=== PATIENT | female | born 1945 | race African-American/Black ===

== ENCOUNTER 2018-04-27 01:27 | Inpatient (IN) | payer MEDICARE ==
--- NOTE | 2018-04-27 01:42 | ED ---
SOB HPI - General Chief Complaint: Shortness of Breath Stated Complaint: SOB/COPD Time Seen by Provider: 04/27/18 01:41 Source: patient Mode of arrival: wheelchair Limitations: no limitations - History of Present Illness Initial Comments: That he is a pleasant 72-year-old -[place] female with a history of COPD who presents to the emergency department today for evaluation of persistent wheezing and shortness of breath despite using breathing treatments at home. Approximate 2 weeks ago patient moved back to [place] from [facility]. She reports that prior to moving she was having trouble breathing and was diagnosed with COPD exacerbation she was prescribed a 5 day course of oral prednisone which she took with minimal improvement. She reports that since returning to [place] she's had persistent shortness of breath and wheezing. Today she began experiencing pleuritic like chest pain and pain with deep inspiration which prompted her to come to the ER for reevaluation. Chest pain. She denies any cardiac history. - Related Data Allergies Allergy/AdvReac Type Severity Reaction Status Date / Time levofloxacin Allergy Swelling Verified 04/27/18 01:38 Review of Systems ROS Statement: Those systems with pertinent positive or pertinent negative responses have been documented in the HPI. ROS Other: All systems not noted in ROS Statement are negative. Past Medical History Past Medical History: Asthma, COPD, Hyperlipidemia, Hypertension History of Any Multi-Drug Resistant Organisms: None Reported Past Surgical History: Back Surgery, Orthopedic Surgery Additional Past Surgical History / Comment(s): abdominal , shoulder Past Psychological History: Anxiety Smoking Status: Never smoker Past Alcohol Use History: None Reported Past Drug Use History: None Reported General Exam - General Exam Comments Initial Comments: Physical Exam GENERAL: Patient is well-developed and well-nourished. Patient is nontoxic and well-hydrated and is in no distress. HENT: Normocephalic, Atraumatic. EYES: PERRL, EOMI PULMONARY: Mild expiratory wheezing in all lung shea CARDIOVASCULAR: There is a regular rate and rhythm without any murmurs gallops or rubs. No lower extremity edema ABDOMEN: Soft and nontender with normal bowel sounds. SKIN: Skin is clear with no lesions or rashes and otherwise unremarkable. : Deferred NEUROLOGIC: Patient is alert and oriented x3. Moving all extremities spontaneously MUSCULOSKELETAL: Normal extremities with adequate strength and full range of motion. No lower extremity swelling or edema. No calf tenderness. PSYCHIATRIC: Normal psychiatric evaluation. Limitations: no limitations Limitations: no limitations Course Vital Signs 04/27/18 04/27/18 04/27/18 01:33 02:22 02:30 Temperature 98.6 F Pulse Rate 81 81 81 Respiratory 16 Rate Blood Pressure 156/85 O2 Sat by Pulse 100 Oximetry 04/27/18 04/27/18 04:30 04:48 Temperature 98.7 F Pulse Rate 87 Respiratory 16 22 Rate Blood Pressure 130/87 O2 Sat by Pulse 100 Oximetry Medical Decision Making - Medical Decision Making Patient was seen and evaluated history is obtained from patient and daughter at bedside This is 70-year-old female COPD who was recently [place] and has persistent symptoms despite compliance with a prednisone Dosepak Patient had 2 breathing treatments prior to arrival History and physical exam are concerning for COPD exacerbation with expiratory wheezing and all lung shea. Given patient's advanced age history of hypertension hyperlipidemia and being prescribed Lasix in the past I will order an EKG to evaluate for any acute cardiac events EKG was obtained at 1:55 AM, rate is 85 rhythm is sinus this revealed PVCs, there is normal axis there are normal intervals, NV 138, QRS 76, QTC 4:30 there are no acute ST elevations or depressions Chest x-ray with no acute findings aside labs were relatively unremarkable Patient had persistent wheezing after breathing treatments she still has subje ctive shortness of breath but was never hypoxic tachycardic or tachypneic At this time I feel the patient suffering from CHF as well as COPD. Given that the patient is new to the area does not have established primary care cardiology or pulmonology do feel would be dangerous to discharge her home. At this time I will place the patient in observation for CHF and COPD exacerbations. We'll order [id number] DuoNeb's dose of Lasix and consults to cardiology and pulmonology. - Lab Data Result diagrams: 04/27/18 01:56 04/27/18 01:56 Lab Results 04/27/18 04/27/18 04/27/18 Range/Units 01:56 01:56 01:56 WBC 7.7 (3.8-10.6) k/uL RBC 3.68 L (3.80-5.40) m/uL Hgb 11.6 (11.4-16.0) gm/dL Hct 36.8 (34.0-46.0) % MCV 100.1 H (80.0-100.0) fL MCH 31.6 (25.0-35.0) pg MCHC 31.6 (31.0-37.0) g/dL RDW 15.4 (11.5-15.5) % Plt Count 258 (150-450) k/uL Neutrophils % 90 % Lymphocytes % 5 % Monocytes % 4 % Eosinophils % 1 % Basophils % 0 % Neutrophils # 6.9 (1.3-7.7) k/uL Lymphocytes # 0.4 L (1.0-4.8) k/uL Monocytes # 0.3 (0-1.0) k/uL Eosinophils # 0.1 (0-0.7) k/uL Basophils # 0.0 (0-0.2) k/uL Macrocytosis Slight PT (9.0-12.0) sec INR (<1.2) APTT (22.0-30.0) sec Sodium 140 (137-145) mmol/L Potassium 3.7 (3.5-5.1) mmol/L Chloride 108 H (98-107) mmol/L Carbon Dioxide 23 (22-30) mmol/L Anion Gap 9 mmol/L BUN 17 (7-17) mg/dL Creatinine 1.02 (0.52-1.04) mg/dL Est GFR (CKD-EPI)AfAm 64 (>60 ml/min/1.73 sqM) Est GFR (CKD-EPI)NonAf 55 (>60 ml/min/1.73 sqM) Glucose 97 (74-99) mg/dL Calcium 10.6 H (8.4-10.2) mg/dL Total Bilirubin 0.4 (0.2-1.3) mg/dL AST 16 (14-36) U/L ALT 13 (9-52) U/L Alkaline Phosphatase 66 (38-126) U/L Troponin I (0.000-0.034) ng/mL NT-Pro-B Natriuret Pep 1290 pg/mL Total Protein 6.7 (6.3-8.2) g/dL Albumin 3.7 (3.5-5.0) g/dL 04/27/18 04/27/18 Range/Units 01:56 01:56 WBC (3.8-10.6) k/uL RBC (3.80-5.40) m/uL Hgb (11.4-16.0) gm/dL Hct (34.0-46.0) % MCV (80.0-100.0) fL MCH (25.0-35.0) pg MCHC (31.0-37.0) g/dL RDW (11.5-15.5) % Plt Count (150-450) k/uL Neutrophils % % Lymphocytes % % Monocytes % % Eosinophils % % Basophils % % Neutrophils # (1.3-7.7) k/uL Lymphocytes # (1.0-4.8) k/uL Monocytes # (0-1.0) k/uL Eosinophils # (0-0.7) k/uL Basophils # (0-0.2) k/uL Macrocytosis PT 9.9 (9.0-12.0) sec INR 0.9 (<1.2) APTT 23.1 (22.0-30.0) sec Sodium (137-145) mmol/L Potassium (3.5-5.1) mmol/L Chloride (98-107) mmol/L Carbon Dioxide (22-30) mmol/L Anion Gap mmol/L BUN (7-17) mg/dL Creatinine (0.52-1.04) mg/dL Est GFR (CKD-EPI)AfAm (>60 ml/min/1.73 sqM) Est GFR (CKD-EPI)NonAf (>60 ml/min/1.73 sqM) Glucose (74-99) mg/dL Calcium (8.4-10.2) mg/dL Total Bilirubin (0.2-1.3) mg/dL AST (14-36) U/L ALT (9-52) U/L Alkaline Phosphatase (38-126) U/L Troponin I <0.012 (0.000-0.034) ng/mL NT-Pro-B Natriuret Pep pg/mL Total Protein (6.3-8.2) g/dL Albumin (3.5-5.0) g/dL Disposition Clinical Impression: Congestive heart failure, Acute exacerbation of chronic obstructive airways disease Disposition: ADMITTED IP TO THIS HOSP Condition: Stable Is patient prescribed a controlled substance at d/c from ED?: No
[2018-04-27] MEDS ORDERED: IPRATROPIUM-ALBUTEROL 3 ML NEB INHALATION STA (02:00)
[2018-04-27 02:24] LABS: Basophils % (A) 0 %; Eosinophils # (A) 0.1 k/uL (0-0.7); Eosinophils % (A) 1 %; HCT 36.8 % (34.0-46.0); HGB 11.6 gm/dL (11.4-16.0); Lymphocytes # (A) 0.4 k/uL (1.0-4.8); Lymphocytes % (A) 5 %; MCH 31.6 pg (25.0-35.0); MCHC 31.6 g/dL (31.0-37.0); MCV 100.1 fL (80.0-100.0); Macrocytosis Slight; Monocytes # (A) 0.3 k/uL (0-1.0); Monocytes % (A) 4 %; Neutrophils # (A) 6.9 k/uL (1.3-7.7); Neutrophils % (A) 90 %; Platelet Count 258 k/uL (150-450); RBC 3.68 m/uL (3.80-5.40); RDW 15.4 % (11.5-15.5); WBC 7.7 k/uL (3.8-10.6)
--- NOTE | 2018-04-27 02:27 | XR ---
EXAM: XR Chest, 2 Views CLINICAL HISTORY: difficulty breathing TECHNIQUE: Frontal and lateral views of the chest. COMPARISON: No relevant prior studies available. FINDINGS: Lungs: No focal consolidative process. No evidence of failure or edema. Pleural space: Unremarkable. No pleural effusions. No pneumothorax. Heart: Unremarkable. No cardiomegaly. Mediastinum: Unremarkable. Bones/joints: Dextroscoliosis. Vasculature: Tortuous/ectatic thoracic aorta with atherosclerotic disease IMPRESSION: No focal consolidative process or pleural effusions. Tortuous/ectatic thoracic aorta with atherosclerotic disease. No evidence of edema or failure.
[2018-04-27 02:40] LABS: INR 0.9 (<1.2); Partial Thromboplastin Time 23.1 sec (22.0-30.0); Prothrombin Time 9.9 sec (9.0-12.0)
[2018-04-27 03:02] LABS: Albumin 3.7 g/dL (3.5-5.0); Calcium 10.6 mg/dL (8.4-10.2); Potassium 3.7 mmol/L (3.5-5.1); Total Bilirubin 0.4 mg/dL (0.2-1.3); Total Protein 6.7 g/dL (6.3-8.2)
[2018-04-27] MEDS ORDERED: LORazepam 0.5 MG TAB PO STA (06:08)
[2018-04-27] MEDS ORDERED: ACETAMINOPHEN TAB 325 MG TAB PO STA (06:08)
[2018-04-27] MEDS ORDERED: predniSONE 20 MG TAB PO SCH (09:00)
[2018-04-27] MEDS ORDERED: ALBUTEROL INHALER 60 PUFF/8 GM INHALER INHALATION PRN (11:42)
[2018-04-27] MEDS ORDERED: TIOTROPIUM BROMIDE INHALATION PRN (11:42)
[2018-04-27] MEDS: IPRATROPIUM-ALBUTEROL 3 ML NEB INHALATION PRN ×2 (11:58→16:16)
[2018-04-27] MEDS ORDERED: ASPIRIN-ACET-CAFF 250-250-65MG 1 EACH TAB PO PRN (13:00)
--- NOTE | 2018-04-27 14:20 | ECHOF ---
Referral Reason:CHF MEASUREMENTS -------- HEIGHT: 165.1 cm WEIGHT: 63.5 kg BP: 145/84 RVIDd: 2.8 cm (< 3.3) IVSd: 1.0 cm (0.6 - 1.1) LVIDd: 3.9 cm (3.9 - 5.3) LVPWd: 1.0 cm (0.6 - 1.1) IVSs: 1.4 cm LVIDs: 2.9 cm LVPWs: 1.5 cm LA Diam: 4.3 cm (2.7 - 3.8) LAESV Index (A-L): 24.61 ml/m Ao Diam: 3.7 cm (2.0 - 3.7) AV Cusp: 1.5 cm (1.5 - 2.6) LA Diam: 3.2 cm (2.7 - 3.8) MV EXCURSION: 15.618 mm (> 18.000) MV EF SLOPE: 60 mm/s (70 - 150) EPSS: 0.6 cm MV E Jonathan: 0.73 m/s MV DecT: 257 ms MV A Jonathan: 0.76 m/s MV E/A Ratio: 0.96 RAP: 5.00 mmHg RVSP: 27.81 mmHg FINDINGS -------- Sinus rhythm. This was a technically good study. LV size, wall thickness and systolic function are normal, with an EF greater than 55%. The left dimitri tricular size is normal. The right ventricle is normal in size. The left atrium is mildly dilated. LA is midly dilated 29-33ml/m2. The right atrial size is normal. There is mild aortic valve sclerosis. There is no evidence of aortic regurgitation. Mild mitral annular calcification present. Mild mitral regurgitation is present. Mild tricuspid regurgitation present. There is no evidence of pulmonary hypertension. The right v entricular systolic pressure, as measured by Doppler, is 27.81mmHg. There is no pulmonic regurgitation present. The aortic root size is normal. Echo free space represents a pericardial fat pad. CONCLUSIONS -------- 1. LV size, wall thickness and systolic function are normal, with an EF greater than 55%. 2. The left ventricular size is normal. 3. The right ventricle is normal in size. 4. The left atrium is mildly dilated. 5. LA is midly dilated 29-33ml/m2. 6. The right atrial size is normal. 7. There is mild aortic valve sclerosis. 8. Mild mitral annular calcification present. 9. Mild mitral regurgitation is present. 10. Mild tricuspid regurgitation present. 11. There is no evidence of pulmonary hypertension. 12. The right ventricular systolic pressure, as measured by Doppler, is 27.81mmHg. 13. There is no pulmonic regurgitation present. 14. The aortic root size is normal. 15. Echo free space represents a pericardial fat pad. SENIOR PROGRAM PLANNER: Angeline Rodrigues RDCS
--- NOTE | 2018-04-27 14:55 | P.CRDCN ---
History of Present Illness History of present illness: This is a pleasant 72-year-old -Thai female past medical history significant for hypertension, asthma, COPD and dyslipidemia. 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 We've been asked to see her in consultation for suspicion of heart failure. The patient recently moved here from [place] and is staying with her 2 sisters. They brought her to the hospital secondary to shortness of breath, wheezing and altered mental status. Apparently in [place] she had been diagnosed with dementia. Her sisters are concerned that she is not eating and has had significant weight loss in the previous month and appears to her mental status has deteriorated significantly over a short period of time. Surgery also voicing concern about her medication profile and states that she is on too many medications and our concern that this may be causing her mental state. The patient states that she has been feeling short of breath over the previous 2 days and has been using nebulizers as well as updrafts with no significant relief of her shortness of breath. At times and she is coughing are trying to take in a deep breath she feels discomfort in her chest that is pleuritic in nature. She denies exertional chest discomfort. She denies associated dizziness, palpitations, nausea, vomiting or diaphoresis. She denies PND, orthopnea, fever or chills at home. EKG reveals sinus mechanism with ST and T wave abnormalities noted in the precordial leads. Heart rate of 85. There is no old for comparison. Chest x-ray is negative for an acute cardiopulmonary process no evidence of edema or failure. Laboratory data reviewed, WBC 7.7, hemoglobin 11.6, platelets 258, sodium 140, potassium 3.7, creatinine 1.02, cardiac enzymes negative 1, NT proBNP 1290. Current cardiac medications include aspirin 81 mg daily, diltiazem 300 mg daily, lovastatin 20 mg daily, Bumex 0.5 mg daily and metoprolol 25 mg daily. Echocardiogram obtained reveals preserved left ventricular systolic function with ejection fraction 55%, mild aortic valve sclerosis, mild mitral regurgitation and mild tricuspid regurgitation. At the time of my exam: CONSTITUTIONAL: Denies fever. Denies chills. EYES: Denies blurred vision. Denies vision changes. Denies eye pain. EARS, NOSE, MOUTH & THROAT: Denies headache. Denies sore throat. Denies ear pain. CARDIOVASCULAR: Denies chest pain. Complains of shortness of breath. Denies orthopnea. Denies PND. Denies palpitations. RESPIRATORY: Denies cough. GASTROINTESTINAL: Denies abdominal pain. Denies diarrhea. Denies constipation. Denies nausea. Denies vomiting. MUSCULOSKELETAL: Denies myalgias. INTEGUMENTARY: Denies pruitis. Denies rash. NEUROLOGIC: Denies numbness. Denies tingling. Denies weakness. PSYCHIATRIC: Denies anxiety. Denies depression. ENDOCRINE: Denies fatigue. Denies weight change. Denies polydipsia. Denies polyurina. GENITOURINARY: Denies burning, hematuria or urgency with micturation. HEMATOLOGIC: Denies history of anemia. Denies bleeding. Blood pressure 150/84 heart rate 70 afebrile maintaining oxygen saturation on room air GENERAL: This is a 72-year-old -Thai female in no apparent distress at the time of my examination. HEENT: Head is atraumatic, normocephalic. Pupils are equal, round. Sclerae anicteric. Conjunctivae are clear. Mucous membranes of the mouth are moist. Neck is supple. There is no jugular venous distention. No carotid bruit is heard. LUNGS: Course rhonchi with faint expiratory wheeze noted throughout. No rales. No chest wall tenderness is noted on palpation or with deep breathing. HEART: Regular rate and rhythm without murmurs, rubs or gallops. S1 and S2 heard. ABDOMEN: Soft, nontender. Bowel sounds are heard. No organomegaly noted. EXTREMITIES: No evidence of peripheral edema and no calf tenderness noted. VASCULAR: Radial and dorsalis pedis pulses palpated, no evidence of clubbing. NEUROLOGIC: Patient is awake, alert and oriented x3. ASSESSMENT Acute exacerbation of chronic COPD and asthma Hypertension Dyslipidemia Dementia with worsening altered mental status PLAN Clinically the patient is euvolemic with no evidence of fluid overload in the lungs or in the lower extremities. There is no JVD, PND or orthopnea. NTproBNP within normal limits for the patient's age. Check lipid profile. Thank you kindly for this consultation. Ongoing medical management per primary care team of altered mental status. Nurse Practitioner note has been reviewed, I agree with a documented findings and plan of care. Patient was seen and examined. Past Medical History Past Medical History: Asthma, COPD, Hyperlipidemia, Hypertension History of Any Multi-Drug Resistant Organisms: None Reported Past Surgical History: Back Surgery, Orthopedic Surgery Additional Past Surgical History / Comment(s): abdominal , shoulder Past Psychological History: Anxiety Smoking Status: Never smoker Past Alcohol Use History: None Reported Past Drug Use History: None Reported - Past Family History Mother Family Medical History: Hypertension Medications and Allergies Home Medications Medication Instructions Recorded Confirmed Type Albuterol Inhaler [Ventolin Hfa 2 puff INHALATION RT-Q6H PRN 04/27/18 04/27/18 History Inhaler] Aspirin EC [Ecotrin Low Dose] 81 mg PO DAILY 04/27/18 04/27/18 History Aspirin/Acetaminophen/Caffeine 1 tab PO BID PRN 04/27/18 04/27/18 History [Excedrin Migraine Caplet] Budesonide/Formoterol Fumarate 2 puff INHALATION RT-BID 04/27/18 04/27/18 History [Symbicort 160-4.5 Mcg Inhaler] Bumetanide 0.5 mg PO DAILY 04/27/18 04/27/18 History Diltiazem HCl [Cartia Xt] 300 mg PO DAILY 04/27/18 04/27/18 History Donepezil [Aricept] 5 mg PO HS 04/27/18 04/27/18 History Ferrous Sulfate [Feosol] 325 mg PO BID 04/27/18 04/27/18 History Fluticasone Nasal [place] [Flonase 1 spray EA NOSTRIL DAILY 04/27/18 04/27/18 History Nasal [place]] Loratadine [Claritin] 10 mg PO DAILY 04/27/18 04/27/18 History Lovastatin [Mevacor] 20 mg PO HS 04/27/18 04/27/18 History Megestrol Acetate 20 mg PO TID 04/27/18 04/27/18 History Metoprolol Tartrate 25 mg PO DAILY 04/27/18 04/27/18 History Naproxen [Naprosyn] 375 mg PO Q12HR PRN 04/27/18 04/27/18 History Pantoprazole Sodium 40 mg PO DAILY 04/27/18 04/27/18 History Tiotropium Bullard [Spiriva 1 spray INHALATION RT-DAILY PRN 04/27/18 04/27/18 History Respimat] busPIRone HCL 15 mg PO BID 04/27/18 04/27/18 History Allergies Allergy/AdvReac Type Severity Reaction Status Date / Time levofloxacin Allergy Swelling Verified 04/27/18 01:38 Physical Exam Vitals: Vital Signs Temp Pulse Pulse Resp BP BP Pulse Ox 04/27/18 12:10 77 04/27/18 11:59 75 04/27/18 06:36 97.9 F 70 20 150/84 100 04/27/18 06:20 98.3 F 70 18 100 04/27/18 04:48 22 04/27/18 04:30 98.7 F 87 16 130/87 100 04/27/18 02:30 81 04/27/18 02:22 81 04/27/18 01:33 98.6 F 81 16 156/85 100 Intake and Output 04/26/18 04/27/18 04/27/18 22:59 06:59 14:59 Intake Total 354 Balance 354 Intake: Oral 354 Other: # Voids 1 Weight 63.503 kg Results 04/27/18 01:56 04/27/18 01:56 Cardiac Enzymes 04/27/18 04/27/18 Range/Units 01:56 01:56 AST 16 (14-36) U/L Troponin I <0.012 (0.000-0.034) ng/mL Coagulation 04/27/18 Range/Units 01:56 PT 9.9 (9.0-12.0) sec APTT 23.1 (22.0-30.0) sec CBC 04/27/18 Range/Units 01:56 WBC 7.7 (3.8-10.6) k/uL RBC 3.68 L (3.80-5.40) m/uL Hgb 11.6 (11.4-16.0) gm/dL Hct 36.8 (34.0-46.0) % Plt Count 258 (150-450) k/uL Comprehensive Metabolic Panel 04/27/18 Range/Units 01:56 Sodium 140 (137-145) mmol/L Potassium 3.7 (3.5-5.1) mmol/L Chloride 108 H (98-107) mmol/L Carbon Dioxide 23 (22-30) mmol/L BUN 17 (7-17) mg/dL Creatinine 1.02 (0.52-1.04) mg/dL Glucose 97 (74-99) mg/dL Calcium 10.6 H (8.4-10.2) mg/dL AST 16 (14-36) U/L ALT 13 (9-52) U/L Alkaline Phosphatase 66 (38-126) U/L Total Protein 6.7 (6.3-8.2) g/dL Albumin 3.7 (3.5-5.0) g/dL Current Medications Generic Name Dose Route Start Last Admin Trade Name Freq PRN Reason Stop Dose Admin Acetaminophen/Aspirin/Caffeine 1 each 04/27/18 13:00 Excedrin PO BID PRN MIGRAINE HEADACHE Albuterol/Ipratropium 3 ml 04/27/18 05:13 04/27/18 11:58 Duoneb 0.5 Mg-3 Mg/3 Ml Soln INHALATION 3 ml RT-Q4H PRN Administration Shortness Of Breath Or Wheezing Aspirin 81 mg 04/28/18 09:00 Aspirin PO DAILY [facility] Atorvastatin Calcium 10 mg 04/27/18 21:00 Lipitor PO HS [facility] Budesonide 0.5 mg 04/27/18 20:00 Pulmicort INHALATION RT-BID [facility] Bumetanide 0.5 mg 04/28/18 09:00 Bumetanide PO DAILY [facility] Buspirone HCl 15 mg 04/27/18 21:00 Buspar PO BID [facility] Diltiazem HCl 300 mg 04/28/18 09:00 Cardizem Cd PO DAILY [facility] Donepezil HCl 5 mg 04/27/18 21:00 Aricept PO HS [facility] Ferrous Sulfate 325 mg 04/27/18 21:00 Feosol PO BID [facility] Fluticasone Propionate 1 spray 04/28/18 09:00 Flonase Nasal [place] EA NOSTRIL DAILY [facility] Formoterol Fumarate 20 mcg 04/27/18 20:00 Perforomist INHALATION RT-BID [facility] Loratadine 10 mg 04/28/18 09:00 Claritin PO DAILY [facility] Megestrol Acetate 20 mg 04/27/18 16:00 Megace PO TID [facility] Methylprednisolone Sodium Succinate 60 mg 04/27/18 13:45 Solu-Medrol IV Q6HR [facility] Metoprolol Tartrate 25 mg 04/28/18 09:00 Lopressor PO DAILY [facility] Naproxen 375 mg 04/27/18 11:42 Naprosyn PO Q12HR PRN Pain Pantoprazole Sodium 40 mg 04/28/18 07:30 Protonix PO AC-BRKFST MACI Prednisone 40 mg 04/27/18 09:00 04/27/18 11:00 PO 40 mg DAILY MACI Administration Intake and Output 04/26/18 04/27/18 04/27/18 22:59 06:59 14:59 Intake Total 354 Balance 354 Intake: Oral 354 Other: # Voids 1 Weight 63.503 kg 04/27/18 01:56 04/27/18 01:56
[2018-04-27] MEDS: MEGESTROL 40 MG TAB PO SCH ×2 (15:08→22:11)
[2018-04-27] MEDS: methylPREDNISolone SOD SUCCI 125 MG/2 ML VIAL IV SCH ×3 (15:08→23:21)
[2018-04-27 15:11] LABS: Cholesterol 194 mg/dL (<200); HDL Cholesterol 51 mg/dL (40-60); LDL Cholesterol,Calculated 127 mg/dL (0-99); Triglycerides 80 mg/dL (<150)
--- NOTE | 2018-04-27 17:36 | P.CNPUL ---
History of Present Illness Consult date: 04/27/18 Requesting physician: Beni Rose Reason for consult: dyspnea, COPD Chief complaint: Shortness of breath, cough, congestion History of present illness: Is a very pleasant 72-year-old female patient who was recently moved here to [place] from [facility]. She plans to establish with Dr. 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 She has a history of asthma/COPD and is prednisone dependent. His been maintained on Symbicort, Spiriva and albuterol. She also has a history of hyperlipidemia, hypertension, anxiety, dementia. She is a lifelong nonsmoker. She presented here to the emergency room yesterday with complaints of increasing shortness of breath, cough and congestion. His x-ray shows no focal consolidation or pleural effusions. No evidence of edema or failure. There is tortuous/ectatic thoracic aorta with atherosclerotic disease. Echocardiogram reveals preserved left ventricular systolic function with ejection fraction greater than 55%. White count 7.7. Hemoglobin 11.6. Creatinine 1.02. Troponin negative. ProBNP 1290. She is seen today in consultation on the regular medical floor. She is awake and alert in no acute distress. She is breathing a bit easier today as compared to yesterday. No significant cough or congestion. No fever, chills or night sweats. He is maintaining O2 saturations in the low 90s on room air. She's been afebrile. Hemodynamically stable. Review of Systems REVIEW OF SYSTEMS: CONSTITUTIONAL: Denies any recent significant weight loss or weight gain. EYES: Denies change in vision. EARS, NOSE, MOUTH, THROAT: Denies headaches, denies sore throat. CARDIOVASCULAR: Denies chest pain, palpitations or syncopal episodes. RESPIRATORY: Positive for shortness of breath, cough, congestion no hemoptysis. GASTROINTESTINAL: Denies change in appetite, denies abdominal pain GENITOURINARY: Denies hematuria, denies infections. MUSKULOSKELETAL: Denies pain, denies swelling. INTEGUMENTARY: Denies rash, denies eczema. NEUROLOGICAL: Denies recent memory loss, no recent seizure activity. PSYCHIATRIC: Denies anxiety, denies depression. HEMATOLOGIC/LYMPHATIC: Denies anemia, denies enlarged lymph nodes. Past Medical History Past Medical History: Asthma, COPD, Hyperlipidemia, Hypertension History of Any Multi-Drug Resistant Organisms: None Reported Past Surgical History: Back Surgery, Orthopedic Surgery Additional Past Surgical History / Comment(s): abdominal , shoulder Past Psychological History: Anxiety Smoking Status: Never smoker Past Alcohol Use History: None Reported Past Drug Use History: None Reported - Past Family History Mother Family Medical History: Hypertension Medications and Allergies Home Medications Medication Instructions Recorded Confirmed Type Albuterol Inhaler [Ventolin Hfa 2 puff INHALATION RT-Q6H PRN 04/27/18 04/27/18 History Inhaler] Aspirin EC [Ecotrin Low Dose] 81 mg PO DAILY 04/27/18 04/27/18 History Aspirin/Acetaminophen/Caffeine 1 tab PO BID PRN 04/27/18 04/27/18 History [Excedrin Migraine Caplet] Budesonide/Formoterol Fumarate 2 puff INHALATION RT-BID 04/27/18 04/27/18 History [Symbicort 160-4.5 Mcg Inhaler] Bumetanide 0.5 mg PO DAILY 04/27/18 04/27/18 History Diltiazem HCl [Cartia Xt] 300 mg PO DAILY 04/27/18 04/27/18 History Donepezil [Aricept] 5 mg PO HS 04/27/18 04/27/18 History Ferrous Sulfate [Feosol] 325 mg PO BID 04/27/18 04/27/18 History Fluticasone Nasal [place] [Flonase 1 spray EA NOSTRIL DAILY 04/27/18 04/27/18 History Nasal [place]] Loratadine [Claritin] 10 mg PO DAILY 04/27/18 04/27/18 History Lovastatin [Mevacor] 20 mg PO HS 04/27/18 04/27/18 History Megestrol Acetate 20 mg PO TID 04/27/18 04/27/18 History Metoprolol Tartrate 25 mg PO DAILY 04/27/18 04/27/18 History Naproxen [Naprosyn] 375 mg PO Q12HR PRN 04/27/18 04/27/18 History Pantoprazole Sodium 40 mg PO DAILY 04/27/18 04/27/18 History Tiotropium [place] [Spiriva 1 spray INHALATION RT-DAILY PRN 04/27/18 04/27/18 History Respimat] busPIRone HCL 15 mg PO BID 04/27/18 04/27/18 History Allergies Allergy/AdvReac Type Severity Reaction Status Date / Time levofloxacin Allergy Swelling Verified 04/27/18 01:38 Physical Exam Vitals: Vital Signs Temp Pulse Pulse Resp BP BP Pulse Ox 04/27/18 16:28 81 16 04/27/18 16:16 82 16 04/27/18 15:00 98.9 F 83 16 150/82 91 L 04/27/18 12:10 77 04/27/18 11:59 75 04/27/18 06:36 97.9 F 70 20 150/84 100 04/27/18 06:20 98.3 F 70 18 100 04/27/18 04:48 22 04/27/18 04:30 98.7 F 87 16 130/87 100 04/27/18 02:30 81 04/27/18 02:22 81 04/27/18 01:33 98.6 F 81 16 156/85 100 Intake and Output 04/27/18 04/27/18 04/27/18 06:59 14:59 22:59 Intake Total 354 Balance 354 Intake: Oral 354 Other: # Voids 1 Weight 63.503 kg 72 kg 63.503 kg GENERAL EXAM: Alert, active, comfortable in no apparent distress. Room air. HEAD: Normocephalic. EYES: Normal reaction of pupils, equal size. NOSE: Clear with pink turbinates. THROAT: No erythema or exudates. NECK: No masses, no JVD. CHEST: No chest wall deformity. LUNGS: Equal air entry with end expiratory wheeze, diminished CVS: S1 and S2 normal with no audible murmur, regular rhythm. ABDOMEN: No hepatosplenomegaly, normal bowel sounds, no guarding or rigidity. SPINE: No scoliosis or deformity SKIN: No rashes CENTRAL NERVOUS SYSTEM: No focal deficits, tone is normal in all 4 extremities. EXTREMITIES: There is no peripheral edema. No clubbing, no cyanosis. Peripheral pulses are intact. Results - Laboratory Findings CBC and BMP: 04/27/18 01:56 04/27/18 01:56 PT/INR, D-dimer PT 9.9 sec (9.0-12.0) 04/27/18 01:56 INR 0.9 (<1.2) 04/27/18 01:56 Abnormal lab findings: Abnormal Labs 04/27/18 04/27/18 04/27/18 01:56 01:56 01:56 RBC 3.68 L MCV 100.1 H Lymphocytes # 0.4 L Chloride 108 H Calcium 10.6 H LDL Cholesterol, Calc 127 H - Diagnostic Findings Chest x-ray: image reviewed (No acute pulmonary process.) Assessment and Plan Assessment: Impression: #1 Acute exacerbation of moderate persistent chronic bronchial asthma and chronic obstructive pulmonary disease in a lifelong nonsmoker however was exposed to secondhand smoke most of her life as well as 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 #2 Acute exacerbation of mild suspected chronic diastolic congestive heart failure. #3 Hypertension. #4 Hyperlipidemia. #5 History of dementia. #6 Anxiety. Plan: The patient was seen and evaluated by Dr. Marquez. Chest x-ray and labs were reviewed. We'll go ahead and treat her for her COPD exacerbation including IV Solu-Medrol, DuoNeb inhalations, Pulmicort and Perforomist inhalations. She would benefit from a outpatient workup in our office including pulmonary function testing to evaluate the severity of her suspected asthma/COPD and make further recommendations regarding maintenance medications. In the interim, we'll increase her activity as tolerated. We'll continue to follow and make further recommendations based on her clinical status. I, the cosigning physician, performed a history & physical examination of the patient. Lungs sounds bilateral end expiratory wheeze, few scattered rhonchi. Maintaining good O2 saturations in the 90s on room air. I discussed the assessment and plan of care with my nurse practitioner, Estelle Dumont. I attest to the above consultation as dictated by her. Time with Patient: Greater than 30
--- NOTE | 2018-04-27 19:28 | HP ---
HISTORY AND PHYSICAL DATE OF ADMISSION: 04/27/2018 DATE OF SERVICE: 04/27/2018 PRESENTING COMPLAINT: Short of breath, cough. HISTORY OF PRESENTING COMPLAINT: A very pleasant 72-year-old patient has moved here from [place], living with her daughter. Now will be following with getting established with Dr. Snider as a family doctor. Chronic stable medical conditions include hypertension, hyperlipidemia, anxiety, depression, arthritis, and GERD and cognitive impairment for which she takes Aricept. The patient has longstanding asthma. For more than a week, the patient is becoming increasingly short of breath with cough with green-yellow sputum. No fevers. No chills. Decreased appetite. Tired, run down. Bowel movements okay and finally decided to present to the ER, was started on bronchodilators. The patient's sister at the bedside. REVIEW OF SYSTEMS: CONSTITUTIONAL: Tired, decreased appetite. HEENT as above. RESPIRATORY: As above. CARDIOVASCULAR: None. GASTROINTESTINAL: Heartburn. GENITOURINARY: None. MUSCULOSKELETAL: Arthritic pain in the back and hips. DERMATOLOGICAL, HEMATOLOGIC, LYMPHATICS: None. PSYCHIATRY: Forgetful, anxiety, depression controlled. NEUROLOGICAL: None. PAST MEDICAL HISTORY: Of asthma, hypertension, hyperlipidemia, anxiety, depression, GERD, arthritis, cognitive impairment. PAST SURGICAL HISTORY: Back surgery, abdominal and shoulder surgery. SOCIAL HISTORY: Never smoked. No alcohol. Used to live in [place], just moved to town a short time ago. Lives with daughter. FAMILY HISTORY: Hypertension. HOME MEDICATIONS: 1. Symbicort 160/4.5, 2 puffs b.i.d. 2. Spiriva 1 puff daily p.r.n. 3. Ventolin 2 puffs q.6h p.r.n. 4. Protonix 40 mg p.o. daily. 5. Naproxen 375 p.o. q.12. 6. Ventolin 2 puffs q.6h p.r.n. 7. Protonix 40 mg a day. 8. Naproxen 375 p.o. q.12h p.r.n. 9. Metoprolol 25 mg p.o. daily. 10.Megace 20 mg p.o. t.i.d. 11.Mevacor 20 mg at bedtime. 12.Claritin 10 mg p.o. daily. 13.Flonase 1 spray each nostril daily. 14.Buspirone 50 mg p.o. b.i.d. 15.Iron 325 p.o. b.i.d. 16.Cardia XT 300 mg p.o. daily. 17.Bumex 0.5 mg p.o. daily. 18.Aricept 5 mg q.h.s. 19.Aspirin 81 mg p.o. daily. ALLERGIES: LEVAQUIN. PHYSICAL EXAMINATION: VITAL SIGNS: Vital signs on presentation, temperature 98.6, pulse 80, respiration 16, blood pressure 156/85, pulse ox 100 percent on room air. GENERAL APPEARANCE: Average build lying in bed, tired appearing. EYES: Pupils are equal. Conjunctivae normal. HEENT: External appearance of nose and ears normal. Oral cavity normal. NECK: JVD not raised. Mass not palpable. RESPIRATORY: Effort increased. LUNGS: Decreased breath sounds. Prolonged expiration and wheezing. Some scattered crackles. CARDIOVASCULAR: 1st and 2nd sounds normal. No edema. ABDOMEN: Soft, nontender. Liver and spleen not palpable. LYMPHATICS: No lymph nodes palpable in the neck and axilla. PSYCHIATRY: The patient is able to answer questions, but forgetful. NEUROLOGICAL: Pupils equal. Cranial nerves grossly intact. Power and sensation grossly intact. INVESTIGATIONS: White count 7.7, hemoglobin 11.6, potassium 3.7. BUN and creatinine is normal. EKG tracing personally reviewed by me shows some flipped T-waves in the anterior leads. Chest x-ray film personally reviewed by me shows borderline cardiomegaly, questionable infiltrate. ASSESSMENT: 1. Acute exacerbation of moderate persistent asthma. The patient is a nonsmoker. 2. Acute tracheobronchitis. 3. Hyperlipidemia. 4. Essential hypertension. 5. Anxiety and depression, not otherwise specified. 6. Primary osteoarthritis multiple joints. 7. Gastroesophageal reflux disease. 8. Moderate cognitive impairment. PLAN: Home medications are resumed. Patient is started on bronchodilators and steroids, inhaled steroids. Lovenox for DVT prophylaxis. Care was discussed with the patient's daughter at bedside. Questions were answered. Copy to Dr. Snider. MMODL / MIRA: [id number] /
[2018-04-27] MEDS ORDERED: SYMBICORT 160-4.5 MCG INHALER INHALATION SCH (20:00)
[2018-04-27 20:11] LABS: Glucose,Whole Blood 140 mg/dL (75-99)
[2018-04-27] MEDS: FORMOTEROL FUMARATE 20 MCG/2 ML NEBU INHALATION SCH (20:52)
[2018-04-27] MEDS: IPRATROPIUM-ALBUTEROL 3 ML NEB INHALATION SCH (20:52)
[2018-04-27] MEDS: BUDESONIDE 0.5 MG/2 ML NEBU INHALATION SCH (20:52)
[2018-04-27] MEDS: ATORVASTATIN 10 MG TAB PO SCH (20:56)
[2018-04-27] MEDS: ENOXAPARIN 40 MG/0.4 ML SYRINGE SQ SCH (20:56)
[2018-04-27] MEDS: FERROUS SULFATE 325 MG TAB PO SCH (20:56)
[2018-04-27] MEDS: busPIRone HCl 5 MG TAB PO SCH (20:56)
[2018-04-27] MEDS: DONEPEZIL 5 MG TAB PO SCH (21:14)
[2018-04-27] MEDS: CEFDINIR 300 MG CAP PO SCH (21:14)
[2018-04-28] MEDS: IPRATROPIUM-ALBUTEROL 3 ML NEB INHALATION SCH ×6 (00:24→20:55)
[2018-04-28] MEDS: methylPREDNISolone SOD SUCCI 125 MG/2 ML VIAL IV SCH ×4 (05:31→23:19)
[2018-04-28] MEDS: FORMOTEROL FUMARATE 20 MCG/2 ML NEBU INHALATION SCH ×2 (08:04→20:55)
[2018-04-28] MEDS: BUDESONIDE 0.5 MG/2 ML NEBU INHALATION SCH ×2 (08:04→20:55)
[2018-04-28] MEDS: MEGESTROL 40 MG TAB PO SCH ×3 (08:40→22:01)
[2018-04-28] MEDS: CEFDINIR 300 MG CAP PO SCH ×2 (08:40→20:18)
[2018-04-28] MEDS: FERROUS SULFATE 325 MG TAB PO SCH ×2 (08:40→20:18)
[2018-04-28] MEDS: ENOXAPARIN 40 MG/0.4 ML SYRINGE SQ SCH (08:40)
[2018-04-28] MEDS: busPIRone HCl 5 MG TAB PO SCH ×2 (08:40→20:18)
[2018-04-28] MEDS: DILTIAZEM CD 300 MG CAP.ER.24H PO SCH (08:41)
[2018-04-28] MEDS: LORATADINE 10 MG TAB PO SCH (08:41)
[2018-04-28] MEDS: FLUTICASONE 50MCG/SPRAY NASAL 16GM EA NOSTRIL SCH (08:41)
[2018-04-28] MEDS: BUMETANIDE 0.5 MG TABLET PO SCH (08:41)
[2018-04-28] MEDS: ASPIRIN 81 MG PO SCH (08:41)
[2018-04-28] MEDS: PANTOPRAZOLE 40 MG TABLET PO SCH (08:41)
[2018-04-28] MEDS ORDERED: METOPROLOL TARTRATE 25 MG TAB PO SCH (09:00)
--- NOTE | 2018-04-28 16:50 | P.PN ---
Subjective Progress Note Date: 04/28/18 Principal diagnosis: Acute exacerbation of moderate persistent chronic bronchial asthma. Is a very pleasant 72-year-old female patient who was recently moved here to [place] from [facility]. She plans to establish with Dr. Snider and Dr. 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 She has a history of asthma/COPD and is prednisone dependent. His been maintained on Symbicort, Spiriva and albuterol. She also has a history of hyperlipidemia, hypertension, anxiety, dementia. She is a lifelong nonsmoker. She presented here to the emergency room yesterday with complaints of increasing shortness of breath, cough and congestion. His x-ray shows no focal consolidation or pleural effusions. No evidence of edema or failure. There is tortuous/ectatic thoracic aorta with atherosclerotic disease. Echocardiogram reveals preserved left ventricular systolic function with ejection fraction greater than 55%. White count 7.7. Hemoglobin 11.6. Creatinine 1.02. Troponin negative. ProBNP 1290. She is seen today in consultation on the regular medical floor. She is awake and alert in no acute distress. She is breathing a bit easier today as compared to yesterday. No significant cough or congestion. No fever, chills or night sweats. He is maintaining O2 saturations in the low 90s on room air. She's been afebrile. Hemodynamically stable. The patient is seen today 04/28/2018 in follow-up on the regular medical floor. She is currently awake and alert in no acute distress. Resting comfortably in bed. She is stating she is breathing better today as compared to yesterday. Not quite back to her baseline. She is maintaining good O2 saturations in the upper 90s on room air. She's afebrile. Hemodynamically stable. The patient is currently on DuoNeb inhalations, Pulmicort and Perforomist inhalations, IV Solu- Medrol and Omnicef. Objective - Vital Signs Vital signs: Vital Signs Temp 98.9 F 04/28/18 15:34 Pulse 75 04/28/18 15:34 Resp 19 04/28/18 15:34 BP 127/74 04/28/18 15:34 Pulse Ox 98 04/28/18 15:34 Intake & Output 04/27/18 04/28/18 04/28/18 18:59 06:59 18:59 Intake Total 354 280 Balance 354 280 Weight 63.503 kg 71.5 kg Intake: Oral 354 280 Other: Voiding Method Toilet # Voids 1 - Exam GENERAL EXAM: Alert, active, comfortable in no apparent distress. Room air. HEAD: Normocephalic. EYES: Normal reaction of pupils, equal size. NOSE: Clear with pink turbinates. THROAT: No erythema or exudates. NECK: No masses, no JVD. CHEST: No chest wall deformity. LUNGS: Equal air entry with end expiratory wheeze, diminished CVS: S1 and S2 normal with no audible murmur, regular rhythm. ABDOMEN: No hepatosplenomegaly, normal bowel sounds, no guarding or rigidity. SPINE: No scoliosis or deformity SKIN: No rashes CENTRAL NERVOUS SYSTEM: No focal deficits, tone is normal in all 4 extremities. EXTREMITIES: There is no peripheral edema. No clubbing, no cyanosis. Peripheral pulses are intact. 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 #2 Acute exacerbation of mild suspected chronic diastolic congestive heart failure. #3 Hypertension. #4 Hyperlipidemia. #5 History of dementia. #6 Anxiety. Plan: The patient was seen and evaluated by Dr. Marquez. She is improved today as compared to yesterday. Continue with current treatment plan. We'll continue to follow and make further recommendations based on her clinical status. I, the cosigning physician, performed a history & physical examination of the patient. Lungs sounds bilateral end expiratory wheeze, few scattered rhonchi. Maintaining good O2 saturations in the 90s on room air. I discussed the assessment and plan of care with my nurse practitioner, Estelle Dumont. I attest to the above consultation as dictated by her.
[2018-04-28] MEDS: ATORVASTATIN 10 MG TAB PO SCH (20:17)
[2018-04-28] MEDS: DONEPEZIL 5 MG TAB PO SCH (20:19)
[2018-04-29] MEDS: IPRATROPIUM-ALBUTEROL 3 ML NEB INHALATION SCH ×6 (00:42→21:09)
--- NOTE | 2018-04-29 03:56 | PN ---
PROGRESS NOTE DATE OF SERVICE: 04/28/2018 PRESENTING COMPLAINT: Short of breath. INTERVAL HISTORY: Patient admitted with acute asthma exacerbation. Breathing a bit better. Still got a cough. No sputum. Feels a shade better. Did tolerate some diet. Sitting up on bed, tired. REVIEW OF SYSTEMS: Done for constitutional, cardiovascular, GI, pulmonary and findings as above. CURRENT MEDICATIONS: Reviewed that include IV Solu-Medrol, DuoNeb and Omnicef. PHYSICAL EXAMINATION: Temperature 97.7 pulse 85, respiratory 18, blood pressure 135/82, pulse ox 98% on room. GENERAL APPEARANCE: Sitting up, awake, tired. EYES: Pupils equal. Conjunctivae normal. NECK: JVD not raised. Mass not palpable. Respiratory effort increased. LUNGS: Decreased breath sounds, prolonged expiration, expiratory wheezing. CARDIOVASCULAR: 1st and 2nd heart sounds normal. No edema. ABDOMEN: Soft, nontender. Liver and spleen not palpable. PSYCHIATRY: Awake, answering simple questions. INVESTIGATIONS: Accu-Cheks are noted. ASSESSMENT: 1. Acute exacerbation of moderate persistent asthma in a nonsmoker, slow to respond. 2. Acute tracheobronchitis. 3. Hyperlipidemia. 4. Essential hypertension. 5. Anxiety, depression, not otherwise specified. 6. Primary osteoarthritis, multiple joints. 7. Gastroesophageal reflux disease. 8. Moderate cognitive impairment. 9. Hyperglycemia secondary to steroids. No diabetes mellitus type 2. PLAN: Continue medication. Bronchodilators, IV steroids. The patient encouraged to be out of bed. Follow. MMODL / IJN: [id number] /
[2018-04-29] MEDS: methylPREDNISolone SOD SUCCI 125 MG/2 ML VIAL IV SCH ×3 (05:22→18:48)
[2018-04-29] MEDS: LORATADINE 10 MG TAB PO SCH (07:37)
[2018-04-29] MEDS: FERROUS SULFATE 325 MG TAB PO SCH ×2 (07:37→21:49)
[2018-04-29] MEDS: MEGESTROL 40 MG TAB PO SCH ×3 (07:37→21:50)
[2018-04-29] MEDS: ASPIRIN 81 MG PO SCH (07:38)
[2018-04-29] MEDS: PANTOPRAZOLE 40 MG TABLET PO SCH (07:38)
[2018-04-29] MEDS: busPIRone HCl 5 MG TAB PO SCH ×2 (07:38→21:48)
[2018-04-29] MEDS: CEFDINIR 300 MG CAP PO SCH ×2 (07:38→21:49)
[2018-04-29] MEDS: BUMETANIDE 0.5 MG TABLET PO SCH (07:39)
[2018-04-29] MEDS: DILTIAZEM CD 300 MG CAP.ER.24H PO SCH (07:39)
[2018-04-29] MEDS: FLUTICASONE 50MCG/SPRAY NASAL 16GM EA NOSTRIL SCH (07:40)
[2018-04-29] MEDS: ENOXAPARIN 40 MG/0.4 ML SYRINGE SQ SCH (07:40)
[2018-04-29] MEDS: FORMOTEROL FUMARATE 20 MCG/2 ML NEBU INHALATION SCH ×2 (08:21→21:09)
[2018-04-29] MEDS: BUDESONIDE 0.5 MG/2 ML NEBU INHALATION SCH ×2 (08:21→21:09)
[2018-04-29] MEDS: METOPROLOL TARTRATE 25 MG TAB PO SCH (15:05)
--- NOTE | 2018-04-29 15:54 | XR ---
EXAMINATION TYPE: XR chest 2V DATE OF EXAM: 04/29/2018 COMPARISON: Chest x-ray from 2 days ago. HISTORY: Shortness of breath. TECHNIQUE: Frontal and lateral views of the chest are obtained. FINDINGS: There is chronic parenchymal change without suspicious focal air space opacity, pleural ef fusion, or pneumothorax seen. The cardiac silhouette size is upper limits of normal with atheroscler otic and ectatic aorta. Underlying dextroconvex scoliosis centered in the lower thoracic spine is pre sent. Osseous structures are demineralized. Cholecystectomy clips are redemonstrated. IMPRESSION: Chronic changes without acute pulmonary process.
--- NOTE | 2018-04-29 15:59 | P.PN ---
Subjective Progress Note Date: 04/29/18 Principal diagnosis: Acute exacerbation of moderate persistent chronic bronchial asthma. Is a very pleasant 72-year-old female patient who was recently moved here to [place] from [facility]. 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 She has a history of asthma/COPD and is prednisone dependent. His been maintained on Symbicort, Spiriva and albuterol. She also has a history of hyperlipidemia, hypertension, anxiety, dementia. She is a lifelong nonsmoker. She presented here to the emergency room yesterday with complaints of increasing shortness of breath, cough and congestion. His x-ray shows no focal consolidation or pleural effusions. No evidence of edema or failure. There is tortuous/ectatic thoracic aorta with atherosclerotic disease. Echocardiogram reveals preserved left ventricular systolic function with ejection fraction greater than 55%. White count 7.7. Hemoglobin 11.6. Creatinine 1.02. Troponin negative. ProBNP 1290. She is seen today in consultation on the regular medical floor. She is awake and alert in no acute distress. She is breathing a bit easier today as compared to yesterday. No significant cough or congestion. No fever, chills or night sweats. He is maintaining O2 saturations in the low 90s on room air. She's been afebrile. Hemodynamically stable. The patient is seen today 04/28/2018 in follow-up on the regular medical floor. She is currently awake and alert in no acute distress. Resting comfortably in bed. She is stating she is breathing better today as compared to yesterday. Not quite back to her baseline. She is maintaining good O2 saturations in the upper 90s on room air. She's afebrile. Hemodynamically stable. The patient is currently on DuoNeb inhalations, Pulmicort and Perforomist inhalations, IV Solu- Medrol and Omnicef. the patient is seen today 04/29/2017 in follow-up on the regular medical floor. She is currently sitting up in bed. Her breathing is improved today as compared to yesterday.today's chest x-ray shows chronic changes but no acute pulmonary process. She is less bronchospastic and wheezy today. She is maintaining good O2 saturations in the high 90s on room air. She's been afebrile. Hemodynamically stable. Objective - Vital Signs Vital signs: Vital Signs Temp 97.8 F 04/29/18 14:08 Pulse 81 04/29/18 14:08 Resp 20 04/29/18 14:08 BP 132/80 04/29/18 14:08 Pulse Ox 99 04/29/18 14:08 Intake & Output 04/28/18 04/29/18 04/29/18 18:59 06:59 18:59 Intake Total 560 Balance 560 Weight 70 kg Intake: Oral 560 Other: Voiding Method Toilet Toilet # Voids 2 1 - Exam GENERAL EXAM: Alert, active, comfortable in no apparent distress. Room air. HEAD: Normocephalic. EYES: Normal reaction of pupils, equal size. NOSE: Clear with pink turbinates. THROAT: No erythema or exudates. NECK: No masses, no JVD. CHEST: No chest wall deformity. LUNGS: Equal air entry with end expiratory wheeze, diminished CVS: S1 and S2 normal with no audible murmur, regular rhythm. ABDOMEN: No hepatosplenomegaly, normal bowel sounds, no guarding or rigidity. SPINE: No scoliosis or deformity SKIN: No rashes CENTRAL NERVOUS SYSTEM: No focal deficits, tone is normal in all 4 extremities. EXTREMITIES: There is no peripheral edema. No clubbing, no cyanosis. Peripheral pulses are intact. 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 #2 Acute exacerbation of mild suspected chronic diastolic congestive heart failure. #3 Hypertension. #4 Hyperlipidemia. #5 History of dementia. #6 Anxiety. Plan: The patient was seen and evaluated by Dr. Marquez. chest x-ray shows no acute pulmonary process.She is improved today as compared to yesterday. Continue with current treatment plan. We'll continue to follow and make further recommendations based on her clinical status. Probable discharge in the a.m. I, the cosigning physician, performed a history & physical examination of the patient. Lungs sounds bilateral end expiratory wheeze, few scattered rhonchi. Maintaining good O2 saturations in the 90s on 2 L/m per nasal cannula. I discussed the assessment and plan of care with my nurse practitioner, Estelle Dumont. I attest to the above consultation as dictated by her.
[2018-04-29 16:52] LABS: Glucose,Whole Blood 81 mg/dL (75-99)
[2018-04-29 20:54] LABS: Glucose,Whole Blood 116 mg/dL (75-99)
[2018-04-29] MEDS: ATORVASTATIN 10 MG TAB PO SCH (21:48)
[2018-04-29] MEDS: DONEPEZIL 5 MG TAB PO SCH (22:11)
[2018-04-29] MEDS ORDERED: RX INFO: IV CONTRAST WAS GIVEN 1 EACH MISC MISCELLANE PRN (22:45)
[2018-04-30] MEDS: methylPREDNISolone SOD SUCCI 40 MG/ML 1 ML VIAL IV SCH ×4 (00:40→23:35)
--- NOTE | 2018-04-30 00:51 | PN ---
PROGRESS NOTE DATE OF SERVICE: April 29, 2018. PRESENTING COMPLAINT: Short of breath. INTERVAL HISTORY: Patient admitted with acute asthma exacerbation. More short of breath today. The coughing started. Feeling more tired. No chest pain. Sitting up. REVIEW OF SYSTEMS: Done for constitutional, cardiovascular, GI, pulmonary and relevant findings as above. CURRENT MEDICATIONS: Reviewed that include DuoNeb, inhaled and IV. PHYSICAL EXAMINATION: VITAL SIGNS: Temperature 97.8, pulse 51, respiration 26, blood pressure 132/80, pulse ox 99% on 2 L. GENERAL APPEARANCE: Sitting up, no short of breath, eyes pupils are normal. NECK: JVD not raised. Mass not palpable. RESPIRATORY: Effort increased. LUNGS: Decreased breath sounds. Prolonged expiration. Less wheezing compared to yesterday. CARDIOVASCULAR: 1st and 2nd sounds normal. No edema. ABDOMEN: Soft, nontender. Liver and spleen not palpable. PSYCHIATRY: Awake, answering questions. INVESTIGATIONS: Accu-Cheks are noted. Chest x-ray film reviewed from today no different. EKG showed sinus rhythm. ASSESSMENT: 1. Patient is more short of breath from today but actually lungs sounds a bit better. Will rule out acute pulmonary embolism. 2. Acute exacerbation of moderate persistent asthma, nonsmoker, slow to respond. 3. Acute tracheobronchitis. 4. Hyperlipidemia. 5. Essential hypertension. 6. Anxiety and depression, not otherwise specified. 7. Primary osteoarthritis multiple joints. 8. Gastroesophageal reflux disease. 9. Moderate cognitive impairment probably from late onset probably from probably from Alzheimer's dementia. 10.Hyperglycemia secondary to steroids. diabetes mellitus type 2. PLAN: The patient is moved to the telemetry floor. We will order a CT scan of the chest to rule out PE. Continue with steroids, bronchodilators. MMODL / IJN: [id number] /
[2018-04-30] MEDS: IPRATROPIUM-ALBUTEROL 3 ML NEB INHALATION SCH ×6 (00:56→20:28)
--- NOTE | 2018-04-30 00:56 | CT ---
EXAM: CT Angiography Chest With Intravenous Contrast CLINICAL HISTORY: PE TECHNIQUE: Axial computed tomographic angiography images of the chest with intravenous contrast using pulmonary embolism protocol. DLP is 280.3 mGy- cm. This CT exam was performed using one or more of the following dose reduction techniques: automated exposure control, adjustment of the mA and/or kV according to patient size, and/or use of iterative reconstruction technique. MIP reconstructed images were created and reviewed. Coronal and sagittal reformatted images were created and reviewed. COMPARISON: No relevant prior studies available. FINDINGS: Pulmonary arteries: Unremarkable. No pulmonary embolism. Aorta: No acute findings. No thoracic aortic aneurysm. Lungs: Bronchiectasis. No mass. No consolidation. Linear scarring noted in the right lung base Pleural space: Unremarkable. No significant effusion. No pneumothorax. Heart: Unremarkable. No cardiomegaly. No significant pericardial effusion. No evidence of RV dysfunction. Bones/joints: No acute fracture. No dislocation. Soft tissues: Unremarkable. Lymph nodes: Unremarkable. No enlarged lymph nodes. IMPRESSION: No pulmonary embolism. Chronic interstitial changes with bronchiectasis
[2018-04-30 05:57] LABS: Glucose,Whole Blood 110 mg/dL (75-99)
[2018-04-30] MEDS: PANTOPRAZOLE 40 MG TABLET PO SCH (07:04)
[2018-04-30] MEDS: MEGESTROL 40 MG TAB PO SCH ×3 (09:13→20:30)
[2018-04-30] MEDS: LORATADINE 10 MG TAB PO SCH (09:13)
[2018-04-30] MEDS: FERROUS SULFATE 325 MG TAB PO SCH ×2 (09:13→20:29)
[2018-04-30] MEDS: CEFDINIR 300 MG CAP PO SCH (09:13)
[2018-04-30] MEDS: METOPROLOL TARTRATE 25 MG TAB PO SCH (09:13)
[2018-04-30] MEDS: ENOXAPARIN 40 MG/0.4 ML SYRINGE SQ SCH (09:14)
[2018-04-30] MEDS: ASPIRIN 81 MG PO SCH (09:14)
[2018-04-30] MEDS: DILTIAZEM CD 300 MG CAP.ER.24H PO SCH (09:14)
[2018-04-30] MEDS: FORMOTEROL FUMARATE 20 MCG/2 ML NEBU INHALATION SCH ×2 (09:47→20:28)
[2018-04-30] MEDS: BUDESONIDE 0.5 MG/2 ML NEBU INHALATION SCH ×2 (09:47→20:28)
[2018-04-30 10:24] LABS: Basophils % (A) 0 %; Eosinophils # (A) 0.2 k/uL (0-0.7); Eosinophils % (A) 1 %; HCT 39.4 % (34.0-46.0); HGB 12.1 gm/dL (11.4-16.0); Hypochromasia Slight; Lymphocytes # (A) 0.8 k/uL (1.0-4.8); Lymphocytes % (A) 4 %; MCH 30.5 pg (25.0-35.0); MCHC 30.7 g/dL (31.0-37.0); MCV 99.2 fL (80.0-100.0); Macrocytosis Slight; Mean Platelet Volume 7.8; Monocytes # (A) 0.6 k/uL (0-1.0); Monocytes % (A) 3 %; Neutrophils # (A) 17.6 k/uL (1.3-7.7); Neutrophils % (A) 91 %; Platelet Count 263 k/uL (150-450); RBC 3.97 m/uL (3.80-5.40); WBC 19.4 k/uL (3.8-10.6)
[2018-04-30 10:34] LABS: Calcium 10.5 mg/dL (8.4-10.2)
[2018-04-30 10:36] LABS: Potassium 3.6 mmol/L (3.5-5.1)
[2018-04-30 11:32] LABS: Glucose,Whole Blood 118 mg/dL (75-99)
--- NOTE | 2018-04-30 12:41 | P.PN ---
Subjective Progress Note Date: 04/30/18 Is a very pleasant 72-year-old female patient who was recently moved here to [place] from [facility]. She plans to establish with Dr. 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 She has a history of asthma/COPD and is prednisone dependent. His been maintained on Symbicort, Spiriva and albuterol. She also has a history of hyperlipidemia, hypertension, anxiety, dementia. She is a lifelong nonsmoker. She presented here to the emergency room yesterday with complaints of increasing shortness of breath, cough and congestion. His x-ray shows no focal consolidation or pleural effusions. No evidence of edema or failure. There is tortuous/ectatic thoracic aorta with atherosclerotic disease. Echocardiogram reveals preserved left ventricular systolic function with ejection fraction greater than 55%. White count 7.7. Hemoglobin 11.6. Creatinine 1.02. Troponin negative. ProBNP 1290. She is seen today in consultation on the regular medical floor. She is awake and alert in no acute distress. She is breathing a bit easier today as compared to yesterday. No significant cough or congestion. No fever, chills or night sweats. He is maintaining O2 saturations in the low 90s on room air. She's been afebrile. Hemodynamically stable. The patient is seen today 04/28/2018 in follow-up on the regular medical floor. She is currently awake and alert in no acute distress. Resting comfortably in bed. She is stating she is breathing better today as compared to yesterday. Not quite back to her baseline. She is maintaining good O2 saturations in the upper 90s on room air. She's afebrile. Hemodynamically stable. The patient is currently on DuoNeb inhalations, Pulmicort and Perforomist inhalations, IV Solu- Medrol and Omnicef. the patient is seen today 04/29/2017 in follow-up on the regular medical floor. She is currently sitting up in bed. Her breathing is improved today as compared to yesterday.today's chest x-ray shows chronic changes but no acute pulmonary process. She is less bronchospastic and wheezy today. She is maintaining good O2 saturations in the high 90s on room air. She's been afebrile. Hemodynamically stable. 04/30/2018 I'm seeing this patient for a follow-up. Unfortunately she is taking time to recover. Her COPD/asthma still active. We have tapered down her Solu- Medrol to 40 mg every 8 hours. She is also on a combination of Perforomist and Pulmicort neb last treatment twice a day. Not coughing up much sputum. No nausea. No vomiting. No diarrhea. No altered mentation. No pleurisy. No hemoptysis. She has done some progress however she has not completely normalized. Her baseline is not known to me at this point. She has significant history of COPD and she has been steroid dependent for many years. Scan of the chest was also completed yesterday. The CAT scan showed no evidence of any pulmonary embolism. There was bronchiectasis especially in the lower lung shea bilaterally and the patient has a scarring noted in the right lung base. There is also some limited emphysematous changes bilaterally. Objective - Vital Signs Vital signs: Vital Signs Temp 98.0 F 04/30/18 12:00 Pulse 76 04/30/18 12:00 Resp 18 04/30/18 12:00 BP 121/72 04/30/18 12:00 Pulse Ox 100 04/30/18 12:00 Intake & Output 04/29/18 04/30/18 04/30/18 18:59 06:59 18:59 Intake Total 120 Balance 120 Weight 63.5 kg Intake: Oral 120 Other: Voiding Method Toilet Toilet Toilet # Voids 0 - Exam GENERAL EXAM: Alert, active, comfortable in no apparent distress. Room air. HEAD: Normocephalic. EYES: Normal reaction of pupils, equal size. NOSE: Clear with pink turbinates. THROAT: No erythema or exudates. NECK: No masses, no JVD. CHEST: No chest wall deformity. LUNGS: Equal air entry with end expiratory wheeze, diminished CVS: S1 and S2 normal with no audible murmur, regular rhythm. ABDOMEN: No hepatosplenomegaly, normal bowel sounds, no guarding or rigidity. SPINE: No scoliosis or deformity SKIN: No rashes CENTRAL NERVOUS SYSTEM: No focal deficits, tone is normal in all 4 extremities. EXTREMITIES: There is no peripheral edema. No clubbing, no cyanosis. Periph eral pulses are intact. - Labs CBC & Chem 7: 04/30/18 10:00 04/30/18 10:00 Labs: Abnormal Lab Results - Last 24 Hours (Table) 04/29/18 04/30/18 04/30/18 Range/Units 20:52 05:55 10:00 WBC 19.4 H (3.8-10.6) k/uL MCHC 30.7 L (31.0-37.0) g/dL Neutrophils # 17.6 H (1.3-7.7) k/uL Lymphocytes # 0.8 L (1.0-4.8) k/uL Carbon Dioxide (22-30) mmol/L BUN (7-17) mg/dL Creatinine (0.52-1.04) mg/dL Glucose (74-99) mg/dL POC Glucose (mg/dL) 116 H 110 H (75-99) mg/dL Calcium (8.4-10.2) mg/dL 04/30/18 04/30/18 Range/Units 10:00 11:30 WBC (3.8-10.6) k/uL MCHC (31.0-37.0) g/dL Neutrophils # (1.3-7.7) k/uL Lymphocytes # (1.0-4.8) k/uL Carbon Dioxide 21 L (22-30) mmol/L BUN 27 H (7-17) mg/dL Creatinine 1.17 H (0.52-1.04) mg/dL Glucose 130 H (74-99) mg/dL POC Glucose (mg/dL) 118 H (75-99) mg/dL Calcium 10.5 H (8.4-10.2) mg/dL Assessment and Plan Plan: #1 Acute exacerbation of bronchiectasis and chronic obstructive pulmonary disease in a lifelong nonsmoker however was exposed to secondhand smoke most of her life as well as 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 I and chronic bronchial asthma cannot be completely excluded. The predominant pathology on the CAT scan of the chest is bronchiectasis. #2 Acute exacerbation of mild suspected chronic diastolic congestive heart failure. #3 Hypertension. #4 Hyperlipidemia. #5 History of dementia. #6 Anxiety. Plan I reviewed the CAT scan of the chest and there is predominant bronchiectasis in the mid in the lower lung shea bilaterally along with some mild his COPD changes. The predominant pathology seems to be bronchiectasis. Recovery is slow. Continue same treatment. Consider underlying infections or any other Remitting factors for ongoing shortness of breath and COPD exacerbation. She may need a bronchoscopy if she continues to be quite short of breath and her course of recovery remains prolonged. The same treatment for now.
[2018-04-30] MEDS: NAPROXEN 250 MG TAB PO PRN (13:57)
--- NOTE | 2018-04-30 14:18 | PN ---
PROGRESS NOTE Mrs Dobbins is a lady who with has history of bronchial asthma, tracheobronchitis, and fairly well preserved LV systolic function. Yesterday, Dr. Rose asked me to review an EKG because of some abnormality which he thought was a Wenckebach phenomena. On reviewing the EKG, she was in a sinus rhythm with sinus arrhythmia and isolated PACs and PVCs. Apparently she was more short of breath and transferred to the telemetry unit. She is in a sinus rhythm. No significant arrhythmia is noted. Her breathing is somewhat difficult today. She is short of breath and she has what seems to be wheezing and tracheobronchitis type picture. Vital signs stable. S1-S2 heard normally. No significant murmurs. Lungs reveal scattered rhonchi. More expiratory. Abdomen and lower extremity exam unchanged. Cardiac-souza no intervention. Same medications. She will be evaluated by firefighting equipment specialist and she can be moved to the medical floor whenever it is okay with a firefighting equipment specialist and Dr. Rose. MMODL / IJN: [id number] /
[2018-04-30] MEDS: busPIRone HCl 5 MG TAB PO SCH ×2 (15:25→20:28)
[2018-04-30] MEDS: BUMETANIDE 0.5 MG TABLET PO SCH (15:25)
[2018-04-30 16:28] LABS: Glucose,Whole Blood 143 mg/dL (75-99)
--- NOTE | 2018-04-30 16:48 | PN ---
PROGRESS NOTE DATE OF SERVICE: 04/30/18. PRESENT COMPLAINT: Short of breath, cough. INTERVAL HISTORY: Patient admitted with initial asthma exacerbation. CT scan done yesterday to rule out PE but showing significant bronchiectasis which appears to be the primary problem. Telemetry was okay. The patient is tolerating a diet. Still getting cough. Bringing up some sputum, tired. REVIEW OF SYSTEMS: Done for constitutional, cardiovascular, GI, pulmonary; relevant findings as above. CURRENT MEDICATIONS: Reviewed that include DuoNeb, steroids, Omnicef. PHYSICAL EXAMINATION: Temperature 98, pulse 76, respiratory 18, blood pressure 120/72, pulse 100 percent on room air. GENERAL APPEARANCE: Sitting up, tired-appearing. EYES: Pupils equal. Conjunctivae normal. NECK: JVD not raised. Mass not palpable. RESPIRATORY: Effort increased. LUNGS: Diminished breath sounds. Some crackles on the left base. Decreased wheezing. CARDIOVASCULAR: 1st and 2nd sounds, no edema. ABDOMEN: Soft, nontender. Liver and spleen not palpable. PSYCHIATRY: Awake, answering questions. INVESTIGATIONS: CT scan of the chest negative for PE and evidence of bronchiectasis. White count 19.4, potassium 3.6, BUN 27, creatinine 1.17. ASSESSMENT: 1. Bronchiectasis, probably resulting in the primary admitting diagnosis. 2. Acute exacerbation of moderate persistent asthma in a nonsmoker. 3. Hyperlipidemia. 4. Essential hypertension. 5. Anxiety and depression, not otherwise specified. 6. Primary osteoarthritis in multiple joints. 7. Gastroesophageal reflux disease. 8. Moderate cognitive impairment probably from late onset Alzheimer's dementia. 9. Hyperglycemia secondary to steroids. The patient does not have diabetes mellitus type 2. PLAN: Will DC patient's Omnicef, put the patient on IV Zosyn. Sputum will be sent for Gram stain and culture. Patient may need a bronchoscopy. No obvious cardiac issues. Patient can be moved back to the medical floor. MMODL / IJN: [id number] /
[2018-04-30] MEDS: PIPERACILLIN-TAZOBACTAM 3.375 GM in SODIUM CHLORIDE 0.9% 100 ML IVPB SCH ×2 (17:07→23:32)
[2018-04-30] MEDS: FLUTICASONE 50MCG/SPRAY NASAL 16GM EA NOSTRIL SCH (17:08)
[2018-04-30] MEDS: ATORVASTATIN 10 MG TAB PO SCH (20:29)
[2018-04-30] MEDS: DONEPEZIL 5 MG TAB PO SCH (20:29)
[2018-04-30] MEDS ORDERED: LORazepam 1 MG TAB PO STA (22:54)
[2018-05-01] MEDS: IPRATROPIUM-ALBUTEROL 3 ML NEB INHALATION SCH ×7 (04:08→23:51)
[2018-05-01] MEDS: FORMOTEROL FUMARATE 20 MCG/2 ML NEBU INHALATION SCH ×2 (05:57→20:10)
[2018-05-01] MEDS: BUDESONIDE 0.5 MG/2 ML NEBU INHALATION SCH ×2 (05:57→20:10)
[2018-05-01 07:49] LABS: Glucose,Whole Blood 145 mg/dL (75-99)
[2018-05-01] MEDS: busPIRone HCl 5 MG TAB PO SCH ×2 (08:16→21:21)
[2018-05-01] MEDS: methylPREDNISolone SOD SUCCI 40 MG/ML 1 ML VIAL IV SCH ×3 (08:16→23:33)
[2018-05-01] MEDS: ENOXAPARIN 40 MG/0.4 ML SYRINGE SQ SCH (08:16)
[2018-05-01] MEDS: ASPIRIN 81 MG PO SCH (08:17)
[2018-05-01] MEDS: FLUTICASONE 50MCG/SPRAY NASAL 16GM EA NOSTRIL SCH (08:17)
[2018-05-01] MEDS: METOPROLOL TARTRATE 25 MG TAB PO SCH (08:17)
[2018-05-01] MEDS: PANTOPRAZOLE 40 MG TABLET PO SCH (08:17)
[2018-05-01] MEDS: LORATADINE 10 MG TAB PO SCH (08:17)
[2018-05-01] MEDS: FERROUS SULFATE 325 MG TAB PO SCH ×2 (08:17→21:22)
[2018-05-01] MEDS: PIPERACILLIN-TAZOBACTAM 3.375 GM in SODIUM CHLORIDE 0.9% 100 ML IVPB SCH ×3 (09:38→23:33)
[2018-05-01] MEDS: DILTIAZEM CD 300 MG CAP.ER.24H PO SCH (09:38)
[2018-05-01] MEDS: MEGESTROL 40 MG TAB PO SCH ×3 (09:38→21:22)
[2018-05-01] MEDS: BUMETANIDE 0.5 MG TABLET PO SCH (09:38)
[2018-05-01 11:31] LABS: Glucose,Whole Blood 191 mg/dL (75-99)
[2018-05-01] MEDS: INSULIN ASPART (NovoLOG) 100 UNIT/ML VIAL SQ SCH ×3 (12:12→21:22)
--- NOTE | 2018-05-01 13:09 | P.PN ---
Subjective Progress Note Date: 05/01/18 Principal diagnosis: Acute exacerbation of moderate persistent chronic bronchial asthma. Is a very pleasant 72-year-old female patient who was recently moved here to [place] from [facility]. 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 She has a history of asthma/COPD and is prednisone dependent. His been maintained on Symbicort, Spiriva and albuterol. She also has a history of hyperlipidemia, hypertension, anxiety, dementia. She is a lifelong nonsmoker. She presented here to the emergency room yesterday with complaints of increasing shortness of breath, cough and congestion. His x-ray shows no focal consolidation or pleural effusions. No evidence of edema or failure. There is tortuous/ectatic thoracic aorta with atherosclerotic disease. Echocardiogram reveals preserved left ventricular systolic function with ejection fraction greater than 55%. White count 7.7. Hemoglobin 11.6. Creatinine 1.02. Troponin negative. ProBNP 1290. She is seen today in consultation on the regular medical floor. She is awake and alert in no acute distress. She is breathing a bit easier today as compared to yesterday. No significant cough or congestion. No fever, chills or night sweats. He is maintaining O2 saturations in the low 90s on room air. She's been afebrile. Hemodynamically stable. The patient is seen today 04/28/2018 in follow-up on the regular medical floor. She is currently awake and alert in no acute distress. Resting comfortably in bed. She is stating she is breathing better today as compared to yesterday. Not quite back to her baseline. She is maintaining good O2 saturations in the upper 90s on room air. She's afebrile. Hemodynamically stable. The patient is currently on DuoNeb inhalations, Pulmicort and Perforomist inhalations, IV Solu- Medrol and Omnicef. the patient is seen today 04/29/2018 in follow-up on the regular medical floor. She is currently sitting up in bed. Her breathing is improved today as compared to yesterday.today's chest x-ray shows chronic changes but no acute pulmonary process. She is less bronchospastic and wheezy today. She is maintaining good O2 saturations in the high 90s on room air. She's been afebrile. Hemodynamically stable. 04/30/2018 I'm seeing this patient for a follow-up. Unfortunately she is taking time to recover. Her COPD/asthma still active. We have tapered down her Solu- Medrol to 40 mg every 8 hours. She is also on a combination of Perforomist and Pulmicort neb last treatment twice a day. Not coughing up much sputum. No nausea. No vomiting. No diarrhea. No altered mentation. No pleurisy. No hemoptysis. She has done some progress however she has not completely normalized. Her baseline is not known to me at this point. She has significant history of COPD and she has been steroid dependent for many years. Scan of the chest was also completed yesterday. The CAT scan showed no evidence of any pulmonary embolism. There was bronchiectasis especially in the lower lung shea bilaterally and the patient has a scarring noted in the right lung base. There is also some limited emphysematous changes bilaterally. The patient is seen again today 05/01/2018 in follow-up on the regular medical floor. She is currently awake and alert in no acute distress. She continues with a loose nonproductive cough. Still dyspneic on minimal exertion. Been slow to progress. He is maintaining good O2 saturations in the 90s on room air. She's been afebrile. Hemodynamically stable. She remains on DuoNeb inha lations, Perforomist and Pulmicort inhalations, IV Solu-Medrol. Antibiotics in the form of Zosyn. Objective - Vital Signs Vital signs: Vital Signs Temp 98.5 F 05/01/18 07:12 Pulse 80 05/01/18 11:57 Resp 16 05/01/18 08:00 BP 125/74 05/01/18 07:12 Pulse Ox 98 05/01/18 07:12 Intake & Output 04/30/18 05/01/18 05/01/18 18:59 06:59 18:59 Intake Total 222 Balance 222 Weight 69 kg Intake: Oral 222 Other: Voiding Method Toilet Bedside Commode # Voids 1 2 - Exam GENERAL EXAM: Alert, active, comfortable in no apparent distress. Room air. HEAD: Normocephalic. EYES: Normal reaction of pupils, equal size. NOSE: Clear with pink turbinates. THROAT: No erythema or exudates. NECK: No masses, no JVD. CHEST: No chest wall deformity. LUNGS: Equal air entry with end expiratory wheeze, diminished CVS: S1 and S2 normal with no audible murmur, regular rhythm. ABDOMEN: No hepatosplenomegaly, normal bowel sounds, no guarding or rigidity. SPINE: No scoliosis or deformity SKIN: No rashes CENTRAL NERVOUS SYSTEM: No focal deficits, tone is normal in all 4 extremities. EXTREMITIES: There is no peripheral edema. No clubbing, no cyanosis. Pe ripheral pulses are intact. 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 #2 Acute exacerbation of mild suspected chronic diastolic congestive heart failure. #3 Hypertension. #4 Hyperlipidemia. #5 History of dementia. #6 Anxiety. Plan: The patient was seen and evaluated by Dr. Grider. She has been slow to progress. She may benefit from bronchoscopy and BAL. We'll continue the cu rrent treatment plan. We'll increase her activity as tolerated. We'll continue to follow. I, the cosigning physician, performed a history & physical examination of the patient. Lungs sounds bilateral end expiratory wheeze, few scattered rhonchi. Maintaining good O2 saturations in the 90s on room air. I discussed the assessment and plan of care with my nurse practitioner, Estelle Dumont. I attest to the above note as dictated by her.
[2018-05-01 17:50] LABS: Glucose,Whole Blood 137 mg/dL (75-99)
--- NOTE | 2018-05-01 20:22 | PN ---
PROGRESS NOTE DATE OF SERVICE: 05/01/2018 PRESENTING COMPLAINT: Short of breath, cough. INTERVAL HISTORY: This patient was admitted with asthma exacerbation. CT scan is showing bronchiectasis, which seems to be the main culprit. Still short of breath, cough. The patient was started on IV Zosyn yesterday. Tired. Appetite is not at its best. No active cardiac issues at the present time. REVIEW OF SYSTEMS: Done for constitutional, cardiovascular, GI, pulmonary; relevant findings as above. CURRENT MEDICATIONS: Reviewed. They include IV Zosyn. PHYSICAL EXAMINATION: Temperature 97.6, pulse 83, respiration 20, blood pressure 120/60, pulse ox 97% on room air. GENERAL APPEARANCE: Sitting up, propped up, tired-appearing. EYES: Pupils equal. Conjunctivae normal. NECK: JVD not raised. Mass not palpable. RESPIRATORY: Effort increased. LUNGS: Decreased breath sounds. Some crackles at the bases. CARDIOVASCULAR: First and second sounds normal. No edema. ABDOMEN: Soft, non-tender. Liver and spleen not palpable. PSYCHIATRY: Awake. Answering questions. INVESTIGATIONS: White count 19.4, hemoglobin 12.1, potassium 3.6, BUN 27, creatinine 1.17. Accu-Cheks are noted. ASSESSMENT: 1. Acute bronchiectasis, slow to respond. The patient was started on Zosyn yesterday. 2. Acute exacerbation of moderate persistent asthma in a nonsmoker, slow to respond. 3. Hyperlipidemia. 4. Essential hypertension. 5. Anxiety and depression not otherwise specified. 6. Primary osteoarthritis in multiple joints. 7. Gastroesophageal reflux disease. 8. Moderate cognitive impairment, probably from late-onset Alzheimer's dementia. 9. Hyperglycemia secondary to steroids. PLAN: Keep the patient on IV Zosyn. Continue current medication and treatment plan. I did discuss with Estelle, the MIDDLE SCHOOL PRINCIPAL from Pulmonary, suggesting that patient should have a bronchoscopy, as she is very slow to respond. I also spoke to the patient's daughter, Arlene, with the telephone number . I gave her an update and did tell her that Pulmonary is following; that if the patient does not respond in the next 24 hours, then patient may get a bronchoscopy. At this point I cannot give an estimated date of discharge. MMODL / IJN: [id number] /
[2018-05-01 21:03] LABS: Glucose,Whole Blood 170 mg/dL (75-99)
[2018-05-01] MEDS: ATORVASTATIN 10 MG TAB PO SCH (21:22)
[2018-05-01] MEDS: DONEPEZIL 5 MG TAB PO SCH (21:22)
[2018-05-02] MEDS: IPRATROPIUM-ALBUTEROL 3 ML NEB INHALATION SCH ×5 (04:59→19:25)
[2018-05-02 05:58] VITALS: RESP 16
[2018-05-02] MEDS: FORMOTEROL FUMARATE 20 MCG/2 ML NEBU INHALATION SCH ×2 (07:23→19:25)
[2018-05-02] MEDS: BUDESONIDE 0.5 MG/2 ML NEBU INHALATION SCH ×2 (07:23→19:25)
[2018-05-02 07:34] LABS: Glucose,Whole Blood 159 mg/dL (75-99)
[2018-05-02] MEDS: busPIRone HCl 5 MG TAB PO SCH ×2 (09:15→20:34)
[2018-05-02] MEDS: METOPROLOL TARTRATE 25 MG TAB PO SCH (09:16)
[2018-05-02] MEDS: LORATADINE 10 MG TAB PO SCH (09:16)
[2018-05-02] MEDS: FERROUS SULFATE 325 MG TAB PO SCH ×2 (09:16→20:34)
[2018-05-02] MEDS: ASPIRIN 81 MG PO SCH (09:16)
[2018-05-02] MEDS: FLUTICASONE 50MCG/SPRAY NASAL 16GM EA NOSTRIL SCH (09:16)
[2018-05-02] MEDS: PANTOPRAZOLE 40 MG TABLET PO SCH (09:16)
[2018-05-02] MEDS: ENOXAPARIN 40 MG/0.4 ML SYRINGE SQ SCH (09:16)
[2018-05-02] MEDS: methylPREDNISolone SOD SUCCI 40 MG/ML 1 ML VIAL IV SCH ×3 (09:16→22:33)
[2018-05-02] MEDS: INSULIN ASPART (NovoLOG) 100 UNIT/ML VIAL SQ SCH ×4 (09:17→20:53)
[2018-05-02] MEDS: BUMETANIDE 0.5 MG TABLET PO SCH (09:17)
[2018-05-02] MEDS: MEGESTROL 40 MG TAB PO SCH ×3 (09:17→20:53)
[2018-05-02] MEDS: DILTIAZEM CD 300 MG CAP.ER.24H PO SCH (09:17)
[2018-05-02] MEDS: PIPERACILLIN-TAZOBACTAM 3.375 GM in SODIUM CHLORIDE 0.9% 100 ML IVPB SCH ×3 (09:18→22:33)
[2018-05-02 12:03] LABS: Glucose,Whole Blood 130 mg/dL (75-99)
--- NOTE | 2018-05-02 15:00 | P.PN ---
Subjective Progress Note Date: 05/02/18 Principal diagnosis: Acute exacerbation of moderate persistent chronic bronchial asthma. Is a very pleasant 72-year-old female patient who was recently moved here to [place] from [facility]. She plans to establish with Dr. Snider and Dr. Smart and a kier drier. She has a history of asthma/COPD and is prednisone dependent. His been maintained on Symbicort, Spiriva and albuterol. She also has a history of hyperlipidemia, hypertension, anxiety, dementia. She is a lifelong nonsmoker. She presented here to the emergency room yesterday with complaints of increasing shortness of breath, cough and congestion. His x-ray shows no focal consolidation or pleural effusions. No evidence of edema or failure. There is tortuous/ectatic thoracic aorta with atherosclerotic disease. Echocardiogram reveals preserved left ventricular systolic function with ejection fraction greater than 55%. White count 7.7. Hemoglobin 11.6. Creatinine 1.02. Troponin negative. ProBNP 1290. She is seen today in consultation on the regular medical floor. She is awake and alert in no acute distress. She is breathing a bit easier today as compared to yesterday. No significant cough or congestion. No fever, chills or night sweats. He is maintaining O2 saturations in the low 90s on room air. She's been afebrile. Hemodynamically stable. The patient is seen today 04/28/2018 in follow-up on the regular medical floor. She is currently awake and alert in no acute distress. Resting comfortably in bed. She is stating she is breathing better today as compared to yesterday. Not quite back to her baseline. She is maintaining good O2 saturations in the upper 90s on room air. She's afebrile. Hemodynamically stable. The patient is currently on DuoNeb inhalations, Pulmicort and Perforomist inhalations, IV Solu- Medrol and Omnicef. the patient is seen today 04/29/2018 in follow-up on the regular medical floor. She is currently sitting up in bed. Her breathing is improved today as compared to yesterday.today's chest x-ray shows chronic changes but no acute pulmonary process. She is less bronchospastic and wheezy today. She is maintaining good O2 saturations in the high 90s on room air. She's been afebrile. Hemodynamically stable. 04/30/2018 I'm seeing this patient for a follow-up. Unfortunately she is taking time to recover. Her COPD/asthma still active. We have tapered down her Solu- Medrol to 40 mg every 8 hours. She is also on a combination of Perforomist and Pulmicort neb last treatment twice a day. Not coughing up much sputum. No nausea. No vomiting. No diarrhea. No altered mentation. No pleurisy. No hemoptysis. She has done some progress however she has not completely normalized. Her baseline is not known to me at this point. She has significant history of COPD and she has been steroid dependent for many years. Scan of the chest was also completed yesterday. The CAT scan showed no evidence of any pulmonary embolism. There was bronchiectasis especially in the lower lung shea bilaterally and the patient has a scarring noted in the right lung base. There is also some limited emphysematous changes bilaterally. The patient is seen again today 05/01/2018 in follow-up on the regular medical floor. She is currently awake and alert in no acute distress. She continues with a loose nonproductive cough. Still dyspneic on minimal exertion. Been slow to progress. He is maintaining good O2 saturations in the 90s on room air. She's been afebrile. Hemodynamically stable. She remains on DuoNeb inha lations, Perforomist and Pulmicort inhalations, IV Solu-Medrol. Antibiotics in the form of Zosyn. Patient is seen today 05/02/2017 in follow-up on the regular medical floor. She is currently resting comfortably in bed. She is eating breakfast. She is feeling better today as compared to yesterday. Less cough and congestion. Less shortness of breath. She is maintaining good O2 saturations in the upper 90s on room air. She's afebrile. Hemodynamically stable. Objective - Vital Signs Vital signs: Vital Signs Temp 98.5 F 05/02/18 13:12 Pulse 82 05/02/18 13:12 Resp 16 05/02/18 13:12 BP 126/81 05/02/18 13:12 Pulse Ox 98 05/02/18 13:12 Intake & Output 05/01/18 05/02/18 05/02/18 18:59 06:59 18:59 Intake Total 600 600 Balance 600 600 Weight 71.5 kg Intake: Oral 600 600 Other: Voiding Method Bedside Commode # Voids 1 2 3 - Exam GENERAL EXAM: Alert, active, comfortable in no apparent distress. Room air. HEAD: Normocephalic. EYES: Normal reaction of pupils, equal size. NOSE: Clear with pink turbinates. THROAT: No erythema or exudates. NECK: No masses, no JVD. CHEST: No chest wall deformity. LUNGS: Equal air entry with end expiratory wheeze, diminished CVS: S1 and S2 normal with no audible murmur, regular rhythm. ABDOMEN: No hepatosplenomegaly, normal bowel sounds, no guarding or rigidity. SPINE: No scoliosis or deformity SKIN: No rashes CENTRAL NERVOUS SYSTEM: No focal deficits, tone is normal in all 4 extremities. EXTREMITIES: There is no peripheral edema. No clubbing, no cyanosis. Peripheral pulses are intact. 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 #2 Acute exacerbation of mild suspected chronic diastolic congestive heart failure. #3 Hypertension. #4 Hyperlipidemia. #5 History of dementia. #6 Anxiety. Plan: The patient was seen and evaluated by Dr. Grider. She is improved today as compared to yesterday. No plans for bronchoscopy with BAL. We'll continue the current treatment plan. We'll increase her activity as tolerated. Probable discharge in the a.m. I, the cosigning physician, performed a history & physical examination of the patient. Lungs sounds bilateral end expiratory wheeze, few scattered rhonchi. Maintaining good O2 saturations in the 90s on room air. I discussed the assessment and plan of care with my nurse practitioner, Estelle Dumont. I attest to the above note as dictated by her.
[2018-05-02 19:23] LABS: Hemoglobin A1C 5.2 % (4.0-6.0)
[2018-05-02] MEDS: ATORVASTATIN 10 MG TAB PO SCH (20:34)
[2018-05-02 20:44] LABS: Glucose,Whole Blood 260 mg/dL (75-99)
[2018-05-02] MEDS: DONEPEZIL 5 MG TAB PO SCH (20:53)
--- NOTE | 2018-05-02 22:07 | PN ---
PROGRESS NOTE DATE OF SERVICE: 05/02/2018 PRESENTING COMPLAINT: Cough. INTERVAL HISTORY: Patient admitted with asthma exacerbation. CT scan did show bronchiectasis. Did eat a bit better today. Did take a few steps today. Overall feeling better. Daughter at the bedside. REVIEW OF SYSTEMS: Done for constitutional, cardiovascular, GI, pulmonary; relevant findings as above. CURRENT MEDICATIONS: Reviewed. They include IV Zosyn. PHYSICAL EXAMINATION: Temperature 98.5, pulse 82, respiration 16, blood pressure 126/81, pulse ox 98% on room air. GENERAL APPEARANCE: Sitting up. Awake. EYES: Pupils equal. Conjunctivae normal. NECK: JVD not raised. Mass not palpable. RESPIRATORY: Effort increased. LUNGS: Decreased breath sounds. Improved air entry. CARDIOVASCULAR: First and second sounds normal. No edema. ABDOMEN: Soft, non-tender. Liver and spleen not palpable. PSYCHIATRY: Awake. Answering simple questions. INVESTIGATIONS: No blood work from today. Accu-Cheks are noted. ASSESSMENT: 1. Acute bronchiectasis, on IV antibiotics. Clinically now responding. 2. Acute exacerbation of moderate persistent asthma in a nonsmoker, improving. 3. Hyperlipidemia. 4. Essential hypertension. 5. Anxiety, depression not otherwise specified. 6. Primary osteoarthritis in multiple joints. 7. Gastroesophageal reflux disease. 8. Moderate cognitive impairment from late-onset Alzheimer's dementia. 9. Hyperglycemia secondary to steroids. PLAN: Discussed with Estelle from Pulmonary. She thinks patient could probably go home tomorrow. Patient is doing better. I spoke to the nurse this evening to have the patient again walk a bit more and inform the family. I did speak to the daughter earlier today. MMODL / IJN: [id number] /
[2018-05-02] MEDS: NAPROXEN 250 MG TAB PO PRN (22:33)
[2018-05-03] MEDS: IPRATROPIUM-ALBUTEROL 3 ML NEB INHALATION SCH ×5 (00:24→17:24)
[2018-05-03 07:17] LABS: Glucose,Whole Blood 140 mg/dL (75-99)
[2018-05-03] MEDS: FORMOTEROL FUMARATE 20 MCG/2 ML NEBU INHALATION SCH (07:18)
[2018-05-03] MEDS: BUDESONIDE 0.5 MG/2 ML NEBU INHALATION SCH (07:18)
[2018-05-03] MEDS: FLUTICASONE 50MCG/SPRAY NASAL 16GM EA NOSTRIL SCH (08:09)
[2018-05-03] MEDS: ENOXAPARIN 40 MG/0.4 ML SYRINGE SQ SCH (08:09)
[2018-05-03] MEDS: PIPERACILLIN-TAZOBACTAM 3.375 GM in SODIUM CHLORIDE 0.9% 100 ML IVPB SCH ×2 (08:10→16:26)
[2018-05-03] MEDS: FERROUS SULFATE 325 MG TAB PO SCH (08:10)
[2018-05-03] MEDS: ASPIRIN 81 MG PO SCH (08:10)
[2018-05-03] MEDS: METOPROLOL TARTRATE 25 MG TAB PO SCH (08:10)
[2018-05-03] MEDS: busPIRone HCl 5 MG TAB PO SCH (08:10)
[2018-05-03] MEDS: MEGESTROL 40 MG TAB PO SCH ×2 (08:10→16:25)
[2018-05-03] MEDS: PANTOPRAZOLE 40 MG TABLET PO SCH (08:10)
[2018-05-03] MEDS: DILTIAZEM CD 300 MG CAP.ER.24H PO SCH (08:10)
[2018-05-03] MEDS: LORATADINE 10 MG TAB PO SCH (08:10)
[2018-05-03] MEDS: BUMETANIDE 0.5 MG TABLET PO SCH (08:10)
[2018-05-03] MEDS: INSULIN ASPART (NovoLOG) 100 UNIT/ML VIAL SQ SCH ×2 (08:11→13:19)
[2018-05-03] MEDS: methylPREDNISolone SOD SUCCI 40 MG/ML 1 ML VIAL IV SCH ×2 (08:11→16:25)
[2018-05-03 11:13] VITALS: BMI 24.5
[2018-05-03 11:41] LABS: Glucose,Whole Blood 108 mg/dL (75-99)
[2018-05-03] MEDS ORDERED: IV FLUID CONTINUATION 500 ML IV ONE (11:55)
[2018-05-03] MEDS ORDERED: PROPOFOL 10 MG/ML 20 ML VIAL IV ONE (11:55)
[2018-05-03] MEDS ORDERED: LIDOCAINE 2% INJ 20 MG/ML INTRATRACH ONE (12:16)
--- NOTE | 2018-05-03 12:54 | PCN ---
PROCEDURE NOTE The operative report is bronchoscopy and bronchoalveolar lavage of all lobes and bronchial washings of all lobes. PREOPERATIVE DIAGNOSIS: Bronchiectasis and difficulty clearing secretions. POSTOPERATIVE DIAGNOSIS: Severe bronchiectasis. ANESTHESIA USED: IV conscious sedation. PROCEDURE: The patient was prepared according to the bronchoscopy protocol. O2 was applied via nasal cannula, and patient was placed in a supine position. A bite block was also placed. The patient was placed in a supine position, we monitored her O2 saturation continuously, blood pressure was intermittently monitored, and cardiac rhythm was continuously monitored. After adequate IV conscious sedation, the bronchoscope was inserted through the bite block, down to the area of the oropharynx, and down to the area of the vocal cords. Thick secretions were noted around the vocal cords, and these were purulent, suctioned with difficulty. Then, lidocaine was applied over the vocal cords, the bronchoscope was advanced further down. A thorough examination was done of the trachea, hortencia, right upper lobe, right middle lobe, right lower lobe, left upper lobe, lingula and left lower lobe. All the different lobes with impacted with thick purulent secretions and each one of them was suctioned and lavaged individually and all were collected into the same container. Lavage of the right upper lobe was done followed by the lavage of the right middle lobe, followed by right lower lobe, followed by left upper lobe and followed by lingula and left lower lobe. Thick purulent secretions were obtained and the airways were suctioned until clear. The procedure was tolerated, no evidence of any immediate complications. Secretions were sent for different diagnostic studies. MMODL / IJN: [id number] /
[2018-05-03 14:28] VITALS: BP 120/75; TEMP 98.2
--- NOTE | 2018-05-03 15:28 | P.PN ---
Subjective Progress Note Date: 05/03/18 Principal diagnosis: Acute exacerbation of moderate persistent chronic bronchial asthma. Is a very pleasant 72-year-old female patient who was recently moved here to [place] from [facility]. 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 She has a history of asthma/COPD and is prednisone dependent. His been maintained on Symbicort, Spiriva and albuterol. She also has a history of hyperlipidemia, hypertension, anxiety, dementia. She is a lifelong nonsmoker. She presented here to the emergency room yesterday with complaints of increasing shortness of breath, cough and congestion. His x-ray shows no focal consolidation or pleural effusions. No evidence of edema or failure. There is tortuous/ectatic thoracic aorta with atherosclerotic disease. Echocardiogram reveals preserved left ventricular systolic function with ejection fraction greater than 55%. White count 7.7. Hemoglobin 11.6. Creatinine 1.02. Troponin negative. ProBNP 1290. She is seen today in consultation on the regular medical floor. She is awake and alert in no acute distress. She is breathing a bit easier today as compared to yesterday. No significant cough or congestion. No fever, chills or night sweats. He is maintaining O2 saturations in the low 90s on room air. She's been afebrile. Hemodynamically stable. The patient is seen today 04/28/2018 in follow-up on the regular medical floor. She is currently awake and alert in no acute distress. Resting comfortably in bed. She is stating she is breathing better today as compared to yesterday. Not quite back to her baseline. She is maintaining good O2 saturations in the upper 90s on room air. She's afebrile. Hemodynamically stable. The patient is currently on DuoNeb inhalations, Pulmicort and Perforomist inhalations, IV Solu- Medrol and Omnicef. the patient is seen today 04/29/2018 in follow-up on the regular medical floor. She is currently sitting up in bed. Her breathing is improved today as compared to yesterday.today's chest x-ray shows chronic changes but no acute pulmonary process. She is less bronchospastic and wheezy today. She is maintaining good O2 saturations in the high 90s on room air. She's been afebrile. Hemodynamically stable. 04/30/2018 I'm seeing this patient for a follow-up. Unfortunately she is taking time to recover. Her COPD/asthma still active. We have tapered down her Solu- Medrol to 40 mg every 8 hours. She is also on a combination of Perforomist and Pulmicort neb last treatment twice a day. Not coughing up much sputum. No nausea. No vomiting. No diarrhea. No altered mentation. No pleurisy. No hemoptysis. She has done some progress however she has not completely normalized. Her baseline is not known to me at this point. She has significant history of COPD and she has been steroid dependent for many years. Scan of the chest was also completed yesterday. The CAT scan showed no evidence of any pulmonary embolism. There was bronchiectasis especially in the lower lung shea bilaterally and the patient has a scarring noted in the right lung base. There is also some limited emphysematous changes bilaterally. The patient is seen again today 05/01/2018 in follow-up on the regular medical floor. She is currently awake and alert in no acute distress. She continues with a loose nonproductive cough. Still dyspneic on minimal exertion. Been slow to progress. He is maintaining good O2 saturations in the 90s on room air. She's been afebrile. Hemodynamically stable. She remains on DuoNeb inha lations, Perforomist and Pulmicort inhalations, IV Solu-Medrol. Antibiotics in the form of Zosyn. Patient is seen today 05/02/2017 in follow-up on the regular medical floor. She is currently resting comfortably in bed. She is eating breakfast. She is feeling better today as compared to yesterday. Less cough and congestion. Less shortness of breath. She is maintaining good O2 saturations in the upper 90s on room air. She's afebrile. Hemodynamically stable. The patient is seen today 05/03/2018 in follow-up on the regular medical floor. She is awake and alert in no acute distress. Maintaining O2 saturations in the upper 90s on room air. She's been afebrile. Hemodynamically stable. She has been slow to progress. She has been unable to produce any sputum. She has a loose nonproductive cough. She did undergo bronchoscopy with BAL by Dr. Crouch today. She did have thick mucus that has been sent to lab for analysis. Significant bronchiectasis. Objective - Vital Signs Vital signs: Vital Signs Temp 98.2 F 05/03/18 13:13 Pulse 76 05/03/18 13:13 Resp 16 05/03/18 13:13 BP 120/75 05/03/18 13:13 Pulse Ox 97 05/03/18 13:13 Intake & Output 05/02/18 05/03/18 05/03/18 18:59 06:59 18:59 Intake Total 600 700 Balance 600 700 Weight 66.8 kg 66.8 kg Intake: IV 100 Oral 600 600 Other: # Voids 3 2 2 - Exam GENERAL EXAM: Alert, active, comfortable in no apparent distress. Room air. HEAD: Normocephalic. EYES: Normal reaction of pupils, equal size. NOSE: Clear with pink turbinates. THROAT: No erythema or exudates. NECK: No masses, no JVD. CHEST: No chest wall deformity. LUNGS: Equal air entry with end expiratory wheeze, diminished CVS: S1 and S2 normal with no audible murmur, regular rhythm. ABDOMEN: No hepatosplenomegaly, normal bowel sounds, no guarding or rigidity. SPINE: No scoliosis or deformity SKIN: No rashes CENTRAL NERVOUS SYSTEM: No focal deficits, tone is normal in all 4 extremities. EXTREMITIES: There is no peripheral edema. No clubbing, no cyanosis. Peripheral pulses are intact. 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 #2 Acute exacerbation of mild suspected chronic diastolic congestive heart failure. #3 Hypertension. #4 Hyperlipidemia. #5 History of dementia. #6 Anxiety. Plan: The patient was seen and evaluated by Dr. Grider. She did undergo bronchoscopy with BAL today. There is significant bronchiectasis with significant retained secretions. BAL was performed. Bronchial wash and sent to lab for analysis and cytology. She remains on DuoNeb inhalations, Pulmicort and Perforomist inhalations, IV Solu-Medrol. Probable discharge later today or in the a.m. I, the cosigning physician, performed a [facility] Lungs sounds bilateral end expiratory wheeze, few scattered rhonchi. Maintaining good O2 saturations in the 90s on room air. I discussed the assessment and plan of care with my nurse practitioner, Estelle Dumont. I attest to the above note as dictated by her.
[2018-05-03 15:42] LABS: Appearance,BF Blood Tinged; Color,BF Colorless
[2018-05-03 16:09] LABS: Nucleated Cells, Body Fluid 200 /uL; RBC, Body Fluid 2600 /uL
[2018-05-03 16:13] LABS: Mononuclear WBC,Body Fluid 3 %; Polynuclear WBC,Body Fluid 97 %; Total Cells Counted,Body Fluid 100
--- NOTE | 2018-05-03 16:39 | DS ---
DISCHARGE SUMMARY DATE OF ADMISSION: 04/29/2018 DATE OF DISCHARGE: 05/03/2018 FINAL DIAGNOSES: 1. Acute bronchiectasis. 2. Acute exacerbation of moderate persistent asthma in a nonsmoker, POA. 3. Hyperlipidemia. 4. Essential hypertension. 5. Anxiety and depression not otherwise specified. 6. Primary osteoarthritis in multiple joints. 7. Gastroesophageal reflux disease. 8. Moderate cognitive impairment from late-onset Alzheimer's dementia. 9. Hyperglycemia secondary to steroids. PROCEDURE: Bronchoscopy with lavage. CONSULTATIONS: 1. Dr. Marquez and colleagues from Pulmonary. 2. Dr. Teodora Guillory from Cardiology. HOSPITAL COURSE: This patient presented with cough and shortness of breath. CT scan of the chest did confirm bronchiectasis. The patient did undergo bronchoscopy and lavage. A lot of secretions were removed. I spoke to Dr. Grider today. The patient is okay to go home with Augmentin and bronchodilators. I also spoke to the patient this morning and spoke to the patient's daughter over the phone. The patient did have a 2-D echocardiogram that showed an EF of 55%. On exam, temperature 98.2, pulse 76, respiration 16, blood pressure 120/75, pulse ox 97% on room air. LUNGS: Decreased breath sounds. DISCHARGE MEDICATIONS: 1. Ventolin HFA 2 puffs q.6 p.r.n. 2. Aspirin 81 mg p.o. daily. 3. Excedrin Migraine 1 tablet p.o. b.i.d. p.r.n. 4. Symbicort 160/4.5 two puffs b.i.d. 5. Bumex 0.5 mg p.o. daily. 6. Cardia XT 300 mg p.o. daily. 7. Aricept 5 mg p.o. at bedtime. 8. Iron 325 p.o. b.i.d. 9. Claritin 10 mg p.o. daily. 10.Mevacor 20 mg at bedtime. 11.Megestrol acetate 20 mg t.i.d. 12.Naproxen 375 p.o. q.12 p.r.n. 13.Protonix 40 mg p.o. daily. 14.Buspirone 15 mg p.o. b.i.d. 15.Augmentin 875 one tablet p.o. q.12. 16.DuoNeb q.i.d. 17.Metoprolol 12.5 p.o. b.i.d. 18.Mucinex 1200 mg p.o. b.i.d. 19.Prednisone taper. Patient's pulse ox 97% on room air. Follow up with Dr. Grider in one week. Follow up with Dr. Snider in 3 days. Rollator will be delivered. Discussion and discharge planning more than 35 minutes. MMODL / IJN: [id number] /
[2018-05-03 17:27] VITALS: PULSE 100
[2018-05-03] MEDS ORDERED: guaiFENesin-DM 600/30MG 1 EACH TAB.ER.12H PO SCH (21:00)
== END 2018-05-03 18:00 | disposition home health service (06) | DRG 166 ==
LOC: EC 01:27 → 4SSUR 05:13 → 3SCARD 04-29 15:15 → OBSVTOIN 04-29 16:06 → 4MS4W 04-30 18:37
PROVIDERS: ADMIT Hospitalist; ATTEND Hospitalist
PROC: 0B9J8ZX Drainage of Left Lower Lung Lobe, Via Natural or Artificial Opening Endoscopic, Diagnostic (ICD-10-PCS; 2018-05-03)
PROC: 0B9C8ZX Drainage of Right Upper Lung Lobe, Via Natural or Artificial Opening Endoscopic, Diagnostic (ICD-10-PCS; 2018-05-03)
PROC: 0B9G8ZX Drainage of Left Upper Lung Lobe, Via Natural or Artificial Opening Endoscopic, Diagnostic (ICD-10-PCS; 2018-05-03)
PROC: 0B9D8ZX Drainage of Right Middle Lung Lobe, Via Natural or Artificial Opening Endoscopic, Diagnostic (ICD-10-PCS; 2018-05-03)
PROC: 0B9F8ZX Drainage of Right Lower Lung Lobe, Via Natural or Artificial Opening Endoscopic, Diagnostic (ICD-10-PCS; 2018-05-03)
PROC: 0BD98ZX Extraction of Lingula Bronchus, Via Natural or Artificial Opening Endoscopic, Diagnostic (ICD-10-PCS; 2018-05-03)
PROC: 0BD48ZX Extraction of Right Upper Lobe Bronchus, Via Natural or Artificial Opening Endoscopic, Diagnostic (ICD-10-PCS; 2018-05-03)
PROC: 0BD88ZX Extraction of Left Upper Lobe Bronchus, Via Natural or Artificial Opening Endoscopic, Diagnostic (ICD-10-PCS; 2018-05-03)
PROC: 0BD58ZX Extraction of Right Middle Lobe Bronchus, Via Natural or Artificial Opening Endoscopic, Diagnostic (ICD-10-PCS; 2018-05-03)
PROC: 0BD68ZX Extraction of Right Lower Lobe Bronchus, Via Natural or Artificial Opening Endoscopic, Diagnostic (ICD-10-PCS; 2018-05-03)
PROC: 0BDB8ZX Extraction of Left Lower Lobe Bronchus, Via Natural or Artificial Opening Endoscopic, Diagnostic (ICD-10-PCS; 2018-05-03)
PROC: 0B9H8ZX Drainage of Lung Lingula, Via Natural or Artificial Opening Endoscopic, Diagnostic (ICD-10-PCS; principal; 2018-05-03 07:50)
DX: J47.1 Bronchiectasis with (acute) exacerbation (principal); I50.33 Acute on chronic diastolic (congestive) heart failure; J45.41 Moderate persistent asthma with (acute) exacerbation; I11.0 Hypertensive heart disease with heart failure; I08.3 Combined rheumatic disorders of mitral, aortic and tricuspid valves; K21.9 Gastro-esophageal reflux disease without esophagitis; E78.5 Hyperlipidemia, unspecified; G30.1 Alzheimer's disease with late onset; F02.80 Dementia in other diseases classified elsewhere, unspecified severity, without behavioral disturbance, psychotic disturbance, mood disturbance, and anxiety; F41.9 Anxiety disorder, unspecified; I49.3 Ventricular premature depolarization; I77.810 Thoracic aortic ectasia; I70.0 Atherosclerosis of aorta; F32.9 Major depressive disorder, single episode, unspecified; M16.0 Bilateral primary osteoarthritis of hip; M47.9 Spondylosis, unspecified; R73.9 Hyperglycemia, unspecified; T38.0X5A Adverse effect of glucocorticoids and synthetic analogues, initial encounter; Z79.51 Long term (current) use of inhaled steroids; Z79.82 Long term (current) use of aspirin; Z79.818 Long term (current) use of other agents affecting estrogen receptors and estrogen levels; Z79.899 Other long term (current) drug therapy; Z77.22 Contact with and (suspected) exposure to environmental tobacco smoke (acute) (chronic); Z88.1 Allergy status to other antibiotic agents; Z82.49 Family history of ischemic heart disease and other diseases of the circulatory system
CPT/HCPCS: 31624; 36415; 71046; 71275; 80048; 80053; 80061; 83036; 83880; 84484; 85025; 85610; 85730; 87070; 87102; 87116; 87205; 87206; 87252; 89050; 93005; 93306; 94640; 94667; 94760; 99285

== ENCOUNTER 2018-11-18 09:34 | Inpatient (IN) | payer MEDICARE, OTHER ==
[2018-11-18] MEDS ORDERED: LORazepam 2 MG/ML INJ IV STA (09:41)
--- NOTE | 2018-11-18 10:04 | ED ---
Lower Extremity Injury HPI - General Chief Complaint: Extremity Injury, Lower Stated Complaint: Hip Injury Time Seen by Provider: 11/18/18 09:34 Source: patient, family, EMS, RN notes reviewed Mode of arrival: EMS Limitations: altered mental status - History of Present Illness Initial Comments: This is a 73-year-old female who presents by EMS with complaints of left hip pain after sustaining a fall this morning. Unclear exactly how she fell per family she was folding clothes at this time. She was on the floor complaining of left hip pain she denies any head neck or back pain no other extremity injury at all. She was given IV pain medication by paramedics with minimal relief thus far. Patient did receive IV morphine and did refuse further pain medication. No other current modifying factors MD Complaint: hip injury, fall - Related Data Home Medications Medication Instructions Recorded Confirmed Albuterol Inhaler [Ventolin Hfa 2 puff INHALATION RT-Q6H PRN 04/27/18 11/18/18 Inhaler] Aspirin EC [Ecotrin Low Dose] 81 mg PO DAILY 04/27/18 11/18/18 Budesonide/Formoterol Fumarate 2 puff INHALATION RT-BID 04/27/18 11/18/18 [Symbicort 160-4.5 Mcg Inhaler] Ferrous Sulfate [Iron (65 MG 325 mg PO BID 04/27/18 11/18/18 Elemental)] Megestrol Acetate 20 mg PO TID 04/27/18 11/18/18 Ipratropium-Albuterol Nebulize 3 ml INHALATION RT-QID PRN 11/18/18 11/18/18 [Duoneb 0.5 mg-3 mg/3 ml Soln] Previous Rx's Medication Instructions Recorded Metoprolol Tartrate 12.5 mg PO BID #0 05/03/18 predniSONE 10 mg PO DAILY #30 tab 05/03/18 Allergies Allergy/AdvReac Type Severity Reaction Status Date / Time levofloxacin Allergy Swelling Verified 11/18/18 10:01 Review of Systems ROS Statement: Those systems with pertinent positive or pertinent negative responses have been documented in the HPI. ROS Other: All systems not noted in ROS Statement are negative. Past Medical History Past Medical History: Asthma, COPD, Hyperlipidemia, Hypertension Additional Past Medical History / Comment(s): short term memory loss History of Any Multi-Drug Resistant Organisms: None Reported Past Surgical History: Back Surgery, Orthopedic Surgery Additional Past Surgical History / Comment(s): abdominal , shoulder Past Psychological History: Anxiety Smoking Status: Never smoker Past Alcohol Use History: None Reported Past Drug Use History: None Reported - Past Family History Mother Family Medical History: Hypertension General Exam - General Exam Comments Initial Comments: This is a well-developed asthenic appearing female who is awake alert oriented x3 this time. She does demonstrate a [place]ard[place] Coma Scale of 15 Limitations: altered mental status General appearance: alert, anxious, in distress Head exam: Present: atraumatic, normocephalic, normal inspection Eye exam: Present: normal appearance, PERRL, EOMI. Absent: scleral icterus, conjunctival injection, periorbital swelling ENT exam: Present: normal exam, mucous membranes moist Neck exam: Present: normal inspection, full ROM, other (No stridor JVD or bruits). Absent: tenderness, meningismus, lymphadenopathy Respiratory exam: Present: normal lung sounds bilaterally. Absent: respiratory distress, wheezes, rales, rhonchi, stridor Cardiovascular Exam: Present: regular rate, normal rhythm, normal heart sounds. Absent: systolic murmur, diastolic murmur, rubs, gallop, clicks GI/Abdominal exam: Present: soft, normal bowel sounds. Absent: distended, tenderness, guarding, rebound, rigid Extremities exam: Present: tenderness, normal capillary refill, other (Left hip tenderness palpation with limited range of motion. Patient is a semiflexed position on her right side with marked difficulty moving the leg without a lot of pain.). Absent: full ROM, pedal edema, joint swelling, calf tenderness Back exam: Present: normal inspection, other (Patient does demonstrate some kyphosis.) Neurological exam: Present: alert, oriented X3, CN II-XII intact Psychiatric exam: Present: normal affect, anxious Skin exam: Present: warm, dry, intact, normal color. Absent: rash Course Vital Signs 11/18/18 11/18/18 09:50 10:15 Temperature 99.3 F Pulse Rate 87 92 Respiratory 18 18 Rate Blood Pressure 169/111 150/95 O2 Sat by Pulse 95 95 Oximetry - Reevaluation(s) Reevaluation #1: 11/18/18 12:28 Patient later developed some facial swelling on the right the right chin swelling imaging was done CTs negative for acute findings patient also has some swelling to the right ring finger no evidence of fractures on x-rays. Medical Decision Making - Medical Decision Making I did discuss findings with multiple family members as well as with Dr. Nolasco and with Dr. Torres. Patient will be admitted for evaluation and treatment of left hip fracture after a fall. - Lab Data Result diagrams: 11/18/18 09:55 11/18/18 09:55 Lab Results 11/18/18 11/18/18 11/18/18 Range/Units 09:55 09:55 11:20 WBC 11.7 H (3.8-10.6) k/uL RBC 3.81 (3.80-5.40) m/uL Hgb 12.4 (11.4-16.0) gm/dL Hct 37.2 (34.0-46.0) % MCV 97.8 (80.0-100.0) fL MCH 32.6 (25.0-35.0) pg MCHC 33.3 (31.0-37.0) g/dL RDW 13.2 (11.5-15.5) % Plt Count 194 (150-450) k/uL Neutrophils % 85 % Lymphocytes % 9 % Monocytes % 4 % Eosinophils % 0 % Basophils % 1 % Neutrophils # 10.0 H (1.3-7.7) k/uL Lymphocytes # 1.1 (1.0-4.8) k/uL Monocytes # 0.4 (0-1.0) k/uL Eosinophils # 0.0 (0-0.7) k/uL Basophils # 0.1 (0-0.2) k/uL Sodium 140 (137-145) mmol/L Potassium 3.5 (3.5-5.1) mmol/L Chloride 107 (98-107) mmol/L Carbon Dioxide 24 (22-30) mmol/L Anion Gap 9 mmol/L BUN 9 (7-17) mg/dL Creatinine 0.89 (0.52-1.04) mg/dL Est GFR (CKD-EPI)AfAm 74 (>60 ml/min/1.73 sqM) Est GFR (CKD-EPI)NonAf 65 (>60 ml/min/1.73 sqM) Glucose 89 (74-99) mg/dL Calcium 9.9 (8.4-10.2) mg/dL Magnesium 2.1 (1.6-2.3) mg/dL Total Bilirubin 2.0 H (0.2-1.3) mg/dL AST 25 (14-36) U/L ALT 16 (9-52) U/L Alkaline Phosphatase 54 (38-126) U/L Creatine Kinase 248 H (30-135) U/L Total Protein 6.4 (6.3-8.2) g/dL Albumin 3.6 (3.5-5.0) g/dL Lipase 60 (23-300) U/L Urine Color Yellow Urine Appearance Cloudy H (Clear) Urine pH 7.0 (5.0-8.0) Ur Specific [place] 1.011 (1.001-1.035) Urine Protein Negative (Negative) Urine Glucose (UA) Negative (Negative) Urine Ketones Negative (Negative) Urine Blood Negative (Negative) Urine Nitrite Negative (Negative) Urine Bilirubin Negative (Negative) Urine Urobilinogen 2.0 (<2.0) mg/dL Ur Leukocyte Esterase Small H (Negative) Urine RBC 1 (0-5) /hpf Urine WBC 11 H (0-5) /hpf Ur Squamous Epith Cells <1 (0-4) /hpf Amorphous Sediment Rare H (None) /hpf Urine Bacteria Moderate H (None) /hpf Urine Mucus Occasional H (None) /hpf - EKG Data -: EKG Interpreted by Me (Sinus rhythm with a rate of 86. Interval 136 QRS duration 76 QT since QTC ) - Radiology Data Radiology results: report reviewed (I did review the imaging and report evidence of a left surgical neck fracture of the femur.), image reviewed Disposition Clinical Impression: Closed left hip fracture, Fall Disposition: ADMITTED IP TO THIS [facility] Condition: Fair Referrals: Constantin Snider DO [Primary Care Provider] - 1-2 days
[2018-11-18 10:16] LABS: Basophils # (A) 0.1 k/uL (0-0.2); Basophils % (A) 1 %; Eosinophils % (A) 0 %; HCT 37.2 % (34.0-46.0); HGB 12.4 gm/dL (11.4-16.0); Lymphocytes # (A) 1.1 k/uL (1.0-4.8); Lymphocytes % (A) 9 %; MCH 32.6 pg (25.0-35.0); MCHC 33.3 g/dL (31.0-37.0); MCV 97.8 fL (80.0-100.0); Mean Platelet Volume 7.3; Monocytes # (A) 0.4 k/uL (0-1.0); Monocytes % (A) 4 %; Neutrophils % (A) 85 %; Platelet Count 194 k/uL (150-450); RBC 3.81 m/uL (3.80-5.40); RDW 13.2 % (11.5-15.5); WBC 11.7 k/uL (3.8-10.6)
[2018-11-18 10:25] LABS: Albumin 3.6 g/dL (3.5-5.0); Calcium 9.9 mg/dL (8.4-10.2); Magnesium 2.1 mg/dL (1.6-2.3); Potassium 3.5 mmol/L (3.5-5.1); Total Protein 6.4 g/dL (6.3-8.2)
--- NOTE | 2018-11-18 11:01 | XR ---
EXAMINATION TYPE: XR Hip LT and AP Pelvis , 3 VIEWS DATE OF EXAM ORDERED: 11/18/2018 HISTORY: Fall with trauma. COMPARISON: None. FINDINGS: There has been a previous lower spinal fusion. There is a subcapital fracture of the left hip with mild foreshortening and angulation. No pelvic fra cture is seen. There are are degenerative changes in the right hip. IMPRESSION: SUBCAPITAL FRACTURE OF THE LEFT HIP WITH MILD ANGULATION AND FORESHORTENING. CODE A: INITIAL ENCOUNTER FOR CLOSED FRACTURE.
--- NOTE | 2018-11-18 11:02 | XR ---
EXAMINATION TYPE: XR chest 1V portable DATE OF EXAM: 11/18/2018 HISTORY: Fall. REFERENCE: Previous study dated 04/29/2018. FINDINGS: The heart is enlarged. There is some scarring in the left lung base. Lungs otherwise clear. Pleural spaces are clear. Note is made of a mild dextroscoliosis. IMPRESSION: MILD CARDIOMEGALY.
[2018-11-18 11:52] LABS: Amorphous Sediment,Urine Rare /hpf; Appearance,Urine Cloudy (Clear); Bacteria,Urine Moderate /hpf; Bilirubin,Urine Negative (Negative); Blood,Urine Negative (Negative); Color,Urine Yellow; Glucose,Urine (UA) Negative (Negative); Ketones,Urine Negative (Negative); Leukocyte Esterase,Urine Small (Negative); Mucus,Urine Occasional /hpf; Nitrite,Urine Negative (Negative); Protein,Urine Negative (Negative); RBC,Urine 1 /hpf (0-5); Specific Gravity,Urine 1.011 (1.001-1.035); Squamous Epithelial Cell,Urine <1 /hpf (0-4)
--- NOTE | 2018-11-18 12:02 | CT ---
EXAMINATION TYPE: CT brain valery hardin DATE OF EXAM: 11/18/2018 COMPARISON: NONE HISTORY: Fall today with injury. Left hip pain CT DLP: 2358 mGycm Automated exposure control for dose reduction was used. TECHNIQUE: CT scan of the head and cervical spine are performed without contrast. FINDINGS: BRAIN: There are generalized changes of sulcal prominence and ventriculomegaly, compatible with atrop hic change. There is diffuse periventricular white matter lucency, compatible with chronic white angelica er ischemic change. There is no acute focal lesion, mass effect or midline shift identified. I do not see evidence of intracranial blood. Visualized portions of the paranasal sinuses and mastoids are clear. The bony calvarium is intact. IMPRESSION: 1. NO ACUTE INTRACRANIAL ABNORMALITY. 2. MILD DEGENERATIVE CHANGE. CERVICAL SPINE: Visualized portions of the lungs are clear. There is aneurysmal dilatation of the proximal arch of the aorta which measures 3.5 cm. Prevertebral soft tissues are otherwise unremarkable. There is a reversal of the normal cervical lordosis which is replaced by mild kyphosis. There is mini mal antegrade listhesis of C3 on C4. Alignment is otherwise maintained. Atlantoaxial relationships ar e normal. There is diffuse degenerative disc disease at all levels. There is hypertrophic spondylosis most vignesh ed at C4-5. There is uncovertebral joint disease also most marked at C4-5. There is mild facet arthro azra bilaterally at C2-3 IMPRESSION: 1. NO ACUTE OSSEOUS LESION. 2. DEGENERATIVE CHANGE IN THE SPINE. 3. MILD ANEURYSMAL DILATATION OF THE PROXIMAL ARCH OF THE AORTA.
--- NOTE | 2018-11-18 12:04 | XR ---
EXAMINATION TYPE: XR hand complete RT , 3 VIEWS DATE OF EXAM ORDERED: 11/18/2018 HISTORY: Fall with trauma. COMPARISON: None. FINDINGS: No fracture, dislocation or other acute bony abnormality is seen. IMPRESSION: NO ACUTE OSSEOUS LESION.
[2018-11-18] MEDS ORDERED: NALOXONE 0.4 MG/ML 1 ML VIAL IV PRN (12:29)
[2018-11-18] MEDS: SODIUM CHLORIDE 0.9% 1,000 ML IV SCH ×2 (13:04→22:10)
[2018-11-18] MEDS ORDERED: POTASSIUM CHLORIDE ER 20 MEQ TAB.ER PO STA (17:09)
[2018-11-18] MEDS: IPRATROPIUM-ALBUTEROL 3 ML NEB INHALATION PRN (19:31)
[2018-11-18] MEDS: SYMBICORT 160-4.5 MCG INHALER INHALATION SCH (19:36)
[2018-11-18] MEDS: HYDROmorphone 0.5 MG/0.5 ML SYRINGE IVP PRN (20:59)
[2018-11-18] MEDS: MEGESTROL 40 MG TAB PO SCH (21:01)
[2018-11-18] MEDS: METOPROLOL TARTRATE 12.5 MG TAB PO SCH (21:01)
--- NOTE | 2018-11-18 23:38 | P.CONS ---
History of Present Illness - Reason for Consult Consult date: 11/18/18 Medical management and clearance. - Chief Complaint Status post fall - History of Present Illness Patient is a 73-year-old female with a known history of asthma/COPD, short-term memory loss, hypertension and hyperlipidemia was brought to the hospital by EMS due to complaints of left hip pain after sustaining a fall this morning. Patient is awake alert but confused at this time and unable to provide good history. According to the family patient was folding clothes at the time of the fall. Patient was found on the floor complaining of left hip pain. Denied any complaints of neck pain or head injury. While in the ER patient was also found to have swelling of the chin area and CT of the head and neck was done. CT showed no acute intracranial process. Diffuse arthritic changes in the cervical spine was noted. No acute fracture or dislocation. Patient was given IV morphine for pain management. Laboratory data reviewed. No complaints of fever or chills. No complaint of chest pain. Currently saturating well on 97% on room air. Left hip x-ray showed subcapital fracture of the left hip with mild angulation and foreshortening. Chest x-ray showed mild cardiomegaly. Review of Systems Constitutional: Patient denies any fever or chills . No generalized weakness or weight loss. Abdomen: Patient denied nausea vomiting and diarrhea and abdominal pain. Cardiovascular: Patient denies any chest pain or short of breath no palpitation s. Respiratory: patient denied any cough is from production. No shortness of breath Neurologic: Patient denied any numbness or tingling headache. Musculoskeletal: Patient denies any complaints of joint swelling or deformity. Left hip pain. Complete review of systems could not be apparent from the patient. Past Medical History Past Medical History: Asthma, COPD, Hyperlipidemia, Hypertension Additional Past Medical History / Comment(s): short term memory loss History of Any Multi-Drug Resistant Organisms: None Reported Past Surgical History: Back Surgery, Orthopedic Surgery Additional Past Surgical History / Comment(s): abdominal , shoulder Past Psychological History: Anxiety Smoking Status: Never smoker Past Alcohol Use History: None Reported Past Drug Use History: None Reported - Past Family History Mother Family Medical History: Hypertension Medications and Allergies Home Medications Medication Instructions Recorded Confirmed Type Albuterol Inhaler [Ventolin Hfa 2 puff INHALATION RT-Q6H PRN 04/27/18 11/18/18 History Inhaler] Aspirin EC [Ecotrin Low Dose] 81 mg PO DAILY 04/27/18 11/18/18 History Budesonide/Formoterol Fumarate 2 puff INHALATION RT-BID 04/27/18 11/18/18 History [Symbicort 160-4.5 Mcg Inhaler] Ferrous Sulfate [Iron (65 MG 325 mg PO BID 04/27/18 11/18/18 History Elemental)] Megestrol Acetate 20 mg PO TID 04/27/18 11/18/18 History Metoprolol Tartrate 12.5 mg PO BID #0 05/03/18 11/18/18 Rx predniSONE 10 mg PO DAILY #30 tab 05/03/18 11/18/18 Rx Ipratropium-Albuterol Nebulize 3 ml INHALATION RT-QID PRN 11/18/18 11/18/18 History [Duoneb 0.5 mg-3 mg/3 ml Soln] Allergies Allergy/AdvReac Type Severity Reaction Status Date / Time levofloxacin Allergy Swelling Verified 11/18/18 10:01 Physical Exam Vitals: Vital Signs Temp Pulse Pulse Resp BP BP Pulse Ox 11/18/18 13:57 98.8 F 89 16 152/92 97 11/18/18 12:55 98.1 F 93 18 133/90 98 11/18/18 10:15 92 18 150/95 95 11/18/18 09:50 99.3 F 87 18 169/111 95 Intake and Output 11/18/18 11/18/18 11/18/18 06:59 14:59 22:59 Output Total 300 Balance -300 Output: Urine 300 Uretheral ([place]) 300 Other: Voiding Method Indwelling Catheter Weight 68.039 kg PHYSICAL EXAMINATION: Patient is lying in the bed comfortably, no acute distress, awake alert and oriented. Patient is confused and appears to be in pain.. HEENT: Normocephalic. Neck is supple. Pupils reactive. Nostrils clear. Oral cavity is moist. Ears reveal no drainage. Neck reveals no JVD, carotid bruits, or thyromegaly. CHEST EXAMINATION: Trachea is central. Symmetrical expansion. Bibasilar diminished air entry. Lung shea clear to auscultation and percussion. CARDIAC: Normal S1, S2 with no gallops. No murmurs ABDOMEN: Soft. Bowel sounds normal. No organomegaly. No abdominal bruits. Extremities: reveal no edema. No clubbing or cyanosis Neurologically awake, alert, oriented x2-3 with well-coordinated movements. No focal deficits noted Skin: No rash or skin lesions. Psychiatric: Coperative. Nonsuicidal Musculoskeletal: No joint swelling or deformity. Left hip trochanteric tenderness. Decreased range of motion. Results CBC & Chem 7: 11/18/18 09:55 11/18/18 09:55 Labs: Abnormal Lab Results - Last 24 Hours (Table) 11/18/18 11/18/18 11/18/18 Range/Units 09:55 09:55 11:20 WBC 11.7 H (3.8-10.6) k/uL Neutrophils # 10.0 H (1.3-7.7) k/uL Total Bilirubin 2.0 H (0.2-1.3) mg/dL Creatine Kinase 248 H (30-135) U/L Urine Appearance Cloudy H (Clear) Ur Leukocyte Esterase Small H (Negative) Urine WBC 11 H (0-5) /hpf Amorphous Sediment Rare H (None) /hpf Urine Bacteria Moderate H (None) /hpf Urine Mucus Occasional H (None) /hpf Assessment and Plan Assessment: Status post mechanical fall and left hip subcapital fracture Mild rhabdomyolysis CK level to 48 Mild leukocytosis is 11.4 likely reactive. Asthma/COPD. Not in exacerbation Anxiety Short-term memory loss Hypertension Hyperlipidemia DVT prophylaxis. Plan: Patient is a 73-year-old female with a known history of asthma and anxiety was brought to the hospital status post fall and found have left hip subcapital fracture. Patient does not have any complaints of chest pain or worsening shor tness of breath. No history of prior coronary artery disease. Renal function is stable. Currently saturating well on room air. Patient will be continued on breathing treatments as needed for shortness of breath and wheezing. Continue with beta blockers which she is taking at home. No prior history of CVA. Otherwise patient is able to ambulate without support prior to fall. Left hip surgery might be able to maintain her functionality. Patient is at low risk for low risk orthopedic surgery. We will continue to follow with you. Further recommendations based on the clinical course. Thank you for your consult. Time with Patient: Greater than 30
[2018-11-19] MEDS: HYDROmorphone 0.5 MG/0.5 ML SYRINGE IVP PRN ×2 (04:01→06:38)
[2018-11-19] MEDS: SODIUM CHLORIDE 0.9% 1,000 ML IV SCH ×3 (06:35→17:58)
--- NOTE | 2018-11-19 06:43 | XR ---
EXAMINATION TYPE: XR chest 1V DATE OF EXAM: 11/19/2018 HISTORY: Tachycardia. REFERENCE: Previous study dated 11/18/2018. FINDINGS: The heart is mildly enlarged. The lungs are clear. Pleural spaces are clear. Right paratrac heal opacity likely represents ectasia of the great vessels. IMPRESSION: MILD CARDIOMEGALY.
--- NOTE | 2018-11-19 07:12 | P.HPOR ---
History of Present Illness H&P Date: 11/19/18 This is a 73-year-old female who is admitted for left hip fracture. Patient's past medical history is significant for asthma, COPD, hyperlipidemia, hypertension and short-term memory loss. Patient is a poor historian and there is no family present in the room. Patient states that she cannot remember how she fell and doesn't recall if she hit her head or loss consciousness. Per the patient's chart, the patient was found on the floor by her daughter. Patient states that the fall did occur in her home. Patient states that she was able to ambulate prior to this injury. Patient was evaluated in the emergency room and x-rays of the left hip and pelvis revealed a subcapital fracture of the left femur. Patient is not on any anticoagulation. Patient denies any fever/chills, numbness, weakness, tingling, abdominal pain, shortness of breath or chest pain. Review of Systems See HPI. Past Medical History Past Medical History: Asthma, COPD, Hyperlipidemia, Hypertension Additional Past Medical History / Comment(s): short term memory loss History of Any Multi-Drug Resistant Organisms: None Reported Past Surgical History: Back Surgery, Orthopedic Surgery Additional Past Surgical History / Comment(s): abdominal , shoulder Past Anesthesia/Blood Transfusion Reactions: No Reported Reaction Past Psychological History: Anxiety Smoking Status: Never smoker Past Alcohol Use History: None Reported Past Drug Use History: None Reported - Past Family History Mother Family Medical History: Hypertension Medications and Allergies Home Medications Medication Instructions Recorded Confirmed Type Albuterol Inhaler [Ventolin Hfa 2 puff INHALATION RT-Q6H PRN 04/27/18 11/18/18 History Inhaler] Aspirin EC [Ecotrin Low Dose] 81 mg PO DAILY 04/27/18 11/18/18 History Budesonide/Formoterol Fumarate 2 puff INHALATION RT-BID 04/27/18 11/18/18 History [Symbicort 160-4.5 Mcg Inhaler] Ferrous Sulfate [Iron (65 MG 325 mg PO BID 04/27/18 11/18/18 History Elemental)] Megestrol Acetate 20 mg PO TID 04/27/18 11/18/18 History Metoprolol Tartrate 12.5 mg PO BID #0 05/03/18 11/18/18 Rx predniSONE 10 mg PO DAILY #30 tab 05/03/18 11/18/18 Rx Ipratropium-Albuterol Nebulize 3 ml INHALATION RT-QID PRN 11/18/18 11/18/18 History [Duoneb 0.5 mg-3 mg/3 ml Soln] Allergies Allergy/AdvReac Type Severity Reaction Status Date / Time levofloxacin Allergy Swelling Verified 11/18/18 10:01 Physical Examination On exam patient is resting comfortably in bed in no acute distress. Patient is alert and oriented. The left lower extremity is shortened and externally rotated. There is mild tenderness to palpation over the left hip. There is no erythema or ecchymosis and skin is intact. Bilateral lower extremities are warm and well perfused. Calves are soft and nontender to palpation. Dorsalis pedis pulses are 2+ bilaterally. Neurovascular status circulatory status are intact. Exams of the head, neck and bilateral upper extremities are within normal limits. Results X-rays of the left hip and pelvis show a subcapital fracture of the left femur. X-rays of the right hand are negative for any fracture or dislocation. - Labs Labs: Abnormal Lab Results - Last 24 Hours (Table) 11/18/18 11/18/18 11/18/18 Range/Units 09:55 09:55 11:20 WBC 11.7 H (3.8-10.6) k/uL Neutrophils # 10.0 H (1.3-7.7) k/uL Total Bilirubin 2.0 H (0.2-1.3) mg/dL Creatine Kinase 248 H (30-135) U/L Urine Appearance Cloudy H (Clear) Ur Leukocyte Esterase Small H (Negative) Urine WBC 11 H (0-5) /hpf Amorphous Sediment Rare H (None) /hpf Urine Bacteria Moderate H (None) /hpf Urine Mucus Occasional H (None) /hpf Microbiology - Last 24 Hours (Table) 11/18/18 11:20 Urine Culture - Preliminary Urine,Catheterized H & H 11/18/18 Range/Units 09:55 Hgb 12.4 (11.4-16.0) gm/dL Hct 37.2 (34.0-46.0) % Result Diagrams: 11/18/18 09:55 11/18/18 09:55 Assessment and Plan Assessment: Asthma COPD Hyperlipidemia Hypertension Short-term memory loss (1) Closed left hip fracture Current Visit: Yes Status: Acute Code(s): S72.002A - FRACTURE OF UNSP PART OF NECK OF LEFT FEMUR, INIT SNOMED Code(s): 141931494 (2) Fall Current Visit: Yes Status: Acute Code(s): W19.XXXA - UNSPECIFIED FALL, INITIAL ENCOUNTER SNOMED Code(s): 6835295 Plan: 1. Patient is to be NPO. 2. Nonweightbearing to the left lower extremity. 3. Continue pain control. 4. Appreciate input from medicine. 5. Planning for left hip hemiarthroplasty today pending medical clearance and consent. All patient questions and concerns were addressed and answered to the best of my ability.
[2018-11-19] MEDS ORDERED: METOCLOPRAMIDE 5 MG/ML 2 ML VIAL IVP PRN (07:29)
[2018-11-19] MEDS ORDERED: HYDROmorphone 0.5 MG/0.5 ML SYRINGE IVP PRN (07:29)
[2018-11-19] MEDS ORDERED: LIDOCAINE 1% 20 ML VIAL (10MG/ML) FOR IV START INTRADERMA PRN (07:29)
[2018-11-19] MEDS ORDERED: ONDANSETRON 4 MG/2 ML VIAL IVP PRN (07:29)
[2018-11-19] MEDS: MEGESTROL 40 MG TAB PO SCH ×3 (07:38→22:46)
[2018-11-19] MEDS: predniSONE 10 MG TAB PO SCH (07:38)
[2018-11-19] MEDS: METOPROLOL TARTRATE 12.5 MG TAB PO SCH ×2 (09:03→22:02)
[2018-11-19] MEDS: LACTATED RINGERS 1,000 ML IV SCH (09:30)
[2018-11-19] MEDS ORDERED: DIAZEPAM 5 MG TAB PO PRN (09:45)
[2018-11-19] MEDS ORDERED: MAGNESIUM HYDROXIDE 2,400 MG/10 ML CUP PO PRN (09:45)
[2018-11-19] MEDS ORDERED: NALOXONE 0.4 MG/ML 1 ML VIAL IV PRN ×2 (09:45→10:41)
[2018-11-19] MEDS ORDERED: hydrOXYzine PAMOATE 25 MG CAP PO PRN (09:45)
[2018-11-19] MEDS ORDERED: HYDROcodone/APAP 5-325MG 1 EACH TAB PO PRN (09:45)
[2018-11-19] MEDS: SYMBICORT 160-4.5 MCG INHALER INHALATION SCH ×2 (09:49→20:03)
[2018-11-19] MEDS ORDERED: MIDAZOLAM 2 MG/2 ML VIAL ONE (10:15)
[2018-11-19] MEDS ORDERED: PROPOFOL 10 MG/ML 20 ML VIAL IV ONE (10:15)
[2018-11-19] MEDS ORDERED: KETAMINE 10 MG/ML 20 ML VIAL ONE (10:15)
[2018-11-19] MEDS ORDERED: PHENYLEPHRINE-0.9% NACL SYG 1 MG/10 ML SYRINGE ONE (10:15)
[2018-11-19] MEDS ORDERED: SODIUM CHLORIDE 0.9% 1,000 ML IV ONE (10:15)
[2018-11-19] MEDS ORDERED: NALBUPHINE 10 MG/ML (1 ML AMP) IV PRN (10:41)
[2018-11-19] MEDS ORDERED: ceFAZolin 3,000 MG in SODIUM CHLORIDE 0.9% IRRIGATIO 3,000 ML IRRIGATION ONE (10:48)
--- NOTE | 2018-11-19 11:06 | P.OP ---
Date of Procedure: 11/19/18 Preoperative Diagnosis: Subcapital fracture left hip Postoperative Diagnosis: Subcapital fracture left hip Procedure(s) Performed: Left hip hemiarthroplasty Implants: Cabrera and nephew Polarstem size 2 standard Cabrera & Nephew tandem unipolar, 47 mm Cabrera & Nephew tandem unipolar 12/14 taper sleeve, +0 mm All components were press-fit. Anesthesia: spinal Surgeon: Venkat Nolasco Switching Operator #1: Leandra Hammonds Estimated Blood Loss (ml): 100 Pathology: other (Femoral head) Condition: stable Disposition: PACU Indications for Procedure: This is a 73-year-old female that slipped and fell at home yesterday. She sustained a subcapital fracture left hip and presented to the emergency room. After evaluating the x-rays and seen and evaluated the patient, I discussed the surgical nonsurgical treatment options with her and her family at length. I recommended a left hip hemiarthroplasty. Potential complications and outcomes were discussed at length and informed consent was obtained. Operative Findings: The operative findings are consistent with a subcapital fracture of the left hip Description of Procedure: Patient was seen and evaluated in the preoperative area, consent was reviewed and the operative site was marked with a skin marker. Patient was then brought to the operating room and given 2 g of Ancef intravenously. A spinal anesthetic was administered by the anesthesia department. Patient was then placed in a lateral decubitus position and held with a Montral hip positioner. The bony prominences were well-padded and an axillary roll was placed. The hip was then prepped and draped in the usual sterile fashion. A universal timeout was then performed which confirmed the patient's name, surgical site, ALLERGIES, and procedure. A standard anterolateral approach the hip was performed. Skin and subcutaneous tissues were sharply incised with an incision centered over the tip of the greater trochanter. The incision was carefully dissected down to the fascia. The fascia was then split in line with skin incision and a Charnley retractor was gently placed. The abductors were then identified, and the anterior one third of the abductors were released off the trochanter and one large sleeve. The fracture hematoma was evacuated and the proximal femur was exposed by externally rotating the femur. The fracture site was readily visualized. Next, using an osteotomy guide, the proximal femur was osteotomized at the appropriate level of the above the lesser trochanter. This bone was then removed. Attention was then turned to the femoral head. Using a corkscrew, the femoral head was removed from the acetabulum without incident. The acetabulum was inspected, and found to have no significant arthrosis. Femoral head was then measured. Attention was then redirected to the femur. Proximal femur was re-exposed and a box osteotome was used to lateralize the proximal femur. A scrap stripper hand was then used to locate the femoral canal. Sequential broaching was then performed to the appropriate size. The calcar was then planed and trial head and neck were placed. The hip was then gently reduced. Leg lengths were checked and found to be equal. Hip was then taken through a full range of motion was stable throughout. The hip was then gently dislocated with the aid of a bone hook. The trial head and neck were then removed. The femoral broach was then inspected and found to have a secure fit. The broach was then removed. The hip was then copiously irrigated with antibiotic solution with a pulse lavage. Components were then opened and the femoral stem was then impacted into the proximal femur. The trunnion was cleaned and dried, and the femoral head and neck were then impacted. Hip was again gently reduced. Again leg lengths were checked and found to be equal, and the hip was taken through a full range of motion and found to be stable. The hip was again irrigated with pulsatile lavage, then followed by the Irrrisept solution. The abductors were then repaired through drill holes to the bone to the greater trochanter, utilizing #5 Ethibond suture. Next the fascia was repaired with #2 strata fix suture. The subcutaneous tissue was then repaired with 3-0 Vicryl. The subcuticular tissue was then repaired with 3-0 strata fix suture. Skin was then closed with Dermabond tape. A sterile dressing was then applied and the patient was transported to the recovery room in stable condition. Switching Operator VINOD Figueroa was required due to the complexity of surgery the need for skilled rn medical surgical. She assisted with positioning the patient, draping the patient, retraction during the surgery, and closure of the wound.
--- NOTE | 2018-11-19 12:21 | XR ---
EXAMINATION TYPE: XR Hip Limited LT , ONE VIEW DATE OF EXAM ORDERED: 11/19/2018 HISTORY: post op. COMPARISON: None. FINDINGS: The left hip hemiarthroplasties been performed. Prosthetic elements are in good position. Note is made of a previous interpedicular fusion at L5-S1. IMPRESSION: STATUS POST LEFT HIP HEMIARTHROPLASTY.
[2018-11-19 13:14] LABS: Basophils # (A) 0.1 k/uL (0-0.2); Basophils % (A) 1 %; Eosinophils # (A) 0.1 k/uL (0-0.7); Eosinophils % (A) 1 %; HCT 38.9 % (34.0-46.0); Hypochromasia Marked; Lymphocytes # (A) 1.6 k/uL (1.0-4.8); Lymphocytes % (A) 13 %; MCH 31.9 pg (25.0-35.0); Macrocytosis Slight; Mean Platelet Volume 6.7; Monocytes # (A) 0.5 k/uL (0-1.0); Monocytes % (A) 4 %; Neutrophils % (A) 80 %; Platelet Count 179 k/uL (150-450); RBC 3.78 m/uL (3.80-5.40); RDW 12.7 % (11.5-15.5); WBC 12.5 k/uL (3.8-10.6)
[2018-11-19 13:18] LABS: MCV 103.1 fL (80.0-100.0)
[2018-11-19] MEDS: IPRATROPIUM-ALBUTEROL 3 ML NEB INHALATION PRN (16:01)
[2018-11-19] MEDS: SENNOSIDES-DOCUSATE SODIUM 1 EACH TAB PO SCH (22:02)
--- NOTE | 2018-11-20 00:09 | P.PN ---
Subjective Progress Note Date: 11/19/18 Principal diagnosis: left hip fracture Patient is a 73-year-old female with a known history of asthma/COPD, short-term memory loss, hypertension and hyperlipidemia was brought to the hospital by EMS due to complaints of left hip pain after sustaining a fall this morning. Patie nt is awake alert but confused at this time and unable to provide good history. According to the family patient was folding clothes at the time of the fall. Patient was found on the floor complaining of left hip pain. Denied any complaints of neck pain or head injury. While in the ER patient was also found to have swelling of the chin area and CT of the head and neck was done. CT showed no acute intracranial process. Diffuse arthritic changes in the cervical spine was noted. No acute fracture or dislocation. Patient was given IV morphine for pain management. Laboratory data reviewed. No complaints of fever or chills. No complaint of chest pain. Currently saturating well on 97% on room air. Left hip x-ray showed subcapital fracture of the left hip with mild angulation and foreshortening. Chest x-ray showed mild cardiomegaly. 11/19/2018 Patient is currently lying in the bed comfortable and is saturating well on room air. Patient is status post Left hip hemiarthroplasty on 11/19/2018 Patient is currently drowsy and lethargic. Denied any complaints of chest pain or shortness of breath. Family is at bedside No fever no chills. Otherwise urine culture is growing gram-negative bacilli. Patient will be started on IV antibiotics and follow-up with final culture report. Patient does have baseline memory impairment. Encourage ambulation and incentive spirometry. Current medications reviewed. Objective - Vital Signs Vital signs: Vital Signs Temp 98.4 F 11/19/18 19:54 Pulse 57 L 11/19/18 19:54 Resp 17 11/19/18 19:54 BP 103/74 11/19/18 19:54 Pulse Ox 97 11/19/18 19:54 Intake & Output 11/19/18 11/19/18 11/20/18 06:59 18:59 06:59 Intake Total 647 Output Total 600 500 Balance -600 147 Intake: IV 51 Oral 596 Output: Urine 600 400 Uretheral (Cardoza) 200 Estimated Blood Loss 100 Other: Voiding Method Indwelling Catheter Indwelling Catheter - Exam PHYSICAL EXAMINATION: Patient is lying in the bed comfortably, no acute distress, awake alert and oriented. Patient is confused and appears to be in pain.. HEENT: Normocephalic. Neck is supple. Pupils reactive. Nostrils clear. Oral cavity is moist. Ears reveal no drainage. Neck reveals no JVD, carotid bruits, or thyromegaly. CHEST EXAMINATION: Trachea is central. Symmetrical expansion. Bibasilar diminished air entry. Lung shea clear to auscultation and percussion. CARDIAC: Normal S1, S2 with no gallops. No murmurs ABDOMEN: Soft. Bowel sounds normal. No organomegaly. No abdominal bruits. Extremities: reveal no edema. No clubbing or cyanosis Neurologically awake, alert, oriented x2-3 with well-coordinated movements. No focal deficits noted Skin: No rash or skin lesions. Psychiatric: Coperative. Nonsuicidal Musculoskeletal: No joint swelling or deformity. Left hip trochanteric tenderness. Decreased range of motion. - Labs CBC & Chem 7: 11/19/18 12:45 11/18/18 09:55 Labs: Abnormal Lab Results - Last 24 Hours (Table) 11/19/18 Range/Units 12:45 WBC 12.5 H (3.8-10.6) k/uL RBC 3.78 L (3.80-5.40) m/uL MCV 103.1 H D (80.0-100.0) fL Neutrophils # 10.0 H (1.3-7.7) k/uL Microbiology - Last 24 Hours (Table) 11/18/18 11:20 Urine Culture - Preliminary Urine,Catheterized Gram Neg Bacilli Assessment and Plan Assessment: Status post mechanical fall and left hip subcapital fracture status post left hemiarthroplasty postoperative day 0. Gram-negative bacilli urinary tract infection Mild rhabdomyolysis CK level to 48 Mild leukocytosis is 11.4 likely reactive. Asthma/COPD. Not in exacerbation Anxiety Short-term memory loss Hypertension Hyperlipidemia DVT prophylaxis. Plan: Patient is a 73-year-old female with a known history of asthma and anxiety was brought to the hospital status post fall and found have left hip subcapital fracture. Patient be continued on DuoNeb's and Symbicort along with prednisone 10 mg daily as per her home dose. Gentle hydration and avoid fluid overload. Patient was started on antibiotics for urinary tract infection. Continue to follow closely. Further recommendations based on the clinical course. Time with Patient: Greater than 30
[2018-11-20] MEDS: SODIUM CHLORIDE 0.9% 1,000 ML IV SCH ×2 (06:18→23:26)
[2018-11-20] MEDS: SYMBICORT 160-4.5 MCG INHALER INHALATION SCH ×2 (07:24→18:58)
--- NOTE | 2018-11-20 07:24 | P.PN ---
Progress Note - Text Progress Note Date: 11/20/18 Patient with complaints of moderate pain. Denies headache or pruritis. Denies weakness or paresthesias. Cardoza in place. VSS Back - site c/d A/P POD#1 s/p L hip hemiarthroplasty with spinal duramorph - morphine for breakthrough pain - tylenol q6 - tramadol
[2018-11-20 07:29] LABS: Calcium 9.6 mg/dL (8.4-10.2); Potassium 3.9 mmol/L (3.5-5.1)
[2018-11-20 07:35] LABS: Basophils # (A) 0.1 k/uL (0-0.2); Basophils % (A) 1 %; Eosinophils # (A) 0.1 k/uL (0-0.7); Eosinophils % (A) 0 %; HCT 32.4 % (34.0-46.0); HGB 10.7 gm/dL (11.4-16.0); Lymphocytes # (A) 1.4 k/uL (1.0-4.8); Lymphocytes % (A) 10 %; MCH 32.6 pg (25.0-35.0); MCHC 33.2 g/dL (31.0-37.0); MCV 98.4 fL (80.0-100.0); Mean Platelet Volume 7.3; Monocytes # (A) 0.7 k/uL (0-1.0); Monocytes % (A) 5 %; Neutrophils # (A) 11.5 k/uL (1.3-7.7); Neutrophils % (A) 83 %; Platelet Count 190 k/uL (150-450); RBC 3.29 m/uL (3.80-5.40); RDW 12.8 % (11.5-15.5)
[2018-11-20] MEDS: HYDROcodone/APAP 5-325MG 1 EACH TAB PO PRN ×2 (07:50→18:20)
[2018-11-20] MEDS: METOPROLOL TARTRATE 12.5 MG TAB PO SCH ×2 (08:34→22:53)
[2018-11-20] MEDS: predniSONE 10 MG TAB PO SCH (08:34)
[2018-11-20] MEDS: MEGESTROL 40 MG TAB PO SCH ×2 (08:35→16:23)
[2018-11-20] MEDS: RIVAROXABAN 10 MG TAB PO SCH (08:35)
--- NOTE | 2018-11-20 08:37 | P.PN ---
Subjective Progress Note Date: 11/20/18 This is a 73-year-old female who is status post left hip hemiarthroplasty. This is postoperative day #1 and patient is seen and evaluated at bedside. Patient does complain of soreness in the left hip today. Patient seems very drowsy this morning and falls asleep in the middle of talking. There is no family present in the room today. Patient denies any fever/chills, numbness, weakness, tingling, abdominal pain, shortness of breath or chest pain. Objective - Vital Signs Vital signs: Vital Signs Temp 101.7 F H 11/20/18 07:59 Pulse 109 H 11/20/18 07:59 Resp 12 11/20/18 07:59 BP 143/85 11/20/18 07:59 Pulse Ox 93 L 11/20/18 07:05 Intake & Output 11/19/18 11/20/18 11/20/18 18:59 06:59 18:59 Intake Total 647 Output Total 500 300 Balance 147 -300 Intake: IV 51 Oral 596 Output: Urine 400 300 Uretheral (Cardoza) 200 200 Estimated Blood Loss 100 Other: Voiding Method Indwelling Catheter Indwelling Catheter - Exam Vital signs are stable. Patient is in no acute distress and is alert and oriented 3. Calf is soft and nontender to palpation. Dressing is clean, dry, and intact. Patient has full foot and ankle motion without pain or difficulty. Neurovascular status and circulatory status are intact. - Labs CBC & Chem 7: 11/20/18 06:48 11/20/18 06:48 Labs: Abnormal Lab Results - Last 24 Hours (Table) 11/19/18 11/20/18 11/20/18 Range/Units 12:45 06:48 06:48 WBC 12.5 H 14.0 H (3.8-10.6) k/uL RBC 3.78 L 3.29 L (3.80-5.40) m/uL Hgb 10.7 L (11.4-16.0) gm/dL Hct 32.4 L (34.0-46.0) % MCV 103.1 H D (80.0-100.0) fL Neutrophils # 10.0 H 11.5 H (1.3-7.7) k/uL Chloride 109 H (98-107) mmol/L Carbon Dioxide 20 L (22-30) mmol/L Glucose 103 H (74-99) mg/dL Microbiology - Last 24 Hours (Table) 11/18/18 11:20 Urine Culture - Preliminary Urine,Catheterized Gram Neg Bacilli Assessment and Plan Assessment: Asthma COPD Hyperlipidemia Hypertension Short-term memory loss (1) Closed left hip fracture Current Visit: Yes Status: Acute Code(s): S72.002A - FRACTURE OF UNSP PART OF NECK OF LEFT FEMUR, INIT SNOMED Code(s): 740971514 (2) Fall Current Visit: Yes Status: Acute Code(s): W19.XXXA - UNSPECIFIED FALL, INITIAL ENCOUNTER SNOMED Code(s): 8284961 Plan: Continue routine postop care and pain control. Continue hip precautions with abductor pillow for 6 weeks postoperatively. Continue anticoagulation with Xarelto. Weightbearing as tolerated with a walker. Leave dressing in place for 10 days. Appreciate input from medicine. Patient is currently on Rocephin for UTI. White blood cell count is 14 today. Patient is having fevers of 101.7. Likely discharge to rehab in the next 24-48 hours.
[2018-11-20] MEDS: IPRATROPIUM-ALBUTEROL 3 ML NEB INHALATION SCH ×3 (11:56→18:58)
[2018-11-20] MEDS: ACETAMINOPHEN TAB 325 MG TAB PO PRN (14:41)
--- NOTE | 2018-11-20 15:28 | P.PN ---
Subjective Progress Note Date: 11/20/18 Principal diagnosis: Left hip fracture Patient is a 73-year-old female with a known history of asthma/COPD, short-term memory loss, hypertension and hyperlipidemia was brought to the hospital by EMS due to complaints of left hip pain after sustaining a fall this morning. Emilee cho is awake alert but confused at this time and unable to provide good history. According to the family patient was folding clothes at the time of the fall. Patient was found on the floor complaining of left hip pain. Denied any complaints of neck pain or head injury. While in the ER patient was also found to have swelling of the chin area and CT of the head and neck was done. CT showed no acute intracranial process. Diffuse arthritic changes in the cervical spine was noted. No acute fracture or dislocation. Patient was given IV morphine for pain management. Laboratory data reviewed. No complaints of fever or chills. No complaint of chest pain. Currently saturating well on 97% on room air. Left hip x-ray showed subcapital fracture of the left hip with mild angulation and foreshortening. Chest x-ray showed mild cardiomegaly. 11/19/2018 Patient is currently lying in the bed comfortable and is saturating well on room air. Patient is status post Left hip hemiarthroplasty on 11/19/2018 Patient is currently drowsy and lethargic. Denied any complaints of chest pain or shortness of breath. Family is at bedside No fever no chills. Otherwise urine culture is growing gram-negative bacilli. Patient will be started on IV antibiotics and follow-up with final culture report. Patient does have baseline memory impairment. Encourage ambulation and incentive spirometry. 11/20/2018 Patient is sitting up in the chair in no acute distress. Patient is lethargic but easily arousable. Per family at the bedside, daughter states she is still little more lethargic than normal but is almost to her baseline. Patient denies any shortness of breath, chest pain, or palpitations at this time. Patient denies any nausea or vomiting and is tolerating diet Patient has not been eating very well and daughter believes it is due to the type of foods that are being ordered. Daughter is requesting additional mashed potatoes as patient eats these well and tolerates well. Patient is currently still on IV antibiotics with cultures showing gram-negative bacilli and will await culture finalization. Per nursing staff patient had low-grade fever today and was slightly tachycardic and is being monitored closely. Lactic acid was negative. PT/OT are following the patient is in too lethargic to work with. Patient transitioned from the bed to the chair with 2 person maximum assist. Will continue to monitor closely. Objective - Vital Signs Vital signs: Vital Signs Temp 99.7 F H 11/20/18 14:24 Pulse 92 11/20/18 14:58 Resp 12 11/20/18 15:03 BP 118/81 11/20/18 14:24 Pulse Ox 100 11/20/18 14:24 Intake & Output 11/19/18 11/20/18 11/20/18 18:59 06:59 18:59 Intake Total 647 280 Output Total 500 300 350 Balance 147 -300 -70 Intake: IV 51 Intake, IV Titration 230 Amount Lactated Ringers 1,000 ml 180 @ 20 mls/hr IV .Q24H [facility] Rx#:[id number] cefTRIAXone 1 gm In 50 Sodium Chloride 0.9% 50 ml @ 100 mls/hr IVPB Q24HR [facility] Rx#:[id number] Oral 596 50 Output: Urine 400 300 350 Uretheral (Cardoza) 200 200 Estimated Blood Loss 100 Other: Voiding Method Indwelling Catheter Indwelling Catheter Indwelling Catheter - Exam PHYSICAL EXAMINATION: Patient is sitting up in the chair comfortably, no acute distress, sleeping but arousable. Patient is confused. HEENT: Normocephalic. Neck is supple. Pupils reactive. Nostrils clear. Oral cavity is moist. Ears reveal no drainage. Neck reveals no JVD, carotid bruits, or thyromegaly. CHEST EXAMINATION: Trachea is central. Symmetrical expansion. Bibasilar diminished air entry. Lung shea clear to auscultation and percussion. CARDIAC: Normal S1, S2 with no gallops. No murmurs ABDOMEN: Soft. Bowel sounds normal. No organomegaly. No abdominal bruits. Extremities: reveal no edema. No clubbing or cyanosis Neurologically awake, alert, oriented x2-3 with well-coordinated movements. No focal deficits noted Skin: No rash or skin lesions. Psychiatric: Coperative. Nonsuicidal. Lethargic but arousable Musculoskeletal: No joint swelling or deformity. Left hip trochanteric tenderness. Decreased range of motion. - Labs CBC & Chem 7: 11/20/18 06:48 11/20/18 06:48 Labs: Abnormal Lab Results - Last 24 Hours (Table) 11/20/18 11/20/18 Range/Units 06:48 06:48 WBC 14.0 H (3.8-10.6) k/uL RBC 3.29 L (3.80-5.40) m/uL Hgb 10.7 L (11.4-16.0) gm/dL Hct 32.4 L (34.0-46.0) % Neutrophils # 11.5 H (1.3-7.7) k/uL Chloride 109 H (98-107) mmol/L Carbon Dioxide 20 L (22-30) mmol/L Glucose 103 H (74-99) mg/dL Microbiology - Last 24 Hours (Table) 11/18/18 11:20 Urine Culture - Preliminary Urine,Catheterized Gram Neg Bacilli Assessment and Plan Assessment: Status post mechanical fall and left hip subcapital fracture status post left hemiarthroplasty postoperative day 1. Gram-negative bacilli urinary tract infection Mild rhabdomyolysis CK level 248 Mild leukocytosis is 14.0 likely reactive. Asthma/COPD. Not in exacerbation Anxiety Short-term memory loss Hypertension Hyperlipidemia DVT prophylaxis. Recommendations and discussion: Recommend continue current medications, management, and symptomatic treatment. Following along with orthopedic surgery closely. Will continue with bronc hodilators and prednisone at this time. Gentle IV hydration as patient isn't eating very much. Will continue to monitor vital signs and labs closely. Patient is currently on IV antibiotics for urinary tract infection and awaiting culture finalization. PT/OT are following. Guarded prognosis. Further recommendations to follow. Will continue to follow closely.
[2018-11-20] MEDS: LACTATED RINGERS 1,000 ML IV SCH (20:12)
[2018-11-20] MEDS: SENNOSIDES-DOCUSATE SODIUM 1 EACH TAB PO SCH (22:53)
[2018-11-21] MEDS: MEGESTROL 40 MG TAB PO SCH ×3 (02:10→15:14)
[2018-11-21] MEDS: ACETAMINOPHEN TAB 325 MG TAB PO PRN (03:59)
[2018-11-21 07:43] LABS: Basophils # (A) 0.1 k/uL (0-0.2); Basophils % (A) 1 %; Eosinophils % (A) 0 %; HCT 29.2 % (34.0-46.0); HGB 9.7 gm/dL (11.4-16.0); Lymphocytes # (A) 1.4 k/uL (1.0-4.8); Lymphocytes % (A) 11 %; MCH 32.4 pg (25.0-35.0); MCHC 33.2 g/dL (31.0-37.0); MCV 97.6 fL (80.0-100.0); Mean Platelet Volume 7.6; Monocytes # (A) 0.6 k/uL (0-1.0); Monocytes % (A) 5 %; Neutrophils # (A) 10.3 k/uL (1.3-7.7); Neutrophils % (A) 82 %; Platelet Count 186 k/uL (150-450); RBC 2.99 m/uL (3.80-5.40); RDW 12.8 % (11.5-15.5); WBC 12.5 k/uL (3.8-10.6)
[2018-11-21] MEDS: predniSONE 10 MG TAB PO SCH (08:25)
[2018-11-21] MEDS: RIVAROXABAN 10 MG TAB PO SCH (08:25)
[2018-11-21] MEDS: METOPROLOL TARTRATE 12.5 MG TAB PO SCH (08:25)
[2018-11-21] MEDS: HYDROcodone/APAP 5-325MG 1 EACH TAB PO PRN ×2 (08:26→15:14)
[2018-11-21] MEDS: SYMBICORT 160-4.5 MCG INHALER INHALATION SCH (08:27)
[2018-11-21] MEDS: IPRATROPIUM-ALBUTEROL 3 ML NEB INHALATION SCH ×3 (08:27→16:56)
[2018-11-21] MEDS ORDERED: AMOXIC-POT CLAV 875-125MG 1 EACH TAB PO SCH (10:15)
--- NOTE | 2018-11-21 11:55 | P.DS ---
Providers Date of admission: 11/18/18 12:29 Expected date of discharge: 11/21/18 Attending physician: Venkat Nolasco Consults: 11/18/18 12:29 Consult Physician Stat Consulting Provider: Susan Torres Consult Reason/Comments: Medical clearance for surgery Do you want consulting provider notified?: Already Contacted Primary care physician: Constantin Snider - Discharge Diagnosis(es) (1) Closed left hip fracture Current Visit: Yes Status: Acute (2) Fall Current Visit: Yes Status: Acute Hospital Course: This is a 73-year-old female who sustained a subcapital fracture of the left hip after a fall. After discussion and consideration the patient and her family elect to proceed with left hip hemiarthroplasty. The patient is seen preoperatively by Dr. Nolasco and medically cleared for surgery by internal medicine. Patient was admitted to [facility] on 11/18/2018. Left hip hemiarthroplasty is performed on 11/19/2018. The procedures performed without complication or sequelae. The patient is doing well postoperatively. Labs and vital signs are stable on day of discharge. On day of discharge patient's hip incision is healing well. There is minimal erythema. There is no drainage noted at this time. There is minimal soft tissue swelling to the hip and thigh. Patient has full foot and ankle motion without difficulty or pain. Calf is soft and nontender to palpation. Neurova scular status to the left lower extremity is intact. Patient is discharged to rehab in good condition. Please see med rec for accurate list of home medications. Patient Condition at Discharge: Fair Plan - Discharge Summary Discharge Rx Participant: No New Discharge Prescriptions: New HYDROcodone/APAP 5-325MG [[place] 5-325] 1 - 2 tab PO Q6HR PRN #56 tab PRN Reason: Pain Sennosides [Senokot] 1 tab PO BID #60 tablet Rivaroxaban [Xarelto] 10 mg PO DAILY #33 tab No Action Albuterol Inhaler [Ventolin Hfa Inhaler] 2 puff INHALATION RT-Q6H PRN PRN Reason: Shortness Of Breath Aspirin EC [Ecotrin Low Dose] 81 mg PO DAILY Budesonide/Formoterol Fumarate [Symbicort 160-4.5 Mcg Inhaler] 2 puff INHALATION RT-BID Ferrous Sulfate [Iron (65 MG Elemental)] 325 mg PO BID Megestrol Acetate 20 mg PO TID predniSONE 10 mg PO DAILY #30 tab Metoprolol Tartrate 12.5 mg PO BID #0 Ipratropium-Albuterol Nebulize [Duoneb 0.5 mg-3 mg/3 ml Soln] 3 ml INHALATION RT-QID PRN PRN Reason: Shortness Of Breath Discharge Medication List Albuterol Inhaler [Ventolin Hfa Inhaler] 2 puff INHALATION RT-Q6H PRN 04/27/18 [History] Aspirin EC [Ecotrin Low Dose] 81 mg PO DAILY 04/27/18 [History] Budesonide/Formoterol Fumarate [Symbicort 160-4.5 Mcg Inhaler] 2 puff INHALATION RT-BID 04/27/18 [History] Ferrous Sulfate [Iron (65 MG Elemental)] 325 mg PO BID 04/27/18 [History] Megestrol Acetate 20 mg PO TID 04/27/18 [History] Metoprolol Tartrate 12.5 mg PO BID #0 05/03/18 [Rx] predniSONE 10 mg PO DAILY #30 tab 05/03/18 [Rx] Ipratropium-Albuterol Nebulize [Duoneb 0.5 mg-3 mg/3 ml Soln] 3 ml INHALATION RT-QID PRN 11/18/18 [History] HYDROcodone/APAP 5-325MG [[place] 5-325] 1 - 2 tab PO Q6HR PRN #56 tab 11/21/18 [Rx] Rivaroxaban [Xarelto] 10 mg PO DAILY #33 tab 11/21/18 [Rx] Sennosides [Senokot] 1 tab PO BID #60 tablet 11/21/18 [Rx] Follow up Appointment(s)/Referral(s): Constantin Snider DO [Primary Care Provider] - 1-2 days Venkat Nolasco DO [Doctor of Osteopathic Medicine] - 2 Weeks Activity/Diet/Wound Care/Special Instructions: Weightbearing as tolerated with walker. Leave dressing intact. Dressing may be removed by home care nurse or by patient in 10 days. May shower with dressing on. Continue use of abductor pillow for 6 weeks postoperatively. Recommend use of compression stockings daily for at least 2 weeks during the day to help prevent swelling and blood clots. May remove at night before sleeping. Please follow-up with [facility] in 2 weeks and call with any questions or concerns, . Discharge Disposition: TRANSFER TO SNF/ECF
--- NOTE | 2018-11-21 14:53 | P.PN ---
Subjective Progress Note Date: 11/21/18 Principal diagnosis: Left hip fracture Patient is a 73-year-old female with a known history of asthma/COPD, short-term memory loss, hypertension and hyperlipidemia was brought to the hospital by EMS due to complaints of left hip pain after sustaining a fall this morning. Emilee cho is awake alert but confused at this time and unable to provide good history. According to the family patient was folding clothes at the time of the fall. Patient was found on the floor complaining of left hip pain. Denied any complaints of neck pain or head injury. While in the ER patient was also found to have swelling of the chin area and CT of the head and neck was done. CT showed no acute intracranial process. Diffuse arthritic changes in the cervical spine was noted. No acute fracture or dislocation. Patient was given IV morphine for pain management. Laboratory data reviewed. No complaints of fever or chills. No complaint of chest pain. Currently saturating well on 97% on room air. Left hip x-ray showed subcapital fracture of the left hip with mild angulation and foreshortening. Chest x-ray showed mild cardiomegaly. 11/19/2018 Patient is currently lying in the bed comfortable and is saturating well on room air. Patient is status post Left hip hemiarthroplasty on 11/19/2018 Patient is currently drowsy and lethargic. Denied any complaints of chest pain or shortness of breath. Family is at bedside No fever no chills. Otherwise urine culture is growing gram-negative bacilli. Patient will be started on IV antibiotics and follow-up with final culture report. Patient does have baseline memory impairment. Encourage ambulation and incentive spirometry. 11/20/2018 Patient is sitting up in the chair in no acute distress. Patient is lethargic but easily arousable. Per family at the bedside, daughter states she is still little more lethargic than normal but is almost to her baseline. Patient denies any shortness of breath, chest pain, or palpitations at this time. Patient denies any nausea or vomiting and is tolerating diet Patient has not been eating very well and daughter believes it is due to the type of foods that are being ordered. Daughter is requesting additional mashed potatoes as patient eats these well and tolerates well. Patient is currently still on IV antibiotics with cultures showing gram-negative bacilli and will await culture finalization. Per nursing staff patient had low-grade fever today and was slightly tachycardic and is being monitored closely. Lactic acid was negative. PT/OT are following the patient is in too lethargic to work with. Patient transitioned from the bed to the chair with 2 person maximum assist. Will continue to monitor closely. 11/21/2018 Patient is sitting up in the chair in no acute distress. Patient has been afebrile. Patient is more alert today and having conversation. Daughter is at the bedside stating that she has been eating more. Following along closely with orthopedic surgery and patient will likely be discharged today to [facility] for continued rehab. Patient's urine cultures resulted with E. coli and patient will be given a short course of oral antibiotics in the form of Ceftin 500 mg twice daily for 3 days and then may discontinue. Patient denies any chest pain, shortness of breath, or palpitations at this time. As mentioned previously patient has been afebrile today. Patient is tolerating diet with no reports of nausea or vomiting. Guarded prognosis. Encouraged to continue working with PT/OT as well as incentive spirometry. Objective - Vital Signs Vital signs: Vital Signs Temp 98.7 F 11/21/18 07:17 Pulse 90 11/21/18 12:12 Resp 15 11/21/18 08:00 BP 117/82 11/21/18 07:17 Pulse Ox 98 11/21/18 07:17 Intake & Output 11/20/18 11/21/18 11/21/18 18:59 06:59 18:59 Intake Total 280 360 Output Total 350 Balance -70 360 Intake: Intake, IV Titration 230 Amount Lactated Ringers 1,000 ml 180 @ 20 mls/hr IV .Q24H MACI Rx#:[id number] cefTRIAXone 1 gm In 50 Sodium Chloride 0.9% 50 ml @ 100 mls/hr IVPB Q24HR [facility]I Rx#:[id number] Oral 50 360 Output: Urine 350 Other: Voiding Method Indwelling Catheter Indwelling Catheter Indwelling Catheter - Exam PHYSICAL EXAMINATION: Patient is sitting up in the chair comfortably, no acute distress, sleeping but arousable. Patient is more alert and baseline per daughter HEENT: Normocephalic. Neck is supple. Pupils reactive. Nostrils clear. Oral cavity is moist. Ears reveal no drainage. Neck reveals no JVD, carotid bruits, or thyromegaly. CHEST EXAMINATION: Trachea is central. Symmetrical expansion. Bibasilar diminished air entry. Lung shea clear to auscultation and percussion. CARDIAC: Normal S1, S2 with no gallops. No murmurs ABDOMEN: Soft. Bowel sounds normal. No organomegaly. No abdominal bruits. Extremities: reveal no edema. No clubbing or cyanosis Neurologically awake, alert, oriented x2-3 with well-coordinated movements. No focal deficits noted Skin: No rash or skin lesions. Dressing of the left hip is dry and intact Psychiatric: Coperative. Nonsuicidal. Lethargic but arousable Musculoskeletal: No joint swelling or deformity. Left hip trochanteric tendern ess. Decreased range of motion. - Labs CBC & Chem 7: 11/21/18 06:27 11/20/18 06:48 Labs: Abnormal Lab Results - Last 24 Hours (Table) 11/21/18 Range/Units 06:27 WBC 12.5 H (3.8-10.6) k/uL RBC 2.99 L (3.80-5.40) m/uL Hgb 9.7 L (11.4-16.0) gm/dL Hct 29.2 L (34.0-46.0) % Neutrophils # 10.3 H (1.3-7.7) k/uL Microbiology - Last 24 Hours (Table) 11/20/18 07:39 Blood Culture - Preliminary Blood No Growth after 24 hours 11/18/18 11:20 Urine Culture - Final Urine,Catheterized Escherichia coli Assessment and Plan Assessment: Status post mechanical fall and left hip subcapital fracture status post left hemiarthroplasty postoperative day 2. Gram-negative bacilli urinary tract infection, final cultures show E. coli and patient will be started on Ceftin upon discharge to rehab and will continue a short course for 3 days Mild rhabdomyolysis CK level 248 Mild leukocytosis is 12.5 likely reactive. Asthma/COPD. Not in exacerbation Anxiety Short-term memory loss Hypertension Hyperlipidemia DVT prophylaxis. Recommendations and discussion: Recommend continue current medications, management, and symptomatic treatment. Following along with orthopedic surgery closely. Will continue to monitor vital signs and labs closely. Urine cultures are finalized showing E. coli and will be started on a short course of oral antibiotics in the form of Ceftin upon discharge to the rehab facility. PT/OT are following. Guarded prognosis. Further recommendations to follow. Patient is being discharged orthopedic carlin rgery today to [facility] rehab facility.
[2018-11-21 16:24] VITALS: BP 110/75; PULSE 100; RESP 16; TEMP 98.4
== END 2018-11-21 17:56 | DRG 470 ==
LOC: EC 09:34 → 4SSUR 12:29
PROVIDERS: ADMIT Orthopaedic Surgery; ATTEND Orthopaedic Surgery
PROC: 0SRS0JA Replacement of Left Hip Joint, Femoral Surface with Synthetic Substitute, Uncemented, Open Approach (ICD-10-PCS; principal; 2018-11-18)
DX: S72.012A Unspecified intracapsular fracture of left femur, initial encounter for closed fracture (principal); M62.82 Rhabdomyolysis; N39.0 Urinary tract infection, site not specified; W01.0XXA Fall on same level from slipping, tripping and stumbling without subsequent striking against object, initial encounter; Y92.009 Unspecified place in unspecified non-institutional (private) residence as the place of occurrence of the external cause; J44.9 Chronic obstructive pulmonary disease, unspecified; I10 Essential (primary) hypertension; E78.5 Hyperlipidemia, unspecified; F41.9 Anxiety disorder, unspecified; Z79.899 Other long term (current) drug therapy; Z79.82 Long term (current) use of aspirin; Z79.51 Long term (current) use of inhaled steroids; Z79.52 Long term (current) use of systemic steroids; B96.20 Unspecified Escherichia coli [E. coli] as the cause of diseases classified elsewhere; Z82.49 Family history of ischemic heart disease and other diseases of the circulatory system; G31.84 Mild cognitive impairment of uncertain or unknown etiology
CPT/HCPCS: 36415; 51702; 70450; 71045; 72125; 73501; 73502; 80048; 80053; 81001; 82550; 83605; 83690; 83735; 85025; 86850; 86900; 86901; 87040; 87077; 87086; 87186; 88305; 88311; 93005; 94640; 96374; 99285

== ENCOUNTER 2019-07-05 12:35 | Inpatient (IN) | payer MEDICARE ==
[2019-07-05] MEDS ORDERED: SODIUM CHLORIDE 0.9% 500 ML 500 ML IV STA (13:07)
--- NOTE | 2019-07-05 13:22 | ED ---
Dizziness HPI - General Chief Complaint: Syncope Stated Complaint: Syncope Time Seen by Provider: 07/05/19 13:05 Source: patient Mode of arrival: EMS Limitations: no limitations - History of Present Illness Initial Comments: Patient is a 73-year-old female with history of heart failure, COPD, dementia presenting to emergency Department with a chief complaint of syncope. Daughter is present in the room to answer any additional questions. Daughter states patient lives with her and this morning as she was attempting to wash her, the patient began shaking legs then rolled her eyes back. There was also foaming in the mouth. Daughter states the patient felt confused and tired afterward. States she has no history of seizures but as of the last month she has had decreased appetite and is increasingly combative. States the patient had increased foul smelling urine. States the patient continues to have abnormal sleeping and eating patterns. States the patient refuses to take her medications. States the patient does not like to follow direction and attempts to walk without any assistance. - Related Data Home Medications Medication Instructions Recorded Confirmed Albuterol Inhaler (Mhu) [Ventolin 2 puff INHALATION RT-Q6H PRN 04/27/18 11/18/18 Hfa Inhaler (Mhu)] Budesonide/Formoterol Fumarate 2 puff INHALATION RT-BID 04/27/18 11/18/18 [Symbicort 160-4.5 Mcg Inhaler] Ferrous Sulfate [Iron (65 MG 325 mg PO BID 04/27/18 11/18/18 Elemental)] Megestrol Acetate 20 mg PO TID 04/27/18 11/18/18 Ipratropium-Albuterol Nebulize 3 ml INHALATION RT-QID PRN 11/18/18 11/18/18 [Duoneb 0.5 mg-3 mg/3 ml Soln] Previous Rx's Medication Instructions Recorded Metoprolol Tartrate 12.5 mg PO BID #0 05/03/18 predniSONE 10 mg PO DAILY #30 tab 05/03/18 Acetaminophen Tab [Tylenol] 650 mg PO Q6HR PRN tab 11/21/18 Cefuroxime Axetil [Ceftin] 500 mg PO BID 3 Days #6 tab 11/21/18 HYDROcodone/APAP 5-325MG [[place] 1 - 2 tab PO Q6HR PRN #56 tab 11/21/18 5-325] Magnesium Hydroxide [Milk of 2,400 mg PO DAILY PRN ml 11/21/18 Magnesia Concentrate] Rivaroxaban [Xarelto] 10 mg PO DAILY #33 tab 11/21/18 Sennosides [Senokot] 1 tab PO BID #60 tablet 11/21/18 Allergies Allergy/AdvReac Type Severity Reaction Status Date / Time levofloxacin Allergy Swelling Verified 07/05/19 12:55 Review of Systems ROS Statement: Those systems with pertinent positive or pertinent negative responses have been documented in the HPI. ROS Other: All systems not noted in ROS Statement are negative. Past Medical History Past Medical History: Asthma, COPD, Dementia, Hyperlipidemia, Hypertension Additional Past Medical History / Comment(s): short term memory loss History of Any Multi-Drug Resistant Organisms: None Reported Past Surgical History: Back Surgery, Orthopedic Surgery Additional Past Surgical History / Comment(s): abdominal , shoulder Past Anesthesia/Blood Transfusion Reactions: No Reported Reaction Past Psychological History: Anxiety Smoking Status: Never smoker Past Alcohol Use History: None Reported Past Drug Use History: None Reported - Past Family History Mother Family Medical History: Hypertension General Exam Limitations: no limitations General appearance: alert, in no apparent distress Head exam: Present: atraumatic, normocephalic, normal inspection Eye exam: Present: normal appearance, PERRL, EOMI Pupils: Present: normal accommodation ENT exam: Present: normal exam, normal oropharynx, mucous membranes moist Neck exam: Present: normal inspection, full ROM Respiratory exam: Present: normal lung sounds bilaterally. Absent: respiratory distress, wheezes, rales, rhonchi, stridor Cardiovascular Exam: Present: regular rate, normal rhythm, normal heart sounds Extremities exam: Present: normal inspection, full ROM, other (+2 dorsalis pedis and posterior tibialis bilaterally.). Absent: pedal edema Back exam: Present: normal inspection, full ROM Neurological exam: Present: alert Psychiatric exam: Present: normal affect, normal mood Skin exam: Present: warm, dry, intact, normal color Course Vital Signs 07/05/19 07/05/19 12:52 15:00 Temperature 98.7 F Pulse Rate 56 L 64 Respiratory 18 18 Rate Blood Pressure 128/97 148/96 O2 Sat by Pulse 100 98 Oximetry Medical Decision Making - Medical Decision Making Patient is 73-year-old female with history of COPD, heart failure and moderate to severe dementia presenting to the emergency department with chief complaint of syncope. Patient brought to the ED via EMS for suspected seizure. Patient did appear to have a tonic-clonic seizure followed by postictal state. Patient has no previous history of seizures. According to the daughter, the patient continues to be increasingly combative but has decreased appetite and refuses to take an over medication. Daughters also concern for possible falls considering the patient attempts to walk without any assistance. CT of the brain and C- spine is unremarkable. Chest x-ray reveals a tortuous aorta. EKG shows sinus rhythm with premature SVT. BNP pending. CBC and CMP are unremarkable. UA does show elevated leukocyte esterase, nitrates and white blood cells. A suspected urinary tract infection. Patient given 1 g of IV Rocephin. Patient will be admitted for further medical management. Case discussed with Dr. Meredith. Admitting physician is . Neurology on consult - Lab Data Result diagrams: 07/05/19 13:00 07/05/19 15:06 Lab Results 07/05/19 07/05/19 07/05/19 Range/Units 13:00 15:06 15:06 WBC 5.1 (3.8-10.6) k/uL RBC 3.42 L (3.80-5.40) m/uL Hgb 10.2 L (11.4-16.0) gm/dL Hct 32.4 L (34.0-46.0) % MCV 94.7 (80.0-100.0) fL MCH 29.7 (25.0-35.0) pg MCHC 31.3 (31.0-37.0) g/dL RDW 13.0 (11.5-15.5) % Plt Count 299 (150-450) k/uL Neutrophils % 54 % Lymphocytes % 35 % Monocytes % 5 % Eosinophils % 3 % Basophils % 1 % Neutrophils # 2.8 (1.3-7.7) k/uL Lymphocytes # 1.8 (1.0-4.8) k/uL Monocytes # 0.3 (0-1.0) k/uL Eosinophils # 0.2 (0-0.7) k/uL Basophils # 0.1 (0-0.2) k/uL Hypochromasia Slight PT 10.6 (9.0-12.0) sec INR 1.0 (<1.2) APTT 22.3 (22.0-30.0) sec Sodium 138 (137-145) mmol/L Potassium 4.1 (3.5-5.1) mmol/L Chloride 107 (98-107) mmol/L Carbon Dioxide 23 (22-30) mmol/L Anion Gap 8 mmol/L BUN 9 (7-17) mg/dL Creatinine 0.78 (0.52-1.04) mg/dL Est GFR (CKD-EPI)AfAm 88 (>60 ml/min/1.73 sqM) Est GFR (CKD-EPI)NonAf 76 (>60 ml/min/1.73 sqM) Glucose 65 L (74-99) mg/dL Plasma Lactic Acid Nolberto (0.7-2.0) mmol/L Calcium 9.8 (8.4-10.2) mg/dL Total Bilirubin 0.8 (0.2-1.3) mg/dL AST 16 (14-36) U/L ALT <6 (4-34) U/L Alkaline Phosphatase 82 (38-126) U/L Troponin I (0.000-0.034) ng/mL Total Protein 6.9 (6.3-8.2) g/dL Albumin 3.4 L (3.5-5.0) g/dL Urine Color Urine Appearance (Clear) Urine pH (5.0-8.0) Ur Specific [place] (1.001-1.035) Urine Protein (Negative) Urine Glucose (UA) (Negative) Urine Ketones (Negative) Urine Blood (Negative) Urine Nitrite (Negative) Urine Bilirubin (Negative) Urine Urobilinogen (<2.0) mg/dL Ur Leukocyte Esterase (Negative) Urine RBC (0-5) /hpf Urine WBC (0-5) /hpf Ur Squamous Epith Cells (0-4) /hpf Urine Bacteria (None) /hpf Urine Mucus (None) /hpf 07/05/19 07/05/19 07/05/19 Range/Units 15:06 15:06 15:10 WBC (3.8-10.6) k/uL RBC (3.80-5.40) m/uL Hgb (11.4-16.0) gm/dL Hct (34.0-46.0) % MCV (80.0-100.0) fL MCH (25.0-35.0) pg MCHC (31.0-37.0) g/dL RDW (11.5-15.5) % Plt Count (150-450) k/uL Neutrophils % % Lymphocytes % % Monocytes % % Eosinophils % % Basophils % % Neutrophils # (1.3-7.7) k/uL Lymphocytes # (1.0-4.8) k/uL Monocytes # (0-1.0) k/uL Eosinophils # (0-0.7) k/uL Basophils # (0-0.2) k/uL Hypochromasia PT (9.0-12.0) sec INR (<1.2) APTT (22.0-30.0) sec Sodium (137-145) mmol/L Potassium (3.5-5.1) mmol/L Chloride (98-107) mmol/L Carbon Dioxide (22-30) mmol/L Anion Gap mmol/L BUN (7-17) mg/dL Creatinine (0.52-1.04) mg/dL Est GFR (CKD-EPI)AfAm (>60 ml/min/1.73 sqM) Est GFR (CKD-EPI)NonAf (>60 ml/min/1.73 sqM) Glucose (74-99) mg/dL Plasma Lactic Acid Nolberto 1.8 (0.7-2.0) mmol/L Calcium (8.4-10.2) mg/dL Total Bilirubin (0.2-1.3) mg/dL AST (14-36) U/L ALT (4-34) U/L Alkaline Phosphatase (38-126) U/L Troponin I <0.012 (0.000-0.034) ng/mL Total Protein (6.3-8.2) g/dL Albumin (3.5-5.0) g/dL Urine Color Yellow Urine Appearance Cloudy H (Clear) Urine pH 6.0 (5.0-8.0) Ur Specific [place] 1.015 (1.001-1.035) Urine Protein Trace H (Negative) Urine Glucose (UA) Negative (Negative) Urine Ketones Negative (Negative) Urine Blood Negative (Negative) Urine Nitrite Positive H (Negative) Urine Bilirubin Negative (Negative) Urine Urobilinogen 2.0 (<2.0) mg/dL Ur Leukocyte Esterase Large H (Negative) Urine RBC 1 (0-5) /hpf Urine WBC 71 H (0-5) /hpf Ur Squamous Epith Cells <1 (0-4) /hpf Urine Bacteria Many H (None) /hpf Urine Mucus Rare H (None) /hpf - EKG Data EKG Comments: Sinus rhythm with premature SVT. Andrés A 60, WI 156, QRS 74, QTC 426. Disposition Clinical Impression: Decreased appetite, Urinary tract infection, New onset seizure Disposition: ADMITTED IP TO THIS HOSP Condition: Good Additional Instructions: Patient will be admitted Is patient prescribed a controlled substance at d/c from ED?: No Referrals: Nonstaff,Physician [REFERRING] - 1-2 days Time of Disposition: 16:21
[2019-07-05 13:35] LABS: Basophils # (A) 0.1 k/uL (0-0.2); Basophils % (A) 1 %; Eosinophils # (A) 0.2 k/uL (0-0.7); Eosinophils % (A) 3 %; HCT 32.4 % (34.0-46.0); HGB 10.2 gm/dL (11.4-16.0); Hypochromasia Slight; Lymphocytes # (A) 1.8 k/uL (1.0-4.8); Lymphocytes % (A) 35 %; MCH 29.7 pg (25.0-35.0); MCHC 31.3 g/dL (31.0-37.0); MCV 94.7 fL (80.0-100.0); Mean Platelet Volume 8.9; Monocytes # (A) 0.3 k/uL (0-1.0); Monocytes % (A) 5 %; Neutrophils # (A) 2.8 k/uL (1.3-7.7); Neutrophils % (A) 54 %; Platelet Count 299 k/uL (150-450); RBC 3.42 m/uL (3.80-5.40); WBC 5.1 k/uL (3.8-10.6)
--- NOTE | 2019-07-05 14:04 | XR ---
EXAMINATION TYPE: XR chest 2V DATE OF EXAM: 07/05/2019 COMPARISON: 11/19/2018 HISTORY: Syncope TECHNIQUE: Frontal and lateral views of the chest are obtained. FINDINGS: There is no focal air space opacity, pleural effusion, or pneumothorax seen. The cardiac silhouette size is within normal limits. There is severe tortuosity of the thoracic aorta although this appears similar to 11/19/2018. The osseous structures are intact. Postsurgical and/or posttrauma tic change of the bilateral acromioclavicular joints. Alternatively severe arthropathy can produce er osion of the distal clavicles and joint space widening. Diffuse osseous demineralization is seen. The re are cholecystectomy clips. IMPRESSION: Chronic changes with no acute cardiopulmonary process. Severe tortuosity of the thoracic aorta. Aneurysm is possible although finding does appear similar to the prior.
--- NOTE | 2019-07-05 14:25 | CT ---
EXAMINATION TYPE: CT brain cspine wo con DATE OF EXAM: 07/05/2019 COMPARISON: Prior exam 11/18/2018 HISTORY: Syncope CT DLP: 1311.9 mGycm Automated exposure control for dose reduction was used. TECHNIQUE: CT scan of the head and cervical spine are performed without contrast. FINDINGS: There is no acute intracranial hemorrhage, mass effect, or midline shift identified. The ventricles and sulci are within normal limits in size. There is stable periventricular white matter low-attenuation, cortical atrophy. The globes are intact and the visualized sinuses are clear. Cervical spine is visualized in its entirety from C1 through upper thoracic levels and demonstrates s table alignment without evidence of acute fracture or dislocation. Prevertebral soft tissue appears within normal limits. Changes of degenerative disc disease are stable. The C1-C2 articulation is unre markable. Ascending aorta measures approximately 4.3 cm. IMPRESSION: 1. There is no acute fracture or dislocation evident in the cervical spine. 2. No acute intracranial hemorrhage, mass effect, or midline shift is seen. 3. Ascending aortic aneurysm similar to prior.
[2019-07-05 15:33] LABS: Appearance,Urine Cloudy (Clear); Bacteria,Urine Many /hpf; Bilirubin,Urine Negative (Negative); Blood,Urine Negative (Negative); Color,Urine Yellow; Glucose,Urine (UA) Negative (Negative); Ketones,Urine Negative (Negative); Leukocyte Esterase,Urine Large (Negative); Mucus,Urine Rare /hpf; Nitrite,Urine Positive (Negative); Protein,Urine Trace (Negative); RBC,Urine 1 /hpf (0-5); Specific Gravity,Urine 1.015 (1.001-1.035); Squamous Epithelial Cell,Urine <1 /hpf (0-4); WBC,Urine 71 /hpf (0-5)
[2019-07-05 15:49] LABS: ALT <6 U/L (4-34); AST 16 U/L (14-36); African American GFR (CKD) 88 (>60 ml/min/1.73 sqM); Albumin 3.4 g/dL (3.5-5.0); Alkaline Phosphatase 82 U/L (38-126); Anion Gap 8 mmol/L; Blood Urea Nitrogen 9 mg/dL (7-17); Calcium 9.8 mg/dL (8.4-10.2); Carbon Dioxide 23 mmol/L (22-30); Chloride 107 mmol/L (98-107); Glucose 65 mg/dL (74-99); Non-African American GFR(CKD) 76 (>60 ml/min/1.73 sqM); Potassium 4.1 mmol/L (3.5-5.1); Sodium 138 mmol/L (137-145); Total Bilirubin 0.8 mg/dL (0.2-1.3); Total Protein 6.9 g/dL (6.3-8.2)
[2019-07-05 16:03] LABS: Partial Thromboplastin Time 22.3 sec (22.0-30.0); Prothrombin Time 10.6 sec (9.0-12.0)
[2019-07-05] MEDS ORDERED: cefTRIAXone IN SWFI 1,000 MG/10 ML SYRINGE IVP STA (16:18)
[2019-07-05] MEDS ORDERED: ONDANSETRON 4 MG/2 ML VIAL IVP PRN (16:22)
[2019-07-05] MEDS ORDERED: NALOXONE 0.4 MG/ML 1 ML VIAL IV PRN (16:22)
[2019-07-05] MEDS ORDERED: ACETAMINOPHEN TAB 325 MG TAB PO PRN (16:22)
[2019-07-05] MEDS ORDERED: MORPHINE SULFATE 4 MG/ML SYRINGE IV PRN (16:22)
[2019-07-05] MEDS ORDERED: HYDROcodone/APAP 5-325MG 1 EACH TAB PO PRN (16:22)
[2019-07-05] MEDS ORDERED: HYDROmorphone 1 MG/ML 1 ML SYRINGE IVP PRN (16:22)
[2019-07-05] MEDS ORDERED: LORazepam 2 MG/ML INJ IV PRN (16:22)
[2019-07-05] MEDS: METOPROLOL TARTRATE 12.5 MG TAB PO SCH (22:42)
[2019-07-05] MEDS: SODIUM CHLORIDE 0.9% 1,000 ML IV SCH (22:42)
[2019-07-06] MEDS: ASPIRIN 81 MG PO SCH (08:49)
[2019-07-06] MEDS: METOPROLOL TARTRATE 12.5 MG TAB PO SCH ×2 (08:49→21:05)
[2019-07-06] MEDS: POTASSIUM CHLORIDE ER 10 MEQ TAB.ER.PRT PO SCH (08:49)
[2019-07-06] MEDS: FERROUS SULFATE 325 MG TAB PO SCH (08:49)
[2019-07-06] MEDS: VIT A,C & E-LUTEIN-MINERALS 1 EACH TAB PO SCH (08:49)
[2019-07-06] MEDS: SODIUM CHLORIDE 0.9% 1,000 ML IV SCH ×2 (08:50→21:07)
[2019-07-06] MEDS: IPRATROPIUM 0.5 MG/2.5 ML NEBU INHALATION SCH ×4 (09:00→20:29)
[2019-07-06] MEDS: MEGESTROL 40 MG TAB PO SCH ×3 (10:46→21:05)
[2019-07-06] MEDS: ENOXAPARIN 40 MG/0.4 ML SYRINGE SQ SCH (11:31)
[2019-07-06 13:13] VITALS: BMI 20.9
--- NOTE | 2019-07-06 18:21 | EEG ---
ELECTROENCEPHALOGRAM REPORT DATE OF SERVICE: 07/06/2019. HISTORY: This is an inpatient EEG performed on a 73-year-old female who presented with a possible witnessed seizure by family. She has never had any known seizures in the past. This EEG is performed to rule out subclinical seizure activity. TECHNICAL REPORT: This is an inpatient EEG performed on the [employer] EEG monitor with electrodes placed according to the international 10-20 system and a single EKG channel. Simultaneous video EEG monitoring was performed. This EEG was reviewed in both longitudinal bipolar common average referential and transverse montages. Photic stimulation was performed. Hyperventilation was not performed. The recording begins with excessive motion and movement artifact, making the recording technically difficult to interpret. Excessive 60-cycle artifact contaminates the tracing throughout the study. The patient is noted to be moving constantly. There is frequent electrode artifact in the temporal lobe. An irregular heart rate is noted. Photic stimulation is performed at various flash frequencies and fails to elicit a consistent driving response. Intermittent frontal slowing is noted. INTERPRETATION: This is an abnormal EEG due to the followin. An irregular EKG. 2. Intermittent frontal slowing. This EEG consists primarily of drowsiness, wakefulness. The background is considered slow for the patient's stated age, and it is unclear if she is drowsy or this could be her baseline mentation. This EEG was technically difficult and therefore cannot exclude an underlying seizure tendency. If clinically indicated, a more prolonged overnight study and/or serial EEGs is strongly recommended. Clinical correlation is required. JORDAN / MIRA: [id number] / EH
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
[2019-07-07 07:54] LABS: T4, Free (Free Thyroxine) 1.3 ng/dL (0.78-2.19)
[2019-07-07] MEDS: IPRATROPIUM 0.5 MG/2.5 ML NEBU INHALATION SCH ×3 (08:47→16:10)
[2019-07-07] MEDS: MEGESTROL 40 MG TAB PO SCH (08:58)
[2019-07-07] MEDS: FERROUS SULFATE 325 MG TAB PO SCH (08:58)
[2019-07-07] MEDS: POTASSIUM CHLORIDE ER 10 MEQ TAB.ER.PRT PO SCH (08:58)
[2019-07-07] MEDS: METOPROLOL TARTRATE 12.5 MG TAB PO SCH (08:59)
[2019-07-07] MEDS: ASPIRIN 81 MG PO SCH (08:59)
[2019-07-07] MEDS: VIT A,C & E-LUTEIN-MINERALS 1 EACH TAB PO SCH (08:59)
[2019-07-07] MEDS: ENOXAPARIN 40 MG/0.4 ML SYRINGE SQ SCH (08:59)
[2019-07-07 12:22] VITALS: BP 124/74; PULSE 61; RESP 22; TEMP 97.6
[2019-07-07] MEDS: SODIUM CHLORIDE 0.9% 1,000 ML IV SCH (13:49)
[2019-07-07 16:50] LABS: Folate, Serum 6.2 ng/mL
--- NOTE | 2019-07-07 23:30 | P.DS ---
Providers Date of admission: 07/05/19 16:27 Expected date of discharge: 07/07/19 Attending physician: Beni Rose Consults: 07/05/19 16:22 Consult Physician Stat Consulting Provider: Gretta Rivas Consult Reason/Comments: New-onset seizure, decreased appetite, worsening dementia Do you want consulting provider notified?: Yes [facility] Course: Chief Complaint: Seizures witnessed History of presenting complaint: This is a pleasant 73-year-old patient of Dr. Snider. Chronic stable medical conditions include COPD, dementia, hypertension, hyperlipidemia. Patient is a daughter and uses a cane. History is described in the ER included-daughter described that yesterday morning she was attempting to wash the patient. Patient began shaking her legs then rolled her eyes back. Also forming in the vault. Patient was confused and tired afterwards. No prior history of seizures. In the last 1 month patient had some decreased appetite and increasingly combative. Has a rather foul-smelling urine. Patient does have abnormal eating and sleeping pattern. Patient has been refusing to take her medications. When I saw this patient this morning patient did not remember really what happened. She remembers bumping her head many years ago. Not sure about the details. admitted with a seizure activity. No further episodes.also acute UTI and cystitis. Treated with IV antibiotics. Today-patient doing well. Did tolerate her diet. Baseline dementia. Given the first episode it was felt no need for antiseizure medications. EEG did not show any obvious epilepsy activity Consultation: Dr. Rivas from neurology Physical examination: VITAL SIGNS:97.6, 61, 22, 124/74, 99% on room air GENERAL: laying in bed, comfortable talking EYES: Pupils equal. Conjunctiva normal. HEENT: External appearance of nose and ears normal, oral cavity grossly normal. NECK: JVD not raised; masses not palpable. HEART: First and second heart sounds are normal; no edema. LUNGS: Respiratory rate normal; clear to auscultation. ABDOMEN: Soft, nontender, liver spleen not palpable, no masses palpable. PSYCH: able to hold simple conversation MUSCULOSKELETAL: Evidence of OA especially in the hands. INVESTIGATIONS, reviewed in the clinical context: EEG-4 report in the chart, showing no obvious epilepsy activity White count 5.1 hemoglobin 10.2 platelets 299 potassium 4.1 creatinine 0.78 Troponin I 0.012 UA positive for nitrite and leukoesterase, WBC Chest x-ray film personally reviewed by me-shows tortuous aorta EKG tracing personally reviewed by me-normal sinus rhythm Computed tomography scan of the brain and spine-shows DJD changes, ascending aorta measures 4.3 cm Assessment: - first episode of epilepsy with a prior history of head injury as patient describes. 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 -Ascending aortic aneurysm 4.3 cm -Mild persistent asthma and a nonsmoker -Essential hypertension -Primary osteoarthritis -Acute UTI with cystitis disposition: Home with daughter Patient Condition at Discharge: Stable Plan - Discharge Summary New Discharge Prescriptions: New Cephalexin [Keflex] 250 mg PO Q8HR #9 capsule Metoprolol Succinate (ER) [Toprol Xl] 50 mg PO HS #30 tab Lisinopril-Hctz 20-12.5 mg [Zestoretic 20-12.5] 1 tab PO DAILY #30 tab Continue Ferrous Sulfate [Iron (65 MG Elemental)] 325 mg PO DAILY Megestrol Acetate 20 mg PO TID Nystatin 1 applic TOPICAL DIRECTED PRN PRN Reason: infection Aspirin EC [Ecotrin Low Dose] 81 mg PO DAILY Multivit-Min/Iron/Folic/Lutein [Centrum Silver Women Tablet] 1 tab PO DAILY Potassium Chloride 10 meq PO DAILY HYDROcodone/APAP 5-325MG [[place] 5-325] 1 tab PO Q6HR PRN PRN Reason: Pain Tiotropium [place] [Spiriva] 1 cap INHALATION RT-DAILY Discontinued Metoprolol Tartrate 12.5 mg PO BID #0 Discharge Medication List Ferrous Sulfate [Iron (65 MG Elemental)] 325 mg PO DAILY 04/27/18 [History] Megestrol Acetate 20 mg PO TID 04/27/18 [History] Aspirin EC [Ecotrin Low Dose] 81 mg PO DAILY 07/05/19 [History] HYDROcodone/APAP 5-325MG [[place] 5-325] 1 tab PO Q6HR PRN 07/05/19 [History] Multivit-Min/Iron/Folic/Lutein [Centrum Silver Women Tablet] 1 tab PO DAILY 07/05/19 [History] Nystatin 1 applic TOPICAL DIRECTED PRN 07/05/19 [History] Potassium Chloride 10 meq PO DAILY 05/28/20 [History] Tiotropium [place] [Spiriva] 1 cap INHALATION RT-DAILY 07/05/19 [History] Cephalexin [Keflex] 250 mg PO Q8HR #9 capsule 07/07/19 [Rx] Lisinopril-Hctz 20-12.5 mg [Zestoretic 20-12.5] 1 tab PO DAILY #30 tab 07/07/19 [Rx] Metoprolol Succinate (ER) [Toprol Xl] 50 mg PO HS #30 tab 07/07/19 [Rx] Follow up Appointment(s)/Referral(s): neurology, [Other] - 4 Weeks Constantin Snider DO [Primary Care Provider] - 1 Week (call tuesday to make appt. office closed at time of discharge. Dr. Snider to make referal for Neurologist.) Patient Instructions/Handouts: Cephalexin (By mouth), Metoprolol (By mouth), Lisinopril (By mouth), Urinary Tract Infection in Women (DC) Activity/Diet/Wound Care/Special Instructions: Dr Snider to refer to neurologists for a follow up appointment for new onset seizure Discharge Disposition: HOME SELF-CARE
== END 2019-07-07 16:53 | disposition home or self-care (01) | DRG 101 ==
LOC: EC 12:35 → 4SSUR 16:27 → 5NMEDONC 16:47
PROVIDERS: ADMIT Hospitalist; ATTEND Hospitalist
DX: G40.909 Epilepsy, unspecified, not intractable, without status epilepticus (principal); N30.00 Acute cystitis without hematuria; I47.1 Supraventricular tachycardia; I11.0 Hypertensive heart disease with heart failure; F02.80 Dementia in other diseases classified elsewhere, unspecified severity, without behavioral disturbance, psychotic disturbance, mood disturbance, and anxiety; I50.9 Heart failure, unspecified; G30.1 Alzheimer's disease with late onset; I71.2 Thoracic aortic aneurysm, without rupture; E16.2 Hypoglycemia, unspecified; J44.9 Chronic obstructive pulmonary disease, unspecified; Z11.59 Encounter for screening for other viral diseases; R62.7 Adult failure to thrive; Z68.21 Body mass index [BMI] 21.0-21.9, adult; T50.906A Underdosing of unspecified drugs, medicaments and biological substances, initial encounter; Z91.128 Patient's intentional underdosing of medication regimen for other reason; E78.5 Hyperlipidemia, unspecified; F32.9 Major depressive disorder, single episode, unspecified; F41.9 Anxiety disorder, unspecified; J45.30 Mild persistent asthma, uncomplicated; M19.91 Primary osteoarthritis, unspecified site; Z72.820 Sleep deprivation; Z79.82 Long term (current) use of aspirin; Z79.51 Long term (current) use of inhaled steroids; Z79.818 Long term (current) use of other agents affecting estrogen receptors and estrogen levels; Z79.899 Other long term (current) drug therapy; Z87.820 Personal history of traumatic brain injury; Z71.3 Dietary counseling and surveillance; Y63.6 Underdosing and nonadministration of necessary drug, medicament or biological substance; Z88.1 Allergy status to other antibiotic agents; Z82.49 Family history of ischemic heart disease and other diseases of the circulatory system
CPT/HCPCS: 36415; 70450; 71046; 72125; 80053; 81001; 82607; 82746; 83605; 83880; 84439; 84443; 84481; 84484; 85025; 85610; 85730; 93005; 94640; 95816; 96361; 96374; 99285

== ENCOUNTER 2019-10-01 06:08 | Observation (INO) | payer MEDICARE ==
--- NOTE | 2019-10-01 06:32 | ED ---
General Adult HPI - General Source: patient, EMS, RN notes reviewed Mode of arrival: EMS <Cristopher Garrido - Last Filed: 10/01/19 07:53> <Wyatt Acosta - Last Filed: 10/01/19 08:03> - General Chief complaint: Chest Pain Stated complaint: chest pain Time Seen by Provider: 10/01/19 06:16 - History of Present Illness Initial comments: 73-year-old female with a past medical history of asthma COPD dementia hyperlipidemia hypertension who presents to the emergency room for a chief complaint of chest pain. Patient is a poor historian. Patient's niece apparently called EMS because patient had chest pain for about 30 minutes around 4 in the morning. Patient's daughter is not available to speak to. I did attempt to call both daughters and was unable to reach them. Patient does have dementia and is a poor historian. Patient's only complaint at this time is that her left hand is swollen. Patient does not recall any falls. She does not know when this started. She does not of this is baseline. She does admit that it is painful.Patient has no other complaints at this time including shortness of breath, chest pain, abdominal pain, nausea or vomiting, headache, or visual changes. Patient Center did arrive in the emergency room. Patient's daughter states that she was complaining of chest pain to her niece. Also states patients dementia is worsening (Cristopher Garrido) - Related Data Home Medications Medication Instructions Recorded Confirmed Ferrous Sulfate [Iron (65 MG 325 mg PO DAILY 04/27/18 07/05/19 Elemental)] Megestrol Acetate 20 mg PO TID 04/27/18 07/06/19 Aspirin EC [Ecotrin Low Dose] 81 mg PO DAILY 07/05/19 07/05/19 HYDROcodone/APAP 5-325MG [[place] 1 tab PO Q6HR PRN 07/05/19 07/05/19 5-325] Multivit-Min/Iron/Folic/Lutein 1 tab PO DAILY 07/05/19 07/05/19 [Centrum Silver Women Tablet] Nystatin 1 applic TOPICAL DIRECTED PRN 07/05/19 07/05/19 Potassium Chloride 10 meq PO DAILY 07/05/19 07/05/19 Tiotropium [place] [Spiriva] 1 cap INHALATION RT-DAILY 07/05/19 07/06/19 Previous Rx's Medication Instructions Recorded Cephalexin [Keflex] 250 mg PO Q8HR #9 capsule 07/07/19 Lisinopril-Hctz 20-12.5 mg 1 tab PO DAILY #30 tab 07/07/19 [Zestoretic 20-12.5] Metoprolol Succinate (ER) [Toprol 50 mg PO HS #30 tab 07/07/19 Xl] Allergies Allergy/AdvReac Type Severity Reaction Status Date / Time levofloxacin Allergy Swelling Verified 10/01/19 06:23 Review of Systems ROS Other: All systems not noted in ROS Statement are negative. <Cristopher Garrido - Last Filed: 10/01/19 07:53> ROS Other: All systems not noted in ROS Statement are negative. <Wyatt Acosta - Last Filed: 10/01/19 08:03> ROS Statement: Those systems with pertinent positive or pertinent negative responses have been documented in the HPI. Past Medical History Past Medical History: Asthma, COPD, Dementia, Hyperlipidemia, Hypertension Additional Past Medical History / Comment(s): short term memory loss History of Any Multi-Drug Resistant Organisms: None Reported Past Surgical History: Back Surgery, Orthopedic Surgery Additional Past Surgical History / Comment(s): abdominal , shoulder Past Anesthesia/Blood Transfusion Reactions: No Reported Reaction Past Psychological History: Anxiety Smoking Status: Never smoker Past Alcohol Use History: None Reported Past Drug Use History: None Reported - Past Family History Mother Family Medical History: Hypertension <Cristopher Garrido P - Last Filed: 10/01/19 07:53> General Exam General appearance: alert, in no apparent distress Head exam: Present: atraumatic, normocephalic, normal inspection Eye exam: Present: normal appearance, PERRL, EOMI. Absent: scleral icterus, conjunctival injection, periorbital swelling ENT exam: Present: normal exam, mucous membranes moist Neck exam: Present: normal inspection, full ROM. Absent: tenderness, meningismus, lymphadenopathy Respiratory exam: Present: normal lung sounds bilaterally. Absent: respiratory distress, wheezes, rales, rhonchi, stridor Cardiovascular Exam: Present: regular rate, normal rhythm, normal heart sounds. Absent: systolic murmur, diastolic murmur, rubs, gallop, clicks GI/Abdominal exam: Present: soft, normal bowel sounds. Absent: distended, tenderness, guarding, rebound, rigid Extremities exam: Present: other (Patient has edema to the left hand dorsal aspect. Capillary refill. Radial pulse 2+. This is not erythematous. No evidence of infection. Patient doesn't have any edema to the bilateral lower extremities or the right upper extremity.). Absent: pedal edema <Cristopher Garrido - Last Filed: 10/01/19 07:53> Course <Wyatt Acosta - Last Filed: 10/01/19 08:03> Vital Signs 10/01/19 06:10 Temperature 98.9 F Pulse Rate 65 Respiratory 16 Rate Blood Pressure 152/99 O2 Sat by Pulse 97 Oximetry - Reevaluation(s) Reevaluation #1: 10/01/19 08:03 PA supervision: I proceeded [id number] evaluation the patient did present with complaints of chest pain this morning. She has a history of multiple medical problems including dementia. Initial workup shows negative troponins over the BNP is elevated. Due to the circumstances the patient will be admitted I did discuss case with the patient's family who was present. Patient currently is resting comfortably with stable vital signs. I did discuss case with Dr. Rose (Wyatt Acosta) Medical Decision Making - Lab Data Result diagrams: 10/01/19 06:33 10/01/19 06:33 <Cristopher Garrido - Last Filed: 10/01/19 07:53> - Lab Data Result diagrams: 10/01/19 06:33 10/01/19 06:33 <Wyatt Acosta - Last Filed: 10/01/19 08:03> - Medical Decision Making Vitals are stable. CBC CMP unremarkable. Upon and is within normal limits at this time. BNP is elevated at 1680. At this time given patient's chest pain with cardiac history she will be admitted for further monitoring. (Cristopher Garrido) - Lab Data Lab Results 10/01/19 10/01/19 10/01/19 Range/Units 06:33 06:33 06:33 WBC 5.7 (3.8-10.6) k/uL RBC 3.53 L (3.80-5.40) m/uL Hgb 10.9 L (11.4-16.0) gm/dL Hct 34.4 (34.0-46.0) % MCV 97.7 (80.0-100.0) fL MCH 31.0 (25.0-35.0) pg MCHC 31.7 (31.0-37.0) g/dL RDW 13.7 (11.5-15.5) % Plt Count 192 (150-450) k/uL Neutrophils % 54 % Lymphocytes % 33 % Monocytes % 5 % Eosinophils % 5 % Basophils % 1 % Neutrophils # 3.1 (1.3-7.7) k/uL Lymphocytes # 1.9 (1.0-4.8) k/uL Monocytes # 0.3 (0-1.0) k/uL Eosinophils # 0.3 (0-0.7) k/uL Basophils # 0.1 (0-0.2) k/uL PT 10.6 (9.0-12.0) sec INR 1.0 (<1.2) APTT 21.4 L (22.0-30.0) sec Sodium 141 (137-145) mmol/L Potassium 3.5 (3.5-5.1) mmol/L Chloride 109 H (98-107) mmol/L Carbon Dioxide 25 (22-30) mmol/L Anion Gap 7 mmol/L BUN 8 (7-17) mg/dL Creatinine 0.82 (0.52-1.04) mg/dL Est GFR (CKD-EPI)AfAm 82 (>60 ml/min/1.73 sqM) Est GFR (CKD-EPI)NonAf 71 (>60 ml/min/1.73 sqM) Glucose 78 (74-99) mg/dL Calcium 10.1 (8.4-10.2) mg/dL Magnesium 2.1 (1.6-2.3) mg/dL Total Bilirubin 1.6 H (0.2-1.3) mg/dL AST 22 (14-36) U/L ALT 8 (4-34) U/L Alkaline Phosphatase 63 (38-126) U/L Troponin I (0.000-0.034) ng/mL NT-Pro-B Natriuret Pep pg/mL Total Protein 6.4 (6.3-8.2) g/dL Albumin 3.4 L (3.5-5.0) g/dL 10/01/19 10/01/19 Range/Units 06:33 06:33 WBC (3.8-10.6) k/uL RBC (3.80-5.40) m/uL Hgb (11.4-16.0) gm/dL Hct (34.0-46.0) % MCV (80.0-100.0) fL MCH (25.0-35.0) pg MCHC (31.0-37.0) g/dL RDW (11.5-15.5) % Plt Count (150-450) k/uL Neutrophils % % Lymphocytes % % Monocytes % % Eosinophils % % Basophils % % Neutrophils # (1.3-7.7) k/uL Lymphocytes # (1.0-4.8) k/uL Monocytes # (0-1.0) k/uL Eosinophils # (0-0.7) k/uL Basophils # (0-0.2) k/uL PT (9.0-12.0) sec INR (<1.2) APTT (22.0-30.0) sec Sodium (137-145) mmol/L Potassium (3.5-5.1) mmol/L Chloride (98-107) mmol/L Carbon Dioxide (22-30) mmol/L Anion Gap mmol/L BUN (7-17) mg/dL Creatinine (0.52-1.04) mg/dL Est GFR (CKD-EPI)AfAm (>60 ml/min/1.73 sqM) Est GFR (CKD-EPI)NonAf (>60 ml/min/1.73 sqM) Glucose (74-99) mg/dL Calcium (8.4-10.2) mg/dL Magnesium (1.6-2.3) mg/dL Total Bilirubin (0.2-1.3) mg/dL AST (14-36) U/L ALT (4-34) U/L Alkaline Phosphatase (38-126) U/L Troponin I <0.012 (0.000-0.034) ng/mL NT-Pro-B Natriuret Pep 1680 pg/mL Total Protein (6.3-8.2) g/dL Albumin (3.5-5.0) g/dL Disposition Is patient prescribed a controlled substance at d/c from ED?: No Time of Disposition: 07:55 <Cristopher Garrido - Last Filed: 10/01/19 07:53> <Wyatt Acosta - Last Filed: 10/01/19 08:03> Clinical Impression: Chest pain, Dementia, Elevated brain natriuretic peptide (BNP) level Disposition: ADMITTED IP TO THIS HOSP Condition: Fair Referrals: None,Stated [REFERRING] - 1-2 days
[2019-10-01 06:47] LABS: Basophils # (A) 0.1 k/uL (0-0.2); Basophils % (A) 1 %; Eosinophils # (A) 0.3 k/uL (0-0.7); Eosinophils % (A) 5 %; HCT 34.4 % (34.0-46.0); HGB 10.9 gm/dL (11.4-16.0); Lymphocytes # (A) 1.9 k/uL (1.0-4.8); Lymphocytes % (A) 33 %; MCHC 31.7 g/dL (31.0-37.0); MCV 97.7 fL (80.0-100.0); Mean Platelet Volume 8.4; Monocytes # (A) 0.3 k/uL (0-1.0); Monocytes % (A) 5 %; Neutrophils # (A) 3.1 k/uL (1.3-7.7); Neutrophils % (A) 54 %; Platelet Count 192 k/uL (150-450); RBC 3.53 m/uL (3.80-5.40); RDW 13.7 % (11.5-15.5); WBC 5.7 k/uL (3.8-10.6)
[2019-10-01 06:55] LABS: Prothrombin Time 10.6 sec (9.0-12.0)
--- NOTE | 2019-10-01 06:56 | XR ---
EXAMINATION TYPE: XR chest 2V DATE OF EXAM: 10/01/2019 COMPARISON: 07/05/2019 HISTORY: Chest pain TECHNIQUE: 2 views FINDINGS: There is no heart failure nor confluent pneumonic infiltrate. Thoracic aorta is atheromatou s. There is no pleural effusion. There are chest leads. There is osteopenia. IMPRESSION: No active cardiopulmonary disease. Tortuous atheromatous thoracic aorta. No change compar ed to old exam.
--- NOTE | 2019-10-01 06:57 | XR ---
EXAMINATION TYPE: XR hand complete LT DATE OF EXAM: 10/01/2019 COMPARISON: NONE HISTORY: Pain and swelling TECHNIQUE: 3 views FINDINGS: There is some osteopenia. There is some narrowing of the first carpometacarpal joint space. The fingers appear intact. There are no erosions. There is no subluxation. There is soft tissue swel ling on the dorsum of the hand. IMPRESSION: No acute bony abnormality of the left hand. No specific sign of inflammatory arthritis. N o fracture. Moderate soft tissue swelling.
[2019-10-01 07:02] LABS: Albumin 3.4 g/dL (3.5-5.0); Calcium 10.1 mg/dL (8.4-10.2); Magnesium 2.1 mg/dL (1.6-2.3); Potassium 3.5 mmol/L (3.5-5.1); Total Bilirubin 1.6 mg/dL (0.2-1.3); Total Protein 6.4 g/dL (6.3-8.2)
[2019-10-01 07:28] LABS: Partial Thromboplastin Time 21.4 sec (22.0-30.0)
[2019-10-01] MEDS ORDERED: ASPIRIN 325 MG TAB PO STA (07:55)
[2019-10-01] MEDS ORDERED: METOPROLOL SUCCINATE (ER) 50 MG TAB.ER.24H PO STA (08:21)
[2019-10-01] MEDS ORDERED: ASPIRIN 81 MG PO SCH (10:30)
--- NOTE | 2019-10-01 10:50 | P.CRDCN ---
History of Present Illness Consult date: 10/01/19 History of present illness: CHIEF COMPLAINT: Chest pain HISTORY OF PRESENT ILLNESS: 73-year-old female who presented to emergency room with chief complaint of chest pain. Patient has a history of dementia and majority of the HPI was obtained from the patient's daughter who is at the bedside. Daughter states that yesterday the patient took off walking down the street and was found by EMS and brought to the hospital. She was then discharged home. She began having chest pain at home and the family brought her back to the hospital for further evaluation. The patient does not follow up outpatient with a epidemiology intern. The patient was examined this morning at the bedside. She reports having an episode of chest pain yesterday but is unable to give any further details or description regarding her chest pain. She currently denies chest pain. Denies shortness of breath. Denies palpitations. The patient was hospitalized in 2019 and had an echocardiogram completed at that time revealing ejection fraction greater than 55%, mild mitral regurgitation, and mild tricuspid regurgitation. DIAGNOSTICS: EKG reveals sinus rhythm Chest xray no active cardiopulmonary disease Laboratory data: WBC 5.7. Hemoglobin 10.9. Platelet count 192. Sodium 141. Potassium 3.5. BUN 8. Creatinine 0.82. Troponin negative 1. BNP 1680. Current home cardiac medications include aspirin 81 mg daily and metoprolol 25 mg twice a day REVIEW OF SYSTEMS: CONSTITUTIONAL: Denies fever or chills. HEENT: Denies blurred vision, vision changes, or eye pain. Denies hemoptysis CARDIOVASCULAR: Denies chest pain, orthopnea, PND or palpitations RESPIRATORY: No shortness of breath. GASTROINTESTINAL: Denies abdominal pain. Denies nausea or vomiting. HEMATOLOGIC: Denies bleeding disorders. GENITOURINARY: Denies any blood in urine. SKIN: Denies pruitis. Denies rash. PHYSICAL EXAM: VITAL SIGNS: Reviewed. GENERAL: Well-developed in no acute distress. HEENT: Head is normocephalic. Pupils are equal, round. Sclerae anicteric. Mucous membranes of the mouth are moist. Neck supple. No JVD or thyromegaly LUNGS: Respirations even and unlabored. Lungs essentially clear to auscultation bilaterally. HEART: Regular rate and rhythm. S1 and S2 heard. ABDOMEN: Soft. Nontender. Nontender. EXTREMITIES: Normal range of motion. No clubbing or cyanosis. Peripheral pulses intact. No lower extremity edema NEUROLOGIC: Awake and alert. ASSESSMENT: 1. Chest pain, no evidence of acute coronary syndrome 2. History of hypertension 3. History of hyperlipidemia 4. Dementia PLAN: -Continue current cardiac medications including aspirin and metoprolol -Obtain an additional troponin level -Obtain 2-D echo to assess cardiac structure and function Nurse practitioner note has been reviewed by physician. Signing provider agrees with the documented findings, assessment, and plan of care. Past Medical History Past Medical History: Asthma, COPD, Dementia, Hyperlipidemia, Hypertension Additional Past Medical History / Comment(s): short term memory loss History of Any Multi-Drug Resistant Organisms: None Reported Past Surgical History: Back Surgery, Orthopedic Surgery Additional Past Surgical History / Comment(s): abdominal , shoulder Past Anesthesia/Blood Transfusion Reactions: No Reported Reaction Past Psychological History: Anxiety Smoking Status: Never smoker Past Alcohol Use History: None Reported Past Drug Use History: None Reported - Past Family History Mother Family Medical History: Hypertension Father Family Medical History: Coronary Artery Disease (CAD), Myocardial Infarction ([place]) Additional Family Medical History / Comment(s): Father of a [place] in his 70s. Medications and Allergies Home Medications Medication Instructions Recorded Confirmed Type Ferrous Sulfate [Iron (65 MG 325 mg PO BID 04/27/18 10/01/19 History Elemental)] Megestrol Acetate 20 mg PO TID 04/27/18 10/01/19 History Aspirin EC [Ecotrin Low Dose] 81 mg PO DAILY 07/05/19 10/01/19 History HYDROcodone/APAP 5-325MG [[place] 1 tab PO Q6HR PRN 07/05/19 10/01/19 History 5-325] Potassium Chloride 10 meq PO DAILY 07/05/19 10/01/19 History Metoprolol Tartrate [Lopressor] 25 mg PO BID 10/01/19 10/01/19 History Montelukast Sodium [Singulair] 10 mg PO DAILY 10/01/19 10/01/19 History Allergies Allergy/AdvReac Type Severity Reaction Status Date / Time levofloxacin Allergy Swelling Verified 10/01/19 09:21 Physical Exam Vitals: Vital Signs Temp Pulse Resp BP Pulse Ox 10/01/19 08:07 98.7 F 66 18 168/103 100 10/01/19 06:10 98.9 F 65 16 152/99 97 Intake and Output 09/30/19 10/01/19 10/01/19 22:59 06:59 14:59 Other: Weight 68.039 kg Results 10/01/19 06:33 10/01/19 06:33 Cardiac Enzymes 10/01/19 10/01/19 Range/Units 06:33 06:33 AST 22 (14-36) U/L Troponin I <0.012 (0.000-0.034) ng/mL Coagulation 10/01/19 Range/Units 06:33 PT 10.6 (9.0-12.0) sec APTT 21.4 L (22.0-30.0) sec CBC 10/01/19 Range/Units 06:33 WBC 5.7 (3.8-10.6) k/uL RBC 3.53 L (3.80-5.40) m/uL Hgb 10.9 L (11.4-16.0) gm/dL Hct 34.4 (34.0-46.0) % Plt Count 192 (150-450) k/uL Comprehensive Metabolic Panel 10/01/19 Range/Units 06:33 Sodium 141 (137-145) mmol/L Potassium 3.5 (3.5-5.1) mmol/L Chloride 109 H (98-107) mmol/L Carbon Dioxide 25 (22-30) mmol/L BUN 8 (7-17) mg/dL Creatinine 0.82 (0.52-1.04) mg/dL Glucose 78 (74-99) mg/dL Calcium 10.1 (8.4-10.2) mg/dL AST 22 (14-36) U/L ALT 8 (4-34) U/L Alkaline Phosphatase 63 (38-126) U/L Total Protein 6.4 (6.3-8.2) g/dL Albumin 3.4 L (3.5-5.0) g/dL Current Medications Generic Name Dose Route Start Last Admin Trade Name Freq PRN Reason Stop Dose Admin Aspirin 325 mg 10/02/19 09:00 Aspirin PO DAILY MACI Intake and Output 09/30/19 10/01/19 10/01/19 22:59 06:59 14:59 Other: Weight 68.039 kg 10/01/19 06:33 10/01/19 06:33
[2019-10-01] MEDS: MEGESTROL 40 MG TAB PO SCH ×3 (12:29→22:10)
[2019-10-01] MEDS: MONTELUKAST 10 MG TAB PO SCH (12:30)
[2019-10-01] MEDS: POTASSIUM CHLORIDE ER 10 MEQ TAB.ER.PRT PO SCH (12:30)
--- NOTE | 2019-10-01 12:44 | ECHOF ---
Referral Reason:lv function MEASUREMENTS -------- HEIGHT: 165.1 cm WEIGHT: 68.0 kg BP: 168/103 IVSd: 1.1 cm (0.6 - 1.1) LVIDd: 3.9 cm (3.9 - 5.3) LVPWd: 1.4 cm (0.6 - 1.1) IVSs: 1.6 cm LVIDs: 1.7 cm LVPWs: 1.7 cm LAESV Index (A-L): 22.82 ml/m Ao Diam: 3.1 cm (2.0 - 3.7) AV Cusp: 1.8 cm (1.5 - 2.6) LA Diam: 3.1 cm (2.7 - 3.8) MV EXCURSION: 15.618 mm (> 18.000) MV EF SLOPE: 79 mm/s (70 - 150) EPSS: 0.6 cm MV E Jonathan: 0.75 m/s MV DecT: 311 ms MV A Jonathan: 0.82 m/s MV E/A Ratio: 0.92 AR PHT: 786 ms RAP: 5.00 mmHg RVSP: 39.84 mmHg FINDINGS -------- This was a technically adequate study. The left ventricular size is normal. There is mild concentric left ventricular hypertrophy. Overa ll left ventricular systolic function is normal with, an EF between 55 - 60 %. Normal LAP Grade 1 D iastolic Dysfunction. The right ventricle is normal in size. Normal LA size by volume 22+/-6 ml/m2. The right atrial size is normal. Interatrial and interventricular septum intact. There is mild aortic valve sclerosis. Trace amount of aortic regurgitation. The mitral valve leaflets are mildly thickened. Mild mitral regurgitation is present. The tricuspid valve appears structurally normal. Moderate tricuspid regurgitation present. There is mild pulmonary hypertension. The right ventricular systolic pressure, as measured by Doppler, is 39.84mmHg. There is no pulmonic regurgitation present. The aortic root size is normal. Normal inferior vena cava with normal inspiratory collapse consistent with estimated right atrial pre ssure of 5 mmHg. Echo free space indicative of a pericardial fat pad. CONCLUSIONS -------- 1. There is mild concentric left ventricular hypertrophy. 2. Overall left ventricular systolic function is normal with, an EF between 55 - 60 %. 3. Normal LAP Grade 1 Diastolic Dysfunction. 4. Normal LA size by volume 22+/-6 ml/m2. 5. There is mild aortic valve sclerosis. 6. Trace amount of aortic regurgitation. 7. Mild mitral regurgitation is present. 8. Moderate tricuspid regurgitation present. 9. There is mild pulmonary hypertension. 10. Echo free space indicative of a pericardial fat pad. CHIEF INNOVATION OFFICER: Madison Dias RDCS
[2019-10-01 15:26] VITALS: BMI 25.0
[2019-10-01] MEDS: HYDROcodone/APAP 5-325MG 1 EACH TAB PO PRN (16:07)
--- NOTE | 2019-10-01 16:14 | XR ---
EXAMINATION TYPE: XR Hip Complete RT DATE OF EXAM: 10/01/2019 COMPARISON: None HISTORY: Pain TECHNIQUE: 2 view right hip FINDINGS: Mild narrowing of the joint space may be present. Femoral head articulates with the acetabu lum. No acute fracture or dislocation is evident. IMPRESSION: 1. Mild degenerative change right hip joint space
[2019-10-01] MEDS: METOPROLOL TARTRATE 25 MG TAB PO SCH (20:55)
[2019-10-01] MEDS: FERROUS SULFATE 325 MG TAB PO SCH (20:56)
--- NOTE | 2019-10-01 22:32 | P.HPIM ---
History of Present Illness H&P Date: 10/01/19 Chief Complaint: Chest pain History of presenting complaint: This is a pleasant 73-year-old patient of Dr. Snider. Chronic stable medical conditions include COPD, dementia, hypertension, hyperlipidemia. Patient lives with her daughter and uses a cane. Recently in the hospital felt to be a first episode of seizure. As per the ER notes patient's niece had called EMS because patient had been complaining of chest pain for about 30 minutes from 4:00 in the morning. Patient does not remember anything else. When I saw this morning she did not reflect the chest pain. According to the daughter the bedside patient not been eating well but patient says she has a good appetite. Patient was witnessed with a walker to walk a few steps. Denies any of these dizziness or lightheadedness. No fever no chills. No cough. Patient not acutely able to give any details about the chest pain. Patient also fell down a day or 2 ago. injury to the right hip. Patient able to weight-bear. Review of systems: GEN.: Tired EYES: None HEENT: None NECK: None RESPIRATORY: None CARDIOVASCULAR: As above GASTROINTESTINAL: None GENITOURINARY: None MUSCULOSKELETAL: Some joint pains LYMPHATICS: None HEMATOLOGICAL: None PSYCHIATRY: Forgetful] NEUROLOGICAL: As above Past medical history to include: Asthma, dementia, hypertension, hyperlipidemia osteoarthritis, some anxiety Social history: No history of smoking or alcohol. Lives with her daughter. Uses a cane. Physical examination: VITAL SIGNS: 98.9, 65, 16, 152/99, 97% room air GENERAL: [BMI 25, sitting up in bed, awake EYES: Pupils equal. Conjunctiva normal. HEENT: External appearance of nose and ears normal, oral cavity grossly normal. NECK: JVD not raised; masses not palpable. HEART: First and second heart sounds are normal; no edema. LUNGS: Respiratory rate normal; clear to auscultation. ABDOMEN: Soft, nontender, liver spleen not palpable, no masses palpable. PSYCH: Patient able to answer some simple questions. MUSCULOSKELETAL: Evidence of OA - hands. NEUROLOGICAL: Cranial nerves grossly intact; no facial asymmetry, power and sensation grossly intact. Patient was witnessed walking with a walker. LYMPHATICS: No lymph nodes palpable in the axilla and neck INVESTIGATIONS, reviewed in the clinical context: White count 5.70 globin 10.9 platelets 192 potassium 3.5 creatinine 0.82 Troponin I 3 negative COVID 19 PCR-negative EKG tracing personally reviewed by me-nonspecific T-wave changes Chest x-ray film personally reviewed by me-some unfolding of the outer, nonspecific findings. 2-D echocardiogram-EF 55-60%, moderate tricuspid regurgitation Assessment: -Patient has had some chest pain. Unable to define more than that. No pain when I saw the patient this morning. Hemodynamically stable. Pulses good in both the arms. Patient feels and looks well. No shortness breath. No leg swelling. PE probability very low. 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 Orthopedics consulted. Cardiology consulted. 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 Home medications resumed. Care was discussed with the daughter. Past Medical History Past Medical History: Asthma, COPD, Dementia, Hyperlipidemia, Hypertension, Memory Impairment, Renal Disease, Seizure Disorder, Vascular Disorder Additional Past Medical History / Comment(s): Short term memory loss, aortic aneurysm, irregular heart beat in the past-pt/jeison cannot recall type, seizure once- 06/2019, UTI/cystitis, nephrolithiasis, recently told she may have "kidney function" problem, falls, L hand currently swollen-pt/jeison do not know cause. History of Any Multi-Drug Resistant Organisms: None Reported Past Surgical History: Back Surgery, Hysterectomy, Orthopedic Surgery, Tonsillectomy, Tubal Ligation Additional Past Surgical History / Comment(s): D&C, EGD, colonoscopy, L hip hemiarthroplasty d/t fracure, R shoulder surgery d/t fracture-has hardware Past Anesthesia/Blood Transfusion Reactions: No Reported Reaction, Motion Sickness Past Psychological History: Anxiety Additional Psychological History / Comment(s): Pt resides with her jeison, Analisa. She uses a cane or walker to ambulate. Her jeison is her caregiver, she assists pt with bathing/dressin and manages her medications and also drives her to [employer]. Smoking Status: Never smoker Past Alcohol Use History: None Reported Past Drug Use History: None Reported - Past Family History Mother Family Medical History: Hypertension Father Family Medical History: Coronary Artery Disease (CAD), Myocardial Infarction ([place]) Additional Family Medical History / Comment(s): Father of a [place] in his 70s. Medications and Allergies Home Medications Medication Instructions Recorded Confirmed Type Ferrous Sulfate [Iron (65 MG 325 mg PO BID 04/27/18 10/01/19 History Elemental)] Megestrol Acetate 20 mg PO TID 04/27/18 10/01/19 History Aspirin EC [Ecotrin Low Dose] 81 mg PO DAILY 07/05/19 10/01/19 History HYDROcodone/APAP 5-325MG [[place] 1 tab PO Q6HR PRN 07/05/19 10/01/19 History 5-325] Potassium Chloride 10 meq PO DAILY 07/05/19 10/01/19 History Metoprolol Tartrate [Lopressor] 25 mg PO BID 10/01/19 10/01/19 History Montelukast Sodium [Singulair] 10 mg PO DAILY 10/01/19 10/01/19 History Allergies Allergy/AdvReac Type Severity Reaction Status Date / Time levofloxacin Allergy Swelling Verified 10/01/19 09:21 Physical Exam Vitals: Vital Signs Temp Pulse Pulse Resp BP BP Pulse Ox 10/01/19 09:48 98.8 F 65 24 152/74 98 10/01/19 08:07 98.7 F 66 18 168/103 100 10/01/19 06:10 98.9 F 65 16 152/99 97 Intake and Output 09/30/19 10/01/19 10/01/19 22:59 06:59 14:59 Other: # Voids 0 Weight 68.039 kg Results CBC & Chem 7: 10/01/19 06:33 10/01/19 06:33 Labs: Abnormal Lab Results - Last 24 Hours (Table) 10/01/19 10/01/19 10/01/19 Range/Units 06:33 06:33 06:33 RBC 3.53 L (3.80-5.40) m/uL Hgb 10.9 L (11.4-16.0) gm/dL APTT 21.4 L (22.0-30.0) sec Chloride 109 H (98-107) mmol/L Total Bilirubin 1.6 H (0.2-1.3) mg/dL Albumin 3.4 L (3.5-5.0) g/dL
[2019-10-02 02:57] LABS: Cholesterol 171 mg/dL (<200); HDL Cholesterol 47 mg/dL (40-60); LDL Cholesterol,Calculated 112 mg/dL (0-99); Triglycerides 62 mg/dL (<150)
[2019-10-02] MEDS: HYDROcodone/APAP 5-325MG 1 EACH TAB PO PRN ×2 (05:58→22:54)
[2019-10-02] MEDS ORDERED: ASPIRIN 325 MG TAB PO SCH (09:00)
[2019-10-02] MEDS: MEGESTROL 40 MG TAB PO SCH ×3 (09:39→20:55)
[2019-10-02] MEDS: METOPROLOL TARTRATE 25 MG TAB PO SCH ×2 (09:39→20:55)
[2019-10-02] MEDS: POTASSIUM CHLORIDE ER 10 MEQ TAB.ER.PRT PO SCH (09:39)
[2019-10-02] MEDS: ASPIRIN 81 MG PO SCH (09:39)
[2019-10-02] MEDS: FERROUS SULFATE 325 MG TAB PO SCH (09:40)
[2019-10-02] MEDS: MONTELUKAST 10 MG TAB PO SCH (09:40)
--- NOTE | 2019-10-02 12:18 | P.PN ---
Subjective Progress Note Date: 10/02/19 CHIEF COMPLAINT: Chest pain HISTORY OF PRESENT ILLNESS: Patient seen and examined this morning at bedside. Patient denies chest pain or pressure. Denies shortness of breath. Echocardiogram reveals ejection fraction between 55 and 60%, mild mitral regurgitation, moderate tricuspid regurgitation, and mild pulmonary hypertension. vital signs are stable. Heart rate in the 60s. PHYSICAL EXAM: VITAL SIGNS: Reviewed. GENERAL: Well-developed in no acute distress. HEENT: Head is normocephalic. Pupils are equal, round. Sclerae anicteric. Mucous membranes of the mouth are moist. Neck supple. No JVD or thyromegaly LUNGS: Respirations even and unlabored. Lungs essentially clear to auscultation bilaterally. HEART: Regular rate and rhythm. S1 and S2 heard. ABDOMEN: Soft. Nontender. Nontender. EXTREMITIES: Normal range of motion. No clubbing or cyanosis. Peripheral pulses intact. No lower extremity edema NEUROLOGIC: Awake and alert. ASSESSMENT: 1. Chest pain, no evidence of acute coronary syndrome 2. History of hypertension 3. History of hyperlipidemia 4. Dementia PLAN: -Continue current cardiac medications including aspirin and metoprolol -No further cardiac workup recommended. Stable for discharge from a cardiac standpoint. Nurse practitioner note has been reviewed by physician. Signing provider agrees with the documented findings, assessment, and plan of care. Objective - Vital Signs Vital signs: Vital Signs Temp 98.4 F 10/02/19 08:00 Pulse 60 10/02/19 08:00 Resp 17 10/02/19 08:00 BP 127/73 10/02/19 08:00 Pulse Ox 96 10/02/19 08:00 Intake & Output 10/01/19 10/02/19 10/02/19 18:59 06:59 18:59 Intake Total 220 10 Balance 220 10 Weight 68.039 kg 53.3 kg Intake: IV 10 .9 10 Oral 220 Other: Voiding Method Toilet Toilet # Voids 1 1 1 # Bowel Movements 0 1 1 - Labs CBC & Chem 7: 10/01/19 06:33 10/01/19 06:33 Labs: Abnormal Lab Results - Last 24 Hours (Table) 10/01/19 Range/Units 06:33 LDL Cholesterol, Calc 112 H (0-99) mg/dL
--- NOTE | 2019-10-02 13:38 | P.CNOR ---
History of Present Illness - HPI Consult date: 10/02/19 History of present illness: This is a 73 year-old female who is admitted for evaluation of chest pain. Orthopedics is consulted due to complaints of right hip pain. Patient has a history of dementia and is a poor historian. No family is present at bedside. Patient complains of pain in the right knee today. Patient denies any pain in the right hip today. Per H&P, patient may have had a fall 2 days ago. Patient denies any fever/chills, numbness, weakness or tingling. Review of Systems See HPI. Past Medical History Past Medical History: Asthma, COPD, Dementia, Hyperlipidemia, Hypertension, Memory Impairment, Renal Disease, Seizure Disorder, Vascular Disorder Additional Past Medical History / Comment(s): Short term memory loss, aortic ane urysm, irregular heart beat in the past-pt/jeison cannot recall type, seizure once- 06/2019, UTI/cystitis, nephrolithiasis, recently told she may have "kidney function" problem, falls, L hand currently swollen-pt/jeison do not know cause. History of Any Multi-Drug Resistant Organisms: None Reported Past Surgical History: Back Surgery, Hysterectomy, Orthopedic Surgery, Tonsillectomy, Tubal Ligation Additional Past Surgical History / Comment(s): D&C, EGD, colonoscopy, L hip hemiarthroplasty d/t fracure, R shoulder surgery d/t fracture-has hardware Past Anesthesia/Blood Transfusion Reactions: No Reported Reaction, Motion Sickness Past Psychological History: Anxiety Additional Psychological History / Comment(s): Pt resides with her jeison, Analisa. She uses a cane or walker to ambulate. Her jeison is her caregiver, she assists pt with bathing/dressin and manages her medications and also drives her to [employer]. Smoking Status: Never smoker Past Alcohol Use History: None Reported Past Drug Use History: None Reported - Past Family History Mother Family Medical History: Hypertension Father Family Medical History: Coronary Artery Disease (CAD), Myocardial Infarction ([place]) Additional Family Medical History / Comment(s): Father of a [place] in his 70s. Medications and Allergies Home Medications Medication Instructions Recorded Confirmed Type Ferrous Sulfate [Iron (65 MG 325 mg PO BID 04/27/18 10/01/19 History Elemental)] Megestrol Acetate 20 mg PO TID 04/27/18 10/01/19 History Aspirin EC [Ecotrin Low Dose] 81 mg PO DAILY 07/05/19 10/01/19 History HYDROcodone/APAP 5-325MG [[place] 1 tab PO Q6HR PRN 07/05/19 10/01/19 History 5-325] Potassium Chloride 10 meq PO DAILY 07/05/19 10/01/19 History Metoprolol Tartrate [Lopressor] 25 mg PO BID 10/01/19 10/01/19 History Montelukast Sodium [Singulair] 10 mg PO DAILY 10/01/19 10/01/19 History Allergies Allergy/AdvReac Type Severity Reaction Status Date / Time levofloxacin Allergy Swelling Verified 10/01/19 09:21 Physical Examination On exam patient is able to actively flex the right lower extremity. There is pain with knee flexion. There is no effusion, erythema or ecchymosis. Calf is soft and nontender to palpation. Sensation intact. Neurovascular status and circulatory status are intact. Results X-rays of the right hip are negative for any fracture or dislocation. - Labs Labs: Abnormal Lab Results - Last 24 Hours (Table) 10/01/19 Range/Units 06:33 LDL Cholesterol, Calc 112 H (0-99) mg/dL H & H 10/01/19 Range/Units 06:33 Hgb 10.9 L (11.4-16.0) gm/dL Hct 34.4 (34.0-46.0) % Coagulation 10/01/19 Range/Units 06:33 INR 1.0 (<1.2) Result Diagrams: 10/01/19 06:33 10/01/19 06:33 Assessment and Plan (1) Right knee pain Current Visit: Yes Status: Acute Code(s): M25.561 - PAIN IN RIGHT KNEE SNOMED Code(s): 30465353 Plan: 1. X-rays of the right knee are pending. 2. X-rays of the right hip are reviewed and are negative for any fracture or dislocation. 3. No surgical intervention planned. Patient may benefit from physical therapy if knee x-rays are negative for any acute process. Further recommendations pending x-ray results.
--- NOTE | 2019-10-02 14:10 | XR ---
EXAMINATION TYPE: XR knee complete RT DATE OF EXAM: 10/02/2019 CLINICAL HISTORY: pain TECHNIQUE: Three views of the right knee are obtained. COMPARISON: None. FINDINGS: There is no acute fracture/dislocation. The tri-compartment joint spaces appear mildly na rrowed. The overlying soft tissue appears unremarkable. IMPRESSION: There is no acute fracture or dislocation.ICD 10 NO FRACTURE, INITIAL EVALUATION
[2019-10-02] MEDS: ENOXAPARIN 40 MG/0.4 ML SYRINGE SQ SCH (14:54)
[2019-10-02 16:44] LABS: % Iron Saturation 16.6 (12.00-45.00)
[2019-10-02 16:53] LABS: Ferritin 104.1 ng/mL (10.0-291.0)
--- NOTE | 2019-10-02 17:36 | P.PN ---
Progress Note - Text Progress Note Date: 10/02/19 Chief Complaint: Chest pain History of presenting complaint: This is a pleasant 73-year-old patient of Dr. Snider. Chronic stable medical conditions include COPD, dementia, hypertension, hyperlipidemia. Patient lives with her daughter and uses a cane. Recently in the hospital felt to be a first episode of seizure. As per the ER notes patient's niece had called EMS because patient had been complaining of chest pain for about 30 minutes from 4:00 in the morning. Patient does not remember anything else. When I saw this morning she did not reflect the chest pain. According to the daughter the bedside patient not been eating well but patient says she has a good appetite. Patient was witnessed with a walker to walk a few steps. Denies any of these dizziness or lightheadedness. No fever no chills. No cough. Patient not acutely able to give any details about the chest pain. Patient also fell down a day or 2 ago. injury to the right hip. Patient able to weight-bear. Patient is seen by cardiac surgery. No further intervention. Patient to leonardo koenig on aspirin and beta gabriel. X-ray of the right hip-negative for fracture. Conservative management per orthopedics. Today-sitting up. Right hip pain much better. Appetite is okay. 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 Review of systems: Was done for constitutional, cardiovascular, GI, pulmonary. relevant finding as above Active Medications Hydrocodone Bitart/Acetaminophen ([place] 5-325) 1 each PO Q6HR PRN PRN Reason: Pain Last Admin: 10/02/19 05:58 Dose: 1 each Documented by: Aspirin (Aspirin) 81 mg PO DAILY [facility] Last Admin: 10/02/19 09:39 Dose: 81 mg Documented by: Enoxaparin Sodium (Lovenox) 40 mg SQ DAILY [facility] Last Admin: 10/02/19 14:54 Dose: 40 mg Documented by: Megestrol Acetate (Megace) 20 mg PO TID [facility] Last Admin: 10/02/19 17:32 Dose: 20 mg Documented by: Metoprolol Tartrate (Lopressor) 25 mg PO BID [facility] Last Admin: 10/02/19 09:39 Dose: 25 mg Documented by: Montelukast Sodium (Singulair) 10 mg PO DAILY [facility] Last Admin: 10/02/19 09:40 Dose: 10 mg Documented by: Potassium Chloride (K-Dur 10) 10 meq PO DAILY [facility] Last Admin: 10/02/19 09:39 Dose: 10 meq Documented by: Physical examination: VITAL SIGNS: 98.5, 59, 17, 134/81, 97% room air GENERAL: [Sitting upon a chair, comfortable EYES: Pupils equal. Conjunctiva normal. HEENT: External appearance of nose and ears normal, oral cavity grossly normal. NECK: JVD not raised; masses not palpable. HEART: First and second heart sounds are normal; no edema. LUNGS: Respiratory rate normal; clear to auscultation. ABDOMEN: Soft, nontender, liver spleen not palpable, no masses palpable. PSYCH: Patient able to answer some simple questions. MUSCULOSKELETAL: Evidence of OA - hands. INVESTIGATIONS, reviewed in the clinical context: X-ray of the right knee-no fracture. X-ray of the right hip-mild DJD. No fracture -42 TIBC 253 ferritin 104 Previous testing White count 5.70 globin 10.9 platelets 192 potassium 3.5 creatinine 0.82 Troponin I 3 negative COVID 19 PCR-negative EKG tracing personally reviewed by me-nonspecific T-wave changes Chest x-ray film personally reviewed by me-some unfolding of the outer, nonspecific findings. 2-D echocardiogram-EF 55-60%, moderate tricuspid regurgitation Assessment: -Chest pain possibly angina. Stable on beta gabriel. -Blunt injury to the right tip secondary to fall. No fracture. 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 Continue current medication plan. We will give 2 doses of IV iron.
[2019-10-02] MEDS: SODIUM FERRIC GLUCONAT-SUCROSE 125 MG in SODIUM CHLORIDE 0.9% 100 ML IVPB SCH (20:55)
--- NOTE | 2019-10-03 08:15 | P.PN ---
Subjective Progress Note Date: 10/03/19 This is a 73-year-old female who is admitted for evaluation of chest pain. Orthopedics has followed the patient due to right hip pain. Patient denies any pain in the right hip or knee today. Patient states that she has been able to ambulate to the bathroom and back. Patient denies any new complaints today. Patient denies any fever/chills, numbness, weakness, tingling, abdominal pain, shortness of breath or chest pain. Objective - Vital Signs Vital signs: Vital Signs Temp 98.6 F 10/03/19 03:24 Pulse 61 10/03/19 03:24 Resp 16 10/03/19 03:24 BP 145/86 10/03/19 03:24 Pulse Ox 98 10/03/19 03:24 Intake & Output 10/02/19 10/03/19 10/03/19 18:59 06:59 18:59 Intake Total 490 240 Balance 490 240 Weight 56 kg Intake: IV 10 .9 10 Oral 480 240 Other: Voiding Method Toilet # Voids 3 1 # Bowel Movements 1 - Exam Vital signs are stable. Patient is in no acute distress and is alert and oriented 3. Patient has good active range of motion of the right lower extremity without pain or difficulty. There is no tenderness to palpation. Calf is soft and nontender to palpation. Patient has full foot and ankle motion without pain or difficulty. Neurovascular status and circulatory status are intact. - Labs CBC & Chem 7: 10/01/19 06:33 10/01/19 06:33 Labs: Abnormal Lab Results - Last 24 Hours (Table) 10/01/19 Range/Units 06:33 Iron 42 L (50-170) ug/dL Assessment and Plan (1) Right knee pain Current Visit: Yes Status: Acute Code(s): M25.561 - PAIN IN RIGHT KNEE SNOMED Code(s): 84561407 Plan: 1. X-rays of the right knee and right hip are reviewed are negative for any fracture or dislocation. 2. No surgical intervention planned. Recommend physical therapy for mobilization. Patient may follow-up in the office as an outpatient as needed.
[2019-10-03] MEDS: SODIUM FERRIC GLUCONAT-SUCROSE 125 MG in SODIUM CHLORIDE 0.9% 100 ML IVPB SCH (09:08)
[2019-10-03] MEDS: POTASSIUM CHLORIDE ER 10 MEQ TAB.ER.PRT PO SCH (09:16)
[2019-10-03] MEDS: MONTELUKAST 10 MG TAB PO SCH (09:16)
[2019-10-03] MEDS: ASPIRIN 81 MG PO SCH (09:16)
[2019-10-03] MEDS: METOPROLOL TARTRATE 25 MG TAB PO SCH (09:16)
[2019-10-03] MEDS: MEGESTROL 40 MG TAB PO SCH (09:17)
[2019-10-03] MEDS: ENOXAPARIN 40 MG/0.4 ML SYRINGE SQ SCH (09:17)
[2019-10-03 11:34] VITALS: RESP 17
[2019-10-03 16:01] VITALS: PULSE 77
[2019-10-03 16:02] VITALS: BP 149/76; TEMP 98.1
--- NOTE | 2019-10-03 19:34 | P.DS ---
Providers Date of admission: 10/01/19 08:07 Expected date of discharge: 10/03/19 Attending physician: Beni Rose Consults: 10/01/19 13:45 Consult Physician Routine Consulting Provider: Venkat Nolasco Consult Reason/Comments: right hip pain Do you want consulting provider notified?: Yes, Notify in am Primary care physician: [facility] Course: Chief Complaint: Chest pain History of presenting complaint: This is a pleasant 73-year-old patient of Dr. Snider. Chronic stable medical conditions include COPD, dementia, hypertension, hyperlipidemia. Patient lives with her daughter and uses a cane. Recently in the hospital felt to be a first episode of seizure. As per the ER notes patient's niece had called EMS because patient had been complaining of chest pain for about 30 minutes from 4:00 in the morning. Patient does not remember anything else. When I saw this morning she did not reflect the chest pain. Denies any of these dizziness or lightheadedness. No fever no chills. No cough. Patient not acutely able to give any details about the chest pain. Patient also fell down a day or 2 ago. injury to the right hip. Patient able to weight-bear. Patient is seen by cardiac surgery. No further intervention. Patient to continue on aspirin and beta gabriel. X-ray of the right hip-negative for fracture. Conservative management per orthopedics. [facility] Conservative management. Patient is refusing a walker to get about. Seen by social work and an correctional case manager. They discussed with the family about discharge planning. Patient given IV iron for iron deficiency anemia. Patient and today she take diet to supplement like ensure. Today discussed with correctional case manager. Discussion and discharge planning more than 35 minutes Consultation: Dr. Smart from cardiology Dr. Venkat Nolasco from orthopedics Physical examination: VITAL SIGNS: 98.1, 77, 17, 149/76, 96% room air GENERAL: [Sitting upon a chair, comfortable EYES: Pupils equal. Conjunctiva normal. HEENT: External appearance of nose and ears normal, oral cavity grossly normal. NECK: JVD not raised; masses not palpable. HEART: First and second heart sounds are normal; no edema. LUNGS: Respiratory rate normal; clear to auscultation. ABDOMEN: Soft, nontender, liver spleen not palpable, no masses palpable. PSYCH: Patient able to answer some simple questions. MUSCULOSKELETAL: Evidence of OA - hands. INVESTIGATIONS, reviewed in the clinical context: X-ray of the right knee-no fracture. X-ray of the right hip-mild DJD. No fracture -42 TIBC 253 ferritin 104 Previous testing White count 5.70 globin 10.9 platelets 192 potassium 3.5 creatinine 0.82 Troponin I 3 negative COVID 19 PCR-negative EKG tracing personally reviewed by me-nonspecific T-wave changes Chest x-ray film personally reviewed by me-some unfolding of the outer, nonspecific findings. 2-D echocardiogram-EF 55-60%, moderate tricuspid regurgitation Assessment: -Chest pain possibly angina. Stable on beta gabriel. -Blunt injury to the right hip secondary to fall. No fracture. -Severe cognitive impairment likely from late onset Alzheimer's dementia -Ascending aortic aneurysm 4.3 cm -Mild persistent asthma and a nonsmoker -Essential hypertension -Primary osteoarthritis -Normocytic anemia-from iron deficiency anemia -Chronic gait dysfunction. Uses a walker. Disposition: Home with family Patient Condition at Discharge: Stable Plan - Discharge Summary Discharge Rx Participant: No New Discharge Prescriptions: Continue Ferrous Sulfate [Iron (65 MG Elemental)] 325 mg PO BID Megestrol Acetate 20 mg PO TID Aspirin EC [Ecotrin Low Dose] 81 mg PO DAILY Potassium Chloride 10 meq PO DAILY HYDROcodone/APAP 5-325MG [[place] 5-325] 1 tab PO Q6HR PRN PRN Reason: Pain Montelukast Sodium [Singulair] 10 mg PO DAILY Metoprolol Tartrate [Lopressor] 25 mg PO BID Discharge Medication List Ferrous Sulfate [Iron (65 MG Elemental)] 325 mg PO BID 04/27/18 [History] Megestrol Acetate 20 mg PO TID 04/27/18 [History] Aspirin EC [Ecotrin Low Dose] 81 mg PO DAILY 07/05/19 [History] HYDROcodone/APAP 5-325MG [[place] 5-325] 1 tab PO Q6HR PRN 07/05/19 [History] Potassium Chloride 10 meq PO DAILY 07/05/19 [History] Metoprolol Tartrate [Lopressor] 25 mg PO BID 10/01/19 [History] Montelukast Sodium [Singulair] 10 mg PO DAILY 10/01/19 [History] Follow up Appointment(s)/Referral(s): Constantin Snider DO [Primary Care Provider] - 1 Week Venkat Nolasco DO [Doctor of Osteopathic Medicine] - As Needed Patient Instructions/Handouts: Dementia (GEN), Fall Prevention for Older Adults (DC), Anorexia in Older Adults (GEN) Activity/Diet/Wound Care/Special Instructions: heating pad prn. use ice pack - prn Discharge Disposition: HOME SELF-CARE
== END 2019-10-03 16:31 | disposition home or self-care (01) ==
LOC: EC 06:08 → 3SCARD 08:07
PROVIDERS: ADMIT Hospitalist; ATTEND Hospitalist
DX: R07.9 Chest pain, unspecified (principal); S79.911A Unspecified injury of right hip, initial encounter; W19.XXXA Unspecified fall, initial encounter; G31.84 Mild cognitive impairment of uncertain or unknown etiology; I71.2 Thoracic aortic aneurysm, without rupture; Z20.818 Contact with and (suspected) exposure to other bacterial communicable diseases; J44.9 Chronic obstructive pulmonary disease, unspecified; J45.30 Mild persistent asthma, uncomplicated; I10 Essential (primary) hypertension; M19.91 Primary osteoarthritis, unspecified site; R26.9 Unspecified abnormalities of gait and mobility; E78.5 Hyperlipidemia, unspecified; R56.9 Unspecified convulsions; I08.1 Rheumatic disorders of both mitral and tricuspid valves; R41.3 Other amnesia; F41.9 Anxiety disorder, unspecified; D50.9 Iron deficiency anemia, unspecified; I27.20 Pulmonary hypertension, unspecified; Z82.49 Family history of ischemic heart disease and other diseases of the circulatory system; Z79.82 Long term (current) use of aspirin; Z79.891 Long term (current) use of opiate analgesic; Z79.899 Other long term (current) drug therapy; Z88.1 Allergy status to other antibiotic agents
CPT/HCPCS: 96365 ×2; 96366; 96372 ×2; 93005 ×2; 99285; 36415; 93306; 97116 ×2; 97161; 97535; 97166; 83880; 80061; 80053; 82728; 83540; 83550; 83735; 84484; 85025; 85610; 85730; 73502; 73130; 73562; 71046; G0378 ×3; J1650 ×2; S0179 ×3; J2916 ×2

== ENCOUNTER 2020-05-05 13:46 | Inpatient (IN) | payer MEDICARE ==
--- NOTE | 2020-05-05 14:25 | ED ---
Seizure HPI - General Stated Complaint: Seizure Time Seen by Provider: 05/05/20 14:00 Mode of arrival: EMS Limitations: altered mental status (dementia) - History of Present Illness Initial Comments: 74-year-old black female presents by EMS with seizure today. Patient without any complaints, does not recall the event. Denies any pain at this time. No visible injuries. Spoke with granddaughter in the waiting room who states she was walking with patient and she became very weak. Pt had a stiffening of her arms and legs "seizure" lasting about 15 seconds per granddaughter. In speaking with patient's daughter Arlene, patient had fallen yesterday while she was in another room, was unwitnessed but found on the floor. Unknown if patient hit her head or sustained any injuries after the fall per daughter. Patient's daughter states has a history of once tonic clonic seizure and treated here in the past. Patient was treated for UTI 2 weeks ago at [facility] and also told she had fluid on the lungs. 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) Description of Episode: loss of consciousness -: second(s) (15) Witnessed: yes - by other (granddaughhter) Seizure History: known seizure disorder (once seizure in past, no meds) Place: home Possible Precipitating Event: head injury (fall yesterday, unwitnessed) Associated Symptoms: denies other symptoms Treatments Prior to Arrival: none - Related Data Home Medications Medication Instructions Recorded Confirmed Ferrous Sulfate [Iron (65 MG 325 mg PO BID 04/27/18 05/05/20 Elemental)] Potassium Chloride 10 meq PO DAILY 07/05/19 05/05/20 Metoprolol Tartrate [Lopressor] 12.5 mg PO BID 10/01/19 05/05/20 Montelukast Sodium [Singulair] 10 mg PO HS 10/01/19 05/05/20 Albuterol Sulfate [Ventolin HFA] 2 puff INHALATION RT-Q6H PRN 05/05/20 05/05/20 Furosemide [Lasix] 20 mg PO DAILY PRN 05/05/20 05/05/20 Memantine [Namenda] 5 mg PO HS 05/05/20 05/05/20 Multivitamins, Thera [Multivitamin 1 tab PO DAILY 05/05/20 05/05/20 (formulary)] predniSONE 10 mg PO DAILY 05/05/20 05/05/20 Allergies Allergy/AdvReac Type Severity Reaction Status Date / Time levofloxacin Allergy Swelling Verified 05/05/20 15:42 Review of Systems ROS Statement: Those systems with pertinent positive or pertinent negative responses have been documented in the HPI. ROS Other: All systems not noted in ROS Statement are negative. Past Medical History Past Medical History: Asthma, COPD, Dementia, Hyperlipidemia, Hypertension, Memory Impairment, Renal Disease, Seizure Disorder, Vascular Disorder Additional Past Medical History / Comment(s): Short term memory loss, aortic aneurysm, irregular heart beat in the past-pt/jeison cannot recall type, seizure once- 06/2019, UTI/cystitis, nephrolithiasis, recently told she may have "kidney function" problem, falls, L hand currently swollen-pt/jeison do not know cause. History of Any Multi-Drug Resistant Organisms: None Reported Past Surgical History: Back Surgery, Hysterectomy, Orthopedic Surgery, Tonsill ectomy, Tubal Ligation Additional Past Surgical History / Comment(s): D&C, EGD, colonoscopy, L hip hemiarthroplasty d/t fracure, R shoulder surgery d/t fracture-has hardware Past Anesthesia/Blood Transfusion Reactions: No Reported Reaction, Motion Si ckness Past Psychological History: Anxiety Additional Psychological History / Comment(s): Pt resides with her jeison, Analisa. She uses a cane or walker to ambulate. Her jeison is her caregiver, she assists pt with bathing/dressin and manages her medications and also drives her to appts. Smoking Status: Never smoker Past Alcohol Use History: None Reported Past Drug Use History: None Reported - Past Family History Mother Family Medical History: Hypertension Father Family Medical History: Coronary Artery Disease (CAD), Myocardial Infarction ([place]) Additional Family Medical History / Comment(s): Father of a [place] in his 70s. General Exam Limitations: altered mental status (dementia per daughter and granddaughter) General appearance: alert, in no apparent distress Head exam: Present: atraumatic, normocephalic, normal inspection Eye exam: Present: normal appearance, PERRL, EOMI. Absent: scleral icterus, conjunctival injection, nystagmus, periorbital swelling, periorbital tenderness Pupils: Present: normal accommodation ENT exam: Present: normal exam, normal oropharynx, mucous membranes moist Neck exam: Present: normal inspection, full ROM. Absent: tenderness, men ingismus Respiratory exam: Present: rales (bases) Cardiovascular Exam: Present: regular rate, normal rhythm, normal heart sounds. Absent: systolic murmur, diastolic murmur, rubs, gallop, clicks GI/Abdominal exam: Present: soft, normal bowel sounds. Absent: distended, tenderness, guarding, rebound, rigid Neurological exam: Present: alert (person and place only) Expanded Neurological exam: Present: memory loss-recent event, protecting the airway. Absent: receptive aphasia, expressive aphasia, total aphasia, tremor Patient oriented to: Present: person, place. Absent: time Speech: Present: fluid speech. Absent: expressive aphasia Cranial nerves: EOM's Intact: Normal, Gag Reflex: Normal, Tongue Deviation: Normal, Facial Sensation: Normal Cerebellar function: Finger to Nose: Abnormal Left, Heel to [place]: Abnormal Left Upper motor neuron: Albino Neglect: Normal, Pronator Drift: Normal Motor strength exam: RUE: 5, LUE: 5, RLE: 4, LLE: 4 Eye Response: (4) open spontaneously Motor Response: (6) obeys commands Verbal Response: (5) oriented Psychiatric exam: Present: normal affect, normal mood. Absent: agitated Skin exam: Present: warm, dry, intact, normal color. Absent: cyanosis, geovanna phoretic Course Vital Signs 05/05/20 05/05/20 05/05/20 14:14 15:20 16:00 Temperature 97.7 F Pulse Rate 99 115 H 112 H Respiratory 16 18 18 Rate Blood Pressure 88/68 100/76 O2 Sat by Pulse 95 95 95 Oximetry 05/05/20 05/05/20 05/05/20 17:00 18:00 19:00 Temperature Pulse Rate 120 H 112 H 93 Respiratory 18 18 18 Rate Blood Pressure 116/76 O2 Sat by Pulse 95 95 95 Oximetry 05/05/20 05/05/20 22:26 22:42 Temperature Pulse Rate 102 H 104 H Respiratory 18 Rate Blood Pressure 115/82 124/84 O2 Sat by Pulse 94 L Oximetry - Reevaluation(s) Reevaluation #1: 05/05/20 16:14 Patient resting comfortably, granddaughter states patient received covid vaccine on April 26 and is due for a second of May 24. Patient tested positive for c ovid today. Patient having multiple PVC's EKG repeated. Troponin 0.054 Time: 16:14 Medical Decision Making - Medical Decision Making Patient with a new onset atrial fibrillation with RVR, ventricular rate of 124. With syncopal episode/seizure at home witnessed by granddaughter, and hypotension in the emergency room, troponin 0.054, patient will be brought in with cardiology consult. Patient also tested Covid positivetoday however was ill and tested 2 weeks ago at [facility], but Covid negative at that time. Received first vaccine dose on May 06, infectious disease will be consulted as well. Primary care doctor Dr. Nguyen notified of admission. - Lab Data Result diagrams: 05/05/20 15:13 05/05/20 15:13 Lab Results 05/05/20 05/05/20 05/05/20 Range/Units 14:30 15:13 15:13 WBC 8.4 (3.8-10.6) k/uL RBC 4.13 (3.80-5.40) m/uL Hgb 13.3 (11.4-16.0) gm/dL Hct 39.9 (34.0-46.0) % MCV 96.6 (80.0-100.0) fL MCH 32.3 (25.0-35.0) pg MCHC 33.4 (31.0-37.0) g/dL RDW 13.1 (11.5-15.5) % Plt Count 232 (150-450) k/uL MPV 8.4 Neutrophils % 68 % Lymphocytes % 25 % Monocytes % 4 % Eosinophils % 1 % Basophils % 1 % Neutrophils # 5.8 (1.3-7.7) k/uL Lymphocytes # 2.1 (1.0-4.8) k/uL Monocytes # 0.3 (0-1.0) k/uL Eosinophils # 0.1 (0-0.7) k/uL Basophils # 0.0 (0-0.2) k/uL Sodium 135 L (137-145) mmol/L Potassium 4.0 (3.5-5.1) mmol/L Chloride 102 (98-107) mmol/L Carbon Dioxide 27 (22-30) mmol/L Anion Gap 6 mmol/L BUN 31 H (7-17) mg/dL Creatinine 1.06 H (0.52-1.04) mg/dL Est GFR (CKD-EPI)AfAm 60 (>60 ml/min/1.73 sqM) Est GFR (CKD-EPI)NonAf 52 (>60 ml/min/1.73 sqM) Glucose 99 (74-99) mg/dL POC Glucose (mg/dL) (75-99) mg/dL POC Glu Reliability Manager ID Calcium 9.9 (8.4-10.2) mg/dL Magnesium 2.3 (1.6-2.3) mg/dL Total Bilirubin 1.8 H (0.2-1.3) mg/dL AST 51 H (14-36) U/L ALT 17 (4-34) U/L Alkaline Phosphatase 59 (38-126) U/L Troponin I (0.000-0.034) ng/mL NT-Pro-B Natriuret Pep pg/mL Total Protein 6.5 (6.3-8.2) g/dL Albumin 3.5 (3.5-5.0) g/dL Urine Color Yellow Urine Appearance Clear (Clear) Urine pH 6.0 (5.0-8.0) Ur Specific [place] 1.023 (1.001-1.035) Urine Protein 2+ H (Negative) Urine Glucose (UA) Negative (Negative) Urine Ketones Negative (Negative) Urine Blood Negative (Negative) Urine Nitrite Negative (Negative) Urine Bilirubin Negative (Negative) Urine Urobilinogen 3.0 (<2.0) mg/dL Ur Leukocyte Esterase Negative (Negative) Urine RBC <1 (0-5) /hpf Urine WBC 2 (0-5) /hpf Ur Squamous Epith Cells 1 (0-4) /hpf Urine Bacteria Rare H (None) /hpf Hyaline Casts 1 (0-2) /lpf Urine Mucus Few H (None) /hpf Coronavirus (PCR) (Not Detectd) 05/05/20 05/05/20 05/05/20 Range/Units 15:13 15:13 15:18 WBC (3.8-10.6) k/uL RBC (3.80-5.40) m/uL Hgb (11.4-16.0) gm/dL Hct (34.0-46.0) % MCV (80.0-100.0) fL MCH (25.0-35.0) pg MCHC (31.0-37.0) g/dL RDW (11.5-15.5) % Plt Count (150-450) k/uL MPV Neutrophils % % Lymphocytes % % Monocytes % % Eosinophils % % Basophils % % Neutrophils # (1.3-7.7) k/uL Lymphocytes # (1.0-4.8) k/uL Monocytes # (0-1.0) k/uL Eosinophils # (0-0.7) k/uL Basophils # (0-0.2) k/uL Sodium (137-145) mmol/L Potassium (3.5-5.1) mmol/L Chloride (98-107) mmol/L Carbon Dioxide (22-30) mmol/L Anion Gap mmol/L BUN (7-17) mg/dL Creatinine (0.52-1.04) mg/dL Est GFR (CKD-EPI)AfAm (>60 ml/min/1.73 sqM) Est GFR (CKD-EPI)NonAf (>60 ml/min/1.73 sqM) Glucose (74-99) mg/dL POC Glucose (mg/dL) (75-99) mg/dL POC Glu Reliability Manager ID Calcium (8.4-10.2) mg/dL Magnesium (1.6-2.3) mg/dL Total Bilirubin (0.2-1.3) mg/dL AST (14-36) U/L ALT (4-34) U/L Alkaline Phosphatase (38-126) U/L Troponin I 0.054 H* (0.000-0.034) ng/mL NT-Pro-B Natriuret Pep 4370 pg/mL Total Protein (6.3-8.2) g/dL Albumin (3.5-5.0) g/dL Urine Color Urine Appearance (Clear) Urine pH (5.0-8.0) Ur Specific [place] (1.001-1.035) Urine Protein (Negative) Urine Glucose (UA) (Negative) Urine Ketones (Negative) Urine Blood (Negative) Urine Nitrite (Negative) Urine Bilirubin (Negative) Urine Urobilinogen (<2.0) mg/dL Ur Leukocyte Esterase (Negative) Urine RBC (0-5) /hpf Urine WBC (0-5) /hpf Ur Squamous Epith Cells (0-4) /hpf Urine Bacteria (None) /hpf Hyaline Casts (0-2) /lpf Urine Mucus (None) /hpf Coronavirus (PCR) Detected A (Not Detectd) 05/05/20 Range/Units 15:24 WBC (3.8-10.6) k/uL RBC (3.80-5.40) m/uL Hgb (11.4-16.0) gm/dL Hct (34.0-46.0) % MCV (80.0-100.0) fL MCH (25.0-35.0) pg MCHC (31.0-37.0) g/dL RDW (11.5-15.5) % Plt Count (150-450) k/uL MPV Neutrophils % % Lymphocytes % % Monocytes % % Eosinophils % % Basophils % % Neutrophils # (1.3-7.7) k/uL Lymphocytes # (1.0-4.8) k/uL Monocytes # (0-1.0) k/uL Eosinophils # (0-0.7) k/uL Basophils # (0-0.2) k/uL Sodium (137-145) mmol/L Potassium (3.5-5.1) mmol/L Chloride (98-107) mmol/L Carbon Dioxide (22-30) mmol/L Anion Gap mmol/L BUN (7-17) mg/dL Creatinine (0.52-1.04) mg/dL Est GFR (CKD-EPI)AfAm (>60 ml/min/1.73 sqM) Est GFR (CKD-EPI)NonAf (>60 ml/min/1.73 sqM) Glucose (74-99) mg/dL POC Glucose (mg/dL) 95 (75-99) mg/dL POC Glu Reliability Manager ID Arlene Hurley Calcium (8.4-10.2) mg/dL Magnesium (1.6-2.3) mg/dL Total Bilirubin (0.2-1.3) mg/dL AST (14-36) U/L ALT (4-34) U/L Alkaline Phosphatase (38-126) U/L Troponin I (0.000-0.034) ng/mL NT-Pro-B Natriuret Pep pg/mL Total Protein (6.3-8.2) g/dL Albumin (3.5-5.0) g/dL Urine Color Urine Appearance (Clear) Urine pH (5.0-8.0) Ur Specific [place] (1.001-1.035) Urine Protein (Negative) Urine Glucose (UA) (Negative) Urine Ketones (Negative) Urine Blood (Negative) Urine Nitrite (Negative) Urine Bilirubin (Negative) Urine Urobilinogen (<2.0) mg/dL Ur Leukocyte Esterase (Negative) Urine RBC (0-5) /hpf Urine WBC (0-5) /hpf Ur Squamous Epith Cells (0-4) /hpf Urine Bacteria (None) /hpf Hyaline Casts (0-2) /lpf Urine Mucus (None) /hpf Coronavirus (PCR) (Not Detectd) When compared to previous EKG there are: changes noted (Unable to determine ND interval from EKG, ventricular rate 139, QRS of 0.70, QTC of 429 and S. ekg Compared to old EKG dated September 2019,) 05/05/20 16:51 Second EKG done at [address] shows A. fib with RVR at a rate of 124, QRS of 0.84, QTC 0.4 0.3. Patient will be admitted with new onset A. fib started on Cardizem, and heparin pending guiac negative. Patient without complaints. Granddaughter at bedside. Disposition Clinical Impression: New onset a-fib, COVID-19 Disposition: ADMITTED IP TO THIS [facility] Condition: Fair Is patient prescribed a controlled substance at d/c from ED?: No
[2020-05-05] MEDS ORDERED: SODIUM CHLORIDE 0.9% 500 ML 500 ML IV ONE (14:42)
[2020-05-05 15:16] LABS: Appearance,Urine Clear (Clear); Bacteria,Urine Rare /hpf; Bilirubin,Urine Negative (Negative); Blood,Urine Negative (Negative); Color,Urine Yellow; Glucose,Urine (UA) Negative (Negative); Hyaline Casts,Urine 1 /lpf (0-2); Ketones,Urine Negative (Negative); Leukocyte Esterase,Urine Negative (Negative); Mucus,Urine Few /hpf; Nitrite,Urine Negative (Negative); Protein,Urine 2+ (Negative); RBC,Urine <1 /hpf (0-5); Specific Gravity,Urine 1.023 (1.001-1.035); Squamous Epithelial Cell,Urine 1 /hpf (0-4); WBC,Urine 2 /hpf (0-5)
[2020-05-05 15:24] LABS: Basophils % (A) 1 %; Eosinophils # (A) 0.1 k/uL (0-0.7); Eosinophils % (A) 1 %; HCT 39.9 % (34.0-46.0); HGB 13.3 gm/dL (11.4-16.0); Lymphocytes # (A) 2.1 k/uL (1.0-4.8); Lymphocytes % (A) 25 %; MCH 32.3 pg (25.0-35.0); MCHC 33.4 g/dL (31.0-37.0); MCV 96.6 fL (80.0-100.0); Mean Platelet Volume 8.4; Monocytes # (A) 0.3 k/uL (0-1.0); Monocytes % (A) 4 %; Neutrophils # (A) 5.8 k/uL (1.3-7.7); Neutrophils % (A) 68 %; Platelet Count 232 k/uL (150-450); RBC 4.13 m/uL (3.80-5.40); RDW 13.1 % (11.5-15.5); WBC 8.4 k/uL (3.8-10.6)
[2020-05-05 15:26] LABS: Glucose,Whole Blood 95 mg/dL (75-99)
[2020-05-05 15:44] LABS: Albumin 3.5 g/dL (3.5-5.0); Calcium 9.9 mg/dL (8.4-10.2); Magnesium 2.3 mg/dL (1.6-2.3); Total Bilirubin 1.8 mg/dL (0.2-1.3); Total Protein 6.5 g/dL (6.3-8.2)
--- NOTE | 2020-05-05 16:04 | XR ---
EXAMINATION TYPE: XR chest 2V DATE OF EXAM: 05/05/2020 COMPARISON: 10/01/2019 HISTORY: 74-year-old female seizure, fall, pain TECHNIQUE: AP and lateral views FINDINGS: Heart is mildly enlarged. Tortuous thoracic aorta with atherosclerotic arch calcifications. There are trace effusions with mild patchy basilar opacities periphery of the lungs. Postsurgical posttraumati c shortening of the distal left clavicle. Upper and mid lungs appear clear. IMPRESSION: 1. Mild cardiomegaly. 2. Trace effusions with some adjacent patchy atelectasis or consolidation.
--- NOTE | 2020-05-05 16:05 | CT ---
EXAMINATION TYPE: CT brain wo con DATE OF EXAM: 05/05/2020 COMPARISON: 07/05/2019 HISTORY: weakness CT DLP: 1114.[address] of the brain was performed. The ventricles, basal cisterns and sulci overlying the cerebral convexities demonstrate moderate enla rgement. There is no evidence for intracranial hemorrhage or sulcal effacement. There is confluent decreased attenuation about the periventricular white matter and deep white matter of both cerebral hemispheres, compatible with chronic small vessel ischemia. Differential diagnosis does include demyelination. No mass effects are seen.No midline shift. Osseous calvarium is intact. If symptoms persist consider MRI. IMPRESSION: 1. Age related atrophic and chronic small vessel ischemic change without acute intracranial process s een at this time.
[2020-05-05] MEDS ORDERED: NALOXONE 0.4 MG/ML 1 ML VIAL IV PRN (16:27)
[2020-05-05] MEDS ORDERED: HEPARIN SODIUM,PORCINE 5,000 UNIT/ML 1 ML VIAL IV PRN (16:44)
[2020-05-05] MEDS ORDERED: HEPARIN SODIUM,PORCINE 5,000 UNIT/ML 1 ML VIAL IV ONE (16:44)
[2020-05-05] MEDS ORDERED: DILTIAZEM 125 MG in SODIUM CHLORIDE 0.9% 100 ML IV SCH (16:45)
[2020-05-05] MEDS ORDERED: HEPARIN SOD,PORK IN 0.45% NACL 25,000 UNIT in 0.45% NACL 1 250ML.BAG IV SCH (16:45)
[2020-05-05 19:25] LABS: INR 0.9 (<1.2); Partial Thromboplastin Time 25.3 sec (22.0-30.0); Prothrombin Time 10.2 sec (9.0-12.0)
[2020-05-06] MEDS ORDERED: ACETAMINOPHEN TAB 325 MG TAB PO PRN (00:13)
[2020-05-06] MEDS: methylPREDNISolone SOD SUCCI 40 MG/ML 1 ML VIAL IV SCH ×3 (00:22→18:45)
[2020-05-06] MEDS: ZINC SULFATE 220 MG CAP PO SCH ×2 (00:22→10:33)
--- NOTE | 2020-05-06 00:43 | HP ---
HISTORY AND PHYSICAL 74-year-old black female presents with a seizure today. She does not recall the event. She was very weak, stiffening and possible seizure 15 seconds per granddaughter. She had fallen yesterday, was in another room when she was found on the floor. Unknown if she hit her head or other injuries. Possibly history of a tonic-clonic seizure. She had a UTI 2 weeks ago at [facility]. She had fluid on the lungs, admitted at [facility] for asthma exacerbation, tracheobronchitis, actually. Prior history of a seizure. She is positive for Covid here in the ER with hypoxemia on 4 L 98%. MEDICATIONS: Home medications: Ferrous sulfate 325 b.i.d., potassium chloride 10 mEq daily, Lopressor 12.5 b.i.d., Singulair 10 mg daily, Ventolin HFA 2 puffs q.6h p.r.n., Lasix 20 daily, Namenda 5 mg q.h.s., multivitamin daily, prednisone 10 daily. ALLERGIES: LEVAQUIN. REVIEW OF SYMPTOMS: 14-point review of systems otherwise negative as mentioned in the H&P. SOCIAL HISTORY: Does not smoke. No alcohol or drugs. She moved here from [place]. PAST FAMILY HISTORY: Mother with hypertension. Father coronary artery disease, myocardial infarction. PHYSICAL EXAM: Altered mental status. She has some dementia per her family. She is alert. She answers questions appropriately. She is breathing on 4 L decent. Pupils equal, round, reactive. External ear canals within normal limits. NECK: Supple. No mass. RESPIRATORY: Rales at the bases. CARDIOVASCULAR: Regular rate and rhythm, S1, S2. NEUROLOGIC: She is alert to person, place. She moves all 4 extremities. Cranial nerves appear to be intact. Speech is normal. Obeys commands. Temperature 97.7. Heart rate is 112. O2 on 4 L is high 90s. Blood pressure is 88/68, on admission, now 100/75, heart rate is in mid 120s. Appears to be atrial fibrillation on the monitor. ASSESSMENT: 1. New onset atrial fibrillation, rapid ventricular response. 2. Covid pneumonia. 3. Asthma. 4. Chronic obstructive pulmonary disease exacerbation. 5. Elevated troponins. We will have to treat for Covid. Please see current treatments. Infectious Disease consulted. Rehydrate her. Hold her Lasix. Continue blood pressure medications. PROGNOSIS: Extremely guarded. MMODL / IJN: [id number] /
[2020-05-06 01:37] LABS: Basophils % (A) 0 %; Eosinophils # (A) 0.1 k/uL (0-0.7); Eosinophils % (A) 1 %; HCT 36.7 % (34.0-46.0); HGB 12.2 gm/dL (11.4-16.0); Lymphocytes # (A) 1.1 k/uL (1.0-4.8); Lymphocytes % (A) 11 %; MCH 32.1 pg (25.0-35.0); MCHC 33.3 g/dL (31.0-37.0); MCV 96.5 fL (80.0-100.0); Mean Platelet Volume 8.4; Monocytes # (A) 0.2 k/uL (0-1.0); Monocytes % (A) 2 %; Neutrophils # (A) 8.6 k/uL (1.3-7.7); Neutrophils % (A) 86 %; Platelet Count 196 k/uL (150-450); RBC 3.81 m/uL (3.80-5.40); RDW 13.2 % (11.5-15.5)
--- NOTE | 2020-05-06 03:00 | CT ---
EXAM: CT Chest Without Intravenous Contrast CLINICAL HISTORY: cap/effusion/covid TECHNIQUE: Axial computed tomography images of the chest without intravenous contrast. CTDI is 5.17 mGy and DLP is 195.9 mGy-cm. This CT exam was performed using one or more of the following dose reduction techniques: automated exposure control, adjustment of the mA and/or kV according to patient size, and/or use of iterative reconstruction technique. COMPARISON: CTA chest April 30, 2018. FINDINGS: Lungs: Extensive patchy, predominantly peripheral infiltrates in the lungs bilaterally, most pronounced in the lower lung shea. This is consistent with pneumonia. Pleural space: Trace right pleural effusion. No evidence of pneumothorax. Heart: Unremarkable. No cardiomegaly. No significant pericardial effusion. Bones/joints: Unremarkable. No acute fracture. No dislocation. Soft tissues: Unremarkable. Vasculature: Tortuous thoracic aorta without evidence of aneurysm. Extensive atherosclerotic calcification of the coronary arteries. Lymph nodes: Unremarkable. No enlarged lymph nodes. IMPRESSION: Bilateral pulmonary infiltrate consistent with pneumonia.
[2020-05-06 03:19] LABS: C Reactive Protein 153.9 mg/L (<10.0)
[2020-05-06] MEDS ORDERED: METOPROLOL TARTRATE 25 MG TAB PO SCH (09:00)
--- NOTE | 2020-05-06 09:25 | P.CNNES ---
History of Present Illness Consult date: 05/06/20 Requesting physician: Lalo Nguyen Reason for Consult: seizure History of Present Illness: This is a 74-year-old woman with history of seizure, congestive heart failure, COPD, mild to moderate dementia that presented to the emergency department on 05/05/2020 for a seizure episode. History was obtained from medical records since the patient was unable to provide that. Per the ED notes according to the patient's granddaughter the patient had stiffening of her arms and leg and the granddaughter felt like was a seizure and it lasted for 15 seconds. It seems that the the patient had a fall episode the day prior to presentation but the fall episode was unwitnessed and she was found on the floor. It is documented by the ED note that the daughter stated that she had the tonic-clonic seizure in the past. It seems that the patient had a urinary tract infection 2 weeks ago and was treated at [facility] and had fluid in the lungs. Per the patient she stated she came in to the hospital she not feeling well. Besides that unable to provide history. Patient's home medication is Namenda 5 mg daily at bedtime, multivitamins, prednisone 10 mg daily, Lasix 20 mg when necessary, metoprolol, potassium chloride, ferrous sulfate. Patient workup in the hospital consisted of: Initial vital signs: Blood pressure of 88/68, heart rate of 99, respiratory of 16, temperature of 97.7 Fahrenheit oral, pulse ox of 95% on nasal cannula of 2 L. Patient had 1 episode of a temperature of 101.9 Fahrenheit otherwise the t emperature has been normal. The heart rate has been in the range of 100 to 120s in the hospital so far so. CT of the head is reported as age related atrophy and chronic small vessel ischemic change without acute intracranial process seen at this time. White blood cells 8.4 and the repeated sampling 0 which is are considered normal. Sodium is 135 which is more mildly low. The history is 51 and the ALT 17. The initial serum glucose is 99 was considered normal. Troponin is 0.054 which is elevated. Ley virus PCR is detected. Upon reviewing medical records, Dr. Gretta Walden (Neuro-Hospitalist) eval with the patient on 07/06/2019 for new onset seizure. Please defer to her note for further details. But some of the work-up is EEG on 07/06/2019 which is reported as an abnormal EEG due to the following #1 irregular EKG. Intermittent frontal slowing. The background is considered slow for the patient's state did age, it's unclear if she is drowsy or this could be at her baseline mentation. This EEG was technically difficult and therefore cannot exclude an underlying seizure tendency. If clinically indicated a more prolonged overnight study and or serial EEG is strongly recommended. That and neuro-hospitalist recommended MRI the brain CT and MRI the brain. Also it is mentioned in there are any C further seizure episodes please start the patient on Keppra 500 mg twice a day Vitamin B12 at that time was 487 which is considered normal, folate 6.2 which is normal, the TSH is 1.96 also normal. Review of Systems Review of system: Is limited but the pertitent positive and negative as per HPI. Past Medical History Past Medical History: Asthma, COPD, Dementia, Hyperlipidemia, Hypertension, Baltazar ry Impairment, Renal Disease, Seizure Disorder, Vascular Disorder Additional Past Medical History / Comment(s): Short term memory loss, aortic aneurysm, irregular heart beat in the past-pt/jeison cannot recall type, seizure once- 06/2019, UTI/cystitis, nephrolithiasis, recently told she may have "kidney function" problem, falls, L hand currently swollen-pt/jeison do not know cause. History of Any Multi-Drug Resistant Organisms: None Reported Past Surgical History: Back Surgery, Hysterectomy, Orthopedic Surgery, Tonsillectomy, Tubal Ligation Additional Past Surgical History / Comment(s): D&C, EGD, colonoscopy, L hip hemiarthroplasty d/t fracure, R shoulder surgery d/t fracture-has hardware Past Anesthesia/Blood Transfusion Reactions: No Reported Reaction, Motion Sickness Past Psychological History: Anxiety Additional Psychological History / Comment(s): Pt resides with her jeison, Analisa. She uses a cane or walker to ambulate. Her jeison is her caregiver, she assists pt with bathing/dressin and manages her medications and also drives her to appts. Smoking Status: Never smoker Past Alcohol Use History: None Reported Past Drug Use History: None Reported - Past Family History Mother Family Medical History: Hypertension Father Family Medical History: Coronary Artery Disease (CAD), Myocardial Infarction ([place]) Additional Family Medical History / Comment(s): Father of a [place] in his 70s. Medications and Allergies Home Medications Medication Instructions Recorded Confirmed Type Ferrous Sulfate [Iron (65 MG 325 mg PO BID 04/27/18 05/05/20 History Elemental)] Potassium Chloride 10 meq PO DAILY 07/05/19 05/05/20 History Metoprolol Tartrate [Lopressor] 12.5 mg PO BID 10/01/19 05/05/20 History Montelukast Sodium [Singulair] 10 mg PO HS 10/01/19 05/05/20 History Albuterol Sulfate [Ventolin HFA] 2 puff INHALATION RT-Q6H PRN 05/05/20 05/05/20 History Furosemide [Lasix] 20 mg PO DAILY PRN 05/05/20 05/05/20 History Memantine [Namenda] 5 mg PO HS 05/05/20 05/05/20 History Multivitamins, Thera [Multivitamin 1 tab PO DAILY 05/05/20 05/05/20 History (formulary)] predniSONE 10 mg PO DAILY 05/05/20 05/05/20 History Apixaban [Eliquis] 5 mg PO BID #60 tab 05/06/20 Rx Allergies Allergy/AdvReac Type Severity Reaction Status Date / Time levofloxacin Allergy Swelling Verified 05/05/20 15:42 Physical Examination - Vital Signs Vital Signs: Vital Signs Temp Pulse Pulse Resp BP BP Pulse Ox 05/06/20 04:50 98.3 F 102 H 20 115/60 100 05/06/20 01:40 99.4 F 103 H 20 111/52 100 05/05/20 23:00 101.9 F H 107 H 22 128/78 98 05/05/20 22:42 104 H 124/84 05/05/20 22:26 102 H 18 115/82 94 L 05/05/20 19:00 93 18 95 05/05/20 18:00 112 H 18 95 05/05/20 17:00 120 H 18 116/76 95 05/05/20 16:00 112 H 18 95 05/05/20 15:20 115 H 18 100/76 95 05/05/20 14:14 97.7 F 99 16 88/68 95 Intake and Output 05/05/20 05/06/20 05/06/20 22:59 06:59 14:59 Intake Total 26.143 Balance 26.143 Intake: Intake, IV Titration 26.143 Amount Heparin Sod,Pork in 0.45% 26.143 NaCl 25,000 unit In 0.45 % NaCl 1 250ml.bag @ 12 UNITS/KG/HR 5.987 mls/hr IV .Q24H [facility] Rx#: [id number] Other: Voiding Method Bedpan Diaper # Voids 1 # Bowel Movements 1 Weight 68 kg GENERAL: The patient is lying in bed and is not in acute distress. CHEST: The heart rate is regular rate rhythm. No murmurs to auscultation. LUNG: Clear to auscultation bilaterally no wheezing noted throughout. Not labored breathing. ABDOMEN/GI: Bowel sounds present in all 4 quadrants. No tenderness to palpation throughout. NEUROLOGICAL: Higher mental function: The patient is awake, alert, oriented to self. She stated she is in the hospital but could not tell me name. She said she does not know the year. Patient is able to name objects correctly: pen and water in the cup. Patient is following simple commands. No aphasia and no neglect. Cranial nerves: The pupils are round, equal and reactive to light. Visual shea could not assess because of patient's cooperation. Extraocular movement is intact no nystagmus is noted. Facial sensation is normal to touch throughout. The facial strength is normal throughout. Hearing is moderately d ecreased to hand rub bilaterally. Tongue is midline and moved [id number] without any difficulty. No dysarthria is noted. Has antigravity to shoulder shrug. Motor: Gait is deferred. The strength is moving all extremities above gravity without drift (at least 4+ throughout) but limited because of cooperation. Normal tone and bulk. Cerebellum: Normal finger to nose bilaterally. Sensation: Sensation is normal to touch throughout. Reflexes (right/left): 2+ throughout. Plantars are downgoing bilaterally. Results Initial coagulation study: PT of 10.2, INR 0.9, PTT of 25.3. Urinalysis is negative for urinary tract infection. - Laboratory Findings CBC and BMP: 05/06/20 01:20 05/05/20 15:13 Abnormal Lab Findings: Abnormal Labs 05/05/20 05/05/20 05/05/20 14:30 15:13 15:13 Neutrophils # APTT Sodium 135 L BUN 31 H Creatinine 1.06 H Total Bilirubin 1.8 H AST 51 H Troponin I 0.054 H* C-Reactive Protein Urine Protein 2+ H Urine Bacteria Rare H Urine Mucus Few H Coronavirus (PCR) 05/05/20 05/05/20 05/06/20 15:18 22:31 01:20 Neutrophils # 8.6 H APTT 58.6 H Sodium BUN Creatinine Total Bilirubin AST Troponin I C-Reactive Protein Urine Protein Urine Bacteria Urine Mucus Coronavirus (PCR) Detected A 05/06/20 05/06/20 01:20 01:20 Neutrophils # APTT 53.9 H Sodium BUN Creatinine Total Bilirubin AST Troponin I C-Reactive Protein 153.9 H Urine Protein Urine Bacteria Urine Mucus Coronavirus (PCR) Assessment and Plan Assessment: This is a 74-year-old woman with history of seizure that presented to the emergency department on 05/05/2020 for a seizure episode. Patient had stiffening of her arms and leg and the granddaughter felt like was a seizure and it lasted for 15 seconds. Provoked seizure and is not on any seizure medication (had her first seizure onset in our record was 07/06/2019). One of the triggers for break-through seizure is underlying infection (Covid 19 pneumonitis). Acute Pneumonia due Covid 19 positive Documented mild to moderate dementia Elevated troponin Congestive heart failure COPD Plan: I start the patient on Keppra 500 mg 1 tablet twice a day. I loaded the patient with Keppra 1 g once. I ordered MRI of the brain (was requested in past but not done). Will attempt again. An EEG is not needed since the patient already had an EEG in our system and will not changes management. Cardiology is consulted for the elevated troponin. We'll defer the rest of medical management to the primary team Upon discharge, the patient needs to follow-up with a neurologist within 1-2 weeks. Thank you for the consultation. Suleman Chandler M.D. Neuro-hospitalist Time with Patient: Greater than 30
[2020-05-06] MEDS ORDERED: levETIRAcetam IV 1,000 MG in SALINE 1 100ML.BAG IVPB STA (09:26)
--- NOTE | 2020-05-06 10:20 | P.CRDCN ---
History of Present Illness History of present illness: HISTORY OF PRESENTING ILLNESS This is a pleasant 74-year-old female past medical history significant for hypertension, dyslipidemia, chronic kidney disease and dementia. She does not follow in the office with a electrocardiograph repairer. We have been asked to see in consultation for new onset atrial fibrillation. She is a poor historian and appears paranoid, information is obtained from the medical record and nursing staff. She was brought to the hospital with symptoms of weakness and possible seizure activity per her granddaughter. She has been diagnosed with Covid 19 on admission. She is seen and interviewed, she denies chest pain, shortness of breath, dizziness or palpitations. She is unsure why she was brought to the hospital. DIAGNOSTICS EKG reveals atrial fibrillation heart rate of 124 with PVCs and T-wave inversion in the anterior leads. T wave abnormalities noted in previous EKGs. 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 Chest xray trace effusions with some adjacent patchy atelectasis. Laboratory reviewed, WBC 10, hemoglobin 12.2, platelets 196, C-reactive protein 153, sodium 135, potassium 4.0, creatinine 1.06, magnesium 2.3, troponin 0.054 and NT proBNP 4370. Current cardiac medications include Lopressor 12.5 mg twice a day and Lasix 20 mg daily as needed. Most recent echocardiogram obtained September 2019 revealed preserved LV systolic function with ejection fraction 55-60%, grade 1 diastolic dysfunction, moderate tricuspid regurgitation, mild pulmonary hypertension with an RVSP of 39 mmHg and mild mitral regurgitation. REVIEW OF SYSTEMS At the time of my exam: CONSTITUTIONAL: Denies fever or chills. CARDIOVASCULAR: Denies chest pain, shortness of breath, orthopnea, PND or palpitations. RESPIRATORY: Denies cough. GASTROINTESTINAL: Denies abdominal pain, diarrhea, constipation, nausea or vomiting. MUSCULOSKELETAL: Denies myalgias. NEUROLOGIC: Denies numbness, tingling, headacbe or weakness. ENDOCRINE: Denies fatigue, weight change, polydipsia or polyurina. GENITOURINARY: Denies burning, hematuria or urgency with micturation. HEMATOLOGIC: Denies history of anemia or bleeding. PHYSICAL EXAMINATION Blood pressure 115/60 heart rate 102 afebrile and maintaining oxygen saturation on currently afebrile however temperature of 101.1F last night. CONSTITUTIONAL: No apparent distress. Thorough exam not completed secondary to Covid 19 infection to prevent the spread of infection. ASSESSMENT Covid 19 New-onset paroxysmal atrial fibrillation with rapid ventricular rate Possible seizure Febrile illness Hypertension Dyslipidemia Chronic kidney disease Dementia PLAN Neurology has recommended an MRI. In terms of afib, we will increase the lopressory to 25 mg BID and initiate eliquis 5 mg BID for thromboembolic protection. Discontinue cardizem and heparin infusion. Echocardiogram has been obtained and will be reviewed. Ongoing medical management and treatment of Covid and neurology concerns. Thank you kindly for this consultation. Nurse Practitioner note has been reviewed, I agree with a documented findings and plan of care. Patient was seen and examined. Past Medical History Past Medical History: Asthma, COPD, Dementia, Hyperlipidemia, Hypertension, Memory Impairment, Renal Disease, Seizure Disorder, Vascular Disorder Additional Past Medical History / Comment(s): Short term memory loss, aortic aneurysm, irregular heart beat in the past-pt/jeison cannot recall type, seizure once- 06/2019, UTI/cystitis, nephrolithiasis, recently told she may have "kidney function" problem, falls, L hand currently swollen-pt/jeison do not know cause. History of Any Multi-Drug Resistant Organisms: None Reported Past Surgical History: Back Surgery, Hysterectomy, Orthopedic Surgery, Tonsillectomy, Tubal Ligation Additional Past Surgical History / Comment(s): D&C, EGD, colonoscopy, L hip hemiarthroplasty d/t fracure, R shoulder surgery d/t fracture-has hardware Past Anesthesia/Blood Transfusion Reactions: No Reported Reaction, Motion Sickness Past Psychological History: Anxiety Additional Psychological History / Comment(s): Pt resides with her jeison, Analisa. She uses a cane or walker to ambulate. Her jeison is her caregiver, she assists pt with bathing/dressin and manages her medications and also drives her to [employer]. Smoking Status: Never smoker Past Alcohol Use History: None Reported Past Drug Use History: None Reported - Past Family History Mother Family Medical History: Hypertension Father Family Medical History: Coronary Artery Disease (CAD), Myocardial Infarction (OR) Additional Family Medical History / Comment(s): Father of a OR in his 70s. Medications and Allergies Home Medications Medication Instructions Recorded Confirmed Type Ferrous Sulfate [Iron (65 MG 325 mg PO BID 04/27/18 05/05/20 History Elemental)] Potassium Chloride 10 meq PO DAILY 07/05/19 05/05/20 History Metoprolol Tartrate [Lopressor] 12.5 mg PO BID 10/01/19 05/05/20 History Montelukast Sodium [Singulair] 10 mg PO HS 10/01/19 05/05/20 History Albuterol Sulfate [Ventolin HFA] 2 puff INHALATION RT-Q6H PRN 05/05/20 05/05/20 History Furosemide [Lasix] 20 mg PO DAILY PRN 05/05/20 05/05/20 History Memantine [Namenda] 5 mg PO HS 05/05/20 05/05/20 History Multivitamins, Thera [Multivitamin 1 tab PO DAILY 05/05/20 05/05/20 History (formulary)] predniSONE 10 mg PO DAILY 05/05/20 05/05/20 History Apixaban [Eliquis] 5 mg PO BID #60 tab 05/06/20 Rx Allergies Allergy/AdvReac Type Severity Reaction Status Date / Time levofloxacin Allergy Swelling Verified 05/05/20 15:42 Physical Exam Vitals: Vital Signs Temp Pulse Pulse Resp BP BP Pulse Ox 05/06/20 04:50 98.3 F 102 H 20 115/60 100 05/06/20 01:40 99.4 F 103 H 20 111/52 100 05/05/20 23:00 101.9 F H 107 H 22 128/78 98 05/05/20 22:42 104 H 124/84 05/05/20 22:26 102 H 18 115/82 94 L 05/05/20 19:00 93 18 95 05/05/20 18:00 112 H 18 95 05/05/20 17:00 120 H 18 116/76 95 05/05/20 16:00 112 H 18 95 05/05/20 15:20 115 H 18 100/76 95 05/05/20 14:14 97.7 F 99 16 88/68 95 Intake and Output 05/05/20 05/06/20 05/06/20 22:59 06:59 14:59 Intake Total 26.143 Balance 26.143 Intake: Intake, IV Titration 26.143 Amount Heparin Sod,Pork in 0.45% 26.143 NaCl 25,000 unit In 0.45 % NaCl 1 250ml.bag @ 12 UNITS/KG/HR 5.987 mls/hr IV .Q24H MACI Rx#: [id number] Other: Voiding Method Bedpan Diaper # Voids 1 # Bowel Movements 1 Weight 68 kg Results 05/06/20 01:20 05/05/20 15:13 Cardiac Enzymes 05/05/20 05/05/20 05/06/20 Range/Units 15:13 15:13 01:20 AST 51 H (14-36) U/L Lactate Dehydrogenase 496 (313-618) U/L Troponin I 0.054 H* (0.000-0.034) ng/mL Coagulation 05/05/20 05/05/20 05/06/20 Range/Units 19:05 22:31 01:20 PT 10.2 (9.0-12.0) sec APTT 25.3 58.6 H 53.9 H (22.0-30.0) sec CBC 05/05/20 05/06/20 Range/Units 15:13 01:20 WBC 8.4 10.0 (3.8-10.6) k/uL RBC 4.13 3.81 (3.80-5.40) m/uL Hgb 13.3 12.2 (11.4-16.0) gm/dL Hct 39.9 36.7 (34.0-46.0) % Plt Count 232 196 (150-450) k/uL Comprehensive Metabolic Panel 05/05/20 Range/Units 15:13 Sodium 135 L (137-145) mmol/L Potassium 4.0 (3.5-5.1) mmol/L Chloride 102 (98-107) mmol/L Carbon Dioxide 27 (22-30) mmol/L BUN 31 H (7-17) mg/dL Creatinine 1.06 H (0.52-1.04) mg/dL Glucose 99 (74-99) mg/dL Calcium 9.9 (8.4-10.2) mg/dL AST 51 H (14-36) U/L ALT 17 (4-34) U/L Alkaline Phosphatase 59 (38-126) U/L Total Protein 6.5 (6.3-8.2) g/dL Albumin 3.5 (3.5-5.0) g/dL Current Medications Generic Name Dose Route Start Last Admin Trade Name Freq PRN Reason Stop Dose Admin Acetaminophen 650 mg 05/06/20 00:13 05/06/20 00:22 Acetaminophen Tab 325 Mg Tab PO 650 mg Q4HR PRN Administration Fever and/ or Pain Albuterol Sulfate 2 puff 05/05/20 23:45 Albuterol Hfa Inhaler INHALATION RT-Q6H PRN Shortness Of Breath Ferrous Sulfate 325 mg 05/06/20 09:00 Ferrous Sulfate 325 Mg Tab PO BID [facility] Fluticasone Propionate 2 puff 05/06/20 08:00 Fluticasone 220 Mcg Inhaler INHALATION RT-BID [facility] Heparin Sodium (Porcine) 0 unit 05/05/20 16:44 Heparin Sodium,Porcine 5,000 Unit/Ml 1 Ml Vial IV PER PROTOCOL PRN Low PTT Protocol Diltiazem HCl 125 mg/ Sodium 125 mls @ 5 mls/hr 05/05/20 16:45 05/05/20 17:37 Chloride IV 5 mg/hr .Q24H MACI 5 mls/hr Administration 5 MG/HR Heparin Sodium/Sodium Chloride 250 mls @ 5.987 mls/hr 05/05/20 16:45 05/06/20 00:09 25,000 unit/ Sodium Chloride IV 12 units/kg/hr .Q24H MACI 5.987 mls/hr Titration Protocol 12 UNITS/KG/HR Memantine 5 mg 05/06/20 21:00 Memantine 5 Mg Tab PO HS [facility] Methylprednisolone Sodium Succinate 40 mg 05/06/20 00:00 05/06/20 00:22 Methylprednisolone Sod Succi 40 Mg/Ml 1 Ml Vial IV 40 mg Q8HR [facility]I Administration Metoprolol Tartrate 12.5 mg 05/06/20 09:00 Metoprolol Tartrate 25 Mg Tab PO BID [facility] Montelukast Sodium 10 mg 05/06/20 21:00 Montelukast 10 Mg Tab PO HS [facility] Multivitamins 1 each 05/06/20 09:00 Multivitamins, Thera 1 Each Tab PO DAILY [facility] Naloxone HCl 0.2 mg 05/05/20 16:27 Naloxone 0.4 Mg/Ml 1 Ml Vial IV Q2M PRN Opioid Reversal Salmeterol Xinafoate 1 puff 05/06/20 08:00 Salmeterol 50 Mcg Inhaler INHALATION RT-Q12H [facility] Zinc Sulfate 220 mg 05/05/20 23:45 05/06/20 00:22 Zinc Sulfate 220 Mg Cap PO 220 mg DAILY MACI Administration Intake and Output 05/05/20 05/06/20 05/06/20 22:59 06:59 14:59 Intake Total 26.143 Balance 26.143 Intake: Intake, IV Titration 26.143 Amount Heparin Sod,Pork in 0.45% 26.143 NaCl 25,000 unit In 0.45 % NaCl 1 250ml.bag @ 12 UNITS/KG/HR 5.987 mls/hr IV .Q24H [facility] Rx#: [id number] Other: Voiding Method Bedpan Diaper # Voids 1 # Bowel Movements 1 Weight 68 kg 05/06/20 01:20 05/05/20 15:13
[2020-05-06] MEDS: MULTIVITAMINS, THERA 1 EACH TAB PO SCH (10:33)
[2020-05-06] MEDS: METOPROLOL TARTRATE 25 MG TAB PO SCH ×2 (10:33→21:37)
[2020-05-06] MEDS: FERROUS SULFATE 325 MG TAB PO SCH ×2 (10:33→21:38)
[2020-05-06] MEDS: APIXABAN 5 MG TAB PO SCH ×2 (10:33→21:38)
--- NOTE | 2020-05-06 11:00 | ECHOF ---
Referral Reason:afib MEASUREMENTS -------- HEIGHT: 162.6 cm WEIGHT: 49.9 kg BP: RVIDd: 3.2 cm (< 3.3) IVSd: 1.3 cm (0.6 - 1.1) LVIDd: 3.3 cm (3.9 - 5.3) LVPWd: 1.1 cm (0.6 - 1.1) IVSs: 1.5 cm LVIDs: 2.8 cm LVPWs: 1.4 cm LA Diam: 3.5 cm (2.7 - 3.8) Ao Diam: 3.3 cm (2.0 - 3.7) AV Cusp: 1.8 cm (1.5 - 2.6) LA Diam: 3.7 cm (2.7 - 3.8) MV EXCURSION: 14.267 mm (> 18.000) MV EF SLOPE: 75 mm/s (70 - 150) EPSS: 0.2 cm RAP: 5.00 mmHg RVSP: 29.36 mmHg FINDINGS -------- Atrial fibrillation. Pt is positive Covid. The left ventricular size is normal. There is mild concentric left ventricular hypertrophy. Overa ll left ventricular systolic function is normal with, an EF between 55 - 60 %. The right ventricle is normal in size. The left atrial size is normal. The right atrial size is normal. There is mild aortic valve sclerosis. There is no evidence of aortic regurgitation. Mild mitral annular calcification present. Mild mitral regurgitation is present. Mild tricuspid regurgitation present. Right ventricular systolic pressure is normal at < 35 mmHg. Trace/mild (physiologic) pulmonic regurgitation. The aortic root size is normal. Echo free space represents a pericardial fat pad. CONCLUSIONS -------- 1. Pt is positive Covid. 2. The left ventricular size is normal. 3. There is mild concentric left ventricular hypertrophy. 4. Overall left ventricular systolic function is normal with, an EF between 55 - 60 %. 5. The right ventricle is normal in size. 6. The left atrial size is normal. 7. The right atrial size is normal. 8. There is mild aortic valve sclerosis. 9. Mild mitral annular calcification present. 10. Mild mitral regurgitation is present. 11. Mild tricuspid regurgitation present. 12. Trace/mild (physiologic) pulmonic regurgitation. 13. The aortic root size is normal. 14. Echo free space represents a pericardial fat pad. DENTAL PATIENT COORDINATOR: Angeline Rodrigues RDCS
[2020-05-06] MEDS: ALBUTEROL HFA INHALER INHALATION PRN ×2 (11:46→21:22)
[2020-05-06] MEDS: FLUTICASONE 220 MCG INHALER INHALATION SCH ×2 (11:46→21:22)
[2020-05-06] MEDS: Salmeterol 50 mcg INHALER INHALATION SCH ×2 (11:46→21:21)
--- NOTE | 2020-05-06 13:45 | PN ---
PROGRESS NOTE A 74-year-old female with history of seizure, congestive heart failure, COPD, mild to moderate dementia, positive for COVID, admitted with respiratory distress and for positive COVID. Cardiology saw her for elevated troponin. Cardiology saw for atrial fibrillation with rapid ventricular response. CT scans of the brain were negative. White count 5.4. She has been seen by Neurology for new onset seizure also, awaiting for neurology recommendations. She is on Keppra 500 b.i.d. She was loaded with Keppra 1 gram. MRI of the brain has been ordered. We are going to attempt that. EEG is not needed per Neurology. Cardiology has been consulted for elevated troponin. Continue with COVID treatments. Cardiology also saw her for atrial fibrillation and rapid ventricular response. Their recommendations Lopressor 25 b.i.d. for atrial fibrillation and Eliquis 5 mg b.i.d. They discontinued Cardizem and heparin. They are going to review the echo. Continue treatment for COVID. LUNGS: Reveal scattered rhonchi and wheeze. HEMATOLOGY: Negative Homans. PSYCH: Fair mood and affect. Pulse rate is 78 to 102, temperature 97.9, blood pressure 101/72, oxygen is 95 on 2 L. Await for Pulmonary and Infectious Disease recommendations for COVID. Continue current treatment. Medicine changes as mentioned above. Please see further orders. MMODL / IJN: [id number] /
--- NOTE | 2020-05-06 15:11 | MR ---
EXAMINATION TYPE: MR brain wo con DATE OF EXAM: 05/06/2020 COMPARISON: CT brain 05/05/2020 HISTORY: Seizure, confusion, covid CONTRAST: Performed utilizing 0 mL intravenous Gadavist gadolinium contrast. TECHNIQUE: Multiplanar, multiecho imaging on a 3.0 Katina magnet is performed through the brain. Stud y is performed within 24 hours of arrival to the hospital. The craniovertebral junction is normal. The pituitary is normal. Diffusion-weighted imaging is performed. No abnormal hyperintensity is present to suggest an acute i ntracranial infarct or acute ischemic change. There are areas of increased signal on T2 and inversion recovery weighted sequences within the brains tem. Periventricular confluent white matter is present compatible with chronic white matter ischemic change. Ventricles and sulci are prominent for the patient age. Temporal lobes appear symmetrical IMPRESSIONS: 1. Atrophy with chronic appearing periventricular white matter ischemic type changes. 2. No acute intracranial process.
[2020-05-06] MEDS ORDERED: REMDESIVIR 200 MG in SODIUM CHLORIDE 0.9% 250 ML IVPB ONE (19:00)
[2020-05-06] MEDS: MONTELUKAST 10 MG TAB PO SCH (21:37)
[2020-05-06] MEDS: MEMANTINE 5 MG TAB PO SCH (21:37)
[2020-05-06] MEDS: levETIRAcetam 500 MG TAB PO SCH (21:37)
[2020-05-07] MEDS: methylPREDNISolone SOD SUCCI 40 MG/ML 1 ML VIAL IV SCH ×4 (00:49→23:08)
--- NOTE | 2020-05-07 02:07 | CONS ---
CONSULTATION DATE OF SERVICE: 05/06/2020 REASON FOR CONSULTATION: Pneumonia. HISTORY OF PRESENT ILLNESS: The patient is a 74 -year-old female who was brought into the ER at [facility] yesterday afternoon for evaluation of possible seizure activity at home. The patient apparently noted the patient to have stiffening of her arms and legs and seizure lasting about 15 seconds per the granddaughter. The patient also found on the floor. Unknown if the patient sustained any head injury. The patient also has previous history of tonic-clonic seizures in the past. Patient on presentation to the hospital did have a fever of 101.9 degrees Fahrenheit. The patient is currently hypoxic and is requiring 2 L on sating 94%. The patient did have an elevated CRP and mild procalcitonin. The patient did have a chest x-ray reported patchy atelectasis or consolidation. The patient did have a Covid test which came back positive that has prompted this infectious disease consultation. The patient overall is not a very good historian. When asked specifically when her symptoms started, mentioned a few days ago she had been complaining of shortness of breath and also denies having any chest pain. She did have minimal cough, not bringing up any sputum. Some nausea but no vomiting. No abdominal pain. Did have some diarrhea, overall not a good historian. REVIEW OF SYSTEMS: Positive points have been mentioned in HPI. Rest of systems are negative. PAST MEDICAL HISTORY: Asthma, COPD, dementia, hyperlipidemia, hypertension, seizure disorder. PAST SURGICAL HISTORY: Back surgery, hysterectomy, tonsillectomy, tubal ligation, EGD, colonoscopy, left hemiarthroplasty. SOCIAL HISTORY: No history of smoking, drinking or drug use. FAMILY HISTORY: Mother history of hypertension. Father history of coronary artery disease. ALLERGIES: TO LEVOTHYROXINE. MEDICATIONS: The patient is currently on Tylenol, Ventolin, Eliquis, iron sulfate, Keppra, Namenda, Solu-Medrol 40 q.8, Lopressor, Singulair, Theragran, Narcan, zinc. PHYSICAL EXAMINATION: Blood pressure 122/68 with a pulse of 85. Temperature 97.9. She is 94% on 2 L nasal cannula. General description is an elderly female lying in bed in no distress. No tachypnea or accessory muscles of respiration use. HEENT: Examination shows no pallor or scleral icterus. Oral mucous membranes dry. Neck: Trachea central. No thyromegaly. Lungs unlabored breathing, decreased intensity of breath sounds. No wheeze. HEART: S1, S2. Regular rate and rhythm. Abdomen soft. No tenderness. No guarding. No rigidity. Extremities are no edema of the feet. Skin examination: No rash or mass palpable. Neurological: Patient is awake, alert, oriented times three. Mood and affect normal. LABS: Hemoglobin is 12.1, white count 10.0. CRP is 153.9. Procalcitonin 0.57. Ley PCR is detected. D-dimer was not checked. Creatinine 1.06. Troponin mildly elevated. NT ProBNP of 4370. DIAGNOSTIC IMPRESSION AND PLAN: Patient admitted to the hospital predominantly after the patient did have a fall and seizure like activity. The patient also noted to be hypoxic, did have a fever with normal white count with evidence of interstitial infiltrate likely secondary to acute COVID-19 pneumonia. The patient symptoms also has been last few days with fever and hypoxemia. She will qualify for the Remdesivir therapy. PLAN: 1. The patient started on Remdesivir per protocol 200 mg times one followed by 100 mg daily for 4 more doses. 2. Solu-Medrol should be switched over to Dexamethasone 6 mg daily. 3. We will add ascorbic acid and zinc. 4. Droplet isolation, respiratory support. 5. We will follow on clinical condition and further adjust medication if needed. Thank you for this consultation. Will follow this patient along with you. MMODL / IJN: [id number] /
[2020-05-07 07:44] LABS: Basophils # (A) 0.1 k/uL (0-0.2); Basophils % (A) 1 %; Eosinophils % (A) 0 %; HCT 36.4 % (34.0-46.0); HGB 11.9 gm/dL (11.4-16.0); Lymphocytes # (A) 0.5 k/uL (1.0-4.8); Lymphocytes % (A) 6 %; MCH 31.7 pg (25.0-35.0); MCHC 32.7 g/dL (31.0-37.0); MCV 97.1 fL (80.0-100.0); Mean Platelet Volume 9.4; Monocytes # (A) 0.2 k/uL (0-1.0); Monocytes % (A) 2 %; Neutrophils # (A) 7.6 k/uL (1.3-7.7); Neutrophils % (A) 90 %; Platelet Count 200 k/uL (150-450); RBC 3.74 m/uL (3.80-5.40); RDW 13.5 % (11.5-15.5); WBC 8.5 k/uL (3.8-10.6)
[2020-05-07 07:50] LABS: Albumin 2.9 g/dL (3.5-5.0); Calcium 9.4 mg/dL (8.4-10.2); Total Bilirubin 0.9 mg/dL (0.2-1.3); Total Protein 5.7 g/dL (6.3-8.2)
[2020-05-07 08:02] LABS: Potassium 4.5 mmol/L (3.5-5.1)
[2020-05-07] MEDS: ALBUTEROL HFA INHALER INHALATION PRN ×4 (09:05→20:20)
[2020-05-07] MEDS: Salmeterol 50 mcg INHALER INHALATION SCH ×2 (09:06→20:20)
[2020-05-07] MEDS: FLUTICASONE 220 MCG INHALER INHALATION SCH ×2 (09:06→20:20)
[2020-05-07] MEDS: APIXABAN 5 MG TAB PO SCH ×2 (09:52→19:59)
[2020-05-07] MEDS: ASCORBIC ACID 500 MG TAB PO SCH (09:52)
[2020-05-07] MEDS: METOPROLOL TARTRATE 25 MG TAB PO SCH ×2 (09:52→19:58)
[2020-05-07] MEDS: MULTIVITAMINS, THERA 1 EACH TAB PO SCH (09:52)
[2020-05-07] MEDS: ZINC SULFATE 220 MG CAP PO SCH (09:52)
[2020-05-07] MEDS: FERROUS SULFATE 325 MG TAB PO SCH ×2 (09:52→19:58)
[2020-05-07] MEDS: levETIRAcetam 500 MG TAB PO SCH ×2 (09:52→19:58)
--- NOTE | 2020-05-07 09:52 | P.PN ---
Subjective Progress Note Date: 05/07/20 She was seen at bedside and she feels the same today compared to yesterday. Denies of any new neurological symptoms. No further seizure per staff members. MR the brain was completed on 05/06/2020 it's reported as atrophy with chronic appearing periventricular white matter ischemic type changes. No acute intracranial process. Objective - Vital Signs Vital signs: Vital Signs Temp 97.6 F 05/07/20 04:25 Pulse 65 05/07/20 04:25 Resp 20 05/07/20 04:25 BP 111/72 05/07/20 04:25 Pulse Ox 98 05/07/20 04:25 Intake & Output 05/06/20 05/07/20 05/07/20 18:59 06:59 18:59 Weight 64 kg Other: Voiding Method Bedpan Bedside Commode Diaper Diaper # Voids 2 1 # Bowel Movements 1 1 - Exam GENERAL: The patient is lying in bed and is not in acute distress. NEUROLOGICAL: Higher mental function: The patient is awake, alert, oriented to self. She stat ed she is in the hospital but could not tell me name. She said she does not know the year. Patient is able to name objects correctly such as pen and watch. Patient is following simple commands. No aphasia and no neglect. Cranial nerves: The pupils are round, equal and reactive to light. Visual shea could not assess because of patient's cooperation. Extraocular movement is intact no nystagmus is noted. Facial sensation is normal to touch throughout. The facial strength is normal throughout. Hearing is moderately decreased to hand rub bilaterally. Tongue is midline and moved [id number] without any difficulty. No dysarthria is noted. Has antigravity to shoulder shrug. Motor: Gait is deferred. The strength is moving all extremities above gravity without drift (at least 4+ throughout) but limited because of cooperation. Normal tone and bulk. Cerebellum: Normal finger to nose bilaterally. Sensation: Sensation is normal to touch throughout. Reflexes (right/left): 2+ throughout. Plantars are downgoing bilaterally. - Labs CBC & Chem 7: 05/07/20 07:02 05/07/20 07:02 Labs: Abnormal Lab Results - Last 24 Hours (Table) 05/06/20 05/07/20 05/07/20 Range/Units 01:27 07:02 07:02 RBC 3.74 L (3.80-5.40) m/uL Lymphocytes # 0.5 L (1.0-4.8) k/uL Sodium 136 L (137-145) mmol/L BUN 36 H (7-17) mg/dL Glucose 137 H (74-99) mg/dL Total Protein 5.7 L (6.3-8.2) g/dL Albumin 2.9 L (3.5-5.0) g/dL Procalcitonin 0.57 H (0.02-0.09) ng/mL Assessment and Plan Assessment: This is a 74-year-old woman with history of seizure that presented to the emergency department on 05/05/2020 for a seizure episode. Patient had stiffening of her arms and leg and the granddaughter felt like was a seizure and it lasted for 15 seconds. Provoked seizure and is not on any seizure medication (had her first seizure onset in our record was 07/06/2019). One of the triggers for break-through seizure is underlying infection (Covid 19 pneumonia). Acute Pneumonia due Covid 19 positive Documented mild to moderate dementia Elevated troponin Congestive heart failure COPD Plan: Continue Keppra 500 mg 1 tablet twice a day. MRI the brain was completed on 05/06/2020 it's reported as atrophy with chronic appearing periventricular white matter ischemic type changes. No acute intracranial process. An EEG is not needed since the patient already had an EEG in our system and will not changes management. Cardiology is consulted for the elevated troponin. We'll defer the rest of medical management to the primary team There is no further work-up from a neurological standpoint. Upon discharge, the patient needs to follow-up with a neurologist within 1-2 weeks. The plan is discussed with the patient's nurse. Suleman Chandler M.D. Neuro-hospitalist Time with Patient: Less than 30
[2020-05-07] MEDS ORDERED: DILTIAZEM DRIP BOLUS FROM BAG 1 MG SOLN IV ONE (11:11)
--- NOTE | 2020-05-07 11:16 | P.PN ---
Subjective HISTORY OF PRESENTING ILLNESS This is a pleasant 74-year-old female past medical history significant for hypertension, dyslipidemia, chronic kidney disease and dementia. 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 We have been asked to see in consultation for new onset atrial fibrillation. She is a poor historian and appears paranoid, information is obtained from the medical record and nursing staff. She was brought to the hospital with symptoms of weakness and possible seizure activity per her granddaughter. She has been diagnosed with Covid 19 on admission. She is seen and interviewed, she denies chest pain, s hortness of breath, dizziness or palpitations. She is unsure why she was brought to the hospital. 05/07/2020 Discussed the case with the nurse. Yesterday the patient converted spontaneously to sinus mechanism however just now she went back in to afib with heart rates in the 140's. Blood pressure 101/66. Laboratory reviewed, WBC 8.5, hgb 11.9, plt 200, sodium 136, potassium 4.5, creatinine 0.91, procalcitonin 0.57. PHYSICAL EXAMINATION Blood pressure 115/60 heart rate 102 afebrile and maintaining oxygen saturation on currently afebrile however temperature of 101.1F last night. CONSTITUTIONAL: No apparent distress. Thorough exam not completed secondary to Covid 19 infection to prevent the spread of infection. ASSESSMENT Covid 19 New-onset paroxysmal atrial fibrillation with rapid ventricular rate Possible seizure Febrile illness Hypertension Dyslipidemia Chronic kidney disease Dementia PLAN Resume cardizem infusion for rate control. Continue eliquis for thromboembolic protection. Check TSH. Nurse Practitioner note has been reviewed, I agree with a documented findings and plan of care. Patient was seen and examined. Objective - Vital Signs Vital signs: Vital Signs Temp 97.8 F 05/07/20 08:00 Pulse 58 L 05/07/20 08:00 Resp 18 05/07/20 08:00 BP 101/66 05/07/20 08:00 Pulse Ox 100 05/07/20 08:00 Intake & Output 05/06/20 05/07/20 05/07/20 18:59 06:59 18:59 Weight 64 kg Other: Voiding Method Bedpan Bedside Commode Bedside Commode Diaper Diaper Diaper # Voids 2 1 # Bowel Movements 1 1 - Labs CBC & Chem 7: 05/07/20 07:02 05/07/20 07:02 Labs: Abnormal Lab Results - Last 24 Hours (Table) 05/06/20 05/07/20 05/07/20 Range/Units 01:27 07:02 07:02 RBC 3.74 L (3.80-5.40) m/uL Lymphocytes # 0.5 L (1.0-4.8) k/uL Sodium 136 L (137-145) mmol/L BUN 36 H (7-17) mg/dL Glucose 137 H (74-99) mg/dL Total Protein 5.7 L (6.3-8.2) g/dL Albumin 2.9 L (3.5-5.0) g/dL Procalcitonin 0.57 H (0.02-0.09) ng/mL
[2020-05-07] MEDS: DILTIAZEM 125 MG in SODIUM CHLORIDE 0.9% 100 ML IV SCH (12:00)
[2020-05-07 13:18] LABS: T4, Free (Free Thyroxine) 1.82 ng/dL (0.78-2.19)
[2020-05-07] MEDS: MONTELUKAST 10 MG TAB PO SCH (19:58)
[2020-05-07] MEDS: MEMANTINE 5 MG TAB PO SCH (19:58)
[2020-05-07] MEDS: REMDESIVIR 100 MG in SODIUM CHLORIDE 0.9% 250 ML IVPB SCH (20:34)
--- NOTE | 2020-05-07 23:14 | PN ---
PROGRESS NOTE DATE OF SERVICE: 05/07/2020 REASON FOR FOLLOWUP: COVID-19 pneumonia. INTERVAL HISTORY: The patient is currently afebrile. Patient is breathing more comfortably. The patient did have a cough, not bringing up any sputum. No vomiting or diarrhea has been reported. PHYSICAL EXAMINATION: Her blood pressure 118/76, pulse of 72, temperature 97.9. She is 98% on room air. General description: The patient is an elderly female up in the bed in no distress. Respiratory system: Unlabored breathing, decreased intensity in breath sounds. No wheeze. Heart S1, S2. Regular rate and rhythm. Abdomen soft, no tenderness. LABS: Hemoglobin is 11.9, white count 8.5, BUN of 36, creatinine 0.91, procalcitonin 0.57. DIAGNOSTIC IMPRESSION AND PLAN: Patient with acute respiratory failure secondary to COVID-19 pneumonia in this patient currently being treated with Remdesivir, Eliquis, Solu-Medrol, zinc, to continue along with respiratory support and monitor clinical course closely. MMODL / IJN: [id number] /
[2020-05-08] MEDS: FLUTICASONE 220 MCG INHALER INHALATION SCH ×2 (08:25→20:43)
[2020-05-08] MEDS: ALBUTEROL HFA INHALER INHALATION PRN ×2 (08:25→20:44)
[2020-05-08] MEDS: Salmeterol 50 mcg INHALER INHALATION SCH ×2 (08:25→20:44)
[2020-05-08] MEDS: methylPREDNISolone SOD SUCCI 40 MG/ML 1 ML VIAL IV SCH ×3 (09:20→22:25)
[2020-05-08] MEDS: APIXABAN 5 MG TAB PO SCH ×2 (09:20→20:50)
[2020-05-08] MEDS: ASCORBIC ACID 500 MG TAB PO SCH (09:20)
[2020-05-08] MEDS: METOPROLOL TARTRATE 25 MG TAB PO SCH ×2 (09:21→20:51)
[2020-05-08] MEDS: ZINC SULFATE 220 MG CAP PO SCH (09:21)
[2020-05-08] MEDS: levETIRAcetam 500 MG TAB PO SCH ×2 (09:21→20:51)
[2020-05-08] MEDS: FERROUS SULFATE 325 MG TAB PO SCH ×2 (09:21→20:51)
[2020-05-08] MEDS: MULTIVITAMINS, THERA 1 EACH TAB PO SCH (09:21)
[2020-05-08] MEDS: DILTIAZEM 125 MG in SODIUM CHLORIDE 0.9% 100 ML IV SCH (11:03)
[2020-05-08 11:43] LABS: Basophils # (A) 0.1 k/uL (0-0.2); Basophils % (A) 0 %; Eosinophils % (A) 0 %; HCT 34.9 % (34.0-46.0); HGB 11.6 gm/dL (11.4-16.0); Lymphocytes # (A) 0.3 k/uL (1.0-4.8); Lymphocytes % (A) 2 %; MCH 31.9 pg (25.0-35.0); MCHC 33.3 g/dL (31.0-37.0); MCV 95.7 fL (80.0-100.0); Mean Platelet Volume 8.7; Monocytes # (A) 0.2 k/uL (0-1.0); Monocytes % (A) 2 %; Neutrophils # (A) 13.4 k/uL (1.3-7.7); Neutrophils % (A) 94 %; Platelet Count 265 k/uL (150-450); RBC 3.65 m/uL (3.80-5.40); RDW 13.2 % (11.5-15.5); WBC 14.3 k/uL (3.8-10.6)
--- NOTE | 2020-05-08 14:29 | P.PN ---
Subjective Progress Note Date: 05/08/20 HISTORY OF PRESENT ILLNESS: This is a pleasant 74-year-old female past medical history significant for hypertension, dyslipidemia, chronic kidney disease and dementia. 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 We have been asked to see in consultation for new onset atrial fibrillation. She is a poor historian and appears paranoid, information is obtained from the medical record and nursing staff. She was brought to the hospital with symptoms of weakness and possible seizure activity per her granddaughter. She has been diagnosed with C ovid 19 on admission. She is seen and interviewed, she denies chest pain, shortness of breath, dizziness or palpitations. She is unsure why she was brought to the hospital. 05/07/2020 Discussed the case with the nurse. Yesterday the patient converted spontaneously to sinus mechanism however just now she went back in to afib with heart rates in the 140's. Blood pressure 101/66. Laboratory reviewed, WBC 8.5, hgb 11.9, plt 200, sodium 136, potassium 4.5, creatinine 0.91, procalcitonin 0.57. 05/08/2020 telemetry reveals sinus arrhythmia. blood pressure 115/70. Heart rate in the 70s per she is afebrile. She is on room air with oxygen saturations greater than 92%. She remains on Eliquis for anticoagulation. echocardiogram reveals ejection fraction 55-60%, mild mitral regurgitation, and mild tricuspid regurgitation. PHYSICAL EXAM: Thorough physical exam not completed secondary to limited evaluation/examination and due to Covid19 ASSESSMENT: Covid 19 New-onset paroxysmal atrial fibrillation with rapid ventricular rate Possible seizure Febrile illness Hypertension Dyslipidemia Chronic kidney disease Dementia PLAN: continue current cardiac medications Continue telemetry monitoring Continue anticoagulation with Eliquis further recommendations pending patient's course Nurse practitioner note has been reviewed by physician. Signing provider agrees with the documented findings, assessment, and plan of care. Objective - Vital Signs Vital signs: Vital Signs Temp 97.9 F 05/08/20 12:00 Pulse 67 05/08/20 12:00 Resp 16 05/08/20 08:00 BP 112/72 05/08/20 12:00 Pulse Ox 96 05/08/20 08:00 Intake & Output 05/07/20 05/08/20 05/08/20 18:59 06:59 18:59 Intake Total 240 900 Balance 240 900 Weight 69.5 kg Intake: Intake, IV Titration 250 Amount Remdesivir 100 mg In 250 Sodium Chloride 0.9% 250 ml @ 250 mls/hr IVPB DAILY@1900 [facility] Rx#: [id number] Oral 240 650 Other: Voiding Method Bedside Commode Bedside Commode Bedside Commode Diaper Diaper Diaper # Voids 1 - Labs CBC & Chem 7: 05/08/20 10:28 05/07/20 07:02 Labs: Abnormal Lab Results - Last 24 Hours (Table) 05/08/20 Range/Units 10:28 WBC 14.3 H (3.8-10.6) k/uL RBC 3.65 L (3.80-5.40) m/uL Neutrophils # 13.4 H (1.3-7.7) k/uL Lymphocytes # 0.3 L (1.0-4.8) k/uL
--- NOTE | 2020-05-08 16:21 | PN ---
PROGRESS NOTE DATE OF SERVICE: 05/08/2020 REASON FOR FOLLOWUP: COVID-19 pneumonia. INTERVAL HISTORY: Patient is currently afebrile. The patient is breathing comfortably, currently on room air. Denies any chest pain, shortness of breath. Occasional cough. No abdominal pain or diarrhea. PHYSICAL EXAMINATION: Blood pressure 112/72 with a pulse of 67. Temperature 97.9. She is 96% on room air. General description is an elderly female lying in bed in no distress. Respiratory system: Unlabored breathing, decreased intensity in breath sounds. No wheeze. Heart S1, S2. Regular rate and rhythm. Abdomen soft, no tenderness. LABS: Hemoglobin 11.5, white count 14.3. DIAGNOSTIC IMPRESSION AND PLAN: Patient with acute COVID-19 pneumonia. Patient seemed to show overall clinical improvement. Currently on Remdesivir, Eliquis, Solu-Medrol, zinc, ascorbic acid, to continue along with respiratory support and monitor clinical course closely. MMODL / IJN: [id number] /
--- NOTE | 2020-05-08 18:42 | PN ---
PROGRESS NOTE 74-year-old female. Blood pressure 115/70, heart rates in the 70s, afebrile. Oxygen levels are greater than 92. She is on anti coagulation. Echo was good ejection fraction. She has been treated for atrial fibrillation, rapid ventricular response. She is more alert today, giving appropriate answers Cardiovascular S1, S2. Lungs clear. GI soft. ASSESSMENT: 1. New paroxysmal atrial fibrillation rapid ventricular response. 2. Possible seizure. 3. Covid 19. 4. Febrile illness secondary to Covid 19. 5. Hypertension. 6. Chronic kidney disease. 7. Dyslipidemia. 8. Dementia. Continue current cardiac medications. Telemetry monitoring. Continue with Eliquis. PROGNOSIS: Guarded. Await for Cardiology to clear her to go home as well as Dr. Marks. Dr. Marks also saw the patient, who he recommends a Solu-Medrol, zinc, ascorbic acid, currently on Remdesivir, Eliquis. Await for day five on Remdesivir and then possible send home. MMODL / IJN: [id number] /
[2020-05-08] MEDS: AZITHROMYCIN 500 MG in SODIUM CHLORIDE 0.9% 250 ML IVPB SCH (20:35)
[2020-05-08] MEDS: MONTELUKAST 10 MG TAB PO SCH (20:51)
[2020-05-08] MEDS: MEMANTINE 5 MG TAB PO SCH (20:51)
[2020-05-08] MEDS: REMDESIVIR 100 MG in SODIUM CHLORIDE 0.9% 250 ML IVPB SCH (22:25)
[2020-05-09] MEDS: FLUTICASONE 220 MCG INHALER INHALATION SCH ×2 (07:15→21:43)
[2020-05-09] MEDS: ALBUTEROL HFA INHALER INHALATION PRN ×2 (07:15→16:24)
[2020-05-09] MEDS: Salmeterol 50 mcg INHALER INHALATION SCH ×2 (07:15→21:43)
[2020-05-09 09:56] LABS: Basophils % (A) 0 %; Eosinophils % (A) 0 %; HCT 34.5 % (34.0-46.0); HGB 11.6 gm/dL (11.4-16.0); Lymphocytes # (A) 0.5 k/uL (1.0-4.8); Lymphocytes % (A) 4 %; MCH 32.4 pg (25.0-35.0); MCHC 33.6 g/dL (31.0-37.0); MCV 96.4 fL (80.0-100.0); Mean Platelet Volume 9.9; Monocytes # (A) 0.3 k/uL (0-1.0); Monocytes % (A) 2 %; Neutrophils # (A) 11.3 k/uL (1.3-7.7); Neutrophils % (A) 92 %; Platelet Count 236 k/uL (150-450); RBC 3.58 m/uL (3.80-5.40); RDW 13.4 % (11.5-15.5); WBC 12.3 k/uL (3.8-10.6)
[2020-05-09] MEDS: methylPREDNISolone SOD SUCCI 40 MG/ML 1 ML VIAL IV SCH ×3 (10:08→23:30)
[2020-05-09] MEDS: ASCORBIC ACID 500 MG TAB PO SCH (10:08)
[2020-05-09] MEDS: APIXABAN 5 MG TAB PO SCH ×2 (10:08→22:04)
[2020-05-09] MEDS: FERROUS SULFATE 325 MG TAB PO SCH ×2 (10:08→22:04)
[2020-05-09] MEDS: MULTIVITAMINS, THERA 1 EACH TAB PO SCH (10:09)
[2020-05-09] MEDS: levETIRAcetam 500 MG TAB PO SCH ×2 (10:09→22:03)
[2020-05-09] MEDS: ZINC SULFATE 220 MG CAP PO SCH (10:09)
[2020-05-09] MEDS: METOPROLOL TARTRATE 25 MG TAB PO SCH (10:09)
[2020-05-09 11:00] LABS: Calcium 10.6 mg/dL (8.4-10.2); Potassium 3.7 mmol/L (3.5-5.1); Total Bilirubin 0.8 mg/dL (0.2-1.3); Total Protein 5.7 g/dL (6.3-8.2)
[2020-05-09] MEDS ORDERED: DILTIAZEM DRIP BOLUS FROM BAG 1 MG SOLN IV ONE (11:02)
[2020-05-09] MEDS: DILTIAZEM 125 MG in SODIUM CHLORIDE 0.9% 100 ML IV SCH (11:33)
--- NOTE | 2020-05-09 13:01 | P.PN ---
Subjective Progress Note Date: 05/09/20 HISTORY OF PRESENT ILLNESS: This is a pleasant 74-year-old female past medical history significant for hypertension, dyslipidemia, chronic kidney disease and dementia. 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 We have been asked to see in consultation for new onset atrial fibrillation. She is a poor historian and appears paranoid, information is obtained from the medical record and nursing staff. She was brought to the hospital with symptoms of weakness and possible seizure activity per her granddaughter. She has been diagnosed with C ovid 19 on admission. She is seen and interviewed, she denies chest pain, shortness of breath, dizziness or palpitations. She is unsure why she was brought to the hospital. 05/07/2020 Discussed the case with the nurse. Yesterday the patient converted spontaneously to sinus mechanism however just now she went back in to afib with heart rates in the 140's. Blood pressure 101/66. Laboratory reviewed, WBC 8.5, hgb 11.9, plt 200, sodium 136, potassium 4.5, creatinine 0.91, procalcitonin 0.57. 05/08/2020 telemetry reveals sinus arrhythmia. blood pressure 115/70. Heart rate in the 70s per she is afebrile. She is on room air with oxygen saturations greater than 92%. She remains on Eliquis for anticoagulation. echocardiogram reveals ejection fraction 55-60%, mild mitral regurgitation, and mild tricuspid regurgitation. 05/09/2020 Patient was maintaining sinus mechanism on telemetry this morning. However patient has went back into A. fib with RVR. She is currently receiving metoprol ol 25 mg twice a day. Blood pressure 113/77. PHYSICAL EXAM: Thorough physical exam not completed secondary to limited evaluation/examination and due to Covid19 ASSESSMENT: Covid 19 New-onset paroxysmal atrial fibrillation with rapid ventricular rate Possible seizure Febrile illness Hypertension Dyslipidemia Chronic kidney disease Dementia PLAN: Continue telemetry monitoring Continue anticoagulation with Eliquis Increase metoprolol to 50 mg twice a day Give Cardizem bolus of 5 mg IV Begin Cardizem drip at 5 mg an hour further recommendations pending patient's course Nurse practitioner note has been reviewed by physician. Signing provider agrees with the documented findings, assessment, and plan of care. Objective - Vital Signs Vital signs: Vital Signs Temp 97.6 F 05/09/20 08:00 Pulse 85 04/02/21 08:00 Resp 16 05/09/20 08:00 BP 113/77 05/09/20 08:00 Pulse Ox 96 05/09/20 08:00 Intake & Output 05/08/20 05/09/20 05/09/20 18:59 06:59 18:59 Intake Total 480 100 Balance 480 100 Weight 66 kg Intake: Oral 480 100 Other: Voiding Method Bedside Commode Bedside Commode Bedside Commode Diaper Diaper Diaper # Voids 3 1 1 # Bowel Movements 1 1 - Labs CBC & Chem 7: 05/09/20 08:43 05/09/20 10:12 Labs: Abnormal Lab Results - Last 24 Hours (Table) 05/09/20 05/09/20 Range/Units 08:43 10:12 WBC 12.3 H (3.8-10.6) k/uL RBC 3.58 L (3.80-5.40) m/uL Neutrophils # 11.3 H (1.3-7.7) k/uL Lymphocytes # 0.5 L (1.0-4.8) k/uL Sodium 136 L (137-145) mmol/L Chloride 108 H (98-107) mmol/L BUN 34 H (7-17) mg/dL Glucose 121 H (74-99) mg/dL Calcium 10.6 H (8.4-10.2) mg/dL Total Protein 5.7 L (6.3-8.2) g/dL Albumin 3.0 L (3.5-5.0) g/dL
--- NOTE | 2020-05-09 17:58 | PN ---
PROGRESS NOTE DATE OF SERVICE: 05/09/2020 REASON FOR FOLLOWUP: COVID-19 pneumonia. INTERVAL HISTORY: The patient is currently afebrile. The patient is breathing comfortably, currently on room air. The patient denies having any chest pain or shortness of breath. Occasional cough. No abdominal pain or diarrhea. PHYSICAL EXAMINATION: Blood pressure 111/64, pulse of 89, temperature 98.1. She is 95% on room air. General description is an elderly female up in the bed in no distress. RESPIRATORY SYSTEM: Unlabored breathing with decreased intensity of breath sounds. No wheeze. HEART: S1, S2. Regular rate and rhythm. ABDOMEN: Soft. No tenderness. LABS: Hemoglobin is 11.6, white count 12.3, BUN of 34, creatinine 0.87. DIAGNOSTIC IMPRESSION AND PLAN: Patient with acute COVID-19 infection in this patient who seems to have shown overall clinical improvement on remdesivir, zinc, Solu-Medrol, ascorbic acid; to continue while monitoring course closely. Continue supportive care. MMODL / IJN: [id number] /
[2020-05-09] MEDS: REMDESIVIR 100 MG in SODIUM CHLORIDE 0.9% 250 ML IVPB SCH (21:37)
[2020-05-09] MEDS: MEMANTINE 5 MG TAB PO SCH (22:03)
[2020-05-09] MEDS: MONTELUKAST 10 MG TAB PO SCH (22:04)
[2020-05-09] MEDS: METOPROLOL TARTRATE 50 MG TAB PO SCH (22:04)
[2020-05-09] MEDS: AZITHROMYCIN 500 MG in SODIUM CHLORIDE 0.9% 250 ML IVPB SCH (23:30)
[2020-05-10 00:19] LABS: Hepatitis B Surface AB- Quant 4.6 mIU/mL; Hepatitis B Surface Antibody Non-Reactive (Non-Reactive); Hepatitis B Surface Antigen Non-Reactive (Non-Reactive)
[2020-05-10] MEDS: APIXABAN 5 MG TAB PO SCH ×2 (07:55→21:58)
[2020-05-10] MEDS: methylPREDNISolone SOD SUCCI 40 MG/ML 1 ML VIAL IV SCH ×2 (07:55→17:27)
[2020-05-10] MEDS: FERROUS SULFATE 325 MG TAB PO SCH ×2 (07:55→21:59)
[2020-05-10] MEDS: levETIRAcetam 500 MG TAB PO SCH ×2 (07:55→21:59)
[2020-05-10] MEDS: METOPROLOL TARTRATE 50 MG TAB PO SCH ×2 (07:55→21:59)
[2020-05-10] MEDS: ASCORBIC ACID 500 MG TAB PO SCH (07:55)
[2020-05-10] MEDS: ZINC SULFATE 220 MG CAP PO SCH (07:55)
[2020-05-10] MEDS: MULTIVITAMINS, THERA 1 EACH TAB PO SCH (07:55)
[2020-05-10] MEDS: DILTIAZEM 125 MG in SODIUM CHLORIDE 0.9% 100 ML IV SCH (07:56)
[2020-05-10] MEDS: ALBUTEROL HFA INHALER INHALATION PRN ×2 (08:36→12:00)
[2020-05-10] MEDS: FLUTICASONE 220 MCG INHALER INHALATION SCH ×2 (08:36→20:00)
[2020-05-10] MEDS: Salmeterol 50 mcg INHALER INHALATION SCH ×2 (08:36→20:01)
--- NOTE | 2020-05-10 13:16 | P.PN ---
Subjective Progress Note Date: 05/10/20 HISTORY OF PRESENT ILLNESS: This is a pleasant 74-year-old female past medical history significant for hypertension, dyslipidemia, chronic kidney disease and dementia. 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 We have been asked to see in consultation for new onset atrial fibrillation. She is a poor historian and appears paranoid, information is obtained from the medical record and nursing staff. She was brought to the hospital with symptoms of weakness and possible seizure activity per her granddaughter. She has been diagnosed with C ovid 19 on admission. She is seen and interviewed, she denies chest pain, shortness of breath, dizziness or palpitations. She is unsure why she was brought to the hospital. 05/07/2020 Discussed the case with the nurse. Yesterday the patient converted spontaneously to sinus mechanism however just now she went back in to afib with heart rates in the 140's. Blood pressure 101/66. Laboratory reviewed, WBC 8.5, hgb 11.9, plt 200, sodium 136, potassium 4.5, creatinine 0.91, procalcitonin 0.57. 05/08/2020 telemetry reveals sinus arrhythmia. blood pressure 115/70. Heart rate in the 70s per she is afebrile. She is on room air with oxygen saturations greater than 92%. She remains on Eliquis for anticoagulation. echocardiogram reveals ejection fraction 55-60%, mild mitral regurgitation, and mild tricuspid regurgitation. 05/09/2020 Patient was maintaining sinus mechanism on telemetry this morning. However patient has went back into A. fib with RVR. She is currently receiving metoprol ol 25 mg twice a day. Blood pressure 113/77. 05/10/2020 Patient remains in atrial fibrillation with controlled ventricular rates. Heart rate currently in the 80s. Metoprolol was increased yesterday to 50mg twice a day. She remains on a Cardizem drip at 5 mg an hour. Blood pressure 126/79. PHYSICAL EXAM: Thorough physical exam not completed secondary to limited evaluation/examination and due to Covid19 ASSESSMENT: Covid 19 New-onset paroxysmal atrial fibrillation with rapid ventricular rate Possible seizure Febrile illness Hypertension Dyslipidemia Chronic kidney disease Dementia PLAN: Continue telemetry monitoring Continue anticoagulation with Eliquis Continue current dose of metoprolol Discontinue Cardizem drip further recommendations pending patient's course Nurse practitioner note has been reviewed by physician. Signing provider agrees with the documented findings, assessment, and plan of care. Objective - Vital Signs Vital signs: Vital Signs Temp 97.7 F 05/10/20 12:00 Pulse 76 05/10/20 12:00 Resp 16 05/10/20 12:00 BP 126/79 05/10/20 12:00 Pulse Ox 98 05/10/20 12:00 Intake & Output 05/09/20 05/10/20 05/10/20 18:59 06:59 18:59 Intake Total 340 271.917 Output Total 0 Balance 340 271.917 Weight 63 kg Intake: Intake, IV Titration 101.917 Amount Diltiazem 125 mg In 101.917 Sodium Chloride 0.9% 100 ml @ 5 MG/HR 5 mls/hr IV .Q24H [facility] Rx#:[id number] Oral 340 170 Output: Urine 0 Stool 0 Other: Voiding Method Bedside Commode Bedside Commode Diaper Diaper # Voids 0 1 # Bowel Movements 0 - Labs CBC & Chem 7: 05/09/20 08:43 05/09/20 10:12
--- NOTE | 2020-05-10 13:52 | PN ---
PROGRESS NOTE 74-year-old -[place] female with positive COVID, atrial fibrillation with rapid ventricular response. Blood pressure is 110s to 160s, pulse is 80s, temp 98, 95 on room air. Unlabored breathing. CARDIOVASCULAR: S1, S2. LUNGS: Clear. GI: Soft. Labs reviewed. ASSESSMENT: 1. COVID-19. 2. Atrial fibrillation with rapid ventricular response. 3. Acute asthma exacerbation. Continue current treatment. Await for Cardiology recommendations. Finish her Remdesivir. Possible discharge home in the next few days. Wean her off oxygen if tolerated. MMODL / IJN: [id number] /
[2020-05-10] MEDS: REMDESIVIR 100 MG in SODIUM CHLORIDE 0.9% 250 ML IVPB SCH (18:07)
[2020-05-10] MEDS: AZITHROMYCIN 500 MG in SODIUM CHLORIDE 0.9% 250 ML IVPB SCH (18:07)
--- NOTE | 2020-05-10 19:33 | PN ---
PROGRESS NOTE DATE OF SERVICE: 05/10/2020 REASON FOR FOLLOWUP: COVID-19 pneumonia. INTERVAL HISTORY: Patient is currently afebrile. The patient is feeling better. Breathing comfortably. Occasional cough. No sputum. No nausea, vomiting, abdominal pain or diarrhea. PHYSICAL EXAMINATION: Blood pressure 115/82 with a pulse of 94, temperature 98.2. She is 96% on room air. General description is an elderly female up in the bed in no distress. Respiratory system: Unlabored breathing, decreased intensity of breath sounds. No wheeze. Heart S1, S2. Regular rate and rhythm. Abdomen soft, no tenderness. LABS: BUN of 24, creatinine 0.87. DIAGNOSTIC IMPRESSION AND PLAN: Patient with acute COVID-19 pneumonia, overall improvement. Patient is currently covered with Eliquis, Solu-Medrol, can be transitioned to prednisone, Remdesivir, zinc and ascorbic acid, and continue supportive care. MMODL / IJN: [id number] /
[2020-05-10] MEDS: MONTELUKAST 10 MG TAB PO SCH (21:58)
[2020-05-10] MEDS: MEMANTINE 5 MG TAB PO SCH (21:59)
[2020-05-11] MEDS: methylPREDNISolone SOD SUCCI 40 MG/ML 1 ML VIAL IV SCH ×3 (00:40→17:47)
[2020-05-11] MEDS: ALBUTEROL HFA INHALER INHALATION PRN (08:41)
[2020-05-11] MEDS: FLUTICASONE 220 MCG INHALER INHALATION SCH ×2 (08:41→20:06)
[2020-05-11] MEDS: Salmeterol 50 mcg INHALER INHALATION SCH ×2 (08:41→20:06)
[2020-05-11] MEDS: ZINC SULFATE 220 MG CAP PO SCH (09:26)
[2020-05-11] MEDS: MULTIVITAMINS, THERA 1 EACH TAB PO SCH (09:26)
[2020-05-11] MEDS: levETIRAcetam 500 MG TAB PO SCH ×2 (09:27→21:22)
[2020-05-11] MEDS: FERROUS SULFATE 325 MG TAB PO SCH ×2 (09:27→21:22)
[2020-05-11] MEDS: METOPROLOL TARTRATE 50 MG TAB PO SCH ×2 (09:27→21:22)
[2020-05-11] MEDS: APIXABAN 5 MG TAB PO SCH ×2 (09:27→21:23)
[2020-05-11] MEDS: ASCORBIC ACID 500 MG TAB PO SCH (09:27)
--- NOTE | 2020-05-11 12:12 | P.PN ---
Subjective Progress Note Date: 05/11/20 HISTORY OF PRESENT ILLNESS: This is a pleasant 74-year-old female past medical history significant for hypertension, dyslipidemia, chronic kidney disease and dementia. 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 We have been asked to see in consultation for new onset atrial fibrillation. She is a poor historian and appears paranoid, information is obtained from the medical record and nursing staff. She was brought to the hospital with symptoms of weakness and possible seizure activity per her granddaughter. She has been diagnosed with C ovid 19 on admission. She is seen and interviewed, she denies chest pain, shortness of breath, dizziness or palpitations. She is unsure why she was brought to the hospital. 05/07/2020 Discussed the case with the nurse. Yesterday the patient converted spontaneously to sinus mechanism however just now she went back in to afib with heart rates in the 140's. Blood pressure 101/66. Laboratory reviewed, WBC 8.5, hgb 11.9, plt 200, sodium 136, potassium 4.5, creatinine 0.91, procalcitonin 0.57. 05/08/2020 telemetry reveals sinus arrhythmia. blood pressure 115/70. Heart rate in the 70s per she is afebrile. She is on room air with oxygen saturations greater than 92%. She remains on Eliquis for anticoagulation. echocardiogram reveals ejection fraction 55-60%, mild mitral regurgitation, and mild tricuspid regurgitation. 05/09/2020 Patient was maintaining sinus mechanism on telemetry this morning. However patient has went back into A. fib with RVR. She is currently receiving metoprol ol 25 mg twice a day. Blood pressure 113/77. 05/10/2020 Patient remains in atrial fibrillation with controlled ventricular rates. Heart rate currently in the 80s. Metoprolol was increased yesterday to 50mg twice a day. She remains on a Cardizem drip at 5 mg an hour. Blood pressure 126/79. 05/11/2020 Telemetry reveals sinus arrhythmia. Patient's Cardizem drip remains off. Blood pressure 141/83. Heart rate in the 70s. she is afebrile. PHYSICAL EXAM: Thorough physical exam not completed secondary to limited evaluation/examination and due to Covid19 ASSESSMENT: Covid 19 New-onset paroxysmal atrial fibrillation with rapid ventricular rate Possible seizure Febrile illness Hypertension Dyslipidemia Chronic kidney disease Dementia PLAN: Continue telemetry monitoring Continue anticoagulation with Eliquis Continue current dose of metoprolol We will sign off. Please reconsult if needed. Nurse practitioner note has been reviewed by physician. Signing provider agrees with the documented findings, assessment, and plan of care. Objective - Vital Signs Vital signs: Vital Signs Temp 98 F 05/11/20 08:00 Pulse 70 05/11/20 08:00 Resp 18 05/11/20 08:00 BP 141/83 05/11/20 08:00 Pulse Ox 97 05/11/20 08:00 Intake & Output 05/10/20 05/11/20 05/11/20 18:59 06:59 18:59 Intake Total 297.250 Balance 297.250 Weight 61.5 kg Intake: Intake, IV Titration 127.250 Amount Diltiazem 125 mg In 127.250 Sodium Chloride 0.9% 100 ml @ 5 MG/HR 5 mls/hr IV .Q24H [facility] Rx#:[id number] Oral 170 Other: Voiding Method Bedside Commode Diaper # Voids 1 2 - Labs CBC & Chem 7: 05/09/20 08:43 05/09/20 10:12
[2020-05-11] MEDS: AZITHROMYCIN 500 MG in SODIUM CHLORIDE 0.9% 250 ML IVPB SCH (18:24)
--- NOTE | 2020-05-11 19:14 | PN ---
PROGRESS NOTE DATE OF SERVICE: 05/11/2020 REASON FOR FOLLOWUP: COVID-19 pneumonia. INTERVAL HISTORY: The patient is currently afebrile. The patient is feeling better. Breathing comfortably. Currently on room air. Denies any chest pain or shortness of breath. Occasional cough. No abdominal pain or diarrhea. PHYSICAL EXAMINATION: Blood pressure 139/70 with a pulse of 59, temperature 98.2. She is 96% on room air. General description is an elderly female up in the bed in no distress. Respiratory system: Unlabored breathing, decreased breath sounds in the base, with no wheeze. Heart S1, S2. Regular rate and rhythm. Abdomen soft, no tenderness. LABS: BUN of 24, creatinine 0.87. DIAGNOSTIC IMPRESSION: Patient with acute COVID-19 pneumonia. This patient has shown clinical improvement. She has completed her Remdesivir therapy. Currently on Solu-Medrol, can be switched to prednisone; zinc and ascorbic acid and monitor clinical course closely. MMODL / IJN: [id number] /
[2020-05-11] MEDS: MEMANTINE 5 MG TAB PO SCH (21:22)
[2020-05-11] MEDS: MONTELUKAST 10 MG TAB PO SCH (21:22)
[2020-05-12 05:28] VITALS: RESP 18
--- NOTE | 2020-05-12 07:04 | PN ---
PROGRESS NOTE Elderly female with COVID pneumonia, COVID-19, cough, congestion, shortness of breath, asthma exacerbation, atrial fibrillation, rapid ventricular response. On oral medications at this point. Lungs show scattered wheeze and rhonchi, congestive cough. Cardiovascular S1-S2. Hematology negative Homans'. Psych fair mood and affect. ASSESSMENT: 1. Atrial fibrillation with rapid ventricular response. 2. COVID-19. 3. Asthma exacerbation. 4. Acute hypoxemic respiratory distress. Continue current treatments, IV dexamethasone, zinc, oral rate control for atrial fibrillation, rapid ventricular response, blood thinning medication, anticoagulants. Please see further orders. MMODL / IJN: [id number] /
[2020-05-12] MEDS ORDERED: dexAMETHasone 2 MG TAB PO SCH (09:00)
[2020-05-12] MEDS: Salmeterol 50 mcg INHALER INHALATION SCH (09:18)
[2020-05-12] MEDS: ALBUTEROL HFA INHALER INHALATION PRN (09:18)
[2020-05-12] MEDS: FLUTICASONE 220 MCG INHALER INHALATION SCH (09:18)
[2020-05-12] MEDS: MULTIVITAMINS, THERA 1 EACH TAB PO SCH (09:34)
[2020-05-12] MEDS: METOPROLOL TARTRATE 50 MG TAB PO SCH (09:35)
[2020-05-12] MEDS: ASCORBIC ACID 500 MG TAB PO SCH (09:35)
[2020-05-12] MEDS: ZINC SULFATE 220 MG CAP PO SCH (09:35)
[2020-05-12] MEDS: FERROUS SULFATE 325 MG TAB PO SCH (09:35)
[2020-05-12] MEDS: levETIRAcetam 500 MG TAB PO SCH (09:35)
[2020-05-12] MEDS: APIXABAN 5 MG TAB PO SCH (09:35)
[2020-05-12 11:25] VITALS: TEMP 97.8
--- NOTE | 2020-05-12 11:39 | P.CNPUL ---
History of Present Illness Consult date: 05/12/20 Reason for consult: dyspnea, hypoxemia, pneumonia Chief complaint: Shortness of breath History of present illness: This is a 74-year-old female came into the hospital with shortness of breath cough and cold with positive testing, patient is now on IV steroids finished IV REM doesn't with therapy feeling much better, on room air Review of Systems All systems: negative Past Medical History Past Medical History: Asthma, COPD, Dementia, Hyperlipidemia, Hypertension, Memory Impairment, Renal Disease, Seizure Disorder, Vascular Disorder Additional Past Medical History / Comment(s): Short term memory loss, aortic a neurysm, irregular heart beat in the past-pt/jeison cannot recall type, seizure once- 06/2019, UTI/cystitis, nephrolithiasis, recently told she may have "kidney function" problem, falls, L hand currently swollen-pt/jeison do not know cause. History of Any Multi-Drug Resistant Organisms: None Reported Past Surgical History: Back Surgery, Hysterectomy, Orthopedic Surgery, Tonsillectomy, Tubal Ligation Additional Past Surgical History / Comment(s): D&C, EGD, colonoscopy, L hip hemiarthroplasty d/t fracure, R shoulder surgery d/t fracture-has hardware Past Anesthesia/Blood Transfusion Reactions: No Reported Reaction, Motion Sickness Past Psychological History: Anxiety Additional Psychological History / Comment(s): Pt resides with her jeison, Analisa. She uses a cane or walker to ambulate. Her jeison is her caregiver, she assists pt with bathing/dressin and manages her medications and also drives her to [employer]. Smoking Status: Never smoker Past Alcohol Use History: None Reported Past Drug Use History: None Reported - Past Family History Mother Family Medical History: Hypertension Father Family Medical History: Coronary Artery Disease (CAD), Myocardial Infarction (CA) Additional Family Medical History / Comment(s): Father of a CA in his 70s. Medications and Allergies Home Medications Medication Instructions Recorded Confirmed Type Ferrous Sulfate [Iron (65 MG 325 mg PO BID 04/27/18 05/05/20 History Elemental)] Potassium Chloride 10 meq PO DAILY 07/05/19 05/05/20 History Metoprolol Tartrate [Lopressor] 12.5 mg PO BID 10/01/19 05/05/20 History Montelukast Sodium [Singulair] 10 mg PO HS 10/01/19 05/05/20 History Albuterol Sulfate [Ventolin HFA] 2 puff INHALATION RT-Q6H PRN 05/05/20 05/05/20 History Furosemide [Lasix] 20 mg PO DAILY PRN 05/05/20 05/05/20 History Memantine [Namenda] 5 mg PO HS 05/05/20 05/05/20 History Multivitamins, Thera [Multivitamin 1 tab PO DAILY 05/05/20 05/05/20 History (formulary)] predniSONE 10 mg PO DAILY 05/05/20 05/05/20 History Apixaban [Eliquis] 5 mg PO BID #60 tab 05/06/20 Rx Allergies Allergy/AdvReac Type Severity Reaction Status Date / Time levofloxacin Allergy Swelling Verified 05/05/20 15:42 Physical Exam Vitals: Vital Signs Temp Pulse Resp BP Pulse Ox 05/12/20 08:00 97.8 F 58 L 137/89 100 05/12/20 03:55 98.1 F 60 18 155/86 98 05/11/20 23:55 98.3 F 70 17 132/88 98 05/11/20 20:05 97.9 F 68 18 126/84 98 05/11/20 17:00 98.2 F 59 L 18 139/78 96 05/11/20 12:00 97.6 F 97 20 144/89 98 Intake and Output 05/11/20 05/12/20 05/12/20 22:59 06:59 14:59 Intake Total 0 Output Total 100 Balance -100 Intake: Oral 0 Output: Urine 100 Other: Voiding Method Bedside Commode Bedside Commode Bedside Commode Diaper Diaper Diaper # Voids 1 Weight 59.5 kg - Constitutional General appearance: cooperative, disheveled, no acute distress - EENT Eyes: PERRLA Ears: bilateral: normal - Neck Carotids: bilateral: upstroke normal Thyroid: bilateral: normal size - Respiratory Respiratory: bilateral: CTA - Cardiovascular Rhythm: regular Heart sounds: normal: S1, S2 - Integumentary Integumentary: normal turgor - Neurologic Neurologic: CNII-XII intact - Musculoskeletal Musculoskeletal: gait normal, generalized weakness, strength equal bilaterally - Psychiatric Psychiatric: A&O x's 3, appropriate affect, intact judgment & insight Results - Laboratory Findings CBC and BMP: 05/09/20 08:43 05/09/20 10:12 PT/INR, D-dimer PT 10.2 sec (9.0-12.0) 05/05/20 19:05 INR 0.9 (<1.2) 05/05/20 19:05 Abnormal lab findings: Abnormal Labs 05/05/20 05/05/20 05/05/20 14:30 15:13 15:13 WBC RBC Neutrophils # Lymphocytes # APTT Sodium 135 L Chloride BUN 31 H Creatinine 1.06 H Glucose Calcium Total Bilirubin 1.8 H AST 51 H Troponin I 0.054 H* C-Reactive Protein Total Protein Albumin Procalcitonin TSH Urine Protein 2+ H Urine Bacteria Rare H Urine Mucus Few H Coronavirus (PCR) 05/05/20 05/05/20 05/06/20 15:18 22:31 01:20 WBC RBC Neutrophils # 8.6 H Lymphocytes # APTT 58.6 H Sodium Chloride BUN Creatinine Glucose Calcium Total Bilirubin AST Troponin I C-Reactive Protein Total Protein Albumin Procalcitonin TSH Urine Protein Urine Bacteria Urine Mucus Coronavirus (PCR) Detected A 05/06/20 05/06/20 05/06/20 01:20 01:20 01:27 WBC RBC Neutrophils # Lymphocytes # APTT 53.9 H Sodium Chloride BUN Creatinine Glucose Calcium Total Bilirubin AST Troponin I C-Reactive Protein 153.9 H Total Protein Albumin Procalcitonin 0.57 H TSH Urine Protein Urine Bacteria Urine Mucus Coronavirus (PCR) 05/07/20 05/07/20 05/07/20 07:02 07:02 07:02 WBC RBC 3.74 L Neutrophils # Lymphocytes # 0.5 L APTT Sodium 136 L Chloride BUN 36 H Creatinine Glucose 137 H Calcium Total Bilirubin AST Troponin I C-Reactive Protein Total Protein 5.7 L Albumin 2.9 L Procalcitonin TSH 0.229 L Urine Protein Urine Bacteria Urine Mucus Coronavirus (PCR) 05/08/20 05/09/20 05/09/20 10:28 08:43 10:12 WBC 14.3 H 12.3 H RBC 3.65 L 3.58 L Neutrophils # 13.4 H 11.3 H Lymphocytes # 0.3 L 0.5 L APTT Sodium 136 L Chloride 108 H BUN 34 H Creatinine Glucose 121 H Calcium 10.6 H Total Bilirubin AST Troponin I C-Reactive Protein Total Protein 5.7 L Albumin 3.0 L Procalcitonin TSH Urine Protein Urine Bacteria Urine Mucus Coronavirus (PCR) - Diagnostic Findings Chest x-ray: report reviewed, image reviewed (Finding as noted above) Assessment and Plan Assessment: Acute covid 19 pneumonia Acute hypoxic respiratory failure Acute on Chronic atrial fibrillation with rapid ventricular response Acute COPD exacerbation Likely sleep disorder breathing and sleep apnea Plan: Continue supportive care observe patient off of oxygen keep saturation over 90- 92% Increase activity as tolerated Deep breathing exercises incentive spirometry IV steroids can be switched to Decadron 6 mg daily for 10 days Continue supplements Continue maximal medical therapy for atrial fibrillation and RVR Time with Patient: Greater than 30
[2020-05-12 14:12] VITALS: BMI 22.5
[2020-05-12 18:10] VITALS: BP 142/93; PULSE 60
[2020-05-12] MEDS ORDERED: AZITHROMYCIN 500 MG TAB PO SCH (19:00)
--- NOTE | 2020-05-12 19:58 | PN ---
PROGRESS NOTE The patient is admitted with atrial fibrillation, rapid ventricular response, COVID pneumonia, was seen by primer boxer today. She finished her IV remdesivir. She is feeling better. She is on room air. CARDIOVASCULAR: S1, S2. LUNGS: Scattered rhonchi, wheeze. HEMATOLOGY: Negative Taz's. ASSESSMENT: 1. Acute COVID-19 pneumonia. 2. Hypoxemic respiratory distress. 3. Chronic atrial fibrillation, now on oral medicine. 4. Chronic obstructive pulmonary disease exacerbation. 5. Likely sleep apnea. Will see if she can keep her oxygen over 90%, 92%. PT/OT. Switch to oral Decadron. Possible discharge home next day or so. MMODL / IJN: [id number] /
--- NOTE | 2020-05-13 15:46 | CDI ---
Documentation Clarification Form Date: 05/13/20 From: Karla Salas Phone: Admit Date: 05/05/2020 04:25:00 PM Patient Name: Lisbet Dobbins Visit Number: [id number] Discharge Date: 05/12/2020 07:00:00 PM ATTENTION: The Clinical Documentation Specialists (CDI) and [facility] Coding Staff appreciate your assistance in clarifying documentation. Please respond to the clarification below the line at the bottom and electronically sign. The CDI & [facility] Coding staff will review the response and follow-up if needed. Please note: Queries are made part of the Legal Health Record. If you have any questions, please contact the author of this message via ITS. Dr. Abiel Nicole, Your patient has the documented diagnosis of unspecified CHF the neurology consult, Dr Nguyen PNs. Additional information regarding the [type, acuity] of CHF is requested. History/Risk Factors: COVID w pneumonia, COPD w acute exacerbation, chronic atrial fibrillation, epilepsy Clinical Indicators: Breathing on 4L. Present: regular rate, normal rhythm, normal heart sounds. VS/Pulse OX: T-97.7, P-115, 16, R-16, BP-88/68, o2-95 BNP: 4370 05/06 Echocardiogram Results: Overall left ventricular systolic function is normal with, an EF between 55 - 60 %. Chest X Ray: Mild cardiomegaly Treatment: Takes Lasix 20 mg daily at home and continued in the hospital. In your professional opinion, can you please clarify the [acuity and type] of CHF if known? [ [ Chronic Systolic Heart Failure (reduced EF) [ ] Chronic Diastolic Heart Failure (preserved EF) [ ] Chronic Systolic & Diastolic Heart Failure [ ] Other, please specify [ ] Unable to determine please ask the appropriate physician nowhere in my notes have i diagnosed CHF in this patient please avoid these kind of queries in future MTDD
--- NOTE | 2020-05-13 15:55 | CDI ---
Documentation Clarification Form Date: 05/13/20 From: Karla Salas Phone: Admit Date: 05/05/2020 04:25:00 PM Patient Name: Lisbet Dobbins Visit Number: [id number] Discharge Date: 05/12/2020 07:00:00 PM ATTENTION: The Clinical Documentation Specialists (CDI) and [facility] Coding Staff appreciate your assistance in clarifying documentation. Please respond to the clarification below the line at the bottom and electronically sign. The CDI & [facility] Coding staff will review the response and follow-up if needed. Please note: Queries are made part of the Legal Health Record. If you have any questions, please contact the author of this message via ITS. Dr. Lalo Nguyen, Unspecified CKD is documented in Dr Nicole's consult and PNs. Additional clarification regarding the stage of CKD is requested. History/Risk Factors: COVID w pneumonia, COPD w acute exacerbation, chronic atrial fibrillation, epilepsy Clinical Indicators: Hx of UTI's and nephrolithiasis. She was recently told she may have kidney function problems. Current BUN: 31, 36, 34 Current Cr: 10.6, 0.91, 0.87 Current GFR: 60, 72, 76 Please clarify the stage of the CKD, if known: [ ] CKD Stage 1 (GFR > 90) [ ] CKD Stage 2 (GFR 60-89) [ ] CKD Stage 3 (GFR 30-59) [ ] CKD Stage 3a (GFR 45-59) [ ] CKD Stage 3b (GFR 30-44) [ ] CKD Stage 4 (GFR 15-29) [ ] CKD Stage 5 (GFR <15) [ ] ESRD [ ] Other, please specify [ ] Unable to determine MTDD
--- NOTE | 2020-05-15 13:12 | CDI ---
Documentation Clarification Form Date: 05/15/2020 03:45:00 PM From: Karla Salas Phone: Admit Date: 05/05/2020 04:25:00 PM Patient Name: Lisbet Dobbins Visit Number: [id number] Discharge Date: 05/12/2020 07:00:00 PM ATTENTION: The Clinical Documentation Specialists (CDI) and [facility] Coding Staff appreciate your assistance in clarifying documentation. Please respond to the clarification below the line at the bottom and electronically sign. The CDI & [facility] Coding staff will review the response and follow-up if needed. Please note: Queries are made part of the Legal Health Record. If you have any questions, please contact the author of this message via ITS. Dr. Lalo Nguyen, Your patient has the documented diagnosis of unspecified CHF the neurology consult, in your progress notes. Additional information regarding the [type, acuity] of CHF is requested. History/Risk Factors: COVID w pneumonia, COPD w acute exacerbation, chronic atrial fibrillation, epilepsy Clinical Indicators: Breathing on 4L. Present: regular rate, normal rhythm, normal heart sounds. VS/Pulse OX: T-97.7, P-115, 16, R-16, BP-88/68, o2-95 BNP: 4370 330 Echocardiogram Results: Overall left ventricular systolic function is normal with, an EF between 55 - 60 %. Chest X Ray: Mild cardiomegaly Treatment: Takes Lasix 20 mg daily at home and continued in the hospital. In your professional opinion, can you please clarify the [acuity and type] of CHF if known? [ [ Chronic Systolic Heart Failure (reduced EF) [ ] Chronic Diastolic Heart Failure (preserved EF) [ ] Chronic Systolic & Diastolic Heart Failure [ ] Other, please specify [ ] Unable to determine MTDD
--- NOTE | 2020-05-15 13:14 | CDI ---
Documentation Clarification Form Date: 05/13/2020 03:54:00 PM From: Karla Salas Phone: Admit Date: 05/05/2020 04:25:00 PM Patient Name: Lisbet Dobbins Visit Number: [id number] Discharge Date: 05/12/2020 07:00:00 PM ATTENTION: The Clinical Documentation Specialists (CDI) and [facility] Coding Staff appreciate your assistance in clarifying documentation. Please respond to the clarification below the line at the bottom and electronically sign. The CDI & [facility] Coding staff will review the response and follow-up if needed. Please note: Queries are made part of the Legal Health Record. If you have any questions, please contact the author of this message via ITS. Dr. Lalo Nguyen, Unspecified CKD is documented in Dr Nicole's consult and PNs. Additional clarification regarding the stage of CKD is requested. History/Risk Factors: COVID w pneumonia, COPD w acute exacerbation, chronic atrial fibrillation, epilepsy Clinical Indicators: Hx of UTI's and nephrolithiasis. She was recently told she may have kidney function problems. Current BUN: 31, 36, 34 Current Cr: 10.6, 0.91, 0.87 Current GFR: 60, 72, 76 Please clarify the stage of the CKD, if known: [ ] CKD Stage 1 (GFR > 90) [ ] CKD Stage 2 (GFR 60-89) [ ] CKD Stage 3 (GFR 30-59) [ ] CKD Stage 3a (GFR 45-59) [ ] CKD Stage 3b (GFR 30-44) [ ] CKD Stage 4 (GFR 15-29) [ ] CKD Stage 5 (GFR <15) [ ] ESRD [ ] Other, please specify [ ] Unable to determine MTDD
--- NOTE | 2020-05-18 10:21 | PN ---
PROGRESS NOTE ADDENDUM: Chronic diastolic heart failure with preserved ejection fraction. RECOMMENDATIONS: GFR, chronic kidney disease, stage II. MMODL / IJN: [id number] /
--- NOTE | 2020-05-29 18:31 | DS ---
DISCHARGE SUMMARY DATE OF ADMISSION: 05/05/2020 DATE OF DISCHARGE: 05/12/2020 Medications include: 1. Ferrous sulfate 325 daily. 2. Potassium chloride 10 mEq daily. 3. Singulair 10 mg daily. 4. Lopressor 12.5 b.i.d. 5. Multivitamin daily. 6. Amantadine 5 mg daily. 7. Lasix 20 mg daily. 8. Albuterol 2 puffs q.4 hours p.r.n. 9. Prednisone 10 mg daily. 10.Eliquis 5 mg b.i.d. 11.Metoprolol 50 mg b.i.d. 12.Levetiracetam 500 b.i.d. 13.Zinc 220 mg daily. 14.Vitamin C 1000 daily. 15.Azithromycin 500 daily. CONDITION: Stable. PROGNOSIS: Guarded. She will need PT, OT, at home, home nursing care. The patient was admitted with COVID pneumonia, acute hypoxemic respiratory distress secondary to COVID-19. Patient stabilized from a respiratory standpoint. She had some metabolic encephalopathy secondary to COVID. She will have to follow up as an outpatient. She has a history of asthma exacerbation and COPD. She will follow up as an outpatient. MMODL / IJN: [id number] /
== END 2020-05-12 19:00 | disposition home health service (06) | DRG 177 ==
LOC: EC 13:46 → 3SCARD 16:25
PROVIDERS: ADMIT Family Medicine; ATTEND Family Medicine
PROC: XW033E5 Introduction of Remdesivir Anti-infective into Peripheral Vein, Percutaneous Approach, New Technology Group 5 (ICD-10-PCS; principal; 2020-05-06)
DX: U07.1 COVID-19 (principal); J12.82 Pneumonia due to coronavirus disease 2019; J96.01 Acute respiratory failure with hypoxia; I48.20 Chronic atrial fibrillation, unspecified; J44.1 Chronic obstructive pulmonary disease with (acute) exacerbation; J45.901 Unspecified asthma with (acute) exacerbation; J44.0 Chronic obstructive pulmonary disease with (acute) lower respiratory infection; I13.0 Hypertensive heart and chronic kidney disease with heart failure and stage 1 through stage 4 chronic kidney disease, or unspecified chronic kidney disease; I50.32 Chronic diastolic (congestive) heart failure; I27.20 Pulmonary hypertension, unspecified; G40.409 Other generalized epilepsy and epileptic syndromes, not intractable, without status epilepticus; F03.90 Unspecified dementia, unspecified severity, without behavioral disturbance, psychotic disturbance, mood disturbance, and anxiety; I95.9 Hypotension, unspecified; N18.2 Chronic kidney disease, stage 2 (mild); I71.9 Aortic aneurysm of unspecified site, without rupture; I49.3 Ventricular premature depolarization; E78.5 Hyperlipidemia, unspecified; G47.30 Sleep apnea, unspecified; F41.9 Anxiety disorder, unspecified; I08.1 Rheumatic disorders of both mitral and tricuspid valves; I99.9 Unspecified disorder of circulatory system; Z79.899 Other long term (current) drug therapy; W19.XXXA Unspecified fall, initial encounter; Z90.710 Acquired absence of both cervix and uterus; Z87.440 Personal history of urinary (tract) infections; Z90.89 Acquired absence of other organs; Z98.51 Tubal ligation status; Z87.81 Personal history of (healed) traumatic fracture; Z96.642 Presence of left artificial hip joint; Z87.442 Personal history of urinary calculi; Z98.890 Other specified postprocedural states; Z88.1 Allergy status to other antibiotic agents; Z82.49 Family history of ischemic heart disease and other diseases of the circulatory system
CPT/HCPCS: 36415; 70450; 70551; 71046; 71250; 80053; 81001; 82272; 83615; 83735; 83880; 84145; 84439; 84443; 84484; 85025; 85610; 85730; 86140; 86704; 86706; 87340; 87635; 93005; 93306; 94640; 99285

== ENCOUNTER 2020-05-13 14:41 | Emergency (ER) | payer MEDICARE ==
[2020-05-13 15:03] VITALS: RESP 18
[2020-05-13] MEDS ORDERED: SODIUM CHLORIDE 0.9% 1,000 ML IV STA (15:33)
--- NOTE | 2020-05-13 15:36 | ED ---
General Adult HPI - General Chief complaint: Weakness Stated complaint: fall/covid+ Time Seen by Provider: 05/13/20 15:25 Source: patient, EMS, RN notes reviewed Mode of arrival: EMS Limitations: no limitations - History of Present Illness Initial comments: Patient is 74-year-old female that presents to emergency room via EMS with the complaint of weakness. Patient is a very poor historian and only answers questions with don't know. When asked why she came to the emergency room patient said she doesn't know and that she just arrived here. Patient did appear a little bit dehydrated. She was in no apparent distress or pain. She did test positive for Covid on 05/05/2020 does not remember total amount of days that she's had symptoms. She denied chest pain shortness breath headache nausea vomiting diarrhea constipation fever fatigue chills. - Related Data Home Medications Medication Instructions Recorded Confirmed Ferrous Sulfate [Iron (65 MG 325 mg PO BID 04/27/18 05/05/20 Elemental)] Montelukast Sodium [Singulair] 10 mg PO HS 10/01/19 05/05/20 Albuterol Sulfate [Ventolin HFA] 2 puff INHALATION RT-Q6H PRN 05/05/20 05/05/20 Memantine [Namenda] 5 mg PO HS 05/05/20 05/05/20 Multivitamins, Thera [Multivitamin 1 tab PO DAILY 05/05/20 05/05/20 (formulary)] predniSONE 10 mg PO DAILY 05/05/20 05/05/20 Previous Rx's Medication Instructions Recorded Apixaban [Eliquis] 5 mg PO BID #60 tab 05/06/20 Ascorbic Acid [Vitamin C] 1,000 mg PO DAILY tab 05/12/20 Azithromycin [Zithromax] 500 mg PO DAILY@1900 5 Days #5 tab 05/12/20 Metoprolol Tartrate [Lopressor] 50 mg PO BID 30 Days #60 tab 05/12/20 Zinc Sulfate [Orazinc] 220 mg PO DAILY 10 Days #10 cap 05/12/20 levETIRAcetam [Keppra] 500 mg PO Q12HR 30 Days #60 tab 05/12/20 Allergies Allergy/AdvReac Type Severity Reaction Status Date / Time levofloxacin Allergy Swelling Verified 05/13/20 14:58 Review of Systems ROS Statement: Those systems with pertinent positive or pertinent negative responses have been documented in the HPI. ROS Other: All systems not noted in ROS Statement are negative. Past Medical History Past Medical History: Asthma, COPD, Dementia, Hyperlipidemia, Hypertension, Memory Impairment, Renal Disease, Seizure Disorder, Vascular Disorder Additional Past Medical History / Comment(s): Short term memory loss, aortic aneurysm, irregular heart beat in the past-pt/jeison cannot recall type, seizure once- 06/2019, UTI/cystitis, nephrolithiasis, recently told she may have "kidney function" problem, falls, L hand currently swollen-pt/jeison do not know cause. History of Any Multi-Drug Resistant Organisms: None Reported Past Surgical History: Back Surgery, Hysterectomy, Orthopedic Surgery, Tonsillectomy, Tubal Ligation Additional Past Surgical History / Comment(s): D&C, EGD, colonoscopy, L hip hemiarthroplasty d/t fracure, R shoulder surgery d/t fracture-has hardware Past Anesthesia/Blood Transfusion Reactions: No Reported Reaction, Motion Sickness Past Psychological History: Anxiety Smoking Status: Never smoker Past Alcohol Use History: None Reported Past Drug Use History: None Reported - Past Family History Mother Family Medical History: Hypertension Father Family Medical History: Coronary Artery Disease (CAD), Myocardial Infarction (CA) Additional Family Medical History / Comment(s): Father of a CA in his 70s. General Exam Limitations: no limitations (Patient is a very poor historian) General appearance: alert, in no apparent distress Head exam: Present: atraumatic, normocephalic, normal inspection Eye exam: Present: normal appearance, PERRL, EOMI. Absent: scleral icterus, conjunctival injection, periorbital swelling Neck exam: Present: normal inspection. Absent: tenderness, meningismus, lymphadenopathy Respiratory exam: Present: normal lung sounds bilaterally. Absent: respiratory distress, wheezes, rales, rhonchi, stridor Cardiovascular Exam: Present: regular rate, normal rhythm, normal heart sounds. Absent: systolic murmur, diastolic murmur, rubs, gallop, clicks GI/Abdominal exam: Present: soft, normal bowel sounds. Absent: distended, t enderness, guarding, rebound, rigid Extremities exam: Present: normal inspection, full ROM, normal capillary refill. Absent: tenderness, pedal edema, joint swelling, calf tenderness Psychiatric exam: Present: normal affect, normal mood Skin exam: Present: warm, dry, intact, normal color. Absent: rash Course Vital Signs 05/13/20 14:59 Temperature 97.1 F L Pulse Rate 60 Respiratory 18 Rate Blood Pressure 105/69 O2 Sat by Pulse 100 Oximetry EKG Findings - EKG Comments: EKG Findings:: Ventricular rate 60 bpm, MD interval 138 ms, QRS duration 82 ms, QT/QTc 422/422 ms, PRT axes 63/17/71. Sinus rhythm with premature atrial complexes, otherwise normal ECG. Medical Decision Making - Medical Decision Making 74-year-old female that presented with weakness via EMS. EKG, monitor technician, labs, rule severe ordered. Labs unremarkable from baseline. Patient is able to ambulate and gave urine sample and the bathroom. Case discussed with Dr. Davis patient can discharge home. - Lab Data Result diagrams: 05/13/20 16:34 05/13/20 16:34 Lab Results 05/13/20 05/13/20 05/13/20 Range/Units 16:34 16:34 16:34 WBC 12.3 H (3.8-10.6) k/uL RBC 3.96 (3.80-5.40) m/uL Hgb 12.6 (11.4-16.0) gm/dL Hct 37.8 (34.0-46.0) % MCV 95.6 (80.0-100.0) fL MCH 31.8 (25.0-35.0) pg MCHC 33.2 (31.0-37.0) g/dL RDW 14.1 (11.5-15.5) % Plt Count 368 (150-450) k/uL MPV 7.9 Neutrophils % 84 % Lymphocytes % 10 % Monocytes % 3 % Eosinophils % 1 % Basophils % 1 % Neutrophils # 10.4 H (1.3-7.7) k/uL Lymphocytes # 1.3 (1.0-4.8) k/uL Monocytes # 0.3 (0-1.0) k/uL Eosinophils # 0.1 (0-0.7) k/uL Basophils # 0.2 (0-0.2) k/uL PT 10.9 (9.0-12.0) sec INR 1.0 (<1.2) APTT 18.7 L (22.0-30.0) sec Sodium 137 (137-145) mmol/L Potassium 3.6 (3.5-5.1) mmol/L Chloride 105 (98-107) mmol/L Carbon Dioxide 31 H (22-30) mmol/L Anion Gap 1 mmol/L BUN 28 H (7-17) mg/dL Creatinine 0.87 (0.52-1.04) mg/dL Est GFR (CKD-EPI)AfAm 76 (>60 ml/min/1.73 sqM) Est GFR (CKD-EPI)NonAf 66 (>60 ml/min/1.73 sqM) Glucose 69 L (74-99) mg/dL Plasma Lactic Acid Nolberto (0.7-2.0) mmol/L Calcium 10.1 (8.4-10.2) mg/dL Magnesium 2.4 H (1.6-2.3) mg/dL Total Bilirubin 0.8 (0.2-1.3) mg/dL AST 31 (14-36) U/L ALT 24 (4-34) U/L Alkaline Phosphatase 55 (38-126) U/L Troponin I (0.000-0.034) ng/mL Total Protein 5.1 L (6.3-8.2) g/dL Albumin 2.7 L (3.5-5.0) g/dL Urine Color Urine Appearance (Clear) Urine pH (5.0-8.0) Ur Specific [place] (1.001-1.035) Urine Protein (Negative) Urine Glucose (UA) (Negative) Urine Ketones (Negative) Urine Blood (Negative) Urine Nitrite (Negative) Urine Bilirubin (Negative) Urine Urobilinogen (<2.0) mg/dL Ur Leukocyte Esterase (Negative) 05/13/20 05/13/20 05/13/20 Range/Units 16:34 16:34 17:43 WBC (3.8-10.6) k/uL RBC (3.80-5.40) m/uL Hgb (11.4-16.0) gm/dL Hct (34.0-46.0) % MCV (80.0-100.0) fL MCH (25.0-35.0) pg MCHC (31.0-37.0) g/dL RDW (11.5-15.5) % Plt Count (150-450) k/uL MPV Neutrophils % % Lymphocytes % % Monocytes % % Eosinophils % % Basophils % % Neutrophils # (1.3-7.7) k/uL Lymphocytes # (1.0-4.8) k/uL Monocytes # (0-1.0) k/uL Eosinophils # (0-0.7) k/uL Basophils # (0-0.2) k/uL PT (9.0-12.0) sec INR (<1.2) APTT (22.0-30.0) sec Sodium (137-145) mmol/L Potassium (3.5-5.1) mmol/L Chloride (98-107) mmol/L Carbon Dioxide (22-30) mmol/L Anion Gap mmol/L BUN (7-17) mg/dL Creatinine (0.52-1.04) mg/dL Est GFR (CKD-EPI)AfAm (>60 ml/min/1.73 sqM) Est GFR (CKD-EPI)NonAf (>60 ml/min/1.73 sqM) Glucose (74-99) mg/dL Plasma Lactic Acid Nolberto 1.1 (0.7-2.0) mmol/L Calcium (8.4-10.2) mg/dL Magnesium (1.6-2.3) mg/dL Total Bilirubin (0.2-1.3) mg/dL AST (14-36) U/L ALT (4-34) U/L Alkaline Phosphatase (38-126) U/L Troponin I <0.012 (0.000-0.034) ng/mL Total Protein (6.3-8.2) g/dL Albumin (3.5-5.0) g/dL Urine Color Yellow Urine Appearance Clear (Clear) Urine pH 6.5 (5.0-8.0) Ur Specific [place] 1.015 (1.001-1.035) Urine Protein Negative (Negative) Urine Glucose (UA) Negative (Negative) Urine Ketones Negative (Negative) Urine Blood Negative (Negative) Urine Nitrite Negative (Negative) Urine Bilirubin Negative (Negative) Urine Urobilinogen <2.0 (<2.0) mg/dL Ur Leukocyte Esterase Negative (Negative) - EKG Data -: EKG Interpreted by Oh EKG shows normal: sinus rhythm Rate: normal EKG Comments: Ventricular rate 60 bpm, MD interval 138 ms, QRS duration 82 ms, QT/QTc 422/422 ms, PRT axes 63/17/71. Sinus rhythm with premature atrial complexes, otherwise normal ECG. Disposition Clinical Impression: Fall, Dementia Disposition: HOME SELF-CARE Condition: Stable Instructions (If sedation given, give patient instructions): Dementia (ED), Fall Prevention for Older Adults (ED) Additional Instructions: Please return to the Emergency Department if symptoms worsen or any other concerns. Potentially think about finding a intermediate taken off her 24-hour care. Continue at home medications as prescribed Follow-up with primary care in 3-5 days. Is patient prescribed a controlled substance at d/c from ED?: No Referrals: Lalo Nguyen MD [Primary Care Provider] - 1-2 days Time of Disposition: 18:25
--- NOTE | 2020-05-13 16:12 | XR ---
EXAMINATION TYPE: XR chest 2V DATE OF EXAM: 05/13/2020 COMPARISON: 05/05/2020 HISTORY: Shortness of breath TECHNIQUE: Frontal and lateral views of the chest are obtained. FINDINGS: Scattered senescent parenchymal changes noted. Hyperinflation compatible with COPD. No evidence for infiltrate. No evidence for atelectasis. Small pleural effusions noted. Heart size is stable. Mediastinal structures are stable and grossly unremarkable. No evidence for hilar prominence. Degenerative changes dorsal spine. IMPRESSION: 1. No evidence for acute pulmonary disease.
[2020-05-13 16:50] LABS: Basophils # (A) 0.2 k/uL (0-0.2); Basophils % (A) 1 %; Eosinophils # (A) 0.1 k/uL (0-0.7); Eosinophils % (A) 1 %; HCT 37.8 % (34.0-46.0); HGB 12.6 gm/dL (11.4-16.0); Lymphocytes # (A) 1.3 k/uL (1.0-4.8); Lymphocytes % (A) 10 %; MCH 31.8 pg (25.0-35.0); MCHC 33.2 g/dL (31.0-37.0); MCV 95.6 fL (80.0-100.0); Mean Platelet Volume 7.9; Monocytes # (A) 0.3 k/uL (0-1.0); Monocytes % (A) 3 %; Neutrophils # (A) 10.4 k/uL (1.3-7.7); Neutrophils % (A) 84 %; Platelet Count 368 k/uL (150-450); RBC 3.96 m/uL (3.80-5.40); RDW 14.1 % (11.5-15.5); WBC 12.3 k/uL (3.8-10.6)
[2020-05-13 17:02] LABS: Albumin 2.7 g/dL (3.5-5.0); Calcium 10.1 mg/dL (8.4-10.2); Magnesium 2.4 mg/dL (1.6-2.3); Potassium 3.6 mmol/L (3.5-5.1); Total Bilirubin 0.8 mg/dL (0.2-1.3); Total Protein 5.1 g/dL (6.3-8.2)
[2020-05-13 17:11] LABS: Prothrombin Time 10.9 sec (9.0-12.0)
[2020-05-13 17:14] LABS: Partial Thromboplastin Time 18.7 sec (22.0-30.0)
[2020-05-13 17:50] LABS: Appearance,Urine Clear (Clear); Bilirubin,Urine Negative (Negative); Blood,Urine Negative (Negative); Color,Urine Yellow; Glucose,Urine (UA) Negative (Negative); Ketones,Urine Negative (Negative); Leukocyte Esterase,Urine Negative (Negative); Nitrite,Urine Negative (Negative); PH, Urine 6.5 (5.0-8.0); Protein,Urine Negative (Negative); Specific Gravity,Urine 1.015 (1.001-1.035); Urobilinogen,Urine <2.0 mg/dL (<2.0)
[2020-05-13 21:58] VITALS: BP 117/78; PULSE 76; TEMP 98.1
== END 2020-05-13 22:44 | disposition home or self-care (01) ==
LOC: EC 14:41
DX: F03.90 Unspecified dementia, unspecified severity, without behavioral disturbance, psychotic disturbance, mood disturbance, and anxiety (principal); E78.5 Hyperlipidemia, unspecified; I10 Essential (primary) hypertension; J44.9 Chronic obstructive pulmonary disease, unspecified; F41.9 Anxiety disorder, unspecified; Z79.01 Long term (current) use of anticoagulants; Z79.52 Long term (current) use of systemic steroids
CPT/HCPCS: 36415; 71046; 80053; 81003; 83605; 83735; 84484; 85025; 85610; 85730; 93005; 96360; 96361; 99285

== ENCOUNTER 2020-05-15 13:15 | Emergency (ER) | payer MEDICARE ==
[2020-05-15 13:21] VITALS: RESP 18
[2020-05-15] MEDS ORDERED: KETOROLAC 15 MG/ML 1 ML VIAL IM STA (13:39)
--- NOTE | 2020-05-15 13:39 | ED ---
General Adult HPI - General Chief complaint: Recheck/Abnormal Lab/Rx Stated complaint: fall Time Seen by Provider: 05/15/20 13:15 Source: patient, RN notes reviewed, old records reviewed Mode of arrival: ambulatory Limitations: no limitations - History of Present Illness Initial comments: This is a 74-year-old female presents emergency department after having fallen yesterday. Patient went to [facility] yesterday and was told he did not find any fractures. Patient comes in today still complaining of back pain. Patient points to her right posterior rib cage when I asked her where the pain hurts. Patient denies any fever chills. Patient denies any lower back pain. Patient denies any extremity pain. Patient denies any neck pain. Patient is able to move both of her legs without problem. - Related Data Home Medications Medication Instructions Recorded Confirmed Ferrous Sulfate [Iron (65 MG 325 mg PO BID 04/27/18 05/05/20 Elemental)] Montelukast Sodium [Singulair] 10 mg PO HS 10/01/19 05/05/20 Albuterol Sulfate [Ventolin HFA] 2 puff INHALATION RT-Q6H PRN 05/05/20 05/05/20 Memantine [Namenda] 5 mg PO HS 05/05/20 05/05/20 Multivitamins, Thera [Multivitamin 1 tab PO DAILY 05/05/20 05/05/20 (formulary)] predniSONE 10 mg PO DAILY 05/05/20 05/05/20 Previous Rx's Medication Instructions Recorded Apixaban [Eliquis] 5 mg PO BID #60 tab 05/06/20 Ascorbic Acid [Vitamin C] 1,000 mg PO DAILY tab 05/12/20 Azithromycin [Zithromax] 500 mg PO DAILY@1900 5 Days #5 tab 05/12/20 Metoprolol Tartrate [Lopressor] 50 mg PO BID 30 Days #60 tab 05/12/20 Zinc Sulfate [Orazinc] 220 mg PO DAILY 10 Days #10 cap 05/12/20 levETIRAcetam [Keppra] 500 mg PO Q12HR 30 Days #60 tab 05/12/20 Allergies Allergy/AdvReac Type Severity Reaction Status Date / Time levofloxacin Allergy Swelling Verified 05/13/20 14:58 Review of Systems ROS Statement: Those systems with pertinent positive or pertinent negative responses have been documented in the HPI. ROS Other: All systems not noted in ROS Statement are negative. Past Medical History Past Medical History: Asthma, COPD, Dementia, Hyperlipidemia, Hypertension, Memory Impairment, Renal Disease, Seizure Disorder, Vascular Disorder Additional Past Medical History / Comment(s): Short term memory loss, aortic aneurysm, irregular heart beat in the past-pt/jeison cannot recall type, seizure once- 06/2019, UTI/cystitis, nephrolithiasis, recently told she may have "kidney function" problem, falls, L hand currently swollen-pt/jeison do not know cause. History of Any Multi-Drug Resistant Organisms: None Reported Past Surgical History: Back Surgery, Hysterectomy, Orthopedic Surgery, Tonsillectomy, Tubal Ligation Additional Past Surgical History / Comment(s): D&C, EGD, colonoscopy, L hip hemiarthroplasty d/t fracure, R shoulder surgery d/t fracture-has hardware Past Anesthesia/Blood Transfusion Reactions: No Reported Reaction, Motion Sickness Past Psychological History: Anxiety Smoking Status: Never smoker Past Alcohol Use History: None Reported Past Drug Use History: None Reported - Past Family History Mother Family Medical History: Hypertension Father Family Medical History: Coronary Artery Disease (CAD), Myocardial Infarction ([place]) Additional Family Medical History / Comment(s): Father of a ND in his 70s. General Exam - General Exam Comments Initial Comments: GENERAL: Patient is well-developed and well-nourished. Patient is nontoxic and well- hydrated and is in mild distress. ENT: Neck is soft and supple. No significant lymphadenopathy is noted. Oropharynx is clear. Moist mucous membranes. Neck has full range of motion without eliciting any pain. EYES: The sclera were anicteric and conjunctiva were pink and moist. Extraocular movements were intact and pupils were equal round and reactive to light. Eyelids were unremarkable. PULMONARY: Unlabored respirations. Good breath sounds bilaterally. No audible rales rhonchi or wheezing was noted. CARDIOVASCULAR: There is a regular rate and rhythm without any murmurs gallops or rubs. Patient has posterior right rib pain. ABDOMEN: Soft and nontender with normal bowel sounds. SKIN: Skin is clear with no lesions or rashes and otherwise unremarkable. NEUROLOGIC: Patient is alert and oriented 2. Cranial nerves II through XII are grossly intact. Motor and sensory are also intact. Normal speech, volume and content. Symmetrical smile. MUSCULOSKELETAL: Normal extremities with adequate strength and full range of motion. No lower extremity swelling or edema. No calf tenderness. LYMPHATICS: No significant lymphadenopathy is noted PSYCHIATRIC: Normal psychiatric evaluation. Limitations: no limitations Course Vital Signs 05/15/20 13:16 Temperature 98.3 F Pulse Rate 74 Respiratory 18 Rate Blood Pressure 119/81 O2 Sat by Pulse 95 Oximetry Medical Decision Making - Medical Decision Making Chest x-ray shows no pneumothorax rib x-ray shows no rib fractures. Patient was able to get up and an bili to the bathroom without problem. Disposition Clinical Impression: Fall, Rib pain Disposition: HOME SELF-CARE Condition: Good Instructions (If sedation given, give patient instructions): Rib Contusion (ED) Is patient prescribed a controlled substance at d/c from ED?: No Referrals: Lalo Nguyen MD [Primary Care Provider] - 1-2 days Time of Disposition: 14:47
--- NOTE | 2020-05-15 14:34 | XR ---
EXAMINATION TYPE: XR ribs RT w pa chest xray DATE OF EXAM: 05/15/2020 COMPARISON: NONE HISTORY: Pain TECHNIQUE: Single view of the chest 4 views of the ribs are submitted. FINDINGS: The lungs are clear. No Evidence for pneumothorax. No evidence for focal contusion. Pleur al thickening right costophrenic angle. Mediastinal structures are midline. Evaluation of the ribs f ails to demonstrate evidence for displaced rib fracture or secondary sign of rib fracture. IMPRESSION: No evidence for displaced rib fracture or pneumothorax.
[2020-05-15 18:09] VITALS: BP 120/80; PULSE 78; TEMP 98.4
== END 2020-05-15 18:07 | disposition home or self-care (01) ==
LOC: EC 13:15
DX: R07.81 Pleurodynia (principal); M54.9 Dorsalgia, unspecified; J44.9 Chronic obstructive pulmonary disease, unspecified; E78.5 Hyperlipidemia, unspecified; I10 Essential (primary) hypertension; G40.909 Epilepsy, unspecified, not intractable, without status epilepticus; F03.90 Unspecified dementia, unspecified severity, without behavioral disturbance, psychotic disturbance, mood disturbance, and anxiety; F41.9 Anxiety disorder, unspecified; W18.30XA Fall on same level, unspecified, initial encounter
CPT/HCPCS: 99284

== ENCOUNTER 2020-06-07 23:03 | Observation (INO) | payer MEDICARE ==
--- NOTE | 2020-06-07 23:42 | ED ---
General Adult HPI - General Chief complaint: Weakness Stated complaint: Altered Mental Status Time Seen by Provider: 06/07/20 23:10 Source: EMS Mode of arrival: EMS - History of Present Illness Initial comments: This patient is a 74-year-old woman who is brought by ambulance to be evaluated for altered mental status. I did obtain history from the patient but this is somewhat limited due to some underlying dementia and also from the patient's daughter. Patient's daughter states that approximately one hour ago, they were at the patient's home when the patient started stating that it felt like the kitchen table was too big. Her speech was becoming somewhat slurred. They called EMS and patient was brought here for evaluation. When I interview the patient, she is denying pain and dyspnea. Patient not able to further characterize her symptoms. Onset/Timin -: hour(s) Location: left, upper extremity Consistency: constant Improves with: none Worsens with: none Associated Symptoms: confusion Treatments Prior to Arrival: none - Related Data Home Medications Medication Instructions Recorded Confirmed Ferrous Sulfate [Iron (65 MG 325 mg PO BID 04/27/18 05/05/20 Elemental)] Montelukast Sodium [Singulair] 10 mg PO HS 10/01/19 05/05/20 Albuterol Sulfate [Ventolin HFA] 2 puff INHALATION RT-Q6H PRN 05/05/20 05/05/20 Memantine [Namenda] 5 mg PO HS 05/05/20 05/05/20 Multivitamins, Thera [Multivitamin 1 tab PO DAILY 05/05/20 05/05/20 (formulary)] predniSONE 10 mg PO DAILY 05/05/20 05/05/20 Previous Rx's Medication Instructions Recorded Apixaban [Eliquis] 5 mg PO BID #60 tab 05/06/20 Ascorbic Acid [Vitamin C] 1,000 mg PO DAILY tab 05/12/20 Azithromycin [Zithromax] 500 mg PO DAILY@1900 5 Days #5 tab 05/12/20 Metoprolol Tartrate [Lopressor] 50 mg PO BID 30 Days #60 tab 05/12/20 Zinc Sulfate [Orazinc] 220 mg PO DAILY 10 Days #10 cap 05/12/20 levETIRAcetam [Keppra] 500 mg PO Q12HR 30 Days #60 tab 05/12/20 Allergies Allergy/AdvReac Type Severity Reaction Status Date / Time levofloxacin Allergy Swelling Verified 06/07/20 23:17 Review of Systems ROS Statement: Those systems with pertinent positive or pertinent negative responses have been documented in the HPI. ROS Other: All systems not noted in ROS Statement are negative. Constitutional: Denies: fever, chills Eyes: Denies: eye pain, vision change ENT: Denies: hearing loss Respiratory: Denies: cough, dyspnea Cardiovascular: Denies: chest pain, syncope Gastrointestinal: Denies: abdominal pain, vomiting, diarrhea Genitourinary: Denies: dysuria Musculoskeletal: Denies: back pain Skin: Denies: rash Neurological: Denies: headache, weakness, numbness Past Medical History Past Medical History: Asthma, COPD, Dementia, Hyperlipidemia, Hypertension, Memory Impairment, Renal Disease, Seizure Disorder, Vascular Disorder Additional Past Medical History / Comment(s): Short term memory loss, aortic aneurysm, irregular heart beat in the past-pt/jeison cannot recall type, seizure once- 06/2019, UTI/cystitis, nephrolithiasis, recently told she may have "kidney function" problem, falls, L hand currently swollen-pt/jeison do not know cause. History of Any Multi-Drug Resistant Organisms: None Reported Past Surgical History: Back Surgery, Hysterectomy, Orthopedic Surgery, Tonsillectomy, Tubal Ligation Additional Past Surgical History / Comment(s): D&C, EGD, colonoscopy, L hip hemiarthroplasty d/t fracure, R shoulder surgery d/t fracture-has hardware Past Anesthesia/Blood Transfusion Reactions: No Reported Reaction, Motion Sickness Past Psychological History: Anxiety Smoking Status: Never smoker Past Alcohol Use History: None Reported Past Drug Use History: None Reported - Past Family History Mother Family Medical History: Hypertension Father Family Medical History: Coronary Artery Disease (CAD), Myocardial Infarction (CA) Additional Family Medical History / Comment(s): Father of a CA in his 70s. General Exam General appearance: alert, in no apparent distress Head exam: Present: atraumatic, normocephalic Eye exam: Present: normal appearance, PERRL, EOMI. Absent: scleral icterus, conjunctival injection ENT exam: Present: normal oropharynx Neck exam: Present: normal inspection, full ROM. Absent: tenderness Respiratory exam: Present: normal lung sounds bilaterally. Absent: respiratory distress, wheezes, rales, rhonchi, stridor Cardiovascular Exam: Present: regular rate, irregular rhythm, normal heart sounds. Absent: systolic murmur, diastolic murmur, rubs, gallop GI/Abdominal exam: Present: soft. Absent: distended, tenderness, guarding, r ebound, rigid, mass Extremities exam: Present: normal inspection, normal capillary refill. Absent: pedal edema, calf tenderness Back exam: Present: normal inspection. Absent: CVA tenderness (R), CVA tenderness (L) Neurological exam: Present: alert, CN II-XII intact, motor sensory deficit (There is some mild subjective weakness of the left upper extremity, still 5 out of 5.), other. Absent: oriented X3 (Patient is oriented to person and recognizes she is in a hospital, but not able to state the date) Skin exam: Present: warm, dry, intact, normal color. Absent: rash Course Vital Signs 06/07/20 06/07/20 06/08/20 23:12 23:55 00:05 Temperature 98.2 F Pulse Rate 85 70 69 Respiratory 18 16 18 Rate Blood Pressure 195/120 175/94 175/94 O2 Sat by Pulse 98 96 98 Oximetry 06/08/20 00:57 Temperature 98 F Pulse Rate 74 Respiratory 16 Rate Blood Pressure 130/90 O2 Sat by Pulse 98 Oximetry EKG Findings - EKG Results: EKG: interpreted by STEVIE, normal axis, normal QRS EKG shows: atrial fibrillation (Rate approximately 88 bpm) - Blocks, [place], Hypertrophy, ST Abn: Repolarization changes or abnormalities: nonspecific abnormality, ST segment, and/or T wave Medical Decision Making - Lab Data Result diagrams: 06/07/20 23:33 06/07/20 23:33 Lab Results 06/07/20 06/07/20 06/07/20 Range/Units 23:33 23:33 23:33 WBC 8.7 (3.8-10.6) k/uL RBC 3.62 L (3.80-5.40) m/uL Hgb 11.5 (11.4-16.0) gm/dL Hct 35.1 (34.0-46.0) % MCV 97.1 (80.0-100.0) fL MCH 31.8 (25.0-35.0) pg MCHC 32.8 (31.0-37.0) g/dL RDW 13.7 (11.5-15.5) % Plt Count 366 (150-450) k/uL MPV 7.7 Neutrophils % 52 % Lymphocytes % 39 % Monocytes % 5 % Eosinophils % 2 % Basophils % 1 % Neutrophils # 4.5 (1.3-7.7) k/uL Lymphocytes # 3.4 (1.0-4.8) k/uL Monocytes # 0.4 (0-1.0) k/uL Eosinophils # 0.2 (0-0.7) k/uL Basophils # 0.1 (0-0.2) k/uL Hypochromasia Slight PT 10.5 (9.0-12.0) sec INR 1.0 (<1.2) APTT 19.6 L (22.0-30.0) sec Sodium 143 (137-145) mmol/L Potassium 3.7 (3.5-5.1) mmol/L Chloride 108 H (98-107) mmol/L Carbon Dioxide 30 (22-30) mmol/L Anion Gap 5 mmol/L BUN 12 (7-17) mg/dL Creatinine 0.81 (0.52-1.04) mg/dL Est GFR (CKD-EPI)AfAm 83 (>60 ml/min/1.73 sqM) Est GFR (CKD-EPI)NonAf 72 (>60 ml/min/1.73 sqM) Glucose 97 (74-99) mg/dL Plasma Lactic Acid Nolberto (0.7-2.0) mmol/L Calcium 10.2 (8.4-10.2) mg/dL Magnesium 2.2 (1.6-2.3) mg/dL Total Bilirubin 0.4 (0.2-1.3) mg/dL AST 25 (14-36) U/L ALT 11 (4-34) U/L Alkaline Phosphatase 124 (38-126) U/L Troponin I (0.000-0.034) ng/mL Total Protein 6.1 L (6.3-8.2) g/dL Albumin 3.3 L (3.5-5.0) g/dL 06/07/20 06/07/20 Range/Units 23:33 23:33 WBC (3.8-10.6) k/uL RBC (3.80-5.40) m/uL Hgb (11.4-16.0) gm/dL Hct (34.0-46.0) % MCV (80.0-100.0) fL MCH (25.0-35.0) pg MCHC (31.0-37.0) g/dL RDW (11.5-15.5) % Plt Count (150-450) k/uL MPV Neutrophils % % Lymphocytes % % Monocytes % % Eosinophils % % Basophils % % Neutrophils # (1.3-7.7) k/uL Lymphocytes # (1.0-4.8) k/uL Monocytes # (0-1.0) k/uL Eosinophils # (0-0.7) k/uL Basophils # (0-0.2) k/uL Hypochromasia PT (9.0-12.0) sec INR (<1.2) APTT (22.0-30.0) sec Sodium (137-145) mmol/L Potassium (3.5-5.1) mmol/L Chloride (98-107) mmol/L Carbon Dioxide (22-30) mmol/L Anion Gap mmol/L BUN (7-17) mg/dL Creatinine (0.52-1.04) mg/dL Est GFR (CKD-EPI)AfAm (>60 ml/min/1.73 sqM) Est GFR (CKD-EPI)NonAf (>60 ml/min/1.73 sqM) Glucose (74-99) mg/dL Plasma Lactic Acid Nolberto 2.0 (0.7-2.0) mmol/L Calcium (8.4-10.2) mg/dL Magnesium (1.6-2.3) mg/dL Total Bilirubin (0.2-1.3) mg/dL AST (14-36) U/L ALT (4-34) U/L Alkaline Phosphatase (38-126) U/L Troponin I <0.012 (0.000-0.034) ng/mL Total Protein (6.3-8.2) g/dL Albumin (3.5-5.0) g/dL Disposition Clinical Impression: Altered mental status, TIA (transient ischemic attack) Disposition: ADMITTED IP TO THIS HOSP Condition: Fair Referrals: Lalo Nguyen MD [Primary Care Provider] - 1-2 days
--- NOTE | 2020-06-07 23:48 | CT ---
EXAMINATION TYPE: CT brain wo con for TPA DATE OF EXAM: 06/07/2020 COMPARISON: 05/05/2020 HISTORY: AMS Code Stroke CT DLP: 1158.4 mGycm Automated exposure control for dose reduction was used. There is cerebral atrophy. There is enlargement of the ventricles. There is hypodensity in the perive ntricular white matter. There is no mass effect nor midline shift. There is no sign of intracranial h emorrhage. Calvarium is intact. IMPRESSION: Cerebral atrophy and chronic small vessel ischemia. No change compared to old exam.
--- NOTE | 2020-06-07 23:49 | XR ---
EXAMINATION TYPE: XR chest 1V DATE OF EXAM: 06/07/2020 COMPARISON: 05/15/2020 HISTORY: Weakness TECHNIQUE: Single view FINDINGS: There is some linear density left lung base. There is no heart failure. Heart size is kushal l. Thoracic aorta is atheromatous. There are chest leads. IMPRESSION: There is some atelectasis at the left lung base and pleural reaction similar to old exam. There is an improvement in the aeration right lung base compared to old exam. No heart failure.
[2020-06-07 23:58] LABS: Basophils # (A) 0.1 k/uL (0-0.2); Basophils % (A) 1 %; Eosinophils # (A) 0.2 k/uL (0-0.7); Eosinophils % (A) 2 %; HCT 35.1 % (34.0-46.0); HGB 11.5 gm/dL (11.4-16.0); Hypochromasia Slight; Lymphocytes # (A) 3.4 k/uL (1.0-4.8); Lymphocytes % (A) 39 %; MCH 31.8 pg (25.0-35.0); MCHC 32.8 g/dL (31.0-37.0); MCV 97.1 fL (80.0-100.0); Mean Platelet Volume 7.7; Monocytes # (A) 0.4 k/uL (0-1.0); Monocytes % (A) 5 %; Neutrophils # (A) 4.5 k/uL (1.3-7.7); Neutrophils % (A) 52 %; Platelet Count 366 k/uL (150-450); RBC 3.62 m/uL (3.80-5.40); RDW 13.7 % (11.5-15.5); WBC 8.7 k/uL (3.8-10.6)
[2020-06-08 00:03] LABS: Albumin 3.3 g/dL (3.5-5.0); Calcium 10.2 mg/dL (8.4-10.2); Magnesium 2.2 mg/dL (1.6-2.3); Potassium 3.7 mmol/L (3.5-5.1); Total Bilirubin 0.4 mg/dL (0.2-1.3); Total Protein 6.1 g/dL (6.3-8.2)
[2020-06-08 00:09] LABS: Prothrombin Time 10.5 sec (9.0-12.0)
[2020-06-08] MEDS ORDERED: DIPH,PERTUS(ACELL)TETVAC-LF 0.5 ML VIAL IM ONE (00:23)
[2020-06-08] MEDS ORDERED: MORPHINE SULFATE 4 MG/ML SYRINGE IV STA (00:23)
[2020-06-08 00:26] LABS: Partial Thromboplastin Time 19.6 sec (22.0-30.0)
[2020-06-08] MEDS ORDERED: ACETAMINOPHEN TAB 325 MG TAB PO PRN (02:03)
[2020-06-08] MEDS ORDERED: ALBUTEROL NEBULIZED 2.5 MG/3 ML INHALATION PRN (02:06)
[2020-06-08] MEDS: SODIUM CHLORIDE 0.9% 1,000 ML IV SCH (02:15)
[2020-06-08] MEDS: DOCUSATE 100 MG CAP PO SCH ×3 (08:55→23:34)
[2020-06-08] MEDS: APIXABAN 5 MG TAB PO SCH ×2 (08:55→20:15)
[2020-06-08] MEDS: METOPROLOL TARTRATE 50 MG TAB PO SCH ×2 (08:55→20:14)
[2020-06-08] MEDS: levETIRAcetam 500 MG TAB PO SCH ×2 (08:55→20:14)
[2020-06-08] MEDS: FAMOTIDINE 20 MG TAB PO SCH ×2 (08:55→20:26)
[2020-06-08] MEDS: FERROUS SULFATE 325 MG TAB PO SCH ×2 (08:55→20:14)
--- NOTE | 2020-06-08 09:08 | P.CNNES ---
History of Present Illness Consult date: 06/08/20 Requesting physician: Jg Clay Reason for Consult: possible tia for slurred speech and alterd mental status History of Present Illness: This is a 74-year-old woman with medical history of seizure, congestive heart fa ilure, COPD, mild to moderate dementia, hypertension, atrial fibrillation on eliquis that presented to the emergency department on 06/07/2020 for altered mental status. Some of the history is obtained from medical record since patient is unable to provide information. According to the patient that she came in because the she was short of breath and had asthma. Per the ED note per the daughter 1 hour prior to presenting the ED the patient stated she felt like the kitchen table was too big. Her speech was becoming slurred. Currently the patient states that as she is doing much better. She denies of any headache, visual disturbance, focal weakness, numbness. She stated that she's taking her medication. I personally evaluate the patient on 05/06/2020 for seizure episode. And at that time because of her diagnosis of seizure she was not on any seizure medication I'll place the patient on Keppra 500 mg 1 tablet twice a day. I felt on the last events she had a provoked seizure because of the patient covid the 19 pneumonia. I got MRI of the brain as well and the was reported as atrophy with chronic appearing periventricular white matter ischemic changes noted U intracranial process. I asked the patient to follow-up with a neurologist within 12 weeks upon discharge. Please refer to my note for further neurological history and workup. Workup in the hospital consisted of: Initial vital signs: Blood pressure of 195/120, heart rate of 85, respiratory of 18, temperature of 98.2 Fahrenheit oral and pulse ox of 98% room air CT of the head is reported as cerebral atrophy and chronic small vessel ischemia. No change compared to old exam. EKG is reported as age are fibrillation with premature ventricular or aberrantly conducted complexes. Nonspecific ST abnormality. Abnormal EKG. White blood cell is 8.7 which is normal. Initial serum glucose 97 which is normal. Calcium 7.2, magnesium is 2.2 and liver function tests is normal as well as the sodium is normal. SARS-COV2 PCR is not detected. Review of Systems Review of system: The 12 point system was reviewed and apparent positive and negative per HPI. Past Medical History Past Medical History: Asthma, COPD, Dementia, Hyperlipidemia, Hypertension, Memory Impairment, Renal Disease, Seizure Disorder, Vascular Disorder Additional Past Medical History / Comment(s): Short term memory loss, aortic aneurysm, irregular heart beat in the past-pt/jeison cannot recall type, seizure once- 06/2019, UTI/cystitis, nephrolithiasis, recently told she may have "kidney function" problem, falls, L hand currently swollen-pt/jeison do not know cause. History of Any Multi-Drug Resistant Organisms: None Reported Past Surgical History: Back Surgery, Hysterectomy, Orthopedic Surgery, Tonsillectomy, Tubal Ligation Additional Past Surgical History / Comment(s): D&C, EGD, colonoscopy, L hip hemiarthroplasty d/t fracure, R shoulder surgery d/t fracture-has hardware Past Anesthesia/Blood Transfusion Reactions: No Reported Reaction, Motion Sickness Past Psychological History: Anxiety Additional Psychological History / Comment(s): Pt resides with her jeison, Analisa. She uses a cane or walker to ambulate. Her jeison is her caregiver, she assists pt with bathing/dressin and manages her medications and also drives her to [employer]. Smoking Status: Never smoker Past Alcohol Use History: None Reported Past Drug Use History: None Reported - Past Family History Mother Family Medical History: Hypertension Father Family Medical History: Coronary Artery Disease (CAD), Myocardial Infarction (PA) Additional Family Medical History / Comment(s): Father of a PA in his 70s. Medications and Allergies Home Medications Medication Instructions Recorded Confirmed Type Ferrous Sulfate [Iron (65 MG 325 mg PO BID 04/27/18 06/08/20 History Elemental)] Montelukast Sodium [Singulair] 10 mg PO HS 10/01/19 06/08/20 History Albuterol Sulfate [Ventolin HFA] 2 puff INHALATION RT-QID PRN 05/05/20 06/08/20 History Memantine [Namenda] 5 mg PO HS 05/05/20 06/08/20 History Multivitamins, Thera [Multivitamin 1 tab PO DAILY 05/05/20 06/08/20 History (formulary)] predniSONE 10 mg PO DAILY 05/05/20 06/08/20 History Apixaban [Eliquis] 5 mg PO BID #60 tab 05/06/20 06/08/20 Rx Ascorbic Acid [Vitamin C] 1,000 mg PO DAILY tab 05/12/20 06/08/20 Rx Metoprolol Tartrate [Lopressor] 50 mg PO BID 30 Days #60 tab 05/12/20 06/08/20 Rx levETIRAcetam [Keppra] 500 mg PO Q12HR 30 Days #60 tab 05/12/20 06/08/20 Rx HYDROcodone/APAP 5-325MG [[place] 1 tab PO Q12H PRN 06/08/20 06/08/20 History 5-325] Allergies Allergy/AdvReac Type Severity Reaction Status Date / Time levofloxacin Allergy Swelling Verified 06/08/20 06:54 Physical Examination - Vital Signs Vital Signs: Vital Signs Temp Pulse Pulse Resp BP BP Pulse Ox 06/08/20 03:00 98.4 F 69 20 133/82 96 06/08/20 00:57 98 F 74 16 130/90 98 06/08/20 00:05 69 18 175/94 98 06/07/20 23:55 70 16 175/94 96 06/07/20 23:12 98.2 F 85 18 195/120 98 Intake and Output 06/07/20 06/08/20 06/08/20 22:59 06:59 14:59 Intake Total 100 Output Total 250 Balance -150 Intake: Oral 100 Output: Urine 250 Other: Voiding Method Diaper Incontinent # Voids 0 Weight 51.9 kg GENERAL: The patient is lying in bed and is not in acute distress. CHEST: The heart rate is regular rate rhythm. No murmurs to auscultation. No carotid bruit bilaterally. LUNG: Clear to auscultation bilaterally no wheezing noted throughout. Not labored breathing. ABDOMEN/GI: Bowel sounds present in all 4 quadrants. No tenderness to palpation throughout. NEUROLOGICAL: Higher mental function: The patient is awake, alert, oriented to self. She stated she was in the hospital and with options she correctly stated it was [place]. She stated the year was 1998 and Month was September. She is able to name objects correctly (cup and phone). Patient is following simple commands. No aphasia and no neglect. Cranial nerves: The pupils are round, equal and reactive to light and accommodation. Visual shea are full to confrontation throughout. Extraocular movement is intact no nystagmus is noted. Facial sensation is normal to touch throughout. The facial strength is normal throughout. Hearing is mildlyl bilaterally to hand rub. Tongue is midline and moved [id number] without any difficulty. No dysarthria is noted. Shoulder shrug is normal bilaterally. Motor: Gait is deferred. The strength is 5 over 5 throughout. Normal tone and bulk. Cerebellum: Normal finger to nose bilaterally. Sensation: Sensation is normal to touch throughout. Reflexes (right/left): 1+ throughout. Plantars are downgoing bilaterally. Results - Laboratory Findings CBC and BMP: 06/07/20 23:33 06/07/20 23:33 Abnormal Lab Findings: Abnormal Labs 06/07/20 06/07/20 06/07/20 23:33 23:33 23:33 RBC 3.62 L APTT 19.6 L Chloride 108 H Total Protein 6.1 L Albumin 3.3 L Assessment and Plan Assessment: Episodes of slurring the speech and altered in mentation seems due to uncontro lled HTN leading to hypertensive encephalopathy (presented with blood pressure of 195/120). I cannot exclude TIA. History of seizure Hypertension. Documented Dementia mild to moderate Atrial fibrillation on eliquis History of COVID19 Pneumonia (04/2020) Congestive heart failure COPD Plan: CT of the head is reported as cerebral atrophy and chronic small vessel ischemia. No change compared to old exam. Patient is on Eliquis 5 mg 1 tablet twice a day. She was added ASA 325mg daily by the ED team and I decreased it to 81mg daily. If the patient has episodes of falls or the has a increased risk of falls then I would recommend stopping aspirin from a neurological standpoint. I placed the patient on Lipitor 20 mg daily. TSH is 0.229 which is low and the free T4 is 1.82 which is normal and those were done on 05/07/2020. Lipid panels ordered is pending. I ordered carotid duplex and 2D echo. PT, OT and CHART READER are consulted. Every 4 hours neuro checks. Placed the patient on continuous cardiac monitoring. I ordered vitamin B12 and folate level. Continue Keppra 500 mg 1 tablet twice a day. We'll defer the rest of the medical management to the primary team The plan is discussed with the patient's nurse. Thank you for the consultation. Dr. Alejo will take over neurology coverage starting tomorrow (06/09/00) AM. Suleman Chandler MD Neuro-Hopsitalist Time with Patient: Greater than 30
--- NOTE | 2020-06-08 11:05 | US ---
EXAMINATION TYPE: US carotid duplex BILAT DATE OF EXAM: 06/08/2020 COMPARISON: NONE CLINICAL HISTORY: tia. TIA EXAM MEASUREMENTS: RIGHT: Peak Systolic Velocity (PSV) cm/sec ----- Right CCA: 49.3 ----- Right ICA: 37.7 ----- Right ECA: 56.6 ICA/CCA ratio: 0.8 RIGHT: End Diastole cm/sec ----- Right CCA: 18.8 ----- Right ICA: 14.4 ----- Right ECA: 18.8 LEFT: Peak Systolic Velocity (PSV) cm/sec ----- Left CCA: 58.0 ----- Left ICA: 55.1 ----- Left ECA: 49.3 ICA/CCA ratio: 0.9 LEFT: End Diastole cm/sec ----- Left CCA: 20.2 ----- Left ICA: 20.2 ----- Left ECA: 12.9 VERTEBRALS (direction of flow): Right Vertebral: Antegrade Left Vertebral: Antegrade Rhythm: Normal No significant stenosis seen IMPRESSION: 1. No significant hemodynamic stenosis. Criteria for Assigning % of Stenosis / Diameter reduction (Estimation based on the indirect measurements of the internal carotid artery velocities (ICA PSV). 1. Normal (no stenosis)=ICA PSV < 125 cm/s: ratio < 2.0: ICA EDV<40 cm/s. 2. Less than 50% stenosis=ICA PSV < 125 cm/s: ratio < 2.0: ICA EDV<40 cm/s. 3. 50 to 69% stenosis=ICA PSV of 125 to 230 cm/s: ration 2.0 ? 4.0: ICA EDV 40-100 cm/s. 4. Greater than 70% stenosis to near occlusion= ICA PSV > 230 cm/s: ratio > 4.0: ICA EDV > 100 cm/s. 5. Near occlusion= ICA PSV velocities may be low or undetectable: variable ratio and ICA EDV. 6. Total occlusion=unable to detect flow.
--- NOTE | 2020-06-08 12:00 | HP ---
HISTORY AND PHYSICAL HISTORY OF PRESENT ILLNESS: 74-year-old white female with slurred speech, altered mental status, 74-year-old white woman with seizure, CHF, COPD, pycc-rn-ncmjrpst dementia, hypertension, atrial fibrillation, came in for altered mental status, mild shortness of breath. Speech became slurred. When she came in the emergency room, she got better. Denying any headache, visual disturbance, focal weakness, numbness. Has been taking all her medicines. She has gotten admitted with neurology consult for seizures versus TIA. She was admitted on 05/06/2020 for which she saw Neurology back then. They thought she had a seizure back then. MRI showed no stroke back then on 05/06/2020, CT of the head in the ER which shows cerebral atrophy. EKG shows some PVCs. White count 8.7, glucose 97, calcium 72, magnesium 22. Sodium is normal. PAST MEDICAL HISTORY: Asthma, COPD, dementia, hypertension, memory impairment, renal disease, seizure disorder, vascular disorder, dyslipidemia. SURGERIES: Back surgery, hysterectomy, orthopedic surgery, tonsillectomy, tubal ligation, colonoscopy, EGD, D and C, left hip arthroscopy, right shoulder surgery. FAMILY HISTORY: Mother hypertension. Father coronary artery disease, myocardial infarction. Father [place]. MEDICATIONS: Home medicines: Ferrous sulfate 325 daily, Namenda 5 mg at night, singular 10 mg daily, albuterol HFA 2 puffs q.i.d., multivitamin daily, prednisone 10 daily, Eliquis 5 mg b.i.d., vitamin C 1000 daily, Lopressor 50 b.i.d., Keppra 500 b.i.d., [place] 5/325 q.12 hours. ALLERGIES: LEVAQUIN. PHYSICAL EXAMINATION: Vital signs: Temp 98.4, pulse 70s to 80s, respiratory 18-22, blood pressure is 130-195 over 90s to 120s, O2 saturation 96 to 98%. GENERAL: She is lying in bed, no acute distress. LUNGS are clear. CARDIOVASCULAR: S1, S2. ABDOMEN is soft. She was giving appropriate answers. NEUROLOGIC: Moves 4 extremities. She follows simple commands. Giving appropriate answers. No facial asymmetry. No dysarthria. Good shoulder shrug. LABORATORY DATA: White count 8.7, hemoglobin is 11.5, platelets 386, BUN 12, creatinine 0.81. ASSESSMENT: 1. Rule out transient ischemic attack versus seizure. 2. Hypertension. 3. Diabetes. 4. Atrial fib on Eliquis. 5. Dementia, ieog-wk-aevfrurx. 6. Recent Covid 19 pneumonia. 7. Congestive heart failure. 8. Chronic obstructive pulmonary disease. Wait for Neurology consult. Prognosis guarded. MMODL / IJN: [id number] /
[2020-06-08] MEDS ORDERED: HYDROcodone/APAP 5-325MG 1 EACH TAB PO PRN (13:05)
[2020-06-08 16:57] LABS: Folate, Serum 7.7 ng/mL
[2020-06-08] MEDS ORDERED: MEMANTINE 5 MG TAB PO SCH (21:00)
[2020-06-08] MEDS ORDERED: MONTELUKAST 10 MG TAB PO SCH (21:00)
[2020-06-08] MEDS ORDERED: ATORVASTATIN 20 MG TAB PO SCH (21:00)
[2020-06-09] MEDS ORDERED: HALOPERIDOL LACTATE 5 MG/ML 1 ML VIAL IM ONE (06:17)
[2020-06-09] MEDS: SODIUM CHLORIDE 0.9% 1,000 ML IV SCH (06:51)
[2020-06-09] MEDS: FERROUS SULFATE 325 MG TAB PO SCH (08:08)
[2020-06-09] MEDS: FAMOTIDINE 20 MG TAB PO SCH (08:08)
[2020-06-09] MEDS: APIXABAN 5 MG TAB PO SCH (08:08)
[2020-06-09] MEDS: DOCUSATE 100 MG CAP PO SCH (08:08)
[2020-06-09] MEDS: METOPROLOL TARTRATE 50 MG TAB PO SCH (08:08)
[2020-06-09] MEDS: levETIRAcetam 500 MG TAB PO SCH (08:08)
[2020-06-09] MEDS ORDERED: ASPIRIN 81 MG PO SCH (09:00)
[2020-06-09] MEDS ORDERED: ASPIRIN 325 MG TAB PO SCH (09:00)
[2020-06-09 09:16] LABS: Cholesterol 174 mg/dL (<200); HDL Cholesterol 58 mg/dL (40-60); LDL Cholesterol,Calculated 98 mg/dL (0-99); Triglycerides 90 mg/dL (<150)
--- NOTE | 2020-06-09 11:08 | ECHOF ---
Referral Reason:transient ischemic attack MEASUREMENTS -------- HEIGHT: 165.1 cm WEIGHT: 51.7 kg BP: 137/76 RVIDd: 3.8 cm (< 3.3) IVSd: 1.6 cm (0.6 - 1.1) LVIDd: 4.2 cm (3.9 - 5.3) LVPWd: 1.6 cm (0.6 - 1.1) IVSs: 2.1 cm LVIDs: 2.8 cm LVPWs: 2.3 cm LAESV Index (A-L): 28.77 ml/m Ao Diam: 3.4 cm (2.0 - 3.7) AV Cusp: 1.7 cm (1.5 - 2.6) MV EXCURSION: 12.973 mm (> 18.000) MV EF SLOPE: 26 mm/s (70 - 150) EPSS: 0.5 cm MV E Jonathan: 0.56 m/s MV DecT: 242 ms MV A Jonathan: 0.84 m/s MV E/A Ratio: 0.66 RAP: 5.00 mmHg RVSP: 37.85 mmHg FINDINGS -------- Sinus rhythm. This was a technically adequate study. The left ventricular size is normal. There is moderate concentric left ventricular hypertrophy. O verall left ventricular systolic function is normal with, an EF between 55 - 60 %. The diastolic fi lling pattern is normal for the age of the patient 15.43. The right ventricle is mild to moderately enlarged. Normal LA size by volume 22+/-6 ml/m2. The right atrial size is normal. Interatrial and interventricular septum intact. The aortic valve is trileaflet and appears structurally normal. There is no evidence of aortic regu rgitation. There is no evidence of aortic stenosis. Mild mitral regurgitation is present. Mild tricuspid regurgitation present. There is no evidence of pulmonary hypertension. The right v entricular systolic pressure, as measured by Doppler, is 37.85mmHg. There is no pulmonic regurgitation present. The aortic root size is normal. IVC Not well visulized. There is no pericardial effusion. CONCLUSIONS -------- 1. The left ventricular size is normal. 2. There is moderate concentric left ventricular hypertrophy. 3. Overall left ventricular systolic function is normal with, an EF between 55 - 60 %. 4. The right ventricle is mild to moderately enlarged. 5. Mild mitral regurgitation is present. 6. Mild tricuspid regurgitation present. BEND SORTER: Jenny Lee RDCS
[2020-06-09 16:21] VITALS: RESP 18; TEMP 97.6
[2020-06-09 16:22] VITALS: BP 110/76; PULSE 61
[2020-06-09] MEDS ORDERED: FOLIC ACID 1 MG TAB PO SCH (17:15)
--- NOTE | 2020-06-09 17:23 | P.PN ---
Subjective Progress Note Date: 06/09/20 Patient was seen for a follow-up. Patient denies any new symptoms. Patient was seen by Dr. Suleman Chandler. Please refer to his note for details. Patient came to the hospital for episode of slurred speech and altered mental status. Her blood pressure was high. Patient was diagnosed with possible hypertensive encephalopathy versus TIA. Patient has been on Eliquis 5 mg twice a day. Aspirin 81 mg was added. At present patient offers no complaints. Denies headache. No visual symptoms. Patient's sister was also present today. Telemetry monitoring showing sinus rhythm with sinus bradycardia. No A. fib. Objective - Vital Signs Vital signs: Vital Signs Temp 97.6 F 06/09/20 16:00 Pulse 61 06/09/20 16:00 Resp 18 06/09/20 16:00 BP 110/76 06/09/20 16:00 Pulse Ox 96 06/09/20 16:00 Intake & Output 06/08/20 06/09/20 06/09/20 18:59 06:59 18:59 Intake Total 578 540 Output Total 600 450 Balance -22 -450 540 Weight 51.7 kg Intake: Oral 578 540 Output: Urine 600 450 Other: Voiding Method Diaper Diaper Diaper Incontinent # Voids 2 1 # Bowel Movements 1 - Exam Patient is an elderly Afro-[place]namese female, in no acute distress. Patient is alert and awake. Patient is alert awake, detailed cognitive function testing deferred. Speech and language functions are normal. Attention, concentration and fund of knowledge is adequate. On cranial examination, pupils are round and reacting to light, visual shea are full on confrontation, extraocular muscles are intact with no nystagmus. Face is symmetric, tongue protrudes to the midline. Palatal elevation and sensation normal, hearing is moderately decreased and shoulder shrug normal, facial sensation normal. Shoulder shrug normal. On muscle strength testing, there is no pronator drift and the strength is normal in arms and legs distally and proximally, except right shoulder which is weak from previous rotator cuff. Deep tendon reflexes are symmetric, plantars downgoing. Sensory to touch is equal with no neglect. Cerebellar function showed no ataxia for beawtx-vd-hron testing. No dysdiadochokinesia. Tone and bulk of muscles normal. Gait deferred. On general examination, there is no carotid bruit or murmur, S1-S2 audible. Abdomen is soft nontender. Chest is clear. Peripheral pulses are present. No edema. - Labs CBC & Chem 7: 06/07/20 23:33 06/07/20 23:33 Labs: Abnormal Lab Results - Last 24 Hours (Table) 06/07/20 Range/Units 23:33 Vitamin B12 1052.0 H (200.0-944.0) pg/mL Assessment and Plan Assessment: * Possible TIA * Hypertension * Seizure disorder on Keppra. * Cognitive impairment * Atrial fibrillation on Eliquis * History of Covid 19 in April 2020 * CHF * COPD Plan: * Patient underwent 2-D echo, in which there is moderate concentric LVH. EF is 55-60%. * Carotid Doppler showed no significant stenosis. Antegrade flow in both vertebral arteries. * Lipid panel with cholesterol 174, LDL 98, HDL 58 and triglycerides 90. Continue statins. * Hemoglobin A1c 5.2 on 04/30/2018. B12 1050, folic acid 7.7. Patient started on folate replacement. * Patient started on aspirin 81 mg along with Apixaban 5 mg twice a day by Dr. Suleman Chandler. We will continue the same. * Neurologically clear for discharge.
--- NOTE | 2020-06-09 19:02 | DS ---
DISCHARGE SUMMARY DISCHARGE MEDICATIONS: 1. Aspirin 81 mg daily. 2. Folic acid 1 mg daily. 3. Lipitor 20 mg daily. 4. Iron sulfate 325 mg b.i.d. 5. Singulair 10 mg daily. 6. Multivitamin daily. 7. Lopressor 50 b.i.d. 8. [place] 5/325 every 12 hours p.r.n. 9. Namenda 5 mg at night. 10.Albuterol 2 puffs q.4 hours p.r.n. 11.Eliquis 5 mg b.i.d. 12.Keppra 500 b.i.d. 13.Vitamin C 1000 daily. CONDITION: Stable. PROGNOSIS: Guarded. Ambulate as tolerated. This 74-year-old -[place] female came in with TIA type symptomatology. Neurology cleared her for discharge with unclear reason for altered mental status, whether it was a TIA or mild dehydration; we are unsure. COPD. Atypical chest pain. All cleared from neurology standpoint. They added a couple medications: Folic acid 1 mg daily, Lipitor 20 mg daily and aspirin 81 mg daily. Follow up in office within a week or two. Regular diet. Ambulate as tolerated. MMODL / IJN: [id number] /
== END 2020-06-09 18:06 | disposition home or self-care (01) ==
LOC: EC 23:03 → 3SCARD 06-08 02:03
PROVIDERS: ADMIT Family Medicine; ATTEND Family Medicine
DX: R41.82 Altered mental status, unspecified (principal); R47.81 Slurred speech; F03.90 Unspecified dementia, unspecified severity, without behavioral disturbance, psychotic disturbance, mood disturbance, and anxiety; G40.909 Epilepsy, unspecified, not intractable, without status epilepticus; J44.9 Chronic obstructive pulmonary disease, unspecified; I11.0 Hypertensive heart disease with heart failure; I50.9 Heart failure, unspecified; I67.82 Cerebral ischemia; I48.91 Unspecified atrial fibrillation; E78.5 Hyperlipidemia, unspecified; N28.9 Disorder of kidney and ureter, unspecified; E11.9 Type 2 diabetes mellitus without complications; I99.9 Unspecified disorder of circulatory system; I70.0 Atherosclerosis of aorta; I49.3 Ventricular premature depolarization; R00.1 Bradycardia, unspecified; I08.1 Rheumatic disorders of both mitral and tricuspid valves; I71.9 Aortic aneurysm of unspecified site, without rupture; R41.3 Other amnesia; R07.89 Other chest pain; F41.9 Anxiety disorder, unspecified; Z79.01 Long term (current) use of anticoagulants; Z79.899 Other long term (current) drug therapy; Z88.1 Allergy status to other antibiotic agents; Z87.440 Personal history of urinary (tract) infections; Z87.442 Personal history of urinary calculi; Z91.81 History of falling; Z86.16 Personal history of COVID-19; Z87.01 Personal history of pneumonia (recurrent); Z90.710 Acquired absence of both cervix and uterus; Z98.51 Tubal ligation status; Z96.642 Presence of left artificial hip joint; Z98.890 Other specified postprocedural states; Z82.49 Family history of ischemic heart disease and other diseases of the circulatory system
CPT/HCPCS: 99285; 94640; 94760; 93005; 93306; 97161; 97166; 92523; 83880; 80061; 80053; 82607; 82746; 83605; 83735; 84484; 85025; 85610; 85730; 87636; 71045; 93880; 70450; G0378 ×2

== ENCOUNTER 2020-10-24 14:12 | Inpatient (IN) | payer MEDICARE ==
[2020-10-24 15:02] LABS: Basophils % (A) 0 %; Eosinophils # (A) 0.1 k/uL (0-0.7); Eosinophils % (A) 1 %; HCT 45.6 % (34.0-46.0); HGB 14.6 gm/dL (11.4-16.0); Lymphocytes # (A) 0.8 k/uL (1.0-4.8); Lymphocytes % (A) 5 %; MCHC 32.1 g/dL (31.0-37.0); MCV 99.8 fL (80.0-100.0); Mean Platelet Volume 8.3; Monocytes # (A) 0.8 k/uL (0-1.0); Monocytes % (A) 5 %; Neutrophils # (A) 15.1 k/uL (1.3-7.7); Neutrophils % (A) 89 %; Platelet Count 328 k/uL (150-450); RBC 4.57 m/uL (3.80-5.40); RDW 13.9 % (11.5-15.5); WBC 16.9 k/uL (3.8-10.6)
[2020-10-24] MEDS ORDERED: IPRATROPIUM-ALBUTEROL 3 ML NEB INHALATION STA (15:12)
--- NOTE | 2020-10-24 15:12 | ED ---
Chest Pain HPI - General Chief Complaint: Chest Pain Stated Complaint: Chest Pain,Dizziness,Headache Time Seen by Provider: 10/24/20 14:27 Source: patient, family, RN notes reviewed, old records reviewed Mode of arrival: wheelchair Limitations: no limitations - History of Present Illness Initial Comments: 75-year-old female was just discharged from [facility] that she was diagnosed with bronchitis who presents back with family members with complaints of persistent shortness of breath this seems not to be getting better be getting worse also some intermittent chest pain also headache. She also is reported to have had an abscess type seizure which she has a history of in the past right now she is back to her normal self however. Her doctor was contacted the patient was instructed to come for evaluation. Is no chest pain MD Complaint: chest pain - Related Data Home Medications Medication Instructions Recorded Confirmed Ferrous Sulfate [Iron (65 MG 325 mg PO DAILY 04/27/18 10/24/20 Elemental)] Montelukast Sodium [Singulair] 10 mg PO HS 10/01/19 10/24/20 Albuterol Sulfate [Ventolin HFA] 2 puff INHALATION RT-QID PRN 05/05/20 10/24/20 Memantine [Namenda] 5 mg PO HS 05/05/20 10/24/20 HYDROcodone/APAP 5-325MG [[place] 1 tab PO Q12H PRN 06/08/20 10/24/20 5-325] Azithromycin [Zithromax Z-pack (6 See Taper PO DAILY 10/24/20 10/24/20 tabs)] Furosemide [Lasix] 20 mg PO DAILY 10/24/20 10/24/20 Metoprolol Succinate (ER) [Toprol 50 mg PO DAILY 10/24/20 10/24/20 Xl] Omeprazole 20 mg PO DAILY 10/24/20 10/24/20 Potassium Chloride [Potassium 8 meq PO DAILY 10/24/20 10/24/20 Chloride ER] Previous Rx's Medication Instructions Recorded Apixaban [Eliquis] 5 mg PO BID #60 tab 05/06/20 Allergies Allergy/AdvReac Type Severity Reaction Status Date / Time levofloxacin Allergy Swelling Verified 10/24/20 15:39 lisinopril AdvReac Unknown Verified 10/24/20 15:39 Review of Systems ROS Statement: Those systems with pertinent positive or pertinent negative responses have been documented in the HPI. ROS Other: All systems not noted in ROS Statement are negative. Past Medical History Past Medical History: Asthma, COPD, Dementia, Hyperlipidemia, Hypertension, Memory Impairment, Renal Disease, Seizure Disorder, Vascular Disorder Additional Past Medical History / Comment(s): Short term memory loss, aortic aneurysm, irregular heart beat in the past-pt/jeison cannot recall type, seizure once- 06/2019, UTI/cystitis, nephrolithiasis, recently told she may have "kidney function" problem, falls, L hand currently swollen-pt/jeison do not know cause. History of Any Multi-Drug Resistant Organisms: None Reported Past Surgical History: Back Surgery, Hysterectomy, Orthopedic Surgery, Tonsillectomy, Tubal Ligation Additional Past Surgical History / Comment(s): D&C, EGD, colonoscopy, L hip hemiarthroplasty d/t fracure, R shoulder surgery d/t fracture-has hardware Past Anesthesia/Blood Transfusion Reactions: No Reported Reaction, Motion Sick ness Past Psychological History: Anxiety Smoking Status: Never smoker Past Alcohol Use History: None Reported Past Drug Use History: None Reported - Past Family History Mother Family Medical History: Hypertension Father Family Medical History: Coronary Artery Disease (CAD), Myocardial Infarction ([place]) Additional Family Medical History / Comment(s): Father of a [place] in his 70s. General Exam - General Exam Comments Initial Comments: Physical well-developed sec appearing female who is awake alert oriented 3 Limitations: no limitations General appearance: alert, in no apparent distress Head exam: Present: atraumatic, normocephalic, normal inspection Eye exam: Present: normal appearance, PERRL, EOMI. Absent: scleral icterus, conjunctival injection, periorbital swelling ENT exam: Present: normal exam, mucous membranes moist Neck exam: Present: normal inspection. Absent: tenderness, meningismus, lymphadenopathy Respiratory exam: Present: decreased breath sounds. Absent: respiratory distress, wheezes, rales, rhonchi, stridor Cardiovascular Exam: Present: regular rate, normal rhythm, normal heart sounds. Absent: systolic murmur, diastolic murmur, rubs, gallop, clicks GI/Abdominal exam: Present: soft, normal bowel sounds. Absent: distended, tenderness, guarding, rebound, rigid Extremities exam: Present: normal inspection, full ROM, normal capillary refill. Absent: tenderness, pedal edema, joint swelling, calf tenderness Back exam: Present: normal inspection Neurological exam: Present: alert, oriented X3, CN II-XII intact Psychiatric exam: Present: normal affect, normal mood Skin exam: Present: warm, dry, intact, normal color. Absent: rash Course Vital Signs 10/24/20 10/24/20 10/24/20 14:16 15:20 16:20 Temperature 98 F Pulse Rate 76 75 75 Respiratory 18 18 18 Rate Blood Pressure 131/80 106/85 100/79 O2 Sat by Pulse 100 100 100 Oximetry 10/24/20 10/24/20 16:46 16:55 Temperature Pulse Rate 80 80 Respiratory Rate Blood Pressure O2 Sat by Pulse Oximetry Chest Pain MDM - MDM Imaging reviewed no definite acute findings. I did discuss findings the patient family members as well as with Dr. Nguyen patient be admitted cardiology will be consulted. Patient was noted have an elevated lipase level also evidence of renal insufficiency and dehydration. Disposition Clinical Impression: Atypical chest pain, Bronchitis, Hypokalemia, Pancreatitis, Dehydration Disposition: ADMITTED IP TO THIS [facility] Condition: Fair Referrals: Lalo Nguyen MD [Primary Care Provider] - 1-2 days
[2020-10-24 15:15] LABS: Partial Thromboplastin Time 21.9 sec (22.0-30.0); Prothrombin Time 10.7 sec (9.0-12.0)
[2020-10-24 15:16] LABS: Calcium 10.8 mg/dL (8.4-10.2); Magnesium 2.7 mg/dL (1.6-2.3); Total Bilirubin 0.6 mg/dL (0.2-1.3); Total Protein 6.7 g/dL (6.3-8.2)
--- NOTE | 2020-10-24 15:29 | XR ---
EXAMINATION TYPE: XR chest 2V DATE OF EXAM: 10/24/2020 COMPARISON: 06/07/2020 TECHNIQUE: PA and lateral views submitted. HISTORY: Chest pain FINDINGS: The lungs are clear and there is no pneumothorax, pleural effusion, or focal pneumonia. Atheroscler otic change of the aorta. There is ectasia of the aorta. Hyperinflation of the lungs. Chronic arthrop athy of the right shoulder correlate for acro ostial lysis. No interstitial edema. Underlying COPD no janeen. Surgical clips in the abdomen. IMPRESSION: 1. No acute process. Correlate for COPD. Findings suspicious for aortic aneurysm correlate with CT sc an as clinically warranted.
[2020-10-24] MEDS ORDERED: NITROGLYCERIN SL TABS 0.4 MG TAB SUBLINGUAL PRN (17:11)
[2020-10-24] MEDS ORDERED: HYDROcodone/APAP 5-325MG 1 EACH TAB PO PRN (17:13)
[2020-10-24] MEDS ORDERED: POTASSIUM CHLORIDE ER 10 MEQ TAB.ER.PRT PO STA (17:16)
[2020-10-24] MEDS: SODIUM CHLORIDE 0.9% 1,000 ML IV SCH (17:40)
[2020-10-24] MEDS: APIXABAN 5 MG TAB PO SCH (21:30)
[2020-10-24] MEDS: MONTELUKAST 10 MG TAB PO SCH (21:30)
[2020-10-24] MEDS: MEMANTINE 5 MG TAB PO SCH (23:43)
[2020-10-25] MEDS ORDERED: ASPIRIN 325 MG TAB PO SCH (09:00)
[2020-10-25] MEDS ORDERED: METOPROLOL SUCCINATE (ER) 50 MG TAB.ER.24H PO SCH (09:00)
[2020-10-25 09:10] LABS: Basophils % (A) 0 %; Eosinophils # (A) 0.1 k/uL (0-0.7); Eosinophils % (A) 1 %; HGB 12.8 gm/dL (11.4-16.0); Lymphocytes # (A) 2.2 k/uL (1.0-4.8); Lymphocytes % (A) 25 %; MCH 31.7 pg (25.0-35.0); MCHC 31.2 g/dL (31.0-37.0); MCV 101.5 fL (80.0-100.0); Macrocytosis Slight; Mean Platelet Volume 8.6; Monocytes # (A) 0.6 k/uL (0-1.0); Monocytes % (A) 6 %; Neutrophils # (A) 5.9 k/uL (1.3-7.7); Neutrophils % (A) 67 %; Platelet Count 234 k/uL (150-450); RBC 4.03 m/uL (3.80-5.40); RDW 13.7 % (11.5-15.5); WBC 8.8 k/uL (3.8-10.6)
[2020-10-25 09:20] LABS: Magnesium 2.6 mg/dL (1.6-2.3); Potassium 3.7 mmol/L (3.5-5.1)
[2020-10-25] MEDS: SODIUM CHLORIDE 0.9% 1,000 ML IV SCH ×2 (10:01→14:03)
[2020-10-25] MEDS: POTASSIUM CHLORIDE ER 10 MEQ TAB.ER.PRT PO SCH (10:02)
[2020-10-25] MEDS: FERROUS SULFATE 325 MG TAB PO SCH (10:02)
[2020-10-25] MEDS: FUROSEMIDE 20 MG TAB PO SCH (10:02)
[2020-10-25] MEDS: PANTOPRAZOLE 40 MG TABLET PO SCH (10:02)
[2020-10-25] MEDS: AZITHROMYCIN 250 MG TAB PO SCH (10:02)
[2020-10-25] MEDS: APIXABAN 5 MG TAB PO SCH ×2 (10:03→20:52)
--- NOTE | 2020-10-25 11:51 | HP ---
HISTORY AND PHYSICAL HISTORY: A 75-year-old white female diagnosed with bronchitis, COPD exacerbation and shortness of breath. CT scan of the chest at the other hospital was negative. She was admitted. She was given IV fluids and IV steroids for 2 to 3 days. Her breathing greatly improved, at which time we sent her back home. She came into the hospital due to worsening shortness of breath. MEDICATIONS: Home medications include Singulair, Ventolin HFA, iron, Namenda, [place], Z-Rei, Lasix Toprol-XL, omeprazole, potassium chloride. ALLERGIES: Levaquin, lisinopril. REVIEW OF SYSTEMS: A 14-point review of systems is otherwise negative. PAST MEDICAL HISTORY: Asthma, COPD, dementia, dyslipidemia, hypertension, memory impairment, renal disease, seizure disorder, vascular disorder. SURGERIES: Back surgery, hysterectomy, orthopedic surgery, tonsillectomy, tubal ligation. FAMILY HISTORY: Mother hypertension. Father myocardial infarction. PHYSICAL EXAM: Well exam, no acute distress. LUNGS: Decreased breath sounds x4, scattered rhonchi. CARDIOVASCULAR: S1, S2. GI: Soft. EXTREMITIES: No cyanosis, clubbing, edema. NEUROLOGIC: Cranial nerves intact. PSYCH: Fair mood and affect. NEUROLOGIC: Normal. VITALS: Blood pressure 100-130 over 70s to 80s, O2 respiratory 16 to 18, O2 near 100. ASSESSMENT: Atypical chest pain. Cardiology is consulted. Rule out myocardial infarction, bronchitis, hypokalemia, pancreatitis, dehydration, elevated BUN and creatinine. Get surgical consult. Prognosis guarded. MMODL / IJN: [id number] /
--- NOTE | 2020-10-25 13:53 | US ---
EXAMINATION TYPE: US abdomen complete DATE OF EXAM: 10/25/2020 COMPARISON: NONE CLINICAL HISTORY: pancreatitis. EXAM MEASUREMENTS: Liver Length: 13.1 cm Gallbladder Wall: not seen CBD: 0.4 cm Spleen: 7.7 cm Right Kidney: 8.2 x 3.7 x 4.1 cm Left Kidney: 9.6 x 5.1 x 5.4 cm Pancreas: Included portion of the pancreas is within normal. Liver: wnl Gallbladder: Status post cholecystectomy. No fluid collections seen in the gallbladder fossa. Evidence for sonographic Srivastava's sign: No CBD: wnl Spleen: wnl Right Kidney: No hydronephrosis or masses seen, kidneys are echogenic bilaterally. Left Kidney: No hydronephrosis or masses seen Upper IVC: Normal caliber Abd Aorta: Normal caliber The liver is homogenous. There is no evidence of cholelithiasis. Common bile duct is unremarkable. The visualized portions of the pancreas are homogenous. The spleen is unremarkable. Kidneys are sy mmetric and free of hydronephrosis. No renal lesions are seen. IMPRESSION: 1. Unremarkable sonographic evaluation of the abdomen. 2. Included portions of the pancreas are within normal limit, no peripancreatic fluid collection arou nd the included portions. Consider enhanced CT if there is clinical concern for pancreatitis.
--- NOTE | 2020-10-25 14:53 | P.CRDCN ---
History of Present Illness History of present illness: HISTORY OF PRESENTING ILLNESS This is a pleasant 75-year-old with past medical history significant for chronic kidney disease, hypertension, dementia, paroxysmal atrial fibrillation, recent COVID-19 infection spring 2020 who presents secondary chest pain. Patient apparently had been at [facility] recently and was diagnosed with bronchitis however had persistent shortness breath along with chest pain and headaches. She also apparently was not acting her normal self and therefore family brought patient in to be evaluated. Initial EKG showed A. fib with RVR with heart rate 130s however repeat EKG showed improvement with normal sinus rhythm. EKG showed nonspecific ST depressions. She is unclear on her timing and cannot recall much of her history however appears the chest pain improved while in the emergency department. She cannot recall if she has had other similar chest pain in the past. 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 Most recent echo from 06/09/2020 shows EF 55-60%, mild mitral regurgitation, moderate LVH. Blood work also showed white blood cell count 16.9, hemoglobin 14.6, d-dimer less than 0.17, sodium 142, potassium 3.0, creat inine 1.22. Troponin 0.03, 0.06, 0.06, proton BP 1270 and lipase was 999. REVIEW OF SYSTEMS At the time of my exam: CONSTITUTIONAL: Denies fever or chills. CARDIOVASCULAR: +chest pain, +shortness of breath, no orthopnea, PND or palpitations. RESPIRATORY: Denies cough. GASTROINTESTINAL: Denies abdominal pain, diarrhea, constipation, nausea or vomiting. MUSCULOSKELETAL: Denies myalgias. NEUROLOGIC: Denies numbness, tingling or weakness. ENDOCRINE: Denies fatigue, weight change, polydipsia or polyurina. GENITOURINARY: Denies burning, hematuria or urgency with micturation. HEMATOLOGIC: Denies history of anemia or bleeding. PHYSICAL EXAMINATION Vital signs reviewed. CONSTITUTIONAL: No apparent distress. HEENT: Head is normocephalic. Pupils are equal, round. Sclerae anicteric. Mucous membranes of the mouth are moist. No JVD. No carotid bruit. CHEST EXAMINATION: Lungs are clear to auscultation. No chest wall tenderness is noted on palpation or with deep breathing. HEART EXAMINATION: Regular rate and rhythm. S1, S2 heard. No murmurs, gallops or rub. ABDOMEN: Soft, nontender. Positive bowel sounds. EXTREMITIES: 2+ peripheral pulses, no lower extremity edema and no calf tenderness. NEUROLOGIC EXAMINATION: Patient is awake, alert and oriente, poor recall ASSESSMENT 1. Non-STEMI, likely related to A. fib with RVR 2. A. fib with RVR 3. Hypertension 4. Chronic kidney disease 5. Dementia 6. Previous COVID-19 infection 7. Recent bronchitis at [facility] Patient is somewhat poor historian and appears her shortness of breath and chest pain may likely be related to A. fib with RVR on presentation which improve shortly after presenting to emergency department. Given she appears to be symptomatic from her A. fib we will attempt rhythm control with amiodarone. We will check limited repeat 2-D echo and if ejection fraction unchanged would treat conservatively with medical therapy. We will start amiodarone and continue metoprolol however monitor for any bradycardia. If bradycardia occurs decrease beta gabriel. Likely DC next 24-48 hours if echo unchanged and tolerating medications. Stop fold dose aspirin and only continue Eliquis given bleeding risk. Past Medical History Past Medical History: Asthma, COPD, Dementia, Hyperlipidemia, Hypertension, Memory Impairment, Renal Disease, Seizure Disorder, Vascular Disorder Additional Past Medical History / Comment(s): Short term memory loss, aortic aneurysm, irregular heart beat in the past-pt/jeison cannot recall type, seizure once- 06/2019, UTI/cystitis, nephrolithiasis, recently told she may have "kidney function" problem, falls, L hand currently swollen-pt/jeison do not know cause. History of Any Multi-Drug Resistant Organisms: None Reported Past Surgical History: Back Surgery, Hysterectomy, Orthopedic Surgery, Tonsillectomy, Tubal Ligation Additional Past Surgical History / Comment(s): D&C, EGD, colonoscopy, L hip hemiarthroplasty d/t fracure, R shoulder surgery d/t fracture-has hardware Past Anesthesia/Blood Transfusion Reactions: No Reported Reaction, Motion Sickness Past Psychological History: Anxiety Additional Psychological History / Comment(s): Pt resides with her jeison, Analisa. She uses a cane or walker to ambulate. Her jeison is her caregiver, she assists pt with bathing/dressin and manages her medications and also drives her to [employer]. Smoking Status: Never smoker Past Alcohol Use History: None Reported Past Drug Use History: None Reported - Past Family History Mother Family Medical History: Hypertension Father Family Medical History: Coronary Artery Disease (CAD), Myocardial Infarction ([place]) Additional Family Medical History / Comment(s): Father of a [place] in his 70s. Medications and Allergies Home Medications Medication Instructions Recorded Confirmed Type Ferrous Sulfate [Iron (65 MG 325 mg PO DAILY 04/27/18 10/24/20 History Elemental)] Montelukast Sodium [Singulair] 10 mg PO HS 10/01/19 10/24/20 History Albuterol Sulfate [Ventolin HFA] 2 puff INHALATION RT-QID PRN 05/05/20 10/24/20 History Memantine [Namenda] 5 mg PO HS 05/05/20 10/24/20 History Apixaban [Eliquis] 5 mg PO BID #60 tab 05/06/20 10/24/20 Rx HYDROcodone/APAP 5-325MG [[place] 1 tab PO Q12H PRN 06/08/20 10/24/20 History 5-325] Azithromycin [Zithromax Z-pack (6 See Taper PO DAILY 10/24/20 10/24/20 History tabs)] Furosemide [Lasix] 20 mg PO DAILY 10/24/20 10/24/20 History Metoprolol Succinate (ER) [Toprol 50 mg PO DAILY 10/24/20 10/24/20 History Xl] Omeprazole 20 mg PO DAILY 10/24/20 10/24/20 History Potassium Chloride [Potassium 8 meq PO DAILY 10/24/20 10/24/20 History Chloride ER] Allergies Allergy/AdvReac Type Severity Reaction Status Date / Time levofloxacin Allergy Swelling Verified 10/24/20 15:39 lisinopril AdvReac Unknown Verified 10/24/20 15:39 Physical Exam Vitals: Vital Signs Temp Pulse Pulse Pulse Resp BP BP 10/25/20 12:52 98 F 61 17 10/25/20 08:51 97.8 F 57 L 16 10/25/20 04:00 137/93 10/25/20 02:00 64 22 10/25/20 00:00 98.5 F 64 22 128/74 10/24/20 21:36 98 18 113/76 10/24/20 19:00 80 18 10/24/20 18:00 80 18 10/24/20 17:00 80 18 112/86 10/24/20 16:55 80 10/24/20 16:46 80 10/24/20 16:20 75 18 100/79 10/24/20 15:20 75 18 106/85 BP Pulse Ox 10/25/20 12:52 134/82 99 10/25/20 08:51 140/84 99 10/25/20 04:00 10/25/20 02:00 10/25/20 00:00 10/24/20 21:36 98 10/24/20 19:00 100 10/24/20 18:00 100 10/24/20 17:00 100 10/24/20 16:55 10/24/20 16:46 10/24/20 16:20 100 10/24/20 15:20 100 Intake and Output 10/24/20 10/25/20 10/25/20 22:59 06:59 14:59 Intake Total 120 Balance 120 Intake: Oral 120 Other: # Voids 1 1 Weight 66 kg Results 10/25/20 08:24 10/25/20 08:24 Cardiac Enzymes 10/24/20 10/24/20 10/24/20 Range/Units 14:47 14:47 19:38 AST 23 (14-36) U/L Troponin I 0.030 0.063 H* (0.000-0.034) ng/mL 10/24/20 Range/Units 22:32 AST (14-36) U/L Troponin I 0.065 H* (0.000-0.034) ng/mL Coagulation 10/24/20 Range/Units 14:47 PT 10.7 (9.0-12.0) sec APTT 21.9 L (22.0-30.0) sec CBC 10/24/20 10/25/20 Range/Units 14:47 08:24 WBC 16.9 H 8.8 (3.8-10.6) k/uL RBC 4.57 4.03 (3.80-5.40) m/uL Hgb 14.6 12.8 (11.4-16.0) gm/dL Hct 45.6 41.0 (34.0-46.0) % Plt Count 328 234 (150-450) k/uL Comprehensive Metabolic Panel 10/24/20 10/25/20 Range/Units 14:47 08:24 Sodium 142 (137-145) mmol/L Potassium 3.0 L 3.7 (3.5-5.1) mmol/L Chloride 107 (98-107) mmol/L Carbon Dioxide 24 (22-30) mmol/L BUN 41 H (7-17) mg/dL Creatinine 1.22 H (0.52-1.04) mg/dL Glucose 110 H (74-99) mg/dL Calcium 10.8 H (8.4-10.2) mg/dL AST 23 (14-36) U/L ALT 16 (4-34) U/L Alkaline Phosphatase 72 (38-126) U/L Total Protein 6.7 (6.3-8.2) g/dL Albumin 4.0 (3.5-5.0) g/dL Current Medications Generic Name Dose Route Start Last Admin Trade Name Freq PRN Reason Stop Dose Admin Hydrocodone Bitart/Acetaminophen 1 each 10/24/20 17:13 Hydrocodone/Apap 5-325mg 1 Each Tab PO Q12H PRN Pain Apixaban 5 mg 10/24/20 21:00 10/25/20 10:03 Apixaban 5 Mg Tab PO 5 mg BID MACI Administration Protocol Aspirin 325 mg 10/25/20 09:00 10/25/20 10:02 Aspirin 325 Mg Tab PO 325 mg DAILY MACI Administration Azithromycin 250 mg 10/25/20 09:00 10/25/20 10:02 Azithromycin 250 Mg Tab PO 250 mg DAILY MACI Administration Ferrous Sulfate 325 mg 10/25/20 09:00 10/25/20 10:02 Ferrous Sulfate 325 Mg Tab PO 325 mg DAILY MACI Administration Furosemide 20 mg 10/25/20 09:00 10/25/20 10:02 Furosemide 20 Mg Tab PO 20 mg DAILY MACI Administration Sodium Chloride 1,000 mls @ 100 mls/hr 10/24/20 17:15 10/25/20 14:03 Saline 0.9% IV Not Given .Q10H MACI Memantine 5 mg 10/24/20 21:00 10/24/20 23:43 Memantine 5 Mg Tab PO 5 mg HS MACI Administration Metoprolol Succinate 50 mg 10/25/20 09:00 10/25/20 10:02 Metoprolol Succinate (Er) 50 Mg Tab.Er.24h PO 50 mg DAILY MACI Administration Montelukast Sodium 10 mg 10/24/20 21:00 10/24/20 21:30 Montelukast 10 Mg Tab PO 10 mg HS MACI Administration Nitroglycerin 0.4 mg 10/24/20 17:11 Nitroglycerin Sl Tabs 0.4 Mg Tab SUBLINGUAL Q5M PRN Chest Pain Pantoprazole Sodium 40 mg 10/25/20 07:30 10/25/20 10:02 Pantoprazole 40 Mg Tablet PO 40 mg DAILY@0730 MACI Administration Potassium Chloride 10 meq 10/25/20 09:00 10/25/20 10:02 Potassium Chloride Er 10 Meq Tab.Er.Prt PO 10 meq DAILY MACI Administration Intake and Output 10/24/20 10/25/20 10/25/20 22:59 06:59 14:59 Intake Total 120 Balance 120 Intake: Oral 120 Other: # Voids 1 1 Weight 66 kg 10/25/20 08:24 10/25/20 08:24
[2020-10-25 19:04] LABS: Chol/HDL Ratio 3.38; LDL Cholesterol,Calculated 154.6 mg/dL (0.0-131.0); VLDL Calculation 40.4 mg/dL (5.00-40.00)
[2020-10-25] MEDS: AMIODARONE 200 MG TAB PO SCH (20:52)
[2020-10-25] MEDS: MONTELUKAST 10 MG TAB PO SCH (20:52)
[2020-10-25] MEDS: MEMANTINE 5 MG TAB PO SCH (20:55)
[2020-10-25] MEDS ORDERED: LORazepam 1 MG TAB PO PRN (22:03)
[2020-10-25] MEDS ORDERED: LORazepam 0.5 MG TAB PO PRN (22:07)
[2020-10-26] MEDS: SODIUM CHLORIDE 0.9% 1,000 ML IV SCH ×3 (02:59→17:08)
[2020-10-26] MEDS: PANTOPRAZOLE 40 MG TABLET PO SCH (06:15)
[2020-10-26] MEDS: POTASSIUM CHLORIDE ER 10 MEQ TAB.ER.PRT PO SCH (09:19)
[2020-10-26] MEDS: FERROUS SULFATE 325 MG TAB PO SCH (09:20)
[2020-10-26] MEDS: AMIODARONE 200 MG TAB PO SCH ×2 (09:20→20:21)
[2020-10-26] MEDS: FUROSEMIDE 20 MG TAB PO SCH (09:20)
[2020-10-26] MEDS: METOPROLOL SUCCINATE (ER) 25 MG TAB.ER.24H PO SCH (09:20)
[2020-10-26] MEDS: APIXABAN 5 MG TAB PO SCH ×2 (09:20→20:21)
[2020-10-26] MEDS: AZITHROMYCIN 250 MG TAB PO SCH (09:22)
--- NOTE | 2020-10-26 11:55 | P.GSCN ---
History of Present Illness Consult date: 10/26/20 Reason for Consult: Possible pancreatitis History of present illness: This 85-year-old female who underwent workup for epigastric and chest pain. Patient's also was noted to have elevated lipase of 999. Patient was seen by cardiology. The bleeding she may have had a cardiac event related to her atrial fibrillation rapid ventricular rate. Patient states pain today that her abdominal pain is totally resolved. Past Medical History Past Medical History: Asthma, COPD, Dementia, Hyperlipidemia, Hypertension, Memory Impairment, Renal Disease, Seizure Disorder, Vascular Disorder Additional Past Medical History / Comment(s): Short term memory loss, aortic aneurysm, irregular heart beat in the past-pt/jeison cannot recall type, seizure once- 06/2019, UTI/cystitis, nephrolithiasis, recently told she may have "kidney function" problem, falls, L hand currently swollen-pt/jeison do not know cause. History of Any Multi-Drug Resistant Organisms: None Reported Past Surgical History: Back Surgery, Hysterectomy, Orthopedic Surgery, To nsillectomy, Tubal Ligation Additional Past Surgical History / Comment(s): D&C, EGD, colonoscopy, L hip hemiarthroplasty d/t fracure, R shoulder surgery d/t fracture-has hardware Past Anesthesia/Blood Transfusion Reactions: No Reported Reaction, Motion Sickness Past Psychological History: Anxiety Additional Psychological History / Comment(s): Pt resides with her jeison, Analisa. She uses a cane or walker to ambulate. Her jeison is her caregiver, she assists pt with bathing/dressin and manages her medications and also drives her to appts. Smoking Status: Never smoker Past Alcohol Use History: None Reported Past Drug Use History: None Reported - Past Family History Mother Family Medical History: Hypertension Father Family Medical History: Coronary Artery Disease (CAD), Myocardial Infarction ([place]) Additional Family Medical History / Comment(s): Father of a [place] in his 70s. Medications and Allergies Home Medications Medication Instructions Recorded Confirmed Type Ferrous Sulfate [Iron (65 MG 325 mg PO DAILY 04/27/18 10/24/20 History Elemental)] Montelukast Sodium [Singulair] 10 mg PO HS 10/01/19 10/24/20 History Albuterol Sulfate [Ventolin HFA] 2 puff INHALATION RT-QID PRN 05/05/20 10/24/20 History Memantine [Namenda] 5 mg PO HS 05/05/20 10/24/20 History Apixaban [Eliquis] 5 mg PO BID #60 tab 05/06/20 10/24/20 Rx HYDROcodone/APAP 5-325MG [[place] 1 tab PO Q12H PRN 06/08/20 10/24/20 History 5-325] Azithromycin [Zithromax Z-pack (6 See Taper PO DAILY 10/24/20 10/24/20 History tabs)] Furosemide [Lasix] 20 mg PO DAILY 10/24/20 10/24/20 History Metoprolol Succinate (ER) [Toprol 50 mg PO DAILY 10/24/20 10/24/20 History Xl] Omeprazole 20 mg PO DAILY 10/24/20 10/24/20 History Potassium Chloride [Potassium 8 meq PO DAILY 10/24/20 10/24/20 History Chloride ER] Allergies Allergy/AdvReac Type Severity Reaction Status Date / Time levofloxacin Allergy Swelling Verified 10/24/20 15:39 lisinopril AdvReac Unknown Verified 10/24/20 15:39 Surgical - Exam Vital Signs Temp Pulse Resp BP Pulse Ox 98 F 76 18 131/80 100 10/24/20 14:16 10/24/20 14:16 10/24/20 14:16 10/24/20 14:16 10/24/20 14:16 - General well developed, well nourished, no distress - Eyes PERRL - ENT normal pinna - Neck no masses - Respiratory normal expansion - Cardiovascular Rhythm: regular - Abdomen Abdomen: soft, non tender Results - Labs 10/25/20 08:24 10/25/20 08:24 Abnormal Lab Results - Last 24 Hours (Table) 10/24/20 Range/Units 01:51 Triglycerides 202.0 H (0.0-149.0) mg/dL Cholesterol 277 H (0-200) mg/dL LDL Cholesterol, Calc 154.6 H (0.0-131.0) mg/dL VLDL Cholesterol, Calc 40.40 H (5.00-40.00) mg/dL HDL Cholesterol 82.0 H (40.0-60.0) mg/dL Diabetes panel 10/24/20 Range/Units 01:51 Triglycerides 202.0 H (0.0-149.0) mg/dL HDL Cholesterol 82.0 H (40.0-60.0) mg/dL Assessment and Plan Assessment: No evidence of hepatitis. Patient will undergo further workup and treatment by cardiology.
[2020-10-26] MEDS: MEMANTINE 5 MG TAB PO SCH (20:20)
[2020-10-26] MEDS: MONTELUKAST 10 MG TAB PO SCH (20:20)
--- NOTE | 2020-10-26 21:09 | P.PN ---
Subjective HISTORY OF PRESENTING ILLNESS This is a pleasant 75-year-old with past medical history significant for chronic kidney disease, hypertension, dementia, paroxysmal atrial fibrillation, recent COVID-19 infection spring 2020 who presents secondary chest pain. Patient apparently had been at [facility] recently and was diagnosed with bronchitis however had persistent shortness breath along with chest pain and headaches. She also apparently was not acting her normal self and therefore family brought patient in to be evaluated. Initial EKG showed A. fib with RVR with heart rate 130s however repeat EKG showed improvement with normal sinus rhythm. EKG showed nonspecific ST depressions. She is unclear on her timing and cannot recall much of her history however appears the chest pain improved while in the emergency department. She cannot recall if she has had other similar chest pain in the past. She has not believe she is seen a pattern gater in the past. Most recent echo from 06/09/2020 shows EF 55-60%, mild mitral regurgitation, moderate LVH. Blood work also showed white blood cell count 16.9, hemoglobin 14.6, d-dimer less than 0.17, sodium 142, potassium 3.0, creatinine 1.22. Troponin 0.03, 0.06, 0.06, proton BP 1270 and lipase was 999. 10/26 Patient seen and examined. Patient denies any further abdominal pain. He st ates she is not having any chest pain however does still have some dyspnea. REVIEW OF SYSTEMS At the time of my exam: CONSTITUTIONAL: Denies fever or chills. CARDIOVASCULAR: +chest pain, +shortness of breath, no orthopnea, PND or palpitations. RESPIRATORY: Denies cough. GASTROINTESTINAL: Denies abdominal pain, diarrhea, constipation, nausea or vomiting. MUSCULOSKELETAL: Denies myalgias. NEUROLOGIC: Denies numbness, tingling or weakness. ENDOCRINE: Denies fatigue, weight change, polydipsia or polyurina. GENITOURINARY: Denies burning, hematuria or urgency with micturation. HEMATOLOGIC: Denies history of anemia or bleeding. PHYSICAL EXAMINATION Vital signs reviewed. CONSTITUTIONAL: No apparent distress. HEENT: Head is normocephalic. Pupils are equal, round. Sclerae anicteric. Mucous membranes of the mouth are moist. No JVD. No carotid bruit. CHEST EXAMINATION: Lungs are clear to auscultation. No chest wall tenderness is noted on palpation or with deep breathing. HEART EXAMINATION: Regular rate and rhythm. S1, S2 heard. No murmurs, gallops or rub. ABDOMEN: Soft, nontender. Positive bowel sounds. EXTREMITIES: 2+ peripheral pulses, no lower extremity edema and no calf tenderness. NEUROLOGIC EXAMINATION: Patient is awake, alert and oriente, poor recall ASSESSMENT 1. Non-STEMI, likely related to A. fib with RVR 2. A. fib with RVR 3. Hypertension 4. Chronic kidney disease 5. Dementia 6. Previous COVID-19 infection 7. Recent bronchitis at [facility] PLAN Shortness breath likely related to A. fib and she currently remains in sinus rhythm. We will check 2-D echo for left ventricular function and rule out any structural heart disease. Continue with rhythm control with amiodarone. Continue metoprolol however monitor for any bradycardia. Continue to hold low- dose aspirin and only Eliquis for anticoagulation. Objective - Vital Signs Vital signs: Vital Signs Temp 98.0 F 10/26/20 20:18 Pulse 57 L 10/26/20 20:18 Resp 15 10/26/20 20:18 BP 117/74 10/26/20 20:18 Pulse Ox 97 10/26/20 20:18 Intake & Output 10/26/20 10/26/20 10/27/20 06:59 18:59 06:59 Weight 65.5 kg Other: # Voids 2 2 - Labs CBC & Chem 7: 10/25/20 08:24 10/25/20 08:24 Labs: Abnormal Lab Results - Last 24 Hours (Table) 10/26/20 Range/Units 14:55 Lipase 396 H (23-300) U/L
[2020-10-27] MEDS: SODIUM CHLORIDE 0.9% 1,000 ML IV SCH (06:29)
[2020-10-27] MEDS: PANTOPRAZOLE 40 MG TABLET PO SCH (06:30)
[2020-10-27] MEDS: AMIODARONE 200 MG TAB PO SCH ×2 (08:42→20:12)
[2020-10-27] MEDS: FERROUS SULFATE 325 MG TAB PO SCH (08:42)
[2020-10-27] MEDS: FUROSEMIDE 20 MG TAB PO SCH (08:43)
[2020-10-27] MEDS: METOPROLOL SUCCINATE (ER) 25 MG TAB.ER.24H PO SCH (08:43)
[2020-10-27] MEDS: APIXABAN 5 MG TAB PO SCH ×2 (08:43→20:12)
[2020-10-27] MEDS: AZITHROMYCIN 250 MG TAB PO SCH (08:43)
[2020-10-27] MEDS: POTASSIUM CHLORIDE ER 10 MEQ TAB.ER.PRT PO SCH (08:43)
--- NOTE | 2020-10-27 11:23 | P.PN ---
Subjective HISTORY OF PRESENTING ILLNESS This is a pleasant 75-year-old with past medical history significant for chronic kidney disease, hypertension, dementia, paroxysmal atrial fibrillation, recent COVID-19 infection spring 2020 who presents secondary chest pain. Patient apparently had been at [facility] recently and was diagnosed with bronchitis however had persistent shortness breath along with chest pain and headaches. She also apparently was not acting her normal self and therefore family brought patient in to be evaluated. Initial EKG showed A. fib with RVR with heart rate 130s however repeat EKG showed improvement with normal sinus rhythm. EKG showed nonspecific ST depressions. She is unclear on her timing and cannot recall much of her history however appears the chest pain improved while in the emergency department. She cannot recall if she has had other similar chest pain in the past. She has not believe she is seen a licensed audiologist in the past. Most recent echo from 06/09/2020 shows EF 55-60%, mild mitral regurgitation, moderate LVH. Blood work also showed white blood cell count 16.9, hemoglobin 14.6, d-dimer less than 0.17, sodium 142, potassium 3.0, creatinine 1.22. Troponin 0.03, 0.06, 0.06, proton BP 1270 and lipase was 999. 10/27/2020 patient was seen and examined sitting up resting comfortably in the recliner. She denies symptoms of chest pain, shortness of breath, dizziness or palpitations. She currently is maintaining sinus rhythm with heart rate in the 70s. Blood pressure 111/79. Currently maintained on toprol 25 mg daily, amiodarone 400 mg twice a day and Eliquis 5 mg twice a day. PHYSICAL EXAMINATION CONSTITUTIONAL: No apparent distress. HEENT: Head is normocephalic. Pupils are equal, round. Sclerae anicteric. Mucous membranes of the mouth are moist. No JVD. No carotid bruit. CHEST EXAMINATION: Lungs are clear to auscultation. No chest wall tenderness is noted on palpation or with deep breathing. HEART EXAMINATION: Regular rate and rhythm. S1, S2 heard. No murmurs, gallops or rub. EXTREMITIES: 2+ peripheral pulses, no lower extremity edema and no calf tenderness. ASSESSMENT 1. Non-STEMI, likely related to A. fib with RVR 2. A. fib with RVR 3. Hypertension 4. Chronic kidney disease 5. Dementia 6. Previous COVID-19 infection 7. Recent bronchitis at [facility] PLAN Clinically stable for discharge from a cardiac perspective on current medical regimen. Amiodarone taper has been sent to the pharmacy. Continue eliquis for thromboembolic protection. We will follow along as needed, please call with further questions or concerns. Nurse Practitioner note has been reviewed, I agree with a documented findings and plan of care. Patient was seen and examined. Objective - Vital Signs Vital signs: Vital Signs Temp 98.0 F 10/27/20 08:00 Pulse 62 10/27/20 08:00 Resp 16 10/27/20 08:00 BP 111/79 10/27/20 08:00 Pulse Ox 99 10/27/20 08:00 Intake & Output 10/26/20 10/27/20 10/27/20 18:59 06:59 18:59 Intake Total 180 Balance 180 Weight 62.9 kg Intake: Oral 180 Other: # Voids 2 2 - Labs CBC & Chem 7: 10/25/20 08:24 10/25/20 08:24 Labs: Abnormal Lab Results - Last 24 Hours (Table) 10/26/20 Range/Units 14:55 Lipase 396 H (23-300) U/L
--- NOTE | 2020-10-27 12:49 | P.PN ---
Subjective Progress Note Date: 10/27/20 CHIEF COMPLAINT: Chest pain HISTORY OF PRESENT ILLNESS: Surgical service is following regards to patient's abdominal pain. Patient denies any abdominal pain at this time. She denies any nausea vomiting. She is tolerating a heart healthy diet. She is followed by cardiology due to a non-ST elevated AR likely secondary to her atrial fibrillation with RVR. Patient's abdominal ultrasound was negative. She's had prior cholecystectomy. She denies any nausea or vomiting. Afebrile. No new labs for today. Lipase from yesterday was 396 PHYSICAL EXAM: VITAL SIGNS: Reviewed. GENERAL: Well-developed in no acute distress. HEENT: No sclera icterus. Extraocular movements grossly intact. Moist buccal mucosa. Head is atraumatic, normocephalic. ABDOMEN: Soft. Nondistended. Nontender. NEUROLOGIC: Alert and oriented. Cranial nerves II through XII grossly intact. ASSESSMENT: 1. Epigastric abdominal pain now resolved 2. Mildly elevated lipase improved 3. Non-ST elevated AR likely secondary to her atrial fibrillation with rapid ventricular response followed by cardiology PLAN: -No surgical intervention planned -Continue conservative management -Patient can be discharged from surgical standpoint when cleared medically -Cardiology managing AR and atrial fibrillation Physician Retail Delivery Driver note has been reviewed by physician. Signing provider agrees with the documented findings, assessment, and plan of care. Objective - Vital Signs Vital signs: Vital Signs Temp 98.0 F 10/27/20 08:00 Pulse 81 10/27/20 11:58 Resp 16 10/27/20 11:58 BP 117/72 10/27/20 11:58 Pulse Ox 99 10/27/20 11:58 Intake & Output 10/26/20 10/27/20 10/27/20 18:59 06:59 18:59 Intake Total 720 Balance 720 Weight 62.9 kg Intake: Intake, IV Titration 300 Amount Sodium Chloride 0.9% 1, 300 000 ml @ 100 mls/hr IV . Q10H [facility] Rx#:[id number] Oral 420 Other: # Voids 2 2 3 - Labs CBC & Chem 7: 10/25/20 08:24 10/25/20 08:24 Labs: Abnormal Lab Results - Last 24 Hours (Table) 10/26/20 Range/Units 14:55 Lipase 396 H (23-300) U/L
[2020-10-27] MEDS: MONTELUKAST 10 MG TAB PO SCH (20:12)
[2020-10-27] MEDS: MEMANTINE 5 MG TAB PO SCH (20:12)
--- NOTE | 2020-10-28 06:22 | PN ---
PROGRESS NOTE 75-year-old female, atrial fibrillation, on amiodarone taper. Possible discharge home tomorrow. Breathing is improved. Cardiovascular S1-S2, irregularly irregular rhythm. Lungs clear. GI soft. Hematology negative Homans. ASSESSMENT: 1. Atrial fibrillation, now controlled. Heart rate around 60 on amiodarone. 2. History of chronic obstructive pulmonary disease. Continue current treatment. Possible discharge home tomorrow. Follow up as outpatient. MMODL / IJN: [id number] /
[2020-10-28] MEDS: PANTOPRAZOLE 40 MG TABLET PO SCH (06:36)
[2020-10-28] MEDS: FERROUS SULFATE 325 MG TAB PO SCH (08:32)
[2020-10-28] MEDS: APIXABAN 5 MG TAB PO SCH ×2 (08:32→20:33)
[2020-10-28] MEDS: METOPROLOL SUCCINATE (ER) 25 MG TAB.ER.24H PO SCH (08:32)
[2020-10-28] MEDS: FUROSEMIDE 20 MG TAB PO SCH (08:32)
[2020-10-28] MEDS: AMIODARONE 200 MG TAB PO SCH ×2 (08:32→20:33)
[2020-10-28] MEDS: POTASSIUM CHLORIDE ER 10 MEQ TAB.ER.PRT PO SCH (08:32)
[2020-10-28] MEDS: AZITHROMYCIN 250 MG TAB PO SCH (08:32)
--- NOTE | 2020-10-28 14:07 | P.PN ---
Subjective Progress Note Date: 10/28/20 CHIEF COMPLAINT: Chest pain HISTORY OF PRESENT ILLNESS: Surgical service is following regards to patient's abdominal pain. Patient denies any abdominal pain at this time. She denies any nausea vomiting. She is tolerating a heart healthy diet. She is followed by cardiology due to a non-ST elevated ID likely secondary to her atrial fibrillation with RVR. Patient's abdominal ultrasound was negative. She's had prior cholecystectomy. She denies any nausea or vomiting. Afebrile. No new labs for today. PHYSICAL EXAM: VITAL SIGNS: Reviewed. GENERAL: Well-developed in no acute distress. HEENT: No sclera icterus. Extraocular movements grossly intact. Moist buccal mucosa. Head is atraumatic, normocephalic. ABDOMEN: Soft. Nondistended. Nontender. NEUROLOGIC: Alert and oriented. Cranial nerves II through XII grossly intact. ASSESSMENT: 1. Epigastric abdominal pain now resolved 2. Mildly elevated lipase improved 3. Non-ST elevated ID likely secondary to her atrial fibrillation with rapid ventricular response followed by cardiology PLAN: -No surgical intervention planned -Continue conservative management -Patient can be discharged from surgical standpoint when cleared medically -Cardiology managing ID and atrial fibrillation Physician Vegetable Washer note has been reviewed by physician. Signing provider agrees with the documented findings, assessment, and plan of care. Objective - Vital Signs Vital signs: Vital Signs Temp 98.0 F 10/28/20 08:00 Pulse 71 10/28/20 13:28 Resp 16 10/28/20 13:28 BP 106/67 10/28/20 12:00 Pulse Ox 99 10/28/20 12:00 Intake & Output 10/27/20 10/28/20 10/28/20 18:59 06:59 18:59 Intake Total 1080 240 Balance 1080 240 Weight 64.5 kg Intake: Intake, IV Titration 300 Amount Sodium Chloride 0.9% 1, 300 000 ml @ 100 mls/hr IV . Q10H [facility] Rx#:[id number] Oral 780 240 Other: # Voids 3 2 2 - Labs CBC & Chem 7: 10/25/20 08:24 10/25/20 08:24
[2020-10-28] MEDS: MONTELUKAST 10 MG TAB PO SCH (20:33)
[2020-10-28] MEDS: MEMANTINE 5 MG TAB PO SCH (20:33)
[2020-10-29 03:39] VITALS: RESP 16
--- NOTE | 2020-10-29 05:28 | PN ---
PROGRESS NOTE The patient is stable. Cardiology saw her. Surgery saw her. She appears to be much improved wound. No nausea, vomiting. She is on a regular diet. She had Non-STEMI secondary to atrial fibrillation RVR. Abdominal ultrasound is negative. ASSESSMENT: 1. Epigastric abdominal pain. 2. Mildly elevated lipase. 3. Non STEMI. Consider discharge home as she is cleared. Wonder why she did not get home today, but she is going to be discharged home. MMODL / IJN: [id number] /
--- NOTE | 2020-10-29 05:43 | DS ---
DISCHARGE SUMMARY MEDICATIONS: Cordarone 400 mg b.i.d., Eliquis 5 mg b.i.d., azithromycin 250 mg daily, ferrous sulfate 325 daily, Lasix 20 mg daily, [place] 5/325 q.12 hours, Ativan 0.5 mg q.6 hours p.r.n., Namenda 5 mg daily, metoprolol-XL 25 daily, Singulair 10 mg daily, Nitrostat 0.4 mg sublingual p.r.n., pantoprazole 40 mg daily, K-Dur 10 mEq daily. DISCHARGE DIAGNOSES: 1. Atrial fibrillation, rapid ventricular response. 2. Non STEMI. 3. Dementia. 4. Chronic obstructive pulmonary disease. 5. Gastroesophageal reflux disease. 6. Hypertension. 7. Anxiety. Medications were adjusted. The patient was given Cordarone, amiodarone for atrial fibrillation rapid ventricular response. The patient was stabilized from Cardiology standpoint. Breathing stabilized at which time she was sent home in stable condition. Follow up as an outpatient. Diet regular. Ambulate as tolerated. MMODL / IJN: [id number] /
[2020-10-29] MEDS: PANTOPRAZOLE 40 MG TABLET PO SCH (06:37)
[2020-10-29] MEDS: POTASSIUM CHLORIDE ER 10 MEQ TAB.ER.PRT PO SCH (09:16)
[2020-10-29] MEDS: APIXABAN 5 MG TAB PO SCH (09:16)
[2020-10-29] MEDS: FUROSEMIDE 20 MG TAB PO SCH (09:16)
[2020-10-29] MEDS: FERROUS SULFATE 325 MG TAB PO SCH (09:16)
[2020-10-29] MEDS: METOPROLOL SUCCINATE (ER) 25 MG TAB.ER.24H PO SCH (09:16)
[2020-10-29] MEDS: AZITHROMYCIN 250 MG TAB PO SCH (09:16)
[2020-10-29] MEDS: AMIODARONE 200 MG TAB PO SCH (09:16)
[2020-10-29 14:11] VITALS: BP 105/79; PULSE 69; TEMP 97.7
--- NOTE | 2020-10-31 07:13 | CDI ---
Documentation Clarification Form Date: 10/31/20 From: Karla Salas Admit Date: 10/24/2020 05:14:00 PM Patient Name: Lisbet Dobbins Visit Number: [id number] Discharge Date: 10/29/2020 12:29:00 PM ATTENTION: The Clinical Documentation Specialists (CDI) and [facility] Coding Staff appreciate your assistance in clarifying documentation. Please respond to the clarification below the line at the bottom and electronically sign. The CDI & [facility] Coding staff will review the response and follow-up if needed. Please note: Queries are made part of the Legal Health Record. If you have any questions, please contact the author of this message via ITS. Dr. Lalo Nguyen, Unspecified CKD is documented in the 10/25 cardiology consult and subsequent progress notes (10/26 & 10/27). Additional clarification regarding the stage of CKD is requested. History/Risk Factors: HTN, COPD in exacerbation, PAF, NSTEMI, dementia, hx COVID 19 No historical lab available Clinical Indicators: She has a past medical history significant for chronic kidney disease. Current BUN: 41 Current CR: 1.22 Current GFR: 50 Treatment: IV fluids Please clarify the stage of the CKD, if known: [ ] CKD Stage 1 (GFR > 90) [ ] CKD Stage 2 (GFR 60-89) [ ] CKD Stage 3 (GFR 30-59) [ ] CKD Stage 3a (GFR 45-59) [ ] CKD Stage 3b (GFR 30-44) [ ] CKD Stage 4 (GFR 15-29) [ ] CKD Stage 5 (GFR <15) [ ] ESRD [ ] Other, please specify [ ] Unable to determine MTDD
--- NOTE | 2020-10-31 07:31 | CDI ---
Documentation Clarification Form Date: 10/31/20 From: Karla Salas Admit Date: 10/24/2020 05:14:00 PM Patient Name: Lisbet Dobbins Visit Number: [id number] Discharge Date: 10/29/2020 12:29:00 PM ATTENTION: The Clinical Documentation Specialists (CDI) and [facility] Coding Staff appreciate your assistance in clarifying documentation. Please respond to the clarification below the line at the bottom and electronically sign. The CDI & [facility] Coding staff will review the response and follow-up if needed. Please note: Queries are made part of the Legal Health Record. If you have any questions, please contact the author of this message via ITS. Dr. Lalo Nguyen, Pancreatitis is documented is documented in the ED Note and H&P, but is not noted in subsequent documentation. Clarification is requested. History/Risk Factors: HTN, COPD in exacerbation, PAF, NSTEMI, dementia, hx COVID 19 Clinical Indicators: Lipase-999 (10/24), 396 (10/26) Per consult - underwent workup for epigastric and chest pain. Treatment: [place], Please clarify if the acute pancreatitis is: [ ] Acute pancreatitis is confirmed, remains under treatment [ ] Acute pancreatitis is ruled out [ ] Other condition, please specify [ ] Unable to determine MTDD
--- NOTE | 2020-11-05 15:52 | PN ---
PROGRESS NOTE ADDENDUM: Chronic kidney disease, stage 3A. Acute pancreatitis ruled in. MMODL / IJN: [id number] /
--- NOTE | 2020-11-07 12:45 | CDI ---
Documentation Clarification Form Date: 10/31/2020 07:13:00 AM From: Karla Salas Admit Date: 10/24/2020 05:14:00 PM Patient Name: Lisbet Dobbins Visit Number: [id number] Discharge Date: 10/29/2020 12:29:00 PM ATTENTION: The Clinical Documentation Specialists (CDI) and [facility] Coding Staff appreciate your assistance in clarifying documentation. Please respond to the clarification below the line at the bottom and electronically sign. The CDI & [facility] Coding staff will review the response and follow-up if needed. Please note: Queries are made part of the Legal Health Record. If you have any questions, please contact the author of this message via ITS. Dr. Lalo Nguyen, Unspecified CKD is documented in the 10/25 cardiology consult and subsequent progress notes (10/26 & 10/27). Additional clarification regarding the stage of CKD is requested. History/Risk Factors: HTN, COPD in exacerbation, PAF, NSTEMI, dementia, hx COVID 19 No historical lab available Clinical Indicators: She has a past medical history significant for chronic kidney disease. Current BUN: 41 Current CR: 1.22 Current GFR: 50 Treatment: IV fluids Please clarify the stage of the CKD, if known: [ ] CKD Stage 1 (GFR > 90) [ ] CKD Stage 2 (GFR 60-89) [ ] CKD Stage 3 (GFR 30-59) [ ] CKD Stage 3a (GFR 45-59) [ ] CKD Stage 3b (GFR 30-44) [ ] CKD Stage 4 (GFR 15-29) [ ] CKD Stage 5 (GFR <15) [ ] ESRD [ ] Other, please specify [ ] Unable to determine MTDD
--- NOTE | 2020-11-07 12:46 | CDI ---
Documentation Clarification Form Date: 10/31/2020 07:31:00 AM From: Karla Salas Admit Date: 10/24/2020 05:14:00 PM Patient Name: Lisbet Dobbins Visit Number: [id number] Discharge Date: 10/29/2020 12:29:00 PM ATTENTION: The Clinical Documentation Specialists (CDI) and [facility] Coding Staff appreciate your assistance in clarifying documentation. Please respond to the clarification below the line at the bottom and electronically sign. The CDI & [facility] Coding staff will review the response and follow-up if needed. Please note: Queries are made part of the Legal Health Record. If you have any questions, please contact the author of this message via ITS. Dr. Lalo Nguyen, Pancreatitis is documented is documented in the ED Note and H&P, but is not noted in subsequent documentation. Clarification is requested. History/Risk Factors: HTN, COPD in exacerbation, PAF, NSTEMI, dementia, hx COVID 19 Clinical Indicators: Lipase-999 (10/24), 396 (10/26) Per consult - underwent workup for epigastric and chest pain. Treatment: [place] po, Please clarify if the acute pancreatitis is: [ ] Acute pancreatitis is confirmed, remains under treatment [ ] Acute pancreatitis is ruled out [ ] Other condition, please specify [ ] Unable to determine MTDD
--- NOTE | 2020-11-08 15:24 | PN ---
PROGRESS NOTE ADDENDUM: Chronic kidney disease stage, 3A. MMODL / IJN: [id number] /
--- NOTE | 2020-11-08 15:24 | PN ---
PROGRESS NOTE ADDENDUM: Acute pancreatitis confirmed. MMODL / IJN: [id number] /
== END 2020-10-29 12:29 | disposition home health service (06) | DRG 280 ==
LOC: EC 14:12 → 3SCARD 17:14
PROVIDERS: ADMIT Family Medicine; ATTEND Family Medicine
DX: I21.4 Non-ST elevation (NSTEMI) myocardial infarction (principal); K85.90 Acute pancreatitis without necrosis or infection, unspecified; J44.1 Chronic obstructive pulmonary disease with (acute) exacerbation; E86.0 Dehydration; I48.0 Paroxysmal atrial fibrillation; E87.6 Hypokalemia; F03.90 Unspecified dementia, unspecified severity, without behavioral disturbance, psychotic disturbance, mood disturbance, and anxiety; I71.9 Aortic aneurysm of unspecified site, without rupture; N18.31 Chronic kidney disease, stage 3a; Z20.822 Contact with and (suspected) exposure to COVID-19; I12.9 Hypertensive chronic kidney disease with stage 1 through stage 4 chronic kidney disease, or unspecified chronic kidney disease; I34.0 Nonrheumatic mitral (valve) insufficiency; E78.5 Hyperlipidemia, unspecified; K21.9 Gastro-esophageal reflux disease without esophagitis; F41.9 Anxiety disorder, unspecified; I99.9 Unspecified disorder of circulatory system; Z79.01 Long term (current) use of anticoagulants; Z79.899 Other long term (current) drug therapy; Z86.16 Personal history of COVID-19; Z86.69 Personal history of other diseases of the nervous system and sense organs; Z87.440 Personal history of urinary (tract) infections; Z87.442 Personal history of urinary calculi; Z90.89 Acquired absence of other organs; Z96.642 Presence of left artificial hip joint; Z87.81 Personal history of (healed) traumatic fracture; Z98.51 Tubal ligation status; Z90.49 Acquired absence of other specified parts of digestive tract; Z87.19 Personal history of other diseases of the digestive system; Z90.710 Acquired absence of both cervix and uterus; Z87.42 Personal history of other diseases of the female genital tract; Z98.890 Other specified postprocedural states; Z88.1 Allergy status to other antibiotic agents; Z88.8 Allergy status to other drugs, medicaments and biological substances; Z82.49 Family history of ischemic heart disease and other diseases of the circulatory system
CPT/HCPCS: 36415; 71046; 76700; 80053; 80061; 82550; 83690; 83735; 83880; 84132; 84484; 85025; 85379; 85610; 85730; 87635; 93005; 94640; 99285

== ENCOUNTER 2020-11-05 12:31 | Inpatient (IN) | payer MEDICARE ==
[2020-11-05] MEDS ORDERED: SODIUM CHLORIDE 0.9% 1,000 ML IV STA (13:51)
[2020-11-05] MEDS ORDERED: ALPRAZolam 0.25 MG TAB PO STA (13:51)
--- NOTE | 2020-11-05 13:54 | ED ---
General Adult HPI - General Chief complaint: Chest Pain Stated complaint: Chest pressure Time Seen by Provider: 11/05/20 13:19 Source: patient, family, RN notes reviewed Mode of arrival: wheelchair Limitations: no limitations - History of Present Illness Initial comments: Patient is a pleasant 75-year-old female presenting to the emergency department not feeling well. Patient has multiple complaints. Family is present and helps provide history. Patient has been to the hospital twice previously with similar complaints. Patient did have MRI done of her brain and a different facility just 2 days ago. Daughter does have a copy of this and will have brought to the hospital. Patient was discharged a week ago and was doing well however symptoms have started to return. Patient has been anxious and not sleeping. Patient does admit to feeling anxious at this time. Patient does have some chest pressure and dyspnea. Patient is having some lightheadedness and mild headaches. Patient has been chronically off balance. Patient is having diffic ulty walking on her own. - Related Data Home Medications Medication Instructions Recorded Confirmed Ferrous Sulfate [Iron (65 MG 325 mg PO DAILY 04/27/18 11/05/20 Elemental)] Montelukast Sodium [Singulair] 10 mg PO HS 10/01/19 11/05/20 Albuterol Sulfate [Ventolin HFA] 2 puff INHALATION RT-QID PRN 05/05/20 11/05/20 Memantine [Namenda] 5 mg PO DAILY 05/05/20 11/05/20 HYDROcodone/APAP 5-325MG [[place] 1 tab PO Q12H PRN 06/08/20 11/05/20 5-325] Furosemide [Lasix] 20 mg PO DAILY 10/24/20 11/05/20 Omeprazole 20 mg PO DAILY 10/24/20 11/05/20 Potassium Chloride [Potassium 8 meq PO DAILY 10/24/20 11/05/20 Chloride ER] Amiodarone [Cordarone] See Taper PO BID 11/05/20 11/05/20 hydrALAZINE HCL 25 mg PO TID 11/05/20 11/05/20 Previous Rx's Medication Instructions Recorded Apixaban [Eliquis] 5 mg PO BID #60 tab 05/06/20 Metoprolol Succinate (ER) [Toprol 25 mg PO DAILY 90 Days #90 tablet 10/27/20 XL] Nitroglycerin Sl Tabs [Nitrostat] 0.4 mg SUBLINGUAL Q5M PRN 100 Days 10/27/20 #100 tab Allergies Allergy/AdvReac Type Severity Reaction Status Date / Time levofloxacin Allergy Swelling Verified 11/05/20 12:33 lisinopril AdvReac Unknown Verified 11/05/20 12:33 Review of Systems ROS Statement: Those systems with pertinent positive or pertinent negative responses have been documented in the HPI. ROS Other: All systems not noted in ROS Statement are negative. Constitutional: Denies: fever Eyes: Denies: eye pain ENT: Denies: ear pain Respiratory: Reports: dyspnea. Denies: cough Cardiovascular: Reports: chest pain Endocrine: Denies: fatigue Gastrointestinal: Denies: abdominal pain Genitourinary: Denies: dysuria Musculoskeletal: Denies: back pain Skin: Denies: rash Neurological: Reports: as per HPI, headache, abnormal gait Past Medical History Past Medical History: Asthma, COPD, Dementia, Hyperlipidemia, Hypertension, Memory Impairment, Renal Disease, Seizure Disorder, Vascular Disorder Additional Past Medical History / Comment(s): Short term memory loss, aortic aneurysm, irregular heart beat in the past-pt/jeison cannot recall type, seizure once- 06/2019, UTI/cystitis, nephrolithiasis, recently told she may have "kidney function" problem, falls, L hand currently swollen-pt/jeison do not know cause. History of Any Multi-Drug Resistant Organisms: None Reported Past Surgical History: Back Surgery, Hysterectomy, Orthopedic Surgery, Tonsillectomy, Tubal Ligation Additional Past Surgical History / Comment(s): D&C, EGD, colonoscopy, L hip hemiarthroplasty d/t fracure, R shoulder surgery d/t fracture-has hardware Past Anesthesia/Blood Transfusion Reactions: No Reported Reaction, Motion Sickness Past Psychological History: Anxiety Smoking Status: Never smoker Past Alcohol Use History: None Reported Past Drug Use History: None Reported - Past Family History Mother Family Medical History: Hypertension Father Family Medical History: Coronary Artery Disease (CAD), Myocardial Infarction (CT) Additional Family Medical History / Comment(s): Father of a CT in his 70s. General Exam Limitations: no limitations General appearance: alert, in no apparent distress Head exam: Present: atraumatic, normocephalic Eye exam: Present: normal appearance, PERRL, EOMI Neck exam: Present: normal inspection Respiratory exam: Present: normal lung sounds bilaterally Cardiovascular Exam: Present: regular rate, normal rhythm GI/Abdominal exam: Present: soft. Absent: tenderness Extremities exam: Present: normal inspection. Absent: pedal edema, calf tenderness Neurological exam: Present: alert, CN II-XII intact. Absent: motor sensory deficit Expanded Neurological exam: Present: protecting the airway Patient oriented to: Present: person. Absent: place, time Speech: Present: fluid speech Motor strength exam: RUE: 5, LUE: 5, RLE: 5, LLE: 5 Eye Response: (4) open spontaneously Motor Response: (6) obeys commands Verbal Response: (4) confused conversation Psychiatric exam: Present: normal affect, normal mood Skin exam: Present: normal color Course Vital Signs 11/05/20 11/05/20 11/05/20 12:33 14:20 15:54 Temperature 98.8 F Pulse Rate 99 89 75 Respiratory 20 20 20 Rate Blood Pressure 131/76 151/92 127/77 O2 Sat by Pulse 97 97 97 Oximetry 11/05/20 18:06 Temperature Pulse Rate 72 Respiratory 20 Rate Blood Pressure 138/86 O2 Sat by Pulse 97 Oximetry EKG Findings - EKG Comments: EKG Findings:: Sinus rhythm with rate of 96. OK 160. QRS 84. QT 372. QTC 469. Normal axis. Normal QRS. No acute ST change. Medical Decision Making - Medical Decision Making Case was crusted detail with Dr. Nguyen who is familiar with this patient. He will admit. He does request consult with cardiology and neurology. He states he is unaware of MRI results and would like computed tomography scan done. Patient reevaluated and updated. - Lab Data Result diagrams: 11/05/20 14:07 11/05/20 14:07 Lab Results 11/05/20 11/05/20 11/05/20 Range/Units 14:07 14:07 14:07 WBC 22.6 H (3.8-10.6) k/uL RBC 3.74 L (3.80-5.40) m/uL Hgb 11.9 (11.4-16.0) gm/dL Hct 38.4 (34.0-46.0) % MCV 102.6 H (80.0-100.0) fL MCH 31.8 (25.0-35.0) pg MCHC 31.0 (31.0-37.0) g/dL RDW 13.2 (11.5-15.5) % Plt Count 256 (150-450) k/uL MPV 8.1 Neutrophils % 92 % Lymphocytes % 4 % Monocytes % 4 % Eosinophils % 0 % Basophils % 0 % Neutrophils # 20.7 H (1.3-7.7) k/uL Lymphocytes # 0.9 L (1.0-4.8) k/uL Monocytes # 0.8 (0-1.0) k/uL Eosinophils # 0.1 (0-0.7) k/uL Basophils # 0.0 (0-0.2) k/uL Macrocytosis Slight PT 9.8 (9.0-12.0) sec INR 0.9 (<1.2) APTT 21.1 L (22.0-30.0) sec Sodium (137-145) mmol/L Potassium (3.5-5.1) mmol/L Chloride (98-107) mmol/L Carbon Dioxide (22-30) mmol/L Anion Gap mmol/L BUN (7-17) mg/dL Creatinine (0.52-1.04) mg/dL Est GFR (CKD-EPI)AfAm (>60 ml/min/1.73 sqM) Est GFR (CKD-EPI)NonAf (>60 ml/min/1.73 sqM) Glucose (74-99) mg/dL Lactic Ac Sepsis Rflx Plasma Lactic Acid Nolberto (0.7-2.0) mmol/L Calcium (8.4-10.2) mg/dL Total Bilirubin (0.2-1.3) mg/dL AST (14-36) U/L ALT (4-34) U/L Alkaline Phosphatase (38-126) U/L Troponin I (0.000-0.034) ng/mL NT-Pro-B Natriuret Pep pg/mL Total Protein (6.3-8.2) g/dL Albumin (3.5-5.0) g/dL Urine Color Yellow Urine Appearance Clear (Clear) Urine pH 6.0 (5.0-8.0) Ur Specific Boody 1.025 (1.001-1.035) Urine Protein Trace H (Negative) Urine Glucose (UA) Negative (Negative) Urine Ketones Trace H (Negative) Urine Blood Negative (Negative) Urine Nitrite Negative (Negative) Urine Bilirubin Negative (Negative) Urine Urobilinogen <2.0 (<2.0) mg/dL Ur Leukocyte Esterase Large H (Negative) Urine RBC <1 (0-5) /hpf Urine WBC 5 (0-5) /hpf Ur Squamous Epith Cells 3 (0-4) /hpf Urine Mucus Few H (None) /hpf 11/05/20 11/05/20 11/05/20 Range/Units 14:07 14:07 14:07 WBC (3.8-10.6) k/uL RBC (3.80-5.40) m/uL Hgb (11.4-16.0) gm/dL Hct (34.0-46.0) % MCV (80.0-100.0) fL MCH (25.0-35.0) pg MCHC (31.0-37.0) g/dL RDW (11.5-15.5) % Plt Count (150-450) k/uL MPV Neutrophils % % Lymphocytes % % Monocytes % % Eosinophils % % Basophils % % Neutrophils # (1.3-7.7) k/uL Lymphocytes # (1.0-4.8) k/uL Monocytes # (0-1.0) k/uL Eosinophils # (0-0.7) k/uL Basophils # (0-0.2) k/uL Macrocytosis PT (9.0-12.0) sec INR (<1.2) APTT (22.0-30.0) sec Sodium 139 (137-145) mmol/L Potassium 4.3 (3.5-5.1) mmol/L Chloride 109 H (98-107) mmol/L Carbon Dioxide 25 (22-30) mmol/L Anion Gap 5 mmol/L BUN 15 (7-17) mg/dL Creatinine 0.93 (0.52-1.04) mg/dL Est GFR (CKD-EPI)AfAm 70 (>60 ml/min/1.73 sqM) Est GFR (CKD-EPI)NonAf 61 (>60 ml/min/1.73 sqM) Glucose 82 (74-99) mg/dL Lactic Ac Sepsis Rflx Plasma Lactic Acid Nolberto 2.3 H* (0.7-2.0) mmol/L Calcium 11.0 H (8.4-10.2) mg/dL Total Bilirubin 0.5 (0.2-1.3) mg/dL AST 23 (14-36) U/L ALT 13 (4-34) U/L Alkaline Phosphatase 79 (38-126) U/L Troponin I <0.012 (0.000-0.034) ng/mL NT-Pro-B Natriuret Pep pg/mL Total Protein 5.9 L (6.3-8.2) g/dL Albumin 3.6 (3.5-5.0) g/dL Urine Color Urine Appearance (Clear) Urine pH (5.0-8.0) Ur Specific Boody (1.001-1.035) Urine Protein (Negative) Urine Glucose (UA) (Negative) Urine Ketones (Negative) Urine Blood (Negative) Urine Nitrite (Negative) Urine Bilirubin (Negative) Urine Urobilinogen (<2.0) mg/dL Ur Leukocyte Esterase (Negative) Urine RBC (0-5) /hpf Urine WBC (0-5) /hpf Ur Squamous Epith Cells (0-4) /hpf Urine Mucus (None) /hpf 11/05/20 11/05/20 11/05/20 Range/Units 14:07 14:50 18:06 WBC (3.8-10.6) k/uL RBC (3.80-5.40) m/uL Hgb (11.4-16.0) gm/dL Hct (34.0-46.0) % MCV (80.0-100.0) fL MCH (25.0-35.0) pg MCHC (31.0-37.0) g/dL RDW (11.5-15.5) % Plt Count (150-450) k/uL MPV Neutrophils % % Lymphocytes % % Monocytes % % Eosinophils % % Basophils % % Neutrophils # (1.3-7.7) k/uL Lymphocytes # (1.0-4.8) k/uL Monocytes # (0-1.0) k/uL Eosinophils # (0-0.7) k/uL Basophils # (0-0.2) k/uL Macrocytosis PT (9.0-12.0) sec INR (<1.2) APTT (22.0-30.0) sec Sodium (137-145) mmol/L Potassium (3.5-5.1) mmol/L Chloride (98-107) mmol/L Carbon Dioxide (22-30) mmol/L Anion Gap mmol/L BUN (7-17) mg/dL Creatinine (0.52-1.04) mg/dL Est GFR (CKD-EPI)AfAm (>60 ml/min/1.73 sqM) Est GFR (CKD-EPI)NonAf (>60 ml/min/1.73 sqM) Glucose (74-99) mg/dL Lactic Ac Sepsis Rflx Y Plasma Lactic Acid Nolberto 2.5 H* (0.7-2.0) mmol/L Calcium (8.4-10.2) mg/dL Total Bilirubin (0.2-1.3) mg/dL AST (14-36) U/L ALT (4-34) U/L Alkaline Phosphatase (38-126) U/L Troponin I (0.000-0.034) ng/mL NT-Pro-B Natriuret Pep 2570 pg/mL Total Protein (6.3-8.2) g/dL Albumin (3.5-5.0) g/dL Urine Color Urine Appearance (Clear) Urine pH (5.0-8.0) Ur Specific Boody (1.001-1.035) Urine Protein (Negative) Urine Glucose (UA) (Negative) Urine Ketones (Negative) Urine Blood (Negative) Urine Nitrite (Negative) Urine Bilirubin (Negative) Urine Urobilinogen (<2.0) mg/dL Ur Leukocyte Esterase (Negative) Urine RBC (0-5) /hpf Urine WBC (0-5) /hpf Ur Squamous Epith Cells (0-4) /hpf Urine Mucus (None) /hpf - Radiology Data Radiology results: image reviewed (Chest x-ray shows no acute process) Disposition Clinical Impression: Chest pain, Balance problem Disposition: ADMITTED IP TO THIS HOSP Is patient prescribed a controlled substance at d/c from ED?: No Referrals: Lalo Nguyen MD [Primary Care Provider] - 1-2 days Decision Time: 18:47
[2020-11-05 14:39] LABS: Basophils % (A) 0 %; Eosinophils # (A) 0.1 k/uL (0-0.7); Eosinophils % (A) 0 %; HCT 38.4 % (34.0-46.0); HGB 11.9 gm/dL (11.4-16.0); Lymphocytes # (A) 0.9 k/uL (1.0-4.8); Lymphocytes % (A) 4 %; MCH 31.8 pg (25.0-35.0); MCV 102.6 fL (80.0-100.0); Macrocytosis Slight; Mean Platelet Volume 8.1; Monocytes # (A) 0.8 k/uL (0-1.0); Monocytes % (A) 4 %; Neutrophils # (A) 20.7 k/uL (1.3-7.7); Neutrophils % (A) 92 %; Platelet Count 256 k/uL (150-450); RBC 3.74 m/uL (3.80-5.40); RDW 13.2 % (11.5-15.5); WBC 22.6 k/uL (3.8-10.6)
--- NOTE | 2020-11-05 14:48 | XR ---
EXAMINATION TYPE: XR chest 2V DATE OF EXAM: 11/05/2020 COMPARISON: 10/24/2020 HISTORY: Shortness of breath TECHNIQUE: Frontal and lateral views of the chest are obtained. FINDINGS: Scattered senescent parenchymal changes noted. Hyperinflation compatible with COPD. No evidence for infiltrate. No evidence for atelectasis. Heart size is stable. Mediastinal structures are stable and grossly unremarkable. No evidence for hilar prominence. Degenerative changes dorsal spine. IMPRESSION: 1. No evidence for acute pulmonary disease.
[2020-11-05 14:49] LABS: Albumin 3.6 g/dL (3.5-5.0); Potassium 4.3 mmol/L (3.5-5.1); Total Bilirubin 0.5 mg/dL (0.2-1.3); Total Protein 5.9 g/dL (6.3-8.2)
[2020-11-05 14:57] LABS: INR 0.9 (<1.2); Prothrombin Time 9.8 sec (9.0-12.0)
[2020-11-05 15:05] LABS: Partial Thromboplastin Time 21.1 sec (22.0-30.0)
[2020-11-05 16:12] LABS: Appearance,Urine Clear (Clear); Bilirubin,Urine Negative (Negative); Blood,Urine Negative (Negative); Color,Urine Yellow; Glucose,Urine (UA) Negative (Negative); Ketones,Urine Trace (Negative); Leukocyte Esterase,Urine Large (Negative); Mucus,Urine Few /hpf; Nitrite,Urine Negative (Negative); Protein,Urine Trace (Negative); RBC,Urine <1 /hpf (0-5); Specific Gravity,Urine 1.025 (1.001-1.035); Squamous Epithelial Cell,Urine 3 /hpf (0-4); Urobilinogen,Urine <2.0 mg/dL (<2.0); WBC,Urine 5 /hpf (0-5)
[2020-11-05] MEDS ORDERED: NALOXONE 0.4 MG/ML 1 ML VIAL IV PRN (18:48)
--- NOTE | 2020-11-05 19:52 | CT ---
EXAMINATION TYPE: CT brain wo con DATE OF EXAM: 11/05/2020 COMPARISON: 06/07/2020 HISTORY: Patient feels off balance. CT DLP: 1139.4 mGycm Automated exposure control for dose reduction was used. There is cerebral atrophy. There is no mass effect nor midline shift. There is no sign of intracrania l hemorrhage. Calvarium is intact. Skull base is intact. There is no evidence of cerebral edema. Ther e is hypodensity in the periventricular white matter. IMPRESSION: Cerebral atrophy and chronic small vessel ischemia. No acute intracranial abnormality. No change comp ared to old exam.
[2020-11-06] MEDS ORDERED: HYDROcodone/APAP 5-325MG 1 EACH TAB PO PRN (00:44)
[2020-11-06] MEDS ORDERED: NITROGLYCERIN SL TABS 0.4 MG TAB SUBLINGUAL PRN (00:44)
[2020-11-06] MEDS: ALPRAZolam 0.25 MG TAB PO PRN ×2 (05:24→22:35)
[2020-11-06 08:05] LABS: African American GFR (CKD) 60 (>60 ml/min/1.73 sqM); Albumin 3.3 g/dL (3.5-5.0); Anion Gap 5 mmol/L; Blood Urea Nitrogen 18 mg/dL (7-17); Calcium 10.4 mg/dL (8.4-10.2); Carbon Dioxide 25 mmol/L (22-30); Chloride 110 mmol/L (98-107); Glucose 76 mg/dL (74-99); Non-African American GFR(CKD) 52 (>60 ml/min/1.73 sqM); Potassium 4.4 mmol/L (3.5-5.1); Sodium 140 mmol/L (137-145); Total Protein 5.9 g/dL (6.3-8.2)
[2020-11-06 08:06] LABS: ALT 13 U/L (4-34); AST 24 U/L (14-36); Albumin/Globulin Ratio 1.3; Alkaline Phosphatase 72 U/L (38-126); Globulin 2.6 g/dL; Total Bilirubin 0.7 mg/dL (0.2-1.3)
[2020-11-06] MEDS: FERROUS SULFATE 325 MG TAB PO SCH (08:26)
[2020-11-06] MEDS: hydrALAZINE HCL 25 MG TAB PO SCH ×3 (08:26→22:28)
[2020-11-06] MEDS: METOPROLOL SUCCINATE (ER) 25 MG TAB.ER.24H PO SCH (08:26)
[2020-11-06] MEDS: POTASSIUM CHLORIDE ER 10 MEQ TAB.ER.PRT PO SCH (08:27)
[2020-11-06] MEDS: PANTOPRAZOLE 40 MG TABLET PO SCH (08:27)
[2020-11-06] MEDS: FUROSEMIDE 20 MG TAB PO SCH (08:27)
[2020-11-06] MEDS: APIXABAN 5 MG TAB PO SCH ×2 (08:27→22:28)
[2020-11-06] MEDS: MEMANTINE 5 MG TAB PO SCH (08:56)
[2020-11-06] MEDS: AMIODARONE 100 MG TAB PO SCH ×2 (08:56→22:28)
[2020-11-06] MEDS ORDERED: AMIODARONE 200 MG TAB PO SCH (09:00)
[2020-11-06 09:19] LABS: Basophils # (A) 0.03 X 10*3/uL (0.00-0.10); Basophils % (A) 0.2 %; Eosinophils # (A) 0.01 X 10*3/uL (0.04-0.35); Eosinophils % (A) 0.1 %; HCT 37.4 % (37.2-46.3); HGB 11.6 g/dL (12.0-15.0); Lymphocytes # (A) 2.04 X 10*3/uL (0.90-5.00); Lymphocytes % (A) 13.3 %; MCH 31.3 pg (27.0-32.0); MCV 100.8 fL (80.0-97.0); Mean Platelet Volume 10.8 fL (9.5-12.2); Monocytes # (A) 0.66 X 10*3/uL (0.20-1.00); Monocytes % (A) 4.3 %; Neutrophils # (A) 12.46 X 10*3/uL (1.80-7.70); Neutrophils % (A) 81.1 %; Platelet Count 263 X 10*3/uL (140-440); RBC 3.71 X 10*6/uL (4.10-5.20); RDW 13.7 % (11.5-14.5); WBC 15.36 X 10*3/uL (4.50-10.00)
--- NOTE | 2020-11-06 09:31 | P.CRDCN ---
History of Present Illness History of present illness: HISTORY OF PRESENTING ILLNESS This is a pleasant 75-year-old with past medical history significant for chronic kidney disease, hypertension, dementia, paroxysmal atrial fibrillation on Eliqui s, recent COVID-19 infection spring 2020, Bronchitis. She is somewhat of a poor historian and is confused. Oriented to person and knows she is in the hospital but thought she was in [place]. Patient presents to the emergency department with complaints of chest pain. Her chest pain is left sided states it "just feels like a pain". It is non-radiating. Non-exertional. It comes and goes. Lasts over 10 minutes. She does not have any specific alleviating factors. Her pain is aggravated by taking a deep breath. She does have associated shortness of breath. Denies nausea, diaphoresis, vomiting, or palpitations. She states she does occasionally get lightheaded with ambulation and that is not new for her, has been going on for months. She denies falls or syncope. She denies symptoms of dysuria. She denies symptoms of orthopnea or PND, denies fevers or chills. She denies history of diabetes, MT or stroke. She is a non-smoker. States she is compliant with her medication. She lives alone but states her daughters check on her frequently. DIAGNOSTICS EKG-sinus rhythm, heart rate 96, artifact noted, no significant ST or T-wave abnormalities. Telemetry- patient maintaining sinus mechanism Chest Xray- hyperinflation, possibly some venous congestion Most recent echo from 06/09/2020 shows EF 55-60%, mild mitral regurgitation, moderate LVH. Laboratory data reviewed- sodium 140, potassium 4.4, BUN 18, serum creatinine 1.05, troponin negative 3, proBNP 2570, WBC 22.6, hemoglobin 11.9, platelets 256, normally positive for a UTI REVIEW OF SYSTEMS At the time of my exam: CONSTITUTIONAL: Denies fever or chills. CARDIOVASCULAR: +chest pain, +shortness of breath, no orthopnea, PND or palp itations. RESPIRATORY: Denies cough. GASTROINTESTINAL: Denies abdominal pain, diarrhea, constipation, nausea or vomiting. MUSCULOSKELETAL: Denies myalgias. NEUROLOGIC: Denies numbness, tingling or weakness. ENDOCRINE: Denies fatigue, weight change, polydipsia or polyurina. GENITOURINARY: Denies burning, hematuria or urgency with micturation. HEMATOLOGIC: Denies history of anemia or bleeding. PHYSICAL EXAMINATION Vital signs reviewed. CONSTITUTIONAL: No apparent distress. HEENT: Head is normocephalic. Pupils are equal, round. Sclerae anicteric. Mucous membranes of the mouth are moist. No JVD. No carotid bruit. CHEST EXAMINATION: Lungs are diminished bases bilaterally to auscultation. No chest wall tenderness is noted on palpation or with deep breathing. HEART EXAMINATION: Regular rate and rhythm. S1, S2 heard. No murmurs, gallops or rub. ABDOMEN: Soft, nontender. Positive bowel sounds. EXTREMITIES: 2+ peripheral pulses, no lower extremity edema and no calf tenderness. NEUROLOGIC EXAMINATION: Patient is awake, alert and oriente, poor recall ASSESSMENT Chest pain, atypical acute coronary syndrome has been ruled out, cardiac enzymes negative Shortness of breath Paroxysmal atrial fibrillation on Eliquis Hypertension Chronic kidney disease Dementia Previous COVID-19 infection Bronchitis diagnosed at [facility] History asthma/COPD PLAN -We will check limited repeat 2-D echo and if ejection fraction unchanged would treat conservatively with medical therapy. -Continue Eliquis for thromboembolic protection -Continue PO Lasix as ordered, if patient with increased shortness of breath can consider increasing diuresis -Continue home cardiac medications metoprolol, amiodarone, hydralazine -If no acute findings on echocardiogram, no further cardiac testing needed -Recommend patient follow up outpatient for further management and discussion about further testing as an outpatient. Past Medical History Past Medical History: Asthma, COPD, Dementia, Hyperlipidemia, Hypertension, Memory Impairment, Renal Disease, Seizure Disorder, Vascular Disorder Additional Past Medical History / Comment(s): Short term memory loss, aortic aneurysm, irregular heart beat in the past-pt/jeison cannot recall type, seizure once- 06/2019, UTI/cystitis, nephrolithiasis, recently told she may have "kidney function" problem, falls, L hand currently swollen-pt/jeison do not know cause. History of Any Multi-Drug Resistant Organisms: None Reported Past Surgical History: Back Surgery, Hysterectomy, Orthopedic Surgery, Tonsillectomy, Tubal Ligation Additional Past Surgical History / Comment(s): D&C, EGD, colonoscopy, L hip hemiarthroplasty d/t fracure, R shoulder surgery d/t fracture-has hardware Past Anesthesia/Blood Transfusion Reactions: No Reported Reaction, Motion Sickness Past Psychological History: Anxiety Smoking Status: Never smoker Past Alcohol Use History: None Reported Past Drug Use History: None Reported - Past Family History Mother Family Medical History: Hypertension Father Family Medical History: Coronary Artery Disease (CAD), Myocardial Infarction (MT) Additional Family Medical History / Comment(s): Father of a MT in his 70s. Medications and Allergies Home Medications Medication Instructions Recorded Confirmed Type Ferrous Sulfate [Iron (65 MG 325 mg PO DAILY 04/27/18 11/05/20 History Elemental)] Montelukast Sodium [Singulair] 10 mg PO HS 10/01/19 11/05/20 History Albuterol Sulfate [Ventolin HFA] 2 puff INHALATION RT-QID PRN 05/05/20 11/05/20 History Memantine [Namenda] 5 mg PO DAILY 05/05/20 11/05/20 History Apixaban [Eliquis] 5 mg PO BID #60 tab 05/06/20 11/05/20 Rx HYDROcodone/APAP 5-325MG [[place] 1 tab PO Q12H PRN 06/08/20 11/05/20 History 5-325] Furosemide [Lasix] 20 mg PO DAILY 10/24/20 11/05/20 History Omeprazole 20 mg PO DAILY 10/24/20 11/05/20 History Potassium Chloride [Potassium 8 meq PO DAILY 10/24/20 11/05/20 History Chloride ER] Metoprolol Succinate (ER) [Toprol 25 mg PO DAILY 90 Days #90 tablet 10/27/20 11/05/20 Rx XL] Nitroglycerin Sl Tabs [Nitrostat] 0.4 mg SUBLINGUAL Q5M PRN 100 Days 10/27/20 11/05/20 Rx #100 tab Amiodarone [Cordarone] See Taper PO BID 11/05/20 11/05/20 History hydrALAZINE HCL 25 mg PO TID 11/05/20 11/05/20 History Allergies Allergy/AdvReac Type Severity Reaction Status Date / Time levofloxacin Allergy Swelling Verified 11/05/20 12:33 lisinopril AdvReac Unknown Verified 11/05/20 12:33 Physical Exam Vitals: Vital Signs Temp Pulse Resp BP Pulse Ox 11/06/20 05:25 77 17 141/88 100 11/05/20 18:06 72 20 138/86 97 11/05/20 15:54 75 20 127/77 97 11/05/20 14:20 89 20 151/92 97 11/05/20 12:33 98.8 F 99 20 131/76 97 Results 11/05/20 14:07 11/06/20 05:20 Cardiac Enzymes 11/05/20 11/05/20 11/05/20 Range/Units 14:07 14:07 20:51 AST 23 (14-36) U/L Troponin I <0.012 <0.012 (0.000-0.034) ng/mL 11/05/20 Range/Units 23:50 AST (14-36) U/L Troponin I <0.012 (0.000-0.034) ng/mL Coagulation 11/05/20 Range/Units 14:07 PT 9.8 (9.0-12.0) sec APTT 21.1 L (22.0-30.0) sec CBC 11/05/20 Range/Units 14:07 WBC 22.6 H (3.8-10.6) k/uL RBC 3.74 L (3.80-5.40) m/uL Hgb 11.9 (11.4-16.0) gm/dL Hct 38.4 (34.0-46.0) % Plt Count 256 (150-450) k/uL Comprehensive Metabolic Panel 11/05/20 Range/Units 14:07 Sodium 139 (137-145) mmol/L Potassium 4.3 (3.5-5.1) mmol/L Chloride 109 H (98-107) mmol/L Carbon Dioxide 25 (22-30) mmol/L BUN 15 (7-17) mg/dL Creatinine 0.93 (0.52-1.04) mg/dL Glucose 82 (74-99) mg/dL Calcium 11.0 H (8.4-10.2) mg/dL AST 23 (14-36) U/L ALT 13 (4-34) U/L Alkaline Phosphatase 79 (38-126) U/L Total Protein 5.9 L (6.3-8.2) g/dL Albumin 3.6 (3.5-5.0) g/dL Current Medications Generic Name Dose Route Start Last Admin Trade Name Freq PRN Reason Stop Dose Admin Hydrocodone Bitart/Acetaminophen 1 each 11/06/20 00:44 Hydrocodone/Apap 5-325mg 1 Each Tab PO Q12H PRN Pain Albuterol Sulfate 2.5 mg 11/06/20 00:44 Albuterol Nebulized 2.5 Mg/3 Ml INHALATION RT-QID PRN Shortness Of Breath Alprazolam 0.25 mg 11/05/20 18:48 11/06/20 05:24 Alprazolam 0.25 Mg Tab PO 0.25 mg Q6HR PRN Administration Anxiety Amiodarone HCl 100 mg 11/06/20 09:00 Amiodarone 200 Mg Tab PO BID [facility] Apixaban 5 mg 11/06/20 09:00 Apixaban 5 Mg Tab PO BID [facility] Protocol Ferrous Sulfate 325 mg 11/06/20 09:00 Ferrous Sulfate 325 Mg Tab PO DAILY [facility] Furosemide 20 mg 11/06/20 09:00 Furosemide 20 Mg Tab PO DAILY [facility] Hydralazine HCl 25 mg 11/06/20 09:00 Hydralazine Hcl 25 Mg Tab PO TID [facility] Ceftriaxone Sodium 1 gm/ 50 mls @ 100 mls/hr 11/05/20 19:15 11/05/20 19:31 Sodium Chloride IVPB 100 mls/hr Q12HR [facility] Administration Memantine 5 mg 11/06/20 09:00 Memantine 5 Mg Tab PO DAILY [facility] Metoprolol Succinate 25 mg 11/06/20 09:00 Metoprolol Succinate (Er) 25 Mg Tab.Er.24h PO DAILY [facility] Montelukast Sodium 10 mg 11/06/20 21:00 Montelukast 10 Mg Tab PO HS [facility] Naloxone HCl 0.2 mg 11/05/20 18:48 Naloxone 0.4 Mg/Ml 1 Ml Vial IV Q2M PRN Opioid Reversal Nitroglycerin 0.4 mg 11/06/20 00:44 Nitroglycerin Sl Tabs 0.4 Mg Tab SUBLINGUAL Q5M PRN Chest Pain Pantoprazole Sodium 40 mg 11/06/20 09:00 Pantoprazole 40 Mg Tablet PO DAILY [facility] Potassium Chloride 10 meq 11/06/20 09:00 Potassium Chloride Er 10 Meq Tab.Er.Prt PO DAILY [facility] 11/05/20 14:07 11/05/20 14:07
--- NOTE | 2020-11-06 10:45 | ECHOF ---
Referral Reason:LV function MEASUREMENTS -------- HEIGHT: 165.1 cm WEIGHT: 65.8 kg BP: 165/94 IVSd: 1.5 cm (0.6 - 1.1) LVIDd: 3.8 cm (3.9 - 5.3) LVPWd: 1.6 cm (0.6 - 1.1) IVSs: 2.1 cm LVIDs: 2.1 cm LVPWs: 1.7 cm FINDINGS -------- Sinus rhythm. This was a technically adequate study. Limited Study The left ventricular size is normal. There is moderate concentric left ventricular hypertrophy. O verall left ventricular systolic function is normal with, an EF between 55 - 60 %. There is no pericardial effusion. CONCLUSIONS -------- 1. The left ventricular size is normal. 2. There is moderate concentric left ventricular hypertrophy. 3. Overall left ventricular systolic function is normal with, an EF between 55 - 60 %. 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
[2020-11-06] MEDS: ALBUTEROL NEBULIZED 2.5 MG/3 ML INHALATION PRN ×2 (11:00→20:10)
--- NOTE | 2020-11-06 13:10 | P.CNNES ---
History of Present Illness Consult date: 11/06/20 Requesting physician: Payam Stephen Reason for Consult: balance problems History of Present Illness: This is a 75-year-old woman with medical history of possible TIA, seizure disorder, cognitive impairment, atrial fibrillation Eliqumikayla, COVID-19 pneumonia in April 2020, congestive heart failure, COPD presented emergency department on 11/05/2020 for not feeling well. Knowledge is consulted for balance problems. Per the ED note she complained to him that she's feeling got some lightheadedness and mild headaches and has chronic balance problems and nothing new. Patient had MRI of the brain at a different facility about 2 days ago prior to present to our hospital. The patient nurse as she notified the nurse that she is not having any further dizziness or lightheadedness. Upon seeing her the patient stated that she's doing well and she denies any further difficulty walking and denies of any dizziness, lightheadedness or any focal weakness. At home the patient is on Eliquis 5 one tablet twice a day, and per EMR home medications, she is not on any statins or antiplatelets. Patient was seen last by our neurology team on 06/09/2020 and it was felt to possibly she had a TIA she had a stroke workup and we recommended for the patient to be on aspirin 81 mg as well as Eliquis 5 Madama tablet twice a day. Continue statin. Please refer to our notes for further details. Some of the workup in the hospital consisted of: Vital vitals: Blood pressure 131/76, heart rate of 99, history of 20, temperature of 98.8 Fahrenheit oral pulse ox of 97% room air. CT of the head is reported as cerebral atrophy and chronic small vessel ischemia. No acute intracranial abnormality. No changes compared to old exam. Limited 2-D echo was reported as left ventricle size is normal. Moderate concentric left ventricle hypertrophy. Ejection fraction 55-60%. On initial presentation the patient 1 blood cell initially was 22.6 thousand and correlates 15.36 Most recent temperature panel is sodium 140, creatinine is 1.05, serum glucose is 76, calcium is 7.4, AST of 24, ALT of 13. Plasma like acid was 2.3 and currently is 1.5. Review of Systems Review of system: The 12 point system was reviewed and apparent positive and negative per HPI. Past Medical History Past Medical History: Asthma, COPD, Dementia, Hyperlipidemia, Hypertension, Memory Impairment, Renal Disease, Seizure Disorder, Vascular Disorder Additional Past Medical History / Comment(s): Short term memory loss, aortic aneurysm, irregular heart beat in the past-pt/jeison cannot recall type, seizure once- 06/2019, UTI/cystitis, nephrolithiasis, recently told she may have "kidney function" problem, falls, L hand currently swollen-pt/jeison do not know cause. History of Any Multi-Drug Resistant Organisms: None Reported Past Surgical History: Back Surgery, Hysterectomy, Orthopedic Surgery, Tonsillec yehuda, Tubal Ligation Additional Past Surgical History / Comment(s): D&C, EGD, colonoscopy, L hip hemiarthroplasty d/t fracure, R shoulder surgery d/t fracture-has hardware Past Anesthesia/Blood Transfusion Reactions: No Reported Reaction, Motion Sick ness Past Psychological History: Anxiety Smoking Status: Never smoker Past Alcohol Use History: None Reported Past Drug Use History: None Reported - Past Family History Mother Family Medical History: Hypertension Father Family Medical History: Coronary Artery Disease (CAD), Myocardial Infarction (ND) Additional Family Medical History / Comment(s): Father of a ND in his 70s. Medications and Allergies Home Medications Medication Instructions Recorded Confirmed Type Ferrous Sulfate [Iron (65 MG 325 mg PO DAILY 04/27/18 11/05/20 History Elemental)] Montelukast Sodium [Singulair] 10 mg PO HS 10/01/19 11/05/20 History Albuterol Sulfate [Ventolin HFA] 2 puff INHALATION RT-QID PRN 05/05/20 11/05/20 History Memantine [Namenda] 5 mg PO DAILY 05/05/20 11/05/20 History Apixaban [Eliquis] 5 mg PO BID #60 tab 05/06/20 11/05/20 Rx HYDROcodone/APAP 5-325MG [[place] 1 tab PO Q12H PRN 06/08/20 11/05/20 History 5-325] Furosemide [Lasix] 20 mg PO DAILY 10/24/20 11/05/20 History Omeprazole 20 mg PO DAILY 10/24/20 11/05/20 History Potassium Chloride [Potassium 8 meq PO DAILY 10/24/20 11/05/20 History Chloride ER] Metoprolol Succinate (ER) [Toprol 25 mg PO DAILY 90 Days #90 tablet 10/27/20 11/05/20 Rx XL] Nitroglycerin Sl Tabs [Nitrostat] 0.4 mg SUBLINGUAL Q5M PRN 100 Days 10/27/20 11/05/20 Rx #100 tab Amiodarone [Cordarone] See Taper PO BID 11/05/20 11/05/20 History hydrALAZINE HCL 25 mg PO TID 11/05/20 11/05/20 History Allergies Allergy/AdvReac Type Severity Reaction Status Date / Time levofloxacin Allergy Swelling Verified 11/05/20 12:33 lisinopril AdvReac Unknown Verified 11/05/20 12:33 Physical Examination - Vital Signs Vital Signs: Vital Signs Temp Pulse Pulse Resp BP BP Pulse Ox 11/06/20 11:13 74 11/06/20 11:00 78 11/06/20 07:00 98 F 60 16 165/94 100 11/06/20 05:25 77 17 141/88 100 11/05/20 18:06 72 20 138/86 97 11/05/20 15:54 75 20 127/77 97 11/05/20 14:20 89 20 151/92 97 Intake and Output 11/05/20 11/06/20 11/06/20 22:59 06:59 14:59 Intake Total 0 Balance 0 Intake: Oral 0 Other: # Voids 1 Weight 65.771 kg 67 kg GENERAL: The patient is lying in bed and is not in acute distress. CHEST: The heart rate is regular rate rhythm. No murmurs to auscultation. No carotid bruit bilaterally. LUNG: Clear to auscultation bilaterally no wheezing noted throughout. Not labored breathing. ABDOMEN/GI: Bowel sounds present in all 4 quadrants. No tenderness to palpation throughout. NEUROLOGICAL: Higher mental function: The patient is awake, alert, oriented to self. She stated she was in [facility] and said it was the year 2018. But could not tell me month. She is able to identify objects (pen, watch and glasses). Patient is following simple commands. No aphasia and no neglect. Cranial nerves: The pupils are round, equal and reactive to light and accommodation. Visual shea are full to confrontation throughout. Extraocular movement is intact no nystagmus is noted. Facial sensation is normal to touch throughout. The facial strength is normal throughout. Hearing is normal kristina aterally to hand rub. Tongue is midline and moved [id number] without any difficulty. No dysarthria is noted. Shoulder shrug is normal bilaterally. Motor: Gait is normal with normal arm swings. The strength is 5 over 5 throughout. Normal tone and bulk. Cerebellum: Normal finger to nose bilaterally. Sensation: Sensation is normal to touch throughout. Reflexes (right/left): 2+ throughout. Plantars are downgoing bilaterally. Results - Laboratory Findings CBC and BMP: 11/06/20 05:20 11/06/20 05:20 Abnormal Lab Findings: Abnormal Labs 11/05/20 11/05/20 11/05/20 14:07 14:07 14:07 WBC 22.6 H RBC 3.74 L Hgb MCV 102.6 H MCHC Immature Gran # Neutrophils # 20.7 H Lymphocytes # 0.9 L Eosinophils # APTT 21.1 L Chloride BUN Creatinine Plasma Lactic Acid Nolberto Calcium Total Protein Albumin Urine Protein Trace H Urine Ketones Trace H Ur Leukocyte Esterase Large H Urine Mucus Few H 11/05/20 11/05/20 11/05/20 14:07 14:07 18:06 WBC RBC Hgb MCV MCHC Immature Gran # Neutrophils # Lymphocytes # Eosinophils # APTT Chloride 109 H BUN Creatinine Plasma Lactic Acid Nolberto 2.3 H* 2.5 H* Calcium 11.0 H Total Protein 5.9 L Albumin Urine Protein Urine Ketones Ur Leukocyte Esterase Urine Mucus 11/05/20 11/06/20 11/06/20 20:51 05:20 05:20 WBC 15.36 H RBC 3.71 L Hgb 11.6 L MCV 100.8 H MCHC 31.0 L Immature Gran # 0.16 H Neutrophils # 12.46 H Lymphocytes # Eosinophils # 0.01 L APTT Chloride 110 H BUN 18 H Creatinine 1.05 H Plasma Lactic Acid Nolberto 2.7 H* Calcium 10.4 H Total Protein 5.9 L Albumin 3.3 L Urine Protein Urine Ketones Ur Leukocyte Esterase Urine Mucus Assessment and Plan Assessment: Chronic Unsteady balance that is reported to ED---currently on my examination has no balance issues. She feels back to baseline and had recent MRI Brain at outside facility. Possible TIA on 06/2020 Leukocytosis was is trending down without any fever possibly due to underlying urinary tract infection Seizure disorder Cognitive impairment Age are fibrillation on Eliquis COVID-19 pneumonia in April 2020 Congestive heart failure COPD Plan: * Because of the patient's sensation of on chronic balance problem I don't recommend antiplatelet in addition with that the anticoagulation. Currently she is on Ahlquist 5 mg twice a day and that is to be continued. If the patient has risks of falls/recurrent falls, then I would not recommend anticoagulation possibly consider antiplatelet instead. * Started the patient on Lipitor 20 mg daily at bedtime for secondary stroke prophylaxis. * Physical therapy and occupation therapy are consulted * I'll not repeat any imaging of the brain since she had a recent CT of the head in our facility on this admission and had MRI of the brain 2 days ago prior to presented to this hospital at at an outside facility. We'll try to obtain record of that. * She had recent vitamin B12, folate as well TSH checked on the 06/2020 admission and it does not need to be repeated. Will get repeat HbA1c (last was in 2019) to rule out uncontrolled DM that would cause neuropathy. We'll defer her sugar control to the primary team. If the hemoglobin A1c is negat mirta possibly consider EMG with nerve conduction study as an outpatient to rule out neuropathy. * ID team is on board * Cardiology team is is on board * We'll defer the rest of the medical measure the primary team * Upon discharge patient needs to follow up with a neurologist within 2 weeks. The plan is discussed with the nurse. Thank you for the consultation. Suleman Chandler M.D. Neuro-hospitalist Time with Patient: Greater than 30
[2020-11-06] MEDS: ATORVASTATIN 20 MG TAB PO SCH (22:28)
[2020-11-06] MEDS: MONTELUKAST 10 MG TAB PO SCH (22:28)
--- NOTE | 2020-11-07 00:02 | P.CONS ---
History of Present Illness - Reason for Consult Consult date: 11/06/20 leukocytosis Requesting physician: Lalo Nguyen - Chief Complaint weakness x few days - History of Present Illness History of present illness : Patient is 75-year-old -[place] female with a past medical history pertinent for COPD in this patient presented to hospital yesterday afternoon for evaluation not feeling well patient has been mentioning feeling anxious and not sleeping also has complained of symptoms pressure and lightheadedness but no headache he denies any URI symptoms no cough or sputum production no abdominal pain no diarrhea no burning or frequency of urine on presentation to the hospital the patient was afebrile and no fever has been recorded subsequently patient is currently 100% on room air patient did have white count of 22.6 yesterday down to 13.36 creatinine was normal did have elevated lactic acid negative enzymes has been normal urine was large leukocyte esterase but no WBC patient was started on Rocephin patient did have a chest x- ray noted evidence of acute pulmonary disease infectious disease was consulted for further management because of her elevated white count Review of system: CONSTITUTIONAL: Positive for weakness denies fever. EYES: No complaint. ENT: No complaint. RESPIRATORY: As per history of present illness. CARDIOVASCULAR as per history of present illness. GENITOURINARY: No complaint. GASTROINTESTINAL: No complaint. MUSCULOSKELETAL: No complaint. INTEGUMENTARY: No complaint. PSYCHOLOGIC: No complaint. ENDOCRINE: No complaint. NEUROLOGIC: No complaint. Past medical history : Reviewed, documented below Past surgical history : Reviewed, documented below Social history: Reviewed, documented below Medications: Reviewed, as documented below EXAMINATION: Vital sigans= Reviewed and documented below GENERAL DESCRIPTION: Elderly female up in the bed, no distress. No tachypnea or accessory muscle of respiration use. HEENT: Shows Pallor , no scleral icterus. Oral mucous membrane is dry. NECK: Trachea central, no thyromegaly. LUNGS: Unlabored breathing. Clear to auscultation anteriorly. No wheeze or crackle. HEART: S1, S2, regular rate and rhythm. ABDOMEN: Soft, no tenderness , guarding or rigidity EXTREMITIES: No edema of feet. SKIN: No rash, no masses palpable. NEUROLOGICAL: The patient is awake, alert, oriented x3, mood and affect normal. LABS AND RADIOLOGY: Reviewed results see below Assessment : Patient presented to hospital with generalized weakness feeling anxious in this patient did have elevated white count [address] and admission which is currently trending down however also intermittently however the patient did not have any obvious focus of infection urine did show some leukocyte esterase but no WBC abdominal soft on presentation chest x-ray has been negative for ac [place] infiltrate Plan: 1-we will repeat a urine culture 2-we will check inflammatory markers 3-continue with Rocephin 1 g daily We will follow on clinical condition and cultures to further adjust medication if needed Thank you for this consultation we will follow the patient along with you Past Medical History Past Medical History: Asthma, COPD, Dementia, Hyperlipidemia, Hypertension, Memory Impairment, Renal Disease, Seizure Disorder, Vascular Disorder Additional Past Medical History / Comment(s): Short term memory loss, aortic aneurysm, irregular heart beat in the past-pt/jeison cannot recall type, seizure once- 06/2019, UTI/cystitis, nephrolithiasis, recently told she may have "kidney function" problem, falls, L hand currently swollen-pt/jeison do not know cause. History of Any Multi-Drug Resistant Organisms: None Reported Past Surgical History: Back Surgery, Hysterectomy, Orthopedic Surgery, Tonsillectomy, Tubal Ligation Additional Past Surgical History / Comment(s): D&C, EGD, colonoscopy, L hip hemiarthroplasty d/t fracure, R shoulder surgery d/t fracture-has hardware Past Anesthesia/Blood Transfusion Reactions: No Reported Reaction, Motion Sickness Past Psychological History: Anxiety Smoking Status: Never smoker Past Alcohol Use History: None Reported Past Drug Use History: None Reported - Past Family History Mother Family Medical History: Hypertension Father Family Medical History: Coronary Artery Disease (CAD), Myocardial Infarction (PR) Additional Family Medical History / Comment(s): Father of a PR in his 70s. Medications and Allergies Home Medications Medication Instructions Recorded Confirmed Type Ferrous Sulfate [Iron (65 MG 325 mg PO DAILY 04/27/18 11/05/20 History Elemental)] Montelukast Sodium [Singulair] 10 mg PO HS 10/01/19 11/05/20 History Albuterol Sulfate [Ventolin HFA] 2 puff INHALATION RT-QID PRN 05/05/20 11/05/20 History Memantine [Namenda] 5 mg PO DAILY 05/05/20 11/05/20 History Apixaban [Eliquis] 5 mg PO BID #60 tab 05/06/20 11/05/20 Rx HYDROcodone/APAP 5-325MG [[place] 1 tab PO Q12H PRN 06/08/20 11/05/20 History 5-325] Furosemide [Lasix] 20 mg PO DAILY 10/24/20 11/05/20 History Omeprazole 20 mg PO DAILY 10/24/20 11/05/20 History Potassium Chloride [Potassium 8 meq PO DAILY 10/24/20 11/05/20 History Chloride ER] Metoprolol Succinate (ER) [Toprol 25 mg PO DAILY 90 Days #90 tablet 10/27/20 11/05/20 Rx XL] Nitroglycerin Sl Tabs [Nitrostat] 0.4 mg SUBLINGUAL Q5M PRN 100 Days 10/27/20 11/05/20 Rx #100 tab Amiodarone [Cordarone] See Taper PO BID 11/05/20 11/05/20 History hydrALAZINE HCL 25 mg PO TID 11/05/20 11/05/20 History Allergies Allergy/AdvReac Type Severity Reaction Status Date / Time levofloxacin Allergy Swelling Verified 11/05/20 12:33 lisinopril AdvReac Unknown Verified 11/05/20 12:33 Physical Exam Vitals: Vital Signs Temp Pulse Pulse Resp BP BP Pulse Ox 11/06/20 11:13 74 11/06/20 11:00 78 11/06/20 07:00 98 F 60 16 165/94 100 11/06/20 05:25 77 17 141/88 100 11/05/20 18:06 72 20 138/86 97 11/05/20 15:54 75 20 127/77 97 Intake and Output 11/05/20 11/06/20 11/06/20 22:59 06:59 14:59 Intake Total 0 Balance 0 Intake: Oral 0 Other: # Voids 1 Weight 65.771 kg 67 kg Results CBC & Chem 7: 11/06/20 05:20 11/06/20 05:20 Labs: Abnormal Lab Results - Last 24 Hours (Table) 11/05/20 11/05/20 11/05/20 Range/Units 14:07 14:07 14:07 WBC 22.6 H (3.8-10.6) k/uL RBC 3.74 L (3.80-5.40) m/uL Hgb (12.0-15.0) g/dL MCV 102.6 H (80.0-100.0) fL MCHC (32.0-37.0) g/dL Immature Gran # (0.00-0.04) X 10*3/uL Neutrophils # 20.7 H (1.3-7.7) k/uL Lymphocytes # 0.9 L (1.0-4.8) k/uL Eosinophils # (0.04-0.35) X 10*3/uL APTT 21.1 L (22.0-30.0) sec Chloride (98-107) mmol/L BUN (7-17) mg/dL Creatinine (0.52-1.04) mg/dL Plasma Lactic Acid Nolberto (0.7-2.0) mmol/L Calcium (8.4-10.2) mg/dL Total Protein (6.3-8.2) g/dL Albumin (3.5-5.0) g/dL Urine Protein Trace H (Negative) Urine Ketones Trace H (Negative) Ur Leukocyte Esterase Large H (Negative) Urine Mucus Few H (None) /hpf 11/05/20 11/05/20 11/05/20 Range/Units 14:07 14:07 18:06 WBC (3.8-10.6) k/uL RBC (3.80-5.40) m/uL Hgb (12.0-15.0) g/dL MCV (80.0-100.0) fL MCHC (32.0-37.0) g/dL Immature Gran # (0.00-0.04) X 10*3/uL Neutrophils # (1.3-7.7) k/uL Lymphocytes # (1.0-4.8) k/uL Eosinophils # (0.04-0.35) X 10*3/uL APTT (22.0-30.0) sec Chloride 109 H (98-107) mmol/L BUN (7-17) mg/dL Creatinine (0.52-1.04) mg/dL Plasma Lactic Acid Nolberto 2.3 H* 2.5 H* (0.7-2.0) mmol/L Calcium 11.0 H (8.4-10.2) mg/dL Total Protein 5.9 L (6.3-8.2) g/dL Albumin (3.5-5.0) g/dL Urine Protein (Negative) Urine Ketones (Negative) Ur Leukocyte Esterase (Negative) Urine Mucus (None) /hpf 11/05/20 11/06/20 11/06/20 Range/Units 20:51 05:20 05:20 WBC 15.36 H (3.8-10.6) k/uL RBC 3.71 L (3.80-5.40) m/uL Hgb 11.6 L (12.0-15.0) g/dL MCV 100.8 H (80.0-100.0) fL MCHC 31.0 L (32.0-37.0) g/dL Immature Gran # 0.16 H (0.00-0.04) X 10*3/uL Neutrophils # 12.46 H (1.3-7.7) k/uL Lymphocytes # (1.0-4.8) k/uL Eosinophils # 0.01 L (0.04-0.35) X 10*3/uL APTT (22.0-30.0) sec Chloride 110 H (98-107) mmol/L BUN 18 H (7-17) mg/dL Creatinine 1.05 H (0.52-1.04) mg/dL Plasma Lactic Acid Nolberto 2.7 H* (0.7-2.0) mmol/L Calcium 10.4 H (8.4-10.2) mg/dL Total Protein 5.9 L (6.3-8.2) g/dL Albumin 3.3 L (3.5-5.0) g/dL Urine Protein (Negative) Urine Ketones (Negative) Ur Leukocyte Esterase (Negative) Urine Mucus (None) /hpf
--- NOTE | 2020-11-07 01:45 | HP ---
HISTORY AND PHYSICAL HISTORY OF PRESENT ILLNESS: A 75-year-old white female came with chronic kidney disease, hypertension, dementia, and paroxysmal atrial fib. Recent Covid 19 infection, bronchitis. She was brought to the hospital. She thought she was in [place]. Comes in with chest pain. Feels like just like a pain and radiating, lasted over 10 minutes. She has been in the hospital 4 times in the last couple of weeks. Every time she goes home, she gets short of breath. She takes a deep breath, possibly due to post Covid inflammation in the lungs. Denies PND, orthopnea. Recently discharged for A-fib, rapid ventricular response. She came right back to the hospital after going home. Chest x-ray shows hyperinflation, venous congestion. EKG nonspecific ST-T changes. BUN is 18, creatinine 1.05, sodium 140, potassium 4.4. BNP 25 7 8. Troponins negative x3. White count 22, hemoglobin 11.9, platelets 256. REVIEW OF SYSTEMS: Fourteen-point review of systems negative except for mentioned in HPI. PHYSICAL EXAMINATION: Vital signs reviewed. She gives appropriate answers. NEUROLOGIC: Cranial nerves are intact. MUSCULOSKELETAL: She has 3 to 4/5 strength in arms and legs. She can give appropriate answers although she has some poor recall. ABDOMEN: Soft. EXTREMITIES: No edema. HEART: S1, S2. ASSESSMENT: 1. Atypical chest pain. Cardiac enzymes negative. 2. Paroxysmal atrial fibrillation. 3. Hypertension. 4. Chronic kidney disease. 5. Dementia. 6. Previous Covid 19 infections, suspect bronchitis and bronchospasm secondary to Covid pneumonia on long-term shortness of breath. 7. Paroxysmal atrial fib, rapid ventricular response, improved. 8. Possible dementia with some dizziness. Neurologic, Pulmonary and Cardiac consults. Please see further orders. Started progressive antibiotics and rate control for atrial fibrillation. MMODL / IJN: [id number] /
[2020-11-07 04:17] LABS: Appearance,Urine Clear (Clear); Bacteria,Urine Rare /hpf; Bilirubin,Urine Negative (Negative); Blood,Urine Negative (Negative); Color,Urine Light Yellow; Glucose,Urine (UA) Negative (Negative); Ketones,Urine Negative (Negative); Leukocyte Esterase,Urine Large (Negative); Nitrite,Urine Negative (Negative); Protein,Urine Negative (Negative); RBC,Urine 1 /hpf (0-5); Squamous Epithelial Cell,Urine <1 /hpf (0-4); Urobilinogen,Urine <2.0 mg/dL (<2.0); WBC,Urine 27 /hpf (0-5)
[2020-11-07 05:42] LABS: ALT 11 U/L (4-34); AST 22 U/L (14-36); African American GFR (CKD) 53 (>60 ml/min/1.73 sqM); Albumin 3.2 g/dL (3.5-5.0); Albumin/Globulin Ratio 1.4; Alkaline Phosphatase 70 U/L (38-126); Anion Gap 5 mmol/L; Blood Urea Nitrogen 22 mg/dL (7-17); C Reactive Protein <0.5 mg/dL (<1.0); Calcium 9.6 mg/dL (8.4-10.2); Carbon Dioxide 26 mmol/L (22-30); Chloride 106 mmol/L (98-107); Globulin 2.3 g/dL; Glucose 77 mg/dL (74-99); Non-African American GFR(CKD) 46 (>60 ml/min/1.73 sqM); Potassium 3.9 mmol/L (3.5-5.1); Sodium 137 mmol/L (137-145); Total Bilirubin 0.6 mg/dL (0.2-1.3); Total Protein 5.5 g/dL (6.3-8.2)
--- NOTE | 2020-11-07 07:58 | US ---
EXAMINATION TYPE: US abdomen complete DATE OF EXAM: 11/07/2020 COMPARISON: US CLINICAL HISTORY: elevated wbc , abd pain. Elevated WBC, abdominal pain. Cholecystectomy. EXAM MEASUREMENTS: Liver Length: 14.0 cm CBD: 0.51 cm Spleen: 7.3 cm Right Kidney: 8.8 x 5.2 x 4.4 cm Left Kidney: 9.0 x 5.0 x 4.8 cm Pancreas: Limited visibility of tail. Duct measures 2.1 cm. Pancreas is visualized appears normal. Liver: No abnormalities seen. Gallbladder: Cholecystectomy. Evidence for sonographic Srivastava's sign: No. CBD: Portions seen appear wnl. Spleen: No abnormalities seen. Right Kidney: Hypoechoic area seen inferiorly: 2.1 x 1.3 x 1.3 cm., Likely a small cyst. Nonspecific Hyperechoic focus seen: 0.4 x 0.4 x 0.3 cm. This may be a nonshadowing renal stone Left Kidney: Pyramids appear prominent. Upper IVC: Appears wnl. Abd Aorta: Right iliac measures 1.7 cm, left iliac measures 1.6 cm in transverse. (1.5 cm upper limi ts at iliac). IMPRESSION: 1. Simple appearing Cyst on the right kidney. 2. There may be a nonshadowing nonobstructing renal stone within the mid to inferior pole right kenneth lagos
--- NOTE | 2020-11-07 08:15 | CT ---
EXAMINATION TYPE: CT chest wo con DATE OF EXAM: 11/07/2020 COMPARISON: Chest CT May 06, 2020. Chest x-ray 2 days ago. HISTORY: dyspnea; covid [address] DLP: 265 mGycm. Automated Exposure Control for Dose Reduction was Utilized. TECHNIQUE: CT scan of the thorax is performed without IV contrast. FINDINGS: LUNGS: Background [id number] underlying emphysematous change is redemonstrated with mild intelligence director ior right basilar linear scarring. Additional mild linear scarring in the lateral right mid to lower lung No suspicious focal consolidation or groundglass opacity. No pleural effusion or pneumothorax se en. MEDIASTINUM: Lack of IV contrast is noted to limit evaluation for mediastinal and especially hilar ad enopathy. There are no definitive new Greater than 1 cm mediastinal lymph nodes. No pericardial eff usion is seen. Three-vessel coronary artery calcification and/or stents. Mild cardiomegaly. Ascending aortic aneurysm up to 4.2 cm axial image 29. Bovine type arch which is normal variant. Ectatic and a therosclerotic descending thoracic aorta redemonstrated. OTHER: Cholecystectomy clips. Some scattered colonic diverticula. Underlying scoliosis. Mild to moder ate compression type fracture T12 level is favored chronic in age. IMPRESSION: [id number] chronic emphysematous change with mild lower lung linear scarring. No ac [place] pulmonary infiltrate currently. Mild cardiomegaly with 4.2 cm ascending aortic aneurysm.
[2020-11-07] MEDS ORDERED: REGADENOSON 0.4 MG/5 ML SYRINGE IV PRN (08:26)
[2020-11-07] MEDS ORDERED: CAFFEINE CITRATE 60 MG/3 ML VIAL IV PRN (08:26)
[2020-11-07] MEDS ORDERED: AMINOPHYLLINE 500 MG/20 ML VIAL IV PRN (08:26)
[2020-11-07 09:39] LABS: Basophils # (A) 0.08 X 10*3/uL (0.00-0.10); Basophils % (A) 0.9 %; Eosinophils # (A) 0.15 X 10*3/uL (0.04-0.35); Eosinophils % (A) 1.7 %; HCT 36.5 % (37.2-46.3); HGB 11.2 g/dL (12.0-15.0); Lymphocytes # (A) 2.63 X 10*3/uL (0.90-5.00); Lymphocytes % (A) 30.3 %; MCH 30.5 pg (27.0-32.0); MCHC 30.7 g/dL (32.0-37.0); MCV 99.5 fL (80.0-97.0); Mean Platelet Volume 10.5 fL (9.5-12.2); Monocytes # (A) 0.59 X 10*3/uL (0.20-1.00); Monocytes % (A) 6.8 %; Neutrophils # (A) 5.14 X 10*3/uL (1.80-7.70); Neutrophils % (A) 59.1 %; Platelet Count 223 X 10*3/uL (140-440); RBC 3.67 X 10*6/uL (4.10-5.20); RDW 13.7 % (11.5-14.5); WBC 8.69 X 10*3/uL (4.50-10.00)
--- NOTE | 2020-11-07 09:51 | P.CNPUL ---
History of Present Illness Consult date: 11/07/20 Reason for consult: dyspnea, cough Chief complaint: Shortness of breath History of present illness: Patient is a 75-year-old female with baseline of dementia, patient is overall a poor historian, came into the hospital with the wide variety of symptoms extends from shortness of breath to chest pressure and confusion, patient has been hospitalized here as well as a cure on recently, complains were somehow similar however blood pressure remains a problem at that time, it appears that data revealed a MRI done about 3 days ago, symptoms have been relapse in addition patient is not sleeping has been anxious, cardiology has been consulted for chest pain, and is scheduled for a stress test, patient has chronic balance issues as well, walking on her own has been a challenge, on specific questioning she denies any cough or sputum production, past medical history significant for chronic iron deficiency anemia, chronic persistent asthma, dementia Alzheimer's disease, congestive heart failure preserved ejection fraction, hypertension hypertensive cardiovascular disease, chronic atrial fibrillation, Other active medical problems include dyslipidemia and chronic kidney disease seizure disorder chronic vascular insufficiency, aortic aneurysm, UTI, nephrolithiasis, chest x-ray on arrival has been unremarkable, CT of the brain chronic atrophic changes were seen no acute finding identified, ultrasound of the abdomen has been positive for cyst in the right kidneys, renal calculi has been seen nonobstructing on the right kidney, computed tomography scan of the chest without contrast revealed presence of emphysema predominantly in the lower lobes along with scarring or active infiltrate identified, 4.2 cm ascending aortic aneurysm seen with mild cardiomegaly, patient has elevated WBC count of 15,000 however came down to 8000. Creatinine was 18/1.05 slightly up /1.17, patient had been on 4 L oxygen saturation is 98%, now blood pressure is well controlled, oxygen saturation 98% room air, patient is on IV Rocephin continuation of her home medications including direct anticoagulants Past Medical History Past Medical History: Asthma, COPD, Dementia, Hyperlipidemia, Hypertension, Memory Impairment, Renal Disease, Seizure Disorder, Vascular Disorder Additional Past Medical History / Comment(s): Short term memory loss, aortic aneurysm, irregular heart beat in the past-pt/jeison cannot recall type, seizure once- 06/2019, UTI/cystitis, nephrolithiasis, recently told she may have "kidney function" problem, falls, L hand currently swollen-pt/jeison do not know cause. History of Any Multi-Drug Resistant Organisms: None Reported Past Surgical History: Back Surgery, Hysterectomy, Orthopedic Surgery, Tonsillectomy, Tubal Ligation Additional Past Surgical History / Comment(s): D&C, EGD, colonoscopy, L hip hemiarthroplasty d/t fracure, R shoulder surgery d/t fracture-has hardware Past Anesthesia/Blood Transfusion Reactions: No Reported Reaction, Motion Sickness Past Psychological History: Anxiety Smoking Status: Never smoker Past Alcohol Use History: None Reported Past Drug Use History: None Reported - Past Family History Mother Family Medical History: Hypertension Father Family Medical History: Coronary Artery Disease (CAD), Myocardial Infarction (M I) Additional Family Medical History / Comment(s): Father of a AR in his 70s. Medications and Allergies Home Medications Medication Instructions Recorded Confirmed Type Ferrous Sulfate [Iron (65 MG 325 mg PO DAILY 04/27/18 11/05/20 History Elemental)] Montelukast Sodium [Singulair] 10 mg PO HS 10/01/19 11/05/20 History Albuterol Sulfate [Ventolin HFA] 2 puff INHALATION RT-QID PRN 05/05/20 11/05/20 History Memantine [Namenda] 5 mg PO DAILY 05/05/20 11/05/20 History Apixaban [Eliquis] 5 mg PO BID #60 tab 05/06/20 11/05/20 Rx HYDROcodone/APAP 5-325MG [[place] 1 tab PO Q12H PRN 06/08/20 11/05/20 History 5-325] Furosemide [Lasix] 20 mg PO DAILY 10/24/20 11/05/20 History Omeprazole 20 mg PO DAILY 10/24/20 11/05/20 History Potassium Chloride [Potassium 8 meq PO DAILY 10/24/20 11/05/20 History Chloride ER] Metoprolol Succinate (ER) [Toprol 25 mg PO DAILY 90 Days #90 tablet 10/27/20 0 11/05/20 Rx XL] Nitroglycerin Sl Tabs [Nitrostat] 0.4 mg SUBLINGUAL Q5M PRN 100 Days 10/27/20 11/05/20 Rx #100 tab Amiodarone [Cordarone] See Taper PO BID 11/05/20 11/05/20 History hydrALAZINE HCL 25 mg PO TID 11/05/20 11/05/20 History Allergies Allergy/AdvReac Type Severity Reaction Status Date / Time levofloxacin Allergy Swelling Verified 11/05/20 12:33 lisinopril AdvReac Unknown Verified 11/05/20 12:33 Physical Exam Vitals: Vital Signs Temp Pulse Pulse Pulse Resp BP Pulse Ox 11/07/20 07:00 97.5 F L 68 18 118/81 98 11/07/20 02:31 97.9 F 71 20 125/75 98 11/06/20 22:40 22 11/06/20 20:23 78 11/06/20 20:11 75 11/06/20 20:01 98.0 F 72 24 116/51 100 11/06/20 15:00 98.4 F 98 18 115/68 94 L 11/06/20 11:13 74 11/06/20 11:00 78 Intake and Output 11/06/20 11/07/20 11/07/20 22:59 06:59 14:59 Output Total 60 600 Balance -60 -600 Output: Urine 60 600 Other: Voiding Method Toilet Toilet Diaper Diaper # Voids 1 4 Weight 63 kg - Constitutional General appearance: average body habitus, cooperative, disheveled - EENT Eyes: PERRLA ENT: hearing grossly normal Ears: bilateral: normal - Neck Carotids: bilateral: upstroke normal Thyroid: bilateral: normal size - Respiratory Respiratory: bilateral: CTA - Cardiovascular Rhythm: regular Heart sounds: normal: S1, S2 - Gastrointestinal General gastrointestinal: soft - Integumentary Integumentary: normal turgor - Psychiatric Psychiatric: A&O x's 3, appropriate affect, intact judgment & insight Results - Laboratory Findings CBC and BMP: 11/06/20 05:20 11/07/20 04:32 PT/INR, D-dimer PT 9.8 sec (9.0-12.0) 11/05/20 14:07 INR 0.9 (<1.2) 11/05/20 14:07 Abnormal lab findings: Abnormal Labs 11/05/20 11/05/20 11/05/20 14:07 14:07 14:07 WBC 22.6 H RBC 3.74 L Hgb MCV 102.6 H MCHC Immature Gran # Neutrophils # 20.7 H Lymphocytes # 0.9 L Eosinophils # APTT 21.1 L Chloride BUN Creatinine Plasma Lactic Acid Nolberto Calcium Total Protein Albumin Urine Protein Trace H Urine Ketones Trace H Ur Leukocyte Esterase Large H Urine WBC Urine Bacteria Urine Mucus Few H 11/05/20 11/05/20 11/05/20 14:07 14:07 18:06 WBC RBC Hgb MCV MCHC Immature Gran # Neutrophils # Lymphocytes # Eosinophils # APTT Chloride 109 H BUN Creatinine Plasma Lactic Acid Nolberto 2.3 H* 2.5 H* Calcium 11.0 H Total Protein 5.9 L Albumin Urine Protein Urine Ketones Ur Leukocyte Esterase Urine WBC Urine Bacteria Urine Mucus 11/05/20 11/06/20 11/06/20 20:51 05:20 05:20 WBC 15.36 H RBC 3.71 L Hgb 11.6 L MCV 100.8 H MCHC 31.0 L Immature Gran # 0.16 H Neutrophils # 12.46 H Lymphocytes # Eosinophils # 0.01 L APTT Chloride 110 H BUN 18 H Creatinine 1.05 H Plasma Lactic Acid Nolberto 2.7 H* Calcium 10.4 H Total Protein 5.9 L Albumin 3.3 L Urine Protein Urine Ketones Ur Leukocyte Esterase Urine WBC Urine Bacteria Urine Mucus 11/07/20 11/07/20 02:45 04:32 WBC RBC Hgb MCV MCHC Immature Gran # Neutrophils # Lymphocytes # Eosinophils # APTT Chloride BUN 22 H Creatinine 1.17 H Plasma Lactic Acid Nolberto Calcium Total Protein 5.5 L Albumin 3.2 L Urine Protein Urine Ketones Ur Leukocyte Esterase Large H Urine WBC 27 H Urine Bacteria Rare H Urine Mucus - Diagnostic Findings Chest x-ray: report reviewed, image reviewed CT scan - chest: report reviewed, image reviewed (Finding as noted above) Assessment and Plan Assessment: Acute hypoxic respiratory failure appears to have mild exacerbation of CHF ho wever associated community-acquired pneumonia cannot be excluded COPD not in exacerbation Atypical chest pain Dizziness lightheadedness of unclear etiology workup is in progress Hypertension hypertensive cardiovascular disease Chronic atrial fibrillation Advanced dementia and Alzheimer's disease Plan: Agree with stress test Continue bronchodilators Hold on steroids Continue antibiotics for now however can be switched to oral like Ceftin 250 mg by mouth 2 times a day for another 4-5 days Continue gentle diuresis Further recommendations pending plan of care as per clinical response of the patient Time with Patient: Greater than 30
--- NOTE | 2020-11-07 10:56 | P.PN ---
Subjective This is a pleasant 75-year-old with past medical history significant for chronic kidney disease, hypertension, dementia, paroxysmal atrial fibrillation on Eliquis, recent COVID-19 infection spring 2020, Bronchitis. She is somewhat of a poor historian and is confused. Oriented to person and knows she is in the hospital but thought she was in [place]. Patient presents to the emergency department with complaints of chest pain. Her EKG revealed sinus rhythm, heart rate 96, no significant ST or T-wave abnormalities. Her troponin negative x 3. S he did have mildly elevated troponins 0.06 x 2 on 10/24/2020 which were attributed to her atrial fibrillation with RVR at the time. Patient seen and examined at bedside, she continues to be pleasantly confused. She is unable to describes specifics of her symptoms prior to when she came it but does states "it was my heart". Spoke with patient's daughter Analisa for further information, she states the patient has been having complaints of dyspnea on exertion frequently. Per patient's daughter this has been problematic at home. Workup in the form of a stress test was discussed and daughter would like this completed. This was discussed with the patient and she is agreeable as well. Patient underwent CT chest without contrast revealed mild to moderate atherosclerotic change with mild lower lung linear scarring. Mild cardiomegaly. Ascending aortic aneurysm up to 4.2 cm atherosclerotic descending thoracic aorta demonstrated. Patient is currently maintained on amiodarone 100 mg 3 times a day, Eliquis 5 mg twice a day, atorvastatin 20 mg nightly, Lasix 20 mg daily when necessary, hydralazine 25 mg 3 times a day, Toprol succinate 25 mg daily. Limited echocardiogram revealed an EF of 5560%. PHYSICAL EXAMINATION Vital signs reviewed. CONSTITUTIONAL: No apparent distress. HEENT: Neck Supple. No JVD. CHEST EXAMINATION: Lungs are diminished bases bilaterally to auscultation. HEART EXAMINATION: Regular rate and rhythm. S1, S2 heard. No murmurs, gallops or rub. ABDOMEN: Soft, nontender. Positive bowel sounds. EXTREMITIES: 2+ peripheral pulses, no lower extremity edema and no calf t enderness. NEUROLOGIC EXAMINATION: Patient is awake, alert and oriented to person only. ASSESSMENT Chest pain, atypical acute coronary syndrome has been ruled out, cardiac enzymes negative Shortness of breath Paroxysmal atrial fibrillation on Eliquis Hypertension Acute on chronic kidney disease Dementia Previous COVID-19 infection Bronchitis diagnosed at [facility] History asthma/COPD PLAN -Had an extensive conversation with patient's daughter, she states the patient has been having complaints of dyspnea on exertion frequently. Workup in the form of a stress test vs medical management was discussed and daughter would like stress test completed to rule out ischemia. Patient is also in agreement. -We will perform Lexiscan stress test today. -If stress test is normal, no further cardiac testing, and we will continue medical therapy. -If stress test is abnormal will have further discussion with daughter and patient in regards to invasive treatment vs. medical therapy Objective - Vital Signs Vital signs: Vital Signs Temp 97.5 F L 11/07/20 07:00 Pulse 68 11/07/20 07:00 Resp 18 11/07/20 08:00 BP 118/81 11/07/20 07:00 Pulse Ox 98 11/07/20 07:00 Intake & Output 11/06/20 11/07/20 11/07/20 18:59 06:59 18:59 Intake Total 120 Output Total 660 Balance 120 -660 Weight 67 kg 63 kg Intake: Oral 120 Output: Urine 660 Other: Voiding Method Toilet Diaper # Voids 1 4 - Labs CBC & Chem 7: 11/07/20 04:32 11/07/20 04:32 Labs: Abnormal Lab Results - Last 24 Hours (Table) 11/06/20 11/07/20 11/07/20 Range/Units 05:20 02:45 04:32 WBC 15.36 H (4.50-10.00) X 10*3/uL RBC 3.71 L (4.10-5.20) X 10*6/uL Hgb 11.6 L (12.0-15.0) g/dL Hct (37.2-46.3) % MCV 100.8 H (80.0-97.0) fL MCHC 31.0 L (32.0-37.0) g/dL Immature Gran # 0.16 H (0.00-0.04) X 10*3/uL Neutrophils # 12.46 H (1.80-7.70) X 10*3/uL Eosinophils # 0.01 L (0.04-0.35) X 10*3/uL BUN 22 H (7-17) mg/dL Creatinine 1.17 H (0.52-1.04) mg/dL Total Protein 5.5 L (6.3-8.2) g/dL Albumin 3.2 L (3.5-5.0) g/dL Ur Leukocyte Esterase Large H (Negative) Urine WBC 27 H (0-5) /hpf Urine Bacteria Rare H (None) /hpf 11/07/20 Range/Units 04:32 WBC (4.50-10.00) X 10*3/uL RBC 3.67 L (4.10-5.20) X 10*6/uL Hgb 11.2 L (12.0-15.0) g/dL Hct 36.5 L (37.2-46.3) % MCV 99.5 H (80.0-97.0) fL MCHC 30.7 L (32.0-37.0) g/dL Immature Gran # 0.10 H (0.00-0.04) X 10*3/uL Neutrophils # (1.80-7.70) X 10*3/uL Eosinophils # (0.04-0.35) X 10*3/uL BUN (7-17) mg/dL Creatinine (0.52-1.04) mg/dL Total Protein (6.3-8.2) g/dL Albumin (3.5-5.0) g/dL Ur Leukocyte Esterase (Negative) Urine WBC (0-5) /hpf Urine Bacteria (None) /hpf Microbiology - Last 24 Hours (Table) 11/06/20 22:45 Urine Culture - Preliminary Urine,Voided
[2020-11-07] MEDS: APIXABAN 5 MG TAB PO SCH ×2 (11:30→20:28)
[2020-11-07] MEDS: AMIODARONE 100 MG TAB PO SCH ×2 (11:30→20:28)
[2020-11-07] MEDS: METOPROLOL SUCCINATE (ER) 25 MG TAB.ER.24H PO SCH (11:30)
[2020-11-07] MEDS: PANTOPRAZOLE 40 MG TABLET PO SCH (11:31)
[2020-11-07] MEDS: hydrALAZINE HCL 25 MG TAB PO SCH ×3 (11:31→20:28)
[2020-11-07] MEDS: POTASSIUM CHLORIDE ER 10 MEQ TAB.ER.PRT PO SCH (11:31)
[2020-11-07] MEDS: MEMANTINE 5 MG TAB PO SCH (11:31)
[2020-11-07] MEDS: FERROUS SULFATE 325 MG TAB PO SCH (11:31)
[2020-11-07] MEDS: FUROSEMIDE 20 MG TAB PO SCH (11:31)
--- NOTE | 2020-11-07 11:41 | P.STRESS ---
- Stress Test Note Stress Test Results/Findings: Exam Performed: NM stress lexiscan cardiolite Exam Date: 11/07/20 Reason for Exam: CP Height: 5 ft 5 in Weight: 63 kg Protocol: LEXISCAN CARDIOLITE Stage: NA Duration of Exercise: NA Resting Heart Rate: 66 Resting Blood Pressure: 143/90 Maximum Achieved Heart Rate: 96 Maximum Achieved Blood Pressure: 171/95 85% PMHR: 123 100% PMHR: 145 METS: NA Technologist Comment: Stress Test Results/Findings: At baseline EKG showed normal sinus rhythm, normal axis, no significant ST or T- wave abnormalities. With Lexiscan infusion there was one episode of couplets, no significant ST or T-wave changes. Conclusions: 1. Normal EKG response to Lexiscan infusion 2. Nuclear imaging to be reported separately.
--- NOTE | 2020-11-07 12:31 | NM ---
EXAMINATION TYPE: NM stress lexiscan cardiolite DATE OF EXAM: 11/07/2020 COMPARISON: NONE HISTORY: Chest pain short of breath TECHNIQUE: After the intravenous administration of 11 mCi Tc 99m Sestamibi - Cardiolite resting SPEC T images acquired 56 minutes post injection. At peak stress 24.5 mCi Tc 99m Sestamibi - Stress images obtained 45 minutes post injection The patient was stressed with 0.4mg Lexiscan. FINDINGS: There is diminished radiotracer accumulation along the inferolateral wall near the cardiac base to th e midportion on the stress images. This has a more normal radiotracer distribution on the resting heather ges. Polar maps have a normal radiotracer distribution. Ejection fraction 79% is normal. IMPRESSION: 1. SPECT imaging suggests mild stress-induced defect along the inferior lateral wall, not identified on the polar maps or additional imaging correlate with EKG changes. 2. Normal ejection fraction of 79%
--- NOTE | 2020-11-07 15:12 | P.PN ---
Subjective Progress Note Date: 11/07/20 Patient seen at bedside and she states that she's doing well. She denies of any focal weakness, numbness, any visual disturbance. The patient nurse her stress test was positive Objective - Vital Signs Vital signs: Vital Signs Temp 97.5 F L 11/07/20 07:00 Pulse 68 11/07/20 07:00 Resp 18 11/07/20 08:00 BP 118/81 11/07/20 07:00 Pulse Ox 98 11/07/20 07:00 Intake & Output 11/06/20 11/07/20 11/07/20 18:59 06:59 18:59 Intake Total 120 Output Total 660 Balance 120 -660 Weight 67 kg 63 kg 63 kg Intake: Oral 120 Output: Urine 660 Other: Voiding Method Toilet Diaper # Voids 1 4 4 - Exam GENERAL: The patient is lying in bed and is not in acute distress. NEUROLOGICAL: Higher mental function: The patient is awake, alert, oriented to self. She stated she was in [facility] and said it was the year 2018. But could not tell me month. She is able to identify objects (pen, watch and glasses). Patient is following simple commands. No aphasia and no neglect. Cranial nerves: The pupils are round, equal and reactive to light and accommodation. Visual shea are full to confrontation throughout. Extraocular movement is intact no nystagmus is noted. Facial sensation is normal to touch throughout. The facial strength is normal throughout. Hearing is normal bilaterally to hand rub. Tongue is midline and moved [id number] without any difficulty. No dysarthria is noted. Shoulder shrug is normal bilaterally. Motor: Gait is deferred. The strength is 5 over 5 throughout. Normal tone and bulk. Cerebellum: Normal finger to nose bilaterally. Sensation: Sensation is normal to touch throughout. Reflexes (right/left): 2+ throughout. Plantars are downgoing bilaterally. WORK-UP: CT of the head is reported as cerebral atrophy and chronic small vessel ischemia. No acute intracranial abnormality. No changes compared to old exam. Limited 2-D echo was reported as left ventricle size is normal. Moderate concentric left ventricle hypertrophy. Ejection fraction 55-60%. MRI of the brain from outside facility on 10/31/2020 at [facility] is reported as extensive degenerative and nonspecific white matter changes most typical of a remote white matter microvascular ischemia. Slightly greater central component raises the possibility of a component of normal p ressure hydrocephalus in the differential diagnosis. Upon looking at the current CT of the head patient had atrophy she did have ventricles are dilated but the with comparison to the atrophy to the ventricles don't know of unconvinced she has apparently a component of normal pressure hydrocephalus NM stress Rangel can Cardiolite: Was reported as mild stress induced defect along the inferior lateral wall, not identified on the polar maps or additional imaging correlate with EKG changes. Ejection fraction of about 79%. - Labs CBC & Chem 7: 11/07/20 04:32 11/07/20 04:32 Labs: Abnormal Lab Results - Last 24 Hours (Table) 11/07/20 11/07/20 11/07/20 Range/Units 02:45 04:32 04:32 RBC 3.67 L (4.10-5.20) X 10*6/uL Hgb 11.2 L (12.0-15.0) g/dL Hct 36.5 L (37.2-46.3) % MCV 99.5 H (80.0-97.0) fL MCHC 30.7 L (32.0-37.0) g/dL Immature Gran # 0.10 H (0.00-0.04) X 10*3/uL BUN 22 H (7-17) mg/dL Creatinine 1.17 H (0.52-1.04) mg/dL Total Protein 5.5 L (6.3-8.2) g/dL Albumin 3.2 L (3.5-5.0) g/dL Ur Leukocyte Esterase Large H (Negative) Urine WBC 27 H (0-5) /hpf Urine Bacteria Rare H (None) /hpf Microbiology - Last 24 Hours (Table) 11/06/20 22:45 Urine Culture - Preliminary Urine,Voided Assessment and Plan Assessment: Chronic Unsteady balance that is reported to ED---currently on my examination has no balance issues. And had current recent MRI Brain at outside facility Chest pain with positive stress test. Shortness of breath Possible TIA on 06/2020 Leukocytosis was is trending down without any fever possibly due to underlying urinary tract infection Seizure disorder Cognitive impairment Age are fibrillation on Eliquis COVID-19 pneumonia in April 2020 Congestive heart failure COPD Plan: * Because of the patient's sensation of on chronic balance problem I don't recommend antiplatelet in addition with that the anticoagulation. Currently she is on Eliquis 5 mg twice a day and that is to be continued. If the stephanie conroy has risks of falls/recurrent falls, then I would not recommend anticoagulation possibly consider antiplatelet instead. * Continue Lipitor 20 mg daily at bedtime for secondary stroke prophylaxis. * Physical therapy and occupation therapy are consulted * I'll not repeat any imaging of the brain since she had a recent CT of the head in our facility on this admission and had MRI of the brain at outside facility on 10/31/2020 and is reported as slightly greater central compartment raises the possibility of normal pressure hydrocephalus. Upon looking at the CT of the head I was not totally convinced she had a pure normal pressure hydrocephalus. I recommended the patient to follow-up with a neurologist as an outpatient and possible consider further workup such as a lumbar puncture and if there is any improvement from pre-to post on her walk-in then I would recommend a [employer] shunt. * She had recent vitamin B12, folate as well TSH checked on the 06/2020 admission and it does not need to be repeated. Will get repeat HbA1c (last was in 2019) to rule out uncontrolled DM that would cause neuropathy. We'll defer her sugar control to the primary team. If the hemoglobin A1c is negative possibly consider EMG with nerve conduction study as an outpatient to rule out neuropathy. * ID team is on board * Cardiology team is is on board * We'll defer the rest of the medical measure the primary team * Upon discharge patient needs to follow up with a neurologist within 2 weeks. The plan is discussed with the nurse. There is no further neurological work-up. Neurology will sign off. Please reconsult if needed. Suleman Chandler M.D. Neuro-hospitalist Time with Patient: Less than 30
[2020-11-07 19:00] LABS: Erythrocyte Sedimentation Rate 6 mm/Hr (0-30)
[2020-11-07] MEDS: MONTELUKAST 10 MG TAB PO SCH (20:28)
[2020-11-07] MEDS: ATORVASTATIN 20 MG TAB PO SCH (20:28)
--- NOTE | 2020-11-08 01:33 | PN ---
PROGRESS NOTE Positive stress test. Waiting for Cardiology. Possibly will need a cardiac catheterization done. Remains on Rocephin for possible aspiration pneumonia. Continue on hypertension and GERD medications. Cardiovascular: S1-S2. Lungs clear. GI soft. Hematology: Negative Homans. Psych: Fair mood and affect. ASSESSMENT: 1. Aspiration pneumonia. 2. Atypical chest pain. 3. Dizziness. 4. Abnormal stress test. Prognosis guarded. Will need heart catheterization. Continue current home medicines. MMODL / IJN: [id number] /
--- NOTE | 2020-11-08 06:42 | PN ---
PROGRESS NOTE DATE OF SERVICE: 11/07/2020. FOLLOW UP: Leukocytosis, possible UTI. INTERVAL HISTORY: The patient is afebrile. The patient is currently breathing comfortably. The patient denies any chest pain. Occasional cough. No abdominal pain. No diarrhea. PHYSICAL EXAMINATION: Blood pressure 117/78 with a pulse of 82, temperature 98.2. She is 96% on 4 L nasal cannula. General description is an elderly female lying in bed in no distress. Respiratory system: Unlabored breathing, decreased intensity of breath sounds. No wheeze. Heart S1, S2. Regular rate and rhythm. Abdomen soft, no tenderness. LABS: Hemoglobin is 11.1, white count 8.6, BUN of 22, creatinine 1.17. Repeat urine is mildly positive. DIAGNOSTIC IMPRESSION AND PLAN: Patient with leukocytosis, could be related to a urinary tract infection from enteric Gram-negative pathogen. The patient white count has responded to Rocephin that will be continued while waiting for the culture to finalize. Continue supportive care. MMODL / IJN: [id number] /
[2020-11-08] MEDS ORDERED: FERROUS SULFATE 325 MG TAB PO ONE (09:00)
[2020-11-08] MEDS ORDERED: METOPROLOL SUCCINATE (ER) 25 MG TAB.ER.24H PO ONE (09:00)
[2020-11-08] MEDS ORDERED: AMIODARONE 100 MG TAB ONE (09:00)
[2020-11-08] MEDS ORDERED: POTASSIUM CHLORIDE ER 10 MEQ TAB.ER.PRT PO ONE (09:00)
[2020-11-08] MEDS ORDERED: APIXABAN 5 MG TAB ONE (09:00)
[2020-11-08] MEDS ORDERED: SODIUM CHLORIDE 0.9% 50 ML BAG ONE (09:00)
[2020-11-08] MEDS ORDERED: hydrALAZINE HCL 25 MG TAB ONE ×2 (09:00)
[2020-11-08] MEDS ORDERED: MEMANTINE 5 MG TAB ONE (09:00)
[2020-11-08] MEDS ORDERED: FUROSEMIDE 20 MG TAB ONE (09:00)
[2020-11-08] MEDS ORDERED: cefTRIAXone 1 GM VIAL ONE (09:00)
[2020-11-08] MEDS ORDERED: PANTOPRAZOLE 40 MG TABLET PO ONE (09:00)
[2020-11-08] MEDS: FUROSEMIDE 20 MG TAB PO SCH (11:24)
[2020-11-08] MEDS: APIXABAN 5 MG TAB PO SCH ×2 (11:24→19:51)
[2020-11-08] MEDS: hydrALAZINE HCL 25 MG TAB PO SCH ×3 (11:24→23:07)
[2020-11-08] MEDS: AMIODARONE 100 MG TAB PO SCH ×2 (11:24→19:51)
[2020-11-08] MEDS: FERROUS SULFATE 325 MG TAB PO SCH (11:24)
[2020-11-08] MEDS: MEMANTINE 5 MG TAB PO SCH (11:24)
[2020-11-08] MEDS: METOPROLOL SUCCINATE (ER) 25 MG TAB.ER.24H PO SCH (11:25)
[2020-11-08] MEDS: PANTOPRAZOLE 40 MG TABLET PO SCH (11:25)
[2020-11-08] MEDS: POTASSIUM CHLORIDE ER 10 MEQ TAB.ER.PRT PO SCH (11:25)
--- NOTE | 2020-11-08 11:34 | PN ---
PROGRESS NOTE Lisbet Dobbins is in room 630. Mrs Dobbins had a stress test yesterday. There was a question of ischemia. I have reviewed the nuclear scan myself. Ejection fraction is well preserved and I do not believe there is any significant area of ischemia. Patient's family was going to come in to discuss various options. Under the circumstances, I am recommending that she can be discharged and follow up with Dr. Ontiveros as an outpatient. Her vitals are stable. There is no JVD or carotid bruit. She has paroxysmal atrial fibrillation. She is maintaining sinus rhythm. S1, S2 with a short systolic murmur audible. Lungs are clear. Abdomen is soft, nontender. Lower extremities reveal diminished pulses. Central nervous system is normal. Nuclear scan reviewed. Ejection fraction is normal. Contractility is vigorous. There is a questionable mild intensity, small-sized, partially reversible inferolateral defect which I believe can be treated medically, even if it is ischemia. I discussed my thoughts in detail with the patient. She can be discharged on medical therapy today and see Dr. Ontiveros. MMODL / IJN: [id number] /
--- NOTE | 2020-11-08 17:57 | PN ---
PROGRESS NOTE DATE OF SERVICE: 11/08/2020 REASON FOR FOLLOWUP: Leukocytosis, possible UTI. INTERVAL HISTORY: The patient is afebrile. The patient is feeling better, breathing comfortably. No chest pain or shortness of breath. Occasional cough. No abdominal pain or diarrhea. PHYSICAL EXAMINATION: Blood pressure 103/66, pulse of 81, temperature 98.8. She is 100% on room air. GENERAL DESCRIPTION: General description is an elderly female lying in bed in no distress. RESPIRATORY SYSTEM: Unlabored breathing. Decreased intensity of breath sounds. No wheeze. HEART: S1, S2. Regular rate and rhythm. ABDOMEN: Soft. No tenderness. LABS: Hemoglobin is 11.2, white count 8.7, BUN of 22, creatinine 1.17. DIAGNOSTIC IMPRESSION AND PLAN: Patient with elevated white count. Concern for possible UTI. The patient's white count responded to Rocephin; to continue and finish therapy with a short course of oral Ceftin and close outpatient followup. MMODL / IJN: [id number] /
[2020-11-08] MEDS: MONTELUKAST 10 MG TAB PO SCH (19:51)
[2020-11-08] MEDS: ATORVASTATIN 20 MG TAB PO SCH (19:51)
--- NOTE | 2020-11-09 00:56 | PN ---
PROGRESS NOTE 75-year-old remains positive for UTI on IV Rocephin until final cultures are better. She has abnormal stress test. Cardiology wants to treat her medically, and not do a heart catheterization. She has history atrial fibrillation, rapid ventricular response. Vital signs stable. Cardiovascular S1-S2. Lungs clear. GI soft. Hematology negative Homans. Prognosis is guarded. Treat for UTI. Otherwise PT, OT, oral antibiotics for heart disease. Prognosis guarded. MMODL / IJN: [id number] /
[2020-11-09] MEDS: APIXABAN 5 MG TAB PO SCH (08:42)
[2020-11-09] MEDS: METOPROLOL SUCCINATE (ER) 25 MG TAB.ER.24H PO SCH (08:42)
[2020-11-09] MEDS: FERROUS SULFATE 325 MG TAB PO SCH (08:42)
[2020-11-09] MEDS: PANTOPRAZOLE 40 MG TABLET PO SCH (08:42)
[2020-11-09] MEDS: MEMANTINE 5 MG TAB PO SCH (08:42)
[2020-11-09] MEDS: AMIODARONE 100 MG TAB PO SCH (08:42)
[2020-11-09] MEDS: FUROSEMIDE 20 MG TAB PO SCH (08:42)
[2020-11-09] MEDS: POTASSIUM CHLORIDE ER 10 MEQ TAB.ER.PRT PO SCH (08:42)
[2020-11-09] MEDS: hydrALAZINE HCL 25 MG TAB PO SCH ×2 (09:37→15:31)
--- NOTE | 2020-11-09 10:52 | P.PN ---
Subjective Progress Note Date: 11/09/20 Principal diagnosis: Acute hypoxic respiratory failure appears to have mild exacerbation of CHF however associated community-acquired pneumonia cannot be excluded COPD not in exacerbation Atypical chest pain Dizziness lightheadedness of unclear etiology workup is in progress Hypertension hypertensive cardiovascular disease Chronic atrial fibrillation Advanced dementia and Alzheimer's disease 11/09/2020, patient seen eval examined during the rounds labs reviewed medicati ons reviewed care plan discussed, respiratory status remains stable denies any chest pain or shortness of breath cough is improved, patient has been getting gentle diuresis, currently on bronchodilators as needed, with direct oral anticoagulant also on broad-spectrum antibiotics, and labs from today reviewed hemoglobin remained stable at 11.2, white cell count down to 8600, urine positive for leukocyte esterase, has been on IV Rocephin, this morning she woke up with the intermittent twitching on the right side of the face, neurology has been following will monitor observe closely, discussed with RN Patient is a 75-year-old female with baseline of dementia, patient is overall a poor historian, came into the hospital with the wide variety of symptoms extends from shortness of breath to chest pressure and confusion, patient has been hospitalized here as well as a cure on recently, complains were somehow similar however blood pressure remains a problem at that time, it appears that data r evealed a MRI done about 3 days ago, symptoms have been relapse in addition patient is not sleeping has been anxious, cardiology has been consulted for chest pain, and is scheduled for a stress test, patient has chronic balance issues as well, walking on her own has been a challenge, on specific questioning she denies any cough or sputum production, past medical history significant for chronic iron deficiency anemia, chronic persistent asthma, dementia Alzheimer's disease, congestive heart failure preserved ejection fraction, hypertension hypertensive cardiovascular disease, chronic atrial fibrillation, Other active medical problems include dyslipidemia and chronic kidney disease seizure disorder chronic vascular insufficiency, aortic aneurysm, UTI, nephrolithiasis, chest x-ray on arrival has been unremarkable, CT of the brain chronic atrophic changes were seen no acute finding identified, ultrasound of the abdomen has been positive for cyst in the right kidneys, renal calculi has been seen nonobstructing on the right kidney, computed tomography scan of the chest without contrast revealed presence of emphysema predominantly in the lower lobes along with scarring or active infiltrate identified, 4.2 cm ascending aortic aneurysm seen with mild cardiomegaly, patient has elevated WBC count of 15,000 however came down to 8000. Creatinine was 18/1.05 slightly up 1.17, patient had been on 4 L oxygen saturation is 98%, now blood pressure is well controlled, oxygen saturation 98% room air, patient is on IV Rocephin continuation of her home medications including direct anticoagulants Objective - Vital Signs Vital signs: Vital Signs Temp 98.3 F 11/09/20 02:00 Pulse 63 11/09/20 09:35 Resp 15 11/09/20 08:00 BP 130/80 11/09/20 09:35 Pulse Ox 99 11/09/20 09:35 Intake & Output 11/08/20 11/09/20 11/09/20 18:59 06:59 18:59 Intake Total 50 50 Balance 50 50 Weight 63.6 kg Intake: IV 50 cefTRIAXone 1 gm In 50 Sodium Chloride 0.9% 50 ml @ 100 mls/hr IVPB Q12HR [facility] Rx#:[id number] Intake, IV Titration 50 Amount cefTRIAXone 1 gm In 50 Sodium Chloride 0.9% 50 ml @ 100 mls/hr IVPB Q12HR [facility] Rx#:[id number] Other: Voiding Method Toilet Diaper # Voids 3 1 - Exam - Constitutional General appearance: average body habitus, cooperative, disheveled - EENT Eyes: PERRLA ENT: hearing grossly normal Ears: bilateral: normal - Neck Carotids: bilateral: upstroke normal Thyroid: bilateral: normal size - Respiratory Respiratory: bilateral: CTA - Cardiovascular Rhythm: regular Heart sounds: normal: S1, S2 - Gastrointestinal General gastrointestinal: soft - Integumentary Integumentary: normal turgor - Psychiatric Psychiatric: A&O x's 3, appropriate affect, intact judgment & insight - Labs CBC & Chem 7: 11/07/20 04:32 11/07/20 04:32 Labs: Microbiology - Last 24 Hours (Table) 11/06/20 22:45 Urine Culture - Final Urine,Voided Assessment and Plan Assessment: Acute hypoxic respiratory failure appears to have mild exacerbation of CHF however associated community-acquired pneumonia cannot be excluded Urinary tract infection COPD not in exacerbation Atypical chest pain Dizziness lightheadedness of unclear etiology workup is in progress Hypertension hypertensive cardiovascular disease Chronic atrial fibrillation Advanced dementia and Alzheimer's disease Plan: Results of stress test reviewed Continue bronchodilators Hold on steroids Continue antibiotics for now however at the time of discharge can be switched to by mouth Continue gentle diuresis Further recommendations pending plan of care as per clinical response of the patient Time with Patient: Greater than 30
[2020-11-09 14:05] VITALS: BP 115/75; PULSE 74; RESP 16; TEMP 98
--- NOTE | 2020-11-09 16:37 | PN ---
PROGRESS NOTE DATE OF SERVICE: 11/09/2020. REASON FOR FOLLOWUP: Leukocytosis, possible UTI. INTERVAL HISTORY: Patient is afebrile. The patient is feeling better. She is breathing comfortably. No chest pain or cough. No abdominal pain, no diarrhea. PHYSICAL EXAMINATION: Blood pressure 115/75, pulse of 74, temperature 98. She is 97% on room air. General description is an elderly female up in the bed in no distress. Respiratory system unlabored breathing, decreased intensity of breath sounds. No wheeze. Heart S1, S2. Regular rate and rhythm. LABS: Hemoglobin is 11.8, white count 8.6, BUN of 22, creatinine 1.17. DIAGNOSTIC IMPRESSION AND PLAN: Patient with elevated white count, possible UTI. Did have positive UA. Overall improvement on Rocephin. Finish therapy short course of oral Ceftin and close outpatient followup. MMODL / IJN: [id number] /
[2020-11-09] MEDS ORDERED: CEFDINIR 300 MG CAP PO SCH (21:00)
--- NOTE | 2020-11-09 22:44 | P.DS ---
Providers Date of admission: 11/07/20 10:33 Expected date of discharge: 11/09/20 Attending physician: Lalo Nguyen Consults: 11/05/20 18:49 Consult Physician Urgent Consulting Provider: Suleman Chandler Consult Reason/Comments: balance problems Do you want consulting provider notified?: Yes Consult Physician Urgent Consulting Provider: Yen Cotton Consult Reason/Comments: cp Do you want consulting provider notified?: Yes 11/06/20 00:49 Consult Physician Routine Consulting Provider: Mary Alice Marks Consult Reason/Comments: wbc Do you want consulting provider notified?: Yes 11/06/20 23:19 Consult Physician Routine Consulting Provider: Jovanny Mcbride Consult Reason/Comments: dyspnea Do you want consulting provider notified?: Yes Primary care physician: [place] Hospital Course: Hospital course: Patient presented to ER with not feeling well. Some shortness of breath. Some chest pain. Some lightheadedness. Has been chronically off-balance. Check stat x-ray was negative for any acute disease. Computed tomography scan of the brain showed cerebral atrophy and chronic small vessel ischemia. 2-D echocardiogram Cordarone moderate concentric LVH. EF 55-60%. Abdominal ultrasound: Nonobstructing stone on the right kidney. Computed tomography scan of the chest: 57 minutes changes. Mild cardiomegaly. 4.2 cm ascending aortic aneurysm. Nuclear stress test mild stressed induced defect was noted. Patient seen by Dr. ROB Cotton. Cleared for discharge. She has known paroxysmal atrial fibrillation. Has been in sinus rhythm. Patient seen by Dr. Marks from ID. To finish her oral course of Ceftin. For UTI. Today she ate fairly well. Otherwise comfortable. Laying in bed. Patient will follow with Dr. Nguyen, cardiology, neurology Consultation: Dr. Marks from ID Dr. Mcbride from pulmonary Dr. ROB Cotton from cardiology Dr. Jackson from neurology On examination: 98, 74, 16, 150-75, 97% room air Gen. appearance: Laying in bed after verbal Lungs: Rate normal, decreased breath sounds Psych: Awake, answering simple questions Assessment plan: -Acute UTI with cystitis -Hyperlipidemia -Essential hypertension -Ascending aorta aneurysm 4.2 cm -Kidney stones, asymptomatic -Chronic kidney disease stage III likely nephrosclerosis -Paroxysmal atrial fibrillation, currently in sinus rhythm -Cognitive impairment Disposition: Home Plan - Discharge Summary Discharge Rx Participant: No New Discharge Prescriptions: New Cefdinir [Omnicef] 300 mg PO BID 10 Days #20 cap Atorvastatin [Lipitor] 20 mg PO HS 90 Days #90 tab Continue Ferrous Sulfate [Iron (65 MG Elemental)] 325 mg PO DAILY Montelukast Sodium [Singulair] 10 mg PO HS HYDROcodone/APAP 5-325MG [[place] 5-325] 1 tab PO Q12H PRN PRN Reason: Pain Furosemide [Lasix] 20 mg PO DAILY Omeprazole 20 mg PO DAILY Metoprolol Succinate (ER) [Toprol XL] 25 mg PO DAILY 90 Days #90 tablet Amiodarone [Cordarone] See Taper PO BID Memantine [Namenda] 5 mg PO DAILY Albuterol Sulfate [Ventolin HFA] 2 puff INHALATION RT-QID PRN PRN Reason: Shortness Of Breath Apixaban [Eliquis] 5 mg PO BID #60 tab Potassium Chloride [Potassium Chloride ER] 8 meq PO DAILY Nitroglycerin Sl Tabs [Nitrostat] 0.4 mg SUBLINGUAL Q5M PRN 100 Days #100 tab PRN Reason: Chest Pain hydrALAZINE HCL 25 mg PO TID Discharge Medication List Ferrous Sulfate [Iron (65 MG Elemental)] 325 mg PO DAILY 04/27/18 [History] Montelukast Sodium [Singulair] 10 mg PO HS 10/01/19 [History] Albuterol Sulfate [Ventolin HFA] 2 puff INHALATION RT-QID PRN 05/05/20 [History] Memantine [Namenda] 5 mg PO DAILY 05/05/20 [History] Apixaban [Eliquis] 5 mg PO BID #60 tab 05/06/20 [Rx] HYDROcodone/APAP 5-325MG [[place] 5-325] 1 tab PO Q12H PRN 06/08/20 [History] Furosemide [Lasix] 20 mg PO DAILY 10/24/20 [History] Omeprazole 20 mg PO DAILY 10/24/20 [History] Potassium Chloride [Potassium Chloride ER] 8 meq PO DAILY 10/24/20 [History] Metoprolol Succinate (ER) [Toprol XL] 25 mg PO DAILY 90 Days #90 tablet 10/27/20 [Rx] Nitroglycerin Sl Tabs [Nitrostat] 0.4 mg SUBLINGUAL Q5M PRN 100 Days #100 tab 10/27/20 [Rx] Amiodarone [Cordarone] See Taper PO BID 11/05/20 [History] hydrALAZINE HCL 25 mg PO TID 11/05/20 [History] Atorvastatin [Lipitor] 20 mg PO HS 90 Days #90 tab 11/09/20 [Rx] Cefdinir [Omnicef] 300 mg PO BID 10 Days #20 cap 11/09/20 [Rx] Follow up Appointment(s)/Referral(s): Noble Ontiveros DO [STAFF PHYSICIAN] - 2 Weeks (Call office on Tuesday morning to make appointment) Lalo Nguyen MD [Primary Care Provider] - 1-2 days (Will need referral from Dr Nguyen for Neurology appointment 2 weeks) Jovanny Mcbride MD [STAFF PHYSICIAN] - 1 Week (Please call office on Tuesday to make appointment) Patient Instructions/Handouts: Chest Pain (DC), Urinary Tract Infection in Women (DC), Heart Healthy Diet (DC) Discharge Disposition: HOME SELF-CARE
--- NOTE | 2020-11-12 07:41 | CDI ---
Documentation Clarification Form Date: 11/12/2020 07:07:07 AM From: Becca Hill CCS, CCDS Admit Date: 11/07/2020 10:33:00 AM Patient Name: Lisbet Dobbins Visit Number: [id number] Discharge Date: 11/09/2020 04:49:00 PM ATTENTION: The Clinical Documentation Specialists (CDI) and [facility] Coding Staff appreciate your assistance in clarifying documentation. Please respond to the clarification below the line at the bottom and electronically sign. The CDI & [facility] Coding staff will review the response and follow-up if needed. Please note: Queries are made part of the Legal Health Record. If you have any questions, please contact the author of this message via ITS. Dr. Beni Rose: The patient presented with the following clinical indicators: Chest pain & pressure, anxious, not sleeping. Recently discharged a week ago with similar signs/symptoms. Also complaining of lightheadedness & headaches with difficulty walking on her own. Additional clarification regarding the patient's diagnoses is requested. History/Risk Factors per the 11/05 ED Note: Asthma, COPD, Dementia, Hyperlipidemia, Hypertension, Memory Impairment, Seizure Disorder, UTI/Cystitis, Nephrolithiasis and Anxiety. Clinical Indicators: Presented to the ED on 11/05 with the above mentioned signs/symptoms with family, Oriented to self only, confused conversation. Chest pain and Balance problem. History and presenting complaints per the 11/06 H/P: Recent COVID 19 Infection (Spring 2020), Bronchitis, Paroxysmal Atrial Fibrillation, CKD and Dementia. Complaining of chest pain, thought she was in [place], has been in the hospital 4 times in the past few weeks, SOB w/deep breaths possibly due to COVID inflammation in the lungs. Recently discharged for A Fib. 11/05 VS: T 98.8, P 99 - 72 (regular), R 20, BP 131/76, PO 97 RA - 97 3Lnc, BMI 23.3 11/06 VS: T 98, P 77, R 16 (SOB), BP 141/88 - 116/51, PO 100 4Lnc 11/07 VS: T 97.5, PP 68, R 20 - 18 (SOB), BP 118/81, PO 98 4Lnc - 98 RA 11/05 LAB: WBC 22.6, Neut 20.7, Lymph 0.9; APTT 21.1, Cl 109, Lactic Acid 2.3, 2.5, 1.5; Calcium 11.0, BNP 2570, Total Protein 5.9. UA: Clear, Trace Protein, Trace ketones, Large Esterase, WBC 5 11/06 Urine Culture: Negative (final) 11/05 CXR: No evidence for acute pulmonary disease. 11/07 CT Chest: [id number] chronic emphysematous change with mild lower lung linear scarring. No acute pulmonary infiltrate currently. Mild cardiomegaly with 4.2 cm ascending aortic aneurysm. Treatment 11/05: IV Na Cl 1,000 mls @ 75 mls/hr q13H, IV Rocephin q12H, O2 2- 3Lnc. 11/06: INH Ventolin, po Lasix 20 mg, Nitro sl, po Apresoline, O2 4Lnc. 11/07 Stress Test: Normal EKG. 11/06 Cardiology Consult: Atypical Chest Pain, ACS ruled out. 11/06 Neurology Consult: Chronic balance problems, recommend Antiplatelet instead of Anticoagulation. 11/06 Infectious Disease Consult: Elevated WBC, no obvious focus of infection. 11/07 Pulmonary Consult: Acute Hypoxic Respiratory Failure appears to have mild exacerbation of CHF, Community Acquired Pneumonia not excluded. 11/07 Attending Progress Note: Remains on Rocephin for possible Aspiration Pneumonia In your professional opinion, please clarify if these findings signify one of the following conditions: [ ] Sepsis POA, specify cause if known: [ ] Sepsis, Not POA [ ] Pneumonia [ ] Community Acquired Pneumonia [ ] Aspiration Pneumonia [ ] Pneumonia Ruled out [ ] Other, please specify [ ] Unable to determine No sepsis. No pneumonia. (Template Last Reviewed: March 2020) EH
--- NOTE | 2020-11-12 07:48 | CDI ---
Documentation Clarification Form Date: 11/12/2020 07:43:20 AM From: Becca Hill CCS, CCDS Admit Date: 11/07/2020 10:33:00 AM Patient Name: Lisbet Dobbins Visit Number: [id number] Discharge Date: 11/09/2020 04:49:00 PM ATTENTION: The Clinical Documentation Specialists (CDI) and [facility] Coding Staff appreciate your assistance in clarifying documentation. Please respond to the clarification below the line at the bottom and electronically sign. The CDI & [facility] Coding staff will review the response and follow-up if needed. Please note: Queries are made part of the Legal Health Record. If you have any questions, please contact the author of this message via ITS. Dr. Jovanny Mcbride: Acute Hypoxic Respiratory Failure is documented in the 11/07 Pulmonary Consult and subsequent Progress Note on 11/09. The patient presented with the following clinical indicators: Chest pain & pressure, anxious, not sleeping. Recently discharged a week ago with similar signs/symptoms. Also complaining of lightheadedness & headaches with difficulty walking on her own. Additional clarification regarding Respiratory Failure is requested. History/Risk Factors per the 11/05 ED Note: Asthma, COPD, Dementia, Hyperlipidemia, Hypertension, Memory Impairment, Seizure Disorder, UTI/Cystitis, Nephrolithiasis and Anxiety. Clinical Indicators: Presented to the ED on 11/05 with the above mentioned signs/symptoms with family, Oriented to self only, confused conversation. Chest pain and Balance problem. History and presenting complaints per the 11/06 H/P: Recent COVID 19 Infection (Spring 2020), Bronchitis, Paroxysmal Atrial Fibrillation, CKD and Dementia. Complaining of chest pain, thought she was in [place], has been in the hospital 4 times in the past few weeks, SOB w/deep breaths possibly due to COVID inflammation in the lungs. Recently discharged for A Fib. 11/05 VS: T 98.8, P 99 - 72 (regular), R 20, BP 131/76, PO 97 RA - 97 3Lnc, BMI 23.3 11/06 VS: T 98, P 77, R 16 (SOB), BP 141/88 - 116/51, PO 100 4Lnc 11/07 VS: T 97.5, PP 68, R 20 - 18 (SOB), BP 118/81, PO 98 4Lnc - 98 RA 11/05 LAB: WBC 22.6, Neut 20.7, Lymph 0.9; APTT 21.1, Cl 109, Lactic Acid 2.3, 2.5, 1.5; Calcium 11.0, BNP 2570, Total Protein 5.9. 11/05 CXR: No evidence for acute pulmonary disease. 11/07 CT Chest: [id number] chronic emphysematous change with mild lower lung linear scarring. No acute pulmonary infiltrate currently. Mild cardiomegaly with 4.2 cm ascending aortic aneurysm. Treatment 11/05: IV Na Cl 1,000 mls @ 75 mls/hr q13H, IV Rocephin q12H, O2 2- 3Lnc. 11/06: INH Ventolin, po Lasix 20 mg, Nitro sl, po Apresoline, O2 4Lnc. 11/07 Stress Test: Normal EKG. 11/06 Cardiology Consult: Atypical Chest Pain, ACS ruled out. 11/06 Infectious Disease Consult: Elevated WBC, no obvious focus of infection. 11/07 Pulmonary Consult: Acute Hypoxic Respiratory Failure appears to have mild exacerbation of CHF, Community Acquired Pneumonia not excluded. 11/07 Attending Progress Note: Remains on Rocephin for possible Aspiration Pneumonia Please clarify the following appropriate diagnosis for the patient: [ ] Acute Hypoxic Respiratory Failure [ ] Acute on Chronic Hypoxic Respiratory Failure [ ] Chronic Hypoxic Respiratory Failure [ ] Acute Respiratory Insufficiency [ ] Acute Hypoxic Respiratory Failure ruled out [ ] Other Diagnosis, please specify [ ] Unable to determine (Template Last Revised: April 2020) MTDD
--- NOTE | 2020-11-12 07:55 | CDI ---
Documentation Clarification Form Date: 11/12/2020 07:49:40 AM From: Becca HillLAURA henderson, CCDS Admit Date: 11/07/2020 10:33:00 AM Patient Name: Lisbet Dobbins Visit Number: [id number] Discharge Date: 11/09/2020 04:49:00 PM ATTENTION: The Clinical Documentation Specialists (CDI) and [facility] Coding Staff appreciate your assistance in clarifying documentation. Please respond to the clarification below the line at the bottom and electronically sign. The CDI & [facility] Coding staff will review the response and follow-up if needed. Please note: Queries are made part of the Legal Health Record. If you have any questions, please contact the author of this message via ITS. Dr. Jovanny Mcbride: CHF is documented in the 11/07 Pulmonary Consult and 11/09 Progress Note without further specificity, CHF is not documented by the Cardiology Consulting physician. The patient presented with the following clinical indicators: Chest pain & pressure, anxious, not sleeping. Recently discharged a week ago with similar signs/symptoms. Also complaining of lightheadedness & headaches with difficulty walking on her own. Additional clarification regarding Heart Failure is requested. History/Risk Factors per the 11/05 ED Note: Asthma, COPD, Dementia, Hyperlipidemia, Hypertension, Memory Impairment, Seizure Disorder, UTI/Cystitis, Nephrolithiasis and Anxiety. Clinical Indicators: Presented to the ED on 11/05 with the above mentioned signs/symptoms with family, Oriented to self only, confused conversation. Chest pain and Balance problem. History and presenting complaints per the 11/06 H/P: Recent COVID 19 Infection (Spring 2020), Bronchitis, Paroxysmal Atrial Fibrillation, CKD and Dementia. Complaining of chest pain, thought she was in [place], has been in the hospital 4 times in the past few weeks, SOB w/deep breaths possibly due to COVID inflammation in the lungs. Recently discharged for A Fib. 11/05 VS: T 98.8, P 99 - 72 (regular), R 20, BP 131/76, PO 97 RA - 97 3Lnc, BMI 23.3 11/06 VS: T 98, P 77, R 16 (SOB), BP 141/88 - 116/51, PO 100 4Lnc 11/07 VS: T 97.5, PP 68, R 20 - 18 (SOB), BP 118/81, PO 98 4Lnc - 98 RA 11/05 LAB: WBC 22.6, Neut 20.7, Lymph 0.9; APTT 21.1, Cl 109, Lactic Acid 2.3, 2.5, 1.5; Calcium 11.0, BNP 2570, Total Protein 5.9. 11/05 CXR: No evidence for acute pulmonary disease. 11/07 CT Chest: [id number] chronic emphysematous change with mild lower lung linear scarring. No acute pulmonary infiltrate currently. Mild cardiomegaly with 4.2 cm ascending aortic aneurysm. 11/06 ECHO: Left ventricular size is normal. Moderate concentric LVH. Overall left ventricular systolic function is normal w/EF 55-60%. Treatment 11/05: IV Na Cl 1,000 mls @ 75 mls/hr q13H, IV Rocephin q12H, O2 2- 3Lnc. 11/06: INH Ventolin, po Lasix 20 mg (home dose), Nitro sl, po Apresoline, O2 4Lnc. 11/07 Stress Test: Normal EKG. 11/06 Cardiology Consult: Atypical Chest Pain, ACS ruled out. 11/06 Infectious Disease Consult: Elevated WBC, no obvious focus of infection. 11/07 Pulmonary Consult: Acute Hypoxic Respiratory Failure appears to have mild exacerbation of CHF, Community Acquired Pneumonia not excluded. 11/07 Attending Progress Note: Remains on Rocephin for possible Aspiration Pneumonia In your professional opinion, can you please clarify the diagnosis of CHF: [ ] Acute Diastolic Heart Failure [ ] Chronic Diastolic Heart Failure [ ] Acute on Chronic Diastolic Heart Failure [ ] Heart Failure is ruled out [ ] Other, please specify [ ] Unable to determine (Template Last Revised: March 2020) MTDD
== END 2020-11-09 16:49 | disposition home or self-care (01) | DRG 313 ==
LOC: EC 12:31 → 6NMEDSUR 19:25 → OBSVTOIN 11-07 10:33
PROVIDERS: ADMIT Family Medicine; ATTEND Family Medicine
DX: R07.89 Other chest pain (principal); J69.0 Pneumonitis due to inhalation of food and vomit; J96.01 Acute respiratory failure with hypoxia; I13.0 Hypertensive heart and chronic kidney disease with heart failure and stage 1 through stage 4 chronic kidney disease, or unspecified chronic kidney disease; I71.9 Aortic aneurysm of unspecified site, without rupture; I48.0 Paroxysmal atrial fibrillation; I71.2 Thoracic aortic aneurysm, without rupture; J43.9 Emphysema, unspecified; I50.9 Heart failure, unspecified; N18.9 Chronic kidney disease, unspecified; G30.9 Alzheimer's disease, unspecified; G40.909 Epilepsy, unspecified, not intractable, without status epilepticus; F02.80 Dementia in other diseases classified elsewhere, unspecified severity, without behavioral disturbance, psychotic disturbance, mood disturbance, and anxiety; R41.3 Other amnesia; N30.90 Cystitis, unspecified without hematuria; F41.9 Anxiety disorder, unspecified; B94.8 Sequelae of other specified infectious and parasitic diseases; N20.0 Calculus of kidney; R42 Dizziness and giddiness; D50.9 Iron deficiency anemia, unspecified; I34.0 Nonrheumatic mitral (valve) insufficiency; R51.9 Headache, unspecified; R26.81 Unsteadiness on feet; E78.5 Hyperlipidemia, unspecified; K21.9 Gastro-esophageal reflux disease without esophagitis; Z98.890 Other specified postprocedural states; Z90.710 Acquired absence of both cervix and uterus; Z98.51 Tubal ligation status; Z96.642 Presence of left artificial hip joint; Z88.1 Allergy status to other antibiotic agents; Z88.8 Allergy status to other drugs, medicaments and biological substances; Z79.899 Other long term (current) drug therapy; Z79.01 Long term (current) use of anticoagulants; Z87.440 Personal history of urinary (tract) infections; Z87.442 Personal history of urinary calculi; Z87.01 Personal history of pneumonia (recurrent); Z86.73 Personal history of transient ischemic attack (TIA), and cerebral infarction without residual deficits; Z79.82 Long term (current) use of aspirin
CPT/HCPCS: 36415; 70450; 71046; 71250; 76700; 78452; 80053; 81001; 83036; 83605; 83880; 84145; 84484; 85025; 85610; 85652; 85730; 86140; 87086; 93005; 93017; 93308; 94640; 96360; 96361; 99285

== ENCOUNTER 2021-02-01 16:49 | Emergency (ER) | payer MEDICARE ==
[2021-02-01 18:10] VITALS: BP 138/87; PULSE 77; RESP 18; TEMP 98
--- NOTE | 2021-02-01 18:58 | XR ---
EXAMINATION TYPE: XR Hip Complete RT DATE OF EXAM: 02/01/2021 CLINICAL HISTORY: Shortness of breath, right hip pain TECHNIQUE: AP and frogleg views of the right hip are obtained. COMPARISON: None. FINDINGS: There is no acute fracture/dislocation evident in the right hip. The joint space in the r ight hip appears within normal limits. The overlying soft tissue appears unremarkable. IMPRESSION: There is no acute fracture or dislocation in the right hip.
--- NOTE | 2021-02-01 19:01 | XR ---
EXAMINATION TYPE: XR chest 2V DATE OF EXAM: 02/01/2021 COMPARISON: CT chest 11/07/2020 HISTORY: Shortness of breath, fall TECHNIQUE: Frontal and lateral views of the chest are obtained. FINDINGS: Cardiomediastinal silhouette appears stable. Atherosclerotic vascular calcination thoracic aorta are seen. No dense focal consolidation, pleural effusion, or pneumothorax. Visualized osseous structures appear intact. IMPRESSION: No acute cardiopulmonary process.
--- NOTE | 2021-02-01 19:44 | ED ---
Extremity Problem HPI - General Chief complaint: Extremity Problem,Nontraumatic Stated complaint: trouble walking, fall, SOB Time Seen by Provider: 02/01/21 19:21 Source: patient, RN notes reviewed Mode of arrival: wheelchair Limitations: no limitations - History of Present Illness Initial comments: Patient is a 75-year-old female that presents to the emergency room complaining of right hip pain and shortness of breath. Patient was recently seen at the hospital diagnosed with pneumonia. She was also told that she had permanent scarring due to Covid infection. Patient is brought in by food broker/daughter notes that she is having memory problems and has dementia. Patient denied any falling or issues. Patient was well-appearing. Daughter notes the patient has been weeks since having pneumonia. Patient denied any chest pain headache nausea vomiting diarrhea constipation fever fatigue chills. - Related Data Home Medications Medication Instructions Recorded Confirmed Ferrous Sulfate [Iron (65 MG 325 mg PO DAILY 04/27/18 11/05/20 Elemental)] Montelukast Sodium [Singulair] 10 mg PO HS 10/01/19 11/05/20 Albuterol Sulfate [Ventolin HFA] 2 puff INHALATION RT-QID PRN 05/05/20 11/05/20 Memantine [Namenda] 5 mg PO DAILY 05/05/20 11/05/20 HYDROcodone/APAP 5-325MG [[place] 1 tab PO Q12H PRN 06/08/20 11/05/20 5-325] Furosemide [Lasix] 20 mg PO DAILY 10/24/20 11/05/20 Omeprazole 20 mg PO DAILY 10/24/20 11/05/20 Potassium Chloride [Potassium 8 meq PO DAILY 10/24/20 11/05/20 Chloride ER] Amiodarone [Cordarone] See Taper PO BID 11/05/20 11/05/20 hydrALAZINE HCL 25 mg PO TID 11/05/20 11/05/20 Previous Rx's Medication Instructions Recorded Apixaban [Eliquis] 5 mg PO BID #60 tab 05/06/20 Metoprolol Succinate (ER) [Toprol 25 mg PO DAILY 90 Days #90 tablet 10/27/20 XL] Nitroglycerin Sl Tabs [Nitrostat] 0.4 mg SUBLINGUAL Q5M PRN 100 Days 10/27/20 #100 tab Atorvastatin [Lipitor] 20 mg PO HS 90 Days #90 tab 11/09/20 Cefdinir [Omnicef] 300 mg PO BID 10 Days #20 cap 11/09/20 traZODone HCL [Desyrel] 50 mg PO HS 7 Days #7 tab 02/01/21 Allergies Allergy/AdvReac Type Severity Reaction Status Date / Time levofloxacin Allergy Swelling Verified 02/01/21 18:10 lisinopril AdvReac Unknown Verified 02/01/21 18:10 Review of Systems ROS Statement: Those systems with pertinent positive or pertinent negative responses have been documented in the HPI. ROS Other: All systems not noted in ROS Statement are negative. Past Medical History Past Medical History: Asthma, COPD, Dementia, Hyperlipidemia, Hypertension, Memory Impairment, Renal Disease, Seizure Disorder, Vascular Disorder Additional Past Medical History / Comment(s): Short term memory loss, aortic aneurysm, irregular heart beat in the past-pt/jeison cannot recall type, seizure once- 06/2019, UTI/cystitis, nephrolithiasis, recently told she may have "kidney function" problem, falls, L hand currently swollen-pt/jeison do not know cause. History of Any Multi-Drug Resistant Organisms: None Reported Past Surgical History: Back Surgery, Hysterectomy, Orthopedic Surgery, Tonsillectomy, Tubal Ligation Additional Past Surgical History / Comment(s): D&C, EGD, colonoscopy, L hip hemiarthroplasty d/t fracure, R shoulder surgery d/t fracture-has hardware Past Anesthesia/Blood Transfusion Reactions: No Reported Reaction, Motion Sickness Past Psychological History: Anxiety Smoking Status: Never smoker Past Alcohol Use History: None Reported Past Drug Use History: None Reported - Past Family History Mother Family Medical History: Hypertension Father Family Medical History: Coronary Artery Disease (CAD), Myocardial Infarction (ID) Additional Family Medical History / Comment(s): Father of a ID in his 70s. General Exam Limitations: no limitations General appearance: alert, in no apparent distress Head exam: Present: atraumatic, normocephalic, normal inspection Eye exam: Present: normal appearance, PERRL, EOMI. Absent: scleral icterus, conjunctival injection, periorbital swelling ENT exam: Present: normal exam, mucous membranes moist Neck exam: Present: normal inspection. Absent: tenderness, meningismus, lymphadenopathy Respiratory exam: Present: normal lung sounds bilaterally. Absent: respiratory distress, wheezes, rales, rhonchi, stridor Extremities exam: Present: normal inspection, full ROM, normal capillary refill. Absent: tenderness, pedal edema, joint swelling, calf tenderness Right Hip exam: Present: normal inspection, full ROM. Absent: tenderness, swelling, abrasion, laceration, ecchymosis, deformity, crepitus Neurological exam: Present: alert, oriented X3 Psychiatric exam: Present: normal affect, normal mood Skin exam: Present: warm, dry, intact, normal color. Absent: rash Course Vital Signs 02/01/21 18:07 Temperature 98 F Pulse Rate 77 Respiratory 18 Rate Blood Pressure 138/87 O2 Sat by Pulse 99 Oximetry Medical Decision Making - Medical Decision Making 85-year-old female complaining of right hip pain and shortness of breath. X-ray of the right hip, chest x-ray, Cepheid 4 Plex ordered per X-rays negative for any acute process. Cepheid 4 Plex negative. Reticular was informed that everything looked good on examination and that the shortness of breath could be residual from pneumonia and lung scarring. Patient is remote discharge home with follow-up to primary care. Case discussed with Dr. Meredith. - Lab Data Lab Results 02/01/21 Range/Units 18:12 Influenza Type A (PCR) Not Detected (Not Detectd) Influenza Type B (PCR) Not Detected (Not Detectd) RSV (PCR) Not Detected (Not Detectd) SARS-CoV-2 (PCR) Not Detected (Not Detectd) Disposition Clinical Impression: Right hip pain, Shortness of breath Disposition: HOME SELF-CARE Condition: Stable Instructions (If sedation given, give patient instructions): Hip Pain (ED) Additional Instructions: Please return to the Emergency Department if symptoms worsen or any other concerns. Follow-up with primary care in 1-2 days. Take, 3 as prescribed. Take trazodone as prescribed. Is patient prescribed a controlled substance at d/c from ED?: No Referrals: Lalo Nguyen MD [Primary Care Provider] - 1-2 days Time of Disposition: 19:44
== END 2021-02-01 20:21 | disposition home or self-care (01) ==
LOC: EC 16:49
DX: M25.551 Pain in right hip (principal); R06.02 Shortness of breath; J44.9 Chronic obstructive pulmonary disease, unspecified; F03.90 Unspecified dementia, unspecified severity, without behavioral disturbance, psychotic disturbance, mood disturbance, and anxiety; E78.5 Hyperlipidemia, unspecified; I10 Essential (primary) hypertension; F41.9 Anxiety disorder, unspecified; Z20.822 Contact with and (suspected) exposure to COVID-19; Z79.01 Long term (current) use of anticoagulants; Z88.1 Allergy status to other antibiotic agents; Z87.440 Personal history of urinary (tract) infections; Z90.710 Acquired absence of both cervix and uterus; Z98.51 Tubal ligation status
CPT/HCPCS: 71046; 73502; 87636; 99285

== ENCOUNTER 2021-02-10 05:59 | Observation (INO) | payer MEDICARE ==
[2021-02-10] MEDS ORDERED: MORPHINE SULFATE 2 MG/ML SYRINGE IVP STA (06:21)
[2021-02-10 06:40] LABS: Basophils % (A) 1 %; Eosinophils # (A) 0.1 k/uL (0-0.7); Eosinophils % (A) 1 %; HCT 34.5 % (34.0-46.0); HGB 10.7 gm/dL (11.4-16.0); Hypochromasia Marked; Lymphocytes # (A) 1.3 k/uL (1.0-4.8); Lymphocytes % (A) 21 %; MCH 32.5 pg (25.0-35.0); MCV 104.7 fL (80.0-100.0); Macrocytosis Moderate; Mean Platelet Volume 8.6; Monocytes # (A) 0.4 k/uL (0-1.0); Monocytes % (A) 6 %; Neutrophils # (A) 4.3 k/uL (1.3-7.7); Neutrophils % (A) 69 %; Platelet Count 169 k/uL (150-450); RBC 3.29 m/uL (3.80-5.40); RDW 15.2 % (11.5-15.5); WBC 6.3 k/uL (3.8-10.6)
--- NOTE | 2021-02-10 06:46 | ED ---
General Adult HPI - General Chief complaint: Chest Pain Stated complaint: Chest Pain Time Seen by Provider: 02/10/21 06:15 Source: patient, EMS Mode of arrival: EMS Limitations: no limitations - History of Present Illness Initial comments: 75-year-old female with a past medical history of asthma, COPD, dementia, hyperlipidemia, hypertension, renal disease presents to the emergency room for chest pain. Patient has had chest pain since earlier this morning. Daughter reports that she gave patient nitro and called the ambulance. EMS reports that the nitro seemed to relieve her pain. Patient is now on ligament of mild chest pain but also a kink in her neck.Patient has no other complaints at this time including shortness of breath, abdominal pain, nausea or vomiting, headache, or visual changes. - Related Data Home Medications Medication Instructions Recorded Confirmed Ferrous Sulfate [Iron (65 MG 325 mg PO DAILY 04/27/18 11/05/20 Elemental)] Montelukast Sodium [Singulair] 10 mg PO HS 10/01/19 11/05/20 Albuterol Sulfate [Ventolin HFA] 2 puff INHALATION RT-QID PRN 05/05/20 11/05/20 Memantine [Namenda] 5 mg PO DAILY 05/05/20 11/05/20 HYDROcodone/APAP 5-325MG [[place] 1 tab PO Q12H PRN 06/08/20 11/05/20 5-325] Furosemide [Lasix] 20 mg PO DAILY 10/24/20 11/05/20 Omeprazole 20 mg PO DAILY 10/24/20 11/05/20 Potassium Chloride [Potassium 8 meq PO DAILY 10/24/20 11/05/20 Chloride ER] Amiodarone [Cordarone] See Taper PO BID 11/05/20 11/05/20 hydrALAZINE HCL 25 mg PO TID 11/05/20 11/05/20 Previous Rx's Medication Instructions Recorded Apixaban [Eliquis] 5 mg PO BID #60 tab 05/06/20 Metoprolol Succinate (ER) [Toprol 25 mg PO DAILY 90 Days #90 tablet 10/27/20 XL] Nitroglycerin Sl Tabs [Nitrostat] 0.4 mg SUBLINGUAL Q5M PRN 100 Days 10/27/20 #100 tab Atorvastatin [Lipitor] 20 mg PO HS 90 Days #90 tab 11/09/20 Cefdinir [Omnicef] 300 mg PO BID 10 Days #20 cap 11/09/20 traZODone HCL [Desyrel] 50 mg PO HS 7 Days #7 tab 02/01/21 Acetaminophen-Codeine 300-30mg 1 tab PO Q4H PRN #20 tablet 02/02/21 [Tylenol #3] Allergies Allergy/AdvReac Type Severity Reaction Status Date / Time levofloxacin Allergy Swelling Verified 02/10/21 06:07 memantine [From Namenda] Allergy Rash/Hives Verified 02/10/21 06:35 lisinopril AdvReac Unknown Verified 02/10/21 06:07 Review of Systems ROS Statement: Those systems with pertinent positive or pertinent negative responses have been documented in the HPI. ROS Other: All systems not noted in ROS Statement are negative. Past Medical History Past Medical History: Asthma, COPD, Dementia, Hyperlipidemia, Hypertension, Memory Impairment, Renal Disease, Seizure Disorder, Vascular Disorder Additional Past Medical History / Comment(s): Short term memory loss, aortic aneurysm, irregular heart beat in the past-pt/jeison cannot recall type, seizure once- 06/2019, UTI/cystitis, nephrolithiasis, recently told she may have "kidney function" problem, falls, L hand currently swollen-pt/jeison do not know cause. History of Any Multi-Drug Resistant Organisms: None Reported Past Surgical History: Back Surgery, Hysterectomy, Orthopedic Surgery, Tonsillectomy, Tubal Ligation Additional Past Surgical History / Comment(s): D&C, EGD, colonoscopy, L hip he miarthroplasty d/t fracure, R shoulder surgery d/t fracture-has hardware Past Anesthesia/Blood Transfusion Reactions: No Reported Reaction, Motion Sickness Past Psychological History: Anxiety Smoking Status: Never smoker Past Alcohol Use History: None Reported Past Drug Use History: None Reported - Past Family History Mother Family Medical History: Hypertension Father Family Medical History: Coronary Artery Disease (CAD), Myocardial Infarction (RI) Additional Family Medical History / Comment(s): Father of a RI in his 70s. General Exam Limitations: no limitations General appearance: alert, in no apparent distress Head exam: Present: atraumatic Eye exam: Present: normal appearance, PERRL, EOMI. Absent: scleral icterus, conjunctival injection ENT exam: Present: normal exam, mucous membranes moist Neck exam: Present: normal inspection, full ROM. Absent: tenderness Respiratory exam: Present: normal lung sounds bilaterally. Absent: respiratory distress, wheezes Cardiovascular Exam: Present: regular rate, normal rhythm, normal heart sounds GI/Abdominal exam: Present: soft, normal bowel sounds. Absent: distended, tenderness Neurological exam: Present: alert Course Vital Signs 02/10/21 06:00 Temperature 98.1 F Pulse Rate 66 Respiratory 22 Rate Blood Pressure 143/86 O2 Sat by Pulse 97 Oximetry - Reevaluation(s) Reevaluation #1: 02/10/21 06:51 pt has a history of aortic aneurysm. 4.2 cm 3 months ago on November 07 EKG Findings - EKG Comments: EKG Findings:: afib, vent rate 71, pr int 162, qtc 465 Medical Decision Making - Medical Decision Making Vitals are stable. EKG does reveal new biphasic T waves in V3 V4. CBC CMP unremarkable. Troponin 0.016. Chest x-ray shows no acute process. Case discussed with Dr. Nguyen, does agree to admit patient. Cardiology will be consulted. - Lab Data Result diagrams: 02/10/21 06:24 02/10/21 06:24 Lab Results 02/10/21 02/10/21 02/10/21 Range/Units 06:24 06:24 06:24 WBC 6.3 (3.8-10.6) k/uL RBC 3.29 L (3.80-5.40) m/uL Hgb 10.7 L (11.4-16.0) gm/dL Hct 34.5 (34.0-46.0) % MCV 104.7 H (80.0-100.0) fL MCH 32.5 (25.0-35.0) pg MCHC 31.0 (31.0-37.0) g/dL RDW 15.2 (11.5-15.5) % Plt Count 169 (150-450) k/uL MPV 8.6 Neutrophils % 69 % Lymphocytes % 21 % Monocytes % 6 % Eosinophils % 1 % Basophils % 1 % Neutrophils # 4.3 (1.3-7.7) k/uL Lymphocytes # 1.3 (1.0-4.8) k/uL Monocytes # 0.4 (0-1.0) k/uL Eosinophils # 0.1 (0-0.7) k/uL Basophils # 0.0 (0-0.2) k/uL Hypochromasia Marked Macrocytosis Moderate PT 10.3 (9.0-12.0) sec INR 1.0 (<1.2) APTT 23.0 (22.0-30.0) sec Sodium 142 (137-145) mmol/L Potassium 3.7 (3.5-5.1) mmol/L Chloride 108 H (98-107) mmol/L Carbon Dioxide 29 (22-30) mmol/L Anion Gap 5 mmol/L BUN 10 (7-17) mg/dL Creatinine 1.21 H (0.52-1.04) mg/dL Est GFR (CKD-EPI)AfAm 51 (>60 ml/min/1.73 sqM) Est GFR (CKD-EPI)NonAf 44 (>60 ml/min/1.73 sqM) Glucose 88 (74-99) mg/dL Calcium 9.3 (8.4-10.2) mg/dL Magnesium 2.3 (1.6-2.3) mg/dL Total Bilirubin 0.8 (0.2-1.3) mg/dL AST 27 (14-36) U/L ALT 34 (4-34) U/L Alkaline Phosphatase 87 (38-126) U/L Troponin I (0.000-0.034) ng/mL NT-Pro-B Natriuret Pep pg/mL Total Protein 5.8 L (6.3-8.2) g/dL Albumin 3.3 L (3.5-5.0) g/dL Lipase 138 (23-300) U/L 02/10/21 02/10/21 Range/Units 06:24 06:24 WBC (3.8-10.6) k/uL RBC (3.80-5.40) m/uL Hgb (11.4-16.0) gm/dL Hct (34.0-46.0) % MCV (80.0-100.0) fL MCH (25.0-35.0) pg MCHC (31.0-37.0) g/dL RDW (11.5-15.5) % Plt Count (150-450) k/uL MPV Neutrophils % % Lymphocytes % % Monocytes % % Eosinophils % % Basophils % % Neutrophils # (1.3-7.7) k/uL Lymphocytes # (1.0-4.8) k/uL Monocytes # (0-1.0) k/uL Eosinophils # (0-0.7) k/uL Basophils # (0-0.2) k/uL Hypochromasia Macrocytosis PT (9.0-12.0) sec INR (<1.2) APTT (22.0-30.0) sec Sodium (137-145) mmol/L Potassium (3.5-5.1) mmol/L Chloride (98-107) mmol/L Carbon Dioxide (22-30) mmol/L Anion Gap mmol/L BUN (7-17) mg/dL Creatinine (0.52-1.04) mg/dL Est GFR (CKD-EPI)AfAm (>60 ml/min/1.73 sqM) Est GFR (CKD-EPI)NonAf (>60 ml/min/1.73 sqM) Glucose (74-99) mg/dL Calcium (8.4-10.2) mg/dL Magnesium (1.6-2.3) mg/dL Total Bilirubin (0.2-1.3) mg/dL AST (14-36) U/L ALT (4-34) U/L Alkaline Phosphatase (38-126) U/L Troponin I 0.016 (0.000-0.034) ng/mL NT-Pro-B Natriuret Pep 459 pg/mL Total Protein (6.3-8.2) g/dL Albumin (3.5-5.0) g/dL Lipase (23-300) U/L Disposition Clinical Impression: Acute electrocardiogram changes, Chest pain Disposition: ADMITTED IP TO THIS HOSP Is patient prescribed a controlled substance at d/c from ED?: No Referrals: Lalo Nguyen MD [Primary Care Provider] - 1-2 days Time of Disposition: 08:06
[2021-02-10 07:04] LABS: Prothrombin Time 10.3 sec (9.0-12.0)
[2021-02-10 07:13] LABS: Albumin 3.3 g/dL (3.5-5.0); Calcium 9.3 mg/dL (8.4-10.2); Magnesium 2.3 mg/dL (1.6-2.3); Potassium 3.7 mmol/L (3.5-5.1); Total Bilirubin 0.8 mg/dL (0.2-1.3); Total Protein 5.8 g/dL (6.3-8.2)
--- NOTE | 2021-02-10 07:22 | XR ---
EXAMINATION TYPE: XR chest 2V DATE OF EXAM: 02/10/2021 COMPARISON: Chest x-ray February 01, 2021. Chest CT November 07, 2020. HISTORY: History of asthma and COPD presents with chest pain today. TECHNIQUE: Frontal and lateral views of the chest are obtained. FINDINGS: There are chronic emphysematous and parenchymal changes bilaterally redemonstrated. Persis tent cardiomegaly with atherosclerotic and ectatic thoracic aorta. Tapering of the distal clavicles b ilaterally is redemonstrated. Cholecystectomy clips noted on lateral view. IMPRESSION: Cardiomegaly and chronic changes without acute pulmonary process.
[2021-02-10] MEDS ORDERED: ASPIRIN 81 MG PO STA (08:10)
[2021-02-10] MEDS: ISOSORBIDE MONONITRATE ER 30 MG TAB.ER.24H PO SCH (12:49)
[2021-02-10] MEDS: METOPROLOL SUCCINATE (ER) 50 MG TAB.ER.24H PO SCH (12:49)
[2021-02-10] MEDS: APIXABAN 5 MG TAB PO SCH ×2 (12:49→21:35)
--- NOTE | 2021-02-10 12:56 | P.CRDCN ---
History of Present Illness History of present illness: This is a pleasant 75-year-old with past medical history significant for chronic kidney disease, hypertension, dementia, paroxysmal atrial fibrillation on Eliquis,COVID-19 infection spring 2020, Bronchitis. She follows with Dr. Smart. We are being consulted for chest pain. Patient presents to the emergency department with complaints of chest pain and states her "Asthma was acting up". She states she has been having chest pain for 1 week, intermittent. Comes and goes. Non-radiating, non-exertional. She is unable to explain what helps her pain. She states her pain is located across her bilateral chest, she states "where my lungs are". She states coughing and taking a deep breath aggravates her pain. She currently is chest pain free. Patient was admitted to the hospital in November 2020 with complaints of chest pain and shortness of breath. She was evaluated by nuclear Stress test and echocardiogram. Nuclear stress test showed mild ischemia. She was evaluated Dr. Cotton, nuclear stress test was reviewed and medical therapy was advised. DIAGNOSTICS EKG sinus rhythm HR 71, PVCs, biphasic t wave noted in anterior leads, no ST-T wave abnormalities to suggest acute ischemia Chest Xray-cardiomegaly, chronic emphysematous and parenchymal changes bilaterally. Most recent echo October 2020 revealed EF 5560% Laboratory data reviewed- Troponin negative x 2, WBC 6.3, Hgb 10.7, Plt 169, Sodium 142, K 3.7, BUN 10, serum creatinine 1.2, magnesium 2.3, proBNP 459, covid-19 negative, REVIEW OF SYSTEMS At the time of my exam: CONSTITUTIONAL: Denies fever or chills. CARDIOVASCULAR: Denies chest pain and shortness of breath, no orthopnea, PND or palpitations. RESPIRATORY: + cough. GASTROINTESTINAL: Denies abdominal pain, diarrhea, constipation, nausea or vomiting. MUSCULOSKELETAL: Denies myalgias. NEUROLOGIC: Denies numbness, tingling or weakness. ENDOCRINE: Denies fatigue, weight change, polydipsia or polyurina. GENITOURINARY: Denies burning, hematuria or urgency with micturation. HEMATOLOGIC: Denies history of anemia or bleeding. PHYSICAL EXAMINATION Vital signs reviewed. CONSTITUTIONAL: No apparent distress. HEENT: Head is normocephalic. Pupils are equal, round. Sclerae anicteric. Mucous membranes of the mouth are moist. No JVD. No carotid bruit. CHEST EXAMINATION: Lungs are wheezing bilaterally to auscultation. No chest wall tenderness is noted on palpation or with deep breathing. HEART EXAMINATION: Regular rate and rhythm. S1, S2 heard. No murmurs, gallops or rub. ABDOMEN: Soft, nontender. Positive bowel sounds. EXTREMITIES: 2+ peripheral pulses, no lower extremity edema and no calf tenderness. NEUROLOGIC EXAMINATION: Patient is awake, alert and oriente, poor recall ASSESSMENT Chest pain, atypical Acute kidney injury Paroxysmal atrial fibrillation on Eliquis Hypertension Chronic kidney disease Dementia Previous COVID-19 infection Bronchitis diagnosed at [facility] History asthma/COPD PLAN We will trend troponin, repeat EKG in the morning Continue home cardiac medications No need to repeat echocardiogram with recent in October 2020 Continue cardiac telemetry We will monitor patient for 24 hours Further recommendations based on clinical course Past Medical History Past Medical History: Asthma, COPD, Dementia, Hyperlipidemia, Hypertension, Memory Impairment, Renal Disease, Seizure Disorder, Vascular Disorder Additional Past Medical History / Comment(s): Short term memory loss, aortic aneurysm, irregular heart beat in the past-pt/jeison cannot recall type, seizure once- 06/2019, UTI/cystitis, nephrolithiasis, recently told she may have "kidney function" problem, falls, L hand currently swollen-pt/jeison do not know cause. History of Any Multi-Drug Resistant Organisms: None Reported Past Surgical History: Back Surgery, Hysterectomy, Orthopedic Surgery, Tonsillectomy, Tubal Ligation Additional Past Surgical History / Comment(s): D&C, EGD, colonoscopy, L hip hem iarthroplasty d/t fracure, R shoulder surgery d/t fracture-has hardware Past Anesthesia/Blood Transfusion Reactions: No Reported Reaction, Motion Sickness Past Psychological History: Anxiety Smoking Status: Never smoker Past Alcohol Use History: None Reported Past Drug Use History: None Reported - Past Family History Mother Family Medical History: Hypertension Father Family Medical History: Coronary Artery Disease (CAD), Myocardial Infarction (MT) Additional Family Medical History / Comment(s): Father of a MT in his 70s. Medications and Allergies Home Medications Medication Instructions Recorded Confirmed Type Ferrous Sulfate [Iron (65 MG 325 mg PO DAILY 04/27/18 02/10/21 History Elemental)] Montelukast Sodium [Singulair] 10 mg PO HS 10/01/19 02/10/21 History Albuterol Sulfate [Ventolin HFA] 2 puff INHALATION RT-QID PRN 05/05/20 02/10/21 History Apixaban [Eliquis] 5 mg PO BID #60 tab 05/06/20 02/10/21 Rx HYDROcodone/APAP 5-325MG [[place] 1 tab PO Q12H PRN 06/08/20 02/10/21 History 5-325] Omeprazole 20 mg PO DAILY 10/24/20 02/10/21 History Potassium Chloride [Potassium 8 meq PO DAILY 10/24/20 02/10/21 History Chloride ER] Nitroglycerin Sl Tabs [Nitrostat] 0.4 mg SUBLINGUAL Q5M PRN 100 Days 10/27/20 02/10/21 Rx #100 tab Amiodarone [Cordarone] 200 mg PO DAILY 11/05/20 02/10/21 History hydrALAZINE HCL 25 mg PO TID 11/05/20 02/10/21 History Atorvastatin [Lipitor] 20 mg PO HS 90 Days #90 tab 11/09/20 02/10/21 Rx traZODone HCL [Desyrel] 50 mg PO HS 7 Days #7 tab 02/01/21 02/10/21 Rx Budesonide/Glycopyr/Formoterol 2 puff INHALATION RT-BID 02/10/21 02/10/21 History [Breztri Aerosphere Inhaler] Furosemide [Lasix] 40 mg PO DAILY 02/10/21 02/10/21 History Isosorbide Mononitrate ER [Imdur] 30 mg PO DAILY 02/10/21 02/10/21 History Metoprolol Succinate (ER) [Toprol 50 mg PO DAILY 02/10/21 02/10/21 History Xl] busPIRone HCL [Buspar] 7.5 mg PO BID 02/10/21 02/10/21 History Allergies Allergy/AdvReac Type Severity Reaction Status Date / Time levofloxacin Allergy Swelling Verified 02/10/21 06:07 memantine [From Namenda] Allergy Rash/Hives Verified 02/10/21 06:35 lisinopril AdvReac Unknown Verified 02/10/21 06:07 Physical Exam Vitals: Vital Signs Temp Pulse Resp BP Pulse Ox 02/10/21 09:33 67 18 99 02/10/21 08:07 59 L 16 116/81 99 02/10/21 06:00 98.1 F 66 22 143/86 97 Intake and Output 02/09/21 02/10/21 02/10/21 22:59 06:59 14:59 Other: Weight 74.843 kg Results 02/10/21 06:24 02/10/21 06:24 Cardiac Enzymes 02/10/21 02/10/21 Range/Units 06:24 06:24 AST 27 (14-36) U/L Troponin I 0.016 (0.000-0.034) ng/mL Coagulation 02/10/21 Range/Units 06:24 PT 10.3 (9.0-12.0) sec APTT 23.0 (22.0-30.0) sec CBC 02/10/21 Range/Units 06:24 WBC 6.3 (3.8-10.6) k/uL RBC 3.29 L (3.80-5.40) m/uL Hgb 10.7 L (11.4-16.0) gm/dL Hct 34.5 (34.0-46.0) % Plt Count 169 (150-450) k/uL Comprehensive Metabolic Panel 02/10/21 Range/Units 06:24 Sodium 142 (137-145) mmol/L Potassium 3.7 (3.5-5.1) mmol/L Chloride 108 H (98-107) mmol/L Carbon Dioxide 29 (22-30) mmol/L BUN 10 (7-17) mg/dL Creatinine 1.21 H (0.52-1.04) mg/dL Glucose 88 (74-99) mg/dL Calcium 9.3 (8.4-10.2) mg/dL AST 27 (14-36) U/L ALT 34 (4-34) U/L Alkaline Phosphatase 87 (38-126) U/L Total Protein 5.8 L (6.3-8.2) g/dL Albumin 3.3 L (3.5-5.0) g/dL Current Medications Generic Name Dose Route Start Last Admin Trade Name Freq PRN Reason Stop Dose Admin Aspirin 325 mg 02/11/21 09:00 Aspirin 325 Mg Tab PO DAILY MACI Intake and Output 02/09/21 02/10/2102/10/22 22:59 06:59 14:59 Other: Weight 74.843 kg 02/10/21 06:24 02/10/21 06:24
[2021-02-10] MEDS: hydrALAZINE HCL 25 MG TAB PO SCH ×2 (17:17→21:35)
[2021-02-10] MEDS ORDERED: NITROGLYCERIN SL TABS 0.4 MG TAB SUBLINGUAL PRN (17:26)
[2021-02-10] MEDS ORDERED: HYDROcodone/APAP 5-325MG 1 EACH TAB PO PRN (17:26)
[2021-02-10] MEDS: busPIRone HCl 5 MG TAB PO SCH (21:33)
[2021-02-10] MEDS: ATORVASTATIN 20 MG TAB PO SCH (21:34)
[2021-02-10] MEDS: MONTELUKAST 10 MG TAB PO SCH (21:35)
[2021-02-10] MEDS: traZODone HCL 50 MG TAB PO SCH (21:35)
--- NOTE | 2021-02-11 00:19 | HP ---
HISTORY AND PHYSICAL 75-year-old white female. Past medical history of chronic kidney disease, hypertension, paroxysmal atrial fib, Eliquis status post Covid 19 infection, bronchitis, COPD, pulmonary fibrosis, came in the hospital because her asthma was acting up. She is admitted with atypical chest pain. Negative troponins x3. Cardiology evaluated her today. She had a nuclear stress test, echocardiogram showed mild ischemia. Medical treatment was recommended in the past few years. EKG shows sinus rhythm. Chest x-ray shows emphysema. Echo ejection fraction 55-60. 14-point review of systems negative except for cough, congestion, some shortness of breath. She is sitting on her bed. Cardiovascular S1-S2. Lungs mild wheeze x4. Hematology: Negative Homans. Psych: Fair mood and affect. Neurologic: Alert and oriented x3. Integument: No rash. ASSESSMENT: 1. Atypical chest pain. 2. Acute kidney injury. 3. Prerenal renal insufficiency. 4. Paroxysmal atrial fibrillation. 5. Hypertension. 6. Chronic kidney disease. 7. Dementia. 8. Previous Covid 19 infection. 9. Recent bronchitis. 10.History of asthma/chronic obstructive pulmonary disease. Cardiology will clear for discharge. Continue with IV steroids over the next 24 to 48 hours and possible discharge. Prognosis guarded. MMODL / IJN: [id number] /
[2021-02-11] MEDS: methylPREDNISolone SOD SUCCI 40 MG/ML 1 ML VIAL IV SCH ×4 (00:56→23:43)
[2021-02-11] MEDS ORDERED: ASPIRIN 325 MG TAB PO SCH (09:00)
[2021-02-11] MEDS ORDERED: FUROSEMIDE 40 MG TAB PO SCH (09:00)
[2021-02-11] MEDS: METOPROLOL SUCCINATE (ER) 50 MG TAB.ER.24H PO SCH (09:33)
[2021-02-11] MEDS: POTASSIUM CHLORIDE ER 10 MEQ TAB.ER.PRT PO SCH (09:33)
[2021-02-11] MEDS: ISOSORBIDE MONONITRATE ER 30 MG TAB.ER.24H PO SCH (09:33)
[2021-02-11] MEDS: PANTOPRAZOLE 40 MG TABLET PO SCH (09:33)
[2021-02-11] MEDS: busPIRone HCl 5 MG TAB PO SCH ×2 (09:33→20:32)
[2021-02-11] MEDS: AMIODARONE 200 MG TAB PO SCH (09:34)
[2021-02-11] MEDS: FERROUS SULFATE 325 MG TAB PO SCH (09:34)
[2021-02-11] MEDS: APIXABAN 5 MG TAB PO SCH ×2 (09:34→20:32)
[2021-02-11] MEDS: hydrALAZINE HCL 25 MG TAB PO SCH ×3 (09:34→20:31)
[2021-02-11 10:47] LABS: Chol/HDL Ratio 2.37 Ratio; LDL Cholesterol,Calculated 91.6 mg/dL (0.0-131.0)
--- NOTE | 2021-02-11 11:42 | P.PN ---
Subjective This is a pleasant 75-year-old with past medical history significant for dementia, chronic kidney disease, hypertension, dementia, paroxysmal atrial fibrillation on Eliquis,COVID-19 infection spring 2020, Bronchitis. She follows with Dr. Smart. We are being consulted for chest pain. Patient presents to the emergency department with complaints of chest pain for 1 week, that has resolved. Over the past week she states her chest pain was intermittent, it would come and go, last less than 5 minutes. Non-radiating, non-exertional. Her pain was located across her bilateral chest. She stated that coughing and taking a deep breath aggravated her pain. Patient was admitted to the hospital in November 2020 with complaints of chest pain and shortness of breath. She was evaluated by nuclear Stress test and echocardiogram. Nuclear stress test showed mild ischemia. She was evaluated Dr. Cotton, nuclear stress test was reviewed and medical therapy was advised. 02/11/2021 Patient seen and examined at bedside, she is awake and alert. No acute distress. She denies any chest pain. No shortness of breath. She does endorse some wheezing. Her cardiac enzymes were negative x 3. She is maintaining sinus mechanism, heart rate 6070s, occasional PAC. Blood pressure 119/77, heart rate 71, afebrile, oxygen saturations greater than 92% on room air. She is currently maintained on Eliquis 5 mg twice a day, amiodarone 200 mg daily, atorvastatin 20 mg nightly, hydralazine 25 mg 3 times a day, Imdur 30 mg daily, metoprolol succinate 50 mg daily. Spoke with patient's daughter, she states her mother has been having on and off sharp chest discomfort at home in the center of her chest for about 1 week, but seemed more frequent for the past 3 days. She does state her mother's chest pain was worse when she would take a deep breath. No other associated symptoms. She also endorses her mother complaining of her asthma bothering her. She also has noticed her using her albuterol inhaler more frequently at home. She states day of admission, her mother complained of similar chest discomfort, EMS was called. PHYSICAL EXAMINATION Vital signs reviewed. CONSTITUTIONAL: No apparent distress. HEENT: Neck Supple. No JVD. CHEST EXAMINATION: Lungs are wheezing bilaterally to auscultation. No chest wall tenderness is noted on palpation or with deep breathing. HEART EXAMINATION: Regular rate and rhythm. S1, S2 heard. No murmurs, gallops or rub. ABDOMEN: Soft, nontender. Positive bowel sounds. EXTREMITIES: no lower extremity edema and no calf tenderness. NEUROLOGIC EXAMINATION: Patient is awake, alert and oriented, poor recall ASSESSMENT Chest pain, atypical, acute coronary syndrome has been ruled out Acute kidney injury Paroxysmal atrial fibrillation on Eliquis Hypertension Chronic kidney disease Dementia Previous COVID-19 infection Bronchitis diagnosed at [facility] History asthma/COPD PLAN Spoke with patient's daughter this morning discussed patient's inpatient results and alternative therapies and medical management, she is in agreement with medical therapy for chest pain. We will increase patient's Imdur to 60mg daily. Daughter is requesting patient to follow up with [facility] [employer] as an outpatient for Asthma management, will defer to Primary. We will continue medical therapy at this time. Patient is stable to be discharged from a cardiology perspective. Follow up with Dr. Smart as outpatient on discharge. Objective - Vital Signs Vital signs: Vital Signs Temp 98.3 F 02/11/21 07:00 Pulse 58 L 02/11/21 07:00 Resp 16 02/11/21 07:00 BP 119/77 02/11/21 07:00 Pulse Ox 95 02/11/21 07:00 Intake & Output 02/10/21 02/11/21 02/11/21 18:59 06:59 18:59 Weight 74.843 kg Other: # Voids 2 - Labs CBC & Chem 7: 02/10/21 06:24 02/10/21 06:24
[2021-02-11] MEDS: ATORVASTATIN 20 MG TAB PO SCH (20:31)
[2021-02-11] MEDS: MONTELUKAST 10 MG TAB PO SCH (20:31)
[2021-02-11] MEDS: traZODone HCL 50 MG TAB PO SCH (20:31)
[2021-02-12 07:24] VITALS: RESP 18
[2021-02-12] MEDS: busPIRone HCl 5 MG TAB PO SCH (08:21)
[2021-02-12] MEDS: hydrALAZINE HCL 25 MG TAB PO SCH ×2 (08:21→16:37)
[2021-02-12] MEDS: methylPREDNISolone SOD SUCCI 40 MG/ML 1 ML VIAL IV SCH (08:21)
[2021-02-12] MEDS: AMIODARONE 200 MG TAB PO SCH (08:23)
[2021-02-12] MEDS: FERROUS SULFATE 325 MG TAB PO SCH (08:23)
[2021-02-12] MEDS: METOPROLOL SUCCINATE (ER) 50 MG TAB.ER.24H PO SCH (08:23)
[2021-02-12] MEDS: PANTOPRAZOLE 40 MG TABLET PO SCH (08:23)
[2021-02-12] MEDS: POTASSIUM CHLORIDE ER 10 MEQ TAB.ER.PRT PO SCH (08:23)
[2021-02-12] MEDS: APIXABAN 5 MG TAB PO SCH (08:23)
[2021-02-12] MEDS ORDERED: ISOSORBIDE MONONITRATE ER 60 MG TAB.ER.24H PO SCH (09:00)
--- NOTE | 2021-02-12 11:03 | P.PN ---
Subjective This is a pleasant 75-year-old with past medical history significant for dementia, chronic kidney disease, hypertension, dementia, paroxysmal atrial fibrillation on Eliquis,COVID-19 infection spring 2020, Bronchitis. She follows with Dr. Smart. We are being consulted for chest pain. Patient presents to the emergency department with complaints of chest pain for 1 week, that has resolved. Over the past week she states her chest pain was intermittent, it would come and go, last less than 5 minutes. Non-radiating, non-exertional. Her pain was located across her bilateral chest. She stated that coughing and taking a deep breath aggravated her pain. Patient was admitted to the hospital in November 2020 with complaints of chest pain and shortness of breath. She was evaluated by nuclear Stress test and echocardiogram. Nuclear stress test showed mild ischemia. She was evaluated Dr. Cotton, nuclear stress test was reviewed and medical therapy was advised. 02/12/2021 Patient seen and examined at bedside, she is awake and alert. No acute distress. She denies any chest pain. No shortness of breath. She states her wheezing has improved. She was started on IV steroids overnight. Her cardiac enzymes were negative x 3. She is maintaining sinus mechanism, heart rate 6070s. Vital signs are stable. She is currently maintained on Eliquis 5 mg twice a day, amiodarone 200 mg daily, atorvastatin 20 mg nightly, hydralazine 25 mg 3 times a day, Imdur 30 mg daily, metoprolol succinate 50 mg daily. IV solumedrol 40mg Q8hr. PHYSICAL EXAMINATION Vital signs reviewed. CONSTITUTIONAL: No apparent distress. HEENT: Neck Supple. No JVD. CHEST EXAMINATION: Lungs are wheezing bilaterally to auscultation. No chest wall tenderness is noted on palpation or with deep breathing. HEART EXAMINATION: Regular rate and rhythm. S1, S2 heard. No murmurs, gallops or rub. ABDOMEN: Soft, nontender. Positive bowel sounds. EXTREMITIES: no lower extremity edema and no calf tenderness. NEUROLOGIC EXAMINATION: Patient is awake, alert and oriented, poor recall, not a good historian for medical information ASSESSMENT Chest pain, atypical, acute coronary syndrome has been ruled out Acute kidney injury Paroxysmal atrial fibrillation on Eliquis Hypertension Chronic kidney disease Dementia Previous COVID-19 infection Bronchitis diagnosed at [facility] History asthma/COPD PLAN We will continue medical therapy, with increase in Imdur to 60mg daily. Daughter is requesting patient to follow up with [facility] as an outpatient for Asthma management, will defer to Primary. We will continue medical therapy at this time. Patient is stable to be discharged from a cardiology perspective. Follow up with Dr. Smart as outpatient on discharge. Objective - Vital Signs Vital signs: Vital Signs Temp 98.4 F 02/12/21 07:00 Pulse 77 02/12/21 07:00 Resp 18 02/12/21 07:00 BP 130/82 02/12/21 07:00 Pulse Ox 100 02/12/21 07:00 Intake & Output 02/11/21 02/12/21 02/12/21 18:59 06:59 18:59 Other: # Voids 1 3 - Labs CBC & Chem 7: 02/10/21 06:24 02/10/21 06:24 Labs: Abnormal Lab Results - Last 24 Hours (Table) 02/11/21 Range/Units 07:21 HDL Cholesterol 83.60 H (40.00-60.00) mg/dL
[2021-02-12] MEDS ORDERED: predniSONE 20 MG TAB PO SCH (13:00)
[2021-02-12 14:16] VITALS: BP 148/84; PULSE 85; TEMP 97.7
--- NOTE | 2021-02-12 18:15 | DS ---
DISCHARGE SUMMARY DATE OF DISCHARGE: 02/12/2021 DISCHARGE DIAGNOSES: 1. Atypical chest pain. 2. Acute EKG changes. 3. COPD exacerbation. 4. Altered mental status. 5. Pulmonary fibrosis. 6. Recent Covid pneumonia. 7. Dyslipidemia. 8. Diastolic heart failure. She was admitted with atypical chest pain. Cardiology saw her, cleared her from cardiac standpoint. She was given IV Solu-Medrol for 24 to 48 hours for pulmonary fibrosis and wheezing. IV steroids were switched to oral prednisone on discharge. Her Imdur was increased from 30-60 mg daily. She is stable to go home. She is saturating 100% on room air. Follow up as an outpatient in my office. Diet as tolerated. HOME MEDICINES: Imdur 60 mg daily, ( ) 20 mg daily, ferrous sulfate 325 daily, Singulair 10 mg daily, [place] 5/325 q.12 hours p.r.n., omeprazole 20 mg daily, Cordarone 200 mg daily, Desyrel 50 mg daily, BuSpar 7.5 b.i.d., metoprolol ER 50 mg daily, albuterol or DuoNeb updraft q.i.d., Eliquis 5 mg b.i.d. for atrial fibrillation, potassium chloride 8 mEq daily, nitroglycerin sublingual p.r.n., hydralazine 25 t.i.d., Lipitor 20 daily. Follow up as an outpatient. MMRUSTY / MIRA: [id number] /
== END 2021-02-12 18:17 | disposition home or self-care (01) ==
LOC: EC 05:59 → 6NMEDSUR 08:06
PROVIDERS: ADMIT Family Medicine; ATTEND Family Medicine
DX: R07.89 Other chest pain (principal); N17.9 Acute kidney failure, unspecified; J43.9 Emphysema, unspecified; J84.10 Pulmonary fibrosis, unspecified; I48.0 Paroxysmal atrial fibrillation; I13.0 Hypertensive heart and chronic kidney disease with heart failure and stage 1 through stage 4 chronic kidney disease, or unspecified chronic kidney disease; N18.9 Chronic kidney disease, unspecified; I50.30 Unspecified diastolic (congestive) heart failure; F41.9 Anxiety disorder, unspecified; I71.9 Aortic aneurysm of unspecified site, without rupture; R94.31 Abnormal electrocardiogram [ECG] [EKG]; J40 Bronchitis, not specified as acute or chronic; F03.90 Unspecified dementia, unspecified severity, without behavioral disturbance, psychotic disturbance, mood disturbance, and anxiety; G40.909 Epilepsy, unspecified, not intractable, without status epilepticus; E78.5 Hyperlipidemia, unspecified; Z20.822 Contact with and (suspected) exposure to COVID-19; Z79.01 Long term (current) use of anticoagulants; Z79.51 Long term (current) use of inhaled steroids; Z79.899 Other long term (current) drug therapy; Z88.1 Allergy status to other antibiotic agents; Z88.8 Allergy status to other drugs, medicaments and biological substances; Z86.16 Personal history of COVID-19; Z87.01 Personal history of pneumonia (recurrent); Z87.442 Personal history of urinary calculi; Z87.440 Personal history of urinary (tract) infections; Z90.710 Acquired absence of both cervix and uterus; Z98.51 Tubal ligation status; Z96.642 Presence of left artificial hip joint; Z98.890 Other specified postprocedural states; Z82.49 Family history of ischemic heart disease and other diseases of the circulatory system
CPT/HCPCS: 96376 ×2; 96375; 96374; 99285; 36415; 93005; 83880; 80061; 80053; 83690; 83735; 84484; 85025; 85610; 85730; 87635; 71046; G0378 ×3; J2920 ×2; J2270; J7512

== ENCOUNTER 2021-03-31 11:13 | Inpatient (IN) | payer MEDICARE ==
[2021-03-31 12:30] LABS: Basophils # (A) 0.1 k/uL (0-0.2); Basophils % (A) 1 %; Eosinophils # (A) 0.1 k/uL (0-0.7); Eosinophils % (A) 1 %; HCT 35.6 % (34.0-46.0); HGB 11.4 gm/dL (11.4-16.0); Hypochromasia Slight; Lymphocytes # (A) 1.9 k/uL (1.0-4.8); Lymphocytes % (A) 14 %; MCH 31.7 pg (25.0-35.0); MCHC 31.9 g/dL (31.0-37.0); Mean Platelet Volume 7.8; Monocytes # (A) 0.7 k/uL (0-1.0); Monocytes % (A) 5 %; Neutrophils # (A) 11.2 k/uL (1.3-7.7); Neutrophils % (A) 80 %; Platelet Count 274 k/uL (150-450); RBC 3.59 m/uL (3.80-5.40); RDW 14.2 % (11.5-15.5)
--- NOTE | 2021-03-31 12:33 | ED ---
SOB HPI - General Chief Complaint: Shortness of Breath Stated Complaint: CORNEL Time Seen by Provider: 03/31/21 11:29 Source: patient, family Mode of arrival: wheelchair Limitations: physical limitation - History of Present Illness Initial Comments: Patient is a 75-year-old female with a past medical history of asthma, COPD, atrial fibrillation on Eliquis, and dementia who presents to the emergency department with a chief complaint of shortness of breath. Patient states that she has been experiencing shortness of breath for 3 days. She also reports up per back pain, worsened with inspiration, and dry cough. Patient has used 2 albuterol nebulizer treatment at home with no relief shortness of breath. She also states that she is experienced dizziness with standing as if the room is spinning. Patient denies fever, chills, generalized weakness, headache, chest pain, palpitations, abdominal pain, nausea, vomiting, diarrhea, constipation, dysuria, and bilateral leg pain. Of note, patient was discharged from the [facility] on 02/12/21 after admission for atypical chest pain. She was cleared from a cardiac standpoint and given Solu-Medrol for pulmonary fibrosis and wheezing. Patient was discharged with oral steroids and her Imdur dose was increased. MD Complaint: shortness of breath - Related Data Home Medications Medication Instructions Recorded Confirmed Montelukast Sodium [Singulair] 10 mg PO HS 10/01/19 03/31/21 Albuterol Sulfate [Ventolin HFA] 2 puff INHALATION RT-QID PRN 05/05/20 03/31/21 HYDROcodone/APAP 5-325MG [[place] 1 tab PO Q12H PRN 06/08/20 03/31/21 5-325] Omeprazole 20 mg PO DAILY 10/24/20 03/31/21 Potassium Chloride [Potassium 8 meq PO DAILY 10/24/20 03/31/21 Chloride ER] Amiodarone [Cordarone] 100 mg PO BID 11/05/20 03/31/21 Budesonide/Glycopyr/Formoterol 2 puff INHALATION RT-BID 02/10/21 03/31/21 [Breztri Aerosphere Inhaler] Furosemide [Lasix] 40 mg PO DAILY 02/10/21 03/31/21 Metoprolol Succinate (ER) [Toprol 25 mg PO BID 02/10/21 03/31/21 XL] busPIRone HCL [Buspar] 7.5 mg PO BID PRN 02/10/21 03/31/21 Megestrol [Megace] 40 mg PO BID 03/31/21 03/31/21 Midodrine HCl [ProAmantine] 2.5 mg PO HS 03/31/21 03/31/21 Midodrine HCl [ProAmantine] 5 mg PO DAILY 03/31/21 03/31/21 Promethazine HCl/Codeine 5 ml PO HS PRN 03/31/21 03/31/21 [Promethazine-Codeine Syrup] traZODone HCL [Desyrel] 50 mg PO HS PRN 03/31/21 03/31/21 Previous Rx's Medication Instructions Recorded Apixaban [Eliquis] 5 mg PO BID #60 tab 05/06/20 Nitroglycerin Sl Tabs [Nitrostat] 0.4 mg SUBLINGUAL Q5M PRN 100 Days 10/27/20 #100 tab Atorvastatin [Lipitor] 20 mg PO HS 90 Days #90 tab 11/09/20 predniSONE [Deltasone] 20 mg PO DAILY 30 Days #30 tab 02/12/21 Allergies Allergy/AdvReac Type Severity Reaction Status Date / Time levofloxacin Allergy Swelling Verified 03/31/21 13:11 memantine [From Namenda] Allergy Rash/Hives Verified 03/31/21 13:11 lisinopril AdvReac Unknown Verified 03/31/21 13:11 Review of Systems ROS Statement: Those systems with pertinent positive or pertinent negative responses have been documented in the HPI. ROS Other: All systems not noted in ROS Statement are negative. Past Medical History Past Medical History: Atrial Fibrillation, Asthma, COPD, Dementia, Hyperlipidemia, Hypertension, Memory Impairment, Renal Disease, Seizure Disorder, Vascular Disorder Additional Past Medical History / Comment(s): Aortic aneurysm, daughter states past fluid around lung that was drained off, CKD staf III, nephrolithiasis, UTI/cystitis, one seizure in 2019, anemia, chronic back pain, bilateral ankle edema, FALLS History of Any Multi-Drug Resistant Organisms: None Reported Past Surgical History: Back Surgery, Hysterectomy, Orthopedic Surgery, Tonsillectomy, Tubal Ligation Additional Past Surgical History / Comment(s): D&C, EGD, colonoscopy, L hip hemiarthroplasty d/t fracure, R shoulder surgery d/t fracture-has hardware Past Anesthesia/Blood Transfusion Reactions: Motion Sickness Additional Past Anesthesia/Blood Transfusion Reaction / Comment(s): Pt has clausterphobia. Past Psychological History: Anxiety Smoking Status: Never smoker Past Alcohol Use History: None Reported Past Drug Use History: None Reported - Past Family History Mother Family Medical History: Hypertension Father Family Medical History: Coronary Artery Disease (CAD), Myocardial Infarction ([place]) Additional Family Medical History / Comment(s): Father of a [place] in his 70s. General Exam Limitations: physical limitation General appearance: alert, in no apparent distress Head exam: Present: atraumatic, normocephalic, normal inspection Neck exam: Present: normal inspection, full ROM Respiratory exam: Present: normal lung sounds bilaterally. Absent: respiratory distress, wheezes, rales, rhonchi, stridor Cardiovascular Exam: Present: regular rate, normal heart sounds. Absent: normal rhythm (Patient has known atrial fibrillation), systolic murmur, diastolic murmur, rubs, gallop, clicks GI/Abdominal exam: Present: soft, normal bowel sounds. Absent: distended, tenderness, guarding, rebound, rigid Extremities exam: Present: normal inspection Back exam: Present: normal inspection, tenderness (thoracic region with palpation ), paraspinal tenderness, vertebral tenderness Neurological exam: Present: alert, oriented X3, CN II-XII intact Psychiatric exam: Present: normal affect, normal mood Course Vital Signs 03/31/21 03/31/21 03/31/21 11:14 12:25 14:49 Temperature 97.6 F Pulse Rate 69 75 Respiratory 18 20 16 Rate Blood Pressure 143/84 O2 Sat by Pulse 100 Oximetry 03/31/21 14:57 Temperature Pulse Rate 71 Respiratory 16 Rate Blood Pressure O2 Sat by Pulse Oximetry Medical Decision Making - Medical Decision Making This is a 75-year-old female who presents with shortness of breath. Thorough history and examination were performed. SpO2 is 100% RA. EKG reveals sinus rhythm with occasional supraventricular premature complexes. Patient is COVID-19 and influenza A/B negative. CBC reveals mild leukocytosis with a left shift. Potassium is low at 2.8. Troponin is 0.025. D-dimer is negative at 0.3. Chest x-ray reveals no acute cardiopulmonary process. There is subacute osteoporotic compression deformity of the mid thoracic spine as well as coronary artery disease and aortic aneurysm. Previous chest CT on 11/07/20 shows aortic aneurysm at 4.2 cm. Patient given oral potassium and Duoneb treatment. On reevaluation patient is resting in bed. Duoneb improved symptoms minimally. Case discussed with patient and daughter. At this time daughter who is grounds caretaker does not feel co mfortable with patient going home. She states that patient is consistently complaining of shortness of breath and dizziness with standing. Case discussed with Dr. Torre. Patient will be admitted to him for further evaluation and management. Dr. Parham is my attending. - Lab Data Result diagrams: 03/31/21 12:18 03/31/21 12:18 Lab Results 03/31/21 03/31/21 03/31/21 Range/Units 11:24 12:18 12:18 WBC 14.0 H (3.8-10.6) k/uL RBC 3.59 L (3.80-5.40) m/uL Hgb 11.4 (11.4-16.0) gm/dL Hct 35.6 (34.0-46.0) % MCV 99.2 D (80.0-100.0) fL MCH 31.7 (25.0-35.0) pg MCHC 31.9 (31.0-37.0) g/dL RDW 14.2 (11.5-15.5) % Plt Count 274 (150-450) k/uL MPV 7.8 Neutrophils % 80 % Lymphocytes % 14 % Monocytes % 5 % Eosinophils % 1 % Basophils % 1 % Neutrophils # 11.2 H (1.3-7.7) k/uL Lymphocytes # 1.9 (1.0-4.8) k/uL Monocytes # 0.7 (0-1.0) k/uL Eosinophils # 0.1 (0-0.7) k/uL Basophils # 0.1 (0-0.2) k/uL Hypochromasia Slight PT 10.8 (9.0-12.0) sec INR 1.0 (<1.2) APTT 21.6 L (22.0-30.0) sec D-Dimer 0.30 (<0.60) mg/L FEU Sodium (137-145) mmol/L Potassium (3.5-5.1) mmol/L Chloride (98-107) mmol/L Carbon Dioxide (22-30) mmol/L Anion Gap mmol/L BUN (7-17) mg/dL Creatinine (0.52-1.04) mg/dL Est GFR (CKD-EPI)AfAm (>60 ml/min/1.73 sqM) Est GFR (CKD-EPI)NonAf (>60 ml/min/1.73 sqM) Glucose (74-99) mg/dL Plasma Lactic Acid Nolberto (0.7-2.0) mmol/L Calcium (8.4-10.2) mg/dL Total Bilirubin (0.2-1.3) mg/dL AST (14-36) U/L ALT (4-34) U/L Alkaline Phosphatase (38-126) U/L Troponin I (0.000-0.034) ng/mL Total Protein (6.3-8.2) g/dL Albumin (3.5-5.0) g/dL Coronavirus (PCR) Not Detected (Not Detectd) Influenza Type A RNA (Not Detectd) Influenza Type B (PCR) (Not Detectd) 03/31/21 03/31/21 03/31/21 Range/Units 12:18 12:18 12:18 WBC (3.8-10.6) k/uL RBC (3.80-5.40) m/uL Hgb (11.4-16.0) gm/dL Hct (34.0-46.0) % MCV (80.0-100.0) fL MCH (25.0-35.0) pg MCHC (31.0-37.0) g/dL RDW (11.5-15.5) % Plt Count (150-450) k/uL MPV Neutrophils % % Lymphocytes % % Monocytes % % Eosinophils % % Basophils % % Neutrophils # (1.3-7.7) k/uL Lymphocytes # (1.0-4.8) k/uL Monocytes # (0-1.0) k/uL Eosinophils # (0-0.7) k/uL Basophils # (0-0.2) k/uL Hypochromasia PT (9.0-12.0) sec INR (<1.2) APTT (22.0-30.0) sec D-Dimer (<0.60) mg/L FEU Sodium 140 (137-145) mmol/L Potassium 2.8 L (3.5-5.1) mmol/L Chloride 103 (98-107) mmol/L Carbon Dioxide 33 H (22-30) mmol/L Anion Gap 4 mmol/L BUN 16 (7-17) mg/dL Creatinine 1.14 H (0.52-1.04) mg/dL Est GFR (CKD-EPI)AfAm 55 (>60 ml/min/1.73 sqM) Est GFR (CKD-EPI)NonAf 47 (>60 ml/min/1.73 sqM) Glucose 118 H (74-99) mg/dL Plasma Lactic Acid Nolberto 1.9 (0.7-2.0) mmol/L Calcium 9.7 (8.4-10.2) mg/dL Total Bilirubin 0.9 (0.2-1.3) mg/dL AST 25 (14-36) U/L ALT 13 (4-34) U/L Alkaline Phosphatase 55 (38-126) U/L Troponin I 0.025 (0.000-0.034) ng/mL Total Protein 5.9 L (6.3-8.2) g/dL Albumin 3.3 L (3.5-5.0) g/dL Coronavirus (PCR) (Not Detectd) Influenza Type A RNA (Not Detectd) Influenza Type B (PCR) (Not Detectd) 03/31/21 Range/Units 12:18 WBC (3.8-10.6) k/uL RBC (3.80-5.40) m/uL Hgb (11.4-16.0) gm/dL Hct (34.0-46.0) % MCV (80.0-100.0) fL MCH (25.0-35.0) pg MCHC (31.0-37.0) g/dL RDW (11.5-15.5) % Plt Count (150-450) k/uL MPV Neutrophils % % Lymphocytes % % Monocytes % % Eosinophils % % Basophils % % Neutrophils # (1.3-7.7) k/uL Lymphocytes # (1.0-4.8) k/uL Monocytes # (0-1.0) k/uL Eosinophils # (0-0.7) k/uL Basophils # (0-0.2) k/uL Hypochromasia PT (9.0-12.0) sec INR (<1.2) APTT (22.0-30.0) sec D-Dimer (<0.60) mg/L FEU Sodium (137-145) mmol/L Potassium (3.5-5.1) mmol/L Chloride (98-107) mmol/L Carbon Dioxide (22-30) mmol/L Anion Gap mmol/L BUN (7-17) mg/dL Creatinine (0.52-1.04) mg/dL Est GFR (CKD-EPI)AfAm (>60 ml/min/1.73 sqM) Est GFR (CKD-EPI)NonAf (>60 ml/min/1.73 sqM) Glucose (74-99) mg/dL Plasma Lactic Acid Nolberto (0.7-2.0) mmol/L Calcium (8.4-10.2) mg/dL Total Bilirubin (0.2-1.3) mg/dL AST (14-36) U/L ALT (4-34) U/L Alkaline Phosphatase (38-126) U/L Troponin I (0.000-0.034) ng/mL Total Protein (6.3-8.2) g/dL Albumin (3.5-5.0) g/dL Coronavirus (PCR) (Not Detectd) Influenza Type A RNA Not Detected (Not Detectd) Influenza Type B (PCR) Not Detected (Not Detectd) - EKG Data EKG Comments: EKG taken at 11:29 Sinus rhythm with occasional supraventricular premature complexes, nonspecific ST and T-wave abnormality Ventricular rate 68 MN interval 150 QRS duration 98 QTC 447 Disposition Clinical Impression: Shortness of breath Disposition: ADMITTED IP TO THIS HOSP Condition: Good Referrals: Lalo Nguyen MD [Primary Care Provider] - 1-2 days Decision Time: 15:34
[2021-03-31 12:42] LABS: Albumin 3.3 g/dL (3.5-5.0); Calcium 9.7 mg/dL (8.4-10.2); Total Bilirubin 0.9 mg/dL (0.2-1.3); Total Protein 5.9 g/dL (6.3-8.2)
[2021-03-31 12:47] LABS: MCV 99.2 fL (80.0-100.0)
[2021-03-31 12:52] LABS: Potassium 2.8 mmol/L (3.5-5.1)
[2021-03-31 13:11] LABS: Prothrombin Time 10.8 sec (9.0-12.0)
[2021-03-31 13:12] LABS: Partial Thromboplastin Time 21.6 sec (22.0-30.0)
--- NOTE | 2021-03-31 13:23 | XR ---
EXAMINATION TYPE: XR chest 2V DATE OF EXAM: 03/31/2021 COMPARISON: Chest x-ray 02/10/2021 HISTORY: Difficulty breathing, dyspnea TECHNIQUE: Frontal and lateral views of the chest are obtained. FINDINGS: There is no focal air space opacity, pleural effusion, or pneumothorax seen. Strand-like d ensities are present at the lung bases which may reflect atelectasis or scarring, there is eventratio n of right hemidiaphragm. Coronary artery calcifications are present. Wedge compression deformity of the midthoracic vertebral body is noted and is thought to have developed in the interval, loss of hei ght of approximately 50%. The cardiac silhouette size is within normal limits. The aorta is dense an d aneurysmal, tortuous. There are postop changes noted to the shoulders, there is a spinal curvature. Surgical clips present in the right upper quadrant. IMPRESSION: No acute cardiopulmonary process. Subacute osteoporotic compression deformity midthoraci c spine. Coronary artery disease, aortic aneurysm, correlate for COPD. Coronary artery disease, aorti c aneurysm.
[2021-03-31] MEDS ORDERED: IPRATROPIUM-ALBUTEROL 3 ML NEB INHALATION STA (13:45)
[2021-03-31] MEDS ORDERED: POTASSIUM CHLORIDE ER 20 MEQ TAB.ER PO STA (13:52)
[2021-03-31] MEDS ORDERED: NITROGLYCERIN SL TABS 0.4 MG TAB SUBLINGUAL PRN (17:04)
[2021-03-31] MEDS ORDERED: busPIRone HCl 5 MG TAB PO PRN (17:04)
[2021-03-31] MEDS ORDERED: PROMETHAZINE HCL PO PRN (17:04)
[2021-03-31] MEDS ORDERED: ALBUTEROL NEBULIZED 2.5 MG/3 ML INHALATION PRN (17:04)
[2021-03-31] MEDS ORDERED: CODEINE PO PRN (17:04)
[2021-03-31] MEDS: methylPREDNISolone SOD SUCCI 40 MG/ML 1 ML VIAL IV SCH ×2 (18:35→23:32)
[2021-03-31] MEDS: IPRATROPIUM-ALBUTEROL 3 ML NEB INHALATION SCH (20:10)
[2021-03-31] MEDS: NON FORMULARY DRUG (Budesonide/Glycopyr/Formoterol [Breztri Aerosphere Inhaler] 10.7 GM Gm INHALATION SCH (21:59)
[2021-03-31] MEDS: APIXABAN 5 MG TAB PO SCH (22:29)
[2021-03-31] MEDS: MONTELUKAST 10 MG TAB PO SCH (22:29)
[2021-03-31] MEDS: METOPROLOL SUCCINATE (ER) 25 MG TAB.ER.24H PO SCH (22:29)
[2021-03-31] MEDS: MIDODRINE 5 MG TAB PO SCH (22:29)
[2021-03-31] MEDS: ATORVASTATIN 20 MG TAB PO SCH (22:30)
[2021-03-31] MEDS: traZODone HCL 50 MG TAB PO PRN (23:32)
[2021-03-31] MEDS: AMIODARONE 100 MG TAB PO SCH (23:32)
[2021-04-01] MEDS: methylPREDNISolone SOD SUCCI 40 MG/ML 1 ML VIAL IV SCH ×4 (00:08→23:27)
[2021-04-01] MEDS: HYDROcodone/APAP 5-325MG 1 EACH TAB PO PRN ×3 (01:59→21:04)
[2021-04-01] MEDS: MEGESTROL 40 MG TAB PO SCH ×3 (05:39→21:07)
[2021-04-01] MEDS: IPRATROPIUM-ALBUTEROL 3 ML NEB INHALATION SCH ×4 (07:38→19:27)
[2021-04-01] MEDS: MIDODRINE 5 MG TAB PO SCH ×3 (08:43→21:20)
[2021-04-01] MEDS: APIXABAN 5 MG TAB PO SCH ×2 (08:43→21:03)
[2021-04-01] MEDS: METOPROLOL SUCCINATE (ER) 25 MG TAB.ER.24H PO SCH ×2 (08:44→21:03)
[2021-04-01] MEDS: FUROSEMIDE 40 MG TAB PO SCH (08:44)
--- NOTE | 2021-04-01 08:54 | P.CRDCN ---
History of Present Illness History of present illness: This is a pleasant 75-year-old with past medical history significant for postural hypotension, chronic kidney disease, hypertension, dementia, paroxysmal atrial fibrillation on Eliquis, COVID-19 infection spring 2020, Bronchitis. She follows with Dr. Smart. We are being consulted for chest pain. Patient presents to the emergency department with complaints of bilateral lower back roman n, mild shortness of breath. She states that she feels her "asthma bothering" her again. Patient is a poor historian, however, she mainly complains of bilateral back pain when taking a deep breath or coughing. This has been getting worse over the past couple days. She also has lower back pain with movement and sitting up. She denies any recent fall or injury. She does endorse some shortness of breath with activity. Patient states she used her albuterol nebulizer at home with no relief. She denies any pain in her chest, palpitations, lightheadedness, dizziness, syncope or near syncope. She denies any fever, chills, nausea, vomiting, abdominal pain. No lower extremity edema. She denies tobacco use. Patient was admitted to the hospital in November 2020 with complaints of chest pain and shortness of breath. She was evaluated by nuclear Stress test and echocardiogram. Nuclear stress test showed mild ischemia. She was evaluated Dr. Cotton, nuclear stress test was reviewed and medical therapy was advised. She was also recently admitted in February 2021 for atypical chest pain, acute coronary syndrome was ruled out. Imdur dose was increased. Patient was given IV Steroids and discharged on oral steroids. DIAGNOSTICS EKG sinus rhythm, heart rate 68, T wave inversions in lead v2 and V3 and aVL. No STT wave changes to suggest acute ischemia. EKG in Feb with similar findings. Chest Xray-no acute cardio pulmonary processes. Subacute osteoporotic compression deformity midthoracic spine. Aortic aneurysm, COPD, coronary calcifications are present Most recent echo October 2020 revealed EF 5560% Laboratory data reviewed- WBC 14, hemoglobin 11.4, platelets 274, d-dimer ne gative, sodium 140, potassium 2.8, BUN 16, serum creatinine 1.1, troponin negative, COVID-19 negative, influenza A and influenza B negative REVIEW OF SYSTEMS At the time of my exam: CONSTITUTIONAL: Denies fever or chills. CARDIOVASCULAR: Denies chest pain and shortness of breath, no orthopnea, PND or palpitations. RESPIRATORY: + cough. GASTROINTESTINAL: Denies abdominal pain, diarrhea, constipation, nausea or vomiting. MUSCULOSKELETAL: +lower back pain NEUROLOGIC: Denies numbness, tingling or weakness. ENDOCRINE: Denies fatigue, weight change, polydipsia or polyurina. GENITOURINARY: Denies burning, hematuria or urgency with micturation. HEMATOLOGIC: Denies history of anemia or bleeding. PHYSICAL EXAMINATION Vital signs reviewed. CONSTITUTIONAL: No apparent distress. HEENT: Head is normocephalic. Pupils are equal, round. Sclerae anicteric. Mucous membranes of the mouth are moist. No JVD. No carotid bruit. CHEST EXAMINATION: Lungs with poor air exchange bilaterally, wheezing bila terally to auscultation. Patient endorses lower back pain with deep breathing HEART EXAMINATION: Regular rate and rhythm. S1, S2 heard. No murmurs, gallops or rub. ABDOMEN: Soft, nontender. Positive bowel sounds. EXTREMITIES: 2+ peripheral pulses, no lower extremity edema and no calf tenderness. NEUROLOGIC EXAMINATION: Patient is awake, alert and oriented to person and knows she is in the hospital, poor recall ASSESSMENT Lower back pain, worsening with inspiration and coughing Shortness of breath Chest xray report revealed Subacute osteoporotic compression deformity midthoracic spine History asthma/COPD Paroxysmal atrial fibrillation on Eliquis, currently maintaining sinus mechanism History of Hypertension History of postural hypotension Chronic kidney disease Dementia Previous COVID-19 infection Spring 2020 Bronchitis diagnosed at [facility] From a cardiology perspective, patient denying any chest pain, EKG with no evidence of acute ischemia, troponin negative. Echo October 2020 revealed EF 5560%. Her main complaints are lower back pain, worsening with inspiration and coughing. She does not appear to be in heart failure on exam. Recommend possible pulmonary consult in regards to patient's asthma management. We will follow the patient as needed. Please reach out with any further questions or concerns. Patient to follow up outpatient with Dr. Smart Past Medical History Past Medical History: Atrial Fibrillation, Asthma, COPD, Dementia, Hyperlipidemia, Hypertension, Memory Impairment, Renal Disease, Seizure Disorder, Vascular Disorder Additional Past Medical History / Comment(s): Aortic aneurysm, daughter states past fluid around lung that was drained off, CKD staf III, nephrolithiasis, UTI/cystitis, one seizure in 2019, anemia, chronic back pain, bilateral ankle edema, FALLS History of Any Multi-Drug Resistant Organisms: None Reported Past Surgical History: Back Surgery, Hysterectomy, Orthopedic Surgery, Tonsillec yehuda, Tubal Ligation Additional Past Surgical History / Comment(s): D&C, EGD, colonoscopy, L hip hemiarthroplasty d/t fracure, R shoulder surgery d/t fracture-has hardware Past Anesthesia/Blood Transfusion Reactions: Motion Sickness Additional Past Anesthesia/Blood Transfusion Reaction / Comment(s): Pt has clausterphobia. Past Psychological History: Anxiety Smoking Status: Never smoker Past Alcohol Use History: None Reported Past Drug Use History: None Reported - Past Family History Mother Family Medical History: Hypertension Father Family Medical History: Coronary Artery Disease (CAD), Myocardial Infarction ([place]) Additional Family Medical History / Comment(s): Father of a [place] in his 70s. Medications and Allergies Home Medications Medication Instructions Recorded Confirmed Type Montelukast Sodium [Singulair] 10 mg PO HS 10/01/19 03/31/21 History Albuterol Sulfate [Ventolin HFA] 2 puff INHALATION RT-QID PRN 05/05/20 03/31/21 History Apixaban [Eliquis] 5 mg PO BID #60 tab 05/06/20 03/31/21 Rx HYDROcodone/APAP 5-325MG [[place] 1 tab PO Q12H PRN 06/08/20 03/31/21 History 5-325] Omeprazole 20 mg PO DAILY 10/24/20 03/31/21 History Potassium Chloride [Potassium 8 meq PO DAILY 10/24/20 03/31/21 History Chloride ER] Nitroglycerin Sl Tabs [Nitrostat] 0.4 mg SUBLINGUAL Q5M PRN 100 Days 10/27/20 03/31/21 Rx #100 tab Amiodarone [Cordarone] 100 mg PO BID 11/05/20 03/31/21 History Atorvastatin [Lipitor] 20 mg PO HS 90 Days #90 tab 11/09/20 03/31/21 Rx Budesonide/Glycopyr/Formoterol 2 puff INHALATION RT-BID 02/10/21 03/31/21 History [Breztri Aerosphere Inhaler] Furosemide [Lasix] 40 mg PO DAILY 02/10/21 03/31/21 History Metoprolol Succinate (ER) [Toprol 25 mg PO BID 02/10/21 03/31/21 History XL] busPIRone HCL [Buspar] 7.5 mg PO BID PRN 02/10/21 03/31/21 History predniSONE [Deltasone] 20 mg PO DAILY 30 Days #30 tab 02/12/21 03/31/21 Rx Megestrol [Megace] 40 mg PO BID 03/31/21 03/31/21 History Midodrine HCl [ProAmantine] 2.5 mg PO HS 03/31/21 03/31/21 History Midodrine HCl [ProAmantine] 5 mg PO DAILY 03/31/21 03/31/21 History Promethazine HCl/Codeine 5 ml PO HS PRN 03/31/21 03/31/21 History [Promethazine-Codeine Syrup] traZODone HCL [Desyrel] 50 mg PO HS PRN 03/31/21 03/31/21 History Allergies Allergy/AdvReac Type Severity Reaction Status Date / Time levofloxacin Allergy Swelling Verified 03/31/21 13:11 memantine [From Namenda] Allergy Rash/Hives Verified 03/31/21 13:11 lisinopril AdvReac Unknown Verified 03/31/21 13:11 Physical Exam Vitals: Vital Signs Temp Pulse Resp BP Pulse Ox 04/01/21 05:54 63 16 135/106 93 L 03/31/21 23:52 70 16 168/92 95 03/31/21 22:33 80 18 168/92 98 03/31/21 20:22 80 03/31/21 20:12 74 03/31/21 18:41 74 18 138/64 99 03/31/21 14:57 71 16 03/31/21 14:49 75 16 03/31/21 12:25 20 03/31/21 11:14 97.6 F 69 18 143/84 100 Results 03/31/21 12:18 03/31/21 12:18 Cardiac Enzymes 03/31/21 03/31/21 Range/Units 12:18 12:18 AST 25 (14-36) U/L Troponin I 0.025 (0.000-0.034) ng/mL Coagulation 03/31/21 Range/Units 12:18 PT 10.8 (9.0-12.0) sec APTT 21.6 L (22.0-30.0) sec CBC 03/31/21 Range/Units 12:18 WBC 14.0 H (3.8-10.6) k/uL RBC 3.59 L (3.80-5.40) m/uL Hgb 11.4 (11.4-16.0) gm/dL Hct 35.6 (34.0-46.0) % Plt Count 274 (150-450) k/uL Comprehensive Metabolic Panel 03/31/21 Range/Units 12:18 Sodium 140 (137-145) mmol/L Potassium 2.8 L (3.5-5.1) mmol/L Chloride 103 (98-107) mmol/L Carbon Dioxide 33 H (22-30) mmol/L BUN 16 (7-17) mg/dL Creatinine 1.14 H (0.52-1.04) mg/dL Glucose 118 H (74-99) mg/dL Calcium 9.7 (8.4-10.2) mg/dL AST 25 (14-36) U/L ALT 13 (4-34) U/L Alkaline Phosphatase 55 (38-126) U/L Total Protein 5.9 L (6.3-8.2) g/dL Albumin 3.3 L (3.5-5.0) g/dL Current Medications Generic Name Dose Route Start Last Admin Trade Name Freq PRN Reason Stop Dose Admin Hydrocodone Bitart/Acetaminophen 1 each 03/31/21 17:04 04/01/21 01:59 Hydrocodone/Apap 5-325mg 1 Each Tab PO 1 each Q12H PRN Administration Pain Albuterol Sulfate 2.5 mg 03/31/21 17:04 Albuterol Nebulized 2.5 Mg/3 Ml INHALATION RT-QID PRN Shortness Of Breath Albuterol/Ipratropium 3 ml 03/31/21 20:00 03/31/21 20:10 Ipratropium-Albuterol 3 Ml Neb INHALATION 3 ml RT-QID MACI Administration Amiodarone HCl 100 mg 03/31/21 21:00 03/31/21 23:32 Amiodarone 100 Mg Tab PO 100 mg BID MACI Administration Apixaban 5 mg 03/31/21 21:00 03/31/21 22:29 Apixaban 5 Mg Tab PO 5 mg BID MACI Administration Protocol Atorvastatin Calcium 20 mg 03/31/21 21:00 03/31/21 22:30 Atorvastatin 20 Mg Tab PO 20 mg HS MACI Administration Buspirone HCl 7.5 mg 03/31/21 17:04 Buspirone Hcl 5 Mg Tab PO BID PRN Anxiety Furosemide 40 mg 04/01/21 09:00 Furosemide 40 Mg Tab PO DAILY MACI Ceftriaxone Sodium 1 gm/ 50 mls @ 100 mls/hr 03/31/21 17:15 03/31/21 18:35 Sodium Chloride IVPB 100 mls/hr Q24HR MACI Administration Protocol Megestrol Acetate 40 mg 03/31/21 21:00 04/01/21 05:39 Megestrol 40 Mg Tab PO Not Given BID [facility] Methylprednisolone Sodium Succinate 40 mg 03/31/21 17:30 03/31/21 23:32 Methylprednisolone Sod Succi 40 Mg/Ml 1 Ml Vial IV 40 mg Q8HR MACI Administration Metoprolol Succinate 25 mg 03/31/21 21:00 03/31/21 22:29 Metoprolol Succinate (Er) 25 Mg Tab.Er.24h PO 25 mg BID MACI Administration Midodrine 2.5 mg 03/31/21 21:00 03/31/21 22:29 Midodrine 5 Mg Tab PO 2.5 mg HS MACI Administration Midodrine 5 mg 04/01/21 09:00 Midodrine 5 Mg Tab PO DAILY MACI Montelukast Sodium 10 mg 03/31/21 21:00 03/31/21 22:29 Montelukast 10 Mg Tab PO 10 mg HS MACI Administration Nitroglycerin 0.4 mg 03/31/21 17:04 Nitroglycerin Sl Tabs 0.4 Mg Tab SUBLINGUAL Q5M PRN Chest Pain Non-Formulary Medication 2 puff 03/31/21 20:00 03/31/21 21:59 Budesonide/Glycopyr/Formoterol [Breztri Aerosphere Inhaler] INHALATION Not Given RT-BID MACI Non-Formulary Medication 5 ml 03/31/21 17:04 Promethazine Hcl/Codeine [Promethazine-Codeine Syrup] PO HS PRN Cough Pantoprazole Sodium 40 mg 04/01/21 07:30 Pantoprazole 40 Mg Tablet PO AC-BRKFST [facility] Potassium Chloride 10 meq 04/01/21 09:00 Potassium Chloride Er 10 Meq Tab.Er.Prt PO DAILY MACI Trazodone HCl 50 mg 03/31/21 17:04 03/31/21 23:32 Trazodone Hcl 50 Mg Tab PO 50 mg HS PRN Administration Insomnia 03/31/21 12:18 03/31/21 12:18
[2021-04-01] MEDS: AMIODARONE 100 MG TAB PO SCH ×2 (08:59→21:07)
[2021-04-01] MEDS: PANTOPRAZOLE 40 MG TABLET PO SCH (09:00)
[2021-04-01] MEDS ORDERED: POTASSIUM CHLORIDE ER 10 MEQ TAB.ER.PRT PO SCH (09:00)
--- NOTE | 2021-04-01 14:20 | HP ---
HISTORY AND PHYSICAL 35-year-old female with significant history of postural hypotension, chronic kidney disease, hypertension, dementia, paroxysmal atrial fib on Eliquis, Covid 19 in the spring. She became worsening with her pulmonary fibrosis. Since then she takes her into atrial fibrillation with rapid ventricular response. She also has pain in her mid back, was found to be a possible thoracic compression fracture for which neurosurgery is consulted. Admitted with COPD, pulmonary fibrosis exacerbation, atypical chest pain, and neurosurgical consultation. Chest x-ray is negative. Past medical history reviewed. See old chart. Family history reviewed. See old chart. Medications reviewed. See old chart. PHYSICAL EXAMINATION: Vital signs reviewed. She looks skin dry skin. Poor skin turgor. CARDIOVASCULAR: S1, S2. Irregularly irregular rhythm. LUNGS: Rales times three. Wheezes x4. EXTREMITIES: 2+ edema. NEUROLOGIC: Cranial nerves intact. PSYCH: Fair mood and affect. ASSESSMENT: 1. Thoracic compression fracture, subacute osteoporotic in nature. 2. Asthma. 3. Chronic obstructive pulmonary disease. 4. Pulmonary fibrosis. 5. Status post COVID. 6. Paroxysmal atrial fibrillation. 7. Hypertension. 8. Chronic kidney disease. 9. Dementia. 10.COVID 19. Cardiology consult, neurosurgical consult, steroids and antibiotics for tracheobronchitis, pulmonary fibrosis. Prognosis guarded. MMODL / IJN: [id number] /
--- NOTE | 2021-04-01 14:42 | P.CNOR ---
History of Present Illness - [facility] Consult date: 04/01/21 Requesting physician: Lalo Nguyen Consult reason: other (thoracic compression fx) History of present illness: Patient is a 75-year-old female with a history of asthma, COPD, A. fib, dementia who presented the emergency department [facility] yesterday with shortness of breath. Patient seen at bedside this morning in the emergency room resting comfortably lying semirecumbent in bed. Orthopedics has been consult for vertebral fracture. Patient says she has been having back pain ongoing over the past several years. Patient says her back pain is exacerbated when she tries take a deep breath /during movement/while coughing. Patient denies any falls/trauma to head. Patient does have a history of left hip hemiarthroplasty status post subcapital femur [place] [address] Nolasco. Patient mentions she also has history of previous spine surgery. Patient says spine surgery was performed in [place] many years ago. patient cannot recall what procedure was performed/what year it was performed. Patient says she does have some neck pain as well as lower back pain. Patient denies any previous history ITZEL. Patient denies chest pain, fever, nausea/vomiting, change in vision. Past Medical History Past Medical History: Atrial Fibrillation, Asthma, COPD, Dementia, Hyperlipidemia, Hypertension, Memory Impairment, Renal Disease, Seizure Disorder, Vascular Disorder Additional Past Medical History / Comment(s): Aortic aneurysm, daughter states past fluid around lung that was drained off, CKD staf III, nephrolithiasis, UTI/cystitis, one seizure in 2019, anemia, chronic back pain, bilateral ankle edema, FALLS History of Any Multi-Drug Resistant Organisms: None Reported Past Surgical History: Back Surgery, Hysterectomy, Orthopedic Surgery, Ton sillectomy, Tubal Ligation Additional Past Surgical History / Comment(s): D&C, EGD, colonoscopy, L hip hemiarthroplasty d/t fracure, R shoulder surgery d/t fracture-has hardware Past Anesthesia/Blood Transfusion Reactions: Motion Sickness Additional Past Anesthesia/Blood Transfusion Reaction / Comm: Pt has clausterphobia. Past Psychological History: Anxiety Smoking Status: Never smoker Past Alcohol Use History: None Reported Past Drug Use History: None Reported - Past Family History Mother Family Medical History: Hypertension Father Family Medical History: Coronary Artery Disease (CAD), Myocardial Infarction ([place]) Additional Family Medical History / Comment(s): Father of a AR in his 70s. Medications and Allergies Home Medications Medication Instructions Recorded Confirmed Type Montelukast Sodium [Singulair] 10 mg PO HS 10/01/19 03/31/21 History Albuterol Sulfate [Ventolin HFA] 2 puff INHALATION RT-QID PRN 05/05/20 03/31/21 History Apixaban [Eliquis] 5 mg PO BID #60 tab 05/06/20 03/31/21 Rx HYDROcodone/APAP 5-325MG [[place] 1 tab PO Q12H PRN 06/08/20 03/31/21 History 5-325] Omeprazole 20 mg PO DAILY 10/24/20 03/31/21 History Potassium Chloride [Potassium 8 meq PO DAILY 10/24/20 03/31/21 History Chloride ER] Nitroglycerin Sl Tabs [Nitrostat] 0.4 mg SUBLINGUAL Q5M PRN 100 Days 10/27/20 03/31/21 Rx #100 tab Amiodarone [Cordarone] 100 mg PO BID 11/05/20 03/31/21 History Atorvastatin [Lipitor] 20 mg PO HS 90 Days #90 tab 11/09/20 03/31/21 Rx Budesonide/Glycopyr/Formoterol 2 puff INHALATION RT-BID 02/10/21 03/31/21 History [Breztri Aerosphere Inhaler] Furosemide [Lasix] 40 mg PO DAILY 02/10/21 03/31/21 History Metoprolol Succinate (ER) [Toprol 25 mg PO BID 02/10/21 03/31/21 History XL] busPIRone HCL [Buspar] 7.5 mg PO BID PRN 02/10/21 03/31/21 History predniSONE [Deltasone] 20 mg PO DAILY 30 Days #30 tab 02/12/21 03/31/21 Rx Megestrol [Megace] 40 mg PO BID 03/31/21 03/31/21 History Midodrine HCl [ProAmantine] 2.5 mg PO HS 03/31/21 03/31/21 History Midodrine HCl [ProAmantine] 5 mg PO DAILY 03/31/21 03/31/21 History Promethazine HCl/Codeine 5 ml PO HS PRN 03/31/21 03/31/21 History [Promethazine-Codeine Syrup] traZODone HCL [Desyrel] 50 mg PO HS PRN 03/31/21 03/31/21 History Allergies Allergy/AdvReac Type Severity Reaction Status Date / Time levofloxacin Allergy Swelling Verified 03/31/21 13:11 memantine [From Namenda] Allergy Rash/Hives Verified 03/31/21 13:11 lisinopril AdvReac Unknown Verified 03/31/21 13:11 Physical Examination Inspection: Negative for any open fractures, erythema, ecchymosis, nodules Sensation: Sensation is equal, symmetric, and intact bilaterally throughout the upper and lower extremities Palpation: Moderate TTP diffusely along midline c-spine. Moderate TTP throughout the lumbar spine at midline as well in SI regions bilaterally Range of motion: Patient has full range of motion in LUE in shoulder forward elevation, abduction, external/internal rotation, elbow extension/flexion, wrist flexion/extension. Limited forward elevation, abduction of shoulder in RUE. FROM in RUE in elbow flexion/extension. Patient is able to elevate legs off of bed and extension/flexion of knee is full bilaterally. Motor: 4+/5 in resisted shoulder forward elevation /abduction/ internal/external rotation; 4+/5 resisted elbow flexion/extension and wrist flexion and extension bilaterally. 4+/5 in all major motor groups in the lower extremities bilaterally Neurovascular: Neurovascular status intact bilaterally. Capillary refill under 3 seconds in digits of the upper extremities. Radial pulses intact, 2+ bilaterally. Special tests: Negative Demetria's bilaterally; negative clonus bilaterally; negative Homans bilaterally Results - Labs Labs: Abnormal Lab Results - Last 24 Hours (Table) 03/31/21 03/31/21 03/31/21 Range/Units 12:18 12:18 12:18 WBC 14.0 H (3.8-10.6) k/uL RBC 3.59 L (3.80-5.40) m/uL Neutrophils # 11.2 H (1.3-7.7) k/uL APTT 21.6 L (22.0-30.0) sec Potassium 2.8 L (3.5-5.1) mmol/L Carbon Dioxide 33 H (22-30) mmol/L Creatinine 1.14 H (0.52-1.04) mg/dL Glucose 118 H (74-99) mg/dL Total Protein 5.9 L (6.3-8.2) g/dL Albumin 3.3 L (3.5-5.0) g/dL H & H 03/31/21 Range/Units 12:18 Hgb 11.4 (11.4-16.0) gm/dL Hct 35.6 (34.0-46.0) % Coagulation 03/31/21 Range/Units 12:18 INR 1.0 (<1.2) Result Diagrams: 03/31/21 12:18 03/31/21 12:18 Assessment and Plan Assessment: 1. low back pain; neck pain 2. multiple medical comorbidities Plan: 1. Low back pain; neck pain - Patient seen at bedside. xrays of lumbar spine ordered for further evaluation. We do not recommend any emergent/urgent orthopedic surgical intervention at this time. We will wait x-rays of lumbar spine to be performed before any further potential orthopedic intervention. At this time he recommend conservative measures with PT and anti-inflammatories. CT of cervical spine performed in 06/2019 does demonstrates some spondylosis throughout the cervical spine. X-rays of cervical spine will be ordered ordered for further eval. we'll continue follow patient while in hospital. 2. Appreciate medical management 3. Pain management - [place] 4. DVT ppx - Eliquis 5. GI ppx - protonix 6. PT/OT - WBAT w/walker Time with Patient: Less than 30
--- NOTE | 2021-04-01 15:57 | XR ---
EXAMINATION TYPE: XR lumbar spine 2 or 3V DATE OF EXAM: 04/01/2021 COMPARISON: None HISTORY: Pain TECHNIQUE: 3 view lumbar spine FINDINGS: There are 5 lumbar-type vertebral bodies. L1-L4 pedicles are intact. Scoliosis is present w ith the convexity to the left centered at L2. Pedicle screws and fixation rods are present L5-S1. Spa cers present L5-S1. Some compression deformity is noted at L4. This is of indeterminate age. There is also made of a compression deformity superior endplate of T12 of indeterminate age. These of approxi mately 50% loss of vertebral body height. IMPRESSION: 1. Postsurgical pedicle screws L5-S1. 2. Compression deformity of L4 and T12 of indeterminate age.
--- NOTE | 2021-04-01 15:59 | XR ---
EXAMINATION TYPE: XR cervical spine limited DATE OF EXAM: 04/01/2021 COMPARISON: None HISTORY: Pain TECHNIQUE: 4 views cervical spine FINDINGS: Prevertebral space is normal. There is loss of disc height through the mid and lower cervic al spine. Anterior vertebral body spurring is present. There is a slight kyphosis centered at C3-4. P osterior spinal lamellar line appears intact. Vertebral body heights are preserved. IMPRESSION: 1. Moderately advanced degenerative changes including degenerative disc changes and kyphosis through the cervical spine.
[2021-04-01] MEDS: NON FORMULARY DRUG (Budesonide/Glycopyr/Formoterol [Breztri Aerosphere Inhaler] 10.7 GM Gm INHALATION SCH ×2 (16:26→23:28)
--- NOTE | 2021-04-01 16:45 | P.CNPUL ---
History of Present Illness Consult date: 04/01/21 Reason for consult: dyspnea, COPD Chief complaint: Shortness of breath History of present illness: Patient is a pleasant 75-year-old female with multiple history of admission the hospital associated with the COPD as well as the hypertension hypertensive cardiovascular disease, she has a prior medical history of chronic atrial fibrillation and advanced dementia asthma COPD, patient presented into the emergency department with three-day history of increasing shortness of breath intermittent cough she has problems associated with the back pain and dry cough, been she arrived in the emergency department her symptoms improved significantly with bronchodilator however she continued to have dizziness at that time patient stabilizes currently denies any symptoms on specific questioning denies any loss of consciousness seizure-like activity or hemiparesis, denies any chest pain or radiation of pain denies any cough or sputum production, denies any nausea vomiting and diarrhea, on arrival she was afebrile and saturation 100%, blood pressure was 1 4384 history 16 pulse 69 temperature 90.7, her labs were significant for potential just 2.8, BUN/creatinine 16/1.14, white cell count of 14,000, chest x-ray no acute cardiopulmonary process, osteoporotic changes are seen in the mid thoracic spine, compression deformity of L4 in 212 noted on lumbar x-ray, C-spine and Review of Systems All systems: negative Past Medical History Past Medical History: Atrial Fibrillation, Asthma, COPD, Dementia, Hyperlipidemia, Hypertension, Memory Impairment, Renal Disease, Seizure Disorder, Vascular Disorder Additional Past Medical History / Comment(s): Aortic aneurysm, daughter states past fluid around lung that was drained off, CKD staf III, nephrolithiasis, UTI/cystitis, one seizure in 2019, anemia, chronic back pain, bilateral ankle edema, FALLS History of Any Multi-Drug Resistant Organisms: None Reported Past Surgical History: Back Surgery, Hysterectomy, Orthopedic Surgery, Tonsillectomy, Tubal Ligation Additional Past Surgical History / Comment(s): D&C, EGD, colonoscopy, L hip hemiarthroplasty d/t fracure, R shoulder surgery d/t fracture-has hardware Past Anesthesia/Blood Transfusion Reactions: Motion Sickness Additional Past Anesthesia/Blood Transfusion Reaction / Comment(s): Pt has clausterphobia. Past Psychological History: Anxiety Smoking Status: Never smoker Past Alcohol Use History: None Reported Past Drug Use History: None Reported - Past Family History Mother Family Medical History: Hypertension Father Family Medical History: Coronary Artery Disease (CAD), Myocardial Infarction ([place]) Additional Family Medical History / Comment(s): Father of a [place] in his 70s. Medications and Allergies Home Medications Medication Instructions Recorded Confirmed Type Montelukast Sodium [Singulair] 10 mg PO HS 10/01/19 03/31/21 History Albuterol Sulfate [Ventolin HFA] 2 puff INHALATION RT-QID PRN 05/05/20 03/31/21 History Apixaban [Eliquis] 5 mg PO BID #60 tab 05/06/20 03/31/21 Rx HYDROcodone/APAP 5-325MG [[place] 1 tab PO Q12H PRN 06/08/20 03/31/21 History 5-325] Omeprazole 20 mg PO DAILY 10/24/20 03/31/21 History Potassium Chloride [Potassium 8 meq PO DAILY 10/24/20 03/31/21 History Chloride ER] Nitroglycerin Sl Tabs [Nitrostat] 0.4 mg SUBLINGUAL Q5M PRN 100 Days 10/27/20 03/31/21 Rx #100 tab Amiodarone [Cordarone] 100 mg PO BID 11/05/20 03/31/21 History Atorvastatin [Lipitor] 20 mg PO HS 90 Days #90 tab 11/09/20 03/31/21 Rx Budesonide/Glycopyr/Formoterol 2 puff INHALATION RT-BID 02/10/21 03/31/21 History [Breztri Aerosphere Inhaler] Furosemide [Lasix] 40 mg PO DAILY 02/10/21 03/31/21 History Metoprolol Succinate (ER) [Toprol 25 mg PO BID 02/10/21 03/31/21 History XL] busPIRone HCL [Buspar] 7.5 mg PO BID PRN 02/10/21 03/31/21 History predniSONE [Deltasone] 20 mg PO DAILY 30 Days #30 tab 02/12/21 03/31/21 Rx Megestrol [Megace] 40 mg PO BID 03/31/21 03/31/21 History Midodrine HCl [ProAmantine] 2.5 mg PO HS 03/31/21 03/31/21 History Midodrine HCl [ProAmantine] 5 mg PO DAILY 03/31/21 03/31/21 History Promethazine HCl/Codeine 5 ml PO HS PRN 03/31/21 03/31/21 History [Promethazine-Codeine Syrup] traZODone HCL [Desyrel] 50 mg PO HS PRN 03/31/21 03/31/21 History Allergies Allergy/AdvReac Type Severity Reaction Status Date / Time levofloxacin Allergy Swelling Verified 03/31/21 13:11 memantine [From Namenda] Allergy Rash/Hives Verified 03/31/21 13:11 lisinopril AdvReac Unknown Verified 03/31/21 13:11 Physical Exam Vitals: Vital Signs Temp Pulse Pulse Resp BP BP Pulse Ox 04/01/21 16:00 99.1 F 79 16 171/100 98 04/01/21 15:49 83 16 133/93 97 04/01/21 13:08 74 04/01/21 12:59 72 04/01/21 09:03 64 04/01/21 09:00 68 147/92 95 04/01/21 08:54 63 04/01/21 05:54 63 16 135/106 93 L 03/31/21 23:52 70 16 168/92 95 03/31/21 22:33 80 18 168/92 98 03/31/21 20:22 80 03/31/21 20:12 74 03/31/21 18:41 74 18 138/64 99 Intake and Output 04/01/21 04/01/21 04/01/21 06:59 14:59 22:59 Other: Weight 69.853 kg - Constitutional General appearance: average body habitus, cooperative, disheveled - EENT Eyes: EOMI, PERRLA ENT: other Ears: bilateral: normal - Neck Carotids: bilateral: upstroke normal Thyroid: bilateral: normal size - Respiratory Respiratory: bilateral: CTA - Cardiovascular Rhythm: regular Heart sounds: normal: S1, S2 - Gastrointestinal General gastrointestinal: soft - Neurologic Neurologic: CNII-XII intact - Musculoskeletal Musculoskeletal: gait normal, generalized weakness - Psychiatric Psychiatric: A&O x's 3, appropriate affect, intact judgment & insight Results - Laboratory Findings CBC and BMP: 03/31/21 12:18 04/01/21 15:48 PT/INR, D-dimer PT 10.8 sec (9.0-12.0) 03/31/21 12:18 INR 1.0 (<1.2) 03/31/21 12:18 D-Dimer 0.30 mg/L FEU (<0.60) 03/31/21 12:18 Abnormal lab findings: Abnormal Labs 03/31/21 03/31/21 03/31/21 12:18 12:18 12:18 WBC 14.0 H RBC 3.59 L Neutrophils # 11.2 H APTT 21.6 L Potassium 2.8 L Carbon Dioxide 33 H Creatinine 1.14 H Glucose 118 H Total Protein 5.9 L Albumin 3.3 L - Diagnostic Findings Chest x-ray: report reviewed, image reviewed (Finding as noted above) Assessment and Plan Assessment: Tracheobronchitis with acute COPD exacerbation Shortness of breath due to multifactorial processes including COPD back pain issues e Atrial fibrillation Hypertension hypertensive cardiovascular disease Postural hypertension and dizziness probably related to that History of COVID-19 infection Plan: From pulmonary standpoint continue supportive care, continue supplemental oxygen is needed deep breathing sense incentive spirometry, continue trial of bron chodilator antibiotics steroids for now Time with Patient: Greater than 30
[2021-04-01] MEDS: traZODone HCL 50 MG TAB PO PRN (21:03)
[2021-04-01] MEDS: ATORVASTATIN 20 MG TAB PO SCH (21:03)
[2021-04-01] MEDS: MONTELUKAST 10 MG TAB PO SCH (21:03)
[2021-04-02] MEDS: HYDROcodone/APAP 5-325MG 1 EACH TAB PO PRN ×3 (05:48→15:58)
[2021-04-02] MEDS: IPRATROPIUM-ALBUTEROL 3 ML NEB INHALATION SCH ×4 (08:10→20:22)
[2021-04-02] MEDS: methylPREDNISolone SOD SUCCI 40 MG/ML 1 ML VIAL IV SCH ×3 (08:28→23:32)
[2021-04-02] MEDS: FUROSEMIDE 40 MG TAB PO SCH (08:28)
[2021-04-02] MEDS: MEGESTROL 40 MG TAB PO SCH ×2 (08:29→20:09)
[2021-04-02] MEDS: METOPROLOL SUCCINATE (ER) 25 MG TAB.ER.24H PO SCH ×2 (08:29→20:09)
[2021-04-02] MEDS: AMIODARONE 100 MG TAB PO SCH ×2 (08:29→20:09)
[2021-04-02] MEDS: PANTOPRAZOLE 40 MG TABLET PO SCH (08:29)
[2021-04-02] MEDS: MIDODRINE 5 MG TAB PO SCH ×2 (08:30→20:09)
[2021-04-02] MEDS: APIXABAN 5 MG TAB PO SCH ×2 (08:30→20:09)
[2021-04-02] MEDS: POTASSIUM CHLORIDE ER 20 MEQ TAB.ER PO SCH (08:30)
--- NOTE | 2021-04-02 17:32 | PN ---
PROGRESS NOTE This is a 75-year-old white female with COPD exacerbation, tracheobronchitis, admitted with respiratory distress. Her cervical lumbar x-rays showed osteoporosis, degenerative disk disease. Wait and see if possibly an LSO brace will be needed. Continue with IV steroids for breathing. Vital signs stable. Cardiovascular S1, S2. Lungs scattered wheeze. Hematology negative Homans. Psych fair mood and affect. Musculoskeletal: Tenderness to palpation on thoracic spine. Plan: Continue steroids. Wait for orthopedic recommendations for her back and an LSO brace. Prognosis guarded. MMODL / IJN: [id number] /
[2021-04-02] MEDS: NON FORMULARY DRUG (Budesonide/Glycopyr/Formoterol [Breztri Aerosphere Inhaler] 10.7 GM Gm INHALATION SCH ×2 (19:33→20:45)
[2021-04-02 19:35] VITALS: RESP 17
[2021-04-02] MEDS: MONTELUKAST 10 MG TAB PO SCH (20:09)
[2021-04-02] MEDS: ATORVASTATIN 20 MG TAB PO SCH (20:09)
[2021-04-03] MEDS: IPRATROPIUM-ALBUTEROL 3 ML NEB INHALATION SCH ×3 (08:29→16:00)
[2021-04-03] MEDS: methylPREDNISolone SOD SUCCI 40 MG/ML 1 ML VIAL IV SCH ×2 (09:11→16:23)
[2021-04-03] MEDS: APIXABAN 5 MG TAB PO SCH (09:11)
[2021-04-03] MEDS: FUROSEMIDE 40 MG TAB PO SCH (09:11)
[2021-04-03] MEDS: POTASSIUM CHLORIDE ER 20 MEQ TAB.ER PO SCH (09:11)
[2021-04-03] MEDS: PANTOPRAZOLE 40 MG TABLET PO SCH (09:11)
[2021-04-03] MEDS: MIDODRINE 5 MG TAB PO SCH (09:12)
[2021-04-03] MEDS: AMIODARONE 100 MG TAB PO SCH (09:13)
[2021-04-03] MEDS: MEGESTROL 40 MG TAB PO SCH (09:14)
[2021-04-03] MEDS: HYDROcodone/APAP 5-325MG 1 EACH TAB PO PRN ×2 (09:21→16:19)
[2021-04-03] MEDS: METOPROLOL SUCCINATE (ER) 25 MG TAB.ER.24H PO SCH (09:22)
--- NOTE | 2021-04-03 12:08 | P.PN ---
Subjective Progress Note Date: 04/03/21 Principal diagnosis: Tracheobronchitis with acute COPD exacerbation Shortness of breath due to multifactorial processes including COPD back pain issues e Atrial fibrillation Hypertension hypertensive cardiovascular disease Postural hypertension and dizziness probably related to that History of COVID-19 infection 04/04/2021, patient seen eval examined during the rounds labs reviewed medications reviewed care plan discussed, respiratory status continued to improve, denies any chest pain intermittent dry cough is present, room air oxygen is 96%, respiratory rate is stable and afebrile with stable hemodynamics Tracheobronchitis with acute COPD exacerbation Shortness of breath due to multifactorial processes including COPD back pain issues e Atrial fibrillation Hypertension hypertensive cardiovascular disease Postural hypertension and dizziness probably related to that History of COVID-19 infection Objective - Vital Signs Vital signs: Vital Signs Temp 98.1 F 04/03/21 07:00 Pulse 80 04/03/21 08:42 Resp 17 04/03/21 08:00 BP 168/109 04/03/21 07:00 Pulse Ox 96 04/03/21 07:00 Intake & Output 04/02/21 04/03/21 04/03/21 18:59 06:59 18:59 Intake Total 236 118 Balance 236 118 Intake: Oral 236 118 Other: Voiding Method Bedside Commode Bedside Commode # Voids 1 1 # Bowel Movements 0 - Exam - Constitutional General appearance: average body habitus, cooperative, disheveled - EENT Eyes: EOMI, PERRLA ENT: other Ears: bilateral: normal - Neck Carotids: bilateral: upstroke normal Thyroid: bilateral: normal size - Respiratory Respiratory: bilateral: CTA - Cardiovascular Rhythm: regular Heart sounds: normal: S1, S2 - Gastrointestinal General gastrointestinal: soft - Neurologic Neurologic: CNII-XII intact - Musculoskeletal Musculoskeletal: gait normal, generalized weakness - Psychiatric Psychiatric: A&O x's 3, appropriate affect, intact judgment & insight - Labs CBC & Chem 7: 03/31/21 12:18 04/01/21 15:48 Assessment and Plan Assessment: Tracheobronchitis with acute COPD exacerbation Shortness of breath due to multifactorial processes including COPD back pain Atrial fibrillation Hypertension hypertensive cardiovascular disease Postural hypertension and dizziness probably related to that History of COVID-19 infection Plan: From pulmonary standpoint continue supportive care, continue supplemental oxygen is needed deep breathing sense incentive spirometry, continue trial of bronchodilator antibiotics steroids for now, antibiotics and steroid continue his wishes to oral at time of discharge Time with Patient: Greater than 30
[2021-04-03 16:07] VITALS: BP 140/85; TEMP 98.5
[2021-04-03 16:13] VITALS: PULSE 88
[2021-04-03] MEDS: NON FORMULARY DRUG (Budesonide/Glycopyr/Formoterol [Breztri Aerosphere Inhaler] 10.7 GM Gm INHALATION SCH (16:15)
== END 2021-04-03 19:30 | disposition home or self-care (01) | DRG 191 ==
LOC: EC 11:13 → 6NMEDSUR 15:54 → OBSVTOIN 04-03 07:07
PROVIDERS: ADMIT Family Medicine; ATTEND Family Medicine
DX: J44.1 Chronic obstructive pulmonary disease with (acute) exacerbation (principal); M80.08XA Age-related osteoporosis with current pathological fracture, vertebra(e), initial encounter for fracture; J84.10 Pulmonary fibrosis, unspecified; Z20.822 Contact with and (suspected) exposure to COVID-19; M47.892 Other spondylosis, cervical region; I12.9 Hypertensive chronic kidney disease with stage 1 through stage 4 chronic kidney disease, or unspecified chronic kidney disease; Z88.1 Allergy status to other antibiotic agents; N18.30 Chronic kidney disease, stage 3 unspecified; I25.10 Atherosclerotic heart disease of native coronary artery without angina pectoris; D64.9 Anemia, unspecified; R29.6 Repeated falls; Z87.440 Personal history of urinary (tract) infections; G89.29 Other chronic pain; I71.4 Abdominal aortic aneurysm, without rupture; I49.1 Atrial premature depolarization; M50.30 Other cervical disc degeneration, unspecified cervical region; Z88.0 Allergy status to penicillin; I48.0 Paroxysmal atrial fibrillation; F03.90 Unspecified dementia, unspecified severity, without behavioral disturbance, psychotic disturbance, mood disturbance, and anxiety; G40.909 Epilepsy, unspecified, not intractable, without status epilepticus; D72.829 Elevated white blood cell count, unspecified; E78.5 Hyperlipidemia, unspecified; N18.9 Chronic kidney disease, unspecified; Z79.01 Long term (current) use of anticoagulants; Z79.899 Other long term (current) drug therapy; Z82.49 Family history of ischemic heart disease and other diseases of the circulatory system; Z86.16 Personal history of COVID-19; Z87.81 Personal history of (healed) traumatic fracture; Z90.710 Acquired absence of both cervix and uterus; Z96.642 Presence of left artificial hip joint; Z91.81 History of falling; Z87.442 Personal history of urinary calculi
CPT/HCPCS: 36415; 71046; 72040; 72100; 80053; 83605; 84132; 84484; 85025; 85379; 85610; 85730; 87502; 87635; 93005; 94640; 99285

== ENCOUNTER 2021-05-22 12:57 | Inpatient (IN) | payer MEDICARE ==
[2021-05-22] MEDS ORDERED: SODIUM CHLORIDE 0.9% 1,000 ML IV SCH (14:15)
[2021-05-22 14:37] LABS: Basophils # (A) 0.1 k/uL (0-0.2); Basophils % (A) 1 %; Eosinophils # (A) 0.3 k/uL (0-0.7); Eosinophils % (A) 4 %; HCT 38.4 % (34.0-46.0); HGB 11.9 gm/dL (11.4-16.0); Hypochromasia Slight; Lymphocytes % (A) 29 %; MCHC 31.1 g/dL (31.0-37.0); MCV 96.3 fL (80.0-100.0); Monocytes # (A) 0.4 k/uL (0-1.0); Monocytes % (A) 6 %; Neutrophils # (A) 4.2 k/uL (1.3-7.7); Neutrophils % (A) 60 %; Platelet Count 354 k/uL (150-450); RBC 3.98 m/uL (3.80-5.40); RDW 15.6 % (11.5-15.5)
--- NOTE | 2021-05-22 14:38 | XR ---
EXAMINATION TYPE: XR chest 2V DATE OF EXAM: 05/22/2021 COMPARISON: Chest x-ray March 31, 2021 HISTORY: Cough and pain. TECHNIQUE: Frontal and lateral views of the chest are obtained. FINDINGS: There is mild chronic parenchymal change without suspicious new focal air space opacity, p leural effusion, or pneumothorax seen. The cardiac silhouette size is stable and enlarged with hydro nephrotic and ectatic thoracic aorta redemonstrated. The osseous structures are demineralized. Unde rlying scoliosis again seen. Cholecystectomy clips noted on lateral view. IMPRESSION: Chronic changes and cardiomegaly without acute pulmonary process.
[2021-05-22 14:41] LABS: ALT 8 U/L (4-34); AST 25 U/L (14-36); African American GFR (CKD) 56 (>60 ml/min/1.73 sqM); Albumin 3.4 g/dL (3.5-5.0); Alkaline Phosphatase 117 U/L (38-126); Anion Gap 9 mmol/L; Blood Urea Nitrogen 10 mg/dL (7-17); Calcium 9.2 mg/dL (8.4-10.2); Carbon Dioxide 27 mmol/L (22-30); Chloride 102 mmol/L (98-107); Glucose 81 mg/dL (74-99); Lipase 430 U/L (23-300); Magnesium 2.2 mg/dL (1.6-2.3); Non-African American GFR(CKD) 49 (>60 ml/min/1.73 sqM); Potassium 2.9 mmol/L (3.5-5.1); Sodium 138 mmol/L (137-145); Total Bilirubin 1.3 mg/dL (0.2-1.3); Total Protein 6.2 g/dL (6.3-8.2)
[2021-05-22] MEDS ORDERED: POTASSIUM CHLORIDE ER 20 MEQ TAB.ER PO STA (15:10)
[2021-05-22] MEDS ORDERED: POTASSIUM CHLORIDE 20 MEQ in WATER FOR INJECTION 1 100ML.BAG IVPB STA (15:10)
[2021-05-22] MEDS ORDERED: NALOXONE 0.4 MG/ML 1 ML VIAL IV PRN (16:05)
--- NOTE | 2021-05-22 16:05 | ED ---
General Adult HPI - General Chief complaint: Chest Pain Stated complaint: SOB Time Seen by Provider: 05/22/21 13:20 Source: patient Mode of arrival: ambulatory Limitations: no limitations - History of Present Illness Initial comments: 75-year-old female past medical history of A. fib, asthma, COPD, dementia presents to the emergency department for several complaints. Daughter is at bedside and present history. States that her mother has advanced dementia. It is gone to the point where the patient does not eat, drink. She is refusing to take any of her medications which include her Midrin. Daughter states that she has not taken her medications in several days. She also has been having visual hallucinations and is having difficulty recognizing family members. She has had dark stools x 3 days. Today the patient began complaining of chest pain and shortness of breath. Daughter states that she has had difficulty taking care of her. She can no longer ambulate without assistance. She called and spoke with Dr. Nguyen who recommended that she come into the emergency department for further evaluation. No other alleviating, precipitating or modifying factors - Related Data Home Medications Medication Instructions Recorded Confirmed Montelukast Sodium [Singulair] 10 mg PO HS 10/01/19 05/22/21 Albuterol Sulfate [Ventolin HFA] 2 puff INHALATION RT-QID PRN 05/05/20 05/22/21 Omeprazole 20 mg PO DAILY 10/24/20 05/22/21 Amiodarone [Cordarone] 100 mg PO BID 11/05/20 05/22/21 Budesonide/Glycopyr/Formoterol 2 puff INHALATION RT-BID 02/10/21 05/22/21 [Breztri Aerosphere Inhaler] Furosemide [Lasix] 40 mg PO DAILY 02/10/21 05/22/21 Metoprolol Succinate (ER) [Toprol 25 mg PO BID 02/10/21 05/22/21 XL] busPIRone HCL [Buspar] 7.5 mg PO BID PRN 02/10/21 05/22/21 Megestrol [Megace] 40 mg PO BID 03/31/21 05/22/21 Promethazine HCl/Codeine 5 ml PO Q6H PRN 03/31/21 05/22/21 [Promethazine-Codeine Syrup] traZODone HCL [Desyrel] 50 mg PO HS PRN 03/31/21 05/22/21 Ferrous Sulfate [Feosol] 325 mg PO BID 05/22/21 05/22/21 HYDROcodone/APAP 10-325MG [[place] 1 tab PO TID 05/22/21 05/22/21 10-325] Midodrine HCl 5 mg PO TID 05/22/21 05/22/21 Nitroglycerin Sl Tabs [Nitrostat] 0.4 mg SL Q5M PRN 05/22/21 05/22/21 predniSONE 10 mg PO DAILY 05/22/21 05/22/21 Previous Rx's Medication Instructions Recorded Apixaban [Eliquis] 5 mg PO BID #60 tab 05/06/20 Atorvastatin [Lipitor] 20 mg PO HS 90 Days #90 tab 11/09/20 Potassium Chloride ER [K-Dur 20] 20 meq PO DAILY 90 Days #90 tablet 04/03/21 Allergies Allergy/AdvReac Type Severity Reaction Status Date / Time levofloxacin Allergy Anaphylaxis Verified 05/22/21 15:12 memantine [From Namenda] Allergy Rash/Hives Verified 05/22/21 15:12 lisinopril AdvReac Unknown Verified 05/22/21 15:12 Review of Systems ROS Statement: Those systems with pertinent positive or pertinent negative responses have been documented in the HPI. ROS Other: All systems not noted in ROS Statement are negative. Past Medical History Past Medical History: Atrial Fibrillation, Asthma, COPD, Dementia, Hyperlipidemia, Hypertension, Memory Impairment, Renal Disease, Seizure Disorder, Vascular Disorder Additional Past Medical History / Comment(s): Aortic aneurysm, daughter states past fluid around lung that was drained off, CKD staf III, nephrolithiasis, UTI/cystitis, one seizure in 2019, anemia, chronic back pain, bilateral ankle e liane, FALLS History of Any Multi-Drug Resistant Organisms: None Reported Past Surgical History: Back Surgery, Hysterectomy, Orthopedic Surgery, Tonsil lectomy, Tubal Ligation Additional Past Surgical History / Comment(s): D&C, EGD, colonoscopy, L hip hemiarthroplasty d/t fracure, R shoulder surgery d/t fracture-has hardware Past Anesthesia/Blood Transfusion Reactions: Motion Sickness Additional Past Anesthesia/Blood Transfusion Reaction / Comment(s): Pt has clausterphobia. Past Psychological History: Anxiety Smoking Status: Never smoker Past Alcohol Use History: None Reported Past Drug Use History: None Reported - Past Family History Mother Family Medical History: Hypertension Father Family Medical History: Coronary Artery Disease (CAD), Myocardial Infarction ([place]) Additional Family Medical History / Comment(s): Father of a [place] in his 70s. General Exam Limitations: no limitations General appearance: alert, in no apparent distress Head exam: Present: atraumatic, normocephalic, normal inspection Eye exam: Present: normal appearance, PERRL, EOMI. Absent: scleral icterus, conjunctival injection, periorbital swelling ENT exam: Present: normal exam, mucous membranes dry Neck exam: Present: normal inspection. Absent: tenderness, meningismus, lymphadenopathy Respiratory exam: Present: normal lung sounds bilaterally. Absent: respiratory distress, wheezes, rales, rhonchi, stridor Cardiovascular Exam: Present: regular rate, normal rhythm, normal heart sounds. Absent: systolic murmur, diastolic murmur, rubs, gallop, clicks GI/Abdominal exam: Present: soft, normal bowel sounds. Absent: distended, tende rness, guarding, rebound, rigid Extremities exam: Present: normal inspection, full ROM, normal capillary refill. Absent: tenderness, pedal edema, joint swelling, calf tenderness Back exam: Present: normal inspection Neurological exam: Present: alert, CN II-XII intact Psychiatric exam: Present: flat affect Skin exam: Present: warm, dry, intact, normal color. Absent: rash Course Vital Signs 05/22/21 05/22/21 05/23/21 13:12 20:31 00:59 Temperature 98.8 F 98.9 F Pulse Rate 116 H 79 64 Respiratory 20 16 16 Rate Blood Pressure 108/78 148/91 128/77 O2 Sat by Pulse 100 98 98 Oximetry 05/23/21 05/23/21 04:58 06:57 Temperature 97.7 F Pulse Rate 79 68 Respiratory 16 16 Rate Blood Pressure 109/67 125/69 O2 Sat by Pulse 98 98 Oximetry EKG Findings - EKG Comments: EKG Findings:: EKG demonstrates sinus rhythm with a rate of 75. AL interval 184. QRS 90. QTC of 460. No acute ST segment elevations or depressions. Medical Decision Making - Medical Decision Making Upon arrival the patient is placed into room 27. A thorough history and physical exam was performed. Laboratory studies are conducted. Chest x-rays performed. Laboratory studies are reviewed. Potassium low at 2.9. Chest x-ray demonstrates no acute process. IV was established and the patient was given potassium replacement. She is additionally started on normal saline at 130 mL per hour. Due to her failure to thrive I did recommend admission. Spoke with Dr. Rose who is covering Dr. Bain. Daughter agreed to the treatment plan and the patient is awaiting a bed on the floor - Lab Data Result diagrams: 05/28/21 06:24 05/28/21 06:24 Lab Results 05/22/21 05/22/21 05/22/21 Range/Units 14:16 14:16 14:16 WBC 7.0 (3.8-10.6) k/uL RBC 3.98 (3.80-5.40) m/uL Hgb 11.9 (11.4-16.0) gm/dL Hct 38.4 (34.0-46.0) % MCV 96.3 (80.0-100.0) fL MCH 30.0 (25.0-35.0) pg MCHC 31.1 (31.0-37.0) g/dL RDW 15.6 H (11.5-15.5) % Plt Count 354 (150-450) k/uL MPV 8.0 Neutrophils % 60 % Lymphocytes % 29 % Monocytes % 6 % Eosinophils % 4 % Basophils % 1 % Neutrophils # 4.2 (1.3-7.7) k/uL Lymphocytes # 2.0 (1.0-4.8) k/uL Monocytes # 0.4 (0-1.0) k/uL Eosinophils # 0.3 (0-0.7) k/uL Basophils # 0.1 (0-0.2) k/uL Hypochromasia Slight Sodium 138 (137-145) mmol/L Potassium 2.9 L (3.5-5.1) mmol/L Chloride 102 (98-107) mmol/L Carbon Dioxide 27 (22-30) mmol/L Anion Gap 9 mmol/L BUN 10 (7-17) mg/dL Creatinine 1.11 H (0.52-1.04) mg/dL Est GFR (CKD-EPI)AfAm 56 (>60 ml/min/1.73 sqM) Est GFR (CKD-EPI)NonAf 49 (>60 ml/min/1.73 sqM) Glucose 81 (74-99) mg/dL Plasma Lactic Acid Nolberto (0.7-2.0) mmol/L Calcium 9.2 (8.4-10.2) mg/dL Magnesium 2.2 (1.6-2.3) mg/dL Total Bilirubin 1.3 (0.2-1.3) mg/dL AST 25 (14-36) U/L ALT 8 (4-34) U/L Alkaline Phosphatase 117 (38-126) U/L Troponin I (0.000-0.034) ng/mL Total Protein 6.2 L (6.3-8.2) g/dL Albumin 3.4 L (3.5-5.0) g/dL Lipase 430 H (23-300) U/L TSH 1.060 (0.465-4.680) mIU/L Urine Color Yellow Urine Appearance Clear (Clear) Urine pH 6.0 (5.0-8.0) Ur Specific [place] 1.012 (1.001-1.035) Urine Protein Trace H (Negative) Urine Glucose (UA) Negative (Negative) Urine Ketones Negative (Negative) Urine Blood Trace H (Negative) Urine Nitrite Negative (Negative) Urine Bilirubin Negative (Negative) Urine Urobilinogen <2.0 (<2.0) mg/dL Ur Leukocyte Esterase Moderate H (Negative) Urine RBC 1 (0-5) /hpf Urine WBC 8 H (0-5) /hpf Ur Squamous Epith Cells 3 (0-4) /hpf Hyaline Casts 1 (0-2) /lpf Urine Mucus Few H (None) /hpf Stool Occult Blood (Negative) 05/22/21 05/22/21 05/22/21 Range/Units 14:16 14:16 14:16 WBC (3.8-10.6) k/uL RBC (3.80-5.40) m/uL Hgb (11.4-16.0) gm/dL Hct (34.0-46.0) % MCV (80.0-100.0) fL MCH (25.0-35.0) pg MCHC (31.0-37.0) g/dL RDW (11.5-15.5) % Plt Count (150-450) k/uL MPV Neutrophils % % Lymphocytes % % Monocytes % % Eosinophils % % Basophils % % Neutrophils # (1.3-7.7) k/uL Lymphocytes # (1.0-4.8) k/uL Monocytes # (0-1.0) k/uL Eosinophils # (0-0.7) k/uL Basophils # (0-0.2) k/uL Hypochromasia Sodium (137-145) mmol/L Potassium (3.5-5.1) mmol/L Chloride (98-107) mmol/L Carbon Dioxide (22-30) mmol/L Anion Gap mmol/L BUN (7-17) mg/dL Creatinine (0.52-1.04) mg/dL Est GFR (CKD-EPI)AfAm (>60 ml/min/1.73 sqM) Est GFR (CKD-EPI)NonAf (>60 ml/min/1.73 sqM) Glucose (74-99) mg/dL Plasma Lactic Acid Nolberto 1.4 (0.7-2.0) mmol/L Calcium (8.4-10.2) mg/dL Magnesium (1.6-2.3) mg/dL Total Bilirubin (0.2-1.3) mg/dL AST (14-36) U/L ALT (4-34) U/L Alkaline Phosphatase (38-126) U/L Troponin I <0.012 (0.000-0.034) ng/mL Total Protein (6.3-8.2) g/dL Albumin (3.5-5.0) g/dL Lipase (23-300) U/L TSH (0.465-4.680) mIU/L Urine Color Urine Appearance (Clear) Urine pH (5.0-8.0) Ur Specific [place] (1.001-1.035) Urine Protein (Negative) Urine Glucose (UA) (Negative) Urine Ketones (Negative) Urine Blood (Negative) Urine Nitrite (Negative) Urine Bilirubin (Negative) Urine Urobilinogen (<2.0) mg/dL Ur Leukocyte Esterase (Negative) Urine RBC (0-5) /hpf Urine WBC (0-5) /hpf Ur Squamous Epith Cells (0-4) /hpf Hyaline Casts (0-2) /lpf Urine Mucus (None) /hpf Stool Occult Blood Negative (Negative) Disposition Clinical Impression: Chest pain, Hypokalemia, Dehydration, Dementia, Decreased appetite Disposition: ADMITTED IP TO THIS [facility] Condition: Stable Is patient prescribed a controlled substance at d/c from ED?: No Decision to Admit Reason: Admit from EC Decision Date: 05/22/21 Decision Time: 16:05
[2021-05-22 17:58] LABS: Appearance,Urine Clear (Clear); Bilirubin,Urine Negative (Negative); Blood,Urine Trace (Negative); Color,Urine Yellow; Glucose,Urine (UA) Negative (Negative); Hyaline Casts,Urine 1 /lpf (0-2); Ketones,Urine Negative (Negative); Leukocyte Esterase,Urine Moderate (Negative); Mucus,Urine Few /hpf; Nitrite,Urine Negative (Negative); Protein,Urine Trace (Negative); RBC,Urine 1 /hpf (0-5); Specific Gravity,Urine 1.012 (1.001-1.035); Squamous Epithelial Cell,Urine 3 /hpf (0-4); Urobilinogen,Urine <2.0 mg/dL (<2.0); WBC,Urine 8 /hpf (0-5)
[2021-05-22] MEDS ORDERED: NITROGLYCERIN SL TABS 0.4 MG TAB SUBLINGUAL PRN (19:35)
[2021-05-22] MEDS ORDERED: busPIRone HCl 5 MG TAB PO PRN (19:35)
[2021-05-22] MEDS ORDERED: PROMETHAZINE HCL 6.25 MG/5 ML CUP PO PRN (19:35)
[2021-05-22] MEDS ORDERED: traZODone HCL 50 MG TAB PO PRN (19:35)
[2021-05-22] MEDS: MIDODRINE 5 MG TAB PO SCH (20:07)
[2021-05-22] MEDS ORDERED: ACETAMINOPHEN TAB 325 MG TAB PO PRN (20:16)
[2021-05-22] MEDS ORDERED: LACTULOSE 20 GM/30 ML CUP PO PRN (20:16)
[2021-05-22] MEDS: HYDROcodone/APAP 10-325MG 1 EACH TAB PO SCH (21:04)
[2021-05-22] MEDS: MELATONIN 3 MG TABLET PO PRN (21:05)
[2021-05-22] MEDS: APIXABAN 5 MG TAB PO SCH (21:06)
[2021-05-22] MEDS: ATORVASTATIN 20 MG TAB PO SCH ×2 (21:08→21:12)
[2021-05-22] MEDS: METOPROLOL SUCCINATE (ER) 25 MG TAB.ER.24H PO SCH (21:10)
[2021-05-22] MEDS: MONTELUKAST 10 MG TAB PO SCH (21:12)
[2021-05-22] MEDS: AMIODARONE 100 MG TAB PO SCH (21:41)
[2021-05-22] MEDS: NON FORMULARY DRUG (Budesonide/Glycopyr/Formoterol [Breztri Aerosphere Inhaler] 10.7 GM Gm INHALATION SCH (21:41)
[2021-05-22] MEDS: MEGESTROL 40 MG TAB PO SCH (21:41)
[2021-05-23] MEDS: LACTATED RINGERS 1,000 ML IV SCH ×3 (00:58→14:25)
[2021-05-23] MEDS: NON FORMULARY DRUG (Budesonide/Glycopyr/Formoterol [Breztri Aerosphere Inhaler] 10.7 GM Gm INHALATION SCH ×2 (08:42→20:02)
[2021-05-23 08:48] LABS: Basophils # (A) 0.06 X 10*3/uL (0.00-0.10); Eosinophils # (A) 0.22 X 10*3/uL (0.04-0.35); Eosinophils % (A) 3.5 %; HCT 29.3 % (37.2-46.3); HGB 9.2 g/dL (12.0-15.0); Immature Grans, Automated 0.3 %; Lymphocytes # (A) 1.83 X 10*3/uL (0.90-5.00); Lymphocytes % (A) 29.4 %; MCH 29.8 pg (27.0-32.0); MCHC 31.4 g/dL (32.0-37.0); MCV 94.8 fL (80.0-97.0); Mean Platelet Volume 10.8 fL (9.5-12.2); Monocytes # (A) 0.55 X 10*3/uL (0.20-1.00); Monocytes % (A) 8.8 %; NRBC Per 100 WBC 0 /100 WBCS (0.0-0.0); Neutrophils # (A) 3.55 X 10*3/uL (1.80-7.70); Platelet Count 275 X 10*3/uL (140-440); RBC 3.09 X 10*6/uL (4.10-5.20); RDW 15.9 % (11.5-14.5); WBC 6.23 X 10*3/uL (4.50-10.00)
[2021-05-23 09:00] LABS: African American GFR (CKD) 71.6 (60.0-200.0); Anion Gap 9.5 mmol/L (10.00-18.00); BUN/Creat Ratio 8.24 Ratio (12.00-20.00); Blood Urea Nitrogen 7.5 mg/dL (9.0-27.0); Calcium 8.3 mg/dL (8.7-10.3); Carbon Dioxide 24.1 mmol/L (20.0-27.5); Non-African American GFR(CKD) 61.8 (60.0-200.0); Potassium 3.2 mmol/L (3.5-5.5)
[2021-05-23] MEDS: APIXABAN 5 MG TAB PO SCH ×2 (09:39→20:03)
[2021-05-23] MEDS: MIDODRINE 5 MG TAB PO SCH ×3 (09:39→16:48)
[2021-05-23] MEDS: HYDROcodone/APAP 10-325MG 1 EACH TAB PO SCH ×3 (09:39→20:02)
[2021-05-23] MEDS: AMIODARONE 100 MG TAB PO SCH (09:39)
[2021-05-23] MEDS: PANTOPRAZOLE 40 MG TABLET PO SCH (09:39)
[2021-05-23] MEDS: MEGESTROL 40 MG TAB PO SCH ×2 (09:40→20:03)
[2021-05-23] MEDS: METOPROLOL SUCCINATE (ER) 25 MG TAB.ER.24H PO SCH ×2 (09:40→20:03)
[2021-05-23] MEDS: predniSONE 10 MG TAB PO SCH (09:40)
[2021-05-23] MEDS: PROCHLORPERAZINE 5 MG TAB PO PRN (18:16)
--- NOTE | 2021-05-23 19:58 | P.HPIM ---
History of Present Illness H&P Date: 05/22/21 Chief Complaint: Multiple complaints This is a pleasant 75-year-old patient who follows with Dr. Lalo Nguyen. Chronic stable medical conditions include atrial fibrillation, asthma, dementia, hypertension, hyperlipidemia, chronic kidney disease, aortic aneurysm, kidney stones, seizure in 2019, chronic back pain. And a baseline uses a walker. Does live with her daughterAnalisa was also POA. Patient is brought into the ER along with the Daughter. With multiple complain ts. Patient has significant dementia. Recently patient been eating and drinking. Also patient been taking refusing to take her medications for some time. Also some visual hallucinations. She also had some dock stools for 3 days. I'll get today she had complained of some chest pain or shortness of breath. Patient really cannot corroborate the history. She states she has no appetite. Patient eating more and more assistance. No fever no chills. Review of systems: GEN.: Decreased appetite EYES: None HEENT: Decreased hearing NECK: None RESPIRATORY: None CARDIOVASCULAR: None GASTROINTESTINAL: None GENITOURINARY: Incontinent MUSCULOSKELETAL: Joint pains LYMPHATICS: None HEMATOLOGICAL: None PSYCHIATRY: Forgetful NEUROLOGICAL: Was using a walker Past medical history to include: Atrial fibrillation, asthma, dementia, hypertension, hyperlipidemia, chronic kidney disease, 1 seizure in 2019, aortic aneurysm, kidney stones, anxiety Social history: Lives with her daughterAnalisa who is the D POA. Has been using a walker. No smoking or alcohol. Family history: Hypertension. Father of a heart attack Physical examination: VITAL SIGNS: 98.8, 116, 20, 108/78, 100% room air GENERAL: BMI 24, reclining in bed, awake, tired. EYES: Pupils equal. Conjunctiva pale. HEENT: External appearance of nose and ears normal, oral cavity grossly normal. NECK: JVD not raised; masses not palpable. HEART: First and second heart sounds are normal; no edema. LUNGS: Respiratory rate normal; clear to auscultation. ABDOMEN: Soft, nontender, liver spleen not palpable, no masses palpable. PSYCH: Can only answer simple questions l. MUSCULOSKELETAL:No Clubbing/cyanosis;muscles-grossly intact. Muscle muscle mass. Evidence of OA. NEUROLOGICAL: Cranial nerves grossly intact; no facial asymmetry, power and sensation grossly intact. LYMPHATICS: No lymph nodes palpable in the axilla and neck INVESTIGATIONS, reviewed in the clinical context: White count 17 hemoglobin 11.9 platelets 354 sodium 138 potassium 2.9 creatinine 1.11 Troponin I less than 0.012 TSH 1.0 UA positive for leukoesterase WBC EKG tracing personally reviewed by me-normal sinus rhythm. Nonspecific ST-T wave changes Chest x-ray film personally reviewed by me-cardiomegaly. Lung shea clear Assessment and plan: -Acute on chronic advancing medical debility. Multifactorial. Not taking medications. Not eating. Dehydration. Possible acute kidney injury. -Acute kidney injury, prerenal. Decreased oral intake. Patient also has Lasix prescribed at home. IV fluids -GERD Omeprazole 20 mg a -Moderate persistent asthma Singulair 10 mg daily at bedtime.Breztri inhaler -Chronic hypotension Midodrine 5 mg 3 times a day -Paroxysmal atrial fibrillation currently sinus rhythm Toprol-XL 25 mg twice a day. Amiodarone 100 mg twice a day. Eliquis 5 mg twice a day -Chronic anorexia Megace 40 mg twice a day -Primary osteoarthritis multiple joints [place] 10 one tablet by mouth 3 times a day -Hyperlipidemia Lipitor 20 mg daily at bedtime -D POA Malony IV fluids. Fall precautions. Resume home medications. Hold Lasix. Telemetry. PTOT. Soft diet. At this point patient not safe at home. Given poor oral intake and extreme frailty. Care was discussed with the daughter the bedside. Given the complexity and severity of patient's condition expect the patient to be in the hospital at least for 2 overnights Past Medical History Past Medical History: Atrial Fibrillation, Asthma, COPD, Dementia, Hyperlipidemia, Hypertension, Memory Impairment, Renal Disease, Seizure Disorder, Vascular Disorder Additional Past Medical History / Comment(s): Aortic aneurysm, daughter states past fluid around lung that was drained off, CKD staf III, nephrolithiasis, UTI/cystitis, one seizure in 2019, anemia, chronic back pain, bilateral ankle edema, FALLS History of Any Multi-Drug Resistant Organisms: None Reported Past Surgical History: Back Surgery, Hysterectomy, Orthopedic Surgery, Tonsi llectomy, Tubal Ligation Additional Past Surgical History / Comment(s): D&C, EGD, colonoscopy, L hip hemiarthroplasty d/t fracure, R shoulder surgery d/t fracture-has hardware Past Anesthesia/Blood Transfusion Reactions: Motion Sickness Additional Past Anesthesia/Blood Transfusion Reaction / Comment(s): Pt has clausterphobia. Past Psychological History: Anxiety Smoking Status: Never smoker Past Alcohol Use History: None Reported Past Drug Use History: None Reported - Past Family History Mother Family Medical History: Hypertension Father Family Medical History: Coronary Artery Disease (CAD), Myocardial Infarction ([place]) Additional Family Medical History / Comment(s): Father of a [place] in his 70s. Medications and Allergies Home Medications Medication Instructions Recorded Confirmed Type Montelukast Sodium [Singulair] 10 mg PO HS 10/01/19 05/22/21 History Albuterol Sulfate [Ventolin HFA] 2 puff INHALATION RT-QID PRN 05/05/20 05/22/21 History Apixaban [Eliquis] 5 mg PO BID #60 tab 05/06/20 05/22/21 Rx Omeprazole 20 mg PO DAILY 10/24/20 05/22/21 History Amiodarone [Cordarone] 100 mg PO BID 11/05/20 05/22/21 History Atorvastatin [Lipitor] 20 mg PO HS 90 Days #90 tab 11/09/20 05/22/21 Rx Budesonide/Glycopyr/Formoterol 2 puff INHALATION RT-BID 02/10/21 05/22/21 History [Breztri Aerosphere Inhaler] Furosemide [Lasix] 40 mg PO DAILY 02/10/21 05/22/21 History Metoprolol Succinate (ER) [Toprol 25 mg PO BID 02/10/21 05/22/21 History XL] busPIRone HCL [Buspar] 7.5 mg PO BID PRN 02/10/21 05/22/21 History Megestrol [Megace] 40 mg PO BID 03/31/21 05/22/21 History Promethazine HCl/Codeine 5 ml PO Q6H PRN 03/31/21 05/22/21 History [Promethazine-Codeine Syrup] traZODone HCL [Desyrel] 50 mg PO HS PRN 03/31/21 05/22/21 History Potassium Chloride ER [K-Dur 20] 20 meq PO DAILY 90 Days #90 tablet 04/03/21 05/22/21 Rx Ferrous Sulfate [Feosol] 325 mg PO BID 05/22/21 05/22/21 History HYDROcodone/APAP 10-325MG [[place] 1 tab PO TID 05/22/21 05/22/21 History 10-325] Midodrine HCl 5 mg PO TID 05/22/21 05/22/21 History Nitroglycerin Sl Tabs [Nitrostat] 0.4 mg SL Q5M PRN 05/22/21 05/22/21 History predniSONE 10 mg PO DAILY 05/22/21 05/22/21 History Allergies Allergy/AdvReac Type Severity Reaction Status Date / Time levofloxacin Allergy Anaphylaxis Verified 05/22/21 15:12 memantine [From Namenda] Allergy Rash/Hives Verified 05/22/21 15:12 lisinopril AdvReac Unknown Verified 05/22/21 15:12 Physical Exam Vitals: Vital Signs Temp Pulse Resp BP Pulse Ox 05/22/21 13:12 98.8 F 116 H 20 108/78 100 Intake and Output 05/22/21 05/22/21 05/22/21 06:59 14:59 22:59 Other: Weight 63.503 kg Results CBC & Chem 7: 05/23/21 05:14 05/23/21 05:14 Labs: Abnormal Lab Results - Last 24 Hours (Table) 05/22/21 05/22/21 05/22/21 Range/Units 14:16 14:16 14:16 RDW 15.6 H (11.5-15.5) % Potassium 2.9 L (3.5-5.1) mmol/L Creatinine 1.11 H (0.52-1.04) mg/dL Total Protein 6.2 L (6.3-8.2) g/dL Albumin 3.4 L (3.5-5.0) g/dL Lipase 430 H (23-300) U/L Urine Protein Trace H (Negative) Urine Blood Trace H (Negative) Ur Leukocyte Esterase Moderate H (Negative) Urine WBC 8 H (0-5) /hpf Urine Mucus Few H (None) /hpf
[2021-05-23] MEDS: MONTELUKAST 10 MG TAB PO SCH (20:03)
[2021-05-23] MEDS: ATORVASTATIN 20 MG TAB PO SCH (20:03)
--- NOTE | 2021-05-23 20:05 | P.PN ---
Progress Note - Text Progress Note Date: 05/23/21 Chief Complaint: Multiple complaints This is a pleasant 75-year-old patient who follows with Dr. Llao Nguyen. Chronic stable medical conditions include atrial fibrillation, asthma, dementia, hypertension, hyperlipidemia, chronic kidney disease, aortic aneurysm, kidney stones, seizure in 2019, chronic back pain. And a baseline uses a walker. Does live with her daughterMelony was also POA. Patient is brought into the ER along with the Daughter. With multiple com plaints. Patient has significant dementia. Recently patient been eating and drinking. Also patient been taking refusing to take her medications for some time. Also some visual hallucinations. She also had some dock stools for 3 days. I'll get today she had complained of some chest pain or shortness of breath. Patient really cannot corroborate the history. She states she has no appetite. Patient eating more and more assistance. No fever no chills. Admitted with advancing medical debility, acute kidney injury, dehydration, failing health. Started IV fluids. Stop Lasix. Soft diet. May 23: Patient eating a bit better today. IV fluids. Patient's 2 daughters at the bedside. Discuss care. Active Medications Acetaminophen (Acetaminophen Tab 325 Mg Tab) 650 mg PO Q6HR PRN PRN Reason: Mild Pain or Fever > 100.5 Hydrocodone Bitart/Acetaminophen (Hydrocodone/Apap 10-325mg 1 Each Tab) 1 each PO TID [facility] Last Admin: 05/23/21 16:48 Dose: 1 each Documented by: Albuterol Sulfate (Albuterol Nebulized 2.5 Mg/3 Ml) 2.5 mg INHALATION RT-QID PRN PRN Reason: Shortness Of Breath Amiodarone HCl (Amiodarone 100 Mg Tab) 100 mg PO DAILY [facility] Apixaban (Apixaban 5 Mg Tab) 5 mg PO BID [facility]; Protocol Last Admin: 05/23/21 09:39 Dose: 5 mg Documented by: Atorvastatin Calcium (Atorvastatin 20 Mg Tab) 20 mg PO HS [facility] Last Admin: 05/22/21 21:12 Dose: 20 mg Documented by: Buspirone HCl (Buspirone Hcl 5 Mg Tab) 7.5 mg PO BID PRN PRN Reason: Anxiety Lactated Ringer's (Lactated Ringers) 1,000 mls @ 100 mls/hr IV .Q10H [facility] Last Admin: 05/23/21 14:25 Dose: 125 mls/hr Documented by: Lactulose (Lactulose 20 Gm/30 Ml Cup) 20 gm PO DAILY PRN PRN Reason: Constipation Lorazepam (Lorazepam 0.5 Mg Tab) 0.5 mg PO Q6HR PRN PRN Reason: Anxiety Megestrol Acetate (Megestrol 40 Mg Tab) 40 mg PO BID [facility] Last Admin: 05/23/21 09:40 Dose: Not Given Documented by: Melatonin (Melatonin 3 Mg Tablet) 3 mg PO HS PRN PRN Reason: Insomnia Last Admin: 05/22/21 21:05 Dose: 3 mg Documented by: Metoprolol Succinate (Metoprolol Succinate (Er) 25 Mg Tab.Er.24h) 25 mg PO BID [facility] Last Admin: 05/23/21 09:40 Dose: 25 mg Documented by: Midodrine (Midodrine 5 Mg Tab) 5 mg PO AC-TID [facility] Last Admin: 05/23/21 16:48 Dose: 5 mg Documented by: Montelukast Sodium (Montelukast 10 Mg Tab) 10 mg PO HS [facility] Last Admin: 05/22/21 21:12 Dose: 10 mg Documented by: Naloxone HCl (Naloxone 0.4 Mg/Ml 1 Ml Vial) 0.2 mg IV Q2M PRN PRN Reason: Opioid Reversal Nitroglycerin (Nitroglycerin Sl Tabs 0.4 Mg Tab) 0.4 mg SUBLINGUAL Q5M PRN PRN Reason: Chest Pain Non-Formulary Medication (Budesonide/Glycopyr/Formoterol [Breztri Aerosphere Inhaler]) 2 puff INHALATION RT-BID [facility] Last Admin: 05/23/21 08:42 Dose: Not Given Documented by: Pantoprazole Sodium (Pantoprazole 40 Mg Tablet) 40 mg PO AC-BRKFST [facility] Last Admin: 05/23/21 09:39 Dose: 40 mg Documented by: Prednisone (Prednisone 10 Mg Tab) 10 mg PO DAILY [facility] Last Admin: 05/23/21 09:40 Dose: 10 mg Documented by: Prochlorperazine Maleate (Prochlorperazine 5 Mg Tab) 5 mg PO Q8HR PRN PRN Reason: Nausea And Vomiting Last Admin: 05/23/21 18:16 Dose: 5 mg Documented by: Promethazine HCl (Promethazine Hcl 6.25 Mg/5 Ml Cup) 6.25 mg PO Q6H PRN PRN Reason: Cough Trazodone HCl (Trazodone Hcl 50 Mg Tab) 50 mg PO HS PRN PRN Reason: Insomnia Last Admin: 05/22/21 21:11 Dose: 50 mg Documented by: Past medical history to include: Atrial fibrillation, asthma, dementia, hypertension, hyperlipidemia, chronic kidney disease, 1 seizure in 2019, aortic aneurysm, kidney stones, anxiety Social history: Lives with her daughterAnalisa who is the D POA. Has been using a walker. No smoking or alcohol. Family history: Hypertension. Father of a heart attack Physical examination: VITAL SIGNS: 97.7, 68, 16, 125 biceps 9, 98% room air GENERAL: Reclining in bed, eating, awake EYES: Pupils equal. Conjunctiva pale. HEENT: External appearance of nose and ears normal, oral cavity grossly normal. NECK: JVD not raised; masses not palpable. HEART: First and second heart sounds are normal; no edema. LUNGS: Respiratory rate normal; clear to auscultation. ABDOMEN: Soft, nontender, liver spleen not palpable, no masses palpable. PSYCH: Can only answer simple questions MUSCULOSKELETAL:No Clubbing/cyanosis;muscles-grossly intact. Decreased muscle mass. Evidence of OA. INVESTIGATIONS, reviewed in the clinical context: May 23: White count 6.2 hemoglobin 9.2 platelets 275 potassium 3.2 creatinine 0.9 White count 17 hemoglobin 11.9 platelets 354 sodium 138 potassium 2.9 creatinine 1.11 Troponin I less than 0.012 TSH 1.0 UA positive for leukoesterase WBC EKG tracing personally reviewed by me-normal sinus rhythm. Nonspecific ST-T wave changes Chest x-ray film personally reviewed by me-cardiomegaly. Lung shea clear Assessment and plan: -Acute on chronic advancing medical debility. Multifactorial. Not taking medications. Not eating. Dehydration. Possible acute kidney injury. -Acute kidney injury, prerenal. Decreased oral intake. Hold Lasix. IV fluids -Anemia of chronic disease Check iron studies. B12. Folate. -GERD Omeprazole 20 mg a -Moderate persistent asthma Singulair 10 mg daily at bedtime.Breztri inhaler -Chronic hypotension Midodrine 5 mg 3 times a day -Paroxysmal atrial fibrillation currently sinus rhythm Toprol-XL 25 mg twice a day. Amiodarone 100 mg twice a day. Eliquis 5 mg twice a day -Chronic anorexia Megace 40 mg twice a day -Primary osteoarthritis multiple joints [place] 10 one tablet by mouth 3 times a day -Hyperlipidemia Lipitor 20 mg daily at bedtime -Acute UTI with cystitis Keflex 500 mg 4 times a day -Hypokalemia Replace potassium -Mild protein calorie malnutrition Dietitian. Ensure supplement. -D POA Malony Keflex. Replace potassium. Continue IV fluids. Encourage oral intake. PTOT. Care was discussed with the patient's 2 daughters the bedside. Questions answered. Total time spent about 40 minutes with over 25 minutes of discussion.
[2021-05-23] MEDS: CEPHALEXIN 500 MG CAP PO SCH (22:36)
[2021-05-24] MEDS: LACTATED RINGERS 1,000 ML IV SCH ×4 (05:28→22:19)
[2021-05-24 06:06] LABS: African American GFR (CKD) 76 (>60 ml/min/1.73 sqM); Anion Gap 10 mmol/L; Blood Urea Nitrogen 11 mg/dL (7-17); Calcium 8.7 mg/dL (8.4-10.2); Carbon Dioxide 21 mmol/L (22-30); Chloride 106 mmol/L (98-107); Glucose 84 mg/dL (74-99); Non-African American GFR(CKD) 66 (>60 ml/min/1.73 sqM); Potassium 3.6 mmol/L (3.5-5.1); Sodium 137 mmol/L (137-145)
[2021-05-24] MEDS: NON FORMULARY DRUG (Budesonide/Glycopyr/Formoterol [Breztri Aerosphere Inhaler] 10.7 GM Gm INHALATION SCH ×2 (08:04→19:47)
[2021-05-24] MEDS: ALBUTEROL NEBULIZED 2.5 MG/3 ML INHALATION PRN (09:04)
[2021-05-24] MEDS: MEGESTROL 40 MG TAB PO SCH ×2 (09:05→22:38)
[2021-05-24] MEDS: METOPROLOL SUCCINATE (ER) 25 MG TAB.ER.24H PO SCH ×2 (09:05→22:19)
[2021-05-24] MEDS: MIDODRINE 5 MG TAB PO SCH ×3 (09:05→16:56)
[2021-05-24] MEDS: PANTOPRAZOLE 40 MG TABLET PO SCH (09:05)
[2021-05-24] MEDS: CEPHALEXIN 500 MG CAP PO SCH ×3 (09:05→22:20)
[2021-05-24] MEDS: predniSONE 10 MG TAB PO SCH (09:05)
[2021-05-24] MEDS: APIXABAN 5 MG TAB PO SCH ×2 (09:05→22:20)
[2021-05-24] MEDS: HYDROcodone/APAP 10-325MG 1 EACH TAB PO SCH ×3 (09:06→22:20)
[2021-05-24] MEDS: AMIODARONE 100 MG TAB PO SCH (09:06)
[2021-05-24 09:15] LABS: % Iron Saturation 9.75 (12.00-45.00); Iron 25 ug/dL (50-170); Total Iron Binding Capacity 260 ug/dL (228-460)
--- NOTE | 2021-05-24 11:14 | P.PN ---
Progress Note - Text Progress Note Date: 05/24/21 Chief Complaint: Multiple complaints This is a pleasant 75-year-old patient who follows with Dr. Lalo Nguyen. Chronic stable medical conditions include atrial fibrillation, asthma, dementia, hypertension, hyperlipidemia, chronic kidney disease, aortic aneurysm, kidney stones, seizure in 2019, chronic back pain. And a baseline uses a walker. Does live with her daughterMelony was also POA. Patient is brought into the ER along with the Daughter. With multiple com plaints. Patient has significant dementia. Recently patient been eating and drinking. Also patient been taking refusing to take her medications for some time. Also some visual hallucinations. She also had some dock stools for 3 days. I'll get today she had complained of some chest pain or shortness of breath. Patient really cannot corroborate the history. She states she has no appetite. Patient eating more and more assistance. No fever no chills. Admitted with advancing medical debility, acute kidney injury, dehydration, failing health. Started IV fluids. Stop Lasix. Soft diet. May 23: Patient eating a bit better today. IV fluids. Patient's 2 daughters at the bedside. Discuss care. May 24: Eating about 50%. Daughters is at the bedside. Patient otherwise comfortable. PTOT. manager fitness to follow Active Medications Acetaminophen (Acetaminophen Tab 325 Mg Tab) 650 mg PO Q6HR PRN PRN Reason: Mild Pain or Fever > 100.5 Hydrocodone Bitart/Acetaminophen (Hydrocodone/Apap 10-325mg 1 Each Tab) 1 each PO TID [facility] Last Admin: 05/24/21 09:06 Dose: 1 each Documented by: Albuterol Sulfate (Albuterol Nebulized 2.5 Mg/3 Ml) 2.5 mg INHALATION RT-QID PRN PRN Reason: Shortness Of Breath Last Admin: 05/24/21 09:04 Dose: 2.5 mg Documented by: Amiodarone HCl (Amiodarone 100 Mg Tab) 100 mg PO DAILY [facility] Last Admin: 05/24/21 09:06 Dose: 100 mg Documented by: Apixaban (Apixaban 5 Mg Tab) 5 mg PO BID [facility]; Protocol Last Admin: 05/24/21 09:05 Dose: 5 mg Documented by: Atorvastatin Calcium (Atorvastatin 20 Mg Tab) 20 mg PO [facility] Last Admin: 05/23/21 20:03 Dose: 20 mg Documented by: Buspirone HCl (Buspirone Hcl 5 Mg Tab) 7.5 mg PO BID PRN PRN Reason: Anxiety Cephalexin (Cephalexin 500 Mg Cap) 500 mg PO TID [facility]; Protocol Last Admin: 05/24/21 09:05 Dose: 500 mg Documented by: Lactated Ringer's (Lactated Ringers) 1,000 mls @ 100 mls/hr IV .Q10H [facility] Last Admin: 05/24/21 10:58 Dose: Not Given Documented by: Lactulose (Lactulose 20 Gm/30 Ml Cup) 20 gm PO DAILY PRN PRN Reason: Constipation Lorazepam (Lorazepam 0.5 Mg Tab) 0.5 mg PO Q6HR PRN PRN Reason: Anxiety Megestrol Acetate (Megestrol 40 Mg Tab) 40 mg PO BID [facility] Last Admin: 05/24/21 09:05 Dose: 40 mg Documented by: Melatonin (Melatonin 3 Mg Tablet) 3 mg PO HS PRN PRN Reason: Insomnia Last Admin: 05/22/21 21:05 Dose: 3 mg Documented by: Metoprolol Succinate (Metoprolol Succinate (Er) 25 Mg Tab.Er.24h) 25 mg PO BID [facility] Last Admin: 05/24/21 09:05 Dose: 25 mg Documented by: Midodrine (Midodrine 5 Mg Tab) 5 mg PO AC-TID [facility] Last Admin: 05/24/21 09:05 Dose: 5 mg Documented by: Montelukast Sodium (Montelukast 10 Mg Tab) 10 mg PO HS [facility] Last Admin: 05/23/21 20:03 Dose: 10 mg Documented by: Naloxone HCl (Naloxone 0.4 Mg/Ml 1 Ml Vial) 0.2 mg IV Q2M PRN PRN Reason: Opioid Reversal Nitroglycerin (Nitroglycerin Sl Tabs 0.4 Mg Tab) 0.4 mg SUBLINGUAL Q5M PRN PRN Reason: Chest Pain Non-Formulary Medication (Budesonide/Glycopyr/Formoterol [Breztri Aerosphere Inhaler]) 2 puff INHALATION RT-BID [facility] Last Admin: 05/24/21 08:04 Dose: Not Given Documented by: Pantoprazole Sodium (Pantoprazole 40 Mg Tablet) 40 mg PO AC-BRKFST [facility] Last Admin: 05/24/21 09:05 Dose: 40 mg Documented by: Prednisone (Prednisone 10 Mg Tab) 10 mg PO DAILY [facility] Last Admin: 05/24/21 09:05 Dose: 10 mg Documented by: Prochlorperazine Maleate (Prochlorperazine 5 Mg Tab) 5 mg PO Q8HR PRN PRN Reason: Nausea And Vomiting Last Admin: 05/23/21 18:16 Dose: 5 mg Documented by: Promethazine HCl (Promethazine Hcl 6.25 Mg/5 Ml Cup) 6.25 mg PO Q6H PRN PRN Reason: Cough Trazodone HCl (Trazodone Hcl 50 Mg Tab) 50 mg PO HS PRN PRN Reason: Insomnia Last Admin: 05/22/21 21:11 Dose: 50 mg Documented by: Past medical history to include: Atrial fibrillation, asthma, dementia, hypertension, hyperlipidemia, chronic kidney disease, 1 seizure in 2019, aortic aneurysm, kidney stones, anxiety Social history: Lives with her daughterAnalisa who is the D POA. Has been using a walker. No smoking or alcohol. Family history: Hypertension. Father of a heart attack Physical examination: VITAL SIGNS: 98.6, 66, 18, 03/04/1980, 98% room air GENERAL: Reclining in bed, comfortable EYES: Pupils equal. Conjunctiva pale. HEENT: External appearance of nose and ears normal, oral cavity grossly normal. NECK: JVD not raised; masses not palpable. HEART: First and second heart sounds are normal; no edema. LUNGS: Respiratory rate normal; clear to auscultation. ABDOMEN: Soft, nontender, liver spleen not palpable, no masses palpable. PSYCH: Can only answer simple questions MUSCULOSKELETAL:No Clubbing/cyanosis;muscles-grossly intact. Decreased muscle mass. Evidence of OA. INVESTIGATIONS, reviewed in the clinical context: May 24: Potassium 3.6 creatinine 0.87 I 25 TIBC 260% saturation 9.75. Vitamin B12 1650 May 23: White count 6.2 hemoglobin 9.2 platelets 275 potassium 3.2 creatinine 0.9 White count 17 hemoglobin 11.9 platelets 354 sodium 138 potassium 2.9 creatinine 1.11 Troponin I less than 0.012 TSH 1.0 UA positive for leukoesterase WBC EKG tracing personally reviewed by me-normal sinus rhythm. Nonspecific ST-T wave changes Chest x-ray film personally reviewed by me-cardiomegaly. Lung shea clear Assessment and plan: -Acute on chronic advancing medical debility. Multifactorial. At home [ Not t aking medications. Not eating. Dehydration. Possible acute kidney injury.] Doing better. PTOT input -Acute kidney injury, prerenal. Decreased oral intake. : Better Stop Lasix. Received IV fluids -Iron deficiency anemia IV Ferrlecit 2 doses -GERD Omeprazole 20 mg a -Moderate persistent asthma Singulair 10 mg daily at bedtime.Breztri inhaler -Chronic hypotension Midodrine 5 mg 3 times a day -Paroxysmal atrial fibrillation currently sinus rhythm Toprol-XL 25 mg twice a day. Amiodarone 100 mg twice a day. Eliquis 5 mg twice a day -Chronic anorexia Megace 40 mg twice a day -Primary osteoarthritis multiple joints [place] 10 one tablet by mouth 3 times a day -Hyperlipidemia Lipitor 20 mg daily at bedtime -Acute UTI with cystitis Keflex 500 mg 4 times a day -Hypokalemia corrected Replace potassium -Mild protein calorie malnutrition Dietitian. Ensure supplement. -D CAROLYN Malony Keflex. Encourage oral intake. PTOT. Care was discussed with the patient's 2 daughters the bedside. Questions answered. manager fitness to look into disposition.
[2021-05-24] MEDS: SODIUM FERRIC GLUCONAT-SUCROSE 125 MG in SODIUM CHLORIDE 0.9% 100 ML IVPB SCH (11:44)
[2021-05-24] MEDS: MELATONIN 3 MG TABLET PO PRN (22:19)
[2021-05-24] MEDS: ATORVASTATIN 20 MG TAB PO SCH (22:19)
[2021-05-24] MEDS: MONTELUKAST 10 MG TAB PO SCH (22:20)
[2021-05-25] MEDS: HYDROcodone/APAP 10-325MG 1 EACH TAB PO SCH ×3 (07:18→22:02)
[2021-05-25] MEDS: APIXABAN 5 MG TAB PO SCH ×2 (07:19→22:00)
[2021-05-25] MEDS: predniSONE 10 MG TAB PO SCH (07:20)
[2021-05-25] MEDS: MIDODRINE 5 MG TAB PO SCH ×3 (07:20→15:56)
[2021-05-25] MEDS: PANTOPRAZOLE 40 MG TABLET PO SCH (07:20)
[2021-05-25] MEDS: CEPHALEXIN 500 MG CAP PO SCH ×3 (07:20→22:01)
[2021-05-25] MEDS: METOPROLOL SUCCINATE (ER) 25 MG TAB.ER.24H PO SCH ×2 (07:20→22:01)
[2021-05-25] MEDS: AMIODARONE 100 MG TAB PO SCH (07:21)
[2021-05-25] MEDS: MEGESTROL 40 MG TAB PO SCH ×2 (07:21→22:03)
[2021-05-25] MEDS: NON FORMULARY DRUG (Budesonide/Glycopyr/Formoterol [Breztri Aerosphere Inhaler] 10.7 GM Gm INHALATION SCH ×2 (07:22→18:29)
[2021-05-25] MEDS: SODIUM FERRIC GLUCONAT-SUCROSE 125 MG in SODIUM CHLORIDE 0.9% 100 ML IVPB SCH (09:12)
[2021-05-25] MEDS: LACTATED RINGERS 1,000 ML IV SCH ×2 (11:26→23:27)
--- NOTE | 2021-05-25 14:02 | PN ---
PROGRESS NOTE This 75-year-old -[place] female has atrial fibrillation, asthma, dementia, chronic kidney disease, renal stones. She came in with apparently some visual hallucinations, maybe not eating and drinking as much. They gave her fluid. They stopped her Lasix, as she had acute kidney injury and some dehydration. Medications were reviewed. Labs were reviewed. Temperature 98, pulse 60s, respiratory rate 16 to 18, 98 on room air. Lungs show scattered wheeze x4. Heart: S1, S2. Abdomen is soft, nontender. Psych: She can only answer simple questions. Multifactorial. ASSESSMENT: 1. Acute on chronic dementia. 2. Dehydration. 3. Acute kidney injury. 4. Iron deficiency anemia. 5. Gastroesophageal reflux disease. 6. Moderate persistent asthma. 7. Paroxysm atrial fibrillation. 8. Chronic anorexia. 9. Osteoarthritis. 10.Dementia. 11.Acute urinary tract infection with cystitis, on Keflex. 12.Dyslipidemia. 13.Hyp kalemia. Will hold her Lasix at this point, encourage oral intake, possibly cut back on some of her medications she is on. Please see further orders. MMODL / IJN: [id number] /
[2021-05-25 14:37] VITALS: BMI 24.0
--- NOTE | 2021-05-25 17:09 | P.CNPUL ---
History of Present Illness Consult date: 05/25/21 Reason for consult: dyspnea, cough, COPD Chief complaint: Shortness of breath History of present illness: Patient is a 75-year-old female with prior medical history of COPD patient has one dementia and Alzheimer's disease not much data can be obtained from her, patient admitted into the hospital with the visual hallucination. Prior medical history significant for chronic atrial fibrillation on direct oral anticoagul ation, history of asthma COPD dementia. She lives with her daughter who is a caregiver and power of attorney at law, the last few days patient appetite has been poor not eating or drinking anything also refusing her medications. Lately she started having some visual hallucination and was not recognizing family members with dark stool for 3 days patient started having increasing shortness of breath and chest pain in addition patient has been weak and not able to ambulate patient daughter eventually has been advised to be seen and evaluated in emergency department labs were hemoglobin was 11.9 with normal WBC count came down to 9.2 repeat CBC has not been done, potassium has been 2.9 with replaceme nt improved to 3.6 BUN/creatinine also improved with rehydration, lactic acid within normal limit stool for occult blood negative, leukocyte is trace positive nitrite was negative, currently patient is being treated with oral Plaques and continuation of direct oral anticoagulant as needed bronchodilators Review of Systems ROS unobtainable: due to mental status All systems: negative Past Medical History Past Medical History: Atrial Fibrillation, Asthma, COPD, Dementia, Hyperlipidemia, Hypertension, Memory Impairment, Renal Disease, Seizure Disorder, Vascular Disorder Additional Past Medical History / Comment(s): Aortic aneurysm, daughter states past fluid around lung that was drained off, CKD staf III, nephrolithiasis, UTI/cystitis, one seizure in 2019, anemia, chronic back pain, bilateral ankle edema, FALLS History of Any Multi-Drug Resistant Organisms: None Reported Past Surgical History: Back Surgery, Hysterectomy, Orthopedic Surgery, Tonsillectomy, Tubal Ligation Additional Past Surgical History / Comment(s): D&C, EGD, colonoscopy, L hip hemiarthroplasty d/t fracure, R shoulder surgery d/t fracture-has hardware Past Anesthesia/Blood Transfusion Reactions: Motion Sickness Additional Past Anesthesia/Blood Transfusion Reaction / Comment(s): Pt has clausterphobia. Past Psychological History: Anxiety Smoking Status: Never smoker Past Alcohol Use History: None Reported Past Drug Use History: None Reported - Past Family History Mother Family Medical History: Hypertension Father Family Medical History: Coronary Artery Disease (CAD), Myocardial Infarction (AK) Additional Family Medical History / Comment(s): Father of a AK in his 70s. Medications and Allergies Home Medications Medication Instructions Recorded Confirmed Type Montelukast Sodium [Singulair] 10 mg PO HS 10/01/19 05/22/21 History Albuterol Sulfate [Ventolin HFA] 2 puff INHALATION RT-QID PRN 05/05/20 05/22/21 History Apixaban [Eliquis] 5 mg PO BID #60 tab 05/06/20 05/22/21 Rx Omeprazole 20 mg PO DAILY 10/24/20 05/22/21 History Amiodarone [Cordarone] 100 mg PO BID 11/05/20 05/22/21 History Atorvastatin [Lipitor] 20 mg PO HS 90 Days #90 tab 11/09/20 05/22/21 Rx Budesonide/Glycopyr/Formoterol 2 puff INHALATION RT-BID 02/10/21 05/22/21 History [Breztri Aerosphere Inhaler] Furosemide [Lasix] 40 mg PO DAILY 02/10/21 05/22/21 History Metoprolol Succinate (ER) [Toprol 25 mg PO BID 02/10/21 05/22/21 History XL] busPIRone HCL [Buspar] 7.5 mg PO BID PRN 02/10/21 05/22/21 History Megestrol [Megace] 40 mg PO BID 03/31/21 05/22/21 History Promethazine HCl/Codeine 5 ml PO Q6H PRN 03/31/21 05/22/21 History [Promethazine-Codeine Syrup] traZODone HCL [Desyrel] 50 mg PO HS PRN 03/31/21 05/22/21 History Potassium Chloride ER [K-Dur 20] 20 meq PO DAILY 90 Days #90 tablet 04/03/21 05/22/21 Rx Ferrous Sulfate [Feosol] 325 mg PO BID 05/22/21 05/22/21 History HYDROcodone/APAP 10-325MG [[place] 1 tab PO TID 05/22/21 05/22/21 History 10-325] Midodrine HCl 5 mg PO TID 05/22/21 05/22/21 History Nitroglycerin Sl Tabs [Nitrostat] 0.4 mg SL Q5M PRN 05/22/21 05/22/21 History predniSONE 10 mg PO DAILY 05/22/21 05/22/21 History Allergies Allergy/AdvReac Type Severity Reaction Status Date / Time levofloxacin Allergy Anaphylaxis Verified 05/22/21 15:12 memantine [From Namenda] Allergy Rash/Hives Verified 05/22/21 15:12 lisinopril AdvReac Unknown Verified 05/22/21 15:12 Physical Exam Vitals: Vital Signs Temp Pulse Resp BP Pulse Ox 05/25/21 14:00 98.3 F 69 16 114/69 98 05/25/21 10:53 110/75 05/25/21 08:00 98.1 F 65 16 165/101 98 05/25/21 07:30 65 16 05/25/21 01:24 98.1 F 67 21 114/76 96 05/24/21 20:00 97.9 F 62 18 134/88 96 Intake and Output 05/25/21 05/25/21 05/25/21 06:59 14:59 22:59 Intake Total 600 Balance 600 Intake: Oral 600 Other: Voiding Method Bedside Commode # Voids 2 Weight 63.503 kg - Constitutional General appearance: average body habitus, cooperative, disheveled - EENT Eyes: EOMI, PERRLA ENT: normal oropharynx Ears: bilateral: normal - Neck Neck: normal ROM Carotids: bilateral: upstroke normal Thyroid: bilateral: normal size - Respiratory Respiratory: bilateral: CTA - Cardiovascular Rhythm: regular Heart sounds: normal: S1, S2 - Gastrointestinal General gastrointestinal: normal bowel sounds, soft - Integumentary Integumentary: normal turgor - Neurologic Neurologic: CNII-XII intact - Musculoskeletal Musculoskeletal: gait normal, generalized weakness, strength equal bilaterally - Psychiatric Pleasantly confused Psychiatric: appropriate affect Results - Laboratory Findings CBC and BMP: 05/23/21 05:14 05/24/21 04:35 Abnormal lab findings: Abnormal Labs 05/22/21 05/22/21 05/22/21 14:16 14:16 14:16 RBC Hgb Hct MCHC RDW 15.6 H Potassium 2.9 L Carbon Dioxide Anion Gap BUN Creatinine 1.11 H BUN/Creatinine Ratio Glucose Calcium Iron % Saturation Transferrin Total Protein 6.2 L Albumin 3.4 L Lipase 430 H Vitamin B12 Urine Protein Trace H Urine Blood Trace H Ur Leukocyte Esterase Moderate H Urine WBC 8 H Urine Mucus Few H 05/23/21 05/23/21 05/24/21 05:14 05:14 04:35 RBC 3.09 L Hgb 9.2 L Hct 29.3 L MCHC 31.4 L RDW 15.9 H Potassium 3.2 L Carbon Dioxide 21 L Anion Gap 9.50 L BUN 7.5 L Creatinine BUN/Creatinine Ratio 8.24 L Glucose 64 L Calcium 8.3 L Iron 25 L % Saturation 9.75 L Transferrin 195.0 L Total Protein Albumin Lipase Vitamin B12 1650.0 H Urine Protein Urine Blood Ur Leukocyte Esterase Urine WBC Urine Mucus - Diagnostic Findings Chest x-ray: report reviewed, image reviewed (Chest x-ray shows chronic changes with cardiomegaly no acute pulmonary process identified) Assessment and Plan Assessment: Altered mental status Visual hallucinations Electrolyte imbalance with severe hypokalemia COPD stable not in exacerbation Chronic atrial fibrillation Chronic anemia Hypertension hypertensive cardiovascular disease Plan: Continue deep breathing exercise incentive spirometry Bronchodilators as needed Supportive care replace electrolytes as needed Increase activity as tolerated Anticoagulation and DVT prophylaxis with direct oral anticoagulant Further plan of care as per clinical response of the patient Time with Patient: Greater than 30
[2021-05-25] MEDS: MONTELUKAST 10 MG TAB PO SCH (22:00)
[2021-05-25] MEDS: ATORVASTATIN 20 MG TAB PO SCH (22:18)
[2021-05-25] MEDS: ALBUTEROL NEBULIZED 2.5 MG/3 ML INHALATION PRN (23:37)
[2021-05-26] MEDS: NON FORMULARY DRUG (Budesonide/Glycopyr/Formoterol [Breztri Aerosphere Inhaler] 10.7 GM Gm INHALATION SCH ×2 (07:36→19:57)
[2021-05-26] MEDS: MIDODRINE 5 MG TAB PO SCH ×3 (08:00→17:33)
[2021-05-26] MEDS: MEGESTROL 40 MG TAB PO SCH ×2 (08:00→22:04)
[2021-05-26] MEDS: APIXABAN 5 MG TAB PO SCH ×2 (08:00→22:04)
[2021-05-26] MEDS: HYDROcodone/APAP 10-325MG 1 EACH TAB PO SCH ×3 (08:00→22:05)
[2021-05-26] MEDS: PANTOPRAZOLE 40 MG TABLET PO SCH (08:00)
[2021-05-26] MEDS: METOPROLOL SUCCINATE (ER) 25 MG TAB.ER.24H PO SCH ×2 (08:02→22:05)
[2021-05-26] MEDS: AMIODARONE 100 MG TAB PO SCH (08:02)
[2021-05-26] MEDS: predniSONE 10 MG TAB PO SCH (08:02)
[2021-05-26] MEDS: CEPHALEXIN 500 MG CAP PO SCH ×3 (08:02→22:05)
[2021-05-26] MEDS: LORazepam 0.5 MG TAB PO PRN (10:44)
[2021-05-26] MEDS: LACTATED RINGERS 1,000 ML IV SCH ×2 (10:48→23:14)
--- NOTE | 2021-05-26 13:40 | CDI ---
Documentation Clarification Form Date: 05/26/2021 01:28:15 PM From: Becca Hill CCS, CCDS Admit Date: 05/22/2021 04:05:00 PM Patient Name: Lisbet Dobbins Visit Number: [id number] Discharge Date: ATTENTION: The Clinical Documentation Specialists (CDI) and [facility] Coding Staff appreciate your assistance in clarifying documentation. Please respond to the clarification below the line at the bottom and electronically sign. The CDI & [facility] Coding staff will review the response and follow-up if needed. Please note: Queries are made part of the Legal Health Record. If you have any questions, please contact the author of this message via ITS. Dr. Lalo Nguyen: Per the 05/25 Pulmonary Consult, the patient is pleasantly confused with altered mental status. Per the 05/22 H/P and subsequent Progress Notes 05/23 - 02/24: Also some visual hallucinations. Additional clarification regarding the patient's altered mental status with hallucinations. History/Risk Factors per the 05/25 H/P: Atrial Fibrillation, Asthma, Dementia, Hypertension, Hyperlipidemia, CKD, Aortic Aneurysm, Kidney Stones, Chronic Back Pain. Clinical Indicators: Presented to the ED on 05/22 with Chest Pain & SOB. Has Advanced Dementia and Failure to Thrive. Admit with Chest Pain, Hypokalemia, Dehydration, Dementia, Decreased Appetite. Per the 05/22 H/P: Acute on chronic advancing medical debility, Dehydration, Possible SRINIVASAN, Moderate Persistent Asthma, Chronic Hypotension, Paroxysmal Atrial Fibrillation, Chronic anorexia Per the 05/23 Attending Progress Note: Same with Acute UTI with Cystitis. 05/22 VS: T 98.8, P 116, R 20, BP 108/78, PO 100 RA, BMI: 24.0 05/22 LAB: K 2.9, Creatinine 1.11, total protein 6.2, Albumin 3.4, Lipase 430 05/22 UA: clear, Trace protein, Trace Blood, Moderate Esterase, WBC 8 05/22 Stool occult blood: negative 05/22 CXR: Chronic changes & cardiomegaly without acute pulmonary process. Treatment 05/22: Telemetry, Fall precautions, IV Na Cl 1,000 mls @ 130 mls/hr q7H, IV Kcl 20 meq 100 mls @ 50 mls/hr x1, po KDur 20 40 meq x1, INH Ventolin 2.5 mg QID/prn, po Desyrel 50 mg prn, IV Lactated Ringers 1,000 mls @ 100 mls/hr q10H, Please clarify the following: [ ] Metabolic Encephalopathy [ ] Toxic Encephalopathy [ ] Other, please specify [ ] Unable to determine (Template Last Revised: April 2020) MTDD
[2021-05-26] MEDS: SODIUM FERRIC GLUCONAT-SUCROSE 125 MG in SODIUM CHLORIDE 0.9% 100 ML IVPB SCH (13:59)
[2021-05-26] MEDS: ATORVASTATIN 20 MG TAB PO SCH (22:04)
[2021-05-26] MEDS: MONTELUKAST 10 MG TAB PO SCH (22:05)
[2021-05-27] MEDS: LACTATED RINGERS 1,000 ML IV SCH ×4 (02:08→23:01)
[2021-05-27] MEDS: predniSONE 10 MG TAB PO SCH (07:03)
[2021-05-27] MEDS: MIDODRINE 5 MG TAB PO SCH ×3 (07:03→16:26)
[2021-05-27] MEDS: PANTOPRAZOLE 40 MG TABLET PO SCH (07:03)
[2021-05-27] MEDS: METOPROLOL SUCCINATE (ER) 25 MG TAB.ER.24H PO SCH ×2 (07:03→22:09)
[2021-05-27] MEDS: HYDROcodone/APAP 10-325MG 1 EACH TAB PO SCH ×3 (07:03→22:08)
[2021-05-27] MEDS: CEPHALEXIN 500 MG CAP PO SCH ×3 (07:03→22:08)
[2021-05-27] MEDS: APIXABAN 5 MG TAB PO SCH ×2 (07:03→22:09)
[2021-05-27] MEDS: MEGESTROL 40 MG TAB PO SCH (07:04)
[2021-05-27] MEDS: NON FORMULARY DRUG (Budesonide/Glycopyr/Formoterol [Breztri Aerosphere Inhaler] 10.7 GM Gm INHALATION SCH ×3 (07:05→20:48)
[2021-05-27] MEDS: AMIODARONE 100 MG TAB PO SCH (07:05)
[2021-05-27] MEDS: SODIUM FERRIC GLUCONAT-SUCROSE 125 MG in SODIUM CHLORIDE 0.9% 100 ML IVPB SCH (08:14)
[2021-05-27] MEDS: PROCHLORPERAZINE 5 MG TAB PO PRN ×2 (09:31→17:05)
[2021-05-27] MEDS: LORazepam 0.5 MG TAB PO PRN (16:37)
--- NOTE | 2021-05-27 17:32 | P.PN ---
Subjective Progress Note Date: 05/26/21 Principal diagnosis: Altered mental status Visual hallucinations Electrolyte imbalance with severe hypokalemia COPD stable not in exacerbation Chronic atrial fibrillation Chronic anemia Hypertension hypertensive cardiovascular disease 05/26/2021, patient seen eval reexamined, remains afebrile and hemodynamically stable, blood pressure slightly better controlled now oxygen saturation remains 96% on room air, patient remains on bronchodilator tolerating well as well as direct anticoagulant remains on oral antibiotics, getting iron supplements as well Patient is a 75-year-old female with prior medical history of COPD patient has one dementia and Alzheimer's disease not much data can be obtained from her, patient admitted into the hospital with the visual hallucination. Prior medical history significant for chronic atrial fibrillation on direct oral anticoagulation, history of asthma COPD dementia. She lives with her daughter who is a caregiver and power of business attorney, the last few days patient appetite has been poor not eating or drinking anything also refusing her medications. Lately she started having some visual hallucination and was not recognizing family members with dark stool for 3 days patient started having increasing shortness of breath and chest pain in addition patient has been weak and not able to ambulate patient daughter eventually has been advised to be seen and evaluated in emergency department labs were hemoglobin was 11.9 with normal WBC count came down to 9.2 repeat CBC has not been done, potassium has been 2.9 with replacement improved to 3.6 BUN/creatinine also improved with rehydration, lactic acid within normal limit stool for occult blood negative, leukocyte is trace positive nitrite was negative, currently patient is being treated with oral Plaques and continuation of direct oral anticoagulant as needed bronchodilators Objective - Vital Signs Vital signs: Vital Signs Temp 98.6 F 05/26/21 08:00 Pulse 77 05/26/21 08:00 Resp 16 05/26/21 08:00 BP 152/99 05/26/21 08:00 Pulse Ox 96 05/26/21 08:00 Intake & Output 05/25/21 05/26/21 05/26/21 18:59 06:59 18:59 Intake Total 1000 Balance 1000 Weight 63.503 kg Intake: Intake, IV Titration 1000 Amount Lactated Ringers 1,000 ml 1000 @ 100 mls/hr IV .Q10H [facility] Rx#:[id number] Other: Voiding Method Bedside Commode Bedside Commode # Voids 2 1 # Bowel Movements 0 - Exam - Constitutional General appearance: average body habitus, cooperative, disheveled - EENT Eyes: EOMI, PERRLA ENT: normal oropharynx Ears: bilateral: normal - Neck Neck: normal ROM Carotids: bilateral: upstroke normal Thyroid: bilateral: normal size - Respiratory Respiratory: bilateral: CTA - Cardiovascular Rhythm: regular Heart sounds: normal: S1, S2 - Gastrointestinal General gastrointestinal: normal bowel sounds, soft - Integumentary Integumentary: normal turgor - Neurologic Neurologic: CNII-XII intact - Musculoskeletal Musculoskeletal: gait normal, generalized weakness, strength equal bilaterally - Psychiatric Pleasantly confused Psychiatric: appropriate affect - Labs CBC & Chem 7: 05/23/21 05:14 05/24/21 04:35 Assessment and Plan Assessment: Altered mental status Visual hallucinations Electrolyte imbalance with severe hypokalemia COPD stable not in exacerbation Chronic atrial fibrillation Chronic anemia Hypertension hypertensive cardiovascular disease Plan: Continue deep breathing exercise incentive spirometry Bronchodilators as needed Supportive care replace electrolytes as needed Increase activity as tolerated Anticoagulation and DVT prophylaxis with direct oral anticoagulant Further plan of care as per clinical response of the patient Time with Patient: Greater than 30
--- NOTE | 2021-05-27 17:34 | P.PN ---
Subjective Progress Note Date: 05/27/21 Principal diagnosis: Altered mental status Visual hallucinations Electrolyte imbalance with severe hypokalemia COPD stable not in exacerbation Chronic atrial fibrillation Chronic anemia Hypertension hypertensive cardiovascular disease 05/27/2021, patient seen daniella examined during the rounds, patient remains on bronchodilator as needed, oxygen saturation 96-98% room air, denies any chest pain shortness of breath denies any cough or sputum production respiratory status remains stable, will observe patient off of IV antibiotics is gently being rehydrated 05/26/2021, patient seen daniella reexamined, remains afebrile and hemodynamically stable, blood pressure slightly better controlled now oxygen saturation remains 96% on room air, patient remains on bronchodilator tolerating well as well as direct anticoagulant remains on oral antibiotics, getting iron supplements as well Patient is a 75-year-old female with prior medical history of COPD patient has one dementia and Alzheimer's disease not much data can be obtained from her, patient admitted into the hospital with the visual hallucination. Prior medical history significant for chronic atrial fibrillation on direct oral anticoagulation, history of asthma COPD dementia. She lives with her daughter who is a caregiver and power of content writer, the last few days patient appetite has been poor not eating or drinking anything also refusing her medications. Lately she started having some visual hallucination and was not recognizing family members with dark stool for 3 days patient started having increasing shortness of breath and chest pain in addition patient has been weak and not able to ambulate patient daughter eventually has been advised to be seen and evaluated in emergency department labs were hemoglobin was 11.9 with normal WBC count came down to 9.2 repeat CBC has not been done, potassium has been 2.9 with replacement improved to 3.6 BUN/creatinine also improved with rehydration, lactic acid within normal limit stool for occult blood negative, leukocyte is trace positive nitrite was negative, currently patient is being treated with oral Plaques and continuation of direct oral anticoagulant as needed bronchodilators Objective - Vital Signs Vital signs: Vital Signs Temp 98.8 F 05/27/21 17:29 Pulse 67 05/27/21 17:29 Resp 16 05/27/21 14:00 BP 172/104 05/27/21 17:29 Pulse Ox 98 05/27/21 17:29 Intake & Output 05/26/21 05/27/21 05/27/21 18:59 06:59 18:59 Intake Total 1950 Balance 1949 Intake: Intake, IV Titration 1200 Amount Lactated Ringers 1,000 ml 1200 @ 100 mls/hr IV .Q10H [facility] Rx#:[id number] Oral 750 Other: Voiding Method Bedside Commode Bedside Commode # Voids 5 0 # Bowel Movements 0 0 - Exam - Constitutional General appearance: average body habitus, cooperative, disheveled - EENT Eyes: EOMI, PERRLA ENT: normal oropharynx Ears: bilateral: normal - Neck Neck: normal ROM Carotids: bilateral: upstroke normal Thyroid: bilateral: normal size - Respiratory Respiratory: bilateral: CTA - Cardiovascular Rhythm: regular Heart sounds: normal: S1, S2 - Gastrointestinal General gastrointestinal: normal bowel sounds, soft - Integumentary Integumentary: normal turgor - Neurologic Neurologic: CNII-XII intact - Musculoskeletal Musculoskeletal: gait normal, generalized weakness, strength equal bilaterally - Psychiatric Pleasantly confused Psychiatric: appropriate affect - Labs CBC & Chem 7: 05/23/21 05:14 05/24/21 04:35 Assessment and Plan Assessment: Altered mental status Visual hallucinations Electrolyte imbalance with severe hypokalemia COPD stable not in exacerbation Chronic atrial fibrillation Chronic anemia Hypertension hypertensive cardiovascular disease Plan: Increase activity as tolerate Continue deep breathing exercise incentive spirometry Bronchodilators as needed Supportive care replace electrolytes as needed Increase activity as tolerated Anticoagulation and DVT prophylaxis with direct oral anticoagulant Further plan of care as per clinical response of the patient Time with Patient: Greater than 30
--- NOTE | 2021-05-27 18:24 | PN ---
PROGRESS NOTE 75-year-old female with severe dehydration and metabolic encephalopathy on top of her dementia. She feels better every day as her rehydration continues. Sats are 96 to 98. Denies any shortness of breath. She is getting rehydrated. Temp 98.8, pulse 60s, respiratory 16 to 18, blood pressure 170s/100, O2 98. Cardiovascular S1, S2. Lungs clear. Mild wheeze x4. GI soft. Integument: Turgor is normal now. Neurologic: Cranial nerves are intact. ASSESSMENT: 1. Altered mental status. 2. History of hallucinations. 3. Electrolyte imbalance. 4. Severe hypokalemia. 5. Chronic obstructive pulmonary disease. 6. Chronic atrial fibrillation. 7. Anemia. 8. Hypertensive cardiovascular disease. Continue current treatments. Follow up in next 24 to 48 hours. Prognosis guarded. Possible discharge home soon. We will get PT involved. MMRUSTY / MIRA: [id number] /
--- NOTE | 2021-05-27 18:28 | PN ---
PROGRESS NOTE ADDENDUM: Please add to medical record: Metabolic encephalopathy. MMODL / IJN: [id number] /
[2021-05-27] MEDS: MONTELUKAST 10 MG TAB PO SCH (22:09)
[2021-05-27] MEDS: ATORVASTATIN 20 MG TAB PO SCH (22:09)
[2021-05-27] MEDS: MEGESTROL 400 MG/10 ML CUP PO SCH (22:57)
[2021-05-28] MEDS: LORazepam 0.5 MG TAB PO PRN ×2 (00:07→19:13)
[2021-05-28] MEDS: MIDODRINE 5 MG TAB PO SCH ×3 (06:48→16:09)
[2021-05-28] MEDS: PANTOPRAZOLE 40 MG TABLET PO SCH (06:48)
[2021-05-28] MEDS: predniSONE 10 MG TAB PO SCH (06:48)
[2021-05-28] MEDS: APIXABAN 5 MG TAB PO SCH ×2 (06:49→21:45)
[2021-05-28] MEDS: MEGESTROL 400 MG/10 ML CUP PO SCH (06:49)
[2021-05-28] MEDS: CEPHALEXIN 500 MG CAP PO SCH ×3 (06:49→21:45)
[2021-05-28] MEDS: METOPROLOL SUCCINATE (ER) 25 MG TAB.ER.24H PO SCH ×2 (06:49→21:45)
[2021-05-28] MEDS: AMIODARONE 100 MG TAB PO SCH (06:50)
[2021-05-28] MEDS: LACTATED RINGERS 1,000 ML IV SCH ×2 (06:51→21:54)
[2021-05-28] MEDS: SODIUM FERRIC GLUCONAT-SUCROSE 125 MG in SODIUM CHLORIDE 0.9% 100 ML IVPB SCH (08:20)
[2021-05-28] MEDS: NON FORMULARY DRUG (Budesonide/Glycopyr/Formoterol [Breztri Aerosphere Inhaler] 10.7 GM Gm INHALATION SCH ×2 (08:46→21:09)
[2021-05-28] MEDS: HYDROcodone/APAP 10-325MG 1 EACH TAB PO SCH ×3 (09:44→21:45)
[2021-05-28 10:12] LABS: Basophils # (A) 0.05 X 10*3/uL (0.00-0.10); Basophils % (A) 0.6 %; Eosinophils # (A) 0.05 X 10*3/uL (0.04-0.35); Eosinophils % (A) 0.6 %; HCT 30.5 % (37.2-46.3); HGB 9.6 g/dL (12.0-15.0); Immature Grans, Automated 0.6 %; Lymphocytes # (A) 2.14 X 10*3/uL (0.90-5.00); Lymphocytes % (A) 23.6 %; MCH 29.8 pg (27.0-32.0); MCHC 31.5 g/dL (32.0-37.0); MCV 94.7 fL (80.0-97.0); Monocytes # (A) 0.82 X 10*3/uL (0.20-1.00); NRBC Per 100 WBC 0.7 /100 WBCS (0.0-0.0); Neutrophils # (A) 5.97 X 10*3/uL (1.80-7.70); Neutrophils % (A) 65.6 %; Platelet Count 232 X 10*3/uL (140-440); RBC 3.22 X 10*6/uL (4.10-5.20); RDW 16.8 % (11.5-14.5); WBC 9.08 X 10*3/uL (4.50-10.00)
[2021-05-28 10:13] LABS: Acanthocytes 2+
[2021-05-28 10:42] LABS: African American GFR (CKD) 72.5 (60.0-200.0); Albumin 3.1 g/dL (3.8-4.9); Albumin/Globulin Ratio 1.63 (1.60-3.17); Anion Gap 13.6 mmol/L (10.00-18.00); BUN/Creat Ratio 6.11 Ratio (12.00-20.00); Blood Urea Nitrogen 5.5 mg/dL (9.0-27.0); Calcium 8.9 mg/dL (8.7-10.3); Carbon Dioxide 20.4 mmol/L (20.0-27.5); Globulin 1.9 g/dL (1.6-3.3); Non-African American GFR(CKD) 62.5 (60.0-200.0); Potassium 3.7 mmol/L (3.5-5.5); Total Bilirubin 0.8 mg/dL (0.30-1.20)
--- NOTE | 2021-05-28 12:37 | XR ---
Skull series HISTORY: Trauma and pain 5 views of the skull There is no evident depressed skull fracture. Bone mineralization is within normal limits. Paranasal sinuses are well aerated. Patient is edentulous. Mastoid air cells are well aerated. IMPRESSION: No acute calvarial abnormality is evident. Consider head CT as indicated.
--- NOTE | 2021-05-28 13:02 | P.CNOR ---
History of Present Illness - [facility] Consult date: 05/28/21 Consult reason: back pain History of present illness: Patient is a 75-year-old female who was admitted to [facility] on 05/22/2021 with multiple medical issues, is a known history of severe dementia, is also concerns of dehydration and metabolic abnormality. Patient has been followed by internal medicine since her admission. Patient does live with her daughter who is the power of biology tutor, she was present today at bedside. She did aid in providing a accurate medical history on this patient. Currently the patient's and having chronic pain in the thoracic region for quite some time. She's been following with Dr. Mackenzie in the outpatient setting. I guess she did have some recent CT scans done at [facility], do not have access to those. There was discussion of a compression fracture in the region. Patient was prescribed a brace of some type, the patient's family states that the patient did not tolerate this and does not wear it. Patient does take [place] 10 mg/325 mg for her chronic pain. Patient's family noted that she does have history of a lumbar surgery that was done about 7 or 8 years ago in [place]. Patient also has a history of a left femoral neck fracture on 2019, she had undergone a hemiarthroplasty by Dr. Venkat [facility]. Patient's family notes that she has had multiple falls over the last few years. They state that her general activity level is very limited, she spends most of his time in her chair. She requires assistance with ADLs which they can provide. I was able to speak 11 with the patient today, she was able to answer most my questions accurately. She notes most of the discomfort in the mid back region. She denies any severe pain of the cervical and lumbar spine region. She denies any numbness or tingling involving the bilateral upper or lower extremity is. She does have chronic painful shoulders, she's never been evaluated by an orthopedic surgeon for this problem. When discussing with family, they note no obvious loss of bowel or bladder function. He states she's never complained of numbness or tingling in the genital or peroneal region. Review of Systems Constitutional: Reports as per HPI Past Medical History Past Medical History: Atrial Fibrillation, Asthma, COPD, Dementia, Hyperlipidemia, Hypertension, Memory Impairment, Renal Disease, Seizure Disorder, Vascular Disorder Additional Past Medical History / Comment(s): Aortic aneurysm, daughter states past fluid around lung that was drained off, CKD staf III, nephrolithiasis, UTI/cystitis, one seizure in 2019, anemia, chronic back pain, bilateral ankle edema, FALLS History of Any Multi-Drug Resistant Organisms: None Reported Past Surgical History: Back Surgery, Hysterectomy, Orthopedic Surgery, Tonsillectomy, Tubal Ligation Additional Past Surgical History / Comment(s): D&C, EGD, colonoscopy, L hip hemiarthroplasty d/t fracure, R shoulder surgery d/t fracture-has hardware Past Anesthesia/Blood Transfusion Reactions: Motion Sickness Additional Past Anesthesia/Blood Transfusion Reaction / Comm: Pt has clausterphobia. Past Psychological History: Anxiety Smoking Status: Never smoker Past Alcohol Use History: None Reported Past Drug Use History: None Reported - Past Family History Mother Family Medical History: Hypertension Father Family Medical History: Coronary Artery Disease (CAD), Myocardial Infarction ([place]) Additional Family Medical History / Comment(s): Father of a [place] in his 70s. Medications and Allergies Home Medications Medication Instructions Recorded Confirmed Type Montelukast Sodium [Singulair] 10 mg PO HS 10/01/19 05/22/21 History Albuterol Sulfate [Ventolin HFA] 2 puff INHALATION RT-QID PRN 05/05/20 05/22/21 History Apixaban [Eliquis] 5 mg PO BID #60 tab 05/06/20 05/22/21 Rx Omeprazole 20 mg PO DAILY 10/24/20 05/22/21 History Amiodarone [Cordarone] 100 mg PO BID 11/05/20 05/22/21 History Atorvastatin [Lipitor] 20 mg PO HS 90 Days #90 tab 11/09/20 05/22/21 Rx Budesonide/Glycopyr/Formoterol 2 puff INHALATION RT-BID 02/10/21 05/22/21 History [Breztri Aerosphere Inhaler] Furosemide [Lasix] 40 mg PO DAILY 02/10/21 05/22/21 History Metoprolol Succinate (ER) [Toprol 25 mg PO BID 02/10/21 05/22/21 History XL] busPIRone HCL [Buspar] 7.5 mg PO BID PRN 02/10/21 05/22/21 History Megestrol [Megace] 40 mg PO BID 03/31/21 05/22/21 History Promethazine HCl/Codeine 5 ml PO Q6H PRN 03/31/21 05/22/21 History [Promethazine-Codeine Syrup] traZODone HCL [Desyrel] 50 mg PO HS PRN 03/31/21 05/22/21 History Potassium Chloride ER [K-Dur 20] 20 meq PO DAILY 90 Days #90 tablet 04/03/21 05/22/21 Rx Ferrous Sulfate [Feosol] 325 mg PO BID 05/22/21 05/22/21 History HYDROcodone/APAP 10-325MG [[place] 1 tab PO TID 05/22/21 05/22/21 History 10-325] Midodrine HCl 5 mg PO TID 05/22/21 05/22/21 History Nitroglycerin Sl Tabs [Nitrostat] 0.4 mg SL Q5M PRN 05/22/21 05/22/21 History predniSONE 10 mg PO DAILY 05/22/21 05/22/21 History Allergies Allergy/AdvReac Type Severity Reaction Status Date / Time levofloxacin Allergy Anaphylaxis Verified 05/22/21 15:12 memantine [From Namenda] Allergy Rash/Hives Verified 05/22/21 15:12 lisinopril AdvReac Unknown Verified 05/22/21 15:12 Physical Examination Gen: AOx3, NAD VSS stable at this time Integument: No obvious open lesions or sores are visualized throughout the cervical, thoracic or lumbar spine. There is a well-healed incision on the lateral /posterior aspect of the left thigh. Palpation: Patient is nontender with palpation to the midline paraspinal region of the cervical and lumbar spine, she does have some tenderness with palpation to the midline paraspinal region of the thoracic spine. ROM: Full range of motion in the bilateral upper extremity splint wrist extension, wrist flexion, elbow extension, elbow flexion. She does have limited range of motion with shoulder elevation shoulder abduction Full range of motion as noted in the bilateral lower extremities with hip flexion, knee extension, knee flexion, plantar flexion, dorsiflexion, EHL, FHL Sensory Exam: Senory exam to light touch is intact C5-T1 Senosry exam to light touch is intact L2-S1 Motor: 45 strength appreciated in the bilateral upper extremities with wrist extension, wrist flexion, elbow extension, elbow flexion, 3+5 strength appreciated in the bilateral upper extremities with shoulder elevation and shoulder abduction 45 strength is appreciated in the bilateral lower extremities with hip flexion, knee extension, knee flexion, plantar flexion, dorsiflexion, EHL, FHL Reflexes: 2/4 in all UE and LE Negative Demetria's bilaterally Negative clonus bilaterally Special Test: Logroll maneuver of the left and right lower extremity is Results - Labs Labs: Abnormal Lab Results - Last 24 Hours (Table) 05/28/21 05/28/21 Range/Units 06:24 06:24 RBC 3.22 L (4.10-5.20) X 10*6/uL Hgb 9.6 L (12.0-15.0) g/dL Hct 30.5 L (37.2-46.3) % MCHC 31.5 L (32.0-37.0) g/dL RDW 16.8 H (11.5-14.5) % Absolute Nucleated RBC 0.06 H (0.00-0.00) X 10*3/uL Immature Gran # 0.05 H (0.00-0.04) X 10*3/uL NRBC/100 WBC Diff 0.7 H (0.0-0.0) /100 WBCS BUN 5.5 L (9.0-27.0) mg/dL BUN/Creatinine Ratio 6.11 L (12.00-20.00) Ratio ALT 7 L (8-44) U/L Total Protein 5.0 L (6.2-8.2) g/dL Albumin 3.1 L (3.8-4.9) g/dL H & H 05/22/21 05/23/21 05/28/21 Range/Units 14:16 05:14 06:24 Hgb 11.9 9.2 L 9.6 L (11.4-16.0) gm/dL Hct 38.4 29.3 L 30.5 L (34.0-46.0) % Result Diagrams: 05/28/21 06:24 05/28/21 06:24 Assessment and Plan Assessment: Thoracic back pain Lumbar back pain History of previous lumbar surgery History of left hemiarthroplasty Dementia Multiple medical comorbidities Plan: I was able to discuss the case with my attending Dr. Wasserman. CT scans of the thoracic and lumbar spine without contrast will be ordered for earlier evaluation Pain control, recommend restarting patient's normally prescribe narcotic pain medication GI and DVT prophylaxis per primary medical team Recommend weight-bear as tolerated with walker and use of an program assistant Other medical technologist chemistry and recommendations Further recommendations to follow after reviewing imaging studies Time with Patient: Less than 30
--- NOTE | 2021-05-28 13:48 | CT ---
EXAMINATION TYPE: CT thor lumbar spine wo con DATE OF EXAM: 05/28/2021 COMPARISON: CT dated 11/07/2020 and x-ray dated 04/01/2021 HISTORY: Back pain, fall CT DLP: 1082.2 mGycm Automated exposure control for dose reduction was used. TECHNIQUE: Multiplanar CT scan of the thoracic and lumbar spine without IV contrast menstruation. FINDINGS: Diffuse osteopenia. T7 vertebra plana with complete collapse and sclerotic changes, not appreciated i n January 2021 x-ray. There is minimal retropulsion of the posterior inferior aspect of the vertebra l body into the spinal canal for about 2 mm causing mild (likely insignificant) central spinal canal stenosis. Bilateral neuroforaminal stenosis is seen at that level. Minimal upper endplate depression of T4 vertebral body, stable since November 2020 CT scan. T12 upper endplate depression with mild sclerotic changes without significant retropulsion into the spinal rissa l, stable since November 2020 CT scan. Upper endplate depression of L4 vertebral body with sclerotic c hanges and tiny fracture lines, somehow appreciated in March 2021 x-ray. No significant retropulsi on into the spinal canal. Previous transpedicular fixation of L5 and lumbarized S1 using 2 rods and 4 screws with no evidence o f prosthesis break or displacement. Grade 1 anterolisthesis of L5 over S1. L5-S1 disc prosthesis is a lso noted. Upper endplate depression of L5, likely chronic, also appreciated on the previous x-ray. N o other definite fracture line identified. No other significant thoracic spinal canal stenosis or kiersten roforaminal stenosis. At L2-3 level: No significant central spinal canal stenosis or neuroforaminal stenosis. At L3-4 level: Diffuse posterior disc bulge with prominent posterior epidural fat, causing mild centr al spinal canal stenosis without significant neuroforaminal stenosis. At L4-5 level: Diffuse posterior disc bulge with ligamentum flavum hypertrophy, causing moderate cent ral spinal canal stenosis without significant neuroforaminal stenosis. At L5-S1 level: Diffuse posterior disc bulge with ligamentum flavum hypertrophy, causing no significa nt central spinal canal stenosis or significant neuroforaminal stenosis. Artifacts are seen at that l evel. Scattered arterial atherosclerotic calcifications. Tortuous descending thoracic aorta. Ascending aort ic aneurysm measuring up to 4.2 cm. Cardiomegaly. Small bilateral pleural effusions. Coronary arteria l calcifications. Previous cholecystectomy. Scattered colonic diverticulosis. Small amount of fluid i s seen in the pelvis. Left hip arthroplasty, not completely included in the scan. Bilateral basal pul monary atelectasis. IMPRESSION: T7 vertebra plana demonstrating complete collapse and sclerotic changes as described above, not appre ciated on January 2021 x-ray, please correlate clinically. Suspected bilateral neuroforaminal stenos is at T7-8 level with minimal spinal canal stenosis. Other multilevel vertebral body collapse as detailed above, appreciated previously. Diffuse osteopeni a. Other degenerative changes, postsurgical changes, multilevel DDD and incidental findings as descri bed above.
--- NOTE | 2021-05-28 17:01 | P.PN ---
Subjective Progress Note Date: 05/28/21 Principal diagnosis: Altered mental status Visual hallucinations Electrolyte imbalance with severe hypokalemia COPD stable not in exacerbation Chronic atrial fibrillation Chronic anemia Hypertension hypertensive cardiovascular disease 05/28/2021, patient seen eval reexamined during the rounds labs reviewed medications reviewed, patient fell down today has diffuse aches and pains BUT he has evaluated the patient CT of the T7 vertebra noted to have complete collapse and the sclerotic changes bilateral neuroforaminal stenosis and T7-T8 level with spinal canal stenosis 05/27/2021, patient seen eval examined during the rounds, patient remains on bronchodilator as needed, oxygen saturation 96-98% room air, denies any chest pain shortness of breath denies any cough or sputum production respiratory status remains stable, will observe patient off of IV antibiotics is gently being rehydrated 05/26/2021, patient seen eval reexamined, remains afebrile and hemodynamically stable, blood pressure slightly better controlled now oxygen saturation remains 96% on room air, patient remains on bronchodilator tolerating well as well as direct anticoagulant remains on oral antibiotics, getting iron supplements as well Patient is a 75-year-old female with prior medical history of COPD patient has one dementia and Alzheimer's disease not much data can be obtained from her, patient admitted into the hospital with the visual hallucination. Prior medical history significant for chronic atrial fibrillation on direct oral anticoagulation, history of asthma COPD dementia. She lives with her daughter who is a caregiver and power of monkey breeder, the last few days patient appetite has been poor not eating or drinking anything also refusing her medications. Lately she started having some visual hallucination and was not recognizing family members with dark stool for 3 days patient started having increasing shortness of breath and chest pain in addition patient has been weak and not able to ambulate patient daughter eventually has been advised to be seen and evaluated in emergency department labs were hemoglobin was 11.9 with normal WBC count came down to 9.2 repeat CBC has not been done, potassium has been 2.9 with replacement improved to 3.6 BUN/creatinine also improved with rehydration, lactic acid within normal limit stool for occult blood negative, leukocyte is trace positive nitrite was negative, currently patient is being treated with oral Plaques and continuation of direct oral anticoagulant as needed bronchodilators Objective - Vital Signs Vital signs: Vital Signs Temp 97.5 F L 05/28/21 14:19 Pulse 68 05/28/21 14:19 Resp 20 05/28/21 14:19 BP 163/93 05/28/21 14:19 Pulse Ox 100 05/28/21 14:19 Intake & Output 05/27/21 05/28/21 05/28/21 18:59 06:59 18:59 Intake Total 360 Output Total 400 Balance -400 360 Weight 63.503 kg Intake: Oral 360 Output: Urine 400 Other: Voiding Method Bedside Commode Bedside Commode Bedside Commode # Voids 0 1 6 # Bowel Movements 1 - Exam - Constitutional General appearance: average body habitus, cooperative, disheveled - EENT Eyes: EOMI, PERRLA ENT: normal oropharynx Ears: bilateral: normal - Neck Neck: normal ROM Carotids: bilateral: upstroke normal Thyroid: bilateral: normal size - Respiratory Respiratory: bilateral: CTA - Cardiovascular Rhythm: regular Heart sounds: normal: S1, S2 - Gastrointestinal General gastrointestinal: normal bowel sounds, soft - Integumentary Integumentary: normal turgor - Neurologic Neurologic: CNII-XII intact - Musculoskeletal Musculoskeletal: gait normal, generalized weakness, strength equal bilaterally - Psychiatric Pleasantly confused Psychiatric: appropriate affect - Labs CBC & Chem 7: 05/28/21 06:24 05/28/21 06:24 Labs: Abnormal Lab Results - Last 24 Hours (Table) 05/28/21 05/28/21 Range/Units 06:24 06:24 RBC 3.22 L (4.10-5.20) X 10*6/uL Hgb 9.6 L (12.0-15.0) g/dL Hct 30.5 L (37.2-46.3) % MCHC 31.5 L (32.0-37.0) g/dL RDW 16.8 H (11.5-14.5) % Absolute Nucleated RBC 0.06 H (0.00-0.00) X 10*3/uL Immature Gran # 0.05 H (0.00-0.04) X 10*3/uL NRBC/100 WBC Diff 0.7 H (0.0-0.0) /100 WBCS BUN 5.5 L (9.0-27.0) mg/dL BUN/Creatinine Ratio 6.11 L (12.00-20.00) Ratio ALT 7 L (8-44) U/L Total Protein 5.0 L (6.2-8.2) g/dL Albumin 3.1 L (3.8-4.9) g/dL Assessment and Plan Assessment: Altered mental status 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
[2021-05-28] MEDS: ATORVASTATIN 20 MG TAB PO SCH (21:44)
[2021-05-28] MEDS: MONTELUKAST 10 MG TAB PO SCH (21:44)
[2021-05-29] MEDS: LACTATED RINGERS 1,000 ML IV SCH ×2 (02:02→15:57)
[2021-05-29] MEDS: LORazepam 0.5 MG TAB PO PRN (04:13)
[2021-05-29] MEDS: NON FORMULARY DRUG (Budesonide/Glycopyr/Formoterol [Breztri Aerosphere Inhaler] 10.7 GM Gm INHALATION SCH ×2 (07:10→21:07)
[2021-05-29] MEDS: HYDROcodone/APAP 10-325MG 1 EACH TAB PO SCH ×3 (07:13→22:45)
[2021-05-29] MEDS: APIXABAN 5 MG TAB PO SCH ×2 (09:50→22:45)
[2021-05-29] MEDS: METOPROLOL SUCCINATE (ER) 25 MG TAB.ER.24H PO SCH ×2 (09:50→22:45)
[2021-05-29] MEDS: predniSONE 10 MG TAB PO SCH (09:50)
[2021-05-29] MEDS: PANTOPRAZOLE 40 MG TABLET PO SCH (09:50)
[2021-05-29] MEDS: AMIODARONE 100 MG TAB PO SCH (09:50)
[2021-05-29] MEDS: CEPHALEXIN 500 MG CAP PO SCH ×3 (09:50→22:45)
[2021-05-29] MEDS: MEGESTROL 400 MG/10 ML CUP PO SCH (09:50)
--- NOTE | 2021-05-29 13:25 | P.CNNES ---
History of Present Illness Consult date: 05/29/21 Requesting physician: Jovanny Mcbride Reason for Consult: CT results compressed nerve History of Present Illness: This is a 75-year-old woman with medical history of advanced dementia, chronic hypotension, hypertension, atrial fibrillation on eliquis, hyperlipidemia, chronic kidney disease, seizure, aortic aneurysm who presented emergency department because a different complaints of refusing to take her medication, and visual hallucination, dark stool and chest pain and shortness of breath. Neurology is consulted for pinched nerve seen on the CT. Some of the history is obtained from patient's daughter who is at bedside. The patient denies of any headache, any focal weakness. As of the patient back pain and fall yesterday the patient had a CT thoracic and lumbar spine in our facility which is reported as T7 and vertebral plane not demonstrating complete collapse and sclerotic changes which is not appreciated on January 2021 x-ray. Suspect bilateral neuroforaminal stenosis at T7-T8 level with minimal spinal canal stenosis. Other multilevel vertebral body collapse. Diffuse osteopenia. Body report as mentioned the patient has moderate central canal spinal stenosis without significant neuroforaminal stenosis. Orthopedic team is on board. No headache trauma from fall. Other workup in the hospital is her most recent hemoglobin is 9.6. TSH is 1.06. AST is 25 and ALTs 8. Urine analysis is possible suggestive of urinary tract infection. Review of Systems Review of system: The 12 point system was reviewed and apparent positive and negative per HPI. Past Medical History Past Medical History: Atrial Fibrillation, Asthma, COPD, Dementia, Hyperlipidemia, Hypertension, Memory Impairment, Renal Disease, Seizure Dis order, Vascular Disorder Additional Past Medical History / Comment(s): Aortic aneurysm, daughter states past fluid around lung that was drained off, CKD staf III, nephrolithiasis, UTI/cystitis, one seizure in 2019, anemia, chronic back pain, bilateral ankle edema, FALLS History of Any Multi-Drug Resistant Organisms: None Reported Past Surgical History: Back Surgery, Hysterectomy, Orthopedic Surgery, Tonsillectomy, Tubal Ligation Additional Past Surgical History / Comment(s): D&C, EGD, colonoscopy, L hip hemiarthroplasty d/t fracure, R shoulder surgery d/t fracture-has hardware Past Anesthesia/Blood Transfusion Reactions: Motion Sickness Additional Past Anesthesia/Blood Transfusion Reaction / Comment(s): Pt has clausterphobia. Past Psychological History: Anxiety Smoking Status: Never smoker Past Alcohol Use History: None Reported Past Drug Use History: None Reported - Past Family History Mother Family Medical History: Hypertension Father Family Medical History: Coronary Artery Disease (CAD), Myocardial Infarction (NE) Additional Family Medical History / Comment(s): Father of a NE in his 70s. Medications and Allergies Home Medications Medication Instructions Recorded Confirmed Type Montelukast Sodium [Singulair] 10 mg PO HS 10/01/19 05/22/21 History Albuterol Sulfate [Ventolin HFA] 2 puff INHALATION RT-QID PRN 05/05/20 05/22/21 History Apixaban [Eliquis] 5 mg PO BID #60 tab 05/06/20 05/22/21 Rx Omeprazole 20 mg PO DAILY 10/24/20 05/22/21 History Amiodarone [Cordarone] 100 mg PO BID 11/05/20 05/22/21 History Atorvastatin [Lipitor] 20 mg PO HS 90 Days #90 tab 11/09/20 05/22/21 Rx Budesonide/Glycopyr/Formoterol 2 puff INHALATION RT-BID 02/10/21 05/22/21 History [Breztri Aerosphere Inhaler] Furosemide [Lasix] 40 mg PO DAILY 02/10/21 05/22/21 History Metoprolol Succinate (ER) [Toprol 25 mg PO BID 02/10/21 05/22/21 History XL] busPIRone HCL [Buspar] 7.5 mg PO BID PRN 02/10/21 05/22/21 History Megestrol [Megace] 40 mg PO BID 03/31/21 05/22/21 History Promethazine HCl/Codeine 5 ml PO Q6H PRN 03/31/21 05/22/21 History [Promethazine-Codeine Syrup] traZODone HCL [Desyrel] 50 mg PO HS PRN 03/31/21 05/22/21 History Potassium Chloride ER [K-Dur 20] 20 meq PO DAILY 90 Days #90 tablet 04/03/21 05/22/21 Rx Ferrous Sulfate [Feosol] 325 mg PO BID 05/22/21 05/22/21 History HYDROcodone/APAP 10-325MG [[place] 1 tab PO TID 05/22/21 05/22/21 History 10-325] Midodrine HCl 5 mg PO TID 05/22/21 05/22/21 History Nitroglycerin Sl Tabs [Nitrostat] 0.4 mg SL Q5M PRN 05/22/21 05/22/21 History predniSONE 10 mg PO DAILY 05/22/21 05/22/21 History Allergies Allergy/AdvReac Type Severity Reaction Status Date / Time levofloxacin Allergy Anaphylaxis Verified 05/22/21 15:12 memantine [From Namenda] Allergy Rash/Hives Verified 05/22/21 15:12 lisinopril AdvReac Unknown Verified 05/22/21 15:12 Physical Examination - Vital Signs Vital Signs: Vital Signs Temp Pulse Resp BP BP Pulse Ox 05/29/21 07:29 98.4 F 69 21 145/94 100 05/29/21 01:33 98.3 F 73 15 159/95 98 05/28/21 23:09 18 05/28/21 18:58 98.8 F 69 16 171/98 99 05/28/21 14:19 97.5 F L 68 20 163/93 100 05/28/21 12:59 165/97 Intake and Output 05/28/21 05/29/21 05/29/21 22:59 06:59 14:59 Intake Total 180 Output Total 150 Balance 180 -150 Intake: Oral 180 Output: Urine 150 Other: Voiding Method Bedside Commode # Voids 6 13 # Bowel Movements 1 GENERAL: The patient is lying in bed and is not in acute distress. CHEST: The heart rate is regular rate rhythm. No murmurs to auscultation. LUNG: Clear to auscultation bilaterally no wheezing noted throughout. Not labored breathing. ABDOMEN/GI: Bowel sounds present in all 4 quadrants. No tenderness to palpation throughout. NEUROLOGICAL: Higher mental function: The patient is awake, alert, oriented to self only. She stated she is at her daughter's place and upon asking her the current year and month she was telling me her date of . Patient is following some simple commands. No aphasia and no neglect. Cranial nerves: The pupils are round, equal and reactive to light. Visual shea is hard to assess because of her cooperation (she kept on saying 4 for everything even though i had one or two finger raised). Extraocular movement is intact no nystagmus is noted. Facial sensation is normal to touch throughout. The facial strength is normal throughout. Hearing is moderately decreased bilaterally to hand rub. Tongue is midline and moved [id number] without any difficulty. No dysarthria is noted. Shoulder shrug is normal bilaterally. Motor: Gait is deferred. The strength is hard to assess individual muscles but is raising all extremities above gravity without focality. Normal tone and bulk. Cerebellum: Normal finger to nose bilaterally. Sensation: Sensation is normal to touch throughout. Reflexes (right/left): 1+ throughout. Plantars are mute bilaterally. Results - Laboratory Findings CBC and BMP: 05/28/21 06:24 05/28/21 06:24 Abnormal Lab Findings: Abnormal Labs 05/22/21 05/22/21 05/22/21 14:16 14:16 14:16 RBC Hgb Hct MCHC RDW 15.6 H Absolute Nucleated RBC Immature Gran # NRBC/100 WBC Diff Potassium 2.9 L Carbon Dioxide Anion Gap BUN Creatinine 1.11 H BUN/Creatinine Ratio Glucose Calcium Iron % Saturation Transferrin ALT Total Protein 6.2 L Albumin 3.4 L Lipase 430 H Vitamin B12 Urine Protein Trace H Urine Blood Trace H Ur Leukocyte Esterase Moderate H Urine WBC 8 H Urine Mucus Few H 05/23/21 05/23/21 05/24/21 05:14 05:14 04:35 RBC 3.09 L Hgb 9.2 L Hct 29.3 L MCHC 31.4 L RDW 15.9 H Absolute Nucleated RBC Immature Gran # NRBC/100 WBC Diff Potassium 3.2 L Carbon Dioxide 21 L Anion Gap 9.50 L BUN 7.5 L Creatinine BUN/Creatinine Ratio 8.24 L Glucose 64 L Calcium 8.3 L Iron 25 L % Saturation 9.75 L Transferrin 195.0 L ALT Total Protein Albumin Lipase Vitamin B12 1650.0 H Urine Protein Urine Blood Ur Leukocyte Esterase Urine WBC Urine Mucus 05/28/21 05/28/21 06:24 06:24 RBC 3.22 L Hgb 9.6 L Hct 30.5 L MCHC 31.5 L RDW 16.8 H Absolute Nucleated RBC 0.06 H Immature Gran # 0.05 H NRBC/100 WBC Diff 0.7 H Potassium Carbon Dioxide Anion Gap BUN 5.5 L Creatinine BUN/Creatinine Ratio 6.11 L Glucose Calcium Iron % Saturation Transferrin ALT 7 L Total Protein 5.0 L Albumin 3.1 L Lipase Vitamin B12 Urine Protein Urine Blood Ur Leukocyte Esterase Urine WBC Urine Mucus Assessment and Plan Assessment: Low back pain Bilateral neuroforaminal stenosis at T7-T8 with minimal spinal canal stenosis on CT. Encephalopathy due to her advanced dementia as well as metabolic encephalopathy Advanced dementia History of atrial fibrillation on eliquis Hypotension on Midrin Hyperlipidemia History of aortic aneurysm Plan: Orthopedic team is on board PT and OT are consulted Continue neuro checks From the imaging report of the CT thorax and lumbar, I think patient will not get surgery especially with her advanced dementia and and has no severe compression or stenosis. But we'll defer the final decision to the orthopedic team. I spoke with PA from Orthopedic team and they stated they are not planning of any surgery and will have patient follow-up as outpatient. Started the patient on Gabapentin 100mg 1 tab tid. Consider EMG nerve conduction study of lower extremities as an outpatient. We'll defer the rest of medical management to the primary team. No additional testing needed. The plan is discussed with the patient daughter who is at bedside and her nurse. Thank you for consultation. Please notify neurology team if any additional concerns. Suleman Chandler M.D. Neuro-hospitalist Time with Patient: Greater than 30
--- NOTE | 2021-05-29 15:28 | P.PN ---
Subjective Progress Note Date: 05/29/21 Principal diagnosis: Mid-back pain History of L5-S1 fusion T7, T12, L4 compression fractures, chronic in nature T7-T8 neuro foraminal stenosis Degenerative disc disease Patient was seen at bedside this afternoon resting comfortably lying the semirecumbent position. Patient's daughter was at bedside throughout the encounter. Patient's daughter was very vocal throughout the encounter and says that her mother has dealt with pain in her back for many years. Patient says [place] ago she did have lower back surgery in [place] where L5-S1 fusion was performed. Patient's daughter says her mother mostly complains of pain in her mid back region. Patient does say that she takes Le Roy at home for her back pain usually. Patient says that Le Roy does help control her pain somewhat. Patient's daughter also says her mother is progressively seemed to have gotten weaker over the past several months and has had several falls since. Patient's daughter also says that patient did fall yesterday in the room. Patient says she landed on her stomach when she fell and mentions that she is having a little bit of low back pain on the left side since the fall. CT of the thoracic and lumbar spine do demonstrate previous lumbar fusion surgery at L5-S1 as well as compression deformities at T7, T12 and L4 chronic in nature. Patient does not complain of any saddle anesthesia or perineal nuybness/tingling. Patient denies any lower extremity radiculopathy. Patient's daughter says her mother has had steroid injections into her spine in the past. Patient's daughter also mentions that the back brace does cause her mother to have increased pain in the back therefore they do not feel it is beneficial. Patient denies increasing chest pain, increasing shortness of breath, nausea, vomiting, change in vision, loss of pulse/bladder control. Objective - Vital Signs Vital signs: Vital Signs Temp 98.4 F 05/29/21 07:29 Pulse 69 05/29/21 07:29 Resp 21 05/29/21 07:29 BP 145/94 05/29/21 07:29 Pulse Ox 100 05/29/21 07:29 Intake & Output 05/28/21 05/29/21 05/29/21 18:59 06:59 18:59 Intake Total 540 Output Total 150 Balance 540 -150 Weight 63.503 kg Intake: Oral 540 Output: Urine 150 Other: Voiding Method Bedside Commode Bedside Commode # Voids 6 13 # Bowel Movements 1 - Exam Negative for any significant ecchymosis leisure erythema or open fractures. Sensation is equal, symmetric, bilateral intact throughout the upper and lower extremities. Patient does have mild to moderate tenderness to palpation throughout the thoracic spine and in the paraspinal region. Patient is nonte nder to palpation throughout rest of exam Patient has limited range of motion in flexion of the right shoulder. Patient does have full range of motion in the left upper extremity as well as bilateral lower extremities. Patient does have good strength, 5/5 throughout the bilateral upper and lower extremities on exam. Radial pulses intact, 2+ bilaterally. Cap refill under 3 seconds in digits up per extremities. - Labs CBC & Chem 7: 05/28/21 06:24 05/28/21 06:24 Assessment and Plan Assessment: Mid-back pain History of L5-S1 fusion T7, T12, L4 compression fractures, chronic in nature T7-T8 neuro foraminal stenosis Degenerative disc disease Plan: 1. T7, T12, L4 compression fractures, chronic in nature; T7-T8 neuro foraminal stenosis; Degenerative disc disease; Mid-back pain; History of L5-S1 fusion - patient stable at bedside this afternoon. As noted on CT of the thoracic/lumbar spine and noted on physical exam there is no significant evidence of any acute changes throughout the spine. Patient does not have significant weakness in the lower extremities and does not present with radiculopathy. At this time we do not recommend any emergent/urgent orthopedic surgical intervention. Patient does have good strength in the lower extremities on exam. At this time we do recommend conservative measures via pain control Le Roy and Tylenol. We do recommend patient to follow-up in the outpatient setting with Dr. Wasserman. Patient is stable from an orthopedic standpoint for discharge. At this time orthopedics is signing off. Please do not hesitate to contact us for any further questions. 2. Appreciate medical and neuro management 3. Pain management - Le Roy; Tylenol 4. GI prophylaxis - Protonix 5. DVT prophylaxis - Eliquis 6. PT/OT - WBAT w/walker and assistance. Back brace prn Time with Patient: Less than 30
[2021-05-29] MEDS: GABAPENTIN 100 MG CAP PO SCH (22:45)
[2021-05-29] MEDS: MONTELUKAST 10 MG TAB PO SCH (22:46)
[2021-05-29] MEDS: ATORVASTATIN 20 MG TAB PO SCH (22:46)
[2021-05-30] MEDS: LACTATED RINGERS 1,000 ML IV SCH ×2 (05:34→20:00)
[2021-05-30] MEDS: NON FORMULARY DRUG (Budesonide/Glycopyr/Formoterol [Breztri Aerosphere Inhaler] 10.7 GM Gm INHALATION SCH ×2 (08:06→19:10)
[2021-05-30] MEDS: PROCHLORPERAZINE 5 MG TAB PO PRN ×2 (08:33→23:24)
[2021-05-30] MEDS: GABAPENTIN 100 MG CAP PO SCH ×3 (09:52→22:30)
[2021-05-30] MEDS: predniSONE 10 MG TAB PO SCH (09:52)
[2021-05-30] MEDS: AMIODARONE 100 MG TAB PO SCH (09:53)
[2021-05-30] MEDS: PANTOPRAZOLE 40 MG TABLET PO SCH (09:53)
[2021-05-30] MEDS: CEPHALEXIN 500 MG CAP PO SCH ×2 (09:53→16:56)
[2021-05-30] MEDS: MEGESTROL 400 MG/10 ML CUP PO SCH (09:53)
[2021-05-30] MEDS: APIXABAN 5 MG TAB PO SCH ×2 (09:53→22:30)
[2021-05-30] MEDS: METOPROLOL SUCCINATE (ER) 25 MG TAB.ER.24H PO SCH ×2 (09:53→22:30)
[2021-05-30] MEDS: HYDROcodone/APAP 10-325MG 1 EACH TAB PO SCH ×3 (09:53→22:30)
--- NOTE | 2021-05-30 11:37 | P.PN ---
Subjective Progress Note Date: 05/30/21 The patient is seen at bedside and feels her back pain is somewhat better today compared to yesterday. Objective - Vital Signs Vital signs: Vital Signs Temp 98.4 F 05/30/21 08:13 Pulse 64 05/30/21 08:13 Resp 19 05/30/21 08:13 BP 143/84 05/30/21 08:13 Pulse Ox 96 05/30/21 08:13 Intake & Output 05/29/21 05/30/21 05/30/21 18:59 06:59 18:59 Other: Voiding Method Bedside Commode # Voids 10 2 - Exam GENERAL: The patient is lying in bed and is not in acute distress. NEUROLOGICAL: Higher mental function: The patient is awake, alert, oriented to self and stated she is in the hospital ([facility]). she stated she does not know the date. Patient is following some simple commands. No aphasia and no neglect. Cranial nerves: The pupils are round, equal and reactive to light. Visual shea is hard to assess because of her cooperation (she kept on saying 4 for everything even though i had one or two finger raised). Extraocular movement is intact no nystagmus is noted. Facial sensation is normal to touch throughout. The facial strength is normal throughout. Tongue is midline and moved [id number] without any difficulty. No dysarthria is noted. Shoulder shrug is normal bilaterally. Motor: Gait is deferred. The strength is hard to assess individual muscles but is raising all extremities above gravity without focality. Normal tone and bulk. Cerebellum: Normal finger to nose bilaterally. Sensation: Sensation is normal to touch throughout. Reflexes (right/left): 1+ throughout. Plantars are mute bilaterally. SOME OF THE WORK-UP: TSH is 1.06. AST is 25 and ALTs 8. Urine analysis is possible suggestive of urinary tract infection. CT thoracic and lumbar spine in our facility which is reported as T7 and vertebral plane not demonstrating complete collapse and sclerotic changes which is not appreciated on January 2021 x-ray. Suspect bilateral neuroforaminal stenosis at T7-T8 level with minimal spinal canal stenosis. Other multilevel vertebral body collapse. Diffuse osteopenia. Body report as mentioned the patient has moderate central canal spinal stenosis without significant neuroforaminal stenosis. - Labs CBC & Chem 7: 05/28/21 06:24 05/28/21 06:24 Assessment and Plan Assessment: Low back pain Bilateral neuroforaminal stenosis at T7-T8 with minimal spinal canal stenosis on CT. Encephalopathy due to her advanced dementia as well as metabolic encephalopathy Advanced dementia History of atrial fibrillation on eliquis Hypotension on Midrin Hyperlipidemia History of aortic aneurysm Plan: Orthopedic team is on board PT and OT are consulted Continue neuro checks From the imaging report of the CT thorax and lumbar, I think patient will not get surgery especially with her advanced dementia and and has no severe compression or stenosis. But we'll defer the final decision to the orthopedic team. I spoke with PA from Orthopedic team and they stated they are not planning of any surgery and will have patient follow-up as outpatient. Continue Gabapentin 100mg 1 tab tid. Consider EMG nerve conduction study of lower extremities as an outpatient. We'll defer the rest of medical management to the primary team. The plan is discussed with the and primary team.. No additional testing is needed. Please notify neurology team if any additional concerns. Suleman Chandler M.D. Neuro-hospitalist Time with Patient: Less than 30
--- NOTE | 2021-05-30 13:01 | P.PN ---
Subjective Progress Note Date: 05/29/21 Principal diagnosis: Altered mental status Visual hallucinations Electrolyte imbalance with severe hypokalemia COPD stable not in exacerbation Chronic atrial fibrillation Chronic anemia Hypertension hypertensive cardiovascular disease 05/29/2021, patient seen eval examined during the rounds labs reviewed medications reviewed care plan discussed, history status stable, denies any chest pain, now has some more achiness in the legs, respiratory status stable, on room air breathing comfortably neurology recommendation noted and appreciated 05/28/2021, patient seen eval reexamined during the rounds labs reviewed medications reviewed, patient fell down today has diffuse aches and pains BUT he has evaluated the patient CT of the T7 vertebra noted to have complete collapse and the sclerotic changes bilateral neuroforaminal stenosis and T7-T8 level with spinal canal stenosis 05/27/2021, patient seen eval examined during the rounds, patient remains on bronchodilator as needed, oxygen saturation 96-98% room air, denies any chest pain shortness of breath denies any cough or sputum production respiratory status remains stable, will observe patient off of IV antibiotics is gently being rehydrated 05/26/2021, patient seen eval reexamined, remains afebrile and hemodynamically stable, blood pressure slightly better controlled now oxygen saturation remains 96% on room air, patient remains on bronchodilator tolerating well as well as direct anticoagulant remains on oral antibiotics, getting iron supplements as well Patient is a 75-year-old female with prior medical history of COPD patient has one dementia and Alzheimer's disease not much data can be obtained from her, patient admitted into the hospital with the visual hallucination. Prior medical history significant for chronic atrial fibrillation on direct oral anticoagulation, history of asthma COPD dementia. She lives with her daughter who is a caregiver and power of traffic line painter, the last few days patient appetite has been poor not eating or drinking anything also refusing her medications. Lately she started having some visual hallucination and was not recognizing family members with dark stool for 3 days patient started having increasing shortness of breath and chest pain in addition patient has been weak and not able to ambulate patient daughter eventually has been advised to be seen and evaluated in emergency department labs were hemoglobin was 11.9 with normal WBC count came down to 9.2 repeat CBC has not been done, potassium has been 2.9 with replacement improved to 3.6 BUN/creatinine also improved with rehydration, lactic acid within normal limit stool for occult blood negative, leukocyte is trace positive nitrite was negative, currently patient is being treated with oral Plaques and continuation of direct oral anticoagulant as needed bronchodilators Objective - Vital Signs Vital signs: Vital Signs Temp 98.4 F 05/29/21 07:29 Pulse 69 05/29/21 07:29 Resp 21 05/29/21 07:29 BP 145/94 05/29/21 07:29 Pulse Ox 100 05/29/21 07:29 Intake & Output 05/28/21 05/29/21 05/29/21 18:59 06:59 18:59 Intake Total 540 Output Total 150 Balance 540 -150 Weight 63.503 kg Intake: Oral 540 Output: Urine 150 Other: Voiding Method Bedside Commode Bedside Commode # Voids 6 13 # Bowel Movements 1 - Exam - Constitutional General appearance: average body habitus, cooperative, disheveled - EENT Eyes: EOMI, PERRLA ENT: normal oropharynx Ears: bilateral: normal - Neck Neck: normal ROM Carotids: bilateral: upstroke normal Thyroid: bilateral: normal size - Respiratory Respiratory: bilateral: CTA - Cardiovascular Rhythm: regular Heart sounds: normal: S1, S2 - Gastrointestinal General gastrointestinal: normal bowel sounds, soft - Integumentary Integumentary: normal turgor - Neurologic Neurologic: CNII-XII intact - Musculoskeletal Musculoskeletal: gait normal, generalized weakness, strength equal bilaterally - Psychiatric Pleasantly confused Psychiatric: appropriate affect - Labs CBC & Chem 7: 05/28/21 06:24 05/28/21 06:24 Assessment and Plan Assessment: Altered mental status 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
--- NOTE | 2021-05-30 13:03 | P.PN ---
Subjective Progress Note Date: 05/30/21 Principal diagnosis: Altered mental status Visual hallucinations Electrolyte imbalance with severe hypokalemia COPD stable not in exacerbation Chronic atrial fibrillation Chronic anemia Hypertension hypertensive cardiovascular disease 05/30/2021, patient seen eval examined, patient has spinal stenosis, the relative care is being considered, no chest pain is present, some pain aches in the lower extremity have improved now 3 status stable on room air saturation 95- 98% breathing comfortably 05/29/2021, patient seen eval examined during the rounds labs reviewed medicati ons reviewed care plan discussed, history status stable, denies any chest pain, now has some more achiness in the legs, respiratory status stable, on room air breathing comfortably neurology recommendation noted and appreciated 05/28/2021, patient seen eval reexamined during the rounds labs reviewed medications reviewed, patient fell down today has diffuse aches and pains BUT he has evaluated the patient CT of the T7 vertebra noted to have complete collapse and the sclerotic changes bilateral neuroforaminal stenosis and T7-T8 level with spinal canal stenosis 05/27/2021, patient seen eval examined during the rounds, patient remains on bronchodilator as needed, oxygen saturation 96-98% room air, denies any chest pain shortness of breath denies any cough or sputum production respiratory sta tus remains stable, will observe patient off of IV antibiotics is gently being rehydrated 05/26/2021, patient seen eval reexamined, remains afebrile and hemodynamically stable, blood pressure slightly better controlled now oxygen saturation remains 96% on room air, patient remains on bronchodilator tolerating well as well as direct anticoagulant remains on oral antibiotics, getting iron supplements as well Patient is a 75-year-old female with prior medical history of COPD patient has one dementia and Alzheimer's disease not much data can be obtained from her, patient admitted into the hospital with the visual hallucination. Prior medical history significant for chronic atrial fibrillation on direct oral anticoagulation, history of asthma COPD dementia. She lives with her daughter who is a caregiver and power of senior trial attorney, the last few days patient appetite has been poor not eating or drinking anything also refusing her medications. Lately she started having some visual hallucination and was not recognizing family members with dark stool for 3 days patient started having increasing shortness of breath and chest pain in addition patient has been weak and not able to ambulate patient daughter eventually has been advised to be seen and evaluated in emergency department labs were hemoglobin was 11.9 with normal WBC count came down to 9.2 repeat CBC has not been done, potassium has been 2.9 with replacement improved to 3.6 BUN/creatinine also improved with rehydration, lac tic acid within normal limit stool for occult blood negative, leukocyte is trace positive nitrite was negative, currently patient is being treated with oral Plaques and continuation of direct oral anticoagulant as needed bronchodilators Objective - Vital Signs Vital signs: Vital Signs Temp 98.4 F 05/30/21 08:13 Pulse 64 05/30/21 08:13 Resp 19 05/30/21 08:13 BP 143/84 05/30/21 08:13 Pulse Ox 96 05/30/21 08:13 Intake & Output 05/29/21 05/30/21 05/30/21 18:59 06:59 18:59 Other: Voiding Method Bedside Commode # Voids 10 2 - Exam - Constitutional General appearance: average body habitus, cooperative, disheveled - EENT Eyes: EOMI, PERRLA ENT: normal oropharynx Ears: bilateral: normal - Neck Neck: normal ROM Carotids: bilateral: upstroke normal Thyroid: bilateral: normal size - Respiratory Respiratory: bilateral: CTA - Cardiovascular Rhythm: regular Heart sounds: normal: S1, S2 - Gastrointestinal General gastrointestinal: normal bowel sounds, soft - Integumentary Integumentary: normal turgor - Neurologic Neurologic: CNII-XII intact - Musculoskeletal Musculoskeletal: gait normal, generalized weakness, strength equal bilaterally - Psychiatric Pleasantly confused Psychiatric: appropriate affect - Labs CBC & Chem 7: 05/28/21 06:24 05/28/21 06:24 Assessment and Plan Assessment: Altered mental status 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
[2021-05-30] MEDS: MONTELUKAST 10 MG TAB PO SCH (22:30)
[2021-05-30] MEDS: DOCUSATE ORAL SOLN 100 MG/10 ML CUP PO SCH (22:31)
[2021-05-30] MEDS: ATORVASTATIN 20 MG TAB PO SCH (22:31)
[2021-05-31] MEDS: LACTATED RINGERS 1,000 ML IV SCH ×2 (01:53→21:19)
[2021-05-31] MEDS: CEPHALEXIN 500 MG CAP PO SCH (02:03)
[2021-05-31] MEDS: GABAPENTIN 100 MG CAP PO SCH (07:55)
[2021-05-31] MEDS: AMIODARONE 100 MG TAB PO SCH (08:25)
[2021-05-31] MEDS: METOPROLOL SUCCINATE (ER) 25 MG TAB.ER.24H PO SCH ×2 (08:25→21:24)
[2021-05-31] MEDS: PANTOPRAZOLE 40 MG TABLET PO SCH (08:25)
[2021-05-31] MEDS: predniSONE 10 MG TAB PO SCH (08:25)
[2021-05-31] MEDS: APIXABAN 5 MG TAB PO SCH ×2 (08:25→21:25)
[2021-05-31] MEDS: DOCUSATE ORAL SOLN 100 MG/10 ML CUP PO SCH ×2 (08:25→21:25)
[2021-05-31] MEDS: MEGESTROL 400 MG/10 ML CUP PO SCH (08:26)
[2021-05-31 09:12] LABS: Basophils # (A) 0.02 X 10*3/uL (0.00-0.10); Basophils % (A) 0.2 %; Eosinophils # (A) 0.01 X 10*3/uL (0.04-0.35); Eosinophils % (A) 0.1 %; HCT 29.3 % (37.2-46.3); HGB 9.2 g/dL (12.0-15.0); Immature Grans, Automated 0.5 %; Lymphocytes # (A) 1.92 X 10*3/uL (0.90-5.00); Lymphocytes % (A) 22.9 %; MCH 29.7 pg (27.0-32.0); MCHC 31.4 g/dL (32.0-37.0); MCV 94.5 fL (80.0-97.0); Mean Platelet Volume 10.6 fL (9.5-12.2); Monocytes # (A) 0.83 X 10*3/uL (0.20-1.00); Monocytes % (A) 9.9 %; NRBC Per 100 WBC 0 /100 WBCS (0.0-0.0); Neutrophils # (A) 5.58 X 10*3/uL (1.80-7.70); Neutrophils % (A) 66.4 %; Platelet Count 300 X 10*3/uL (140-440)
[2021-05-31] MEDS: ONDANSETRON 4 MG/2 ML VIAL IVP PRN (09:31)
[2021-05-31 09:44] LABS: African American GFR (CKD) 81.3 (60.0-200.0); Anion Gap 9.4 mmol/L (10.00-18.00); BUN/Creat Ratio 11.14 Ratio (12.00-20.00); Blood Urea Nitrogen 9.1 mg/dL (9.0-27.0); Calcium 8.1 mg/dL (8.7-10.3); Carbon Dioxide 24.5 mmol/L (20.0-27.5); Non-African American GFR(CKD) 70.1 (60.0-200.0)
[2021-05-31] MEDS: NON FORMULARY DRUG (Budesonide/Glycopyr/Formoterol [Breztri Aerosphere Inhaler] 10.7 GM Gm INHALATION SCH ×2 (09:44→21:42)
[2021-05-31] MEDS: HYDROcodone/APAP 10-325MG 1 EACH TAB PO SCH ×3 (10:07→21:24)
--- NOTE | 2021-05-31 14:53 | P.PN ---
Subjective Progress Note Date: 05/31/21 Principal diagnosis: Altered mental status Visual hallucinations Electrolyte imbalance with severe hypokalemia COPD stable not in exacerbation Chronic atrial fibrillation Chronic anemia Hypertension hypertensive cardiovascular disease 05/31/2021, patient seen eval examined during the rounds labs reviewed medications reviewed, patient denies any chest pain denies any leg pain some pain present at times on the back, neurology as well as orthopedic service has been following, breathing is stable, off of oxygen 05/30/2021, patient seen eval examined, patient has spinal stenosis, the relative care is being considered, no chest pain is present, some pain aches in the lower extremity have improved now 3 status stable on room air saturation 95- 98% breathing comfortably 05/29/2021, patient seen eval examined during the rounds labs reviewed medications reviewed care plan discussed, history status stable, denies any chest pain, now has some more achiness in the legs, respiratory status stable, on room air breathing comfortably neurology recommendation noted and appreciated 05/28/2021, patient seen eval reexamined during the rounds labs reviewed medications reviewed, patient fell down today has diffuse aches and pains BUT he has evaluated the patient CT of the T7 vertebra noted to have complete collapse and the sclerotic changes bilateral neuroforaminal stenosis and T7-T8 level with spinal canal stenosis 05/27/2021, patient seen eval examined during the rounds, patient remains on bronchodilator as needed, oxygen saturation 96-98% room air, denies any chest pain shortness of breath denies any cough or sputum production respiratory status remains stable, will observe patient off of IV antibiotics is gently being rehydrated 05/26/2021, patient seen eval reexamined, remains afebrile and hemodynamically stable, blood pressure slightly better controlled now oxygen saturation remains 96% on room air, patient remains on bronchodilator tolerating well as well as direct anticoagulant remains on oral antibiotics, getting iron supplements as well Patient is a 75-year-old female with prior medical history of COPD patient has one dementia and Alzheimer's disease not much data can be obtained from her, patient admitted into the hospital with the visual hallucination. Prior medical history significant for chronic atrial fibrillation on direct oral anticoagulation, history of asthma COPD dementia. She lives with her daughter who is a caregiver and power of workers compensation defense attorney, the last few days patient appetite has been poor not eating or drinking anything also refusing her medications. Lately she started having some visual hallucination and was not recognizing family members with dark stool for 3 days patient started having increasing shortness of breath and chest pain in addition patient has been weak and not able to ambulate patient daughter eventually has been advised to be seen and evaluated in emergency department labs were hemoglobin was 11.9 with normal WBC count came down to 9.2 repeat CBC has not been done, potassium has been 2.9 with replacement improved to 3.6 BUN/creatinine also improved with rehydration, lactic acid within normal limit stool for occult blood negative, leukocyte is trace positive nitrite was negative, currently patient is being treated with oral Plaques and continuation of direct oral anticoagulant as needed bronchodilators Objective - Vital Signs Vital signs: Vital Signs Temp 98.6 F 05/31/21 07:35 Pulse 65 05/31/21 07:35 Resp 18 05/31/21 07:35 BP 129/85 05/31/21 07:35 Pulse Ox 96 05/31/21 07:35 Intake & Output 05/30/21 05/31/21 05/31/21 18:59 06:59 18:59 Intake Total 180 Balance 180 Intake: Oral 180 Other: Voiding Method Bedside Commode # Voids 3 3 # Bowel Movements 0 - Exam - Constitutional General appearance: average body habitus, cooperative, disheveled - EENT Eyes: EOMI, PERRLA ENT: normal oropharynx Ears: bilateral: normal - Neck Neck: normal ROM Carotids: bilateral: upstroke normal Thyroid: bilateral: normal size - Respiratory Respiratory: bilateral: CTA - Cardiovascular Rhythm: regular Heart sounds: normal: S1, S2 - Gastrointestinal General gastrointestinal: normal bowel sounds, soft - Integumentary Integumentary: normal turgor - Neurologic Neurologic: CNII-XII intact - Musculoskeletal Musculoskeletal: gait normal, generalized weakness, strength equal bilaterally - Psychiatric Pleasantly confused Psychiatric: appropriate affect - Labs CBC & Chem 7: 05/31/21 05:56 05/31/21 05:49 Labs: Abnormal Lab Results - Last 24 Hours (Table) 05/31/21 05/31/21 Range/Units 05:49 05:56 RBC 3.10 L (4.10-5.20) X 10*6/uL Hgb 9.2 L (12.0-15.0) g/dL Hct 29.3 L (37.2-46.3) % MCHC 31.4 L (32.0-37.0) g/dL RDW 18.0 H (11.5-14.5) % Eosinophils # 0.01 L (0.04-0.35) X 10*3/uL Potassium 3.0 L (3.5-5.5) mmol/L Anion Gap 9.40 L (10.00-18.00) mmol/L BUN/Creatinine Ratio 11.14 L (12.00-20.00) Ratio Calcium 8.1 L (8.7-10.3) mg/dL Assessment and Plan Assessment: Altered mental status 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
[2021-05-31] MEDS: MONTELUKAST 10 MG TAB PO SCH (21:24)
[2021-05-31] MEDS: ATORVASTATIN 20 MG TAB PO SCH (21:25)
--- NOTE | 2021-06-01 00:09 | P.PN ---
Subjective Progress Note Date: 05/30/21 This is a pleasant 75-year-old patient who follows with Dr. Lalo Nguyen. Chronic stable medical conditions include atrial fibrillation, asthma, dementia, hypertension, hyperlipidemia, chronic kidney disease, aortic aneurysm, kidney stones, seizure in 2019, chronic back pain. And a baseline uses a walker. Does live with her daughterMelony was also POA. Patient is brought into the ER along with the Daughter. With multiple complaints. Patient has significant dementia. Recently patient been eating and drinking. Also patient been taking refusing to take her medications for some time. Also some visual hallucinations. She also had some dock stools for 3 days. I'll get today she had complained of some chest pain or shortness of breath. Patient really cannot corroborate the history. She states she has no appetite. Patient eating more and more assistance. No fever no chills. Admitted with advancing medical debility, acute kidney injury, dehydration, failing health. 05/30/2021 Patient is currently lying in the bed. Awake alert and oriented x3. Complains of nausea but improved. Back pain is also improved as well. Patient was seen by neurology and orthopedic surgery due to spinal stenosis.. Currently on room air. Patient has been afebrile. Laboratory data. Pulmonary and neurology and orthopedic surgery is on board. Current medications reviewed. Objective - Vital Signs Vital signs: Vital Signs Temp 98.0 F 05/30/21 20:00 Pulse 68 05/30/21 20:00 Resp 16 05/30/21 20:00 BP 131/84 05/30/21 20:00 Pulse Ox 97 05/30/21 20:00 Intake & Output 05/30/21 05/30/21 05/31/21 06:59 18:59 06:59 Intake Total 180 Balance 180 Intake: Oral 180 Other: Voiding Method Bedside Commode # Voids 2 3 # Bowel Movements 0 - Exam Physical examination:8, 03/04/1980, 98% room air GENERAL: Reclining in bed, comfortable EYES: Pupils equal. Conjunctiva pale. HEENT: External appearance of nose and ears normal, oral cavity grossly normal. NECK: JVD not raised; masses not palpable. HEART: First and second heart sounds are normal; no edema. LUNGS: Respiratory rate normal; clear to auscultation. ABDOMEN: Soft, nontender, liver spleen not palpable, no masses palpable. PSYCH: Can only answer simple questions MUSCULOSKELETAL:No Clubbing/cyanosis;muscles-grossly intact. Decreased muscle mass. Evidence of OA. INVESTIGATIONS, reviewed in the clinical context: May 24: Potassium 3.6 creatinine 0.87 I 25 TIBC 260% saturation 9.75. Vitamin B12 1650 May 23: White count 6.2 hemoglobin 9.2 platelets 275 potassium 3.2 creatinine 0.9 White count 17 hemoglobin 11.9 platelets 354 sodium 138 potassium 2.9 creatinine 1.11 Troponin I less than 0.012 TSH 1.0 UA positive for leukoesterase WBC EKG tracing personally reviewed by me-normal sinus rhythm. Nonspecific ST-T wave changes Chest x-ray film personally reviewed by me-cardiomegaly. Lung shea clear - Labs CBC & Chem 7: 05/31/21 05:56 05/31/21 05:49 Assessment and Plan Assessment: Assessment and plan: -Acute on chronic advancing medical debility. Multifactorial. At home [ Not taking medications. Not eating. Dehydration. Possible acute kidney injury.] Doing better. PTOT input -Acute kidney injury, prerenal. Decreased oral intake. : Better Stop Lasix. Received IV fluids -Iron deficiency anemia IV Ferrlecit 2 doses -GERD Omeprazole 20 mg a -Moderate persistent asthma Singulair 10 mg daily at bedtime.Breztri inhaler -Chronic hypotension Midodrine 5 mg 3 times a day -Paroxysmal atrial fibrillation currently sinus rhythm Toprol-XL 25 mg twice a day. Amiodarone 100 mg twice a day. Eliquis 5 mg twice a day -Chronic anorexia Megace 40 mg twice a day -Primary osteoarthritis multiple joints Ramsey 10 one tablet by mouth 3 times a day -Hyperlipidemia Lipitor 20 mg daily at bedtime -Acute UTI with cystitis Keflex 500 mg 4 times a day -Hypokalemia corrected Replace potassium -Mild protein calorie malnutrition Dietitian. Ensure supplement. -D POA Malony Keflex. Encourage oral intake. PTOT. Time with Patient: Greater than 30
--- NOTE | 2021-06-01 00:11 | P.PN ---
Subjective Progress Note Date: 05/31/21 This is a pleasant 75-year-old patient who follows with Dr. Lalo Nguyen. Chronic stable medical conditions include atrial fibrillation, asthma, dementia, hypertension, hyperlipidemia, chronic kidney disease, aortic aneurysm, kidney stones, seizure in 2019, chronic back pain. And a baseline uses a walker. Does live with her daughterMelony was also POA. Patient is brought into the ER along with the Daughter. With multiple complaints. Patient has significant dementia. Recently patient been eating and drinking. Also patient been taking refusing to take her medications for some time. Also some visual hallucinations. She also had some dock stools for 3 days. I'll get today she had complained of some chest pain or shortness of breath. Patient really cannot corroborate the history. She states she has no appetite. Patient eating more and more assistance. No fever no chills. Admitted with advancing medical debility, acute kidney injury, dehydration, failing health. 05/30/2021 Patient is currently lying in the bed. Awake alert and oriented x3. Complains of nausea but improved. Back pain is also improved as well. Patient was seen by neurology and orthopedic surgery due to spinal stenosis.. Currently on room air. Patient has been afebrile. Laboratory data. Pulmonary and neurology and orthopedic surgery is on board. 05/27/2021 Patient is currently resting in bed. Awake alert and oriented x2. No complaints of chest pain or shortness of breath. Leg pain and back pain is better. Patient is currently on room air. No headache or dizziness or lightheadedness. Anticipate discharge to rehab. Laboratory data showed WBC 8.4 hemoglobin 9.2 and platelets 300 Sodium 130 and potassium 3.0 chloride 105 bicarb is 24.5 BUN 9.1 and creatinine 0.8 and calcium 8.1 Orthopedic surgery recommends no surgical intervention at this time. Was seen by neurology. Possible discharge to rehab in the next 24 hours. Current medications reviewed. Objective - Vital Signs Vital signs: Vital Signs Temp 98.6 F 05/31/21 07:35 Pulse 65 05/31/21 07:35 Resp 18 05/31/21 07:35 BP 129/85 05/31/21 07:35 Pulse Ox 96 05/31/21 07:35 Intake & Output 05/30/21 05/31/21 05/31/21 18:59 06:59 18:59 Intake Total 180 Balance 180 Intake: Oral 180 Other: Voiding Method Bedside Commode # Voids 3 3 # Bowel Movements 0 - Exam Physical examination:8, [birth year]/04/1980, 98% room air GENERAL: Reclining in bed, comfortable EYES: Pupils equal. Conjunctiva pale. HEENT: External appearance of nose and ears normal, oral cavity grossly normal. NECK: JVD not raised; masses not palpable. HEART: First and second heart sounds are normal; no edema. LUNGS: Respiratory rate normal; clear to auscultation. ABDOMEN: Soft, nontender, liver spleen not palpable, no masses palpable. PSYCH: Can only answer simple questions MUSCULOSKELETAL:No Clubbing/cyanosis;muscles-grossly intact. Decreased muscle mass. Evidence of OA. INVESTIGATIONS, reviewed in the clinical context: May 24: Potassium 3.6 creatinine 0.87 I 25 TIBC 260% saturation 9.75. Vitamin B12 1650 May 23: White count 6.2 hemoglobin 9.2 platelets 275 potassium 3.2 creatinine 0.9 White count 17 hemoglobin 11.9 platelets 354 sodium 138 potassium 2.9 creatinine 1.11 Troponin I less than 0.012 TSH 1.0 UA positive for leukoesterase WBC EKG tracing personally reviewed by me-normal sinus rhythm. Nonspecific ST-T wave changes Chest x-ray film personally reviewed by me-cardiomegaly. Lung shea clear - Labs CBC & Chem 7: 05/31/21 05:56 05/31/21 05:49 Labs: Abnormal Lab Results - Last 24 Hours (Table) 05/31/21 05/31/21 Range/Units 05:49 05:56 RBC 3.10 L (4.10-5.20) X 10*6/uL Hgb 9.2 L (12.0-15.0) g/dL Hct 29.3 L (37.2-46.3) % MCHC 31.4 L (32.0-37.0) g/dL RDW 18.0 H (11.5-14.5) % Eosinophils # 0.01 L (0.04-0.35) X 10*3/uL Potassium 3.0 L (3.5-5.5) mmol/L Anion Gap 9.40 L (10.00-18.00) mmol/L BUN/Creatinine Ratio 11.14 L (12.00-20.00) Ratio Calcium 8.1 L (8.7-10.3) mg/dL Assessment and Plan Assessment: Assessment and plan: -Acute on chronic advancing medical debility. Multifactorial. At home [ Not taking medications. Not eating. Dehydration. Possible acute kidney injury.] Doing better. PTOT input -Acute kidney injury, prerenal. Decreased oral intake. : Better Stop Lasix. Received IV fluids -Iron deficiency anemia IV Ferrlecit 2 doses -GERD Omeprazole 20 mg a -Moderate persistent asthma Singulair 10 mg daily at bedtime.Breztri inhaler -Chronic hypotension Midodrine 5 mg 3 times a day -Paroxysmal atrial fibrillation currently sinus rhythm Toprol-XL 25 mg twice a day. Amiodarone 100 mg twice a day. Eliquis 5 mg twice a day -Chronic anorexia Megace 40 mg twice a day -Primary osteoarthritis multiple joints Gamerco 10 one tablet by mouth 3 times a day -Hyperlipidemia Lipitor 20 mg daily at bedtime -Acute UTI with cystitis Keflex 500 mg 4 times a day -Hypokalemia corrected Replace potassium -Mild protein calorie malnutrition Dietitian. Ensure supplement. -Shanna Hernandez Keflex. Encourage oral intake. PTOT. Time with Patient: Greater than 30
[2021-06-01] MEDS ORDERED: POTASSIUM CHLORIDE ER 20 MEQ TAB.ER PO SCH (00:15)
[2021-06-01] MEDS: POTASSIUM BICARB-CITRIC ACID 25 MEQ TABLET.EFF PO SCH ×4 (00:35→20:34)
--- NOTE | 2021-06-01 12:15 | P.PN ---
Subjective Progress Note Date: 06/01/21 Principal diagnosis: Altered mental status Visual hallucinations Electrolyte imbalance with severe hypokalemia COPD stable not in exacerbation Chronic atrial fibrillation Chronic anemia Hypertension hypertensive cardiovascular disease 06/01/2021, patient seen and evaluated examined during the rounds labs reviewed medications reviewed, shortness of breath is stable, denies any cough or sputum production denies any chest pain, mild back pain is present, neurology and spine surgery following, 05/31/2021, patient seen eval examined during the rounds labs reviewed medicat ions reviewed, patient denies any chest pain denies any leg pain some pain present at times on the back, neurology as well as orthopedic service has been following, breathing is stable, off of oxygen 05/30/2021, patient seen eval examined, patient has spinal stenosis, the relative care is being considered, no chest pain is present, some pain aches in the lower extremity have improved now 3 status stable on room air saturation 95- 98% breathing comfortably 05/29/2021, patient seen eval examined during the rounds labs reviewed medications reviewed care plan discussed, history status stable, denies any chest pain, now has some more achiness in the legs, respiratory status stable, on room air breathing comfortably neurology recommendation noted and appreciated 05/28/2021, patient seen eval reexamined during the rounds labs reviewed medications reviewed, patient fell down today has diffuse aches and pains BUT he has evaluated the patient CT of the T7 vertebra noted to have complete collapse and the sclerotic changes bilateral neuroforaminal stenosis and T7-T8 level with spinal canal stenosis 05/27/2021, patient seen eval examined during the rounds, patient remains on bronchodilator as needed, oxygen saturation 96-98% room air, denies any chest pain shortness of breath denies any cough or sputum production respiratory status remains stable, will observe patient off of IV antibiotics is gently being rehydrated 05/26/2021, patient seen eval reexamined, remains afebrile and hemodynamically stable, blood pressure slightly better controlled now oxygen saturation remains 96% on room air, patient remains on bronchodilator tolerating well as well as direct anticoagulant remains on oral antibiotics, getting iron supplements as well Patient is a 75-year-old female with prior medical history of COPD patient has one dementia and Alzheimer's disease not much data can be obtained from her, patient admitted into the hospital with the visual hallucination. Prior medical history significant for chronic atrial fibrillation on direct oral anticoagulation, history of asthma COPD dementia. She lives with her daughter who is a caregiver and power of criminal defense attorney, the last few days patient appetite has been poor not eating or drinking anything also refusing her medications. Lately she started having some visual hallucination and was not recognizing family members with dark stool for 3 days patient started having increasing shortness of breath and chest pain in addition patient has been weak and not able to ambulate patient daughter eventually has been advised to be seen and evaluated in emergency department labs were hemoglobin was 11.9 with normal WBC count came down to 9.2 repeat CBC has not been done, potassium has been 2.9 with replacement improved to 3.6 BUN/creatinine also improved with rehydration, lactic acid within normal limit stool for occult blood negative, leukocyte is trace positive nitrite was negative, currently patient is being treated with oral Plaques and continuation of direct oral anticoagulant as needed bronchodilators Objective - Vital Signs Vital signs: Vital Signs Temp 98.6 F 06/01/21 01:29 Pulse 66 06/01/21 01:29 Resp 15 06/01/21 01:29 BP 132/56 06/01/21 01:29 Pulse Ox 98 06/01/21 01:29 Intake & Output 05/31/21 06/01/21 06/01/21 18:59 06:59 18:59 Other: Voiding Method Bedside Commode # Voids 2 - Exam - Constitutional General appearance: average body habitus, cooperative, disheveled - EENT Eyes: EOMI, PERRLA ENT: normal oropharynx Ears: bilateral: normal - Neck Neck: normal ROM Carotids: bilateral: upstroke normal Thyroid: bilateral: normal size - Respiratory Respiratory: bilateral: CTA - Cardiovascular Rhythm: regular Heart sounds: normal: S1, S2 - Gastrointestinal General gastrointestinal: normal bowel sounds, soft - Integumentary Integumentary: normal turgor - Neurologic Neurologic: CNII-XII intact - Musculoskeletal Musculoskeletal: gait normal, generalized weakness, strength equal bilaterally - Psychiatric Pleasantly confused Psychiatric: appropriate affect - Labs CBC & Chem 7: 05/31/21 05:56 05/31/21 05:49 Assessment and Plan Assessment: Altered mental status 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
[2021-06-01] MEDS: NON FORMULARY DRUG (Budesonide/Glycopyr/Formoterol [Breztri Aerosphere Inhaler] 10.7 GM Gm INHALATION SCH ×2 (12:54→15:10)
[2021-06-01 13:07] LABS: African American GFR (CKD) 79 (>60 ml/min/1.73 sqM); Anion Gap 1 mmol/L; Blood Urea Nitrogen 13 mg/dL (7-17); Calcium 7.9 mg/dL (8.4-10.2); Carbon Dioxide 29 mmol/L (22-30); Chloride 108 mmol/L (98-107); Glucose 73 mg/dL (74-99); Non-African American GFR(CKD) 68 (>60 ml/min/1.73 sqM); Potassium 3.4 mmol/L (3.5-5.1); Sodium 138 mmol/L (137-145)
[2021-06-01 13:50] LABS: Anisocytosis Slight; Basophils % (A) 0 %; Eosinophils # (A) 0.1 k/uL (0-0.7); Eosinophils % (A) 1 %; HGB 10.4 gm/dL (11.4-16.0); Hypochromasia Marked; Lymphocytes # (A) 1.8 k/uL (1.0-4.8); Lymphocytes % (A) 21 %; MCH 31.5 pg (25.0-35.0); MCHC 30.6 g/dL (31.0-37.0); Macrocytosis Moderate; Mean Platelet Volume 9.2; Monocytes # (A) 0.6 k/uL (0-1.0); Monocytes % (A) 7 %; Neutrophils # (A) 5.9 k/uL (1.3-7.7); Neutrophils % (A) 69 %; Platelet Count 300 k/uL (150-450); RDW 17.4 % (11.5-15.5); WBC 8.6 k/uL (3.8-10.6)
[2021-06-01 13:57] LABS: MCV 102.9 fL (80.0-100.0)
[2021-06-01] MEDS: PANTOPRAZOLE 40 MG TABLET PO SCH (15:09)
[2021-06-01] MEDS: DOCUSATE ORAL SOLN 100 MG/10 ML CUP PO SCH ×2 (15:10→20:21)
[2021-06-01] MEDS: predniSONE 10 MG TAB PO SCH (15:10)
[2021-06-01] MEDS: HYDROcodone/APAP 10-325MG 1 EACH TAB PO SCH ×3 (15:10→20:20)
[2021-06-01] MEDS: METOPROLOL SUCCINATE (ER) 25 MG TAB.ER.24H PO SCH ×2 (15:10→20:21)
[2021-06-01] MEDS: APIXABAN 5 MG TAB PO SCH ×2 (15:10→20:20)
[2021-06-01] MEDS: AMIODARONE 100 MG TAB PO SCH (15:10)
--- NOTE | 2021-06-01 16:07 | P.PN ---
Subjective Progress Note Date: 06/01/21 The patient is seen at bedside and is accompanied with her daughter. Patient denies of any further back pain. Otherwise she feels she is doing well. Per daughter the patient could not handle Gabapentin since was making her confused so yesterday I stopped medication. Objective - Vital Signs Vital signs: Vital Signs Temp 98.6 F 06/01/21 14:00 Pulse 67 06/01/21 14:00 Resp 19 06/01/21 14:00 BP 142/87 06/01/21 14:00 Pulse Ox 97 06/01/21 14:00 Intake & Output 05/31/21 06/01/21 06/01/21 18:59 06:59 18:59 Other: Voiding Method Bedside Commode # Voids 2 - Labs CBC & Chem 7: 06/01/21 04:32 06/01/21 04:32 Labs: Abnormal Lab Results - Last 24 Hours (Table) 06/01/21 06/01/21 Range/Units 04:32 04:32 RBC 3.30 L (3.80-5.40) m/uL Hgb 10.4 L (11.4-16.0) gm/dL MCV 102.9 H D (80.0-100.0) fL MCHC 30.6 L (31.0-37.0) g/dL RDW 17.4 H (11.5-15.5) % Potassium 3.4 L (3.5-5.1) mmol/L Chloride 108 H (98-107) mmol/L Glucose 73 L (74-99) mg/dL Calcium 7.9 L (8.4-10.2) mg/dL Assessment and Plan Assessment: Low back pain Bilateral neuroforaminal stenosis at T7-T8 with minimal spinal canal stenosis on CT. Encephalopathy due to her advanced dementia as well as metabolic encephalopathy Advanced dementia History of atrial fibrillation on eliquis Hypotension on Midrin Hyperlipidemia History of aortic aneurysm Plan: Orthopedic team is on board PT and OT are consulted Continue neuro checks From the imaging report of the CT thorax and lumbar, I think patient will not get surgery especially with her advanced dementia and and has no severe compression or stenosis. But we'll defer the final decision to the orthopedic team. I spoke with PA from Orthopedic team and they stated they are not planning of any surgery and will have patient follow-up as outpatient. Gabapentin 100mg 1 tab tid is stopped since per daughter yesterday was making her confused. Consider EMG nerve conduction study of lower extremities as an outpatient. We'll defer the rest of medical management to the primary team. The plan is discussed with the and primary team.. No additional testing is needed. Please notify neurology team if any additional concerns. Suleman Chandler M.D. Neuro-hospitalist Time with Patient: Less than 30
[2021-06-01] MEDS: ONDANSETRON 4 MG/2 ML VIAL IVP PRN (17:28)
[2021-06-01] MEDS: MONTELUKAST 10 MG TAB PO SCH (20:20)
[2021-06-01] MEDS: ATORVASTATIN 20 MG TAB PO SCH (20:20)
[2021-06-01] MEDS: MELATONIN 3 MG TABLET PO PRN (20:25)
[2021-06-01] MEDS: METOCLOPRAMIDE 5 MG TAB PO SCH (21:28)
[2021-06-01] MEDS: LORazepam 0.5 MG TAB PO PRN (22:57)
[2021-06-02] MEDS: LACTATED RINGERS 1,000 ML IV SCH ×2 (04:20→04:21)
[2021-06-02] MEDS: DOCUSATE ORAL SOLN 100 MG/10 ML CUP PO SCH ×2 (08:16→20:56)
[2021-06-02] MEDS: MEGESTROL 400 MG/10 ML CUP PO SCH (08:16)
[2021-06-02] MEDS: predniSONE 10 MG TAB PO SCH (08:16)
[2021-06-02] MEDS: APIXABAN 5 MG TAB PO SCH ×2 (08:17→20:56)
[2021-06-02] MEDS: PANTOPRAZOLE 40 MG TABLET PO SCH (08:17)
[2021-06-02] MEDS: METOPROLOL SUCCINATE (ER) 25 MG TAB.ER.24H PO SCH ×2 (08:17→20:56)
[2021-06-02] MEDS: HYDROcodone/APAP 10-325MG 1 EACH TAB PO SCH ×3 (08:17→21:20)
[2021-06-02] MEDS: AMIODARONE 100 MG TAB PO SCH (08:17)
[2021-06-02] MEDS: METOCLOPRAMIDE 5 MG TAB PO SCH ×4 (08:17→20:56)
[2021-06-02] MEDS: POTASSIUM BICARB-CITRIC ACID 25 MEQ TABLET.EFF PO SCH (08:25)
[2021-06-02] MEDS: NON FORMULARY DRUG (Budesonide/Glycopyr/Formoterol [Breztri Aerosphere Inhaler] 10.7 GM Gm INHALATION SCH ×2 (09:03→20:28)
[2021-06-02 09:11] LABS: Anisocytosis Slight; Basophils % (A) 0 %; Eosinophils # (A) 0.1 k/uL (0-0.7); Eosinophils % (A) 1 %; HCT 34.7 % (34.0-46.0); HGB 10.6 gm/dL (11.4-16.0); Hypochromasia Marked; Lymphocytes # (A) 1.9 k/uL (1.0-4.8); Lymphocytes % (A) 23 %; MCH 30.9 pg (25.0-35.0); MCHC 30.4 g/dL (31.0-37.0); MCV 101.6 fL (80.0-100.0); Macrocytosis Moderate; Mean Platelet Volume 8.8; Monocytes # (A) 0.5 k/uL (0-1.0); Monocytes % (A) 6 %; Neutrophils # (A) 5.7 k/uL (1.3-7.7); Neutrophils % (A) 69 %; Platelet Count 317 k/uL (150-450); RBC 3.42 m/uL (3.80-5.40); RDW 17.8 % (11.5-15.5); WBC 8.3 k/uL (3.8-10.6)
--- NOTE | 2021-06-02 09:56 | US ---
EXAMINATION TYPE: US abdomen complete DATE OF EXAM: 06/02/2021 COMPARISON: US November 07, 2020. CT thoracolumbar spine May 08, 2021 CLINICAL HISTORY: emesis. Emesis. Cholecystectomy from prior studies.-Pt provided limited history. EXAM MEASUREMENTS: Liver Length: 14.0 cm CBD: 0.46 cm Spleen: 8.0 cm Right Kidney: 8.6 x 4.8 x 4.3 cm Left Kidney: 9.4 x 4.1 x 5.3 cm Exam is limited due to patient's pain level, positioning, and overlying bowel gas. Pancreas: Limited visibility of tail. Liver: Appears slightly coarse with increased echogenicity. Gallbladder: Hx cholecystectomy. Evidence for sonographic Srivastava's sign: No CBD: Portions seen appear wnl Spleen: Limited visibility. Right Kidney: Appears slightly small in size. Hypoechoic area seen lower pole: 1.6 x 1.6 x 1.5 cm. Hy perechoic focus seen lower pole: 0.5 x 0.4 x 0.5 cm. Left Kidney: Prominent pyramids. Hyperechoic area seen anteriorly could represent vessel versus othe r: 0.7 x 0.5 x 0.3 cm. Upper IVC: Appears wnl Abd Aorta: Distal portion and iliacs are obscured. No aneurysm in the visualized portion of aorta. IVC patent near hepatic dome. Visualized portion of p ancreas within normal limits. Visualized liver is slightly heterogeneous in appearance without focal mass or ductal dilatation. Gallbladder surgically absent. Kidneys show some cortical thinning and increased cortical echogenicity. No hydronephrosis. Spleen is not enlarged. IMPRESSION: No acute findings are evident.
[2021-06-02 09:58] LABS: ALT 9 U/L (4-34); AST 17 U/L (14-36); African American GFR (CKD) 81 (>60 ml/min/1.73 sqM); Albumin 2.7 g/dL (3.5-5.0); Albumin/Globulin Ratio 1.1; Alkaline Phosphatase 63 U/L (38-126); Anion Gap 5 mmol/L; Blood Urea Nitrogen 14 mg/dL (7-17); Calcium 8.2 mg/dL (8.4-10.2); Carbon Dioxide 28 mmol/L (22-30); Chloride 107 mmol/L (98-107); Globulin 2.5 g/dL; Glucose 102 mg/dL (74-99); Non-African American GFR(CKD) 70 (>60 ml/min/1.73 sqM); Sodium 140 mmol/L (137-145); Total Bilirubin 1.1 mg/dL (0.2-1.3); Total Protein 5.2 g/dL (6.3-8.2)
--- NOTE | 2021-06-02 10:08 | PN ---
PROGRESS NOTE She complains of acute encephalopathy. She has fallen. She has progressive emesis today. She is going to get a further possible scope with a GI specialist for an upper endoscopy for progressive vomiting. Ultrasound will be ordered. Continue with PT, OT. Oral Reglan will be started at 5 mg before meals and at bedtime. Continue with current treatments. Wait for GI recommendations. MMODL / IJN: [id number] /
[2021-06-02] MEDS: POTASSIUM CHLORIDE 10 MEQ in WATER FOR INJECTION 1 100ML.BAG IVPB SCH ×6 (10:54→17:26)
[2021-06-02] MEDS: LORazepam 0.5 MG TAB PO PRN (15:29)
--- NOTE | 2021-06-02 17:23 | P.PN ---
Subjective Progress Note Date: 06/02/21 Principal diagnosis: Altered mental status Visual hallucinations Electrolyte imbalance with severe hypokalemia COPD stable not in exacerbation Chronic atrial fibrillation Chronic anemia Hypertension hypertensive cardiovascular disease 06/02/2021, patient seen eval examined during the rounds labs reviewed medications reviewed care plan discussed, respiratory status remained stable, denies any chest pain or shortness of breath, denies any cough or sputum production, remains on room air, getting bronchodilator as needed, denies any pain in the back currently, denies any pain in the lower extremity daughter is present at bedside care plan discussed with the patient had no quietly at this morning sleepy 06/01/2021, patient seen and evaluated examined during the rounds labs reviewed medications reviewed, shortness of breath is stable, denies any cough or sputum production denies any chest pain, mild back pain is present, neurology and spine surgery following, 05/31/2021, patient seen eval examined during the rounds labs reviewed medications reviewed, patient denies any chest pain denies any leg pain some pain present at times on the back, neurology as well as orthopedic service has been following, breathing is stable, off of oxygen 05/30/2021, patient seen eval examined, patient has spinal stenosis, the relative care is being considered, no chest pain is present, some pain aches in the lower extremity have improved now 3 status stable on room air saturation 95- 98% breathing comfortably 05/29/2021, patient seen eval examined during the rounds labs reviewed medications reviewed care plan discussed, history status stable, denies any chest pain, now has some more achiness in the legs, respiratory status stable, on room air breathing comfortably neurology recommendation noted and appreciated 05/28/2021, patient seen eval reexamined during the rounds labs reviewed medications reviewed, patient fell down today has diffuse aches and pains BUT he has evaluated the patient CT of the T7 vertebra noted to have complete collapse and the sclerotic changes bilateral neuroforaminal stenosis and T7-T8 level with spinal canal stenosis 05/27/2021, patient seen eval examined during the rounds, patient remains on bronchodilator as needed, oxygen saturation 96-98% room air, denies any chest pain shortness of breath denies any cough or sputum production respiratory status remains stable, will observe patient off of IV antibiotics is gently being rehydrated 05/26/2021, patient seen eval reexamined, remains afebrile and hemodynamically stable, blood pressure slightly better controlled now oxygen saturation remains 96% on room air, patient remains on bronchodilator tolerating well as well as direct anticoagulant remains on oral antibiotics, getting iron supplements as well Patient is a 75-year-old female with prior medical history of COPD patient has one dementia and Alzheimer's disease not much data can be obtained from her, patient admitted into the hospital with the visual hallucination. Prior medical history significant for chronic atrial fibrillation on direct oral anticoagulation, history of asthma COPD dementia. She lives with her daughter who is a caregiver and power of associate attorney, the last few days patient appetite has been poor not eating or drinking anything also refusing her medications. Lately she started having some visual hallucination and was not recognizing family members with dark stool for 3 days patient started having increasing shortness of breath and chest pain in addition patient has been weak and not able to ambulate patient daughter eventually has been advised to be seen and evaluated in emergency department labs were hemoglobin was 11.9 with normal WBC count came down to 9.2 repeat CBC has not been done, potassium has been 2.9 with replacement improved to 3.6 BUN/creatinine also improved with rehydration, lactic acid within normal limit stool for occult blood negative, leukocyte is trace positive nitrite was negative, currently patient is being treated with oral Plaques and continuation of direct oral anticoagulant as needed bronchodilators Objective - Vital Signs Vital signs: Vital Signs Temp 98.1 F 06/02/21 13:34 Pulse 71 06/02/21 13:34 Resp 16 06/02/21 13:34 BP 134/81 06/02/21 13:34 Pulse Ox 98 06/02/21 13:34 Intake & Output 06/01/21 06/02/21 06/02/21 18:59 06:59 18:59 Intake Total 1080 100 Balance 1080 100 Weight 63.503 kg Intake: Intake, IV Titration 100 Amount Potassium Chloride 10 meq 100 In Water For Injection 1 100ml.bag @ 100 mls/hr IVPB Q1HR [facility] Rx#: [id number] Oral 1080 Other: Voiding Method Bedside Commode # Voids 5 1 # Bowel Movements 0 0 - Exam - Constitutional General appearance: average body habitus, cooperative, disheveled - EENT Eyes: EOMI, PERRLA ENT: normal oropharynx Ears: bilateral: normal - Neck Neck: normal ROM Carotids: bilateral: upstroke normal Thyroid: bilateral: normal size - Respiratory Respiratory: bilateral: CTA - Cardiovascular Rhythm: regular Heart sounds: normal: S1, S2 - Gastrointestinal General gastrointestinal: normal bowel sounds, soft - Integumentary Integumentary: normal turgor - Neurologic Neurologic: CNII-XII intact - Musculoskeletal Musculoskeletal: gait normal, generalized weakness, strength equal bilaterally - Psychiatric Pleasantly confused Psychiatric: appropriate affect - Labs CBC & Chem 7: 06/02/21 08:53 06/02/21 08:53 Labs: Abnormal Lab Results - Last 24 Hours (Table) 06/02/21 06/02/21 Range/Units 08:53 08:53 RBC 3.42 L (3.80-5.40) m/uL Hgb 10.6 L (11.4-16.0) gm/dL MCV 101.6 H (80.0-100.0) fL MCHC 30.4 L (31.0-37.0) g/dL RDW 17.8 H (11.5-15.5) % Potassium 3.0 L (3.5-5.1) mmol/L Glucose 102 H (74-99) mg/dL Calcium 8.2 L (8.4-10.2) mg/dL Total Protein 5.2 L (6.3-8.2) g/dL Albumin 2.7 L (3.5-5.0) g/dL Assessment and Plan Assessment: Altered mental status 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
[2021-06-02] MEDS: MONTELUKAST 10 MG TAB PO SCH (20:56)
[2021-06-02] MEDS: ATORVASTATIN 20 MG TAB PO SCH (20:56)
[2021-06-02] MEDS: MELATONIN 3 MG TABLET PO PRN (21:23)
[2021-06-02] MEDS: SODIUM CHLORIDE 0.9% 1,000 ML IV SCH (23:45)
[2021-06-02] MEDS ORDERED: QUEtiapine 50 MG TAB PO SCH (23:45)
[2021-06-03 06:39] LABS: Anisocytosis Slight; Basophils % (A) 0 %; Eosinophils % (A) 0 %; HCT 34.4 % (34.0-46.0); HGB 10.7 gm/dL (11.4-16.0); Hypochromasia Marked; Lymphocytes # (A) 2.1 k/uL (1.0-4.8); Lymphocytes % (A) 21 %; MCH 31.6 pg (25.0-35.0); MCHC 31.2 g/dL (31.0-37.0); MCV 101.1 fL (80.0-100.0); Macrocytosis Moderate; Mean Platelet Volume 8.9; Monocytes # (A) 0.7 k/uL (0-1.0); Monocytes % (A) 7 %; Neutrophils % (A) 71 %; Platelet Count 293 k/uL (150-450); WBC 9.9 k/uL (3.8-10.6)
[2021-06-03 06:42] LABS: ALT 7 U/L (4-34); AST 23 U/L (14-36); African American GFR (CKD) 87 (>60 ml/min/1.73 sqM); Albumin 2.7 g/dL (3.5-5.0); Albumin/Globulin Ratio 1.1; Alkaline Phosphatase 51 U/L (38-126); Anion Gap 5 mmol/L; Blood Urea Nitrogen 12 mg/dL (7-17); Calcium 8.5 mg/dL (8.4-10.2); Carbon Dioxide 21 mmol/L (22-30); Chloride 113 mmol/L (98-107); Globulin 2.5 g/dL; Glucose 77 mg/dL (74-99); Non-African American GFR(CKD) 76 (>60 ml/min/1.73 sqM); Sodium 139 mmol/L (137-145); Total Bilirubin 1.4 mg/dL (0.2-1.3); Total Protein 5.2 g/dL (6.3-8.2)
[2021-06-03 06:43] LABS: Potassium 4.9 mmol/L (3.5-5.1)
[2021-06-03] MEDS: PANTOPRAZOLE 40 MG TABLET PO SCH (08:30)
[2021-06-03] MEDS: APIXABAN 5 MG TAB PO SCH ×2 (08:30→22:01)
[2021-06-03] MEDS: HYDROcodone/APAP 10-325MG 1 EACH TAB PO SCH ×3 (08:30→22:14)
[2021-06-03] MEDS: POTASSIUM CHLORIDE ER 20 MEQ TAB.ER PO SCH (08:30)
[2021-06-03] MEDS: METOCLOPRAMIDE 5 MG TAB PO SCH ×4 (08:30→22:01)
[2021-06-03] MEDS: DOCUSATE ORAL SOLN 100 MG/10 ML CUP PO SCH ×2 (08:31→22:02)
[2021-06-03] MEDS: METOPROLOL SUCCINATE (ER) 25 MG TAB.ER.24H PO SCH ×2 (08:31→22:01)
[2021-06-03] MEDS: predniSONE 10 MG TAB PO SCH (08:31)
[2021-06-03] MEDS: AMIODARONE 100 MG TAB PO SCH (08:34)
[2021-06-03] MEDS: MEGESTROL 400 MG/10 ML CUP PO SCH ×2 (08:41→22:01)
[2021-06-03] MEDS: NON FORMULARY DRUG (Budesonide/Glycopyr/Formoterol [Breztri Aerosphere Inhaler] 10.7 GM Gm INHALATION SCH ×2 (08:55→20:48)
--- NOTE | 2021-06-03 09:11 | PN ---
PROGRESS NOTE This is a 75-year-old -[place] female, became more sleepy and lethargic. We are going to hold BuSpar and Xanax, as this is making her more confused. Will increase Seroquel at night for sleeping. Cardiovascular S1-S2. Lungs with scattered rhonchi and wheeze. Hematology negative Homans. Musculoskeletal: Tenderness with palpation of the spinal lesion in the back. ASSESSMENT: 1. Chronic obstructive pulmonary disease. 2. Congestive heart failure. 3. Dementia. 4. Anxiety. 5. Degenerative disk disease. 6. Possible thoracic fracture. Continue current orders PT/OT, Cardiology for chest pain, even though she has negative troponins. MMODL / IJN: [id number] /
--- NOTE | 2021-06-03 11:32 | P.CRDCN ---
History of Present Illness History of present illness: This is a pleasant 75-year-old with past medical history significant for postural hypotension, chronic kidney disease, hypertension, dementia, paroxysmal atrial fibrillation on Eliquis, COVID-19 infection spring 2020, Bronchitis. She follows with Dr. Smart. We are being consulted for chest pain. Patient initially presented to the emergency department on 05/22/2021 with several compla ints. Family was concerned that patient was not eating or drinking, refused to take medications, visual hallucinations, black stools, concern for possible advancing dementia. Patient was dehydrated on admission. She also had been having back pain. Orthopedics was consulted. CT of the thoracic and lumbar spine do demonstrated previous lumbar fusion surgery at L5-S1 as well as compression deformities at T7, T12 and L4. Per Ortho these were chronic changes and no acute changes. Yesterday, apparently patient had chest discomfort, non-radiating, non- exertional per family. Per family it appeared their mother was anxious. Troponin was drawn which was negative. EKG was performed which revealed sinus rhythm, heart rate 75, no significant ST or T-wave abnormalities suggestive ischemia. Prior EKG was similar findings. Of noted, patient was admitted to the hospital in November 2020 with complaints of chest pain and shortness of breath. She was evaluated by nuclear Stress test and echocardiogram. Nuclear stress test showed mild ischemia. She was evaluated Dr. Cotton, nuclear stress test was reviewed by cardiology and medical therapy was advised. DIAGNOSTICS EKG on admission revealed sinus rhythm heart rate 75, nonspecific ST segment abnormalities. No significant ST ST wave changes suggest acute ischemia Most recent echo October 2020 revealed EF 5560% Laboratory data reviewed-troponin negative, d-dimer negative, WBC 9.9, hemoglobin 10.7, platelets 293, sodium 139, potassium 4.9, BUN 12, serum creatinine 0.7, magnesium 1.9 REVIEW OF SYSTEMS At the time of my exam: Not able to obtain accurate review of systems due to mental status PHYSICAL EXAMINATION Vital signs reviewed. CONSTITUTIONAL: No apparent distress. HEENT: Head is normocephalic. Pupils are equal, round. Sclerae anicteric. Mucous membranes of the mouth are moist. No JVD. No carotid bruit. CHEST EXAMINATION: Lungs with poor air exchange bilaterally bilaterally to auscultation. HEART EXAMINATION: Regular rate and rhythm. S1, S2 heard. No murmurs, gallops or rub. ABDOMEN: Soft, nontender. Positive bowel sounds. EXTREMITIES: 2+ peripheral pulses, no lower extremity edema and no calf tenderness. NEUROLOGIC EXAMINATION: Patient is awake, alert and oriented to person and knows she is in the hospital, poor recall ASSESSMENT Episode of chest pain on 06/02/21, resolved, does not appear to be cardiac in etiology. Troponin negative. No acute ischemic findings on EKG. Dementia Altered mental status Electrolyte imbalance, improved History asthma/COPD Paroxysmal atrial fibrillation on Eliquis, currently maintaining sinus mechanism History of Hypertension History of postural hypotension Chronic kidney disease Previous COVID-19 infection Spring 2020 Bronchitis diagnosed at [facility] [place] T7, T12, L4 compression fractures, chronic in nature per orthopedics PLAN From a cardiology perspective, patient denying any chest pain, however, with dementia patient cannot recall having any chest discomfort. She is currently comfortable. EKG with no evidence of acute ischemia, troponin negative. Echo S eptember 2020 revealed EF 5560%. She does not appear to be in heart failure on exam. We will follow the patient as needed. Please reach out with any further questions or concerns. Patient to follow up outpatient with Dr. Smart Nurse practitioner note has been reviewed by physician. Signing provider agrees with the documented findings, assessment, and plan of care. Past Medical History Past Medical History: Atrial Fibrillation, Asthma, COPD, Dementia, Hyperlipidemia, Hypertension, Memory Impairment, Renal Disease, Seizure Disorder, Vascular Disorder Additional Past Medical History / Comment(s): Aortic aneurysm, daughter states past fluid around lung that was drained off, CKD staf III, nephrolithiasis, UTI/cystitis, one seizure in 2019, anemia, chronic back pain, bilateral ankle edema, FALLS History of Any Multi-Drug Resistant Organisms: None Reported Past Surgical History: Back Surgery, Hysterectomy, Orthopedic Surgery, Tonsillectomy, Tubal Ligation Additional Past Surgical History / Comment(s): D&C, EGD, colonoscopy, L hip hemiarthroplasty d/t fracure, R shoulder surgery d/t fracture-has hardware Past Anesthesia/Blood Transfusion Reactions: Motion Sickness Additional Past Anesthesia/Blood Transfusion Reaction / Comment(s): Pt has clausterphobia. Past Psychological History: Anxiety Smoking Status: Never smoker Past Alcohol Use History: None Reported Past Drug Use History: None Reported - Past Family History Mother Family Medical History: Hypertension Father Family Medical History: Coronary Artery Disease (CAD), Myocardial Infarction (IN) Additional Family Medical History / Comment(s): Father of a IN in his 70s. Medications and Allergies Home Medications Medication Instructions Recorded Confirmed Type Montelukast Sodium [Singulair] 10 mg PO HS 10/01/19 05/22/21 History Albuterol Sulfate [Ventolin HFA] 2 puff INHALATION RT-QID PRN 05/05/20 05/22/21 History Apixaban [Eliquis] 5 mg PO BID #60 tab 05/06/20 05/22/21 Rx Omeprazole 20 mg PO DAILY 10/24/20 05/22/21 History Amiodarone [Cordarone] 100 mg PO BID 11/05/20 05/22/21 History Atorvastatin [Lipitor] 20 mg PO HS 90 Days #90 tab 11/09/20 05/22/21 Rx Budesonide/Glycopyr/Formoterol 2 puff INHALATION RT-BID 02/10/21 05/22/21 History [Breztri Aerosphere Inhaler] Furosemide [Lasix] 40 mg PO DAILY 02/10/21 05/22/21 History Metoprolol Succinate (ER) [Toprol 25 mg PO BID 02/10/21 05/22/21 History XL] busPIRone HCL [Buspar] 7.5 mg PO BID PRN 02/10/21 05/22/21 History Megestrol [Megace] 40 mg PO BID 03/31/21 05/22/21 History Promethazine HCl/Codeine 5 ml PO Q6H PRN 03/31/21 05/22/21 History [Promethazine-Codeine Syrup] traZODone HCL [Desyrel] 50 mg PO HS PRN 03/31/21 05/22/21 History Potassium Chloride ER [K-Dur 20] 20 meq PO DAILY 90 Days #90 tablet 04/03/21 05/22/21 Rx Ferrous Sulfate [Feosol] 325 mg PO BID 05/22/21 05/22/21 History HYDROcodone/APAP 10-325MG [[place] 1 tab PO TID 05/22/21 05/22/21 History 10-325] Midodrine HCl 5 mg PO TID 05/22/21 05/22/21 History Nitroglycerin Sl Tabs [Nitrostat] 0.4 mg SL Q5M PRN 05/22/21 05/22/21 History predniSONE 10 mg PO DAILY 05/22/21 05/22/21 History Allergies Allergy/AdvReac Type Severity Reaction Status Date / Time levofloxacin Allergy Anaphylaxis Verified 05/22/21 15:12 memantine [From Namenda] Allergy Rash/Hives Verified 05/22/21 15:12 lisinopril AdvReac Unknown Verified 05/22/21 15:12 Physical Exam Vitals: Vital Signs Temp Pulse Resp BP Pulse Ox 06/03/21 08:00 98.6 F 77 16 152/95 100 06/03/21 05:14 158/103 06/03/21 05:10 98.6 F 77 16 174/111 98 06/02/21 19:26 16 06/02/21 18:53 97.9 F 75 18 165/119 98 06/02/21 13:34 98.1 F 71 16 134/81 98 Intake and Output 06/02/21 06/03/21 06/03/21 22:59 06:59 14:59 Other: Voiding Method Bedside Commode # Voids 2 15 # Bowel Movements 0 Results 06/03/21 05:14 06/03/21 05:14 Cardiac Enzymes 06/02/21 06/03/21 Range/Units 15:43 05:14 AST 23 (14-36) U/L Troponin I 0.018 (0.000-0.034) ng/mL CBC 06/03/21 Range/Units 05:14 WBC 9.9 (3.8-10.6) k/uL RBC 3.40 L (3.80-5.40) m/uL Hgb 10.7 L (11.4-16.0) gm/dL Hct 34.4 (34.0-46.0) % Plt Count 293 (150-450) k/uL Comprehensive Metabolic Panel 06/03/21 Range/Units 05:14 Sodium 139 (137-145) mmol/L Potassium 4.9 (3.5-5.1) mmol/L Chloride 113 H (98-107) mmol/L Carbon Dioxide 21 L (22-30) mmol/L BUN 12 (7-17) mg/dL Creatinine 0.77 (0.52-1.04) mg/dL Glucose 77 (74-99) mg/dL Calcium 8.5 (8.4-10.2) mg/dL AST 23 (14-36) U/L ALT 7 (4-34) U/L Alkaline Phosphatase 51 (38-126) U/L Total Protein 5.2 L (6.3-8.2) g/dL Albumin 2.7 L (3.5-5.0) g/dL Current Medications Generic Name Dose Route Start Last Admin Trade Name Freq PRN Reason Stop Dose Admin Acetaminophen 650 mg 05/22/21 20:16 Acetaminophen Tab 325 Mg Tab PO Q6HR PRN Mild Pain or Fever > 100.5 Hydrocodone Bitart/Acetaminophen 1 each 05/22/21 22:00 06/03/21 08:30 Hydrocodone/Apap 10-325mg 1 Each Tab PO 1 each TID MACI Administration Albuterol Sulfate 2.5 mg 05/22/21 19:30 05/25/21 23:37 Albuterol Nebulized 2.5 Mg/3 Ml INHALATION 2.5 mg RT-QID PRN Administration Shortness Of Breath Amiodarone HCl 100 mg 05/24/21 09:00 06/03/21 08:34 Amiodarone 100 Mg Tab PO 100 mg DAILY MACI Administration Apixaban 5 mg 05/22/21 21:00 06/03/21 08:30 Apixaban 5 Mg Tab PO 5 mg BID MACI Administration Protocol Atorvastatin Calcium 20 mg 05/25/21 22:30 06/02/21 20:56 Atorvastatin 20 Mg Tab PO 20 mg HS MACI Administration Docusate Sodium 100 mg 05/30/21 21:00 06/03/21 08:31 Docusate Oral Soln 100 Mg/10 Ml Cup PO Not Given BID MACI Sodium Chloride 1,000 mls @ 75 mls/hr 06/02/21 23:45 06/02/21 23:45 Saline 0.9% IV 75 mls/hr .[id number] MACI Administration Lactulose 20 gm 05/22/21 20:16 05/28/21 11:20 Lactulose 20 Gm/30 Ml Cup PO 20 gm DAILY PRN Administration Constipation Megestrol Acetate 400 mg 05/27/21 19:30 06/03/21 08:41 Megestrol 400 Mg/10 Ml Cup PO 400 mg DAILY MACI Administration Melatonin 3 mg 05/22/21 20:16 06/02/21 21:23 Melatonin 3 Mg Tablet PO 3 mg HS PRN Administration Insomnia Metoclopramide HCl 5 mg 06/01/21 21:00 06/03/21 08:30 Metoclopramide 5 Mg Tab PO 5 mg ACHS MACI Administration Metoprolol Succinate 25 mg 05/22/21 21:00 06/03/21 08:31 Metoprolol Succinate (Er) 25 Mg Tab.Er.24h PO 25 mg BID MACI Administration Montelukast Sodium 10 mg 05/22/21 21:00 06/02/21 20:56 Montelukast 10 Mg Tab PO 10 mg HS MACI Administration Naloxone HCl 0.2 mg 05/22/21 16:05 Naloxone 0.4 Mg/Ml 1 Ml Vial IV Q2M PRN Opioid Reversal Nitroglycerin 0.4 mg 05/22/21 19:35 06/02/21 14:45 Nitroglycerin Sl Tabs 0.4 Mg Tab SUBLINGUAL 0.4 mg Q5M PRN Administration Chest Pain Non-Formulary Medication 2 puff 05/22/21 20:00 06/03/21 08:55 Budesonide/Glycopyr/Formoterol [Breztri Aerosphere Inhaler] INHALATION 2 puff RT-BID MACI Administration Ondansetron HCl 4 mg 05/31/21 09:27 06/01/21 17:28 Ondansetron 4 Mg/2 Ml Vial IVP 4 mg Q6HR PRN Administration Nausea And Vomiting Pantoprazole Sodium 40 mg 05/23/21 07:30 06/03/21 08:30 Pantoprazole 40 Mg Tablet PO 40 mg [id number] MACI Administration Potassium Chloride 20 meq 06/03/21 09:00 06/03/21 08:30 Potassium Chloride Er 20 Meq Tab.Er PO 20 meq DAILY MACI Administration Prednisone 10 mg 05/23/21 09:00 06/03/21 08:31 Prednisone 10 Mg Tab PO 10 mg DAILY MACI Administration Quetiapine Fumarate 50 mg 06/02/21 23:45 06/02/21 23:45 Quetiapine 50 Mg Tab PO 50 mg HS MACI Administration Intake and Output 06/02/21 06/03/21 06/03/21 22:59 06:59 14:59 Other: Voiding Method Bedside Commode # Voids 2 15 # Bowel Movements 0 06/03/21 05:14 06/03/21 05:14
[2021-06-03] MEDS: SODIUM CHLORIDE 0.9% 1,000 ML IV SCH (11:46)
--- NOTE | 2021-06-03 18:17 | P.PN ---
Subjective Progress Note Date: 06/03/21 Principal diagnosis: Altered mental status Visual hallucinations Electrolyte imbalance with severe hypokalemia COPD stable not in exacerbation Chronic atrial fibrillation Chronic anemia Hypertension hypertensive cardiovascular disease 06/03/2021, patient seen eval examined during the rounds labs reviewed medications reviewed care plan discussed, shortness of breath is stable, denies any chest pain and back pain or leg pain, resting comfortably, oxygen saturation remains 95%, patient remains on bronchodilators and direct oral anticoagulant cardiology has evaluated the patient no intervention has been recommended 06/02/2021, patient seen eval examined during the rounds labs reviewed medications reviewed care plan discussed, respiratory status remained stable, denies any chest pain or shortness of breath, denies any cough or sputum production, remains on room air, getting bronchodilator as needed, denies any pain in the back currently, denies any pain in the lower extremity daughter is present at bedside care plan discussed with the patient had no quietly at this morning sleepy 06/01/2021, patient seen and evaluated examined during the rounds labs reviewed medications reviewed, shortness of breath is stable, denies any cough or sputum production denies any chest pain, mild back pain is present, neurology and spine surgery following, 05/31/2021, patient seen eval examined during the rounds labs reviewed medications reviewed, patient denies any chest pain denies any leg pain some pain present at times on the back, neurology as well as orthopedic service has been following, breathing is stable, off of oxygen 05/30/2021, patient seen eval examined, patient has spinal stenosis, the relative care is being considered, no chest pain is present, some pain aches in the lower extremity have improved now 3 status stable on room air saturation 95- 98% breathing comfortably 05/29/2021, patient seen eval examined during the rounds labs reviewed medicatio ns reviewed care plan discussed, history status stable, denies any chest pain, now has some more achiness in the legs, respiratory status stable, on room air breathing comfortably neurology recommendation noted and appreciated 05/28/2021, patient seen eval reexamined during the rounds labs reviewed medications reviewed, patient fell down today has diffuse aches and pains BUT he has evaluated the patient CT of the T7 vertebra noted to have complete collapse and the sclerotic changes bilateral neuroforaminal stenosis and T7-T8 level with spinal canal stenosis 05/27/2021, patient seen eval examined during the rounds, patient remains on bronchodilator as needed, oxygen saturation 96-98% room air, denies any chest pain shortness of breath denies any cough or sputum production respiratory stat us remains stable, will observe patient off of IV antibiotics is gently being rehydrated 05/26/2021, patient seen eval reexamined, remains afebrile and hemodynamically stable, blood pressure slightly better controlled now oxygen saturation remains 96% on room air, patient remains on bronchodilator tolerating well as well as direct anticoagulant remains on oral antibiotics, getting iron supplements as well Patient is a 75-year-old female with prior medical history of COPD patient has one dementia and Alzheimer's disease not much data can be obtained from her, patient admitted into the hospital with the visual hallucination. Prior medical history significant for chronic atrial fibrillation on direct oral anticoagulation, history of asthma COPD dementia. She lives with her daughter parisa ceballos is a caregiver and power of commercial real estate attorney, the last few days patient appetite has been poor not eating or drinking anything also refusing her medications. Lately she started having some visual hallucination and was not recognizing family members with dark stool for 3 days patient started having increasing shortness of breath and chest pain in addition patient has been weak and not able to ambulate patient daughter eventually has been advised to be seen and evaluated in emergency department labs were hemoglobin was 11.9 with normal WBC count came down to 9.2 repeat CBC has not been done, potassium has been 2.9 with replacement improved to 3.6 BUN/creatinine also improved with rehydration, lact ic acid within normal limit stool for occult blood negative, leukocyte is trace positive nitrite was negative, currently patient is being treated with oral [place] and continuation of direct oral anticoagulant as needed bronchodilators Objective - Vital Signs Vital signs: Vital Signs Temp 98.2 F 06/03/21 14:00 Pulse 70 06/03/21 14:00 Resp 17 06/03/21 14:00 BP 129/80 06/03/21 14:00 Pulse Ox 99 06/03/21 14:00 Intake & Output 06/02/21 06/03/21 06/03/21 18:59 06:59 18:59 Intake Total 100 Balance 100 Weight 63.503 kg Intake: Intake, IV Titration 100 Amount Potassium Chloride 10 meq 100 In Water For Injection 1 100ml.bag @ 100 mls/hr IVPB Q1HR MACI Rx#: [id number] Other: Voiding Method Bedside Commode # Voids 15 8 # Bowel Movements 0 - Exam - Constitutional General appearance: average body habitus, cooperative, disheveled - EENT Eyes: EOMI, PERRLA ENT: normal oropharynx Ears: bilateral: normal - Neck Neck: normal ROM Carotids: bilateral: upstroke normal Thyroid: bilateral: normal size - Respiratory Respiratory: bilateral: CTA - Cardiovascular Rhythm: regular Heart sounds: normal: S1, S2 - Gastrointestinal General gastrointestinal: normal bowel sounds, soft - Integumentary Integumentary: normal turgor - Neurologic Neurologic: CNII-XII intact - Musculoskeletal Musculoskeletal: gait normal, generalized weakness, strength equal bilaterally - Psychiatric Pleasantly confused Psychiatric: appropriate affect - Labs CBC & Chem 7: 06/03/21 05:14 06/03/21 05:14 Labs: Abnormal Lab Results - Last 24 Hours (Table) 06/03/21 06/03/21 Range/Units 05:14 05:14 RBC 3.40 L (3.80-5.40) m/uL Hgb 10.7 L (11.4-16.0) gm/dL MCV 101.1 H (80.0-100.0) fL RDW 18.0 H (11.5-15.5) % Chloride 113 H (98-107) mmol/L Carbon Dioxide 21 L (22-30) mmol/L Total Bilirubin 1.4 H (0.2-1.3) mg/dL Total Protein 5.2 L (6.3-8.2) g/dL Albumin 2.7 L (3.5-5.0) g/dL Assessment and Plan Assessment: Altered mental status 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
[2021-06-03] MEDS ORDERED: MELATONIN 5 MG TABLET PO SCH (21:00)
[2021-06-03] MEDS: ATORVASTATIN 20 MG TAB PO SCH (22:01)
[2021-06-03] MEDS: MONTELUKAST 10 MG TAB PO SCH (22:01)
[2021-06-04] MEDS: HYDROcodone/APAP 10-325MG 1 EACH TAB PO SCH ×2 (01:52→08:28)
[2021-06-04 05:04] VITALS: PULSE 76
[2021-06-04] MEDS: METOCLOPRAMIDE 5 MG TAB PO SCH ×2 (08:27→12:20)
[2021-06-04] MEDS: PANTOPRAZOLE 40 MG TABLET PO SCH (08:28)
[2021-06-04] MEDS: predniSONE 10 MG TAB PO SCH (08:28)
[2021-06-04] MEDS: AMIODARONE 100 MG TAB PO SCH (08:30)
[2021-06-04] MEDS: DOCUSATE ORAL SOLN 100 MG/10 ML CUP PO SCH (08:30)
[2021-06-04] MEDS: APIXABAN 5 MG TAB PO SCH (08:30)
[2021-06-04] MEDS: POTASSIUM CHLORIDE ER 20 MEQ TAB.ER PO SCH (08:30)
[2021-06-04] MEDS: MEGESTROL 400 MG/10 ML CUP PO SCH (08:30)
[2021-06-04] MEDS: METOPROLOL SUCCINATE (ER) 25 MG TAB.ER.24H PO SCH (08:30)
[2021-06-04] MEDS: NON FORMULARY DRUG (Budesonide/Glycopyr/Formoterol [Breztri Aerosphere Inhaler] 10.7 GM Gm INHALATION SCH (08:53)
[2021-06-04] MEDS ORDERED: HYDROcodone/APAP 5-325MG 1 EACH TAB PO PRN (12:33)
--- NOTE | 2021-06-04 13:47 | DS ---
DISCHARGE SUMMARY This patient came in with atypical chest pain, dizziness, near-syncope, COPD exacerbation, shortness of breath, dehydration, dementia, failure to thrive. She was treated for orthostatic hypotension. Medications were adjusted. She was seen by Neurovascular Surgery. She will need vertebroplasty as an outpatient. She has difficulty with any ambulation. She was falling down just standing on the side of the bed. She had neurologic workup. We held a lot of her medications. Her appetite is very poor. She is not eating. She had a gastroparesis flare. The only thing that worked for nausea was Reglan, which we placed her on. She is still eating very minimum, is confused a lot. She is going to have to go to the skilled nursing for physical therapy prior to vertebroplasty, as she is unable to ambulate and she is not eating well and she is very confused, although it has cleared up a little bit. She has dementia with delirium, metabolic encephalopathy. Prognosis is guarded. HOME MEDICINES: 1. Nitroglycerin sublingual p.r.n. for chest pain 0.4 mg. 2. Prednisone 10 mg daily. 3. Lipitor 20 mg daily. 4. Eliquis 5 mg b.i.d. 5. Ventolin HFA 2 puffs q.i.d. p.r.n. 6. Toprol-XL 25 b.i.d. 7. Singulair 10 mg daily. 8. 2 puffs b.i.d. 9. Toprol-XL 25 b.i.d. 10.Albuterol nebulizer updrafts q.i.d. p.r.n. 11.Reglan 5 mg before meals and at bedtime. 12.Protonix 40 mg daily. 13.K-Dur 20 mEq daily. 14.Cordarone 100 mg daily. 15.Lactulose 20 grams daily p.r.n. constipation. 16.[place] 5/325 one every 6 to 8 hours p.r.n. for pain. 17.Melatonin 5 mg daily. 18.Megace 400 mg b.i.d. Diet or nutritional supplements t.i.d. like Boost. Do some orthostatic checks on her blood pressure. Get PT/OT involved. Dysphagia level 1 pureed diet. Make sure her head of bed is up 30 degrees all the time. She sits up with meals. PT/OT. Condition guarded. MMRUSTY / IJN: [id number] /
[2021-06-04 14:22] VITALS: BP 127/83; RESP 16; TEMP 98.8
--- NOTE | 2021-06-04 14:51 | P.PN ---
Subjective Progress Note Date: 06/04/21 Principal diagnosis: Altered mental status Visual hallucinations Electrolyte imbalance with severe hypokalemia COPD stable not in exacerbation Chronic atrial fibrillation Chronic anemia Hypertension hypertensive cardiovascular disease 06/04/2021, patient seen eval examined during the rounds labs reviewed medications reviewed care plan discussed, patient remains pleasantly confused no obvious distress present no shortness of breath, patient remains afebrile, hemodynamically stable with saturation of 97%, respiratory status stable, patient remains on pain medicine as needed 06/03/2021, patient seen eval examined during the rounds labs reviewed medications reviewed care plan discussed, shortness of breath is stable, denies any chest pain and back pain or leg pain, resting comfortably, oxygen saturation remains 95%, patient remains on bronchodilators and direct oral anticoagulant cardiology has evaluated the patient no intervention has been recommended 06/02/2021, patient seen eval examined during the rounds labs reviewed medications reviewed care plan discussed, respiratory status remained stable, denies any chest pain or shortness of breath, denies any cough or sputum production, remains on room air, getting bronchodilator as needed, denies any pain in the back currently, denies any pain in the lower extremity daughter is present at bedside care plan discussed with the patient had no quietly at this morning sleepy 06/01/2021, patient seen and evaluated examined during the rounds labs reviewed medications reviewed, shortness of breath is stable, denies any cough or sputum production denies any chest pain, mild back pain is present, neurology and spine surgery following, 05/31/2021, patient seen eval examined during the rounds labs reviewed med ications reviewed, patient denies any chest pain denies any leg pain some pain present at times on the back, neurology as well as orthopedic service has been following, breathing is stable, off of oxygen 05/30/2021, patient seen eval examined, patient has spinal stenosis, the relative care is being considered, no chest pain is present, some pain aches in the lower extremity have improved now 3 status stable on room air saturation 95- 98% breathing comfortably 05/29/2021, patient seen eval examined during the rounds labs reviewed medications reviewed care plan discussed, history status stable, denies any chest pain, now has some more achiness in the legs, respiratory status stable, on room air breathing comfortably neurology recommendation noted and appreciated 05/28/2021, patient seen eval reexamined during the rounds labs reviewed medications reviewed, patient fell down today has diffuse aches and pains BUT he has evaluated the patient CT of the T7 vertebra noted to have complete collapse and the sclerotic changes bilateral neuroforaminal stenosis and T7-T8 level with spinal canal stenosis 05/27/2021, patient seen eval examined during the rounds, patient remains on bronchodilator as needed, oxygen saturation 96-98% room air, denies any chest pain shortness of breath denies any cough or sputum production respiratory status remains stable, will observe patient off of IV antibiotics is gently being rehydrated 05/26/2021, patient seen eval reexamined, remains afebrile and hemodynamically stable, blood pressure slightly better controlled now oxygen saturation remains 96% on room air, patient remains on bronchodilator tolerating well as well as direct anticoagulant remains on oral antibiotics, getting iron supplements as well Patient is a 75-year-old female with prior medical history of COPD patient has one dementia and Alzheimer's disease not much data can be obtained from her, patient admitted into the hospital with the visual hallucination. Prior medical history significant for chronic atrial fibrillation on direct oral anticoagulation, history of asthma COPD dementia. She lives with her daughter who is a caregiver and power of managing attorney, the last few days patient appetite has been poor not eating or drinking anything also refusing her medications. Lately she started having some visual hallucination and was not recognizing family members with dark stool for 3 days patient started having increasing shortness of breath and chest pain in addition patient has been weak and not able to ambulate patient daughter eventually has been advised to be seen and evaluated in emergency department labs were hemoglobin was 11.9 with normal WBC count came down to 9.2 repeat CBC has not been done, potassium has been 2.9 with replacement improved to 3.6 BUN/creatinine also improved with rehydration, lactic acid within normal limit stool for occult blood negative, leukocyte is trace positive nitrite was negative, currently patient is being treated with oral Plaques and continuation of direct oral anticoagulant as needed bronchodilators Objective - Vital Signs Vital signs: Vital Signs Temp 98.8 F 06/04/21 14:00 Pulse 76 06/04/21 14:00 Resp 16 06/04/21 14:00 BP 127/83 06/04/21 14:00 Pulse Ox 97 06/04/21 14:00 Intake & Output 06/03/21 06/04/21 06/04/21 18:59 06:59 18:59 Other: Voiding Method Bedside Commode # Voids 8 - Exam - Constitutional General appearance: average body habitus, cooperative, disheveled - EENT Eyes: EOMI, PERRLA ENT: normal oropharynx Ears: bilateral: normal - Neck Neck: normal ROM Carotids: bilateral: upstroke normal Thyroid: bilateral: normal size - Respiratory Respiratory: bilateral: CTA - Cardiovascular Rhythm: regular Heart sounds: normal: S1, S2 - Gastrointestinal General gastrointestinal: normal bowel sounds, soft - Integumentary Integumentary: normal turgor - Neurologic Neurologic: CNII-XII intact - Musculoskeletal Musculoskeletal: gait normal, generalized weakness, strength equal bilaterally - Psychiatric Pleasantly confused Psychiatric: appropriate affect - Labs CBC & Chem 7: 06/03/21 05:14 06/03/21 05:14 Assessment and Plan Assessment: Altered mental status, stabilized and improved 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 and sclerotic changes Visual hallucinations, stabilized and improved Electrolyte imbalance with severe hypokalemia COPD stable not in exacerbation Chronic atrial fibrillation Chronic anemia Hypertension hypertensive cardiovascular disease Plan: Neurology recommendation noted appreciated Continue deep breathing exercise incentive spirometry Bronchodilators as needed Supportive care replace electrolytes as needed Increase activity as tolerated Anticoagulation and DVT prophylaxis with direct oral anticoagulant Further plan of care as per clinical response of the patient Time with Patient: Greater than 30
== END 2021-06-04 16:30 | DRG 682 ==
LOC: EC 12:57 → EEVIPCON 12:57 → 4SSUR 16:05
PROVIDERS: ADMIT Family Medicine; ATTEND Family Medicine
DX: N17.9 Acute kidney failure, unspecified (principal); G93.41 Metabolic encephalopathy; N30.00 Acute cystitis without hematuria; E44.1 Mild protein-calorie malnutrition; M48.04 Spinal stenosis, thoracic region; I48.0 Paroxysmal atrial fibrillation; E86.0 Dehydration; I95.1 Orthostatic hypotension; I95.89 Other hypotension; G30.9 Alzheimer's disease, unspecified; F02.80 Dementia in other diseases classified elsewhere, unspecified severity, without behavioral disturbance, psychotic disturbance, mood disturbance, and anxiety; R62.7 Adult failure to thrive; J44.9 Chronic obstructive pulmonary disease, unspecified; N18.30 Chronic kidney disease, stage 3 unspecified; I71.9 Aortic aneurysm of unspecified site, without rupture; Z20.822 Contact with and (suspected) exposure to COVID-19; I13.10 Hypertensive heart and chronic kidney disease without heart failure, with stage 1 through stage 4 chronic kidney disease, or unspecified chronic kidney disease; R54 Age-related physical debility; E87.6 Hypokalemia; J45.40 Moderate persistent asthma, uncomplicated; K21.9 Gastro-esophageal reflux disease without esophagitis; E78.5 Hyperlipidemia, unspecified; F41.9 Anxiety disorder, unspecified; M15.9 Polyosteoarthritis, unspecified; M85.80 Other specified disorders of bone density and structure, unspecified site; R29.6 Repeated falls; G89.29 Other chronic pain; M54.6 Pain in thoracic spine; R44.1 Visual hallucinations; K59.00 Constipation, unspecified; G47.00 Insomnia, unspecified; D50.9 Iron deficiency anemia, unspecified; K31.84 Gastroparesis; M47.9 Spondylosis, unspecified; S22.069S Unspecified fracture of T7-T8 vertebra, sequela; S22.089S Unspecified fracture of T11-T12 vertebra, sequela; S32.049S Unspecified fracture of fourth lumbar vertebra, sequela; R32 Unspecified urinary incontinence; Z79.01 Long term (current) use of anticoagulants; Z79.818 Long term (current) use of other agents affecting estrogen receptors and estrogen levels; Z79.51 Long term (current) use of inhaled steroids; Z79.899 Other long term (current) drug therapy; Z91.81 History of falling; Z87.442 Personal history of urinary calculi; Z87.440 Personal history of urinary (tract) infections; Z90.710 Acquired absence of both cervix and uterus; Z98.51 Tubal ligation status; Z87.42 Personal history of other diseases of the female genital tract; Z87.81 Personal history of (healed) traumatic fracture; Z96.642 Presence of left artificial hip joint; Z90.89 Acquired absence of other organs; Z86.16 Personal history of COVID-19; Z86.69 Personal history of other diseases of the nervous system and sense organs; Z98.1 Arthrodesis status; Z98.890 Other specified postprocedural states; Z88.1 Allergy status to other antibiotic agents; Z88.8 Allergy status to other drugs, medicaments and biological substances; W19.XXXA Unspecified fall, initial encounter; Z82.49 Family history of ischemic heart disease and other diseases of the circulatory system
CPT/HCPCS: 36415; 70260; 71046; 72128; 72131; 76700; 80048; 80053; 81001; 82272; 82607; 82728; 83540; 83550; 83605; 83690; 83735; 84443; 84484; 85025; 85379; 87635; 93005; 94640; 96361; 96365; 96366; 99285

== ENCOUNTER 2021-07-22 19:43 | Observation (INO) | payer MEDICARE ==
[2021-07-22] MEDS ORDERED: SODIUM CHLORIDE 0.9% 500 ML 500 ML IV STA (20:06)
--- NOTE | 2021-07-22 20:11 | ED ---
General Adult HPI - General Source: patient, RN notes reviewed, old records reviewed <Shahriar Meredith - Last Filed: 07/22/21 20:32> <Jg Clay - Last Filed: 07/23/21 00:42> - General Stated complaint: poss UTI Time Seen by Provider: 07/22/21 20:00 - History of Present Illness Initial comments: This is a 75-year-old female presents emergency Department with her daughter. Daughter states over the last 3 days she has been eating or drinking she's becoming weaker and weaker. Daughter states she has had no nausea or vomiting but has had a little bit of diarrhea. She does not complain of any chest pain or palpitations she states her shortness of breath is no worse than normal. P atient denies any recent fever chills patient denies any headache patient denies any lightheadedness or dizziness. Daughter states she always has swelling to her legs and that has not improved at all. (Shahriar Meredith) - Related Data Home Medications Medication Instructions Recorded Confirmed Montelukast Sodium [Singulair] 10 mg PO HS 10/01/19 07/22/21 Albuterol Sulfate [Ventolin HFA] 2 puff INHALATION RT-Q4H PRN 05/05/20 07/22/21 Metoprolol Succinate (ER) [Toprol 25 mg PO BID 02/10/21 07/22/21 XL] Nitroglycerin Sl Tabs [Nitrostat] 0.4 mg SL Q5M PRN 05/22/21 07/22/21 predniSONE 10 mg PO DAILY 05/22/21 07/22/21 Apixaban [Eliquis] 5 mg PO BID 06/10/21 07/22/21 Atorvastatin [Lipitor] 20 mg PO HS 06/10/21 07/22/21 Melatonin 10 mg PO HS 06/10/21 07/22/21 Pantoprazole [Protonix] 40 mg PO DAILY 06/10/21 07/22/21 Potassium Chloride ER [K-Dur 20] 20 meq PO DAILY 06/10/21 07/22/21 Furosemide [Lasix] 20 mg PO DAILY 07/22/21 07/22/21 HYDROcodone/APAP 7.5-325MG [Erin 1 tab PO Q6HR PRN 07/22/21 07/22/21 7.5-325] Megestrol [Megace] 40 mg PO BID 07/22/21 07/22/21 Ondansetron [Zofran] 4 mg PO Q8HR PRN 07/22/21 07/22/21 Previous Rx's Medication Instructions Recorded Budesonide-Formot 160-4.5 Mcg 2 puff INHALATION RT-BID gm 06/11/21 [Symbicort 160-4.5 Mcg Inhaler] Allergies Allergy/AdvReac Type Severity Reaction Status Date / Time levofloxacin Allergy Anaphylaxis Verified 07/22/21 20:14 lisinopril Allergy Unknown Verified 07/22/21 20:14 memantine [From Namenda] Allergy Rash/Hives Verified 07/22/21 20:14 Review of Systems ROS Other: All systems not noted in ROS Statement are negative. <Shahriar Meredith - Last Filed: 07/22/21 20:32> ROS Other: All systems not noted in ROS Statement are negative. <Jg Clay - Last Filed: 07/23/21 00:42> ROS Statement: Those systems with pertinent positive or pertinent negative responses have been documented in the HPI. Past Medical History Past Medical History: Atrial Fibrillation, Asthma, COPD, Dementia, Hyperl ipidemia, Hypertension, Memory Impairment, Renal Disease, Seizure Disorder, Vascular Disorder Additional Past Medical History / Comment(s): Aortic aneurysm, daughter states past fluid around lung that was drained off, CKD III, nephrolithiasis, UTI/cystitis, one seizure in 2019, anemia, chronic back pain, bilateral ankle edema, FALLS History of Any Multi-Drug Resistant Organisms: None Reported Past Surgical History: Back Surgery, Hysterectomy, Orthopedic Surgery, Tonsillectomy, Tubal Ligation Additional Past Surgical History / Comment(s): D&C, EGD, colonoscopy, L hip hemiarthroplasty d/t fracure, R shoulder surgery d/t fracture-has hardware Past Anesthesia/Blood Transfusion Reactions: Motion Sickness Additional Past Anesthesia/Blood Transfusion Reaction / Comment(s): Pt has clausterphobia. Past Psychological History: Anxiety Smoking Status: Never smoker Past Alcohol Use History: None Reported Past Drug Use History: None Reported - Past Family History Mother Family Medical History: Hypertension Father Family Medical History: Coronary Artery Disease (CAD), Myocardial Infarction (SC) Additional Family Medical History / Comment(s): Father of a SC in his 70s. <MeredithMikie choShahriar - Last Filed: 07/22/21 20:32> General Exam <Meredith,Shahriar - Last Filed: 07/22/21 20:32> - General Exam Comments Initial Comments: GENERAL: Patient is well-developed and well-nourished. Patient is nontoxic and well- hydrated and is in no acute distress. ENT: Neck is soft and supple. No significant lymphadenopathy is noted. Oropharynx is clear. Moist mucous membranes. Neck has full range of motion without eliciting any pain. EYES: The sclera were anicteric and conjunctiva were pink and moist. Extraocular movements were intact and pupils were equal round and reactive to light. Eyelids were unremarkable. PULMONARY: Unlabored respirations. Good breath sounds bilaterally. No audible rales rhonchi or wheezing was noted. CARDIOVASCULAR: There is a regular rate and rhythm without any murmurs gallops or rubs. ABDOMEN: Soft and nontender with normal bowel sounds. Mild suprapubic distention SKIN: Skin is clear with no lesions or rashes and otherwise unremarkable. NEUROLOGIC: Patient is alert and oriented 2. Cranial nerves II through XII are grossly intact. Motor and sensory are also intact. Normal speech, volume and content. Symmetrical smile. MUSCULOSKELETAL: Normal extremities with adequate strength and full range of motion. 1+ edema bilateral ankles LYMPHATICS: No significant lymphadenopathy is noted PSYCHIATRIC: Normal psychiatric evaluation. (Shahriar Meredith) Course Vital Signs 07/22/21 07/22/21 20:14 23:03 Temperature 98.4 F Pulse Rate 78 78 Respiratory 16 16 Rate Blood Pressure 128/86 107/95 O2 Sat by Pulse 98 98 Oximetry Medical Decision Making <MeredithShahriar - Last Filed: 07/22/21 20:32> - Lab Data Result diagrams: 07/22/21 21:03 07/22/21 21:03 <Jg Clay - Last Filed: 07/23/21 00:42> - Medical Decision Making EKG shows sinus rhythm at 77 bpm QRS is 83 QT intervals 409 QTC is 440. Shows no ST segment elevation or depression Dr. Reyes will be taking care of this patient at 9:00 (Shahriar Meredith) I received this patient at sign out pending results of the labs. Plan was to have admission for altered mental status, suspected due to UTI. Discussed the findings with Dr. Nguyen who will admit. Will have serial cardiac enzymes, hydration and recheck lactic acid. (Jg Clay) - Lab Data Lab Results 07/22/21 07/22/21 07/22/21 Range/Units 21:03 21:03 21:03 WBC 13.9 H (3.8-10.6) k/uL RBC 3.96 (3.80-5.40) m/uL Hgb 12.9 (11.4-16.0) gm/dL Hct 41.3 (34.0-46.0) % MCV 104.3 H (80.0-100.0) fL MCH 32.5 (25.0-35.0) pg MCHC 31.2 (31.0-37.0) g/dL RDW 16.1 H (11.5-15.5) % Plt Count 245 (150-450) k/uL MPV 8.4 Neutrophils % 92 % Lymphocytes % 5 % Monocytes % 1 % Eosinophils % 1 % Basophils % 0 % Neutrophils # 12.7 H (1.3-7.7) k/uL Lymphocytes # 0.7 L (1.0-4.8) k/uL Monocytes # 0.2 (0-1.0) k/uL Eosinophils # 0.2 (0-0.7) k/uL Basophils # 0.0 (0-0.2) k/uL Hypochromasia Moderate Anisocytosis Slight Macrocytosis Moderate PT 12.6 H (9.0-12.0) sec INR 1.2 H (<1.2) APTT 28.0 (22.0-30.0) sec Sodium 138 (137-145) mmol/L Potassium 3.3 L (3.5-5.1) mmol/L Chloride 103 (98-107) mmol/L Carbon Dioxide 24 (22-30) mmol/L Anion Gap 11 mmol/L BUN 18 H (7-17) mg/dL Creatinine 1.13 H (0.52-1.04) mg/dL Est GFR (CKD-EPI)AfAm 55 (>60 ml/min/1.73 sqM) Est GFR (CKD-EPI)NonAf 48 (>60 ml/min/1.73 sqM) Glucose 105 H (74-99) mg/dL Lactic Ac Sepsis Rflx Plasma Lactic Acid Nolberto (0.7-2.0) mmol/L Calcium 8.6 (8.4-10.2) mg/dL Magnesium 1.9 (1.6-2.3) mg/dL Total Bilirubin 1.8 H (0.2-1.3) mg/dL AST 26 (14-36) U/L ALT 14 (4-34) U/L Alkaline Phosphatase 82 (38-126) U/L Troponin I (0.000-0.034) ng/mL Total Protein 6.1 L (6.3-8.2) g/dL Albumin 3.7 (3.5-5.0) g/dL Urine Color Urine Appearance (Clear) Urine pH (5.0-8.0) Ur Specific Acosta (1.001-1.035) Urine Protein (Negative) Urine Glucose (UA) (Negative) Urine Ketones (Negative) Urine Blood (Negative) Urine Nitrite (Negative) Urine Bilirubin (Negative) Urine Urobilinogen (<2.0) mg/dL Ur Leukocyte Esterase (Negative) 07/22/21 07/22/21 07/22/21 Range/Units 21:03 21:03 21:54 WBC (3.8-10.6) k/uL RBC (3.80-5.40) m/uL Hgb (11.4-16.0) gm/dL Hct (34.0-46.0) % MCV (80.0-100.0) fL MCH (25.0-35.0) pg MCHC (31.0-37.0) g/dL RDW (11.5-15.5) % Plt Count (150-450) k/uL MPV Neutrophils % % Lymphocytes % % Monocytes % % Eosinophils % % Basophils % % Neutrophils # (1.3-7.7) k/uL Lymphocytes # (1.0-4.8) k/uL Monocytes # (0-1.0) k/uL Eosinophils # (0-0.7) k/uL Basophils # (0-0.2) k/uL Hypochromasia Anisocytosis Macrocytosis PT (9.0-12.0) sec INR (<1.2) APTT (22.0-30.0) sec Sodium (137-145) mmol/L Potassium (3.5-5.1) mmol/L Chloride (98-107) mmol/L Carbon Dioxide (22-30) mmol/L Anion Gap mmol/L BUN (7-17) mg/dL Creatinine (0.52-1.04) mg/dL Est GFR (CKD-EPI)AfAm (>60 ml/min/1.73 sqM) Est GFR (CKD-EPI)NonAf (>60 ml/min/1.73 sqM) Glucose (74-99) mg/dL Lactic Ac Sepsis Rflx Y Plasma Lactic Acid Nolberto 2.7 H* (0.7-2.0) mmol/L Calcium (8.4-10.2) mg/dL Magnesium (1.6-2.3) mg/dL Total Bilirubin (0.2-1.3) mg/dL AST (14-36) U/L ALT (4-34) U/L Alkaline Phosphatase (38-126) U/L Troponin I 0.048 H* (0.000-0.034) ng/mL Total Protein (6.3-8.2) g/dL Albumin (3.5-5.0) g/dL Urine Color Urine Appearance (Clear) Urine pH (5.0-8.0) Ur Specific [place]osta (1.001-1.035) Urine Protein (Negative) Urine Glucose (UA) (Negative) Urine Ketones (Negative) Urine Blood (Negative) Urine Nitrite (Negative) Urine Bilirubin (Negative) Urine Urobilinogen (<2.0) mg/dL Ur Leukocyte Esterase (Negative) 07/22/21 Range/Units 23:03 WBC (3.8-10.6) k/uL RBC (3.80-5.40) m/uL Hgb (11.4-16.0) gm/dL Hct (34.0-46.0) % MCV (80.0-100.0) fL MCH (25.0-35.0) pg MCHC (31.0-37.0) g/dL RDW (11.5-15.5) % Plt Count (150-450) k/uL MPV Neutrophils % % Lymphocytes % % Monocytes % % Eosinophils % % Basophils % % Neutrophils # (1.3-7.7) k/uL Lymphocytes # (1.0-4.8) k/uL Monocytes # (0-1.0) k/uL Eosinophils # (0-0.7) k/uL Basophils # (0-0.2) k/uL Hypochromasia Anisocytosis Macrocytosis PT (9.0-12.0) sec INR (<1.2) APTT (22.0-30.0) sec Sodium (137-145) mmol/L Potassium (3.5-5.1) mmol/L Chloride (98-107) mmol/L Carbon Dioxide (22-30) mmol/L Anion Gap mmol/L BUN (7-17) mg/dL Creatinine (0.52-1.04) mg/dL Est GFR (CKD-EPI)AfAm (>60 ml/min/1.73 sqM) Est GFR (CKD-EPI)NonAf (>60 ml/min/1.73 sqM) Glucose (74-99) mg/dL Lactic Ac Sepsis Rflx Plasma Lactic Acid Nolberto (0.7-2.0) mmol/L Calcium (8.4-10.2) mg/dL Magnesium (1.6-2.3) mg/dL Total Bilirubin (0.2-1.3) mg/dL AST (14-36) U/L ALT (4-34) U/L Alkaline Phosphatase (38-126) U/L Troponin I (0.000-0.034) ng/mL Total Protein (6.3-8.2) g/dL Albumin (3.5-5.0) g/dL Urine Color Yellow Urine Appearance Clear (Clear) Urine pH 5.0 (5.0-8.0) Ur Specific [place]osta 1.009 (1.001-1.035) Urine Protein Negative (Negative) Urine Glucose (UA) Negative (Negative) Urine Ketones Negative (Negative) Urine Blood Negative (Negative) Urine Nitrite Negative (Negative) Urine Bilirubin Negative (Negative) Urine Urobilinogen <2.0 (<2.0) mg/dL Ur Leukocyte Esterase Negative (Negative) Disposition <Shahriar Meredith - Last Filed: 07/22/21 20:32> Time of Disposition: 00:25 <Jg Clay - Last Filed: 07/23/21 00:42> Clinical Impression: Elevated troponin I measurement, Altered mental status, Lactic acid increased Disposition: ADMITTED IP TO THIS HOSP Condition: Fair Referrals: Lalo Nguyen MD [Primary Care Provider] - 1-2 days
--- NOTE | 2021-07-22 21:24 | XR ---
EXAMINATION TYPE: XR chest 2V DATE OF EXAM: 07/22/2021 9:00 PM COMPARISON: Multiple radiographs, with the most recent on 06/10/2021 TECHNIQUE: XR chest 2V Frontal and lateral views of the chest. CLINICAL INDICATION:Female, 75 years old with history of Weakness; FINDINGS: Patient is rotated on today's exam. Lungs/Pleura: There is no evidence of pleural effusion, focal consolidation, or pneumothorax. Pulmonary vascularity: Unremarkable. Heart/mediastinum: Cardiomediastinal silhouette is enlarged and stable. Musculoskeletal: No acute osseous pathology. IMPRESSION: Given patient rotation there is no evidence for acute cardiopulmonary disease/process.
[2021-07-22 21:25] LABS: Anisocytosis Slight; Basophils % (A) 0 %; Eosinophils # (A) 0.2 k/uL (0-0.7); Eosinophils % (A) 1 %; HCT 41.3 % (34.0-46.0); HGB 12.9 gm/dL (11.4-16.0); Hypochromasia Moderate; Lymphocytes # (A) 0.7 k/uL (1.0-4.8); Lymphocytes % (A) 5 %; MCH 32.5 pg (25.0-35.0); MCHC 31.2 g/dL (31.0-37.0); MCV 104.3 fL (80.0-100.0); Macrocytosis Moderate; Mean Platelet Volume 8.4; Monocytes # (A) 0.2 k/uL (0-1.0); Monocytes % (A) 1 %; Neutrophils # (A) 12.7 k/uL (1.3-7.7); Neutrophils % (A) 92 %; Platelet Count 245 k/uL (150-450); RBC 3.96 m/uL (3.80-5.40); RDW 16.1 % (11.5-15.5); WBC 13.9 k/uL (3.8-10.6)
[2021-07-22 21:33] LABS: Albumin 3.7 g/dL (3.5-5.0); Calcium 8.6 mg/dL (8.4-10.2); Magnesium 1.9 mg/dL (1.6-2.3); Potassium 3.3 mmol/L (3.5-5.1); Total Bilirubin 1.8 mg/dL (0.2-1.3); Total Protein 6.1 g/dL (6.3-8.2)
[2021-07-22 21:41] LABS: INR 1.2 (<1.2); Prothrombin Time 12.6 sec (9.0-12.0)
[2021-07-22 23:36] LABS: Appearance,Urine Clear (Clear); Bilirubin,Urine Negative (Negative); Blood,Urine Negative (Negative); Color,Urine Yellow; Glucose,Urine (UA) Negative (Negative); Ketones,Urine Negative (Negative); Leukocyte Esterase,Urine Negative (Negative); Nitrite,Urine Negative (Negative); Protein,Urine Negative (Negative); Specific Gravity,Urine 1.009 (1.001-1.035); Urobilinogen,Urine <2.0 mg/dL (<2.0)
[2021-07-23] MEDS ORDERED: NITROGLYCERIN SL TABS 0.4 MG TAB SUBLINGUAL PRN ×2 (00:37→09:03)
[2021-07-23] MEDS ORDERED: SODIUM CHLORIDE 0.9% 1,000 ML IV STA (00:41)
--- NOTE | 2021-07-23 08:43 | P.CRDCN ---
History of Present Illness History of present illness: 75-year-old lady with history of dementia chronic renal insufficiency hypertension paroxysmal atrial fibrillation is admitted to hospital with patient not being able to eat or drink and becoming progressively weaker. Cardiology had been consulted because of mildly elevated troponins. She does not have chest pain or difficulty in breathing. She has mild chronic bilateral leg edema. She is not in distress but appears confused at rest. She was in the hospital last month with an episode of chest discomfort. Her troponins are mildly elevated but they were on on the previous admission also. EKG does not reveal acute ischemic changes. I will obtain an echocardiogram on her to assess her wall motion and LV function and continue current medical therapy including the beta blockers statins and Eliquis. Review of systems: I'm unable to obtain review of systems secondary to confusion On exam: Patient is comfortable at rest heart rate is 75 bpm blood pressure is 03/02/1984 respirators 16 O2 sat is 97% on room air there is a jugular venous distention carotid upstroke is normal chest exam reveals good air entry bilaterally heart exam reveals first and second heart sounds systolic murmur at the left lower sternal border abdomen is soft examination extremities reveals mild bilateral edema with diminished peripheral pulses Labs show a hemoglobin of 12.9 potassium is 3.3 creatinine is 1.1 troponin is in the bob zone at 0.04 Assessment and plan: Elevated troponin probably related to underlying renal insufficiency History of paroxysmal atrial fibrillation Dementia Continue current measures I will check an echo Past Medical History Past Medical History: Atrial Fibrillation, Asthma, COPD, Dementia, Hyperlipidemia, Hypertension, Memory Impairment, Renal Disease, Seizure Disorder, Vascular Disorder Additional Past Medical History / Comment(s): Aortic aneurysm, daughter states past fluid around lung that was drained off, CKD III, nephrolithiasis, UTI/cystitis, one seizure in 2019, anemia, chronic back pain, bilateral ankle edema, FALLS History of Any Multi-Drug Resistant Organisms: None Reported Past Surgical History: Back Surgery, Hysterectomy, Orthopedic Surgery, Tonsillectomy, Tubal Ligation Additional Past Surgical History / Comment(s): D&C, EGD, colonoscopy, L hip hemiarthroplasty d/t fracure, R shoulder surgery d/t fracture-has hardware Past Anesthesia/Blood Transfusion Reactions: Motion Sickness Additional Past Anesthesia/Blood Transfusion Reaction / Comment(s): Pt has clausterphobia. Past Psychological History: Anxiety Smoking Status: Never smoker Past Alcohol Use History: None Reported Past Drug Use History: None Reported - Past Family History Mother Family Medical History: Hypertension Father Family Medical History: Coronary Artery Disease (CAD), Myocardial Infarction (MA) Additional Family Medical History / Comment(s): Father of a MA in his 70s. Medications and Allergies Home Medications Medication Instructions Recorded Confirmed Type Montelukast Sodium [Singulair] 10 mg PO HS 10/01/19 07/22/21 History Albuterol Sulfate [Ventolin HFA] 2 puff INHALATION RT-Q4H PRN 05/05/20 07/22/21 History Metoprolol Succinate (ER) [Toprol 25 mg PO BID 02/10/21 07/22/21 History XL] Nitroglycerin Sl Tabs [Nitrostat] 0.4 mg SL Q5M PRN 05/22/21 07/22/21 History predniSONE 10 mg PO DAILY 05/22/21 07/22/21 History Apixaban [Eliquis] 5 mg PO BID 06/10/21 07/22/21 History Atorvastatin [Lipitor] 20 mg PO HS 06/10/21 07/22/21 History Melatonin 10 mg PO HS 06/10/21 07/22/21 History Pantoprazole [Protonix] 40 mg PO DAILY 06/10/21 07/22/21 History Potassium Chloride ER [K-Dur 20] 20 meq PO DAILY 06/10/21 07/22/21 History Budesonide-Formot 160-4.5 Mcg 2 puff INHALATION RT-BID 06/11/21 07/22/21 Rx [Symbicort 160-4.5 Mcg Inhaler] Furosemide [Lasix] 20 mg PO DAILY 07/22/21 07/22/21 History HYDROcodone/APAP 7.5-325MG [[place] 1 tab PO Q6HR PRN 07/22/21 07/22/21 History 7.5-325] Megestrol [Megace] 40 mg PO BID 07/22/21 07/22/21 History Ondansetron [Zofran] 4 mg PO Q8HR PRN 07/22/21 07/22/21 History Allergies Allergy/AdvReac Type Severity Reaction Status Date / Time levofloxacin Allergy Anaphylaxis Verified 07/22/21 20:14 lisinopril Allergy Unknown Verified 07/22/21 20:14 memantine [From Namenda] Allergy Rash/Hives Verified 07/22/21 20:14 Physical Exam Vitals: Vital Signs Temp Pulse Pulse Resp BP BP Pulse Ox 07/23/21 04:00 98.3 F 75 16 125/85 97 07/23/21 02:00 75 16 07/23/21 01:51 82 16 109/85 97 07/22/21 23:03 78 16 107/95 98 07/22/21 20:14 98.4 F 78 16 128/86 98 Intake and Output 07/22/21 07/23/21 07/23/21 22:59 06:59 14:59 Other: Voiding Method Bedpan Diaper Incontinent Weight 58.967 kg 57 kg Results 07/22/21 21:03 07/22/21 21:03 Cardiac Enzymes 07/22/21 07/22/21 07/23/21 Range/Units 21:03 21:03 01:01 AST 26 (14-36) U/L Troponin I 0.048 H* 0.049 H* (0.000-0.034) ng/mL 07/23/21 Range/Units 05:11 AST (14-36) U/L Troponin I 0.040 H* (0.000-0.034) ng/mL Coagulation 07/22/21 Range/Units 21:03 PT 12.6 H (9.0-12.0) sec APTT 28.0 (22.0-30.0) sec CBC 07/22/21 Range/Units 21:03 WBC 13.9 H (3.8-10.6) k/uL RBC 3.96 (3.80-5.40) m/uL Hgb 12.9 (11.4-16.0) gm/dL Hct 41.3 (34.0-46.0) % Plt Count 245 (150-450) k/uL Comprehensive Metabolic Panel 07/22/21 Range/Units 21:03 Sodium 138 (137-145) mmol/L Potassium 3.3 L (3.5-5.1) mmol/L Chloride 103 (98-107) mmol/L Carbon Dioxide 24 (22-30) mmol/L BUN 18 H (7-17) mg/dL Creatinine 1.13 H (0.52-1.04) mg/dL Glucose 105 H (74-99) mg/dL Calcium 8.6 (8.4-10.2) mg/dL AST 26 (14-36) U/L ALT 14 (4-34) U/L Alkaline Phosphatase 82 (38-126) U/L Total Protein 6.1 L (6.3-8.2) g/dL Albumin 3.7 (3.5-5.0) g/dL Current Medications Generic Name Dose Route Start Last Admin Trade Name Freq PRN Reason Stop Dose Admin Aspirin 325 mg 07/24/21 09:00 Aspirin 325 Mg Tab PO DAILY MACI Heparin Sodium (Porcine) 5,000 unit 07/23/21 09:00 Heparin Sodium,Porcine/Pf 5,000 Unit/0.5 Ml Syringe SQ Q12HR MACI Nitroglycerin 0.4 mg 07/23/21 00:37 Nitroglycerin Sl Tabs 0.4 Mg Tab SUBLINGUAL Q5M PRN Chest Pain Intake and Output 07/22/21 07/23/21 07/23/21 22:59 06:59 14:59 Other: Voiding Method Bedpan Diaper Incontinent Weight 58.967 kg 57 kg 07/22/21 21:03 07/22/21 21:03
[2021-07-23] MEDS ORDERED: HEPARIN SODIUM,PORCINE/PF 5,000 UNIT/0.5 ML SYRINGE SQ SCH (09:00)
[2021-07-23] MEDS ORDERED: ONDANSETRON 4 MG TAB PO PRN (09:03)
[2021-07-23] MEDS ORDERED: HYDROcodone/APAP 7.5-325MG 1 EACH TAB PO PRN (09:03)
[2021-07-23] MEDS: APIXABAN 5 MG TAB PO SCH ×2 (11:43→20:27)
[2021-07-23] MEDS ORDERED: Potassium Replacement Protocol 1 EACH MISC MISCELLANE PRN (18:53)
--- NOTE | 2021-07-23 19:59 | HP ---
HISTORY AND PHYSICAL 75-year-old -Green[place] female with dementia, chronic renal insufficiency, hypertension, paroxysmal atrial fibrillation, admitted to the hospital, not been able to eat or drink, progressively weaker, mildly elevated troponins. Cardiology saw her. She comes in. She has a history of COPD and a recent COVID twice in the past year. Cardiology saw the patient and is reviewing the hospital chart. 14-point review of system is negative except for weakness and fatigue. Respirations 16. Sat 97 on room air. Cardiovascular S1, S2. Lungs scattered rhonchi and wheeze. Integument: Dry skin turgor, dry mucous membranes. Potassium 3.3, creatinine is 1.1, hemoglobin 12.9. ASSESSMENT: 1. Elevated troponin secondary to renal insufficiency. 2. Dehydration. 3. Paroxysmal atrial fib. 4. Dementia. 5. Mild leukocytosis. 6. Rule out urinary tract infection. 7. Purulent tracheobronchitis. 8. History of atrial fibrillation. 9. Asthma. 10.Chronic obstructive pulmonary disease. 11.Dyslipidemia. 12.Hypertension. 13.Seizure disorder. 14.Renal disease. 15.Prognosis is guarded. MEDICATIONS: See list. FAMILY HISTORY: See list. Medications see home list. Get PT/OT involved and replace potassium for hypokalemia, acute tubular necrosis. Prerenal azotemia. Continue with fluids. Prognosis is guarded. Please see further orders. MMODL / IJN: [id number] /
[2021-07-23] MEDS: SYMBICORT 160-4.5 MCG INHALER INHALATION SCH (20:03)
[2021-07-23] MEDS: SODIUM CHLORIDE 0.9% 1,000 ML IV SCH (20:22)
[2021-07-23] MEDS: MONTELUKAST 10 MG TAB PO SCH (20:27)
[2021-07-23] MEDS: METOPROLOL SUCCINATE (ER) 25 MG TAB.ER.24H PO SCH (20:27)
[2021-07-23] MEDS: MELATONIN 5 MG TABLET PO SCH (20:27)
[2021-07-23] MEDS: POTASSIUM CHLORIDE ER 20 MEQ TAB.ER PO SCH ×2 (20:27→22:15)
[2021-07-23] MEDS: ATORVASTATIN 20 MG TAB PO SCH (20:27)
[2021-07-23] MEDS: MEGESTROL 40 MG TAB PO SCH (20:28)
[2021-07-24 06:17] LABS: Anisocytosis Slight; Basophils % (A) 0 %; Eosinophils # (A) 0.1 k/uL (0-0.7); Eosinophils % (A) 1 %; HCT 34.9 % (34.0-46.0); Hypochromasia Slight; Lymphocytes # (A) 1.7 k/uL (1.0-4.8); Lymphocytes % (A) 23 %; MCH 32.5 pg (25.0-35.0); MCHC 31.4 g/dL (31.0-37.0); MCV 103.4 fL (80.0-100.0); Macrocytosis Moderate; Mean Platelet Volume 8.6; Monocytes # (A) 0.4 k/uL (0-1.0); Monocytes % (A) 5 %; Neutrophils # (A) 5.2 k/uL (1.3-7.7); Neutrophils % (A) 69 %; Platelet Count 209 k/uL (150-450); RBC 3.37 m/uL (3.80-5.40); RDW 16.2 % (11.5-15.5); WBC 7.5 k/uL (3.8-10.6)
[2021-07-24 06:26] LABS: ALT 9 U/L (4-34); AST 18 U/L (14-36); African American GFR (CKD) 68 (>60 ml/min/1.73 sqM); Albumin 2.6 g/dL (3.5-5.0); Alkaline Phosphatase 61 U/L (38-126); Anion Gap 5 mmol/L; Blood Urea Nitrogen 15 mg/dL (7-17); Calcium 7.9 mg/dL (8.4-10.2); Carbon Dioxide 26 mmol/L (22-30); Chloride 109 mmol/L (98-107); Glucose 80 mg/dL (74-99); Non-African American GFR(CKD) 59 (>60 ml/min/1.73 sqM); Potassium 3.3 mmol/L (3.5-5.1); Sodium 140 mmol/L (137-145); Total Bilirubin 1.6 mg/dL (0.2-1.3); Total Protein 4.7 g/dL (6.3-8.2)
[2021-07-24] MEDS: SYMBICORT 160-4.5 MCG INHALER INHALATION SCH ×2 (08:18→20:05)
[2021-07-24] MEDS ORDERED: FUROSEMIDE 20 MG TAB PO SCH (09:00)
[2021-07-24] MEDS ORDERED: ASPIRIN 325 MG TAB PO SCH (09:00)
[2021-07-24] MEDS: predniSONE 10 MG TAB PO SCH (09:32)
[2021-07-24] MEDS: MEGESTROL 40 MG TAB PO SCH ×2 (09:32→21:34)
[2021-07-24] MEDS: PANTOPRAZOLE 40 MG TABLET PO SCH (09:33)
[2021-07-24] MEDS: APIXABAN 5 MG TAB PO SCH ×2 (09:33→21:34)
[2021-07-24] MEDS: METOPROLOL SUCCINATE (ER) 25 MG TAB.ER.24H PO SCH ×2 (09:33→21:34)
[2021-07-24] MEDS: POTASSIUM CHLORIDE ER 20 MEQ TAB.ER PO SCH (09:33)
--- NOTE | 2021-07-24 12:50 | PN ---
PROGRESS NOTE Mrs. Dobbins is actually doing well today. She is sitting up. No chest pain or shortness of breath. She is on a combination of aspirin and Eliquis. I am suggesting we can discontinue aspirin. Her lactic acidosis has resolved. She feels well. Vitals are stable. No JVD. S1, S2 heard normally. Short systolic murmur noted. Lungs are clear. Abdomen and lower extremity exam unchanged. Plan is to continue current medications, and patient can be discharged whenever okayed by the admitting doctor. No other intervention from a cardiac standpoint at this time. She is maintaining sinus rhythm. MMODL / IJN: [id number] /
--- NOTE | 2021-07-24 13:26 | PN ---
PROGRESS NOTE This is a 75-year-old -[place] female who comes in with generalized weakness and fatigue. Apparently they fed her some apple juice. She swallowed the whole thing today and she took 5 bites out of some other pudding or something, but she has poor oral intake. Will try to get Nutrition and dietitian to see her to get her eating better. We are going to give her some fluids, as she appears to be dehydrated still. I will probably discontinue her Lasix due to dehydration and check her iron levels, replace her potassium levels for low potassium. Cardiology said her elevated troponins were due to renal insufficiency. UA is negative, but she is dehydrated, having a hard time getting the urine out. Psych: Alert and oriented x3. Ophthalmological: Pupils equal, round, reactive. Skin is a little dry. Cardiovascular S1, S2. Lungs with scattered wheeze and rhonchi. Hematology: Negative Homans. No edema. ASSESSMENT: 1. Dehydration. 2. Generalized weakness. 3. Malnutrition, severe. Get dietitian involved. Hold her Lasix. Start IV fluids. PT/OT. Please see further orders. MMODL / IJN: [id number] /
[2021-07-24 13:32] VITALS: BMI 19.6
[2021-07-24] MEDS: SODIUM CHLORIDE 0.9% 1,000 ML IV SCH (13:50)
[2021-07-24 18:37] LABS: Chol/HDL Ratio 3.28 Ratio; LDL Cholesterol,Calculated 58.3 mg/dL (0.0-131.0); VLDL Calculation 19.64 mg/dL (5.00-40.00)
[2021-07-24] MEDS: ATORVASTATIN 20 MG TAB PO SCH (21:34)
[2021-07-24] MEDS: MONTELUKAST 10 MG TAB PO SCH (21:34)
[2021-07-24] MEDS: MELATONIN 5 MG TABLET PO SCH (21:34)
[2021-07-24] MEDS: HYDROcodone/APAP 5-325MG 1 EACH TAB PO PRN (21:44)
[2021-07-25] MEDS: SYMBICORT 160-4.5 MCG INHALER INHALATION SCH ×2 (07:30→20:34)
[2021-07-25] MEDS: METOPROLOL SUCCINATE (ER) 25 MG TAB.ER.24H PO SCH ×2 (08:49→20:51)
[2021-07-25] MEDS: predniSONE 10 MG TAB PO SCH (08:49)
[2021-07-25] MEDS: POTASSIUM CHLORIDE ER 20 MEQ TAB.ER PO SCH (08:49)
[2021-07-25] MEDS: PANTOPRAZOLE 40 MG TABLET PO SCH (08:49)
[2021-07-25] MEDS: MEGESTROL 40 MG TAB PO SCH ×2 (08:50→20:51)
[2021-07-25] MEDS: APIXABAN 5 MG TAB PO SCH ×2 (08:50→20:51)
--- NOTE | 2021-07-25 10:26 | PN ---
PROGRESS NOTE This 75-year-old -Nigerien female looks stronger today. She is talking more. She is up with Physical Therapy. We are going to get her moving with them today, see how she does. She appears to be better. Blood pressure 110/75, O2 98 on room air, temperature 98.7, respiratory rate 16 to 18, pulse in 60s. Her problem is poor oral intake and generalized weakness. She may need rehab placement. Potassium will have to be replaced. We are waiting for further blood tests to be done to recheck her potassium today and get PT/OT involved. Otherwise she appears to be stabilizing. Her strength is improving. Her diet is improving. Will have to continue rehab placement with physical therapy and try to wean off any sedating medicines, but we have decreased a lot of them at this time. Prognosis is guarded. May need rehab placement. JORDAN / MIRA: [id number] /
[2021-07-25 11:41] LABS: Basophils # (A) 0.01 X 10*3/uL (0.00-0.10); Basophils % (A) 0.1 %; Eosinophils # (A) 0.04 X 10*3/uL (0.04-0.35); Eosinophils % (A) 0.5 %; HCT 31.3 % (37.2-46.3); Immature Grans, Automated 0.4 %; Lymphocytes # (A) 1.71 X 10*3/uL (0.90-5.00); MCH 31.1 pg (27.0-32.0); MCHC 31.9 g/dL (32.0-37.0); MCV 97.2 fL (80.0-97.0); Mean Platelet Volume 11.4 fL (9.5-12.2); Monocytes # (A) 0.58 X 10*3/uL (0.20-1.00); Monocytes % (A) 6.8 %; NRBC Per 100 WBC 0 /100 WBCS (0.0-0.0); Neutrophils # (A) 6.19 X 10*3/uL (1.80-7.70); Neutrophils % (A) 72.2 %; Platelet Count 193 X 10*3/uL (140-440); RBC 3.22 X 10*6/uL (4.10-5.20); RDW 15.4 % (11.5-14.5); WBC 8.56 X 10*3/uL (4.50-10.00)
[2021-07-25 11:49] LABS: African American GFR (CKD) 75.4 (60.0-200.0); Albumin 2.9 g/dL (3.8-4.9); Albumin/Globulin Ratio 1.91 (1.60-3.17); Anion Gap 8.7 mmol/L (10.00-18.00); BUN/Creat Ratio 13.89 Ratio (12.00-20.00); Blood Urea Nitrogen 12.1 mg/dL (9.0-27.0); Carbon Dioxide 24.8 mmol/L (20.0-27.5); Globulin 1.5 g/dL (1.6-3.3); Non-African American GFR(CKD) 65.1 (60.0-200.0); Potassium 3.4 mmol/L (3.5-5.5); Total Bilirubin 1.1 mg/dL (0.30-1.20); Total Protein 4.4 g/dL (6.2-8.2)
[2021-07-25] MEDS: ALBUTEROL NEBULIZED 2.5 MG/3 ML INHALATION PRN (16:37)
[2021-07-25] MEDS: MELATONIN 5 MG TABLET PO SCH (20:51)
[2021-07-25] MEDS: MONTELUKAST 10 MG TAB PO SCH (20:51)
[2021-07-25] MEDS: ATORVASTATIN 20 MG TAB PO SCH (20:51)
[2021-07-25] MEDS: HYDROcodone/APAP 5-325MG 1 EACH TAB PO PRN (20:51)
[2021-07-25] MEDS: SODIUM CHLORIDE 0.9% 1,000 ML IV SCH (21:48)
[2021-07-26 06:51] LABS: Basophils % (A) 0 %; Eosinophils # (A) 0.1 k/uL (0-0.7); Eosinophils % (A) 1 %; HCT 33.2 % (34.0-46.0); HGB 10.3 gm/dL (11.4-16.0); Hypochromasia Marked; Lymphocytes # (A) 1.7 k/uL (1.0-4.8); Lymphocytes % (A) 21 %; MCH 32.8 pg (25.0-35.0); MCV 105.7 fL (80.0-100.0); Macrocytosis Moderate; Mean Platelet Volume 7.7; Monocytes # (A) 0.4 k/uL (0-1.0); Monocytes % (A) 5 %; Neutrophils # (A) 5.7 k/uL (1.3-7.7); Neutrophils % (A) 72 %; Platelet Count 206 k/uL (150-450); RBC 3.14 m/uL (3.80-5.40); RDW 15.7 % (11.5-15.5)
[2021-07-26] MEDS: SYMBICORT 160-4.5 MCG INHALER INHALATION SCH ×2 (07:06→19:23)
[2021-07-26] MEDS: APIXABAN 5 MG TAB PO SCH ×2 (07:50→21:39)
[2021-07-26] MEDS: PANTOPRAZOLE 40 MG TABLET PO SCH (07:50)
[2021-07-26] MEDS: predniSONE 10 MG TAB PO SCH (07:51)
[2021-07-26] MEDS: MEGESTROL 40 MG TAB PO SCH ×2 (07:51→21:39)
[2021-07-26] MEDS: POTASSIUM CHLORIDE ER 20 MEQ TAB.ER PO SCH (07:51)
[2021-07-26] MEDS: METOPROLOL SUCCINATE (ER) 25 MG TAB.ER.24H PO SCH ×2 (07:51→21:39)
[2021-07-26] MEDS: SODIUM CHLORIDE 0.9% 1,000 ML IV SCH (07:53)
[2021-07-26 09:55] LABS: African American GFR (CKD) 83.6 (60.0-200.0); Albumin 2.8 g/dL (3.8-4.9); Albumin/Globulin Ratio 1.87 (1.60-3.17); Anion Gap 9.1 mmol/L (10.00-18.00); Blood Urea Nitrogen 10.4 mg/dL (9.0-27.0); Calcium 8.1 mg/dL (8.7-10.3); Carbon Dioxide 21.9 mmol/L (20.0-27.5); Globulin 1.5 g/dL (1.6-3.3); Non-African American GFR(CKD) 72.1 (60.0-200.0); Potassium 3.3 mmol/L (3.5-5.5); Total Bilirubin 0.8 mg/dL (0.30-1.20); Total Protein 4.3 g/dL (6.2-8.2)
--- NOTE | 2021-07-26 14:57 | PN ---
PROGRESS NOTE This patient is a 75-year-old white female who appears to be doing better with PT/OT, but she may need snf placement. Hemoglobin is stable. Potassium is still a little bit low. We are replacing it orally and IV. Continue with PT/OT. Her diet needs to get improved. Will get dietary ordered. Will get physical therapy ordered and see how she does. She is alert and oriented, giving appropriate answers. Cardiovascular S1, S2. Lungs clear. GI soft. Hematology negative Homans. ASSESSMENT: 1. Generalized debility. 2. Protein-calorie malnutrition. 3. Hypokalemia. 4. Metabolic encephalopathy. She appears to be improved clinically. Continue current treatment. Prognosis is guarded. MMODL / IJN: [id number] /
[2021-07-26] MEDS: MELATONIN 5 MG TABLET PO SCH (21:38)
[2021-07-26] MEDS: ATORVASTATIN 20 MG TAB PO SCH (21:39)
[2021-07-26] MEDS: MONTELUKAST 10 MG TAB PO SCH (21:39)
[2021-07-27] MEDS: ALBUTEROL NEBULIZED 2.5 MG/3 ML INHALATION PRN (04:01)
[2021-07-27] MEDS: SYMBICORT 160-4.5 MCG INHALER INHALATION SCH ×2 (07:12→19:39)
[2021-07-27] MEDS: APIXABAN 5 MG TAB PO SCH ×2 (08:16→20:28)
[2021-07-27] MEDS: METOPROLOL SUCCINATE (ER) 25 MG TAB.ER.24H PO SCH ×2 (08:16→20:28)
[2021-07-27] MEDS: PANTOPRAZOLE 40 MG TABLET PO SCH (08:16)
[2021-07-27] MEDS: MEGESTROL 40 MG TAB PO SCH ×2 (08:16→20:29)
[2021-07-27] MEDS: POTASSIUM CHLORIDE ER 20 MEQ TAB.ER PO SCH (08:16)
[2021-07-27] MEDS: predniSONE 10 MG TAB PO SCH (08:16)
[2021-07-27] MEDS: SODIUM CHLORIDE 0.9% 1,000 ML IV SCH (10:44)
[2021-07-27] MEDS: MELATONIN 5 MG TABLET PO SCH (20:28)
[2021-07-27] MEDS: MONTELUKAST 10 MG TAB PO SCH (20:28)
[2021-07-27] MEDS: ATORVASTATIN 20 MG TAB PO SCH (20:29)
[2021-07-28] MEDS: ALBUTEROL NEBULIZED 2.5 MG/3 ML INHALATION PRN (05:10)
--- NOTE | 2021-07-28 06:58 | PN ---
PROGRESS NOTE Lisbet Dobbins was admitted for generalized weakness, COPD. She had some confusion, poor appetite. She is feeling better. Remains on Eliquis for A. fib. Protonix for GERD, Megace for malnutrition. Hemoglobin is 10.3, maintains okay. White count is 8.0, potassium up to 3.6, sodium 140, calcium is 8.1, albumin is low at 2.9. PLANS: Continue diet and possibly discharge home. She does not want to go the [facility]. Cortisol level, thyroid level okay. Generalized weakness, she will continue PT, OT, and possibly go home tomorrow. Prognosis guarded. MMODL / IJN: [id number] /
[2021-07-28] MEDS: SYMBICORT 160-4.5 MCG INHALER INHALATION SCH (07:05)
[2021-07-28] MEDS: SODIUM CHLORIDE 0.9% 1,000 ML IV SCH ×2 (07:21→17:21)
[2021-07-28] MEDS: APIXABAN 5 MG TAB PO SCH (08:43)
[2021-07-28] MEDS: PANTOPRAZOLE 40 MG TABLET PO SCH (08:43)
[2021-07-28] MEDS: POTASSIUM CHLORIDE ER 20 MEQ TAB.ER PO SCH (08:43)
[2021-07-28] MEDS: METOPROLOL SUCCINATE (ER) 25 MG TAB.ER.24H PO SCH (08:43)
[2021-07-28] MEDS: MEGESTROL 40 MG TAB PO SCH (08:47)
[2021-07-28] MEDS: predniSONE 10 MG TAB PO SCH (08:48)
--- NOTE | 2021-07-28 11:35 | CDI ---
Documentation Clarification Form Date: 07/28/2021 11:16:05 AM From: Becca Hill CCS, CCDS Admit Date: 07/27/2021 01:11:00 PM Patient Name: Lisbet Dobbins Visit Number: [id number] Discharge Date: ATTENTION: The Clinical Documentation Specialists (CDI) and [facility] Coding Staff appreciate your assistance in clarifying documentation. Please respond to the clarification below the line at the bottom and electronically sign. The CDI & [facility] Coding staff will review the response and follow-up if needed. Please note: Queries are made part of the Legal Health Record. If you have any questions, please contact the author of this message via ITS. Dr. Lalo Nguyen: Renal disease is documented in the 07/22 ED Note & the 07/23 Cardiology Consult in the patient's past medical history. Elevated troponin probably related to underlying renal insufficiency is documented in the 07/23 Cardiology consult, the 07/23 H/P & the 07/24 Cardiology Progress Note without further specificity. Per the 07/23 Cardiology Consult, the patient has CKD Stage III. Additional clarification regarding the acuity of renal failure is requested. History/Risk Factors per the 07/23 H/P: Paroxysmal Atrial Fibrillation, Dementia, Asthma, COPD, Hyperlipidemia, Hypertension, Seizure Disorder, Renal disease. Clinical Indicators: Presented to the ED on 07/22 with weakness, some diarrhea. Admit with Elevated Troponin, Altered mental Status, Lactic Acid increased. LABS: 07/22 BUN: 18. 07/24: 15. 07/25: 12.1. 07/26: 10.4 07/22 Creatinine: 1.13. 07/24: 0.95. 07/25: 0.9. 07/26: 0.8. 07/22 GFR: 48. 07/24: 59. 6: 65.1. 07/26: 72.1 Historical GFR: 04/27/2018: 55. 11/18/2018: 65. 07/05/2019: 76. 05/05/2020: 52. 10/24/2020: 44. 02/10/2021: 44. 05/22/2021: 49. 07/01/2021: 70 Treatment 07/22: O2 2Lnc, IV Na Chl 500 mls @ 999 mls/hr q31M 07/23: Consult Cardiology & dietitian (Poor oral intake). Nitro sl 0.4 mg q5M x2, IV Na Chl 1,000 mls @ 130 mls/hr q7H, po [place] 7.5-325 q6H/prn, INH Ventolin 2.5 mg q4H/prn, po KCL 20 meq q1H, INH Synbicort BID 07/24: po Protonix 40 mg @ Breakfast, po Aspirin 325 mg Daily. po Lasix 20 mg Daily, po KDur 20 meq Daily, po prednisone 10 mg Daily. Please clarify the acuity of renal failure, if known: [ ] Acute Renal Failure [ ] Acute on Chronic Renal Failure, please specify stage of CKD: [ ] Other, please specify: [ ] Unable to determine (Template Last Revised: April 2020) MTDD
[2021-07-28 14:28] VITALS: BP 123/80; PULSE 74; RESP 18; TEMP 98.2
--- NOTE | 2021-07-28 19:55 | DS ---
DISCHARGE SUMMARY This 75-year-old -[place] female presented to the hospital with altered mental status, elevated troponin, lactic acid increased, abnormal EKG. Cardiology saw her and cleared her from a cardiac standpoint. Her main problem was malnutrition, not eating or drinking. She came with prerenal azotemia and dehydration. Fluids were given. Cut out her sedating medicines and cut down her pain medication dose. Continued on current medications. Followup as an outpatient. Switch her down to [place] 5/325. She takes Singulair 10 once a day, Toprol-XL 25 b.i.d., Lipitor 20 daily, melatonin 10 daily, Protonix 40 mg daily, Megace 40 mg b.i.d., Ventolin HFA 2 puffs q.4 p.r.n., prednisone 10 daily, Eliquis 5 mg b.i.d., K-Dur 20 mEq daily, Symbicort 160/4.5 two puffs b.i.d., Zofran 4 mg q.8 hours. Prognosis guarded. Follow up as an outpatient. MMODL / IJN: [id number] /
--- NOTE | 2021-07-29 16:13 | PN ---
PROGRESS NOTE ADDENDUM: Please add: Acute on chronic renal insufficiency, stage 2. MMODL / IJN: [id number] /
== END 2021-07-28 18:02 | disposition home or self-care (01) ==
LOC: EC 19:43 → 3SCARD 07-23 00:37 → 4SSUR 07-24 00:45 → INTOOBSV 07-27 13:11 → OBSVTOIN 07-27 13:11 → UNDODISIN 07-28 18:02
PROVIDERS: ADMIT Family Medicine; ATTEND Family Medicine
DX: E86.0 Dehydration (principal); E43 Unspecified severe protein-calorie malnutrition; Z68.1 Body mass index [BMI] 19.9 or less, adult; G93.41 Metabolic encephalopathy; E87.2 Acidosis; F03.90 Unspecified dementia, unspecified severity, without behavioral disturbance, psychotic disturbance, mood disturbance, and anxiety; I48.0 Paroxysmal atrial fibrillation; G40.909 Epilepsy, unspecified, not intractable, without status epilepticus; J44.9 Chronic obstructive pulmonary disease, unspecified; I71.9 Aortic aneurysm of unspecified site, without rupture; I12.9 Hypertensive chronic kidney disease with stage 1 through stage 4 chronic kidney disease, or unspecified chronic kidney disease; N18.2 Chronic kidney disease, stage 2 (mild); E87.6 Hypokalemia; R77.8 Other specified abnormalities of plasma proteins; D72.829 Elevated white blood cell count, unspecified; E78.5 Hyperlipidemia, unspecified; K21.9 Gastro-esophageal reflux disease without esophagitis; G89.29 Other chronic pain; M54.9 Dorsalgia, unspecified; R19.7 Diarrhea, unspecified; F41.9 Anxiety disorder, unspecified; R94.31 Abnormal electrocardiogram [ECG] [EKG]; R53.81 Other malaise; R60.0 Localized edema; R32 Unspecified urinary incontinence; I99.9 Unspecified disorder of circulatory system; Z79.01 Long term (current) use of anticoagulants; Z79.51 Long term (current) use of inhaled steroids; Z79.818 Long term (current) use of other agents affecting estrogen receptors and estrogen levels; Z79.52 Long term (current) use of systemic steroids; Z79.899 Other long term (current) drug therapy; Z86.16 Personal history of COVID-19; Z87.442 Personal history of urinary calculi; Z87.440 Personal history of urinary (tract) infections; Z91.81 History of falling; Z90.710 Acquired absence of both cervix and uterus; Z90.89 Acquired absence of other organs; Z98.51 Tubal ligation status; Z87.42 Personal history of other diseases of the female genital tract; Z96.642 Presence of left artificial hip joint; Z87.81 Personal history of (healed) traumatic fracture; Z98.890 Other specified postprocedural states; Z71.3 Dietary counseling and surveillance; Z88.1 Allergy status to other antibiotic agents; Z88.8 Allergy status to other drugs, medicaments and biological substances; Z82.49 Family history of ischemic heart disease and other diseases of the circulatory system
CPT/HCPCS: 99285; 36415; 94640 ×10; 94760 ×4; 93005; 97116 ×4; 97162; 97530 ×2; 97166; 36410; 76937; 83880; 80061; 80053 ×4; 84443; 82533; 83605 ×2; 83735; 84132; 84484 ×2; 85025 ×4; 85610; 85730; 81003; 71046; G0378 ×7; S0179 ×6; J7512 ×5

== ENCOUNTER 2021-08-11 16:02 | Inpatient (IN) | payer MEDICARE ==
--- NOTE | 2021-08-11 16:45 | ED ---
General Adult HPI - General Chief complaint: Weakness Stated complaint: Weakness Time Seen by Provider: 08/11/21 16:05 Source: patient, EMS, RN notes reviewed, old records reviewed Mode of arrival: EMS Limitations: no limitations - History of Present Illness Initial comments: 75-year-old female with increased weakness over the past several days. Patient brought in by paramedics. Family had reported some slurred speech, unknown onset. This was not appreciated by paramedics. At the time my initial evaluation the patient's speech is clear. She has no pain complaints. No headache, no chest pain, no abdominal pain. No focal numbness or weakness. No fever. No vomiting or diarrhea. - Related Data Home Medications Medication Instructions Recorded Confirmed Montelukast Sodium [Singulair] 10 mg PO HS 10/01/19 07/22/21 Albuterol Sulfate [Ventolin HFA] 2 puff INHALATION RT-Q4H PRN 05/05/20 07/22/21 Metoprolol Succinate (ER) [Toprol 25 mg PO BID 02/10/21 07/22/21 XL] Nitroglycerin Sl Tabs [Nitrostat] 0.4 mg SL Q5M PRN 05/22/21 07/22/21 predniSONE 10 mg PO DAILY 05/22/21 07/22/21 Apixaban [Eliquis] 5 mg PO BID 06/10/21 07/22/21 Atorvastatin [Lipitor] 20 mg PO HS 06/10/21 07/22/21 Melatonin 10 mg PO HS 06/10/21 07/22/21 Pantoprazole [Protonix] 40 mg PO DAILY 06/10/21 07/22/21 Potassium Chloride ER [K-Dur 20] 20 meq PO DAILY 06/10/21 07/22/21 Megestrol [Megace] 40 mg PO BID 07/22/21 07/22/21 Ondansetron [Zofran] 4 mg PO Q8HR PRN 07/22/21 07/22/21 Previous Rx's Medication Instructions Recorded Budesonide-Formot 160-4.5 Mcg 2 puff INHALATION RT-BID gm 06/11/21 [Symbicort 160-4.5 Mcg Inhaler] HYDROcodone/APAP 5-325MG [[place] 1 each PO Q6HR PRN tab 07/27/21 5-325] Allergies Allergy/AdvReac Type Severity Reaction Status Date / Time levofloxacin Allergy Anaphylaxis Verified 08/11/21 16:29 lisinopril Allergy Unknown Verified 08/11/21 16:29 memantine [From Namenda] Allergy Rash/Hives Verified 08/11/21 16:29 Review of Systems ROS Statement: Those systems with pertinent positive or pertinent negative responses have been documented in the HPI. ROS Other: All systems not noted in ROS Statement are negative. Past Medical History Past Medical History: Atrial Fibrillation, Asthma, COPD, Dementia, Hyperlipidemia, Hypertension, Memory Impairment, Renal Disease, Seizure Disorder, Vascular Disorder Additional Past Medical History / Comment(s): Aortic aneurysm, daughter states past fluid around lung that was drained off, CKD III, nephrolithiasis, UTI/cyst itis, one seizure in 2019, anemia, chronic back pain, bilateral ankle edema, FALLS History of Any Multi-Drug Resistant Organisms: None Reported Past Surgical History: Back Surgery, Hysterectomy, Orthopedic Surgery, Tonsillectomy, Tubal Ligation Additional Past Surgical History / Comment(s): D&C, EGD, colonoscopy, L hip jacquelin arthroplasty d/t fracure, R shoulder surgery d/t fracture-has hardware Past Anesthesia/Blood Transfusion Reactions: Motion Sickness Additional Past Anesthesia/Blood Transfusion Reaction / Comment(s): Pt has clausterphobia. Past Psychological History: Anxiety Smoking Status: Never smoker Past Alcohol Use History: None Reported Past Drug Use History: None Reported - Past Family History Mother Family Medical History: Hypertension Father Family Medical History: Coronary Artery Disease (CAD), Myocardial Infarction ([place]) Additional Family Medical History / Comment(s): Father of a [place] in his 70s. General Exam Limitations: no limitations General appearance: alert, in no apparent distress Head exam: Present: atraumatic, normocephalic Eye exam: Present: normal appearance, PERRL ENT exam: Present: normal exam Neck exam: Present: normal inspection. Absent: tenderness, meningismus Respiratory exam: Present: normal lung sounds bilaterally. Absent: respiratory distress, wheezes Cardiovascular Exam: Present: regular rate, normal rhythm GI/Abdominal exam: Present: soft. Absent: distended, tenderness Extremities exam: Present: normal inspection, normal capillary refill Neurological exam: Present: alert, CN II-XII intact. Absent: oriented X3 (2), motor sensory deficit Psychiatric exam: Present: normal affect, normal mood Skin exam: Present: warm, dry, intact. Absent: cyanosis, diaphoretic Course Vital Signs 08/11/21 16:12 Temperature 97.8 F Pulse Rate 84 Respiratory 16 Rate Blood Pressure 122/78 O2 Sat by Pulse 97 Oximetry EKG Findings - EKG Comments: EKG Findings:: Sinus rhythm rate of 90, T-wave inversion in the precordial leads CO interval 164, QRS duration 87, QTC [address] segment elevation. Medical Decision Making - Medical Decision Making 75-year-old female presenting with generalized weakness, poor appetite. Further history is obtained from daughter who is now at bedside, states she has not had much to eat or drink since her recent discharge. Patient is found to have leukocytosis, stable hemoglobin, she has hypokalemia at 3.0. Troponin is elevated in the range from prior admission no active chest pain. This level will be trended. Patient is anticoagulated. She continues to have no complaints while emergency department discussed case with Dr. Nguyen who will admit. - Lab Data Result diagrams: 08/11/21 16:34 08/11/21 16:34 Lab Results 08/11/21 08/11/21 08/11/21 Range/Units 16:34 16:34 16:34 WBC 15.3 H (3.8-10.6) k/uL RBC 3.78 L (3.80-5.40) m/uL Hgb 12.5 (11.4-16.0) gm/dL Hct 38.1 (34.0-46.0) % MCV 100.8 H (80.0-100.0) fL MCH 33.0 (25.0-35.0) pg MCHC 32.7 (31.0-37.0) g/dL RDW 14.8 (11.5-15.5) % Plt Count 266 (150-450) k/uL MPV 8.5 Neutrophils % 86 % Lymphocytes % 9 % Monocytes % 3 % Eosinophils % 1 % Basophils % 1 % Neutrophils # 13.1 H (1.3-7.7) k/uL Lymphocytes # 1.4 (1.0-4.8) k/uL Monocytes # 0.5 (0-1.0) k/uL Eosinophils # 0.2 (0-0.7) k/uL Basophils # 0.1 (0-0.2) k/uL Hypochromasia Slight Macrocytosis Slight PT 12.5 H (9.0-12.0) sec INR 1.2 H (<1.2) APTT 27.5 (22.0-30.0) sec Sodium (137-145) mmol/L Potassium (3.5-5.1) mmol/L Chloride (98-107) mmol/L Carbon Dioxide (22-30) mmol/L Anion Gap mmol/L BUN (7-17) mg/dL Creatinine (0.52-1.04) mg/dL Est GFR (CKD-EPI)AfAm (>60 ml/min/1.73 sqM) Est GFR (CKD-EPI)NonAf (>60 ml/min/1.73 sqM) Glucose (74-99) mg/dL Plasma Lactic Acid Nolberto (0.7-2.0) mmol/L Calcium (8.4-10.2) mg/dL Magnesium (1.6-2.3) mg/dL Total Bilirubin (0.2-1.3) mg/dL AST (14-36) U/L ALT (4-34) U/L Alkaline Phosphatase (38-126) U/L Troponin I (0.000-0.034) ng/mL Total Protein (6.3-8.2) g/dL Albumin (3.5-5.0) g/dL Urine Color Yellow Urine Appearance Clear (Clear) Urine pH 5.5 (5.0-8.0) Ur Specific [place] 1.007 (1.001-1.035) Urine Protein Trace H (Negative) Urine Glucose (UA) Negative (Negative) Urine Ketones Negative (Negative) Urine Blood Negative (Negative) Urine Nitrite Negative (Negative) Urine Bilirubin Negative (Negative) Urine Urobilinogen <2.0 (<2.0) mg/dL Ur Leukocyte Esterase Moderate H (Negative) Urine RBC 2 (0-5) /hpf Urine WBC 28 H (0-5) /hpf Urine Bacteria Few H (None) /hpf Hyaline Casts 16 H (0-2) /lpf Urine Mucus Rare H (None) /hpf 08/11/21 08/11/21 08/11/21 Range/Units 16:34 16:34 16:34 WBC (3.8-10.6) k/uL RBC (3.80-5.40) m/uL Hgb (11.4-16.0) gm/dL Hct (34.0-46.0) % MCV (80.0-100.0) fL MCH (25.0-35.0) pg MCHC (31.0-37.0) g/dL RDW (11.5-15.5) % Plt Count (150-450) k/uL MPV Neutrophils % % Lymphocytes % % Monocytes % % Eosinophils % % Basophils % % Neutrophils # (1.3-7.7) k/uL Lymphocytes # (1.0-4.8) k/uL Monocytes # (0-1.0) k/uL Eosinophils # (0-0.7) k/uL Basophils # (0-0.2) k/uL Hypochromasia Macrocytosis PT (9.0-12.0) sec INR (<1.2) APTT (22.0-30.0) sec Sodium 134 L (137-145) mmol/L Potassium 3.0 L (3.5-5.1) mmol/L Chloride 101 (98-107) mmol/L Carbon Dioxide 26 (22-30) mmol/L Anion Gap 7 mmol/L BUN 18 H (7-17) mg/dL Creatinine 1.15 H (0.52-1.04) mg/dL Est GFR (CKD-EPI)AfAm 54 (>60 ml/min/1.73 sqM) Est GFR (CKD-EPI)NonAf 47 (>60 ml/min/1.73 sqM) Glucose 117 H (74-99) mg/dL Plasma Lactic Acid Nolberto 2.0 (0.7-2.0) mmol/L Calcium 8.2 L (8.4-10.2) mg/dL Magnesium 1.7 (1.6-2.3) mg/dL Total Bilirubin 1.6 H (0.2-1.3) mg/dL AST 19 (14-36) U/L ALT 11 (4-34) U/L Alkaline Phosphatase 75 (38-126) U/L Troponin I 0.055 H* (0.000-0.034) ng/mL Total Protein 5.5 L (6.3-8.2) g/dL Albumin 3.0 L (3.5-5.0) g/dL Urine Color Urine Appearance (Clear) Urine pH (5.0-8.0) Ur Specific [place] (1.001-1.035) Urine Protein (Negative) Urine Glucose (UA) (Negative) Urine Ketones (Negative) Urine Blood (Negative) Urine Nitrite (Negative) Urine Bilirubin (Negative) Urine Urobilinogen (<2.0) mg/dL Ur Leukocyte Esterase (Negative) Urine RBC (0-5) /hpf Urine WBC (0-5) /hpf Urine Bacteria (None) /hpf Hyaline Casts (0-2) /lpf Urine Mucus (None) /hpf Disposition Clinical Impression: Decreased appetite, Urinary tract infection, Dehydration, Elevated troponin I measurement Disposition: ADMITTED IP TO THIS [facility] Condition: Stable Is patient prescribed a controlled substance at d/c from ED?: No Referrals: Lalo Nguyen MD [Primary Care Provider] - 1-2 days Time of Disposition: 18:36
[2021-08-11 16:52] LABS: Basophils # (A) 0.1 k/uL (0-0.2); Basophils % (A) 1 %; Eosinophils # (A) 0.2 k/uL (0-0.7); Eosinophils % (A) 1 %; HCT 38.1 % (34.0-46.0); HGB 12.5 gm/dL (11.4-16.0); Hypochromasia Slight; Lymphocytes # (A) 1.4 k/uL (1.0-4.8); Lymphocytes % (A) 9 %; MCHC 32.7 g/dL (31.0-37.0); MCV 100.8 fL (80.0-100.0); Macrocytosis Slight; Mean Platelet Volume 8.5; Monocytes # (A) 0.5 k/uL (0-1.0); Monocytes % (A) 3 %; Neutrophils # (A) 13.1 k/uL (1.3-7.7); Neutrophils % (A) 86 %; Platelet Count 266 k/uL (150-450); RBC 3.78 m/uL (3.80-5.40); RDW 14.8 % (11.5-15.5); WBC 15.3 k/uL (3.8-10.6)
[2021-08-11 17:05] LABS: INR 1.2 (<1.2); Partial Thromboplastin Time 27.5 sec (22.0-30.0); Prothrombin Time 12.5 sec (9.0-12.0)
[2021-08-11 17:06] LABS: Calcium 8.2 mg/dL (8.4-10.2); Magnesium 1.7 mg/dL (1.6-2.3); Total Bilirubin 1.6 mg/dL (0.2-1.3); Total Protein 5.5 g/dL (6.3-8.2)
--- NOTE | 2021-08-11 17:37 | XR ---
EXAMINATION TYPE: XR chest 2V DATE OF EXAM: 08/11/2021 COMPARISON: NONE HISTORY: Weakness TECHNIQUE: 2 view FINDINGS: There is no heart failure nor confluent pneumonic infiltrate. Thoracic aorta is atheromatou s and tortuous. There is thoracic kyphotic deformity and 80% wedging of a midthoracic vertebra. IMPRESSION: No active cardiopulmonary disease. Atheromatous aorta. No change.
--- NOTE | 2021-08-11 17:51 | CT ---
EXAMINATION TYPE: CT brain wo con DATE OF EXAM: 08/11/2021 COMPARISON: 11/05/2020 HISTORY: weakness CT DLP: 1098.4 mGycm Automated exposure control for dose reduction was used. Images of the brain obtained with no contrast There is cerebral cortical atrophy. There is no mass effect or midline shift. No sign of intracranial hemorrhage. There is some enlargement of the ventricles. There is hypodensity in the periventricular white matter. Calvarium is intact. IMPRESSION: Cerebral atrophy. Chronic small vessel ischemia. Mild hydrocephalus. No change compared to old exam. No acute abnormality.
[2021-08-11 18:25] LABS: Appearance,Urine Clear (Clear); Bacteria,Urine Few /hpf; Bilirubin,Urine Negative (Negative); Blood,Urine Negative (Negative); Color,Urine Yellow; Glucose,Urine (UA) Negative (Negative); Hyaline Casts,Urine 16 /lpf (0-2); Ketones,Urine Negative (Negative); Leukocyte Esterase,Urine Moderate (Negative); Mucus,Urine Rare /hpf; Nitrite,Urine Negative (Negative); PH, Urine 5.5 (5.0-8.0); Protein,Urine Trace (Negative); RBC,Urine 2 /hpf (0-5); Specific Gravity,Urine 1.007 (1.001-1.035); Urobilinogen,Urine <2.0 mg/dL (<2.0); WBC,Urine 28 /hpf (0-5)
[2021-08-11] MEDS ORDERED: POTASSIUM CHLORIDE ER 20 MEQ TAB.ER PO STA (18:28)
[2021-08-11] MEDS ORDERED: cefTRIAXone IN SWFI 1,000 MG/10 ML SYRINGE IVP STA (18:28)
[2021-08-11] MEDS ORDERED: NALOXONE 0.4 MG/ML 1 ML VIAL IV PRN (18:34)
[2021-08-11] MEDS: SODIUM CHLORIDE 0.9% 1,000 ML IV SCH (18:41)
[2021-08-11] MEDS ORDERED: ONDANSETRON 4 MG TAB PO PRN (19:33)
--- NOTE | 2021-08-11 20:07 | HP ---
HISTORY AND PHYSICAL This 75-year-old -[place] female came in with weakness for the past several days, brought in by paramedics reporting some slurred speech, unknown onset. Speech was clear in the ER per ER doctor. She has had generalized weakness. She has a bad COPD, worse after COVID this past. She had diastolic heart failure, trouble with insomnia, hypertension, GERD. HOME MEDICATIONS: 1. Singular 10 mg daily. 2. Ventolin HFA 2 puffs q.4 hours. 3. Metoprolol tartrate 25 mg b.i.d. 4. Prednisone 10 mg daily. 5. Eliquis 5 mg b.i.d. for atrial fibrillation. 6. Lipitor 20 mg daily for cholesterol. 7. Melatonin 10 mg daily. 8. Protonix 40 mg daily. 9. Potassium 20 mEq daily. 10.Megace 40 mg b.i.d. for poor appetite. 11.Zofran 4 mg q.8 hours. REVIEW OF SYSTEM: Fourteen-point review of systems otherwise negative except for bad breathing. PAST MEDICAL HISTORY: Atrial fibrillation, COPD, pulmonary fibrosis, dementia, hypertension, dyslipidemia, memory impairment, worsening gait and strength and function, chronic renal disease, seizure disorder, nephrolithiasis, recurrent UTIs, history of seizure. PAST SURGICAL HISTORY: Back surgery, hysterectomy, orthopedic surgery, tonsillectomy, tubal ligation, recent thoracic lumbar fracture, compression fracture. She was treated with LSO brace, which she cannot wear at home. She had D and C, EGD, colonoscopy, shoulder surgery of the right, left hip surgery. SOCIAL HISTORY: She lives with a daughter. No smoking. No alcohol. FAMILY MEDICAL HISTORY: Mother with hypertension. Father with coronary disease. PHYSICAL EXAMINATION: Temperature 97.8, pulse 84, respiratory rate 16 to 18, blood pressure 122/78, O2 97 to 99. She was weak, fatigued. Integument: Dry skin turgor mucous membranes. HEENT normocephalic, atraumatic. Speech appears clear at this time. She is giving appropriate answers. Neurologic: Cranial nerves appear to be intact. Psych: Fair mood and affect. Respiratory: Mild wheeze x4. Cardiovascular S1-S2. Pupils equal, round, reactive. Temperature 97.8, pulse 70s to 80s, respiratory rate 16 to 18, blood pressure 122/70, O2 97. EKG sinus rhythm. ASSESSMENT: This is a 75-year-old female with generalized weakness, hypokalemia, leukocytosis of unclear etiology, possible UTI, recurrent UTI with elevated neutrophil count and white count . Check urine culture. Hydrocephalus with gait imbalance. Will get neurology consult. Hypokalemia; replace potassium. COPD, pulmonary fibrosis. Continue home medications. Possibly some mild dehydration. Continue with fluids. Protein- calorie malnutrition, moderate. Continue with protein supplements. Possibly custodial placement will be needed, as she has generalized weakness. Prognosis guarded. MMODL / IJN: [id number] /
[2021-08-11] MEDS: SYMBICORT 160-4.5 MCG INHALER INHALATION SCH (20:13)
[2021-08-11] MEDS: methylPREDNISolone SOD SUCCI 40 MG/ML 1 ML VIAL IV SCH (21:49)
[2021-08-11] MEDS: ATORVASTATIN 20 MG TAB PO SCH (21:50)
[2021-08-11] MEDS: APIXABAN 5 MG TAB PO SCH (21:50)
[2021-08-11] MEDS: MONTELUKAST 10 MG TAB PO SCH (21:50)
[2021-08-11] MEDS: MELATONIN 5 MG TABLET PO SCH (21:50)
[2021-08-11] MEDS: METOPROLOL SUCCINATE (ER) 25 MG TAB.ER.24H PO SCH (21:50)
[2021-08-12] MEDS: methylPREDNISolone SOD SUCCI 40 MG/ML 1 ML VIAL IV SCH ×3 (02:59→17:02)
[2021-08-12 06:25] LABS: Glucose,Whole Blood 119 mg/dL (70-110)
[2021-08-12] MEDS: PANTOPRAZOLE 40 MG TABLET PO SCH (06:27)
[2021-08-12 08:27] LABS: Basophils % (A) 0 %; Eosinophils % (A) 0 %; HCT 36.9 % (34.0-46.0); HGB 11.9 gm/dL (11.4-16.0); Hypochromasia Slight; Lymphocytes # (A) 0.8 k/uL (1.0-4.8); Lymphocytes % (A) 8 %; MCH 33.3 pg (25.0-35.0); MCHC 32.3 g/dL (31.0-37.0); Macrocytosis Slight; Mean Platelet Volume 8.1; Monocytes # (A) 0.1 k/uL (0-1.0); Monocytes % (A) 1 %; Neutrophils # (A) 8.8 k/uL (1.3-7.7); Neutrophils % (A) 90 %; Platelet Count 264 k/uL (150-450); RBC 3.58 m/uL (3.80-5.40); WBC 9.7 k/uL (3.8-10.6)
[2021-08-12] MEDS: POTASSIUM CHLORIDE ER 20 MEQ TAB.ER PO SCH (08:27)
[2021-08-12] MEDS: APIXABAN 5 MG TAB PO SCH ×2 (08:28→19:59)
[2021-08-12] MEDS: SODIUM CHLORIDE 0.9% 1,000 ML IV SCH ×2 (08:28→20:01)
[2021-08-12] MEDS: METOPROLOL SUCCINATE (ER) 25 MG TAB.ER.24H PO SCH ×2 (08:28→20:00)
[2021-08-12 08:55] LABS: Albumin 2.9 g/dL (3.5-5.0); Calcium 7.7 mg/dL (8.4-10.2); Potassium 3.7 mmol/L (3.5-5.1); Total Bilirubin 0.8 mg/dL (0.2-1.3); Total Protein 5.4 g/dL (6.3-8.2)
[2021-08-12] MEDS: SYMBICORT 160-4.5 MCG INHALER INHALATION SCH ×2 (08:55→20:33)
--- NOTE | 2021-08-12 11:18 | P.CNNES ---
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 Some of the history is obtained from medical record. It seems that the patient has been having increased weakness for the past several days and family reported some slurred speech unknown onset but per logistics support day notified the ED team didn't appreciate any slurred speech and when she presented to the ED was not noticeable to the ED team as well. Neurology is consulted by the primary c are because of hydrocephalus and gait imbalance. Of note the patient is known to our neurology service and the last time the patient was evaluated was by me on 06/01/2021 because of low back pain is seems the patient has bilateral neural foraminal stenosis on T7 to T8 with minimal spinal canal stenosis on the CT. Orthopedic at that time was on board. Please refer to our notes for further details. Some other workup in our facility during his hospital visit consisted of: Patient has been afebrile so far Initial white blood cells 15.3 thousand and the repeated is 9.7 which normalized. Potassium 3.0, creatinine is 1.15, calcium is 8.2, troponin is 0.055 and the most recent one is 0.048. Urinalysis seems possible suggestive of urinary tract infection. CT of the head is reported as cerebral atrophy. Chronic small vessel ischemia. Mild hydrocephalus. No change compared to old exam. No acute abnormality. I personally reviewed the CT of the head and I agree with the finding and when I compared to the 11/05/2020 it's unchanged. Regarding the hydrocephalus patient does have mild dilated ventricles but it's predominantly dilated mostly in the lateral ventricle over the posterior horn bilaterally. Review of Systems Review of system: The 12 point system was reviewed and apparent positive and negative per HPI. Past Medical History Past Medical History: Atrial Fibrillation, Asthma, COPD, Dementia, Hyperlipidemia, Hypertension, Memory Impairment, Renal Disease, Seizure Disorder, Vascular Disorder Additional Past Medical History / Comment(s): Aortic aneurysm, daughter states past fluid around lung that was drained off, CKD III, nephrolithiasis, UTI/cystitis, one seizure in 2019, anemia, chronic back pain, bilateral ankle edema, FALLS History of Any Multi-Drug Resistant Organisms: None Reported Past Surgical History: Back Surgery, Hysterectomy, Orthopedic Surgery, Tonsillectomy, Tubal Ligation Additional Past Surgical History / Comment(s): D&C, EGD, colonoscopy, L hip hemiarthroplasty d/t fracure, R shoulder surgery d/t fracture-has hardware Past Anesthesia/Blood Transfusion Reactions: Motion Sickness Additional Past Anesthesia/Blood Transfusion Reaction / Comment(s): Pt has clausterphobia. Past Psychological History: Anxiety Additional Psychological History / Comment(s): Pt resides with her daughter, Analisa who is her legal guardian/caregiver. She uses a walker to ambulate. Her daughter is her caregiver, she assists pt with bathing/dressing and manages her medications and also drives her to appts. Smoking Status: Never smoker Past Alcohol Use History: None Reported Past Drug Use History: None Reported - Past Family History Mother Family Medical History: Hypertension Father Family Medical History: Coronary Artery Disease (CAD), Myocardial Infarction ([place]) Additional Family Medical History / Comment(s): Father of a [place] in his 70s. Medications and Allergies Home Medications Medication Instructions Recorded Confirmed Type Montelukast Sodium [Singulair] 10 mg PO HS 10/01/19 08/11/21 History Albuterol Sulfate [Ventolin HFA] 2 puff INHALATION RT-Q4H PRN 05/05/20 08/11/21 History Metoprolol Succinate (ER) [Toprol 25 mg PO BID 02/10/21 08/11/21 History XL] Nitroglycerin Sl Tabs [Nitrostat] 0.4 mg SL Q5M PRN 05/22/21 08/11/21 History predniSONE 10 mg PO DAILY 05/22/21 08/11/21 History Apixaban [Eliquis] 5 mg PO BID 06/10/21 08/11/21 History Atorvastatin [Lipitor] 20 mg PO HS 06/10/21 08/11/21 History Melatonin 10 mg PO HS 06/10/21 08/11/21 History Pantoprazole [Protonix] 40 mg PO DAILY 06/10/21 08/11/21 History Potassium Chloride ER [K-Dur 20] 20 meq PO DAILY 06/10/21 08/11/21 History Budesonide-Formot 160-4.5 Mcg 2 puff INHALATION RT-BID gm 06/11/21 08/11/21 Rx [Symbicort 160-4.5 Mcg Inhaler] Megestrol [Megace] 40 mg PO BID 07/22/21 08/11/21 History Ondansetron [Zofran] 4 mg PO Q8HR PRN 07/22/21 08/11/21 History Amiodarone [Cordarone] See Taper PO DIRECTED 08/11/21 08/11/21 History HYDROcodone/APAP 5-325MG [[place] 1 tab PO TID PRN 08/11/21 08/11/21 History 5-325] Allergies Allergy/AdvReac Type Severity Reaction Status Date / Time levofloxacin Allergy Anaphylaxis Verified 08/11/21 20:09 lisinopril Allergy Unknown Verified 08/11/21 20:09 memantine [From Namenda] Allergy Rash/Hives Verified 08/11/21 20:09 Physical Examination - Vital Signs Vital Signs: Vital Signs Temp Pulse Pulse Resp BP BP Pulse Ox 08/12/21 08:00 97.9 F 71 18 140/98 100 08/12/21 03:30 97.6 F 72 17 130/95 99 08/12/21 03:29 97.6 F 72 17 130/95 99 08/12/21 02:00 16 98 08/12/21 01:00 98.5 F 80 14 128/89 96 08/11/21 21:00 89 16 119/86 08/11/21 18:46 86 16 117/87 99 08/11/21 16:12 97.8 F 84 16 122/78 97 Intake and Output 08/11/21 08/12/21 08/12/21 22:59 06:59 14:59 Other: # Bowel Movements 1 Weight 65.771 kg 65.771 kg GENERAL: The patient is lying in bed and is not in acute distress. CHEST: The heart rate is regular rate rhythm. No murmurs to auscultation. LUNG: Clear to auscultation bilaterally no wheezing noted throughout. Not labored breathing. ABDOMEN/GI: Bowel sounds present in all 4 quadrants. No tenderness to palpation throughout. NEUROLOGICAL: Higher mental function: The patient is awake, alert, oriented to self. She stated the current year is 1945 and could not tell me month. She states she was over her house. She was able to identify new simple objects (such as pen). Patient is following simple commands. No aphasia and no neglect. Cranial nerves: The pupils are round, equal and reactive to light. Visual shea could not be assessed because of her cooperation. No facial weakness. Tongue is midline and moves side to side without difficulty. No dysarthria. Motor: The strength is right forearm extension is 4+ but somewhat limited because of her cooperation. Otherwise lifting all above gravity. Normal tone and bulk. Cerebellum: Normal finger to nose bilaterally. Sensation: Sensation is normal to touch throughout. Reflexes (right/left):Could not be assessed because of her refusal. Plantars are mute bilaterally. Results - Laboratory Findings CBC and BMP: 08/12/21 08:00 08/12/21 08:00 Abnormal Lab Findings: Abnormal Labs 08/11/21 08/11/21 08/11/21 16:34 16:34 16:34 WBC 15.3 H RBC 3.78 L MCV 100.8 H Neutrophils # 13.1 H Lymphocytes # PT 12.5 H INR 1.2 H Sodium Potassium BUN Creatinine Glucose POC Glucose (mg/dL) Calcium Total Bilirubin Troponin I Total Protein Albumin Urine Protein Trace H Ur Leukocyte Esterase Moderate H Urine WBC 28 H Urine Bacteria Few H Hyaline Casts 16 H Urine Mucus Rare H 08/11/21 08/11/21 08/11/21 16:34 16:34 20:54 WBC RBC MCV Neutrophils # Lymphocytes # PT INR Sodium 134 L Potassium 3.0 L BUN 18 H Creatinine 1.15 H Glucose 117 H POC Glucose (mg/dL) Calcium 8.2 L Total Bilirubin 1.6 H Troponin I 0.055 H* 0.042 H* Total Protein 5.5 L Albumin 3.0 L Urine Protein Ur Leukocyte Esterase Urine WBC Urine Bacteria Hyaline Casts Urine Mucus 08/12/21 08/12/21 08/12/21 00:10 06:21 08:00 WBC RBC 3.58 L MCV 103.0 H Neutrophils # 8.8 H Lymphocytes # 0.8 L PT INR Sodium Potassium BUN Creatinine Glucose POC Glucose (mg/dL) 119 H Calcium Total Bilirubin Troponin I 0.048 H* Total Protein Albumin Urine Protein Ur Leukocyte Esterase Urine WBC Urine Bacteria Hyaline Casts Urine Mucus Assessment and Plan Assessment: Encephalopathy likely due to underlying metabolic encephalopathy as well as underlying suspected acute tract infection and from her advance dementia Gait imbalance possibly due to multifactorial: Likely due to a component of mild hydrocephalus possibly suggestive of normal pressure hydrocephalus and her chronic low back pain and had bilateral neural foraminal stenosis over T7-T8 Suspected acute UTI Advanced dementia Atrial fibrillation on eliquis History of ortic aneurysm History of 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 I recommend the patient follow up with neurologist and neurosurgeon as outpatient if the family desires so for further consideration of a large volume tap and if improvement can pursue with B[employer]PER[employer] shunt as outpatient Physical therapy is consulted I also consulted occupation therapy Patient is on eliquis and because of her gait imbalance there is a risk of falls leading to bleed, consider avoid anticoagulation. But will defer the final decision of use of anticoagulation between cardiology and primary team. Cardiology is consulted for elevated troponin Consider orthostatic vitals. We'll defer the rest of medical management to the primary team. Recommend the patient follow up with a neurologist as an outpatient within 2 weeks. The plan is discussed with her nurse. Thank you for the consultation. Otherwise no additional workup is needed. Please notify neurology team if any further concerns. Slueman Chandler M.D. Neuro-hospitalist Time with Patient: Greater than 30
[2021-08-12 11:42] LABS: Glucose,Whole Blood 99 mg/dL (70-110)
--- NOTE | 2021-08-12 14:06 | P.CRDCN ---
History of Present Illness History of present illness: This is a pleasant 75-year-old with past medical history significant for advanced dementia, postural hypotension, chronic kidney disease, hypertension, paroxysmal atrial fibrillation on Eliquis, Bronchitis. She used to follow in the office with Dr. Smart. We are being consulted for elevated troponin. Patient is a poor historian unable to state why she came to the hospital. She has no complaints at bedside. Denies any pain, chest pain, shortness of breath. DIAGNOSTICS EKG on admission revealed sinus rhythm HR 900s, T wave inversions inferior anterior and lateral leads, similar to prior EKG Most recent echo 06/2021 revealed EF 5560%, moderately increase posterior wall thickness Laboratory data reviewed-troponin 0.055, 0.42, 0.48. on admission sodium 134, potassium 3.0, BUN 18, serum creatinine 1.1, WBC 15.3, hemoglobin 10.5, platelets 266 Patient was admitted to the hospital in November 2020 with complaints of chest pain and shortness of breath. She was evaluated by nuclear Stress test and echocardiogram. Nuclear stress test showed mild ischemia. She was evaluated Dr. Cotton, nuclear stress test was reviewed by cardiology and medical therapy was advised. REVIEW OF SYSTEMS At the time of my exam: CONSTITUTIONAL: Denies fever or chills. CARDIOVASCULAR: Denies chest pain, shortness of breath, orthopnea, PND or palpitations. RESPIRATORY: Denies cough. GASTROINTESTINAL: Denies abdominal pain, diarrhea, constipation, nausea or vomiting. MUSCULOSKELETAL: Denies myalgias. NEUROLOGIC: Denies numbness, tingling, headache or weakness. ENDOCRINE: Denies fatigue, weight change, polydipsia or polyurina. GENITOURINARY: Denies burning, hematuria or urgency with micturation. HEMATOLOGIC: Denies history of anemia or bleeding. PHYSICAL EXAMINATION Vital signs reviewed. CONSTITUTIONAL: No apparent distress. HEENT: Head is normocephalic. Pupils are equal, round. Sclerae anicteric. Mucous membranes of the mouth are moist. No JVD. No carotid bruit. CHEST EXAMINATION: Lungs with poor air exchange bilaterally bilaterally to auscultation. HEART EXAMINATION: Regular rate and rhythm. S1, S2 heard. No murmurs, gallops or rub. ABDOMEN: Soft, nontender. Positive bowel sounds. EXTREMITIES: 2+ peripheral pulses, no lower extremity edema and no calf tenderness. NEUROLOGIC EXAMINATION: Patient is awake, alert and oriented to person ASSESSMENT Elevated troponin, likely related to acute kidney injury Acute kidney injury Urinary tract infection Leukocytosis Dementia Altered mental status History asthma/COPD Paroxysmal atrial fibrillation on Eliquis, currently maintaining sinus mechanism History of Hypertension History of postural hypotension Chronic kidney disease PLAN We recommend treating elevated troponin medically at this time. Supportive care. Continue Eliquis, statin, beta gabriel Rest of management per primary We will follow the patient on an as needed basis. Please reconsult if needed. Nurse practitioner note has been reviewed by physician. Signing provider agrees with the documented findings, assessment, and plan of care. Past Medical History Past Medical History: Atrial Fibrillation, Asthma, COPD, Dementia, Hyperlipidemia, Hypertension, Memory Impairment, Renal Disease, Seizure Disorder, Vascular Disorder Additional Past Medical History / Comment(s): Aortic aneurysm, daughter states past fluid around lung that was drained off, CKD III, nephrolithiasis, UTI/cystitis, one seizure in 2019, anemia, chronic back pain, bilateral ankle edema, FALLS History of Any Multi-Drug Resistant Organisms: None Reported Past Surgical History: Back Surgery, Hysterectomy, Orthopedic Surgery, Tonsillectomy, Tubal Ligation Additional Past Surgical History / Comment(s): D&C, EGD, colonoscopy, L hip hemiarthroplasty d/t fracure, R shoulder surgery d/t fracture-has hardware Past Anesthesia/Blood Transfusion Reactions: Motion Sickness Additional Past Anesthesia/Blood Transfusion Reaction / Comment(s): Pt has clausterphobia. Past Psychological History: Anxiety Additional Psychological History / Comment(s): Pt resides with her daughter, Analisa who is her legal guardian/caregiver. She uses a walker to ambulate. Her daughter is her caregiver, she assists pt with bathing/dressing and manages her medications and also drives her to [employer]. Smoking Status: Never smoker Past Alcohol Use History: None Reported Past Drug Use History: None Reported - Past Family History Mother Family Medical History: Hypertension Father Family Medical History: Coronary Artery Disease (CAD), Myocardial Infarction ([place]) Additional Family Medical History / Comment(s): Father of a [place] in his 70s. Medications and Allergies Home Medications Medication Instructions Recorded Confirmed Type Montelukast Sodium [Singulair] 10 mg PO HS 10/01/19 08/11/21 History Albuterol Sulfate [Ventolin HFA] 2 puff INHALATION RT-Q4H PRN 05/05/20 08/11/21 History Metoprolol Succinate (ER) [Toprol 25 mg PO BID 02/10/21 08/11/21 History XL] Nitroglycerin Sl Tabs [Nitrostat] 0.4 mg SL Q5M PRN 05/22/21 08/11/21 History predniSONE 10 mg PO DAILY 05/22/21 08/11/21 History Apixaban [Eliquis] 5 mg PO BID 06/10/21 08/11/21 History Atorvastatin [Lipitor] 20 mg PO HS 06/10/21 08/11/21 History Melatonin 10 mg PO HS 06/10/21 08/11/21 History Pantoprazole [Protonix] 40 mg PO DAILY 06/10/21 08/11/21 History Potassium Chloride ER [K-Dur 20] 20 meq PO DAILY 06/10/21 08/11/21 History Budesonide-Formot 160-4.5 Mcg 2 puff INHALATION RT-BID gm 06/11/21 08/11/21 Rx [Symbicort 160-4.5 Mcg Inhaler] Megestrol [Megace] 40 mg PO BID 07/22/21 08/11/21 History Ondansetron [Zofran] 4 mg PO Q8HR PRN 07/22/21 08/11/21 History Amiodarone [Cordarone] See Taper PO DIRECTED 08/11/21 08/11/21 History HYDROcodone/APAP 5-325MG [[place] 1 tab PO TID PRN 08/11/21 08/11/21 History 5-325] Allergies Allergy/AdvReac Type Severity Reaction Status Date / Time levofloxacin Allergy Anaphylaxis Verified 08/11/21 20:09 lisinopril Allergy Unknown Verified 08/11/21 20:09 memantine [From Namenda] Allergy Rash/Hives Verified 08/11/21 20:09 Physical Exam Vitals: Vital Signs Temp Pulse Pulse Resp BP BP Pulse Ox 08/12/21 11:23 97.9 F 78 18 135/78 99 08/12/21 11:08 18 08/12/21 08:00 97.9 F 71 18 140/98 100 08/12/21 03:30 97.6 F 72 17 130/95 99 08/12/21 03:29 97.6 F 72 17 130/95 99 08/12/21 02:00 16 98 08/12/21 01:00 98.5 F 80 14 128/89 96 08/11/21 21:00 89 16 119/86 08/11/21 18:46 86 16 117/87 99 08/11/21 16:12 97.8 F 84 16 122/78 97 Intake and Output 08/11/21 08/12/21 08/12/21 22:59 06:59 14:59 Other: # Bowel Movements 1 Weight 65.771 kg 65.771 kg Results 08/12/21 08:00 08/12/21 08:00 Cardiac Enzymes 08/11/21 08/11/21 08/11/21 Range/Units 16:34 16:34 20:54 AST 19 (14-36) U/L Troponin I 0.055 H* 0.042 H* (0.000-0.034) ng/mL 08/12/21 08/12/21 Range/Units 00:10 08:00 AST 14 (14-36) U/L Troponin I 0.048 H* (0.000-0.034) ng/mL Coagulation 08/11/21 Range/Units 16:34 PT 12.5 H (9.0-12.0) sec APTT 27.5 (22.0-30.0) sec CBC 08/11/21 08/12/21 Range/Units 16:34 08:00 WBC 15.3 H 9.7 (3.8-10.6) k/uL RBC 3.78 L 3.58 L (3.80-5.40) m/uL Hgb 12.5 11.9 (11.4-16.0) gm/dL Hct 38.1 36.9 (34.0-46.0) % Plt Count 266 264 (150-450) k/uL Comprehensive Metabolic Panel 08/11/21 08/12/21 Range/Units 16:34 08:00 Sodium 134 L 139 (137-145) mmol/L Potassium 3.0 L 3.7 (3.5-5.1) mmol/L Chloride 101 107 (98-107) mmol/L Carbon Dioxide 26 21 L (22-30) mmol/L BUN 18 H 17 (7-17) mg/dL Creatinine 1.15 H 0.93 (0.52-1.04) mg/dL Glucose 117 H 120 H (74-99) mg/dL Calcium 8.2 L 7.7 L (8.4-10.2) mg/dL AST 19 14 (14-36) U/L ALT 11 8 (4-34) U/L Alkaline Phosphatase 75 74 (38-126) U/L Total Protein 5.5 L 5.4 L (6.3-8.2) g/dL Albumin 3.0 L 2.9 L (3.5-5.0) g/dL Current Medications Generic Name Dose Route Start Last Admin Trade Name Freq PRN Reason Stop Dose Admin Acetaminophen 650 mg 08/11/21 18:34 Acetaminophen Tab 325 Mg Tab PO Q6HR PRN Mild Pain or Fever > 100.5 Hydrocodone Bitart/Acetaminophen 1 each 08/11/21 19:33 Hydrocodone/Apap 5-325mg 1 Each Tab PO Q6HR PRN Pain Albuterol Sulfate 2.5 mg 08/11/21 19:33 Albuterol Nebulized 2.5 Mg/3 Ml INHALATION RT-Q4H PRN Shortness Of Breath Apixaban 5 mg 08/11/21 21:00 08/12/21 08:28 Apixaban 5 Mg Tab PO 5 mg BID MACI Administration Protocol Atorvastatin Calcium 20 mg 08/11/21 21:00 08/11/21 21:50 Atorvastatin 20 Mg Tab PO 20 mg HS MACI Administration Budesonide/Formoterol Fumarate 2 puff 08/11/21 20:00 08/12/21 08:55 Symbicort 160-4.5 Mcg Inhaler INHALATION 2 puff RT-BID MACI Administration Sodium Chloride 1,000 mls @ 75 mls/hr 08/11/21 18:30 08/12/21 08:28 Saline 0.9% IV Not Given .[id number] MACI Ceftriaxone Sodium 1 gm/ 50 mls @ 100 mls/hr 08/12/21 09:00 08/12/21 08:27 Sodium Chloride IVPB 100 mls/hr Q24HR MACI Administration Protocol Melatonin 10 mg 08/11/21 21:00 08/11/21 21:50 Melatonin 5 Mg Tablet PO 10 mg HS MACI Administration Methylprednisolone Sodium Succinate 40 mg 08/11/21 20:00 08/12/21 08:28 Methylprednisolone Sod Succi 40 Mg/Ml 1 Ml Vial IV 40 mg Q8HR MACI Administration Metoprolol Succinate 25 mg 08/11/21 21:00 08/12/21 08:28 Metoprolol Succinate (Er) 25 Mg Tab.Er.24h PO 25 mg BID MACI Administration Montelukast Sodium 10 mg 08/11/21 21:00 08/11/21 21:50 Montelukast 10 Mg Tab PO 10 mg HS MACI Administration Naloxone HCl 0.2 mg 08/11/21 18:34 Naloxone 0.4 Mg/Ml 1 Ml Vial IV Q2M PRN Opioid Reversal Ondansetron HCl 4 mg 08/11/21 19:33 Ondansetron 4 Mg Tab PO Q8HR PRN Nausea Pantoprazole Sodium 40 mg 08/12/21 07:30 08/12/21 06:27 Pantoprazole 40 Mg Tablet PO 40 mg [id number] MACI Administration Potassium Chloride 20 meq 08/12/21 09:00 08/12/21 08:27 Potassium Chloride Er 20 Meq Tab.Er PO 20 meq DAILY MACI Administration Intake and Output 08/11/21 08/12/21 08/12/21 22:59 06:59 14:59 Other: # Bowel Movements 1 Weight 65.771 kg 65.771 kg 08/12/21 08:00 08/12/21 08:00
--- NOTE | 2021-08-12 15:29 | P.CNPUL ---
History of Present Illness Consult date: 08/12/21 Reason for consult: dyspnea, hypoxemia Chief complaint: Generalized weakness and tiredness and dyspnea on exertion History of present illness: 75-year-old female with prior medical history of the hypertension hypertensive cardiovascular disease has been hospitalized however discharged home brought back due to progressive weakness and inability to eat and swallow also had some component of slurred speech patient has significant history of asthma and asthmatic bronchitis with chronic low back pain, patient was having failure to thrive at home, urine cultures have been sent and results are pending, currently patient is on bronchodilator along with direct oral anticoagulant broad-spectrum antibiotics IV steroids along with her home medicine she is been gently rehydrated with normal saline as well, her white cell count arrival was 15,300 came down to 9000 and hemoglobin and hematocrit remained stable so as the p latelet count, PT/INR and quinine so within normal limit potassium was low of only 3 improved after potassium replacement sodium was 134 improved to 139, BUN/creatinine 18/1.15 improved to 17/0.93. Troponin was elevated 0.048 up from 0.042, admitted chest x-ray no active process identified computed tomography scan of the brain mild hydrocephalus with chronic changes Review of Systems All systems: negative Past Medical History Past Medical History: Atrial Fibrillation, Asthma, COPD, Dementia, Hyperlipidemia, Hypertension, Memory Impairment, Renal Disease, Seizure Disorder, Vascular Disorder Additional Past Medical History / Comment(s): Aortic aneurysm, daughter states past fluid around lung that was drained off, CKD III, nephrolithiasis, UTI/cystitis, one seizure in 2019, anemia, chronic back pain, bilateral ankle edema, FALLS History of Any Multi-Drug Resistant Organisms: None Reported Past Surgical History: Back Surgery, Hysterectomy, Orthopedic Surgery, Tonsillectomy, Tubal Ligation Additional Past Surgical History / Comment(s): D&C, EGD, colonoscopy, L hip hemiarthroplasty d/t fracure, R shoulder surgery d/t fracture-has hardware Past Anesthesia/Blood Transfusion Reactions: Motion Sickness Additional Past Anesthesia/Blood Transfusion Reaction / Comment(s): Pt has clausterphobia. Past Psychological History: Anxiety Additional Psychological History / Comment(s): Pt resides with her daughter, Analisa who is her legal guardian/caregiver. She uses a walker to ambulate. Her daughter is her caregiver, she assists pt with bathing/dressing and manages her medications and also drives her to appts. Smoking Status: Never smoker Past Alcohol Use History: None Reported Past Drug Use History: None Reported - Past Family History Mother Family Medical History: Hypertension Father Family Medical History: Coronary Artery Disease (CAD), Myocardial Infarction ([place]) Additional Family Medical History / Comment(s): Father of a [place] in his 70s. Medications and Allergies Home Medications Medication Instructions Recorded Confirmed Type Montelukast Sodium [Singulair] 10 mg PO HS 10/01/19 08/11/21 History Albuterol Sulfate [Ventolin HFA] 2 puff INHALATION RT-Q4H PRN 05/05/20 08/11/21 History Metoprolol Succinate (ER) [Toprol 25 mg PO BID 02/10/21 08/11/21 History XL] Nitroglycerin Sl Tabs [Nitrostat] 0.4 mg SL Q5M PRN 05/22/21 08/11/21 History predniSONE 10 mg PO DAILY 05/22/21 08/11/21 History Apixaban [Eliquis] 5 mg PO BID 06/10/21 08/11/21 History Atorvastatin [Lipitor] 20 mg PO HS 06/10/21 08/11/21 History Melatonin 10 mg PO HS 06/10/21 08/11/21 History Pantoprazole [Protonix] 40 mg PO DAILY 06/10/21 08/11/21 History Potassium Chloride ER [K-Dur 20] 20 meq PO DAILY 06/10/21 08/11/21 History Budesonide-Formot 160-4.5 Mcg 2 puff INHALATION RT-BID gm 06/11/21 08/11/21 Rx [Symbicort 160-4.5 Mcg Inhaler] Megestrol [Megace] 40 mg PO BID 07/22/21 08/11/21 History Ondansetron [Zofran] 4 mg PO Q8HR PRN 07/22/21 08/11/21 History Amiodarone [Cordarone] See Taper PO DIRECTED 08/11/21 08/11/21 History HYDROcodone/APAP 5-325MG [[place] 1 tab PO TID PRN 08/11/21 08/11/21 History 5-325] Allergies Allergy/AdvReac Type Severity Reaction Status Date / Time levofloxacin Allergy Anaphylaxis Verified 07/05/22 20:09 lisinopril Allergy Unknown Verified 08/11/21 20:09 memantine [From Namenda] Allergy Rash/Hives Verified 08/11/21 20:09 Physical Exam Vitals: Vital Signs Temp Pulse Pulse Resp BP BP Pulse Ox 08/12/21 11:23 97.9 F 78 18 135/78 99 08/12/21 11:08 18 08/12/21 08:00 97.9 F 71 18 140/98 100 08/12/21 03:30 97.6 F 72 17 130/95 99 08/12/21 03:29 97.6 F 72 17 130/95 99 08/12/21 02:00 16 98 08/12/21 01:00 98.5 F 80 14 128/89 96 08/11/21 21:00 89 16 119/86 08/11/21 18:46 86 16 117/87 99 08/11/21 16:12 97.8 F 84 16 122/78 97 Intake and Output 08/12/21 08/12/21 08/12/21 06:59 14:59 22:59 Other: # Bowel Movements 1 Weight 65.771 kg - Constitutional General appearance: average body habitus, mild distress - EENT Eyes: PERRLA Ears: bilateral: normal - Neck Neck: normal ROM Carotids: bilateral: upstroke normal Thyroid: bilateral: normal size - Respiratory Respiratory: bilateral: CTA - Cardiovascular Rhythm: regular Heart sounds: normal: S1, S2 - Neurologic Neurologic: CNII-XII intact - Musculoskeletal Musculoskeletal: generalized weakness, strength equal bilaterally - Psychiatric Psychiatric: appropriate affect, intact judgment & insight Results - Laboratory Findings CBC and BMP: 08/12/21 08:00 08/12/21 08:00 PT/INR, D-dimer PT 12.5 sec (9.0-12.0) H 08/11/21 16:34 INR 1.2 (<1.2) H 08/11/21 16:34 Abnormal lab findings: Abnormal Labs 08/11/21 08/11/21 08/11/21 16:34 16:34 16:34 WBC 15.3 H RBC 3.78 L MCV 100.8 H Neutrophils # 13.1 H Lymphocytes # PT 12.5 H INR 1.2 H Sodium Potassium Carbon Dioxide BUN Creatinine Glucose POC Glucose (mg/dL) Calcium Total Bilirubin Troponin I Total Protein Albumin Urine Protein Trace H Ur Leukocyte Esterase Moderate H Urine WBC 28 H Urine Bacteria Few H Hyaline Casts 16 H Urine Mucus Rare H 08/11/21 08/11/21 08/11/21 16:34 16:34 20:54 WBC RBC MCV Neutrophils # Lymphocytes # PT INR Sodium 134 L Potassium 3.0 L Carbon Dioxide BUN 18 H Creatinine 1.15 H Glucose 117 H POC Glucose (mg/dL) Calcium 8.2 L Total Bilirubin 1.6 H Troponin I 0.055 H* 0.042 H* Total Protein 5.5 L Albumin 3.0 L Urine Protein Ur Leukocyte Esterase Urine WBC Urine Bacteria Hyaline Casts Urine Mucus 08/12/21 08/12/21 08/12/21 00:10 06:21 08:00 WBC RBC 3.58 L MCV 103.0 H Neutrophils # 8.8 H Lymphocytes # 0.8 L PT INR Sodium Potassium Carbon Dioxide BUN Creatinine Glucose POC Glucose (mg/dL) 119 H Calcium Total Bilirubin Troponin I 0.048 H* Total Protein Albumin Urine Protein Ur Leukocyte Esterase Urine WBC Urine Bacteria Hyaline Casts Urine Mucus 08/12/21 08:00 WBC RBC MCV Neutrophils # Lymphocytes # PT INR Sodium Potassium Carbon Dioxide 21 L BUN Creatinine Glucose 120 H POC Glucose (mg/dL) Calcium 7.7 L Total Bilirubin Troponin I Total Protein 5.4 L Albumin 2.9 L Urine Protein Ur Leukocyte Esterase Urine WBC Urine Bacteria Hyaline Casts Urine Mucus - Diagnostic Findings Chest x-ray: report reviewed, image reviewed (Finding as noted above) Assessment and Plan Assessment: Failure to thrive Urinary tract infection Electrolyte imbalance with hypokalemia and hyponatremia Elevated troponin likely related to demand ischemia Developing progressive weakness Mild hydrocephalus Low back pain due to herniated thoracic vertebrae disc and DJD of spine Hypertension hypertensive cardiovascular disease Plan: Taper oxygen check pulse ox at room air if more than 92% can DC oxygen Agree with broad-spectrum antibiotics for urinary tract infection Continue replace electrolytes including potassium PT OT evaluation Elevated troponin likely related to demand ischemia Continue gentle hydration Deep breathing sense incentive spirometry Continue home medications Further plan of care as per clinical response of the patient Time with Patient: Greater than 30
[2021-08-12 16:47] LABS: Glucose,Whole Blood 159 mg/dL (70-110)
[2021-08-12] MEDS: MELATONIN 5 MG TABLET PO SCH (19:59)
[2021-08-12] MEDS: ATORVASTATIN 20 MG TAB PO SCH (19:59)
[2021-08-12] MEDS: MONTELUKAST 10 MG TAB PO SCH (20:00)
[2021-08-12 20:26] LABS: Glucose,Whole Blood 155 mg/dL (70-110)
[2021-08-13] MEDS: methylPREDNISolone SOD SUCCI 40 MG/ML 1 ML VIAL IV SCH ×4 (00:56→23:13)
[2021-08-13 06:31] LABS: Glucose,Whole Blood 116 mg/dL (70-110)
[2021-08-13] MEDS: PANTOPRAZOLE 40 MG TABLET PO SCH (06:58)
[2021-08-13] MEDS: POTASSIUM CHLORIDE ER 20 MEQ TAB.ER PO SCH (08:34)
[2021-08-13] MEDS: APIXABAN 5 MG TAB PO SCH ×2 (08:34→21:10)
[2021-08-13] MEDS: METOPROLOL SUCCINATE (ER) 25 MG TAB.ER.24H PO SCH ×2 (08:34→21:10)
--- NOTE | 2021-08-13 08:35 | PN ---
PROGRESS NOTE 75-year-old female who came in with COPD exacerbation, encephalopathy, possible UTI, dehydration. She is eating a little bit better today. She is more alert. Steroids are improving her breathing. She is 98 on 1 L. Temperature 98.1, pulse 72, respiratory rate 18, blood pressure 120s to 130s over 80s to 90s. Labs today show potassium 3.7, sodium 137, sugars mid 100s. White count 9.7. Remains on broad-spectrum antibiotics. Albumin is 2.9. We will continue giving nutritional support. Pulmonology and Neurology saw the patient. Cardiology also saw her. Continue current treatments. Try to improve her strength PT/OT, ambulate her. CT scan is unchanged - hydrocephalus. The patient does have mild dilated ventricles but is predominantly dilated mostly in the lateral ventricle over the posterior horn bilaterally. History of atrial fibrillation, COPD, asthma, dementia, and hypertension, dyslipidemia. Continue current treatments. Encephalopathy most likely due to UTI, possible dehydration, advanced dementia, gait disturbance, mild hydrocephalus, UTI, dementia, atrial fibrillation, aortic aneurysm, bilateral neuroforaminal stenosis. Please see further recommendations by Cardiology, Pulmonary, and Neuro, PT/OT. Advance diet as tolerated. MMODL / IJN: [id number] /
[2021-08-13] MEDS: SYMBICORT 160-4.5 MCG INHALER INHALATION SCH ×2 (11:19→19:03)
--- NOTE | 2021-08-13 12:00 | P.PN ---
Subjective Progress Note Date: 08/13/21 I spoke with the patient's daughter who is at bedside and stated that her mother has been having unsteady gait for the past 3 months. She has Dementia for past 5 years and progressively worsening (started initially with short term). She is following-up with Dr. Olivier for her neurological management and was told she has neuropathy for past one year. Objective - Vital Signs Vital signs: Vital Signs Temp 97.9 F 08/13/21 11:05 Pulse 80 08/13/21 11:05 Resp 20 08/13/21 11:05 BP 163/114 08/13/21 11:05 Pulse Ox 98 08/13/21 11:05 FiO2 Intake & Output 08/12/21 08/13/21 08/13/21 18:59 06:59 18:59 Output Total 0 Balance 0 Output: Urine 0 Other: Voiding Method Bedside Commode Bedside Commode External Catheter External Catheter # Voids 1 # Bowel Movements 1 1 - Exam GENERAL: The patient is lying in bed and is not in acute distress. NEUROLOGICAL: Higher mental function: The patient is awake, alert, oriented to self, stated she was in the hospital. Again she stated the current year is 1945 but then stated "No, that is my birthday and I am not sure". Patient is following simple commands. No aphasia and no neglect. Cranial nerves: The pupils are round, equal and reactive to light. Visual fiel ds could not be assessed because of her cooperation. No facial weakness. Tongue is midline and moves side to side without difficulty. No dysarthria. Motor: The strength is right forearm extension is 4+ but somewhat limited because of her cooperation. Otherwise lifting all above gravity. Normal tone and bulk. Cerebellum: Normal finger to nose bilaterally. Sensation: Sensation is normal to touch throughout. Reflexes (right/left):Could not be assessed because of her refusal. Plantars are mute bilaterally. Some other workup in our facility during his hospital visit consisted of: Patient has been afebrile so far Initial white blood cells 15.3 thousand and the repeated is 9.7 which normalized. Potassium 3.0, creatinine is 1.15, calcium is 8.2, troponin is 0.055 and the most recent one is 0.048. Urine culture is gram neg bacilli. CT of the head is reported as cerebral atrophy. Chronic small vessel ischemia. Mild hydrocephalus. No change compared to old exam. No acute abnormality. I personally reviewed the CT of the head and I agree with the finding and when I compared to the 11/05/2020 it's unchanged. Regarding the hydrocephalus patient does have mild dilated ventricles but it's predominantly dilated mostly in the lateral ventricle over the posterior horn bilaterally. - Labs CBC & Chem 7: 08/12/21 08:00 08/12/21 08:00 Labs: Abnormal Lab Results - Last 24 Hours (Table) 08/12/21 08/12/21 08/13/21 Range/Units 16:46 20:24 06:30 POC Glucose (mg/dL) 159 H 155 H 116 H (70-110) mg/dL Microbiology - Last 24 Hours (Table) 08/11/21 16:34 Urine Culture - Preliminary Urine,Voided Gram Neg Bacilli Assessment and Plan Assessment: Encephalopathy likely due to underlying metabolic encephalopathy as well as underlying acute tract infection and from her advance dementia Gait imbalance for past 3 months possibly due to multifactorial: Likely due to a component of mild hydrocephalus possibly suggestive of normal pressure hydrocephalus and her chronic low back pain and had bilateral neural foraminal stenosis over T7-T8 and neuropathy Acute UTI Advanced dementia (per daughter for past 5 years) Atrial fibrillation on eliquis History of ortic aneurysm History of 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 I recommend the patient follow up with neurologist and neurosurgeon as outpatient if the family desires so for further consideration of a large volume tap and if improvement can pursue with VIBRATOR OPERATOR shunt as outpatient. The daughter does not want any surgical intervention to be performed as inpatient or outpatient but will consider speaking with her neurologist as outpatient. Physical therapy and occupation therapy are consulted. Patient is on eliquis and because of her gait imbalance there is a risk of falls leading to bleed, consider avoid anticoagulation. But will defer the final decision of use of anticoagulation between cardiology and primary team. Cardiology is consulted for elevated troponin Consider orthostatic vitals. We'll defer the rest of medical management to the primary team. Recommend the patient follow up with her neurologist (Dr. Olivier) as an outpatient within 1-2 weeks. The plan is discussed with her daughter who is at bedside and nurse. Otherwise no additional workup is needed. Will sign off. Please notify neurology team if any further concerns. Suleman Chandler M.D. Neuro-hospitalist Time with Patient: Less than 30
[2021-08-13 12:08] LABS: Glucose,Whole Blood 131 mg/dL (70-110)
[2021-08-13] MEDS: ALPRAZolam 0.25 MG TAB PO PRN (12:49)
--- NOTE | 2021-08-13 15:49 | P.PN ---
Subjective Progress Note Date: 08/13/21 Principal diagnosis: Failure to thrive Urinary tract infection Electrolyte imbalance with hypokalemia and hyponatremia Elevated troponin likely related to demand ischemia Developing progressive weakness Mild hydrocephalus Low back pain due to herniated thoracic vertebrae disc and DJD of spine Hypertension hypertensive cardiovascular disease 08/13/2021, patient seen and evaluated examined during the round labs reviewed medications reviewed, mild dyspnea on exertion is present denies any chest pain, room air oxygen saturation is 95% to 99%, patient remains afebrile and hemodynamically stable, urine cultures are growing gram-negative rods, patient remains on pain medicines and the anxiety medicine has been on direct oral anticoagulant along with Rocephin already doing well has been afebrile WBC count is down 75-year-old female with prior medical history of the hypertension hypertensive cardiovascular disease has been hospitalized however discharged home brought back due to progressive weakness and inability to eat and swallow also had some component of slurred speech patient has significant history of asthma and asthmatic bronchitis with chronic low back pain, patient was having failure to thrive at home, urine cultures have been sent and results are pending, currently patient is on bronchodilator along with direct oral anticoagulant broad-spectrum antibiotics IV steroids along with her home medicine she is been gently rehydrated with normal saline as well, her white cell count arrival was 15,300 came down to 9000 and hemoglobin and hematocrit remained stable so as the platelet count, PT/INR and quinine so within normal limit potassium was low of only 3 improved after potassium replacement sodium was 134 improved to 139, BUN/creatinine 18/1.15 improved to 17/0.93. Troponin was elevated 0.048 up from 0.042, admitted chest x-ray no active process identified computed tomography scan of the brain mild hydrocephalus with chronic changes Objective - Vital Signs Vital signs: Vital Signs Temp 97.8 F 08/13/21 15:36 Pulse 74 08/13/21 15:36 Resp 14 08/13/21 15:36 BP 118/84 08/13/21 15:36 Pulse Ox 99 08/13/21 15:36 FiO2 Intake & Output 08/12/21 08/13/21 08/13/21 18:59 06:59 18:59 Output Total 0 Balance 0 Weight 65.771 kg Output: Urine 0 Other: Voiding Method Bedside Commode Bedside Commode External Catheter External Catheter # Voids 1 # Bowel Movements 1 1 - Exam - Constitutional General appearance: average body habitus, mild distress - EENT Eyes: PERRLA Ears: bilateral: normal - Neck Neck: normal ROM Carotids: bilateral: upstroke normal Thyroid: bilateral: normal size - Respiratory Respiratory: bilateral: CTA - Cardiovascular Rhythm: regular Heart sounds: normal: S1, S2 - Neurologic Neurologic: CNII-XII intact - Musculoskeletal Musculoskeletal: generalized weakness, strength equal bilaterally - Psychiatric Psychiatric: appropriate affect, intact judgment & insight - Labs CBC & Chem 7: 08/12/21 08:00 08/12/21 08:00 Labs: Abnormal Lab Results - Last 24 Hours (Table) 08/12/21 08/12/21 08/13/21 Range/Units 16:46 20:24 06:30 POC Glucose (mg/dL) 159 H 155 H 116 H (70-110) mg/dL 08/13/21 Range/Units 12:05 POC Glucose (mg/dL) 131 H (70-110) mg/dL Microbiology - Last 24 Hours (Table) 08/11/21 16:34 Urine Culture - Preliminary Urine,Voided Gram Neg Bacilli Assessment and Plan Assessment: Failure to thrive Urinary tract infection due to gram-negative vini Electrolyte imbalance with hypokalemia and hyponatremia Elevated troponin likely related to demand ischemia Developing progressive weakness Mild hydrocephalus Low back pain due to herniated thoracic vertebrae disc and DJD of spine Hypertension hypertensive cardiovascular disease Plan: Monitor patient off of oxygen Agree with broad-spectrum antibiotics for urinary tract infection Continue replace electrolytes including potassium PT OT evaluation Elevated troponin likely related to demand ischemia Continue gentle hydration Deep breathing sense incentive spirometry Continue home medications Further plan of care as per clinical response of the patient Time with Patient: Greater than 30
[2021-08-13 16:39] LABS: Glucose,Whole Blood 182 mg/dL (70-110)
[2021-08-13] MEDS: SODIUM CHLORIDE 0.9% 1,000 ML IV SCH ×2 (17:48→21:14)
[2021-08-13] MEDS: ALBUTEROL NEBULIZED 2.5 MG/3 ML INHALATION PRN (19:03)
[2021-08-13 20:34] LABS: Glucose,Whole Blood 157 mg/dL (70-110)
[2021-08-13] MEDS: MONTELUKAST 10 MG TAB PO SCH (21:09)
[2021-08-13] MEDS: MELATONIN 5 MG TABLET PO SCH (21:10)
[2021-08-13] MEDS: ATORVASTATIN 20 MG TAB PO SCH (21:10)
[2021-08-14] MEDS: PANTOPRAZOLE 40 MG TABLET PO SCH (06:25)
[2021-08-14 06:30] LABS: Glucose,Whole Blood 117 mg/dL (70-110)
[2021-08-14] MEDS: SYMBICORT 160-4.5 MCG INHALER INHALATION SCH ×2 (08:56→20:39)
[2021-08-14] MEDS: ALBUTEROL NEBULIZED 2.5 MG/3 ML INHALATION PRN (08:56)
[2021-08-14] MEDS: APIXABAN 5 MG TAB PO SCH ×2 (09:41→20:54)
[2021-08-14] MEDS: METOPROLOL SUCCINATE (ER) 25 MG TAB.ER.24H PO SCH ×2 (09:41→20:54)
[2021-08-14] MEDS: POTASSIUM CHLORIDE ER 20 MEQ TAB.ER PO SCH (09:41)
[2021-08-14] MEDS: methylPREDNISolone SOD SUCCI 40 MG/ML 1 ML VIAL IV SCH ×3 (09:42→23:34)
[2021-08-14 11:56] LABS: Glucose,Whole Blood 168 mg/dL (70-110)
[2021-08-14] MEDS: MEGESTROL 400 MG/10 ML CUP PO SCH (13:55)
--- NOTE | 2021-08-14 15:43 | PN ---
PROGRESS NOTE DATE OF SERVICE: 08/13/2021 75-year-old white female who has poor appetite. Get dietary consult. Started her Megace back. Continue with IV antibiotics for UTI. She has very poor intake. She is on Solu-Medrol for COPD exacerbation, will start her Megace back. Continue her oral intake improvement. Get dietary consult. Treat for UTI. PT/OT, possible jail placement. Discussed with family and patient. MMODL / IJN: [id number] /
[2021-08-14 16:44] LABS: Glucose,Whole Blood 199 mg/dL (70-110)
[2021-08-14] MEDS: INSULIN ASPART (NovoLOG) 100 UNIT/ML VIAL SQ SCH ×2 (17:42→20:46)
[2021-08-14] MEDS: ALPRAZolam 0.25 MG TAB PO PRN (17:42)
[2021-08-14 19:56] LABS: Glucose,Whole Blood 121 mg/dL (70-110)
[2021-08-14] MEDS: SODIUM CHLORIDE 0.9% 1,000 ML IV SCH ×2 (20:23→23:36)
[2021-08-14] MEDS: MONTELUKAST 10 MG TAB PO SCH (20:54)
[2021-08-14] MEDS: ATORVASTATIN 20 MG TAB PO SCH (20:54)
[2021-08-14] MEDS: MELATONIN 5 MG TABLET PO SCH (20:54)
[2021-08-15 06:42] LABS: Glucose,Whole Blood 94 mg/dL (70-110)
[2021-08-15] MEDS: INSULIN ASPART (NovoLOG) 100 UNIT/ML VIAL SQ SCH ×4 (06:57→21:47)
[2021-08-15] MEDS: PANTOPRAZOLE 40 MG TABLET PO SCH (06:57)
[2021-08-15] MEDS: methylPREDNISolone SOD SUCCI 40 MG/ML 1 ML VIAL IV SCH ×2 (08:20→20:18)
[2021-08-15] MEDS: METOPROLOL SUCCINATE (ER) 25 MG TAB.ER.24H PO SCH ×2 (08:22→20:19)
[2021-08-15] MEDS: MEGESTROL 400 MG/10 ML CUP PO SCH (08:22)
[2021-08-15] MEDS: POTASSIUM CHLORIDE ER 20 MEQ TAB.ER PO SCH (08:22)
[2021-08-15] MEDS: APIXABAN 5 MG TAB PO SCH ×2 (08:22→20:18)
[2021-08-15 08:31] LABS: Calcium 8.1 mg/dL (8.4-10.2); Potassium 3.9 mmol/L (3.5-5.1)
[2021-08-15] MEDS: ALBUTEROL NEBULIZED 2.5 MG/3 ML INHALATION PRN ×4 (08:38→19:15)
[2021-08-15] MEDS: SYMBICORT 160-4.5 MCG INHALER INHALATION SCH ×2 (08:38→19:16)
--- NOTE | 2021-08-15 11:40 | P.PN ---
Subjective Progress Note Date: 08/14/21 Principal diagnosis: Failure to thrive Urinary tract infection Electrolyte imbalance with hypokalemia and hyponatremia Elevated troponin likely related to demand ischemia Developing progressive weakness Mild hydrocephalus Low back pain due to herniated thoracic vertebrae disc and DJD of spine Hypertension hypertensive cardiovascular disease 08/14/2021, patient seen eval reexamined during the rounds labs reviewed medications reviewed as still have intermittent back pain, respirator status stable denies any chest pain or shortness of breath off of room air now. She re destini on bronchodilator and direct oral anticoagulant along with Symbicort tolerating well remains on broad-spectrum IV antibiotics, culture positive for E. coli sensitive to Rocephin 08/13/2021, patient seen and evaluated examined during the round labs reviewed medications reviewed, mild dyspnea on exertion is present denies any chest pain, room air oxygen saturation is 95% to 99%, patient remains afebrile and hemodynamically stable, urine cultures are growing gram-negative rods, patient remains on pain medicines and the anxiety medicine has been on direct oral anticoagulant along with Rocephin already doing well has been afebrile WBC count is down 75-year-old female with prior medical history of the hypertension hypertensive cardiovascular disease has been hospitalized however discharged home brought back due to progressive weakness and inability to eat and swallow also had some component of slurred speech patient has significant history of asthma and asthmatic bronchitis with chronic low back pain, patient was having failure to thrive at home, urine cultures have been sent and results are pending, currently patient is on bronchodilator along with direct oral anticoagulant broad-spectrum antibiotics IV steroids along with her home medicine she is been gently rehydrated with normal saline as well, her white cell count arrival was 15,300 came down to 9000 and hemoglobin and hematocrit remained stable so as the platelet count, PT/INR and quinine so within normal limit potassium was low of only 3 improved after potassium replacement sodium was 134 improved to 139, BUN/creatinine 18/1.15 improved to 17/0.93. Troponin was elevated 0.048 up from 0.042, admitted chest x-ray no active process identified computed tomography scan of the brain mild hydrocephalus with chronic changes Objective - Vital Signs Vital signs: Vital Signs Temp 98.2 F 08/14/21 11:35 Pulse 84 08/14/21 16:50 Resp 18 08/14/21 16:50 BP 131/90 08/14/21 16:50 Pulse Ox 98 08/14/21 16:50 FiO2 Intake & Output 08/13/21 08/14/21 08/14/21 18:59 06:59 18:59 Intake Total 10 240 Output Total 100 Balance 10 140 Weight 65.771 kg Intake: IV 10 0.9 10 Oral 240 Output: Urine 100 Other: Voiding Method Bedside Commode Bedside Commode Bedside Commode External Catheter # Voids 1 1 # Bowel Movements 1 - Exam - Constitutional General appearance: average body habitus, mild distress - EENT Eyes: PERRLA Ears: bilateral: normal - Neck Neck: normal ROM Carotids: bilateral: upstroke normal Thyroid: bilateral: normal size - Respiratory Respiratory: bilateral: CTA - Cardiovascular Rhythm: regular Heart sounds: normal: S1, S2 - Neurologic Neurologic: CNII-XII intact - Musculoskeletal Musculoskeletal: generalized weakness, strength equal bilaterally - Psychiatric Psychiatric: appropriate affect, intact judgment & insight - Labs CBC & Chem 7: 08/12/21 08:00 08/15/21 07:50 Labs: Abnormal Lab Results - Last 24 Hours (Table) 08/13/21 08/14/21 08/14/21 Range/Units 20:31 06:28 11:54 POC Glucose (mg/dL) 157 H 117 H 168 H (70-110) mg/dL 08/14/21 Range/Units 16:43 POC Glucose (mg/dL) 199 H (70-110) mg/dL Microbiology - Last 24 Hours (Table) 08/11/21 16:34 Urine Culture - Final Urine,Voided Escherichia coli Assessment and Plan Assessment: Failure to thrive Urinary tract infection due to gram-negative vini, E. coli sensitive to Rocephin Electrolyte imbalance with hypokalemia and hyponatremia Elevated troponin likely related to demand ischemia Developing progressive weakness Mild hydrocephalus Low back pain due to herniated thoracic vertebrae disc and DJD of spine Hypertension hypertensive cardiovascular disease Plan: Monitor patient off of oxygen Agree with broad-spectrum antibiotics for urinary tract infection with IV Rocephin Continue replace electrolytes including potassium PT OT evaluation Elevated troponin likely related to demand ischemia Continue gentle hydration Deep breathing sense incentive spirometry Continue home medications Further plan of care as per clinical response of the patient Start tapering down the steroids and next 24 hours Time with Patient: Greater than 30
--- NOTE | 2021-08-15 11:41 | P.PN ---
Subjective Progress Note Date: 08/15/21 Principal diagnosis: Failure to thrive Urinary tract infection Electrolyte imbalance with hypokalemia and hyponatremia Elevated troponin likely related to demand ischemia Developing progressive weakness Mild hydrocephalus Low back pain due to herniated thoracic vertebrae disc and DJD of spine Hypertension hypertensive cardiovascular disease 08/15/2021, patient had relatively less pain in the back, breathing is stable, denies any chest pain, patient has been tolerating IV Rocephin well 08/14/2021, patient seen eval reexamined during the rounds labs reviewed medications reviewed as still have intermittent back pain, respirator status stable denies any chest pain or shortness of breath off of room air now. She remains on bronchodilator and direct oral anticoagulant along with Symbicort tolerating well remains on broad-spectrum IV antibiotics, culture positive for E. coli sensitive to Rocephin 08/13/2021, patient seen and evaluated examined during the round labs reviewed medications reviewed, mild dyspnea on exertion is present denies any chest pain, room air oxygen saturation is 95% to 99%, patient remains afebrile and hemodynamically stable, urine cultures are growing gram-negative rods, patient remains on pain medicines and the anxiety medicine has been on direct oral anticoagulant along with Rocephin already doing well has been afebrile WBC count is down 75-year-old female with prior medical history of the hypertension hypertensive cardiovascular disease has been hospitalized however discharged home brought back due to progressive weakness and inability to eat and swallow also had some component of slurred speech patient has significant history of asthma and asthmatic bronchitis with chronic low back pain, patient was having failure to thrive at home, urine cultures have been sent and results are pending, currently patient is on bronchodilator along with direct oral anticoagulant broad-spectrum antibiotics IV steroids along with her home medicine she is been gently rehydrated with normal saline as well, her white cell count arrival was 15,300 came down to 9000 and hemoglobin and hematocrit remained stable so as the platelet count, PT/INR and quinine so within normal limit potassium was low of only 3 improved after potassium replacement sodium was 134 improved to 139, BUN/creatinine 18/1.15 improved to 17/0.93. Troponin was elevated 0.048 up from 0.042, admitted chest x-ray no active process identified computed tomography sca n of the brain mild hydrocephalus with chronic changes Objective - Vital Signs Vital signs: Vital Signs Temp 98.4 F 08/15/21 08:15 Pulse 68 08/15/21 08:50 Resp 17 08/15/21 08:15 BP 129/87 08/15/21 08:15 Pulse Ox 99 08/15/21 08:15 FiO2 Intake & Output 08/14/21 08/15/21 08/15/21 18:59 06:59 18:59 Intake Total 1010 240 Output Total 100 0 125 Balance 910 0 115 Intake: Intake, IV Titration 50 Amount cefTRIAXone 1 gm In 50 Sodium Chloride 0.9% 50 ml @ 100 mls/hr IVPB Q24HR [facility] Rx#:[id number] Oral 960 240 Output: Urine 100 0 125 Other: Voiding Method Bedside Commode Bedside Commode # Voids 1 0 1 - Exam - Constitutional General appearance: average body habitus, mild distress - EENT Eyes: PERRLA Ears: bilateral: normal - Neck Neck: normal ROM Carotids: bilateral: upstroke normal Thyroid: bilateral: normal size - Respiratory Respiratory: bilateral: CTA - Cardiovascular Rhythm: regular Heart sounds: normal: S1, S2 - Neurologic Neurologic: CNII-XII intact - Musculoskeletal Musculoskeletal: generalized weakness, strength equal bilaterally - Psychiatric Psychiatric: appropriate affect, intact judgment & insight - Labs CBC & Chem 7: 08/12/21 08:00 08/15/21 07:50 Labs: Abnormal Lab Results - Last 24 Hours (Table) 08/14/21 08/14/21 08/14/21 Range/Units 11:54 16:43 19:47 Chloride (98-107) mmol/L BUN (7-17) mg/dL Glucose (74-99) mg/dL POC Glucose (mg/dL) 168 H 199 H 121 H (70-110) mg/dL Calcium (8.4-10.2) mg/dL 08/15/21 Range/Units 07:50 Chloride 108 H (98-107) mmol/L BUN 19 H (7-17) mg/dL Glucose 130 H (74-99) mg/dL POC Glucose (mg/dL) (70-110) mg/dL Calcium 8.1 L (8.4-10.2) mg/dL Assessment and Plan Assessment: Failure to thrive Urinary tract infection due to gram-negative vini, E. coli sensitive to Rocephin Electrolyte imbalance with hypokalemia and hyponatremia Elevated troponin likely related to demand ischemia Developing progressive weakness Mild hydrocephalus Low back pain due to herniated thoracic vertebrae disc and DJD of spine Hypertension hypertensive cardiovascular disease Plan: Monitor patient off of oxygen Agree with broad-spectrum antibiotics for urinary tract infection with IV Rocephin Continue replace electrolytes including potassium PT OT evaluation Elevated troponin likely related to demand ischemia Continue gentle hydration Deep breathing sense incentive spirometry Continue home medications Further plan of care as per clinical response of the patient Start tapering down the steroids Time with Patient: Greater than 30
[2021-08-15 11:58] LABS: Glucose,Whole Blood 146 mg/dL (70-110)
[2021-08-15 16:59] LABS: Glucose,Whole Blood 207 mg/dL (70-110)
[2021-08-15] MEDS: SODIUM CHLORIDE 0.9% 1,000 ML IV SCH (17:31)
--- NOTE | 2021-08-15 17:37 | P.PN ---
Subjective Progress Note Date: 08/15/21 Principal diagnosis: Acute exacerbation COPD UTI/sepsis Altered mental status/metabolic encephalopathy 75-year-old female with prior medical history of the hypertension hypertensive cardiovascular disease has been hospitalized however discharged home brought back due to progressive weakness and inability to eat and swallow also had some component of slurred speech patient has significant history of asthma and asthmatic bronchitis with chronic low back pain, patient was having failure to thrive at home, urine cultures have been sent and results are pending, currently patient is on bronchodilator along with direct oral anticoagulant broad-spectrum antibiotics IV steroids along with her home medicine she is been gently rehydrated with normal saline as well, her white cell count arrival was 15,300 came down to 9000 and hemoglobin and hematocrit remained stable so as the platelet count, PT/INR and quinine so within normal limit potassium was low of only 3 improved after potassium replacement sodium was 134 improved to 139, BUN/creatinine 18/1.15 improved to 17/0.93. Troponin was elevated 0.048 up from 0.042, admitted chest x-ray no active process identified computed tomography scan of the brain mild hydrocephalus with chronic changes Objective - Vital Signs Vital signs: Vital Signs Temp 98.4 F 08/15/21 08:15 Pulse 68 08/15/21 08:50 Resp 17 08/15/21 08:15 BP 129/87 08/15/21 08:15 Pulse Ox 99 08/15/21 08:15 FiO2 Intake & Output 08/14/21 08/15/21 08/15/21 18:59 06:59 18:59 Intake Total 1010 240 Output Total 100 0 125 Balance 910 0 115 Intake: Intake, IV Titration 50 Amount cefTRIAXone 1 gm In 50 Sodium Chloride 0.9% 50 ml @ 100 mls/hr IVPB Q24HR [facility] Rx#:[id number] Oral 960 240 Output: Urine 100 0 125 Other: Voiding Method Bedside Commode Bedside Commode # Voids 1 0 1 - Exam PHYSICAL EXAMINATION: GENERAL: The patient is alert and oriented x3, not in any acute distress. Well developed, well nourished. HEENT: Pupils are round and equally reacting to light. EOMI. No scleral icterus. No conjunctival pallor. Normocephalic, atraumatic. No pharyngeal erythema. No thyromegaly. CARDIOVASCULAR: S1 and S2 present. No murmurs, rubs, or gallops. PULMONARY: Chest is clear to auscultation, no wheezing or crackles. ABDOMEN: Soft, nontender, nondistended, normoactive bowel sounds. No palpable organomegaly. MUSCULOSKELETAL: No joint swelling or deformity. EXTREMITIES: No cyanosis, clubbing, or pedal edema. NEUROLOGICAL: Gross neurological examination did not reveal any focal deficits. SKIN: No rashes. - Labs CBC & Chem 7: 08/12/21 08:00 08/15/21 07:50 Labs: Abnormal Lab Results - Last 24 Hours (Table) 08/14/21 08/14/21 08/14/21 Range/Units 11:54 16:43 19:47 Chloride (98-107) mmol/L BUN (7-17) mg/dL Glucose (74-99) mg/dL POC Glucose (mg/dL) 168 H 199 H 121 H (70-110) mg/dL Calcium (8.4-10.2) mg/dL 08/15/21 Range/Units 07:50 Chloride 108 H (98-107) mmol/L BUN 19 H (7-17) mg/dL Glucose 130 H (74-99) mg/dL POC Glucose (mg/dL) (70-110) mg/dL Calcium 8.1 L (8.4-10.2) mg/dL Assessment and Plan Assessment: 1. Failure to thrive 2. Urinary tract infection 3. Electrolyte imbalance with hypokalemia and hyponatremia 4. Elevated troponin likely related to demand ischemia 5. Developing progressive weakness 6. Mild hydrocephalus 7. Low back pain due to herniated thoracic vertebrae disc and DJD of spine 8. Hypertension hypertensive cardiovascular disease Plan: We will plan to continue to Taper oxygen check pulse ox at room air if more than 92% can DC oxygen Continue with broad-spectrum antibiotics for urinary tract infection Continue replace electrolytes including potassium; monitor electrolytes closely PT OT evaluation Elevated troponin likely related to demand ischemia; no further workup recommended We will plan to Continue gentle hydration
[2021-08-15] MEDS: NYSTATIN 100,000 UNIT/ML SUSP 500,000 UNIT/5 ML CUP PO SCH ×2 (18:22→21:43)
[2021-08-15] MEDS: MONTELUKAST 10 MG TAB PO SCH (20:18)
[2021-08-15] MEDS: MELATONIN 5 MG TABLET PO SCH (20:18)
[2021-08-15] MEDS: ATORVASTATIN 20 MG TAB PO SCH (20:19)
[2021-08-15 21:53] LABS: Glucose,Whole Blood 227 mg/dL (70-110)
[2021-08-15] MEDS: ALPRAZolam 0.25 MG TAB PO PRN (23:15)
[2021-08-16] MEDS: SODIUM CHLORIDE 0.9% 1,000 ML IV SCH ×2 (02:17→14:22)
[2021-08-16 06:36] LABS: Glucose,Whole Blood 91 mg/dL (70-110)
[2021-08-16] MEDS: INSULIN ASPART (NovoLOG) 100 UNIT/ML VIAL SQ SCH ×4 (06:38→20:38)
[2021-08-16] MEDS: PANTOPRAZOLE 40 MG TABLET PO SCH (06:45)
[2021-08-16] MEDS: ALBUTEROL NEBULIZED 2.5 MG/3 ML INHALATION PRN ×2 (07:22→17:44)
[2021-08-16] MEDS: SYMBICORT 160-4.5 MCG INHALER INHALATION SCH ×2 (07:22→20:19)
[2021-08-16] MEDS: NYSTATIN 100,000 UNIT/ML SUSP 500,000 UNIT/5 ML CUP PO SCH ×4 (10:27→21:46)
[2021-08-16] MEDS: APIXABAN 5 MG TAB PO SCH ×2 (10:28→20:45)
[2021-08-16] MEDS: MEGESTROL 400 MG/10 ML CUP PO SCH (10:28)
[2021-08-16] MEDS: METOPROLOL SUCCINATE (ER) 25 MG TAB.ER.24H PO SCH ×2 (10:28→20:45)
[2021-08-16] MEDS: methylPREDNISolone SOD SUCCI 40 MG/ML 1 ML VIAL IV SCH ×2 (10:28→20:45)
[2021-08-16] MEDS: POTASSIUM CHLORIDE ER 20 MEQ TAB.ER PO SCH (10:29)
--- NOTE | 2021-08-16 11:05 | P.PN ---
Subjective Progress Note Date: 08/16/21 Principal diagnosis: Failure to thrive Urinary tract infection Electrolyte imbalance with hypokalemia and hyponatremia Elevated troponin likely related to demand ischemia Developing progressive weakness Mild hydrocephalus Low back pain due to herniated thoracic vertebrae disc and DJD of spine Hypertension hypertensive cardiovascular disease 08/16/2021, patient seen eval examined during the rounds labs reviewed medications reviewed, respiratory status remains stable patient doing well remains on room air denies any chest pain, saturation is 98% on room air, patient remains afebrile, patient remains on bronchodilator IV Rocephin for gram-negative urinary tract infection 08/15/2021, patient had relatively less pain in the back, breathing is stable, denies any chest pain, patient has been tolerating IV Rocephin well 08/14/2021, patient seen eval reexamined during the rounds labs reviewed medications reviewed as still have intermittent back pain, respirator status stable denies any chest pain or shortness of breath off of room air now. She remains on bronchodilator and direct oral anticoagulant along with Symbicort tolerating well remains on broad-spectrum IV antibiotics, culture positive for E. coli sensitive to Rocephin 08/13/2021, patient seen and evaluated examined during the round labs reviewed medications reviewed, mild dyspnea on exertion is present denies any chest pain, room air oxygen saturation is 95% to 99%, patient remains afebrile and h emodynamically stable, urine cultures are growing gram-negative rods, patient remains on pain medicines and the anxiety medicine has been on direct oral anticoagulant along with Rocephin already doing well has been afebrile WBC count is down 75-year-old female with prior medical history of the hypertension hypertensive cardiovascular disease has been hospitalized however discharged home brought b [facility] due to progressive weakness and inability to eat and swallow also had some component of slurred speech patient has significant history of asthma and asthmatic bronchitis with chronic low back pain, patient was having failure to thrive at home, urine cultures have been sent and results are pending, currently patient is on bronchodilator along with direct oral anticoagulant broad-spectrum antibiotics IV steroids along with her home medicine she is been gently rehydrated with normal saline as well, her white cell count arrival was 15,300 came down to 9000 and hemoglobin and hematocrit remained stable so as the platelet count, PT/INR and quinine so within normal limit potassium was low of only 3 improved after potassium replacement sodium was 134 improved to 139, BUN/creatinine 18/1.15 improved to 17/0.93. Troponin was elevated 0.048 up from 0.042, admitted chest x-ray no active process identified computed tomography scan of the brain mild hydrocephalus with chronic changes Objective - Vital Signs Vital signs: Vital Signs Temp 98.2 F 08/16/21 08:40 Pulse 91 08/16/21 08:40 Resp 18 08/16/21 08:40 BP 147/87 08/16/21 08:40 Pulse Ox 98 08/16/21 08:40 FiO2 Intake & Output 08/15/21 08/16/21 08/16/21 18:59 06:59 18:59 Intake Total 1010 Output Total 125 125 100 Balance 885 -125 -100 Intake: Intake, IV Titration 650 Amount Sodium Chloride 0.9% 1, 600 000 ml @ 75 mls/hr IV . [id number] [facility] Rx#:[id number] cefTRIAXone 1 gm In 50 Sodium Chloride 0.9% 50 ml @ 100 mls/hr IVPB Q24HR [facility] Rx#:[id number] Oral 360 Output: Urine 125 125 100 Other: Voiding Method Bedside Commode # Voids 1 1 # Bowel Movements 1 - Exam - Constitutional General appearance: average body habitus, mild distress - EENT Eyes: PERRLA Ears: bilateral: normal - Neck Neck: normal ROM Carotids: bilateral: upstroke normal Thyroid: bilateral: normal size - Respiratory Respiratory: bilateral: CTA - Cardiovascular Rhythm: regular Heart sounds: normal: S1, S2 - Neurologic Neurologic: CNII-XII intact - Musculoskeletal Musculoskeletal: generalized weakness, strength equal bilaterally - Psychiatric Psychiatric: appropriate affect, intact judgment & insight - Labs CBC & Chem 7: 08/12/21 08:00 08/15/21 07:50 Labs: Abnormal Lab Results - Last 24 Hours (Table) 08/15/21 08/15/21 08/15/21 Range/Units 11:56 16:57 21:44 POC Glucose (mg/dL) 146 H 207 H 227 H (70-110) mg/dL Assessment and Plan Assessment: Failure to thrive Urinary tract infection due to gram-negative vini, E. coli sensitive to Rocephin Electrolyte imbalance with hypokalemia and hyponatremia Elevated troponin likely related to demand ischemia Developing progressive weakness Mild hydrocephalus Low back pain due to herniated thoracic vertebrae disc and DJD of spine Hypertension hypertensive cardiovascular disease Plan: Monitor patient off of oxygen Agree with broad-spectrum antibiotics for urinary tract infection with IV Rocephin Continue replace electrolytes including potassium PT OT evaluation Elevated troponin likely related to demand ischemia Continue gentle hydration Deep breathing sense incentive spirometry Continue home medications Further plan of care as per clinical response of the patient Monitor off of steroids We'll sign off and follow up in office Time with Patient: Greater than 30
[2021-08-16 11:45] LABS: Glucose,Whole Blood 106 mg/dL (70-110)
[2021-08-16] MEDS: ALPRAZolam 0.25 MG TAB PO PRN ×2 (14:23→19:00)
--- NOTE | 2021-08-16 16:06 | P.PN ---
Subjective Progress Note Date: 08/16/21 Principal diagnosis: Acute exacerbation COPD UTI/sepsis Altered mental status/metabolic encephalopathy 75-year-old female with prior medical history of the hypertension hypertensive cardiovascular disease has been hospitalized however discharged home brought back due to progressive weakness and inability to eat and swallow also had some component of slurred speech patient has significant history of asthma and asthmatic bronchitis with chronic low back pain, patient was having failure to thrive at home, urine cultures have been sent and results are pending, currently patient is on bronchodilator along with direct oral anticoagulant broad-spectrum antibiotics IV steroids along with her home medicine she is been gently rehydrated with normal saline as well, her white cell count arrival was 15,300 came down to 9000 and hemoglobin and hematocrit remained stable so as the platelet count, PT/INR and quinine so within normal limit potassium was low of only 3 improved after potassium replacement sodium was 134 improved to 139, BUN/creatinine 18/1.15 improved to 17/0.93. Troponin was elevated 0.048 up from 0.042, admitted chest x-ray no active process identified computed tomography scan of the brain mild hydrocephalus with chronic changes 08/16/2021 Patient is seen and evaluated in room at bedside; denies any chest pain or worsening shortness of breath; continues to saturate above 95% Vital signs reviewed and are stable Patient remains on IV Rocephin for E. coli UTI along with DuoNeb nebulizer treatments for COPD exacerbation Has been evaluated by neurology for mental status change and has been deemed metabolic encephalopathy due to UTI, dehydration and poor oral intake; neurology recommending follow-up with neuro as an outpatient -- Patient is clinically stable and can be switched to oral and antibiotics and discharged home with home health care; however patient's daughter is present at bedside and is concerned about continued poor oral intake by patient; requesting patient to be kept for another 24 hours for her to be able to discuss further plan of care with PCP Dr. Nguyen hold be rounding on patient tomorrow Objective - Vital Signs Vital signs: Vital Signs Temp 98.2 F 08/16/21 04:00 Pulse 68 08/16/21 07:31 Resp 18 08/16/21 04:00 BP 137/92 08/16/21 04:00 Pulse Ox 99 08/16/21 04:00 FiO2 Intake & Output 08/15/21 08/16/21 08/16/21 18:59 06:59 18:59 Intake Total 1010 Output Total 125 125 Balance 885 -125 Intake: Intake, IV Titration 650 Amount Sodium Chloride 0.9% 1, 600 000 ml @ 75 mls/hr IV . [id number] [facility] Rx#:[id number] cefTRIAXone 1 gm In 50 Sodium Chloride 0.9% 50 ml @ 100 mls/hr IVPB Q24HR [facility] Rx#:[id number] Oral 360 Output: Urine 125 125 Other: Voiding Method Bedside Commode # Voids 1 1 # Bowel Movements 1 - Exam PHYSICAL EXAMINATION: GENERAL: The patient is alert and oriented x3, not in any acute distress. Well developed, well nourished. HEENT: Pupils are round and equally reacting to light. EOMI. No scleral icterus. No conjunctival pallor. Normocephalic, atraumatic. No pharyngeal erythema. No thyromegaly. CARDIOVASCULAR: S1 and S2 present. No murmurs, rubs, or gallops. PULMONARY: Chest is clear to auscultation, no wheezing or crackles. ABDOMEN: Soft, nontender, nondistended, normoactive bowel sounds. No palpable organomegaly. MUSCULOSKELETAL: No joint swelling or deformity. EXTREMITIES: No cyanosis, clubbing, or pedal edema. NEUROLOGICAL: Gross neurological examination did not reveal any focal deficits. SKIN: No rashes. - Labs CBC & Chem 7: 08/12/21 08:00 08/15/21 07:50 Labs: Abnormal Lab Results - Last 24 Hours (Table) 08/15/21 08/15/21 08/15/21 Range/Units 11:56 16:57 21:44 POC Glucose (mg/dL) 146 H 207 H 227 H (70-110) mg/dL Assessment and Plan Assessment: 1. Failure to thrive 2. Urinary tract infection 3. Electrolyte imbalance with hypokalemia and hyponatremia 4. Elevated troponin likely related to demand ischemia 5. Developing progressive weakness 6. Mild hydrocephalus 7. Low back pain due to herniated thoracic vertebrae disc and DJD of spine 8. Hypertension hypertensive cardiovascular disease Plan: We will plan to continue to Taper oxygen check pulse ox at room air if more than 92% can DC oxygen Continue with broad-spectrum antibiotics for urinary tract infection Continue replace electrolytes including potassium; monitor electrolytes closely PT OT evaluation Elevated troponin likely related to demand ischemia; no further workup recommended We will plan to Continue gentle hydration
[2021-08-16 16:34] LABS: Glucose,Whole Blood 155 mg/dL (70-110)
[2021-08-16] MEDS ORDERED: FUROSEMIDE 10 MG/ML 4 ML VIAL IV STA (18:25)
[2021-08-16 20:38] LABS: Glucose,Whole Blood 106 mg/dL (70-110)
[2021-08-16] MEDS: ATORVASTATIN 20 MG TAB PO SCH (20:45)
[2021-08-16] MEDS: MONTELUKAST 10 MG TAB PO SCH (20:45)
[2021-08-16] MEDS: MELATONIN 5 MG TABLET PO SCH (20:45)
[2021-08-17 06:14] LABS: Glucose,Whole Blood 105 mg/dL (70-110)
[2021-08-17] MEDS: INSULIN ASPART (NovoLOG) 100 UNIT/ML VIAL SQ SCH ×4 (06:17→20:42)
[2021-08-17] MEDS: PANTOPRAZOLE 40 MG TABLET PO SCH (06:24)
[2021-08-17] MEDS: SYMBICORT 160-4.5 MCG INHALER INHALATION SCH ×2 (07:35→21:36)
[2021-08-17] MEDS: NYSTATIN 100,000 UNIT/ML SUSP 500,000 UNIT/5 ML CUP PO SCH ×4 (09:21→21:47)
[2021-08-17] MEDS: APIXABAN 5 MG TAB PO SCH ×2 (09:21→20:46)
[2021-08-17] MEDS: MEGESTROL 400 MG/10 ML CUP PO SCH (09:21)
[2021-08-17] MEDS: methylPREDNISolone SOD SUCCI 40 MG/ML 1 ML VIAL IV SCH ×2 (09:22→20:46)
[2021-08-17] MEDS: POTASSIUM CHLORIDE ER 20 MEQ TAB.ER PO SCH (09:22)
[2021-08-17] MEDS: METOPROLOL SUCCINATE (ER) 25 MG TAB.ER.24H PO SCH ×2 (09:22→20:46)
[2021-08-17] MEDS: ACETAMINOPHEN TAB 325 MG TAB PO PRN (09:24)
[2021-08-17 11:54] LABS: Glucose,Whole Blood 79 mg/dL (70-110)
[2021-08-17 16:38] LABS: Glucose,Whole Blood 103 mg/dL (70-110)
[2021-08-17 20:15] LABS: Glucose,Whole Blood 117 mg/dL (70-110)
[2021-08-17] MEDS: MONTELUKAST 10 MG TAB PO SCH (20:46)
[2021-08-17] MEDS: MELATONIN 5 MG TABLET PO SCH (20:46)
[2021-08-17] MEDS: ATORVASTATIN 20 MG TAB PO SCH (20:46)
[2021-08-17] MEDS: ALBUTEROL NEBULIZED 2.5 MG/3 ML INHALATION PRN (21:36)
[2021-08-18] MEDS: PANTOPRAZOLE 40 MG TABLET PO SCH (04:47)
[2021-08-18] MEDS: INSULIN ASPART (NovoLOG) 100 UNIT/ML VIAL SQ SCH ×4 (06:18→22:09)
[2021-08-18 06:30] LABS: Glucose,Whole Blood 152 mg/dL (70-110)
--- NOTE | 2021-08-18 07:01 | PN ---
PROGRESS NOTE The patient is still weak, fatigue, not eating, poor nutrition, short of breath with any exertion. PT/OT will have to be involved. Started back on IV steroids, updrafts, rehydrate her, treat for hypokalemia. Cardiovascular S1-S2. Lungs scattered rhonchi. Hematology negative Homans. Psych: Fair mood and affect. ASSESSMENT: 1. Hypokalemia. 2. Dehydration. 3. Elevated troponin. 4. Chronic obstructive pulmonary disease. 5. Congestive heart failure. 6. Hypokalemia. Rehydrate. IV steroids. PT/OT. Follow up in next 24 to 48 hours for dietary consult. Rehydrate. Megace for poor nutrition. Possibly need rehab placement. MMODL / IJN: [id number] /
[2021-08-18] MEDS: SYMBICORT 160-4.5 MCG INHALER INHALATION SCH ×2 (08:02→19:26)
[2021-08-18] MEDS: NYSTATIN 100,000 UNIT/ML SUSP 500,000 UNIT/5 ML CUP PO SCH ×4 (09:25→21:05)
[2021-08-18] MEDS: APIXABAN 5 MG TAB PO SCH ×2 (09:26→21:06)
[2021-08-18] MEDS: methylPREDNISolone SOD SUCCI 40 MG/ML 1 ML VIAL IV SCH ×2 (09:26→21:05)
[2021-08-18] MEDS: MEGESTROL 400 MG/10 ML CUP PO SCH (09:26)
[2021-08-18] MEDS: METOPROLOL SUCCINATE (ER) 25 MG TAB.ER.24H PO SCH ×2 (09:26→21:05)
[2021-08-18] MEDS: POTASSIUM CHLORIDE ER 20 MEQ TAB.ER PO SCH (09:26)
[2021-08-18 11:48] LABS: Glucose,Whole Blood 165 mg/dL (70-110)
[2021-08-18] MEDS: ALPRAZolam 0.25 MG TAB PO PRN (16:15)
[2021-08-18 16:45] LABS: Glucose,Whole Blood 167 mg/dL (70-110)
--- NOTE | 2021-08-18 18:47 | PN ---
PROGRESS NOTE Patient has failure to thrive, urinary tract infection, electrolyte imbalance, hypokalemia, hyponatremia, elevated troponin secondary to demand ischemia, progressive weakness, mild hydrocephalus, low back pain due to herniated thoracic vertebral disc and degenerative disk disease of spine, hypertensive cardiovascular disease. She remains doing well, in the high 90s on room air. She is on IV steroids. She is getting Rocephin. We have switched to Macrobid for UTI. Cardiovascular S1-S2. Lungs clear. GI soft. Temperature 98.2, pulse 91, respiratory rate 16 to 18, blood pressure 147/87, O2 98. Cardiovascular S1-S2. Lungs scattered rhonchi and wheeze. Hematology negative Homans. She answers appropriately. Intact judgment but her balance is poor. Respiratory is clear. Heart S1, S2. Neurologic: Cranial nerves are intact. White count 9.7, hemoglobin is 11.9, BUN is 19, creatinine 0.88. ASSESSMENT: 1. Failure to thrive. 2. Urinary tract infection, sensitive to Rocephin due to Gram-negative rods. 3. Escherichia coli. 4. Hypokalemia. 5. Hyp natremia secondary to chronic diarrhea. 6. Elevated troponin. 7. Demand ischemia. 8. Progressive weakness. 9. Mild hydrocephalus. 10.Low back pain due to herniated vertebral disc. 11.Hypertensive cardiovascular disease. Replace electrolytes. Continue with IV steroids, PT/OT, gentle rehydration. Possibly try Diamox to help with possible some gait imbalance that may be due to mild hydrocephalus; unclear at this time. Wait for Dr. Suleman Chandler's recommendation. MMODL / IJN: [id number] /
[2021-08-18 20:50] LABS: Glucose,Whole Blood 145 mg/dL (70-110)
[2021-08-18] MEDS: ATORVASTATIN 20 MG TAB PO SCH (21:04)
[2021-08-18] MEDS: NITROFURANTOIN MONOHYD/M-CRYST 100 MG CAP PO SCH (21:04)
[2021-08-18] MEDS: MELATONIN 5 MG TABLET PO SCH (21:04)
[2021-08-18] MEDS: MONTELUKAST 10 MG TAB PO SCH (21:06)
[2021-08-18] MEDS: acetaZOLAMIDE 250 MG TAB PO SCH (21:38)
[2021-08-18] MEDS: hydrALAZINE HCL 20 MG/ML 1 ML VIAL IVP PRN (23:39)
[2021-08-19 06:24] LABS: Glucose,Whole Blood 109 mg/dL (70-110)
[2021-08-19] MEDS: INSULIN ASPART (NovoLOG) 100 UNIT/ML VIAL SQ SCH ×4 (06:29→21:06)
[2021-08-19] MEDS: PANTOPRAZOLE 40 MG TABLET PO SCH (06:44)
[2021-08-19] MEDS: SYMBICORT 160-4.5 MCG INHALER INHALATION SCH ×2 (08:06→21:20)
[2021-08-19] MEDS: MEGESTROL 400 MG/10 ML CUP PO SCH (09:04)
[2021-08-19] MEDS: NITROFURANTOIN MONOHYD/M-CRYST 100 MG CAP PO SCH ×2 (09:04→21:31)
[2021-08-19] MEDS: METOPROLOL SUCCINATE (ER) 25 MG TAB.ER.24H PO SCH ×2 (09:05→21:13)
[2021-08-19] MEDS: NYSTATIN 100,000 UNIT/ML SUSP 500,000 UNIT/5 ML CUP PO SCH ×4 (09:05→21:32)
[2021-08-19] MEDS: acetaZOLAMIDE 250 MG TAB PO SCH (09:05)
[2021-08-19] MEDS: APIXABAN 5 MG TAB PO SCH ×2 (09:05→21:13)
[2021-08-19] MEDS: POTASSIUM CHLORIDE ER 20 MEQ TAB.ER PO SCH (09:07)
[2021-08-19] MEDS: methylPREDNISolone SOD SUCCI 40 MG/ML 1 ML VIAL IV SCH ×2 (09:11→21:14)
[2021-08-19 11:46] LABS: Glucose,Whole Blood 92 mg/dL (70-110)
[2021-08-19] MEDS: hydrALAZINE HCL 20 MG/ML 1 ML VIAL IVP PRN (15:58)
[2021-08-19] MEDS: ALBUTEROL NEBULIZED 2.5 MG/3 ML INHALATION PRN ×2 (16:26→21:20)
[2021-08-19 16:30] LABS: Glucose,Whole Blood 92 mg/dL (70-110)
[2021-08-19] MEDS ORDERED: FUROSEMIDE 10 MG/ML 2 ML VIAL IV ONE ×2 (17:09→19:42)
--- NOTE | 2021-08-19 20:21 | PN ---
PROGRESS NOTE This is a 75-year-old white female with gait dysfunction, poor mobility, dizziness, unable to , more dementia, worsening dementia, unable to the eat or drink more than a few bites. Discussed with the family her normal-pressure hydrocephalus. They want to do a spinal tap while she is in the hospital at least to see if that will improve her mentation and ambulation. Her UTI with E coli has been appropriately treated. We are going to repeat urine cultures. We are going to try a spinal tap, start her on Diamox for hydrocephalus. Continue with Solu-Medrol for COPD. She says she is having difficulty breathing. Will rule out UTI. Will assess Accu-Cheks. Prognosis is guarded. Cardiovascular S1, S2. Lungs with scattered rhonchi and wheeze. Hematology negative Homans. Generally she looks fairly weak and fatigued. Plan is to continue current treatments, do a spinal tap for normal-pressure hydrocephalus, therapeutic tap, to see how she does. Measure opening and closing pressures. Start her on Diamox. Recheck urine culture. PT/OT. Dietitian. Prognosis guarded. MMODL / IJN: [id number] /
[2021-08-19 20:28] LABS: Glucose,Whole Blood 135 mg/dL (70-110)
[2021-08-19] MEDS: MONTELUKAST 10 MG TAB PO SCH (21:13)
[2021-08-19] MEDS: ATORVASTATIN 20 MG TAB PO SCH (21:13)
[2021-08-19] MEDS: MELATONIN 5 MG TABLET PO SCH (21:13)
[2021-08-19 23:15] LABS: % Iron Saturation 51.65 (12.00-45.00)
[2021-08-20] MEDS ORDERED: DILTIAZEM DRIP BOLUS FROM BAG 1 MG SOLN IV ONE (00:03)
[2021-08-20] MEDS ORDERED: DILTIAZEM 125 MG in SODIUM CHLORIDE 0.9% 100 ML IV SCH (00:15)
[2021-08-20 05:58] LABS: Glucose,Whole Blood 97 mg/dL (70-110)
[2021-08-20] MEDS: INSULIN ASPART (NovoLOG) 100 UNIT/ML VIAL SQ SCH ×4 (06:57→21:07)
[2021-08-20] MEDS: ALBUTEROL NEBULIZED 2.5 MG/3 ML INHALATION PRN ×2 (08:49→15:12)
[2021-08-20] MEDS: SYMBICORT 160-4.5 MCG INHALER INHALATION SCH ×2 (08:49→20:22)
[2021-08-20 09:18] LABS: Basophils # (A) 0.1 k/uL (0-0.2); Basophils % (A) 0 %; Eosinophils # (A) 0.1 k/uL (0-0.7); Eosinophils % (A) 0 %; HCT 38.4 % (34.0-46.0); HGB 12.1 gm/dL (11.4-16.0); Hypochromasia Moderate; Lymphocytes # (A) 0.7 k/uL (1.0-4.8); Lymphocytes % (A) 4 %; MCH 32.8 pg (25.0-35.0); MCHC 31.4 g/dL (31.0-37.0); MCV 104.6 fL (80.0-100.0); Macrocytosis Moderate; Mean Platelet Volume 8.7; Monocytes # (A) 0.9 k/uL (0-1.0); Monocytes % (A) 5 %; Neutrophils # (A) 16.9 k/uL (1.3-7.7); Neutrophils % (A) 90 %; Platelet Count 237 k/uL (150-450); RBC 3.67 m/uL (3.80-5.40); RDW 15.3 % (11.5-15.5); WBC 18.8 k/uL (3.8-10.6)
[2021-08-20 09:35] LABS: Albumin 2.9 g/dL (3.5-5.0); Calcium 8.9 mg/dL (8.4-10.2); Potassium 4.1 mmol/L (3.5-5.1); Total Bilirubin 1.5 mg/dL (0.2-1.3); Total Protein 5.1 g/dL (6.3-8.2)
[2021-08-20] MEDS: PANTOPRAZOLE 40 MG TABLET PO SCH (10:07)
[2021-08-20] MEDS: acetaZOLAMIDE 250 MG TAB PO SCH (10:07)
[2021-08-20] MEDS: MEGESTROL 400 MG/10 ML CUP PO SCH (10:08)
[2021-08-20] MEDS: NITROFURANTOIN MONOHYD/M-CRYST 100 MG CAP PO SCH ×2 (10:08→22:14)
[2021-08-20] MEDS: methylPREDNISolone SOD SUCCI 40 MG/ML 1 ML VIAL IV SCH ×2 (10:08→20:44)
[2021-08-20] MEDS: METOPROLOL SUCCINATE (ER) 25 MG TAB.ER.24H PO SCH (10:08)
[2021-08-20] MEDS: amLODIPine 5 MG TAB PO SCH (10:08)
[2021-08-20] MEDS: APIXABAN 5 MG TAB PO SCH ×2 (10:08→22:14)
[2021-08-20] MEDS: NYSTATIN 100,000 UNIT/ML SUSP 500,000 UNIT/5 ML CUP PO SCH ×4 (10:09→22:15)
[2021-08-20] MEDS: POTASSIUM CHLORIDE ER 20 MEQ TAB.ER PO SCH (10:09)
--- NOTE | 2021-08-20 10:31 | P.CNPUL ---
History of Present Illness Consult date: 08/20/21 Reason for consult: dyspnea, asthma Chief complaint: Shortness of breath and wheezing History of present illness: 75-year-old female seen eval reexamined in the stepdown unit for problems associated with shortness and wheezing for the last 1-2 days has been progressive seems to be associated with A. fib with RVR currently patient is on Cardizem drip and cardiovascular disease is following, patient admitted into the hospital with progressive weakness tiredness and fatigue and diffuse aches and pains, on specific questioning no chest pain or cough is present no fever or chills, labs done included white cell count is 18,000 with hemoglobin hematocrit 12/38, chemistry BUN/creatinine 21/0.99, LFTs total bilirubin is 1.5 AST/ALT 31/47 alk phos 66 BNP is over 7000: Weight is negative chest x-ray last fall was no active disease identified, currently patient is on albuterol neb treatment as needed and requests 5 mg 2 times a day for anticoagulation Symbicort 160/4.5, Solu-Medrol 40 mg every 12 Review of Systems All systems: negative Past Medical History Past Medical History: Atrial Fibrillation, Asthma, COPD, Dementia, Hyperlipidem ia, Hypertension, Memory Impairment, Renal Disease, Seizure Disorder, Vascular Disorder Additional Past Medical History / Comment(s): Aortic aneurysm, daughter states past fluid around lung that was drained off, CKD III, nephrolithiasis, UTI/cystitis, one seizure in 2019, anemia, chronic back pain, bilateral ankle edema, FALLS History of Any Multi-Drug Resistant Organisms: None Reported Past Surgical History: Back Surgery, Hysterectomy, Orthopedic Surgery, Tonsillectomy, Tubal Ligation Additional Past Surgical History / Comment(s): D&C, EGD, colonoscopy, L hip hemiarthroplasty d/t fracure, R shoulder surgery d/t fracture-has hardware Past Anesthesia/Blood Transfusion Reactions: Motion Sickness Additional Past Anesthesia/Blood Transfusion Reaction / Comment(s): Pt has clausterphobia. Past Psychological History: Anxiety Additional Psychological History / Comment(s): Pt resides with her daughter, Analisa who is her legal guardian/caregiver. She uses a walker to ambulate. Her daughter is her caregiver, she assists pt with bathing/dressing and manages her medications and also drives her to [employer]. Smoking Status: Never smoker Past Alcohol Use History: None Reported Past Drug Use History: None Reported - Past Family History Mother Family Medical History: Hypertension Father Family Medical History: Coronary Artery Disease (CAD), Myocardial Infarction ([place]) Additional Family Medical History / Comment(s): Father of a [place] in his 70s. Medications and Allergies Home Medications Medication Instructions Recorded Confirmed Type Montelukast Sodium [Singulair] 10 mg PO HS 10/01/19 08/11/21 History Albuterol Sulfate [Ventolin HFA] 2 puff INHALATION RT-Q4H PRN 05/05/20 08/11/21 History Metoprolol Succinate (ER) [Toprol 25 mg PO BID 02/10/21 08/11/21 History XL] Nitroglycerin Sl Tabs [Nitrostat] 0.4 mg SL Q5M PRN 05/22/21 08/11/21 History predniSONE 10 mg PO DAILY 05/22/21 08/11/21 History Apixaban [Eliquis] 5 mg PO BID 06/10/21 08/11/21 History Atorvastatin [Lipitor] 20 mg PO HS 06/10/21 08/11/21 History Melatonin 10 mg PO HS 06/10/21 08/11/21 History Pantoprazole [Protonix] 40 mg PO DAILY 06/10/21 08/11/21 History Potassium Chloride ER [K-Dur 20] 20 meq PO DAILY 06/10/21 08/11/21 History Budesonide-Formot 160-4.5 Mcg 2 puff INHALATION RT-BID gm 06/11/21 08/11/21 Rx [Symbicort 160-4.5 Mcg Inhaler] Megestrol [Megace] 40 mg PO BID 07/22/21 08/11/21 History Ondansetron [Zofran] 4 mg PO Q8HR PRN 07/22/21 08/11/21 History Amiodarone [Cordarone] See Taper PO DIRECTED 08/11/21 08/11/21 History HYDROcodone/APAP 5-325MG [[place] 1 tab PO TID PRN 08/11/21 08/11/21 History 5-325] Allergies Allergy/AdvReac Type Severity Reaction Status Date / Time levofloxacin Allergy Anaphylaxis Verified 08/11/21 20:09 lisinopril Allergy Unknown Verified 08/11/21 20:09 memantine [From Namenda] Allergy Rash/Hives Verified 08/11/21 20:09 Physical Exam Vitals: Vital Signs Temp Pulse Pulse Resp BP Pulse Ox 08/20/21 09:00 84 08/20/21 08:49 84 08/20/21 04:00 97.8 F 88 16 107/73 98 08/20/21 02:00 114 H 08/20/21 00:25 130 H 16 109/77 100 08/20/21 00:00 150 H 16 105/75 98 08/19/21 23:18 99.0 F 113 H 16 121/85 98 08/19/21 21:40 84 08/19/21 21:20 80 08/19/21 20:30 98.9 F 86 18 139/98 100 08/19/21 20:00 130 H 16 08/19/21 16:40 82 18 08/19/21 16:26 80 18 08/19/21 15:44 98.0 F 80 15 174/108 98 08/19/21 11:47 98.1 F 66 17 159/112 100 Intake and Output 08/19/21 08/20/21 08/20/21 22:59 06:59 14:59 Intake Total 148 Output Total 650 400 Balance -502 -400 Intake: Oral 148 Output: Urine 650 400 Other: Voiding Method External Catheter - Constitutional General appearance: average body habitus, cooperative, disheveled - EENT Eyes: EOMI - Neck Neck: normal ROM Carotids: bilateral: upstroke normal Thyroid: bilateral: normal size - Respiratory Respiratory: bilateral: wheezing (Fine expiratory) - Cardiovascular Rhythm: irregularly irregular Heart sounds: normal: S1, S2 - Gastrointestinal General gastrointestinal: normal bowel sounds - Neurologic Neurologic: CNII-XII intact - Musculoskeletal Musculoskeletal: gait normal, generalized weakness, strength equal bilaterally - Psychiatric Psychiatric: appropriate affect, intact judgment & insight Results - Laboratory Findings CBC and BMP: 08/20/21 08:45 08/20/21 08:45 PT/INR, D-dimer PT 12.5 sec (9.0-12.0) H 08/11/21 16:34 INR 1.2 (<1.2) H 08/11/21 16:34 D-Dimer 0.27 mg/L FEU (<0.60) 08/19/21 17:34 Abnormal lab findings: Abnormal Labs 08/11/21 08/11/21 08/11/21 16:34 16:34 16:34 WBC 15.3 H RBC 3.78 L MCV 100.8 H Neutrophils # 13.1 H Lymphocytes # PT 12.5 H INR 1.2 H Sodium Potassium Chloride Carbon Dioxide BUN Creatinine Glucose POC Glucose (mg/dL) Calcium % Saturation Transferrin Total Bilirubin ALT Troponin I Total Protein Albumin Urine Protein Trace H Ur Leukocyte Esterase Moderate H Urine WBC 28 H Urine Bacteria Few H Hyaline Casts 16 H Urine Mucus Rare H 08/11/21 08/11/21 08/11/21 16:34 16:34 20:54 WBC RBC MCV Neutrophils # Lymphocytes # PT INR Sodium 134 L Potassium 3.0 L Chloride Carbon Dioxide BUN 18 H Creatinine 1.15 H Glucose 117 H POC Glucose (mg/dL) Calcium 8.2 L % Saturation Transferrin Total Bilirubin 1.6 H ALT Troponin I 0.055 H* 0.042 H* Total Protein 5.5 L Albumin 3.0 L Urine Protein Ur Leukocyte Esterase Urine WBC Urine Bacteria Hyaline Casts Urine Mucus 08/12/21 08/12/21 08/12/21 00:10 06:21 08:00 WBC RBC 3.58 L MCV 103.0 H Neutrophils # 8.8 H Lymphocytes # 0.8 L PT INR Sodium Potassium Chloride Carbon Dioxide BUN Creatinine Glucose POC Glucose (mg/dL) 119 H Calcium % Saturation Transferrin Total Bilirubin ALT Troponin I 0.048 H* Total Protein Albumin Urine Protein Ur Leukocyte Esterase Urine WBC Urine Bacteria Hyaline Casts Urine Mucus 08/12/21 08/12/21 08/12/21 08:00 16:46 20:24 WBC RBC MCV Neutrophils # Lymphocytes # PT INR Sodium Potassium Chloride Carbon Dioxide 21 L BUN Creatinine Glucose 120 H POC Glucose (mg/dL) 159 H 155 H Calcium 7.7 L % Saturation Transferrin Total Bilirubin ALT Troponin I Total Protein 5.4 L Albumin 2.9 L Urine Protein Ur Leukocyte Esterase Urine WBC Urine Bacteria Hyaline Casts Urine Mucus 08/13/21 08/13/21 08/13/21 06:30 12:05 16:37 WBC RBC MCV Neutrophils # Lymphocytes # PT INR Sodium Potassium Chloride Carbon Dioxide BUN Creatinine Glucose POC Glucose (mg/dL) 116 H 131 H 182 H Calcium % Saturation Transferrin Total Bilirubin ALT Troponin I Total Protein Albumin Urine Protein Ur Leukocyte Esterase Urine WBC Urine Bacteria Hyaline Casts Urine Mucus 08/13/21 08/14/21 08/14/21 20:31 06:28 11:54 WBC RBC MCV Neutrophils # Lymphocytes # PT INR Sodium Potassium Chloride Carbon Dioxide BUN Creatinine Glucose POC Glucose (mg/dL) 157 H 117 H 168 H Calcium % Saturation Transferrin Total Bilirubin ALT Troponin I Total Protein Albumin Urine Protein Ur Leukocyte Esterase Urine WBC Urine Bacteria Hyaline Casts Urine Mucus 08/14/21 08/14/21 08/15/21 16:43 19:47 07:50 WBC RBC MCV Neutrophils # Lymphocytes # PT INR Sodium Potassium Chloride 108 H Carbon Dioxide BUN 19 H Creatinine Glucose 130 H POC Glucose (mg/dL) 199 H 121 H Calcium 8.1 L % Saturation Transferrin Total Bilirubin ALT Troponin I Total Protein Albumin Urine Protein Ur Leukocyte Esterase Urine WBC Urine Bacteria Hyaline Casts Urine Mucus 08/15/21 08/15/21 08/15/21 11:56 16:57 21:44 WBC RBC MCV Neutrophils # Lymphocytes # PT INR Sodium Potassium Chloride Carbon Dioxide BUN Creatinine Glucose POC Glucose (mg/dL) 146 H 207 H 227 H Calcium % Saturation Transferrin Total Bilirubin ALT Troponin I Total Protein Albumin Urine Protein Ur Leukocyte Esterase Urine WBC Urine Bacteria Hyaline Casts Urine Mucus 08/16/21 08/17/21 08/18/21 16:33 20:14 06:17 WBC RBC MCV Neutrophils # Lymphocytes # PT INR Sodium Potassium Chloride Carbon Dioxide BUN Creatinine Glucose POC Glucose (mg/dL) 155 H 117 H 152 H Calcium % Saturation Transferrin Total Bilirubin ALT Troponin I Total Protein Albumin Urine Protein Ur Leukocyte Esterase Urine WBC Urine Bacteria Hyaline Casts Urine Mucus 08/18/21 08/18/21 08/18/21 11:47 16:44 20:33 WBC RBC MCV Neutrophils # Lymphocytes # PT INR Sodium Potassium Chloride Carbon Dioxide BUN Creatinine Glucose POC Glucose (mg/dL) 165 H 167 H 145 H Calcium % Saturation Transferrin Total Bilirubin ALT Troponin I Total Protein Albumin Urine Protein Ur Leukocyte Esterase Urine WBC Urine Bacteria Hyaline Casts Urine Mucus 08/19/21 08/19/21 08/20/21 17:34 20:25 08:45 WBC 18.8 H RBC 3.67 L MCV 104.6 H Neutrophils # 16.9 H Lymphocytes # 0.7 L PT INR Sodium Potassium Chloride Carbon Dioxide BUN Creatinine Glucose POC Glucose (mg/dL) 135 H Calcium % Saturation 51.65 H Transferrin 195.0 L Total Bilirubin ALT Troponin I Total Protein Albumin Urine Protein Ur Leukocyte Esterase Urine WBC Urine Bacteria Hyaline Casts Urine Mucus 08/20/21 08:45 WBC RBC MCV Neutrophils # Lymphocytes # PT INR Sodium Potassium Chloride 109 H Carbon Dioxide BUN 21 H Creatinine Glucose 100 H POC Glucose (mg/dL) Calcium % Saturation Transferrin Total Bilirubin 1.5 H ALT 47 H Troponin I Total Protein 5.1 L Albumin 2.9 L Urine Protein Ur Leukocyte Esterase Urine WBC Urine Bacteria Hyaline Casts Urine Mucus - Diagnostic Findings Chest x-ray: report reviewed, image reviewed (Finding as noted above) Assessment and Plan Assessment: Acute on chronic diastolic heart failure Atrial fibrillation with rapid ventricular response Bilateral wheezing appeared to be related to heart failure due to A. fib mixed bacterial pneumonia, cannot be excluded Chronic persistent asthma by history Leukocytosis likely related to IV steroids Failure to thrive Urinary tract infection due to gram-negative vini, E. coli sensitive to Rocephin Electrolyte imbalance with hypokalemia and hyponatremia Elevated troponin likely related to demand ischemia Developing progressive weakness Mild hydrocephalus Low back pain due to herniated thoracic vertebrae disc and DJD of spine Hypertension hypertensive cardiovascular disease Plan: Monitor patient off of oxygen consider using oxygen his sats dropped down less than 92% Broad-spectrum antibiotics with Zosyn Continue IV steroids Chest x-ray Optimize treatment for heart failure and A. fib with RVR with consideration of amiodarone Continue replace electrolytes including potassium PT OT evaluation Elevated troponin likely related to demand ischemia Continue gentle hydration Deep breathing sense incentive spirometry Continue home medications Further plan of care as per clinical response of the patient Time with Patient: Greater than 30
--- NOTE | 2021-08-20 11:11 | XR ---
EXAMINATION TYPE: XR chest 1V DATE OF EXAM: 08/20/2021 HISTORY: Shortness of breath. COMPARISON: 08/11/21 TECHNIQUE: Single view of the chest is submitted. FINDINGS: Demonstrated are scattered senescent parenchymal change. There is no evidence for focal infiltrate. The heart is stable. Hilar and mediastinal structures are within normal limits. Degenerative changes are seen of the dorsal spine. IMPRESSION: 1. Chronic changes without evidence for acute pulmonary disease.
[2021-08-20 11:47] LABS: Glucose,Whole Blood 119 mg/dL (70-110)
[2021-08-20] MEDS: PIPERACILLIN-TAZOBACTAM 3.375 GM in SODIUM CHLORIDE 0.9% 100 ML IVPB SCH ×2 (12:11→20:44)
[2021-08-20] MEDS: hydrALAZINE HCL 20 MG/ML 1 ML VIAL IVP PRN (15:12)
[2021-08-20] MEDS ORDERED: FUROSEMIDE 10 MG/ML 4 ML VIAL ONE (15:27)
[2021-08-20 15:29] LABS: Glucose,Whole Blood 145 mg/dL (70-110)
[2021-08-20] MEDS ORDERED: FUROSEMIDE 10 MG/ML 4 ML VIAL IV STA (15:30)
[2021-08-20] MEDS: LORazepam 1 MG/0.5 ML VIAL IV PRN (16:11)
--- NOTE | 2021-08-20 16:19 | XR ---
EXAMINATION TYPE: XR chest 1V portable DATE OF EXAM: 08/20/2021 CLINICAL HISTORY: Difficulty breathing progress study. TECHNIQUE: Single AP portable upright view of the chest is obtained. COMPARISON: Chest x-ray from earlier today FINDINGS: Patient more rotated to the right on current study. Chronic parenchymal changes bilaterall y redemonstrated without suspicious new focal airspace opacity, pleural effusion, or pneumothorax see n. Stable mild cardiomegaly with atherosclerotic and ectatic thoracic aorta. Underlying scoliosis red emonstrated. IMPRESSION: Chronic changes and mild cardiomegaly without acute pulmonary process. No significant wally nge from earlier today.
[2021-08-20 17:00] LABS: Glucose,Whole Blood 125 mg/dL (70-110)
[2021-08-20] MEDS: METOPROLOL TARTRATE 25 MG TAB PO SCH ×2 (17:36→22:15)
--- NOTE | 2021-08-20 18:10 | PN ---
PROGRESS NOTE This lady was seen by Cardiology and then advised to be seen as a p.r.n. Re-consult was made because of a rapid ventricular rate. She went into atrial fibrillation, rapid rate. Exact etiology is unclear. However, the rate is better controlled. She is on a Cardizem drip, which I will discontinue. I will change the metoprolol to 25 mg t.i.d., give her Lasix 20 mg b.i.d., check her room-air oxygen saturation and increase activity. Vital signs are stable. S1-S2 heard normally. Irregular rhythm noted. Short systolic murmur noted. Lungs reveal decent air entry. Abdomen is soft. Lower extremities reveal diminished pulses. Central nervous system grossly no focal deficits. We will try to achieve rate control with increased metoprolol dose and also Lasix 20 mg b.i.d. She is anticoagulated with Eliquis. MMODL / IJN: [id number] /
[2021-08-20 20:44] LABS: Glucose,Whole Blood 145 mg/dL (70-110)
[2021-08-20] MEDS: MONTELUKAST 10 MG TAB PO SCH (22:14)
[2021-08-20] MEDS: MELATONIN 5 MG TABLET PO SCH (22:14)
[2021-08-20] MEDS: ATORVASTATIN 20 MG TAB PO SCH (22:14)
[2021-08-21] MEDS: PIPERACILLIN-TAZOBACTAM 3.375 GM in SODIUM CHLORIDE 0.9% 100 ML IVPB SCH ×3 (04:00→18:09)
[2021-08-21 06:18] LABS: Glucose,Whole Blood 104 mg/dL (70-110)
[2021-08-21] MEDS: INSULIN ASPART (NovoLOG) 100 UNIT/ML VIAL SQ SCH ×4 (06:24→20:48)
[2021-08-21] MEDS: PANTOPRAZOLE 40 MG TABLET PO SCH (06:25)
[2021-08-21 08:01] LABS: Basophils % (A) 0 %; Eosinophils # (A) 0.1 k/uL (0-0.7); Eosinophils % (A) 0 %; HCT 39.6 % (34.0-46.0); HGB 12.2 gm/dL (11.4-16.0); Hypochromasia Marked; Lymphocytes # (A) 0.4 k/uL (1.0-4.8); Lymphocytes % (A) 3 %; MCH 32.9 pg (25.0-35.0); MCHC 30.8 g/dL (31.0-37.0); MCV 106.7 fL (80.0-100.0); Macrocytosis Moderate; Mean Platelet Volume 9.9; Monocytes # (A) 0.4 k/uL (0-1.0); Monocytes % (A) 3 %; Neutrophils # (A) 14.8 k/uL (1.3-7.7); Neutrophils % (A) 93 %; Platelet Count 178 k/uL (150-450); RBC 3.71 m/uL (3.80-5.40); RDW 15.1 % (11.5-15.5); WBC 15.9 k/uL (3.8-10.6)
[2021-08-21] MEDS: methylPREDNISolone SOD SUCCI 40 MG/ML 1 ML VIAL IV SCH ×2 (10:02→20:46)
[2021-08-21] MEDS: NYSTATIN 100,000 UNIT/ML SUSP 500,000 UNIT/5 ML CUP PO SCH ×4 (10:02→21:19)
[2021-08-21] MEDS: MEGESTROL 400 MG/10 ML CUP PO SCH (10:02)
[2021-08-21] MEDS: acetaZOLAMIDE 250 MG TAB PO SCH (10:03)
[2021-08-21] MEDS: FUROSEMIDE 20 MG TAB PO SCH ×2 (10:03→16:33)
[2021-08-21] MEDS: APIXABAN 5 MG TAB PO SCH ×2 (10:03→20:45)
[2021-08-21] MEDS: amLODIPine 5 MG TAB PO SCH (10:03)
[2021-08-21] MEDS: NITROFURANTOIN MONOHYD/M-CRYST 100 MG CAP PO SCH ×2 (10:03→21:19)
[2021-08-21] MEDS: METOPROLOL TARTRATE 25 MG TAB PO SCH ×3 (10:04→21:19)
[2021-08-21] MEDS: POTASSIUM CHLORIDE ER 20 MEQ TAB.ER PO SCH (10:10)
[2021-08-21 10:49] LABS: Potassium 4.3 mmol/L (3.5-5.1); Total Bilirubin 2.9 mg/dL (0.2-1.3); Total Protein 5.2 g/dL (6.3-8.2)
[2021-08-21] MEDS: SYMBICORT 160-4.5 MCG INHALER INHALATION SCH ×2 (10:49→19:26)
[2021-08-21] MEDS: ALBUTEROL NEBULIZED 2.5 MG/3 ML INHALATION PRN (10:49)
[2021-08-21 10:50] LABS: Calcium 8.8 mg/dL (8.4-10.2)
[2021-08-21 11:54] LABS: Glucose,Whole Blood 109 mg/dL (70-110)
[2021-08-21 16:27] LABS: Glucose,Whole Blood 119 mg/dL (70-110)
[2021-08-21] MEDS: HYDROcodone/APAP 5-325MG 1 EACH TAB PO PRN (18:41)
--- NOTE | 2021-08-21 19:47 | PN ---
PROGRESS NOTE Mrs Dobbins is in atrial fibrillation, but the rate is much better controlled. She is in and out of sinus rhythm actually. She is anticoagulated. Her rate control is optimal. We will continue current dose of beta blockers. I will see her as needed. Vitals are stable. S1-S2 heard normally. Short systolic murmur noted. Rhythm is regular, actually. Lungs reveal fairly decent air entry. Abdomen is soft. Lower extremity edema has improved. MMODL / IJN: [id number] /
[2021-08-21 20:14] LABS: Glucose,Whole Blood 142 mg/dL (70-110)
[2021-08-21] MEDS: MELATONIN 5 MG TABLET PO SCH (20:45)
[2021-08-21] MEDS: MONTELUKAST 10 MG TAB PO SCH (20:45)
[2021-08-21] MEDS: ATORVASTATIN 20 MG TAB PO SCH (20:45)
[2021-08-22] MEDS: ALBUTEROL NEBULIZED 2.5 MG/3 ML INHALATION PRN ×2 (01:02→17:08)
[2021-08-22] MEDS: PIPERACILLIN-TAZOBACTAM 3.375 GM in SODIUM CHLORIDE 0.9% 100 ML IVPB SCH ×3 (03:54→18:19)
[2021-08-22 05:59] LABS: Glucose,Whole Blood 105 mg/dL (70-110)
[2021-08-22] MEDS: INSULIN ASPART (NovoLOG) 100 UNIT/ML VIAL SQ SCH ×4 (06:41→22:00)
[2021-08-22] MEDS: PANTOPRAZOLE 40 MG TABLET PO SCH (06:43)
[2021-08-22] MEDS: SYMBICORT 160-4.5 MCG INHALER INHALATION SCH ×2 (08:23→20:29)
[2021-08-22] MEDS: methylPREDNISolone SOD SUCCI 40 MG/ML 1 ML VIAL IV SCH ×2 (09:35→20:49)
[2021-08-22] MEDS: NYSTATIN 100,000 UNIT/ML SUSP 500,000 UNIT/5 ML CUP PO SCH ×2 (09:35→19:33)
[2021-08-22] MEDS: POTASSIUM CHLORIDE ER 20 MEQ TAB.ER PO SCH (09:35)
[2021-08-22] MEDS: APIXABAN 5 MG TAB PO SCH ×2 (09:36→20:50)
[2021-08-22] MEDS: NITROFURANTOIN MONOHYD/M-CRYST 100 MG CAP PO SCH (09:36)
[2021-08-22] MEDS: METOPROLOL TARTRATE 25 MG TAB PO SCH ×3 (09:36→22:27)
[2021-08-22] MEDS: FUROSEMIDE 20 MG TAB PO SCH ×2 (09:36→17:17)
[2021-08-22] MEDS: amLODIPine 5 MG TAB PO SCH (09:36)
[2021-08-22] MEDS: acetaZOLAMIDE 250 MG TAB PO SCH (09:36)
[2021-08-22 11:50] LABS: Glucose,Whole Blood 131 mg/dL (70-110)
[2021-08-22] MEDS: MEGESTROL 400 MG/10 ML CUP PO SCH (12:15)
[2021-08-22 16:31] LABS: Glucose,Whole Blood 197 mg/dL (70-110)
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
[2021-08-22] MEDS: LORazepam 1 MG/0.5 ML VIAL IV PRN (17:31)
[2021-08-22] MEDS: MELATONIN 5 MG TABLET PO SCH (20:50)
[2021-08-22] MEDS: ATORVASTATIN 20 MG TAB PO SCH (20:50)
[2021-08-22] MEDS: MONTELUKAST 10 MG TAB PO SCH (20:50)
[2021-08-22 20:58] LABS: Glucose,Whole Blood 122 mg/dL (70-110)
[2021-08-23] MEDS: PIPERACILLIN-TAZOBACTAM 3.375 GM in SODIUM CHLORIDE 0.9% 100 ML IVPB SCH ×3 (03:25→17:18)
[2021-08-23 06:50] LABS: Glucose,Whole Blood 97 mg/dL (70-110)
[2021-08-23] MEDS: PANTOPRAZOLE 40 MG TABLET PO SCH (06:50)
[2021-08-23] MEDS: INSULIN ASPART (NovoLOG) 100 UNIT/ML VIAL SQ SCH ×4 (06:55→21:03)
[2021-08-23 07:46] LABS: Magnesium 2.3 mg/dL (1.6-2.3)
[2021-08-23] MEDS: SYMBICORT 160-4.5 MCG INHALER INHALATION SCH ×2 (07:47→19:39)
[2021-08-23] MEDS: ALBUTEROL NEBULIZED 2.5 MG/3 ML INHALATION PRN ×3 (07:47→19:39)
[2021-08-23 07:48] LABS: HCT 35.5 % (34.0-46.0); HGB 10.8 gm/dL (11.4-16.0); Hypochromasia Marked; MCH 33.2 pg (25.0-35.0); MCHC 30.6 g/dL (31.0-37.0); MCV 108.5 fL (80.0-100.0); Macrocytosis Marked; Mean Platelet Volume 9.5; Platelet Count 169 k/uL (150-450); RBC 3.27 m/uL (3.80-5.40); RDW 15.4 % (11.5-15.5); WBC 20.7 k/uL (3.8-10.6)
[2021-08-23] MEDS: APIXABAN 5 MG TAB PO SCH ×2 (08:32→20:49)
[2021-08-23] MEDS: METOPROLOL TARTRATE 25 MG TAB PO SCH ×3 (08:33→20:49)
[2021-08-23] MEDS: acetaZOLAMIDE 250 MG TAB PO SCH (08:33)
[2021-08-23] MEDS: FUROSEMIDE 20 MG TAB PO SCH ×2 (08:33→17:24)
[2021-08-23] MEDS: POTASSIUM CHLORIDE ER 20 MEQ TAB.ER PO SCH (08:33)
[2021-08-23] MEDS: amLODIPine 5 MG TAB PO SCH (08:33)
[2021-08-23] MEDS: MEGESTROL 400 MG/10 ML CUP PO SCH (08:33)
[2021-08-23] MEDS: methylPREDNISolone SOD SUCCI 40 MG/ML 1 ML VIAL IV SCH (08:33)
[2021-08-23 08:45] LABS: Band Neutrophils % 1 %; Lymphocytes # (M) 1.24 k/uL (1.0-4.8); Metamyelocytes # (M) 0.21 k/uL (0); Metamyelocytes % 1 %; Monocytes # (M) 0.41 k/uL (0-1.0); Myelocytes # (M) 0.21 k/uL (0); Myelocytes % 1 %; Neutrophils % (M) 91 %; Nucleated Red Blood Cells 0 /100 WBC (0-0); Total Cells Counted 200
[2021-08-23 08:48] LABS: Poikilocytosis (M) Present
[2021-08-23 08:49] LABS: RBC Fragments Present
--- NOTE | 2021-08-23 10:55 | XR ---
EXAMINATION TYPE: XR chest 1V DATE OF EXAM: 08/23/2021 HISTORY: Shortness of breath. COMPARISON: 08/20/2021 TECHNIQUE: Single view of the chest is submitted. FINDINGS: Demonstrated are scattered senescent parenchymal change. There is no evidence for focal infiltrate. Linear atelectasis right lower lobe. The heart is stable. Hilar and mediastinal structures are within normal limits. Degenerative changes are seen of the dorsal spine. IMPRESSION: 1. Chronic changes without evidence for acute pulmonary disease.
[2021-08-23 11:49] LABS: Glucose,Whole Blood 103 mg/dL (70-110)
[2021-08-23] MEDS: methylPREDNISolone SOD SUCCI 125 MG/2 ML VIAL IV SCH ×2 (12:15→17:19)
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
[2021-08-23 16:50] LABS: Glucose,Whole Blood 135 mg/dL (70-110)
[2021-08-23 20:16] LABS: Glucose,Whole Blood 191 mg/dL (70-110)
[2021-08-23] MEDS: ACETAMINOPHEN TAB 325 MG TAB PO PRN (20:48)
[2021-08-23] MEDS: ATORVASTATIN 20 MG TAB PO SCH (20:48)
[2021-08-23] MEDS: MONTELUKAST 10 MG TAB PO SCH (20:48)
[2021-08-23] MEDS: DILTIAZEM 125 MG in SODIUM CHLORIDE 0.9% 100 ML IV SCH (22:38)
[2021-08-24] MEDS: methylPREDNISolone SOD SUCCI 125 MG/2 ML VIAL IV SCH ×4 (00:23→17:43)
[2021-08-24] MEDS: PIPERACILLIN-TAZOBACTAM 3.375 GM in SODIUM CHLORIDE 0.9% 100 ML IVPB SCH ×3 (04:36→17:42)
[2021-08-24 06:14] LABS: Glucose,Whole Blood 126 mg/dL (70-110)
[2021-08-24] MEDS: PANTOPRAZOLE 40 MG TABLET PO SCH (06:16)
[2021-08-24] MEDS: INSULIN ASPART (NovoLOG) 100 UNIT/ML VIAL SQ SCH ×4 (06:17→21:14)
[2021-08-24] MEDS: SYMBICORT 160-4.5 MCG INHALER INHALATION SCH ×2 (07:58→20:53)
[2021-08-24] MEDS: ALBUTEROL NEBULIZED 2.5 MG/3 ML INHALATION PRN (07:58)
[2021-08-24 08:29] LABS: Calcium 8.9 mg/dL (8.4-10.2)
[2021-08-24 08:34] LABS: Magnesium 2.5 mg/dL (1.6-2.3); Potassium 4.9 mmol/L (3.5-5.1)
[2021-08-24] MEDS: acetaZOLAMIDE 250 MG TAB PO SCH (09:20)
[2021-08-24] MEDS: APIXABAN 5 MG TAB PO SCH ×2 (09:20→21:15)
[2021-08-24] MEDS: POTASSIUM CHLORIDE ER 20 MEQ TAB.ER PO SCH (09:20)
[2021-08-24] MEDS: METOPROLOL TARTRATE 25 MG TAB PO SCH ×3 (09:20→21:15)
[2021-08-24] MEDS: amLODIPine 5 MG TAB PO SCH (09:21)
[2021-08-24] MEDS: MEGESTROL 400 MG/10 ML CUP PO SCH (09:37)
--- NOTE | 2021-08-24 11:06 | P.NPCON ---
History of Present Illness - Reason for Consult acute renal failure - History of Present Illness Reason for consultation: Acute kidney injury History of present illness: Patient is a 75-year-old female seen in consultation for acute kidney injury. Patient basically creatinine is near 1 and peaked at 1.31 this admission yesterday. It is 1.12 today. Patient presented to the hospital on 08/11/2021 with increased weakness. She was brought in by the EMS. There was slurred speech noted by the family members. Patient's currently resting in bed. Daughter is present at bedside. Patient is quite lethargic and does not answer oceans. She does have history of dementia. Oral intake is poor and daughter is trying to breast feed her as much as possible. Patient went into A. fib with RVR last night and is currently maintained on Cardizem drip. Blood pressure stable. Patient has a Cardoza catheter and is nonoliguric. Patient was receiving oral Lasix which was stopped yesterday. She is not on any IV fluids. Encourage the daughter edema in her legs has improved. No history of diabetes. Did have E. coli UTI and is on antibiotics. Vital signs are stable. General: Resting in bed. HEENT: Head exam is unremarkable. LUNGS: Breath sounds decreased. HEART: Rate and Rhythm are regular. ABDOMEN: Soft, no distention. EXTREMITITES: Trace edema. Past Medical History Past Medical History: Atrial Fibrillation, Asthma, COPD, Dementia, Hyperlipidemia, Hypertension, Memory Impairment, Renal Disease, Seizure Disorder, Vascular Disorder Additional Past Medical History / Comment(s): Aortic aneurysm, daughter states past fluid around lung that was drained off, CKD III, nephrolithiasis, UTI/cystitis, one seizure in 2019, anemia, chronic back pain, bilateral ankle edema, FALLS History of Any Multi-Drug Resistant Organisms: None Reported Past Surgical History: Back Surgery, Hysterectomy, Orthopedic Surgery, Tonsillectomy, Tubal Ligation Additional Past Surgical History / Comment(s): D&C, EGD, colonoscopy, L hip hemiarthroplasty d/t fracure, R shoulder surgery d/t fracture-has hardware Past Anesthesia/Blood Transfusion Reactions: Motion Sickness Additional Past Anesthesia/Blood Transfusion Reaction / Comment(s): Pt has clausterphobia. Past Psychological History: Anxiety Additional Psychological History / Comment(s): Pt resides with her daughter, Analisa who is her legal guardian/caregiver. She uses a walker to ambulate. Her daughter is her caregiver, she assists pt with bathing/dressing and manages her medications and also drives her to [employer]. Smoking Status: Never smoker Past Alcohol Use History: None Reported Past Drug Use History: None Reported - Past Family History Mother Family Medical History: Hypertension Father Family Medical History: Coronary Artery Disease (CAD), Myocardial Infarction ([place]) Additional Family Medical History / Comment(s): Father of a [place] in his 70s. Medications and Allergies Home Medications Medication Instructions Recorded Confirmed Type Montelukast Sodium [Singulair] 10 mg PO HS 10/01/19 08/11/21 History Albuterol Sulfate [Ventolin HFA] 2 puff INHALATION RT-Q4H PRN 05/05/20 08/11/21 History Metoprolol Succinate (ER) [Toprol 25 mg PO BID 02/10/21 08/11/21 History XL] Nitroglycerin Sl Tabs [Nitrostat] 0.4 mg SL Q5M PRN 05/22/21 08/11/21 History predniSONE 10 mg PO DAILY 05/22/21 08/11/21 History Apixaban [Eliquis] 5 mg PO BID 06/10/21 08/11/21 History Atorvastatin [Lipitor] 20 mg PO HS 06/10/21 08/11/21 History Melatonin 10 mg PO HS 06/10/21 08/11/21 History Pantoprazole [Protonix] 40 mg PO DAILY 06/10/21 08/11/21 History Potassium Chloride ER [K-Dur 20] 20 meq PO DAILY 06/10/21 08/11/21 History Budesonide-Formot 160-4.5 Mcg 2 puff INHALATION RT-BID gm 06/11/21 08/11/21 Rx [Symbicort 160-4.5 Mcg Inhaler] Megestrol [Megace] 40 mg PO BID 07/22/21 08/11/21 History Ondansetron [Zofran] 4 mg PO Q8HR PRN 07/22/21 08/11/21 History Amiodarone [Cordarone] See Taper PO DIRECTED 08/11/21 08/11/21 History HYDROcodone/APAP 5-325MG [[place] 1 tab PO TID PRN 08/11/21 08/11/21 History 5-325] Allergies Allergy/AdvReac Type Severity Reaction Status Date / Time levofloxacin Allergy Anaphylaxis Verified 08/11/21 20:09 lisinopril Allergy Unknown Verified 08/11/21 20:09 memantine [From Namenda] Allergy Rash/Hives Verified 08/11/21 20:09 Physical Exam Vitals: Vital Signs Temp Pulse Pulse Pulse Resp BP Pulse Ox 08/24/21 08:00 89 82 22 125/88 100 08/24/21 04:32 98.0 F 89 22 121/86 100 08/24/21 02:00 101 H 08/24/21 00:17 97.9 F 73 22 131/84 100 08/23/21 20:00 98.2 F 89 92 20 123/71 98 08/23/21 19:45 84 08/23/21 19:39 84 08/23/21 16:11 80 08/23/21 16:03 80 08/23/21 16:00 93 20 126/82 99 08/23/21 12:00 98 F 95 20 122/79 98 Intake and Output 08/23/21 08/24/21 08/24/21 22:59 06:59 14:59 Intake Total 0 Balance 0 Intake: Oral 0 Other: Voiding Method Indwelling Catheter Indwelling Catheter Indwelling Catheter Results - Lab Results Most recent lab results Calcium 8.9 mg/dL (8.4-10.2) 08/24/21 07:25 Magnesium 2.5 mg/dL (1.6-2.3) H 08/24/21 07:25 08/23/21 06:35 08/24/21 07:25 Assessment and Plan Plan: Assessment: 1. Acute kidney injury secondary to hemodynamic ATN. Creatinine peaked at 1.31 this admission and is 1.12 today. UA with trace protein. 2. E. coli UTI. On IV antibiotics. 3. A. fib with RVR maintain on Cardizem drip. 4. COPD exacerbation. 5. Benign hypertension. Stable. 6. Hypokalemia from diuresis. Improved. Plan: Continue to hold diuretics. Encourage oral intake. Stop Diamox. Stop potassium supplementation. Continue to monitor renal function and urine output. Thank you for the consultation. I will continue to follow the patient with you during her hospital stay.
[2021-08-24] MEDS: DILTIAZEM 125 MG in SODIUM CHLORIDE 0.9% 100 ML IV SCH (11:22)
--- NOTE | 2021-08-24 11:52 | CDI ---
Documentation Clarification Form Date: 08/24/2021 10:57:24 AM From: Peggy Bran RN, CCDS Admit Date: 08/11/2021 06:34:00 PM Patient Name: Lisbet Dobbins Visit Number: [id number] Discharge Date: ATTENTION: The Clinical Documentation Specialists (CDI) and [facility] Coding Staff appreciate your assistance in clarifying documentation. Please respond to the clarification below the line at the bottom and electronically sign. The CDI & [facility] Coding staff will review the response and follow-up if needed. Please note: Queries are made part of the Legal Health Record. If you have any questions, please contact the author of this message via ITS. Dr. Lalo Nguyen The patient presented with the following clinical indicators. Additional clarification regarding the etiology/cause of the clinical indicators is requested. History/Risk Factors: atrial fibrillation, Asthma, COPD, Hypertension, Renal Disease, Seizure Disorder UTI/cystitis Clinical Indicators: 75-year-old female presented with weakness over the past several days. She had metabolic encephalopathy suspected from acute UTI and her advance dementia. She was ruled in for UTI with urine cultures positive for E coli. 08/15&08/16 progress notes by covering physician has UTI/Sepsis and clarification is requested. 08/11 WBC: 15.3, BUN 18, CR 1.15 08/11 Lactic acid: 2.0 Urinalysis: Ur Leukocyte Esterase Moderate, Hyaline Casts 16, Urine Bacteria Few 08/11 Urine Culture Escherichia coli 08/11 Vitals signs: 122/78 84 16 97.8 97 % RA Treatment: Cardiac/Telemetry monitoring Rocephin 1,000 MG IVP Stat 08/11, then 1 GM IVPB Q 24 HRS 08/12-08/19 Zosyn 3.375 GM IVPB Q 8 HRS 08/20-08/24 In your professional opinion, please clarify if these findings signify one of the following conditions: [ ] Sepsis POA [ ] Sepsis, Not POA [ ] Sepsis ruled out [ ] Other, please specify [ ] Unable to determine SIRS Criteria: 2 or more of the following may indicate SIRS -Temperature < 96.8F (36C) or > 101.0F (38.3C) -Heart Rate > 90 bpm -Respiratory Rate > 20 breaths/min or PaCO2 < 32 mmHg -White Blood Cell Count > 12,000 or < 4,000 cells/mm3 or > 10% bands (Template Last Reviewed: March 2020) [facility]
[2021-08-24 12:21] LABS: Glucose,Whole Blood 169 mg/dL (70-110)
[2021-08-24 16:44] LABS: Glucose,Whole Blood 154 mg/dL (70-110)
--- NOTE | 2021-08-24 19:06 | P.PN ---
Subjective Progress Note Date: 08/24/21 Principal diagnosis: Failure to thrive Urinary tract infection Electrolyte imbalance with hypokalemia and hyponatremia Elevated troponin likely related to demand ischemia Developing progressive weakness Mild hydrocephalus Low back pain due to herniated thoracic vertebrae disc and DJD of spine Hypertension hypertensive cardiovascular disease 08/24/2021, patient seen eval examined during the rounds labs reviewed medications reviewed care plan discussed, respiratory status remains unchanged however seems to be associated with episodes of A. fib with RVR during that time she goes into freezing shortness of breath, similar episode happened overnight has been placed on Cardizem currently on 5 mg/h rate is controlled she somewhat anxious denies any chest pain primary service is present at bedside, due to recurrent episode question were raised about amiodarone noted that patient is being followed by EP service, we will discuss with the per service about consideration of amiodarone given the current status of atrial fibrillation and progressive respiratory deterioration, patient however remains afebrile hemodynamic status stable 100% oxygen on 2 L nasal cannula. Chest x-ray performed on 08/23/2021 reviewed essentially no significant changes been seen no focal infiltrate identified patient has some subsegmental linear atelectasis in the right lower lobe, white cell count is 20,700 with hemoglobin and hematocrit 10/35, BUN/creatinine up to 36/1.31 now down to 42/1.1. Patient remains on as needed bronchodilators with albuterol and oral direct anticoagulant, has been on Cardizem drip 5 mg/h Solu-Medrol is up to 60 mg every 6, patient remains on IV Zosyn 3.375 g 08/16/2021, patient seen eval examined during the rounds labs reviewed medications reviewed, respiratory status remains stable patient doing well remains on room air denies any chest pain, saturation is 98% on room air, patient remains afebrile, patient remains on bronchodilator IV Rocephin for gram-negative urinary tract infection 08/15/2021, patient had relatively less pain in the back, breathing is stable, denies any chest pain, patient has been tolerating IV Rocephin well 08/14/2021, patient seen eval reexamined during the rounds labs reviewed medications reviewed as still have intermittent back pain, respirator status stable denies any chest pain or shortness of breath off of room air now. She remains on bronchodilator and direct oral anticoagulant along with Symbicort tolerating well remains on broad-spectrum IV antibiotics, culture positive for E. coli sensitive to Rocephin 08/13/2021, patient seen and evaluated examined during the round labs reviewed medications reviewed, mild dyspnea on exertion is present denies any chest pain, room air oxygen saturation is 95% to 99%, patient remains afebrile and hemodynamically stable, urine cultures are growing gram-negative rods, patient remains on pain medicines and the anxiety medicine has been on direct oral anticoagulant along with Rocephin already doing well has been afebrile WBC count is down 75-year-old female with prior medical history of the hypertension hypertensive cardiovascular disease has been hospitalized however discharged home brought back due to progressive weakness and inability to eat and swallow also had some component of slurred speech patient has significant history of asthma and asthmatic bronchitis with chronic low back pain, patient was having failure to thrive at home, urine cultures have been sent and results are pending, currently patient is on bronchodilator along with direct oral anticoagulant broad-spectrum antibiotics IV steroids along with her home medicine she is been gently rehydrated with normal saline as well, her white cell count arrival was 15,300 came down to 9000 and hemoglobin and hematocrit remained stable so as the platelet count, PT/INR and quinine so within normal limit potassium was low of only 3 improved after potassium replacement sodium was 134 improved to 139, BUN/creatinine 18/1.15 improved to 17/0.93. Troponin was elevated 0.048 up from 0.042, admitted chest x-ray no active process identified computed tomography scan of the brain mild hydrocephalus with chronic changes Objective - Vital Signs Vital signs: Vital Signs Temp 98.9 F 08/24/21 16:00 Pulse 79 08/24/21 16:00 Resp 20 08/24/21 16:00 BP 125/86 08/24/21 16:00 Pulse Ox 100 08/24/21 16:00 FiO2 30 08/20/21 16:05 Intake & Output 08/23/21 08/24/21 08/24/21 18:59 06:59 18:59 Intake Total 360 Output Total 400 900 Balance -40 -900 Weight 65.771 kg Intake: Oral 360 Output: Urine 400 900 Other: Voiding Method Indwelling Catheter Indwelling Catheter Indwelling Catheter - Exam - Constitutional General appearance: average body habitus, mild distress, family present at bedside somewhat anxious - EENT Eyes: PERRLA Ears: bilateral: normal - Neck Neck: normal ROM Carotids: bilateral: upstroke normal Thyroid: bilateral: normal size - Respiratory Respiratory: bilateral: CTA - Cardiovascular Rhythm: regular Heart sounds: normal: S1, S2 - Neurologic Neurologic: CNII-XII intact - Musculoskeletal Musculoskeletal: generalized weakness, strength equal bilaterally - Psychiatric Psychiatric: appropriate affect, intact judgment & insight - Labs CBC & Chem 7: 08/23/21 06:35 08/24/21 07:25 Labs: Abnormal Lab Results - Last 24 Hours (Table) 08/23/21 08/24/21 08/24/21 Range/Units 20:15 06:13 07:25 Sodium 136 L (137-145) mmol/L Chloride 109 H (98-107) mmol/L BUN 42 H (7-17) mg/dL Creatinine 1.12 H (0.52-1.04) mg/dL Glucose 116 H (74-99) mg/dL POC Glucose (mg/dL) 191 H 126 H (70-110) mg/dL Magnesium 2.5 H (1.6-2.3) mg/dL 08/24/21 08/24/21 Range/Units 12:18 16:43 Sodium (137-145) mmol/L Chloride (98-107) mmol/L BUN (7-17) mg/dL Creatinine (0.52-1.04) mg/dL Glucose (74-99) mg/dL POC Glucose (mg/dL) 169 H 154 H (70-110) mg/dL Magnesium (1.6-2.3) mg/dL Microbiology - Last 24 Hours (Table) 08/20/21 02:14 Urine Culture - Final Urine,Voided Assessment and Plan Assessment: Acute on chronic diastolic heart failure Atrial fibrillation with rapid ventricular response Bilateral wheezing appeared to be related to heart failure due to A. fib mixed bacterial pneumonia, cannot be excluded Chronic persistent asthma by history Leukocytosis likely related to IV steroids Acute kidney injury Failure to thrive Urinary tract infection due to gram-negative vini, E. coli sensitive to Rocephin Electrolyte imbalance with hypokalemia and hyponatremia Elevated troponin likely related to demand ischemia Developing progressive weakness Normal pressure hydrocephalus, neurology following, Low back pain due to herniated thoracic vertebrae disc and DJD of spine Hypertension hypertensive cardiovascular disease Plan: Continue supplemental oxygen 2 L nasal cannula Broad-spectrum antibiotics with Zosyn Continue IV steroids, dose can be tapered slowly Chest x-ray, reviewed with finding as noted above Optimize treatment for heart failure and A. fib with RVR with consideration of amiodarone, message forwarded for EP service, Continue replace electrolytes including potassium PT OT evaluation Elevated troponin likely related to demand ischemia Continue gentle hydration Monitor renal functions closely, FG following Deep breathing sense incentive spirometry Continue home medications Further plan of care as per clinical response of the patient Time with Patient: Greater than 30
[2021-08-24 20:13] LABS: Glucose,Whole Blood 210 mg/dL (70-110)
[2021-08-24] MEDS: ALPRAZolam 0.25 MG TAB PO PRN (21:14)
[2021-08-24] MEDS: MONTELUKAST 10 MG TAB PO SCH (21:15)
[2021-08-24] MEDS: ATORVASTATIN 20 MG TAB PO SCH (21:15)
[2021-08-25] MEDS: PIPERACILLIN-TAZOBACTAM 3.375 GM in SODIUM CHLORIDE 0.9% 100 ML IVPB SCH ×3 (02:10→20:10)
[2021-08-25] MEDS: DILTIAZEM 125 MG in SODIUM CHLORIDE 0.9% 100 ML IV SCH ×2 (02:11→13:45)
[2021-08-25 06:08] LABS: Glucose,Whole Blood 136 mg/dL (70-110)
[2021-08-25] MEDS: PANTOPRAZOLE 40 MG TABLET PO SCH (06:54)
[2021-08-25] MEDS: methylPREDNISolone SOD SUCCI 125 MG/2 ML VIAL IV SCH ×4 (06:54→17:57)
[2021-08-25] MEDS: INSULIN ASPART (NovoLOG) 100 UNIT/ML VIAL SQ SCH ×4 (06:54→21:09)
--- NOTE | 2021-08-25 07:29 | PN ---
PROGRESS NOTE The patient is still going in and out of atrial fibrillation. She was placed on Cardizem today. Appears not to be working. She keeps going in and out of atrial fibrillation. We are waiting for Cardiology to put her on maybe amiodarone type medications of some kind to prevent atrial fibrillation. Calcium channel blockers do not appear to be doing it. She gets short of breath when she goes into atrial fibrillation and heart races on a daily basis. She is 100% on 2 L. Blood pressure is 120 over 70s, pulse is right currently 70-80 in sinus rhythm, respiratory 18-20, temp 98.9. Cardiovascular S1, S2. Lungs scattered wheeze. Hematology: Negative Homans. Psych: Fair mood and affect. We are going to hopefully continue with antibiotics for possible aspiration pneumonia. Get Dr. Mcbride involved for Pulmonary. He recommends amiodarone as well as myself. I agree with that. Await for Cardiology to order this or pulmonary will order it. Prognosis is guarded. MMODL / IJN: [id number] /
[2021-08-25] MEDS: SYMBICORT 160-4.5 MCG INHALER INHALATION SCH ×2 (08:13→20:10)
[2021-08-25 08:48] LABS: Albumin 2.9 g/dL (3.5-5.0); Calcium 9.5 mg/dL (8.4-10.2); Total Bilirubin 1.3 mg/dL (0.2-1.3)
[2021-08-25 08:49] LABS: Magnesium 2.6 mg/dL (1.6-2.3); Potassium 4.6 mmol/L (3.5-5.1)
[2021-08-25 09:25] LABS: HCT 35.7 % (34.0-46.0); HGB 11.1 gm/dL (11.4-16.0); Hypochromasia Marked; MCH 33.3 pg (25.0-35.0); MCHC 31.2 g/dL (31.0-37.0); Macrocytosis Marked; Mean Platelet Volume 10.7; Platelet Count 188 k/uL (150-450); RBC 3.34 m/uL (3.80-5.40)
[2021-08-25] MEDS: APIXABAN 5 MG TAB PO SCH ×2 (09:27→21:10)
[2021-08-25] MEDS: MEGESTROL 400 MG/10 ML CUP PO SCH (09:27)
[2021-08-25] MEDS: METOPROLOL TARTRATE 25 MG TAB PO SCH (09:27)
[2021-08-25] MEDS: amLODIPine 5 MG TAB PO SCH (09:28)
[2021-08-25 10:34] LABS: Neutrophils % (M) 95 %; Nucleated Red Blood Cells 2 /100 WBC (0-0); Total Cells Counted 200
[2021-08-25 10:36] LABS: Lymphocytes # (M) 0.88 k/uL (1.0-4.8); Monocytes # (M) 0.88 k/uL (0-1.0); Neutrophils # (M) 27.84 k/uL (1.3-7.7); WBC 29.3 k/uL (3.8-10.6)
[2021-08-25 10:37] LABS: Poikilocytosis (M) Present
[2021-08-25 11:32] LABS: Glucose,Whole Blood 144 mg/dL (70-110)
--- NOTE | 2021-08-25 14:08 | P.PN ---
Subjective Patient is seen in follow-up for acute kidney injury. Renal function stable. Oral intake fair but has to be fed. More awake today. Nonoliguric. Vital signs are stable. General: Awake. No acute distress. HEENT: Head exam is unremarkable. LUNGS: Breath sounds decreased. HEART: Rate and Rhythm are regular. ABDOMEN: Soft, no distention. EXTREMITITES: No edema. Objective - Vital Signs Vital signs: Vital Signs Temp 97.9 F 08/25/21 11:25 Pulse 144 H 08/25/21 13:44 Resp 17 08/25/21 11:25 BP 143/86 08/25/21 11:25 Pulse Ox 99 08/25/21 11:25 FiO2 30 08/20/21 16:05 Intake & Output 08/24/21 08/25/21 08/25/21 18:59 06:59 18:59 Intake Total 125 Output Total 900 400 Balance -900 125 -400 Weight 65.771 kg Intake: Intake, IV Titration 125 Amount Diltiazem 125 mg In 125 Sodium Chloride 0.9% 100 ml @ 10 MG/HR 10 mls/hr IV .[id number] [facility] Rx#: [id number] Output: Urine 900 400 Other: Voiding Method Indwelling Catheter Indwelling Catheter - Labs CBC & Chem 7: 08/25/21 07:41 08/25/21 07:41 Labs: Abnormal Lab Results - Last 24 Hours (Table) 08/24/21 08/24/21 08/25/21 Range/Units 16:43 20:12 06:07 WBC (3.8-10.6) k/uL RBC (3.80-5.40) m/uL Hgb (11.4-16.0) gm/dL MCV (80.0-100.0) fL RDW (11.5-15.5) % Neutrophils # (Manual) (1.3-7.7) k/uL Lymphocytes # (Manual) (1.0-4.8) k/uL Nucleated RBCs (0-0) /100 WBC Macrocytosis Chloride (98-107) mmol/L BUN (7-17) mg/dL Creatinine (0.52-1.04) mg/dL Glucose (74-99) mg/dL POC Glucose (mg/dL) 154 H 210 H 136 H (70-110) mg/dL Magnesium (1.6-2.3) mg/dL AST (14-36) U/L ALT (4-34) U/L Total Protein (6.3-8.2) g/dL Albumin (3.5-5.0) g/dL 08/25/21 08/25/21 08/25/21 Range/Units 07:41 07:41 11:28 WBC 29.3 H (3.8-10.6) k/uL RBC 3.34 L (3.80-5.40) m/uL Hgb 11.1 L (11.4-16.0) gm/dL MCV 107.0 H (80.0-100.0) fL RDW 16.0 H (11.5-15.5) % Neutrophils # (Manual) 27.84 H (1.3-7.7) k/uL Lymphocytes # (Manual) 0.88 L (1.0-4.8) k/uL Nucleated RBCs 2 H (0-0) /100 WBC Macrocytosis Marked A Chloride 112 H (98-107) mmol/L BUN 44 H (7-17) mg/dL Creatinine 1.14 H (0.52-1.04) mg/dL Glucose 134 H (74-99) mg/dL POC Glucose (mg/dL) 144 H (70-110) mg/dL Magnesium 2.6 H (1.6-2.3) mg/dL AST 53 H (14-36) U/L ALT 107 H (4-34) U/L Total Protein 5.0 L (6.3-8.2) g/dL Albumin 2.9 L (3.5-5.0) g/dL Microbiology - Last 24 Hours (Table) 08/20/21 02:14 Urine Culture - Final Urine,Voided Assessment and Plan Plan: Assessment: 1. Acute kidney injury secondary to hemodynamic ATN. Creatinine peaked at 1.31 this admission and is stable at 1.14 today. UA with trace protein. 2. E. coli UTI. On IV antibiotics. 3. A. fib with RVR on Cardizem drip. Cardiology following. 4. COPD exacerbation. 5. Benign hypertension. Stable. 6. Hypokalemia from diuresis. Improved. Plan: Encouraged oral intake. Avoid nephrotoxins. Continue to monitor renal function and urine output.
[2021-08-25] MEDS ORDERED: METOPROLOL TARTRATE 50 MG TAB PO STA (14:38)
[2021-08-25 16:28] LABS: Glucose,Whole Blood 127 mg/dL (70-110)
[2021-08-25 20:13] LABS: Glucose,Whole Blood 159 mg/dL (70-110)
[2021-08-25] MEDS ORDERED: METOPROLOL TARTRATE 50 MG TAB PO SCH (21:00)
[2021-08-25] MEDS: ATORVASTATIN 20 MG TAB PO SCH (21:10)
[2021-08-25] MEDS: MONTELUKAST 10 MG TAB PO SCH (21:10)
[2021-08-25] MEDS: METOPROLOL TARTRATE 50 MG TAB PO SCH (21:10)
[2021-08-26] MEDS: DILTIAZEM 125 MG in SODIUM CHLORIDE 0.9% 100 ML IV SCH (00:30)
[2021-08-26] MEDS: methylPREDNISolone SOD SUCCI 40 MG/ML 1 ML VIAL IV SCH ×3 (00:32→16:59)
[2021-08-26] MEDS: PIPERACILLIN-TAZOBACTAM 3.375 GM in SODIUM CHLORIDE 0.9% 100 ML IVPB SCH ×3 (03:06→22:04)
[2021-08-26 05:46] LABS: Glucose,Whole Blood 118 mg/dL (70-110)
[2021-08-26] MEDS: INSULIN ASPART (NovoLOG) 100 UNIT/ML VIAL SQ SCH ×4 (06:29→22:03)
[2021-08-26] MEDS: PANTOPRAZOLE 40 MG TABLET PO SCH (06:32)
[2021-08-26] MEDS: SYMBICORT 160-4.5 MCG INHALER INHALATION SCH ×2 (07:15→19:10)
--- NOTE | 2021-08-26 07:27 | PN ---
PROGRESS NOTE 75-year-old female, slightly more alert today. She keeps going into atrial fibrillation. White count up to 29,000, hemoglobin 11.1, neutrophils 27,000. Unclear why she has significant high white count at this point. We are going to consult Dr. Marks. BUN is 44, creatinine 1.14, magnesium is 2.6. Prognosis is extremely guarded. We will continue to treat for possible sepsis. Do blood cultures. Infectious Disease back consulted at this time. Prognosis extremely guarded. Follow up in the next 24 to 48 hours. ASSESSMENT: 1. Hypokalemia. 2. Mild protein calorie malnutrition. 3. Acute kidney injury. 4. E coli urinary tract infection. 5. Atrial fibrillation with RVR. 6. Chronic obstructive pulmonary disease exacerbation. Hopefully, some better medicines for atrial fibrillation at this point will be needed. Monitor for white count and get Dr. Marks. MMODL / IJN: [id number] /
[2021-08-26] MEDS: METOPROLOL TARTRATE 50 MG TAB PO SCH ×2 (08:24→22:04)
[2021-08-26] MEDS: amLODIPine 5 MG TAB PO SCH (08:24)
[2021-08-26] MEDS: APIXABAN 5 MG TAB PO SCH ×2 (08:24→22:04)
[2021-08-26] MEDS: MEGESTROL 400 MG/10 ML CUP PO SCH (08:28)
[2021-08-26 09:34] LABS: African American GFR (CKD) 60 (>60 ml/min/1.73 sqM); Anion Gap 2 mmol/L; Blood Urea Nitrogen 47 mg/dL (7-17); Calcium 9.1 mg/dL (8.4-10.2); Carbon Dioxide 25 mmol/L (22-30); Chloride 113 mmol/L (98-107); Glucose 126 mg/dL (74-99); Magnesium 2.7 mg/dL (1.6-2.3); Non-African American GFR(CKD) 52 (>60 ml/min/1.73 sqM); Potassium 4.3 mmol/L (3.5-5.1); Sodium 140 mmol/L (137-145)
[2021-08-26 09:37] LABS: Appearance,Urine Clear (Clear); Bilirubin,Urine Negative (Negative); Blood,Urine Negative (Negative); Color,Urine Yellow; Glucose,Urine (UA) Negative (Negative); Ketones,Urine 1+ (Negative); Leukocyte Esterase,Urine Negative (Negative); Mucus,Urine Rare /hpf; Nitrite,Urine Negative (Negative); Protein,Urine 1+ (Negative); Specific Gravity,Urine 1.038 (1.001-1.035); Squamous Epithelial Cell,Urine 1 /hpf (0-4); Urobilinogen,Urine <2.0 mg/dL (<2.0); WBC,Urine 3 /hpf (0-5)
--- NOTE | 2021-08-26 10:17 | P.PN ---
Subjective Patient is seen in follow-up for acute kidney injury. Renal function fairly stable. Oral intake fair but has to be fed. Awake. Denies chest pain or shortness of breath. Cardizem drip stopped last night. Nonoliguric. Vital signs are stable. General: Awake. No acute distress. HEENT: Head exam is unremarkable. LUNGS: Breath sounds decreased. HEART: Rate and Rhythm are regular. ABDOMEN: Soft, no distention. EXTREMITITES: No edema. Objective - Vital Signs Vital signs: Vital Signs Temp 97.8 F 08/26/21 07:50 Pulse 69 08/26/21 08:00 Resp 17 08/26/21 08:00 BP 128/78 08/26/21 07:50 Pulse Ox 100 08/26/21 07:50 FiO2 30 08/20/21 16:05 Intake & Output 08/25/21 08/26/21 08/26/21 18:59 06:59 18:59 Intake Total 127.5 Output Total 400 350 Balance -400 -222.5 Intake: Intake, IV Titration 127.5 Amount Diltiazem 125 mg In 127.5 Sodium Chloride 0.9% 100 ml @ 10 MG/HR 10 mls/hr IV .[id number] [facility] Rx#: [id number] Output: Urine 400 350 Other: Voiding Method Indwelling Catheter Indwelling Catheter Indwelling Catheter - Labs CBC & Chem 7: 08/25/21 07:41 08/26/21 07:38 Labs: Abnormal Lab Results - Last 24 Hours (Table) 08/25/21 08/25/21 08/25/21 Range/Units 07:41 11:28 16:26 WBC 29.3 H (3.8-10.6) k/uL Neutrophils # (Manual) 27.84 H (1.3-7.7) k/uL Lymphocytes # (Manual) 0.88 L (1.0-4.8) k/uL Nucleated RBCs 2 H (0-0) /100 WBC Chloride (98-107) mmol/L BUN (7-17) mg/dL Creatinine (0.52-1.04) mg/dL Glucose (74-99) mg/dL POC Glucose (mg/dL) 144 H 127 H (70-110) mg/dL Magnesium (1.6-2.3) mg/dL Ur Specific [place] (1.001-1.035) Urine Protein (Negative) Urine Ketones (Negative) Urine Mucus (None) /hpf 08/25/21 08/26/21 08/26/21 Range/Units 20:11 05:43 07:38 WBC (3.8-10.6) k/uL Neutrophils # (Manual) (1.3-7.7) k/uL Lymphocytes # (Manual) (1.0-4.8) k/uL Nucleated RBCs (0-0) /100 WBC Chloride 113 H (98-107) mmol/L BUN 47 H (7-17) mg/dL Creatinine 1.06 H (0.52-1.04) mg/dL Glucose 126 H (74-99) mg/dL POC Glucose (mg/dL) 159 H 118 H (70-110) mg/dL Magnesium 2.7 H (1.6-2.3) mg/dL Ur Specific [place] (1.001-1.035) Urine Protein (Negative) Urine Ketones (Negative) Urine Mucus (None) /hpf 08/26/21 Range/Units 08:54 WBC (3.8-10.6) k/uL Neutrophils # (Manual) (1.3-7.7) k/uL Lymphocytes # (Manual) (1.0-4.8) k/uL Nucleated RBCs (0-0) /100 WBC Chloride (98-107) mmol/L BUN (7-17) mg/dL Creatinine (0.52-1.04) mg/dL Glucose (74-99) mg/dL POC Glucose (mg/dL) (70-110) mg/dL Magnesium (1.6-2.3) mg/dL Ur Specific [place] 1.038 H (1.001-1.035) Urine Protein 1+ H (Negative) Urine Ketones 1+ H (Negative) Urine Mucus Rare H (None) /hpf Assessment and Plan Plan: Assessment: 1. Acute kidney injury secondary to hemodynamic ATN. Creatinine peaked at 1.31 this admission and is stable at 1.06 today. UA with trace protein. 2. E. coli UTI. On IV antibiotics. 3. A. fib with RVR s/p Cardizem drip. Cardiology following. 4. COPD exacerbation. 5. Benign hypertension. Stable. 6. Hypokalemia from diuresis. Improved. Plan: Encouraged oral intake. Avoid nephrotoxins. Continue to monitor renal function and urine output. Check renal uls.
[2021-08-26 10:49] LABS: C Reactive Protein <0.5 mg/dL (<1.0)
[2021-08-26 11:34] LABS: Glucose,Whole Blood 151 mg/dL (70-110)
--- NOTE | 2021-08-26 13:15 | P.PN ---
Subjective Progress Note Date: 08/26/21 HISTORY OF PRESENT ILLNESS: This is a pleasant 75-year-old with past medical history significant for advanced dementia, postural hypotension, chronic kidney disease, hypertension, p aroxysmal atrial fibrillation on Eliquis, Bronchitis. She used to follow in the office with Dr. Smart. We are being consulted for elevated troponin. Patient is a poor historian unable to state why she came to the hospital. She has no complaints at bedside. Denies any pain, chest pain, shortness of breath. DIAGNOSTICS EKG on admission revealed sinus rhythm HR 900s, T wave inversions inferior anterior and lateral leads, similar to prior EKG Most recent echo 06/2021 revealed EF 5560%, moderately increase posterior wall thickness Laboratory data reviewed-troponin 0.055, 0.42, 0.48. on admission sodium 134, potassium 3.0, BUN 18, serum creatinine 1.1, WBC 15.3, hemoglobin 10.5, platel ets 266 Patient was admitted to the hospital in November 2020 with complaints of chest pain and shortness of breath. She was evaluated by nuclear Stress test and echocardiogram. Nuclear stress test showed mild ischemia. She was evaluated Dr. Cotton, nuclear stress test was reviewed by cardiology and medical therapy was advised. 08/26/2021 Cardiology was asked to evaluate patient secondary to atrial fibrillation with RVR. Apparently yesterday the patient went into A. fib with RVR. She was started on IV Cardizem which has since been discontinued. At the time of my examination the patient remains in atrial fibrillation with controlled ventricular rates in the 70s. Patient denies any chest pain or pressure. She denies any shortness of breath. Blood pressure stable at 128/78. PHYSICAL EXAM: VITAL SIGNS: Reviewed. GENERAL: Well-developed in no acute distress. NECK: Supple. No JVD or thyromegaly LUNGS: Respirations even and unlabored. Lungs essentially clear to auscultation bilaterally. HEART: Irregular rate and rhythm. S1 and S2 heard. EXTREMITIES: Normal range of motion. No clubbing or cyanosis. Peripheral pulses intact. No lower extremity edema ASSESSMENT: Elevated troponin, likely related to acute kidney injury Acute kidney injury Urinary tract infection Leukocytosis Dementia Altered mental status History asthma/COPD Paroxysmal atrial fibrillation on Eliquis History of Hypertension History of postural hypotension Chronic kidney disease PLAN: Continue current cardiac medications Continue metoprolol tartrate 100 mg twice a day Continue telemetry monitoring Further recommendations pending patient's course Nurse practitioner note has been reviewed by physician. Signing provider agrees with the documented findings, assessment, and plan of care. Objective - Vital Signs Vital signs: Vital Signs Temp 97.5 F L 08/26/21 11:45 Pulse 69 08/26/21 11:45 Resp 16 08/26/21 11:45 BP 131/87 08/26/21 11:45 Pulse Ox 100 08/26/21 11:45 FiO2 30 08/20/21 16:05 Intake & Output 08/25/21 08/26/21 08/26/21 18:59 06:59 18:59 Intake Total 127.5 Output Total 400 350 Balance -400 -222.5 Intake: Intake, IV Titration 127.5 Amount Diltiazem 125 mg In 127.5 Sodium Chloride 0.9% 100 ml @ 10 MG/HR 10 mls/hr IV .[id number] [facility] Rx#: [id number] Output: Urine 400 350 Other: Voiding Method Indwelling Catheter Indwelling Catheter Indwelling Catheter - Labs CBC & Chem 7: 08/25/21 07:41 08/26/21 07:38 Labs: Abnormal Lab Results - Last 24 Hours (Table) 08/25/21 08/25/21 08/26/21 Range/Units 16:26 20:11 05:43 Chloride (98-107) mmol/L BUN (7-17) mg/dL Creatinine (0.52-1.04) mg/dL Glucose (74-99) mg/dL POC Glucose (mg/dL) 127 H 159 H 118 H (70-110) mg/dL Magnesium (1.6-2.3) mg/dL Procalcitonin (0.02-0.09) ng/mL Ur Specific [place] (1.001-1.035) Urine Protein (Negative) Urine Ketones (Negative) Urine Mucus (None) /hpf 08/26/21 08/26/21 08/26/21 Range/Units 07:38 07:38 08:54 Chloride 113 H (98-107) mmol/L BUN 47 H (7-17) mg/dL Creatinine 1.06 H (0.52-1.04) mg/dL Glucose 126 H (74-99) mg/dL POC Glucose (mg/dL) (70-110) mg/dL Magnesium 2.7 H (1.6-2.3) mg/dL Procalcitonin 0.13 H (0.02-0.09) ng/mL Ur Specific [place] 1.038 H (1.001-1.035) Urine Protein 1+ H (Negative) Urine Ketones 1+ H (Negative) Urine Mucus Rare H (None) /hpf 08/26/21 Range/Units 11:32 Chloride (98-107) mmol/L BUN (7-17) mg/dL Creatinine (0.52-1.04) mg/dL Glucose (74-99) mg/dL POC Glucose (mg/dL) 151 H (70-110) mg/dL Magnesium (1.6-2.3) mg/dL Procalcitonin (0.02-0.09) ng/mL Ur Specific [place] (1.001-1.035) Urine Protein (Negative) Urine Ketones (Negative) Urine Mucus (None) /hpf
--- NOTE | 2021-08-26 13:59 | US ---
EXAMINATION TYPE: US kidneys/renal and bladder DATE OF EXAM: 08/26/2021 COMPARISON: NONE CLINICAL HISTORY: nica. EXAM MEASUREMENTS: Right Kidney: 8.6 x 3.6 x 4.5 cm Left Kidney: 9.3 x 4.2 x 4.0 cm Patient unable to move from supine position, technically difficult study. Right Kidney: measures small but similar to left, cyst measuring 0.9 x 1.0 x 1.0cm, cortical thinnin g Left Kidney: limited views appear wnl Bladder: not seen There is no evidence for hydronephrosis at this point in time. No nephrolithiasis is seen. No solid masses are identified. The urinary bladder is anechoic. Bilateral ureteral jets are seen. IMPRESSION: 1. Renal cortical thinning bilaterally. 2. right renal cysts.
--- NOTE | 2021-08-26 14:56 | P.PN ---
Subjective Progress Note Date: 08/26/21 Principal diagnosis: Failure to thrive Urinary tract infection Electrolyte imbalance with hypokalemia and hyponatremia Elevated troponin likely related to demand ischemia Developing progressive weakness Mild hydrocephalus Low back pain due to herniated thoracic vertebrae disc and DJD of spine Hypertension hypertensive cardiovascular disease 08/26/2021, patient seen eval examined during the rounds labs reviewed medications reviewed care plan discussed, respiratory status remains stable remains on 2 L oxygen more awake and alert now compared to yesterday steroid dose has been reduced, patient tolerating IV Zosyn fairly well renal functions stable A. fib RVR have converted to sinus rhythm patient is off of Cardizem drip 08/25/2021, patient seen eval examined during the rounds labs reviewed medications reviewed care plan discussed with the staff as well as family members present at bedside, patient remains mildly short of breath denies any chest pain however remains confused patient continued to have intermittent episodes of A. fib with RVR back on Cardizem now on 10 mg an hour in metoprolol dose has been escalated as well EP service is following the want to hold the amiodarone drip for now until maximal dose of beta gabriel are being given, patient denies any sputum production, remains on IV Zosyn and IV steroids, we will start tapering the steroids hopefully IV antibiotics can be switched to oral in next 24-48 hours white cell count continue to go up suspect likely related to steroids 08/24/2021, patient seen eval examined during the rounds labs reviewed medications reviewed care plan discussed, respiratory status remains unchanged however seems to be associated with episodes of A. fib with RVR during that time she goes into freezing shortness of breath, similar episode happened overnight has been placed on Cardizem currently on 5 mg/h rate is controlled she somewhat anxious denies any chest pain primary service is present at bedside, due to recurrent episode question were raised about amiodarone noted that patient is being followed by EP service, we will discuss with the per service about consideration of amiodarone given the current status of atrial fibrillation and progressive respiratory deterioration, patient however remains afebrile hemodynamic status stable 100% oxygen on 2 L nasal cannula. Chest x-ray performed on 08/23/2021 reviewed essentially no significant changes been seen no focal infiltrate identified patient has some subsegmental linear atelectasis in the right lower lobe, white cell count is 20,700 with hemoglobin and hematocrit 10/35, BUN/creatinine up to 36/1.31 now down to 42/1.1. Patient remains on as n eeded bronchodilators with albuterol and oral direct anticoagulant, has been on Cardizem drip 5 mg/h Solu-Medrol is up to 60 mg every 6, patient remains on IV Zosyn 3.375 g 08/16/2021, patient seen eval examined during the rounds labs reviewed medications reviewed, respiratory status remains stable patient doing well remains on room air denies any chest pain, saturation is 98% on room air, patien t remains afebrile, patient remains on bronchodilator IV Rocephin for gram- negative urinary tract infection 08/15/2021, patient had relatively less pain in the back, breathing is stable, denies any chest pain, patient has been tolerating IV Rocephin well 08/14/2021, patient seen eval reexamined during the rounds labs reviewed medications reviewed as still have intermittent back pain, respirator status stable denies any chest pain or shortness of breath off of room air now. She remains on bronchodilator and direct oral anticoagulant along with Symbicort tolerating well remains on broad-spectrum IV antibiotics, culture positive for E. coli sensitive to Rocephin 08/13/2021, patient seen and evaluated examined during the round labs reviewed medications reviewed, mild dyspnea on exertion is present denies any chest pain, room air oxygen saturation is 95% to 99%, patient remains afebrile and hemodynamically stable, urine cultures are growing gram-negative rods, patient remains on pain medicines and the anxiety medicine has been on direct oral anticoagulant along with Rocephin already doing well has been afebrile WBC count is down 75-year-old female with prior medical history of the hypertension hypertensive cardiovascular disease has been hospitalized however discharged home brought back due to progressive weakness and inability to eat and swallow also had some component of slurred speech patient has significant history of asthma and asthmatic bronchitis with chronic low back pain, patient was having failure to thrive at home, urine cultures have been sent and results are pending, currently patient is on bronchodilator along with direct oral anticoagulant broad-spectrum antibiotics IV steroids along with her home medicine she is been gently rehydrated with normal saline as well, her white cell count arrival was 15,300 came down to 9000 and hemoglobin and hematocrit remained stable so as the platelet count, PT/INR and quinine so within normal limit potassium was low of only 3 improved after potassium replacement sodium was 134 improved to 139, BUN/creatinine 18/1.15 improved to 17/0.93. Troponin was elevated 0.048 up from 0.042, admitted chest x-ray no active process identified computed tomography scan of the brain mild hydrocephalus with chronic changes Objective - Vital Signs Vital signs: Vital Signs Temp 97.5 F L 08/26/21 11:45 Pulse 69 08/26/21 11:45 Resp 16 08/26/21 11:45 BP 131/87 08/26/21 11:45 Pulse Ox 100 08/26/21 11:45 FiO2 30 08/20/21 16:05 Intake & Output 08/25/21 08/26/21 08/26/21 18:59 06:59 18:59 Intake Total 127.5 Output Total 400 350 Balance -400 -222.5 Intake: Intake, IV Titration 127.5 Amount Diltiazem 125 mg In 127.5 Sodium Chloride 0.9% 100 ml @ 10 MG/HR 10 mls/hr IV .[id number] [facility] Rx#: [id number] Output: Urine 400 350 Other: Voiding Method Indwelling Catheter Indwelling Catheter Indwelling Catheter - Exam - Constitutional General appearance: average body habitus, mild distress, family present at bedside somewhat anxious - EENT Eyes: PERRLA Ears: bilateral: normal - Neck Neck: normal ROM Carotids: bilateral: upstroke normal Thyroid: bilateral: normal size - Respiratory Respiratory: bilateral: CTA - Cardiovascular Rhythm: regular Heart sounds: normal: S1, S2 - Neurologic Neurologic: CNII-XII intact - Musculoskeletal Musculoskeletal: generalized weakness, strength equal bilaterally - Psychiatric Psychiatric: appropriate affect, intact judgment & insight - Labs CBC & Chem 7: 08/25/21 07:41 08/26/21 07:38 Labs: Abnormal Lab Results - Last 24 Hours (Table) 08/25/21 08/25/21 08/26/21 Range/Units 16:26 20:11 05:43 Chloride (98-107) mmol/L BUN (7-17) mg/dL Creatinine (0.52-1.04) mg/dL Glucose (74-99) mg/dL POC Glucose (mg/dL) 127 H 159 H 118 H (70-110) mg/dL Magnesium (1.6-2.3) mg/dL Procalcitonin (0.02-0.09) ng/mL Ur Specific [place] (1.001-1.035) Urine Protein (Negative) Urine Ketones (Negative) Urine Mucus (None) /hpf 08/26/21 08/26/21 08/26/21 Range/Units 07:38 07:38 08:54 Chloride 113 H (98-107) mmol/L BUN 47 H (7-17) mg/dL Creatinine 1.06 H (0.52-1.04) mg/dL Glucose 126 H (74-99) mg/dL POC Glucose (mg/dL) (70-110) mg/dL Magnesium 2.7 H (1.6-2.3) mg/dL Procalcitonin 0.13 H (0.02-0.09) ng/mL Ur Specific [place] 1.038 H (1.001-1.035) Urine Protein 1+ H (Negative) Urine Ketones 1+ H (Negative) Urine Mucus Rare H (None) /hpf 08/26/21 Range/Units 11:32 Chloride (98-107) mmol/L BUN (7-17) mg/dL Creatinine (0.52-1.04) mg/dL Glucose (74-99) mg/dL POC Glucose (mg/dL) 151 H (70-110) mg/dL Magnesium (1.6-2.3) mg/dL Procalcitonin (0.02-0.09) ng/mL Ur Specific [place] (1.001-1.035) Urine Protein (Negative) Urine Ketones (Negative) Urine Mucus (None) /hpf Assessment and Plan Assessment: Acute on chronic diastolic heart failure Atrial fibrillation with rapid ventricular response Bilateral wheezing appeared to be related to heart failure due to A. fib mixed bacterial pneumonia, cannot be excluded Chronic persistent asthma by history Leukocytosis likely related to IV steroids Acute kidney injury Failure to thrive Urinary tract infection due to gram-negative vini, E. coli sensitive to Rocephin Electrolyte imbalance with hypokalemia and hyponatremia Elevated troponin likely related to demand ischemia Developing progressive weakness Normal pressure hydrocephalus, neurology following, Low back pain due to herniated thoracic vertebrae disc and DJD of spine Hypertension hypertensive cardiovascular disease Plan: Continue supplemental oxygen 2 L nasal cannula Broad-spectrum antibiotics with Zosyn Continue IV steroids, continue for now 40 mg IV every 12 Optimize treatment for heart failure and A. fib with RVR with consideration of amiodarone, if he relapses Continue replace electrolytes including potassium PT OT evaluation Elevated troponin likely related to demand ischemia Continue gentle hydration Monitor renal functions closely, FG following Deep breathing sense incentive spirometry Continue home medications Further plan of care as per clinical response of the patient Time with Patient: Greater than 30
[2021-08-26 16:23] LABS: Glucose,Whole Blood 176 mg/dL (70-110)
[2021-08-26] MEDS: FLUCONAZOLE 100 MG TAB PO SCH (16:59)
--- NOTE | 2021-08-26 17:32 | P.PN ---
Progress Note - Text Progress Note Date: 08/26/21 Interval history: I'm rounding for Dr. Lalo Nguyen August 26: Laying in bed, tired, eating some. Had a bowel movement yesterday. Rather sleepy. Patient yesterday went into atrial fibrillation rapid ventricular rate. Was started on IV Cardizem then discontinued. A. fib controlled today. Active Medications Acetaminophen (Acetaminophen Tab 325 Mg Tab) 650 mg PO Q6HR PRN PRN Reason: Mild Pain or Fever > 100.5 Last Admin: 08/23/21 20:48 Dose: 650 mg Hydrocodone Bitart/Acetaminophen (Hydrocodone/Apap 5-325mg 1 Each Tab) 1 each PO Q6HR PRN PRN Reason: Pain Last Admin: 08/21/21 18:41 Dose: 1 each Albuterol Sulfate (Albuterol Nebulized 2.5 Mg/3 Ml) 2.5 mg INHALATION RT-Q4H PRN PRN Reason: Shortness Of Breath Last Admin: 08/23/21 19:39 Dose: 2.5 mg Alprazolam (Alprazolam 0.25 Mg Tab) 0.25 mg PO QID PRN PRN Reason: Anxiety Last Admin: 08/24/21 21:14 Dose: 0.25 mg Amlodipine Besylate (Amlodipine 5 Mg Tab) 5 mg PO DAILY [facility] Last Admin: 08/26/21 08:24 Dose: 5 mg Apixaban (Apixaban 5 Mg Tab) 5 mg PO BID [facility]; Protocol Last Admin: 08/26/21 08:24 Dose: 5 mg Atorvastatin Calcium (Atorvastatin 20 Mg Tab) 20 mg PO HS [facility] Last Admin: 08/25/21 21:10 Dose: 20 mg Budesonide/Formoterol Fumarate (Symbicort 160-4.5 Mcg Inhaler) 2 puff INHALATION RT-BID [facility] Last Admin: 08/26/21 07:15 Dose: 2 puff Fluconazole (Fluconazole 100 Mg Tab) 100 mg PO DAILY [facility]; Protocol Last Admin: 08/26/21 16:59 Dose: 100 mg Hydralazine HCl (Hydralazine Hcl 20 Mg/Ml 1 Ml Vial) 10 mg IVP Q6HR PRN PRN Reason: Blood Pressure - High Last Admin: 08/20/21 15:12 Dose: 10 mg Piperacillin Sod/Tazobactam (Sod 3.375 gm/ Sodium Chloride) 100 mls @ 25 mls/hr IVPB Q8H [facility]; Protocol Last Admin: 08/26/21 11:29 Dose: 25 mls/hr Insulin Aspart (Insulin Aspart (Novolog) 100 Unit/Ml Vial) 0 unit SQ ACHS [facility]; Protocol Last Admin: 08/26/21 16:59 Dose: 4 unit Megestrol Acetate (Megestrol 400 Mg/10 Ml Cup) 200 mg PO DAILY [facility] Last Admin: 08/26/21 08:28 Dose: 200 mg Methylprednisolone Sodium Succinate (Methylprednisolone Sod Succi 40 Mg/Ml 1 Ml Vial) 40 mg IV Q8HR [facility] Last Admin: 08/26/21 16:59 Dose: 40 mg Metoprolol Tartrate (Metoprolol Tartrate 50 Mg Tab) 100 mg PO BID [facility] Last Admin: 08/26/21 08:24 Dose: 100 mg Montelukast Sodium (Montelukast 10 Mg Tab) 10 mg PO HS [facility] Last Admin: 08/25/21 21:10 Dose: 10 mg Naloxone HCl (Naloxone 0.4 Mg/Ml 1 Ml Vial) 0.2 mg IV Q2M PRN PRN Reason: Opioid Reversal Ondansetron HCl (Ondansetron 4 Mg Tab) 4 mg PO Q8HR PRN PRN Reason: Nausea Pantoprazole Sodium (Pantoprazole 40 Mg Tablet) 40 mg PO AC-BRKFST [facility] Last Admin: 08/26/21 06:32 Dose: 40 mg On examination: VITAL SIGNS: [97.5, 69, 16, 131/87, 100% on 2 L] GENERAL APPEARANCE: Reclining in bed, tired sleepy. HEENT: Normal external appearance of nose and ear. Oral cavity normal EYES: Pupils equal. Conjunctiva normal. NECK: JVD not raised. Mass not palpable. RESPIRATORY: Respiratory effort normal. Lungs decreased breath sounds. CARDIOVASCULAR: First and second sounds normal. No edema. ABDOMEN: Soft. Liver and spleen not palpable. No tenderness. No mass palpable. PSYCHIATRY: Sleepy, answering simple questions INVESTIGATIONS, reviewed in the clinical context: Sodium 140 potassium 4.3 BUN 47 creatinine 1.06 pro-calcitonin 0.13 Assessment and plan: -Paroxysmal atrial fibrillation with rapid ventricular rate, now rate controlled Eliquis 5 mg twice a day. Lopressor 100 mg twice a day. Patient was on Cardizem drip yesterday now discontinued -Acute kidney injury secondary to hemodynamic ATN.: Better Creatinine was 0.88 on August 15. Creatinine had peaked at 1.31. Now 1.06. 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
[2021-08-26 21:43] LABS: Glucose,Whole Blood 142 mg/dL (70-110)
[2021-08-26] MEDS: ATORVASTATIN 20 MG TAB PO SCH (22:04)
[2021-08-26] MEDS: MONTELUKAST 10 MG TAB PO SCH (22:04)
--- NOTE | 2021-08-26 22:30 | P.CONS ---
History of Present Illness - Reason for Consult Consult date: 08/26/21 - History of Present Illness Patient is a 75-year-old -[place] female presenting to the hospital 2 weeks ago on 08/11/2021 for evaluation of increased weakness and some slurred speech patient subsequently has been evaluated by admitting team in addition to the cardiology pulmonary and neurology services during this hospital stay patient did not have any fever patient did have a white count of 15.3 on admission the subsequent normalized however the white count seem to be trending up over the last few days and was up to 29.3 yesterday that has prompted this infectious disease consultation patient BUN/creatinine mildly elevated liver exams are mildly elevated patient did have a positive UA on admission which did grow E. coli which was a sensitive pathogen repeat UA was ordered for this morning which came back negative COVID testing was negative patient did have a last chest x-ray completed on 08/23/2021 which was chronic changes without evidence for acute pulmonary disease patient is currently on a combination of Zosyn and Solu-Medrol per pulmonary patient has self-motivated good historian however has been complaining of weakness denies having any chest pain did have some minimal cough no sputum production no abdominal pain and no diarrhea was reported by nursing staff no choking on the food Past Medical History Past Medical History: Atrial Fibrillation, Asthma, COPD, Dementia, Hyperlipidemia, Hypertension, Memory Impairment, Renal Disease, Seizure Disorder , Vascular Disorder Additional Past Medical History / Comment(s): Aortic aneurysm, daughter states past fluid around lung that was drained off, CKD III, nephrolithiasis, UTI/c ystitis, one seizure in 2019, anemia, chronic back pain, bilateral ankle edema, FALLS History of Any Multi-Drug Resistant Organisms: None Reported Past Surgical History: Back Surgery, Hysterectomy, Orthopedic Surgery, Tonsillectomy, Tubal Ligation Additional Past Surgical History / Comment(s): D&C, EGD, colonoscopy, L hip h emiarthroplasty d/t fracure, R shoulder surgery d/t fracture-has hardware Past Anesthesia/Blood Transfusion Reactions: Motion Sickness Additional Past Anesthesia/Blood Transfusion Reaction / Comm: Pt has clausterphobia. Past Psychological History: Anxiety Additional Psychological History / Comment(s): Pt resides with her daughter, Analisa who is her legal guardian/caregiver. She uses a walker to ambulate. Her daughter is her caregiver, she assists pt with bathing/dressing and manages her medications and also drives her to appts. Smoking Status: Never smoker Past Alcohol Use History: None Reported Past Drug Use History: None Reported - Past Family History Mother Family Medical History: Hypertension Father Family Medical History: Coronary Artery Disease (CAD), Myocardial Infarction ([place]) Additional Family Medical History / Comment(s): Father of a [place] in his 70s. Medications and Allergies Home Medications Medication Instructions Recorded Confirmed Type Montelukast Sodium [Singulair] 10 mg PO HS 10/01/19 08/11/21 History Albuterol Sulfate [Ventolin HFA] 2 puff INHALATION RT-Q4H PRN 05/05/20 08/11/21 History Metoprolol Succinate (ER) [Toprol 25 mg PO BID 02/10/21 08/11/21 History XL] Nitroglycerin Sl Tabs [Nitrostat] 0.4 mg SL Q5M PRN 05/22/21 08/11/21 History predniSONE 10 mg PO DAILY 05/22/21 08/11/21 History Apixaban [Eliquis] 5 mg PO BID 06/10/21 08/11/21 History Atorvastatin [Lipitor] 20 mg PO HS 06/10/21 08/11/21 History Melatonin 10 mg PO HS 06/10/21 08/11/21 History Pantoprazole [Protonix] 40 mg PO DAILY 06/10/21 08/11/21 History Potassium Chloride ER [K-Dur 20] 20 meq PO DAILY 06/10/21 08/11/21 History Budesonide-Formot 160-4.5 Mcg 2 puff INHALATION RT-BID gm 06/11/21 08/11/21 Rx [Symbicort 160-4.5 Mcg Inhaler] Megestrol [Megace] 40 mg PO BID 07/22/21 08/11/21 History Ondansetron [Zofran] 4 mg PO Q8HR PRN 07/22/21 08/11/21 History Amiodarone [Cordarone] See Taper PO DIRECTED 08/11/21 08/11/21 History HYDROcodone/APAP 5-325MG [[place]ray 1 tab PO TID PRN 08/11/21 08/11/21 History 5-325] Allergies Allergy/AdvReac Type Severity Reaction Status Date / Time levofloxacin Allergy Anaphylaxis Verified 08/11/21 20:09 lisinopril Allergy Unknown Verified 08/11/21 20:09 memantine [From Namenda] Allergy Rash/Hives Verified 08/11/21 20:09 Physical Exam Vitals: Vital Signs Temp Pulse Pulse Resp BP Pulse Ox 08/26/21 03:57 99.1 F 67 16 116/77 100 08/26/21 02:00 72 18 08/26/21 00:00 99 F 80 18 123/87 100 08/25/21 20:00 98.3 F 87 87 22 123/88 99 08/25/21 16:00 97.5 F L 85 16 134/71 98 08/25/21 14:00 144 H 17 08/25/21 13:44 144 H 08/25/21 11:25 97.9 F 98 17 143/86 99 08/25/21 08:10 97.7 F 77 17 127/79 99 08/25/21 08:00 76 17 Intake and Output 08/25/21 08/26/21 08/26/21 22:59 06:59 14:59 Intake Total 127.5 Output Total 350 Balance -222.5 Intake: Intake, IV Titration 127.5 Amount Diltiazem 125 mg In 127.5 Sodium Chloride 0.9% 100 ml @ 10 MG/HR 10 mls/hr IV .[id number] [facility] Rx#: [id number] Output: Urine 350 Other: Voiding Method Indwelling Catheter Indwelling Catheter Results CBC & Chem 7: 08/25/21 07:41 08/26/21 07:38 Labs: Abnormal Lab Results - Last 24 Hours (Table) 08/25/21 08/25/21 08/25/21 Range/Units 07:41 07:41 11:28 WBC 29.3 H (3.8-10.6) k/uL RBC 3.34 L (3.80-5.40) m/uL Hgb 11.1 L (11.4-16.0) gm/dL MCV 107.0 H (80.0-100.0) fL RDW 16.0 H (11.5-15.5) % Neutrophils # (Manual) 27.84 H (1.3-7.7) k/uL Lymphocytes # (Manual) 0.88 L (1.0-4.8) k/uL Nucleated RBCs 2 H (0-0) /100 WBC Macrocytosis Marked A Chloride 112 H (98-107) mmol/L BUN 44 H (7-17) mg/dL Creatinine 1.14 H (0.52-1.04) mg/dL Glucose 134 H (74-99) mg/dL POC Glucose (mg/dL) 144 H (70-110) mg/dL Magnesium 2.6 H (1.6-2.3) mg/dL AST 53 H (14-36) U/L ALT 107 H (4-34) U/L Total Protein 5.0 L (6.3-8.2) g/dL Albumin 2.9 L (3.5-5.0) g/dL 08/25/21 08/25/21 08/26/21 Range/Units 16:26 20:11 05:43 WBC (3.8-10.6) k/uL RBC (3.80-5.40) m/uL Hgb (11.4-16.0) gm/dL MCV (80.0-100.0) fL RDW (11.5-15.5) % Neutrophils # (Manual) (1.3-7.7) k/uL Lymphocytes # (Manual) (1.0-4.8) k/uL Nucleated RBCs (0-0) /100 WBC Macrocytosis Chloride (98-107) mmol/L BUN (7-17) mg/dL Creatinine (0.52-1.04) mg/dL Glucose (74-99) mg/dL POC Glucose (mg/dL) 127 H 159 H 118 H (70-110) mg/dL Magnesium (1.6-2.3) mg/dL AST (14-36) U/L ALT (4-34) U/L Total Protein (6.3-8.2) g/dL Albumin (3.5-5.0) g/dL Assessment and Plan Plan: 1patient with a leukocytosis in this patient has been in the hospital for more than 2 weeks now with initial admission to the hospital with weakness patient did not have any fever last chest x-ray 3 days ago did not show any evidence of pneumonia urine has been negative abdominal soft clinical examination no diarrhea reported by the nursing staff elevated white and more likely related to steroids plus minus oropharyngeal candidiasis. 2we will repeat a chest x-ray PA and lateral. 3we will add Diflucan 100 milligrams p.o. daily. 4we will repeat her CBC and CRP with a.m. lab. We will follow on clinical condition and cultures to further adjust medication if needed Thank you for this consultation will follow this patient along with you Time with Patient: Greater than 30
[2021-08-27] MEDS: methylPREDNISolone SOD SUCCI 40 MG/ML 1 ML VIAL IV SCH ×4 (00:12→23:32)
[2021-08-27] MEDS: PIPERACILLIN-TAZOBACTAM 3.375 GM in SODIUM CHLORIDE 0.9% 100 ML IVPB SCH ×2 (04:14→15:57)
[2021-08-27] MEDS: HYDROcodone/APAP 5-325MG 1 EACH TAB PO PRN (06:15)
[2021-08-27 06:37] LABS: Glucose,Whole Blood 133 mg/dL (70-110)
[2021-08-27] MEDS: PANTOPRAZOLE 40 MG TABLET PO SCH (06:46)
[2021-08-27] MEDS: INSULIN ASPART (NovoLOG) 100 UNIT/ML VIAL SQ SCH ×4 (06:46→21:44)
[2021-08-27] MEDS: SYMBICORT 160-4.5 MCG INHALER INHALATION SCH ×2 (08:29→20:36)
[2021-08-27] MEDS: amLODIPine 5 MG TAB PO SCH (09:54)
[2021-08-27] MEDS: KETOTIFEN 0.025% OPHTH DROPS 5 ML BTL BOTH EYES SCH ×3 (09:55→21:45)
[2021-08-27] MEDS: FLUCONAZOLE 100 MG TAB PO SCH (09:55)
[2021-08-27] MEDS: MEGESTROL 400 MG/10 ML CUP PO SCH (09:55)
[2021-08-27] MEDS: APIXABAN 5 MG TAB PO SCH ×2 (09:55→21:45)
[2021-08-27] MEDS: METOPROLOL TARTRATE 50 MG TAB PO SCH ×2 (09:55→21:44)
[2021-08-27 10:32] LABS: Anisocytosis Slight; Basophils % (A) 0 %; Eosinophils # (A) 0.1 k/uL (0-0.7); Eosinophils % (A) 1 %; HCT 32.5 % (34.0-46.0); HGB 10.1 gm/dL (11.4-16.0); Hypochromasia Marked; Lymphocytes # (A) 0.4 k/uL (1.0-4.8); Lymphocytes % (A) 2 %; MCH 33.4 pg (25.0-35.0); MCHC 31.1 g/dL (31.0-37.0); Macrocytosis Marked; Mean Platelet Volume 9.5; Monocytes # (A) 0.5 k/uL (0-1.0); Monocytes % (A) 2 %; Neutrophils # (A) 21.3 k/uL (1.3-7.7); Neutrophils % (A) 95 %; Platelet Count 161 k/uL (150-450); RBC 3.03 m/uL (3.80-5.40); RDW 16.3 % (11.5-15.5); WBC 22.4 k/uL (3.8-10.6)
[2021-08-27 10:33] LABS: MCV 107.2 fL (80.0-100.0)
[2021-08-27 11:20] LABS: Albumin 2.7 g/dL (3.5-5.0); Calcium 8.8 mg/dL (8.4-10.2); Magnesium 2.7 mg/dL (1.6-2.3); Total Bilirubin 1.3 mg/dL (0.2-1.3); Total Protein 4.6 g/dL (6.3-8.2)
[2021-08-27 11:33] LABS: Potassium 4.9 mmol/L (3.5-5.1)
[2021-08-27 12:06] LABS: Glucose,Whole Blood 147 mg/dL (70-110)
[2021-08-27] MEDS ORDERED: VANCOMYCIN IV PER PHARMACY 1 EACH MISC MISCELLANE PRN (12:24)
--- NOTE | 2021-08-27 12:40 | P.PN ---
Subjective Progress Note Date: 08/27/21 HISTORY OF PRESENT ILLNESS: This is a pleasant 75-year-old with past medical history significant for advanced dementia, postural hypotension, chronic kidney disease, hypertension, p aroxysmal atrial fibrillation on Eliquis, Bronchitis. She used to follow in the office with Dr. Smart. We are being consulted for elevated troponin. Patient is a poor historian unable to state why she came to the hospital. She has no complaints at bedside. Denies any pain, chest pain, shortness of breath. DIAGNOSTICS EKG on admission revealed sinus rhythm HR 900s, T wave inversions inferior anterior and lateral leads, similar to prior EKG Most recent echo 06/2021 revealed EF 5560%, moderately increase posterior wall thickness Laboratory data reviewed-troponin 0.055, 0.42, 0.48. on admission sodium 134, potassium 3.0, BUN 18, serum creatinine 1.1, WBC 15.3, hemoglobin 10.5, platel ets 266 Patient was admitted to the hospital in November 2020 with complaints of chest pain and shortness of breath. She was evaluated by nuclear Stress test and echocardiogram. Nuclear stress test showed mild ischemia. She was evaluated Dr. Cotton, nuclear stress test was reviewed by cardiology and medical therapy was advised. 08/26/2021 Cardiology was asked to evaluate patient secondary to atrial fibrillation with RVR. Apparently yesterday the patient went into A. fib with RVR. She was started on IV Cardizem which has since been discontinued. At the time of my examination the patient remains in atrial fibrillation with controlled ventricular rates in the 70s. Patient denies any chest pain or pressure. She denies any shortness of breath. Blood pressure stable at 128/78. 08/27/2021 Patient examined this morning at the bedside. Patient denies chest pain or pre ssure. She denies shortness of breath. Telemetry reveals sinus mechanism with PACs. Heart rate is in the 80s. PHYSICAL EXAM: VITAL SIGNS: Reviewed. GENERAL: Well-developed in no acute distress. NECK: Supple. No JVD or thyromegaly LUNGS: Respirations even and unlabored. Lungs essentially clear to auscultation bilaterally. HEART: Irregular rate and rhythm. S1 and S2 heard. EXTREMITIES: Normal range of motion. No clubbing or cyanosis. Peripheral pulses intact. No lower extremity edema ASSESSMENT: Acute kidney injury Urinary tract infection Leukocytosis Elevated troponin, likely related to acute kidney injury Dementia Altered mental status History asthma/COPD Paroxysmal atrial fibrillation on Eliquis History of Hypertension History of postural hypotension Chronic kidney disease PLAN: Continue current cardiac medications Continue metoprolol tartrate 100 mg twice a day Continue telemetry monitoring Further recommendations pending patient's course Nurse practitioner note has been reviewed by physician. Signing provider agrees with the documented findings, assessment, and plan of care. Objective - Vital Signs Vital signs: Vital Signs Temp 97.7 F 08/27/21 07:45 Pulse 89 08/27/21 07:45 Resp 16 08/27/21 07:45 BP 115/81 08/27/21 07:45 Pulse Ox 100 08/27/21 07:45 FiO2 30 08/20/21 16:05 Intake & Output 08/26/21 08/27/21 08/27/21 18:59 06:59 18:59 Output Total 275 Balance -275 Weight 64.5 kg 64.5 kg Output: Urine 275 Other: Voiding Method Indwelling Catheter Indwelling Catheter Indwelling Catheter # Bowel Movements 1 - Labs CBC & Chem 7: 08/27/21 10:13 08/27/21 10:13 Labs: Abnormal Lab Results - Last 24 Hours (Table) 08/26/21 08/26/21 08/27/21 Range/Units 16:20 21:41 06:34 WBC (3.8-10.6) k/uL RBC (3.80-5.40) m/uL Hgb (11.4-16.0) gm/dL Hct (34.0-46.0) % MCV (80.0-100.0) fL RDW (11.5-15.5) % Neutrophils # (1.3-7.7) k/uL Lymphocytes # (1.0-4.8) k/uL Macrocytosis Chloride (98-107) mmol/L BUN (7-17) mg/dL Glucose (74-99) mg/dL POC Glucose (mg/dL) 176 H 142 H 133 H (70-110) mg/dL Magnesium (1.6-2.3) mg/dL AST (14-36) U/L ALT (4-34) U/L Total Protein (6.3-8.2) g/dL Albumin (3.5-5.0) g/dL 08/27/21 08/27/21 08/27/21 Range/Units 10:13 10:13 12:05 WBC 22.4 H (3.8-10.6) k/uL RBC 3.03 L (3.80-5.40) m/uL Hgb 10.1 L (11.4-16.0) gm/dL Hct 32.5 L (34.0-46.0) % MCV 107.2 H (80.0-100.0) fL RDW 16.3 H (11.5-15.5) % Neutrophils # 21.3 H (1.3-7.7) k/uL Lymphocytes # 0.4 L (1.0-4.8) k/uL Macrocytosis Marked A Chloride 112 H (98-107) mmol/L BUN 54 H (7-17) mg/dL Glucose 178 H (74-99) mg/dL POC Glucose (mg/dL) 147 H (70-110) mg/dL Magnesium 2.7 H (1.6-2.3) mg/dL AST 73 H (14-36) U/L ALT 142 H (4-34) U/L Total Protein 4.6 L (6.3-8.2) g/dL Albumin 2.7 L (3.5-5.0) g/dL Microbiology - Last 24 Hours (Table) 08/26/21 07:38 Blood Culture Gram Stain - Preliminary Blood 08/26/21 07:38 Blood Culture - Final Blood
--- NOTE | 2021-08-27 13:24 | P.PN ---
Subjective Patient is seen for follow-up for acute kidney injury. Renal function has improved. Serum creatinine at 1.0 mg/dL No significant complaints today. Objective - Vital Signs Vital signs: Vital Signs Temp 97.7 F 08/27/21 07:45 Pulse 89 08/27/21 07:45 Resp 16 08/27/21 07:45 BP 115/81 08/27/21 07:45 Pulse Ox 100 08/27/21 07:45 FiO2 30 08/20/21 16:05 Intake & Output 08/26/21 08/27/21 08/27/21 18:59 06:59 18:59 Output Total 275 Balance -275 Weight 64.5 kg 64.5 kg Output: Urine 275 Other: Voiding Method Indwelling Catheter Indwelling Catheter Indwelling Catheter # Bowel Movements 1 - Exam Awake, comfortable, not in any acute distress Examination of the heart S1 and S2 Examination lungs bilateral breath sounds are heard Abdomen is soft nontender Examination off lower extremity shows no edema. - Labs CBC & Chem 7: 08/27/21 10:13 08/27/21 10:13 Labs: Abnormal Lab Results - Last 24 Hours (Table) 08/26/21 08/26/21 08/27/21 Range/Units 16:20 21:41 06:34 WBC (3.8-10.6) k/uL RBC (3.80-5.40) m/uL Hgb (11.4-16.0) gm/dL Hct (34.0-46.0) % MCV (80.0-100.0) fL RDW (11.5-15.5) % Neutrophils # (1.3-7.7) k/uL Lymphocytes # (1.0-4.8) k/uL Macrocytosis Chloride (98-107) mmol/L BUN (7-17) mg/dL Glucose (74-99) mg/dL POC Glucose (mg/dL) 176 H 142 H 133 H (70-110) mg/dL Magnesium (1.6-2.3) mg/dL AST (14-36) U/L ALT (4-34) U/L Total Protein (6.3-8.2) g/dL Albumin (3.5-5.0) g/dL 08/27/21 08/27/21 08/27/21 Range/Units 10:13 10:13 12:05 WBC 22.4 H (3.8-10.6) k/uL RBC 3.03 L (3.80-5.40) m/uL Hgb 10.1 L (11.4-16.0) gm/dL Hct 32.5 L (34.0-46.0) % MCV 107.2 H (80.0-100.0) fL RDW 16.3 H (11.5-15.5) % Neutrophils # 21.3 H (1.3-7.7) k/uL Lymphocytes # 0.4 L (1.0-4.8) k/uL Macrocytosis Marked A Chloride 112 H (98-107) mmol/L BUN 54 H (7-17) mg/dL Glucose 178 H (74-99) mg/dL POC Glucose (mg/dL) 147 H (70-110) mg/dL Magnesium 2.7 H (1.6-2.3) mg/dL AST 73 H (14-36) U/L ALT 142 H (4-34) U/L Total Protein 4.6 L (6.3-8.2) g/dL Albumin 2.7 L (3.5-5.0) g/dL Microbiology - Last 24 Hours (Table) 08/26/21 07:38 Blood Culture Gram Stain - Preliminary Blood 08/26/21 07:38 Blood Culture - Final Blood Assessment and Plan Assessment: 1. Acute kidney injury secondary to hemodynamic ATN, currently improved. UA with trace protein 2. E. coli UTI maintained on antibiotics 3. A. fib with RVR, status post Cardizem drip 4. COPD exacerbation 5. Benign hypertension 6. Hypokalemia secondary to diuresis, improved Plan: Encourage increased oral intake Continue to monitor renal function and electrolytes periodically
--- NOTE | 2021-08-27 15:23 | P.PN ---
Subjective Progress Note Date: 08/27/21 Principal diagnosis: Failure to thrive Urinary tract infection Electrolyte imbalance with hypokalemia and hyponatremia Elevated troponin likely related to demand ischemia Developing progressive weakness Mild hydrocephalus Low back pain due to herniated thoracic vertebrae disc and DJD of spine Hypertension hypertensive cardiovascular disease 08/27/2021, patient seen eval reexamined during the rounds labs reviewed medications reviewed care plan discussed, shortness of breath on activity and exertion however currently afebrile denies any chest pain or shortness of breath patient is in sinus rhythm with intermittent PACs, patient is on metoprolol 100 mg twice a day appears to be tolerating well, blood cultures are positive for enterococcus vancomycin has been admitted, off of Zosyn now ID following 08/26/2021, patient seen eval examined during the rounds labs reviewed medications reviewed care plan discussed, respiratory status remains stable remains on 2 L oxygen more awake and alert now compared to yesterday steroid dose has been reduced, patient tolerating IV Zosyn fairly well renal functions stable A. fib RVR have converted to sinus rhythm patient is off of Cardizem drip 08/25/2021, patient seen eval examined during the rounds labs reviewed medications reviewed care plan discussed with the staff as well as family members present at bedside, patient remains mildly short of breath denies any chest pain however remains confused patient continued to have intermittent episodes of A. fib with RVR back on Cardizem now on 10 mg an hour in metoprolol dose has been escalated as well EP service is following the want to hold the amiodarone drip for now until maximal dose of beta gabriel are being given, patient denies any sputum production, remains on IV Zosyn and IV steroids, we will start tapering the steroids hopefully IV antibiotics can be switched to oral in next 24-48 hours white cell count continue to go up suspect likely related to steroids 08/24/2021, patient seen eval examined during the rounds labs reviewed medications reviewed care plan discussed, respiratory status remains unchanged however seems to be associated with episodes of A. fib with RVR during that time she goes into freezing shortness of breath, similar episode happened overnight has been placed on Cardizem currently on 5 mg/h rate is controlled she somewhat anxious denies any chest pain primary service is present at bedside, due to recurrent episode question were raised about amiodarone noted that patient is being followed by EP service, we will discuss with the per service about consideration of amiodarone given the current status of atrial fibrillation and progressive respiratory deterioration, patient however remains afebrile hemodynamic status stable 100% oxygen on 2 L nasal cannula. Chest x-ray performed on 08/23/2021 reviewed essentially no significant changes been seen no focal infiltrate identified patient has some subsegmental linear atelectasis in the right lower lobe, white cell count is 20,700 with hemoglobin and hematocrit 10/35, BUN/creatinine up to 36/1.31 now down to 42/1.1. Patient remains on as needed bronchodilators with albuterol and oral direct anticoagulant, has been on Cardizem drip 5 mg/h Solu-Medrol is up to 60 mg every 6, patient remains on IV Zosyn 3.375 g 08/16/2021, patient seen eval examined during the rounds labs reviewed medications reviewed, respiratory status remains stable patient doing well remains on room air denies any chest pain, saturation is 98% on room air, patient remains afebrile, patient remains on bronchodilator IV Rocephin for gram-negative urinary tract infection 08/15/2021, patient had relatively less pain in the back, breathing is stable, denies any chest pain, patient has been tolerating IV Rocephin well 08/14/2021, patient seen eval reexamined during the rounds labs reviewed medica tions reviewed as still have intermittent back pain, respirator status stable denies any chest pain or shortness of breath off of room air now. She remains on bronchodilator and direct oral anticoagulant along with Symbicort tolerating well remains on broad-spectrum IV antibiotics, culture positive for E. coli sensitive to Rocephin 08/13/2021, patient seen and evaluated examined during the round labs reviewed medications reviewed, mild dyspnea on exertion is present denies any chest pain, room air oxygen saturation is 95% to 99%, patient remains afebrile and hemodynamically stable, urine cultures are growing gram-negative rods, patient remains on pain medicines and the anxiety medicine has been on direct oral anticoagulant along with Rocephin already doing well has been afebrile WBC count is down 75-year-old female with prior medical history of the hypertension hypertensive cardiovascular disease has been hospitalized however discharged home brought back due to progressive weakness and inability to eat and swallow also had some component of slurred speech patient has significant history of asthma and asthmatic bronchitis with chronic low back pain, patient was having failure to thrive at home, urine cultures have been sent and results are pending, currently patient is on bronchodilator along with direct oral anticoagulant broad-spectrum antibiotics IV steroids along with her home medicine she is been gently rehydrated with normal saline as well, her white cell count arrival was 15,300 came down to 9000 and hemoglobin and hematocrit remained stable so as the platelet count, PT/INR and quinine so within normal limit potassium was low of only 3 improved after potassium replacement sodium was 134 improved to 139, BUN/creatinine 18/1.15 improved to 17/0.93. Troponin was elevated 0.048 up from 0.042, admitted chest x-ray no active process identified computed tomography scan of the brain mild hydrocephalus with chronic changes Objective - Vital Signs Vital signs: Vital Signs Temp 97.6 F 08/27/21 12:00 Pulse 61 08/27/21 12:00 Resp 16 08/27/21 12:00 BP 110/79 08/27/21 12:00 Pulse Ox 95 08/27/21 12:00 FiO2 30 08/20/21 16:05 Intake & Output 08/26/21 08/27/21 08/27/21 18:59 06:59 18:59 Intake Total 100 Output Total 275 Balance -275 100 Weight 64.5 kg 64.5 kg Intake: Oral 100 Output: Urine 275 Other: Voiding Method Indwelling Catheter Indwelling Catheter Indwelling Catheter # Bowel Movements 1 - Exam - Constitutional General appearance: average body habitus, mild distress, family present at bedside somewhat anxious - EENT Eyes: PERRLA Ears: bilateral: normal - Neck Neck: normal ROM Carotids: bilateral: upstroke normal Thyroid: bilateral: normal size - Respiratory Respiratory: bilateral: CTA - Cardiovascular Rhythm: regular Heart sounds: normal: S1, S2 - Neurologic Neurologic: CNII-XII intact - Musculoskeletal Musculoskeletal: generalized weakness, strength equal bilaterally - Psychiatric Psychiatric: appropriate affect, intact judgment & insight - Labs CBC & Chem 7: 08/27/21 10:13 08/27/21 10:13 Labs: Abnormal Lab Results - Last 24 Hours (Table) 08/26/21 08/26/21 08/27/21 Range/Units 16:20 21:41 06:34 WBC (3.8-10.6) k/uL RBC (3.80-5.40) m/uL Hgb (11.4-16.0) gm/dL Hct (34.0-46.0) % MCV (80.0-100.0) fL RDW (11.5-15.5) % Neutrophils # (1.3-7.7) k/uL Lymphocytes # (1.0-4.8) k/uL Macrocytosis Chloride (98-107) mmol/L BUN (7-17) mg/dL Glucose (74-99) mg/dL POC Glucose (mg/dL) 176 H 142 H 133 H (70-110) mg/dL Magnesium (1.6-2.3) mg/dL AST (14-36) U/L ALT (4-34) U/L Total Protein (6.3-8.2) g/dL Albumin (3.5-5.0) g/dL 08/27/21 08/27/21 08/27/21 Range/Units 10:13 10:13 12:05 WBC 22.4 H (3.8-10.6) k/uL RBC 3.03 L (3.80-5.40) m/uL Hgb 10.1 L (11.4-16.0) gm/dL Hct 32.5 L (34.0-46.0) % MCV 107.2 H (80.0-100.0) fL RDW 16.3 H (11.5-15.5) % Neutrophils # 21.3 H (1.3-7.7) k/uL Lymphocytes # 0.4 L (1.0-4.8) k/uL Macrocytosis Marked A Chloride 112 H (98-107) mmol/L BUN 54 H (7-17) mg/dL Glucose 178 H (74-99) mg/dL POC Glucose (mg/dL) 147 H (70-110) mg/dL Magnesium 2.7 H (1.6-2.3) mg/dL AST 73 H (14-36) U/L ALT 142 H (4-34) U/L Total Protein 4.6 L (6.3-8.2) g/dL Albumin 2.7 L (3.5-5.0) g/dL Microbiology - Last 24 Hours (Table) 08/26/21 07:38 Blood Culture Gram Stain - Preliminary Blood 08/26/21 07:38 Blood Culture - Final Blood Assessment and Plan Assessment: Enterococcus bacteremia Acute on chronic diastolic heart failure Atrial fibrillation with rapid ventricular response Bilateral wheezing appeared to be related to heart failure due to A. fib mixed bacterial pneumonia, cannot be excluded Chronic persistent asthma by history Leukocytosis likely related to IV steroids Acute kidney injury Failure to thrive Urinary tract infection due to gram-negative vini, E. coli sensitive to Rocephin Electrolyte imbalance with hypokalemia and hyponatremia Elevated troponin likely related to demand ischemia Developing progressive weakness Normal pressure hydrocephalus, neurology following, Low back pain due to herniated thoracic vertebrae disc and DJD of spine Hypertension hypertensive cardiovascular disease Plan: Continue supplemental oxygen 2 L nasal cannula On IV vancomycin for enterococcus off of Zosyn Continue IV steroids, continue for now 40 mg IV every 12 Optimize treatment for heart failure and A. fib with RVR with consideration of amiodarone, if he relapses Continue replace electrolytes including potassium PT OT evaluation Elevated troponin likely related to demand ischemia Continue gentle hydration Monitor renal functions closely, FG following Deep breathing sense incentive spirometry Continue home medications Further plan of care as per clinical response of the patient Time with Patient: Greater than 30
--- NOTE | 2021-08-27 15:23 | P.PN ---
Subjective Progress Note Date: 08/27/21 Principal diagnosis: Leukocytosis and bacteremia Patient is a 75-year-old -[place] female initially presented to hospital more than 2 weeks ago on 08/11/2021 for increasing weakness slurred speech with concern for possible CVA patient has been on steroids and Zosyn per pulmonary patient was noticed to have elevated white count that prompted this infectious disease consultation. On today's evaluation that is 08/27/2021, the patient is afebrile patient is breathing comfortably currently on intermittent nasal cannula no chest pain or shortness with occasional cough no abdominal pain did have some diarrhea per the nursing staff Objective - Vital Signs Vital signs: Vital Signs Temp 97.6 F 08/27/21 12:00 Pulse 61 08/27/21 12:00 Resp 16 08/27/21 12:00 BP 110/79 08/27/21 12:00 Pulse Ox 95 08/27/21 12:00 FiO2 30 08/20/21 16:05 Intake & Output 08/26/21 08/27/21 08/27/21 18:59 06:59 18:59 Intake Total 100 Output Total 275 Balance -275 100 Weight 64.5 kg 64.5 kg Intake: Oral 100 Output: Urine 275 Other: Voiding Method Indwelling Catheter Indwelling Catheter Indwelling Catheter # Bowel Movements 1 - Exam GENERAL DESCRIPTION: Elderly female lying in bed, no distress. No tachypnea or accessory muscle of respiration use. LUNGS: Unlabored breathing. Decreased breath sound the base HEART: S1, S2, regular rate and rhythm. ABDOMEN: Soft, no tenderness , guarding or rigidity, no organomegaly EXTREMITIES: No edema of feet. - Labs CBC & Chem 7: 08/27/21 10:13 08/27/21 10:13 Labs: Abnormal Lab Results - Last 24 Hours (Table) 08/26/21 08/26/21 08/27/21 Range/Units 16:20 21:41 06:34 WBC (3.8-10.6) k/uL RBC (3.80-5.40) m/uL Hgb (11.4-16.0) gm/dL Hct (34.0-46.0) % MCV (80.0-100.0) fL RDW (11.5-15.5) % Neutrophils # (1.3-7.7) k/uL Lymphocytes # (1.0-4.8) k/uL Macrocytosis Chloride (98-107) mmol/L BUN (7-17) mg/dL Glucose (74-99) mg/dL POC Glucose (mg/dL) 176 H 142 H 133 H (70-110) mg/dL Magnesium (1.6-2.3) mg/dL AST (14-36) U/L ALT (4-34) U/L Total Protein (6.3-8.2) g/dL Albumin (3.5-5.0) g/dL 08/27/21 08/27/21 08/27/21 Range/Units 10:13 10:13 12:05 WBC 22.4 H (3.8-10.6) k/uL RBC 3.03 L (3.80-5.40) m/uL Hgb 10.1 L (11.4-16.0) gm/dL Hct 32.5 L (34.0-46.0) % MCV 107.2 H (80.0-100.0) fL RDW 16.3 H (11.5-15.5) % Neutrophils # 21.3 H (1.3-7.7) k/uL Lymphocytes # 0.4 L (1.0-4.8) k/uL Macrocytosis Marked A Chloride 112 H (98-107) mmol/L BUN 54 H (7-17) mg/dL Glucose 178 H (74-99) mg/dL POC Glucose (mg/dL) 147 H (70-110) mg/dL Magnesium 2.7 H (1.6-2.3) mg/dL AST 73 H (14-36) U/L ALT 142 H (4-34) U/L Total Protein 4.6 L (6.3-8.2) g/dL Albumin 2.7 L (3.5-5.0) g/dL Microbiology - Last 24 Hours (Table) 08/26/21 07:38 Blood Culture Gram Stain - Preliminary Blood 08/26/21 07:38 Blood Culture - Final Blood Assessment and Plan (1) Leukocytosis Current Visit: Yes Status: Acute Code(s): D72.829 - ELEVATED WHITE BLOOD CELL COUNT, UNSPECIFIED SNOMED Code(s): 299128887 (2) Bacteremia Current Visit: Yes Status: Acute Code(s): R78.81 - BACTEREMIA SNOMED Code(s): 5038414 Plan: 1patient with a leukocytosis in this patient has been in the hospital for more than 2 weeks now with initial admission to the hospital with weakness patient did not have any fever last chest x-ray 3 days ago did not show any evidence of pneumonia urine has been negative abdominal soft clinical examination no diarrhea reported by the nursing staff elevated white and more likely related to steroids plus minus oropharyngeal candidiasis,Patient white count is trending down with addition of Diflucan which was added yesterday will be continued. 2patient now with evidence of Enterococcus bacteremia which usually of gut or urinary source however the UA on 08/26/2020 was negative, blood cultures will be repeated document clearance of bacteremia vancomycin has been added Time with Patient: Less than 30
[2021-08-27] MEDS: ALPRAZolam 0.25 MG TAB PO PRN (15:34)
[2021-08-27] MEDS: VANCOMYCIN 1,250 MG in SODIUM CHLORIDE 0.9% 250 ML IVPB SCH (15:56)
[2021-08-27 16:51] LABS: Glucose,Whole Blood 140 mg/dL (70-110)
[2021-08-27 19:33] LABS: Glucose,Whole Blood 146 mg/dL (70-110)
[2021-08-27] MEDS: ATORVASTATIN 20 MG TAB PO SCH (21:44)
[2021-08-27] MEDS: MONTELUKAST 10 MG TAB PO SCH (21:44)
[2021-08-28 06:34] LABS: Glucose,Whole Blood 112 mg/dL (70-110)
[2021-08-28] MEDS: PANTOPRAZOLE 40 MG TABLET PO SCH (06:58)
[2021-08-28] MEDS: INSULIN ASPART (NovoLOG) 100 UNIT/ML VIAL SQ SCH ×4 (06:58→20:44)
[2021-08-28] MEDS: SYMBICORT 160-4.5 MCG INHALER INHALATION SCH ×2 (08:32→20:26)
[2021-08-28] MEDS: methylPREDNISolone SOD SUCCI 40 MG/ML 1 ML VIAL IV SCH ×2 (09:44→17:19)
[2021-08-28] MEDS: APIXABAN 5 MG TAB PO SCH ×2 (09:44→20:45)
[2021-08-28] MEDS: METOPROLOL TARTRATE 50 MG TAB PO SCH ×2 (09:44→20:45)
[2021-08-28] MEDS: FLUCONAZOLE 100 MG TAB PO SCH (09:44)
[2021-08-28] MEDS: KETOTIFEN 0.025% OPHTH DROPS 5 ML BTL BOTH EYES SCH ×2 (09:45→21:16)
[2021-08-28] MEDS: MEGESTROL 400 MG/10 ML CUP PO SCH (09:45)
[2021-08-28] MEDS: amLODIPine 5 MG TAB PO SCH (09:48)
--- NOTE | 2021-08-28 11:56 | P.PN ---
Subjective Progress Note Date: 08/28/21 HISTORY OF PRESENT ILLNESS: This is a pleasant 75-year-old with past medical history significant for advanced dementia, postural hypotension, chronic kidney disease, hypertension, p aroxysmal atrial fibrillation on Eliquis, Bronchitis. She used to follow in the office with Dr. Smart. We are being consulted for elevated troponin. Patient is a poor historian unable to state why she came to the hospital. She has no complaints at bedside. Denies any pain, chest pain, shortness of breath. DIAGNOSTICS EKG on admission revealed sinus rhythm HR 900s, T wave inversions inferior anterior and lateral leads, similar to prior EKG Most recent echo 06/2021 revealed EF 5560%, moderately increase posterior wall thickness Laboratory data reviewed-troponin 0.055, 0.42, 0.48. on admission sodium 134, potassium 3.0, BUN 18, serum creatinine 1.1, WBC 15.3, hemoglobin 10.5, platel ets 266 Patient was admitted to the hospital in November 2020 with complaints of chest pain and shortness of breath. She was evaluated by nuclear Stress test and echocardiogram. Nuclear stress test showed mild ischemia. She was evaluated Dr. Cotton, nuclear stress test was reviewed by cardiology and medical therapy was advised. 08/26/2021 Cardiology was asked to evaluate patient secondary to atrial fibrillation with RVR. Apparently yesterday the patient went into A. fib with RVR. She was started on IV Cardizem which has since been discontinued. At the time of my examination the patient remains in atrial fibrillation with controlled ventricular rates in the 70s. Patient denies any chest pain or pressure. She denies any shortness of breath. Blood pressure stable at 128/78. 08/27/2021 Patient examined this morning at the bedside. Patient denies chest pain or pre ssure. She denies shortness of breath. Telemetry reveals sinus mechanism with PACs. Heart rate is in the 80s. 08/28/2021 Patient examined this morning at the bedside. Patient denies chest pain or pressure. She denies shortness of breath. Telemetry reveals atrial fibrillation with controlled ventricular rates. PHYSICAL EXAM: VITAL SIGNS: Reviewed. GENERAL: Well-developed in no acute distress. NECK: Supple. No JVD or thyromegaly LUNGS: Respirations even and unlabored. Lungs essentially clear to auscultation bilaterally. HEART: Irregular rate and rhythm. S1 and S2 heard. EXTREMITIES: Normal range of motion. No clubbing or cyanosis. Peripheral pulses intact. No lower extremity edema ASSESSMENT: Acute kidney injury Urinary tract infection Leukocytosis Elevated troponin, likely related to acute kidney injury Dementia Altered mental status History asthma/COPD Paroxysmal atrial fibrillation on Eliquis History of Hypertension History of postural hypotension Chronic kidney disease PLAN: Continue current cardiac medications Continue metoprolol tartrate 100 mg twice a day Continue telemetry monitoring Further recommendations pending patient's course Nurse practitioner note has been reviewed by physician. Signing provider agrees with the documented findings, assessment, and plan of care. Objective - Vital Signs Vital signs: Vital Signs Temp 98.0 F 08/28/21 08:00 Pulse 88 08/28/21 08:00 Resp 19 08/28/21 08:00 BP 128/85 08/28/21 08:00 Pulse Ox 98 08/28/21 08:00 FiO2 30 08/20/21 16:05 Intake & Output 08/27/21 08/28/21 08/28/21 18:59 06:59 18:59 Intake Total 100 Balance 100 Weight 64.5 kg Intake: Oral 100 Other: Voiding Method Indwelling Catheter Indwelling Catheter Indwelling Catheter - Labs CBC & Chem 7: 08/27/21 10:13 08/27/21 10:13 Labs: Abnormal Lab Results - Last 24 Hours (Table) 08/27/21 08/27/21 08/27/21 Range/Units 12:05 16:49 19:31 POC Glucose (mg/dL) 147 H 140 H 146 H (70-110) mg/dL 08/28/21 Range/Units 06:31 POC Glucose (mg/dL) 112 H (70-110) mg/dL Microbiology - Last 24 Hours (Table) 08/26/21 07:38 Blood Culture Gram Stain - Preliminary Blood Blood Culture - Preliminary Enterococcus faecium
[2021-08-28 11:57] LABS: Glucose,Whole Blood 136 mg/dL (70-110)
[2021-08-28] MEDS ORDERED: IOPAMIDOL CONTRAST (ORAL USE) VIAL PO PRN (13:26)
[2021-08-28] MEDS: VANCOMYCIN 1,250 MG in SODIUM CHLORIDE 0.9% 250 ML IVPB SCH (13:42)
[2021-08-28] MEDS: ALPRAZolam 0.25 MG TAB PO PRN (15:26)
--- NOTE | 2021-08-28 15:43 | P.PN ---
Subjective Progress Note Date: 08/28/21 Principal diagnosis: Failure to thrive Urinary tract infection Electrolyte imbalance with hypokalemia and hyponatremia Elevated troponin likely related to demand ischemia Developing progressive weakness Mild hydrocephalus Low back pain due to herniated thoracic vertebrae disc and DJD of spine Hypertension hypertensive cardiovascular disease 08/28/2021, patient seen eval examined during the rounds labs reviewed medications reviewed care plan discussed, respirations stable, remains on supplemental oxygen off and on, denies any chest pain, intermittent PACs are seen with AHomer freeman, EP service has been following they're escalated the dose of metoprolol, ID service is also following, white cell count elevated but trending down 08/27/2021, patient seen eval reexamined during the rounds labs reviewed medications reviewed care plan discussed, shortness of breath on activity and exertion however currently afebrile denies any chest pain or shortness of breath patient is in sinus rhythm with intermittent PACs, patient is on metoprolol 100 mg twice a day appears to be tolerating well, blood cultures are positive for enterococcus vancomycin has been admitted, off of Zosyn now ID following 08/26/2021, patient seen eval examined during the rounds labs reviewed medicati ons reviewed care plan discussed, respiratory status remains stable remains on 2 L oxygen more awake and alert now compared to yesterday steroid dose has been reduced, patient tolerating IV Zosyn fairly well renal functions stable A. fib RVR have converted to sinus rhythm patient is off of Cardizem drip 08/25/2021, patient seen eval examined during the rounds labs reviewed medications reviewed care plan discussed with the staff as well as family members present at bedside, patient remains mildly short of breath denies any chest pain however remains confused patient continued to have intermittent episodes of A. fib with RVR back on Cardizem now on 10 mg an hour in metoprolol dose has been escalated as well EP service is following the want to hold the amiodarone drip for now until maximal dose of beta gabriel are being given, patient denies any sputum production, remains on IV Zosyn and IV steroids, we will start tapering the steroids hopefully IV antibiotics can be switched to oral in next 24-48 hours white cell count continue to go up suspect likely related to steroids 08/24/2021, patient seen eval examined during the rounds labs reviewed medications reviewed care plan discussed, respiratory status remains unchanged however seems to be associated with episodes of A. fib with RVR during that time she goes into freezing shortness of breath, similar episode happened overnight has been placed on Cardizem currently on 5 mg/h rate is controlled she somewhat anxious denies any chest pain primary service is present at bedside, due to recurrent episode question were raised about amiodarone noted that patient is being followed by EP service, we will discuss with the per service about consideration of amiodarone given the current status of atrial fibrillation and progressive respiratory deterioration, patient however remains afebrile hemodynamic status stable 100% oxygen on 2 L nasal cannula. Chest x-ray performed on 08/23/2021 reviewed essentially no significant changes been seen no focal infiltrate identified patient has some subsegmental linear atelectasis in the right lower lobe, white cell count is 20,700 with hemoglobin and hematocrit 10/35, BUN/creatinine up to 36/1.31 now down to 42/1.1. Patient remains on as needed bronchodilators with albuterol and oral direct anticoagulant, has been on Cardizem drip 5 mg/h Solu-Medrol is up to 60 mg every 6, patient remains on IV Zosyn 3.375 g 08/16/2021, patient seen eval examined during the rounds labs reviewed medi cations reviewed, respiratory status remains stable patient doing well remains on room air denies any chest pain, saturation is 98% on room air, patient remains afebrile, patient remains on bronchodilator IV Rocephin for gram- negative urinary tract infection 08/15/2021, patient had relatively less pain in the back, breathing is stable, denies any chest pain, patient has been tolerating IV Rocephin well 08/14/2021, patient seen eval reexamined during the rounds labs reviewed medications reviewed as still have intermittent back pain, respirator status stable denies any chest pain or shortness of breath off of room air now. She remains on bronchodilator and direct oral anticoagulant along with Symbicort tolerating well remains on broad-spectrum IV antibiotics, culture positive for E. coli sensitive to Rocephin 08/13/2021, patient seen and evaluated examined during the round labs reviewed medications reviewed, mild dyspnea on exertion is present denies any chest pain, room air oxygen saturation is 95% to 99%, patient remains afebrile and hemodynamically stable, urine cultures are growing gram-negative rods, patient remains on pain medicines and the anxiety medicine has been on direct oral anticoagulant along with Rocephin already doing well has been afebrile WBC count is down 75-year-old female with prior medical history of the hypertension hypertensive cardiovascular disease has been hospitalized however discharged home brought back due to progressive weakness and inability to eat and swallow also had some component of slurred speech patient has significant history of asthma and asthmatic bronchitis with chronic low back pain, patient was having failure to thrive at home, urine cultures have been sent and results are pending, currently patient is on bronchodilator along with direct oral anticoagulant broad-spectrum antibiotics IV steroids along with her home medicine she is been gently rehydrated with normal saline as well, her white cell count arrival was 15,300 came down to 9000 and hemoglobin and hematocrit remained stable so as the platelet count, PT/INR and quinine so within normal limit potassium was low of only 3 improved after potassium replacement sodium was 134 improved to 139, BUN/creatinine 18/1.15 improved to 17/0.93. Troponin was elevated 0.048 up from 0.042, admitted chest x-ray no active process identified computed tomography scan of the brain mild hydrocephalus with chronic changes Objective - Vital Signs Vital signs: Vital Signs Temp 97.8 F 08/28/21 15:31 Pulse 79 08/28/21 15:31 Resp 20 08/28/21 15:31 BP 141/95 08/28/21 15:31 Pulse Ox 98 08/28/21 15:31 FiO2 30 08/20/21 16:05 Intake & Output 08/27/21 08/28/21 08/28/21 18:59 06:59 18:59 Intake Total 100 Balance 100 Weight 64.5 kg Intake: Oral 100 Other: Voiding Method Indwelling Catheter Indwelling Catheter Indwelling Catheter - Exam - Constitutional General appearance: average body habitus, mild distress, family present at bedside somewhat anxious - EENT Eyes: PERRLA Ears: bilateral: normal - Neck Neck: normal ROM Carotids: bilateral: upstroke normal Thyroid: bilateral: normal size - Respiratory Respiratory: bilateral: CTA - Cardiovascular Rhythm: regular Heart sounds: normal: S1, S2 - Neurologic Neurologic: CNII-XII intact - Musculoskeletal Musculoskeletal: generalized weakness, strength equal bilaterally - Psychiatric Psychiatric: appropriate affect, intact judgment & insight - Labs CBC & Chem 7: 08/27/21 10:13 08/27/21 10:13 Labs: Abnormal Lab Results - Last 24 Hours (Table) 08/27/21 08/27/21 08/28/21 Range/Units 16:49 19:31 06:31 POC Glucose (mg/dL) 140 H 146 H 112 H (70-110) mg/dL 08/28/21 Range/Units 11:55 POC Glucose (mg/dL) 136 H (70-110) mg/dL Microbiology - Last 24 Hours (Table) 08/26/21 07:38 Blood Culture Gram Stain - Preliminary Blood Blood Culture - Preliminary Enterococcus faecium Assessment and Plan Assessment: Enterococcus bacteremia Acute on chronic diastolic heart failure Atrial fibrillation with rapid ventricular response Bilateral wheezing appeared to be related to heart failure due to A. fib mixed bacterial pneumonia, cannot be excluded Chronic persistent asthma by history Leukocytosis likely related to IV steroids Acute kidney injury Failure to thrive Urinary tract infection due to gram-negative vini, E. coli sensitive to Rocephin Electrolyte imbalance with hypokalemia and hyponatremia Elevated troponin likely related to demand ischemia Developing progressive weakness Normal pressure hydrocephalus, neurology following, Low back pain due to herniated thoracic vertebrae disc and DJD of spine Hypertension hypertensive cardiovascular disease Plan: Continue supplemental oxygen 2 L nasal cannula On IV vancomycin for enterococcus off of Zosyn Continue IV steroids, continue for now 40 mg IV every 12 Optimize treatment for heart failure and A. fib with RVR with consideration of amiodarone, if he relapses Continue replace electrolytes including potassium PT OT evaluation Elevated troponin likely related to demand ischemia Continue gentle hydration Monitor renal functions closely, FG following Deep breathing sense incentive spirometry Continue home medications Further plan of care as per clinical response of the patient Time with Patient: Greater than 30
--- NOTE | 2021-08-28 16:21 | CT ---
EXAMINATION TYPE: CT abdomen pelvis wo con CT DLP: 653.6 mGycm, Automated exposure control for dose reduction was used. DATE OF EXAM: 08/28/2021 4:07 PM COMPARISON: Renal ultrasound 08/26/2021 , CT thoracic lumbar spine 05/28/2021 CT abdomen pelvis most recent from . CLINICAL INDICATION:Female, 75 years old with history of bacteremia; TECHNIQUE: Standard CT of the abdomen and pelvis following the administration of oral contrast. Cor onal and sagittal reformats were performed. FINDINGS: LOWER CHEST: Right lower lobe atelectasis. Coronary artery calcifications. Eventration of the right h emidiaphragm. ABDOMEN LIVER: Unremarkable noncontrast appearance. GALLBLADDER AND BILE DUCTS: The gallbladder is surgically absent. No biliary duct dilatation. PANCREAS: Unremarkable. SPLEEN: Unremarkable. ADRENAL GLANDS: Unremarkable. KIDNEYS AND URETERS: No evidence of hydronephrosis or renal calculus. PELVIS BLADDER: Nondistended with Cardoza catheter in place. REPRODUCTIVE: Unremarkable. ABDOMEN & PELVIS STOMACH AND BOWEL: Mild gaseous distention of the stomach.Pancolonic diverticulosis without evidence for acute diverticulitis. No focal wall thickening or surrounding inflammatory changes. No pericoloni c abscess. No evidence of bowel obstruction. PERITONEUM: No evidence of pneumoperitoneum or free fluid. VASCULATURE: Moderate atherosclerotic calcifications aorta and its branches. The aorta is tortuous. MUSCULOSKELETAL: No acute osseous abnormalities. Stable compression deformities of the 11, L1, and L3 vertebral bodies. No evidence for retropulsion. There are postsurgical changes from left total hip a rthroplasty which creates streak artifact limiting evaluation. Additional postsurgical changes of lum bar fusion with bipedicular screws and rods involving L4 and L5 with disc prosthesis. LYMPH NODES: No gross evidence for lymphadenopathy. SOFT TISSUE/ABDOMINAL WALL: Unremarkable IMPRESSION: 1. No acute abdominal/pelvic process. 2. Colonic diverticulosis without evidence for acute diverticulitis.
--- NOTE | 2021-08-28 16:27 | P.PN ---
Subjective Progress Note Date: 08/28/21 Principal diagnosis: Leukocytosis and bacteremia Patient is a 75-year-old -[place] female initially presented to hospital more than 2 weeks ago on 08/11/2021 for increasing weakness slurred speech with concern for possible CVA patient has been on steroids and Zosyn per pulmonary patient was noticed to have elevated white count that prompted this infectious disease consultation. On today's evaluation that is 08/28/2021, the patient remains to be afebrile, patient is breathing comfortably currently on nasal cannula oxygen, the patient denies chest pain or shortness with occasional cough no abdominal pain Objective - Vital Signs Vital signs: Vital Signs Temp 99.5 F 08/28/21 12:00 Pulse 82 08/28/21 12:00 Resp 15 08/28/21 12:00 BP 121/74 08/28/21 12:00 Pulse Ox 100 08/28/21 12:00 FiO2 30 08/20/21 16:05 Intake & Output 08/27/21 08/28/21 08/28/21 18:59 06:59 18:59 Intake Total 100 Balance 100 Weight 64.5 kg Intake: Oral 100 Other: Voiding Method Indwelling Catheter Indwelling Catheter Indwelling Catheter - Exam GENERAL DESCRIPTION: Elderly female lying in bed, no distress. No tachypnea or accessory muscle of respiration use. LUNGS: Unlabored breathing. Decreased breath sound the base HEART: S1, S2, regular rate and rhythm. ABDOMEN: Soft, no tenderness , guarding or rigidity, no organomegaly EXTREMITIES: No edema of feet. - Labs CBC & Chem 7: 08/27/21 10:13 08/27/21 10:13 Labs: Abnormal Lab Results - Last 24 Hours (Table) 08/27/21 08/27/21 08/28/21 Range/Units 16:49 19:31 06:31 POC Glucose (mg/dL) 140 H 146 H 112 H (70-110) mg/dL 08/28/21 Range/Units 11:55 POC Glucose (mg/dL) 136 H (70-110) mg/dL Microbiology - Last 24 Hours (Table) 08/26/21 07:38 Blood Culture Gram Stain - Preliminary Blood Blood Culture - Preliminary Enterococcus faecium Assessment and Plan (1) Leukocytosis Current Visit: Yes Status: Acute Code(s): D72.829 - ELEVATED WHITE BLOOD CELL COUNT, UNSPECIFIED SNOMED Code(s): 997897883 (2) Bacteremia Current Visit: Yes Status: Acute Code(s): R78.81 - BACTEREMIA SNOMED Code(s): 1569000 Plan: 1patient with a leukocytosis in this patient has been in the hospital for more than 2 weeks now with initial admission to the hospital with weakness patient did not have any fever last chest x-ray 3 days ago did not show any evidence of pneumonia urine has been negative abdominal soft clinical examination no diarrhea reported by the nursing staff elevated white and more likely related to steroids plus minus oropharyngeal candidiasis, 2patient now with evidence of Enterococcus bacteremia which usually of gut or urinary source however the UA on 08/26/2020 was negative, blood cultures will be repeated document clearance of bacteremia due to previous CT abdominal pelvis to rule out intra-abdominal source 3-patient continued to vancomycin pharmacy to use while waiting for sensitivities along with Diflucan Time with Patient: Less than 30
[2021-08-28 16:59] LABS: Glucose,Whole Blood 188 mg/dL (70-110)
[2021-08-28 20:08] LABS: Glucose,Whole Blood 202 mg/dL (70-110)
[2021-08-28] MEDS: ATORVASTATIN 20 MG TAB PO SCH (20:45)
[2021-08-28] MEDS: MONTELUKAST 10 MG TAB PO SCH (20:45)
[2021-08-28] MEDS: ACETAMINOPHEN TAB 325 MG TAB PO PRN (20:45)
[2021-08-29] MEDS: methylPREDNISolone SOD SUCCI 40 MG/ML 1 ML VIAL IV SCH ×4 (01:13→23:02)
[2021-08-29 06:17] LABS: Glucose,Whole Blood 99 mg/dL (70-110)
[2021-08-29] MEDS: INSULIN ASPART (NovoLOG) 100 UNIT/ML VIAL SQ SCH ×4 (06:18→20:48)
[2021-08-29] MEDS: PANTOPRAZOLE 40 MG TABLET PO SCH (06:19)
[2021-08-29] MEDS: SYMBICORT 160-4.5 MCG INHALER INHALATION SCH ×2 (08:14→17:37)
[2021-08-29 08:29] LABS: Anisocytosis Slight; Basophils % (A) 0 %; Eosinophils % (A) 0 %; HCT 33.4 % (34.0-46.0); HGB 10.3 gm/dL (11.4-16.0); Hypochromasia Moderate; Lymphocytes # (A) 0.3 k/uL (1.0-4.8); Lymphocytes % (A) 2 %; MCH 33.1 pg (25.0-35.0); MCHC 30.9 g/dL (31.0-37.0); MCV 107.3 fL (80.0-100.0); Macrocytosis Marked; Mean Platelet Volume 11.5; Monocytes # (A) 0.5 k/uL (0-1.0); Monocytes % (A) 2 %; Neutrophils # (A) 20.5 k/uL (1.3-7.7); Neutrophils % (A) 96 %; Platelet Count 139 k/uL (150-450); RBC 3.11 m/uL (3.80-5.40); RDW 16.9 % (11.5-15.5); WBC 21.4 k/uL (3.8-10.6)
[2021-08-29 08:52] LABS: ALT 173 U/L (4-34); African American GFR (CKD) >90 (>60 ml/min/1.73 sqM); Albumin 2.6 g/dL (3.5-5.0); Anion Gap 3 mmol/L; Blood Urea Nitrogen 47 mg/dL (7-17); Calcium 8.8 mg/dL (8.4-10.2); Carbon Dioxide 24 mmol/L (22-30); Chloride 113 mmol/L (98-107); Glucose 98 mg/dL (74-99); Non-African American GFR(CKD) 86 (>60 ml/min/1.73 sqM); Sodium 140 mmol/L (137-145); Total Bilirubin 1.1 mg/dL (0.2-1.3); Total Protein 4.6 g/dL (6.3-8.2)
[2021-08-29 08:56] LABS: AST 64 U/L (14-36); Alkaline Phosphatase 54 U/L (38-126); Potassium 5.7 mmol/L (3.5-5.1)
[2021-08-29] MEDS: APIXABAN 5 MG TAB PO SCH ×2 (09:10→20:46)
[2021-08-29] MEDS: METOPROLOL TARTRATE 50 MG TAB PO SCH ×2 (09:10→20:47)
[2021-08-29] MEDS: KETOTIFEN 0.025% OPHTH DROPS 5 ML BTL BOTH EYES SCH ×2 (09:11→20:47)
[2021-08-29] MEDS: amLODIPine 5 MG TAB PO SCH (09:11)
[2021-08-29] MEDS: MEGESTROL 400 MG/10 ML CUP PO SCH (09:11)
[2021-08-29] MEDS: FLUCONAZOLE 100 MG TAB PO SCH (09:11)
[2021-08-29 10:34] LABS: Poikilocytosis (M) Present; Polychromasia Present
[2021-08-29 11:53] LABS: Glucose,Whole Blood 139 mg/dL (70-110)
[2021-08-29] MEDS: VANCOMYCIN 1,250 MG in SODIUM CHLORIDE 0.9% 250 ML IVPB SCH ×2 (12:36→23:02)
[2021-08-29 16:44] LABS: Glucose,Whole Blood 156 mg/dL (70-110)
--- NOTE | 2021-08-29 17:25 | P.PN ---
Subjective Progress Note Date: 08/29/21 Principal diagnosis: Leukocytosis and bacteremia Patient is a 75-year-old -[place]onegas[place] female initially presented to hospital on 08/11/2021 for increasing weakness slurred speech with concern for possible CVA patient has been on steroids and Zosyn per pulmonary patient was noticed to have elevated white count that prompted this infectious disease consultation. On today's evaluation that is 08/29/2021, the patient continues to be afebrile, patient is breathing comfortably on nasal cannula oxygen, the patient denies chest pain or shortness of breath and no significant cough or sputum production, the patient denies abdominal pain and no diarrhea reported Objective - Vital Signs Vital signs: Vital Signs Temp 97.5 F L 08/29/21 16:55 Pulse 81 08/29/21 16:55 Resp 13 08/29/21 16:55 BP 133/91 08/29/21 16:55 Pulse Ox 97 08/29/21 16:55 FiO2 30 08/20/21 16:05 Intake & Output 08/28/21 08/29/21 08/29/21 18:59 06:59 18:59 Intake Total 118 Output Total 540 Balance -422 Intake: Oral 118 Output: Urine 540 Other: Voiding Method Indwelling Catheter Indwelling Catheter Indwelling Catheter # Bowel Movements 1 - Exam GENERAL DESCRIPTION: Elderly female lying in bed, no distress. No tachypnea or accessory muscle of respiration use. LUNGS: Unlabored breathing. Decreased breath sound the base HEART: S1, S2, regular rate and rhythm. ABDOMEN: Soft, no tenderness , guarding or rigidity, no organomegaly EXTREMITIES: No edema of feet. - Labs CBC & Chem 7: 08/29/21 07:09 08/29/21 07:09 Labs: Abnormal Lab Results - Last 24 Hours (Table) 08/28/21 08/29/21 08/29/21 Range/Units 20:07 07:09 07:09 WBC 21.4 H (3.8-10.6) k/uL RBC 3.11 L (3.80-5.40) m/uL Hgb 10.3 L (11.4-16.0) gm/dL Hct 33.4 L (34.0-46.0) % MCV 107.3 H (80.0-100.0) fL MCHC 30.9 L (31.0-37.0) g/dL RDW 16.9 H (11.5-15.5) % Plt Count 139 L (150-450) k/uL Neutrophils # 20.5 H (1.3-7.7) k/uL Lymphocytes # 0.3 L (1.0-4.8) k/uL Macrocytosis Marked A Potassium 5.7 H (3.5-5.1) mmol/L Chloride 113 H (98-107) mmol/L BUN 47 H (7-17) mg/dL POC Glucose (mg/dL) 202 H (70-110) mg/dL AST 64 H (14-36) U/L ALT 173 H (4-34) U/L Total Protein 4.6 L (6.3-8.2) g/dL Albumin 2.6 L (3.5-5.0) g/dL 08/29/21 08/29/21 Range/Units 11:51 16:41 WBC (3.8-10.6) k/uL RBC (3.80-5.40) m/uL Hgb (11.4-16.0) gm/dL Hct (34.0-46.0) % MCV (80.0-100.0) fL MCHC (31.0-37.0) g/dL RDW (11.5-15.5) % Plt Count (150-450) k/uL Neutrophils # (1.3-7.7) k/uL Lymphocytes # (1.0-4.8) k/uL Macrocytosis Potassium (3.5-5.1) mmol/L Chloride (98-107) mmol/L BUN (7-17) mg/dL POC Glucose (mg/dL) 139 H 156 H (70-110) mg/dL AST (14-36) U/L ALT (4-34) U/L Total Protein (6.3-8.2) g/dL Albumin (3.5-5.0) g/dL Microbiology - Last 24 Hours (Table) 08/26/21 07:38 Blood Culture Gram Stain - Final Blood Blood Culture - Final Enterococcus faecium 08/27/21 14:45 Blood Culture - Preliminary Blood No Growth after 24 hours Assessment and Plan (1) Leukocytosis Current Visit: Yes Status: Acute Code(s): D72.829 - ELEVATED WHITE BLOOD CELL COUNT, UNSPECIFIED SNOMED Code(s): 198626252 (2) Bacteremia Current Visit: Yes Status: Acute Code(s): R78.81 - BACTEREMIA SNOMED Code(s): 5913656 Plan: 1patient with a leukocytosis in this patient has been in the hospital for more than 2 weeks now with initial admission to the hospital with weakness patient did not have any fever last chest x-ray 3 days ago did not show any evidence of pneumonia urine has been negative abdominal soft clinical examination no diarrhe a reported by the nursing staff elevated white and more likely related to steroids plus minus oropharyngeal candidiasis, 2patient now with evidence of Enterococcus bacteremia which usually of gut or urinary source however the UA on 08/26/2020 was negative, blood cultures repeated so far negative, CT abdominal pelvis did not show any acute abnormality 3-patient continued to vancomycin pharmacy to use while watching kidney function closely, we will check an echocardiogram Time with Patient: Less than 30
[2021-08-29] MEDS: ALBUTEROL NEBULIZED 2.5 MG/3 ML INHALATION PRN (17:37)
--- NOTE | 2021-08-29 17:51 | PN ---
PROGRESS NOTE Lisbet is a 75-year-old lady with fairly advanced dementia who is in the hospital because of atrial fibrillation. She has dementia, hypertension, renal insufficiency and paroxysmal atrial fibrillation. On exam this morning, she is comfortable at rest. Vital signs are stable. Chest exam reveals good air entry bilaterally. Heart exam reveals first and second heart sounds, systolic murmur at the apex. Abdomen is soft. Examination of extremities reveals mild edema. Peripheral pulses are palpable. Labs show a hemoglobin of 10.3, creatinine is 0.68, potassium is 5.7. ASSESSMENT: 1. Paroxysmal atrial fibrillation. 2. Elevated potassium. 3. Acute renal insufficiency. 4. Elevated troponin, probably related to kidney injury. PLAN: Continue the current dose of metoprolol. Hyperkalemia management per primary. MMODL / IJN: [id number] /
[2021-08-29] MEDS: ALPRAZolam 0.25 MG TAB PO PRN ×2 (17:56→23:03)
[2021-08-29 20:28] LABS: Glucose,Whole Blood 238 mg/dL (70-110)
[2021-08-29] MEDS: ATORVASTATIN 20 MG TAB PO SCH (20:47)
[2021-08-29] MEDS: MONTELUKAST 10 MG TAB PO SCH (20:47)
--- NOTE | 2021-08-29 23:12 | P.PN ---
Subjective Progress Note Date: 08/29/21 Principal diagnosis: Failure to thrive Urinary tract infection Electrolyte imbalance with hypokalemia and hyponatremia Elevated troponin likely related to demand ischemia Developing progressive weakness Mild hydrocephalus Low back pain due to herniated thoracic vertebrae disc and DJD of spine Hypertension hypertensive cardiovascular disease 08/29/2021, patient seen eval examined during the rounds labs reviewed medications reviewed care plan discussed, respiratory status remained stable patient currently on room air, white cell count continue to go down is 21.4 hemoglobin is stable potassium is 5.7 BUN/creatinine continue to go 47/0.68 patient underwent computed tomography scan of the abdominal and pelvis no significant pathology identified, blood cultures have been negative 08/28/2021, patient seen eval examined during the rounds labs reviewed medications reviewed care plan discussed, respirations stable, remains on supplemental oxygen off and on, denies any chest pain, intermittent PACs are seen with Leno freeman, EP service has been following they're escalated the dose of metoprolol, ID service is also following, white cell count elevated but trending down 08/27/2021, patient seen eval reexamined during the rounds labs reviewed medications reviewed care plan discussed, shortness of breath on activity and exertion however currently afebrile denies any chest pain or shortness of breath patient is in sinus rhythm with intermittent PACs, patient is on metoprolol 100 mg twice a day appears to be tolerating well, blood cultures are positive for enterococcus vancomycin has been admitted, off of Zosyn now ID following 08/26/2021, patient seen eval examined during the rounds labs reviewed medications reviewed care plan discussed, respiratory status remains stable remains on 2 L oxygen more awake and alert now compared to yesterday steroid dose has been reduced, patient tolerating IV Zosyn fairly well renal functions stable A. fib RVR have converted to sinus rhythm patient is off of Cardizem drip 08/25/2021, patient seen eval examined during the rounds labs reviewed medications reviewed care plan discussed with the staff as well as family member s present at bedside, patient remains mildly short of breath denies any chest pain however remains confused patient continued to have intermittent episodes of A. fib with RVR back on Cardizem now on 10 mg an hour in metoprolol dose has been escalated as well EP service is following the want to hold the amiodarone drip for now until maximal dose of beta gabriel are being given, patient denies any sputum production, remains on IV Zosyn and IV steroids, we will start tapering the steroids hopefully IV antibiotics can be switched to oral in next 24-48 hours white cell count continue to go up suspect likely related to steroids 08/24/2021, patient seen eval examined during the rounds labs reviewed medications reviewed care plan discussed, respiratory status remains unchanged however seems to be associated with episodes of A. fib with RVR during that time she goes into freezing shortness of breath, similar episode happened overnight has been placed on Cardizem currently on 5 mg/h rate is controlled she somewhat anxious denies any chest pain primary service is present at bedside, due to rec urrent episode question were raised about amiodarone noted that patient is being followed by EP service, we will discuss with the per service about consideration of amiodarone given the current status of atrial fibrillation and progressive respiratory deterioration, patient however remains afebrile hemodynamic status stable 100% oxygen on 2 L nasal cannula. Chest x-ray performed on 08/23/2021 reviewed essentially no significant changes been seen no focal infiltrate identified patient has some subsegmental linear atelectasis in the right lower lobe, white cell count is 20,700 with hemoglobin and hematocrit 10/35, BUN/creatinine up to 36/1.31 now down to 42/1.1. Patient remains on as needed bronchodilators with albuterol and oral direct anticoagulant, has been on Cardizem drip 5 mg/h Solu-Medrol is up to 60 mg every 6, patient remains on IV Zosyn 3.375 g 08/16/2021, patient seen eval examined during the rounds labs reviewed medications reviewed, respiratory status remains stable patient doing well remains on room air denies any chest pain, saturation is 98% on room air, patient remains afebrile, patient remains on bronchodilator IV Rocephin for gram-negative urinary tract infection 08/15/2021, patient had relatively less pain in the back, breathing is stable, denies any chest pain, patient has been tolerating IV Rocephin well 08/14/2021, patient seen eval reexamined during the rounds labs reviewed medications reviewed as still have intermittent back pain, respirator status stable denies any chest pain or shortness of breath off of room air now. She remains on bronchodilator and direct oral anticoagulant along with Symbicort tolerating well remains on broad-spectrum IV antibiotics, culture positive for E. coli sensitive to Rocephin 08/13/2021, patient seen and evaluated examined during the round labs reviewed medications reviewed, mild dyspnea on exertion is present denies any chest pain, room air oxygen saturation is 95% to 99%, patient remains afebrile and hem odynamically stable, urine cultures are growing gram-negative rods, patient remains on pain medicines and the anxiety medicine has been on direct oral anticoagulant along with Rocephin already doing well has been afebrile WBC count is down 75-year-old female with prior medical history of the hypertension hypertensive cardiovascular disease has been hospitalized however discharged home brought [facility] due to progressive weakness and inability to eat and swallow also had some component of slurred speech patient has significant history of asthma and asthmatic bronchitis with chronic low back pain, patient was having failure to thrive at home, urine cultures have been sent and results are pending, currently patient is on bronchodilator along with direct oral anticoagulant broad-spectrum antibiotics IV steroids along with her home medicine she is been gently rehydrated with normal saline as well, her white cell count arrival was 15,300 came down to 9000 and hemoglobin and hematocrit remained stable so as the platelet count, PT/INR and quinine so within normal limit potassium was low of only 3 improved after potassium replacement sodium was 134 improved to 139, BUN/creatinine 18/1.15 improved to 17/0.93. Troponin was elevated 0.048 up from 0.042, admitted chest x-ray no active process identified computed tomography scan of the brain mild hydrocephalus with chronic changes Objective - Vital Signs Vital signs: Vital Signs Temp 98.2 F 08/29/21 20:00 Pulse 95 08/29/21 20:00 Resp 18 08/29/21 20:00 BP 131/88 08/29/21 20:00 Pulse Ox 99 08/29/21 20:00 FiO2 30 08/20/21 16:05 Intake & Output 08/29/21 08/29/21 08/30/21 06:59 18:59 06:59 Intake Total 118 Output Total 540 Balance -422 Intake: Oral 118 Output: Urine 540 Other: Voiding Method Indwelling Catheter Indwelling Catheter Indwelling Catheter # Bowel Movements 1 - Exam - Constitutional General appearance: average body habitus, mild distress, family present at bedside somewhat anxious - EENT Eyes: PERRLA Ears: bilateral: normal - Neck Neck: normal ROM Carotids: bilateral: upstroke normal Thyroid: bilateral: normal size - Respiratory Respiratory: bilateral: CTA - Cardiovascular Rhythm: regular Heart sounds: normal: S1, S2 - Neurologic Neurologic: CNII-XII intact - Musculoskeletal Musculoskeletal: generalized weakness, strength equal bilaterally - Psychiatric Psychiatric: appropriate affect, intact judgment & insight - Labs CBC & Chem 7: 08/29/21 07:09 08/29/21 07:09 Labs: Abnormal Lab Results - Last 24 Hours (Table) 08/29/21 08/29/21 08/29/21 Range/Units 07:09 07:09 11:51 WBC 21.4 H (3.8-10.6) k/uL RBC 3.11 L (3.80-5.40) m/uL Hgb 10.3 L (11.4-16.0) gm/dL Hct 33.4 L (34.0-46.0) % MCV 107.3 H (80.0-100.0) fL MCHC 30.9 L (31.0-37.0) g/dL RDW 16.9 H (11.5-15.5) % Plt Count 139 L (150-450) k/uL Neutrophils # 20.5 H (1.3-7.7) k/uL Lymphocytes # 0.3 L (1.0-4.8) k/uL Macrocytosis Marked A Potassium 5.7 H (3.5-5.1) mmol/L Chloride 113 H (98-107) mmol/L BUN 47 H (7-17) mg/dL POC Glucose (mg/dL) 139 H (70-110) mg/dL AST 64 H (14-36) U/L ALT 173 H (4-34) U/L Total Protein 4.6 L (6.3-8.2) g/dL Albumin 2.6 L (3.5-5.0) g/dL 08/29/21 08/29/21 Range/Units 16:41 20:20 WBC (3.8-10.6) k/uL RBC (3.80-5.40) m/uL Hgb (11.4-16.0) gm/dL Hct (34.0-46.0) % MCV (80.0-100.0) fL MCHC (31.0-37.0) g/dL RDW (11.5-15.5) % Plt Count (150-450) k/uL Neutrophils # (1.3-7.7) k/uL Lymphocytes # (1.0-4.8) k/uL Macrocytosis Potassium (3.5-5.1) mmol/L Chloride (98-107) mmol/L BUN (7-17) mg/dL POC Glucose (mg/dL) 156 H 238 H (70-110) mg/dL AST (14-36) U/L ALT (4-34) U/L Total Protein (6.3-8.2) g/dL Albumin (3.5-5.0) g/dL Microbiology - Last 24 Hours (Table) 08/27/21 14:45 Blood Culture - Preliminary Blood No Growth after 48 hours 08/26/21 07:38 Blood Culture Gram Stain - Final Blood Blood Culture - Final Enterococcus faecium Assessment and Plan Assessment: Enterococcus bacteremia Acute on chronic diastolic heart failure Atrial fibrillation with rapid ventricular response Bilateral wheezing appeared to be related to heart failure due to A. fib mixed bacterial pneumonia, cannot be excluded Chronic persistent asthma by history Leukocytosis likely related to IV steroids Acute kidney injury Failure to thrive Urinary tract infection due to gram-negative vini, E. coli sensitive to Rocephin Electrolyte imbalance with hypokalemia and hyponatremia Elevated troponin likely related to demand ischemia Developing progressive weakness Normal pressure hydrocephalus, neurology following, Low back pain due to herniated thoracic vertebrae disc and DJD of spine Hypertension hypertensive cardiovascular disease Plan: Continue supplemental oxygen 2 L nasal cannula On IV vancomycin for enterococcus off of Zosyn Continue IV steroids, continue for now 40 mg IV every 12 Optimize treatment for heart failure and A. fib with RVR with consideration of amiodarone, if he relapses Continue replace electrolytes including potassium PT OT evaluation Elevated troponin likely related to demand ischemia Continue gentle hydration Monitor renal functions closely, FG following Deep breathing sense incentive spirometry Continue home medications Further plan of care as per clinical response of the patient Time with Patient: Greater than 30
--- NOTE | 2021-08-30 03:41 | PN ---
PROGRESS NOTE This 75-year-old white female who is lying in bed, giving appropriate answers today. Discussed with her CT scan of her abdomen, pelvis being normal. She is being treated for enterococcus to the UTI for the positive blood cultures. Continue on broad- spectrum antibiotics per Dr. Marks recommendation. Treat for atrial fibrillation COPD and pulmonary fibrosis. Improve her strength and oral intake. Condition is guarded. Prognosis guarded. MMODL / IJN: [id number] /
[2021-08-30] MEDS: PANTOPRAZOLE 40 MG TABLET PO SCH (05:27)
[2021-08-30 06:05] LABS: Glucose,Whole Blood 130 mg/dL (70-110)
[2021-08-30] MEDS: INSULIN ASPART (NovoLOG) 100 UNIT/ML VIAL SQ SCH ×4 (06:11→21:55)
[2021-08-30] MEDS: SYMBICORT 160-4.5 MCG INHALER INHALATION SCH ×2 (08:03→19:21)
[2021-08-30] MEDS: APIXABAN 5 MG TAB PO SCH ×2 (09:12→21:57)
[2021-08-30] MEDS: KETOTIFEN 0.025% OPHTH DROPS 5 ML BTL BOTH EYES SCH ×2 (09:13→21:58)
[2021-08-30] MEDS: amLODIPine 5 MG TAB PO SCH (09:13)
[2021-08-30] MEDS: FLUCONAZOLE 100 MG TAB PO SCH (09:13)
[2021-08-30] MEDS: METOPROLOL TARTRATE 50 MG TAB PO SCH ×2 (09:13→21:58)
[2021-08-30] MEDS: MEGESTROL 400 MG/10 ML CUP PO SCH (09:13)
[2021-08-30] MEDS: methylPREDNISolone SOD SUCCI 40 MG/ML 1 ML VIAL IV SCH ×2 (09:14→21:58)
[2021-08-30] MEDS ORDERED: VANCOMYCIN TROUGH DUE 1 EACH MISC MISCELLANE ONE (11:00)
[2021-08-30 11:30] LABS: Glucose,Whole Blood 134 mg/dL (70-110)
[2021-08-30 11:46] LABS: African American GFR (CKD) >90 (>60 ml/min/1.73 sqM); Non-African American GFR(CKD) 86 (>60 ml/min/1.73 sqM)
[2021-08-30] MEDS: VANCOMYCIN 1,250 MG in SODIUM CHLORIDE 0.9% 250 ML IVPB SCH (12:24)
[2021-08-30] MEDS: VANCOMYCIN 1,000 MG in SODIUM CHLORIDE 0.9% 250 ML IVPB SCH (14:30)
[2021-08-30 16:47] LABS: Glucose,Whole Blood 146 mg/dL (70-110)
--- NOTE | 2021-08-30 16:57 | PN ---
PROGRESS NOTE Lisbet Dobbins is a 75-year-old lady who is admitted to hospital with atrial fibrillation and we have been consulted for the same. This morning, she remains in atrial fibrillation with controlled ventricular rate. She has dementia, hypertension, and renal insufficiency. EXAM: She is lying comfortably at rest, free of any symptoms. Vital signs are stable. Chest exam reveals good air entry bilaterally. Heart exam reveals first and second heart sounds. Systolic murmur at the apex. Abdomen is soft. Exam of extremities did not reveal any edema. LABS: I do not have any labs on her from today. ASSESSMENT: Atrial fibrillation with controlled ventricular rate. PLAN: The patient will continue current medications including Norvasc, Eliquis, Lipitor, Apresoline, along with Lopressor. MMODL / IJN: [id number] /
[2021-08-30] MEDS: ALBUTEROL NEBULIZED 2.5 MG/3 ML INHALATION PRN (17:12)
--- NOTE | 2021-08-30 17:31 | P.PN ---
Subjective Progress Note Date: 08/30/21 Principal diagnosis: Leukocytosis and bacteremia Patient is a 75-year-old -Spanish female initially presented to hospital on 08/11/2021 for increasing weakness slurred speech with concern for possible CVA patient has been on steroids and Zosyn per pulmonary patient was noticed to have elevated white count that prompted this infectious disease consultation. On today's evaluation that is 08/30/2021, the patient remains to be afebrile, patient is breathing comfortably on nasal cannula oxygen, the patient denies chest pain or shortness of breath, denies any worsening cough or sputum production no abdominal pain and no diarrhea Objective - Vital Signs Vital signs: Vital Signs Temp 97.4 F L 08/30/21 16:11 Pulse 85 08/30/21 17:21 Resp 20 08/30/21 17:21 BP 134/91 08/30/21 16:11 Pulse Ox 98 08/30/21 16:11 FiO2 30 08/20/21 16:05 Intake & Output 08/29/21 08/30/21 08/30/21 18:59 06:59 18:59 Intake Total 118 240 0 Output Total 540 150 240 Balance -422 90 -240 Intake: Oral 118 240 0 Output: Urine 540 150 240 Other: Voiding Method Indwelling Catheter Indwelling Catheter Indwelling Catheter # Bowel Movements 1 - Exam GENERAL DESCRIPTION: Elderly female lying in bed, no distress. No tachypnea or accessory muscle of respiration use. LUNGS: Unlabored breathing. Decreased breath sound the base HEART: S1, S2, regular rate and rhythm. ABDOMEN: Soft, no tenderness , guarding or rigidity, no organomegaly EXTREMITIES: No edema of feet. - Labs CBC & Chem 7: 08/29/21 07:09 08/30/21 11:08 Labs: Abnormal Lab Results - Last 24 Hours (Table) 08/29/21 08/30/21 08/30/21 Range/Units 20:20 06:01 11:26 POC Glucose (mg/dL) 238 H 130 H 134 H (70-110) mg/dL 08/30/21 Range/Units 16:38 POC Glucose (mg/dL) 146 H (70-110) mg/dL Microbiology - Last 24 Hours (Table) 08/27/21 14:45 Blood Culture - Preliminary Blood No Growth after 72 hours 08/26/21 07:38 Blood Culture Gram Stain - Final Blood Blood Culture - Final Enterococcus faecium Assessment and Plan (1) Leukocytosis Current Visit: Yes Status: Acute Code(s): D72.829 - ELEVATED WHITE BLOOD CELL COUNT, UNSPECIFIED SNOMED Code(s): 621802598 (2) Bacteremia Current Visit: Yes Status: Acute Code(s): R78.81 - BACTEREMIA SNOMED Code(s): 2101037 Plan: 1patient with a leukocytosis in this patient has been in the hospital for more than 2 weeks now with initial admission to the hospital with weakness patient d id not have any fever last chest x-ray 3 days ago did not show any evidence of pneumonia urine has been negative abdominal soft clinical examination no diarrhea reported by the nursing staff elevated white and more likely related to steroids plus minus oropharyngeal candidiasis, 2patient now with evidence of Enterococcus bacteremia which usually of gut or urinary source however the UA on 08/26/2020 was negative, blood cultures repeated so far negative, CT abdominal pelvis did not show any acute abnormality, echocardiogram has been ordered currently pending 3-patient repeat blood culture so far negative, patient to continue with vancomycin and monitor kidney function closely Family at the bedside multiple questions were answered Time with Patient: Less than 30
[2021-08-30 19:48] LABS: Glucose,Whole Blood 197 mg/dL (70-110)
[2021-08-30] MEDS: ATORVASTATIN 20 MG TAB PO SCH (21:57)
[2021-08-30] MEDS: MONTELUKAST 10 MG TAB PO SCH (21:58)
[2021-08-30] MEDS ORDERED: guaiFENesin-Coden 100-10MG/5ML 10 ML CUP PO PRN (22:00)
[2021-08-31] MEDS: VANCOMYCIN 1,000 MG in SODIUM CHLORIDE 0.9% 250 ML IVPB SCH ×2 (02:05→14:54)
[2021-08-31] MEDS: ACETAMINOPHEN TAB 325 MG TAB PO PRN ×3 (02:06→22:24)
[2021-08-31] MEDS: ALPRAZolam 0.25 MG TAB PO PRN (02:08)
[2021-08-31 06:02] LABS: Glucose,Whole Blood 130 mg/dL (70-110)
[2021-08-31] MEDS: PANTOPRAZOLE 40 MG TABLET PO SCH (06:08)
[2021-08-31] MEDS: INSULIN ASPART (NovoLOG) 100 UNIT/ML VIAL SQ SCH ×4 (06:12→21:51)
[2021-08-31 08:24] LABS: African American GFR (CKD) >90 (>60 ml/min/1.73 sqM); Non-African American GFR(CKD) 88 (>60 ml/min/1.73 sqM)
[2021-08-31] MEDS: SYMBICORT 160-4.5 MCG INHALER INHALATION SCH ×2 (08:47→19:55)
[2021-08-31] MEDS: METOPROLOL TARTRATE 50 MG TAB PO SCH ×2 (08:48→21:51)
[2021-08-31] MEDS: FLUCONAZOLE 100 MG TAB PO SCH (08:48)
[2021-08-31] MEDS: APIXABAN 5 MG TAB PO SCH ×2 (08:48→21:51)
[2021-08-31] MEDS: MEGESTROL 400 MG/10 ML CUP PO SCH (08:48)
[2021-08-31] MEDS: amLODIPine 5 MG TAB PO SCH (08:49)
[2021-08-31] MEDS: methylPREDNISolone SOD SUCCI 40 MG/ML 1 ML VIAL IV SCH ×2 (08:49→21:51)
[2021-08-31] MEDS: KETOTIFEN 0.025% OPHTH DROPS 5 ML BTL BOTH EYES SCH ×2 (08:55→21:51)
[2021-08-31 11:31] LABS: Glucose,Whole Blood 151 mg/dL (70-110)
--- NOTE | 2021-08-31 11:45 | P.PN ---
Subjective This is a pleasant 75-year-old with past medical history significant for advanced dementia, postural hypotension, chronic kidney disease, hypertension, paroxysmal atrial fibrillation on Eliquis, Bronchitis. She used to follow in the office with Dr. Smart. We are being consulted for elevated troponin. Patient is a poor historian unable to state why she came to the hospital. She has no complaints at bedside. Denies any pain, chest pain, shortness of breath. DIAGNOSTICS: Most recent echo 06/2021 revealed EF 5560%, moderately increase posterior wall thickness Patient was admitted to the hospital in November 2020 with complaints of chest pain and shortness of breath. She was evaluated by nuclear Stress test and echocardiogram. Nuclear stress test showed mild ischemia. She was evaluated Dr. Cotton, nuclear stress test was reviewed by cardiology and medical therapy was advised. 08/26/2021- Cardiology was asked to evaluate patient secondary to atrial fibrillation with RVR. Apparently yesterday the patient went into A. fib with RVR. She was started on IV Cardizem which was then discontinued 08/31/2021 Patient seen and examined at bedside, no acute distress. She denies any chest pain, palpitations or shortness of breath. Vital signs are stable. Patient is currently in sinus mechanism heart rate 70s-80s. Meds: Amlodipine 5 mg daily, Eliquis 5 mg twice a day, atorvastatin 20 mg nightly, metoprolol titrate 100 mg twice a day. she is currently on IV antibiotics per infectious disease PHYSICAL EXAM: VITAL SIGNS: Reviewed. GENERAL: Well-developed in no acute distress. NECK: Supple. No JVD or thyromegaly LUNGS: Respirations even and unlabored. Lungs essentially clear to auscultation bilaterally. HEART: Irregular rate and rhythm. S1 and S2 heard. EXTREMITIES: Normal range of motion. No clubbing or cyanosis. Peripheral pulses intact. No lower extremity edema ASSESSMENT: Acute kidney injury Urinary tract infection Leukocytosis Elevated troponin, likely related to acute kidney injury Dementia Altered mental status History asthma/COPD Paroxysmal atrial fibrillation with RVR on Eliquis History of Hypertension History of postural hypotension Chronic kidney disease PLAN: Continue current cardiac medications Continue eliquis 5mg BID Continue metoprolol tartrate 100 mg twice a day Continue telemetry monitoring No further changes from a cardiology perspective. Nurse practitioner note has been reviewed by physician. Signing provider agrees with the documented findings, assessment, and plan of care. Objective - Vital Signs Vital signs: Vital Signs Temp 97.4 F L 08/30/21 16:11 Pulse 85 08/30/21 17:21 Resp 20 08/30/21 17:21 BP 134/91 08/30/21 16:11 Pulse Ox 97 08/30/21 19:21 FiO2 21 08/30/21 19:21 Intake & Output 08/30/21 08/30/21 08/31/21 06:59 18:59 06:59 Intake Total 240 0 Output Total 150 240 Balance 90 -240 Intake: Oral 240 0 Output: Urine 150 240 Other: Voiding Method Indwelling Catheter Indwelling Catheter # Bowel Movements 1 - Labs CBC & Chem 7: 08/29/21 07:09 08/31/21 07:36 Labs: Abnormal Lab Results - Last 24 Hours (Table) 08/29/21 08/30/21 08/30/21 Range/Units 20:20 06:01 11:26 POC Glucose (mg/dL) 238 H 130 H 134 H (70-110) mg/dL 08/30/21 Range/Units 16:38 POC Glucose (mg/dL) 146 H (70-110) mg/dL Microbiology - Last 24 Hours (Table) 08/27/21 14:45 Blood Culture - Preliminary Blood No Growth after 72 hours
--- NOTE | 2021-08-31 14:23 | XR ---
EXAMINATION TYPE: XR KUB portable DATE OF EXAM: 08/31/2021 COMPARISON: None INDICATION: Pain TECHNIQUE: Single view abdomen supine view FINDINGS: There is a normal bowel gas pattern. Some contrast appears to be through the proximal transverse colo n. Psoas margins are normal. No organomegaly is present. Postsurgical changes are within the lumbar spine. Left hip prosthesis is partially visualized. IMPRESSION: 1. Nonspecific abdomen.
--- NOTE | 2021-08-31 14:26 | XR ---
EXAMINATION TYPE: XR lumbar spine 2 or 3V DATE OF EXAM: 08/31/2021 COMPARISON: 04/01/2021 HISTORY: Low back pain TECHNIQUE: 3 view lumbar spine FINDINGS: There are 5 lumbar-type vertebral bodies. L1-L3 pedicles appear intact. L4 and L5 pedicles have pedicle screws. Disc spacer is present at L4-L5. Vertebral body heights appear preserved. An old superior endplate change at L3 is present. Scoliosis is evident. No significant interval change is e vident. IMPRESSION: 1. Stable postsurgical changes lumbar spine. 2. Scoliosis with old superior endplate change at L3.
[2021-08-31 16:44] LABS: Glucose,Whole Blood 160 mg/dL (70-110)
[2021-08-31 19:55] LABS: Glucose,Whole Blood 160 mg/dL (70-110)
[2021-08-31] MEDS: ATORVASTATIN 20 MG TAB PO SCH (21:51)
[2021-08-31] MEDS: MONTELUKAST 10 MG TAB PO SCH (21:51)
[2021-09-01] MEDS: PANTOPRAZOLE 40 MG TABLET PO SCH (01:51)
[2021-09-01] MEDS: VANCOMYCIN 1,000 MG in SODIUM CHLORIDE 0.9% 250 ML IVPB SCH ×2 (02:05→13:56)
[2021-09-01 06:13] LABS: Glucose,Whole Blood 121 mg/dL (70-110)
[2021-09-01] MEDS: INSULIN ASPART (NovoLOG) 100 UNIT/ML VIAL SQ SCH ×4 (06:48→21:54)
[2021-09-01] MEDS: SYMBICORT 160-4.5 MCG INHALER INHALATION SCH ×2 (07:07→19:46)
--- NOTE | 2021-09-01 07:38 | CA ---
Transthoracic Echo Report Name: Lisbet Dobbins Age: 75 Gender: F : 1945 Exam Date: 08/31/2021 08:38 Exam Location: [facility] Ht (in): 65 Wt (lb): 142 Ordering Physician: Mary Alice Marks MD Attending/Referring Phys: [employer] Calenderer Angeline Rodrigues RDCS Procedure CPT: Indications: positive blood culture Cardiac Hx: Technical Quality: Fair Contrast 1: Total Dose (mL): Contrast 2: Total Dose (mL): MEASUREMENTS (Male / Female) Normal Values 2D ECHO LV Diastolic Diameter PLAX 3.3 cm 4.2 - 5.9 / 3.9 - 5.3 cm LV Systolic Diameter PLAX 2.8 cm IVS Diastolic Thickness 1.3 cm 0.6 - 1.0 / 0.6 - 0.9 cm LVPW Diastolic Thickness 1.6 cm 0.6 - 1.0 / 0.6 - 0.9 cm LV Relative Wall Thickness 0.9 RV Internal Dim ED PLAX 3.3 cm LA Systolic Diameter LX 4.9 cm 3.0 - 4.0 / 2.7 - 3.8 cm FINDINGS Left Ventricle Mildly increased septal wall thickness. Severely increased posterior wall thickness. Right Ventricle Normal right ventricular size. Right Atrium Normal right atrial size. Left Atrium Severely increased left atrial diameter. Mitral Valve Mild mitral regurgitation. Aortic Valve No aortic stenosis. No aortic regurgitation. Tricuspid Valve Mild tricuspid regurgitation. Pulmonic Valve Structurally normal pulmonic valve. Trace pulmonic regurgitation. Pericardium Probable fat pad no significant effusion Aorta Normal size aortic root and proximal ascending aorta. CONCLUSIONS Normal LV size, concentric LVH, left atrial enlargement mitral annular calcification. Mild mitral insufficiency. Probable pericardial fat pad Previewed by: Dr. Yen Cotton MD (Electronically Signed) Final Date: 01 September 2021 07:37
[2021-09-01] MEDS: METOPROLOL TARTRATE 50 MG TAB PO SCH ×2 (08:35→21:53)
[2021-09-01] MEDS: amLODIPine 5 MG TAB PO SCH (08:35)
[2021-09-01] MEDS: methylPREDNISolone SOD SUCCI 40 MG/ML 1 ML VIAL IV SCH (08:35)
[2021-09-01] MEDS: MEGESTROL 400 MG/10 ML CUP PO SCH (08:35)
[2021-09-01] MEDS: KETOTIFEN 0.025% OPHTH DROPS 5 ML BTL BOTH EYES SCH ×2 (08:35→21:54)
[2021-09-01] MEDS: FLUCONAZOLE 100 MG TAB PO SCH (08:35)
[2021-09-01] MEDS: APIXABAN 5 MG TAB PO SCH ×2 (08:35→21:54)
[2021-09-01 11:53] LABS: Glucose,Whole Blood 153 mg/dL (70-110)
[2021-09-01] MEDS ORDERED: IV FLUID CONTINUATION 500 ML IV ONE (12:06)
[2021-09-01] MEDS ORDERED: LIDOCAINE 2% INJ 20 MG/ML (2 ML VIAL) ONE (12:09)
[2021-09-01] MEDS ORDERED: PROPOFOL 10 MG/ML 20 ML VIAL IV ONE (12:09)
--- NOTE | 2021-09-01 12:10 | P.PN ---
Subjective This is a pleasant 75-year-old with past medical history significant for advanced dementia, postural hypotension, chronic kidney disease, hypertension, paroxysmal atrial fibrillation on Eliquis, Bronchitis. She used to follow in the office with Dr. Smart. We are being consulted for elevated troponin. Patient is a poor historian unable to state why she came to the hospital. She has no complaints at bedside. Denies any pain, chest pain, shortness of breath. DIAGNOSTICS: Most recent echo 06/2021 revealed EF 5560%, moderately increase posterior wall thickness Patient was admitted to the hospital in November 2020 with complaints of chest pain and shortness of breath. She was evaluated by nuclear Stress test and echocardiogram. Nuclear stress test showed mild ischemia. She was evaluated Dr. Cotton, nuclear stress test was reviewed by cardiology and medical therapy was advised. 08/26/2021- Cardiology was asked to evaluate patient secondary to atrial fibrillation with RVR. Apparently yesterday the patient went into A. fib with RVR. She was started on IV Cardizem which was then discontinued 09/01/2021 Patient seen and examined at bedside, no acute distress. Confused. Tearful on exam. She denies any chest pain, palpitations or shortness of breath. Vital signs are stable. Patient is currently in sinus mechanism heart rate 70s-80s. Meds: Amlodipine 5 mg daily, Eliquis 5 mg twice a day, atorvastatin 20 mg nightly, metoprolol titrate 100 mg twice a day. she is currently on IV antibiotics per infectious disease PHYSICAL EXAM: VITAL SIGNS: Reviewed. GENERAL: Well-developed in no acute distress. NECK: Supple. No JVD or thyromegaly LUNGS: Respirations even and unlabored. Lungs essentially clear to auscultation bilaterally. HEART: Irregular rate and rhythm. S1 and S2 heard. EXTREMITIES: Normal range of motion. No clubbing or cyanosis. Peripheral pulses intact. No lower extremity edema ASSESSMENT: Acute kidney injury Urinary tract infection Leukocytosis Elevated troponin, likely related to acute kidney injury Dementia Altered mental status History asthma/COPD Paroxysmal atrial fibrillation with RVR on Eliquis History of Hypertension History of postural hypotension Chronic kidney disease PLAN: Continue current cardiac medications Continue eliquis 5mg BID Continue metoprolol tartrate 100 mg twice a day Continue telemetry monitoring No further changes from a cardiology perspective. Please reach out with any further questions or concerns. Nurse practitioner note has been reviewed by physician. Signing provider agrees with the documented findings, assessment, and plan of care. Objective - Vital Signs Vital signs: Vital Signs Temp 97.8 F 09/01/21 08:34 Pulse 85 09/01/21 08:34 Resp 18 09/01/21 08:34 BP 139/85 09/01/21 08:34 Pulse Ox 98 09/01/21 08:34 FiO2 21 08/30/21 19:21 Intake & Output 08/31/21 09/01/21 09/01/21 18:59 06:59 18:59 Intake Total 180 Output Total 250 Balance -70 Weight 64.5 kg Intake: Oral 180 Output: Urine 250 Other: Voiding Method Indwelling Catheter Indwelling Catheter Indwelling Catheter - Labs CBC & Chem 7: 08/29/21 07:09 08/31/21 07:36 Labs: Abnormal Lab Results - Last 24 Hours (Table) 08/31/21 08/31/21 09/01/21 Range/Units 16:43 19:48 06:10 POC Glucose (mg/dL) 160 H 160 H 121 H (70-110) mg/dL 09/01/21 Range/Units 11:52 POC Glucose (mg/dL) 153 H (70-110) mg/dL Microbiology - Last 24 Hours (Table) 08/27/21 14:45 Blood Culture - Preliminary Blood No Growth after 96 hours
--- NOTE | 2021-09-01 12:26 | P.GSCN ---
History of Present Illness Consult date: 08/31/21 Reason for Consult: Malnutrition History of present illness: This a 75-year-old female who's been admitted for multiple medical problems. Patient has had severe malnutrition for several weeks. Past Medical History Past Medical History: Atrial Fibrillation, Asthma, COPD, Dementia, Hyperlipidemia, Hypertension, Memory Impairment, Renal Disease, Seizure Disorder, Vascular Disorder Additional Past Medical History / Comment(s): Aortic aneurysm, daughter states past fluid around lung that was drained off, CKD III, nephrolithiasis, UTI/cystitis, one seizure in 2019, anemia, chronic back pain, bilateral ankle edema, FALLS History of Any Multi-Drug Resistant Organisms: None Reported Past Surgical History: Back Surgery, Hysterectomy, Orthopedic Surgery, Tonsillectomy, Tubal Ligation Additional Past Surgical History / Comment(s): D&C, EGD, colonoscopy, L hip hemiarthroplasty d/t fracure, R shoulder surgery d/t fracture-has hardware Past Anesthesia/Blood Transfusion Reactions: Motion Sickness Additional Past Anesthesia/Blood Transfusion Reaction / Comm: Pt has clausterphobia. Past Psychological History: Anxiety Additional Psychological History / Comment(s): Pt resides with her daughter, Analisa who is her legal guardian/caregiver. She uses a walker to ambulate. Her daughter is her caregiver, she assists pt with bathing/dressing and manages her medications and also drives her to [employer]. Smoking Status: Never smoker Past Alcohol Use History: None Reported Past Drug Use History: None Reported - Past Family History Mother Family Medical History: Hypertension Father Family Medical History: Coronary Artery Disease (CAD), Myocardial Infarction (OR) Additional Family Medical History / Comment(s): Father of a OR in his 70s. Medications and Allergies Home Medications Medication Instructions Recorded Confirmed Type Montelukast Sodium [Singulair] 10 mg PO HS 10/01/19 08/11/21 History Albuterol Sulfate [Ventolin HFA] 2 puff INHALATION RT-Q4H PRN 05/05/20 08/11/21 History Metoprolol Succinate (ER) [Toprol 25 mg PO BID 02/10/21 08/11/21 History XL] Nitroglycerin Sl Tabs [Nitrostat] 0.4 mg SL Q5M PRN 05/22/21 08/11/21 History predniSONE 10 mg PO DAILY 05/22/21 08/11/21 History Apixaban [Eliquis] 5 mg PO BID 06/10/21 08/11/21 History Atorvastatin [Lipitor] 20 mg PO HS 06/10/21 08/11/21 History Melatonin 10 mg PO HS 06/10/21 08/11/21 History Pantoprazole [Protonix] 40 mg PO DAILY 06/10/21 08/11/21 History Potassium Chloride ER [K-Dur 20] 20 meq PO DAILY 06/10/21 08/11/21 History Budesonide-Formot 160-4.5 Mcg 2 puff INHALATION RT-BID gm 06/11/21 08/11/21 Rx [Symbicort 160-4.5 Mcg Inhaler] Megestrol [Megace] 40 mg PO BID 07/22/21 08/11/21 History Ondansetron [Zofran] 4 mg PO Q8HR PRN 07/22/21 08/11/21 History Amiodarone [Cordarone] See Taper PO DIRECTED 08/11/21 08/11/21 History HYDROcodone/APAP 5-325MG [[place] 1 tab PO TID PRN 08/11/21 08/11/21 History 5-325] Allergies Allergy/AdvReac Type Severity Reaction Status Date / Time levofloxacin Allergy Anaphylaxis Verified 08/11/21 20:09 lisinopril Allergy Unknown Verified 08/11/21 20:09 memantine [From Namenda] Allergy Rash/Hives Verified 08/11/21 20:09 Surgical - Exam Vital Signs Temp Pulse Resp BP Pulse Ox 97.8 F 84 16 122/78 97 08/11/21 16:12 08/11/21 16:12 08/11/21 16:12 08/11/21 16:12 08/11/21 16:12 - General well developed, well nourished, no distress - Eyes PERRL - ENT normal pinna - Neck no masses - Respiratory normal expansion - Cardiovascular Rhythm: regular - Abdomen Abdomen: soft, non tender Results - Labs 08/29/21 07:09 08/31/21 07:36 Abnormal Lab Results - Last 24 Hours (Table) 08/31/21 08/31/21 09/01/21 Range/Units 16:43 19:48 06:10 POC Glucose (mg/dL) 160 H 160 H 121 H (70-110) mg/dL 09/01/21 Range/Units 11:52 POC Glucose (mg/dL) 153 H (70-110) mg/dL Microbiology - Last 24 Hours (Table) 08/27/21 14:45 Blood Culture - Preliminary Blood No Growth after 96 hours Assessment and Plan Assessment: Severe protein calorie malnutrition. Patient will undergo PEG tube placement
--- NOTE | 2021-09-01 12:27 | P.OP ---
Date of Procedure: 09/01/21 Preoperative Diagnosis: Protein calorie malnutrition Postoperative Diagnosis: Protein calorie malnutrition Procedure(s) Performed: EGD with PEG tube placement Anesthesia: MAC Surgeon: J Carlos Bernstein Estimated Blood Loss (ml): 5 Pathology: none sent Condition: stable Disposition: PACU Description of Procedure: Next the gastroscope placed oropharynx passed in the esophagus and stomach. There is no evidence of any outlet obstruction. Stomach was insufflated with air. The light reflux seen the anterior abdominal wall. The abdomen was prepped and draped usual fashion. The skin was incised. And the needles placed and stomach under direct visualization. The needle was snared. And the wires placed through the needle and the wire was snared and brought the oropharynx. The PEG tube was placed over top the wire brought down to the stomach. The PEG tube was secured. At the 3 cm vignesh. The one-piece bolster was used. Patient tolerated procedure well.
[2021-09-01] MEDS ORDERED: VANCOMYCIN TROUGH DUE 1 EACH MISC MISCELLANE ONE (13:00)
[2021-09-01 14:24] LABS: African American GFR (CKD) >90 (>60 ml/min/1.73 sqM); Non-African American GFR(CKD) >90 (>60 ml/min/1.73 sqM)
[2021-09-01 16:22] LABS: Glucose,Whole Blood 139 mg/dL (70-110)
[2021-09-01] MEDS: ACETAMINOPHEN TAB 325 MG TAB PO PRN (16:35)
[2021-09-01] MEDS: ALPRAZolam 0.25 MG TAB PO PRN (16:35)
--- NOTE | 2021-09-01 18:38 | P.PN ---
Subjective Progress Note Date: 09/01/21 Principal diagnosis: Failure to thrive Urinary tract infection Electrolyte imbalance with hypokalemia and hyponatremia Elevated troponin likely related to demand ischemia Developing progressive weakness Mild hydrocephalus Low back pain due to herniated thoracic vertebrae disc and DJD of spine Hypertension hypertensive cardiovascular disease 08/29/2021, patient seen eval examined during the rounds labs reviewed medications reviewed care plan discussed, respiratory status remained stable patient currently on room air, white cell count continue to go down is 21.4 hemoglobin is stable potassium is 5.7 BUN/creatinine continue to go 47/0.68 patient underwent computed tomography scan of the abdominal and pelvis no significant pathology identified, blood cultures have been negative 09/01/2021, patient seen eval examined during the rounds labs reviewed medications reviewed currently recovering from anesthesia after PEG tube placement tolerated very well complaining of some soreness in the throat and abdominal discomfort, patient is currently nothing by mouth for new PEG tube placement, denies any shortness of breath has been on room air now cuff congestion is present, remains on IV steroids which we will decrease to once daily, patient is also on vancomycin 08/28/2021, patient seen eval examined during the rounds labs reviewed medications reviewed care plan discussed, respirations stable, remains on supplemental oxygen off and on, denies any chest pain, intermittent PACs are seen with Leno freeman, EP service has been following they're escalated the dose of me toprolol, ID service is also following, white cell count elevated but trending down 08/27/2021, patient seen eval reexamined during the rounds labs reviewed medications reviewed care plan discussed, shortness of breath on activity and exertion however currently afebrile denies any chest pain or shortness of breath patient is in sinus rhythm with intermittent PACs, patient is on metoprolol 100 mg twice a day appears to be tolerating well, blood cultures are positive for enterococcus vancomycin has been admitted, off of Zosyn now ID following 08/26/2021, patient seen eval examined during the rounds labs reviewed medications reviewed care plan discussed, respiratory status remains stable aditi ins on 2 L oxygen more awake and alert now compared to yesterday steroid dose has been reduced, patient tolerating IV Zosyn fairly well renal functions stable A. fib RVR have converted to sinus rhythm patient is off of Cardizem drip 08/25/2021, patient seen eval examined during the rounds labs reviewed medications reviewed care plan discussed with the staff as well as family members present at bedside, patient remains mildly short of breath denies any chest pain however remains confused patient continued to have intermittent episodes of A. fib with RVR back on Cardizem now on 10 mg an hour in metoprolol dose has been escalated as well EP service is following the want to hold the amiodarone drip for now until maximal dose of beta gabriel are being given, patient denies any sputum production, remains on IV Zosyn and IV steroids, we will start tapering the steroids hopefully IV antibiotics can be switched to oral in next 24-48 hours white cell count continue to go up suspect likely relat ed to steroids 08/24/2021, patient seen eval examined during the rounds labs reviewed medications reviewed care plan discussed, respiratory status remains unchanged however seems to be associated with episodes of A. fib with RVR during that time she goes into freezing shortness of breath, similar episode happened overnight has been placed on Cardizem currently on 5 mg/h rate is controlled she somewhat anxious denies any chest pain primary service is present at bedside, due to recurrent episode question were raised about amiodarone noted that patient is being followed by EP service, we will discuss with the per service about consideration of amiodarone given the current status of atrial fibrillation and progressive respiratory deterioration, patient however remains afebrile hemodynamic status stable 100% oxygen on 2 L nasal cannula. Chest x-ray performed on 08/23/2021 reviewed essentially no significant changes been seen no focal infiltrate identified patient has some subsegmental linear atelectasis in the right lower lobe, white cell count is 20,700 with hemoglobin and hematocrit 10/35, BUN/creatinine up to 36/1.31 now down to 42/1.1. Patient remains on as needed bronchodilators with albuterol and oral direct anticoagulant, has been on Cardizem drip 5 mg/h Solu-Medrol is up to 60 mg every 6, patient remains on IV Zosyn 3.375 g 08/16/2021, patient seen eval examined during the rounds labs reviewed medications reviewed, respiratory status remains stable patient doing well r emains on room air denies any chest pain, saturation is 98% on room air, patient remains afebrile, patient remains on bronchodilator IV Rocephin for gram- negative urinary tract infection 08/15/2021, patient had relatively less pain in the back, breathing is stable, denies any chest pain, patient has been tolerating IV Rocephin well 08/14/2021, patient seen eval reexamined during the rounds labs reviewed medications reviewed as still have intermittent back pain, respirator status stable denies any chest pain or shortness of breath off of room air now. She remains on bronchodilator and direct oral anticoagulant along with Symbicort tolerating well remains on broad-spectrum IV antibiotics, culture positive for E. coli sensitive to Rocephin 08/13/2021, patient seen and evaluated examined during the round labs reviewed medications reviewed, mild dyspnea on exertion is present denies any chest pain, room air oxygen saturation is 95% to 99%, patient remains afebrile and hemodynamically stable, urine cultures are growing gram-negative rods, patient remains on pain medicines and the anxiety medicine has been on direct oral anticoagulant along with Rocephin already doing well has been afebrile WBC count is down 75-year-old female with prior medical history of the hypertension hypertensive cardiovascular disease has been hospitalized however discharged home brought back due to progressive weakness and inability to eat and swallow also had some component of slurred speech patient has significant history of asthma and asthmatic bronchitis with chronic low back pain, patient was having failure to thrive at home, urine cultures have been sent and results are pending, currently patient is on bronchodilator along with direct oral anticoagulant broad-spectrum antibiotics IV steroids along with her home medicine she is been gently rehydrated with normal saline as well, her white cell count arrival was 15,300 came down to 9000 and hemoglobin and hematocrit remained stable so as the platelet count, PT/INR and quinine so within normal limit potassium was low of only 3 improved after potassium replacement sodium was 134 improved to 139, BUN/creatinine 18/1.15 improved to 17/0.93. Troponin was elevated 0.048 up from 0.042, admitted chest x-ray no active process identified computed tomography scan of the brain mild hydrocephalus with chronic changes Objective - Vital Signs Vital signs: Vital Signs Temp 97.8 F 09/01/21 14:26 Pulse 77 09/01/21 14:26 Resp 18 09/01/21 14:26 BP 124/79 09/01/21 14:26 Pulse Ox 97 09/01/21 14:26 FiO2 21 08/30/21 19:21 Intake & Output 08/31/21 09/01/21 09/01/21 18:59 06:59 18:59 Intake Total 380 Output Total 250 Balance 130 Weight 64.5 kg Intake: IV 200 Oral 180 Output: Urine 250 Other: Voiding Method Indwelling Catheter Indwelling Catheter Indwelling Catheter - Exam - Constitutional General appearance: average body habitus, mild distress, family present at bedside somewhat anxious - EENT Eyes: PERRLA Ears: bilateral: normal - Neck Neck: normal ROM Carotids: bilateral: upstroke normal Thyroid: bilateral: normal size - Respiratory Respiratory: bilateral: CTA Abdomen, soft PEG tube site intact - Cardiovascular Rhythm: regular Heart sounds: normal: S1, S2 - Neurologic Neurologic: CNII-XII intact - Musculoskeletal Musculoskeletal: generalized weakness, strength equal bilaterally - Psychiatric Psychiatric: appropriate affect, intact judgment & insight - Labs CBC & Chem 7: 08/29/21 07:09 09/01/21 12:40 Labs: Abnormal Lab Results - Last 24 Hours (Table) 08/31/21 09/01/21 09/01/21 Range/Units 19:48 06:10 11:52 POC Glucose (mg/dL) 160 H 121 H 153 H (70-110) mg/dL 09/01/21 Range/Units 16:21 POC Glucose (mg/dL) 139 H (70-110) mg/dL Microbiology - Last 24 Hours (Table) 08/27/21 14:45 Blood Culture - Preliminary Blood No Growth after 120 hours Assessment and Plan Assessment: Enterococcus bacteremia Acute on chronic diastolic heart failure Atrial fibrillation with rapid ventricular response Bilateral wheezing appeared to be related to heart failure due to A. fib Severe protein calorie malnourishment Chronic persistent asthma by history Leukocytosis likely related to IV steroids Acute kidney injury Failure to thrive Urinary tract infection due to gram-negative vini, E. coli sensitive to Rocephin Electrolyte imbalance with hypokalemia and hyponatremia Elevated troponin likely related to demand ischemia Developing progressive weakness Normal pressure hydrocephalus, neurology following, Low back pain due to herniated thoracic vertebrae disc and DJD of spine Hypertension hypertensive cardiovascular disease Plan: Continue supplemental oxygen 2 L nasal cannula as needed Status post PEG tube placement for nutritional support On IV vancomycin for enterococcus off of Zosyn Continue IV steroids, continue for now 40 mg IV every 12 Optimize treatment for heart failure and A. fib with RVR with consideration of amiodarone, if he relapses Continue replace electrolytes including potassium PT OT evaluation Elevated troponin likely related to demand ischemia Continue gentle hydration Monitor renal functions closely, FG following Deep breathing sense incentive spirometry Continue home medications Further plan of care as per clinical response of the patient Time with Patient: Greater than 30
[2021-09-01] MEDS ORDERED: Acetaminophen-Codeine 300-30mg TAB PO PRN (19:01)
--- NOTE | 2021-09-01 19:45 | PN ---
PROGRESS NOTE She still remains extremely weak, fatigued, unable to ambulate. She is being treated for abnormal bacteremia per Dr. Marks, infectious disease doctor. He has got her on vancomycin. Repeat blood cultures have been done. Echocardiogram has been done. Blood pressure 120s to 130s over 80s, O2 97 to 98 on room air, temperature 97.8, pulse 77, respiratory rate 18. Cardiovascular S1, S2. Lungs clear. GI soft. Hematology negative Homans. She has Enterococcus faecium, unclear etiology. Wait for Dr. Marks's long-term recommendations to treat bacteremia. PT/OT. Increase diet. Family wants a PEG tube placed. Will get a PEG tube consult, as she is unable to eat or drink very much nutrition at this time. Prognosis guarded. MMODL / IJN: [id number] /
[2021-09-01 20:06] LABS: Anisocytosis Slight; HCT 32.3 % (34.0-46.0); HGB 9.5 gm/dL (11.4-16.0); Hypochromasia Marked; MCH 33.6 pg (25.0-35.0); MCHC 29.3 g/dL (31.0-37.0); Macrocytosis Marked; Mean Platelet Volume 11.3; Platelet Count 120 k/uL (150-450); RBC 2.82 m/uL (3.80-5.40); RDW 17.6 % (11.5-15.5)
[2021-09-01 20:09] LABS: MCV 114.5 fL (80.0-100.0)
[2021-09-01 20:20] LABS: ALT 134 U/L (4-34); AST 63 U/L (14-36); African American GFR (CKD) >90 (>60 ml/min/1.73 sqM); Albumin 2.6 g/dL (3.5-5.0); Alkaline Phosphatase 77 U/L (38-126); Anion Gap 3 mmol/L; Blood Urea Nitrogen 43 mg/dL (7-17); Calcium 9.1 mg/dL (8.4-10.2); Carbon Dioxide 25 mmol/L (22-30); Chloride 111 mmol/L (98-107); Glucose 155 mg/dL (74-99); Non-African American GFR(CKD) 84 (>60 ml/min/1.73 sqM); Sodium 139 mmol/L (137-145); Total Protein 4.5 g/dL (6.3-8.2)
[2021-09-01 20:23] LABS: Glucose,Whole Blood 208 mg/dL (70-110)
[2021-09-01 20:27] LABS: Potassium 6.4 mmol/L (3.5-5.1)
[2021-09-01 20:31] LABS: Lymphocytes # (M) 0.59 k/uL (1.0-4.8); Monocytes # (M) 0.88 k/uL (0-1.0); Neutrophils # (M) 27.84 k/uL (1.3-7.7); Neutrophils % (M) 95 %; Nucleated Red Blood Cells 3 /100 WBC (0-0); Polychromasia Present; Stomatocytes Present; Total Cells Counted 100; WBC 29.3 k/uL (3.8-10.6)
[2021-09-01] MEDS ORDERED: SODIUM CHLORIDE 0.9% 1,000 ML IV SCH (21:30)
[2021-09-01] MEDS: MONTELUKAST 10 MG TAB PO SCH (21:53)
[2021-09-01] MEDS: SODIUM POLYSTYRENE SULFONATE 15 GM/60 ML BOTTLE PO STA ×2 (21:53→22:19)
[2021-09-01] MEDS: ATORVASTATIN 20 MG TAB PO SCH (21:54)
[2021-09-01] MEDS ORDERED: INSULIN REGULAR 100 UNIT/ML VIAL (IV) IV ONE (23:04)
[2021-09-01] MEDS ORDERED: SODIUM ZIRCONIUM CYCLOSILICATE 10 GM PACKET PO ONE (23:05)
[2021-09-01] MEDS ORDERED: DEXTROSE 50% SYRINGE 50 ML IVP STA (23:05)
[2021-09-02] MEDS: ALPRAZolam 0.25 MG TAB PO PRN (00:15)
[2021-09-02] MEDS: PANTOPRAZOLE 40 MG TABLET PO SCH (05:47)
[2021-09-02 06:23] LABS: Glucose,Whole Blood 311 mg/dL (70-110)
[2021-09-02] MEDS: INSULIN ASPART (NovoLOG) 100 UNIT/ML VIAL SQ SCH ×3 (06:58→17:53)
[2021-09-02] MEDS ORDERED: VANCOMYCIN 1,250 MG in SODIUM CHLORIDE 0.9% 250 ML IVPB SCH ×2 (08:00→14:30)
[2021-09-02] MEDS: SYMBICORT 160-4.5 MCG INHALER INHALATION SCH ×2 (08:20→20:32)
[2021-09-02] MEDS ORDERED: methylPREDNISolone SOD SUCCI 40 MG/ML 1 ML VIAL IV SCH (09:00)
--- NOTE | 2021-09-02 09:27 | P.PN ---
Subjective Progress Note Date: 09/02/21 Principal diagnosis: Failure to thrive Urinary tract infection Electrolyte imbalance with hypokalemia and hyponatremia Elevated troponin likely related to demand ischemia Developing progressive weakness Mild hydrocephalus Low back pain due to herniated thoracic vertebrae disc and DJD of spine Hypertension hypertensive cardiovascular disease 09/02/2021, patient seen eval reexamined during the rounds labs reviewed medications reviewed care plan discussed with the staff at length, patient is very weak and somnolent with shallow respiration, opens eyes with verbal stimul i, patient overnight had another episodes of A. fib with RVR cardiovascular services following, blood glucose is elevated, labs include CBC and chemistry done overnight white cell count is up to 29,300 hemoglobin and hematocrit is 9.5 and 32, platelet count drop down to 120, sodium is 139 protection was 6.4 BUN/creatinine is 43/0.71 09/01/2021, patient seen eval examined during the rounds labs reviewed medications reviewed care plan discussed, respiratory status remained stable patient currently on room air, white cell count continue to go down is 21.4 hemoglobin is stable potassium is 5.7 BUN/creatinine continue to go 47/0.68 patient underwent computed tomography scan of the abdominal and pelvis no significant pathology identified, blood cultures have been negative 08/31/2021, patient seen eval examined during the rounds labs reviewed medications reviewed currently recovering from anesthesia after PEG tube placement tolerated very well complaining of some soreness in the throat and abdominal discomfort, patient is currently nothing by mouth for new PEG tube placement, denies any shortness of breath has been on room air now cuff congestion is present, remains on IV steroids which we will decrease to once daily, patient is also on vancomycin 08/28/2021, patient seen eval examined during the rounds labs reviewed medications reviewed care plan discussed, respirations stable, remains on supplemental oxygen off and on, denies any chest pain, intermittent PACs are seen with Leno freeman, EP service has been following they're escalated the dose of metoprolol, ID service is also following, white cell count elevated but trending down 08/27/2021, patient seen eval reexamined during the rounds labs reviewed medications reviewed care plan discussed, shortness of breath on activity and exertion however currently afebrile denies any chest pain or shortness of breath patient is in sinus rhythm with intermittent PACs, patient is on metoprolol 100 mg twice a day appears to be tolerating well, blood cultures are positive for enterococcus vancomycin has been admitted, off of Zosyn now ID following 08/26/2021, patient seen eval examined during the rounds labs reviewed medications reviewed care plan discussed, respiratory status remains stable remains on 2 L oxygen more awake and alert now compared to yesterday steroid dose has been reduced, patient tolerating IV Zosyn fairly well renal functions stable A. fib RVR have converted to sinus rhythm patient is off of Cardizem drip 08/25/2021, patient seen eval examined during the rounds labs reviewed medications reviewed care plan discussed with the staff as well as family members present at bedside, patient remains mildly short of breath denies any chest pain however remains confused patient continued to have intermittent ep isodes of A. fib with RVR back on Cardizem now on 10 mg an hour in metoprolol dose has been escalated as well EP service is following the want to hold the amiodarone drip for now until maximal dose of beta gabriel are being given, patient denies any sputum production, remains on IV Zosyn and IV steroids, we will start tapering the steroids hopefully IV antibiotics can be switched to oral in next 24-48 hours white cell count continue to go up suspect likely related to steroids 08/24/2021, patient seen eval examined during the rounds labs reviewed medications reviewed care plan discussed, respiratory status remains unchanged however seems to be associated with episodes of A. fib with RVR during that time she goes into freezing shortness of breath, similar episode happened overnight has been placed on Cardizem currently on 5 mg/h rate is controlled she somewhat anxious denies any chest pain primary service is present at bedside, due to recurrent episode question were raised about amiodarone noted that patient is being followed by EP service, we will discuss with the per service about c onsideration of amiodarone given the current status of atrial fibrillation and progressive respiratory deterioration, patient however remains afebrile hemodynamic status stable 100% oxygen on 2 L nasal cannula. Chest x-ray performed on 08/23/2021 reviewed essentially no significant changes been seen no focal infiltrate identified patient has some subsegmental linear atelectasis in the right lower lobe, white cell count is 20,700 with hemoglobin and hematocrit 10/35, BUN/creatinine up to 36/1.31 now down to 42/1.1. Patient remains on as needed bronchodilators with albuterol and oral direct anticoagulant, has been on Cardizem drip 5 mg/h Solu-Medrol is up to 60 mg every 6, patient remains on IV Zosyn 3.375 g 08/16/2021, patient seen eval examined during the rounds labs reviewed medications reviewed, respiratory status remains stable patient doing well remains on room air denies any chest pain, saturation is 98% on room air, patient remains afebrile, patient remains on bronchodilator IV Rocephin for gram-negative urinary tract infection 08/15/2021, patient had relatively less pain in the back, breathing is stable, denies any chest pain, patient has been tolerating IV Rocephin well 08/14/2021, patient seen eval reexamined during the rounds labs reviewed medications reviewed as still have intermittent back pain, respirator status stable denies any chest pain or shortness of breath off of room air now. She remains on bronchodilator and direct oral anticoagulant along with Symbicort tolerating well remains on broad-spectrum IV antibiotics, culture positive for E. coli sensitive to Rocephin 08/13/2021, patient seen and evaluated examined during the round labs reviewed medications reviewed, mild dyspnea on exertion is present denies any chest pain, room air oxygen saturation is 95% to 99%, patient remains afebrile and hemodynamically stable, urine cultures are growing gram-negative rods, patient remains on pain medicines and the anxiety medicine has been on direct oral anticoagulant along with Rocephin already doing well has been afebrile WBC count is down 75-year-old female with prior medical history of the hypertension hypertensive cardiovascular disease has been hospitalized however discharged home brought back due to progressive weakness and inability to eat and swallow also had some component of slurred speech patient has significant history of asthma and asthmatic bronchitis with chronic low back pain, patient was having failure to thrive at home, urine cultures have been sent and results are pending, currently patient is on bronchodilator along with direct oral anticoagulant broad-spectrum antibiotics IV steroids along with her home medicine she is been gently rehydrated with normal saline as well, her white cell count arrival was 15,300 came down to 9000 and hemoglobin and hematocrit remained stable so as the platelet count, PT/INR and quinine so within normal limit potassium was low of only 3 improved after potassium replacement sodium was 134 improved to 139, BUN/creatinine 18/1.15 improved to 17/0.93. Troponin was elevated 0.048 up from 0.042, admitted chest x-ray no active process identified computed tomography scan of the brain mild hydrocephalus with chronic changes Objective - Vital Signs Vital signs: Vital Signs Temp 97.3 F L 09/02/21 04:58 Pulse 90 09/02/21 04:58 Resp 18 09/02/21 04:58 BP 114/81 09/02/21 04:58 Pulse Ox 99 09/02/21 04:58 FiO2 21 08/30/21 19:21 Intake & Output 09/01/21 09/02/21 09/02/21 18:59 06:59 18:59 Intake Total 380 0 Output Total 250 350 Balance 130 -350 Intake: IV 200 Oral 180 0 Output: Urine 250 350 Other: Voiding Method Indwelling Catheter Indwelling Catheter - Exam - Constitutional General appearance: average body habitus, somnolent but arousable with verbal stimuli - EENT Eyes: PERRLA Ears: bilateral: normal - Neck Neck: normal ROM Carotids: bilateral: upstroke normal Thyroid: bilateral: normal size - Respiratory Respiratory: bilateral: CTA Abdomen, soft PEG tube site intact some oozing at the PAg site stable with dressing - Cardiovascular Rhythm: regular Heart sounds: normal: S1, S2 - Neurologic Neurologic: CNII-XII intact - Musculoskeletal Musculoskeletal: generalized weakness, strength equal bilaterally - Psychiatric Psychiatric: Very weak somnolent - Labs CBC & Chem 7: 09/01/21 19:42 09/01/21 19:42 Labs: Abnormal Lab Results - Last 24 Hours (Table) 09/01/21 09/01/21 09/01/21 Range/Units 11:52 16:21 19:42 WBC 29.3 H (3.8-10.6) k/uL RBC 2.82 L (3.80-5.40) m/uL Hgb 9.5 L (11.4-16.0) gm/dL Hct 32.3 L (34.0-46.0) % MCV 114.5 H D (80.0-100.0) fL MCHC 29.3 L (31.0-37.0) g/dL RDW 17.6 H (11.5-15.5) % Plt Count 120 L (150-450) k/uL Neutrophils # (Manual) 27.84 H (1.3-7.7) k/uL Lymphocytes # (Manual) 0.59 L (1.0-4.8) k/uL Nucleated RBCs 3 H (0-0) /100 WBC Macrocytosis Marked A Potassium (3.5-5.1) mmol/L Chloride (98-107) mmol/L BUN (7-17) mg/dL Glucose (74-99) mg/dL POC Glucose (mg/dL) 153 H 139 H (70-110) mg/dL AST (14-36) U/L ALT (4-34) U/L Total Protein (6.3-8.2) g/dL Albumin (3.5-5.0) g/dL 09/01/21 09/01/21 09/02/21 Range/Units 19:42 20:21 06:19 WBC (3.8-10.6) k/uL RBC (3.80-5.40) m/uL Hgb (11.4-16.0) gm/dL Hct (34.0-46.0) % MCV (80.0-100.0) fL MCHC (31.0-37.0) g/dL RDW (11.5-15.5) % Plt Count (150-450) k/uL Neutrophils # (Manual) (1.3-7.7) k/uL Lymphocytes # (Manual) (1.0-4.8) k/uL Nucleated RBCs (0-0) /100 WBC Macrocytosis Potassium 6.4 H* (3.5-5.1) mmol/L Chloride 111 H (98-107) mmol/L BUN 43 H (7-17) mg/dL Glucose 155 H (74-99) mg/dL POC Glucose (mg/dL) 208 H 311 H (70-110) mg/dL AST 63 H (14-36) U/L ALT 134 H (4-34) U/L Total Protein 4.5 L (6.3-8.2) g/dL Albumin 2.6 L (3.5-5.0) g/dL Microbiology - Last 24 Hours (Table) 08/27/21 14:45 Blood Culture - Preliminary Blood No Growth after 120 hours Assessment and Plan Assessment: Enterococcus bacteremia Acute on chronic diastolic heart failure Atrial fibrillation with rapid ventricular response, recurrent Severe protein calorie malnourishment Chronic persistent asthma by history Leukocytosis likely related to IV steroids as well as sepsis Acute kidney injury Failure to thrive Urinary tract infection due to gram-negative vini, E. coli status post treatment with Rocephin and Electrolyte imbalance with hyperkalemia and hyponatremia Elevated troponin likely related to demand ischemia Developing progressive weakness Normal pressure hydrocephalus, neurology following, Low back pain due to herniated thoracic vertebrae disc and DJD of spine Hypertension hypertensive cardiovascular disease Plan: Will order labs today Including ABG Patient may need BiPAP support Continue supplemental oxygen 2 L nasal cannula as needed in the meantime Status post PEG tube placement for nutritional support On IV vancomycin for enterococcus off of Zosyn Continue IV steroids, continue for now 40 mg IV every 12 Optimize treatment for heart failure and A. fib with RVR with consideration of amiodarone, if he relapses Continue replace electrolytes including potassium PT OT evaluation Elevated troponin likely related to demand ischemia Continue gentle hydration Monitor renal functions closely, FG following Deep breathing sense incentive spirometry Continue home medications Further plan of care as per clinical response of the patient Time with Patient: Greater than 30
[2021-09-02 09:55] LABS: INR 1.2 (<1.2); Prothrombin Time 12.6 sec (9.0-12.0)
[2021-09-02 10:00] LABS: Glucose,Whole Blood 169 mg/dL (70-110)
[2021-09-02 10:06] LABS: ABG Base Excess 0.7 mmol/L; ABG HCO3 27 mmol/L (21-25); ABG Oxygen Saturation 98.4 % (94-97); ABG PCO2 53 mmHg (35-45); ABG PH 7.32 (7.35-7.45); ABG PO2 105 mmHg (83-108); ABG TCO2 29 mmol/L (19-24); Allen Test Performed? Yes
[2021-09-02 10:08] LABS: Albumin 2.3 g/dL (3.5-5.0); Calcium 8.8 mg/dL (8.4-10.2); Magnesium 2.6 mg/dL (1.6-2.3); Potassium 5.4 mmol/L (3.5-5.1); Total Bilirubin 0.9 mg/dL (0.2-1.3)
[2021-09-02 10:15] LABS: Anisocytosis Slight; HCT 27.6 % (34.0-46.0); HGB 8.1 gm/dL (11.4-16.0); Hypochromasia Marked; MCH 33.5 pg (25.0-35.0); MCHC 29.2 g/dL (31.0-37.0); MCV 114.5 fL (80.0-100.0); Macrocytosis Marked; Mean Platelet Volume 9.7; Platelet Count 125 k/uL (150-450); RBC 2.41 m/uL (3.80-5.40); RDW 18.1 % (11.5-15.5)
[2021-09-02 10:38] LABS: Glucose,Whole Blood 160 mg/dL (70-110)
[2021-09-02] MEDS: NOREPINEPHRINE 32 MG in SODIUM CHLORIDE 0.9% 218 ML IV SCH (11:00)
[2021-09-02] MEDS ORDERED: MORPHINE SULFATE 2 MG/ML SYRINGE ONE (11:04)
[2021-09-02] MEDS ORDERED: LORazepam 2 MG/ML INJ ONE (11:06)
[2021-09-02] MEDS ORDERED: MORPHINE SULFATE 2 MG/ML SYRINGE IVP STA (11:07)
--- NOTE | 2021-09-02 11:07 | P.PN ---
Subjective Patient was being seen for acute kidney injury. Renal function had improved and we had signed off Last night I received a call as serum potassium was elevated at 6.4 mg/L. Blood sugar was also high. She received IV insulin This morning patient's blood pressure is low. Hemoglobin has dropped from 11 to about 7.8 g/dL. There is only noted at the site of the PEG tube. Patient does respond to verbal stimuli but does not communicate much. She is noticed to have significant edema of her eyelids, face and extremities. Systolic blood pressure of 95 mmHg today Blood sugar was down to 169 this morning. Patient's CODE STATUS is full code and there are plans for transfer to ICU. Objective - Vital Signs Vital signs: Vital Signs Temp 97.3 F L 09/02/21 04:58 Pulse 90 09/02/21 04:58 Resp 18 09/02/21 04:58 BP 114/81 09/02/21 04:58 Pulse Ox 99 09/02/21 04:58 FiO2 21 08/30/21 19:21 Intake & Output 09/01/21 09/02/21 09/02/21 18:59 06:59 18:59 Intake Total 380 0 Output Total 250 350 Balance 130 -350 Weight 64.5 kg Intake: IV 200 Oral 180 0 Output: Urine 250 350 Other: Voiding Method Indwelling Catheter Indwelling Catheter - Exam Awake, comfortable, not in any acute distress Lethargic Response to verbal stimuli but does not communicate much Examination of the heart S1 and S2 Examination lungs bilateral breath sounds are heard, decrease at the bases Abdomen is soft nontender, bruising noted at the PEG site Examination off lower extremity shows edema 2+ bilaterally upper and lower extremities and edema of the face as well - Labs CBC & Chem 7: 09/02/21 08:59 09/02/21 08:24 Labs: Abnormal Lab Results - Last 24 Hours (Table) 09/01/21 09/01/21 09/01/21 Range/Units 11:52 16:21 19:42 WBC 29.3 H (3.8-10.6) k/uL RBC 2.82 L (3.80-5.40) m/uL Hgb 9.5 L (11.4-16.0) gm/dL Hct 32.3 L (34.0-46.0) % MCV 114.5 H D (80.0-100.0) fL MCHC 29.3 L (31.0-37.0) g/dL RDW 17.6 H (11.5-15.5) % Plt Count 120 L (150-450) k/uL Neutrophils # (Manual) 27.84 H (1.3-7.7) k/uL Lymphocytes # (Manual) 0.59 L (1.0-4.8) k/uL Nucleated RBCs 3 H (0-0) /100 WBC Macrocytosis Marked A PT (9.0-12.0) sec INR (<1.2) ABG pH (7.35-7.45) ABG pCO2 (35-45) mmHg ABG HCO3 (21-25) mmol/L ABG Total CO2 (19-24) mmol/L ABG O2 Saturation (94-97) % Potassium (3.5-5.1) mmol/L Chloride (98-107) mmol/L BUN (7-17) mg/dL Glucose (74-99) mg/dL POC Glucose (mg/dL) 153 H 139 H (70-110) mg/dL Plasma Lactic Acid Nolberto (0.7-2.0) mmol/L Magnesium (1.6-2.3) mg/dL AST (14-36) U/L ALT (4-34) U/L Total Protein (6.3-8.2) g/dL Albumin (3.5-5.0) g/dL 09/01/21 09/01/21 09/02/21 Range/Units 19:42 20:21 06:19 WBC (3.8-10.6) k/uL RBC (3.80-5.40) m/uL Hgb (11.4-16.0) gm/dL Hct (34.0-46.0) % MCV (80.0-100.0) fL MCHC (31.0-37.0) g/dL RDW (11.5-15.5) % Plt Count (150-450) k/uL Neutrophils # (Manual) (1.3-7.7) k/uL Lymphocytes # (Manual) (1.0-4.8) k/uL Nucleated RBCs (0-0) /100 WBC Macrocytosis PT (9.0-12.0) sec INR (<1.2) ABG pH (7.35-7.45) ABG pCO2 (35-45) mmHg ABG HCO3 (21-25) mmol/L ABG Total CO2 (19-24) mmol/L ABG O2 Saturation (94-97) % Potassium 6.4 H* (3.5-5.1) mmol/L Chloride 111 H (98-107) mmol/L BUN 43 H (7-17) mg/dL Glucose 155 H (74-99) mg/dL POC Glucose (mg/dL) 208 H 311 H (70-110) mg/dL Plasma Lactic Acid Nolberto (0.7-2.0) mmol/L Magnesium (1.6-2.3) mg/dL AST 63 H (14-36) U/L ALT 134 H (4-34) U/L Total Protein 4.5 L (6.3-8.2) g/dL Albumin 2.6 L (3.5-5.0) g/dL 09/02/21 09/02/21 09/02/21 Range/Units 08:24 08:24 08:59 WBC (3.8-10.6) k/uL RBC (3.80-5.40) m/uL Hgb (11.4-16.0) gm/dL Hct (34.0-46.0) % MCV (80.0-100.0) fL MCHC (31.0-37.0) g/dL RDW (11.5-15.5) % Plt Count (150-450) k/uL Neutrophils # (Manual) (1.3-7.7) k/uL Lymphocytes # (Manual) (1.0-4.8) k/uL Nucleated RBCs (0-0) /100 WBC Macrocytosis PT 12.6 H (9.0-12.0) sec INR 1.2 H (<1.2) ABG pH (7.35-7.45) ABG pCO2 (35-45) mmHg ABG HCO3 (21-25) mmol/L ABG Total CO2 (19-24) mmol/L ABG O2 Saturation (94-97) % Potassium 5.4 H (3.5-5.1) mmol/L Chloride 114 H (98-107) mmol/L BUN 56 H (7-17) mg/dL Glucose 146 H (74-99) mg/dL POC Glucose (mg/dL) (70-110) mg/dL Plasma Lactic Acid Nolberto 3.4 H* (0.7-2.0) mmol/L Magnesium 2.6 H (1.6-2.3) mg/dL AST 57 H (14-36) U/L ALT 125 H (4-34) U/L Total Protein 4.0 L (6.3-8.2) g/dL Albumin 2.3 L (3.5-5.0) g/dL 09/02/21 09/02/21 09/02/21 Range/Units 08:59 09:57 10:03 WBC 23.7 H (3.8-10.6) k/uL RBC 2.41 L (3.80-5.40) m/uL Hgb 8.1 L (11.4-16.0) gm/dL Hct 27.6 L (34.0-46.0) % MCV 114.5 H (80.0-100.0) fL MCHC 29.2 L (31.0-37.0) g/dL RDW 18.1 H (11.5-15.5) % Plt Count 125 L (150-450) k/uL Neutrophils # (Manual) (1.3-7.7) k/uL Lymphocytes # (Manual) (1.0-4.8) k/uL Nucleated RBCs (0-0) /100 WBC Macrocytosis Marked A PT (9.0-12.0) sec INR (<1.2) ABG pH 7.32 L (7.35-7.45) ABG pCO2 53 H (35-45) mmHg ABG HCO3 27 H (21-25) mmol/L ABG Total CO2 29 H (19-24) mmol/L ABG O2 Saturation 98.4 H (94-97) % Potassium (3.5-5.1) mmol/L Chloride (98-107) mmol/L BUN (7-17) mg/dL Glucose (74-99) mg/dL POC Glucose (mg/dL) 169 H (70-110) mg/dL Plasma Lactic Acid Nolberto (0.7-2.0) mmol/L Magnesium (1.6-2.3) mg/dL AST (14-36) U/L ALT (4-34) U/L Total Protein (6.3-8.2) g/dL Albumin (3.5-5.0) g/dL 09/02/21 Range/Units 10:36 WBC (3.8-10.6) k/uL RBC (3.80-5.40) m/uL Hgb (11.4-16.0) gm/dL Hct (34.0-46.0) % MCV (80.0-100.0) fL MCHC (31.0-37.0) g/dL RDW (11.5-15.5) % Plt Count (150-450) k/uL Neutrophils # (Manual) (1.3-7.7) k/uL Lymphocytes # (Manual) (1.0-4.8) k/uL Nucleated RBCs (0-0) /100 WBC Macrocytosis PT (9.0-12.0) sec INR (<1.2) ABG pH (7.35-7.45) ABG pCO2 (35-45) mmHg ABG HCO3 (21-25) mmol/L ABG Total CO2 (19-24) mmol/L ABG O2 Saturation (94-97) % Potassium (3.5-5.1) mmol/L Chloride (98-107) mmol/L BUN (7-17) mg/dL Glucose (74-99) mg/dL POC Glucose (mg/dL) 160 H (70-110) mg/dL Plasma Lactic Acid Nolberto (0.7-2.0) mmol/L Magnesium (1.6-2.3) mg/dL AST (14-36) U/L ALT (4-34) U/L Total Protein (6.3-8.2) g/dL Albumin (3.5-5.0) g/dL Microbiology - Last 24 Hours (Table) 08/27/21 14:45 Blood Culture - Preliminary Blood No Growth after 120 hours Assessment and Plan Assessment: 1. Acute kidney injury secondary to hemodynamic ATN. This had resolved with serum creatinine down to 0.8 mg/dL. 2. E. coli UTI maintained on antibiotics 3. A. fib with RVR, status post Cardizem drip 4. COPD exacerbation 5. Benign hypertension 6. Hypokalemia secondary to diuresis, improved 7. Hyperkalemia associated with hyperglycemia, rule out Cardoza obstruction and urine retention. Rule out GI bleed in view of significant drop in hemoglobin. Plan: Check bladder scan/flush Cardoza catheter 2 50 mL fluid bolus Type and cross packed RBCs Repeat labs this morning Agree with transfer to ICU if patient remains full code
[2021-09-02] MEDS ORDERED: LORazepam 2 MG/ML INJ IV STA (11:08)
[2021-09-02] MEDS ORDERED: IPRATROPIUM-ALBUTEROL 3 ML NEB INHALATION PRN (11:12)
[2021-09-02] MEDS ORDERED: propofoL 100 ML IV ONE (11:14)
[2021-09-02 11:35] LABS: Glucose,Whole Blood 165 mg/dL (70-110)
[2021-09-02] MEDS ORDERED: SODIUM CHLORIDE 0.9% 2,000 ML IV ONE (11:36)
[2021-09-02 11:51] LABS: ABG Base Excess -0.8 mmol/L; ABG HCO3 24 mmol/L (21-25); ABG PCO2 36 mmHg (35-45); ABG PH 7.43 (7.35-7.45); ABG PO2 >400 mmHg (83-108); ABG TCO2 25 mmol/L (19-24)
[2021-09-02] MEDS: IPRATROPIUM-ALBUTEROL 3 ML NEB INHALATION SCH ×4 (11:58→23:58)
--- NOTE | 2021-09-02 12:01 | XR ---
EXAMINATION TYPE: XR chest 1V portable DATE OF EXAM: 09/02/2021 COMPARISON: Chest x-ray 08/23/2021 HISTORY: Shortness of breath TECHNIQUE: Single frontal view of the chest is obtained. FINDINGS: There is no interval change, bandlike area of increased density again noted at the right l sherice base, no pleural effusion or pneumothorax seen. The cardiac silhouette size is stable, appearanc e of enlargement a be technical. The osseous structures are intact, there is an underlying scoliosi s. Surgical clips are present right upper quadrant. Aorta is ectatic and tortuous, dense. Suspect pos top change to the right shoulder. There are overlying leads. IMPRESSION: Subsegmental basilar atelectatic changes versus scarring. Aortic ectasia and tortuosity.
--- NOTE | 2021-09-02 12:01 | P.PN ---
Progress Note - Text Progress Note Date: 09/02/21 The patient was transferred to the ICU this morning. She's had some mild oozing at the PEG tube site. On exam PEG tube site is secure. There is some bleeding at the skin site. Would recommend holding L Chris. Patient can receive supportive care.
[2021-09-02 12:09] LABS: Glucose,Whole Blood 133 mg/dL (70-110)
--- NOTE | 2021-09-02 12:19 | XR ---
EXAMINATION TYPE: XR chest 1V portable DATE OF EXAM: 09/02/2021 COMPARISON: Chest x-ray dated same dated earlier time HISTORY: Status post intubation TECHNIQUE: Single frontal view of the chest is obtained. FINDINGS: There has been interval placement of an endotracheal tube which is overlying the tracheal air column. No other significant interval change is evident. Lung volumes are improved. There are ove rlying leads. IMPRESSION: No evident complication status post intubation.
[2021-09-02 12:30] LABS: Lymphocytes # (M) 0.23 k/uL (1.0-4.8); Metamyelocytes # (M) 0.23 k/uL (0); Metamyelocytes % 1 %; Monocytes # (M) 0.68 k/uL (0-1.0); Myelocytes # (M) 0.23 k/uL (0); Myelocytes % 1 %; Neutrophils % (M) 96 %; Nucleated Red Blood Cells 5 /100 WBC (0-0); Total Cells Counted 200; WBC 22.6 k/uL (3.8-10.6)
[2021-09-02 12:31] LABS: Polychromasia Present
[2021-09-02] MEDS ORDERED: AMIODARONE 360 MG in DEXTROSE 5% IN WATER 200 ML IV ONE ×2 (12:42)
[2021-09-02] MEDS ORDERED: DEXTROSE 5% IN WATER 100 ML with AMIODARONE 150 MG IV ONE (12:42)
[2021-09-02 12:45] LABS: Anisocytosis Slight; Hypochromasia Marked; MCH 33.2 pg (25.0-35.0); MCHC 29.7 g/dL (31.0-37.0); MCV 111.8 fL (80.0-100.0); Macrocytosis Marked; Mean Platelet Volume 9.9; RBC 1.74 m/uL (3.80-5.40); RDW 17.8 % (11.5-15.5)
--- NOTE | 2021-09-02 12:52 | XR ---
Abdomen HISTORY: Pain, PEG tube bleeding Frontal view the abdomen submitted, correlation to prior exam 08/31/2021 PEG tube is present in the left upper quadrant. There is contrast material present within the colon. Surgical clips are present right upper quadrant. Right femoral central venous catheter is noted. Post op changes are noted at the lower lumbar spine. Postop changes noted to the left hip. Dense vascular calcifications are present. There is a spinal curvature. Lung bases are clear. The entire abdomen not included on the exam. IMPRESSION: Postop, post instrumentation changes. Somewhat limited exam.
[2021-09-02 12:58] LABS: INR 1.5 (<1.2)
[2021-09-02] MEDS: SODIUM CHLORIDE 0.9% 1,000 ML IV SCH ×2 (13:00→23:55)
[2021-09-02 13:05] LABS: Albumin 1.4 g/dL (3.5-5.0); Calcium 7.5 mg/dL (8.4-10.2); Potassium 4.3 mmol/L (3.5-5.1); Total Bilirubin 0.5 mg/dL (0.2-1.3); Total Protein 2.7 g/dL (6.3-8.2)
--- NOTE | 2021-09-02 13:14 | OP ---
OPERATIVE REPORT OPERATIVE REPORT: Endotracheal intubation. PREOPERATIVE DIAGNOSIS: Acute hypoxic respiratory failure with hypotension, septic shock. POSTOPERATIVE DIAGNOSIS: Acute hypoxic respiratory failure with hypotension, septic shock. ANESTHESIA USED: None deployed. PROCEDURE DESCRIPTION: The patient was placed in a supine position. The vocal cords were visualized using a size 4 blade/GlideScope. Direct visualization of the vocal cords was noted. Then a size 7.5 endotracheal tube was inserted easily with direct visualization of the vocal cords. This was advanced through the vocal cords. Cuff was inflated and tube was connected to an Ambu bag. There was change of color. There was no evidence of complications. Chest x-ray postoperatively showed adequate placement of the endotracheal tube. The procedure was well tolerated. The patient was later connected to mechanical ventilation. MMODL / IJN: [id number] /
--- NOTE | 2021-09-02 13:14 | OP ---
OPERATIVE REPORT OPERATIVE REPORT: Placement of a right femoral triple-lumen catheter. PREOPERATIVE DIAGNOSIS: Acute hypoxic respiratory failure, hypotension, sepsis and septic shock. POSTOPERATIVE DIAGNOSIS: Acute hypoxic respiratory failure, hypotension, sepsis and septic shock. ANESTHESIA USED: Two mL of 1% lidocaine. PROCEDURE DESCRIPTION: The right groin was prepared in a sterile fashion, drapes were applied. Patient was placed in a supine position. Then the right femoral vein was easily cannulated and a guidewire was placed. A triple-lumen catheter was inserted over the guidewire, and the guidewire was removed. Good blood flow was noted in the 3 different ports of the triple-lumen catheter. The triple-lumen catheter was connected to IV fluid and connected to norepinephrine. Line was secured using 3.0 silk sutures. No complications. The procedure was well tolerated. MMODL / IJN: [id number] /
--- NOTE | 2021-09-02 13:20 | PCN ---
PROCEDURE NOTE OPERATIVE REPORT: Placement of the left radial arterial line. PREOPERATIVE DIAGNOSES: Hypotension, sepsis, septic shock, and respiratory failure. POSTOPERATIVE DIAGNOSES: Hypotension, sepsis, septic shock, and respiratory failure. ANESTHESIA: None deployed. PROCEDURE: The patient was placed in the supine position, the left radial artery was palpated, cannulated easily, a guidewire was placed. Prior to the palpating and cannulating the radial artery, the area of the wrist was prepared in a sterile fashion and drapes were applied. Then, the radial artery was palpated, cannulated easily and a guidewire was placed, a Cook's catheter was inserted over the guidewire, the guidewire was removed. Good blood flow, good waveform noted. No complications. Line was secured using 2.0 silk sutures. MMODL / IJN: [id number] /
[2021-09-02 13:24] LABS: HCT 19.4 % (34.0-46.0); HGB 5.8 gm/dL (11.4-16.0)
[2021-09-02 13:49] LABS: Platelet Count 72 k/uL (150-450)
[2021-09-02 13:52] LABS: Lymphocytes # (M) 0.31 k/uL (1.0-4.8); Monocytes # (M) 0.77 k/uL (0-1.0); Neutrophils # (M) 14.38 k/uL (1.3-7.7); Neutrophils % (M) 94 %; Nucleated Red Blood Cells 5 /100 WBC (0-0); Total Cells Counted 200; WBC 15.3 k/uL (3.8-10.6)
[2021-09-02 13:53] LABS: Basophilic Stippling Present; Polychromasia Present
--- NOTE | 2021-09-02 13:54 | P.CNPUL ---
History of Present Illness Consult date: 09/02/21 Requesting physician: Lalo Nguyen Reason for consult: other (Acute hypoxic respiratory failure and hypotension) Chief complaint: Weakness, inability to swallow, History of present illness: This is a 75-year-old female with history of multiple medical problems including dementia, COPD, chronic atrial fibrillation, seizure disorder, failure to thrive, hypertension, patient was admitted on 08/11/21, although the patient has been in the hospital over a half dozen times in the last few months with similar issues. Discharged last on 07/28, readmitted on 08/11 and has been in the hospital since then with multiple medical problems, failure to thrive, and this time she had enterococcal bacteremia. She was seen by Dr. Mcbride and by , as well as Dr. Nguyen, and being treated with antibiotics. Recently she had a PEG tube placed, and apparently she had issues of bleeding related to the PEG tube placement over the last couple of days. Patient has been on eliquis which I have placed on hold at present. Today I happened to be seeing the patient next door, and the rapid response team was working on this patient were and the patient was unresponsive, she had very shallow breathing, unable to protect her airways, she was also profoundly hypotensive and could barely get a blood pressure on this patient. The rapid response team asked me to evaluate the patient since she is going to be transferred to the ICU and Dr. Mcbride has no active privileges in the ICU. I evaluated the patient, intubated the patient with a size 7.5 endotracheal tube. Given fluid boluses. Started the patient on norepinephrine. A central line was established patient transferred to the ICU and a left radial arterial line was also placed. Updated the family at bedside on her condition and obviously the patient is septic, and she is on proper antibiotics as per infectious disease on the case. Patient will receive more fluids, and we will continue to follow closely in the ICU. Review of Systems ROS unobtainable: due to endotracheal tube Past Medical History Past Medical History: Atrial Fibrillation, Asthma, COPD, Dementia, Hyperlipidemia, Hypertension, Memory Impairment, Renal Disease, Seizure Disorder, Vascular Disorder Additional Past Medical History / Comment(s): Aortic aneurysm, daughter states past fluid around lung that was drained off, CKD III, nephrolithiasis, UTI/cystitis, one seizure in 2019, anemia, chronic back pain, bilateral ankle edema, FALLS History of Any Multi-Drug Resistant Organisms: None Reported Past Surgical History: Back Surgery, Hysterectomy, Orthopedic Surgery, Tonsillectomy, Tubal Ligation Additional Past Surgical History / Comment(s): D&C, EGD, colonoscopy, L hip hemiarthroplasty d/t fracure, R shoulder surgery d/t fracture-has hardware Past Anesthesia/Blood Transfusion Reactions: Motion Sickness Additional Past Anesthesia/Blood Transfusion Reaction / Comment(s): Pt has clausterphobia. Past Psychological History: Anxiety Additional Psychological History / Comment(s): Pt resides with her daughter, Analisa who is her legal guardian/caregiver. She uses a walker to ambulate. Her daughter is her caregiver, she assists pt with bathing/dressing and manages her medications and also [place]. Smoking Status: Never smoker Past Alcohol Use History: None Reported Past Drug Use History: None Reported - Past Family History Mother Family Medical History: Hypertension Father Family Medical History: Coronary Artery Disease (CAD), Myocardial Infarction ([place]) Additional Family Medical History / Comment(s): Father of a [place] in his 70s. Medications and Allergies Home Medications Medication Instructions Recorded Confirmed Type Montelukast Sodium [Singulair] 10 mg PO HS 10/01/19 08/11/21 History Albuterol Sulfate [Ventolin HFA] 2 puff INHALATION RT-Q4H PRN 05/05/20 08/11/21 History Metoprolol Succinate (ER) [Toprol 25 mg PO BID 02/10/21 08/11/21 History XL] Nitroglycerin Sl Tabs [Nitrostat] 0.4 mg SL Q5M PRN 05/22/21 08/11/21 History predniSONE 10 mg PO DAILY 05/22/21 08/11/21 History Apixaban [Eliquis] 5 mg PO BID 06/10/21 08/11/21 History Atorvastatin [Lipitor] 20 mg PO HS 06/10/21 08/11/21 History Melatonin 10 mg PO HS 06/10/21 08/11/21 History Pantoprazole [Protonix] 40 mg PO DAILY 06/10/21 08/11/21 History Potassium Chloride ER [K-Dur 20] 20 meq PO DAILY 06/10/21 08/11/21 History Budesonide-Formot 160-4.5 Mcg 2 puff INHALATION RT-BID gm 06/11/21 08/11/21 Rx [Symbicort 160-4.5 Mcg Inhaler] Megestrol [Megace] 40 mg PO BID 07/22/21 08/11/21 History Ondansetron [Zofran] 4 mg PO Q8HR PRN 07/22/21 08/11/21 History Amiodarone [Cordarone] See Taper PO DIRECTED 08/11/21 08/11/21 History HYDROcodone/APAP 5-325MG [[place] 1 tab PO TID PRN 08/11/21 08/11/21 History 5-325] Allergies Allergy/AdvReac Type Severity Reaction Status Date / Time levofloxacin Allergy Anaphylaxis Verified 08/11/21 20:09 lisinopril Allergy Unknown Verified 08/11/21 20:09 memantine [From Namenda] Allergy Rash/Hives Verified 08/11/21 20:09 Physical Exam Vitals: Vital Signs Temp Pulse Pulse Pulse Resp BP Pulse Ox 09/02/21 12:10 82 09/02/21 11:59 81 09/02/21 11:58 09/02/21 11:14 09/02/21 11:05 09/02/21 08:00 83 90 18 09/02/21 04:58 97.3 F L 90 18 114/81 99 09/02/21 02:00 18 09/02/21 00:00 97.8 F 84 18 124/82 96 09/01/21 20:00 98.0 F 93 18 120/87 97 09/01/21 14:26 97.8 F 77 18 124/79 97 FiO2 09/02/21 12:10 09/02/21 11:59 09/02/21 11:58 50 09/02/21 11:14 100 09/02/21 11:05 100 09/02/21 08:00 09/02/21 04:58 09/02/21 02:00 09/02/21 00:00 09/01/21 20:00 09/01/21 14:26 Intake and Output 09/01/21 09/02/21 09/02/21 22:59 06:59 14:59 Intake Total 0 Output Total 350 Balance 0 -350 Intake: Oral 0 Output: Urine 350 Other: Voiding Method Indwelling Catheter Indwelling Catheter Indwelling Catheter Weight 64.5 kg Physical Exam: Revealed a 75-year-old female unresponsive to any stimuli, very shallow breathing, Head: Atraumatic, normocephalic. HEENT:[Neck is supple.] [No neck masses.] [No thyromegaly.] [No JVD.] Patient looks pale Chest: [Symmetrical chest expansion diminished breath sounds at the bases no rhonchi and no wheezes] Cardiac Exam: Distant S1 and S2, no S3 gallop, 2/6 systolic murmur thought the precordium. Abdomen: [Soft, nontender, no megaly, no rebound, no guarding, normal bowel sounds.] PEG tube is noted, dressing seems to be saturated with blood around the PEG tube. Extremities: No clubbing edema or cyanosis, no distal pulses could be palpable. Neurological Exam: PERRLA, EOMI, unresponsive to any stimuli. Psychiatric: Cannot assess. Skin: No rashes. Results - Laboratory Findings CBC and BMP: 09/02/21 12:03 09/02/21 12:03 ABG ABG pH 7.43 (7.35-7.45) 09/02/21 11:48 ABG pCO2 36 mmHg (35-45) 09/02/21 11:48 ABG pO2 >400 mmHg (83-108) H 09/02/21 11:48 ABG O2 Saturation 100.0 % (94-97) H 09/02/21 11:48 PT/INR, D-dimer PT 15.0 sec (9.0-12.0) H 09/02/21 12:03 INR 1.5 (<1.2) H 09/02/21 12:03 D-Dimer 0.27 mg/L FEU (<0.60) 08/19/21 17:34 Abnormal lab findings: Abnormal Labs 08/11/21 08/11/21 08/11/21 16:34 16:34 16:34 WBC 15.3 H RBC 3.78 L Hgb Hct MCV 100.8 H MCHC RDW Plt Count Neutrophils # 13.1 H Neutrophils # (Manual) Lymphocytes # Lymphocytes # (Manual) Metamyelocytes # (Man) Myelocytes # (Manual) Nucleated RBCs Macrocytosis PT 12.5 H INR 1.2 H ABG pH ABG pCO2 ABG pO2 ABG HCO3 ABG Total CO2 ABG O2 Saturation Sodium Potassium Chloride Carbon Dioxide BUN Creatinine Glucose POC Glucose (mg/dL) Plasma Lactic Acid Nolberto Calcium Magnesium % Saturation Transferrin Total Bilirubin AST ALT Troponin I Total Protein Albumin Procalcitonin Ur Specific [place] Urine Protein Trace H Urine Ketones Ur Leukocyte Esterase Moderate H Urine WBC 28 H Urine Bacteria Few H Hyaline Casts 16 H Urine Mucus Rare H 08/11/21 08/11/21 08/11/21 16:34 16:34 20:54 WBC RBC Hgb Hct MCV MCHC RDW Plt Count Neutrophils # Neutrophils # (Manual) Lymphocytes # Lymphocytes # (Manual) Metamyelocytes # (Man) Myelocytes # (Manual) Nucleated RBCs Macrocytosis PT INR ABG pH ABG pCO2 ABG pO2 ABG HCO3 ABG Total CO2 ABG O2 Saturation Sodium 134 L Potassium 3.0 L Chloride Carbon Dioxide BUN 18 H Creatinine 1.15 H Glucose 117 H POC Glucose (mg/dL) Plasma Lactic Acid Nolberto Calcium 8.2 L Magnesium % Saturation Transferrin Total Bilirubin 1.6 H AST ALT Troponin I 0.055 H* 0.042 H* Total Protein 5.5 L Albumin 3.0 L Procalcitonin Ur Specific [place] Urine Protein Urine Ketones Ur Leukocyte Esterase Urine WBC Urine Bacteria Hyaline Casts Urine Mucus 08/12/21 08/12/21 08/12/21 00:10 06:21 08:00 WBC RBC 3.58 L Hgb Hct MCV 103.0 H MCHC RDW Plt Count Neutrophils # 8.8 H Neutrophils # (Manual) Lymphocytes # 0.8 L Lymphocytes # (Manual) Metamyelocytes # (Man) Myelocytes # (Manual) Nucleated RBCs Macrocytosis PT INR ABG pH ABG pCO2 ABG pO2 ABG HCO3 ABG Total CO2 ABG O2 Saturation Sodium Potassium Chloride Carbon Dioxide BUN Creatinine Glucose POC Glucose (mg/dL) 119 H Plasma Lactic Acid Nolberto Calcium Magnesium % Saturation Transferrin Total Bilirubin AST ALT Troponin I 0.048 H* Total Protein Albumin Procalcitonin Ur Specific [place] Urine Protein Urine Ketones Ur Leukocyte Esterase Urine WBC Urine Bacteria Hyaline Casts Urine Mucus 08/12/21 08/12/21 08/12/21 08:00 16:46 20:24 WBC RBC Hgb Hct MCV MCHC RDW Plt Count Neutrophils # Neutrophils # (Manual) Lymphocytes # Lymphocytes # (Manual) Metamyelocytes # (Man) Myelocytes # (Manual) Nucleated RBCs Macrocytosis PT INR ABG pH ABG pCO2 ABG pO2 ABG HCO3 ABG Total CO2 ABG O2 Saturation Sodium Potassium Chloride Carbon Dioxide 21 L BUN Creatinine Glucose 120 H POC Glucose (mg/dL) 159 H 155 H Plasma Lactic Acid Nolberto Calcium 7.7 L Magnesium % Saturation Transferrin Total Bilirubin AST ALT Troponin I Total Protein 5.4 L Albumin 2.9 L Procalcitonin Ur Specific [place] Urine Protein Urine Ketones Ur Leukocyte Esterase Urine WBC Urine Bacteria Hyaline Casts Urine Mucus 08/13/21 08/13/21 08/13/21 06:30 12:05 16:37 WBC RBC Hgb Hct MCV MCHC RDW Plt Count Neutrophils # Neutrophils # (Manual) Lymphocytes # Lymphocytes # (Manual) Metamyelocytes # (Man) Myelocytes # (Manual) Nucleated RBCs Macrocytosis PT INR ABG pH ABG pCO2 ABG pO2 ABG HCO3 ABG Total CO2 ABG O2 Saturation Sodium Potassium Chloride Carbon Dioxide BUN Creatinine Glucose POC Glucose (mg/dL) 116 H 131 H 182 H Plasma Lactic Acid Nolberto Calcium Magnesium % Saturation Transferrin Total Bilirubin AST ALT Troponin I Total Protein Albumin Procalcitonin Ur Specific [place] Urine Protein Urine Ketones Ur Leukocyte Esterase Urine WBC Urine Bacteria Hyaline Casts Urine Mucus 08/13/21 08/14/21 08/14/21 20:31 06:28 11:54 WBC RBC Hgb Hct MCV MCHC RDW Plt Count Neutrophils # Neutrophils # (Manual) Lymphocytes # Lymphocytes # (Manual) Metamyelocytes # (Man) Myelocytes # (Manual) Nucleated RBCs Macrocytosis PT INR ABG pH ABG pCO2 ABG pO2 ABG HCO3 ABG Total CO2 ABG O2 Saturation Sodium Potassium Chloride Carbon Dioxide BUN Creatinine Glucose POC Glucose (mg/dL) 157 H 117 H 168 H Plasma Lactic Acid Nolberto Calcium Magnesium % Saturation Transferrin Total Bilirubin AST ALT Troponin I Total Protein Albumin Procalcitonin Ur Specific [place] Urine Protein Urine Ketones Ur Leukocyte Esterase Urine WBC Urine Bacteria Hyaline Casts Urine Mucus 08/14/21 08/14/21 08/15/21 16:43 19:47 07:50 WBC RBC Hgb Hct MCV MCHC RDW Plt Count Neutrophils # Neutrophils # (Manual) Lymphocytes # Lymphocytes # (Manual) Metamyelocytes # (Man) Myelocytes # (Manual) Nucleated RBCs Macrocytosis PT INR ABG pH ABG pCO2 ABG pO2 ABG HCO3 ABG Total CO2 ABG O2 Saturation Sodium Potassium Chloride 108 H Carbon Dioxide BUN 19 H Creatinine Glucose 130 H POC Glucose (mg/dL) 199 H 121 H Plasma Lactic Acid Nolberto Calcium 8.1 L Magnesium % Saturation Transferrin Total Bilirubin AST ALT Troponin I Total Protein Albumin Procalcitonin Ur Specific [place] Urine Protein Urine Ketones Ur Leukocyte Esterase Urine WBC Urine Bacteria Hyaline Casts Urine Mucus 08/15/21 08/15/21 08/15/21 11:56 16:57 21:44 WBC RBC Hgb Hct MCV MCHC RDW Plt Count Neutrophils # Neutrophils # (Manual) Lymphocytes # Lymphocytes # (Manual) Metamyelocytes # (Man) Myelocytes # (Manual) Nucleated RBCs Macrocytosis PT INR ABG pH ABG pCO2 ABG pO2 ABG HCO3 ABG Total CO2 ABG O2 Saturation Sodium Potassium Chloride Carbon Dioxide BUN Creatinine Glucose POC Glucose (mg/dL) 146 H 207 H 227 H Plasma Lactic Acid Nolberto Calcium Magnesium % Saturation Transferrin Total Bilirubin AST ALT Troponin I Total Protein Albumin Procalcitonin Ur Specific [place] Urine Protein Urine Ketones Ur Leukocyte Esterase Urine WBC Urine Bacteria Hyaline Casts Urine Mucus 08/16/21 08/17/21 08/18/21 16:33 20:14 06:17 WBC RBC Hgb Hct MCV MCHC RDW Plt Count Neutrophils # Neutrophils # (Manual) Lymphocytes # Lymphocytes # (Manual) Metamyelocytes # (Man) Myelocytes # (Manual) Nucleated RBCs Macrocytosis PT INR ABG pH ABG pCO2 ABG pO2 ABG HCO3 ABG Total CO2 ABG O2 Saturation Sodium Potassium Chloride Carbon Dioxide BUN Creatinine Glucose POC Glucose (mg/dL) 155 H 117 H 152 H Plasma Lactic Acid Nolberto Calcium Magnesium % Saturation Transferrin Total Bilirubin AST ALT Troponin I Total Protein Albumin Procalcitonin Ur Specific [place] Urine Protein Urine Ketones Ur Leukocyte Esterase Urine WBC Urine Bacteria Hyaline Casts Urine Mucus 08/18/21 08/18/21 08/18/21 11:47 16:44 20:33 WBC RBC Hgb Hct MCV MCHC RDW Plt Count Neutrophils # Neutrophils # (Manual) Lymphocytes # Lymphocytes # (Manual) Metamyelocytes # (Man) Myelocytes # (Manual) Nucleated RBCs Macrocytosis PT INR ABG pH ABG pCO2 ABG pO2 ABG HCO3 ABG Total CO2 ABG O2 Saturation Sodium Potassium Chloride Carbon Dioxide BUN Creatinine Glucose POC Glucose (mg/dL) 165 H 167 H 145 H Plasma Lactic Acid Nolberto Calcium Magnesium % Saturation Transferrin Total Bilirubin AST ALT Troponin I Total Protein Albumin Procalcitonin Ur Specific [place] Urine Protein Urine Ketones Ur Leukocyte Esterase Urine WBC Urine Bacteria Hyaline Casts Urine Mucus 08/19/21 08/19/21 08/20/21 17:34 20:25 08:45 WBC 18.8 H RBC 3.67 L Hgb Hct MCV 104.6 H MCHC RDW Plt Count Neutrophils # 16.9 H Neutrophils # (Manual) Lymphocytes # 0.7 L Lymphocytes # (Manual) Metamyelocytes # (Man) Myelocytes # (Manual) Nucleated RBCs Macrocytosis PT INR ABG pH ABG pCO2 ABG pO2 ABG HCO3 ABG Total CO2 ABG O2 Saturation Sodium Potassium Chloride Carbon Dioxide BUN Creatinine Glucose POC Glucose (mg/dL) 135 H Plasma Lactic Acid Nolberto Calcium Magnesium % Saturation 51.65 H Transferrin 195.0 L Total Bilirubin AST ALT Troponin I Total Protein Albumin Procalcitonin Ur Specific [place] Urine Protein Urine Ketones Ur Leukocyte Esterase Urine WBC Urine Bacteria Hyaline Casts Urine Mucus 08/20/21 08/20/21 08/20/21 08:45 11:45 15:27 WBC RBC Hgb Hct MCV MCHC RDW Plt Count Neutrophils # Neutrophils # (Manual) Lymphocytes # Lymphocytes # (Manual) Metamyelocytes # (Man) Myelocytes # (Manual) Nucleated RBCs Macrocytosis PT INR ABG pH ABG pCO2 ABG pO2 ABG HCO3 ABG Total CO2 ABG O2 Saturation Sodium Potassium Chloride 109 H Carbon Dioxide BUN 21 H Creatinine Glucose 100 H POC Glucose (mg/dL) 119 H 145 H Plasma Lactic Acid Nolberto Calcium Magnesium % Saturation Transferrin Total Bilirubin 1.5 H AST ALT 47 H Troponin I Total Protein 5.1 L Albumin 2.9 L Procalcitonin Ur Specific [place] Urine Protein Urine Ketones Ur Leukocyte Esterase Urine WBC Urine Bacteria Hyaline Casts Urine Mucus 08/20/21 08/20/21 08/21/21 16:58 20:42 07:32 WBC 15.9 H RBC 3.71 L Hgb Hct MCV 106.7 H MCHC 30.8 L RDW Plt Count Neutrophils # 14.8 H Neutrophils # (Manual) Lymphocytes # 0.4 L Lymphocytes # (Manual) Metamyelocytes # (Man) Myelocytes # (Manual) Nucleated RBCs Macrocytosis PT INR ABG pH ABG pCO2 ABG pO2 ABG HCO3 ABG Total CO2 ABG O2 Saturation Sodium Potassium Chloride Carbon Dioxide BUN Creatinine Glucose POC Glucose (mg/dL) 125 H 145 H Plasma Lactic Acid Nolberto Calcium Magnesium % Saturation Transferrin Total Bilirubin AST ALT Troponin I Total Protein Albumin Procalcitonin Ur Specific [place] Urine Protein Urine Ketones Ur Leukocyte Esterase Urine WBC Urine Bacteria Hyaline Casts Urine Mucus 08/21/21 08/21/21 08/21/21 10:22 16:26 20:13 WBC RBC Hgb Hct MCV MCHC RDW Plt Count Neutrophils # Neutrophils # (Manual) Lymphocytes # Lymphocytes # (Manual) Metamyelocytes # (Man) Myelocytes # (Manual) Nucleated RBCs Macrocytosis PT INR ABG pH ABG pCO2 ABG pO2 ABG HCO3 ABG Total CO2 ABG O2 Saturation Sodium Potassium Chloride 108 H Carbon Dioxide BUN 28 H Creatinine 1.20 H Glucose 139 H POC Glucose (mg/dL) 119 H 142 H Plasma Lactic Acid Nolberto Calcium Magnesium % Saturation Transferrin Total Bilirubin 2.9 H AST ALT 48 H Troponin I Total Protein 5.2 L Albumin 3.0 L Procalcitonin Ur Specific [place] Urine Protein Urine Ketones Ur Leukocyte Esterase Urine WBC Urine Bacteria Hyaline Casts Urine Mucus 08/22/21 08/22/21 08/22/21 11:48 16:29 20:38 WBC RBC Hgb Hct MCV MCHC RDW Plt Count Neutrophils # Neutrophils # (Manual) Lymphocytes # Lymphocytes # (Manual) Metamyelocytes # (Man) Myelocytes # (Manual) Nucleated RBCs Macrocytosis PT INR ABG pH ABG pCO2 ABG pO2 ABG HCO3 ABG Total CO2 ABG O2 Saturation Sodium Potassium Chloride Carbon Dioxide BUN Creatinine Glucose POC Glucose (mg/dL) 131 H 197 H 122 H Plasma Lactic Acid Nolberto Calcium Magnesium % Saturation Transferrin Total Bilirubin AST ALT Troponin I Total Protein Albumin Procalcitonin Ur Specific [place] Urine Protein Urine Ketones Ur Leukocyte Esterase Urine WBC Urine Bacteria Hyaline Casts Urine Mucus 08/23/21 08/23/21 08/23/21 06:35 06:35 16:45 WBC 20.7 H RBC 3.27 L Hgb 10.8 L Hct MCV 108.5 H MCHC 30.6 L RDW Plt Count Neutrophils # Neutrophils # (Manual) 19.00 H Lymphocytes # Lymphocytes # (Manual) Metamyelocytes # (Man) 0.21 H Myelocytes # (Manual) 0.21 H Nucleated RBCs Macrocytosis Marked A PT INR ABG pH ABG pCO2 ABG pO2 ABG HCO3 ABG Total CO2 ABG O2 Saturation Sodium Potassium Chloride 109 H Carbon Dioxide BUN 36 H Creatinine 1.31 H Glucose POC Glucose (mg/dL) 135 H Plasma Lactic Acid Nolberto Calcium Magnesium % Saturation Transferrin Total Bilirubin AST ALT Troponin I Total Protein Albumin Procalcitonin Ur Specific [place] Urine Protein Urine Ketones Ur Leukocyte Esterase Urine WBC Urine Bacteria Hyaline Casts Urine Mucus 08/23/21 08/24/21 08/24/21 20:15 06:13 07:25 WBC RBC Hgb Hct MCV MCHC RDW Plt Count Neutrophils # Neutrophils # (Manual) Lymphocytes # Lymphocytes # (Manual) Metamyelocytes # (Man) Myelocytes # (Manual) Nucleated RBCs Macrocytosis PT INR ABG pH ABG pCO2 ABG pO2 ABG HCO3 ABG Total CO2 ABG O2 Saturation Sodium 136 L Potassium Chloride 109 H Carbon Dioxide BUN 42 H Creatinine 1.12 H Glucose 116 H POC Glucose (mg/dL) 191 H 126 H Plasma Lactic Acid Nolberto Calcium Magnesium 2.5 H % Saturation Transferrin Total Bilirubin AST ALT Troponin I Total Protein Albumin Procalcitonin Ur Specific [place] Urine Protein Urine Ketones Ur Leukocyte Esterase Urine WBC Urine Bacteria Hyaline Casts Urine Mucus 08/24/21 08/24/21 08/24/21 12:18 16:43 20:12 WBC RBC Hgb Hct MCV MCHC RDW Plt Count Neutrophils # Neutrophils # (Manual) Lymphocytes # Lymphocytes # (Manual) Metamyelocytes # (Man) Myelocytes # (Manual) Nucleated RBCs Macrocytosis PT INR ABG pH ABG pCO2 ABG pO2 ABG HCO3 ABG Total CO2 ABG O2 Saturation Sodium Potassium Chloride Carbon Dioxide BUN Creatinine Glucose POC Glucose (mg/dL) 169 H 154 H 210 H Plasma Lactic Acid Nolberto Calcium Magnesium % Saturation Transferrin Total Bilirubin AST ALT Troponin I Total Protein Albumin Procalcitonin Ur Specific [place] Urine Protein Urine Ketones Ur Leukocyte Esterase Urine WBC Urine Bacteria Hyaline Casts Urine Mucus 08/25/21 08/25/21 08/25/21 06:07 07:41 07:41 WBC 29.3 H RBC 3.34 L Hgb 11.1 L Hct MCV 107.0 H MCHC RDW 16.0 H Plt Count Neutrophils # Neutrophils # (Manual) 27.84 H Lymphocytes # Lymphocytes # (Manual) 0.88 L Metamyelocytes # (Man) Myelocytes # (Manual) Nucleated RBCs 2 H Macrocytosis Marked A PT INR ABG pH ABG pCO2 ABG pO2 ABG HCO3 ABG Total CO2 ABG O2 Saturation Sodium Potassium Chloride 112 H Carbon Dioxide BUN 44 H Creatinine 1.14 H Glucose 134 H POC Glucose (mg/dL) 136 H Plasma Lactic Acid Nolberto Calcium Magnesium 2.6 H % Saturation Transferrin Total Bilirubin AST 53 H ALT 107 H Troponin I Total Protein 5.0 L Albumin 2.9 L Procalcitonin Ur Specific [place] Urine Protein Urine Ketones Ur Leukocyte Esterase Urine WBC Urine Bacteria Hyaline Casts Urine Mucus 08/25/21 08/25/21 08/25/21 11:28 16:26 20:11 WBC RBC Hgb Hct MCV MCHC RDW Plt Count Neutrophils # Neutrophils # (Manual) Lymphocytes # Lymphocytes # (Manual) Metamyelocytes # (Man) Myelocytes # (Manual) Nucleated RBCs Macrocytosis PT INR ABG pH ABG pCO2 ABG pO2 ABG HCO3 ABG Total CO2 ABG O2 Saturation Sodium Potassium Chloride Carbon Dioxide BUN Creatinine Glucose POC Glucose (mg/dL) 144 H 127 H 159 H Plasma Lactic Acid Nolberto Calcium Magnesium % Saturation Transferrin Total Bilirubin AST ALT Troponin I Total Protein Albumin Procalcitonin Ur Specific [place] Urine Protein Urine Ketones Ur Leukocyte Esterase Urine WBC Urine Bacteria Hyaline Casts Urine Mucus 08/26/21 08/26/21 08/26/21 05:43 07:38 07:38 WBC RBC Hgb Hct MCV MCHC RDW Plt Count Neutrophils # Neutrophils # (Manual) Lymphocytes # Lymphocytes # (Manual) Metamyelocytes # (Man) Myelocytes # (Manual) Nucleated RBCs Macrocytosis PT INR ABG pH ABG pCO2 ABG pO2 ABG HCO3 ABG Total CO2 ABG O2 Saturation Sodium Potassium Chloride 113 H Carbon Dioxide BUN 47 H Creatinine 1.06 H Glucose 126 H POC Glucose (mg/dL) 118 H Plasma Lactic Acid Nolberto Calcium Magnesium 2.7 H % Saturation Transferrin Total Bilirubin AST ALT Troponin I Total Protein Albumin Procalcitonin 0.13 H Ur Specific [place] Urine Protein Urine Ketones Ur Leukocyte Esterase Urine WBC Urine Bacteria Hyaline Casts Urine Mucus 08/26/21 08/26/21 08/26/21 08:54 11:32 16:20 WBC RBC Hgb Hct MCV MCHC RDW Plt Count Neutrophils # Neutrophils # (Manual) Lymphocytes # Lymphocytes # (Manual) Metamyelocytes # (Man) Myelocytes # (Manual) Nucleated RBCs Macrocytosis PT INR ABG pH ABG pCO2 ABG pO2 ABG HCO3 ABG Total CO2 ABG O2 Saturation Sodium Potassium Chloride Carbon Dioxide BUN Creatinine Glucose POC Glucose (mg/dL) 151 H 176 H Plasma Lactic Acid Nolberto Calcium Magnesium % Saturation Transferrin Total Bilirubin AST ALT Troponin I Total Protein Albumin Procalcitonin Ur Specific [place] 1.038 H Urine Protein 1+ H Urine Ketones 1+ H Ur Leukocyte Esterase Urine WBC Urine Bacteria Hyaline Casts Urine Mucus Rare H 08/26/21 08/27/21 08/27/21 21:41 06:34 10:13 WBC 22.4 H RBC 3.03 L Hgb 10.1 L Hct 32.5 L MCV 107.2 H MCHC RDW 16.3 H Plt Count Neutrophils # 21.3 H Neutrophils # (Manual) Lymphocytes # 0.4 L Lymphocytes # (Manual) Metamyelocytes # (Man) Myelocytes # (Manual) Nucleated RBCs Macrocytosis Marked A PT INR ABG pH ABG pCO2 ABG pO2 ABG HCO3 ABG Total CO2 ABG O2 Saturation Sodium Potassium Chloride Carbon Dioxide BUN Creatinine Glucose POC Glucose (mg/dL) 142 H 133 H Plasma Lactic Acid Nolberto Calcium Magnesium % Saturation Transferrin Total Bilirubin AST ALT Troponin I Total Protein Albumin Procalcitonin Ur Specific [place] Urine Protein Urine Ketones Ur Leukocyte Esterase Urine WBC Urine Bacteria Hyaline Casts Urine Mucus 08/27/21 08/27/21 08/27/21 10:13 12:05 16:49 WBC RBC Hgb Hct MCV MCHC RDW Plt Count Neutrophils # Neutrophils # (Manual) Lymphocytes # Lymphocytes # (Manual) Metamyelocytes # (Man) Myelocytes # (Manual) Nucleated RBCs Macrocytosis PT INR ABG pH ABG pCO2 ABG pO2 ABG HCO3 ABG Total CO2 ABG O2 Saturation Sodium Potassium Chloride 112 H Carbon Dioxide BUN 54 H Creatinine Glucose 178 H POC Glucose (mg/dL) 147 H 140 H Plasma Lactic Acid Nolberto Calcium Magnesium 2.7 H % Saturation Transferrin Total Bilirubin AST 73 H ALT 142 H Troponin I Total Protein 4.6 L Albumin 2.7 L Procalcitonin Ur Specific [place] Urine Protein Urine Ketones Ur Leukocyte Esterase Urine WBC Urine Bacteria Hyaline Casts Urine Mucus 08/27/21 08/28/21 08/28/21 19:31 06:31 11:55 WBC RBC Hgb Hct MCV MCHC RDW Plt Count Neutrophils # Neutrophils # (Manual) Lymphocytes # Lymphocytes # (Manual) Metamyelocytes # (Man) Myelocytes # (Manual) Nucleated RBCs Macrocytosis PT INR ABG pH ABG pCO2 ABG pO2 ABG HCO3 ABG Total CO2 ABG O2 Saturation Sodium Potassium Chloride Carbon Dioxide BUN Creatinine Glucose POC Glucose (mg/dL) 146 H 112 H 136 H Plasma Lactic Acid Nolberto Calcium Magnesium % Saturation Transferrin Total Bilirubin AST ALT Troponin I Total Protein Albumin Procalcitonin Ur Specific [place] Urine Protein Urine Ketones Ur Leukocyte Esterase Urine WBC Urine Bacteria Hyaline Casts Urine Mucus 08/28/21 08/28/21 08/29/21 16:57 20:07 07:09 WBC RBC Hgb Hct MCV MCHC RDW Plt Count Neutrophils # Neutrophils # (Manual) Lymphocytes # Lymphocytes # (Manual) Metamyelocytes # (Man) Myelocytes # (Manual) Nucleated RBCs Macrocytosis PT INR ABG pH ABG pCO2 ABG pO2 ABG HCO3 ABG Total CO2 ABG O2 Saturation Sodium Potassium 5.7 H Chloride 113 H Carbon Dioxide BUN 47 H Creatinine Glucose POC Glucose (mg/dL) 188 H 202 H Plasma Lactic Acid Nolberto Calcium Magnesium % Saturation Transferrin Total Bilirubin AST 64 H ALT 173 H Troponin I Total Protein 4.6 L Albumin 2.6 L Procalcitonin Ur Specific [place] Urine Protein Urine Ketones Ur Leukocyte Esterase Urine WBC Urine Bacteria Hyaline Casts Urine Mucus 08/29/21 08/29/21 08/29/21 07:09 11:51 16:41 WBC 21.4 H RBC 3.11 L Hgb 10.3 L Hct 33.4 L MCV 107.3 H MCHC 30.9 L RDW 16.9 H Plt Count 139 L Neutrophils # 20.5 H Neutrophils # (Manual) Lymphocytes # 0.3 L Lymphocytes # (Manual) Metamyelocytes # (Man) Myelocytes # (Manual) Nucleated RBCs Macrocytosis Marked A PT INR ABG pH ABG pCO2 ABG pO2 ABG HCO3 ABG Total CO2 ABG O2 Saturation Sodium Potassium Chloride Carbon Dioxide BUN Creatinine Glucose POC Glucose (mg/dL) 139 H 156 H Plasma Lactic Acid Nolberto Calcium Magnesium % Saturation Transferrin Total Bilirubin AST ALT Troponin I Total Protein Albumin Procalcitonin Ur Specific [place] Urine Protein Urine Ketones Ur Leukocyte Esterase Urine WBC Urine Bacteria Hyaline Casts Urine Mucus 08/29/21 08/30/21 08/30/21 20:20 06:01 11:26 WBC RBC Hgb Hct MCV MCHC RDW Plt Count Neutrophils # Neutrophils # (Manual) Lymphocytes # Lymphocytes # (Manual) Metamyelocytes # (Man) Myelocytes # (Manual) Nucleated RBCs Macrocytosis PT INR ABG pH ABG pCO2 ABG pO2 ABG HCO3 ABG Total CO2 ABG O2 Saturation Sodium Potassium Chloride Carbon Dioxide BUN Creatinine Glucose POC Glucose (mg/dL) 238 H 130 H 134 H Plasma Lactic Acid Nolberto Calcium Magnesium % Saturation Transferrin Total Bilirubin AST ALT Troponin I Total Protein Albumin Procalcitonin Ur Specific [place] Urine Protein Urine Ketones Ur Leukocyte Esterase Urine WBC Urine Bacteria Hyaline Casts Urine Mucus 08/30/21 08/30/21 08/31/21 16:38 19:46 06:00 WBC RBC Hgb Hct MCV MCHC RDW Plt Count Neutrophils # Neutrophils # (Manual) Lymphocytes # Lymphocytes # (Manual) Metamyelocytes # (Man) Myelocytes # (Manual) Nucleated RBCs Macrocytosis PT INR ABG pH ABG pCO2 ABG pO2 ABG HCO3 ABG Total CO2 ABG O2 Saturation Sodium Potassium Chloride Carbon Dioxide BUN Creatinine Glucose POC Glucose (mg/dL) 146 H 197 H 130 H Plasma Lactic Acid Nolberto Calcium Magnesium % Saturation Transferrin Total Bilirubin AST ALT Troponin I Total Protein Albumin Procalcitonin Ur Specific [place] Urine Protein Urine Ketones Ur Leukocyte Esterase Urine WBC Urine Bacteria Hyaline Casts Urine Mucus 08/31/21 08/31/21 08/31/21 11:29 16:43 19:48 WBC RBC Hgb Hct MCV MCHC RDW Plt Count Neutrophils # Neutrophils # (Manual) Lymphocytes # Lymphocytes # (Manual) Metamyelocytes # (Man) Myelocytes # (Manual) Nucleated RBCs Macrocytosis PT INR ABG pH ABG pCO2 ABG pO2 ABG HCO3 ABG Total CO2 ABG O2 Saturation Sodium Potassium Chloride Carbon Dioxide BUN Creatinine Glucose POC Glucose (mg/dL) 151 H 160 H 160 H Plasma Lactic Acid Nolberto Calcium Magnesium % Saturation Transferrin Total Bilirubin AST ALT Troponin I Total Protein Albumin Procalcitonin Ur Specific [place] Urine Protein Urine Ketones Ur Leukocyte Esterase Urine WBC Urine Bacteria Hyaline Casts Urine Mucus 09/01/21 09/01/21 09/01/21 06:10 11:52 16:21 WBC RBC Hgb Hct MCV MCHC RDW Plt Count Neutrophils # Neutrophils # (Manual) Lymphocytes # Lymphocytes # (Manual) Metamyelocytes # (Man) Myelocytes # (Manual) Nucleated RBCs Macrocytosis PT INR ABG pH ABG pCO2 ABG pO2 ABG HCO3 ABG Total CO2 ABG O2 Saturation Sodium Potassium Chloride Carbon Dioxide BUN Creatinine Glucose POC Glucose (mg/dL) 121 H 153 H 139 H Plasma Lactic Acid Nolberto Calcium Magnesium % Saturation Transferrin Total Bilirubin AST ALT Troponin I Total Protein Albumin Procalcitonin Ur Specific [place] Urine Protein Urine Ketones Ur Leukocyte Esterase Urine WBC Urine Bacteria Hyaline Casts Urine Mucus 09/01/21 09/01/21 09/01/21 19:42 19:42 20:21 WBC 29.3 H RBC 2.82 L Hgb 9.5 L Hct 32.3 L MCV 114.5 H D MCHC 29.3 L RDW 17.6 H Plt Count 120 L Neutrophils # Neutrophils # (Manual) 27.84 H Lymphocytes # Lymphocytes # (Manual) 0.59 L Metamyelocytes # (Man) Myelocytes # (Manual) Nucleated RBCs 3 H Macrocytosis Marked A PT INR ABG pH ABG pCO2 ABG pO2 ABG HCO3 ABG Total CO2 ABG O2 Saturation Sodium Potassium 6.4 H* Chloride 111 H Carbon Dioxide BUN 43 H Creatinine Glucose 155 H POC Glucose (mg/dL) 208 H Plasma Lactic Acid Nolberto Calcium Magnesium % Saturation Transferrin Total Bilirubin AST 63 H ALT 134 H Troponin I Total Protein 4.5 L Albumin 2.6 L Procalcitonin Ur Specific [place] Urine Protein Urine Ketones Ur Leukocyte Esterase Urine WBC Urine Bacteria Hyaline Casts Urine Mucus 09/02/21 09/02/21 09/02/21 06:19 08:24 08:24 WBC RBC Hgb Hct MCV MCHC RDW Plt Count Neutrophils # Neutrophils # (Manual) Lymphocytes # Lymphocytes # (Manual) Metamyelocytes # (Man) Myelocytes # (Manual) Nucleated RBCs Macrocytosis PT INR ABG pH ABG pCO2 ABG pO2 ABG HCO3 ABG Total CO2 ABG O2 Saturation Sodium Potassium 5.4 H Chloride 114 H Carbon Dioxide BUN 56 H Creatinine Glucose 146 H POC Glucose (mg/dL) 311 H Plasma Lactic Acid Nolberto 3.4 H* Calcium Magnesium 2.6 H % Saturation Transferrin Total Bilirubin AST 57 H ALT 125 H Troponin I Total Protein 4.0 L Albumin 2.3 L Procalcitonin Ur Specific [place] Urine Protein Urine Ketones Ur Leukocyte Esterase Urine WBC Urine Bacteria Hyaline Casts Urine Mucus 09/02/21 09/02/21 09/02/21 08:59 08:59 09:57 WBC 22.6 H RBC 2.41 L Hgb 8.1 L Hct 27.6 L MCV 114.5 H MCHC 29.2 L RDW 18.1 H Plt Count 125 L Neutrophils # Neutrophils # (Manual) 21.70 H Lymphocytes # Lymphocytes # (Manual) 0.23 L Metamyelocytes # (Man) 0.23 H Myelocytes # (Manual) 0.23 H Nucleated RBCs 5 H Macrocytosis Marked A PT 12.6 H INR 1.2 H ABG pH ABG pCO2 ABG pO2 ABG HCO3 ABG Total CO2 ABG O2 Saturation Sodium Potassium Chloride Carbon Dioxide BUN Creatinine Glucose POC Glucose (mg/dL) 169 H Plasma Lactic Acid Nolberto Calcium Magnesium % Saturation Transferrin Total Bilirubin AST ALT Troponin I Total Protein Albumin Procalcitonin Ur Specific [place] Urine Protein Urine Ketones Ur Leukocyte Esterase Urine WBC Urine Bacteria Hyaline Casts Urine Mucus 09/02/21 09/02/21 09/02/21 10:03 10:36 11:33 WBC RBC Hgb Hct MCV MCHC RDW Plt Count Neutrophils # Neutrophils # (Manual) Lymphocytes # Lymphocytes # (Manual) Metamyelocytes # (Man) Myelocytes # (Manual) Nucleated RBCs Macrocytosis PT INR ABG pH 7.32 L ABG pCO2 53 H ABG pO2 ABG HCO3 27 H ABG Total CO2 29 H ABG O2 Saturation 98.4 H Sodium Potassium Chloride Carbon Dioxide BUN Creatinine Glucose POC Glucose (mg/dL) 160 H 165 H Plasma Lactic Acid Nolberto Calcium Magnesium % Saturation Transferrin Total Bilirubin AST ALT Troponin I Total Protein Albumin Procalcitonin Ur Specific [place] Urine Protein Urine Ketones Ur Leukocyte Esterase Urine WBC Urine Bacteria Hyaline Casts Urine Mucus 09/02/21 09/02/21 09/02/21 11:48 12:03 12:03 WBC 16.1 H RBC 1.74 L Hgb 5.8 L* D Hct 19.4 L* MCV 111.8 H MCHC 29.7 L RDW 17.8 H Plt Count Neutrophils # Neutrophils # (Manual) Lymphocytes # Lymphocytes # (Manual) Metamyelocytes # (Man) Myelocytes # (Manual) Nucleated RBCs Macrocytosis Marked A PT 15.0 H INR 1.5 H ABG pH ABG pCO2 ABG pO2 >400 H ABG HCO3 ABG Total CO2 25 H ABG O2 Saturation 100.0 H Sodium Potassium Chloride Carbon Dioxide BUN Creatinine Glucose POC Glucose (mg/dL) Plasma Lactic Acid Nolberto Calcium Magnesium % Saturation Transferrin Total Bilirubin AST ALT Troponin I Total Protein Albumin Procalcitonin Ur Specific [place] Urine Protein Urine Ketones Ur Leukocyte Esterase Urine WBC Urine Bacteria Hyaline Casts Urine Mucus 09/02/21 09/02/21 09/02/21 12:03 12:03 12:04 WBC RBC Hgb Hct MCV MCHC RDW Plt Count Neutrophils # Neutrophils # (Manual) Lymphocytes # Lymphocytes # (Manual) Metamyelocytes # (Man) Myelocytes # (Manual) Nucleated RBCs Macrocytosis PT INR ABG pH ABG pCO2 ABG pO2 ABG HCO3 ABG Total CO2 ABG O2 Saturation Sodium Potassium Chloride 118 H Carbon Dioxide BUN 53 H Creatinine Glucose 115 H POC Glucose (mg/dL) 133 H Plasma Lactic Acid Nolberto 2.7 H* Calcium 7.5 L Magnesium % Saturation Transferrin Total Bilirubin AST 88 H ALT 144 H Troponin I Total Protein 2.7 L Albumin 1.4 L Procalcitonin Ur Specific [place] Urine Protein Urine Ketones Ur Leukocyte Esterase Urine WBC Urine Bacteria Hyaline Casts Urine Mucus - Diagnostic Findings Chest x-ray: image reviewed (Endotracheal tube is in the right proper position, no evidence of infiltrate and no evidence of congestive heart failure) Additional studies: Abdominal flat film was reviewed, basically unremarkable, nondiagnostic Assessment and Plan Assessment: Impression: Acute hypoxic respiratory failure secondary to sepsis, activity anemia, and suspect septic shock. Acute blood loss anemia secondary to bleeding at the PEG tube site. Failure to thrive. Urinary tract infection History of dementia Electrolytes imbalance Chronic atrial fibrillation Acute kidney injury Elevated troponin Normal pressure hydrocephalus History of hypertension Recommendation: Patient was intubated at bedside. Patient had a central line place. Started patient on the fluid boluses and on norepinephrine Will transfer the patient to the ICU and will establish arterial line placement Will continue present antibiotics as per infectious disease on the case. Hold on feeding for now since the PEG tube is having issues with losing. Transfuse for low hemoglobin below 7. Updated family on her condition, patient is critical. We'll continue to follow while in the ICU. Prognosis is very poor. Family was made aware. We'll continue to follow. Critical care time is over 55 minutes not including the time spent on procedures. Time with Patient: Greater than 30
--- NOTE | 2021-09-02 14:32 | CDI ---
Documentation Clarification Form Date: 08/24/2021 10:57:00 AM From: Peggy Bran RN, CCDS Admit Date: 08/11/2021 06:34:00 PM Patient Name: Lisbet Dobbins Visit Number: [id number] Discharge Date: ATTENTION: The Clinical Documentation Specialists (CDI) and [facility] Coding Staff appreciate your assistance in clarifying documentation. Please respond to the clarification below the line at the bottom and electronically sign. The CDI & [facility] Coding staff will review the response and follow-up if needed. Please note: Queries are made part of the Legal Health Record. If you have any questions, please contact the author of this message via ITS. Dr. Lalo Nguyen The patient presented with the following clinical indicators. Additional clarification regarding the etiology/cause of the clinical indicators is requested. History/Risk Factors: atrial fibrillation, Asthma, COPD, Hypertension, Renal Disease, Seizure Disorder UTI/cystitis Clinical Indicators: 75-year-old female presented with weakness over the past several days. She had metabolic encephalopathy suspected from acute UTI and her advance dementia. She was ruled in for UTI with urine cultures positive for E coli. 08/15&08/16 progress notes by covering physician has UTI/Sepsis and clarification is requested. 08/11 WBC: 15.3, BUN 18, CR 1.15 08/11 Lactic acid: 2.0 Urinalysis: Ur Leukocyte Esterase Moderate, Hyaline Casts 16, Urine Bacteria Few 08/11 Urine Culture Escherichia coli 08/11 Vital signs: 122/78 84 16 97.8 97 % RA Treatment: Cardiac/Telemetry monitoring Rocephin 1,000 MG IVP Stat 08/11, then 1 GM IVPB Q 24 HRS 08/12-08/19 Zosyn 3.375 GM IVPB Q 8 HRS 08/20-08/24 In your professional opinion, please clarify if these findings signify one of the following conditions: [ ] Sepsis POA [ ] Sepsis, Not POA [ ] Sepsis ruled out [ ] Other, please specify [ ] Unable to determine SIRS Criteria: 2 or more of the following may indicate SIRS -Temperature < 96.8F (36C) or > 101.0F (38.3C) -Heart Rate > 90 bpm -Respiratory Rate > 20 breaths/min or PaCO2 < 32 mmHg -White Blood Cell Count > 12,000 or < 4,000 cells/mm3 or > 10% bands (Template Last Reviewed: March 2020) [facility]
[2021-09-02] MEDS: CHLORHEXIDINE GLUCONATE 15 ML CUP MUCOUS MEM SCH ×2 (15:35→20:04)
[2021-09-02] MEDS: FLUCONAZOLE 100 MG TAB PO SCH (16:29)
[2021-09-02] MEDS: KETOTIFEN 0.025% OPHTH DROPS 5 ML BTL BOTH EYES SCH ×2 (16:29→20:12)
[2021-09-02 17:31] LABS: Glucose,Whole Blood 163 mg/dL (70-110)
[2021-09-02] MEDS: AMIODARONE 450 MG in DEXTROSE 5% IN WATER 250 ML IV SCH ×2 (18:55)
[2021-09-02] MEDS ORDERED: SODIUM CHLORIDE 0.9% 500 ML 500 ML IV ONE (19:53)
[2021-09-02] MEDS: MONTELUKAST 10 MG TAB PO SCH ×2 (20:04→20:12)
--- NOTE | 2021-09-02 21:53 | P.PN ---
Subjective Progress Note Date: 08/31/21 Principal diagnosis: Leukocytosis and bacteremia Patient is a 75-year-old -[place] female initially presented to hospital on 08/11/2021 for increasing weakness slurred speech with concern for possible CVA patient has been on steroids and Zosyn per pulmonary patient was noticed to have elevated white count that prompted this infectious disease consultation. On today's evaluation that is 08/31/2021, the patient continues to be afebrile, patient is breathing comfortably on nasal cannula oxygen, the patient denies chest pain or shortness of breath, the patient denies any worsening cough or sputum production no abdominal pain and no diarrhea has been reported Objective - Vital Signs Vital signs: Vital Signs Temp 98.0 F 08/31/21 12:21 Pulse 70 08/31/21 12:21 Resp 18 08/31/21 14:25 BP 124/79 08/31/21 12:21 Pulse Ox 95 08/31/21 12:21 FiO2 21 08/30/21 19:21 Intake & Output 08/30/21 08/31/21 08/31/21 18:59 06:59 18:59 Intake Total 0 10 Output Total 240 325 Balance -240 -315 Weight 64.5 kg Intake: IV 10 Invasive Line 3 10 Oral 0 Output: Urine 240 325 Other: Voiding Method Indwelling Catheter Indwelling Catheter Indwelling Catheter # Bowel Movements 1 - Exam GENERAL DESCRIPTION: Elderly female lying in bed, no distress. No tachypnea or accessory muscle of respiration use. LUNGS: Unlabored breathing. Decreased breath sound the base HEART: S1, S2, regular rate and rhythm. ABDOMEN: Soft, no tenderness , guarding or rigidity, no organomegaly EXTREMITIES: No edema of feet. - Labs CBC & Chem 7: 09/02/21 12:03 09/02/21 12:03 Labs: Abnormal Lab Results - Last 24 Hours (Table) 08/30/21 08/30/21 08/31/21 Range/Units 16:38 19:46 06:00 POC Glucose (mg/dL) 146 H 197 H 130 H (70-110) mg/dL 08/31/21 Range/Units 11:29 POC Glucose (mg/dL) 151 H (70-110) mg/dL Microbiology - Last 24 Hours (Table) 08/27/21 14:45 Blood Culture - Preliminary Blood No Growth after 72 hours Assessment and Plan (1) Leukocytosis Current Visit: Yes Status: Acute Code(s): D72.829 - ELEVATED WHITE BLOOD CELL COUNT, UNSPECIFIED SNOMED Code(s): 219469803 (2) Bacteremia Current Visit: Yes Status: Acute Code(s): R78.81 - BACTEREMIA SNOMED Code(s): 1438857 Plan: 1patient with a leukocytosis in this patient has been in the hospital for more than 2 weeks now with initial admission to the hospital with weakness patient did not have any fever last chest x-ray 3 days ago did not show any evidence of pneumonia urine has been negative abdominal soft clinical examination no diarrhea reported by the nursing staff elevated white and more likely related to steroids plus minus oropharyngeal candidiasis, 2patient with Enterococcus bacteremia which usually of gut or urinary source however the UA on 08/26/2020 was negative, blood cultures repeated so far negat mirta, CT abdominal pelvis did not show any acute abnormality, echocardiogram did not show any vegetation possible transient bacteremia from either GI or urinary source 3- patient to continue with vancomycin and monitor kidney function closely Time with Patient: Less than 30
--- NOTE | 2021-09-02 21:55 | P.PN ---
Subjective Progress Note Date: 09/01/21 Principal diagnosis: Leukocytosis and bacteremia Patient is a 75-year-old -[place] female initially presented to hospital on 08/11/2021 for increasing weakness slurred speech with concern for possible CVA patient has been on steroids and Zosyn per pulmonary patient was noticed to have elevated white count that prompted this infectious disease consultation. Patient UA was negative. CT Abdominal pelvis didn't mention any abnormality echocardiogram negative for any vegetation On today's evaluation that is 09/01/2021, the patient remains to be afebrile, patient is breathing comfortably on nasal cannula oxygen, the patient sleepy lethargic and did not provide any history no vomiting or diarrhea has been reported by the nursing staff Objective - Vital Signs Vital signs: Vital Signs Temp 97.8 F 09/01/21 08:34 Pulse 85 09/01/21 08:34 Resp 18 09/01/21 08:34 BP 139/85 09/01/21 08:34 Pulse Ox 98 09/01/21 08:34 FiO2 21 08/30/21 19:21 Intake & Output 08/31/21 09/01/21 09/01/21 18:59 06:59 18:59 Intake Total 380 Output Total 250 Balance 130 Weight 64.5 kg Intake: IV 200 Oral 180 Output: Urine 250 Other: Voiding Method Indwelling Catheter Indwelling Catheter Indwelling Catheter - Exam GENERAL DESCRIPTION: Elderly female lying in bed, no distress. No tachypnea or accessory muscle of respiration use. LUNGS: Unlabored breathing. Decreased breath sound the base HEART: S1, S2, regular rate and rhythm. ABDOMEN: Soft, no tenderness , guarding or rigidity, no organomegaly EXTREMITIES: No edema of feet. - Labs CBC & Chem 7: 09/02/21 12:03 09/02/21 12:03 Labs: Abnormal Lab Results - Last 24 Hours (Table) 08/31/21 08/31/21 09/01/21 Range/Units 16:43 19:48 06:10 POC Glucose (mg/dL) 160 H 160 H 121 H (70-110) mg/dL 09/01/21 Range/Units 11:52 POC Glucose (mg/dL) 153 H (70-110) mg/dL Microbiology - Last 24 Hours (Table) 08/27/21 14:45 Blood Culture - Preliminary Blood No Growth after 96 hours Assessment and Plan (1) Leukocytosis Current Visit: Yes Status: Acute Code(s): D72.829 - ELEVATED WHITE BLOOD CELL COUNT, UNSPECIFIED SNOMED Code(s): 138233735 (2) Bacteremia Current Visit: Yes Status: Acute Code(s): R78.81 - BACTEREMIA SNOMED Code(s): 2559741 Plan: 1patient with Enterococcus bacteremia which usually of gut or urinary source h owever the UA on 08/26/2020 was negative, blood cultures repeated so far negative, CT abdominal pelvis did not show any acute abnormality, echocardiogram did not show any vegetation possible transient bacteremia from either GI or urinary source 2- patient to continue with vancomycin and monitor kidney function closely , continue supportive care Time with Patient: Less than 30
--- NOTE | 2021-09-02 21:59 | P.PN ---
Subjective Progress Note Date: 09/02/21 Principal diagnosis: Leukocytosis and bacteremia Patient is a 75-year-old -Chinese female initially presented to hospital on 08/11/2021 for increasing weakness slurred speech with concern for possible CVA patient has been on steroids and Zosyn per pulmonary patient was noticed to have elevated white count that prompted this infectious disease consultation. Patient UA was negative. CT Abdominal pelvis didn't mention any abnormality echocardiogram negative for any vegetation On today's evaluation that is 09/02/2021, the patient continues to be afebrile, patient is sleepy lethargic and did not provide any history, A team was called in this morning and the patient returns in the ICU patient subsequently has been intubated on the vent no vomiting or diarrhea has been reported Objective - Vital Signs Vital signs: Vital Signs Temp 97.3 F L 09/02/21 04:58 Pulse 82 09/02/21 12:10 Resp 18 09/02/21 04:58 BP 114/81 09/02/21 04:58 Pulse Ox 99 09/02/21 04:58 FiO2 50 09/02/21 11:58 Intake & Output 09/01/21 09/02/21 09/02/21 18:59 06:59 18:59 Intake Total 380 0 Output Total 250 350 Balance 130 -350 Weight 64.5 kg Intake: IV 200 Oral 180 0 Output: Urine 250 350 Other: Voiding Method Indwelling Catheter Indwelling Catheter - Exam GENERAL DESCRIPTION: Elderly female intubated on the vent LUNGS: Unlabored breathing. Decreased breath sound the base HEART: S1, S2, regular rate and rhythm. ABDOMEN: Soft, no tenderness , guarding or rigidity, no organomegaly EXTREMITIES: No edema of feet. - Labs CBC & Chem 7: 09/02/21 12:03 09/02/21 12:03 Labs: Abnormal Lab Results - Last 24 Hours (Table) 09/01/21 09/01/21 09/01/21 Range/Units 16:21 19:42 19:42 WBC 29.3 H (3.8-10.6) k/uL RBC 2.82 L (3.80-5.40) m/uL Hgb 9.5 L (11.4-16.0) gm/dL Hct 32.3 L (34.0-46.0) % MCV 114.5 H D (80.0-100.0) fL MCHC 29.3 L (31.0-37.0) g/dL RDW 17.6 H (11.5-15.5) % Plt Count 120 L (150-450) k/uL Neutrophils # (Manual) 27.84 H (1.3-7.7) k/uL Lymphocytes # (Manual) 0.59 L (1.0-4.8) k/uL Metamyelocytes # (Man) (0) k/uL Myelocytes # (Manual) (0) k/uL Nucleated RBCs 3 H (0-0) /100 WBC Macrocytosis Marked A PT (9.0-12.0) sec INR (<1.2) ABG pH (7.35-7.45) ABG pCO2 (35-45) mmHg ABG pO2 (83-108) mmHg ABG HCO3 (21-25) mmol/L ABG Total CO2 (19-24) mmol/L ABG O2 Saturation (94-97) % Potassium 6.4 H* (3.5-5.1) mmol/L Chloride 111 H (98-107) mmol/L BUN 43 H (7-17) mg/dL Glucose 155 H (74-99) mg/dL POC Glucose (mg/dL) 139 H (70-110) mg/dL Plasma Lactic Acid Nolberto (0.7-2.0) mmol/L Magnesium (1.6-2.3) mg/dL AST 63 H (14-36) U/L ALT 134 H (4-34) U/L Total Protein 4.5 L (6.3-8.2) g/dL Albumin 2.6 L (3.5-5.0) g/dL 09/01/21 09/02/21 09/02/21 Range/Units 20:21 06:19 08:24 WBC (3.8-10.6) k/uL RBC (3.80-5.40) m/uL Hgb (11.4-16.0) gm/dL Hct (34.0-46.0) % MCV (80.0-100.0) fL MCHC (31.0-37.0) g/dL RDW (11.5-15.5) % Plt Count (150-450) k/uL Neutrophils # (Manual) (1.3-7.7) k/uL Lymphocytes # (Manual) (1.0-4.8) k/uL Metamyelocytes # (Man) (0) k/uL Myelocytes # (Manual) (0) k/uL Nucleated RBCs (0-0) /100 WBC Macrocytosis PT (9.0-12.0) sec INR (<1.2) ABG pH (7.35-7.45) ABG pCO2 (35-45) mmHg ABG pO2 (83-108) mmHg ABG HCO3 (21-25) mmol/L ABG Total CO2 (19-24) mmol/L ABG O2 Saturation (94-97) % Potassium 5.4 H (3.5-5.1) mmol/L Chloride 114 H (98-107) mmol/L BUN 56 H (7-17) mg/dL Glucose 146 H (74-99) mg/dL POC Glucose (mg/dL) 208 H 311 H (70-110) mg/dL Plasma Lactic Acid Nolberto (0.7-2.0) mmol/L Magnesium 2.6 H (1.6-2.3) mg/dL AST 57 H (14-36) U/L ALT 125 H (4-34) U/L Total Protein 4.0 L (6.3-8.2) g/dL Albumin 2.3 L (3.5-5.0) g/dL 09/02/21 09/02/21 09/02/21 Range/Units 08:24 08:59 08:59 WBC 22.6 H (3.8-10.6) k/uL RBC 2.41 L (3.80-5.40) m/uL Hgb 8.1 L (11.4-16.0) gm/dL Hct 27.6 L (34.0-46.0) % MCV 114.5 H (80.0-100.0) fL MCHC 29.2 L (31.0-37.0) g/dL RDW 18.1 H (11.5-15.5) % Plt Count 125 L (150-450) k/uL Neutrophils # (Manual) 21.70 H (1.3-7.7) k/uL Lymphocytes # (Manual) 0.23 L (1.0-4.8) k/uL Metamyelocytes # (Man) 0.23 H (0) k/uL Myelocytes # (Manual) 0.23 H (0) k/uL Nucleated RBCs 5 H (0-0) /100 WBC Macrocytosis Marked A PT 12.6 H (9.0-12.0) sec INR 1.2 H (<1.2) ABG pH (7.35-7.45) ABG pCO2 (35-45) mmHg ABG pO2 (83-108) mmHg ABG HCO3 (21-25) mmol/L ABG Total CO2 (19-24) mmol/L ABG O2 Saturation (94-97) % Potassium (3.5-5.1) mmol/L Chloride (98-107) mmol/L BUN (7-17) mg/dL Glucose (74-99) mg/dL POC Glucose (mg/dL) (70-110) mg/dL Plasma Lactic Acid Nolberto 3.4 H* (0.7-2.0) mmol/L Magnesium (1.6-2.3) mg/dL AST (14-36) U/L ALT (4-34) U/L Total Protein (6.3-8.2) g/dL Albumin (3.5-5.0) g/dL 09/02/21 09/02/21 09/02/21 Range/Units 09:57 10:03 10:36 WBC (3.8-10.6) k/uL RBC (3.80-5.40) m/uL Hgb (11.4-16.0) gm/dL Hct (34.0-46.0) % MCV (80.0-100.0) fL MCHC (31.0-37.0) g/dL RDW (11.5-15.5) % Plt Count (150-450) k/uL Neutrophils # (Manual) (1.3-7.7) k/uL Lymphocytes # (Manual) (1.0-4.8) k/uL Metamyelocytes # (Man) (0) k/uL Myelocytes # (Manual) (0) k/uL Nucleated RBCs (0-0) /100 WBC Macrocytosis PT (9.0-12.0) sec INR (<1.2) ABG pH 7.32 L (7.35-7.45) ABG pCO2 53 H (35-45) mmHg ABG pO2 (83-108) mmHg ABG HCO3 27 H (21-25) mmol/L ABG Total CO2 29 H (19-24) mmol/L ABG O2 Saturation 98.4 H (94-97) % Potassium (3.5-5.1) mmol/L Chloride (98-107) mmol/L BUN (7-17) mg/dL Glucose (74-99) mg/dL POC Glucose (mg/dL) 169 H 160 H (70-110) mg/dL Plasma Lactic Acid Nolberto (0.7-2.0) mmol/L Magnesium (1.6-2.3) mg/dL AST (14-36) U/L ALT (4-34) U/L Total Protein (6.3-8.2) g/dL Albumin (3.5-5.0) g/dL 09/02/21 09/02/21 09/02/21 Range/Units 11:33 11:48 12:04 WBC (3.8-10.6) k/uL RBC (3.80-5.40) m/uL Hgb (11.4-16.0) gm/dL Hct (34.0-46.0) % MCV (80.0-100.0) fL MCHC (31.0-37.0) g/dL RDW (11.5-15.5) % Plt Count (150-450) k/uL Neutrophils # (Manual) (1.3-7.7) k/uL Lymphocytes # (Manual) (1.0-4.8) k/uL Metamyelocytes # (Man) (0) k/uL Myelocytes # (Manual) (0) k/uL Nucleated RBCs (0-0) /100 WBC Macrocytosis PT (9.0-12.0) sec INR (<1.2) ABG pH (7.35-7.45) ABG pCO2 (35-45) mmHg ABG pO2 >400 H (83-108) mmHg ABG HCO3 (21-25) mmol/L ABG Total CO2 25 H (19-24) mmol/L ABG O2 Saturation 100.0 H (94-97) % Potassium (3.5-5.1) mmol/L Chloride (98-107) mmol/L BUN (7-17) mg/dL Glucose (74-99) mg/dL POC Glucose (mg/dL) 165 H 133 H (70-110) mg/dL Plasma Lactic Acid Nolberto (0.7-2.0) mmol/L Magnesium (1.6-2.3) mg/dL AST (14-36) U/L ALT (4-34) U/L Total Protein (6.3-8.2) g/dL Albumin (3.5-5.0) g/dL Microbiology - Last 24 Hours (Table) 08/27/21 14:45 Blood Culture - Preliminary Blood No Growth after 120 hours Assessment and Plan (1) Leukocytosis Current Visit: Yes Status: Acute Code(s): D72.829 - ELEVATED WHITE BLOOD CELL COUNT, UNSPECIFIED SNOMED Code(s): 611862222 (2) Bacteremia Current Visit: Yes Status: Acute Code(s): R78.81 - BACTEREMIA SNOMED Code(s): 9962013 Plan: 1patient with Enterococcus bacteremia which usually of gut or urinary source however the UA on 08/26/2020 was negative, blood cultures repeated so far negative, CT abdominal pelvis did not show any acute abnormality, echocardiogram did not show any vegetation possible transient bacteremia from either GI or urinary source 2- patient now with the worsening of her clinical condition and drop in hemoglobin questionably from the PEG tube site, patient Eliquis has been put on hold, blood and sputum culture has been requested we will add Zosyn to cover for gram-negative coverage and switch vancomycin to daptomycin to decrease risk of nephrotoxicity, prognosis remains very guarded Time with Patient: Less than 30
[2021-09-02] MEDS: PIPERACILLIN-TAZOBACTAM 3.375 GM in SODIUM CHLORIDE 0.9% 100 ML IVPB SCH (22:57)
[2021-09-02 23:26] LABS: Anisocytosis Slight; HCT 33.6 % (34.0-46.0); Hypochromasia Moderate; MCH 34.9 pg (25.0-35.0); MCHC 32.6 g/dL (31.0-37.0); Macrocytosis Marked; Mean Platelet Volume 9.3; Poikilocytosis Slight; RBC 3.15 m/uL (3.80-5.40); RDW 18.4 % (11.5-15.5); WBC 16.7 k/uL (3.8-10.6)
[2021-09-02 23:36] LABS: MCV 106.8 fL (80.0-100.0); Platelet Count 65 k/uL (150-450)
[2021-09-02] MEDS: SODIUM CHLORIDE 0.9% IVPB SCH (23:54)
[2021-09-02] MEDS: DAPTOMYCIN IVPB SCH (23:54)
[2021-09-03] LABS: Glucose,Whole Blood 100 mg/dL (70-110)
[2021-09-03] MEDS: IPRATROPIUM-ALBUTEROL 3 ML NEB INHALATION SCH ×6 (03:31→23:04)
[2021-09-03 04:35] LABS: Anisocytosis Slight; HCT 35.5 % (34.0-46.0); HGB 11.3 gm/dL (11.4-16.0); Hypochromasia Marked; MCH 33.8 pg (25.0-35.0); MCHC 31.9 g/dL (31.0-37.0); MCV 106.1 fL (80.0-100.0); Macrocytosis Marked; Mean Platelet Volume 9.5; Poikilocytosis Moderate; RBC 3.34 m/uL (3.80-5.40); RDW 18.7 % (11.5-15.5)
[2021-09-03 04:51] LABS: ALT 214 U/L (4-34); AST 111 U/L (14-36); African American GFR (CKD) >90 (>60 ml/min/1.73 sqM); Albumin 1.8 g/dL (3.5-5.0); Alkaline Phosphatase 60 U/L (38-126); Anion Gap 3 mmol/L; Blood Urea Nitrogen 43 mg/dL (7-17); Calcium 7.5 mg/dL (8.4-10.2); Carbon Dioxide 21 mmol/L (22-30); Chloride 116 mmol/L (98-107); Glucose 134 mg/dL (74-99); Non-African American GFR(CKD) 89 (>60 ml/min/1.73 sqM); Potassium 3.8 mmol/L (3.5-5.1); Sodium 140 mmol/L (137-145); Total Bilirubin 0.9 mg/dL (0.2-1.3); Total Protein 3.3 g/dL (6.3-8.2)
[2021-09-03 05:09] LABS: Platelet Count 61 k/uL (150-450)
[2021-09-03 05:15] LABS: Band Neutrophils % 2 %; Eosinophils # (M) 0.14 k/uL (0-0.7); Metamyelocytes # (M) 0.14 k/uL (0); Metamyelocytes % 1 %; Monocytes # (M) 0.14 k/uL (0-1.0); Neutrophils % (M) 94 %; Nucleated Red Blood Cells 1 /100 WBC (0-0); Total Cells Counted 200
[2021-09-03 05:16] LABS: Lymphocytes # (M) 0.56 k/uL (1.0-4.8); Polychromasia Present; WBC 14.1 k/uL (3.8-10.6)
[2021-09-03 05:31] LABS: Glucose,Whole Blood 138 mg/dL (70-110)
[2021-09-03 05:34] LABS: Glucose,Whole Blood 137 mg/dL (70-110)
[2021-09-03] MEDS: INSULIN ASPART (NovoLOG) 100 UNIT/ML VIAL SQ SCH ×4 (05:43→17:34)
[2021-09-03] MEDS: PIPERACILLIN-TAZOBACTAM 3.375 GM in SODIUM CHLORIDE 0.9% 100 ML IVPB SCH ×3 (05:45→21:49)
[2021-09-03] MEDS: SODIUM CHLORIDE 0.9% 1,000 ML IV SCH ×2 (05:45→09:00)
[2021-09-03 05:51] LABS: ABG Base Excess -4.2 mmol/L; ABG HCO3 21 mmol/L (21-25); ABG Oxygen Saturation 99.9 % (94-97); ABG PCO2 36 mmHg (35-45); ABG PH 7.38 (7.35-7.45); ABG PO2 183 mmHg (83-108); ABG TCO2 22 mmol/L (19-24); Allen Test Performed? Yes
--- NOTE | 2021-09-03 07:27 | XR ---
EXAMINATION TYPE: XR chest 1V portable DATE OF EXAM: 09/03/2021 Comparison: 09/02/2021 Clinical History: 75-year-old female Tube placement Findings: ET tube satisfactory. Prominent skin folds projecting over the superior thorax and right side of the chest. Patient is semierect rate and lordotic in position. Heart appears borderline in size. There ap pear to be increasing small to moderate right and small left pleural effusions with increasing bibasi lar opacities as well. Atherosclerotic arch calcifications. Impression: 1. Limited semiupright and lordotic view. 2. Increasing [id number] right and small left pleural effusions. Increasing adjacent atelectas is and/or consolidation, particularly on the right.
[2021-09-03] MEDS: SYMBICORT 160-4.5 MCG INHALER INHALATION SCH ×3 (07:44→19:49)
[2021-09-03] MEDS ORDERED: FUROSEMIDE 10 MG/ML 2 ML VIAL IV ONE (08:47)
[2021-09-03] MEDS ORDERED: ENOXAPARIN 40 MG/0.4 ML SYRINGE SQ SCH (09:00)
[2021-09-03] MEDS ORDERED: FUROSEMIDE 10 MG/ML 4 ML VIAL IV STA (09:02)
[2021-09-03] MEDS: FLUCONAZOLE 100 MG TAB PO SCH (09:17)
[2021-09-03] MEDS: PANTOPRAZOLE 40 MG/10 ML VIAL IVP SCH (09:17)
[2021-09-03] MEDS: CHLORHEXIDINE GLUCONATE 15 ML CUP MUCOUS MEM SCH ×2 (09:17→21:51)
[2021-09-03] MEDS: APIXABAN 5 MG TAB PO SCH ×2 (09:17→21:50)
[2021-09-03] MEDS: KETOTIFEN 0.025% OPHTH DROPS 5 ML BTL BOTH EYES SCH ×2 (09:20→21:53)
[2021-09-03] MEDS: ALBUMIN HUMAN 25% 50 ML in EMPTY BAG 1 BAG IVPB SCH ×2 (09:20→10:07)
--- NOTE | 2021-09-03 09:30 | PN ---
PROGRESS NOTE 75-year-old white female, worsening respiratory distress, hypokalemia, dehydration, elevated troponin. The patient was sent to the ICU and intubated due to worsening respiratory failure. Dr. Grider the [employer] at this point. Cardiovascular S1, S2. Lungs scattered wheeze. Hematology negative Homans. Psych: Fair mood and affect. She is obtunded on the vent. ASSESSMENT: 1. Acute hypoxemic respiratory failure secondary to chronic obstructive pulmonary disease exacerbation. 2. Leukocytosis of unclear etiology. 3. Bacteremia of unclear etiology. 4. She has pulmonary fibrosis. 5. She has some mild dementia possible hydrocephalus. PROGNOSIS: Extremely guarded. Please see further orders from the ICU with Dr. Grider. Prognosis extremely guarded in ICU. MMODL / IJN: [id number] /
--- NOTE | 2021-09-03 09:31 | P.PN ---
Subjective Patient is seen in follow-up for acute kidney injury and hyperkalemia. Potassium level is now normal. GFR at baseline. Intubated. On amiodarone drip. Nonoliguric. Hemoglobin improved post blood transfusion. No active bleeding per the nurse. Receiving tube feeds. Off vasopressors. Vital signs are stable. HEENT: Intubated. LUNGS: Breath sounds decreased. HEART: Irregular rate and rhythm. ABDOMEN: Soft, no distention. EXTREMITITES: 2+ edema. Objective - Vital Signs Vital signs: Vital Signs Temp 99 F 09/03/21 08:00 Pulse 106 H 09/03/21 09:00 Resp 23 09/03/21 09:00 BP 108/90 09/02/21 23:15 Pulse Ox 98 09/03/21 09:00 FiO2 30 09/03/21 09:00 Intake & Output 09/02/21 09/03/21 09/03/21 18:59 06:59 18:59 Intake Total 2817.901 2040.677 310 Output Total 345 318 82 Balance 2472.901 1722.677 228 Weight 64.5 kg 69.3 kg Intake: IV 2300 1500 300 Sodium Chloride 0.9% 1, 300 1500 300 000 ml @ 100 mls/hr IV . Q10H [facility]I Rx#:[id number] Sodium Chloride 0.9% 2, 2000 000 ml @ 999 mls/hr IV . Q2H1M ONE Rx#:[id number] Intake, IV Titration 147.901 265.677 Amount DAPTOmycin 390 mg In 50 Sodium Chloride 0.9% 50 ml @ 100 mls/hr IVPB Q24H [facility]I Rx#:[id number] Norepinephrine 32 mg In 47.901 15.677 Sodium Chloride 0.9% 218 ml @ 0.05 MCG/KG/MIN 1. 512 mls/hr IV .Q24H [facility]I Rx#:[id number] Piperacillin-Tazobactam 3 200 .375 gm In Sodium Chloride 0.9% 100 ml @ 25 mls/hr IVPB Q8H [facility] Rx#: [id number] propofoL 1,000 mg In 100.000 Empty Bag 1 bag @ 5 MCG/ KG/MIN 1.935 mls/hr IV . Q24H [facility]I Rx#:[id number] Tube Feeding 10 Blood Product 310 275 Rc As-1 Unit 310 [id number] Rc Pheresis As-3 Unit 0 275 [id number] Other 60 Output: Urine 345 318 82 Other: Voiding Method Indwelling Catheter Indwelling Catheter ABP, PAP, CO, CI - Last Documented Arterial Blood Pressure 104/64 - Labs CBC & Chem 7: 09/03/21 04:10 09/03/21 04:10 Labs: Abnormal Lab Results - Last 24 Hours (Table) 09/02/21 09/02/21 09/02/21 Range/Units 08:24 08:24 08:59 WBC (3.8-10.6) k/uL RBC (3.80-5.40) m/uL Hgb (11.4-16.0) gm/dL Hct (34.0-46.0) % MCV (80.0-100.0) fL MCHC (31.0-37.0) g/dL RDW (11.5-15.5) % Plt Count (150-450) k/uL Neutrophils # (Manual) (1.3-7.7) k/uL Lymphocytes # (Manual) (1.0-4.8) k/uL Metamyelocytes # (Man) (0) k/uL Myelocytes # (Manual) (0) k/uL Nucleated RBCs (0-0) /100 WBC Macrocytosis PT 12.6 H (9.0-12.0) sec INR 1.2 H (<1.2) ABG pH (7.35-7.45) ABG pCO2 (35-45) mmHg ABG pO2 (83-108) mmHg ABG HCO3 (21-25) mmol/L ABG Total CO2 (19-24) mmol/L ABG O2 Saturation (94-97) % Potassium 5.4 H (3.5-5.1) mmol/L Chloride 114 H (98-107) mmol/L Carbon Dioxide (22-30) mmol/L BUN 56 H (7-17) mg/dL Glucose 146 H (74-99) mg/dL POC Glucose (mg/dL) (70-110) mg/dL Plasma Lactic Acid Nolberto 3.4 H* (0.7-2.0) mmol/L Calcium (8.4-10.2) mg/dL Magnesium 2.6 H (1.6-2.3) mg/dL AST 57 H (14-36) U/L ALT 125 H (4-34) U/L Total Protein 4.0 L (6.3-8.2) g/dL Albumin 2.3 L (3.5-5.0) g/dL Crossmatch 09/02/21 09/02/21 09/02/21 Range/Units 08:59 09:57 10:03 WBC 22.6 H (3.8-10.6) k/uL RBC 2.41 L (3.80-5.40) m/uL Hgb 8.1 L (11.4-16.0) gm/dL Hct 27.6 L (34.0-46.0) % MCV 114.5 H (80.0-100.0) fL MCHC 29.2 L (31.0-37.0) g/dL RDW 18.1 H (11.5-15.5) % Plt Count 125 L (150-450) k/uL Neutrophils # (Manual) 21.70 H (1.3-7.7) k/uL Lymphocytes # (Manual) 0.23 L (1.0-4.8) k/uL Metamyelocytes # (Man) 0.23 H (0) k/uL Myelocytes # (Manual) 0.23 H (0) k/uL Nucleated RBCs 5 H (0-0) /100 WBC Macrocytosis Marked A PT (9.0-12.0) sec INR (<1.2) ABG pH 7.32 L (7.35-7.45) ABG pCO2 53 H (35-45) mmHg ABG pO2 (83-108) mmHg ABG HCO3 27 H (21-25) mmol/L ABG Total CO2 29 H (19-24) mmol/L ABG O2 Saturation 98.4 H (94-97) % Potassium (3.5-5.1) mmol/L Chloride (98-107) mmol/L Carbon Dioxide (22-30) mmol/L BUN (7-17) mg/dL Glucose (74-99) mg/dL POC Glucose (mg/dL) 169 H (70-110) mg/dL Plasma Lactic Acid Nolberto (0.7-2.0) mmol/L Calcium (8.4-10.2) mg/dL Magnesium (1.6-2.3) mg/dL AST (14-36) U/L ALT (4-34) U/L Total Protein (6.3-8.2) g/dL Albumin (3.5-5.0) g/dL Crossmatch 09/02/21 09/02/21 09/02/21 Range/Units 10:36 11:33 11:48 WBC (3.8-10.6) k/uL RBC (3.80-5.40) m/uL Hgb (11.4-16.0) gm/dL Hct (34.0-46.0) % MCV (80.0-100.0) fL MCHC (31.0-37.0) g/dL RDW (11.5-15.5) % Plt Count (150-450) k/uL Neutrophils # (Manual) (1.3-7.7) k/uL Lymphocytes # (Manual) (1.0-4.8) k/uL Metamyelocytes # (Man) (0) k/uL Myelocytes # (Manual) (0) k/uL Nucleated RBCs (0-0) /100 WBC Macrocytosis PT (9.0-12.0) sec INR (<1.2) ABG pH (7.35-7.45) ABG pCO2 (35-45) mmHg ABG pO2 >400 H (83-108) mmHg ABG HCO3 (21-25) mmol/L ABG Total CO2 25 H (19-24) mmol/L ABG O2 Saturation 100.0 H (94-97) % Potassium (3.5-5.1) mmol/L Chloride (98-107) mmol/L Carbon Dioxide (22-30) mmol/L BUN (7-17) mg/dL Glucose (74-99) mg/dL POC Glucose (mg/dL) 160 H 165 H (70-110) mg/dL Plasma Lactic Acid Nolberto (0.7-2.0) mmol/L Calcium (8.4-10.2) mg/dL Magnesium (1.6-2.3) mg/dL AST (14-36) U/L ALT (4-34) U/L Total Protein (6.3-8.2) g/dL Albumin (3.5-5.0) g/dL Crossmatch 09/02/21 09/02/21 09/02/21 Range/Units 12:03 12:03 12:03 WBC 15.3 H (3.8-10.6) k/uL RBC 1.74 L (3.80-5.40) m/uL Hgb 5.8 L* D (11.4-16.0) gm/dL Hct 19.4 L* (34.0-46.0) % MCV 111.8 H (80.0-100.0) fL MCHC 29.7 L (31.0-37.0) g/dL RDW 17.8 H (11.5-15.5) % Plt Count 72 L (150-450) k/uL Neutrophils # (Manual) 14.38 H (1.3-7.7) k/uL Lymphocytes # (Manual) 0.31 L (1.0-4.8) k/uL Metamyelocytes # (Man) (0) k/uL Myelocytes # (Manual) (0) k/uL Nucleated RBCs 5 H (0-0) /100 WBC Macrocytosis Marked A PT 15.0 H (9.0-12.0) sec INR 1.5 H (<1.2) ABG pH (7.35-7.45) ABG pCO2 (35-45) mmHg ABG pO2 (83-108) mmHg ABG HCO3 (21-25) mmol/L ABG Total CO2 (19-24) mmol/L ABG O2 Saturation (94-97) % Potassium (3.5-5.1) mmol/L Chloride 118 H (98-107) mmol/L Carbon Dioxide (22-30) mmol/L BUN 53 H (7-17) mg/dL Glucose 115 H (74-99) mg/dL POC Glucose (mg/dL) (70-110) mg/dL Plasma Lactic Acid Nolberto (0.7-2.0) mmol/L Calcium 7.5 L (8.4-10.2) mg/dL Magnesium (1.6-2.3) mg/dL AST 88 H (14-36) U/L ALT 144 H (4-34) U/L Total Protein 2.7 L (6.3-8.2) g/dL Albumin 1.4 L (3.5-5.0) g/dL Crossmatch 09/02/21 09/02/21 09/02/21 Range/Units 12:03 12:03 12:04 WBC (3.8-10.6) k/uL RBC (3.80-5.40) m/uL Hgb (11.4-16.0) gm/dL Hct (34.0-46.0) % MCV (80.0-100.0) fL MCHC (31.0-37.0) g/dL RDW (11.5-15.5) % Plt Count (150-450) k/uL Neutrophils # (Manual) (1.3-7.7) k/uL Lymphocytes # (Manual) (1.0-4.8) k/uL Metamyelocytes # (Man) (0) k/uL Myelocytes # (Manual) (0) k/uL Nucleated RBCs (0-0) /100 WBC Macrocytosis PT (9.0-12.0) sec INR (<1.2) ABG pH (7.35-7.45) ABG pCO2 (35-45) mmHg ABG pO2 (83-108) mmHg ABG HCO3 (21-25) mmol/L ABG Total CO2 (19-24) mmol/L ABG O2 Saturation (94-97) % Potassium (3.5-5.1) mmol/L Chloride (98-107) mmol/L Carbon Dioxide (22-30) mmol/L BUN (7-17) mg/dL Glucose (74-99) mg/dL POC Glucose (mg/dL) 133 H (70-110) mg/dL Plasma Lactic Acid Nolberto 2.7 H* (0.7-2.0) mmol/L Calcium (8.4-10.2) mg/dL Magnesium (1.6-2.3) mg/dL AST (14-36) U/L ALT (4-34) U/L Total Protein (6.3-8.2) g/dL Albumin (3.5-5.0) g/dL Crossmatch See Detail 09/02/21 09/02/21 09/02/21 Range/Units 16:56 17:29 22:50 WBC 16.7 H (3.8-10.6) k/uL RBC 3.15 L (3.80-5.40) m/uL Hgb 11.0 L D (11.4-16.0) gm/dL Hct 33.6 L (34.0-46.0) % MCV 106.8 H D (80.0-100.0) fL MCHC (31.0-37.0) g/dL RDW 18.4 H (11.5-15.5) % Plt Count 65 L (150-450) k/uL Neutrophils # (Manual) (1.3-7.7) k/uL Lymphocytes # (Manual) (1.0-4.8) k/uL Metamyelocytes # (Man) (0) k/uL Myelocytes # (Manual) (0) k/uL Nucleated RBCs (0-0) /100 WBC Macrocytosis Marked A PT (9.0-12.0) sec INR (<1.2) ABG pH (7.35-7.45) ABG pCO2 (35-45) mmHg ABG pO2 (83-108) mmHg ABG HCO3 (21-25) mmol/L ABG Total CO2 (19-24) mmol/L ABG O2 Saturation (94-97) % Potassium (3.5-5.1) mmol/L Chloride (98-107) mmol/L Carbon Dioxide (22-30) mmol/L BUN (7-17) mg/dL Glucose (74-99) mg/dL POC Glucose (mg/dL) 163 H (70-110) mg/dL Plasma Lactic Acid Nolberto 2.4 H* (0.7-2.0) mmol/L Calcium (8.4-10.2) mg/dL Magnesium (1.6-2.3) mg/dL AST (14-36) U/L ALT (4-34) U/L Total Protein (6.3-8.2) g/dL Albumin (3.5-5.0) g/dL Crossmatch 09/03/21 09/03/21 09/03/21 Range/Units 04:10 04:10 05:30 WBC 14.1 H (3.8-10.6) k/uL RBC 3.34 L (3.80-5.40) m/uL Hgb 11.3 L (11.4-16.0) gm/dL Hct (34.0-46.0) % MCV 106.1 H (80.0-100.0) fL MCHC (31.0-37.0) g/dL RDW 18.7 H (11.5-15.5) % Plt Count 61 L (150-450) k/uL Neutrophils # (Manual) 13.50 H (1.3-7.7) k/uL Lymphocytes # (Manual) 0.56 L (1.0-4.8) k/uL Metamyelocytes # (Man) 0.14 H (0) k/uL Myelocytes # (Manual) (0) k/uL Nucleated RBCs 1 H (0-0) /100 WBC Macrocytosis Marked A PT (9.0-12.0) sec INR (<1.2) ABG pH (7.35-7.45) ABG pCO2 (35-45) mmHg ABG pO2 (83-108) mmHg ABG HCO3 (21-25) mmol/L ABG Total CO2 (19-24) mmol/L ABG O2 Saturation (94-97) % Potassium (3.5-5.1) mmol/L Chloride 116 H (98-107) mmol/L Carbon Dioxide 21 L (22-30) mmol/L BUN 43 H (7-17) mg/dL Glucose 134 H (74-99) mg/dL POC Glucose (mg/dL) 138 H (70-110) mg/dL Plasma Lactic Acid Nolberto (0.7-2.0) mmol/L Calcium 7.5 L (8.4-10.2) mg/dL Magnesium (1.6-2.3) mg/dL AST 111 H (14-36) U/L ALT 214 H (4-34) U/L Total Protein 3.3 L (6.3-8.2) g/dL Albumin 1.8 L (3.5-5.0) g/dL Crossmatch 09/03/21 09/03/21 Range/Units 05:32 05:45 WBC (3.8-10.6) k/uL RBC (3.80-5.40) m/uL Hgb (11.4-16.0) gm/dL Hct (34.0-46.0) % MCV (80.0-100.0) fL MCHC (31.0-37.0) g/dL RDW (11.5-15.5) % Plt Count (150-450) k/uL Neutrophils # (Manual) (1.3-7.7) k/uL Lymphocytes # (Manual) (1.0-4.8) k/uL Metamyelocytes # (Man) (0) k/uL Myelocytes # (Manual) (0) k/uL Nucleated RBCs (0-0) /100 WBC Macrocytosis PT (9.0-12.0) sec INR (<1.2) ABG pH (7.35-7.45) ABG pCO2 (35-45) mmHg ABG pO2 183 H (83-108) mmHg ABG HCO3 (21-25) mmol/L ABG Total CO2 (19-24) mmol/L ABG O2 Saturation 99.9 H (94-97) % Potassium (3.5-5.1) mmol/L Chloride (98-107) mmol/L Carbon Dioxide (22-30) mmol/L BUN (7-17) mg/dL Glucose (74-99) mg/dL POC Glucose (mg/dL) 137 H (70-110) mg/dL Plasma Lactic Acid Nolberto (0.7-2.0) mmol/L Calcium (8.4-10.2) mg/dL Magnesium (1.6-2.3) mg/dL AST (14-36) U/L ALT (4-34) U/L Total Protein (6.3-8.2) g/dL Albumin (3.5-5.0) g/dL Crossmatch Microbiology - Last 24 Hours (Table) 09/02/21 20:49 Sputum Culture - Preliminary Sputum 09/01/21 19:42 Blood Culture - Preliminary Blood No Growth after 24 hours 08/27/21 14:45 Blood Culture - Final Blood No Growth after 144 hours Assessment and Plan Plan: Assessment: 1. Acute kidney injury secondary to hemodynamic ATN. Resolved. GFR at baseline. 2. A. fib with RVR maintained on amiodarone drip. 3. Hyperkalemia secondary to hyperglycemia and also concern for GI bleed. Resolved. 4. E. coli UTI and enterococcus bacteremia on antibiotics. ID following. 5. Lower extremity edema partially related to third spacing from severe hypoalbuminemia. 6. Acute blood loss anemia status post blood transfusion. Improved. No active bleeding per the nurse. Plan: Hep-Lock IV fluids. Maintain tube feeds. 25 g IV albumin once today. Lasix 40 mg IV once after albumin given. Potassium was replaced. Continue to monitor renal function and urine output. Wean FiO2.
--- NOTE | 2021-09-03 10:06 | P.PN ---
Subjective Progress Note Date: 09/03/21 This is a pleasant 75-year-old with past medical history significant for advanced dementia, postural hypotension, COPD, chronic kidney disease, hypertension, paroxysmal atrial fibrillation on Eliquis, Bronchitis. She used to follow in the office with Dr. Smart. We are being consulted for elevated troponin. Patient is a poor historian unable to state why she came to the hospital. She has no complaints at bedside. Denies any pain, chest pain, shortness of breath. Most recent echo 06/2021 revealed EF 5560%, moderately increase posterior wall thickness. Patient was admitted to the hospital in Nov with complaints of chest pain and shortness of breath. She was evaluated by nuclear Stress test and echocardiogram. Nuclear stress test showed mild ischemia. She was evaluated Dr. Cotton, nuclear stress test was reviewed by cardiology and medical therapy was advised. Patient was seen in the ICU today intubated. Yesterday on 3 S. patient became unresponsive and a rapid response team was called. She had very shallow breathing and was hypotensive. Patient was intubated and transferred to the ICU. Given fluid boluses. And started on norepinephrine. She had a PEG tube placed earlier this week and has been having issues with bleeding at the site. Today patient is seen intubated resting comfortably in bed in no signs of acute distress she remains on amiodarone drip. She is on norepinephrine drip. She continues on a request for anticoagulation. Remains atrial fibrillation on the monitor heart rate in the low 100s. Blood pressure 99/62. Objective - Vital Signs Vital signs: Vital Signs Temp 99 F 09/03/21 08:00 Pulse 106 H 09/03/21 09:00 Resp 23 09/03/21 09:00 BP 108/90 09/02/21 23:15 Pulse Ox 98 09/03/21 09:00 FiO2 30 09/03/21 09:00 Intake & Output 09/02/21 09/03/21 09/03/21 18:59 06:59 18:59 Intake Total 2817.901 2040.677 310 Output Total 345 318 82 Balance 2472.901 1722.677 228 Weight 64.5 kg 69.3 kg Intake: IV 2300 1500 300 Sodium Chloride 0.9% 1, 300 1500 300 000 ml @ 100 mls/hr IV . Q10H [facility] Rx#:[id number] Sodium Chloride 0.9% 2, 2000 000 ml @ 999 mls/hr IV . Q2H1M [facility] Rx#:[id number] Intake, IV Titration 147.901 265.677 Amount DAPTOmycin 390 mg In 50 Sodium Chloride 0.9% 50 ml @ 100 mls/hr IVPB Q24H [facility] Rx#:[id number] Norepinephrine 32 mg In 47.901 15.677 Sodium Chloride 0.9% 218 ml @ 0.05 MCG/KG/MIN 1. 512 mls/hr IV .Q24H [facility] Rx#:[id number] Piperacillin-Tazobactam 3 200 .375 gm In Sodium Chloride 0.9% 100 ml @ 25 mls/hr IVPB Q8H [facility] Rx#: [id number] propofoL 1,000 mg In 100.000 Empty Bag 1 bag @ 5 MCG/ KG/MIN 1.935 mls/hr IV . Q24H [facility] Rx#:[id number] Tube Feeding 10 Blood Product 310 275 Rc As-1 Unit 310 [id number] Rc Pheresis As-3 Unit 0 275 [id number] Other 60 Output: Urine 345 318 82 Other: Voiding Method Indwelling Catheter Indwelling Catheter ABP, PAP, CO, CI - Last Documented Arterial Blood Pressure 104/64 - Exam PHYSICAL EXAM: VITAL SIGNS: Reviewed. GENERAL: Well-developed in no acute distress. HEENT: Head is normocephalic. Pupils are equal, round. Sclerae anicteric. Mucous membranes of the mouth are moist. NECK: Supple. No JVD or thyromegaly RESPIRATORY: Respirations even and unlabored. Lungs diminished to auscultation bilaterally. Intubated and sedated CARDIO: Regular rate and rhythm. S1 and S2 heard. No murmur or gallops. EXTREMITIES: Normal range of motion. No clubbing or cyanosis. Peripheral pulses intact. Negative for bilateral lower extremity edema NEURO: Orientated to person, time, mood is appropriate - Labs CBC & Chem 7: 09/03/21 04:10 09/03/21 04:10 Labs: Abnormal Lab Results - Last 24 Hours (Table) 09/02/21 09/02/21 09/02/21 Range/Units 08:24 08:59 08:59 WBC 22.6 H (3.8-10.6) k/uL RBC 2.41 L (3.80-5.40) m/uL Hgb 8.1 L (11.4-16.0) gm/dL Hct 27.6 L (34.0-46.0) % MCV 114.5 H (80.0-100.0) fL MCHC 29.2 L (31.0-37.0) g/dL RDW 18.1 H (11.5-15.5) % Plt Count 125 L (150-450) k/uL Neutrophils # (Manual) 21.70 H (1.3-7.7) k/uL Lymphocytes # (Manual) 0.23 L (1.0-4.8) k/uL Metamyelocytes # (Man) 0.23 H (0) k/uL Myelocytes # (Manual) 0.23 H (0) k/uL Nucleated RBCs 5 H (0-0) /100 WBC Macrocytosis Marked A PT 12.6 H (9.0-12.0) sec INR 1.2 H (<1.2) ABG pH (7.35-7.45) ABG pCO2 (35-45) mmHg ABG pO2 (83-108) mmHg ABG HCO3 (21-25) mmol/L ABG Total CO2 (19-24) mmol/L ABG O2 Saturation (94-97) % Potassium 5.4 H (3.5-5.1) mmol/L Chloride 114 H (98-107) mmol/L Carbon Dioxide (22-30) mmol/L BUN 56 H (7-17) mg/dL Glucose 146 H (74-99) mg/dL POC Glucose (mg/dL) (70-110) mg/dL Plasma Lactic Acid Nolberto (0.7-2.0) mmol/L Calcium (8.4-10.2) mg/dL Magnesium 2.6 H (1.6-2.3) mg/dL AST 57 H (14-36) U/L ALT 125 H (4-34) U/L Total Protein 4.0 L (6.3-8.2) g/dL Albumin 2.3 L (3.5-5.0) g/dL Crossmatch 09/02/21 09/02/21 09/02/21 Range/Units 09:57 10:03 10:36 WBC (3.8-10.6) k/uL RBC (3.80-5.40) m/uL Hgb (11.4-16.0) gm/dL Hct (34.0-46.0) % MCV (80.0-100.0) fL MCHC (31.0-37.0) g/dL RDW (11.5-15.5) % Plt Count (150-450) k/uL Neutrophils # (Manual) (1.3-7.7) k/uL Lymphocytes # (Manual) (1.0-4.8) k/uL Metamyelocytes # (Man) (0) k/uL Myelocytes # (Manual) (0) k/uL Nucleated RBCs (0-0) /100 WBC Macrocytosis PT (9.0-12.0) sec INR (<1.2) ABG pH 7.32 L (7.35-7.45) ABG pCO2 53 H (35-45) mmHg ABG pO2 (83-108) mmHg ABG HCO3 27 H (21-25) mmol/L ABG Total CO2 29 H (19-24) mmol/L ABG O2 Saturation 98.4 H (94-97) % Potassium (3.5-5.1) mmol/L Chloride (98-107) mmol/L Carbon Dioxide (22-30) mmol/L BUN (7-17) mg/dL Glucose (74-99) mg/dL POC Glucose (mg/dL) 169 H 160 H (70-110) mg/dL Plasma Lactic Acid Nolberto (0.7-2.0) mmol/L Calcium (8.4-10.2) mg/dL Magnesium (1.6-2.3) mg/dL AST (14-36) U/L ALT (4-34) U/L Total Protein (6.3-8.2) g/dL Albumin (3.5-5.0) g/dL Crossmatch 09/02/21 09/02/21 09/02/21 Range/Units 11:33 11:48 12:03 WBC 15.3 H (3.8-10.6) k/uL RBC 1.74 L (3.80-5.40) m/uL Hgb 5.8 L* D (11.4-16.0) gm/dL Hct 19.4 L* (34.0-46.0) % MCV 111.8 H (80.0-100.0) fL MCHC 29.7 L (31.0-37.0) g/dL RDW 17.8 H (11.5-15.5) % Plt Count 72 L (150-450) k/uL Neutrophils # (Manual) 14.38 H (1.3-7.7) k/uL Lymphocytes # (Manual) 0.31 L (1.0-4.8) k/uL Metamyelocytes # (Man) (0) k/uL Myelocytes # (Manual) (0) k/uL Nucleated RBCs 5 H (0-0) /100 WBC Macrocytosis Marked A PT (9.0-12.0) sec INR (<1.2) ABG pH (7.35-7.45) ABG pCO2 (35-45) mmHg ABG pO2 >400 H (83-108) mmHg ABG HCO3 (21-25) mmol/L ABG Total CO2 25 H (19-24) mmol/L ABG O2 Saturation 100.0 H (94-97) % Potassium (3.5-5.1) mmol/L Chloride (98-107) mmol/L Carbon Dioxide (22-30) mmol/L BUN (7-17) mg/dL Glucose (74-99) mg/dL POC Glucose (mg/dL) 165 H (70-110) mg/dL Plasma Lactic Acid Nolberto (0.7-2.0) mmol/L Calcium (8.4-10.2) mg/dL Magnesium (1.6-2.3) mg/dL AST (14-36) U/L ALT (4-34) U/L Total Protein (6.3-8.2) g/dL Albumin (3.5-5.0) g/dL Crossmatch 09/02/21 09/02/21 09/02/21 Range/Units 12:03 12:03 12:03 WBC (3.8-10.6) k/uL RBC (3.80-5.40) m/uL Hgb (11.4-16.0) gm/dL Hct (34.0-46.0) % MCV (80.0-100.0) fL MCHC (31.0-37.0) g/dL RDW (11.5-15.5) % Plt Count (150-450) k/uL Neutrophils # (Manual) (1.3-7.7) k/uL Lymphocytes # (Manual) (1.0-4.8) k/uL Metamyelocytes # (Man) (0) k/uL Myelocytes # (Manual) (0) k/uL Nucleated RBCs (0-0) /100 WBC Macrocytosis PT 15.0 H (9.0-12.0) sec INR 1.5 H (<1.2) ABG pH (7.35-7.45) ABG pCO2 (35-45) mmHg ABG pO2 (83-108) mmHg ABG HCO3 (21-25) mmol/L ABG Total CO2 (19-24) mmol/L ABG O2 Saturation (94-97) % Potassium (3.5-5.1) mmol/L Chloride 118 H (98-107) mmol/L Carbon Dioxide (22-30) mmol/L BUN 53 H (7-17) mg/dL Glucose 115 H (74-99) mg/dL POC Glucose (mg/dL) (70-110) mg/dL Plasma Lactic Acid Nolberto 2.7 H* (0.7-2.0) mmol/L Calcium 7.5 L (8.4-10.2) mg/dL Magnesium (1.6-2.3) mg/dL AST 88 H (14-36) U/L ALT 144 H (4-34) U/L Total Protein 2.7 L (6.3-8.2) g/dL Albumin 1.4 L (3.5-5.0) g/dL Crossmatch 09/02/21 09/02/21 09/02/21 Range/Units 12:03 12:04 16:56 WBC (3.8-10.6) k/uL RBC (3.80-5.40) m/uL Hgb (11.4-16.0) gm/dL Hct (34.0-46.0) % MCV (80.0-100.0) fL MCHC (31.0-37.0) g/dL RDW (11.5-15.5) % Plt Count (150-450) k/uL Neutrophils # (Manual) (1.3-7.7) k/uL Lymphocytes # (Manual) (1.0-4.8) k/uL Metamyelocytes # (Man) (0) k/uL Myelocytes # (Manual) (0) k/uL Nucleated RBCs (0-0) /100 WBC Macrocytosis PT (9.0-12.0) sec INR (<1.2) ABG pH (7.35-7.45) ABG pCO2 (35-45) mmHg ABG pO2 (83-108) mmHg ABG HCO3 (21-25) mmol/L ABG Total CO2 (19-24) mmol/L ABG O2 Saturation (94-97) % Potassium (3.5-5.1) mmol/L Chloride (98-107) mmol/L Carbon Dioxide (22-30) mmol/L BUN (7-17) mg/dL Glucose (74-99) mg/dL POC Glucose (mg/dL) 133 H (70-110) mg/dL Plasma Lactic Acid Nolberto 2.4 H* (0.7-2.0) mmol/L Calcium (8.4-10.2) mg/dL Magnesium (1.6-2.3) mg/dL AST (14-36) U/L ALT (4-34) U/L Total Protein (6.3-8.2) g/dL Albumin (3.5-5.0) g/dL Crossmatch See Detail 09/02/21 09/02/21 09/03/21 Range/Units 17:29 22:50 04:10 WBC 16.7 H 14.1 H (3.8-10.6) k/uL RBC 3.15 L 3.34 L (3.80-5.40) m/uL Hgb 11.0 L D 11.3 L (11.4-16.0) gm/dL Hct 33.6 L (34.0-46.0) % MCV 106.8 H D 106.1 H (80.0-100.0) fL MCHC (31.0-37.0) g/dL RDW 18.4 H 18.7 H (11.5-15.5) % Plt Count 65 L 61 L (150-450) k/uL Neutrophils # (Manual) 13.50 H (1.3-7.7) k/uL Lymphocytes # (Manual) 0.56 L (1.0-4.8) k/uL Metamyelocytes # (Man) 0.14 H (0) k/uL Myelocytes # (Manual) (0) k/uL Nucleated RBCs 1 H (0-0) /100 WBC Macrocytosis Marked A Marked A PT (9.0-12.0) sec INR (<1.2) ABG pH (7.35-7.45) ABG pCO2 (35-45) mmHg ABG pO2 (83-108) mmHg ABG HCO3 (21-25) mmol/L ABG Total CO2 (19-24) mmol/L ABG O2 Saturation (94-97) % Potassium (3.5-5.1) mmol/L Chloride (98-107) mmol/L Carbon Dioxide (22-30) mmol/L BUN (7-17) mg/dL Glucose (74-99) mg/dL POC Glucose (mg/dL) 163 H (70-110) mg/dL Plasma Lactic Acid Nolberto (0.7-2.0) mmol/L Calcium (8.4-10.2) mg/dL Magnesium (1.6-2.3) mg/dL AST (14-36) U/L ALT (4-34) U/L Total Protein (6.3-8.2) g/dL Albumin (3.5-5.0) g/dL Crossmatch 09/03/21 09/03/21 09/03/21 Range/Units 04:10 05:30 05:32 WBC (3.8-10.6) k/uL RBC (3.80-5.40) m/uL Hgb (11.4-16.0) gm/dL Hct (34.0-46.0) % MCV (80.0-100.0) fL MCHC (31.0-37.0) g/dL RDW (11.5-15.5) % Plt Count (150-450) k/uL Neutrophils # (Manual) (1.3-7.7) k/uL Lymphocytes # (Manual) (1.0-4.8) k/uL Metamyelocytes # (Man) (0) k/uL Myelocytes # (Manual) (0) k/uL Nucleated RBCs (0-0) /100 WBC Macrocytosis PT (9.0-12.0) sec INR (<1.2) ABG pH (7.35-7.45) ABG pCO2 (35-45) mmHg ABG pO2 (83-108) mmHg ABG HCO3 (21-25) mmol/L ABG Total CO2 (19-24) mmol/L ABG O2 Saturation (94-97) % Potassium (3.5-5.1) mmol/L Chloride 116 H (98-107) mmol/L Carbon Dioxide 21 L (22-30) mmol/L BUN 43 H (7-17) mg/dL Glucose 134 H (74-99) mg/dL POC Glucose (mg/dL) 138 H 137 H (70-110) mg/dL Plasma Lactic Acid Nolberto (0.7-2.0) mmol/L Calcium 7.5 L (8.4-10.2) mg/dL Magnesium (1.6-2.3) mg/dL AST 111 H (14-36) U/L ALT 214 H (4-34) U/L Total Protein 3.3 L (6.3-8.2) g/dL Albumin 1.8 L (3.5-5.0) g/dL Crossmatch 09/03/21 Range/Units 05:45 WBC (3.8-10.6) k/uL RBC (3.80-5.40) m/uL Hgb (11.4-16.0) gm/dL Hct (34.0-46.0) % MCV (80.0-100.0) fL MCHC (31.0-37.0) g/dL RDW (11.5-15.5) % Plt Count (150-450) k/uL Neutrophils # (Manual) (1.3-7.7) k/uL Lymphocytes # (Manual) (1.0-4.8) k/uL Metamyelocytes # (Man) (0) k/uL Myelocytes # (Manual) (0) k/uL Nucleated RBCs (0-0) /100 WBC Macrocytosis PT (9.0-12.0) sec INR (<1.2) ABG pH (7.35-7.45) ABG pCO2 (35-45) mmHg ABG pO2 183 H (83-108) mmHg ABG HCO3 (21-25) mmol/L ABG Total CO2 (19-24) mmol/L ABG O2 Saturation 99.9 H (94-97) % Potassium (3.5-5.1) mmol/L Chloride (98-107) mmol/L Carbon Dioxide (22-30) mmol/L BUN (7-17) mg/dL Glucose (74-99) mg/dL POC Glucose (mg/dL) (70-110) mg/dL Plasma Lactic Acid Nolberto (0.7-2.0) mmol/L Calcium (8.4-10.2) mg/dL Magnesium (1.6-2.3) mg/dL AST (14-36) U/L ALT (4-34) U/L Total Protein (6.3-8.2) g/dL Albumin (3.5-5.0) g/dL Crossmatch Microbiology - Last 24 Hours (Table) 09/02/21 20:49 Sputum Culture - Preliminary Sputum 09/01/21 19:42 Blood Culture - Preliminary Blood No Growth after 24 hours 08/27/21 14:45 Blood Culture - Final Blood No Growth after 144 hours Assessment and Plan Assessment: Chief hypoxic respiratory failure secondary to sepsis Chronic atrial fibrillation Acute kidney injury Elevated troponin secondary to acute kidney injury Altered mental status History of hypertension Plan: Continue with current cardiac medications Continue to titrate pressors as tolerated Continue amiodarone drip Continue with Eliquis 5 mg twice a day Continue with Telemetry monitoring Further recommendations based on clinical course The above impression and plan of care have been discussed and directed by the signing physician. Leandra Ambriz, nurse practitioner, acting as scribe for signing physician.
[2021-09-03] MEDS: DILTIAZEM 125 MG in SODIUM CHLORIDE 0.9% 100 ML IV SCH ×2 (10:27→16:19)
--- NOTE | 2021-09-03 11:17 | P.PN ---
Subjective Progress Note Date: 09/03/21 Principal diagnosis: Acute hypoxic respiratory failure, sepsis, septic shock This is a 75-year-old female with history of multiple medical problems including dementia, COPD, chronic atrial fibrillation, seizure disorder, failure to thrive, hypertension, patient was admitted on 08/11/21, although the patient has been in the hospital over a half dozen times in the last few months with similar issues. Discharged last on 07/28, readmitted on 08/11 and has been in the hospital since then with multiple medical problems, failure to thrive, and this time she had enterococcal bacteremia. She was seen by Dr. Mcbride and by , as well as Dr. Nguyen, and being treated with antibiotics. Recently she had a PEG tube placed, and apparently she had issues of bleeding related to the PEG tube placement over the last couple of days. Patient has been on eliquis which I have placed on hold at present. Today I happened to be seeing the patient next door, and the rapid response team was working on this patient were and the patient was unresponsive, she had very shallow breathing, unable to protect her airways, she was also profoundly hypotensive and could barely get a blood press ure on this patient. The rapid response team asked me to evaluate the patient since she is going to be transferred to the ICU and Dr. Mcbride has no active privileges in the ICU. I evaluated the patient, intubated the patient with a size 7.5 endotracheal tube. Given fluid boluses. Started the patient on norepinephrine. A central line was established patient transferred to the ICU and a left radial arterial line was also placed. Updated the family at bedside on her condition and obviously the patient is septic, and she is on proper antibiotics as per infectious disease on the case. Patient will receive more fluids, and we will continue to follow closely in the ICU. Reevaluated today on 09/03/21, patient remains in the ICU, intubated and mechanically ventilated. Patient is on assist control rate of 2010 volume 400 FiO2 30% and PEEP of 5 earlier ABG on 50% showed a pO2 of 183 pCO2 36 pH of 7.38, and her FiO2 was decreased down to 30%. Patient is off norepinephrine, she didn't require norepinephrine yesterday, and she was on a lot of it for a while. However she was given fluid boluses and her blood pressure stabilized. She was also given 2 units of packed RBCs for low hemoglobin. Patient is now off norepinephrine, she is on IV fluid 0.9 normal saline at 100 mL per hour, she is also on amiodarone 0.5 mg/m, patient is on Glucerna for enteral feeding. Her urine output is marginal, has the patient will be given albumin and Lasix she is on Lovenox but her platelets are low, and I suggested that we go back to eliquis at 5 mg twice a day via PEG tube. No further bleeding noted around the site of the peg tube. Patient remains unresponsive. Not following any instructions, however I plan to discontinue propofol and assess mental status off sedation. Labs today showed WBC count of 14.1 hemoglobin 11.3. Platelets are 61,000. Basic metabolic profile is normal renal profile is normal liver profile is slightly abnormal with elevated AST of 111 and ALT of 214. Objective - Vital Signs Vital signs: Vital Signs Temp 99 F 09/03/21 08:00 Pulse 144 H 09/03/21 11:00 Resp 18 09/03/21 11:00 BP 108/90 09/02/21 23:15 Pulse Ox 97 09/03/21 11:00 FiO2 30 09/03/21 10:00 Intake & Output 09/02/21 09/03/21 09/03/21 18:59 06:59 18:59 Intake Total 2817.901 2040.677 444.417 Output Total 345 318 107 Balance 2472.901 1722.677 337.417 Weight 64.5 kg 69.3 kg Intake: IV 2300 1500 320 Sodium Chloride 0.9% 1, 300 1500 320 000 ml @ 20 mls/hr IV . Q24H [facility] Rx#:[id number] Sodium Chloride 0.9% 2, 2000 000 ml @ 999 mls/hr IV . Q2H1M [facility] Rx#:[id number] Intake, IV Titration 147.901 265.677 104.417 Amount DAPTOmycin 390 mg In 50 Sodium Chloride 0.9% 50 ml @ 100 mls/hr IVPB Q24H [facility] Rx#:[id number] Diltiazem 125 mg In 4.417 Sodium Chloride 0.9% 100 ml @ 5 MG/HR 5 mls/hr IV .Q24H [facility] Rx#:[id number] Norepinephrine 32 mg In 47.901 15.677 0 Sodium Chloride 0.9% 218 ml @ 0.05 MCG/KG/MIN 1. 512 mls/hr IV .Q24H [facility] Rx#:[id number] Piperacillin-Tazobactam 3 200 .375 gm In Sodium Chloride 0.9% 100 ml @ 25 mls/hr IVPB Q8H [facility] Rx#: [id number] propofoL 1,000 mg In 100.000 100 Empty Bag 1 bag @ 5 MCG/ KG/MIN 1.935 mls/hr IV . Q24H [facility] Rx#:[id number] Tube Feeding 20 Blood Product 310 275 Rc As-1 Unit 310 [id number] Rc Pheresis As-3 Unit 0 275 [id number] Other 60 Output: Urine 345 318 107 Other: Voiding Method Indwelling Catheter Indwelling Catheter ABP, PAP, CO, CI - Last Documented Arterial Blood Pressure 98/60 - Exam Physical Exam: Revealed a 75-year-old female intubated, mechanically ventilated, unresponsive to any stimuli Head: Atraumatic, normocephalic. HEENT: [No neck masses.] [No thyromegaly.] [No JVD.] Patient looks pale, PERRLA, EOMI, nonicteric. Chest: [Symmetrical chest expansion diminished breath sounds at the bases no rhonchi and no wheezes] Cardiac Exam: Distant S1 and S2, no S3 gallop, 2/6 systolic murmur thought the precordium. Abdomen: [Soft, nontender, no megaly, no rebound, no guarding, normal bowel sounds.] PEG tube is noted, no further bleeding noted around the PEG tube Extremities: No clubbing edema or cyanosis, no distal pulses could be palpable. Neurological Exam: unresponsive to any stimuli. None purposeful movement is noted, in upper and lower extremities. Psychiatric: Cannot assess. Skin: No rashes - Labs CBC & Chem 7: 09/03/21 04:10 09/03/21 04:10 Labs: Abnormal Lab Results - Last 24 Hours (Table) 09/02/21 09/02/21 09/02/21 Range/Units 08:59 11:33 11:48 WBC 22.6 H (3.8-10.6) k/uL RBC (3.80-5.40) m/uL Hgb (11.4-16.0) gm/dL Hct (34.0-46.0) % MCV (80.0-100.0) fL MCHC (31.0-37.0) g/dL RDW (11.5-15.5) % Plt Count (150-450) k/uL Neutrophils # (Manual) 21.70 H (1.3-7.7) k/uL Lymphocytes # (Manual) 0.23 L (1.0-4.8) k/uL Metamyelocytes # (Man) 0.23 H (0) k/uL Myelocytes # (Manual) 0.23 H (0) k/uL Nucleated RBCs 5 H (0-0) /100 WBC Macrocytosis PT (9.0-12.0) sec INR (<1.2) ABG pO2 >400 H (83-108) mmHg ABG Total CO2 25 H (19-24) mmol/L ABG O2 Saturation 100.0 H (94-97) % Chloride (98-107) mmol/L Carbon Dioxide (22-30) mmol/L BUN (7-17) mg/dL Glucose (74-99) mg/dL POC Glucose (mg/dL) 165 H (70-110) mg/dL Plasma Lactic Acid Nolberto (0.7-2.0) mmol/L Calcium (8.4-10.2) mg/dL AST (14-36) U/L ALT (4-34) U/L Total Protein (6.3-8.2) g/dL Albumin (3.5-5.0) g/dL Crossmatch 09/02/21 09/02/21 09/02/21 Range/Units 12:03 12:03 12:03 WBC 15.3 H (3.8-10.6) k/uL RBC 1.74 L (3.80-5.40) m/uL Hgb 5.8 L* D (11.4-16.0) gm/dL Hct 19.4 L* (34.0-46.0) % MCV 111.8 H (80.0-100.0) fL MCHC 29.7 L (31.0-37.0) g/dL RDW 17.8 H (11.5-15.5) % Plt Count 72 L (150-450) k/uL Neutrophils # (Manual) 14.38 H (1.3-7.7) k/uL Lymphocytes # (Manual) 0.31 L (1.0-4.8) k/uL Metamyelocytes # (Man) (0) k/uL Myelocytes # (Manual) (0) k/uL Nucleated RBCs 5 H (0-0) /100 WBC Macrocytosis Marked A PT 15.0 H (9.0-12.0) sec INR 1.5 H (<1.2) ABG pO2 (83-108) mmHg ABG Total CO2 (19-24) mmol/L ABG O2 Saturation (94-97) % Chloride 118 H (98-107) mmol/L Carbon Dioxide (22-30) mmol/L BUN 53 H (7-17) mg/dL Glucose 115 H (74-99) mg/dL POC Glucose (mg/dL) (70-110) mg/dL Plasma Lactic Acid Nolberto (0.7-2.0) mmol/L Calcium 7.5 L (8.4-10.2) mg/dL AST 88 H (14-36) U/L ALT 144 H (4-34) U/L Total Protein 2.7 L (6.3-8.2) g/dL Albumin 1.4 L (3.5-5.0) g/dL Crossmatch 09/02/21 09/02/21 09/02/21 Range/Units 12:03 12:03 12:04 WBC (3.8-10.6) k/uL RBC (3.80-5.40) m/uL Hgb (11.4-16.0) gm/dL Hct (34.0-46.0) % MCV (80.0-100.0) fL MCHC (31.0-37.0) g/dL RDW (11.5-15.5) % Plt Count (150-450) k/uL Neutrophils # (Manual) (1.3-7.7) k/uL Lymphocytes # (Manual) (1.0-4.8) k/uL Metamyelocytes # (Man) (0) k/uL Myelocytes # (Manual) (0) k/uL Nucleated RBCs (0-0) /100 WBC Macrocytosis PT (9.0-12.0) sec INR (<1.2) ABG pO2 (83-108) mmHg ABG Total CO2 (19-24) mmol/L ABG O2 Saturation (94-97) % Chloride (98-107) mmol/L Carbon Dioxide (22-30) mmol/L BUN (7-17) mg/dL Glucose (74-99) mg/dL POC Glucose (mg/dL) 133 H (70-110) mg/dL Plasma Lactic Acid Nolberto 2.7 H* (0.7-2.0) mmol/L Calcium (8.4-10.2) mg/dL AST (14-36) U/L ALT (4-34) U/L Total Protein (6.3-8.2) g/dL Albumin (3.5-5.0) g/dL Crossmatch See Detail 09/02/21 09/02/21 09/02/21 Range/Units 16:56 17:29 22:50 WBC 16.7 H (3.8-10.6) k/uL RBC 3.15 L (3.80-5.40) m/uL Hgb 11.0 L D (11.4-16.0) gm/dL Hct 33.6 L (34.0-46.0) % MCV 106.8 H D (80.0-100.0) fL MCHC (31.0-37.0) g/dL RDW 18.4 H (11.5-15.5) % Plt Count 65 L (150-450) k/uL Neutrophils # (Manual) (1.3-7.7) k/uL Lymphocytes # (Manual) (1.0-4.8) k/uL Metamyelocytes # (Man) (0) k/uL Myelocytes # (Manual) (0) k/uL Nucleated RBCs (0-0) /100 WBC Macrocytosis Marked A PT (9.0-12.0) sec INR (<1.2) ABG pO2 (83-108) mmHg ABG Total CO2 (19-24) mmol/L ABG O2 Saturation (94-97) % Chloride (98-107) mmol/L Carbon Dioxide (22-30) mmol/L BUN (7-17) mg/dL Glucose (74-99) mg/dL POC Glucose (mg/dL) 163 H (70-110) mg/dL Plasma Lactic Acid Nolberto 2.4 H* (0.7-2.0) mmol/L Calcium (8.4-10.2) mg/dL AST (14-36) U/L ALT (4-34) U/L Total Protein (6.3-8.2) g/dL Albumin (3.5-5.0) g/dL Crossmatch 09/03/21 09/03/21 09/03/21 Range/Units 04:10 04:10 05:30 WBC 14.1 H (3.8-10.6) k/uL RBC 3.34 L (3.80-5.40) m/uL Hgb 11.3 L (11.4-16.0) gm/dL Hct (34.0-46.0) % MCV 106.1 H (80.0-100.0) fL MCHC (31.0-37.0) g/dL RDW 18.7 H (11.5-15.5) % Plt Count 61 L (150-450) k/uL Neutrophils # (Manual) 13.50 H (1.3-7.7) k/uL Lymphocytes # (Manual) 0.56 L (1.0-4.8) k/uL Metamyelocytes # (Man) 0.14 H (0) k/uL Myelocytes # (Manual) (0) k/uL Nucleated RBCs 1 H (0-0) /100 WBC Macrocytosis Marked A PT (9.0-12.0) sec INR (<1.2) ABG pO2 (83-108) mmHg ABG Total CO2 (19-24) mmol/L ABG O2 Saturation (94-97) % Chloride 116 H (98-107) mmol/L Carbon Dioxide 21 L (22-30) mmol/L BUN 43 H (7-17) mg/dL Glucose 134 H (74-99) mg/dL POC Glucose (mg/dL) 138 H (70-110) mg/dL Plasma Lactic Acid Nolberto (0.7-2.0) mmol/L Calcium 7.5 L (8.4-10.2) mg/dL AST 111 H (14-36) U/L ALT 214 H (4-34) U/L Total Protein 3.3 L (6.3-8.2) g/dL Albumin 1.8 L (3.5-5.0) g/dL Crossmatch 09/03/21 09/03/21 Range/Units 05:32 05:45 WBC (3.8-10.6) k/uL RBC (3.80-5.40) m/uL Hgb (11.4-16.0) gm/dL Hct (34.0-46.0) % MCV (80.0-100.0) fL MCHC (31.0-37.0) g/dL RDW (11.5-15.5) % Plt Count (150-450) k/uL Neutrophils # (Manual) (1.3-7.7) k/uL Lymphocytes # (Manual) (1.0-4.8) k/uL Metamyelocytes # (Man) (0) k/uL Myelocytes # (Manual) (0) k/uL Nucleated RBCs (0-0) /100 WBC Macrocytosis PT (9.0-12.0) sec INR (<1.2) ABG pO2 183 H (83-108) mmHg ABG Total CO2 (19-24) mmol/L ABG O2 Saturation 99.9 H (94-97) % Chloride (98-107) mmol/L Carbon Dioxide (22-30) mmol/L BUN (7-17) mg/dL Glucose (74-99) mg/dL POC Glucose (mg/dL) 137 H (70-110) mg/dL Plasma Lactic Acid Nolberto (0.7-2.0) mmol/L Calcium (8.4-10.2) mg/dL AST (14-36) U/L ALT (4-34) U/L Total Protein (6.3-8.2) g/dL Albumin (3.5-5.0) g/dL Crossmatch Microbiology - Last 24 Hours (Table) 09/02/21 20:49 Sputum Culture - Preliminary Sputum 09/01/21 19:42 Blood Culture - Preliminary Blood No Growth after 24 hours 08/27/21 14:45 Blood Culture - Final Blood No Growth after 144 hours Assessment and Plan Assessment: Impression: Acute hypoxic respiratory failure secondary to sepsis, activity anemia, and suspect septic shock. Acute blood loss anemia secondary to bleeding at the PEG tube site. Failure to thrive. Urinary tract infection History of dementia Electrolytes imbalance Chronic atrial fibrillation Acute kidney injury Elevated troponin Normal pressure hydrocephalus History of hypertension Recommendation: Continue ventilatory support. Continue nutritional support. Hemodynamic support if necessary, however the patient is now off norepinephrine. Start patient on diuretics, patient has marginal urine output. May have to give albumin prior to Lasix. Continue antibiotics as per ID on the case. Consider weaning trial, however the patient has very poor neurological status to begin with, may have to discuss with family the issue of tracheostomy and eventual placement. Continue anticoagulation therapy and monitor for any signs of bleeding. Monitor hemoglobin daily. Will discuss with family CODE STATUS and possibly consider comfort care measures as her quality of life is extremely poor We'll continue to follow while in the ICU. Prognosis is very poor. Critical care time is over 30 minutes Time with Patient: Greater than 30
[2021-09-03 11:57] LABS: Glucose,Whole Blood 127 mg/dL (70-110)
[2021-09-03] MEDS ORDERED: DEXTROSE 5% IN WATER 100 ML with AMIODARONE 150 MG IV ONE (13:27)
--- NOTE | 2021-09-03 14:54 | CDI ---
Documentation Clarification Form Date: 09/03/2021 01:57:12 PM From: Peggy Bran RN, CCDS Admit Date: 08/11/2021 06:34:00 PM Patient Name: Lisbet Dobbins Visit Number: [id number] Discharge Date: ATTENTION: The Clinical Documentation Specialists (CDI) and [facility] Coding Staff appreciate your assistance in clarifying documentation. Please respond to the clarification below the line at the bottom and electronically sign. The CDI & [facility] Coding staff will review the response and follow-up if needed. Please note: Queries are made part of the Legal Health Record. If you have any questions, please contact the author of this message via ITS. Dr. J Carlos Bernstein Acute blood loss anemia secondary to bleeding at the PEG tube site is documented in the pulmonary progress note on 09/03/21 Additional clarification is requested regarding the relationship, if any, that exists between the diagnosis and the procedure. Patients procedure Diagnosis: Protein calorie malnutrition Post-Operative Diagnosis: Same Procedure performed: EGD with PEG tube placement History/Risk Factors: Atrial fibrillation, Asthma, COPD, Dementia, Hypertension, CKD III, Clinical Indicators: 75-year-old female present with weakness, decreased appetite. She has history of paroxysmal atrial fibrillation on Eliquis 5 mg po daily 08/11/21-09/01/21. 08/31/21 surgical consult notes severe protein calorie malnutrition. Patient had a PEG tube placement on 09/01/21. On 09/02 she was transferred to ICU. Progress note documents some mild oozing at the PEG tube site. 08/29 HGB 10.3, HCT 33.4 09/01 HGB 9.5, 32.3 09/02 HGB 8.1, 27.6, 5.8, 19.4 Treatment: ICU/[place] monitoring Monitor CBC, Transfuse 2 units PRBC What relationship, if any, exists between the diagnosis of acute blood loss anemia and the procedure? [ ] Acute blood loss anemia is a complication of surgical procedure [ ] Acute blood loss anemia is an expected outcome of the surgical procedure [ ] Acute blood loss anemia is related to patients co-morbid condition(s) of & not a complication of the procedure [ ] Other please specify ____ [ xxx ] Unable to determine (Template Last Revised: April 2020) MTDD
--- NOTE | 2021-09-03 16:34 | P.PN ---
Subjective Progress Note Date: 09/03/21 CHIEF COMPLAINT: Protein malnutrition HISTORY OF PRESENT ILLNESS: The patient is a 75-year-old female status post gastrostomy tube placement 09/01/2021 for moderate to severe protein malnutrition. Patient intubated sedated in the intensive care unit Family is at bedside. Patient did receive blood transfusions yesterday for hemoglobin 5.8, 2 units packed RBCs. Hemoglobin is over 11.0 from 5.8. No signs of bleeding along her G-tube site. ROS: No fevers over 100.0 or chills. Has chronic atrial fibrillation. Mechanically ventilated. Has dementia PHYSICAL EXAM: VITAL SIGNS: Reviewed CONSTITUTIONAL: Well developed and in no acute distress. EYES: Conjuctivae without sclera icterus. Extraocular movements grossly intact. HEAD, EARS, NOSE, THROAT: Moist buccal mucosa. Head is atraumatic, n ormocephalic. Hears conversational speech. No nasal drainage. RESPIRATORY: Non-labored respirations and equal bilateral excursions. Mechanically ventilated and intubated CARDIOVASCULAR: Palpable 2+ radial pulses. ABDOMEN: Gastrostomy tube site clean dry and intact. No active bleeding. On tube feeds of 10 mL per MUSCULOSKELETAL: No gross deformity of the lower extremities noted. No clubbin g. No cyanosis. SKIN: Good skin turgor. Well perfused. NEUROLOGIC: No focal or lateralizing signs. PSYCH: Sedated CLINICAL LABS: Reviewed. Hemoglobin of 5.8-11.3. WBC count 22.6-14.1. Creatin ine normal 0.61. ASSESSMENT: 1. Moderate to severe protein calorie malnutrition 2. Hypoxic respiratory failure 3. Atrial fibrillation on chronic anticoagulation 4. Dementia PLAN: 1. Continue off blood thinners. 2. Monitor hemoglobin. 3. May adjust PEG tube feedings per dietary goals Objective - Vital Signs Vital signs: Vital Signs Temp 99.2 F 09/03/21 12:00 Pulse 103 H 09/03/21 15:36 Resp 24 09/03/21 15:30 BP 108/90 09/03/21 15:30 Pulse Ox 97 09/03/21 15:30 FiO2 30 09/03/21 15:32 Intake & Output 09/02/21 09/03/21 09/03/21 18:59 06:59 18:59 Intake Total 2817.901 2040.677 628.474 Output Total 349 689 9022 Balance 2472.901 1722.677 -1153.526 Weight 64.5 kg 69.3 kg 69.3 kg Intake: IV 2300 1500 420 Sodium Chloride 0.9% 1, 300 1500 420 000 ml @ 20 mls/hr IV . Q24H [facility] Rx#:[id number] Sodium Chloride 0.9% 2, 2000 000 ml @ 999 mls/hr IV . Q2H1M [facility] Rx#:[id number] Intake, IV Titration 147.901 265.677 108.474 Amount DAPTOmycin 390 mg In 50 Sodium Chloride 0.9% 50 ml @ 100 mls/hr IVPB Q24H [facility] Rx#:[id number] Diltiazem 125 mg In 4.417 Sodium Chloride 0.9% 100 ml @ 5 MG/HR 5 mls/hr IV .Q24H [facility] Rx#:[id number] Norepinephrine 32 mg In 47.901 15.677 1.477 Sodium Chloride 0.9% 218 ml @ 0.05 MCG/KG/MIN 1. 512 mls/hr IV .Q24H [facility] Rx#:[id number] Piperacillin-Tazobactam 3 200 .375 gm In Sodium Chloride 0.9% 100 ml @ 25 mls/hr IVPB Q8H [facility] Rx#: [id number] propofoL 1,000 mg In 100.000 102.580 Empty Bag 1 bag @ 5 MCG/ KG/MIN 1.935 mls/hr IV . Q24H [facility] Rx#:[id number] Oral 10 Tube Feeding 60 Blood Product 310 275 Rc As-1 Unit 310 [id number] Rc Pheresis As-3 Unit 0 275 [id number] Other 60 30 Output: Gastric Drainage 110 Urine 049 874 6248 Other: Voiding Method Indwelling Catheter Indwelling Catheter Indwelling Catheter ABP, PAP, CO, CI - Last Documented Arterial Blood Pressure 101/50 - Labs CBC & Chem 7: 09/03/21 04:10 09/03/21 04:10 Labs: Abnormal Lab Results - Last 24 Hours (Table) 09/02/21 09/02/21 09/02/21 Range/Units 12:03 16:56 17:29 WBC (3.8-10.6) k/uL RBC (3.80-5.40) m/uL Hgb (11.4-16.0) gm/dL Hct (34.0-46.0) % MCV (80.0-100.0) fL RDW (11.5-15.5) % Plt Count (150-450) k/uL Neutrophils # (Manual) (1.3-7.7) k/uL Lymphocytes # (Manual) (1.0-4.8) k/uL Metamyelocytes # (Man) (0) k/uL Nucleated RBCs (0-0) /100 WBC Macrocytosis ABG pO2 (83-108) mmHg ABG O2 Saturation (94-97) % Chloride (98-107) mmol/L Carbon Dioxide (22-30) mmol/L BUN (7-17) mg/dL Glucose (74-99) mg/dL POC Glucose (mg/dL) 163 H (70-110) mg/dL Plasma Lactic Acid Nolberto 2.4 H* (0.7-2.0) mmol/L Calcium (8.4-10.2) mg/dL AST (14-36) U/L ALT (4-34) U/L Total Protein (6.3-8.2) g/dL Albumin (3.5-5.0) g/dL Crossmatch See Detail 09/02/21 09/03/21 09/03/21 Range/Units 22:50 04:10 04:10 WBC 16.7 H 14.1 H (3.8-10.6) k/uL RBC 3.15 L 3.34 L (3.80-5.40) m/uL Hgb 11.0 L D 11.3 L (11.4-16.0) gm/dL Hct 33.6 L (34.0-46.0) % MCV 106.8 H D 106.1 H (80.0-100.0) fL RDW 18.4 H 18.7 H (11.5-15.5) % Plt Count 65 L 61 L (150-450) k/uL Neutrophils # (Manual) 13.50 H (1.3-7.7) k/uL Lymphocytes # (Manual) 0.56 L (1.0-4.8) k/uL Metamyelocytes # (Man) 0.14 H (0) k/uL Nucleated RBCs 1 H (0-0) /100 WBC Macrocytosis Marked A Marked A ABG pO2 (83-108) mmHg ABG O2 Saturation (94-97) % Chloride 116 H (98-107) mmol/L Carbon Dioxide 21 L (22-30) mmol/L BUN 43 H (7-17) mg/dL Glucose 134 H (74-99) mg/dL POC Glucose (mg/dL) (70-110) mg/dL Plasma Lactic Acid Nolberto (0.7-2.0) mmol/L Calcium 7.5 L (8.4-10.2) mg/dL AST 111 H (14-36) U/L ALT 214 H (4-34) U/L Total Protein 3.3 L (6.3-8.2) g/dL Albumin 1.8 L (3.5-5.0) g/dL Crossmatch 09/03/21 09/03/21 09/03/21 Range/Units 05:30 05:32 05:45 WBC (3.8-10.6) k/uL RBC (3.80-5.40) m/uL Hgb (11.4-16.0) gm/dL Hct (34.0-46.0) % MCV (80.0-100.0) fL RDW (11.5-15.5) % Plt Count (150-450) k/uL Neutrophils # (Manual) (1.3-7.7) k/uL Lymphocytes # (Manual) (1.0-4.8) k/uL Metamyelocytes # (Man) (0) k/uL Nucleated RBCs (0-0) /100 WBC Macrocytosis ABG pO2 183 H (83-108) mmHg ABG O2 Saturation 99.9 H (94-97) % Chloride (98-107) mmol/L Carbon Dioxide (22-30) mmol/L BUN (7-17) mg/dL Glucose (74-99) mg/dL POC Glucose (mg/dL) 138 H 137 H (70-110) mg/dL Plasma Lactic Acid Nolberto (0.7-2.0) mmol/L Calcium (8.4-10.2) mg/dL AST (14-36) U/L ALT (4-34) U/L Total Protein (6.3-8.2) g/dL Albumin (3.5-5.0) g/dL Crossmatch 09/03/21 Range/Units 11:56 WBC (3.8-10.6) k/uL RBC (3.80-5.40) m/uL Hgb (11.4-16.0) gm/dL Hct (34.0-46.0) % MCV (80.0-100.0) fL RDW (11.5-15.5) % Plt Count (150-450) k/uL Neutrophils # (Manual) (1.3-7.7) k/uL Lymphocytes # (Manual) (1.0-4.8) k/uL Metamyelocytes # (Man) (0) k/uL Nucleated RBCs (0-0) /100 WBC Macrocytosis ABG pO2 (83-108) mmHg ABG O2 Saturation (94-97) % Chloride (98-107) mmol/L Carbon Dioxide (22-30) mmol/L BUN (7-17) mg/dL Glucose (74-99) mg/dL POC Glucose (mg/dL) 127 H (70-110) mg/dL Plasma Lactic Acid Nolberto (0.7-2.0) mmol/L Calcium (8.4-10.2) mg/dL AST (14-36) U/L ALT (4-34) U/L Total Protein (6.3-8.2) g/dL Albumin (3.5-5.0) g/dL Crossmatch Microbiology - Last 24 Hours (Table) 09/02/21 12:03 Blood Culture - Preliminary Blood No Growth after 24 hours 09/02/21 20:49 Sputum Culture - Preliminary Sputum 09/01/21 19:42 Blood Culture - Preliminary Blood No Growth after 24 hours 08/27/21 14:45 Blood Culture - Final Blood No Growth after 144 hours
[2021-09-03 17:34] LABS: Glucose,Whole Blood 115 mg/dL (70-110)
[2021-09-03 17:35] LABS: ABG Base Excess -0.3 mmol/L; ABG HCO3 24 mmol/L (21-25); ABG Oxygen Saturation 98.1 % (94-97); ABG PCO2 34 mmHg (35-45); ABG PH 7.45 (7.35-7.45); ABG PO2 91 mmHg (83-108); ABG TCO2 25 mmol/L (19-24); Allen Test Performed? Yes
[2021-09-03] MEDS: AMIODARONE 450 MG in DEXTROSE 5% IN WATER 250 ML IV SCH ×4 (19:58→19:59)
[2021-09-03] MEDS: NOREPINEPHRINE 32 MG in SODIUM CHLORIDE 0.9% 218 ML IV SCH (19:59)
[2021-09-03] MEDS ORDERED: MONTELUKAST 10 MG TAB PO STA (22:02)
--- NOTE | 2021-09-03 22:31 | P.PN ---
Subjective Progress Note Date: 09/03/21 Principal diagnosis: Leukocytosis and bacteremia Patient is a 75-year-old -[place] female initially presented to hospital on 08/11/2021 for increasing weakness slurred speech with concern for possible CVA patient has been on steroids and Zosyn per pulmonary patient was noticed to have elevated white count that prompted this infectious disease consultation. Patient UA was negative. CT Abdominal pelvis didn't mention any abnormality echocardiogram negative for any vegetation On today's evaluation that is 09/03/2021, the patient remains to be afebrile, patient is intubated on the vent, the patient is hemodynamically stable not requiring any pressor support, FiO2 is stable no significant purulent secretion through the ET or diarrhea reported by the nursing staff Objective - Vital Signs Vital signs: Vital Signs Temp 99.2 F 09/03/21 12:00 Pulse 112 H 09/03/21 13:30 Resp 24 09/03/21 13:30 BP 108/90 09/02/21 23:15 Pulse Ox 98 09/03/21 13:30 FiO2 30 09/03/21 13:00 Intake & Output 09/02/21 09/03/21 09/03/21 18:59 06:59 18:59 Intake Total 2817.901 2040.677 568.474 Output Total 345 318 857 Balance 2472.901 1722.677 -288.526 Weight 64.5 kg 69.3 kg 69.3 kg Intake: IV 2300 1500 380 Sodium Chloride 0.9% 1, 300 1500 380 000 ml @ 20 mls/hr IV . Q24H [facility] Rx#:[id number] Sodium Chloride 0.9% 2, 2000 000 ml @ 999 mls/hr IV . Q2H1M [facility] Rx#:[id number] Intake, IV Titration 147.901 265.677 108.474 Amount DAPTOmycin 390 mg In 50 Sodium Chloride 0.9% 50 ml @ 100 mls/hr IVPB Q24H [facility] Rx#:[id number] Diltiazem 125 mg In 4.417 Sodium Chloride 0.9% 100 ml @ 5 MG/HR 5 mls/hr IV .Q24H [facility] Rx#:[id number] Norepinephrine 32 mg In 47.901 15.677 1.477 Sodium Chloride 0.9% 218 ml @ 0.05 MCG/KG/MIN 1. 512 mls/hr IV .Q24H [facility] Rx#:[id number] Piperacillin-Tazobactam 3 200 .375 gm In Sodium Chloride 0.9% 100 ml @ 25 mls/hr IVPB Q8H [facility] Rx#: [id number] propofoL 1,000 mg In 100.000 102.580 Empty Bag 1 bag @ 5 MCG/ KG/MIN 1.935 mls/hr IV . Q24H [facility] Rx#:[id number] Tube Feeding 50 Blood Product 310 275 Rc As-1 Unit 310 [id number] Rc Pheresis As-3 Unit 0 275 [id number] Other 60 30 Output: Gastric Drainage 110 Urine 345 318 747 Other: Voiding Method Indwelling Catheter Indwelling Catheter Indwelling Catheter ABP, PAP, CO, CI - Last Documented Arterial Blood Pressure 118/63 - Exam GENERAL DESCRIPTION: Elderly female intubated on the vent LUNGS: Unlabored breathing. Decreased breath sound the base HEART: S1, S2, regular rate and rhythm. ABDOMEN: Soft, no tenderness , guarding or rigidity, no organomegaly EXTREMITIES: No edema of feet. - Labs CBC & Chem 7: 09/03/21 04:10 09/03/21 04:10 Labs: Abnormal Lab Results - Last 24 Hours (Table) 09/02/21 09/02/21 09/02/21 Range/Units 12:03 16:56 17:29 WBC (3.8-10.6) k/uL RBC (3.80-5.40) m/uL Hgb (11.4-16.0) gm/dL Hct (34.0-46.0) % MCV (80.0-100.0) fL RDW (11.5-15.5) % Plt Count (150-450) k/uL Neutrophils # (Manual) (1.3-7.7) k/uL Lymphocytes # (Manual) (1.0-4.8) k/uL Metamyelocytes # (Man) (0) k/uL Nucleated RBCs (0-0) /100 WBC Macrocytosis ABG pO2 (83-108) mmHg ABG O2 Saturation (94-97) % Chloride (98-107) mmol/L Carbon Dioxide (22-30) mmol/L BUN (7-17) mg/dL Glucose (74-99) mg/dL POC Glucose (mg/dL) 163 H (70-110) mg/dL Plasma Lactic Acid Nolberto 2.4 H* (0.7-2.0) mmol/L Calcium (8.4-10.2) mg/dL AST (14-36) U/L ALT (4-34) U/L Total Protein (6.3-8.2) g/dL Albumin (3.5-5.0) g/dL Crossmatch See Detail 09/02/21 09/03/21 09/03/21 Range/Units 22:50 04:10 04:10 WBC 16.7 H 14.1 H (3.8-10.6) k/uL RBC 3.15 L 3.34 L (3.80-5.40) m/uL Hgb 11.0 L D 11.3 L (11.4-16.0) gm/dL Hct 33.6 L (34.0-46.0) % MCV 106.8 H D 106.1 H (80.0-100.0) fL RDW 18.4 H 18.7 H (11.5-15.5) % Plt Count 65 L 61 L (150-450) k/uL Neutrophils # (Manual) 13.50 H (1.3-7.7) k/uL Lymphocytes # (Manual) 0.56 L (1.0-4.8) k/uL Metamyelocytes # (Man) 0.14 H (0) k/uL Nucleated RBCs 1 H (0-0) /100 WBC Macrocytosis Marked A Marked A ABG pO2 (83-108) mmHg ABG O2 Saturation (94-97) % Chloride 116 H (98-107) mmol/L Carbon Dioxide 21 L (22-30) mmol/L BUN 43 H (7-17) mg/dL Glucose 134 H (74-99) mg/dL POC Glucose (mg/dL) (70-110) mg/dL Plasma Lactic Acid Nolberto (0.7-2.0) mmol/L Calcium 7.5 L (8.4-10.2) mg/dL AST 111 H (14-36) U/L ALT 214 H (4-34) U/L Total Protein 3.3 L (6.3-8.2) g/dL Albumin 1.8 L (3.5-5.0) g/dL Crossmatch 09/03/21 09/03/21 09/03/21 Range/Units 05:30 05:32 05:45 WBC (3.8-10.6) k/uL RBC (3.80-5.40) m/uL Hgb (11.4-16.0) gm/dL Hct (34.0-46.0) % MCV (80.0-100.0) fL RDW (11.5-15.5) % Plt Count (150-450) k/uL Neutrophils # (Manual) (1.3-7.7) k/uL Lymphocytes # (Manual) (1.0-4.8) k/uL Metamyelocytes # (Man) (0) k/uL Nucleated RBCs (0-0) /100 WBC Macrocytosis ABG pO2 183 H (83-108) mmHg ABG O2 Saturation 99.9 H (94-97) % Chloride (98-107) mmol/L Carbon Dioxide (22-30) mmol/L BUN (7-17) mg/dL Glucose (74-99) mg/dL POC Glucose (mg/dL) 138 H 137 H (70-110) mg/dL Plasma Lactic Acid Nolberto (0.7-2.0) mmol/L Calcium (8.4-10.2) mg/dL AST (14-36) U/L ALT (4-34) U/L Total Protein (6.3-8.2) g/dL Albumin (3.5-5.0) g/dL Crossmatch 09/03/21 Range/Units 11:56 WBC (3.8-10.6) k/uL RBC (3.80-5.40) m/uL Hgb (11.4-16.0) gm/dL Hct (34.0-46.0) % MCV (80.0-100.0) fL RDW (11.5-15.5) % Plt Count (150-450) k/uL Neutrophils # (Manual) (1.3-7.7) k/uL Lymphocytes # (Manual) (1.0-4.8) k/uL Metamyelocytes # (Man) (0) k/uL Nucleated RBCs (0-0) /100 WBC Macrocytosis ABG pO2 (83-108) mmHg ABG O2 Saturation (94-97) % Chloride (98-107) mmol/L Carbon Dioxide (22-30) mmol/L BUN (7-17) mg/dL Glucose (74-99) mg/dL POC Glucose (mg/dL) 127 H (70-110) mg/dL Plasma Lactic Acid Nolberto (0.7-2.0) mmol/L Calcium (8.4-10.2) mg/dL AST (14-36) U/L ALT (4-34) U/L Total Protein (6.3-8.2) g/dL Albumin (3.5-5.0) g/dL Crossmatch Microbiology - Last 24 Hours (Table) 09/02/21 20:49 Sputum Culture - Preliminary Sputum 09/01/21 19:42 Blood Culture - Preliminary Blood No Growth after 24 hours 08/27/21 14:45 Blood Culture - Final Blood No Growth after 144 hours Assessment and Plan (1) Leukocytosis Current Visit: Yes Status: Acute Code(s): D72.829 - ELEVATED WHITE BLOOD CELL COUNT, UNSPECIFIED SNOMED Code(s): 100321092 (2) Bacteremia Current Visit: Yes Status: Acute Code(s): R78.81 - BACTEREMIA SNOMED Code(s): 8477988 Plan: 1patient with Enterococcus bacteremia which usually of gut or urinary source however the UA on 08/26/2020 was negative, blood cultures repeated so far negative, CT abdominal pelvis did not show any acute abnormality, echocardiogram did not show any vegetation possible transient bacteremia from either GI or urinary source 2- patient subsequently did have worsening of her clinical condition and drop in hemoglobin questionably from the PEG tube site, patient Nenitaquis has been put on hold, blood and sputum culture has been obtained which are currently pending patient to continue with the Zosyn and daptomycin and monitor clinical course closely Time with Patient: Less than 30
[2021-09-03] MEDS: SODIUM CHLORIDE 0.9% IVPB SCH (23:07)
[2021-09-03] MEDS: DAPTOMYCIN IVPB SCH (23:07)
[2021-09-04 00:20] LABS: Glucose,Whole Blood 114 mg/dL (70-110)
[2021-09-04] MEDS: INSULIN ASPART (NovoLOG) 100 UNIT/ML VIAL SQ SCH ×4 (00:37→18:27)
[2021-09-04 01:19] LABS: Glucose,Whole Blood 104 mg/dL (70-110)
[2021-09-04] MEDS: DILTIAZEM 125 MG in SODIUM CHLORIDE 0.9% 100 ML IV SCH (01:40)
[2021-09-04] MEDS: IPRATROPIUM-ALBUTEROL 3 ML NEB INHALATION SCH ×6 (03:18→23:35)
[2021-09-04 05:30] LABS: Glucose,Whole Blood 114 mg/dL (70-110)
[2021-09-04] MEDS: SODIUM CHLORIDE 0.9% 1,000 ML IV SCH (05:32)
[2021-09-04] MEDS: PIPERACILLIN-TAZOBACTAM 3.375 GM in SODIUM CHLORIDE 0.9% 100 ML IVPB SCH ×3 (05:36→21:17)
[2021-09-04] MEDS: AMIODARONE 450 MG in DEXTROSE 5% IN WATER 250 ML IV SCH ×2 (05:40)
[2021-09-04 05:47] LABS: Anisocytosis Slight; Basophils % (A) 0 %; Eosinophils # (A) 0.1 k/uL (0-0.7); Eosinophils % (A) 1 %; HCT 28.3 % (34.0-46.0); Hypochromasia Moderate; Lymphocytes # (A) 0.3 k/uL (1.0-4.8); Lymphocytes % (A) 2 %; MCH 33.4 pg (25.0-35.0); MCV 104.5 fL (80.0-100.0); Macrocytosis Moderate; Mean Platelet Volume 10.7; Monocytes # (A) 0.3 k/uL (0-1.0); Monocytes % (A) 3 %; Neutrophils # (A) 10.2 k/uL (1.3-7.7); Neutrophils % (A) 94 %; Poikilocytosis Slight; RDW 18.2 % (11.5-15.5); WBC 10.9 k/uL (3.8-10.6)
[2021-09-04 05:54] LABS: ALT 136 U/L (4-34); AST 55 U/L (14-36); African American GFR (CKD) >90 (>60 ml/min/1.73 sqM); Alkaline Phosphatase 55 U/L (38-126); Anion Gap 2 mmol/L; Blood Urea Nitrogen 28 mg/dL (7-17); Calcium 7.6 mg/dL (8.4-10.2); Carbon Dioxide 25 mmol/L (22-30); Chloride 113 mmol/L (98-107); Glucose 103 mg/dL (74-99); Non-African American GFR(CKD) 89 (>60 ml/min/1.73 sqM); Sodium 140 mmol/L (137-145); Total Bilirubin 1.1 mg/dL (0.2-1.3); Total Protein 3.5 g/dL (6.3-8.2)
[2021-09-04 05:58] LABS: Platelet Count 49 k/uL (150-450)
[2021-09-04 06:01] LABS: ABG Base Excess 1.2 mmol/L; ABG HCO3 25 mmol/L (21-25); ABG Oxygen Saturation 98.6 % (94-97); ABG PCO2 35 mmHg (35-45); ABG PH 7.46 (7.35-7.45); ABG PO2 97 mmHg (83-108); ABG TCO2 26 mmol/L (19-24); Allen Test Performed? Yes
[2021-09-04] MEDS ORDERED: Potassium Replacement Protocol 1 EACH MISC MISCELLANE PRN (06:02)
[2021-09-04] MEDS: POTASSIUM CHLORIDE 20 MEQ in WATER FOR INJECTION 1 100ML.BAG IVPB SCH ×2 (06:35→08:25)
--- NOTE | 2021-09-04 07:33 | XR ---
EXAMINATION TYPE: XR chest 1V portable DATE OF EXAM: 09/04/2021 COMPARISON: 08/26/2021 INDICATION: Tube placement TECHNIQUE: Single frontal view of the chest is obtained. FINDINGS: The heart size is normal. The pulmonary vasculature is normal. Right lower lobe infiltrate is resolving. Costophrenic angle is blunted. Endotracheal tube tip is 3.9 cm above the hortencia. IMPRESSION: 1. Improving right lower lobe infiltrate
[2021-09-04] MEDS: SYMBICORT 160-4.5 MCG INHALER INHALATION SCH ×2 (07:34→20:02)
[2021-09-04] MEDS: PANTOPRAZOLE 40 MG/10 ML VIAL IVP SCH (07:44)
[2021-09-04] MEDS: KETOTIFEN 0.025% OPHTH DROPS 5 ML BTL BOTH EYES SCH ×2 (07:44→20:49)
[2021-09-04] MEDS: APIXABAN 5 MG TAB PO SCH ×2 (07:44→20:49)
[2021-09-04] MEDS: FLUCONAZOLE 100 MG TAB PO SCH (07:44)
[2021-09-04] MEDS: CHLORHEXIDINE GLUCONATE 15 ML CUP MUCOUS MEM SCH ×2 (07:44→20:49)
--- NOTE | 2021-09-04 09:22 | P.PN ---
Subjective Progress Note Date: 09/04/21 This is a pleasant 75-year-old with past medical history significant for advanced dementia, postural hypotension, COPD, chronic kidney disease, hypertension, paroxysmal atrial fibrillation on Eliquis, Bronchitis. She used to follow in the office with Dr. Smart. We are being consulted for elevated troponin. Patient is a poor historian unable to state why she came to the hospital. She has no complaints at bedside. Denies any pain, chest pain, shortness of breath. Most recent echo 06/2021 revealed EF 5560%, moderately increase posterior wall thickness. Patient was admitted to the hospital in Nov with complaints of chest pain and shortness of breath. She was evaluated by nuclear Stress test and echocardiogram. Nuclear stress test showed mild ischemia. She was evaluated Dr. Cotton, nuclear stress test was reviewed by cardiology and medical therapy was advised. Patient is seen today resting comfortably in the ICU she remains intubated. Patient has converted back to sinus rhythm. She remains on Cardizem drip and amiodarone drip. Blood pressure is 122/57 heart rate 82. Will discontinue Cardizem drip. And convert patient to oral amiodarone 400 mg twice a day. She continues on Eliquis for anticoagulation. Potassium is 3, sodium 140 nightly 28 creatinine 0.61 hemoglobin 9 platelets 49, AST 55 ALT 136. Plan is to attempt to extubate the patient today. Objective - Vital Signs Vital signs: Vital Signs Temp 98.8 F 09/04/21 08:00 Pulse 82 09/04/21 08:10 Resp 21 09/04/21 08:00 BP 108/90 09/04/21 08:00 Pulse Ox 100 09/04/21 08:00 FiO2 30 09/04/21 08:00 Intake & Output 09/03/21 09/04/21 09/04/21 18:59 06:59 18:59 Intake Total 827.974 836.392 80 Output Total 2282 795 78 Balance -1454.026 41.392 2 Weight 69.3 kg 72.4 kg Intake: IV 480 380 60 Piperacillin-Tazobactam 3 100 .375 gm In Sodium Chloride 0.9% 100 ml @ 25 mls/hr IVPB Q8H [facility] Rx#: [id number] Sodium Chloride 0.9% 1, 480 280 60 000 ml @ 20 mls/hr IV . Q24H [facility] Rx#:[id number] Intake, IV Titration 187.974 286.392 Amount Amiodarone 450 mg In 161.392 Dextrose 5% in Water 250 ml @ 0.5 MG/MIN 16.667 mls/hr IV .Q15H [facility] Rx#: [id number] Diltiazem 125 mg In 83.917 125 Sodium Chloride 0.9% 100 ml @ 5 MG/HR 5 mls/hr IV .Q24H [facility] Rx#:[id number] Norepinephrine 32 mg In 1.477 Sodium Chloride 0.9% 218 ml @ 0.05 MCG/KG/MIN 1. 512 mls/hr IV .Q24H [facility] Rx#:[id number] propofoL 1,000 mg In 102.580 Empty Bag 1 bag @ 5 MCG/ KG/MIN 1.935 mls/hr IV . Q24H [facility] Rx#:[id number] Oral 10 Tube Feeding 90 170 20 Other 60 Output: Gastric Drainage 110 Urine 2172 795 78 Other: Voiding Method Indwelling Catheter Indwelling Catheter Indwelling Catheter ABP, PAP, CO, CI - Last Documented Arterial Blood Pressure 119/57 - Exam PHYSICAL EXAM: VITAL SIGNS: Reviewed. GENERAL: Well-developed in no acute distress. HEENT: Head is normocephalic. Pupils are equal, round. Sclerae anicteric. Mucous membranes of the mouth are moist. NECK: Supple. No JVD or thyromegaly RESPIRATORY: Respirations even and unlabored. Lungs diminished to auscultation b ilaterally. Intubated and sedated CARDIO: Regular rate and rhythm. S1 and S2 heard. No murmur or gallops. EXTREMITIES: Normal range of motion. No clubbing or cyanosis. Peripheral pulses intact. Negative for bilateral lower extremity edema NEURO: Orientated to person, time, mood is appropriate - Labs CBC & Chem 7: 09/04/21 05:30 09/04/21 05:30 Labs: Abnormal Lab Results - Last 24 Hours (Table) 09/03/21 09/03/21 09/03/21 Range/Units 11:56 17:32 17:33 WBC (3.8-10.6) k/uL RBC (3.80-5.40) m/uL Hgb (11.4-16.0) gm/dL Hct (34.0-46.0) % MCV (80.0-100.0) fL RDW (11.5-15.5) % Plt Count (150-450) k/uL Neutrophils # (1.3-7.7) k/uL Lymphocytes # (1.0-4.8) k/uL ABG pH (7.35-7.45) ABG pCO2 34 L (35-45) mmHg ABG Total CO2 25 H (19-24) mmol/L ABG O2 Saturation 98.1 H (94-97) % Potassium (3.5-5.1) mmol/L Chloride (98-107) mmol/L BUN (7-17) mg/dL Glucose (74-99) mg/dL POC Glucose (mg/dL) 127 H 115 H (70-110) mg/dL Calcium (8.4-10.2) mg/dL AST (14-36) U/L ALT (4-34) U/L Total Protein (6.3-8.2) g/dL Albumin (3.5-5.0) g/dL 09/04/21 09/04/21 09/04/21 Range/Units 00:18 05:28 05:30 WBC 10.9 H (3.8-10.6) k/uL RBC 2.70 L (3.80-5.40) m/uL Hgb 9.0 L D (11.4-16.0) gm/dL Hct 28.3 L (34.0-46.0) % MCV 104.5 H (80.0-100.0) fL RDW 18.2 H (11.5-15.5) % Plt Count 49 L (150-450) k/uL Neutrophils # 10.2 H (1.3-7.7) k/uL Lymphocytes # 0.3 L (1.0-4.8) k/uL ABG pH (7.35-7.45) ABG pCO2 (35-45) mmHg ABG Total CO2 (19-24) mmol/L ABG O2 Saturation (94-97) % Potassium (3.5-5.1) mmol/L Chloride (98-107) mmol/L BUN (7-17) mg/dL Glucose (74-99) mg/dL POC Glucose (mg/dL) 114 H 114 H (70-110) mg/dL Calcium (8.4-10.2) mg/dL AST (14-36) U/L ALT (4-34) U/L Total Protein (6.3-8.2) g/dL Albumin (3.5-5.0) g/dL 09/04/21 09/04/21 Range/Units 05:30 05:56 WBC (3.8-10.6) k/uL RBC (3.80-5.40) m/uL Hgb (11.4-16.0) gm/dL Hct (34.0-46.0) % MCV (80.0-100.0) fL RDW (11.5-15.5) % Plt Count (150-450) k/uL Neutrophils # (1.3-7.7) k/uL Lymphocytes # (1.0-4.8) k/uL ABG pH 7.46 H (7.35-7.45) ABG pCO2 (35-45) mmHg ABG Total CO2 26 H (19-24) mmol/L ABG O2 Saturation 98.6 H (94-97) % Potassium 3.0 L (3.5-5.1) mmol/L Chloride 113 H (98-107) mmol/L BUN 28 H (7-17) mg/dL Glucose 103 H (74-99) mg/dL POC Glucose (mg/dL) (70-110) mg/dL Calcium 7.6 L (8.4-10.2) mg/dL AST 55 H (14-36) U/L ALT 136 H (4-34) U/L Total Protein 3.5 L (6.3-8.2) g/dL Albumin 2.0 L (3.5-5.0) g/dL Microbiology - Last 24 Hours (Table) 09/02/21 20:49 Gram Stain - Preliminary Sputum Sputum Culture - Preliminary 09/01/21 19:42 Blood Culture - Preliminary Blood No Growth after 48 hours 09/02/21 12:03 Blood Culture - Preliminary Blood No Growth after 24 hours Assessment and Plan Assessment: Acute hypoxic respiratory failure secondary to sepsis Chronic atrial fibrillation Acute kidney injury Elevated troponin secondary to acute kidney injury Altered mental status History of hypertension Plan: Discontinue Cardizem drip Discontinue amiodarone drip and start oral amiodarone 400 mg twice a day Continue with current cardiac medications Continue to titrate pressors as tolerated Continue with Eliquis 5 mg twice a day Continue with Telemetry monitoring Further recommendations based on clinical course The above impression and plan of care have been discussed and directed by the signing physician. Leandra Ambriz, nurse practitioner, acting as scribe for signing physician.
[2021-09-04] MEDS: AMIODARONE 200 MG TAB PO SCH ×2 (09:54→20:49)
[2021-09-04 11:46] LABS: Glucose,Whole Blood 110 mg/dL (70-110)
--- NOTE | 2021-09-04 11:52 | P.PN ---
Subjective Progress Note Date: 09/04/21 Principal diagnosis: Acute hypoxic respiratory failure, sepsis, septic shock This is a 75-year-old female with history of multiple medical problems including dementia, COPD, chronic atrial fibrillation, seizure disorder, failure to thrive, hypertension, patient was admitted on 08/11/21, although the patient has been in the hospital over a half dozen times in the last few months with similar issues. Discharged last on 07/28, readmitted on 08/11 and has been in the hospital since then with multiple medical problems, failure to thrive, and this time she had enterococcal bacteremia. She was seen by Dr. Mcbride and by , as well as Dr. Nguyen, and being treated with antibiotics. Recently she had a PEG tube placed, and apparently she had issues of bleeding related to the PEG tube placement over the last couple of days. Patient has been on eliquis which I have placed on hold at present. Today I happened to be seeing the patient next door, and the rapid response team was working on this patient were and the patient was unresponsive, she had very shallow breathing, unable to protect her airways, she was also profoundly hypotensive and could barely get a blood press ure on this patient. The rapid response team asked me to evaluate the patient since she is going to be transferred to the ICU and Dr. Mcbride has no active privileges in the ICU. I evaluated the patient, intubated the patient with a size 7.5 endotracheal tube. Given fluid boluses. Started the patient on norepinephrine. A central line was established patient transferred to the ICU and a left radial arterial line was also placed. Updated the family at bedside on her condition and obviously the patient is septic, and she is on proper antibiotics as per infectious disease on the case. Patient will receive more fluids, and we will continue to follow closely in the ICU. Reevaluated today on 09/03/21, patient remains in the ICU, intubated and mechanically ventilated. Patient is on assist control rate of 2010 volume 400 FiO2 30% and PEEP of 5 earlier ABG on 50% showed a pO2 of 183 pCO2 36 pH of 7.38, and her FiO2 was decreased down to 30%. Patient is off norepinephrine, she didn't require norepinephrine yesterday, and she was on a lot of it for a while. However she was given fluid boluses and her blood pressure stabilized. She was also given 2 units of packed RBCs for low hemoglobin. Patient is now off norepinephrine, she is on IV fluid 0.9 normal saline at 100 mL per hour, she is also on amiodarone 0.5 mg/m, patient is on Glucerna for enteral feeding. Her urine output is marginal, has the patient will be given albumin and Lasix she is on Lovenox but her platelets are low, and I suggested that we go back to eliquis at 5 mg twice a day via PEG tube. No further bleeding noted around the site of the peg tube. Patient remains unresponsive. Not following any instructions, however I plan to discontinue propofol and assess mental status off sedation. Labs today showed WBC count of 14.1 hemoglobin 11.3. Platelets are 61,000. Basic metabolic profile is normal renal profile is normal liver profile is slightly abnormal with elevated AST of 111 and ALT of 214. Reevaluated today on 09/04/21, patient remains in the ICU, intubated and mechanically ventilated. She is presently on pressure support mode of mechanical ventilation, this was basically tolerated overnight. She is on pressure support of 10 and CPAP, and I cut it down to 8 and CPAP, continued to do fairly well. She had decent tidal volumes and normal respiratory rate. Hence I proceeded to extubating the patient while up at bedside. ABG today showed a pO2 of 97 pCO2 35 pH of 7.46. Prior to extubating the patient, patient was noted to be arousable, followed simple instructions like squeezing hands, w iggling toes, closing eyes, and she seems to be appropriate. But she seems to be generally weak. Again I recommended extubating the patient to BiPAP 01/12. Patient was on vital AF via PEG tube and she will remain on enteral feeding. She will remain on antibiotics that she is presently on, and again I will extubated the patient to BiPAP. There is again is 10.9 hemoglobin is 9 ABG as noted earlier. Basic metabolic profile is normal potassium is 3.0, being corrected. Chest x-ray is showing improvement in her right lower lobe infiltrate and atelectasis Objective - Vital Signs Vital signs: Vital Signs Temp 99.5 F 09/04/21 11:00 Pulse 88 09/04/21 11:41 Resp 22 09/04/21 11:00 BP 108/90 09/04/21 11:00 Pulse Ox 100 09/04/21 11:00 FiO2 30 09/04/21 09:55 Intake & Output 09/03/21 09/04/21 09/04/21 18:59 06:59 18:59 Intake Total 827.974 836.392 170 Output Total 2282 795 163 Balance -1454.026 41.392 7 Weight 69.3 kg 72.4 kg Intake: IV 480 380 150 Piperacillin-Tazobactam 3 100 50 .375 gm In Sodium Chloride 0.9% 100 ml @ 25 mls/hr IVPB Q8H [facility] Rx#: [id number] Sodium Chloride 0.9% 1, 480 280 100 000 ml @ 20 mls/hr IV . Q24H [facility] Rx#:[id number] Intake, IV Titration 187.974 286.392 Amount Amiodarone 450 mg In 161.392 Dextrose 5% in Water 250 ml @ 0.5 MG/MIN 16.667 mls/hr IV .Q15H [facility] Rx#: [id number] Diltiazem 125 mg In 83.917 125 Sodium Chloride 0.9% 100 ml @ 5 MG/HR 5 mls/hr IV .Q24H [facility] Rx#:[id number] Norepinephrine 32 mg In 1.477 Sodium Chloride 0.9% 218 ml @ 0.05 MCG/KG/MIN 1. 512 mls/hr IV .Q24H [facility] Rx#:[id number] propofoL 1,000 mg In 102.580 Empty Bag 1 bag @ 5 MCG/ KG/MIN 1.935 mls/hr IV . Q24H [facility] Rx#:[id number] Oral 10 Tube Feeding 90 170 20 Other 60 Output: Gastric Drainage 110 Urine 2172 795 163 Other: Voiding Method Indwelling Catheter Indwelling Catheter Indwelling Catheter ABP, PAP, CO, CI - Last Documented Arterial Blood Pressure 121/60 - Exam Physical Exam: Revealed a 75-year-old female intubated, mechanically ventilated, awake, follows simple instructions but noted to be generally weak Head: Atraumatic, normocephalic. HEENT: [No neck masses.] [No thyromegaly.] [No JVD.] Patient looks pale, PERRLA, EOMI, nonicteric. Chest: [Symmetrical chest expansion diminished breath sounds at the bases no rhonchi and no wheezes] Cardiac Exam: Distant S1 and S2, no S3 gallop, 2/6 systolic murmur thought the precordium. Abdomen: [Soft, nontender, no megaly, no rebound, no guarding, normal bowel sounds.] PEG tube is noted, and seems intact. Extremities: No clubbing edema or cyanosis, no distal pulses could be palpable. Neurological Exam: Awake, weak, follows simple instructions like wiggling toes squeezing hands and closing eyes Psychiatric: Cannot fully assess, patient seems to be appropriate and follows instructions Skin: No rashes - Labs CBC & Chem 7: 09/04/21 05:30 09/04/21 05:30 Labs: Abnormal Lab Results - Last 24 Hours (Table) 09/03/21 09/03/21 09/03/21 Range/Units 11:56 17:32 17:33 WBC (3.8-10.6) k/uL RBC (3.80-5.40) m/uL Hgb (11.4-16.0) gm/dL Hct (34.0-46.0) % MCV (80.0-100.0) fL RDW (11.5-15.5) % Plt Count (150-450) k/uL Neutrophils # (1.3-7.7) k/uL Lymphocytes # (1.0-4.8) k/uL ABG pH (7.35-7.45) ABG pCO2 34 L (35-45) mmHg ABG Total CO2 25 H (19-24) mmol/L ABG O2 Saturation 98.1 H (94-97) % Potassium (3.5-5.1) mmol/L Chloride (98-107) mmol/L BUN (7-17) mg/dL Glucose (74-99) mg/dL POC Glucose (mg/dL) 127 H 115 H (70-110) mg/dL Calcium (8.4-10.2) mg/dL AST (14-36) U/L ALT (4-34) U/L Total Protein (6.3-8.2) g/dL Albumin (3.5-5.0) g/dL 09/04/21 09/04/21 09/04/21 Range/Units 00:18 05:28 05:30 WBC 10.9 H (3.8-10.6) k/uL RBC 2.70 L (3.80-5.40) m/uL Hgb 9.0 L D (11.4-16.0) gm/dL Hct 28.3 L (34.0-46.0) % MCV 104.5 H (80.0-100.0) fL RDW 18.2 H (11.5-15.5) % Plt Count 49 L (150-450) k/uL Neutrophils # 10.2 H (1.3-7.7) k/uL Lymphocytes # 0.3 L (1.0-4.8) k/uL ABG pH (7.35-7.45) ABG pCO2 (35-45) mmHg ABG Total CO2 (19-24) mmol/L ABG O2 Saturation (94-97) % Potassium (3.5-5.1) mmol/L Chloride (98-107) mmol/L BUN (7-17) mg/dL Glucose (74-99) mg/dL POC Glucose (mg/dL) 114 H 114 H (70-110) mg/dL Calcium (8.4-10.2) mg/dL AST (14-36) U/L ALT (4-34) U/L Total Protein (6.3-8.2) g/dL Albumin (3.5-5.0) g/dL 09/04/21 09/04/21 Range/Units 05:30 05:56 WBC (3.8-10.6) k/uL RBC (3.80-5.40) m/uL Hgb (11.4-16.0) gm/dL Hct (34.0-46.0) % MCV (80.0-100.0) fL RDW (11.5-15.5) % Plt Count (150-450) k/uL Neutrophils # (1.3-7.7) k/uL Lymphocytes # (1.0-4.8) k/uL ABG pH 7.46 H (7.35-7.45) ABG pCO2 (35-45) mmHg ABG Total CO2 26 H (19-24) mmol/L ABG O2 Saturation 98.6 H (94-97) % Potassium 3.0 L (3.5-5.1) mmol/L Chloride 113 H (98-107) mmol/L BUN 28 H (7-17) mg/dL Glucose 103 H (74-99) mg/dL POC Glucose (mg/dL) (70-110) mg/dL Calcium 7.6 L (8.4-10.2) mg/dL AST 55 H (14-36) U/L ALT 136 H (4-34) U/L Total Protein 3.5 L (6.3-8.2) g/dL Albumin 2.0 L (3.5-5.0) g/dL Microbiology - Last 24 Hours (Table) 09/02/21 20:49 Gram Stain - Preliminary Sputum Sputum Culture - Preliminary 09/01/21 19:42 Blood Culture - Preliminary Blood No Growth after 48 hours 09/02/21 12:03 Blood Culture - Preliminary Blood No Growth after 24 hours Assessment and Plan Assessment: Impression: Acute hypoxic respiratory failure secondary to sepsis, activity anemia, and suspect septic shock. Acute blood loss anemia secondary to bleeding at the PEG tube site. Failure to thrive. Urinary tract infection History of dementia Electrolytes imbalance Chronic atrial fibrillation Acute kidney injury Elevated troponin Normal pressure hydrocephalus History of hypertension Recommendation: Will give the patient a trial of lower pressure support and CPAP, and if tolerated with extubate. Continue nutritional support. Patient is on enteral feeding via PEG tube. Continue antibiotics as per ID on the case. Continue anticoagulation therapy and monitor for any signs of bleeding Discussed her condition with sister at bedside yesterday, CODE STATUS remains full. We'll continue to follow while in the ICU. Long-term prognosis remains relatively poor and guarded Critical care time is over 30 minutes Time with Patient: Greater than 30
--- NOTE | 2021-09-04 12:56 | P.PN ---
Subjective Progress Note Date: 09/04/21 CHIEF COMPLAINT: Protein malnutrition HISTORY OF PRESENT ILLNESS: The patient is a 75-year-old female status post gastrostomy tube placement 09/01/2021 for moderate to severe protein malnutrition. Patient is in the intensive care unit. She is on BiPAP. Hemoglobin is down from 11.3-9.0. No signs of bleeding. ROS: No fevers over 100.0 or chills. Has chronic atrial fibrillation. Mechanically ventilated. Has dementia PHYSICAL EXAM: VITAL SIGNS: Reviewed CONSTITUTIONAL: Well developed and in no acute distress. EYES: Conjuctivae without sclera icterus. Extraocular movements grossly intact. HEAD, EARS, NOSE, THROAT: Moist buccal mucosa. Head is atraumatic, normocephalic. Hears conversational speech. No nasal drainage. RESPIRATORY: Non-labored respirations and equal bilateral excursions. Mechanically ventilated and intubated CARDIOVASCULAR: Palpable 2+ radial pulses. ABDOMEN: Gastrostomy site clean and dry. MUSCULOSKELETAL: No gross deformity of the lower extremities noted. No clubbing. No cyanosis. SKIN: Good skin turgor. Well perfused. NEUROLOGIC: No focal or lateralizing signs. PSYCH: Sedated CLINICAL LABS: Reviewed. Hemoglobin of 5.8-11.3, now 9.0. WBC count 22.6-14.1, now 10.9. ASSESSMENT: 1. Moderate to severe protein calorie malnutrition 2. Hypoxic respiratory failure 3. Atrial fibrillation on chronic anticoagulation 4. Dementia PLAN: 1. She has no signs of bleeding. 2. Monitor hemoglobin. 3. Continue tube feeds. Objective - Vital Signs Vital signs: Vital Signs Temp 99.1 F 09/04/21 12:00 Pulse 89 09/04/21 12:02 Resp 20 09/04/21 12:00 BP 108/90 09/04/21 12:00 Pulse Ox 99 09/04/21 12:00 FiO2 30 09/04/21 09:55 Intake & Output 09/03/21 09/04/21 09/04/21 18:59 06:59 18:59 Intake Total 827.974 836.392 215 Output Total 2282 795 203 Balance -1454.026 41.392 12 Weight 69.3 kg 72.4 kg 72.4 kg Intake: IV 480 380 195 Piperacillin-Tazobactam 3 100 75 .375 gm In Sodium Chloride 0.9% 100 ml @ 25 mls/hr IVPB Q8H [facility] Rx#: [id number] Sodium Chloride 0.9% 1, 480 280 120 000 ml @ 20 mls/hr IV . Q24H [facility] Rx#:[id number] Intake, IV Titration 187.974 286.392 Amount Amiodarone 450 mg In 161.392 Dextrose 5% in Water 250 ml @ 0.5 MG/MIN 16.667 mls/hr IV .Q15H [facility] Rx#: [id number] Diltiazem 125 mg In 83.917 125 Sodium Chloride 0.9% 100 ml @ 5 MG/HR 5 mls/hr IV .Q24H [facility] Rx#:[id number] Norepinephrine 32 mg In 1.477 Sodium Chloride 0.9% 218 ml @ 0.05 MCG/KG/MIN 1. 512 mls/hr IV .Q24H [facility] Rx#:[id number] propofoL 1,000 mg In 102.580 Empty Bag 1 bag @ 5 MCG/ KG/MIN 1.935 mls/hr IV . Q24H [facility] Rx#:[id number] Oral 10 Tube Feeding 90 170 20 Other 60 Output: Gastric Drainage 110 Urine 2172 795 203 Other: Voiding Method Indwelling Catheter Indwelling Catheter Indwelling Catheter ABP, PAP, CO, CI - Last Documented Arterial Blood Pressure 130/58 - Labs CBC & Chem 7: 09/04/21 05:30 09/04/21 13:34 Labs: Abnormal Lab Results - Last 24 Hours (Table) 09/03/21 09/03/21 09/04/21 Range/Units 17:32 17:33 00:18 WBC (3.8-10.6) k/uL RBC (3.80-5.40) m/uL Hgb (11.4-16.0) gm/dL Hct (34.0-46.0) % MCV (80.0-100.0) fL RDW (11.5-15.5) % Plt Count (150-450) k/uL Neutrophils # (1.3-7.7) k/uL Lymphocytes # (1.0-4.8) k/uL ABG pH (7.35-7.45) ABG pCO2 34 L (35-45) mmHg ABG Total CO2 25 H (19-24) mmol/L ABG O2 Saturation 98.1 H (94-97) % Potassium (3.5-5.1) mmol/L Chloride (98-107) mmol/L BUN (7-17) mg/dL Glucose (74-99) mg/dL POC Glucose (mg/dL) 115 H 114 H (70-110) mg/dL Calcium (8.4-10.2) mg/dL AST (14-36) U/L ALT (4-34) U/L Total Protein (6.3-8.2) g/dL Albumin (3.5-5.0) g/dL 09/04/21 09/04/21 09/04/21 Range/Units 05:28 05:30 05:30 WBC 10.9 H (3.8-10.6) k/uL RBC 2.70 L (3.80-5.40) m/uL Hgb 9.0 L D (11.4-16.0) gm/dL Hct 28.3 L (34.0-46.0) % MCV 104.5 H (80.0-100.0) fL RDW 18.2 H (11.5-15.5) % Plt Count 49 L (150-450) k/uL Neutrophils # 10.2 H (1.3-7.7) k/uL Lymphocytes # 0.3 L (1.0-4.8) k/uL ABG pH (7.35-7.45) ABG pCO2 (35-45) mmHg ABG Total CO2 (19-24) mmol/L ABG O2 Saturation (94-97) % Potassium 3.0 L (3.5-5.1) mmol/L Chloride 113 H (98-107) mmol/L BUN 28 H (7-17) mg/dL Glucose 103 H (74-99) mg/dL POC Glucose (mg/dL) 114 H (70-110) mg/dL Calcium 7.6 L (8.4-10.2) mg/dL AST 55 H (14-36) U/L ALT 136 H (4-34) U/L Total Protein 3.5 L (6.3-8.2) g/dL Albumin 2.0 L (3.5-5.0) g/dL 09/04/21 Range/Units 05:56 WBC (3.8-10.6) k/uL RBC (3.80-5.40) m/uL Hgb (11.4-16.0) gm/dL Hct (34.0-46.0) % MCV (80.0-100.0) fL RDW (11.5-15.5) % Plt Count (150-450) k/uL Neutrophils # (1.3-7.7) k/uL Lymphocytes # (1.0-4.8) k/uL ABG pH 7.46 H (7.35-7.45) ABG pCO2 (35-45) mmHg ABG Total CO2 26 H (19-24) mmol/L ABG O2 Saturation 98.6 H (94-97) % Potassium (3.5-5.1) mmol/L Chloride (98-107) mmol/L BUN (7-17) mg/dL Glucose (74-99) mg/dL POC Glucose (mg/dL) (70-110) mg/dL Calcium (8.4-10.2) mg/dL AST (14-36) U/L ALT (4-34) U/L Total Protein (6.3-8.2) g/dL Albumin (3.5-5.0) g/dL Microbiology - Last 24 Hours (Table) 09/02/21 20:49 Gram Stain - Preliminary Sputum Sputum Culture - Preliminary 09/01/21 19:42 Blood Culture - Preliminary Blood No Growth after 48 hours 09/02/21 12:03 Blood Culture - Preliminary Blood No Growth after 24 hours
[2021-09-04] MEDS: NOREPINEPHRINE 32 MG in SODIUM CHLORIDE 0.9% 218 ML IV SCH (13:01)
[2021-09-04] MEDS ORDERED: POTASSIUM BICARBONATE/CIT AC 20 MEQ TABLET.EFF NG-TUBE SCH (16:00)
[2021-09-04 18:02] LABS: Glucose,Whole Blood 118 mg/dL (70-110)
--- NOTE | 2021-09-04 20:05 | P.PN ---
Progress Note - Text Progress Note Date: 09/04/21 Interval history: I'm rounding for Dr. Lalo Nguyen September 04: ICU: Extubated earlier today. Currently on BiPAP. Lethargic. Sitting of 12/6/30%. PEG tube feeding. Following commands. Edema present. Sinus rhythm with PACs. Active Medications Acetaminophen (Acetaminophen Tab 325 Mg Tab) 650 mg PO Q6HR PRN PRN Reason: Mild Pain or Fever > 100.5 Last Admin: 09/01/21 16:35 Dose: 650 mg Albuterol/Ipratropium (Ipratropium-Albuterol 3 Ml Neb) 3 ml INHALATION RT-Q4H [facility] Last Admin: 09/04/21 15:56 Dose: 3 ml Albuterol/Ipratropium (Ipratropium-Albuterol 3 Ml Neb) 3 ml INHALATION RT-Q2H PRN PRN Reason: Shortness Of Breath Or Wheezing Amiodarone HCl (Amiodarone 200 Mg Tab) 400 mg PO BID [facility] Last Admin: 09/04/21 09:54 Dose: 400 mg Apixaban (Apixaban 5 Mg Tab) 5 mg PO BID [facility]; Protocol Last Admin: 09/04/21 07:44 Dose: 5 mg Budesonide/Formoterol Fumarate (Symbicort 160-4.5 Mcg Inhaler) 2 puff INHALATION RT-BID [facility] Last Admin: 09/04/21 07:34 Dose: 2 puff Chlorhexidine Gluconate (Chlorhexidine Gluconate 15 Ml Cup) 15 ml MUCOUS MEM BID [facility] Last Admin: 09/04/21 07:44 Dose: 15 ml Fluconazole (Fluconazole 100 Mg Tab) 100 mg PO DAILY [facility]; Protocol Last Admin: 09/04/21 07:44 Dose: 100 mg Norepinephrine Bitartrate 32 (mg/ Sodium Chloride) 250 mls @ 1.512 mls/hr IV .Q24H [facility]; Protocol Last Admin: 09/04/21 13:01 Dose: Not Given Sodium Chloride (Saline 0.9%) 1,000 mls @ 20 mls/hr IV .Q24H [facility] Last Admin: 09/04/21 05:32 Dose: 20 mls/hr Daptomycin 390 mg/ Sodium (Chloride) 50 mls @ 100 mls/hr IVPB Q24H [facility]; Protocol Last Admin: 09/03/21 23:07 Dose: 100 mls/hr Piperacillin Sod/Tazobactam (Sod 3.375 gm/ Sodium Chloride) 100 mls @ 25 mls/hr IVPB Q8H [facility]; Protocol Last Admin: 09/04/21 13:35 Dose: 25 mls/hr Insulin Aspart (Insulin Aspart (Novolog) 100 Unit/Ml Vial) 0 unit SQ Q6HR [facility]; Protocol Last Admin: 09/04/21 18:27 Dose: Not Given Ketotifen Fumarate (Ketotifen 0.025% Ophth Drops 5 Ml Btl) 2 drops BOTH EYES BID [facility] Last Admin: 09/04/21 07:44 Dose: 2 drops Miscellaneous Information (Potassium Replacement Protocol 1 Each Misc) 1 each MISCELLANE DAILY PRN; Protocol PRN Reason: Per Protocol Montelukast Sodium (Montelukast 10 Mg Tab) 10 mg PO HS [facility] Last Admin: 09/02/21 20:12 Dose: 10 mg Naloxone HCl (Naloxone 0.4 Mg/Ml 1 Ml Vial) 0.2 mg IV Q2M PRN PRN Reason: Opioid Reversal Pantoprazole Sodium (Pantoprazole 40 Mg/10 Ml Vial) 40 mg IVP DAILY [facility] Last Admin: 09/04/21 07:44 Dose: 40 mg On examination: VITAL SIGNS: 99.5, 104, 25, 108/90, 98% on BiPAP GENERAL APPEARANCE: Laying in bed, lethargic but arousable EYES: Pupils equal. Conjunctiva normal. NECK: JVD unable to assess. Mass not palpable. RESPIRATORY: Respiratory effort increased. Lungs decreased breath sounds. CARDIOVASCULAR: First and second sounds normal. No edema. ABDOMEN: Soft. Liver and spleen not palpable. No tenderness. No mass palpable. Neurological: Cranial nerves grossly intact. Following simple commands. INVESTIGATIONS, reviewed in the clinical context: White count 10.9 hemoglobin 9 platelets 49 sodium 140 potassium 3 BUN 28 creatinine 0.61 AST 55 ALT 136 Assessment and plan: -Paroxysmal atrial fibrillation with rapid ventricular rate, now rate controlled Eliquis 5 mg twice a day. Cordarone. -Sepsis -Septic shock Patient received levo fed -Acute kidney injury secondary to hemodynamic ATN.: Improved Creatinine had peaked at 1.31. -Moderate persistent Asthma, exacerbation Symbicort 160/4.52 puffs twice a day DuoNeb -Mild cognitive impairment from early dementia -Hyperlipidemia -Acute blood loss anemia secondary to bleeding at PEG tube site -Essential hypertension Currently off antihypertensive -Nephrolithiasis, asymptomatic -Primary osteoarthritis Pain control as needed -Chronic gait dysfunction uses a walker Fall precautions -Full code Extubated earlier today. PEG tube feeding. On BiPAP.
[2021-09-04] MEDS: MONTELUKAST 10 MG TAB PO SCH (20:49)
--- NOTE | 2021-09-04 21:44 | P.PN ---
Subjective Progress Note Date: 09/04/21 Principal diagnosis: Leukocytosis and bacteremia Patient is a 75-year-old -[place] female initially presented to hospital on 08/11/2021 for increasing weakness slurred speech with concern for possible CVA patient has been on steroids and Zosyn per pulmonary patient was noticed to have elevated white count that prompted this infectious disease consultation. Patient UA was negative. CT Abdominal pelvis didn't mention any abnormality echocardiogram negative for any vegetation On today's evaluation that is 09/04/2021, the patient is afebrile, patient has been extubated and is currently on a BiPAP patient remains to be lethargic and is unable to point in history of vomiting or diarrhea has been reported by the nursing staff Objective - Vital Signs Vital signs: Vital Signs Temp 99.1 F 09/04/21 12:00 Pulse 89 09/04/21 12:02 Resp 20 09/04/21 12:00 BP 108/90 09/04/21 12:00 Pulse Ox 99 09/04/21 12:00 FiO2 30 09/04/21 09:55 Intake & Output 09/03/21 09/04/21 09/04/21 18:59 06:59 18:59 Intake Total 827.974 836.392 215 Output Total 2282 795 203 Balance -1454.026 41.392 12 Weight 69.3 kg 72.4 kg 72.4 kg Intake: IV 480 380 195 Piperacillin-Tazobactam 3 100 75 .375 gm In Sodium Chloride 0.9% 100 ml @ 25 mls/hr IVPB Q8H [facility] Rx#: [id number] Sodium Chloride 0.9% 1, 480 280 120 000 ml @ 20 mls/hr IV . Q24H [facility] Rx#:[id number] Intake, IV Titration 187.974 286.392 Amount Amiodarone 450 mg In 161.392 Dextrose 5% in Water 250 ml @ 0.5 MG/MIN 16.667 mls/hr IV .Q15H [facility] Rx#: [id number] Diltiazem 125 mg In 83.917 125 Sodium Chloride 0.9% 100 ml @ 5 MG/HR 5 mls/hr IV .Q24H [facility] Rx#:[id number] Norepinephrine 32 mg In 1.477 Sodium Chloride 0.9% 218 ml @ 0.05 MCG/KG/MIN 1. 512 mls/hr IV .Q24H [facility] Rx#:[id number] propofoL 1,000 mg In 102.580 Empty Bag 1 bag @ 5 MCG/ KG/MIN 1.935 mls/hr IV . Q24H [facility] Rx#:[id number] Oral 10 Tube Feeding 90 170 20 Other 60 Output: Gastric Drainage 110 Urine 2172 795 203 Other: Voiding Method Indwelling Catheter Indwelling Catheter Indwelling Catheter ABP, PAP, CO, CI - Last Documented Arterial Blood Pressure 130/58 - Exam GENERAL DESCRIPTION: Elderly female lying in bed on BiPAP LUNGS: Unlabored breathing. Decreased breath sound the base HEART: S1, S2, regular rate and rhythm. ABDOMEN: Soft, no tenderness , guarding or rigidity, no organomegaly EXTREMITIES: No edema of feet. - Labs CBC & Chem 7: 09/04/21 05:30 09/04/21 13:34 Labs: Abnormal Lab Results - Last 24 Hours (Table) 09/03/21 09/03/21 09/04/21 Range/Units 17:32 17:33 00:18 WBC (3.8-10.6) k/uL RBC (3.80-5.40) m/uL Hgb (11.4-16.0) gm/dL Hct (34.0-46.0) % MCV (80.0-100.0) fL RDW (11.5-15.5) % Plt Count (150-450) k/uL Neutrophils # (1.3-7.7) k/uL Lymphocytes # (1.0-4.8) k/uL ABG pH (7.35-7.45) ABG pCO2 34 L (35-45) mmHg ABG Total CO2 25 H (19-24) mmol/L ABG O2 Saturation 98.1 H (94-97) % Potassium (3.5-5.1) mmol/L Chloride (98-107) mmol/L BUN (7-17) mg/dL Glucose (74-99) mg/dL POC Glucose (mg/dL) 115 H 114 H (70-110) mg/dL Calcium (8.4-10.2) mg/dL AST (14-36) U/L ALT (4-34) U/L Total Protein (6.3-8.2) g/dL Albumin (3.5-5.0) g/dL 09/04/21 09/04/21 09/04/21 Range/Units 05:28 05:30 05:30 WBC 10.9 H (3.8-10.6) k/uL RBC 2.70 L (3.80-5.40) m/uL Hgb 9.0 L D (11.4-16.0) gm/dL Hct 28.3 L (34.0-46.0) % MCV 104.5 H (80.0-100.0) fL RDW 18.2 H (11.5-15.5) % Plt Count 49 L (150-450) k/uL Neutrophils # 10.2 H (1.3-7.7) k/uL Lymphocytes # 0.3 L (1.0-4.8) k/uL ABG pH (7.35-7.45) ABG pCO2 (35-45) mmHg ABG Total CO2 (19-24) mmol/L ABG O2 Saturation (94-97) % Potassium 3.0 L (3.5-5.1) mmol/L Chloride 113 H (98-107) mmol/L BUN 28 H (7-17) mg/dL Glucose 103 H (74-99) mg/dL POC Glucose (mg/dL) 114 H (70-110) mg/dL Calcium 7.6 L (8.4-10.2) mg/dL AST 55 H (14-36) U/L ALT 136 H (4-34) U/L Total Protein 3.5 L (6.3-8.2) g/dL Albumin 2.0 L (3.5-5.0) g/dL 09/04/21 Range/Units 05:56 WBC (3.8-10.6) k/uL RBC (3.80-5.40) m/uL Hgb (11.4-16.0) gm/dL Hct (34.0-46.0) % MCV (80.0-100.0) fL RDW (11.5-15.5) % Plt Count (150-450) k/uL Neutrophils # (1.3-7.7) k/uL Lymphocytes # (1.0-4.8) k/uL ABG pH 7.46 H (7.35-7.45) ABG pCO2 (35-45) mmHg ABG Total CO2 26 H (19-24) mmol/L ABG O2 Saturation 98.6 H (94-97) % Potassium (3.5-5.1) mmol/L Chloride (98-107) mmol/L BUN (7-17) mg/dL Glucose (74-99) mg/dL POC Glucose (mg/dL) (70-110) mg/dL Calcium (8.4-10.2) mg/dL AST (14-36) U/L ALT (4-34) U/L Total Protein (6.3-8.2) g/dL Albumin (3.5-5.0) g/dL Microbiology - Last 24 Hours (Table) 09/02/21 20:49 Gram Stain - Preliminary Sputum Sputum Culture - Preliminary 09/01/21 19:42 Blood Culture - Preliminary Blood No Growth after 48 hours 09/02/21 12:03 Blood Culture - Preliminary Blood No Growth after 24 hours Assessment and Plan (1) Leukocytosis Current Visit: Yes Status: Acute Code(s): D72.829 - ELEVATED WHITE BLOOD CELL COUNT, UNSPECIFIED SNOMED Code(s): 668153257 (2) Bacteremia Current Visit: Yes Status: Acute Code(s): R78.81 - BACTEREMIA SNOMED Code(s): 0913522 Plan: 1patient with Enterococcus bacteremia which usually of gut or urinary source however the UA on 08/26/2020 was negative, blood cultures repeated so far negative, CT abdominal pelvis did not show any acute abnormality, echocardiogram did not show any vegetation possible transient bacteremia from either GI or urinary source, patient is covered with a daptomycin 2- patient subsequently did have worsening of her clinical condition and drop in hemoglobin questionably from the PEG tube site, patient Eliquis has been put on hold, blood and sputum culture has been obtained, blood cultures are negative so far sputum is currently growing gram-negative with ID sensitivities pending patient is covered with the Zosyn to continue Time with Patient: Less than 30
[2021-09-04] MEDS: SODIUM CHLORIDE 0.9% IVPB SCH (23:06)
[2021-09-04] MEDS: DAPTOMYCIN IVPB SCH (23:06)
[2021-09-05 00:10] LABS: Glucose,Whole Blood 111 mg/dL (70-110)
[2021-09-05] MEDS: INSULIN ASPART (NovoLOG) 100 UNIT/ML VIAL SQ SCH ×5 (00:54→23:15)
[2021-09-05 01:31] LABS: Magnesium 1.9 mg/dL (1.6-2.3); Potassium 3.5 mmol/L (3.5-5.1)
[2021-09-05] MEDS: MAGNESIUM SULFATE-D5W PMX 1 GM in DEXTROSE/WATER 1 100ML.BAG IVPB SCH ×2 (02:00→03:36)
[2021-09-05] MEDS: POTASSIUM BICARBONATE/CIT AC 20 MEQ TABLET.EFF NG-TUBE SCH ×2 (02:00→03:37)
[2021-09-05] MEDS: IPRATROPIUM-ALBUTEROL 3 ML NEB INHALATION SCH ×5 (04:19→20:16)
[2021-09-05] MEDS: PIPERACILLIN-TAZOBACTAM 3.375 GM in SODIUM CHLORIDE 0.9% 100 ML IVPB SCH ×3 (05:38→21:04)
[2021-09-05 05:51] LABS: Glucose,Whole Blood 134 mg/dL (70-110)
[2021-09-05 06:21] LABS: Anisocytosis Slight; Basophils % (A) 0 %; Eosinophils % (A) 0 %; HCT 29.5 % (34.0-46.0); HGB 9.4 gm/dL (11.4-16.0); Hypochromasia Moderate; Lymphocytes # (A) 0.3 k/uL (1.0-4.8); Lymphocytes % (A) 4 %; MCH 34.6 pg (25.0-35.0); MCHC 31.8 g/dL (31.0-37.0); MCV 108.5 fL (80.0-100.0); Macrocytosis Marked; Mean Platelet Volume 11.3; Monocytes # (A) 0.1 k/uL (0-1.0); Monocytes % (A) 2 %; Neutrophils # (A) 7.7 k/uL (1.3-7.7); Neutrophils % (A) 94 %; Poikilocytosis Slight; RBC 2.72 m/uL (3.80-5.40); RDW 19.1 % (11.5-15.5); WBC 8.2 k/uL (3.8-10.6)
[2021-09-05 06:29] LABS: Platelet Count 45 k/uL (150-450)
[2021-09-05 06:40] LABS: ALT 119 U/L (4-34); AST 55 U/L (14-36); African American GFR (CKD) >90 (>60 ml/min/1.73 sqM); Alkaline Phosphatase 82 U/L (38-126); Anion Gap -1 mmol/L; Blood Urea Nitrogen 20 mg/dL (7-17); Calcium 7.7 mg/dL (8.4-10.2); Carbon Dioxide 26 mmol/L (22-30); Chloride 115 mmol/L (98-107); Glucose 125 mg/dL (74-99); Non-African American GFR(CKD) >90 (>60 ml/min/1.73 sqM); Potassium 4.3 mmol/L (3.5-5.1); Sodium 140 mmol/L (137-145); Total Protein 3.6 g/dL (6.3-8.2)
[2021-09-05] MEDS: SYMBICORT 160-4.5 MCG INHALER INHALATION SCH ×2 (07:18→20:16)
[2021-09-05] MEDS ORDERED: FUROSEMIDE 10 MG/ML 2 ML VIAL IV STA (09:14)
[2021-09-05] MEDS: PANTOPRAZOLE 40 MG/10 ML VIAL IVP SCH (10:03)
[2021-09-05] MEDS: AMIODARONE 200 MG TAB PO SCH ×2 (10:03→20:28)
[2021-09-05] MEDS: FLUCONAZOLE 100 MG TAB PO SCH (10:04)
[2021-09-05] MEDS: APIXABAN 5 MG TAB PO SCH ×2 (10:05→20:28)
[2021-09-05] MEDS: CHLORHEXIDINE GLUCONATE 15 ML CUP MUCOUS MEM SCH ×2 (10:05→20:37)
[2021-09-05] MEDS: KETOTIFEN 0.025% OPHTH DROPS 5 ML BTL BOTH EYES SCH ×2 (10:05→20:37)
--- NOTE | 2021-09-05 10:48 | P.PN ---
Subjective This is a pleasant 75-year-old with past medical history significant for advanced dementia, postural hypotension, chronic kidney disease, hypertension, paroxysmal atrial fibrillation on Eliquis, Bronchitis. She used to follow in the office with Dr. Smart. We are being consulted for elevated troponin. Patient is a poor historian unable to state why she came to the hospital. She has no complaints at bedside. Denies any pain, chest pain, shortness of breath. DIAGNOSTICS: Most recent echo 06/2021 revealed EF 5560%, moderately increase posterior wall thickness Patient was admitted to the hospital in November 2020 with complaints of chest pain and shortness of breath. She was evaluated by nuclear Stress test and echocardiogram. Nuclear stress test showed mild ischemia. She was evaluated Dr. Cotton, nuclear stress test was reviewed by cardiology and medical therapy was advised. 08/26/2021- Cardiology was asked to evaluate patient secondary to atrial fibrillation with RVR. Apparently yesterday the patient went into A. fib with R VR. She was started on IV Cardizem which was then discontinued 09/01/2021 Patient seen and examined at bedside, no acute distress. Confused. Tearful on exam. She denies any chest pain, palpitations or shortness of breath. Vital signs are stable. Patient is currently in sinus mechanism heart rate 70s-80s. 09/05 Patient had been transferred to ICU and intubated. She had issues with A. fib and has been on amiodarone as well as Cardizem drip. She did convert to sinus rhythm and therefore amiodarone was changed to oral amiodarone and a Cardizem drip was stopped. Her blood pressures have been borderline however has been off of vasopressors. She had respiratory failure and apnea however was extubated and currently on 2 L nasal cannula. She denies any chest pain or pressure. States she has a mild appetite however has had issues with failure to thrive and therefore has been receiving tube feeding currently at 33 mL/h. Does have mild lower extremity edema and mild decreased breath sounds at bases. Albumin noted to be extremely low 2.0. She did go back into A. fib overnight with mild tachycardia heart rates in the 100s to 120s. PHYSICAL EXAM: VITAL SIGNS: Reviewed. GENERAL: Well-developed in no acute distress, chronically ill appearing, poor recall NECK: Supple. No JVD or thyromegaly LUNGS: Respirations even and unlabored. Decreased breath sounds at bases HEART: Irregular rate and rhythm. S1 and S2 heard. EXTREMITIES: Normal range of motion. No clubbing or cyanosis. Peripheral pulses intact. 1+ lower extremity edema ASSESSMENT: Paroxysmal A. fib currently A. fib with mild RVR Sepsis with enterococcus bacteremia Acute kidney injury, improved Acute on chronic diastolic heart failure, exacerbated by severe protein calorie malnutrition Urinary tract infection Leukocytosis Elevated troponin, likely related to acute kidney injury, sepsis Dementia Altered mental status History asthma/COPD History of Hypertension History of postural hypotension Severe protein calorie malnutrition PLAN: Lengthy hospitalization with failure to thrive. Patient continues to have mild A. fib with RVR. Continue with amiodarone oral dosing and Cardizem drip was stopped yesterday however we will transition to oral Cardizem through the PEG tube. Patient has volume overloaded which is exacerbated by severe protein calorie malnutrition albumin 2.0. Continue with Lasix as needed and continue with tube feeding. Continue supportive care for bacteremia and sepsis. Further recommendations to follow. Prognosis guarded. Objective - Vital Signs Vital signs: Vital Signs Temp 99.8 F H 09/05/21 04:00 Pulse 110 H 09/05/21 07:30 Resp 21 09/05/21 05:30 BP 108/90 09/05/21 05:30 Pulse Ox 99 09/05/21 06:05 FiO2 30 09/05/21 04:18 Intake & Output 09/04/21 09/05/21 09/05/21 18:59 06:59 18:59 Intake Total 825 670 Output Total 399 400 Balance 426 270 Weight 72.4 kg 70.3 kg Intake: IV 475 640 Magnesium Sulfate-D5w Pmx 200 1 gm In Dextrose/Water 1 100ml.bag @ 100 mls/hr IVPB Q1H [facility] Rx#: [id number] Piperacillin-Tazobactam 3 175 200 .375 gm In Sodium Chloride 0.9% 100 ml @ 25 mls/hr IVPB Q8H [facility] Rx#: [id number] Sodium Chloride 0.9% 1, 300 240 000 ml @ 20 mls/hr IV . Q24H [facility] Rx#:[id number] Tube Feeding 320 30 Other 30 Output: Urine 399 400 Other: Voiding Method Indwelling Catheter Indwelling Catheter ABP, PAP, CO, CI - Last Documented Arterial Blood Pressure 105/59 - Labs CBC & Chem 7: 09/05/21 05:48 09/05/21 05:48 Labs: Abnormal Lab Results - Last 24 Hours (Table) 09/04/21 09/05/21 09/05/21 Range/Units 18:01 00:09 05:48 RBC 2.72 L (3.80-5.40) m/uL Hgb 9.4 L (11.4-16.0) gm/dL Hct 29.5 L (34.0-46.0) % MCV 108.5 H (80.0-100.0) fL RDW 19.1 H (11.5-15.5) % Plt Count 45 L (150-450) k/uL Lymphocytes # 0.3 L (1.0-4.8) k/uL Macrocytosis Marked A Chloride (98-107) mmol/L BUN (7-17) mg/dL Creatinine (0.52-1.04) mg/dL Glucose (74-99) mg/dL POC Glucose (mg/dL) 118 H 111 H (70-110) mg/dL Calcium (8.4-10.2) mg/dL Magnesium (1.6-2.3) mg/dL AST (14-36) U/L ALT (4-34) U/L Total Protein (6.3-8.2) g/dL Albumin (3.5-5.0) g/dL 09/05/21 09/05/21 09/05/21 Range/Units 05:48 05:48 05:50 RBC (3.80-5.40) m/uL Hgb (11.4-16.0) gm/dL Hct (34.0-46.0) % MCV (80.0-100.0) fL RDW (11.5-15.5) % Plt Count (150-450) k/uL Lymphocytes # (1.0-4.8) k/uL Macrocytosis Chloride 115 H (98-107) mmol/L BUN 20 H (7-17) mg/dL Creatinine 0.48 L (0.52-1.04) mg/dL Glucose 125 H (74-99) mg/dL POC Glucose (mg/dL) 134 H (70-110) mg/dL Calcium 7.7 L (8.4-10.2) mg/dL Magnesium 2.7 H (1.6-2.3) mg/dL AST 55 H (14-36) U/L ALT 119 H (4-34) U/L Total Protein 3.6 L (6.3-8.2) g/dL Albumin 2.0 L (3.5-5.0) g/dL Microbiology - Last 24 Hours (Table) 09/01/21 19:42 Blood Culture - Preliminary Blood No Growth after 72 hours 09/02/21 12:03 Blood Culture - Preliminary Blood No Growth after 48 hours 09/02/21 20:49 Gram Stain - Preliminary Sputum Sputum Culture - Preliminary Gram Neg Bacilli
[2021-09-05 11:45] LABS: Glucose,Whole Blood 114 mg/dL (70-110)
--- NOTE | 2021-09-05 12:17 | P.PN ---
Subjective Progress Note Date: 09/05/21 Principal diagnosis: Acute hypoxic respiratory failure, sepsis, septic shock This is a 75-year-old female with history of multiple medical problems including dementia, COPD, chronic atrial fibrillation, seizure disorder, failure to thrive, hypertension, patient was admitted on 08/11/21, although the patient has been in the hospital over a half dozen times in the last few months with similar issues. Discharged last on 07/28, readmitted on 08/11 and has been in the hospital since then with multiple medical problems, failure to thrive, and this time she had enterococcal bacteremia. She was seen by Dr. Mcbride and by , as well as Dr. Nguyen, and being treated with antibiotics. Recently she had a PEG tube placed, and apparently she had issues of bleeding related to the PEG tube placement over the last couple of days. Patient has been on eliquis which I have placed on hold at present. Today I happened to be seeing the patient next door, and the rapid response team was working on this patient were and the patient was unresponsive, she had very shallow breathing, unable to protect her airways, she was also profoundly hypotensive and could barely get a blood press ure on this patient. The rapid response team asked me to evaluate the patient since she is going to be transferred to the ICU and Dr. Mcbride has no active privileges in the ICU. I evaluated the patient, intubated the patient with a size 7.5 endotracheal tube. Given fluid boluses. Started the patient on norepinephrine. A central line was established patient transferred to the ICU and a left radial arterial line was also placed. Updated the family at bedside on her condition and obviously the patient is septic, and she is on proper antibiotics as per infectious disease on the case. Patient will receive more fluids, and we will continue to follow closely in the ICU. Reevaluated today on 09/03/21, patient remains in the ICU, intubated and mechanically ventilated. Patient is on assist control rate of 2010 volume 400 FiO2 30% and PEEP of 5 earlier ABG on 50% showed a pO2 of 183 pCO2 36 pH of 7.38, and her FiO2 was decreased down to 30%. Patient is off norepinephrine, she didn't require norepinephrine yesterday, and she was on a lot of it for a while. However she was given fluid boluses and her blood pressure stabilized. She was also given 2 units of packed RBCs for low hemoglobin. Patient is now off norepinephrine, she is on IV fluid 0.9 normal saline at 100 mL per hour, she is also on amiodarone 0.5 mg/m, patient is on Glucerna for enteral feeding. Her urine output is marginal, has the patient will be given albumin and Lasix she is on Lovenox but her platelets are low, and I suggested that we go back to eliquis at 5 mg twice a day via PEG tube. No further bleeding noted around the site of the peg tube. Patient remains unresponsive. Not following any instructions, however I plan to discontinue propofol and assess mental status off sedation. Labs today showed WBC count of 14.1 hemoglobin 11.3. Platelets are 61,000. Basic metabolic profile is normal renal profile is normal liver profile is slightly abnormal with elevated AST of 111 and ALT of 214. Reevaluated today on 09/04/21, patient remains in the ICU, intubated and mechanically ventilated. She is presently on pressure support mode of mechanical ventilation, this was basically tolerated overnight. She is on pressure support of 10 and CPAP, and I cut it down to 8 and CPAP, continued to do fairly well. She had decent tidal volumes and normal respiratory rate. Hence I proceeded to extubating the patient while up at bedside. ABG today showed a pO2 of 97 pCO2 35 pH of 7.46. Prior to extubating the patient, patient was noted to be arousable, followed simple instructions like squeezing hands, w iggling toes, closing eyes, and she seems to be appropriate. But she seems to be generally weak. Again I recommended extubating the patient to BiPAP 01/12. Patient was on vital AF via PEG tube and she will remain on enteral feeding. She will remain on antibiotics that she is presently on, and again I will extubated the patient to BiPAP. There is again is 10.9 hemoglobin is 9 ABG as noted earlier. Basic metabolic profile is normal potassium is 3.0, being corrected. Chest x-ray is showing improvement in her right lower lobe infiltrate and atelectasis Patient was reevaluated today on 09/05/21, remains in the ICU, patient tolerated extubation well for the last 2 days, she is on 4 L nasal cannula with O2 sats of 99%. Patient is also off BiPAP, she was on 12/6/30%. She is on enteral feeding via PEG tube receiving vital AF at 53 mL per hour. Patient is a bit edematous and swollen, hence Lasix will be given today 20 mg IV push times one. Her urine output is marginal 10-50 mL per hour. Patient is awake, she follows simple instructions, she is presently confused otherwise. WBC count is 8.2 hemoglobin is 9.4 lites are normal renal profile is normal. Objective - Vital Signs Vital signs: Vital Signs Temp 99.8 F H 09/05/21 04:00 Pulse 120 H 09/05/21 11:44 Resp 21 09/05/21 05:30 BP 108/90 09/05/21 05:30 Pulse Ox 99 09/05/21 06:05 FiO2 30 09/05/21 04:18 Intake & Output 09/04/21 09/05/21 09/05/21 18:59 06:59 18:59 Intake Total 825 670 Output Total 399 400 Balance 426 270 Weight 72.4 kg 70.3 kg Intake: IV 475 640 Magnesium Sulfate-D5w Pmx 200 1 gm In Dextrose/Water 1 100ml.bag @ 100 mls/hr IVPB Q1H [facility] Rx#: [id number] Piperacillin-Tazobactam 3 175 200 .375 gm In Sodium Chloride 0.9% 100 ml @ 25 mls/hr IVPB Q8H [facility] Rx#: [id number] Sodium Chloride 0.9% 1, 300 240 000 ml @ 20 mls/hr IV . Q24H [facility] Rx#:[id number] Tube Feeding 320 30 Other 30 Output: Urine 399 400 Other: Voiding Method Indwelling Catheter Indwelling Catheter ABP, PAP, CO, CI - Last Documented Arterial Blood Pressure 105/59 - Exam Physical Exam: 75-year-old female in no distress, on 4 L nasal cannula. Head: Atraumatic, normocephalic. HEENT: [No neck masses.] [No thyromegaly.] [No JVD.] Patient looks pale, PERRLA, EOMI, nonicteric. Chest: [Symmetrical chest expansion diminished breath sounds at the bases no rhonchi and no wheezes] Cardiac Exam: Distant S1 and S2, no S3 gallop, 2/6 systolic murmur thought the precordium. Abdomen: [Soft, nontender, no megaly, no rebound, no guarding, normal bowel sounds.] PEG tube is noted, and seems intact. Extremities: No clubbing, trace of bipedal edema or cyanosis, no distal pulses could be palpable. Neurological Exam: Awake, follows simple instructions, slightly confused, she does have underlying dementia. Psychiatric: Normal mood, normal affect, confused. Skin: No rashes - Labs CBC & Chem 7: 09/05/21 05:48 09/05/21 05:48 Labs: Abnormal Lab Results - Last 24 Hours (Table) 09/04/21 09/05/21 09/05/21 Range/Units 18:01 00:09 05:48 RBC 2.72 L (3.80-5.40) m/uL Hgb 9.4 L (11.4-16.0) gm/dL Hct 29.5 L (34.0-46.0) % MCV 108.5 H (80.0-100.0) fL RDW 19.1 H (11.5-15.5) % Plt Count 45 L (150-450) k/uL Lymphocytes # 0.3 L (1.0-4.8) k/uL Macrocytosis Marked A Chloride (98-107) mmol/L BUN (7-17) mg/dL Creatinine (0.52-1.04) mg/dL Glucose (74-99) mg/dL POC Glucose (mg/dL) 118 H 111 H (70-110) mg/dL Calcium (8.4-10.2) mg/dL Magnesium (1.6-2.3) mg/dL AST (14-36) U/L ALT (4-34) U/L Total Protein (6.3-8.2) g/dL Albumin (3.5-5.0) g/dL 09/05/21 09/05/21 09/05/21 Range/Units 05:48 05:48 05:50 RBC (3.80-5.40) m/uL Hgb (11.4-16.0) gm/dL Hct (34.0-46.0) % MCV (80.0-100.0) fL RDW (11.5-15.5) % Plt Count (150-450) k/uL Lymphocytes # (1.0-4.8) k/uL Macrocytosis Chloride 115 H (98-107) mmol/L BUN 20 H (7-17) mg/dL Creatinine 0.48 L (0.52-1.04) mg/dL Glucose 125 H (74-99) mg/dL POC Glucose (mg/dL) 134 H (70-110) mg/dL Calcium 7.7 L (8.4-10.2) mg/dL Magnesium 2.7 H (1.6-2.3) mg/dL AST 55 H (14-36) U/L ALT 119 H (4-34) U/L Total Protein 3.6 L (6.3-8.2) g/dL Albumin 2.0 L (3.5-5.0) g/dL 09/05/21 Range/Units 11:43 RBC (3.80-5.40) m/uL Hgb (11.4-16.0) gm/dL Hct (34.0-46.0) % MCV (80.0-100.0) fL RDW (11.5-15.5) % Plt Count (150-450) k/uL Lymphocytes # (1.0-4.8) k/uL Macrocytosis Chloride (98-107) mmol/L BUN (7-17) mg/dL Creatinine (0.52-1.04) mg/dL Glucose (74-99) mg/dL POC Glucose (mg/dL) 114 H (70-110) mg/dL Calcium (8.4-10.2) mg/dL Magnesium (1.6-2.3) mg/dL AST (14-36) U/L ALT (4-34) U/L Total Protein (6.3-8.2) g/dL Albumin (3.5-5.0) g/dL Microbiology - Last 24 Hours (Table) 09/01/21 19:42 Blood Culture - Preliminary Blood No Growth after 72 hours 09/02/21 12:03 Blood Culture - Preliminary Blood No Growth after 48 hours 09/02/21 20:49 Gram Stain - Preliminary Sputum Sputum Culture - Preliminary Gram Neg Bacilli Assessment and Plan Assessment: Impression: Acute hypoxic respiratory failure secondary to sepsis, and suspect septic shock. Acute blood loss anemia secondary to bleeding at the PEG tube site. Failure to thrive. Urinary tract infection History of dementia Electrolytes imbalance Chronic atrial fibrillation Acute kidney injury Elevated troponin Normal pressure hydrocephalus History of hypertension Recommendation: Continue patient on nasal cannula Continue to monitor in the ICU Continue nutritional support. Patient is on enteral feeding via PEG tube. Continue antibiotics as per ID on the case. Continue anticoagulation therapy and monitor for any signs of bleeding Long-term prognosis remains relatively poor and guarded We will continue to follow while in the ICU. Time with Patient: Less than 30
--- NOTE | 2021-09-05 12:37 | P.PN ---
Subjective Progress Note Date: 09/05/21 CHIEF COMPLAINT: Protein malnutrition HISTORY OF PRESENT ILLNESS: The patient is a 75-year-old female status post gastrostomy tube placement 09/01/2021 for moderate to severe protein malnutrition. Patient is in the intensive care unit. Patient was extubated. Discussion with her nurse without signs of bleeding. ROS: No fevers over 100.0 or chills. Has chronic atrial fibrillation. Mechanically ventilated. Has dementia PHYSICAL EXAM: VITAL SIGNS: Reviewed CONSTITUTIONAL: Well developed and in no acute distress. EYES: Conjuctivae without sclera icterus. Extraocular movements grossly intact. HEAD, EARS, NOSE, THROAT: Moist buccal mucosa. Head is atraumatic, normocephalic. Hears conversational speech. No nasal drainage. RESPIRATORY: Non-labored respirations and equal bilateral excursions. Mechanically ventilated and intubated CARDIOVASCULAR: Palpable 2+ radial pulses. ABDOMEN: Gastrostomy site clean and dry. No bleeding. MUSCULOSKELETAL: No gross deformity of the lower extremities noted. No clubbing. No cyanosis. SKIN: Good skin turgor. Well perfused. NEUROLOGIC: No focal or lateralizing signs. PSYCH: Sedated CLINICAL LABS: Reviewed. Hemoglobin stable 9.0-9.4. ASSESSMENT: 1. Moderate to severe protein calorie malnutrition 2. Hypoxic respiratory failure 3. Atrial fibrillation on chronic anticoagulation 4. Dementia PLAN: 1. Tube feeds goal managed per dietitian. 2. Continue ICU care. Objective - Vital Signs Vital signs: Vital Signs Temp 99.8 F H 09/05/21 04:00 Pulse 120 H 09/05/21 11:44 Resp 21 09/05/21 05:30 BP 108/90 09/05/21 05:30 Pulse Ox 99 09/05/21 06:05 FiO2 30 09/05/21 04:18 Intake & Output 09/04/21 09/05/21 09/05/21 18:59 06:59 18:59 Intake Total 825 670 Output Total 399 400 Balance 426 270 Weight 72.4 kg 70.3 kg Intake: IV 475 640 Magnesium Sulfate-D5w Pmx 200 1 gm In Dextrose/Water 1 100ml.bag @ 100 mls/hr IVPB Q1H [facility] Rx#: [id number] Piperacillin-Tazobactam 3 175 200 .375 gm In Sodium Chloride 0.9% 100 ml @ 25 mls/hr IVPB Q8H [facility] Rx#: [id number] Sodium Chloride 0.9% 1, 300 240 000 ml @ 20 mls/hr IV . Q24H [facility] Rx#:[id number] Tube Feeding 320 30 Other 30 Output: Urine 399 400 Other: Voiding Method Indwelling Catheter Indwelling Catheter ABP, PAP, CO, CI - Last Documented Arterial Blood Pressure 105/59 - Labs CBC & Chem 7: 09/05/21 05:48 09/05/21 05:48 Labs: Abnormal Lab Results - Last 24 Hours (Table) 09/04/21 09/05/21 09/05/21 Range/Units 18:01 00:09 05:48 RBC 2.72 L (3.80-5.40) m/uL Hgb 9.4 L (11.4-16.0) gm/dL Hct 29.5 L (34.0-46.0) % MCV 108.5 H (80.0-100.0) fL RDW 19.1 H (11.5-15.5) % Plt Count 45 L (150-450) k/uL Lymphocytes # 0.3 L (1.0-4.8) k/uL Macrocytosis Marked A Chloride (98-107) mmol/L BUN (7-17) mg/dL Creatinine (0.52-1.04) mg/dL Glucose (74-99) mg/dL POC Glucose (mg/dL) 118 H 111 H (70-110) mg/dL Calcium (8.4-10.2) mg/dL Magnesium (1.6-2.3) mg/dL AST (14-36) U/L ALT (4-34) U/L Total Protein (6.3-8.2) g/dL Albumin (3.5-5.0) g/dL 09/05/21 09/05/21 09/05/21 Range/Units 05:48 05:48 05:50 RBC (3.80-5.40) m/uL Hgb (11.4-16.0) gm/dL Hct (34.0-46.0) % MCV (80.0-100.0) fL RDW (11.5-15.5) % Plt Count (150-450) k/uL Lymphocytes # (1.0-4.8) k/uL Macrocytosis Chloride 115 H (98-107) mmol/L BUN 20 H (7-17) mg/dL Creatinine 0.48 L (0.52-1.04) mg/dL Glucose 125 H (74-99) mg/dL POC Glucose (mg/dL) 134 H (70-110) mg/dL Calcium 7.7 L (8.4-10.2) mg/dL Magnesium 2.7 H (1.6-2.3) mg/dL AST 55 H (14-36) U/L ALT 119 H (4-34) U/L Total Protein 3.6 L (6.3-8.2) g/dL Albumin 2.0 L (3.5-5.0) g/dL 09/05/21 Range/Units 11:43 RBC (3.80-5.40) m/uL Hgb (11.4-16.0) gm/dL Hct (34.0-46.0) % MCV (80.0-100.0) fL RDW (11.5-15.5) % Plt Count (150-450) k/uL Lymphocytes # (1.0-4.8) k/uL Macrocytosis Chloride (98-107) mmol/L BUN (7-17) mg/dL Creatinine (0.52-1.04) mg/dL Glucose (74-99) mg/dL POC Glucose (mg/dL) 114 H (70-110) mg/dL Calcium (8.4-10.2) mg/dL Magnesium (1.6-2.3) mg/dL AST (14-36) U/L ALT (4-34) U/L Total Protein (6.3-8.2) g/dL Albumin (3.5-5.0) g/dL Microbiology - Last 24 Hours (Table) 09/02/21 20:49 Gram Stain - Final Sputum Sputum Culture - Final Pseudomonas aeruginosa 09/01/21 19:42 Blood Culture - Preliminary Blood No Growth after 72 hours 09/02/21 12:03 Blood Culture - Preliminary Blood No Growth after 48 hours
--- NOTE | 2021-09-05 13:41 | XR ---
EXAMINATION TYPE: XR chest 1V portable DATE OF EXAM: 09/05/2021 COMPARISON: 09/04/2021 INDICATION: Tube placement TECHNIQUE: Single frontal view of the chest is obtained. FINDINGS: The heart size is mildly prominent. The pulmonary vasculature is normal. Small bilateral pleural effusions are present. Patient has been extubated. IMPRESSION: 1. Small bilateral pleural effusions
--- NOTE | 2021-09-05 14:06 | P.PN ---
Subjective Progress Note Date: 09/05/21 Principal diagnosis: Leukocytosis and bacteremia Patient is a 75-year-old -Citizen Of [place] female initially presented to hospital on 08/11/2021 for increasing weakness slurred speech with concern for possible CVA patient did have Enterococcus faecalis bacteremia Patient UA was negative. CT Abdominal pelvis didn't mention any abnormality echocardiogram negative for any vegetation subsequently did have a PEG tube placement for decreased by mouth intake afterwards worsening status requiring transfer to the next few for the patient was intubated and now has been successfully extubated On today's evaluation that is 09/04/2021, the patient did have a low-grade fever of 99.8F, patient is breathing comfortably on nasal cannula oxygen the patient remains to be lethargic and did not provide any history no vomiting or diarrhea was reported by the nursing staff Objective - Vital Signs Vital signs: Vital Signs Temp 99.8 F H 09/05/21 04:00 Pulse 120 H 09/05/21 11:44 Resp 21 09/05/21 05:30 BP 108/90 09/05/21 05:30 Pulse Ox 99 09/05/21 06:05 FiO2 30 09/05/21 04:18 Intake & Output 09/04/21 09/05/21 09/05/21 18:59 06:59 18:59 Intake Total 825 670 Output Total 399 400 Balance 426 270 Weight 72.4 kg 70.3 kg Intake: IV 475 640 Magnesium Sulfate-D5w Pmx 200 1 gm In Dextrose/Water 1 100ml.bag @ 100 mls/hr IVPB Q1H [facility] Rx#: [id number] Piperacillin-Tazobactam 3 175 200 .375 gm In Sodium Chloride 0.9% 100 ml @ 25 mls/hr IVPB Q8H [facility] Rx#: [id number] Sodium Chloride 0.9% 1, 300 240 000 ml @ 20 mls/hr IV . Q24H [facility] Rx#:[id number] Tube Feeding 320 30 Other 30 Output: Urine 399 400 Other: Voiding Method Indwelling Catheter Indwelling Catheter ABP, PAP, CO, CI - Last Documented Arterial Blood Pressure 105/59 - Exam GENERAL DESCRIPTION: Elderly female lying in bed on BiPAP LUNGS: Unlabored breathing. Decreased breath sound the base HEART: S1, S2, regular rate and rhythm. ABDOMEN: Soft, no tenderness , guarding or rigidity, no organomegaly EXTREMITIES: No edema of feet. - Labs CBC & Chem 7: 09/05/21 05:48 09/05/21 05:48 Labs: Abnormal Lab Results - Last 24 Hours (Table) 09/04/21 09/05/21 09/05/21 Range/Units 18:01 00:09 05:48 RBC 2.72 L (3.80-5.40) m/uL Hgb 9.4 L (11.4-16.0) gm/dL Hct 29.5 L (34.0-46.0) % MCV 108.5 H (80.0-100.0) fL RDW 19.1 H (11.5-15.5) % Plt Count 45 L (150-450) k/uL Lymphocytes # 0.3 L (1.0-4.8) k/uL Macrocytosis Marked A Chloride (98-107) mmol/L BUN (7-17) mg/dL Creatinine (0.52-1.04) mg/dL Glucose (74-99) mg/dL POC Glucose (mg/dL) 118 H 111 H (70-110) mg/dL Calcium (8.4-10.2) mg/dL Magnesium (1.6-2.3) mg/dL AST (14-36) U/L ALT (4-34) U/L Total Protein (6.3-8.2) g/dL Albumin (3.5-5.0) g/dL 09/05/21 09/05/21 09/05/21 Range/Units 05:48 05:48 05:50 RBC (3.80-5.40) m/uL Hgb (11.4-16.0) gm/dL Hct (34.0-46.0) % MCV (80.0-100.0) fL RDW (11.5-15.5) % Plt Count (150-450) k/uL Lymphocytes # (1.0-4.8) k/uL Macrocytosis Chloride 115 H (98-107) mmol/L BUN 20 H (7-17) mg/dL Creatinine 0.48 L (0.52-1.04) mg/dL Glucose 125 H (74-99) mg/dL POC Glucose (mg/dL) 134 H (70-110) mg/dL Calcium 7.7 L (8.4-10.2) mg/dL Magnesium 2.7 H (1.6-2.3) mg/dL AST 55 H (14-36) U/L ALT 119 H (4-34) U/L Total Protein 3.6 L (6.3-8.2) g/dL Albumin 2.0 L (3.5-5.0) g/dL 09/05/21 Range/Units 11:43 RBC (3.80-5.40) m/uL Hgb (11.4-16.0) gm/dL Hct (34.0-46.0) % MCV (80.0-100.0) fL RDW (11.5-15.5) % Plt Count (150-450) k/uL Lymphocytes # (1.0-4.8) k/uL Macrocytosis Chloride (98-107) mmol/L BUN (7-17) mg/dL Creatinine (0.52-1.04) mg/dL Glucose (74-99) mg/dL POC Glucose (mg/dL) 114 H (70-110) mg/dL Calcium (8.4-10.2) mg/dL Magnesium (1.6-2.3) mg/dL AST (14-36) U/L ALT (4-34) U/L Total Protein (6.3-8.2) g/dL Albumin (3.5-5.0) g/dL Microbiology - Last 24 Hours (Table) 09/02/21 20:49 Gram Stain - Final Sputum Sputum Culture - Final Pseudomonas aeruginosa 09/01/21 19:42 Blood Culture - Preliminary Blood No Growth after 72 hours 09/02/21 12:03 Blood Culture - Preliminary Blood No Growth after 48 hours Assessment and Plan (1) Leukocytosis Current Visit: Yes Status: Acute Code(s): D72.829 - ELEVATED WHITE BLOOD CELL COUNT, UNSPECIFIED SNOMED Code(s): 135865923 (2) Bacteremia Current Visit: Yes Status: Acute Code(s): R78.81 - BACTEREMIA SNOMED Code(s): 7368516 Plan: 1patient with Enterococcus bacteremia which usually of gut or urinary source however the UA on 08/26/2020 was negative, blood cultures repeated so far negative, CT abdominal pelvis did not show any acute abnormality, echocardiogram did not show any vegetation possible transient bacteremia from either GI or urinary source, patient is covered with a daptomycin 2- patient subsequently did have worsening of her clinical condition and drop in hemoglobin questionably from the PEG tube site, patient Eliquis has been put on hold, blood and sputum culture has been obtained, blood cultures are negative sputum is growing Pseudomonas that is a sensitive to pathogen and the patient is covered with the Zosyn to continue Time with Patient: Less than 30
[2021-09-05] MEDS: NOREPINEPHRINE 32 MG in SODIUM CHLORIDE 0.9% 218 ML IV SCH (14:35)
[2021-09-05] MEDS: DILTIAZEM ORAL 30 MG TAB PO SCH ×3 (14:42→21:04)
[2021-09-05] MEDS: ACETAMINOPHEN TAB 325 MG TAB PO PRN ×2 (14:56→21:29)
--- NOTE | 2021-09-05 16:45 | P.PN ---
Progress Note - Text Progress Note Date: 09/05/21 Interval history: I'm rounding for Dr. Lalo Nguyen September 04: ICU: Extubated earlier today. Currently on BiPAP. Lethargic. Sitting of 12/30%. PEG tube feeding. Following commands. Edema present. Sinus rhythm with PACs. September 05: ICU: Able to carry out simple conversation. On nasal cannula. Went back into A. fib last night with rapid ventricular rate. PVCs. PEG tube feeding at 30 mL an hour. Active Medications Acetaminophen (Acetaminophen Tab 325 Mg Tab) 650 mg PO Q6HR PRN PRN Reason: Mild Pain or Fever > 100.5 Last Admin: 09/05/21 14:56 Dose: 650 mg Albuterol/Ipratropium (Ipratropium-Albuterol 3 Ml Neb) 3 ml INHALATION RT-Q4H [facility] Last Admin: 09/05/21 16:02 Dose: 3 ml Albuterol/Ipratropium (Ipratropium-Albuterol 3 Ml Neb) 3 ml INHALATION RT-Q2H PRN PRN Reason: Shortness Of Breath Or Wheezing Amiodarone HCl (Amiodarone 200 Mg Tab) 400 mg PO BID [facility] Last Admin: 09/05/21 10:03 Dose: 400 mg Apixaban (Apixaban 5 Mg Tab) 5 mg PO BID [facility]; Protocol Last Admin: 09/05/21 10:05 Dose: 5 mg Budesonide/Formoterol Fumarate (Symbicort 160-4.5 Mcg Inhaler) 2 puff INHALATION RT-BID [facility] Last Admin: 09/05/21 07:18 Dose: 2 puff Chlorhexidine Gluconate (Chlorhexidine Gluconate 15 Ml Cup) 15 ml MUCOUS MEM BID [facility] Last Admin: 09/05/21 10:05 Dose: Not Given Diltiazem HCl (Diltiazem Oral 30 Mg Tab) 30 mg PO QID [facility] Last Admin: 09/05/21 14:42 Dose: 30 mg Fluconazole (Fluconazole 100 Mg Tab) 100 mg PO DAILY [facility]; Protocol Last Admin: 09/05/21 10:04 Dose: 100 mg Norepinephrine Bitartrate 32 (mg/ Sodium Chloride) 250 mls @ 1.512 mls/hr IV .Q24H [facility]; Protocol Last Admin: 09/05/21 14:35 Dose: Not Given Sodium Chloride (Saline 0.9%) 1,000 mls @ 20 mls/hr IV .Q24H [facility] Last Admin: 09/04/21 05:32 Dose: 20 mls/hr Daptomycin 390 mg/ Sodium (Chloride) 50 mls @ 100 mls/hr IVPB Q24H [facility]; Protocol Last Admin: 09/04/21 23:06 Dose: 100 mls/hr Piperacillin Sod/Tazobactam (Sod 3.375 gm/ Sodium Chloride) 100 mls @ 25 mls/hr IVPB Q8H [facility]; Protocol Last Admin: 09/05/21 14:42 Dose: 25 mls/hr Insulin Aspart (Insulin Aspart (Novolog) 100 Unit/Ml Vial) 0 unit SQ Q6HR [facility]; Protocol Last Admin: 09/05/21 14:35 Dose: Not Given Ketotifen Fumarate (Ketotifen 0.025% Ophth Drops 5 Ml Btl) 2 drops BOTH EYES BID [facility] Last Admin: 09/05/21 10:05 Dose: 2 drops Miscellaneous Information (Potassium Replacement Protocol 1 Each Misc) 1 each MISCELLANE DAILY PRN; Protocol PRN Reason: Per Protocol Montelukast Sodium (Montelukast 10 Mg Tab) 10 mg PO HS [facility] Last Admin: 09/04/21 20:49 Dose: 10 mg Naloxone HCl (Naloxone 0.4 Mg/Ml 1 Ml Vial) 0.2 mg IV Q2M PRN PRN Reason: Opioid Reversal Pantoprazole Sodium (Pantoprazole 40 Mg/10 Ml Vial) 40 mg IVP DAILY [facility] Last Admin: 09/05/21 10:03 Dose: 40 mg On examination: VITAL SIGNS: 99, 120, 27, 112/59, 97% on 4 L GENERAL APPEARANCE: Laying in bed, more awake, answering questions EYES: Pupils equal. Conjunctiva normal. NECK: JVD unable to assess. Mass not palpable. RESPIRATORY: Respiratory effort increased. Lungs decreased breath sounds. CARDIOVASCULAR: First and second sounds normal. No edema. ABDOMEN: Soft. Liver and spleen not palpable. No tenderness. No mass palpable. Psychiatry: Answering simple questions. Neurological: Cranial nerves grossly intact. Following simple commands. INVESTIGATIONS, reviewed in the clinical context: September 05: White count 8.2 hemoglobin 9.4 platelets 45 potassium 4.3 BUN 20 creatinine 0.48 AST 55 ALT 119 White count 10.9 hemoglobin 9 platelets 49 sodium 140 potassium 3 BUN 28 creatinine 0.61 AST 55 ALT 136 Assessment and plan: -Paroxysmal atrial fibrillation with rapid ventricular rate, overnight. Eliquis 5 mg twice a day. Cordarone. Cardizem being started today -Sepsis IV Zosyn -Septic shock: Recovered Patient received levo fed -Acute kidney injury secondary to hemodynamic ATN.: Improved Creatinine had peaked at 1.31. -Moderate persistent Asthma, exacerbation Symbicort 160/4.52 puffs twice a day DuoNeb -Mild cognitive impairment from early dementia -Hyperlipidemia -Acute blood loss anemia secondary to bleeding at PEG tube site -Essential hypertension Currently off antihypertensive -Nephrolithiasis, asymptomatic -Primary osteoarthritis Pain control as needed -Chronic gait dysfunction uses a walker Fall precautions -Full code A. fib uncontrolled. Cardizem started. Continue IV Zosyn. Follow with multiple consultants.
[2021-09-05 18:10] LABS: Glucose,Whole Blood 116 mg/dL (70-110)
[2021-09-05] MEDS: MONTELUKAST 10 MG TAB PO SCH (20:29)
[2021-09-05] MEDS: DAPTOMYCIN IVPB SCH (22:57)
[2021-09-05] MEDS: SODIUM CHLORIDE 0.9% IVPB SCH (22:57)
[2021-09-05 23:17] LABS: Glucose,Whole Blood 109 mg/dL (70-110)
[2021-09-06] MEDS: ACETAMINOPHEN TAB 325 MG TAB PO PRN ×3 (04:18→20:55)
[2021-09-06 04:48] LABS: Anisocytosis Slight; Basophils % (A) 0 %; Eosinophils % (A) 1 %; HCT 28.9 % (34.0-46.0); Hypochromasia Moderate; Lymphocytes # (A) 0.3 k/uL (1.0-4.8); Lymphocytes % (A) 4 %; MCH 33.8 pg (25.0-35.0); MCHC 31.2 g/dL (31.0-37.0); MCV 108.1 fL (80.0-100.0); Macrocytosis Marked; Mean Platelet Volume 12.9; Monocytes # (A) 0.1 k/uL (0-1.0); Monocytes % (A) 2 %; Neutrophils # (A) 5.4 k/uL (1.3-7.7); Neutrophils % (A) 92 %; RBC 2.67 m/uL (3.80-5.40); RDW 18.4 % (11.5-15.5); WBC 5.8 k/uL (3.8-10.6)
[2021-09-06 04:50] LABS: Platelet Count 39 k/uL (150-450)
[2021-09-06 04:53] LABS: ALT 105 U/L (4-34); AST 60 U/L (14-36); African American GFR (CKD) >90 (>60 ml/min/1.73 sqM); Alkaline Phosphatase 79 U/L (38-126); Anion Gap 3 mmol/L; Blood Urea Nitrogen 17 mg/dL (7-17); Calcium 7.7 mg/dL (8.4-10.2); Carbon Dioxide 26 mmol/L (22-30); Chloride 108 mmol/L (98-107); Glucose 116 mg/dL (74-99); Non-African American GFR(CKD) >90 (>60 ml/min/1.73 sqM); Potassium 3.6 mmol/L (3.5-5.1); Sodium 137 mmol/L (137-145); Total Bilirubin 0.9 mg/dL (0.2-1.3); Total Protein 3.6 g/dL (6.3-8.2)
[2021-09-06 05:07] LABS: Glucose,Whole Blood 135 mg/dL (70-110)
[2021-09-06] MEDS: PIPERACILLIN-TAZOBACTAM 3.375 GM in SODIUM CHLORIDE 0.9% 100 ML IVPB SCH ×3 (05:14→22:30)
[2021-09-06] MEDS: POTASSIUM CHLORIDE 10 MEQ in WATER FOR INJECTION 1 100ML.BAG IVPB SCH ×2 (05:15→06:15)
[2021-09-06] MEDS: INSULIN ASPART (NovoLOG) 100 UNIT/ML VIAL SQ SCH ×3 (05:15→17:10)
[2021-09-06 06:10] LABS: Polychromasia Present
[2021-09-06] MEDS: SODIUM CHLORIDE 0.9% 1,000 ML IV SCH (06:16)
[2021-09-06] MEDS: SYMBICORT 160-4.5 MCG INHALER INHALATION SCH ×2 (07:27→21:53)
[2021-09-06] MEDS: IPRATROPIUM-ALBUTEROL 3 ML NEB INHALATION SCH ×4 (07:27→21:53)
[2021-09-06] MEDS: APIXABAN 5 MG TAB PO SCH ×2 (08:24→20:07)
[2021-09-06] MEDS: AMIODARONE 200 MG TAB PO SCH ×2 (08:24→20:07)
[2021-09-06] MEDS: DILTIAZEM ORAL 30 MG TAB PO SCH ×4 (08:24→20:54)
[2021-09-06] MEDS: CHLORHEXIDINE GLUCONATE 15 ML CUP MUCOUS MEM SCH (08:25)
[2021-09-06] MEDS: FLUCONAZOLE 100 MG TAB PO SCH (08:25)
[2021-09-06] MEDS: PANTOPRAZOLE 40 MG/10 ML VIAL IVP SCH (08:25)
[2021-09-06] MEDS: NOREPINEPHRINE 32 MG in SODIUM CHLORIDE 0.9% 218 ML IV SCH (08:26)
[2021-09-06] MEDS: KETOTIFEN 0.025% OPHTH DROPS 5 ML BTL BOTH EYES SCH ×2 (08:26→21:48)
--- NOTE | 2021-09-06 08:28 | XR ---
EXAMINATION TYPE: XR chest 1V portable DATE OF EXAM: 09/06/2021 COMPARISON: 09/05/2021 INDICATION: Tube placement TECHNIQUE: Single frontal view of the chest is obtained. FINDINGS: The heart size is mildly prominent. The pulmonary vasculature is normal. Bibasilar infiltrates are present. Small effusions are present. IMPRESSION: 1. Bibasilar infiltrates and small bilateral pleural effusions. Continued follow-up is recommended.
--- NOTE | 2021-09-06 11:30 | P.PN ---
Subjective This is a pleasant 75-year-old with past medical history significant for advanced dementia, postural hypotension, chronic kidney disease, hypertension, paroxysmal atrial fibrillation on Eliquis, Bronchitis. She used to follow in the office with Dr. Smart. We are being consulted for elevated troponin. Patient is a poor historian unable to state why she came to the hospital. She has no complaints at bedside. Denies any pain, chest pain, shortness of breath. DIAGNOSTICS: Most recent echo 06/2021 revealed EF 5560%, moderately increase posterior wall thickness Patient was admitted to the hospital in November 2020 with complaints of chest pain and shortness of breath. She was evaluated by nuclear Stress test and echocardiogram. Nuclear stress test showed mild ischemia. She was evaluated Dr. Cotton, nuclear stress test was reviewed by cardiology and medical therapy was advised. 08/26/2021- Cardiology was asked to evaluate patient secondary to atrial fibrillation with RVR. Apparently yesterday the patient went into A. fib with R VR. She was started on IV Cardizem which was then discontinued 09/01/2021 Patient seen and examined at bedside, no acute distress. Confused. Tearful on exam. She denies any chest pain, palpitations or shortness of breath. Vital signs are stable. Patient is currently in sinus mechanism heart rate 70s-80s. 09/05 Patient had been transferred to ICU and intubated. She had issues with A. fib and has been on amiodarone as well as Cardizem drip. She did convert to sinus rhythm and therefore amiodarone was changed to oral amiodarone and a Cardizem drip was stopped. Her blood pressures have been borderline however has been off of vasopressors. She had respiratory failure and apnea however was extubated and currently on 2 L nasal cannula. She denies any chest pain or pressure. States she has a mild appetite however has had issues with failure to thrive and therefore has been receiving tube feeding currently at 33 mL/h. Does have mild lower extremity edema and mild decreased breath sounds at bases. Albumin noted to be extremely low 2.0. She did go back into A. fib overnight with mild tachycardia heart rates in the 100s to 120s. 09/06 Patient seen and examined. Patient denies any shortness breath. Still receiving PEG tube feeds at 30 mL per hour. Denies any chest pain or pressure. Still diffuse edema likely related to severe protein calorie malnutrition. Sputum culture growing out Pseudomonas however most recent blood cultures negative. BUN, creatinine stable at 0.4. Patient currently sinus rhythm with multiple PACs with heart rates mainly 90s to 100. PHYSICAL EXAM: VITAL SIGNS: Reviewed. GENERAL: Well-developed in no acute distress, chronically ill appearing, poor recall NECK: Supple. No JVD or thyromegaly LUNGS: Respirations even and unlabored. Decreased breath sounds at bases HEART: Irregular rate and rhythm. S1 and S2 heard. EXTREMITIES: Normal range of motion. No clubbing or cyanosis. Peripheral pulses intact. 1+ lower extremity edema ASSESSMENT: Paroxysmal A. fib currently sinus rhythm with multiple PACs Sepsis with enterococcus bacteremia Acute kidney injury, improved Acute on chronic diastolic heart failure, exacerbated by severe protein calorie malnutrition Urinary tract infection Leukocytosis Elevated troponin, likely related to acute kidney injury, sepsis Dementia Altered mental status History asthma/COPD History of Hypertension History of postural hypotension Severe protein calorie malnutrition PLAN: Patient transitioned to oral Cardizem as well as oral amiodarone and has been tolerating well. Currently sinus rhythm with multiple PACs and heart rates in the 90s to low 100 100s. Continue with current d 20 mg IV daily however much of edema related to third spacing and severe protein calorie malnutrition. Continue with supportive care for bacteremia and sepsis. Prognosis guarded. Objective - Vital Signs Vital signs: Vital Signs Temp 98.7 F 09/06/21 08:00 Pulse 104 H 09/06/21 11:23 Resp 20 09/06/21 08:00 BP 108/90 09/06/21 08:00 Pulse Ox 95 09/06/21 08:00 FiO2 30 09/05/21 04:18 Intake & Output 09/05/21 09/06/21 09/06/21 18:59 06:59 18:59 Intake Total 733 929 136 Output Total 1965 685 125 Balance -1232 244 11 Weight 72.6 kg Intake: IV 280 260 40 Piperacillin-Tazobactam 3 100 .375 gm In Sodium Chloride 0.9% 100 ml @ 25 mls/hr IVPB Q8H [facility] Rx#: [id number] Sodium Chloride 0.9% 1, 180 260 40 000 ml @ 20 mls/hr IV . Q24H [facility] Rx#:[id number] Intake, IV Titration 150 Amount DAPTOmycin 390 mg In 50 Sodium Chloride 0.9% 50 ml @ 100 mls/hr IVPB Q24H ON LICENSE OF [facility] Rx#:[id number] Piperacillin-Tazobactam 3 100 .375 gm In Sodium Chloride 0.9% 100 ml @ 25 mls/hr IVPB Q8H ON LICENSE OF [facility] Rx#: [id number] Tube Feeding 360 429 66 Other 93 90 30 Output: Urine 1965 685 125 Other: Voiding Method Indwelling Catheter Indwelling Catheter Indwelling Catheter ABP, PAP, CO, CI - Last Documented Arterial Blood Pressure 123/61 - Labs CBC & Chem 7: 09/06/21 04:00 09/06/21 04:00 Labs: Abnormal Lab Results - Last 24 Hours (Table) 09/05/21 09/05/21 09/06/21 Range/Units 11:43 18:08 04:00 RBC 2.67 L (3.80-5.40) m/uL Hgb 9.0 L (11.4-16.0) gm/dL Hct 28.9 L (34.0-46.0) % MCV 108.1 H (80.0-100.0) fL RDW 18.4 H (11.5-15.5) % Plt Count 39 L (150-450) k/uL Lymphocytes # 0.3 L (1.0-4.8) k/uL Macrocytosis Marked A Chloride (98-107) mmol/L Creatinine (0.52-1.04) mg/dL Glucose (74-99) mg/dL POC Glucose (mg/dL) 114 H 116 H (70-110) mg/dL Calcium (8.4-10.2) mg/dL AST (14-36) U/L ALT (4-34) U/L Total Protein (6.3-8.2) g/dL Albumin (3.5-5.0) g/dL 09/06/21 09/06/21 Range/Units 04:00 05:05 RBC (3.80-5.40) m/uL Hgb (11.4-16.0) gm/dL Hct (34.0-46.0) % MCV (80.0-100.0) fL RDW (11.5-15.5) % Plt Count (150-450) k/uL Lymphocytes # (1.0-4.8) k/uL Macrocytosis Chloride 108 H (98-107) mmol/L Creatinine 0.42 L (0.52-1.04) mg/dL Glucose 116 H (74-99) mg/dL POC Glucose (mg/dL) 135 H (70-110) mg/dL Calcium 7.7 L (8.4-10.2) mg/dL AST 60 H (14-36) U/L ALT 105 H (4-34) U/L Total Protein 3.6 L (6.3-8.2) g/dL Albumin 2.0 L (3.5-5.0) g/dL Microbiology - Last 24 Hours (Table) 09/01/21 19:42 Blood Culture - Preliminary Blood No Growth after 96 hours 09/02/21 12:03 Blood Culture - Preliminary Blood No Growth after 72 hours 09/02/21 20:49 Gram Stain - Final Sputum Sputum Culture - Final Pseudomonas aeruginosa
--- NOTE | 2021-09-06 11:36 | P.PN ---
Subjective Progress Note Date: 09/06/21 Principal diagnosis: Acute hypoxic respiratory failure, sepsis, septic shock This is a 75-year-old female with history of multiple medical problems including dementia, COPD, chronic atrial fibrillation, seizure disorder, failure to thrive, hypertension, patient was admitted on 08/11/21, although the patient has been in the hospital over a half dozen times in the last few months with similar issues. Discharged last on 07/28, readmitted on 08/11 and has been in the hospital since then with multiple medical problems, failure to thrive, and this time she had enterococcal bacteremia. She was seen by Dr. Mcbride and by , as well as Dr. Nguyen, and being treated with antibiotics. Recently she had a PEG tube placed, and apparently she had issues of bleeding related to the PEG tube placement over the last couple of days. Patient has been on eliquis which I have placed on hold at present. Today I happened to be seeing the patient next door, and the rapid response team was working on this patient were and the patient was unresponsive, she had very shallow breathing, unable to protect her airways, she was also profoundly hypotensive and could barely get a blood press ure on this patient. The rapid response team asked me to evaluate the patient since she is going to be transferred to the ICU and Dr. Mcbride has no active privileges in the ICU. I evaluated the patient, intubated the patient with a size 7.5 endotracheal tube. Given fluid boluses. Started the patient on norepinephrine. A central line was established patient transferred to the ICU and a left radial arterial line was also placed. Updated the family at bedside on her condition and obviously the patient is septic, and she is on proper antibiotics as per infectious disease on the case. Patient will receive more fluids, and we will continue to follow closely in the ICU. Reevaluated today on 09/03/21, patient remains in the ICU, intubated and mechanically ventilated. Patient is on assist control rate of 2010 volume 400 FiO2 30% and PEEP of 5 earlier ABG on 50% showed a pO2 of 183 pCO2 36 pH of 7.38, and her FiO2 was decreased down to 30%. Patient is off norepinephrine, she didn't require norepinephrine yesterday, and she was on a lot of it for a while. However she was given fluid boluses and her blood pressure stabilized. She was also given 2 units of packed RBCs for low hemoglobin. Patient is now off norepinephrine, she is on IV fluid 0.9 normal saline at 100 mL per hour, she is also on amiodarone 0.5 mg/m, patient is on Glucerna for enteral feeding. Her urine output is marginal, has the patient will be given albumin and Lasix she is on Lovenox but her platelets are low, and I suggested that we go back to eliquis at 5 mg twice a day via PEG tube. No further bleeding noted around the site of the peg tube. Patient remains unresponsive. Not following any instructions, however I plan to discontinue propofol and assess mental status off sedation. Labs today showed WBC count of 14.1 hemoglobin 11.3. Platelets are 61,000. Basic metabolic profile is normal renal profile is normal liver profile is slightly abnormal with elevated AST of 111 and ALT of 214. Reevaluated today on 09/04/21, patient remains in the ICU, intubated and mechanically ventilated. She is presently on pressure support mode of mechanical ventilation, this was basically tolerated overnight. She is on pressure support of 10 and CPAP, and I cut it down to 8 and CPAP, continued to do fairly well. She had decent tidal volumes and normal respiratory rate. Hence I proceeded to extubating the patient while up at bedside. ABG today showed a pO2 of 97 pCO2 35 pH of 7.46. Prior to extubating the patient, patient was noted to be arousable, followed simple instructions like squeezing hands, w iggling toes, closing eyes, and she seems to be appropriate. But she seems to be generally weak. Again I recommended extubating the patient to BiPAP 01/12. Patient was on vital AF via PEG tube and she will remain on enteral feeding. She will remain on antibiotics that she is presently on, and again I will extubated the patient to BiPAP. There is again is 10.9 hemoglobin is 9 ABG as noted earlier. Basic metabolic profile is normal potassium is 3.0, being corrected. Chest x-ray is showing improvement in her right lower lobe infiltrate and atelectasis Patient was reevaluated today on 09/05/21, remains in the ICU, patient tolerated extubation well for the last 2 days, she is on 4 L nasal cannula with O2 sats of 99%. Patient is also off BiPAP, she was on 12/6/30%. She is on enteral feeding via PEG tube receiving vital AF at 53 mL per hour. Patient is a bit edematous and swollen, hence Lasix will be given today 20 mg IV push times one. Her urine output is marginal 10-50 mL per hour. Patient is awake, she follows simple instructions, she is presently confused otherwise. WBC count is 8.2 hemoglobin is 9.4 lites are normal renal profile is normal. Reevaluated today on 09/06/21, patient remains in the ICU, she is presently on, relatively asymptomatic, and in no distress. Patient is awake, follows simple instructions, and no major issues noted over the last 24 hours. Hence I plan to transfer the patient likely today to a monitor bed on [facility]. WBC count is 5.8 hemoglobin is 9. Electrolytes are normal renal profile is normal. Patient remains on amiodarone 400 mg twice a day she is also on eliquis 5 twice a day she is on daptomycin as per infectious disease on the case, and she is also on Zosyn. Chest x-ray showed mostly atelectasis, possible aspiration pneumonia. Objective - Vital Signs Vital signs: Vital Signs Temp 98.7 F 09/06/21 08:00 Pulse 104 H 09/06/21 11:23 Resp 20 09/06/21 08:00 BP 108/90 09/06/21 08:00 Pulse Ox 95 09/06/21 08:00 FiO2 30 09/05/21 04:18 Intake & Output 09/05/21 09/06/21 09/06/21 18:59 06:59 18:59 Intake Total 733 929 136 Output Total 0970 685 125 Balance -1232 244 11 Weight 72.6 kg Intake: IV 280 260 40 Piperacillin-Tazobactam 3 100 .375 gm In Sodium Chloride 0.9% 100 ml @ 25 mls/hr IVPB Q8H [facility] Rx#: [id number] Sodium Chloride 0.9% 1, 180 260 40 000 ml @ 20 mls/hr IV . Q24H [facility] Rx#:[id number] Intake, IV Titration 150 Amount DAPTOmycin 390 mg In 50 Sodium Chloride 0.9% 50 ml @ 100 mls/hr IVPB Q24H [facility] Rx#:[id number] Piperacillin-Tazobactam 3 100 .375 gm In Sodium Chloride 0.9% 100 ml @ 25 mls/hr IVPB Q8H [facility] Rx#: [id number] Tube Feeding 360 429 66 Other 93 90 30 Output: Urine 1965 685 125 Other: Voiding Method Indwelling Catheter Indwelling Catheter Indwelling Catheter ABP, PAP, CO, CI - Last Documented Arterial Blood Pressure 123/61 - Exam Physical Exam: 75-year-old female in no distress, on room air Head: Atraumatic, normocephalic. HEENT: [No neck masses.] [No thyromegaly.] [No JVD.] Patient looks pale, PERRLA, EOMI, nonicteric. Chest: [Symmetrical chest expansion diminished breath sounds at the bases no rhonchi and no wheezes] Cardiac Exam: Distant S1 and S2, no S3 gallop, 2/6 systolic murmur thought the precordium. Abdomen: [Soft, nontender, no megaly, no rebound, no guarding, normal bowel sounds.] PEG tube is noted, and seems intact. Extremities: No clubbing, trace of bipedal edema or cyanosis, no distal pulses could be palpable. Neurological Exam: Awake, follows simple instructions, slightly confused, she does have underlying dementia. Psychiatric: Normal mood, normal affect, confused. Skin: No rashes - Labs CBC & Chem 7: 09/06/21 04:00 09/06/21 04:00 Labs: Abnormal Lab Results - Last 24 Hours (Table) 09/05/21 09/05/21 09/06/21 Range/Units 11:43 18:08 04:00 RBC 2.67 L (3.80-5.40) m/uL Hgb 9.0 L (11.4-16.0) gm/dL Hct 28.9 L (34.0-46.0) % MCV 108.1 H (80.0-100.0) fL RDW 18.4 H (11.5-15.5) % Plt Count 39 L (150-450) k/uL Lymphocytes # 0.3 L (1.0-4.8) k/uL Macrocytosis Marked A Chloride (98-107) mmol/L Creatinine (0.52-1.04) mg/dL Glucose (74-99) mg/dL POC Glucose (mg/dL) 114 H 116 H (70-110) mg/dL Calcium (8.4-10.2) mg/dL AST (14-36) U/L ALT (4-34) U/L Total Protein (6.3-8.2) g/dL Albumin (3.5-5.0) g/dL 09/06/21 09/06/21 Range/Units 04:00 05:05 RBC (3.80-5.40) m/uL Hgb (11.4-16.0) gm/dL Hct (34.0-46.0) % MCV (80.0-100.0) fL RDW (11.5-15.5) % Plt Count (150-450) k/uL Lymphocytes # (1.0-4.8) k/uL Macrocytosis Chloride 108 H (98-107) mmol/L Creatinine 0.42 L (0.52-1.04) mg/dL Glucose 116 H (74-99) mg/dL POC Glucose (mg/dL) 135 H (70-110) mg/dL Calcium 7.7 L (8.4-10.2) mg/dL AST 60 H (14-36) U/L ALT 105 H (4-34) U/L Total Protein 3.6 L (6.3-8.2) g/dL Albumin 2.0 L (3.5-5.0) g/dL Microbiology - Last 24 Hours (Table) 09/01/21 19:42 Blood Culture - Preliminary Blood No Growth after 96 hours 09/02/21 12:03 Blood Culture - Preliminary Blood No Growth after 72 hours 09/02/21 20:49 Gram Stain - Final Sputum Sputum Culture - Final Pseudomonas aeruginosa Assessment and Plan Assessment: Impression: Acute hypoxic respiratory failure secondary to sepsis, patient required intubation and mechanical ventilation, however she was extubated a few days ago. And tolerated the extubation well Acute blood loss anemia secondary to bleeding at the PEG tube site. Failure to thrive. Urinary tract infection History of dementia Electrolytes imbalance Chronic atrial fibrillation Acute kidney injury Elevated troponin Normal pressure hydrocephalus History of hypertension Recommendation: Transfer patient out of the ICU to a monitor bed on selective Continue nutritional support. Continue enteral feeding via PEG. Continue antibiotics as per ID on the case. Continue anticoagulation therapy and monitor for any signs of bleeding Continue amiodarone, being followed by cardiology. Long-term prognosis remains relatively poor and guarded We will likely transfer out of the ICU if the bed is available on selective Patient could be followed up by Dr. valentina mcbride again and Dr. Nguyen once she is out of the ICU Time with Patient: Less than 30
[2021-09-06 11:37] LABS: Glucose,Whole Blood 89 mg/dL (70-110)
[2021-09-06] MEDS: FUROSEMIDE 10 MG/ML 2 ML VIAL IV SCH (11:37)
--- NOTE | 2021-09-06 13:20 | P.PN ---
Subjective Progress Note Date: 09/06/21 CHIEF COMPLAINT: Protein malnutrition HISTORY OF PRESENT ILLNESS: The patient is a 75-year-old female status post gastrostomy tube placement 09/01/2021 for moderate to severe protein malnutrition. Patient is in the intensive care unit. She is completely extubated. Off BiPAP. Tolerating tube feeds at goal. She had bowel movement without signs of bleeding. ROS: Patient had fevers 101 yesterday afternoon. No nausea or vomiting. She had bowel movement. PHYSICAL EXAM: VITAL SIGNS: Reviewed CONSTITUTIONAL: Well developed and in no acute distress. EYES: Conjuctivae without sclera icterus. Extraocular movements grossly intact. HEAD, EARS, NOSE, THROAT: Moist buccal mucosa. Head is atraumatic, normocephalic. No nasal drainage. RESPIRATORY: Non-labored respirations and equal bilateral excursions. CARDIOVASCULAR: Palpable 2+ radial pulses. ABDOMEN: Gastrostomy site clean and dry. No bleeding. MUSCULOSKELETAL: No clubbing. No cyanosis. SKIN: Good skin turgor. Well perfused. NEUROLOGIC: No focal or lateralizing signs. PSYCH: Sedated CLINICAL LABS: Reviewed. Hemoglobin stable 9.4 down 9.0. I will see normal 5.8. ASSESSMENT: 1. Moderate to severe protein calorie malnutrition 2. Hypoxic respiratory failure 3. Atrial fibrillation on chronic anticoagulation 4. Dementia PLAN: 1. Continue ICU care. 2. May need physical therapy and occupation therapy for generalized weakness Objective - Vital Signs Vital signs: Vital Signs Temp 98.9 F 09/06/21 12:00 Pulse 106 H 09/06/21 12:00 Resp 18 09/06/21 12:00 BP 108/77 09/06/21 12:00 Pulse Ox 95 09/06/21 08:00 FiO2 30 09/05/21 04:18 Intake & Output 09/05/21 09/06/21 09/06/21 18:59 06:59 18:59 Intake Total 733 929 219 Output Total 5369 195 425 Balance -1232 244 -206 Weight 72.6 kg Intake: IV 280 260 60 Piperacillin-Tazobactam 3 100 .375 gm In Sodium Chloride 0.9% 100 ml @ 25 mls/hr IVPB Q8H [facility] Rx#: [id number] Sodium Chloride 0.9% 1, 180 260 60 000 ml @ 20 mls/hr IV . Q24H [facility] Rx#:[id number] Intake, IV Titration 150 Amount DAPTOmycin 390 mg In 50 Sodium Chloride 0.9% 50 ml @ 100 mls/hr IVPB Q24H [facility] Rx#:[id number] Piperacillin-Tazobactam 3 100 .375 gm In Sodium Chloride 0.9% 100 ml @ 25 mls/hr IVPB Q8H [facility] Rx#: [id number] Tube Feeding 360 429 99 Other 93 90 60 Output: Urine 1965 685 425 Other: Voiding Method Indwelling Catheter Indwelling Catheter Indwelling Catheter ABP, PAP, CO, CI - Last Documented Arterial Blood Pressure 123/61 - Labs CBC & Chem 7: 09/06/21 04:00 09/06/21 04:00 Labs: Abnormal Lab Results - Last 24 Hours (Table) 09/05/21 09/06/21 09/06/21 Range/Units 18:08 04:00 04:00 RBC 2.67 L (3.80-5.40) m/uL Hgb 9.0 L (11.4-16.0) gm/dL Hct 28.9 L (34.0-46.0) % MCV 108.1 H (80.0-100.0) fL RDW 18.4 H (11.5-15.5) % Plt Count 39 L (150-450) k/uL Lymphocytes # 0.3 L (1.0-4.8) k/uL Macrocytosis Marked A Chloride 108 H (98-107) mmol/L Creatinine 0.42 L (0.52-1.04) mg/dL Glucose 116 H (74-99) mg/dL POC Glucose (mg/dL) 116 H (70-110) mg/dL Calcium 7.7 L (8.4-10.2) mg/dL AST 60 H (14-36) U/L ALT 105 H (4-34) U/L Total Protein 3.6 L (6.3-8.2) g/dL Albumin 2.0 L (3.5-5.0) g/dL 09/06/21 Range/Units 05:05 RBC (3.80-5.40) m/uL Hgb (11.4-16.0) gm/dL Hct (34.0-46.0) % MCV (80.0-100.0) fL RDW (11.5-15.5) % Plt Count (150-450) k/uL Lymphocytes # (1.0-4.8) k/uL Macrocytosis Chloride (98-107) mmol/L Creatinine (0.52-1.04) mg/dL Glucose (74-99) mg/dL POC Glucose (mg/dL) 135 H (70-110) mg/dL Calcium (8.4-10.2) mg/dL AST (14-36) U/L ALT (4-34) U/L Total Protein (6.3-8.2) g/dL Albumin (3.5-5.0) g/dL Microbiology - Last 24 Hours (Table) 09/01/21 19:42 Blood Culture - Preliminary Blood No Growth after 96 hours 09/02/21 12:03 Blood Culture - Preliminary Blood No Growth after 72 hours 09/02/21 20:49 Gram Stain - Final Sputum Sputum Culture - Final Pseudomonas aeruginosa
[2021-09-06 17:09] LABS: Glucose,Whole Blood 105 mg/dL (70-110)
--- NOTE | 2021-09-06 17:10 | P.PN ---
Progress Note - Text Progress Note Date: 09/06/21 Interval history: I'm rounding for Dr. Lalo Nguyen September 04: ICU: Extubated earlier today. Currently on BiPAP. Lethargic. Sitting of 12/6/30%. PEG tube feeding. Following commands. Edema present. Sinus rhythm with PACs. September 05: ICU: Able to carry out simple conversation. On nasal cannula. Went back into A. fib last night with rapid ventricular rate. PVCs. PEG tube feeding at 30 mL an hour. September 06: ICU: Carrying out simple conversation. Sinus rhythm. PEG tube feeding. Active Medications Acetaminophen (Acetaminophen Tab 325 Mg Tab) 650 mg PO Q6HR PRN PRN Reason: Mild Pain or Fever > 100.5 Last Admin: 09/06/21 15:39 Dose: 650 mg Albuterol/Ipratropium (Ipratropium-Albuterol 3 Ml Neb) 3 ml INHALATION RT-Q2H PRN PRN Reason: Shortness Of Breath Or Wheezing Albuterol/Ipratropium (Ipratropium-Albuterol 3 Ml Neb) 3 ml INHALATION RT-QID [facility] Last Admin: 09/06/21 15:56 Dose: 3 ml Amiodarone HCl (Amiodarone 200 Mg Tab) 400 mg PO BID [facility] Last Admin: 09/06/21 08:24 Dose: 400 mg Apixaban (Apixaban 5 Mg Tab) 5 mg PO BID [facility]; Protocol Last Admin: 09/06/21 08:24 Dose: 5 mg Budesonide/Formoterol Fumarate (Symbicort 160-4.5 Mcg Inhaler) 2 puff INHALATION RT-BID [facility] Last Admin: 09/06/21 07:27 Dose: 2 puff Chlorhexidine Gluconate (Chlorhexidine Gluconate 15 Ml Cup) 15 ml MUCOUS MEM BID [facility] Last Admin: 09/06/21 08:25 Dose: Not Given Diltiazem HCl (Diltiazem Oral 30 Mg Tab) 30 mg PO QID [facility] Last Admin: 09/06/21 17:06 Dose: 30 mg Fluconazole (Fluconazole 100 Mg Tab) 100 mg PO DAILY [facility]; Protocol Last Admin: 09/06/21 08:25 Dose: 100 mg Furosemide (Furosemide 10 Mg/Ml 2 Ml Vial) 20 mg IV DAILY [facility] Last Admin: 09/06/21 11:37 Dose: 20 mg Norepinephrine Bitartrate 32 (mg/ Sodium Chloride) 250 mls @ 1.512 mls/hr IV .Q24H [facility]; Protocol Last Admin: 09/06/21 08:26 Dose: Not Given Sodium Chloride (Saline 0.9%) 1,000 mls @ 20 mls/hr IV .Q24H [facility] Last Admin: 09/06/21 06:16 Dose: 20 mls/hr Daptomycin 390 mg/ Sodium (Chloride) 50 mls @ 100 mls/hr IVPB Q24H [facility]; Protocol Last Admin: 09/05/21 22:57 Dose: 100 mls/hr Piperacillin Sod/Tazobactam (Sod 3.375 gm/ Sodium Chloride) 100 mls @ 25 mls/hr IVPB Q8H [facility]; Protocol Last Admin: 09/06/21 15:30 Dose: 25 mls/hr Insulin Aspart (Insulin Aspart (Novolog) 100 Unit/Ml Vial) 0 unit SQ Q6HR [facility]; Protocol Last Admin: 09/06/21 11:37 Dose: Not Given Ketotifen Fumarate (Ketotifen 0.025% Ophth Drops 5 Ml Btl) 2 drops BOTH EYES BID [facility] Last Admin: 09/06/21 08:26 Dose: 2 drops Miscellaneous Information (Potassium Replacement Protocol 1 Each Misc) 1 each MISCELLANE DAILY PRN; Protocol PRN Reason: Per Protocol Montelukast Sodium (Montelukast 10 Mg Tab) 10 mg PO HS [facility] Last Admin: 09/05/21 20:29 Dose: 10 mg Naloxone HCl (Naloxone 0.4 Mg/Ml 1 Ml Vial) 0.2 mg IV Q2M PRN PRN Reason: Opioid Reversal Pantoprazole Sodium (Pantoprazole 40 Mg/10 Ml Vial) 40 mg IVP DAILY [facility] Last Admin: 09/06/21 08:25 Dose: 40 mg On examination: VITAL SIGNS: 100.6, 110, 22, 115/72, 95% room air GENERAL APPEARANCE: Laying in bed, awake, answering simple questions EYES: Pupils equal. Conjunctiva normal. NECK: JVD unable to assess. Mass not palpable. RESPIRATORY: Respiratory effort increased. Lungs decreased breath sounds. CARDIOVASCULAR: First and second sounds normal. No edema. ABDOMEN: Soft. Liver and spleen not palpable. No tenderness. No mass palpable. Psychiatry: Answering simple questions. Neurological: Cranial nerves grossly intact. Following simple commands. INVESTIGATIONS, reviewed in the clinical context: September 05: White count 8.2 hemoglobin 9.4 platelets 45 potassium 4.3 BUN 20 creatinine 0.48 AST 55 ALT 119 White count 10.9 hemoglobin 9 platelets 49 sodium 140 potassium 3 BUN 28 creatinine 0.61 AST 55 ALT 136 Assessment and plan: -Paroxysmal atrial fibrillation currently in sinus rhythm Eliquis 5 mg twice a day. Cordarone. Cardizem by mouth -Sepsis IV Zosyn -Septic shock: Recovered Patient received levo fed -Acute kidney injury secondary to hemodynamic ATN.: Improved Creatinine had peaked at 1.31. -Moderate persistent Asthma, exacerbation Symbicort 160/4.52 puffs twice a day DuoNeb -Mild cognitive impairment from early dementia -Hyperlipidemia -Acute blood loss anemia secondary to bleeding at PEG tube site -Essential hypertension Currently off antihypertensive -Nephrolithiasis, asymptomatic -Primary osteoarthritis Pain control as needed -Chronic gait dysfunction uses a walker Fall precautions -Full code Back in sinus rhythm. IV Zosyn. Follow with multiple consultants. Other medications to continue.
[2021-09-06] MEDS: MONTELUKAST 10 MG TAB PO SCH (21:48)
[2021-09-06] MEDS: POTASSIUM BICARBONATE/CIT AC 20 MEQ TABLET.EFF NG-TUBE SCH (23:09)
[2021-09-06 23:14] LABS: Glucose,Whole Blood 112 mg/dL (70-110)
[2021-09-07] MEDS: DAPTOMYCIN IVPB SCH ×2 (00:25→22:38)
[2021-09-07] MEDS: SODIUM CHLORIDE 0.9% IVPB SCH ×2 (00:25→22:38)
[2021-09-07] MEDS: INSULIN ASPART (NovoLOG) 100 UNIT/ML VIAL SQ SCH ×5 (00:25→18:18)
[2021-09-07] MEDS: POTASSIUM BICARBONATE/CIT AC 20 MEQ TABLET.EFF NG-TUBE SCH (00:25)
[2021-09-07 05:15] LABS: Glucose,Whole Blood 104 mg/dL (70-110)
[2021-09-07] MEDS: PIPERACILLIN-TAZOBACTAM 3.375 GM in SODIUM CHLORIDE 0.9% 100 ML IVPB SCH ×3 (05:17→22:18)
[2021-09-07 05:53] LABS: Anisocytosis Slight; Basophils % (A) 0 %; Eosinophils % (A) 1 %; HCT 28.8 % (34.0-46.0); HGB 8.9 gm/dL (11.4-16.0); Hypochromasia Marked; Lymphocytes # (A) 0.3 k/uL (1.0-4.8); Lymphocytes % (A) 7 %; MCH 33.9 pg (25.0-35.0); MCV 109.2 fL (80.0-100.0); Macrocytosis Marked; Mean Platelet Volume 11.7; Monocytes # (A) 0.1 k/uL (0-1.0); Monocytes % (A) 2 %; Neutrophils # (A) 3.9 k/uL (1.3-7.7); Neutrophils % (A) 89 %; RBC 2.64 m/uL (3.80-5.40); RDW 17.9 % (11.5-15.5); WBC 4.4 k/uL (3.8-10.6)
[2021-09-07 06:06] LABS: Platelet Count 38 k/uL (150-450)
[2021-09-07 06:09] LABS: ALT 93 U/L (4-34); AST 50 U/L (14-36); African American GFR (CKD) >90 (>60 ml/min/1.73 sqM); Albumin 1.9 g/dL (3.5-5.0); Alkaline Phosphatase 93 U/L (38-126); Anion Gap 0 mmol/L; Blood Urea Nitrogen 15 mg/dL (7-17); Calcium 7.4 mg/dL (8.4-10.2); Carbon Dioxide 25 mmol/L (22-30); Chloride 111 mmol/L (98-107); Glucose 98 mg/dL (74-99); Non-African American GFR(CKD) >90 (>60 ml/min/1.73 sqM); Potassium 4.1 mmol/L (3.5-5.1); Sodium 136 mmol/L (137-145); Total Bilirubin 0.8 mg/dL (0.2-1.3); Total Protein 3.7 g/dL (6.3-8.2)
[2021-09-07] MEDS: SODIUM CHLORIDE 0.9% 1,000 ML IV SCH (06:32)
[2021-09-07 06:40] LABS: Polychromasia Present
--- NOTE | 2021-09-07 07:15 | XR ---
EXAMINATION TYPE: XR chest 1V portable DATE OF EXAM: 09/07/2021 Comparison: 09/06/2021 Clinical History: 75 year-old female tube placement Findings: Patient is rotated towards the right altering the normal cardiomediastinal contours. The patient's ch in obscures the right apex. Heart remains enlarged. Continued small to moderate bilateral pleural eff usions with bibasilar opacities. Impression: Limited, rotated exam. Similar cardiomegaly along with [id number] pleural effusions with adjac ent atelectasis and/or consolidation. Possible sequela of CHF.
--- NOTE | 2021-09-07 07:33 | P.PN ---
Subjective Progress Note Date: 09/07/21 Principal diagnosis: Paroxysmal atrial fibrillation The patient is a 75-year-old female patient with advanced dementia was poor historian with multiple comorbid conditions including paroxysmal atrial fibrillation on a course who we have been consulted for mildly elevated troponin and we advise conservative medical approach. The patient was seen this morning. She continues to be somewhat lethargic. She does have advanced dementia and she is very poor historian. Hemodynamic and she is stable with a soft blood pressure. She has been maintaining sinus mechanism on the current dose of amiodarone which is 400 mg by mouth twice a day. She is on oral anticoagulation. The chest x-ray was reviewed and continues to showed bilateral pleural effusion and pulmonary vascular congestion. Currently she is on Lasix IV. We felt that her elevated troponin was secondary to renal failure and we advise conservative medical approach only. Objective - Vital Signs Vital signs: Vital Signs Temp 98.7 F 09/07/21 04:00 Pulse 97 09/07/21 04:00 Resp 26 H 09/07/21 04:00 BP 116/65 09/07/21 04:00 Pulse Ox 94 L 09/07/21 04:00 FiO2 30 09/05/21 04:18 Intake & Output 09/06/21 09/07/21 09/07/21 18:59 06:59 18:59 Intake Total 219 166 Output Total 425 650 Balance -206 -484 Intake: IV 60 40 Sodium Chloride 0.9% 1, 60 40 000 ml @ 20 mls/hr IV . Q24H [facility] Rx#:[id number] Tube Feeding 99 66 Other 60 60 Output: Urine 425 650 Other: Voiding Method Indwelling Catheter Indwelling Catheter ABP, PAP, CO, CI - Last Documented Arterial Blood Pressure 123/61 - Constitutional General appearance: Present: no acute distress - Respiratory Respiratory: bilateral: diminished - Cardiovascular Rhythm: regular Heart sounds: normal: S1, S2 - Labs CBC & Chem 7: 09/07/21 05:28 09/07/21 05:28 Labs: Abnormal Lab Results - Last 24 Hours (Table) 09/06/21 09/06/21 09/07/21 Range/Units 22:28 23:12 05:28 RBC 2.64 L (3.80-5.40) m/uL Hgb 8.9 L (11.4-16.0) gm/dL Hct 28.8 L (34.0-46.0) % MCV 109.2 H (80.0-100.0) fL RDW 17.9 H (11.5-15.5) % Plt Count 38 L (150-450) k/uL Lymphocytes # 0.3 L (1.0-4.8) k/uL Macrocytosis Marked A Sodium (137-145) mmol/L Potassium 3.4 L (3.5-5.1) mmol/L Chloride (98-107) mmol/L Creatinine (0.52-1.04) mg/dL POC Glucose (mg/dL) 112 H (70-110) mg/dL Calcium (8.4-10.2) mg/dL AST (14-36) U/L ALT (4-34) U/L Total Protein (6.3-8.2) g/dL Albumin (3.5-5.0) g/dL 09/07/21 Range/Units 05:28 RBC (3.80-5.40) m/uL Hgb (11.4-16.0) gm/dL Hct (34.0-46.0) % MCV (80.0-100.0) fL RDW (11.5-15.5) % Plt Count (150-450) k/uL Lymphocytes # (1.0-4.8) k/uL Macrocytosis Sodium 136 L (137-145) mmol/L Potassium (3.5-5.1) mmol/L Chloride 111 H (98-107) mmol/L Creatinine 0.34 L (0.52-1.04) mg/dL POC Glucose (mg/dL) (70-110) mg/dL Calcium 7.4 L (8.4-10.2) mg/dL AST 50 H (14-36) U/L ALT 93 H (4-34) U/L Total Protein 3.7 L (6.3-8.2) g/dL Albumin 1.9 L (3.5-5.0) g/dL Microbiology - Last 24 Hours (Table) 09/01/21 19:42 Blood Culture - Preliminary Blood No Growth after 120 hours 09/02/21 12:03 Blood Culture - Preliminary Blood No Growth after 96 hours Assessment and Plan Assessment: Assessment #1 paroxysmal atrial fibrillation #2 sepsis #3 acute renal failure #4 advanced dementia #5 heart failure with preserved ejection fraction, acute on chronic #6 bilateral pleural effusion secondary to heart failure Plan #1 continue the current dose of amiodarone. Taper the dose down the line probably as an outpatient. Continue Cardizem by mouth #2 continue oral anticoagulation #3 continue Lasix IV. The patient seems to be tolerating that very well and the chest x-ray continues to show findings consistent with heart failure #4 monitor the kidney function and electrolytes #5 follow-up with the patient
[2021-09-07] MEDS: APIXABAN 5 MG TAB PO SCH ×3 (08:28→20:33)
[2021-09-07] MEDS: PANTOPRAZOLE 40 MG/10 ML VIAL IVP SCH (08:28)
[2021-09-07] MEDS: AMIODARONE 200 MG TAB PO SCH ×2 (08:28→20:33)
[2021-09-07] MEDS: DILTIAZEM ORAL 30 MG TAB PO SCH ×4 (08:28→22:18)
[2021-09-07] MEDS: FLUCONAZOLE 100 MG TAB PO SCH (08:30)
[2021-09-07] MEDS: SYMBICORT 160-4.5 MCG INHALER INHALATION SCH ×2 (09:18→19:02)
[2021-09-07] MEDS: IPRATROPIUM-ALBUTEROL 3 ML NEB INHALATION SCH ×4 (09:18→19:01)
--- NOTE | 2021-09-07 10:14 | P.PN ---
Subjective Progress Note Date: 09/07/21 Principal diagnosis: Urinary tract infection/sepsis. Patient was reevaluated today on 09/05/21, remains in the ICU, patient tolerated extubation well for the last 2 days, she is on 4 L nasal cannula with O2 sats of 99%. Patient is also off BiPAP, she was on 12/30%. She is on enteral feeding via PEG tube receiving vital AF at 53 mL per hour. Patient is a bit edematous and swollen, hence Lasix will be given today 20 mg IV push times one. Her urine output is marginal 10-50 mL per hour. Patient is awake, she follows simple instructions, she is presently confused otherwise. WBC count is 8.2 hemoglobin is 9.4 lites are normal renal profile is normal. Reevaluated today on 09/06/21, patient remains in the ICU, she is presently on, relatively asymptomatic, and in no distress. Patient is awake, follows simple instructions, and no major issues noted over the last 24 hours. Hence I plan to transfer the patient likely today to a monitor bed on [facility]. WBC count is 5.8 hemoglobin is 9. Electrolytes are normal renal profile is normal. Patient remains on amiodarone 400 mg twice a day she is also on eliquis 5 twice a day she is on daptomycin as per infectious disease on the case, and she is also on Zosyn. Chest x-ray showed mostly atelectasis, possible aspiration pneumonia. Progress note dated 09/07/2021. The patient is seen today in the intensive care unit, room 258. She was admitted way back on August 11. She's currently on room air. She's getting saline at KVO. She's getting vital AF 1.2 at 33 mL an hour which is goal. The patient was admitted with a diagnosis of elevated troponins, urinary tract infection, and sepsis. She was intubated for about 2-1/2 days between September 02, and extubated on September 04. The patient could be transferred out to the cardiac floor. Current laboratory data includes a white count 4.4, hemoglobin 8.9, hematocrit 28.8, and platelet count 38,000. Sodium is 136, potassium 1, chlorides 111, CO2 25, BUN 15, creatinine 0.34. AST is 50 ALT of 93. Albumin 1.9. Laboratory data shows a sputum positive for Pseudomonas, 27, and a blood culture positive for enterococcus species on August 26, and a urine was positive for Escherichia coli, on August 11. She is currently on daptomycin and Zosyn. Chest x-ray shows cardiomegaly, with small bilateral pleural effusions. Objective - Vital Signs Vital signs: Vital Signs Temp 98.7 F 09/07/21 04:00 Pulse 108 H 09/07/21 09:33 Resp 26 H 09/07/21 04:00 BP 116/65 09/07/21 04:00 Pulse Ox 94 L 09/07/21 04:00 FiO2 30 09/05/21 04:18 Intake & Output 09/06/21 09/07/21 09/07/21 18:59 06:59 18:59 Intake Total 219 166 Output Total 425 650 Balance -206 -484 Intake: IV 60 40 Sodium Chloride 0.9% 1, 60 40 000 ml @ 20 mls/hr IV . Q24H [facility] Rx#:[id number] Tube Feeding 99 66 Other 60 60 Output: Urine 425 650 Other: Voiding Method Indwelling Catheter Indwelling Catheter ABP, PAP, CO, CI - Last Documented Arterial Blood Pressure 123/61 - Exam No acute distress, oriented 3. Currently on room air. No respiratory distress or difficulty. HEENT examination is grossly unremarkable. Neck supple. Full range of motion. No adenopathy thyromegaly or neck vein distention. Cardiovascular examination reveals regular rhythm rate. S1-S2 normal. No S3 or S4. No discernible murmur noted. Heart sounds distant. Heart rate 100 bpm. Lungs reveal mostly clear breath sounds. Breath sounds are equal bilaterally. Scattered mild rhonchi without wheezes or crackles appreciated. Abdomen soft bowel sounds are heard. No tenderness. PEG tube noted. Extremities are intact. No cyanosis clubbing or edema. Skin is without rash or lesion. Neurologic examination is brief but nonfocal. - Labs CBC & Chem 7: 09/07/21 05:28 09/07/21 05:28 Labs: Abnormal Lab Results - Last 24 Hours (Table) 09/06/21 09/06/21 09/07/21 Range/Units 22:28 23:12 05:28 RBC 2.64 L (3.80-5.40) m/uL Hgb 8.9 L (11.4-16.0) gm/dL Hct 28.8 L (34.0-46.0) % MCV 109.2 H (80.0-100.0) fL RDW 17.9 H (11.5-15.5) % Plt Count 38 L (150-450) k/uL Lymphocytes # 0.3 L (1.0-4.8) k/uL Macrocytosis Marked A Sodium (137-145) mmol/L Potassium 3.4 L (3.5-5.1) mmol/L Chloride (98-107) mmol/L Creatinine (0.52-1.04) mg/dL POC Glucose (mg/dL) 112 H (70-110) mg/dL Calcium (8.4-10.2) mg/dL AST (14-36) U/L ALT (4-34) U/L Total Protein (6.3-8.2) g/dL Albumin (3.5-5.0) g/dL 09/07/21 Range/Units 05:28 RBC (3.80-5.40) m/uL Hgb (11.4-16.0) gm/dL Hct (34.0-46.0) % MCV (80.0-100.0) fL RDW (11.5-15.5) % Plt Count (150-450) k/uL Lymphocytes # (1.0-4.8) k/uL Macrocytosis Sodium 136 L (137-145) mmol/L Potassium (3.5-5.1) mmol/L Chloride 111 H (98-107) mmol/L Creatinine 0.34 L (0.52-1.04) mg/dL POC Glucose (mg/dL) (70-110) mg/dL Calcium 7.4 L (8.4-10.2) mg/dL AST 50 H (14-36) U/L ALT 93 H (4-34) U/L Total Protein 3.7 L (6.3-8.2) g/dL Albumin 1.9 L (3.5-5.0) g/dL Microbiology - Last 24 Hours (Table) 09/01/21 19:42 Blood Culture - Preliminary Blood No Growth after 120 hours 09/02/21 12:03 Blood Culture - Preliminary Blood No Growth after 96 hours Assessment and Plan Assessment: Acute hypoxemic respiratory failure secondary to sepsis, status post intubation on September 02, and extubation on September 04. Acute blood loss anemia secondary to bleeding PEG tube site. Failure to thrive. Urinary tract infection. History of dementia. Chronic atrial fibrillation. Acute kidney injury. Normal pressure hydrocephalus. History of hypertension. Plan: Plan dated 09/07/2021 The patient could be transferred out of the intensive care unit, to the cardiac floor. The patient will continue on tube feedings. Labs, x-rays, and medications are reviewed. The patient is not manifesting any respiratory distress. The patient's overall prognosis is guarded. She remains on antibiotics in the form of daptomycin and Zosyn. The patient's care can be taken over by Dr. Mcbride, who typically sees this patient. Time with Patient: Less than 30
[2021-09-07 11:44] VITALS: BMI 25.8
[2021-09-07 12:10] LABS: Glucose,Whole Blood 113 mg/dL (70-110)
[2021-09-07] MEDS: NOREPINEPHRINE 32 MG in SODIUM CHLORIDE 0.9% 218 ML IV SCH (12:18)
[2021-09-07] MEDS: FUROSEMIDE 10 MG/ML 2 ML VIAL IV SCH (12:21)
--- NOTE | 2021-09-07 12:47 | P.PN ---
Subjective Progress Note Date: 09/07/21 CHIEF COMPLAINT: Protein malnutrition HISTORY OF PRESENT ILLNESS: Patient is status post PEG tube placement on 09/01/2021. She is currently in the ICU but is downgraded. She probably had some bleeding around the PEG tube site on this has stopped. She is tolerating tube feeds at 33 mL per hour which is her goal rate. She denies any abdominal pain. Patient did have a low-grade temp of 100.6 yesterday heart rate 105 WBC 4.4 Hgb 8.9 Patient seen and examined with Dr. Bernstein PHYSICAL EXAM: VITAL SIGNS: Reviewed. GENERAL: Well-developed in no acute distress. HEENT: No sclera icterus. Extraocular movements grossly intact. Moist buccal mucosa. Head is atraumatic, normocephalic. ABDOMEN: Soft. Nondistended. Nontender. PEG tube site with some dried blood and otherwise clean dry and intact NEUROLOGIC: Alert and oriented. Cranial nerves II through XII grossly intact. ASSESSMENT: 1. Moderate to severe protein calorie malnutrition 2. Hypoxic respiratory failure 3. Atrial fibrillation on chronic anticoagulation 4. Dementia PLAN: -Continue tube feeds -Continue supportive care Physician Light Rail Vehicle Operator note has been reviewed by physician. Signing provider agrees with the documented findings, assessment, and plan of care. Objective - Vital Signs Vital signs: Vital Signs Temp 98.7 F 09/07/21 04:00 Pulse 105 H 09/07/21 12:04 Resp 26 H 09/07/21 04:00 BP 116/65 09/07/21 04:00 Pulse Ox 94 L 09/07/21 04:00 FiO2 30 09/05/21 04:18 Intake & Output 09/06/21 09/07/21 09/07/21 18:59 06:59 18:59 Intake Total 219 166 Output Total 425 650 Balance -206 -484 Weight 72.6 kg Intake: IV 60 40 Sodium Chloride 0.9% 1, 60 40 000 ml @ 20 mls/hr IV . Q24H [facility] Rx#:[id number] Tube Feeding 99 66 Other 60 60 Output: Urine 425 650 Other: Voiding Method Indwelling Catheter Indwelling Catheter ABP, PAP, CO, CI - Last Documented Arterial Blood Pressure 123/61 - Labs CBC & Chem 7: 09/07/21 05:28 09/07/21 05:28 Labs: Abnormal Lab Results - Last 24 Hours (Table) 09/06/21 09/06/21 09/07/21 Range/Units 22:28 23:12 05:28 RBC 2.64 L (3.80-5.40) m/uL Hgb 8.9 L (11.4-16.0) gm/dL Hct 28.8 L (34.0-46.0) % MCV 109.2 H (80.0-100.0) fL RDW 17.9 H (11.5-15.5) % Plt Count 38 L (150-450) k/uL Lymphocytes # 0.3 L (1.0-4.8) k/uL Macrocytosis Marked A Sodium (137-145) mmol/L Potassium 3.4 L (3.5-5.1) mmol/L Chloride (98-107) mmol/L Creatinine (0.52-1.04) mg/dL POC Glucose (mg/dL) 112 H (70-110) mg/dL Calcium (8.4-10.2) mg/dL AST (14-36) U/L ALT (4-34) U/L Total Protein (6.3-8.2) g/dL Albumin (3.5-5.0) g/dL 09/07/21 09/07/21 Range/Units 05:28 12:09 RBC (3.80-5.40) m/uL Hgb (11.4-16.0) gm/dL Hct (34.0-46.0) % MCV (80.0-100.0) fL RDW (11.5-15.5) % Plt Count (150-450) k/uL Lymphocytes # (1.0-4.8) k/uL Macrocytosis Sodium 136 L (137-145) mmol/L Potassium (3.5-5.1) mmol/L Chloride 111 H (98-107) mmol/L Creatinine 0.34 L (0.52-1.04) mg/dL POC Glucose (mg/dL) 113 H (70-110) mg/dL Calcium 7.4 L (8.4-10.2) mg/dL AST 50 H (14-36) U/L ALT 93 H (4-34) U/L Total Protein 3.7 L (6.3-8.2) g/dL Albumin 1.9 L (3.5-5.0) g/dL Microbiology - Last 24 Hours (Table) 09/01/21 19:42 Blood Culture - Preliminary Blood No Growth after 120 hours 09/02/21 12:03 Blood Culture - Preliminary Blood No Growth after 96 hours
[2021-09-07] MEDS: KETOTIFEN 0.025% OPHTH DROPS 5 ML BTL BOTH EYES SCH ×2 (14:03→20:34)
[2021-09-07] MEDS: amLODIPine 5 MG TAB PO SCH (15:39)
[2021-09-07] MEDS: METOPROLOL TARTRATE 50 MG TAB PO SCH (15:40)
[2021-09-07] MEDS: MEGESTROL 400 MG/10 ML CUP PO SCH (15:40)
[2021-09-07] MEDS: CHLORHEXIDINE GLUCONATE 15 ML CUP MUCOUS MEM SCH (15:41)
--- NOTE | 2021-09-07 17:07 | P.PN ---
Progress Note - Text Progress Note Date: 09/07/21 Interval history: I'm rounding for Dr. Lalo Nguyen September 04: ICU: Extubated earlier today. Currently on BiPAP. Lethargic. Sitting of 12/6/30%. PEG tube feeding. Following commands. Edema present. Sinus rhythm with PACs. September 05: ICU: Able to carry out simple conversation. On nasal cannula. Went back into A. fib last night with rapid ventricular rate. PVCs. PEG tube feeding at 30 mL an hour. September 06: ICU: Carrying out simple conversation. Sinus rhythm. PEG tube feeding. September 07: ICU: Patient laying in bed. Awake. Answering simple questions. Tube feeding at 33 mL an hour that is at goal. On IV Lasix. Telemetry sinus rhythm. Beta for congested cough. Active Medications Acetaminophen (Acetaminophen Tab 325 Mg Tab) 650 mg PO Q6HR PRN PRN Reason: Mild Pain or Fever > 100.5 Last Admin: 09/06/21 20:55 Dose: 650 mg Albuterol/Ipratropium (Ipratropium-Albuterol 3 Ml Neb) 3 ml INHALATION RT-Q2H PRN PRN Reason: Shortness Of Breath Or Wheezing Albuterol/Ipratropium (Ipratropium-Albuterol 3 Ml Neb) 3 ml INHALATION RT-QID [facility] Last Admin: 09/07/21 15:04 Dose: 3 ml Amiodarone HCl (Amiodarone 200 Mg Tab) 400 mg PO BID [facility] Last Admin: 09/07/21 08:28 Dose: 400 mg Apixaban (Apixaban 5 Mg Tab) 5 mg PO BID [facility]; Protocol Last Admin: 09/07/21 08:28 Dose: 5 mg Budesonide/Formoterol Fumarate (Symbicort 160-4.5 Mcg Inhaler) 2 puff INHALATION RT-BID [facility] Last Admin: 09/07/21 09:18 Dose: 2 puff Diltiazem HCl (Diltiazem Oral 30 Mg Tab) 30 mg PO QID [facility] Last Admin: 09/07/21 12:20 Dose: 30 mg Fluconazole (Fluconazole 100 Mg Tab) 100 mg PO DAILY [facility]; Protocol Last Admin: 09/07/21 08:30 Dose: 100 mg Furosemide (Furosemide 10 Mg/Ml 2 Ml Vial) 20 mg IV DAILY [facility] Last Admin: 09/07/21 12:21 Dose: 20 mg Norepinephrine Bitartrate 32 (mg/ Sodium Chloride) 250 mls @ 1.512 mls/hr IV .Q24H [facility]; Protocol Last Admin: 09/07/21 12:18 Dose: Not Given Sodium Chloride (Saline 0.9%) 1,000 mls @ 20 mls/hr IV .Q24H [facility] Last Admin: 09/07/21 06:32 Dose: 20 mls/hr Daptomycin 390 mg/ Sodium (Chloride) 50 mls @ 100 mls/hr IVPB Q24H [facility]; Protocol Last Admin: 09/07/21 00:25 Dose: 100 mls/hr Piperacillin Sod/Tazobactam (Sod 3.375 gm/ Sodium Chloride) 100 mls @ 25 mls/hr IVPB Q8H [facility]; Protocol Last Admin: 09/07/21 05:17 Dose: 25 mls/hr Insulin Aspart (Insulin Aspart (Novolog) 100 Unit/Ml Vial) 0 unit SQ Q6HR [facility]; Protocol Last Admin: 09/07/21 12:18 Dose: Not Given Ketotifen Fumarate (Ketotifen 0.025% Ophth Drops 5 Ml Btl) 2 drops BOTH EYES BID [facility] Last Admin: 09/07/21 14:03 Dose: Not Given Miscellaneous Information (Potassium Replacement Protocol 1 Each Misc) 1 each MISCELLANE DAILY [facility]; Protocol PRN Reason: Per Protocol Montelukast Sodium (Montelukast 10 Mg Tab) 10 mg PO HS [facility] Last Admin: 09/06/21 21:48 Dose: 10 mg Naloxone HCl (Naloxone 0.4 Mg/Ml 1 Ml Vial) 0.2 mg IV Q2M PRN PRN Reason: Opioid Reversal Pantoprazole Sodium (Pantoprazole 40 Mg/10 Ml Vial) 40 mg IVP DAILY [facility] Last Admin: 09/07/21 08:28 Dose: 40 mg On examination: VITAL SIGNS: 98.6, 107, 24, 140s/67, 96% room air GENERAL APPEARANCE: Laying in bed, awake, answering simple questions EYES: Pupils equal. Conjunctiva normal. NECK: JVD unable to assess. Mass not palpable. RESPIRATORY: Respiratory effort increased. Lungs decreased breath sounds. CARDIOVASCULAR: First and second sounds normal. No edema. ABDOMEN: Soft. Liver and spleen not palpable. No tenderness. No mass palpable. Psychiatry: Answering simple questions. Neurological: Cranial nerves grossly intact. Following simple commands. INVESTIGATIONS, reviewed in the clinical context: September 07: WBC 4.4 hemoglobin 8.9 platelets 38 potassium 4.1 creatinine 0.34 albumin 1.9 September 05: White count 8.2 hemoglobin 9.4 platelets 45 potassium 4.3 BUN 20 creatinine 0.48 AST 55 ALT 119 White count 10.9 hemoglobin 9 platelets 49 sodium 140 potassium 3 BUN 28 creatinine 0.61 AST 55 ALT 136 Assessment and plan: -Paroxysmal atrial fibrillation currently in sinus rhythm Eliquis 5 mg twice a day. Cordarone. Cardizem by mouth -Sepsis IV Zosyn -Septic shock: Recovered Patient received levo fed -Acute kidney injury secondary to hemodynamic ATN.: Improved Creatinine had peaked at 1.31. -Moderate persistent Asthma, exacerbation Symbicort 160/4.52 puffs twice a day DuoNeb -Mild cognitive impairment from early dementia -Hyperlipidemia -Acute blood loss anemia secondary to bleeding at PEG tube site -Essential hypertension Currently off antihypertensive -Nephrolithiasis, asymptomatic -Primary osteoarthritis Pain control as needed -Chronic gait dysfunction uses a walker Fall precautions -Thrombocytopenia, likely from underlying infection. Patient is on eliquis. Follow CBC -Acute medical debility -Full code IV Zosyn. Follow CBC. oral toilet requested. Other medications to continue.
[2021-09-07 18:00] LABS: Glucose,Whole Blood 110 mg/dL (70-110)
[2021-09-07] MEDS: ACETAMINOPHEN TAB 325 MG TAB PO PRN (18:33)
[2021-09-07] MEDS: MONTELUKAST 10 MG TAB PO SCH (20:33)
--- NOTE | 2021-09-07 22:02 | P.PN ---
Subjective Progress Note Date: 09/06/21 Principal diagnosis: Leukocytosis and bacteremia Patient is a 75-year-old -Serbian female initially presented to hospital on 08/11/2021 for increasing weakness slurred speech with concern for possible CVA patient did have Enterococcus faecalis bacteremia Patient UA was negative. CT Abdominal pelvis didn't mention any abnormality echocardiogram negative for any vegetation subsequently did have a PEG tube placement for decreased by mouth intake afterwards worsening status requiring transfer to the next few for the patient was intubated and now has been successfully extubated On today's evaluation that is 09/06/2021, the patient did have a low-grade fever of 100.6 F, patient is breathing comfortably on nasal cannula oxygen the patient remains to be lethargic and unable to provide any history no vomiting or diarrhea was reported by the nursing staff Objective - Vital Signs Vital signs: Vital Signs Temp 100.6 F H 09/06/21 15:35 Pulse 114 H 09/06/21 16:06 Resp 22 09/06/21 15:35 BP 115/72 09/06/21 15:35 Pulse Ox 95 09/06/21 08:00 FiO2 30 09/05/21 04:18 Intake & Output 09/05/21 09/06/21 09/06/21 18:59 06:59 18:59 Intake Total 733 929 219 Output Total 1965 685 425 Balance -1232 244 -206 Weight 72.6 kg Intake: IV 280 260 60 Piperacillin-Tazobactam 3 100 .375 gm In Sodium Chloride 0.9% 100 ml @ 25 mls/hr IVPB Q8H [facility] Rx#: [id number] Sodium Chloride 0.9% 1, 180 260 60 000 ml @ 20 mls/hr IV . Q24H [facility] Rx#:[id number] Intake, IV Titration 150 Amount DAPTOmycin 390 mg In 50 Sodium Chloride 0.9% 50 ml @ 100 mls/hr IVPB Q24H [facility] Rx#:[id number] Piperacillin-Tazobactam 3 100 .375 gm In Sodium Chloride 0.9% 100 ml @ 25 mls/hr IVPB Q8H [facility] Rx#: [id number] Tube Feeding 360 429 99 Other 93 90 60 Output: Urine 1964 241 481 Other: Voiding Method Indwelling Catheter Indwelling Catheter Indwelling Catheter ABP, PAP, CO, CI - Last Documented Arterial Blood Pressure 123/61 - Exam GENERAL DESCRIPTION: Elderly female lying in bed on BiPAP LUNGS: Unlabored breathing. Decreased breath sound the base HEART: S1, S2, regular rate and rhythm. ABDOMEN: Soft, no tenderness , guarding or rigidity, no organomegaly EXTREMITIES: No edema of feet. - Labs CBC & Chem 7: 09/07/21 05:28 09/07/21 05:28 Labs: Abnormal Lab Results - Last 24 Hours (Table) 09/05/21 09/06/21 09/06/21 Range/Units 18:08 04:00 04:00 RBC 2.67 L (3.80-5.40) m/uL Hgb 9.0 L (11.4-16.0) gm/dL Hct 28.9 L (34.0-46.0) % MCV 108.1 H (80.0-100.0) fL RDW 18.4 H (11.5-15.5) % Plt Count 39 L (150-450) k/uL Lymphocytes # 0.3 L (1.0-4.8) k/uL Macrocytosis Marked A Chloride 108 H (98-107) mmol/L Creatinine 0.42 L (0.52-1.04) mg/dL Glucose 116 H (74-99) mg/dL POC Glucose (mg/dL) 116 H (70-110) mg/dL Calcium 7.7 L (8.4-10.2) mg/dL AST 60 H (14-36) U/L ALT 105 H (4-34) U/L Total Protein 3.6 L (6.3-8.2) g/dL Albumin 2.0 L (3.5-5.0) g/dL 09/06/21 Range/Units 05:05 RBC (3.80-5.40) m/uL Hgb (11.4-16.0) gm/dL Hct (34.0-46.0) % MCV (80.0-100.0) fL RDW (11.5-15.5) % Plt Count (150-450) k/uL Lymphocytes # (1.0-4.8) k/uL Macrocytosis Chloride (98-107) mmol/L Creatinine (0.52-1.04) mg/dL Glucose (74-99) mg/dL POC Glucose (mg/dL) 135 H (70-110) mg/dL Calcium (8.4-10.2) mg/dL AST (14-36) U/L ALT (4-34) U/L Total Protein (6.3-8.2) g/dL Albumin (3.5-5.0) g/dL Microbiology - Last 24 Hours (Table) 09/02/21 12:03 Blood Culture - Preliminary Blood No Growth after 96 hours 09/01/21 19:42 Blood Culture - Preliminary Blood No Growth after 96 hours Assessment and Plan (1) Leukocytosis Current Visit: Yes Status: Acute Code(s): D72.829 - ELEVATED WHITE BLOOD CELL COUNT, UNSPECIFIED SNOMED Code(s): 329911581 (2) Bacteremia Current Visit: Yes Status: Acute Code(s): R78.81 - BACTEREMIA SNOMED Code(s): 8844215 Plan: 1patient with Enterococcus bacteremia which usually of gut or urinary source however the UA on 08/26/2020 was negative, blood cultures repeated so far negative, CT abdominal pelvis did not show any acute abnormality, echocardiogram did not show any vegetation possible transient bacteremia from either GI or urinary source, patient is covered with a daptomycin to continue to finish a two-week course of therapy 2- patient subsequently did have worsening of her clinical condition and drop in hemoglobin questionably from the PEG tube site, patient Eliquis has been put on hold, blood and sputum culture has been obtained, blood cultures and repeat are negative sputum is growing Pseudomonas that is a sensitive to pathogen for which the patient is covered with the Zosyn which will be continued Time with Patient: Less than 30
--- NOTE | 2021-09-07 22:04 | P.PN ---
Subjective Progress Note Date: 09/07/21 Principal diagnosis: Leukocytosis and bacteremia Patient is a 75-year-old -Hungarian female initially presented to hospital on 08/11/2021 for increasing weakness slurred speech with concern for possible CVA patient did have Enterococcus faecalis bacteremia Patient UA was negative. CT Abdominal pelvis didn't mention any abnormality echocardiogram negative for any vegetation subsequently did have a PEG tube placement for decreased by mouth intake afterwards worsening status requiring transfer to the next few for the patient was intubated and now has been successfully extubated On today's evaluation that is at 09/07/2021, the patient is afebrile this morning, patient is breathing comfortably on room air the patient remains to be lethargic and did not answer any question no vomiting or diarrhea was reported by the nursing staff Objective - Vital Signs Vital signs: Vital Signs Temp 98.7 F 09/07/21 04:00 Pulse 105 H 09/07/21 12:04 Resp 26 H 09/07/21 04:00 BP 116/65 09/07/21 04:00 Pulse Ox 94 L 09/07/21 04:00 FiO2 30 09/05/21 04:18 Intake & Output 09/06/21 09/07/21 09/07/21 18:59 06:59 18:59 Intake Total 219 166 Output Total 425 650 Balance -206 -484 Weight 72.6 kg Intake: IV 60 40 Sodium Chloride 0.9% 1, 60 40 000 ml @ 20 mls/hr IV . Q24H [facility] Rx#:[id number] Tube Feeding 99 66 Other 60 60 Output: Urine 425 650 Other: Voiding Method Indwelling Catheter Indwelling Catheter ABP, PAP, CO, CI - Last Documented Arterial Blood Pressure 123/61 - Exam GENERAL DESCRIPTION: Elderly female lying in bed in no distress LUNGS: Unlabored breathing. Decreased breath sound the base HEART: S1, S2, regular rate and rhythm. ABDOMEN: Soft, no tenderness , guarding or rigidity, no organomegaly EXTREMITIES: No edema of feet. - Labs CBC & Chem 7: 09/07/21 05:28 09/07/21 05:28 Labs: Abnormal Lab Results - Last 24 Hours (Table) 09/06/21 09/06/21 09/07/21 Range/Units 22:28 23:12 05:28 RBC 2.64 L (3.80-5.40) m/uL Hgb 8.9 L (11.4-16.0) gm/dL Hct 28.8 L (34.0-46.0) % MCV 109.2 H (80.0-100.0) fL RDW 17.9 H (11.5-15.5) % Plt Count 38 L (150-450) k/uL Lymphocytes # 0.3 L (1.0-4.8) k/uL Macrocytosis Marked A Sodium (137-145) mmol/L Potassium 3.4 L (3.5-5.1) mmol/L Chloride (98-107) mmol/L Creatinine (0.52-1.04) mg/dL POC Glucose (mg/dL) 112 H (70-110) mg/dL Calcium (8.4-10.2) mg/dL AST (14-36) U/L ALT (4-34) U/L Total Protein (6.3-8.2) g/dL Albumin (3.5-5.0) g/dL 09/07/21 09/07/21 Range/Units 05:28 12:09 RBC (3.80-5.40) m/uL Hgb (11.4-16.0) gm/dL Hct (34.0-46.0) % MCV (80.0-100.0) fL RDW (11.5-15.5) % Plt Count (150-450) k/uL Lymphocytes # (1.0-4.8) k/uL Macrocytosis Sodium 136 L (137-145) mmol/L Potassium (3.5-5.1) mmol/L Chloride 111 H (98-107) mmol/L Creatinine 0.34 L (0.52-1.04) mg/dL POC Glucose (mg/dL) 113 H (70-110) mg/dL Calcium 7.4 L (8.4-10.2) mg/dL AST 50 H (14-36) U/L ALT 93 H (4-34) U/L Total Protein 3.7 L (6.3-8.2) g/dL Albumin 1.9 L (3.5-5.0) g/dL Microbiology - Last 24 Hours (Table) 09/01/21 19:42 Blood Culture - Preliminary Blood No Growth after 120 hours 09/02/21 12:03 Blood Culture - Preliminary Blood No Growth after 96 hours Assessment and Plan (1) Leukocytosis Current Visit: Yes Status: Acute Code(s): D72.829 - ELEVATED WHITE BLOOD CELL COUNT, UNSPECIFIED SNOMED Code(s): 949866021 (2) Bacteremia Current Visit: Yes Status: Acute Code(s): R78.81 - BACTEREMIA SNOMED Code(s): 2912676 Plan: 1patient with Enterococcus bacteremia which usually of gut or urinary source however the UA on 08/26/2020 was negative, blood cultures repeated so far negative, CT abdominal pelvis did not show any acute abnormality, echocardiogram did not show any vegetation possible transient bacteremia from either GI or urinary source, patient cleared her bacteremia quickly, patient is covered with a daptomycin to continue to finish a two-week course of therapy 2- patient with episode of acute respiratory failure requiring intubation and question of aspiration pneumonia sputum has been positive for pseudomonas with the patient is covered with Zosyn to continue patient is running a low-grade fever however white count has been normal cultures will be repeated and followed Time with Patient: Less than 30
[2021-09-07 23:41] LABS: Appearance,Urine Clear (Clear); Bilirubin,Urine Negative (Negative); Blood,Urine Large (Negative); Color,Urine Yellow; Glucose,Urine (UA) Negative (Negative); Ketones,Urine Negative (Negative); Leukocyte Esterase,Urine Negative (Negative); Mucus,Urine Rare /hpf; Nitrite,Urine Negative (Negative); Protein,Urine 1+ (Negative); RBC,Urine 2 /hpf (0-5); Specific Gravity,Urine 1.021 (1.001-1.035); Squamous Epithelial Cell,Urine <1 /hpf (0-4); WBC,Urine 3 /hpf (0-5)
[2021-09-08 00:10] LABS: Glucose,Whole Blood 120 mg/dL (70-110)
[2021-09-08] MEDS: INSULIN ASPART (NovoLOG) 100 UNIT/ML VIAL SQ SCH ×4 (00:27→18:09)
[2021-09-08 06:04] LABS: Glucose,Whole Blood 118 mg/dL (70-110)
[2021-09-08] MEDS: PIPERACILLIN-TAZOBACTAM 3.375 GM in SODIUM CHLORIDE 0.9% 100 ML IVPB SCH ×3 (06:17→22:28)
[2021-09-08 08:30] LABS: ALT 84 U/L (4-34); AST 42 U/L (14-36); African American GFR (CKD) >90 (>60 ml/min/1.73 sqM); Alkaline Phosphatase 103 U/L (38-126); Anion Gap 5 mmol/L; Blood Urea Nitrogen 15 mg/dL (7-17); Calcium 7.9 mg/dL (8.4-10.2); Carbon Dioxide 24 mmol/L (22-30); Chloride 108 mmol/L (98-107); Glucose 89 mg/dL (74-99); Non-African American GFR(CKD) >90 (>60 ml/min/1.73 sqM); Potassium 3.7 mmol/L (3.5-5.1); Sodium 137 mmol/L (137-145); Total Bilirubin 0.8 mg/dL (0.2-1.3); Total Protein 3.8 g/dL (6.3-8.2)
[2021-09-08] MEDS: FLUCONAZOLE 100 MG TAB PO SCH (08:35)
[2021-09-08] MEDS: DILTIAZEM ORAL 30 MG TAB PO SCH ×3 (08:35→19:49)
[2021-09-08] MEDS: FUROSEMIDE 10 MG/ML 2 ML VIAL IV SCH (08:35)
[2021-09-08] MEDS: PANTOPRAZOLE 40 MG/10 ML VIAL IVP SCH (08:35)
[2021-09-08] MEDS: SODIUM CHLORIDE 0.9% 1,000 ML IV SCH (08:36)
[2021-09-08] MEDS: KETOTIFEN 0.025% OPHTH DROPS 5 ML BTL BOTH EYES SCH ×2 (08:36→21:01)
[2021-09-08] MEDS: APIXABAN 5 MG TAB PO SCH ×2 (08:36→21:02)
[2021-09-08] MEDS: AMIODARONE 200 MG TAB PO SCH ×2 (08:36→21:01)
[2021-09-08 09:20] LABS: Anisocytosis Slight; Basophils % (A) 0 %; Eosinophils % (A) 1 %; Hypochromasia Marked; Lymphocytes # (A) 0.4 k/uL (1.0-4.8); Lymphocytes % (A) 10 %; MCH 33.2 pg (25.0-35.0); MCHC 29.9 g/dL (31.0-37.0); MCV 111.3 fL (80.0-100.0); Macrocytosis Marked; Mean Platelet Volume 11.2; Monocytes # (A) 0.1 k/uL (0-1.0); Monocytes % (A) 1 %; Neutrophils # (A) 3.7 k/uL (1.3-7.7); Neutrophils % (A) 86 %; RDW 18.1 % (11.5-15.5); WBC 4.2 k/uL (3.8-10.6)
[2021-09-08] MEDS: IPRATROPIUM-ALBUTEROL 3 ML NEB INHALATION SCH ×4 (09:21→19:35)
[2021-09-08 09:24] LABS: C Reactive Protein 33.7 mg/dL (<1.0)
[2021-09-08 09:26] LABS: Platelet Count 54 k/uL (150-450)
--- NOTE | 2021-09-08 11:47 | P.PN ---
Subjective This is a pleasant 75-year-old with past medical history significant for advanced dementia, postural hypotension, chronic kidney disease, hypertension, paroxysmal atrial fibrillation on Eliquis, Bronchitis. She used to follow in the office with Dr. Smart. We are being consulted for elevated troponin. Patient is a poor historian unable to state why she came to the hospital. 08/26/2021- Cardiology was asked to evaluate patient secondary to atrial fibrillation with RVR. The patient went into A. fib with RVR. She was started on IV Cardizem which was then discontinued On 09/02/2021, rapid response was called secondary to patient becoming unresponsive, short of breath, A fib with RVR. Patient was transferred to the ICU and was intubated. She was eventually extubated and transferred to on 09/07/21. 09/08/2021 Patient seen and examined at bedside, she is lethargic, not answering questions appropriately. Unable to state how she is feeling. She is in no distress. She does have advanced dementia and she is very poor historian. She appears to be in and out of sinus with PACs and atrial fibrillation with RVR. Meds: Amiodarone 400 mg twice a day, Cardizem 30 mg every 8 hours, IV Lasix 20 mg daily PHYSICAL EXAM: VITAL SIGNS: Reviewed. GENERAL: In no acute distress. Generalized edema NECK: Supple. No JVD or thyromegaly LUNGS: Respirations even and unlabored. Lungs essentially clear to auscultation bilaterally. HEART: Irregular tachycardic rate and rhythm. S1 and S2 heard. EXTREMITIES: Normal range of motion. No clubbing or cyanosis. Peripheral pulses intact. 3+ bilateral extremity edema ASSESSMENT: Paroxysmal atrial fibrillation with RVR Sepsis with enterococcus bacteremia Acute on chronic diastolic heart failure, exacerbated by severe protein calorie malnutrition Acute kidney injury, improved Urinary tract infection Leukocytosis Elevated troponin, likely related to acute kidney injury Dementia Altered mental status History asthma/COPD History of Hypertension History of postural hypotension Chronic kidney disease Status post PEG tube placement Severe protein calorie malnutrition PLAN: Continue Lasix IV Monitor kidney function and electrolytes Continue Amiodarone 400mg BID (started on 09/04) Continue Cardizem Restart patient's beta gabriel, BP has been stable. Eliquis remains on hold secondary to bleeding around PEG tube site, restart when ok per surgery Continue telemetry monitoring Further recommendations based on clinical course Nurse practitioner note has been reviewed by physician. Signing provider agrees with the documented findings, assessment, and plan of care. Objective - Vital Signs Vital signs: Vital Signs Temp 99.7 F H 09/08/21 08:00 Pulse 124 H 09/08/21 08:00 Resp 20 09/08/21 08:00 BP 115/75 09/08/21 08:00 Pulse Ox 92 L 09/08/21 08:00 FiO2 30 09/05/21 04:18 Intake & Output 09/07/21 09/08/21 09/08/21 18:59 06:59 18:59 Intake Total 491 641 90 Output Total 700 380 250 Balance -209 261 -160 Weight 72.6 kg Intake: IV 140 Sodium Chloride 0.9% 1, 140 000 ml @ 20 mls/hr IV . Q24H [facility] Rx#:[id number] Tube Feeding 231 551 90 Other 120 90 Output: Urine 700 380 250 Other: Voiding Method Indwelling Catheter Indwelling Catheter Indwelling Catheter # Bowel Movements 1 1 ABP, PAP, CO, CI - Last Documented Arterial Blood Pressure 123/61 - Labs CBC & Chem 7: 09/08/21 07:30 09/08/21 07:30 Labs: Abnormal Lab Results - Last 24 Hours (Table) 09/07/21 09/07/21 09/07/21 Range/Units 12:09 14:00 23:20 RBC (3.80-5.40) m/uL Hgb (11.4-16.0) gm/dL Hct (34.0-46.0) % MCV (80.0-100.0) fL MCHC (31.0-37.0) g/dL RDW (11.5-15.5) % Plt Count (150-450) k/uL Lymphocytes # (1.0-4.8) k/uL Macrocytosis Chloride (98-107) mmol/L Creatinine (0.52-1.04) mg/dL POC Glucose (mg/dL) 113 H (70-110) mg/dL Calcium (8.4-10.2) mg/dL AST (14-36) U/L ALT (4-34) U/L C-Reactive Protein (<1.0) mg/dL Total Protein (6.3-8.2) g/dL Albumin (3.5-5.0) g/dL Urine Protein 1+ H (Negative) Urine Blood Large H (Negative) Urine Mucus Rare H (None) /hpf Stool Occult Blood Positive H (Negative) 09/08/21 09/08/21 09/08/21 Range/Units 00:07 06:03 07:30 RBC 2.70 L (3.80-5.40) m/uL Hgb 9.0 L (11.4-16.0) gm/dL Hct 30.0 L (34.0-46.0) % MCV 111.3 H (80.0-100.0) fL MCHC 29.9 L (31.0-37.0) g/dL RDW 18.1 H (11.5-15.5) % Plt Count 54 L (150-450) k/uL Lymphocytes # 0.4 L (1.0-4.8) k/uL Macrocytosis Marked A Chloride (98-107) mmol/L Creatinine (0.52-1.04) mg/dL POC Glucose (mg/dL) 120 H 118 H (70-110) mg/dL Calcium (8.4-10.2) mg/dL AST (14-36) U/L ALT (4-34) U/L C-Reactive Protein (<1.0) mg/dL Total Protein (6.3-8.2) g/dL Albumin (3.5-5.0) g/dL Urine Protein (Negative) Urine Blood (Negative) Urine Mucus (None) /hpf Stool Occult Blood (Negative) 09/08/21 Range/Units 07:30 RBC (3.80-5.40) m/uL Hgb (11.4-16.0) gm/dL Hct (34.0-46.0) % MCV (80.0-100.0) fL MCHC (31.0-37.0) g/dL RDW (11.5-15.5) % Plt Count (150-450) k/uL Lymphocytes # (1.0-4.8) k/uL Macrocytosis Chloride 108 H (98-107) mmol/L Creatinine 0.38 L (0.52-1.04) mg/dL POC Glucose (mg/dL) (70-110) mg/dL Calcium 7.9 L (8.4-10.2) mg/dL AST 42 H (14-36) U/L ALT 84 H (4-34) U/L C-Reactive Protein 33.7 H (<1.0) mg/dL Total Protein 3.8 L (6.3-8.2) g/dL Albumin 2.0 L (3.5-5.0) g/dL Urine Protein (Negative) Urine Blood (Negative) Urine Mucus (None) /hpf Stool Occult Blood (Negative) Microbiology - Last 24 Hours (Table) 09/01/21 19:42 Blood Culture - Final Blood No Growth after 144 hours 09/02/21 12:03 Blood Culture - Preliminary Blood No Growth after 120 hours
[2021-09-08 12:00] LABS: Glucose,Whole Blood 124 mg/dL (70-110)
--- NOTE | 2021-09-08 12:01 | P.PN ---
Subjective Progress Note Date: 09/08/21 CHIEF COMPLAINT: Protein malnutrition HISTORY OF PRESENT ILLNESS: Patient is status post PEG tube placement on 09/01/2021. Patient transferred out of the ICU to cardiac floor. She is tolerating her tube feeds at 45 mL per hour. Denies any abdominal pain. Denies any nausea vomiting. She is having bowel movements. Low-grade temp 99.7. Heart rate 124 WBC 4.2 Hgb 9.0 Patient seen and examined with Dr. Bernstein PHYSICAL EXAM: VITAL SIGNS: Reviewed. GENERAL: Well-developed in no acute distress. HEENT: No sclera icterus. Extraocular movements grossly intact. Moist buccal mucosa. Head is atraumatic, normocephalic. ABDOMEN: Soft. Nondistended. Nontender. PEG tube site no evidence of bleed ing. Site is clean dry and intact NEUROLOGIC: Alert and oriented. Cranial nerves II through XII grossly intact. ASSESSMENT: 1. Moderate to severe protein calorie malnutrition 2. Hypoxic respiratory failure 3. Atrial fibrillation on chronic anticoagulation 4. Dementia PLAN: -Continue tube feeds -Continue supportive care Physician Marketing Campaign Analyst note has been reviewed by physician. Signing provider agrees with the documented findings, assessment, and plan of care. Objective - Vital Signs Vital signs: Vital Signs Temp 99.7 F H 09/08/21 08:00 Pulse 124 H 09/08/21 08:00 Resp 20 09/08/21 08:00 BP 115/75 09/08/21 08:00 Pulse Ox 92 L 09/08/21 08:00 FiO2 30 09/05/21 04:18 Intake & Output 09/07/21 09/08/21 09/08/21 18:59 06:59 18:59 Intake Total 491 641 90 Output Total 700 380 250 Balance -209 261 -160 Weight 72.6 kg Intake: IV 140 Sodium Chloride 0.9% 1, 140 000 ml @ 20 mls/hr IV . Q24H [facility] Rx#:[id number] Tube Feeding 231 551 90 Other 120 90 Output: Urine 700 380 250 Other: Voiding Method Indwelling Catheter Indwelling Catheter Indwelling Catheter # Bowel Movements 1 1 ABP, PAP, CO, CI - Last Documented Arterial Blood Pressure 123/61 - Labs CBC & Chem 7: 09/08/21 07:30 09/08/21 07:30 Labs: Abnormal Lab Results - Last 24 Hours (Table) 09/07/21 09/07/21 09/07/21 Range/Units 12:09 14:00 23:20 RBC (3.80-5.40) m/uL Hgb (11.4-16.0) gm/dL Hct (34.0-46.0) % MCV (80.0-100.0) fL MCHC (31.0-37.0) g/dL RDW (11.5-15.5) % Plt Count (150-450) k/uL Lymphocytes # (1.0-4.8) k/uL Macrocytosis Chloride (98-107) mmol/L Creatinine (0.52-1.04) mg/dL POC Glucose (mg/dL) 113 H (70-110) mg/dL Calcium (8.4-10.2) mg/dL AST (14-36) U/L ALT (4-34) U/L C-Reactive Protein (<1.0) mg/dL Total Protein (6.3-8.2) g/dL Albumin (3.5-5.0) g/dL Urine Protein 1+ H (Negative) Urine Blood Large H (Negative) Urine Mucus Rare H (None) /hpf Stool Occult Blood Positive H (Negative) 09/08/21 09/08/21 09/08/21 Range/Units 00:07 06:03 07:30 RBC 2.70 L (3.80-5.40) m/uL Hgb 9.0 L (11.4-16.0) gm/dL Hct 30.0 L (34.0-46.0) % MCV 111.3 H (80.0-100.0) fL MCHC 29.9 L (31.0-37.0) g/dL RDW 18.1 H (11.5-15.5) % Plt Count 54 L (150-450) k/uL Lymphocytes # 0.4 L (1.0-4.8) k/uL Macrocytosis Marked A Chloride (98-107) mmol/L Creatinine (0.52-1.04) mg/dL POC Glucose (mg/dL) 120 H 118 H (70-110) mg/dL Calcium (8.4-10.2) mg/dL AST (14-36) U/L ALT (4-34) U/L C-Reactive Protein (<1.0) mg/dL Total Protein (6.3-8.2) g/dL Albumin (3.5-5.0) g/dL Urine Protein (Negative) Urine Blood (Negative) Urine Mucus (None) /hpf Stool Occult Blood (Negative) 09/08/21 Range/Units 07:30 RBC (3.80-5.40) m/uL Hgb (11.4-16.0) gm/dL Hct (34.0-46.0) % MCV (80.0-100.0) fL MCHC (31.0-37.0) g/dL RDW (11.5-15.5) % Plt Count (150-450) k/uL Lymphocytes # (1.0-4.8) k/uL Macrocytosis Chloride 108 H (98-107) mmol/L Creatinine 0.38 L (0.52-1.04) mg/dL POC Glucose (mg/dL) (70-110) mg/dL Calcium 7.9 L (8.4-10.2) mg/dL AST 42 H (14-36) U/L ALT 84 H (4-34) U/L C-Reactive Protein 33.7 H (<1.0) mg/dL Total Protein 3.8 L (6.3-8.2) g/dL Albumin 2.0 L (3.5-5.0) g/dL Urine Protein (Negative) Urine Blood (Negative) Urine Mucus (None) /hpf Stool Occult Blood (Negative) Microbiology - Last 24 Hours (Table) 09/01/21 19:42 Blood Culture - Final Blood No Growth after 144 hours 09/02/21 12:03 Blood Culture - Preliminary Blood No Growth after 120 hours
[2021-09-08] MEDS: SYMBICORT 160-4.5 MCG INHALER INHALATION SCH ×2 (12:46→19:35)
[2021-09-08] MEDS: METOPROLOL SUCCINATE (ER) 25 MG TAB.ER.24H PO SCH (12:49)
--- NOTE | 2021-09-08 14:06 | P.CONS ---
History of Present Illness - Reason for Consult Consult date: 09/08/21 thrombocytopenia Requesting physician: Beni Rose - Chief Complaint weakness slurred speech - History of Present Illness Mrs. Dobbins is a pleasant 75-year-old female with a prolonged hospitalization of 28 days. She was admitted initially with weakness and slurred speech. she has been seen by Cardiology, Neurology, Infectious Disease, Pulmonary, Pain Management services, Surgery for PEG tube placement. We've been asked to see in regards to a progressively declining platelet count. Patient is not able to relate much of her history to us. She had positive urine culture 08/11/21, positive blood cultures 08/26/21, pseudomonas aeruginosa positive sputum culture 09/02/21. She is received 2 units of packed red blood cells 09/02/21 for hemoglobin of 5.8, the hemoglobin of 11 post transfusion was likely concentrated as that is moderately reasonable follow-up hemoglobin for 2 units of blood. Hgb has remained in the 9 range for the last 4 days, which does seem reasonable post transfusion. She does have positive occult 09/07, her platelets were less than 50,000 for 4 days, Eliquis continued to be given. This morning, platelets returned at 54,000. Hemoglobin 9. Review of Systems review of systems difficult to obtain secondary to tiredness, drifting off to sleep, poor historian, does have formal diagnosis of dementia Past Medical History Past Medical History: Atrial Fibrillation, Asthma, COPD, Dementia, Hyperlipidemia, Hypertension, Memory Impairment, Renal Disease, Seizure Disorder, Vascular Disorder Additional Past Medical History / Comment(s): Aortic aneurysm, daughter states past fluid around lung that was drained off, CKD III, nephrolithiasis, UTI/cysti tis, one seizure in 2019, anemia, chronic back pain, bilateral ankle edema, FALLS History of Any Multi-Drug Resistant Organisms: None Reported Past Surgical History: Back Surgery, Hysterectomy, Orthopedic Surgery, Tonsillectomy, Tubal Ligation Additional Past Surgical History / Comment(s): D&C, EGD, colonoscopy, L hip hemiarthroplasty d/t fracure, R shoulder surgery d/t fracture-has hardware Past Anesthesia/Blood Transfusion Reactions: Motion Sickness Additional Past Anesthesia/Blood Transfusion Reaction / Comm: Pt has clausterphobia. Past Psychological History: Anxiety Additional Psychological History / Comment(s): Pt resides with her daughter, Analisa who is her legal guardian/caregiver. She uses a walker to ambulate. Her daughter is her caregiver, she assists pt with bathing/dressing and manages her medications and also drives her to [employer]. Smoking Status: Never smoker Past Alcohol Use History: None Reported Past Drug Use History: None Reported - Past Family History Mother Family Medical History: Hypertension Father Family Medical History: Coronary Artery Disease (CAD), Myocardial Infarction ([place]) Additional Family Medical History / Comment(s): Father of a [place] in his 70s. Medications and Allergies Home Medications Medication Instructions Recorded Confirmed Type Montelukast Sodium [Singulair] 10 mg PO HS 10/01/19 08/11/21 History Albuterol Sulfate [Ventolin HFA] 2 puff INHALATION RT-Q4H PRN 05/05/20 08/11/21 History Metoprolol Succinate (ER) [Toprol 25 mg PO BID 02/10/21 08/11/21 History XL] Nitroglycerin Sl Tabs [Nitrostat] 0.4 mg SL Q5M PRN 05/22/21 08/11/21 History predniSONE 10 mg PO DAILY 05/22/21 08/11/21 History Apixaban [Eliquis] 5 mg PO BID 06/10/21 08/11/21 History Atorvastatin [Lipitor] 20 mg PO HS 06/10/21 08/11/21 History Melatonin 10 mg PO HS 06/10/21 08/11/21 History Pantoprazole [Protonix] 40 mg PO DAILY 06/10/21 08/11/21 History Potassium Chloride ER [K-Dur 20] 20 meq PO DAILY 06/10/21 08/11/21 History Budesonide-Formot 160-4.5 Mcg 2 puff INHALATION RT-BID gm 06/11/21 08/11/21 Rx [Symbicort 160-4.5 Mcg Inhaler] Megestrol [Megace] 40 mg PO BID 07/22/21 08/11/21 History Ondansetron [Zofran] 4 mg PO Q8HR PRN 07/22/21 08/11/21 History Amiodarone [Cordarone] See Taper PO DIRECTED 08/11/21 08/11/21 History HYDROcodone/APAP 5-325MG [[place] 1 tab PO TID PRN 08/11/21 08/11/21 History 5-325] Allergies Allergy/AdvReac Type Severity Reaction Status Date / Time levofloxacin Allergy Anaphylaxis Verified 08/11/21 20:09 lisinopril Allergy Unknown Verified 08/11/21 20:09 memantine [From Namenda] Allergy Rash/Hives Verified 08/11/21 20:09 Physical Exam Vitals: Vital Signs Temp Pulse Pulse Resp BP BP Pulse Ox 09/08/21 04:00 99.3 F 107 H 18 114/76 95 09/08/21 02:02 98.7 F 09/07/21 23:47 99.0 F 105 H 20 118/78 96 09/07/21 20:49 99.8 F H 09/07/21 19:26 100.1 F H 114 H 18 117/78 95 09/07/21 19:10 114 H 09/07/21 19:02 114 H 09/07/21 17:05 100.3 F H 114 H 16 113/74 96 09/07/21 15:16 104 H 09/07/21 15:05 104 H 09/07/21 12:04 105 H 09/07/21 12:00 98.6 F 107 H 24 114/67 96 09/07/21 11:55 105 H 09/07/21 09:33 108 H 09/07/21 09:19 110 H Intake and Output 09/07/21 09/08/21 09/08/21 22:59 06:59 14:59 Intake Total 192 449 90 Output Total 530 200 250 Balance -338 249 -160 Intake: Tube Feeding 162 389 90 Other 30 60 Output: Urine 530 200 250 Other: Voiding Method Indwelling Catheter Indwelling Catheter # Bowel Movements 1 1 - Constitutional General appearance: average body habitus, cooperative, no acute distress - EENT dry mouth Eyes: anicteric sclerae, edentulous ENT: hearing grossly normal - Neck Neck: no lymphadenopathy - Respiratory Respiratory: bilateral: diminished - Cardiovascular Rhythm: regular Heart sounds: normal: S1, S2 Abnormal Heart Sounds: no systolic murmur, no diastolic murmur, no rub, no S3 Gallop, no S4 Gallop, no click, no other leg Peripheral Edema: bilateral: 3+, Pitting - Gastrointestinal PEG in situ General gastrointestinal: no absent bowel sounds, no decreased bowel sounds, no distended, no hepatomegaly, no hyperactive bowel sounds, normal bowel sounds, no organomegaly, no rigid, no scaphoid, soft, no splenomegaly, no tenderness, no umbilical hernia, no ventral hernia - Integumentary no rashes or lesions on visible skin - Neurologic generalized weakness, no gross neurological deficits appreciated - Psychiatric arousable to voice and touch, answered a few questions with yes, no answers, unable to provide any other detail, drifts back to sleep Psychiatric: no A&O x's 3, no appropriate affect, no intact judgment & insight Results CBC & Chem 7: 09/08/21 07:30 09/08/21 07:30 Labs: Abnormal Lab Results - Last 24 Hours (Table) 09/07/21 09/07/21 09/07/21 Range/Units 12:09 14:00 23:20 POC Glucose (mg/dL) 113 H (70-110) mg/dL Urine Protein 1+ H (Negative) Urine Blood Large H (Negative) Urine Mucus Rare H (None) /hpf Stool Occult Blood Positive H (Negative) 09/08/21 09/08/21 Range/Units 00:07 06:03 POC Glucose (mg/dL) 120 H 118 H (70-110) mg/dL Urine Protein (Negative) Urine Blood (Negative) Urine Mucus (None) /hpf Stool Occult Blood (Negative) Microbiology - Last 24 Hours (Table) 09/01/21 19:42 Blood Culture - Final Blood No Growth after 144 hours 09/02/21 12:03 Blood Culture - Preliminary Blood No Growth after 120 hours Assessment and Plan (1) Anemia Current Visit: Yes Status: Acute Priority: High Code(s): D64.9 - ANEMIA, UNSPECIFIED SNOMED Code(s): 831598113 (2) Thrombocytopenia Current Visit: Yes Status: Acute Priority: High Code(s): D69.6 - THRO MBOCYTOPENIA, UNSPECIFIED SNOMED Code(s): 162523135 Plan: Hgb stable today at 9, no need for transfusion at this time. Continue to monitor CBC. Iron studies reviewed, showing elevated saturation on 08/19. Patient is status post 2 units of PRBCs on 09/02. Will check a ferritin since this has not been checked yet. Based on those findings will reconsider repeating iron studies. additional nutritional studies for anemia have been ordered. Platelets improved today to 54,000. Hemoglobin is stable. Continue eliquis at this time. continue to monitor for bleeding. CBC daily. DIC workup was ordered this morning, both specimen was clotted and the patient was a hard stick so those labs were canceled. Case was discussed with laboratory as well as nursing. Primary care did reorder. Have requested that these be done as soon as possible. Marrow suppression 2/2 meds, abx, repeated infections is one of the differentials. Cont to monitor CBC. Hit antibody was ordered because of patient's prolonged hospitalization, recent hospitalization and LMWH administration attests: I preformed H&P, seen and examined patient, developed impression and plan of care. Discussed with dictator. Agree with dictation, documented as a scribe Time with Patient: Greater than 30
[2021-09-08 15:30] LABS: INR 1.1 (<1.2); Partial Thromboplastin Time 32.5 sec (22.0-30.0); Prothrombin Time 11.4 sec (9.0-12.0)
[2021-09-08] MEDS: ACETAMINOPHEN TAB 325 MG TAB PO PRN (16:30)
--- NOTE | 2021-09-08 17:37 | P.PN ---
Subjective Progress Note Date: 09/08/21 Principal diagnosis: Failure to thrive Urinary tract infection Electrolyte imbalance with hypokalemia and hyponatremia Elevated troponin likely related to demand ischemia Developing progressive weakness Mild hydrocephalus Low back pain due to herniated thoracic vertebrae disc and DJD of spine Hypertension hypertensive cardiovascular disease 09/08/2021, patient seen and evaluated examined during the rounds labs reviewed medications reviewed awake remains on room air breathing comfortably, T-max is 100.5, hemodynamically stable respiratory rate 20, oxygen saturation 98% on room air, sputum culture came back positive for pseudomonas aeruginosa, patient has been on daptomycin along with fluconazole, patient is on tube feed tolerating very well at 55 mL an hour, labs today reveal white cell count 4200 hemoglobin and hematocrit 9 and 30 platelet count of 54,000 from 38 yesterday, stool for occult blood positive 09/02/2021, patient seen eval reexamined during the rounds labs reviewed medications reviewed care plan discussed with the staff at length, patient is ve ry weak and somnolent with shallow respiration, opens eyes with verbal stimuli, patient overnight had another episodes of A. fib with RVR cardiovascular services following, blood glucose is elevated, labs include CBC and chemistry done overnight white cell count is up to 29,300 hemoglobin and hematocrit is 9.5 and 32, platelet count drop down to 120, sodium is 139 protection was 6.4 BUN/creatinine is 43/0.71 09/01/2021, patient seen eval examined during the rounds labs reviewed medications reviewed care plan discussed, respiratory status remained stable patient currently on room air, white cell count continue to go down is 21.4 hemoglobin is stable potassium is 5.7 BUN/creatinine continue to go 47/0.68 patient underwent computed tomography scan of the abdominal and pelvis no significant pathology identified, blood cultures have been negative 08/31/2021, patient seen eval examined during the rounds labs reviewed medications reviewed currently recovering from anesthesia after PEG tube placement tolerated very well complaining of some soreness in the throat and abdominal discomfort, patient is currently nothing by mouth for new PEG tube placement, denies any shortness of breath has been on room air now cuff congestion is present, remains on IV steroids which we will decrease to once daily, patient is also on vancomycin 08/28/2021, patient seen eval examined during the rounds labs reviewed medications reviewed care plan discussed, respirations stable, remains on supplemental oxygen off and on, denies any chest pain, intermittent PACs are seen with A. fib, EP service has been following they're escalated the dose of metoprolol, ID service is also following, white cell count elevated but trending down 08/27/2021, patient seen eval reexamined during the rounds labs reviewed medications reviewed care plan discussed, shortness of breath on activity and exertion however currently afebrile denies any chest pain or shortness of breath patient is in sinus rhythm with intermittent PACs, patient is on metoprolol 100 mg twice a day appears to be tolerating well, blood cultures are positive for enterococcus vancomycin has been admitted, off of Zosyn now ID following 08/26/2021, patient seen eval examined during the rounds labs reviewed medications reviewed care plan discussed, respiratory status remains stable remains on 2 L oxygen more awake and alert now compared to yesterday steroid dose has been reduced, patient tolerating IV Zosyn fairly well renal functions stable A. fib RVR have converted to sinus rhythm patient is off of Cardizem drip 08/25/2021, patient seen eval examined during the rounds labs reviewed medications reviewed care plan discussed with the staff as well as family members present at bedside, patient remains mildly short of breath denies any chest pain however remains confused patient continued to have intermittent episodes of A. fib with RVR back on Cardizem now on 10 mg an hour in metoprolol dose has been escalated as well EP service is following the want to hold the amiodarone drip for now until maximal dose of beta gabriel are being given, patient denies any sputum production, remains on IV Zosyn and IV steroids, we will start tapering the steroids hopefully IV antibiotics can be switched to oral in next 24-48 hours white cell count continue to go up suspect likely related to steroids 08/24/2021, patient seen eval examined during the rounds labs reviewed medications reviewed care plan discussed, respiratory status remains unchanged however seems to be associated with episodes of A. fib with RVR during that time she goes into freezing shortness of breath, similar episode happened overnight has been placed on Cardizem currently on 5 mg/h rate is controlled she somewhat anxious denies any chest pain primary service is present at bedside, due to recurrent episode question were raised about amiodarone noted that patient is being followed by EP service, we will discuss with the per service about consideration of amiodarone given the current status of atrial fibrillation and progressive respiratory deterioration, patient however remains afebrile hemodynamic status stable 100% oxygen on 2 L nasal cannula. Chest x-ray performed on 08/23/2021 reviewed essentially no significant changes been seen no focal infiltrate identified patient has some subsegmental linear atelectasis in the right lower lobe, white cell count is 20,700 with hemoglobin and hematocrit 10/35, BUN/creatinine up to 36/1.31 now down to 42/1.1. Patient remains on as needed bronchodilators with albuterol and oral direct anticoagulant, has been on Cardizem drip 5 mg/h Solu-Medrol is up to 60 mg every 6, patient remains on IV Zosyn 3.375 g 08/16/2021, patient seen eval examined during the rounds labs reviewed medications reviewed, respiratory status remains stable patient doing well remains on room air denies any chest pain, saturation is 98% on room air, patient remains afebrile, patient remains on bronchodilator IV Rocephin for gram-negative urinary tract infection 08/15/2021, patient had relatively less pain in the back, breathing is stable, denies any chest pain, patient has been tolerating IV Rocephin well 08/14/2021, patient seen eval reexamined during the rounds labs reviewed medications reviewed as still have intermittent back pain, respirator status stable denies any chest pain or shortness of breath off of room air now. She remains on bronchodilator and direct oral anticoagulant along with Symbicort tolerating well remains on broad-spectrum IV antibiotics, culture positive for E. coli sensitive to Rocephin 08/13/2021, patient seen and evaluated examined during the round labs reviewed medications reviewed, mild dyspnea on exertion is present denies any chest pain, room air oxygen saturation is 95% to 99%, patient remains afebrile and hemodynamically stable, urine cultures are growing gram-negative rods, patient remains on pain medicines and the anxiety medicine has been on direct oral anticoagulant along with Rocephin already doing well has been afebrile WBC count is down 75-year-old female with prior medical history of the hypertension hypertensive cardiovascular disease has been hospitalized however discharged home brought back due to progressive weakness and inability to eat and swallow also had some component of slurred speech patient has significant history of asthma and asthmatic bronchitis with chronic low back pain, patient was having failure to thrive at home, urine cultures have been sent and results are pending, currently patient is on bronchodilator along with direct oral anticoagulant broad-spectrum antibiotics IV steroids along with her home medicine she is been gently rehydrat ed with normal saline as well, her white cell count arrival was 15,300 came down to 9000 and hemoglobin and hematocrit remained stable so as the platelet count, PT/INR and quinine so within normal limit potassium was low of only 3 improved after potassium replacement sodium was 134 improved to 139, BUN/creatinine 18/1.15 improved to 17/0.93. Troponin was elevated 0.048 up from 0.042, admitted chest x-ray no active process identified computed tomography scan of the brain mild hydrocephalus with chronic changes Objective - Vital Signs Vital signs: Vital Signs Temp 100.5 F H 09/08/21 16:00 Pulse 109 H 09/08/21 16:00 Resp 20 09/08/21 14:00 BP 109/68 09/08/21 16:00 Pulse Ox 99 09/08/21 16:00 FiO2 30 09/05/21 04:18 Intake & Output 09/07/21 09/08/21 09/08/21 18:59 06:59 18:59 Intake Total 491 641 270 Output Total 700 380 775 Balance -209 261 -505 Weight 72.6 kg Intake: IV 140 Sodium Chloride 0.9% 1, 140 000 ml @ 20 mls/hr IV . Q24H [facility] Rx#:[id number] Tube Feeding 231 551 270 Other 120 90 Output: Urine 700 380 775 Other: Voiding Method Indwelling Catheter Indwelling Catheter Indwelling Catheter # Bowel Movements 1 1 ABP, PAP, CO, CI - Last Documented Arterial Blood Pressure 123/61 - Exam - Constitutional General appearance: average body habitus, somnolent but arousable with verbal stimuli - EENT Eyes: PERRLA Ears: bilateral: normal - Neck Neck: normal ROM Carotids: bilateral: upstroke normal Thyroid: bilateral: normal size - Respiratory Respiratory: bilateral: CTA Abdomen, soft PEG tube site intact some oozing at the PAg site stable with dressing - Cardiovascular Rhythm: regular Heart sounds: normal: S1, S2 - Neurologic Neurologic: CNII-XII intact - Musculoskeletal Musculoskeletal: generalized weakness, strength equal bilaterally - Psychiatric Psychiatric: Very weak somnolent - Labs CBC & Chem 7: 09/08/21 07:30 09/08/21 07:30 Labs: Abnormal Lab Results - Last 24 Hours (Table) 09/07/21 09/08/21 09/08/21 Range/Units 23:20 00:07 06:03 RBC (3.80-5.40) m/uL Hgb (11.4-16.0) gm/dL Hct (34.0-46.0) % MCV (80.0-100.0) fL MCHC (31.0-37.0) g/dL RDW (11.5-15.5) % Plt Count (150-450) k/uL Lymphocytes # (1.0-4.8) k/uL Macrocytosis APTT (22.0-30.0) sec Fibrinogen (200-500) mg/dL Chloride (98-107) mmol/L Creatinine (0.52-1.04) mg/dL POC Glucose (mg/dL) 120 H 118 H (70-110) mg/dL Calcium (8.4-10.2) mg/dL AST (14-36) U/L ALT (4-34) U/L C-Reactive Protein (<1.0) mg/dL Total Protein (6.3-8.2) g/dL Albumin (3.5-5.0) g/dL Procalcitonin (0.02-0.09) ng/mL Urine Protein 1+ H (Negative) Urine Blood Large H (Negative) Urine Mucus Rare H (None) /hpf 09/08/21 09/08/21 09/08/21 Range/Units 07:30 07:30 07:30 RBC 2.70 L (3.80-5.40) m/uL Hgb 9.0 L (11.4-16.0) gm/dL Hct 30.0 L (34.0-46.0) % MCV 111.3 H (80.0-100.0) fL MCHC 29.9 L (31.0-37.0) g/dL RDW 18.1 H (11.5-15.5) % Plt Count 54 L (150-450) k/uL Lymphocytes # 0.4 L (1.0-4.8) k/uL Macrocytosis Marked A APTT (22.0-30.0) sec Fibrinogen (200-500) mg/dL Chloride 108 H (98-107) mmol/L Creatinine 0.38 L (0.52-1.04) mg/dL POC Glucose (mg/dL) (70-110) mg/dL Calcium 7.9 L (8.4-10.2) mg/dL AST 42 H (14-36) U/L ALT 84 H (4-34) U/L C-Reactive Protein 33.7 H (<1.0) mg/dL Total Protein 3.8 L (6.3-8.2) g/dL Albumin 2.0 L (3.5-5.0) g/dL Procalcitonin 1.17 H (0.02-0.09) ng/mL Urine Protein (Negative) Urine Blood (Negative) Urine Mucus (None) /hpf 09/08/21 09/08/21 Range/Units 11:57 14:38 RBC (3.80-5.40) m/uL Hgb (11.4-16.0) gm/dL Hct (34.0-46.0) % MCV (80.0-100.0) fL MCHC (31.0-37.0) g/dL RDW (11.5-15.5) % Plt Count (150-450) k/uL Lymphocytes # (1.0-4.8) k/uL Macrocytosis APTT 32.5 H (22.0-30.0) sec Fibrinogen 753 H (200-500) mg/dL Chloride (98-107) mmol/L Creatinine (0.52-1.04) mg/dL POC Glucose (mg/dL) 124 H (70-110) mg/dL Calcium (8.4-10.2) mg/dL AST (14-36) U/L ALT (4-34) U/L C-Reactive Protein (<1.0) mg/dL Total Protein (6.3-8.2) g/dL Albumin (3.5-5.0) g/dL Procalcitonin (0.02-0.09) ng/mL Urine Protein (Negative) Urine Blood (Negative) Urine Mucus (None) /hpf Microbiology - Last 24 Hours (Table) 09/02/21 12:03 Blood Culture - Final Blood No Growth after 144 hours 09/01/21 19:42 Blood Culture - Final Blood No Growth after 144 hours Assessment and Plan Assessment: Pseudomonas aeruginosa tracheobronchitis versus pneumonia Enterococcus bacteremia Acute on chronic diastolic heart failure Atrial fibrillation with rapid ventricular response, recurrent Severe protein calorie malnourishment Chronic persistent asthma by history Leukocytosis likely related to IV steroids as well as sepsis Acute kidney injury Failure to thrive Urinary tract infection due to gram-negative vini, E. coli status post treatment with Rocephin and Electrolyte imbalance with hyperkalemia and hyponatremia Elevated troponin likely related to demand ischemia Developing progressive weakness Normal pressure hydrocephalus, neurology following, Low back pain due to herniated thoracic vertebrae disc and DJD of spine Hypertension hypertensive cardiovascular disease Plan: Continue monitor on room air or supplemental oxygen 2 L nasal cannula as needed in the meantime Status post PEG tube placement for nutritional support On IV daptomycin and Zosyn for pseudomonas pneumonia/tracheobronchitis Monitor off of steroids Optimize treatment for heart failure and A. fib with RVR with consideration of amiodarone, if he relapses Continue replace electrolytes including potassium PT OT evaluation Continue gentle hydration Monitor renal functions closely, Deep breathing sense incentive spirometry Further plan of care as per clinical response of the patient Time with Patient: Greater than 30
[2021-09-08 18:02] LABS: Glucose,Whole Blood 130 mg/dL (70-110)
--- NOTE | 2021-09-08 18:07 | US ---
EXAMINATION TYPE: US venous doppler duplex UE RT DATE OF EXAM: 09/08/2021 COMPARISON: NONE CLINICAL HISTORY: swelling of unknown origin. Sweling of right arm. Patient is on heparin, but got pu t on hold in the afternoon per nurse. SIDE PERFORMED: Right Right Arm: Negative for DVT IMPRESSION: No evidence of deep vein thrombosis in the right arm.
[2021-09-08] MEDS: MONTELUKAST 10 MG TAB PO SCH (21:03)
[2021-09-08] MEDS ORDERED: FUROSEMIDE 10 MG/ML 2 ML VIAL IV ONE (21:15)
[2021-09-08] MEDS: SUCRALFATE 1 GM TAB PO SCH (21:24)
[2021-09-08] MEDS: HYDROmorphone 0.5 MG/0.5 ML SYRINGE IVP PRN (21:25)
--- NOTE | 2021-09-08 21:46 | XR ---
EXAMINATION TYPE: XR chest 1V portable DATE OF EXAM: 09/08/2021 COMPARISON: Yesterday HISTORY: Short of breath TECHNIQUE: Single view FINDINGS: There is pulmonary edema. There is blunting of the costophrenic angles. There is prominent vascular congestion. Thoracic aorta is atheromatous. IMPRESSION: Congestive heart failure with pleural effusions and pulmonary edema that is worse than ye sterday.
[2021-09-08] MEDS: SODIUM CHLORIDE 0.9% IVPB SCH (22:29)
[2021-09-08] MEDS: DAPTOMYCIN IVPB SCH (22:29)
[2021-09-09 00:20] LABS: Glucose,Whole Blood 144 mg/dL (70-110)
[2021-09-09] MEDS: INSULIN ASPART (NovoLOG) 100 UNIT/ML VIAL SQ SCH ×4 (00:20→17:09)
[2021-09-09] MEDS: DILTIAZEM ORAL 30 MG TAB PO SCH ×5 (01:02→21:42)
[2021-09-09] MEDS: HYDROmorphone 0.5 MG/0.5 ML SYRINGE IVP PRN (01:47)
[2021-09-09] MEDS: PIPERACILLIN-TAZOBACTAM 3.375 GM in SODIUM CHLORIDE 0.9% 100 ML IVPB SCH ×3 (05:55→21:42)
[2021-09-09 06:03] LABS: Glucose,Whole Blood 135 mg/dL (70-110)
[2021-09-09] MEDS: SUCRALFATE 1 GM TAB PO SCH ×2 (06:37→13:29)
[2021-09-09] MEDS: IPRATROPIUM-ALBUTEROL 3 ML NEB INHALATION SCH ×5 (07:50→21:04)
[2021-09-09] MEDS: SYMBICORT 160-4.5 MCG INHALER INHALATION SCH ×3 (07:50→20:00)
--- NOTE | 2021-09-09 08:05 | PN ---
PROGRESS NOTE SUBJECTIVE: 75-year-old -[place] female, status post hypokalemia and dehydration. She has sepsis from 2 sources. She has PEG tube due to severe malnutrition. She has pulmonary fibrosis, sepsis from 2 different sources, empiric GI tract versus aspiration pneumonia. OBJECTIVE: CARDIOVASCULAR: S1, S2. LUNGS: Scattered rhonchi and wheeze. HEMATOLOGIC: Negative Homans. GI: PEG tube is intact. Discussed the case with the family. Broad-spectrum antibiotics x2 weeks. Increase dose of Lasix tonight due to respiratory distress. Increase pain medicines. Increase Carafate for GI upset. Prognosis is extremely guarded. Discussed with the family and nursing. MMODL / IJN: [id number] /
[2021-09-09] MEDS: SODIUM CHLORIDE 0.9% 1,000 ML IV SCH (08:10)
[2021-09-09] MEDS: AMIODARONE 200 MG TAB PO SCH ×2 (08:37→20:19)
[2021-09-09] MEDS: PANTOPRAZOLE 40 MG/10 ML VIAL IVP SCH (08:37)
[2021-09-09] MEDS: FUROSEMIDE 10 MG/ML 2 ML VIAL IV SCH ×2 (08:37→17:14)
[2021-09-09] MEDS: FLUCONAZOLE 100 MG TAB PO SCH (08:37)
[2021-09-09] MEDS: KETOTIFEN 0.025% OPHTH DROPS 5 ML BTL BOTH EYES SCH ×2 (08:38→20:19)
[2021-09-09] MEDS: APIXABAN 5 MG TAB PO SCH ×2 (08:38→20:19)
[2021-09-09] MEDS: METOPROLOL SUCCINATE (ER) 25 MG TAB.ER.24H PO SCH (08:38)
[2021-09-09 09:31] LABS: Anisocytosis Slight; Basophils % (A) 0 %; Eosinophils % (A) 1 %; HCT 25.7 % (34.0-46.0); HGB 7.9 gm/dL (11.4-16.0); Hypochromasia Marked; Lymphocytes # (A) 0.4 k/uL (1.0-4.8); Lymphocytes % (A) 12 %; MCH 33.6 pg (25.0-35.0); MCHC 30.8 g/dL (31.0-37.0); MCV 108.9 fL (80.0-100.0); Macrocytosis Marked; Mean Platelet Volume 10.7; Monocytes # (A) 0.1 k/uL (0-1.0); Monocytes % (A) 2 %; Neutrophils # (A) 2.9 k/uL (1.3-7.7); Neutrophils % (A) 83 %; RBC 2.36 m/uL (3.80-5.40); RDW 17.9 % (11.5-15.5); WBC 3.6 k/uL (3.8-10.6)
[2021-09-09 10:00] LABS: Platelet Count 56 k/uL (150-450)
--- NOTE | 2021-09-09 10:41 | P.PN ---
Subjective Progress Note Date: 09/09/21 CHIEF COMPLAINT: Protein malnutrition HISTORY OF PRESENT ILLNESS: Patient is status post PEG tube placement on 09/01/2021. Patient needs a cardiac floor. She is tolerating her tube feeds at goal at 45 mL per hour. Denies any abdominal pain. Denies any nausea vomiting. She is having bowel movements. Labs for today pending Patient seen and examined with Dr. Bernstein PHYSICAL EXAM: VITAL SIGNS: Reviewed. GENERAL: Well-developed in no acute distress. HEENT: No sclera icterus. Extraocular movements grossly intact. Moist buccal mucosa. Head is atraumatic, normocephalic. ABDOMEN: Soft. Nondistended. Nontender. PEG tube site no evidence of bleeding. Site is clean dry and intact NEUROLOGIC: Alert. Cranial nerves II through XII grossly intact. ASSESSMENT: 1. Moderate to severe protein calorie malnutrition 2. Hypoxic respiratory failure 3. Atrial fibrillation on chronic anticoagulation 4. Dementia PLAN: -Surgical service will sign off. Please call with any questions or concerns -Continue tube feeds -Continue supportive care Physician Metal Polisher note has been reviewed by physician. Signing provider agrees with the documented findings, assessment, and plan of care. Objective - Vital Signs Vital signs: Vital Signs Temp 98.4 F 09/09/21 08:00 Pulse 103 H 09/09/21 08:01 Resp 18 09/09/21 08:01 BP 107/66 09/09/21 08:00 Pulse Ox 96 09/09/21 08:00 FiO2 21 09/08/21 19:36 Intake & Output 09/08/21 09/09/21 09/09/21 18:59 06:59 18:59 Intake Total 270 1740 Output Total 775 1115 275 Balance -505 625 -275 Intake: IV 340 Piperacillin-Tazobactam 3 100 .375 gm In Sodium Chloride 0.9% 100 ml @ 25 mls/hr IVPB Q8H [facility] Rx#: [id number] Sodium Chloride 0.9% 1, 240 000 ml @ 20 mls/hr IV . Q24H [facility] Rx#:[id number] Intake, IV Titration 50 Amount DAPTOmycin 390 mg In 50 Sodium Chloride 0.9% 50 ml @ 100 mls/hr IVPB Q24H [facility] Rx#:[id number] Tube Feeding 270 1260 Other 90 Output: Urine 775 1115 275 Uretheral (Cardoza) 1115 275 Other: Voiding Method Indwelling Catheter Diaper Diaper Indwelling Catheter Indwelling Catheter ABP, PAP, CO, CI - Last Documented Arterial Blood Pressure 123/61 - Labs CBC & Chem 7: 09/09/21 09:03 09/08/21 07:30 Labs: Abnormal Lab Results - Last 24 Hours (Table) 09/08/21 09/08/21 09/08/21 Range/Units 07:30 11:57 14:38 WBC (3.8-10.6) k/uL RBC (3.80-5.40) m/uL Hgb (11.4-16.0) gm/dL Hct (34.0-46.0) % MCV (80.0-100.0) fL MCHC (31.0-37.0) g/dL RDW (11.5-15.5) % Plt Count (150-450) k/uL Macrocytosis APTT 32.5 H (22.0-30.0) sec Fibrinogen 753 H (200-500) mg/dL POC Glucose (mg/dL) 124 H (70-110) mg/dL Ferritin (10.0-291.0) ng/mL Procalcitonin 1.17 H (0.02-0.09) ng/mL 09/08/21 09/08/21 09/09/21 Range/Units 14:38 17:59 00:19 WBC (3.8-10.6) k/uL RBC (3.80-5.40) m/uL Hgb (11.4-16.0) gm/dL Hct (34.0-46.0) % MCV (80.0-100.0) fL MCHC (31.0-37.0) g/dL RDW (11.5-15.5) % Plt Count (150-450) k/uL Macrocytosis APTT (22.0-30.0) sec Fibrinogen (200-500) mg/dL POC Glucose (mg/dL) 130 H 144 H (70-110) mg/dL Ferritin 772.0 H (10.0-291.0) ng/mL Procalcitonin (0.02-0.09) ng/mL 09/09/21 09/09/21 Range/Units 06:01 09:03 WBC 3.6 L (3.8-10.6) k/uL RBC 2.36 L (3.80-5.40) m/uL Hgb 7.9 L (11.4-16.0) gm/dL Hct 25.7 L (34.0-46.0) % MCV 108.9 H (80.0-100.0) fL MCHC 30.8 L (31.0-37.0) g/dL RDW 17.9 H (11.5-15.5) % Plt Count 56 L (150-450) k/uL Macrocytosis Marked A APTT (22.0-30.0) sec Fibrinogen (200-500) mg/dL POC Glucose (mg/dL) 135 H (70-110) mg/dL Ferritin (10.0-291.0) ng/mL Procalcitonin (0.02-0.09) ng/mL Microbiology - Last 24 Hours (Table) 09/08/21 07:30 Blood Culture - Preliminary Blood No Growth after 24 hours 09/02/21 12:03 Blood Culture - Final Blood No Growth after 144 hours
[2021-09-09 11:02] LABS: Polychromasia Present
[2021-09-09 11:04] LABS: Poikilocytosis (M) Present
[2021-09-09 11:55] LABS: Glucose,Whole Blood 161 mg/dL (70-110)
--- NOTE | 2021-09-09 12:43 | P.PN ---
Subjective This is a pleasant 75-year-old with past medical history significant for advanced dementia, postural hypotension, chronic kidney disease, hypertension, paroxysmal atrial fibrillation on Eliquis, Bronchitis. She used to follow in the office with Dr. Smart. We are being consulted for elevated troponin. Patient is a poor historian unable to state why she came to the hospital. 08/26/2021- Cardiology was asked to evaluate patient secondary to atrial fibrillation with RVR. The patient went into A. fib with RVR. She was started on IV Cardizem which was then discontinued On 09/02/2021, rapid response was called secondary to patient becoming unresponsive, short of breath, A fib with RVR. Patient was transferred to the ICU and was intubated. She was eventually extubated and transferred to on 09/07/21. 09/09/2021 Patient seen and examined at bedside, she is lethargic, not answering questions appropriately. Unable to state how she is feeling. She does have advanced dementia and she is very poor historian. She is in no distress on exam this morning. Overnight patient was short of breath, increased JVD noted, patient given extra dose of 20mg IV Lasix with 625mL urine output. She appears to be in and out of sinus with PACs and atrial fibrillation with RVR. Currently in A fib with HR improved in low 100s since yesterday. Her beta gabriel has been resumed. Patient with 1.8L urine output over the past 24 hours. Meds: Amiodarone 400 mg twice a day, Cardizem 30 mg every 8 hours, IV Lasix 20 mg daily, metoprolol succinate 25mg daily PHYSICAL EXAM: VITAL SIGNS: Reviewed. GENERAL: In no acute distress. Generalized edema NECK: Supple. No JVD LUNGS: Respirations even and unlabored. Lungs essentially clear to auscultation bilaterally, diminished in bases. HEART: Irregular rate and rhythm. S1 and S2 heard. Systolic murmur noted. EXTREMITIES: No clubbing or cyanosis. Peripheral pulses intact. 3+ bilateral extremity edema, Generalized edema. ASSESSMENT: Paroxysmal atrial fibrillation with RVR Sepsis with enterococcus bacteremia Acute on chronic diastolic heart failure, exacerbated by severe protein calorie malnutrition Acute kidney injury, improved Urinary tract infection Leukocytosis Elevated troponin, likely related to acute kidney injury Dementia Altered mental status History asthma/COPD History of Hypertension History of postural hypotension Chronic kidney disease Status post PEG tube placement Severe protein calorie malnutrition PLAN: Continue Lasix IV, patient with marginal blood pressures Monitor kidney function and electrolytes Continue Amiodarone 400mg BID (started on 09/04) Continue Cardizem and beta gabriel Eliquis remains on hold secondary to anemia with Hgb 7.9 and bleeding around PEG tube site Continue telemetry monitoring Further recommendations based on clinical course Nurse practitioner note has been reviewed by physician. Signing provider agrees with the documented findings, assessment, and plan of care. Objective - Vital Signs Vital signs: Vital Signs Temp 98.4 F 09/09/21 08:00 Pulse 103 H 09/09/21 08:01 Resp 18 09/09/21 08:01 BP 107/66 09/09/21 08:00 Pulse Ox 96 09/09/21 08:00 FiO2 21 09/08/21 19:36 Intake & Output 09/08/21 09/09/21 09/09/21 18:59 06:59 18:59 Intake Total 270 1740 Output Total 775 1115 Balance -505 625 Intake: IV 340 Piperacillin-Tazobactam 3 100 .375 gm In Sodium Chloride 0.9% 100 ml @ 25 mls/hr IVPB Q8H [facility] Rx#: [id number] Sodium Chloride 0.9% 1, 240 000 ml @ 20 mls/hr IV . Q24H [facility] Rx#:[id number] Intake, IV Titration 50 Amount DAPTOmycin 390 mg In 50 Sodium Chloride 0.9% 50 ml @ 100 mls/hr IVPB Q24H [facility] Rx#:[id number] Tube Feeding 270 1260 Other 90 Output: Urine 775 1115 Uretheral (Cardoza) 1115 Other: Voiding Method Indwelling Catheter Diaper Diaper Indwelling Catheter Indwelling Catheter ABP, PAP, CO, CI - Last Documented Arterial Blood Pressure 123/61 - Labs CBC & Chem 7: 09/09/21 09:03 09/08/21 07:30 Labs: Abnormal Lab Results - Last 24 Hours (Table) 09/08/21 09/08/21 09/08/21 Range/Units 07:30 07:30 07:30 RBC 2.70 L (3.80-5.40) m/uL Hgb 9.0 L (11.4-16.0) gm/dL Hct 30.0 L (34.0-46.0) % MCV 111.3 H (80.0-100.0) fL MCHC 29.9 L (31.0-37.0) g/dL RDW 18.1 H (11.5-15.5) % Plt Count 54 L (150-450) k/uL Lymphocytes # 0.4 L (1.0-4.8) k/uL Macrocytosis Marked A APTT (22.0-30.0) sec Fibrinogen (200-500) mg/dL Chloride 108 H (98-107) mmol/L Creatinine 0.38 L (0.52-1.04) mg/dL POC Glucose (mg/dL) (70-110) mg/dL Calcium 7.9 L (8.4-10.2) mg/dL Ferritin (10.0-291.0) ng/mL AST 42 H (14-36) U/L ALT 84 H (4-34) U/L C-Reactive Protein 33.7 H (<1.0) mg/dL Total Protein 3.8 L (6.3-8.2) g/dL Albumin 2.0 L (3.5-5.0) g/dL Procalcitonin 1.17 H (0.02-0.09) ng/mL 09/08/21 09/08/21 09/08/21 Range/Units 11:57 14:38 14:38 RBC (3.80-5.40) m/uL Hgb (11.4-16.0) gm/dL Hct (34.0-46.0) % MCV (80.0-100.0) fL MCHC (31.0-37.0) g/dL RDW (11.5-15.5) % Plt Count (150-450) k/uL Lymphocytes # (1.0-4.8) k/uL Macrocytosis APTT 32.5 H (22.0-30.0) sec Fibrinogen 753 H (200-500) mg/dL Chloride (98-107) mmol/L Creatinine (0.52-1.04) mg/dL POC Glucose (mg/dL) 124 H (70-110) mg/dL Calcium (8.4-10.2) mg/dL Ferritin 772.0 H (10.0-291.0) ng/mL AST (14-36) U/L ALT (4-34) U/L C-Reactive Protein (<1.0) mg/dL Total Protein (6.3-8.2) g/dL Albumin (3.5-5.0) g/dL Procalcitonin (0.02-0.09) ng/mL 09/08/21 09/09/21 09/09/21 Range/Units 17:59 00:19 06:01 RBC (3.80-5.40) m/uL Hgb (11.4-16.0) gm/dL Hct (34.0-46.0) % MCV (80.0-100.0) fL MCHC (31.0-37.0) g/dL RDW (11.5-15.5) % Plt Count (150-450) k/uL Lymphocytes # (1.0-4.8) k/uL Macrocytosis APTT (22.0-30.0) sec Fibrinogen (200-500) mg/dL Chloride (98-107) mmol/L Creatinine (0.52-1.04) mg/dL POC Glucose (mg/dL) 130 H 144 H 135 H (70-110) mg/dL Calcium (8.4-10.2) mg/dL Ferritin (10.0-291.0) ng/mL AST (14-36) U/L ALT (4-34) U/L C-Reactive Protein (<1.0) mg/dL Total Protein (6.3-8.2) g/dL Albumin (3.5-5.0) g/dL Procalcitonin (0.02-0.09) ng/mL Microbiology - Last 24 Hours (Table) 09/02/21 12:03 Blood Culture - Final Blood No Growth after 144 hours
--- NOTE | 2021-09-09 12:45 | P.PN ---
Subjective Progress Note Date: 09/08/21 Principal diagnosis: Leukocytosis and bacteremia Patient is a 75-year-old -[place] female initially presented to hospital on 08/11/2021 for increasing weakness slurred speech with concern for possible CVA patient did have Enterococcus faecalis bacteremia Patient UA was negative. CT Abdominal pelvis didn't mention any abnormality echocardiogram negative for any vegetation subsequently did have a PEG tube placement for decreased by mouth intake afterwards worsening status requiring transfer to the next few for the patient was intubated and subsequently has been successfully extubated and transfered out of the ICU On today's evaluation that is 09/08/2021 the patient did have a low-grade fever of 99.7 this morning, the patient has been moved out of the ICU patient is currently lethargic and did not provide any history and the patient is currently on room air no vomiting diarrhea or any other changes reported by the nursing staff she has been tolerating her tube feeds Objective - Vital Signs Vital signs: Vital Signs Temp 99.7 F H 09/08/21 08:00 Pulse 124 H 09/08/21 08:00 Resp 20 09/08/21 08:00 BP 115/75 09/08/21 08:00 Pulse Ox 92 L 09/08/21 08:00 FiO2 30 09/05/21 04:18 Intake & Output 09/07/21 09/08/21 09/08/21 18:59 06:59 18:59 Intake Total 491 641 90 Output Total 700 380 250 Balance -209 261 -160 Weight 72.6 kg Intake: IV 140 Sodium Chloride 0.9% 1, 140 000 ml @ 20 mls/hr IV . Q24H [facility] Rx#:[id number] Tube Feeding 231 551 90 Other 120 90 Output: Urine 700 380 250 Other: Voiding Method Indwelling Catheter Indwelling Catheter Indwelling Catheter # Bowel Movements 1 1 ABP, PAP, CO, CI - Last Documented Arterial Blood Pressure 123/61 - Exam GENERAL DESCRIPTION: Elderly female lying in bed in no distress LUNGS: Unlabored breathing. Decreased breath sound the base HEART: S1, S2, regular rate and rhythm. ABDOMEN: Soft, no tenderness , PEG tube site with no erythema or drainage EXTREMITIES: No edema of feet. - Labs CBC & Chem 7: 09/09/21 09:03 09/08/21 07:30 Labs: Abnormal Lab Results - Last 24 Hours (Table) 09/07/21 09/07/21 09/07/21 Range/Units 12:09 14:00 23:20 RBC (3.80-5.40) m/uL Hgb (11.4-16.0) gm/dL Hct (34.0-46.0) % MCV (80.0-100.0) fL MCHC (31.0-37.0) g/dL RDW (11.5-15.5) % Plt Count (150-450) k/uL Lymphocytes # (1.0-4.8) k/uL Macrocytosis Chloride (98-107) mmol/L Creatinine (0.52-1.04) mg/dL POC Glucose (mg/dL) 113 H (70-110) mg/dL Calcium (8.4-10.2) mg/dL AST (14-36) U/L ALT (4-34) U/L C-Reactive Protein (<1.0) mg/dL Total Protein (6.3-8.2) g/dL Albumin (3.5-5.0) g/dL Urine Protein 1+ H (Negative) Urine Blood Large H (Negative) Urine Mucus Rare H (None) /hpf Stool Occult Blood Positive H (Negative) 09/08/21 09/08/21 09/08/21 Range/Units 00:07 06:03 07:30 RBC 2.70 L (3.80-5.40) m/uL Hgb 9.0 L (11.4-16.0) gm/dL Hct 30.0 L (34.0-46.0) % MCV 111.3 H (80.0-100.0) fL MCHC 29.9 L (31.0-37.0) g/dL RDW 18.1 H (11.5-15.5) % Plt Count 54 L (150-450) k/uL Lymphocytes # 0.4 L (1.0-4.8) k/uL Macrocytosis Marked A Chloride (98-107) mmol/L Creatinine (0.52-1.04) mg/dL POC Glucose (mg/dL) 120 H 118 H (70-110) mg/dL Calcium (8.4-10.2) mg/dL AST (14-36) U/L ALT (4-34) U/L C-Reactive Protein (<1.0) mg/dL Total Protein (6.3-8.2) g/dL Albumin (3.5-5.0) g/dL Urine Protein (Negative) Urine Blood (Negative) Urine Mucus (None) /hpf Stool Occult Blood (Negative) 09/08/21 Range/Units 07:30 RBC (3.80-5.40) m/uL Hgb (11.4-16.0) gm/dL Hct (34.0-46.0) % MCV (80.0-100.0) fL MCHC (31.0-37.0) g/dL RDW (11.5-15.5) % Plt Count (150-450) k/uL Lymphocytes # (1.0-4.8) k/uL Macrocytosis Chloride 108 H (98-107) mmol/L Creatinine 0.38 L (0.52-1.04) mg/dL POC Glucose (mg/dL) (70-110) mg/dL Calcium 7.9 L (8.4-10.2) mg/dL AST 42 H (14-36) U/L ALT 84 H (4-34) U/L C-Reactive Protein 33.7 H (<1.0) mg/dL Total Protein 3.8 L (6.3-8.2) g/dL Albumin 2.0 L (3.5-5.0) g/dL Urine Protein (Negative) Urine Blood (Negative) Urine Mucus (None) /hpf Stool Occult Blood (Negative) Microbiology - Last 24 Hours (Table) 09/01/21 19:42 Blood Culture - Final Blood No Growth after 144 hours 09/02/21 12:03 Blood Culture - Preliminary Blood No Growth after 120 hours Assessment and Plan (1) Leukocytosis Current Visit: Yes Status: Acute Code(s): D72.829 - ELEVATED WHITE BLOOD CELL COUNT, UNSPECIFIED SNOMED Code(s): 410213534 (2) Bacteremia Current Visit: Yes Status: Acute Code(s): R78.81 - BACTEREMIA SNOMED Code(s): 7527052 Plan: 1patient with Enterococcus bacteremia which usually of gut or urinary source however the UA on 08/26/2020 was negative, blood cultures repeated so far negative, CT abdominal pelvis did not show any acute abnormality, echocardiogram did not show any vegetation possible transient bacteremia from either GI or urinary source, patient cleared her bacteremia quickly, Patient is currently being treated with daptomycin to finish a 2-week course of therapy 2- patient with episode of acute respiratory failure requiring intubation and question of aspiration pneumonia sputum has been positive for pseudomonas with the patient is covered with Zosyn , Patient did have repeat chest x-ray findings suggestive of CHF no consolidation she also have Doppler ultrasound of the ext remity negative for DVT and will monitor closely Time with Patient: Less than 30
--- NOTE | 2021-09-09 13:51 | P.PN ---
Subjective Progress Note Date: 09/09/21 Principal diagnosis: thrombocytopenia, anemia in follow-up today patient was more easily aroused than yesterday, more conversational than yesterday as well. She denied any nausea, bleeding, difficulty in breathing or pain. Objective - Vital Signs Vital signs: Vital Signs Temp 98.4 F 09/09/21 08:00 Pulse 103 H 09/09/21 08:01 Resp 18 09/09/21 08:01 BP 107/66 09/09/21 08:00 Pulse Ox 96 09/09/21 08:00 FiO2 21 09/08/21 19:36 Intake & Output 09/08/21 09/09/21 09/09/21 18:59 06:59 18:59 Intake Total 270 1740 Output Total 775 1115 Balance -505 625 Intake: IV 340 Piperacillin-Tazobactam 3 100 .375 gm In Sodium Chloride 0.9% 100 ml @ 25 mls/hr IVPB Q8H [facility] Rx#: [id number] Sodium Chloride 0.9% 1, 240 000 ml @ 20 mls/hr IV . Q24H [facility] Rx#:[id number] Intake, IV Titration 50 Amount DAPTOmycin 390 mg In 50 Sodium Chloride 0.9% 50 ml @ 100 mls/hr IVPB Q24H [facility] Rx#:[id number] Tube Feeding 270 1260 Other 90 Output: Urine 775 1115 Uretheral (Cardoza) 1115 Other: Voiding Method Indwelling Catheter Diaper Indwelling Catheter ABP, PAP, CO, CI - Last Documented Arterial Blood Pressure 123/61 - Constitutional General appearance: Present: cooperative, no acute distress, thin - EENT EENT Comment(s): dry mouth, coated tongue Eyes: Present: anicteric sclerae ENT: Present: hearing grossly normal - Respiratory Respiratory: bilateral: CTA - Cardiovascular Rhythm: regular Heart sounds: normal: S1, S2 - Peripheral edema leg Peripheral Edema: bilateral: Trace - Gastrointestinal General gastrointestinal: Present: normal bowel sounds, soft - Musculoskeletal Musculoskeletal: Present: generalized weakness - Labs CBC & Chem 7: 09/09/21 09:03 09/08/21 07:30 Labs: Abnormal Lab Results - Last 24 Hours (Table) 09/08/21 09/08/21 09/08/21 Range/Units 07:30 07:30 07:30 RBC 2.70 L (3.80-5.40) m/uL Hgb 9.0 L (11.4-16.0) gm/dL Hct 30.0 L (34.0-46.0) % MCV 111.3 H (80.0-100.0) fL MCHC 29.9 L (31.0-37.0) g/dL RDW 18.1 H (11.5-15.5) % Plt Count 54 L (150-450) k/uL Lymphocytes # 0.4 L (1.0-4.8) k/uL Macrocytosis Marked A APTT (22.0-30.0) sec Fibrinogen (200-500) mg/dL Chloride 108 H (98-107) mmol/L Creatinine 0.38 L (0.52-1.04) mg/dL POC Glucose (mg/dL) (70-110) mg/dL Calcium 7.9 L (8.4-10.2) mg/dL Ferritin (10.0-291.0) ng/mL AST 42 H (14-36) U/L ALT 84 H (4-34) U/L C-Reactive Protein 33.7 H (<1.0) mg/dL Total Protein 3.8 L (6.3-8.2) g/dL Albumin 2.0 L (3.5-5.0) g/dL Procalcitonin 1.17 H (0.02-0.09) ng/mL 09/08/21 09/08/21 09/08/21 Range/Units 11:57 14:38 14:38 RBC (3.80-5.40) m/uL Hgb (11.4-16.0) gm/dL Hct (34.0-46.0) % MCV (80.0-100.0) fL MCHC (31.0-37.0) g/dL RDW (11.5-15.5) % Plt Count (150-450) k/uL Lymphocytes # (1.0-4.8) k/uL Macrocytosis APTT 32.5 H (22.0-30.0) sec Fibrinogen 753 H (200-500) mg/dL Chloride (98-107) mmol/L Creatinine (0.52-1.04) mg/dL POC Glucose (mg/dL) 124 H (70-110) mg/dL Calcium (8.4-10.2) mg/dL Ferritin 772.0 H (10.0-291.0) ng/mL AST (14-36) U/L ALT (4-34) U/L C-Reactive Protein (<1.0) mg/dL Total Protein (6.3-8.2) g/dL Albumin (3.5-5.0) g/dL Procalcitonin (0.02-0.09) ng/mL 09/08/21 09/09/21 09/09/21 Range/Units 17:59 00:19 06:01 RBC (3.80-5.40) m/uL Hgb (11.4-16.0) gm/dL Hct (34.0-46.0) % MCV (80.0-100.0) fL MCHC (31.0-37.0) g/dL RDW (11.5-15.5) % Plt Count (150-450) k/uL Lymphocytes # (1.0-4.8) k/uL Macrocytosis APTT (22.0-30.0) sec Fibrinogen (200-500) mg/dL Chloride (98-107) mmol/L Creatinine (0.52-1.04) mg/dL POC Glucose (mg/dL) 130 H 144 H 135 H (70-110) mg/dL Calcium (8.4-10.2) mg/dL Ferritin (10.0-291.0) ng/mL AST (14-36) U/L ALT (4-34) U/L C-Reactive Protein (<1.0) mg/dL Total Protein (6.3-8.2) g/dL Albumin (3.5-5.0) g/dL Procalcitonin (0.02-0.09) ng/mL Microbiology - Last 24 Hours (Table) 09/02/21 12:03 Blood Culture - Final Blood No Growth after 144 hours - Imaging and Cardiology Chest x-ray: report reviewed Doppler report reviewed, no DVT in the right upper extremity Assessment and Plan (1) Anemia Current Visit: Yes Status: Acute Priority: High Code(s): D64.9 - ANEMIA, UNSPECIFIED SNOMED Code(s): 482388827 (2) Thrombocytopenia Current Visit: Yes Status: Acute Priority: High Code(s): D69.6 - THROMBOCYTOPENIA, UNSPECIFIED SNOMED Code(s): 849668322 Plan: Hemoglobin 7.9 today. No nursing documentation of any bleeding. Patient is confused but denies any bleeding. Continue to monitor CBC. Iron studies r eviewed, showing elevated saturation on 08/19. Patient is status post 2 units of PRBCs on 09/02. Ferritin was elevated at 772. No iron deficiency suspected. No specific nutritional deficiencies for anemia identified. Platelets 56,000. HIT ab neg. Hemoglobin is trending down. Continue eliquis at this time with close monitoring for any bleeding. CBC daily. No laboratory evidence of DIC. Fibrinogen 772. Marrow suppression 2/2 meds, abx, repeated infections is one of the differentials.
--- NOTE | 2021-09-09 16:39 | P.PN ---
Subjective Progress Note Date: 09/09/21 Principal diagnosis: Failure to thrive Urinary tract infection Electrolyte imbalance with hypokalemia and hyponatremia Elevated troponin likely related to demand ischemia Developing progressive weakness Mild hydrocephalus Low back pain due to herniated thoracic vertebrae disc and DJD of spine Hypertension hypertensive cardiovascular disease 09/09/2021, patient seen eval examined remains on room air, afebrile saturation is 95%, on 40% oxygen, she is tolerating tube feed well, moans opens eyes follow simple commands remains very weak no active issues from pulmonary stent 09/08/2021, patient seen and evaluated examined during the rounds labs reviewed medications reviewed awake remains on room air breathing comfortably, T-max is 100.5, hemodynamically stable respiratory rate 20, oxygen saturation 98% on room air, sputum culture came back positive for pseudomonas aeruginosa, patient has been on daptomycin along with fluconazole, patient is on tube feed tolerating very well at 55 mL an hour, labs today reveal white cell count 4200 hemoglobin and hematocrit 9 and 30 platelet count of 54,000 from 38 yesterday, stool for occult blood positive 09/02/2021, patient seen eval reexamined during the rounds labs reviewed medications reviewed care plan discussed with the staff at length, patient is very weak and somnolent with shallow respiration, opens eyes with verbal stimuli, patient overnight had another episodes of A. fib with RVR cardiovascular services following, blood glucose is elevated, labs include CBC and chemistry done overnight white cell count is up to 29,300 hemoglobin and hematocrit is 9.5 and 32, platelet count drop down to 120, sodium is 139 protection was 6.4 BUN/creatinine is 43/0.71 09/01/2021, patient seen eval examined during the rounds labs reviewed medications reviewed care plan discussed, respiratory status remained stable patient currently on room air, white cell count continue to go down is 21.4 hemoglobin is stable potassium is 5.7 BUN/creatinine continue to go 47/0.68 patient underwent computed tomography scan of the abdominal and pelvis no significant pathology identified, blood cultures have been negative 08/31/2021, patient seen eval examined during the rounds labs reviewed medications reviewed currently recovering from anesthesia after PEG tube placement tolerated very well complaining of some soreness in the throat and abdominal discomfort, patient is currently nothing by mouth for new PEG tube placement, denies any shortness of breath has been on room air now cuff congestion is present, remains on IV steroids which we will decrease to once daily, patient is also on vancomycin 08/28/2021, patient seen eval examined during the rounds labs reviewed medications reviewed care plan discussed, respirations stable, remains on supplemental oxygen off and on, denies any chest pain, intermittent PACs are see n with A. fib, EP service has been following they're escalated the dose of metoprolol, ID service is also following, white cell count elevated but trending down 08/27/2021, patient seen eval reexamined during the rounds labs reviewed medications reviewed care plan discussed, shortness of breath on activity and exertion however currently afebrile denies any chest pain or shortness of breath patient is in sinus rhythm with intermittent PACs, patient is on metoprolol 100 mg twice a day appears to be tolerating well, blood cultures are positive for enterococcus vancomycin has been admitted, off of Zosyn now ID following 08/26/2021, patient seen eval examined during the rounds labs reviewed med ications reviewed care plan discussed, respiratory status remains stable remains on 2 L oxygen more awake and alert now compared to yesterday steroid dose has been reduced, patient tolerating IV Zosyn fairly well renal functions stable A. fib RVR have converted to sinus rhythm patient is off of Cardizem drip 08/25/2021, patient seen eval examined during the rounds labs reviewed medications reviewed care plan discussed with the staff as well as family members present at bedside, patient remains mildly short of breath denies any chest pain however remains confused patient continued to have intermittent episodes of A. fib with RVR back on Cardizem now on 10 mg an hour in metoprolol dose has been escalated as well EP service is following the want to hold the amiodarone drip for now until maximal dose of beta gabriel are being given, patient denies any sputum production, remains on IV Zosyn and IV steroids, we will start tapering the steroids hopefully IV antibiotics can be switched to ora l in next 24-48 hours white cell count continue to go up suspect likely related to steroids 08/24/2021, patient seen eval examined during the rounds labs reviewed medications reviewed care plan discussed, respiratory status remains unchanged however seems to be associated with episodes of A. fib with RVR during that time she goes into freezing shortness of breath, similar episode happened overnight has been placed on Cardizem currently on 5 mg/h rate is controlled she somewhat anxious denies any chest pain primary service is present at bedside, due to recurrent episode question were raised about amiodarone noted that patient is being followed by EP service, we will discuss with the per service about consideration of amiodarone given the current status of atrial fibrillation and progressive respiratory deterioration, patient however remains afebrile hemodynamic status stable 100% oxygen on 2 L nasal cannula. Chest x-ray performed on 08/23/2021 reviewed essentially no significant changes been seen no focal infiltrate identified patient has some subsegmental linear atelectasis in the right lower lobe, white cell count is 20,700 with hemoglobin and hematocrit 10/35, BUN/creatinine up to 36/1.31 now down to 42/1.1. Patient remains on as needed bronchodilators with albuterol and oral direct anticoagulant, has been on Cardizem drip 5 mg/h Solu-Medrol is up to 60 mg every 6, patient remains on IV Zosyn 3.375 g 08/16/2021, patient seen eval examined during the rounds labs reviewed medications reviewed, respiratory status remains stable patient doing well remains on room air denies any chest pain, saturation is 98% on room air, patient remains afebrile, patient remains on bronchodilator IV Rocephin for gram-negative urinary tract infection 08/15/2021, patient had relatively less pain in the back, breathing is stable, denies any chest pain, patient has been tolerating IV Rocephin well 08/14/2021, patient seen eval reexamined during the rounds labs reviewed medications reviewed as still have intermittent back pain, respirator status stable denies any chest pain or shortness of breath off of room air now. She remains on bronchodilator and direct oral anticoagulant along with Symbicort tolerating well remains on broad-spectrum IV antibiotics, culture positive for E. coli sensitive to Rocephin 08/13/2021, patient seen and evaluated examined during the round labs reviewed medications reviewed, mild dyspnea on exertion is present denies any chest pain, room air oxygen saturation is 95% to 99%, patient remains afebrile and hemodynamically stable, urine cultures are growing gram-negative rods, patient remains on pain medicines and the anxiety medicine has been on direct oral anticoagulant along with Rocephin already doing well has been afebrile WBC count is down 75-year-old female with prior medical history of the hypertension hypertensive cardiovascular disease has been hospitalized however discharged home brought back due to progressive weakness and inability to eat and swallow also had some component of slurred speech patient has significant history of asthma and asthmatic bronchitis with chronic low back pain, patient was having failure to thrive at home, urine cultures have been sent and results are pending, currently patient is on bronchodilator along with direct oral anticoagulant broad-spectrum antibiotics IV steroids along with her home medicine she is been gently rehydrated with normal saline as well, her white cell count arrival was 15,300 came down to 9000 and hemoglobin and hematocrit remained stable so as the platelet count, PT/INR and quinine so within normal limit potassium was low of only 3 improved after potassium replacement sodium was 134 improved to 139, BUN/creatinine 18/1.15 improved to 17/0.93. Troponin was elevated 0.048 up from 0.042, admitted chest x-ray no active process identified computed tomography scan of the brain mild hydrocephalus with chronic changes Objective - Vital Signs Vital signs: Vital Signs Temp 98.2 F 09/09/21 11:46 Pulse 105 H 09/09/21 16:00 Resp 18 09/09/21 16:00 BP 97/63 09/09/21 11:46 Pulse Ox 95 09/09/21 11:46 FiO2 0.40 09/09/21 15:17 Intake & Output 09/08/21 09/09/21 09/09/21 18:59 06:59 18:59 Intake Total 270 1740 Output Total 775 1115 550 Balance -505 625 -550 Weight 72.6 kg Intake: IV 340 Piperacillin-Tazobactam 3 100 .375 gm In Sodium Chloride 0.9% 100 ml @ 25 mls/hr IVPB Q8H [facility] Rx#: [id number] Sodium Chloride 0.9% 1, 240 000 ml @ 20 mls/hr IV . Q24H [facility] Rx#:[id number] Intake, IV Titration 50 Amount DAPTOmycin 390 mg In 50 Sodium Chloride 0.9% 50 ml @ 100 mls/hr IVPB Q24H [facility] Rx#:[id number] Tube Feeding 270 1260 Other 90 Output: Urine 775 1115 550 Uretheral (Cardoza) 1115 550 Other: Voiding Method Indwelling Catheter Diaper Diaper Indwelling Catheter Indwelling Catheter ABP, PAP, CO, CI - Last Documented Arterial Blood Pressure 123/61 - Exam - Constitutional General appearance: average body habitus, somnolent but arousable with verbal stimuli - EENT Eyes: PERRLA Ears: bilateral: normal - Neck Neck: normal ROM Carotids: bilateral: upstroke normal Thyroid: bilateral: normal size - Respiratory Respiratory: bilateral: CTA Abdomen, soft PEG tube site intact some oozing at the PAg site stable with dressing - Cardiovascular Rhythm: regular Heart sounds: normal: S1, S2 - Neurologic Neurologic: CNII-XII intact - Musculoskeletal Musculoskeletal: generalized weakness, strength equal bilaterally - Psychiatric Psychiatric: Very weak somnolent - Labs CBC & Chem 7: 09/09/21 09:03 09/08/21 07:30 Labs: Abnormal Lab Results - Last 24 Hours (Table) 09/08/21 09/08/21 09/09/21 Range/Units 14:38 17:59 00:19 WBC (3.8-10.6) k/uL RBC (3.80-5.40) m/uL Hgb (11.4-16.0) gm/dL Hct (34.0-46.0) % MCV (80.0-100.0) fL MCHC (31.0-37.0) g/dL RDW (11.5-15.5) % Plt Count (150-450) k/uL Lymphocytes # (1.0-4.8) k/uL Macrocytosis POC Glucose (mg/dL) 130 H 144 H (70-110) mg/dL Ferritin 772.0 H (10.0-291.0) ng/mL 09/09/21 09/09/21 09/09/21 Range/Units 06:01 09:03 11:53 WBC 3.6 L (3.8-10.6) k/uL RBC 2.36 L (3.80-5.40) m/uL Hgb 7.9 L (11.4-16.0) gm/dL Hct 25.7 L (34.0-46.0) % MCV 108.9 H (80.0-100.0) fL MCHC 30.8 L (31.0-37.0) g/dL RDW 17.9 H (11.5-15.5) % Plt Count 56 L (150-450) k/uL Lymphocytes # 0.4 L (1.0-4.8) k/uL Macrocytosis Marked A POC Glucose (mg/dL) 135 H 161 H (70-110) mg/dL Ferritin (10.0-291.0) ng/mL Microbiology - Last 24 Hours (Table) 09/08/21 07:30 Blood Culture - Preliminary Blood No Growth after 24 hours 09/02/21 12:03 Blood Culture - Final Blood No Growth after 144 hours Assessment and Plan Assessment: Pseudomonas aeruginosa tracheobronchitis versus pneumonia Enterococcus bacteremia Acute on chronic diastolic heart failure Atrial fibrillation with rapid ventricular response, recurrent Severe protein calorie malnourishment Chronic persistent asthma by history Leukocytosis likely related to IV steroids as well as sepsis Acute kidney injury Failure to thrive Urinary tract infection due to gram-negative vini, E. coli status post treatment with Rocephin and Electrolyte imbalance with hyperkalemia and hyponatremia Elevated troponin likely related to demand ischemia Developing progressive weakness Normal pressure hydrocephalus, neurology following, Low back pain due to herniated thoracic vertebrae disc and DJD of spine Hypertension hypertensive cardiovascular disease Plan: Continue monitor on room air or supplemental oxygen 2 L nasal cannula as needed in the meantime Status post PEG tube placement for nutritional support On IV daptomycin and Zosyn for pseudomonas pneumonia/tracheobronchitis Monitor off of steroids Optimize treatment for heart failure and A. fib with RVR with consideration of amiodarone, if he relapses Continue replace electrolytes including potassium PT OT evaluation Continue gentle hydration Monitor renal functions closely, Deep breathing sense incentive spirometry Further plan of care as per clinical response of the patient We'll sign off Time with Patient: Greater than 30
[2021-09-09 17:08] LABS: Glucose,Whole Blood 130 mg/dL (70-110)
[2021-09-09] MEDS: MONTELUKAST 10 MG TAB PO SCH (20:18)
[2021-09-09] MEDS: SODIUM CHLORIDE 0.9% IVPB SCH (22:46)
[2021-09-09] MEDS: DAPTOMYCIN IVPB SCH (22:46)
[2021-09-10 00:05] LABS: Glucose,Whole Blood 157 mg/dL (70-110)
[2021-09-10] MEDS: FUROSEMIDE 10 MG/ML 2 ML VIAL IV SCH ×4 (00:14→23:18)
[2021-09-10] MEDS: INSULIN ASPART (NovoLOG) 100 UNIT/ML VIAL SQ SCH ×4 (00:15→16:38)
[2021-09-10] MEDS: ACETAMINOPHEN TAB 325 MG TAB PO PRN (00:24)
[2021-09-10] MEDS: PIPERACILLIN-TAZOBACTAM 3.375 GM in SODIUM CHLORIDE 0.9% 100 ML IVPB SCH ×3 (05:44→23:18)
[2021-09-10 06:03] LABS: Glucose,Whole Blood 153 mg/dL (70-110)
[2021-09-10] MEDS: SUCRALFATE 1 GM TAB PO SCH ×2 (07:04→16:12)
[2021-09-10] MEDS: SODIUM CHLORIDE 0.9% 1,000 ML IV SCH (07:05)
[2021-09-10] MEDS: SYMBICORT 160-4.5 MCG INHALER INHALATION SCH ×2 (07:48→19:53)
[2021-09-10] MEDS: IPRATROPIUM-ALBUTEROL 3 ML NEB INHALATION SCH ×4 (07:48→19:53)
[2021-09-10] MEDS ORDERED: DEXTROSE 5% IN WATER 100 ML with AMIODARONE 150 MG IV ONE (08:45)
[2021-09-10] MEDS ORDERED: AMIODARONE 360 MG in DEXTROSE 5% IN WATER 200 ML IV ONE ×2 (09:00)
[2021-09-10 09:44] LABS: Anisocytosis Slight; HCT 26.7 % (34.0-46.0); HGB 8.1 gm/dL (11.4-16.0); Hypochromasia Marked; MCH 33.4 pg (25.0-35.0); MCHC 30.3 g/dL (31.0-37.0); MCV 110.4 fL (80.0-100.0); Macrocytosis Marked; Mean Platelet Volume 11.6; RBC 2.42 m/uL (3.80-5.40); RDW 18.3 % (11.5-15.5); WBC 3.4 k/uL (3.8-10.6)
[2021-09-10 09:50] LABS: ALT 65 U/L (4-34); AST 43 U/L (14-36); African American GFR (CKD) >90 (>60 ml/min/1.73 sqM); Albumin 1.9 g/dL (3.5-5.0); Alkaline Phosphatase 127 U/L (38-126); Anion Gap 5 mmol/L; Blood Urea Nitrogen 18 mg/dL (7-17); Calcium 7.3 mg/dL (8.4-10.2); Carbon Dioxide 25 mmol/L (22-30); Chloride 107 mmol/L (98-107); Glucose 140 mg/dL (74-99); Non-African American GFR(CKD) >90 (>60 ml/min/1.73 sqM); Potassium 2.9 mmol/L (3.5-5.1); Sodium 137 mmol/L (137-145); Total Bilirubin 0.7 mg/dL (0.2-1.3)
[2021-09-10 10:09] LABS: Platelet Count 74 k/uL (150-450)
[2021-09-10] MEDS: DILTIAZEM ORAL 30 MG TAB PO SCH ×4 (10:32→19:50)
[2021-09-10] MEDS: METOPROLOL SUCCINATE (ER) 25 MG TAB.ER.24H PO SCH (10:32)
[2021-09-10] MEDS: PANTOPRAZOLE 40 MG/10 ML VIAL IVP SCH (10:32)
[2021-09-10] MEDS: APIXABAN 5 MG TAB PO SCH ×2 (10:32→19:49)
[2021-09-10] MEDS: POTASSIUM BICARBONATE/CIT AC 20 MEQ TABLET.EFF NG-TUBE SCH ×3 (10:35→12:30)
[2021-09-10] MEDS: KETOTIFEN 0.025% OPHTH DROPS 5 ML BTL BOTH EYES SCH ×2 (11:07→19:49)
[2021-09-10 11:59] LABS: Glucose,Whole Blood 194 mg/dL (70-110)
--- NOTE | 2021-09-10 13:31 | P.PN ---
Subjective This is a pleasant 75-year-old with past medical history significant for advanced dementia, postural hypotension, chronic kidney disease, hypertension, paroxysmal atrial fibrillation on Eliquis, Bronchitis. She used to follow in the office with Dr. Smart. We are being consulted for elevated troponin. Patient is a poor historian unable to state why she came to the hospital. 08/26/2021- Cardiology was asked to evaluate patient secondary to atrial fibrillation with RVR. The patient went into A. fib with RVR. She was started on IV Cardizem which was then discontinued On 09/02/2021, rapid response was called secondary to patient becoming unresponsive, short of breath, A fib with RVR. Patient was transferred to the ICU and was intubated. She was eventually extubated and transferred to on 09/07/21. 09/10/2021 Patient seen and examined at bedside, she is lethargic, not answering questions appropriately. Unable to state how she is feeling. She does have advanced dementia and she is very poor historian. She continues to be overloaded. Patient is not improving. Currently in A fib with HR 130s-140s. Patient with 2.2L urine output over the past 24 hours documented Meds: Amiodarone 400 mg twice a day, Cardizem 30 mg every 8 hours, IV Lasix 20 mg daily, metoprolol succinate 25mg daily PHYSICAL EXAM: VITAL SIGNS: Reviewed. GENERAL: In no acute distress. Generalized edema NECK: Supple. +JVD LUNGS: Respirations even and unlabored. Lungs essentially clear to auscultation bilaterally, diminished in bases. HEART: Irregular tachycardic rate and rhythm. S1 and S2 heard. Systolic murmur noted. EXTREMITIES: No clubbing or cyanosis. Peripheral pulses intact. 3+ bilateral extremity edema, Generalized edema. ASSESSMENT: Paroxysmal atrial fibrillation with RVR Sepsis with enterococcus bacteremia Acute on chronic diastolic heart failure, exacerbated by severe protein calorie malnutrition Acute kidney injury, improved Urinary tract infection Leukocytosis Elevated troponin, likely related to acute kidney injury Dementia Altered mental status History asthma/COPD History of Hypertension History of postural hypotension Chronic kidney disease Status post PEG tube placement Severe protein calorie malnutrition PLAN: Patient is not improving, recommend goals of care and comfort care measu res/discussion with family Continue Lasix IV, patient with marginal blood pressures Start IV amiodarone for A fib with RVR, discontinue PO amiodarone secondary to tachycardia Continue Cardizem Ok to hold beta gabriel if hypotensive Eliquis remains on hold secondary to anemia with bleeding around PEG tube site Prognosis is guarded Recommend comfort care measures Nurse practitioner note has been reviewed by physician. Signing provider agrees with the documented findings, assessment, and plan of care. Objective - Vital Signs Vital signs: Vital Signs Temp 98.1 F 09/10/21 03:39 Pulse 139 H 09/10/21 07:49 Resp 34 H 09/10/21 03:39 BP 103/69 09/10/21 03:39 Pulse Ox 100 09/10/21 03:39 FiO2 40 09/10/21 07:49 Intake & Output 09/09/21 09/10/21 09/10/21 18:59 06:59 18:59 Intake Total 1999 Output Total 1175 1050 Balance -1175 950 Weight 72.6 kg Intake: IV 340 Piperacillin-Tazobactam 3 100 .375 gm In Sodium Chloride 0.9% 100 ml @ 25 mls/hr IVPB Q8H [facility] Rx#: [id number] Sodium Chloride 0.9% 1, 240 000 ml @ 20 mls/hr IV . Q24H [facility] Rx#:[id number] Intake, IV Titration 150 Amount DAPTOmycin 390 mg In 50 Sodium Chloride 0.9% 50 ml @ 100 mls/hr IVPB Q24H [facility] Rx#:[id number] Piperacillin-Tazobactam 3 100 .375 gm In Sodium Chloride 0.9% 100 ml @ 25 mls/hr IVPB Q8H [facility] Rx#: [id number] Tube Feeding 1420 Other 90 Output: Urine 1175 1050 Uretheral (Cardoza) 825 1050 Other: Voiding Method Diaper Indwelling Catheter Indwelling Catheter ABP, PAP, CO, CI - Last Documented Arterial Blood Pressure 123/61 - Labs CBC & Chem 7: 09/10/21 08:23 09/10/21 08:23 Labs: Abnormal Lab Results - Last 24 Hours (Table) 09/08/21 09/09/21 09/09/21 Range/Units 14:38 09:03 11:53 WBC 3.6 L (3.8-10.6) k/uL RBC 2.36 L (3.80-5.40) m/uL Hgb 7.9 L (11.4-16.0) gm/dL Hct 25.7 L (34.0-46.0) % MCV 108.9 H (80.0-100.0) fL MCHC 30.8 L (31.0-37.0) g/dL RDW 17.9 H (11.5-15.5) % Plt Count 56 L (150-450) k/uL Lymphocytes # 0.4 L (1.0-4.8) k/uL Macrocytosis Marked A POC Glucose (mg/dL) 161 H (70-110) mg/dL Methylmalonic Acid 1.46 H (<0.40) umol/L 09/09/21 09/10/21 09/10/21 Range/Units 16:45 00:04 06:01 WBC (3.8-10.6) k/uL RBC (3.80-5.40) m/uL Hgb (11.4-16.0) gm/dL Hct (34.0-46.0) % MCV (80.0-100.0) fL MCHC (31.0-37.0) g/dL RDW (11.5-15.5) % Plt Count (150-450) k/uL Lymphocytes # (1.0-4.8) k/uL Macrocytosis POC Glucose (mg/dL) 130 H 157 H 153 H (70-110) mg/dL Methylmalonic Acid (<0.40) umol/L Microbiology - Last 24 Hours (Table) 09/08/21 07:30 Blood Culture - Preliminary Blood No Growth after 24 hours
[2021-09-10] MEDS ORDERED: CYANOCOBALAMIN 1,000 MCG/ML 1 ML VIAL IM ONE (13:52)
--- NOTE | 2021-09-10 13:52 | P.PN ---
Subjective Progress Note Date: 09/10/21 Principal diagnosis: thrombocytopenia, anemia in follow-up today patient is on BiPAP. She aroused to voice, she shook her head no to pain. Objective - Vital Signs Vital signs: Vital Signs Temp 99.5 F 09/10/21 10:15 Pulse 128 H 09/10/21 11:31 Resp 38 H 09/10/21 11:00 BP 110/75 09/10/21 11:00 Pulse Ox 100 09/10/21 11:00 FiO2 40 09/10/21 11:31 Intake & Output 09/09/21 09/10/21 09/10/21 18:59 06:59 18:59 Intake Total 1999 Output Total 1175 1050 275 Balance -1175 950 -275 Weight 72.6 kg Intake: IV 340 Piperacillin-Tazobactam 3 100 .375 gm In Sodium Chloride 0.9% 100 ml @ 25 mls/hr IVPB Q8H [facility] Rx#: [id number] Sodium Chloride 0.9% 1, 240 000 ml @ 20 mls/hr IV . Q24H [facility] Rx#:[id number] Intake, IV Titration 150 Amount DAPTOmycin 390 mg In 50 Sodium Chloride 0.9% 50 ml @ 100 mls/hr IVPB Q24H [facility] Rx#:[id number] Piperacillin-Tazobactam 3 100 .375 gm In Sodium Chloride 0.9% 100 ml @ 25 mls/hr IVPB Q8H [facility] Rx#: [id number] Tube Feeding 1420 Other 90 Output: Urine 1175 1050 275 Uretheral (Cardoza) 825 1050 Other: Voiding Method Diaper Indwelling Catheter Indwelling Catheter ABP, PAP, CO, CI - Last Documented Arterial Blood Pressure 123/61 - Constitutional General appearance: Present: cooperative, mild distress, thin - EENT Eyes: Present: anicteric sclerae ENT: Present: hearing grossly normal - Respiratory Respiratory: bilateral: diminished - Cardiovascular Details: Tachycardia - Gastrointestinal General gastrointestinal: Present: normal bowel sounds, soft - Labs CBC & Chem 7: 09/10/21 08:23 09/10/21 08:23 Labs: Abnormal Lab Results - Last 24 Hours (Table) 09/08/21 09/09/21 09/10/21 Range/Units 14:38 16:45 00:04 WBC (3.8-10.6) k/uL RBC (3.80-5.40) m/uL Hgb (11.4-16.0) gm/dL Hct (34.0-46.0) % MCV (80.0-100.0) fL MCHC (31.0-37.0) g/dL RDW (11.5-15.5) % Plt Count (150-450) k/uL Macrocytosis Potassium (3.5-5.1) mmol/L BUN (7-17) mg/dL Creatinine (0.52-1.04) mg/dL Glucose (74-99) mg/dL POC Glucose (mg/dL) 130 H 157 H (70-110) mg/dL Calcium (8.4-10.2) mg/dL AST (14-36) U/L ALT (4-34) U/L Alkaline Phosphatase (38-126) U/L Total Protein (6.3-8.2) g/dL Albumin (3.5-5.0) g/dL Methylmalonic Acid 1.46 H (<0.40) umol/L 09/10/21 09/10/21 09/10/21 Range/Units 06:01 08:23 08:23 WBC 3.4 L (3.8-10.6) k/uL RBC 2.42 L (3.80-5.40) m/uL Hgb 8.1 L (11.4-16.0) gm/dL Hct 26.7 L (34.0-46.0) % MCV 110.4 H (80.0-100.0) fL MCHC 30.3 L (31.0-37.0) g/dL RDW 18.3 H (11.5-15.5) % Plt Count 74 L (150-450) k/uL Macrocytosis Marked A Potassium 2.9 L (3.5-5.1) mmol/L BUN 18 H (7-17) mg/dL Creatinine 0.39 L (0.52-1.04) mg/dL Glucose 140 H (74-99) mg/dL POC Glucose (mg/dL) 153 H (70-110) mg/dL Calcium 7.3 L (8.4-10.2) mg/dL AST 43 H (14-36) U/L ALT 65 H (4-34) U/L Alkaline Phosphatase 127 H (38-126) U/L Total Protein 4.0 L (6.3-8.2) g/dL Albumin 1.9 L (3.5-5.0) g/dL Methylmalonic Acid (<0.40) umol/L 09/10/21 Range/Units 11:57 WBC (3.8-10.6) k/uL RBC (3.80-5.40) m/uL Hgb (11.4-16.0) gm/dL Hct (34.0-46.0) % MCV (80.0-100.0) fL MCHC (31.0-37.0) g/dL RDW (11.5-15.5) % Plt Count (150-450) k/uL Macrocytosis Potassium (3.5-5.1) mmol/L BUN (7-17) mg/dL Creatinine (0.52-1.04) mg/dL Glucose (74-99) mg/dL POC Glucose (mg/dL) 194 H (70-110) mg/dL Calcium (8.4-10.2) mg/dL AST (14-36) U/L ALT (4-34) U/L Alkaline Phosphatase (38-126) U/L Total Protein (6.3-8.2) g/dL Albumin (3.5-5.0) g/dL Methylmalonic Acid (<0.40) umol/L Microbiology - Last 24 Hours (Table) 09/08/21 07:30 Blood Culture - Preliminary Blood No Growth after 48 hours Assessment and Plan (1) Anemia Current Visit: Yes Status: Acute Priority: High Code(s): D64.9 - ANEMIA, UNSPECIFIED SNOMED Code(s): 520888699 (2) Thrombocytopenia Current Visit: Yes Status: Acute Priority: High Code(s): D69.6 - THROMBOCYTOPENIA, UNSPECIFIED SNOMED Code(s): 559242022 Plan: Hemoglobin 8.1 today. No bleeding reported. Continue to monitor CBC. Iron studies reviewed, showing elevated saturation on 08/19. Patient is status post 2 units of PRBCs on 09/02. No transfusions needed since. Transfuse for hemoglobin less than 7 unless patient is symptomatic. Ferritin was elevated at 772. No iron deficiency suspected. Methylmalonic acid returned elevated. Possible B12 absorption. Parenteral B12 ordered. Platelets increased to 74,000 today. HIT ab neg. Hemoglobin is stable today. From a Hematology standpoint ok to continue eliquis at this time with close monitoring for any bleeding. CBC daily. No laboratory evidence of DIC. Fibrinogen 772 on 09/09, coags have remained near normal. Continue to monitor intermittently. Marrow suppression 2/2 meds, abx, repeated infections is likely differential. As pt recovers, would anticipate stabilization of counts. If after recovery patient has persistently low blood counts additional lab workup can be ordered.
[2021-09-10 14:06] LABS: Band Neutrophils % 2 %; Lymphocytes # (M) 0.37 k/uL (1.0-4.8); Monocytes # (M) 0.14 k/uL (0-1.0); Neutrophils % (M) 84 %; Nucleated Red Blood Cells 1 /100 WBC (0-0); Total Cells Counted 200
[2021-09-10] MEDS ORDERED: AMIODARONE 450 MG in DEXTROSE 5% IN WATER 250 ML IV SCH ×2 (15:00)
[2021-09-10] MEDS: AMIODARONE 450 MG in DEXTROSE 5% IN WATER 250 ML IV SCH ×2 (16:09)
[2021-09-10 16:14] LABS: Glucose,Whole Blood 197 mg/dL (70-110)
--- NOTE | 2021-09-10 18:15 | P.PN ---
Progress Note - Text Progress Note Date: 09/10/21 Interval history: I'm rounding for Dr. Lalo Nguyen September 04: ICU: Extubated earlier today. Currently on BiPAP. Lethargic. Sitting of 12/6/30%. PEG tube feeding. Following commands. Edema present. Sinus rhythm with PACs. September 05: ICU: Able to carry out simple conversation. On nasal cannula. Went back into A. fib last night with rapid ventricular rate. PVCs. PEG tube feeding at 30 mL an hour. September 06: ICU: Carrying out simple conversation. Sinus rhythm. PEG tube feeding. September 07: ICU: Patient laying in bed. Awake. Answering simple questions. Tube feeding at 33 mL an hour that is at goal. On IV Lasix. Telemetry sinus rhythm. Beta for congested cough. September 08: 2 feeding at 55 mL an hour. Increase in shortness of breath. On BiPAP. Atrial fibrillation rapid ventricular rate. Did not tolerate applesauce yesterday. Up in a bed. Tired. IV amiodarone started by cardiology. Active Medications Acetaminophen (Acetaminophen Tab 325 Mg Tab) 650 mg PO Q6HR PRN PRN Reason: Mild Pain or Fever > 100.5 Last Admin: 09/10/21 00:24 Dose: 650 mg Albuterol/Ipratropium (Ipratropium-Albuterol 3 Ml Neb) 3 ml INHALATION RT-Q2H PRN PRN Reason: Shortness Of Breath Or Wheezing Albuterol/Ipratropium (Ipratropium-Albuterol 3 Ml Neb) 3 ml INHALATION RT-QID [facility] Last Admin: 09/10/21 15:53 Dose: 3 ml Apixaban (Apixaban 5 Mg Tab) 5 mg PO BID [facility]; Protocol Last Admin: 09/10/21 10:32 Dose: 5 mg Budesonide/Formoterol Fumarate (Symbicort 160-4.5 Mcg Inhaler) 2 puff INHALATION RT-BID [facility] Last Admin: 09/10/21 07:48 Dose: Not Given Diltiazem HCl (Diltiazem Oral 30 Mg Tab) 30 mg PO QID [facility] Last Admin: 09/10/21 16:13 Dose: 30 mg Furosemide (Furosemide 10 Mg/Ml 2 Ml Vial) 20 mg IV Q8HR [facility] Last Admin: 09/10/21 16:12 Dose: 20 mg Hydromorphone HCl (Hydromorphone 0.5 Mg/0.5 Ml Syringe) 0.5 mg IVP Q4HR PRN PRN Reason: Pain Last Admin: 09/09/21 01:47 Dose: 0.5 mg Sodium Chloride (Saline 0.9%) 1,000 mls @ 20 mls/hr IV .Q24H [facility] Last Admin: 09/10/21 07:05 Dose: 20 mls/hr Daptomycin 390 mg/ Sodium (Chloride) 50 mls @ 100 mls/hr IVPB Q24H [facility]; Protocol Last Admin: 09/09/21 22:46 Dose: 100 mls/hr Piperacillin Sod/Tazobactam (Sod 3.375 gm/ Sodium Chloride) 100 mls @ 25 mls/hr IVPB Q8H [facility]; Protocol Last Admin: 09/10/21 05:44 Dose: 25 mls/hr Amiodarone HCl 450 mg/ (Dextrose/Water) 250 mls @ 16.667 mls/hr IV .Q15H [facility]; Protocol Stop: 09/11/21 10:59 Last Admin: 09/10/21 16:09 Dose: 0.5 mg/min, 16.667 mls/hr Insulin Aspart (Insulin Aspart (Novolog) 100 Unit/Ml Vial) 0 unit SQ Q6HR [facility]; Protocol Last Admin: 09/10/21 16:38 Dose: 1 unit Ketotifen Fumarate (Ketotifen 0.025% Ophth Drops 5 Ml Btl) 2 drops BOTH EYES BID [facility] Last Admin: 09/10/21 11:07 Dose: 2 drops Miscellaneous Information (Potassium Replacement Protocol 1 Each Misc) 1 each MISCELLANE DAILY PRN; Protocol PRN Reason: Per Protocol Montelukast Sodium (Montelukast 10 Mg Tab) 10 mg PO HS [facility] Last Admin: 09/09/21 20:18 Dose: 10 mg Naloxone HCl (Naloxone 0.4 Mg/Ml 1 Ml Vial) 0.2 mg IV Q2M PRN PRN Reason: Opioid Reversal Pantoprazole Sodium (Pantoprazole 40 Mg/10 Ml Vial) 40 mg IVP DAILY [facility] Last Admin: 09/10/21 10:32 Dose: 40 mg Sucralfate (Sucralfate 1 Gm Tab) 1 gm PO AC-BID [facility] Last Admin: 09/10/21 16:12 Dose: 1 gm On examination: VITAL SIGNS: 99.5, 140, 30, 177, 100% on BiPAP GENERAL APPEARANCE: Sitting up in bed, short of breath EYES: Pupils equal. Conjunctiva normal. NECK: JVD unable to assess. Mass not palpable. RESPIRATORY: Respiratory effort increased. Unable to speak in full sentences, accessory muscles of working, decreased breath sounds prolonged expiration CARDIOVASCULAR: Heart sounds are regular. No edema. ABDOMEN: Soft. Liver and spleen not palpable. No tenderness. No mass palpable. Psychiatry: Difficult to answer questions as short of breath. Neurological: Cranial nerves grossly intact. Following simple commands. INVESTIGATIONS, reviewed in the clinical context: September 10: WBC 3.4 hemoglobin 8.1 platelets 74 potassium 2.9 BUN 18 creatinine 0.39 September 07: WBC 4.4 hemoglobin 8.9 platelets 38 potassium 4.1 creatinine 0.34 albumin 1.9 September 05: White count 8.2 hemoglobin 9.4 platelets 45 potassium 4.3 BUN 20 creatinine 0.48 AST 55 ALT 119 White count 10.9 hemoglobin 9 platelets 49 sodium 140 potassium 3 BUN 28 creatinine 0.61 AST 55 ALT 136 Assessment and plan: -Paroxysmal atrial fibrillation currently with rapid ventricular rate. Uncontrolled Eliquis 5 mg twice a day. Started IV amiodarone. Cardizem by mouth -Acute hypoxic respiratory failure: Requiring BiPAP -Sepsis IV Zosyn -Septic shock: Recovered Patient received levo fed -Acute kidney injury secondary to hemodynamic ATN.: Improved Creatinine had peaked at 1.31. -Moderate persistent Asthma, exacerbation Symbicort 160/4.52 puffs twice a day DuoNeb -Mild cognitive impairment from early dementia -Hyperlipidemia -Acute blood loss anemia secondary to bleeding at PEG tube site -Essential hypertension Currently off antihypertensive -Nephrolithiasis, asymptomatic -Primary osteoarthritis Pain control as needed -Chronic gait dysfunction uses a walker Fall precautions -Thrombocytopenia, likely from underlying infection. Patient is on eliquis. Follow CBC -Acute medical debility -Full code IV Zosyn. BiPAP. A. fib with a rapid ventricular rate. Put on IV amiodarone. Prognosis guarded. Follow-up with pulmonary. Cardiology.
[2021-09-10] MEDS: MONTELUKAST 10 MG TAB PO SCH (19:50)
[2021-09-10 22:59] LABS: Glucose,Whole Blood 152 mg/dL (70-110)
[2021-09-10] MEDS: SODIUM CHLORIDE 0.9% IVPB SCH (23:19)
[2021-09-10] MEDS: DAPTOMYCIN IVPB SCH (23:19)
[2021-09-11] MEDS: INSULIN ASPART (NovoLOG) 100 UNIT/ML VIAL SQ SCH ×5 (00:54→22:55)
[2021-09-11] MEDS: ACETAMINOPHEN TAB 325 MG TAB PO PRN ×2 (03:18→20:17)
[2021-09-11 06:06] LABS: Glucose,Whole Blood 143 mg/dL (70-110)
[2021-09-11] MEDS: SODIUM CHLORIDE 0.9% 1,000 ML IV SCH (06:18)
[2021-09-11] MEDS: SUCRALFATE 1 GM TAB PO SCH ×2 (06:18→18:22)
[2021-09-11] MEDS: PIPERACILLIN-TAZOBACTAM 3.375 GM in SODIUM CHLORIDE 0.9% 100 ML IVPB SCH ×3 (06:18→21:31)
[2021-09-11] MEDS: AMIODARONE 450 MG in DEXTROSE 5% IN WATER 250 ML IV SCH ×2 (06:19)
--- NOTE | 2021-09-11 08:16 | PN ---
PROGRESS NOTE A 75-year-old female continues to go in atrial fibrillation. She has severe pulmonary fibrosis. She did wear oxygen and knows that she is gasping for air during sleep. She used to wear a BiPAP machine when she sleeps. I am going to order . Her kidney function has been followed by the kidney doctor, vice president lending further breathing. She has sepsis due to multiple infections, seen by Dr. Marks. She has sputum culture, Pseudomonas, Enterococcus faecalis to the blood culture; and urine cultures, E coli infection, sepsis, maybe some septic shock, pulmonary fibrosis, altered mental status. Pulmonary fibrosis with most likely sleep apnea, should need to wear a BiPAP. Continue on broad-spectrum antibiotics. Transfuse if hemoglobin goes below 7 . White count is low at 3.4, platelets are low at 74, potassium is low possibly replace this. Albumin is severely low. PEG tube feedings, which will have to be continued. Prognosis is extremely guarded. She does not appear to be improving on multiple antibiotics BiPAP to see how she does. Continue with antibiotics. Continue with tube feedings. Prognosis extremely guarded. MMODL / IJN: [id number] /
[2021-09-11] MEDS: PANTOPRAZOLE 40 MG/10 ML VIAL IVP SCH (08:19)
[2021-09-11] MEDS: APIXABAN 5 MG TAB PO SCH (08:20)
[2021-09-11] MEDS: DILTIAZEM ORAL 30 MG TAB PO SCH ×4 (08:20→20:17)
[2021-09-11] MEDS: KETOTIFEN 0.025% OPHTH DROPS 5 ML BTL BOTH EYES SCH ×2 (08:20→20:17)
[2021-09-11] MEDS: FUROSEMIDE 10 MG/ML 2 ML VIAL IV SCH ×3 (08:20→22:55)
[2021-09-11] MEDS: SYMBICORT 160-4.5 MCG INHALER INHALATION SCH ×2 (08:41→20:53)
[2021-09-11] MEDS: IPRATROPIUM-ALBUTEROL 3 ML NEB INHALATION SCH ×4 (08:41→20:53)
[2021-09-11 11:34] LABS: Anisocytosis Slight; HCT 22.9 % (34.0-46.0); Hypochromasia Marked; MCH 33.3 pg (25.0-35.0); MCHC 30.4 g/dL (31.0-37.0); MCV 109.5 fL (80.0-100.0); Macrocytosis Marked; Mean Platelet Volume 12.4; RBC 2.09 m/uL (3.80-5.40); RDW 18.7 % (11.5-15.5)
[2021-09-11 12:04] LABS: Platelet Count 83 k/uL (150-450)
[2021-09-11 12:06] LABS: Glucose,Whole Blood 157 mg/dL (70-110)
[2021-09-11] MEDS: AMIODARONE 200 MG TAB PO SCH ×2 (12:19→20:17)
--- NOTE | 2021-09-11 12:31 | P.PN ---
Subjective This is a pleasant 75-year-old with past medical history significant for advanced dementia, postural hypotension, chronic kidney disease, hypertension, paroxysmal atrial fibrillation on Eliquis, Bronchitis. She used to follow in the office with Dr. Smart. We are being consulted for elevated troponin. Patient is a poor historian unable to state why she came to the hospital. 08/26/2021- Cardiology was asked to evaluate patient secondary to atrial fibrillation with RVR. The patient went into A. fib with RVR. She was started on IV Cardizem which was then discontinued On 09/02/2021, rapid response was called secondary to patient becoming unresponsive, short of breath, A fib with RVR. Patient was transferred to the ICU and was intubated. She was eventually extubated and transferred to on 09/07/21. 09/11/2021 Patient seen and examined at bedside, she is lethargic, not answering questions appropriately. Unable to state how she is feeling. She does have advanced dementia and she is very poor historian. She continues to be overloaded. Patient is not improving. Currently in A fib, HR have improved 90s-low 100s. Meds: IV amiodarone, Cardizem 30 mg every 8 hours, IV Lasix 20 mg daily PHYSICAL EXAM: VITAL SIGNS: Reviewed. GENERAL: In no acute distress. Generalized edema NECK: Supple. +JVD LUNGS: Respirations even and unlabored. Lungs essentially clear to auscultation bilaterally, diminished in bases. HEART: Irregular tachycardic rate and rhythm. S1 and S2 heard. Systolic murmur noted. EXTREMITIES: No clubbing or cyanosis. Peripheral pulses intact. 3+ bilateral extremity edema, Generalized edema. ASSESSMENT: Paroxysmal atrial fibrillation with RVR Sepsis with enterococcus bacteremia Acute on chronic diastolic heart failure, exacerbated by severe protein calorie malnutrition Acute kidney injury, improved Urinary tract infection Leukocytosis Elevated troponin, likely related to acute kidney injury Dementia Altered mental status History asthma/COPD History of Hypertension History of postural hypotension Chronic kidney disease Status post PEG tube placement Severe protein calorie malnutrition PLAN: Patient is not improving, recommend goals of care and comfort care measures/ discussion with family Ok to continue Lasix IV, patient with marginal blood pressures Transition to PO Amiodarone 400mg BID Continue Cardizem Ok to hold beta gabriel if hypotensive, if BP improve can add metoprolol tartrate low dose secondary to hypotension Eliquis remains on hold secondary to anemia with bleeding around PEG tube site Prognosis is guarded We Recommend comfort care measures No further changes from a cardiology perspective, we will follow the patient as needed at this time. Nurse practitioner note has been reviewed by physician. Signing provider agrees with the documented findings, assessment, and plan of care. Objective - Vital Signs Vital signs: Vital Signs Temp 98.6 F 09/11/21 08:00 Pulse 100 09/11/21 08:55 Resp 32 H 09/11/21 08:00 BP 106/61 09/11/21 08:00 Pulse Ox 100 09/11/21 08:00 FiO2 40 09/11/21 08:42 Intake & Output 09/10/21 09/11/21 09/11/21 18:59 06:59 18:59 Intake Total 460 496.116 10 Output Total 925 925 550 Balance -465 -428.884 -540 Weight 72.6 kg Intake: IV 20 40 10 Invasive Line 3 20 30 10 Invasive Line 4 10 Intake, IV Titration 236.116 Amount Amiodarone 450 mg In 236.116 Dextrose 5% in Water 250 ml @ 0.5 MG/MIN 16.667 mls/hr IV .Q15H [facility] Rx#: [id number] Oral 0 0 Tube Feeding 440 220 Output: Urine 925 925 550 Other: Voiding Method Indwelling Catheter Indwelling Catheter Indwelling Catheter # Bowel Movements 2 1 ABP, PAP, CO, CI - Last Documented Arterial Blood Pressure 123/61 - Labs CBC & Chem 7: 09/11/21 10:12 09/10/21 08:23 Labs: Abnormal Lab Results - Last 24 Hours (Table) 09/10/21 09/10/21 09/10/21 Range/Units 08:23 11:57 16:12 Lymphocytes # (Manual) 0.37 L (1.0-4.8) k/uL Nucleated RBCs 1 H (0-0) /100 WBC POC Glucose (mg/dL) 194 H 197 H (70-110) mg/dL 09/10/21 09/11/21 Range/Units 22:57 06:03 Lymphocytes # (Manual) (1.0-4.8) k/uL Nucleated RBCs (0-0) /100 WBC POC Glucose (mg/dL) 152 H 143 H (70-110) mg/dL Microbiology - Last 24 Hours (Table) 09/08/21 07:30 Blood Culture - Preliminary Blood No Growth after 72 hours
[2021-09-11 12:43] LABS: ALT 62 U/L (4-34); AST 57 U/L (14-36); African American GFR (CKD) >90 (>60 ml/min/1.73 sqM); Albumin 1.7 g/dL (3.5-5.0); Alkaline Phosphatase 121 U/L (38-126); Anion Gap 5 mmol/L; Blood Urea Nitrogen 17 mg/dL (7-17); Calcium 7.1 mg/dL (8.4-10.2); Carbon Dioxide 27 mmol/L (22-30); Chloride 103 mmol/L (98-107); Glucose 133 mg/dL (74-99); Magnesium 1.9 mg/dL (1.6-2.3); Non-African American GFR(CKD) >90 (>60 ml/min/1.73 sqM); Potassium 3.2 mmol/L (3.5-5.1); Sodium 135 mmol/L (137-145); Total Bilirubin 0.9 mg/dL (0.2-1.3); Total Protein 3.7 g/dL (6.3-8.2)
[2021-09-11 13:23] LABS: Band Neutrophils % 1 %; Eosinophils # (M) 0.04 k/uL (0-0.7); Lymphocytes # (M) 0.46 k/uL (1.0-4.8); Monocytes # (M) 0.04 k/uL (0-1.0); Neutrophils % (M) 84 %; Nucleated Red Blood Cells 2 /100 WBC (0-0); Polychromasia Present; Total Cells Counted 100; WBC 3.5 k/uL (3.8-10.6)
[2021-09-11 13:24] LABS: Large Platelets Present
--- NOTE | 2021-09-11 14:19 | P.PN ---
Subjective Progress Note Date: 09/11/21 HEMOGLOBIN DOWN TO 7, STAT REDRAW ORDERED Objective - Vital Signs Vital signs: Vital Signs Temp 98.6 F 09/11/21 08:00 Pulse 102 H 09/11/21 12:26 Resp 32 H 09/11/21 08:00 BP 106/61 09/11/21 08:00 Pulse Ox 100 09/11/21 08:00 FiO2 40 09/11/21 12:15 Intake & Output 09/10/21 09/11/21 09/11/21 18:59 06:59 18:59 Intake Total 460 496.116 120.28 Output Total 925 925 550 Balance -465 -428.884 -429.72 Weight 72.6 kg Intake: IV 20 40 10 Invasive Line 3 20 30 10 Invasive Line 4 10 Intake, IV Titration 236.116 110.28 Amount Amiodarone 450 mg In 236.116 110.28 Dextrose 5% in Water 250 ml @ 0.5 MG/MIN 16.667 mls/hr IV .Q15H [facility] Rx#: [id number] Oral 0 0 Tube Feeding 440 220 Output: Urine 925 925 550 Other: Voiding Method Indwelling Catheter Indwelling Catheter Indwelling Catheter # Bowel Movements 2 1 ABP, PAP, CO, CI - Last Documented Arterial Blood Pressure 123/61 - Exam - Constitutional General appearance: Present: cooperative, mild distress, thin - EENT Eyes: Present: anicteric sclerae ENT: Present: hearing grossly normal - Respiratory Respiratory: bilateral: diminished - Cardiovascular Details: Tachycardia - Gastrointestinal General gastrointestinal: Present: normal bowel sounds, soft - Labs CBC & Chem 7: 09/11/21 10:12 09/11/21 10:12 Labs: Abnormal Lab Results - Last 24 Hours (Table) 09/10/21 09/10/21 09/10/21 Range/Units 08:23 16:12 22:57 WBC (3.8-10.6) k/uL RBC (3.80-5.40) m/uL Hgb (11.4-16.0) gm/dL Hct (34.0-46.0) % MCV (80.0-100.0) fL MCHC (31.0-37.0) g/dL RDW (11.5-15.5) % Plt Count (150-450) k/uL Lymphocytes # (Manual) 0.37 L (1.0-4.8) k/uL Nucleated RBCs 1 H (0-0) /100 WBC Macrocytosis Sodium (137-145) mmol/L Potassium (3.5-5.1) mmol/L Creatinine (0.52-1.04) mg/dL Glucose (74-99) mg/dL POC Glucose (mg/dL) 197 H 152 H (70-110) mg/dL Calcium (8.4-10.2) mg/dL AST (14-36) U/L ALT (4-34) U/L Total Protein (6.3-8.2) g/dL Albumin (3.5-5.0) g/dL 09/11/21 09/11/21 09/11/21 Range/Units 06:03 10:12 10:12 WBC 3.6 L (3.8-10.6) k/uL RBC 2.09 L (3.80-5.40) m/uL Hgb 7.0 L (11.4-16.0) gm/dL Hct 22.9 L (34.0-46.0) % MCV 109.5 H (80.0-100.0) fL MCHC 30.4 L (31.0-37.0) g/dL RDW 18.7 H (11.5-15.5) % Plt Count 83 L (150-450) k/uL Lymphocytes # (Manual) (1.0-4.8) k/uL Nucleated RBCs (0-0) /100 WBC Macrocytosis Marked A Sodium 135 L (137-145) mmol/L Potassium 3.2 L (3.5-5.1) mmol/L Creatinine 0.44 L (0.52-1.04) mg/dL Glucose 133 H (74-99) mg/dL POC Glucose (mg/dL) 143 H (70-110) mg/dL Calcium 7.1 L (8.4-10.2) mg/dL AST 57 H (14-36) U/L ALT 62 H (4-34) U/L Total Protein 3.7 L (6.3-8.2) g/dL Albumin 1.7 L (3.5-5.0) g/dL 09/11/21 Range/Units 12:04 WBC (3.8-10.6) k/uL RBC (3.80-5.40) m/uL Hgb (11.4-16.0) gm/dL Hct (34.0-46.0) % MCV (80.0-100.0) fL MCHC (31.0-37.0) g/dL RDW (11.5-15.5) % Plt Count (150-450) k/uL Lymphocytes # (Manual) (1.0-4.8) k/uL Nucleated RBCs (0-0) /100 WBC Macrocytosis Sodium (137-145) mmol/L Potassium (3.5-5.1) mmol/L Creatinine (0.52-1.04) mg/dL Glucose (74-99) mg/dL POC Glucose (mg/dL) 157 H (70-110) mg/dL Calcium (8.4-10.2) mg/dL AST (14-36) U/L ALT (4-34) U/L Total Protein (6.3-8.2) g/dL Albumin (3.5-5.0) g/dL Microbiology - Last 24 Hours (Table) 09/08/21 07:30 Blood Culture - Preliminary Blood No Growth after 72 hours Assessment and Plan Plan: Assessment and Plan (1) Anemia Current Visit: Yes Status: Acute Priority: High Code(s): D64.9 - ANEMIA, UNSPECIFIED SNOMED Code(s): 118984175 (2) Thrombocytopenia Current Visit: Yes Status: Acute Priority: High Code(s): D69.6 - THROMBOCYTOPENIA, UNSPECIFIED SNOMED Code(s): 461900409 Plan: Hemoglobin has dropped from8.1 to 7 today, therefore a stat redraw ordered No bleeding reported. Continue to monitor CBC. Iron studies reviewed, showing elevated saturation on 08/19. Patient is status post 2 units of PRBCs on 09/02. No transfusions needed since. Transfuse for hemoglobin less than 7 unless patient is symptomatic. Ferritin was elevated at 772. No iron deficiency suspected. Methylmalonic acid returned elevated. Possible B12 absorption. Parenteral B12 given Platelets increased, HIT ab neg. Eliquis was restarted yesterday, if hemoglobin is still showing a point or more drop - RE_HOLD AC therapy No signs of DIC Continue to monitor CBC daily Marrow suppression 2/2 meds, abx, repeated infections is likely differential. As pt recovers, would anticipate stabilization of counts. If after recovery patient has persistently low blood counts additional lab workup can be ordered. Spoke to nursing if hemoglobin redraw comes back 7 or below plan for PRBC transfusion and re-hold eliquis
[2021-09-11 14:24] LABS: Anisocytosis Slight; Basophils % (A) 1 %; Eosinophils % (A) 1 %; HCT 22.4 % (34.0-46.0); Hypochromasia Marked; Lymphocytes # (A) 0.6 k/uL (1.0-4.8); Lymphocytes % (A) 16 %; MCH 32.9 pg (25.0-35.0); MCHC 30.5 g/dL (31.0-37.0); MCV 107.8 fL (80.0-100.0); Macrocytosis Marked; Mean Platelet Volume 12.5; Monocytes # (A) 0.1 k/uL (0-1.0); Monocytes % (A) 3 %; Neutrophils % (A) 77 %; Platelet Count 101 k/uL (150-450); RBC 2.08 m/uL (3.80-5.40); RDW 18.3 % (11.5-15.5); WBC 3.9 k/uL (3.8-10.6)
[2021-09-11 14:28] LABS: HGB 6.8 gm/dL (11.4-16.0)
--- NOTE | 2021-09-11 14:30 | XR ---
EXAMINATION TYPE: XR chest 1V portable DATE OF EXAM: 09/11/2021 CLINICAL HISTORY: Difficulty breathing progress study. TECHNIQUE: Single AP portable upright view of the chest is obtained. COMPARISON: Chest x-ray from 3 days earlier and older studies. FINDINGS: Persistent bilateral mid to lower lung increased opacities. Persistent silhouetting of the right and left heart borders. Persistent atherosclerotic and prominent aortic knob. Osseous structur es are intact. IMPRESSION: Persistent bilateral mid to lower lung acute infiltrates and/or atelectasis with probable small to moderate size bilateral pleural effusions. No significant change from most recent x-ray.
[2021-09-11 14:57] LABS: Poikilocytosis (M) Present; Polychromasia Present
[2021-09-11 17:06] LABS: Glucose,Whole Blood 133 mg/dL (70-110)
[2021-09-11] MEDS: POTASSIUM BICARBONATE/CIT AC 20 MEQ TABLET.EFF NG-TUBE SCH ×2 (18:22→18:26)
--- NOTE | 2021-09-11 19:15 | P.PN ---
Progress Note - Text Progress Note Date: 09/11/21 Interval history: I'm rounding for Dr. Lalo Nguyen September 04: ICU: Extubated earlier today. Currently on BiPAP. Lethargic. Sitting of 12/6/30%. PEG tube feeding. Following commands. Edema present. Sinus rhythm with PACs. September 05: ICU: Able to carry out simple conversation. On nasal cannula. Went back into A. fib last night with rapid ventricular rate. PVCs. PEG tube feeding at 30 mL an hour. September 06: ICU: Carrying out simple conversation. Sinus rhythm. PEG tube feeding. September 07: ICU: Patient laying in bed. Awake. Answering simple questions. Tube feeding at 33 mL an hour that is at goal. On IV Lasix. Telemetry sinus rhythm. Beta for congested cough. September 08: 2 feeding at 55 mL an hour. Increase in shortness of breath. On BiPAP. Atrial fibrillation rapid ventricular rate. Did not tolerate applesauce yesterday. Up in a bed. Tired. IV amiodarone started by cardiology. September 11: 2 feeding at goal. Remains short of breath. Not eating. On BiPAP. It is out of atrial fibrillation. Tired. I spoke to Dr. Melissa Mcbride who is currently out of town. His prognosis is poor. I spoke to Dr. Lalo Nguyen the patient is well known felt patient be appropriate for comfort care. I spoke spoke to patient's daughter Analisa Danielson, is coming in to see the patient. I did discuss case about considering hospice. Current medications reviewed On examination: VITAL SIGNS: Afebrile, 116, 32, 108/66, 90% on BiPAP GENERAL APPEARANCE: Sitting up in bed, very short of breath, tired EYES: Pupils equal. Conjunctiva normal. NECK: JVD unable to assess. Mass not palpable. RESPIRATORY: Respiratory effort increased. Unable to speak in full sentences, accessory muscles of working, decreased breath sounds prolonged expiration CARDIOVASCULAR: Heart sounds are regular. No edema. ABDOMEN: Soft. Liver and spleen not palpable. No tenderness. No mass palpable. Psychiatry: Difficult to answer questions as short of breath. Neurological: Cranial nerves grossly intact. Following simple commands. INVESTIGATIONS, reviewed in the clinical context: September 11: WBC 3.5 hemoglobin 7 platelets 83 potassium 3.2 creatinine 0.44 September 10: WBC 3.4 hemoglobin 8.1 platelets 74 potassium 2.9 BUN 18 creatinine 0.39 September 07: WBC 4.4 hemoglobin 8.9 platelets 38 potassium 4.1 creatinine 0.34 albumin 1.9 September 05: White count 8.2 hemoglobin 9.4 platelets 45 potassium 4.3 BUN 20 creatinine 0.48 AST 55 ALT 119 White count 10.9 hemoglobin 9 platelets 49 sodium 140 potassium 3 BUN 28 cr eatinine 0.61 AST 55 ALT 136 Assessment and plan: -Paroxysmal atrial fibrillation currently with rapid ventricular rate. Uncontrolled Eliquis 5 mg twice a day. Changed over to by mouth amiodarone. Cardizem by mouth -Acute hypoxic respiratory failure: : Slow to respond Requiring BiPAP -Sepsis IV Zosyn -Septic shock: Recovered Patient received levo fed -Acute kidney injury secondary to hemodynamic ATN.: Improved Creatinine had peaked at 1.31. -Moderate persistent Asthma, exacerbation: Slow to respond Symbicort 160/4.52 puffs twice a day DuoNeb -Mild cognitive impairment from early dementia -Hyperlipidemia -Acute blood loss anemia secondary to bleeding at PEG tube site -Essential hypertension Currently off antihypertensive -Nephrolithiasis, asymptomatic -Primary osteoarthritis Pain control as needed -Chronic gait dysfunction uses a walker Fall precautions -Thrombocytopenia, likely from underlying infection. Patient is on eliquis. Follow CBC -Acute medical debility -No code IV Zosyn. BiPAP. A. fib with a rapid ventricular rate. Changed over to by mouth amiodarone.. Prognosis guarded. Sports without neil Nguyen and Dr. Melissa Mcbride. Both feel that patient is doing poorly. Advanced care planning: Spoke to patient is Dr. Viktoriya Danielson. Updated patient's overall condition. Doing poorly. Recommending looking into hospice. And acute the patient comfortable. Did inform her about Dr. Nguyen and Dr. Melissa Mcbride's. Communicated with the staff. Time spent about 25 minutes
[2021-09-11] MEDS: MONTELUKAST 10 MG TAB PO SCH (20:17)
[2021-09-11] MEDS: HYDROmorphone 0.5 MG/0.5 ML SYRINGE IVP PRN (20:55)
[2021-09-11] MEDS: SODIUM CHLORIDE 0.9% IVPB SCH (22:01)
[2021-09-11] MEDS: DAPTOMYCIN IVPB SCH (22:01)
[2021-09-11 22:52] LABS: Glucose,Whole Blood 189 mg/dL (70-110)
[2021-09-12 06:00] LABS: Glucose,Whole Blood 175 mg/dL (70-110)
[2021-09-12] MEDS: SODIUM CHLORIDE 0.9% 1,000 ML IV SCH (06:04)
[2021-09-12] MEDS: INSULIN ASPART (NovoLOG) 100 UNIT/ML VIAL SQ SCH (06:06)
[2021-09-12] MEDS: SUCRALFATE 1 GM TAB PO SCH (06:06)
[2021-09-12] MEDS: PIPERACILLIN-TAZOBACTAM 3.375 GM in SODIUM CHLORIDE 0.9% 100 ML IVPB SCH (06:06)
[2021-09-12] MEDS: IPRATROPIUM-ALBUTEROL 3 ML NEB INHALATION SCH ×2 (08:26→11:57)
[2021-09-12] MEDS: SYMBICORT 160-4.5 MCG INHALER INHALATION SCH (08:26)
[2021-09-12 09:20] LABS: Anisocytosis Slight; Basophils % (A) 0 %; Eosinophils % (A) 1 %; HCT 29.5 % (34.0-46.0); Hypochromasia Marked; Lymphocytes # (A) 0.8 k/uL (1.0-4.8); Lymphocytes % (A) 20 %; MCH 31.3 pg (25.0-35.0); MCHC 30.7 g/dL (31.0-37.0); Macrocytosis Moderate; Mean Platelet Volume 12.1; Monocytes # (A) 0.1 k/uL (0-1.0); Monocytes % (A) 4 %; Neutrophils # (A) 2.8 k/uL (1.3-7.7); Neutrophils % (A) 71 %; Platelet Count 112 k/uL (150-450); Poikilocytosis Slight; RBC 2.89 m/uL (3.80-5.40); RDW 19.8 % (11.5-15.5)
[2021-09-12 09:23] VITALS: BP 102/70; PULSE 132; RESP 40; TEMP 98.8
[2021-09-12] MEDS: PANTOPRAZOLE 40 MG/10 ML VIAL IVP SCH (09:24)
[2021-09-12] MEDS: AMIODARONE 200 MG TAB PO SCH ×2 (09:24→09:25)
[2021-09-12] MEDS: FUROSEMIDE 10 MG/ML 2 ML VIAL IV SCH (09:25)
[2021-09-12] MEDS: HYDROmorphone 0.5 MG/0.5 ML SYRINGE IVP PRN (09:25)
[2021-09-12] MEDS: DILTIAZEM ORAL 30 MG TAB PO SCH (09:26)
[2021-09-12] MEDS: KETOTIFEN 0.025% OPHTH DROPS 5 ML BTL BOTH EYES SCH (09:26)
[2021-09-12 10:11] LABS: MCV 102.1 fL (80.0-100.0)
[2021-09-12 12:28] LABS: Mixed Population RBC Present
[2021-09-12 12:29] LABS: Large Platelets Present
--- NOTE | 2021-09-14 07:02 | PN ---
PROGRESS NOTE DIAGNOSIS: Sepsis, present on admission. MMODL / IJN: [id number] /
== END 2021-09-12 13:09 | disposition hospice, inpatient (51) | DRG 871 ==
LOC: EC 16:02 → 3SCARD 18:34 → 2SICU 09-02 11:08 → 3SCARD 09-07 14:38
PROVIDERS: ADMIT Family Medicine; ATTEND Family Medicine
PROC: 0DH63UZ Insertion of Feeding Device into Stomach, Percutaneous Approach (ICD-10-PCS; 2021-09-01)
PROC: 3E0G76Z Introduction of Nutritional Substance into Upper GI, Via Natural or Artificial Opening (ICD-10-PCS; 2021-09-01)
PROC: 03HY32Z Insertion of Monitoring Device into Upper Artery, Percutaneous Approach (ICD-10-PCS; principal; 2021-09-02)
PROC: 4A133B1 Monitoring of Arterial Pressure, Peripheral, Percutaneous Approach (ICD-10-PCS; 2021-09-02)
PROC: 4A133J1 Monitoring of Arterial Pulse, Peripheral, Percutaneous Approach (ICD-10-PCS; 2021-09-02)
PROC: 0BH18EZ Insertion of Endotracheal Airway into Trachea, Via Natural or Artificial Opening Endoscopic (ICD-10-PCS; 2021-09-02)
PROC: 5A1945Z Respiratory Ventilation, 24-96 Consecutive Hours (ICD-10-PCS; 2021-09-02)
PROC: 30233N1 Transfusion of Nonautologous Red Blood Cells into Peripheral Vein, Percutaneous Approach (ICD-10-PCS; 2021-09-03)
PROC: 02HV33Z Insertion of Infusion Device into Superior Vena Cava, Percutaneous Approach (ICD-10-PCS; 2021-09-03)
PROC: 3E043XZ Introduction of Vasopressor into Central Vein, Percutaneous Approach (ICD-10-PCS; 2021-09-03)
PROC: 5A09557 Assistance with Respiratory Ventilation, Greater than 96 Consecutive Hours, Continuous Positive Airway Pressure (ICD-10-PCS; 2021-09-04)
DX: A41.81 Sepsis due to Enterococcus (principal); D61.89 Other specified aplastic anemias and other bone marrow failure syndromes; J96.01 Acute respiratory failure with hypoxia; N17.0 Acute kidney failure with tubular necrosis; R65.21 Severe sepsis with septic shock; I50.33 Acute on chronic diastolic (congestive) heart failure; G92.8 Other toxic encephalopathy; E43 Unspecified severe protein-calorie malnutrition; J15.8 Pneumonia due to other specified bacteria; N39.0 Urinary tract infection, site not specified; B37.89 Other sites of candidiasis; I13.0 Hypertensive heart and chronic kidney disease with heart failure and stage 1 through stage 4 chronic kidney disease, or unspecified chronic kidney disease; G91.2 (Idiopathic) normal pressure hydrocephalus; I24.8 Other forms of acute ischemic heart disease; D62 Acute posthemorrhagic anemia; E87.1 Hypo-osmolality and hyponatremia; J45.41 Moderate persistent asthma with (acute) exacerbation; I48.20 Chronic atrial fibrillation, unspecified; Z16.11 Resistance to penicillins; Z16.24 Resistance to multiple antibiotics; J98.11 Atelectasis; J43.9 Emphysema, unspecified; F03.90 Unspecified dementia, unspecified severity, without behavioral disturbance, psychotic disturbance, mood disturbance, and anxiety; N18.30 Chronic kidney disease, stage 3 unspecified; I71.9 Aortic aneurysm of unspecified site, without rupture; G31.9 Degenerative disease of nervous system, unspecified; I70.0 Atherosclerosis of aorta; K94.21 Gastrostomy hemorrhage; J84.10 Pulmonary fibrosis, unspecified; E88.09 Other disorders of plasma-protein metabolism, not elsewhere classified; M48.04 Spinal stenosis, thoracic region; R62.7 Adult failure to thrive; M51.24 Other intervertebral disc displacement, thoracic region; E86.0 Dehydration; D69.59 Other secondary thrombocytopenia; E78.5 Hyperlipidemia, unspecified; E87.6 Hypokalemia; R47.81 Slurred speech; F41.9 Anxiety disorder, unspecified; G89.29 Other chronic pain; B96.20 Unspecified Escherichia coli [E. coli] as the cause of diseases classified elsewhere; F40.240 Claustrophobia; I95.1 Orthostatic hypotension; M47.814 Spondylosis without myelopathy or radiculopathy, thoracic region; I25.10 Atherosclerotic heart disease of native coronary artery without angina pectoris; T38.0X5A Adverse effect of glucocorticoids and synthetic analogues, initial encounter; R01.1 Cardiac murmur, unspecified; B96.5 Pseudomonas (aeruginosa) (mallei) (pseudomallei) as the cause of diseases classified elsewhere; G47.00 Insomnia, unspecified; K21.9 Gastro-esophageal reflux disease without esophagitis; L85.3 Xerosis cutis; I49.3 Ventricular premature depolarization; G47.30 Sleep apnea, unspecified; E87.5 Hyperkalemia; K52.9 Noninfective gastroenteritis and colitis, unspecified; M19.91 Primary osteoarthritis, unspecified site; T50.2X5A Adverse effect of carbonic-anhydrase inhibitors, benzothiadiazides and other diuretics, initial encounter; G62.9 Polyneuropathy, unspecified; R53.81 Other malaise; R73.9 Hyperglycemia, unspecified; R74.01 Elevation of levels of liver transaminase levels; R40.4 Transient alteration of awareness; D72.828 Other elevated white blood cell count; Z20.822 Contact with and (suspected) exposure to COVID-19; Z96.642 Presence of left artificial hip joint; Z86.69 Personal history of other diseases of the nervous system and sense organs; Z79.01 Long term (current) use of anticoagulants; Z79.52 Long term (current) use of systemic steroids; Z79.51 Long term (current) use of inhaled steroids; Z88.1 Allergy status to other antibiotic agents; Z88.8 Allergy status to other drugs, medicaments and biological substances; Z87.440 Personal history of urinary (tract) infections; Z87.442 Personal history of urinary calculi; Z91.81 History of falling; Z90.710 Acquired absence of both cervix and uterus; Z90.89 Acquired absence of other organs; Z98.51 Tubal ligation status; Z87.81 Personal history of (healed) traumatic fracture; Z79.899 Other long term (current) drug therapy; Z98.890 Other specified postprocedural states; Z82.49 Family history of ischemic heart disease and other diseases of the circulatory system; Z86.16 Personal history of COVID-19; Z91.19 Patient's noncompliance with other medical treatment and regimen
CPT/HCPCS: 36410; 36415; 36600; 43246; 70450; 71045; 71046; 72100; 74018; 74176; 76770; 76937; 80048; 80053; 80202; 81001; 82272; 82330; 82565; 82607; 82728; 82747; 82805; 83540; 83550; 83605; 83735; 83880; 83921; 84132; 84145; 84484; 85025; 85027; 85379; 85384; 85610; 85730; 86022; 86140; 86850; 86900; 86901; 86920; 87040; 87070; 87077; 87086; 87186; 87205; 87324; 87635; 93005; 93306; 94002; 94003; 94640; 94660; 94760; 96361; 96374; 96375; 99285

== ENCOUNTER 2021-09-12 12:28 | Inpatient (IN) | payer MEDICAID ==
[2021-09-12] MEDS ORDERED: ATROPINE OPHTH SOLN 1% 5ML BTL SUBLINGUAL PRN (12:32)
[2021-09-12] MEDS ORDERED: ONDANSETRON 4 MG/2 ML VIAL IVP PRN (12:32)
[2021-09-12] MEDS ORDERED: LORazepam 2 MG/ML INJ IV PRN (12:32)
[2021-09-12] MEDS ORDERED: MORPHINE SULFATE (100 MG/2 ML) 100 MG in SODIUM CHLORIDE 0.9% 100 ML IV SCH (12:45)
--- NOTE | 2021-09-12 17:27 | P.DS ---
Providers Date of admission: 09/12/21 13:11 Expected date of discharge: 09/12/21 Attending physician: Beni Rose Primary care physician: Lalo Nguyen [facility] Course: Interval history: I'm rounding for Dr. Lalo Nguyen September 04: ICU: Extubated earlier today. Currently on BiPAP. Lethargic. Sitting of 12/6/30%. PEG tube feeding. Following commands. Edema present. Sinus rhythm with PACs. September 05: ICU: Able to carry out simple conversation. On nasal cannula. Went back into A. fib last night with rapid ventricular rate. PVCs. PEG tube feeding at 30 mL an hour. September 06: ICU: Carrying out simple conversation. Sinus rhythm. PEG tube feeding. September 07: ICU: Patient laying in bed. Awake. Answering simple questions. Tube feeding at 33 mL an hour that is at goal. On IV Lasix. Telemetry sinus rhythm. Beta for congested cough. September 08: 2 feeding at 55 mL an hour. Increase in shortness of breath. On BiPAP. Atrial fibrillation rapid ventricular rate. Did not tolerate applesauce yesterday. Up in a bed. Tired. IV amiodarone started by cardiology. September 11: 2 feeding at goal. Remains short of breath. Not eating. On BiPAP. It is out of atrial fibrillation. Tired. I spoke to Dr. Melissa Mcbride who is currently out of town. His prognosis is poor. I spoke to Dr. Lalo Nguyen the patient is well known felt patient be appropriate for comfort care. I spoke spoke to patient's daughter Analisa Danielson, is coming in to see the patient. I did discuss case about considering hospice. September 12: Several family members present. Patient be admitted to inpatient hospice. Comfort measures. Care was discussed at the bedside. Orders given. Current medications reviewed On examination: VITAL SIGNS: GENERAL APPEARANCE: Laying in bed, on BiPAP EYES: Pupils equal. Conjunctiva normal. NECK: JVD unable to assess. Mass not palpable. RESPIRATORY: Respiratory effort increased. Unable to speak in full sentences, accessory muscles of working, decreased breath sounds prolonged expiration CARDIOVASCULAR: Heart sounds are regular. No edema. ABDOMEN: Soft. Liver and spleen not palpable. No tenderness. No mass palpable. Psychiatry: Difficult to answer questions as short of breath. Neurological: Cranial nerves grossly intact. Following simple commands. INVESTIGATIONS, reviewed in the clinical context: September 11: WBC 3.5 hemoglobin 7 platelets 83 potassium 3.2 creatinine 0.44 September 10: WBC 3.4 hemoglobin 8.1 platelets 74 potassium 2.9 BUN 18 creatinine 0.39 September 07: WBC 4.4 hemoglobin 8.9 platelets 38 potassium 4.1 creatinine 0.34 albumin 1.9 September 05: White count 8.2 hemoglobin 9.4 platelets 45 potassium 4.3 BUN 20 creatinine 0.48 AST 55 ALT 119 White count 10.9 hemoglobin 9 platelets 49 sodium 140 potassium 3 BUN 28 creatinine 0.61 AST 55 ALT 136 Assessment and plan: -Paroxysmal atrial fibrillation currently with rapid ventricular rate. Uncontrolled Eliquis 5 mg twice a day. Changed over to by mouth amiodarone. Cardizem by mouth -Acute hypoxic respiratory failure: : Slow to respond Requiring BiPAP -Sepsis IV Zosyn -Septic shock: Recovered Patient received levo fed -Acute kidney injury secondary to hemodynamic ATN.: Improved Creatinine had peaked at 1.31. -Moderate persistent Asthma, exacerbation: Slow to respond Symbicort 160/4.52 puffs twice a day DuoNeb -Mild cognitive impairment from early dementia -Hyperlipidemia -Acute blood loss anemia secondary to bleeding at PEG tube site -Essential hypertension Currently off antihypertensive -Nephrolithiasis, asymptomatic -Primary osteoarthritis Pain control as needed -Chronic gait dysfunction uses a walker Fall precautions -Thrombocytopenia, likely from underlying infection. Patient is on eliquis. Follow CBC -Acute medical debility -No code Disposition: Being admitted to inpatient hospice/GIP Plan - Discharge Summary New Discharge Prescriptions: No Action Montelukast Sodium [Singulair] 10 mg PO HS Metoprolol Succinate (ER) [Toprol XL] 25 mg PO BID Atorvastatin [Lipitor] 20 mg PO HS Melatonin 10 mg PO HS Pantoprazole [Protonix] 40 mg PO DAILY Megestrol [Megace] 40 mg PO BID Amiodarone [Cordarone] See Taper PO DIRECTED Albuterol Sulfate [Ventolin HFA] 2 puff INHALATION RT-Q4H PRN PRN Reason: Shortness Of Breath predniSONE 10 mg PO DAILY Nitroglycerin Sl Tabs [Nitrostat] 0.4 mg SL Q5M PRN PRN Reason: Chest Pain Apixaban [Eliquis] 5 mg PO BID Potassium Chloride ER [K-Dur 20] 20 meq PO DAILY Budesonide-Formot 160-4.5 Mcg [Symbicort 160-4.5 Mcg Inhaler] 2 puff INHALATION RT-BID gm Ondansetron [Zofran] 4 mg PO Q8HR PRN PRN Reason: Nausea HYDROcodone/APAP 5-325MG [[place] 5-325] 1 tab PO TID PRN PRN Reason: Pain Discharge Medication List Montelukast Sodium [Singulair] 10 mg PO HS 10/01/19 [History] Albuterol Sulfate [Ventolin HFA] 2 puff INHALATION RT-Q4H PRN 05/05/20 [History] Metoprolol Succinate (ER) [Toprol XL] 25 mg PO BID 02/10/21 [History] Nitroglycerin Sl Tabs [Nitrostat] 0.4 mg SL Q5M PRN 05/22/21 [History] predniSONE 10 mg PO DAILY 05/22/21 [History] Apixaban [Eliquis] 5 mg PO BID 06/10/21 [History] Atorvastatin [Lipitor] 20 mg PO HS 06/10/21 [History] Melatonin 10 mg PO HS 06/10/21 [History] Pantoprazole [Protonix] 40 mg PO DAILY 06/10/21 [History] Potassium Chloride ER [K-Dur 20] 20 meq PO DAILY 06/10/21 [History] Budesonide-Formot 160-4.5 Mcg [Symbicort 160-4.5 Mcg Inhaler] 2 puff INHALATION RT-BID gm 06/11/21 [Rx] Megestrol [Megace] 40 mg PO BID 07/22/21 [History] Ondansetron [Zofran] 4 mg PO Q8HR PRN 07/22/21 [History] Amiodarone [Cordarone] See Taper PO DIRECTED 08/11/21 [History] HYDROcodone/APAP 5-325MG [[place] 5-325] 1 tab PO TID PRN 08/11/21 [History]
[2021-09-12 18:48] VITALS: PULSE 0; RESP 0
== END 2021-09-12 20:00 | disposition expired | DRG 951 ==
LOC: 3SCARD 13:11
PROVIDERS: ADMIT Hospitalist; ATTEND Hospitalist
DX: Z51.5 Encounter for palliative care (principal); J96.01 Acute respiratory failure with hypoxia; N17.0 Acute kidney failure with tubular necrosis; R65.21 Severe sepsis with septic shock; A41.9 Sepsis, unspecified organism; J45.41 Moderate persistent asthma with (acute) exacerbation; D62 Acute posthemorrhagic anemia; Z43.1 Encounter for attention to gastrostomy; F03.90 Unspecified dementia, unspecified severity, without behavioral disturbance, psychotic disturbance, mood disturbance, and anxiety; D69.59 Other secondary thrombocytopenia; I48.0 Paroxysmal atrial fibrillation; Z66 Do not resuscitate; E78.5 Hyperlipidemia, unspecified; I49.3 Ventricular premature depolarization; I10 Essential (primary) hypertension; N20.0 Calculus of kidney; M19.91 Primary osteoarthritis, unspecified site; R26.9 Unspecified abnormalities of gait and mobility